=== PATIENT | female | born 1955 | race Caucasian/White ===

== ENCOUNTER 2016-04-01 11:28 | Inpatient (IN) | payer MEDICARE, BC, OTHER ==
--- NOTE | 2016-04-01 12:06 | ED ---
General Adult HPI - General Chief complaint: Dizziness Stated complaint: Dizzy Time Seen by Provider: 04/01/16 11:35 Source: patient, RN notes reviewed, old records reviewed Mode of arrival: EMS Limitations: no limitations - History of Present Illness Initial comments: This is a 60-year-old female here for evaluation. Patient presented today for evaluation of low heart rate, patient is history of overrated at this time is presenting with low heart rate and symptomatic dizziness, weakness, is feelings of passing out. Patient is on dialysis has history of dialysis and was at dialysis today when the symptoms began to show. Denies any chest pain no shortness of breath no abdominal pain. Patient states his symptoms are usually related to the level of her potassium. - Related Data Home Medications Medication Instructions Recorded Confirmed Famotidine [Pepcid] 20 mg PO DAILY 04/29/14 02/27/16 Furosemide [Lasix] 80 mg PO BID 08/04/14 02/27/16 Levothyroxine Sodium [Synthroid] 150 mcg PO [id number] 08/04/14 02/27/16 HYDROcodone/APAP 10-325MG [[place] 1 tab PO Q4H PRN 07/05/15 02/27/16 10-325] Insulin Aspart [NovoLOG] See Protocol SQ AC-TID 07/05/15 02/27/16 Prochlorperazine [Compazine] 5 - 10 mg PO Q8HR PRN 07/05/15 02/27/16 amLODIPine [Norvasc] 10 mg PO HS 07/05/15 02/27/16 clonazePAM [KlonoPIN] 0.5 mg PO BID 07/05/15 02/27/16 Aspirin EC [Ecotrin Low Dose] 81 mg PO DAILY 01/01/16 02/27/16 Escitalopram [Lexapro] 20 mg PO DAILY 01/01/16 02/27/16 Fosrenol 1000mg 1,000 mg PO AC-BID 01/01/16 02/27/16 Insulin Aspart (For Pump) [NovoLOG 0.01 unit SQ-PUMP CONTINUOUS 01/01/16 (For Pump)] Lactulose 10 gm PO DAILY PRN 01/01/16 02/27/16 Levothyroxine Sodium [Synthroid] 300 mcg PO DUBON 01/01/16 02/27/16 Nystatin 1 applic TOPICAL BID PRN 01/01/16 02/27/16 Nystatin [Nystop] 1 applic TOPICAL BID PRN 01/01/16 02/27/16 busPIRone HCL 15 mg PO BID 01/01/16 02/27/16 Calcium Acetate [Phoslo] 1,334 mg PO DIRECTED 02/27/16 02/27/16 Calcium Acetate [Phoslo] 2,001 mg PO TID-W/MEALS 02/27/16 02/27/16 Previous Rx's Medication Instructions Recorded Clopidogrel [Plavix] 75 mg PO DAILY tab 05/10/14 Nitroglycerin Sl Tabs [Nitrostat] 0.4 mg SUBLINGUAL Q5M PRN #0 tab 05/10/14 Atorvastatin [Lipitor] 80 mg PO DAILY #30 tab 01/04/16 Allergies Allergy/AdvReac Type Severity Reaction Status Date / Time adhesive Allergy Rash/Hives Verified 02/27/16 13:32 metformin Allergy SUGAR Verified 02/27/16 13:32 LEVEL INCREASE Penicillins Allergy Rash/Hives Verified 02/27/16 13:32 Review of Systems ROS Statement: Those systems with pertinent positive or pertinent negative responses have been documented in the HPI. ROS Other: All systems not noted in ROS Statement are negative. Past Medical History Past Medical History: Coronary Artery Disease (CAD), Diabetes Mellitus, Dialysis , Hyperlipidemia, Hypertension, Myocardial Infarction (NV), Osteoarthritis (OA) , Thyroid Disorder Additional Past Medical History / Comment(s): pt's stated "pt has had 16 mi's". ischemic cardiomyopathy. NV in 2005 and September 2013, 12/29/15 STRESS WNL, Hepatitis A, ALLERGIC rhinitis,NV,ESRD/DIALYSIS, CARDIO-PULMONARY ARREST , hypertensive nephrosclerosis, Hepatitis A,Vitamin D deficiency Last Myocardial Infarction Date:: 09/2013 History of Any Multi-Drug Resistant Organisms: MRSA Date of last positivie culture/infection: 2011 MDRO Source:: blood Past Surgical History: Adenoidectomy, Appendectomy, Cholecystectomy, Heart Catheterization With Stent, Hysterectomy, Tonsillectomy Additional Past Surgical History / Comment(s): mary cataracts, LAP-BAND 2004, Laparoscopic cholecystectomy, FIBULA FX has metal pins in place,Left shoulder surgery, Hemodialysis Cataract bilateral with IOL, fistula and sx to" reroute it ",gets dialysis fri-fri-fri. has insulin pump Past Anesthesia/Blood Transfusion Reactions: Motion Sickness, Postoperative Nausea & Vomiting (PONV) Date of Last Stent Placement:: 2014 Past Psychological History: Anxiety, Bipolar, Depression Additional Psychological History / Comment(s): pt lives at home with her spouse uses a walker in house and w/c outdoors. Smoking Status: Never smoker Past Alcohol Use History: Rare Past Drug Use History: None Reported - Past Family History Mother Family Medical History: Congestive Heart Failure (CHF), Diabetes Mellitus, Hypertension Father History Unknown: Yes Family Medical History: Diabetes Mellitus Brother(s) Family Medical History: Diabetes Mellitus, Hyperlipidemia Additional Family Medical History / Comment(s): Hypertension chronic kidney disease General Exam Limitations: no limitations General appearance: alert, in no apparent distress Head exam: Present: atraumatic, normocephalic, normal inspection Eye exam: Present: normal appearance, PERRL, EOMI. Absent: scleral icterus, conjunctival injection, periorbital swelling ENT exam: Present: normal exam, mucous membranes moist Neck exam: Present: normal inspection. Absent: tenderness, meningismus, lymphadenopathy Respiratory exam: Present: normal lung sounds bilaterally. Absent: wheezes, rales, rhonchi, stridor Cardiovascular Exam: Present: bradycardia, normal heart sounds. Absent: systolic murmur, diastolic murmur, rubs, gallop, clicks GI/Abdominal exam: Present: soft, normal bowel sounds. Absent: distended, tenderness, guarding, rebound, rigid Extremities exam: Present: normal inspection, full ROM, normal capillary refill. Absent: tenderness, pedal edema, joint swelling, calf tenderness Back exam: Present: normal inspection Neurological exam: Present: alert, oriented X3, CN II-XII intact Psychiatric exam: Present: normal affect, normal mood Skin exam: Present: warm, dry, intact, normal color. Absent: rash Course Vital Signs 04/01/16 11:39 Temperature 98.7 F Pulse Rate 44 L Respiratory 18 Rate Blood Pressure 123/46 O2 Sat by Pulse 98 Oximetry - Reevaluation(s) Reevaluation #1: 04/01/16 12:58 Patient still remains feeling weak, heart rate still in the 40s, maintaining blood pressure but still lightheaded and dizzy EKG Findings - EKG Comments: EKG Findings:: EKG shows sinus bradycardia rate 36, QRS 140, QTC 417 Medical Decision Making - Medical Decision Making 5-year-old female here for evaluation of bradycardia symptomatically bradycardia without syncope. Weakness and fatigue with dizziness, patient has had bradycardia in the past. The potassium, patient is dialysis patient, and from dialysis today, patient will be admitted for cardiopulmonary collapse, monitoring of electrolytes and heart rate. - Lab Data Result diagrams: 04/01/16 12:17 Lab Results 04/01/16 Range/Units 12:17 WBC 8.6 (3.8-10.6) k/uL RBC 3.86 (3.80-5.40) m/uL Hgb 11.3 L (11.4-16.0) gm/dL Hct 37.5 (34.0-46.0) % MCV 97.1 (80.0-100.0) fL MCH 29.4 (25.0-35.0) pg MCHC 30.3 L (31.0-37.0) g/dL RDW 16.0 H (11.5-15.5) % Plt Count 229 (150-450) k/uL Neutrophils % 81 % Lymphocytes % 10 % Monocytes % 6 % Eosinophils % 3 % Basophils % 0 % Neutrophils # 6.9 (1.3-7.7) k/uL Lymphocytes # 0.8 L (1.0-4.8) k/uL Monocytes # 0.5 (0-1.0) k/uL Eosinophils # 0.2 (0-0.7) k/uL Basophils # 0.0 (0-0.2) k/uL Hypochromasia Slight Anisocytosis Slight Macrocytosis Slight Critical Care Time Critical Care Time: Yes Total Critical Care Time: 31 Disposition Clinical Impression: Bradycardia, Sick sinus syndrome, Weakness generalized Disposition: ADMITTED IP TO THIS [facility] Condition: Fair Referrals: Kimberli Gar MD [Primary Care Provider] - 1-2 days
[2016-04-01 12:35] LABS: Anisocytosis Slight; Basophils % (A) 0 %; CH 30.1; CHCM 31.1; Eosinophils # (A) 0.2 k/uL (0-0.7); Eosinophils % (A) 3 %; HCT 37.5 % (34.0-46.0); HDW 2.72; HGB 11.3 gm/dL (11.4-16.0); Hypochromasia Slight; Luc # (Auto) 0.11; Luc % (Auto) 1; Lymphocytes # (A) 0.8 k/uL (1.0-4.8); Lymphocytes % (A) 10 %; MCH 29.4 pg (25.0-35.0); MCHC 30.3 g/dL (31.0-37.0); MCV 97.1 fL (80.0-100.0); Macrocytosis Slight; Monocytes # (A) 0.5 k/uL (0-1.0); Monocytes % (A) 6 %; Neutrophils # (A) 6.9 k/uL (1.3-7.7); Neutrophils % (A) 81 %; RBC 3.86 m/uL (3.80-5.40); WBC 8.6 k/uL (3.8-10.6); WBC (Perox) 9.19
--- NOTE | 2016-04-01 12:42 | XR ---
EXAMINATION TYPE: XR chest 2V DATE OF EXAM: 04/01/2016 12:36 PM COMPARISON: 02/28/2016 INDICATION: Weakness, potassium abnormality TECHNIQUE: Frontal and lateral views of the chest are obtained. FINDINGS: The heart size is normal. The pulmonary vasculature is normal. The lungs are clear. Previous right perihilar infiltrate has resolved IMPRESSION: 1. No acute pulmonary process.
[2016-04-01 13:03] LABS: Creatine Kinase 43 U/L (30-135)
[2016-04-01 13:30] LABS: Creatine Kinase MB 0.6 ng/mL (0.0-2.4); Troponin I <0.012 ng/mL (0.000-0.034)
[2016-04-01 14:08] LABS: Calcium 8.7 mg/dL (8.4-10.2); Magnesium 2.9 mg/dL (1.6-2.3); Phosphorous 4.8 mg/dL (2.5-4.5); Total Bilirubin 0.7 mg/dL (0.2-1.3)
[2016-04-01 14:13] LABS: Potassium 6.5 mmol/L (3.5-5.1)
[2016-04-01] MEDS ORDERED: DEXTROSE 50%-WATER 50 ML SYRINGE IVP STA (14:39)
[2016-04-01] MEDS ORDERED: INSULIN REGULAR 100 UNIT/ML VIAL IV ONE (14:39)
[2016-04-01] MEDS ORDERED: SODIUM POLYSTYRENE SULFONATE 15 GM/60 ML BOTTLE PO STA (14:39)
[2016-04-01] MEDS ORDERED: LACTULOSE 20 GM/30 ML CUP PO PRN (14:49)
[2016-04-01] MEDS ORDERED: NITROGLYCERIN SL TABS 0.4 MG TAB SUBLINGUAL PRN (14:49)
--- NOTE | 2016-04-01 14:49 | P.HPIM ---
History of Present Illness H&P Date: 04/01/16 Chief Complaint: Lightheaded, severe bradycardia heart rate in the 30s The patient is a pleasant 59-year-old female patient who sees Dr. Gar and Dr. JAE Jc as an outpatient with a past medical history significant for coronary artery disease and prior coronary artery stenting with the patient underwent stenting of the proximal left anterior descending artery as well as ramus intermedius in April 2014, diabetes type 2, end stage renal disease on hemodialysis Friday, as well as dyslipidemia She presented to the emergency room secondary to lightheadedness and dizziness. Prior to be she was on her way to her usual dialysis time Friday and was complaining of lightheadedness when standing up did not resolve when she was sitting down. Patient did not pass out patient to complain of any chest pain. Patient denies any palpitations however she was worried about her heart rate being low. In the dialysis unit prior to starting her therapies. Her heart rate was in the 40s they have sent her to the emergency room for further evaluation and treatment. Dialysis was initiated today. She normally runs on the high 50s being followed closely by Dr. JAE Jc no plans for any pacemaker from that time. Potassium use with culprit for her bradycardia. She has some GI losses in the form of diarrhea 2 days prior to admission. Diarrhea resolved coming into the emergency room as of yesterday. Patient did not miss any of her dialysis her last dialysis was Friday, scheduled. In the emergency room potassium was 6.5, sodium 134, creatinine 8.3, hemoglobin 11.3, double basic count 8.6. ekg show Patient will be admitted to selective care, nephrology and cardiology consultations. It is Kayexelate will given today as per ER team, or patient will be dialyzed later today Review of Systems Constitutional: Reports as per HPI, Denies anorexia, Denies chills, Denies chronic headaches, Denies chronic pain, Denies daytime sleepiness, Denies fatigue, Denies fever, Denies lethargy, Denies malaise, Denies night sweats, Denies poor appetite, Denies sweats, Denies weakness, Denies weight gain, Denies weight loss Ears, nose, mouth and throat: Reports as per HPI, Denies ant. neck pain, Denies bleeding gums, Denies dental pain, Denies dysphagia, Denies epistaxis, Denies headache, Denies hoarseness, Denies mouth pain, Denies nasal congestion, Denies nasal discharge, Denies neck fullness/pressure, Denies neck lump, Denies nose pain, Denies odynophagia, Denies post-nasal drip, Denies sinus pain, Denies sinus pressure, Denies swelling in mouth, Denies swelling in throat, Denies sore throat, Denies vertigo, Denies voice changes Cardiovascular: Reports as per HPI, Reports lightheadedness Respiratory: Reports as per HPI, Denies congestion, Denies cough, Denies cough with sputum, Denies dyspnea, Denies excessive sputum, Denies hemoptysis, Denies home oxygen, Denies pain, Denies pain on inspiration, Denies pleurisy, Denies respiratory infections, Denies sleep apnea, Denies snoring, Denies wheezing Gastrointestinal: Reports as per HPI, Denies abdominal pain, Denies belching, Denies bloating, Denies BRBPR, Denies change in bowel habits, Denies coffee ground emesis, Denies constipation, Denies diarrhea, Denies dyspepsia, Denies early satiety, Denies excessive gas, Denies heartburn, Denies hematemesis, Denies hematochezia, Denies indigestion, Denies jaundice, Denies lactose intolerance, Denies loss of appetite, Denies melena, Denies nausea, Denies vomiting Genitourinary: Reports as per HPI, Denies abnormal vaginal bleeding, Denies decreased libido, Denies difficulty conceiving, Denies difficulty voiding, Denies dysmenorrhea, Denies dyspareunia, Denies dysuria, Denies flank pain, Denies genital sores, Denies hematuria, Denies hot flashes, Denies incomplete emptying, Denies kidney stones, Denies menorrhagia, Denies mixed incontinence, Denies nocturia, Denies pelvic pain, Denies post void dribbling, Denies , Denies prolapse symptoms, Denies stress incontinence, Denies urge incontinence , Denies urgency, Denies urinary frequency, Denies vaginal discharge, Denies vaginal dryness, Denies vaginal itching, Denies vaginal odor Menstruation: Reports as per HPI, Reports postmenopausal, Denies amenorrhea, Denies amenorrhea on BC, Denies currently menstrual, Denies cycle < 21 days, Denies cycle > 35 days, Denies cycle variable, Denies menses 1-7 days, Denies menses 8 or > days, Denies menses variable, Denies period heavy, Denies period light, Denies period normal, Denies period spotting, Denies post hysterectomy, Denies premenarcheal Musculoskeletal: Reports as per HPI Integumentary: Reports as per HPI, Denies acne, Denies boils, Denies brittle nails, Denies change in hair/nails, Denies color changes, Denies darkening of skin, Denies depigmentation, Denies dryness, Denies foot/leg ulcers, Denies growths, Denies hirsutism, Denies lesions, Denies onychomycosis, Denies pruritus , Denies rash, Denies sores, Denies striae, Denies unusual bruising, Denies wounds Neurological: Reports as per HPI, Denies aphasia, Denies ataxia, Denies balance difficulties, Denies burning pain, Denies change in mentation, Denies change in smell/taste, Denies change in speech, Denies confusion, Denies convulsions, Denies double vision, Denies gait dysfunction, Denies head injury, Denies headaches, Denies hearing difficulties, Denies lack of coordination, Denies loss of vision, Denies memory loss, Denies migraines, Denies motor disturbance, Denies numbness, Denies paralysis, Denies paresthesias, Denies seizures, Denies sensory deficit, Denies spasticity, Denies syncope, Denies tic, Denies tingling , Denies transient paralysis, Denies tremors, Denies vertigo, Denies weakness, Denies visual changes Psychiatric: Reports as per HPI, Denies anhedonia, Denies anxiety, Denies anxiety attacks, Denies change in appetite, Denies change in libido, Denies change in sleep habits, Denies confusion, Denies depression, Denies difficulty concentrating, Denies disorientation, Denies hallucinations, Denies hopelessness , Denies hypersomnia, Denies insomnia, Denies irritability, Denies memory loss, Denies mood swings, Denies paranoia, Denies sadness/tearfulness, Denies sleep disturbances, Denies suicidal ideation Endocrine: Reports as per HPI, Denies cold intolerance, Denies deepening of the voice, Denies excessive sweating, Denies excessive thirst, Denies fatigue, Denies flushing, Denies heat intolerance, Denies high blood sugars, Denies increase in ring/shoe/hat size, Denies low blood sugars, Denies nocturia, Denies palpitations, Denies polydipsia, Denies polyphagia, Denies polyuria, Denies proptosis, Denies recent glucocorticoid use, Denies thyroid mass, Denies weight change Hematologic/Lymphatic: Reports as per HPI, Denies easy bleeding, Denies easy bruising, Denies lymphadenopathy, Denies lymphedema, Denies thrombophilia Allergic/Immunologic: Reports as per HPI, Denies allergic rhinitis, Denies anaphylaxis, Denies angioedema, Denies gluten intolerance, Denies persistent infections, Denies seasonal allergies, Denies urticaria, Denies wheezing Past Medical History Past Medical History: Coronary Artery Disease (CAD), Diabetes Mellitus, Dialysis , Hyperlipidemia, Hypertension, Myocardial Infarction (TN), Osteoarthritis (OA) , Thyroid Disorder Additional Past Medical History / Comment(s): pt's stated "pt has had 16 mi's". ischemic cardiomyopathy. TN in 2005 and September 2013, 12/29/15 STRESS WNL, Hepatitis A, ALLERGIC rhinitis,TN,ESRD/DIALYSIS, CARDIO-PULMONARY ARREST , hypertensive nephrosclerosis, Hepatitis A,Vitamin D deficiency Last Myocardial Infarction Date:: 09/2013 History of Any Multi-Drug Resistant Organisms: MRSA Date of last positivie culture/infection: 2011 MDRO Source:: blood Past Surgical History: Adenoidectomy, Appendectomy, Cholecystectomy, Heart Catheterization With Stent, Hysterectomy, Tonsillectomy Additional Past Surgical History / Comment(s): mary cataracts, LAP-BAND 2004, Laparoscopic cholecystectomy, FIBULA FX has metal pins in place,Left shoulder surgery, Hemodialysis Cataract bilateral with IOL, fistula and sx to" reroute it ",gets dialysis fri-fri-fri. has insulin pump Past Anesthesia/Blood Transfusion Reactions: Motion Sickness, Postoperative Nausea & Vomiting (PONV) Date of Last Stent Placement:: 2014 Past Psychological History: Anxiety, Bipolar, Depression Additional Psychological History / Comment(s): pt lives at home with her spouse uses a walker in house and w/c outdoors. Smoking Status: Never smoker Past Alcohol Use History: Rare Past Drug Use History: None Reported - Past Family History Mother Family Medical History: Congestive Heart Failure (CHF), Diabetes Mellitus, Hypertension Father History Unknown: Yes Family Medical History: Diabetes Mellitus Brother(s) Family Medical History: Diabetes Mellitus, Hyperlipidemia Additional Family Medical History / Comment(s): Hypertension chronic kidney disease Medications and Allergies Home Medications Medication Instructions Recorded Confirmed Type Famotidine [Pepcid] 20 mg PO DAILY 04/29/14 04/01/16 History Furosemide [Lasix] 80 mg PO BID 08/04/14 04/01/16 History Levothyroxine Sodium [Synthroid] 150 mcg PO MOTUWETHFRSA 08/04/14 04/01/16 History HYDROcodone/APAP 10-325MG [Manor 1 tab PO Q4H PRN 07/05/15 04/01/16 History 10-325] Prochlorperazine [Compazine] 5 - 10 mg PO Q8HR PRN 07/05/15 04/01/16 History amLODIPine [Norvasc] 10 mg PO HS 07/05/15 04/01/16 History clonazePAM [KlonoPIN] 0.5 mg PO BID 07/05/15 04/01/16 History Aspirin EC [Ecotrin Low Dose] 81 mg PO DAILY 01/01/16 04/01/16 History Escitalopram [Lexapro] 20 mg PO DAILY 01/01/16 04/01/16 History Fosrenol 1000mg 1,000 mg PO AC-BID 01/01/16 04/01/16 History Insulin Aspart (For Pump) [NovoLOG 0.01 unit SQ-PUMP CONTINUOUS 01/01/16 History (For Pump)] Lactulose 10 gm PO DAILY PRN 01/01/16 04/01/16 History Levothyroxine Sodium [Synthroid] 300 mcg PO DUBON 01/01/16 04/01/16 History Nystatin 1 applic TOPICAL BID PRN 01/01/16 04/01/16 History Nystatin [Nystop] 1 applic TOPICAL BID PRN 01/01/16 04/01/16 History busPIRone HCL 15 mg PO BID 01/01/16 04/01/16 History Calcium Acetate [Phoslo] 1,334 mg PO DIRECTED 02/27/16 04/01/16 History Calcium Acetate [Phoslo] 2,001 mg PO TID-W/MEALS 02/27/16 04/01/16 History Liquacel 1 dose PO DAILY 04/01/16 04/01/16 History Metoprolol Tartrate [Lopressor] 12.5 mg PO QAM 04/01/16 04/01/16 History Renaplex-D 1 tab PO DAILY 04/01/16 04/01/16 History lamoTRIgine [LaMICtal] 75 mg PO BID 04/01/16 04/01/16 History Allergies Allergy/AdvReac Type Severity Reaction Status Date / Time adhesive Allergy Rash/Hives Verified 02/27/16 13:32 metformin Allergy SUGAR Verified 02/27/16 13:32 LEVEL INCREASE Penicillins Allergy Rash/Hives Verified 02/27/16 13:32 Physical Exam Vitals: Vital Signs Pulse Resp BP Pulse Ox 04/01/16 13:12 45 L 20 119/45 98 - Constitutional General appearance: cooperative, morbidly obese - EENT Eyes: anicteric sclerae, EOMI, PERRLA, dentition normal, normal appearance ENT: no hard of hearing, hearing grossly normal, NA/AT, normal oropharynx, no other, no pharyngeal erythema, no thrush, no tonsillar exudates, no tonsillar swelling - Neck Neck: no lymphadenopathy, normal ROM, no other, no rigidity, no stridor, no thyromegaly - Respiratory Respiratory: bilateral: CTA, negative: dullness, rales, rhonchi, wheezing, prolonged expiration - Cardiovascular Heart rate: 36 Rhythm: regular Heart sounds: normal: S1, S2 Abnormal Heart Sounds: no systolic murmur, no diastolic murmur, no rub, no S3 Gallop, no S4 Gallop, no click, no other leg Peripheral Edema: bilateral: Trace - Gastrointestinal General gastrointestinal: normal bowel sounds, soft - Integumentary Integumentary: normal, normal turgor - Neurologic Neurologic: CNII-XII intact, focal deficits (none) - Musculoskeletal Musculoskeletal: generalized weakness, strength equal bilaterally - Psychiatric Psychiatric: A&O x's 3, appropriate affect, intact judgment & insight Results CBC & Chem 7: 04/01/16 12:17 04/01/16 13:23 Labs: Abnormal Lab Results - Last 24 Hours (Table) 04/01/16 Range/Units 13:23 Sodium 134 L (137-145) mmol/L Potassium 6.5 H* (3.5-5.1) mmol/L BUN 59 H (7-17) mg/dL Creatinine 8.34 H* (0.52-1.04) mg/dL Glucose 157 H (74-99) mg/dL Phosphorus 4.8 H (2.5-4.5) mg/dL Magnesium 2.9 H (1.6-2.3) mg/dL Laboratory Results WBC 8.6 k/uL (3.8-10.6) 04/01/16 12: RBC 3.86 m/uL (3.80-5.40) 04/01/16 12:17 Hgb 11.3 gm/dL (11.4-16.0) L 04/01/16 12: Hct 37.5 % (34.0-46.0) 04/01/16 12: MCV 97.1 fL (80.0-100.0) 04/01/16 12: MCH 29.4 pg (25.0-35.0) 04/01/16 12: MCHC 30.3 g/dL (31.0-37.0) L 04/01/16 12: RDW 16.0 % (11.5-15.5) H 04/01/16 12: Plt Count 229 k/uL (150-450) 04/01/16 12:17 Neutrophils % 81 % 04/01/16 12:17 Lymphocytes % 10 % 04/01/16 12:17 Monocytes % 6 % 04/01/16 12:17 Eosinophils % 3 % 04/01/16 12:17 Basophils % 0 % 04/01/16 12:17 Neutrophils # 6.9 k/uL (1.3-7.7) 04/01/16 12:17 Lymphocytes # 0.8 k/uL (1.0-4.8) L 04/01/16 12: Monocytes # 0.5 k/uL (0-1.0) 04/01/16 12:17 Eosinophils # 0.2 k/uL (0-0.7) 04/01/16 12:17 Basophils # 0.0 k/uL (0-0.2) 04/01/16 12:17 Hypochromasia Slight 04/01/16 12:17 Anisocytosis Slight 04/01/16 12:17 Macrocytosis Slight 04/01/16 12:17 Sodium 134 mmol/L (137-145) L 04/01/16 13:23 Potassium 6.5 mmol/L (3.5-5.1) H* 04/01/16 13:23 Chloride 98 mmol/L (98-107) 04/01/16 13:23 Carbon Dioxide 23 mmol/L (22-30) 04/01/16 13:23 Anion Gap 13 mmol/L 04/01/16 13:23 BUN 59 mg/dL (7-17) H 04/01/16 13:23 Creatinine 8.34 mg/dL (0.52-1.04) H* 04/01/16 13:23 Est GFR (MDRD) Af Amer 6 (>60 ml/min/1.73 sqM) 04/01/16 13:23 Est GFR (MDRD) Non-Af 5 (>60 ml/min/1.73 sqM) 04/01/16 13:23 Glucose 157 mg/dL (74-99) H 04/01/16 13:23 Calcium 8.7 mg/dL (8.4-10.2) 04/01/16 13:23 Phosphorus 4.8 mg/dL (2.5-4.5) H 04/01/16 13:23 Magnesium 2.9 mg/dL (1.6-2.3) H 04/01/16 13:23 Total Bilirubin 0.7 mg/dL (0.2-1.3) 04/01/16 13:23 AST 33 U/L (14-36) 04/01/16 13:23 ALT 25 U/L (9-52) 04/01/16 13:23 Alkaline Phosphatase 80 U/L (38-126) 04/01/16 13:23 Ammonia <9 umol/L (<30) 04/01/16 13:23 Total Creatine Kinase 43 U/L (30-135) 04/01/16 12:17 CK-MB (CK-2) 0.6 ng/mL (0.0-2.4) 04/01/16 12:17 CK-MB (CK-2) Rel Index 1.4 04/01/16 12:17 Troponin I <0.012 ng/mL (0.000-0.034) 04/01/16 12:17 Total Protein 7.0 g/dL (6.3-8.2) 04/01/16 13:23 Albumin 3.9 g/dL (3.5-5.0) 04/01/16 13:23 Thrombosis Risk Factor Assmnt - DVT/VTE Prophylaxis DVT/VTE Prophylaxis: Pharmacologic Prophylaxis ordered - Choose All That Apply Each Factor Represents 1 point: Obesity (BMI >25), Varicose veins Each Risk Factor Represents 2 Points: Age 61-74 years, Patient confined to bed Thrombosis Risk Factor Assessment Total Risk Factor Score: 6 Assessment and Plan Plan: 1. Lightheadedness with bradycardia, sick sinus syndrome, symptomatic. Patient currently requires adjustments of her hyperkalemia, Kayexalate was given emergency room, patient would be seen consultation by cardiology and nephrology for the scheduled dialysis. Patient might need emergent dialysis she would her symptoms persist. Patient will be monitored in the selective care depending on her potassium levels. ICU requires 7.5 or above potassium levels per protocol. Standby for a temporary pacemaker 2. Symptomatic hyperkalemia secondary to end-stage renal disease maintained on hemodialysis. Kayexalate, and dialysis to the remediate the current Abnormality 2. CAD: Post PCI with angioplasty and stent to stent placement or primary this year had been seeing cardiology Dr. DOLLY Jc regular basis . During this hospitalization upon discharge no medication changes were made she is to continue on double antiplatelet agents statins and beta blockers. 3 chronic kidney disease on hemodialysis 3 times a week consult nephrology continue dialysis as outpatient to resume treatment as scheduled tomorrow Friday schedule. 4 type 2 diabetes on insulin pump: Continue insulin via pump continue Accu-Chek with sliding scales coverage as well. 5 hyperlipidemia: Continue Lipitor at 40 mg daily changes were made. 6 asthma/COPD: Continue Pulmicort along with DuoNeb 4 times a day. 7 hypothyroidism: Continue levothyroxine with 50 g daily. 8. Known history off anxiety and depression are stable on Lexapro and BuSpar along with Clonopin no changes were made 9 GERD/GI prophylaxis: Continue Pepcid 20 mg daily 10. Hypertensive cardiac vessel disease on amlodipine 10 mg daily Lasix 80 mg twice a day lisinopril 40 mg at bedtime. 11 Chronic pain syndrome: Resume hydrocodone
[2016-04-01] MEDS ORDERED: Insulin Aspart (For Pump) 100 UNIT/ML VIAL SQ-PUMP SCH (15:00)
[2016-04-01] MEDS ORDERED: CALCIUM ACETATE 667 MG CAP PO PRN (15:00)
[2016-04-01 15:02] LABS: Glucose,Whole Blood 140 mg/dL (75-99)
[2016-04-01] MEDS: FAMOTIDINE 20 MG TAB PO SCH (16:16)
[2016-04-01] MEDS: ESCITALOPRAM 20 MG TAB PO SCH (16:16)
[2016-04-01] MEDS: LEVOTHYROXINE 75 MCG TAB PO SCH (16:16)
[2016-04-01] MEDS: CLOPIDOGREL 75 MG TAB PO SCH (16:16)
[2016-04-01] MEDS: ATORVASTATIN 80 MG TAB PO SCH (16:17)
[2016-04-01] MEDS: HYDROcodone/APAP 10-325MG 1 EACH TAB PO PRN (16:21)
[2016-04-01] MEDS: FUROSEMIDE 80 MG TAB PO SCH (16:22)
[2016-04-01] MEDS: CALCIUM ACETATE 667 MG CAP PO SCH (16:24)
[2016-04-01] MEDS: SEVELAMER 800 MG TAB PO SCH (16:25)
[2016-04-01 17:14] LABS: Glucose,Whole Blood 163 mg/dL (75-99)
[2016-04-01 18:46] LABS: Hemoglobin A1C 6.9 % (4.2-6.1)
[2016-04-01] MEDS: INSULIN PUMP MEAL BOLUS 1 UNIT MISC MISCELLANE SCH (18:47)
[2016-04-01 20:45] LABS: Glucose,Whole Blood 85 mg/dL (75-99)
[2016-04-01] MEDS: ONDANSETRON 4 MG/2 ML VIAL IVP PRN (20:45)
[2016-04-01] MEDS ORDERED: amLODIPine 5 MG TAB PO SCH (21:00)
[2016-04-02] MEDS: clonazePAM 0.5 MG TAB PO SCH ×3 (00:02→19:57)
[2016-04-02] MEDS: busPIRone HCl 5 MG TAB PO SCH ×3 (00:03→19:53)
[2016-04-02] MEDS: lamoTRIgine 25 MG TAB PO SCH ×3 (00:04→19:53)
[2016-04-02] MEDS: INSULIN PUMP MEAL BOLUS 1 UNIT MISC MISCELLANE SCH ×4 (00:13→17:56)
[2016-04-02] MEDS: amLODIPine 10 MG TAB PO SCH ×2 (00:13→19:53)
[2016-04-02 05:55] LABS: Glucose,Whole Blood 152 mg/dL (75-99)
[2016-04-02] MEDS: CALCIUM ACETATE 667 MG CAP PO SCH ×3 (06:24→17:54)
[2016-04-02] MEDS: SEVELAMER 800 MG TAB PO SCH ×2 (06:26→17:54)
[2016-04-02] MEDS: LEVOTHYROXINE 75 MCG TAB PO SCH (06:26)
--- NOTE | 2016-04-02 08:41 | P.CRDCN ---
History of Present Illness Consult date: 04/02/16 Requesting physician: Luiza Estrella Reason for Consult (text): Bradycardia Chief complaint: Dizziness History of present illness: This is a pleasant 60-year-old female with history of end-stage renal disease on hemodialysis, coronary artery disease with multivessel PCI, hypertension, diabetes, obesity, hypothyroidism, she presents to the hospital with symptoms of dizziness and lightheadedness. Patient states that yesterday morning she noted she was quite dizzy and lightheaded even prior to going to dialysis. At the dialysis unit she was extremely dizzy and asked the staff to check her blood pressure and heart rate. Heart rate at that time was noted to be around 40. Patient has had noted bradycardia in the past and it was usually related to hyperkalemia. Her potassium yesterday was 6.5, BUN 59 and creatinine 8.3. CBC, hemoglobin 11.3, WBC 8.6. Magnesium level 2.9. Troponin 0.012. EKG on arrival showed a sinus bradycardia with a right bundle branch block pattern bifascicular block heart rate in 30s this morning patient's is in a sinus bradycardia with a heart rate of 60. Blood pressure 125/50, heart rate 60 this morning. Patient was seen and examined, denies any dizziness this morning. She was taking Lopressor 12-1/2 mg 1 tablet daily at home, this is currently been placed on hold. Past Medical History Past Medical History: Coronary Artery Disease (CAD), Diabetes Mellitus, Dialysis , Hyperlipidemia, Hypertension, Myocardial Infarction (VT), Osteoarthritis (OA) , Thyroid Disorder Additional Past Medical History / Comment(s): pt's stated "pt has had 16 mi's". ischemic cardiomyopathy. VT in 2005 and September 2013, 12/29/15 STRESS WNL, Hepatitis A, ALLERGIC rhinitis,[place],ESRD/DIALYSIS, CARDIO-PULMONARY ARREST , hypertensive nephrosclerosis, Hepatitis A,Vitamin D deficiency Last Myocardial Infarction Date:: 09/2013 History of Any Multi-Drug Resistant Organisms: MRSA Date of last positivie culture/infection: 2011 MDRO Source:: blood Past Surgical History: Adenoidectomy, Appendectomy, Cholecystectomy, Heart Catheterization With Stent, Hysterectomy, Tonsillectomy Additional Past Surgical History / Comment(s): mary cataracts, LAP-BAND 2004, Laparoscopic cholecystectomy, FIBULA FX has metal pins in place,Left shoulder surgery, Hemodialysis Cataract bilateral with IOL, fistula and sx to" reroute it ",gets dialysis mon-fri-fri. has insulin pump Past Anesthesia/Blood Transfusion Reactions: Motion Sickness, Postoperative Nausea & Vomiting (PONV) Date of Last Stent Placement:: 2014 Past Psychological History: Anxiety, Bipolar, Depression Additional Psychological History / Comment(s): pt lives at home with her spouse uses a walker in house and w/c outdoors. Smoking Status: Never smoker Past Alcohol Use History: Rare Past Drug Use History: None Reported - Past Family History Mother Family Medical History: Congestive Heart Failure (CHF), Diabetes Mellitus, Hypertension Father History Unknown: Yes Family Medical History: Diabetes Mellitus Brother(s) Family Medical History: Diabetes Mellitus, Hyperlipidemia Additional Family Medical History / Comment(s): Hypertension chronic kidney disease Medications and Allergies Home Medications Medication Instructions Recorded Confirmed Type Famotidine [Pepcid] 20 mg PO DAILY 04/29/14 04/01/16 History Furosemide [Lasix] 80 mg PO BID 08/04/14 04/01/16 History Levothyroxine Sodium [Synthroid] 150 mcg PO MOTUWETHFRSA 08/04/14 04/01/16 History HYDROcodone/APAP 10-325MG [[place] 1 tab PO Q4H PRN 07/05/15 04/01/16 History 10-325] Prochlorperazine [Compazine] 5 - 10 mg PO Q8HR PRN 07/05/15 04/01/16 History amLODIPine [Norvasc] 10 mg PO HS 07/05/15 04/01/16 History clonazePAM [KlonoPIN] 0.5 mg PO BID 07/05/15 04/01/16 History Aspirin EC [Ecotrin Low Dose] 81 mg PO DAILY 01/01/16 04/01/16 History Escitalopram [Lexapro] 20 mg PO DAILY 01/01/16 04/01/16 History Fosrenol 1000mg 1,000 mg PO AC-BID 01/01/16 04/01/16 History Insulin Aspart (For Pump) [NovoLOG 0.01 unit SQ-PUMP CONTINUOUS 01/01/16 History (For Pump)] Lactulose 10 gm PO DAILY PRN 01/01/16 04/01/16 History Levothyroxine Sodium [Synthroid] 300 mcg PO BRIONES 01/01/16 04/01/16 History Nystatin 1 applic TOPICAL BID PRN 01/01/16 04/01/16 History Nystatin [Nystop] 1 applic TOPICAL BID PRN 01/01/16 04/01/16 History busPIRone HCL 15 mg PO BID 01/01/16 04/01/16 History Calcium Acetate [Phoslo] 1,334 mg PO DIRECTED 02/27/16 04/01/16 History Calcium Acetate [Phoslo] 2,001 mg PO TID-W/MEALS 02/27/16 04/01/16 History Liquacel 1 dose PO DAILY 04/01/16 04/01/16 History Metoprolol Tartrate [Lopressor] 12.5 mg PO QAM 04/01/16 04/01/16 History Renaplex-D 1 tab PO DAILY 04/01/16 04/01/16 History lamoTRIgine [LaMICtal] 75 mg PO BID 04/01/16 04/01/16 History Allergies Allergy/AdvReac Type Severity Reaction Status Date / Time adhesive Allergy Rash/Hives Verified 02/27/16 13:32 metformin Allergy SUGAR Verified 02/27/16 13:32 LEVEL INCREASE Penicillins Allergy Rash/Hives Verified 02/27/16 13:32 Physical Exam Vitals: Vital Signs Temp Pulse Pulse Resp BP BP Pulse Ox 04/02/16 04:00 98.4 F 61 16 125/52 96 04/02/16 00:00 98.0 F 63 16 130/66 96 04/01/16 20:00 98.2 F 57 L 18 160/70 98 04/01/16 16:00 98 F 41 L 18 119/47 97 04/01/16 15:09 46 L 18 99/45 98 04/01/16 13:12 45 L 20 119/45 98 Intake and Output 04/01/16 04/02/16 04/02/16 22:59 06:59 14:59 Intake Total 180 300 Output Total 0 Balance 180 300 Intake: Oral 180 300 Output: Urine 0 Other: # Voids 0 # Bowel Movements 0 Weight 127.6 kg PHYSICAL EXAMINATION: HEENT: Head is atraumatic, normocephalic. Pupils equal, round. Neck is supple. There is no elevated jugular venous pressure. HEART EXAMINATION: Heart S1 and S2 systolic murmur is heard. CHEST EXAMINATION: Lungs are clear to auscultation and precussion. No chest wall tenderness is noted on palpation or with deep breathing. ABDOMEN: Soft, obese, nontender. Bowel sounds are heard. No organomegaly noted. EXTREMITIES: 2+ peripheral pulses with no evidence of peripheral edema and no calf tenderness noted. NEUROLOGIC patient is awake, alert and oriented -3. . Results 04/01/16 12:17 04/02/16 08:07 Cardiac Enzymes 04/01/16 Range/Units 13:23 AST 33 (14-36) U/L Comprehensive Metabolic Panel 04/01/16 Range/Units 13:23 Sodium 134 L (137-145) mmol/L Potassium 6.5 H* (3.5-5.1) mmol/L Chloride 98 (98-107) mmol/L Carbon Dioxide 23 (22-30) mmol/L BUN 59 H (7-17) mg/dL Creatinine 8.34 H* (0.52-1.04) mg/dL Glucose 157 H (74-99) mg/dL Calcium 8.7 (8.4-10.2) mg/dL AST 33 (14-36) U/L ALT 25 (9-52) U/L Alkaline Phosphatase 80 (38-126) U/L Total Protein 7.0 (6.3-8.2) g/dL Albumin 3.9 (3.5-5.0) g/dL Current Medications Generic Name Dose Route Start Last Admin Trade Name Freq PRN Reason Stop Dose Admin Acetaminophen/Hydrocodone Bitart 1 each 04/01/16 14:49 04/01/16 16:21 Zenia 10 PO 1 each Q4H PRN Administration Pain Amlodipine Besylate 10 mg 04/01/16 21:00 04/02/16 00:13 Norvasc PO 10 mg HS CYNTHIA Administration Aspirin 81 mg 04/02/16 09:00 Aspirin PO DAILY CYNTHIA Atorvastatin Calcium 80 mg 04/01/16 15:00 04/01/16 16:17 Lipitor PO Not Given DAILY CYNTHIA Buspirone HCl 15 mg 04/01/16 21:00 04/02/16 00:03 Buspar PO 15 mg BID CYNTHIA Administration Calcium Acetate 1,334 mg 04/01/16 15:00 Phoslo PO QID PRN WITH SNACKS Calcium Acetate 2,001 mg 04/01/16 17:30 04/02/16 06:24 Phoslo PO 2,001 mg TID-W/MEALS CYNTHIA Administration Clonazepam 0.5 mg 04/01/16 21:00 04/02/16 00:02 Klonopin PO 0.5 mg BID CYNTHIA Administration Clopidogrel Bisulfate 75 mg 04/01/16 15:00 04/01/16 16:16 Plavix PO Not Given DAILY [facility] Enoxaparin Sodium 40 mg 04/02/16 09:00 Lovenox SQ DAILY [facility] Escitalopram Oxalate 20 mg 04/01/16 15:00 04/01/16 16:16 Lexapro PO Not Given DAILY [facility] Famotidine 20 mg 04/01/16 15:00 04/01/16 16:16 Pepcid PO Not Given DAILY [facility] Furosemide 80 mg 04/01/16 16:00 04/01/16 16:22 Lasix PO 80 mg BID@0900,1600 [facility] Administration Lactulose 10 gm 04/01/16 14:49 Cephulac PO DAILY PRN Constipation Lamotrigine 75 mg 04/01/16 21:00 04/02/16 00:04 Lamictal PO 75 mg BID [facility] Administration Levothyroxine Sodium 150 mcg 04/01/16 15:00 04/02/16 06:26 Synthroid PO 150 mcg MoTuWeThFrSa@0630 [facility] Administration Levothyroxine Sodium 300 mcg 04/07/16 06:30 Synthroid PO Briones@0630 [facility] Miscellaneous Information 1 each 04/02/16 09:00 Insulin Pump Basal Rates MISCELLANE Q24HR [facility] Protocol Miscellaneous Information 1 unit 04/01/16 17:30 04/02/16 06:27 Insulin Pump Meal Bolus MISCELLANE 1 unit ACHS [facility] Administration Protocol Multivit/Ca Carb/B Cmplx/FA/Prenat 1 each 04/02/16 12:00 Nephrocaps PO 1200 [facility] Nitroglycerin 0.4 mg 04/01/16 14:49 Nitrostat SUBLINGUAL Q5M PRN Chest Pain Ondansetron HCl 4 mg 04/01/16 20:15 04/01/16 20:45 Zofran IVP 4 mg Q8HR PRN Administration Nausea And Vomiting Sevelamer Carbonate 3,200 mg 04/01/16 17:30 04/02/16 06:26 Renvela PO 3,200 mg AC-BID CYNTHIA Administration Intake and Output 04/01/16 04/02/16 04/02/16 22:59 06:59 14:59 Intake Total 180 300 Output Total 0 Balance 180 300 Intake: Oral 180 300 Output: Urine 0 Other: # Voids 0 # Bowel Movements 0 Weight 127.6 kg 04/01/16 13:23 EKG Interpretations (text) EKG shows a sinus bradycardia with A-V dissociation, right bundle branch block pattern. Assessment and Plan Plan: Assessment and plan #1 symptomatic bradycardia, EKG shows trifascicular block. This morning patient is in sinus bradycardia with a first-degree AV block. Potassium 6.5 in the emergency room, Kayexalate was given. Patient was on Lopressor 12-1/2 mg 1 tablet daily at home, this is currently been put on hold. #2 end-stage renal disease on hemodialysis #3 known history of coronary artery disease with multivessel PCI #4 diabetes #5 hypertension #6 hyperlipidemia #7 obesity #8 hypothyroidism #9 asthma, COPD Plan We will check a free T4 and a TSH level. Obtain echocardiogram with Doppler study. Patient does have evidence of trifascicular block and is quite symptomatic. It was explained to her that she may need to undergo implantation of a permanent pacemaker. The risks and the benefits were explained in detail. Further recommendations to follow. DNP note has been reviewed, I agree with a documented findings and plan of care. Patient was seen and examined.
[2016-04-02] MEDS ORDERED: ENOXAPARIN 40 MG/0.4 ML SYRINGE SQ SCH (09:00)
[2016-04-02] MEDS: ONDANSETRON 4 MG/2 ML VIAL IVP PRN ×2 (09:03→19:54)
[2016-04-02 09:08] LABS: Calcium 8.8 mg/dL (8.4-10.2); Magnesium 2.3 mg/dL (1.6-2.3); Potassium 4.7 mmol/L (3.5-5.1)
[2016-04-02] MEDS: FUROSEMIDE 80 MG TAB PO SCH ×2 (09:34→17:54)
[2016-04-02] MEDS: ATORVASTATIN 80 MG TAB PO SCH (09:35)
[2016-04-02] MEDS: FAMOTIDINE 20 MG TAB PO SCH (09:35)
[2016-04-02] MEDS: ASPIRIN 81 MG CHEW PO SCH (09:35)
[2016-04-02] MEDS: CLOPIDOGREL 75 MG TAB PO SCH (09:35)
[2016-04-02] MEDS: ESCITALOPRAM 20 MG TAB PO SCH (09:35)
[2016-04-02] MEDS: INSULIN PUMP BASAL RATES 1 EACH MISC MISCELLANE SCH (09:48)
--- NOTE | 2016-04-02 09:56 | P.NPCON ---
History of Present Illness - Reason for Consult end stage renal disease - History of Present Illness Reason for consultation: End-stage renal disease History of present illness: Patient is a 60-year-old female seen in renal consultation for end- stage renal disease. She is maintained on hemodialysis on a Friday schedule. Patient has history of morbid obesity and coronary artery disease and presented to the hospital with generalized weakness and dizziness that started when she woke up yesterday morning. When she presented for dialysis heart rate was 40 and she was sent to the hospital for further care. Her potassium was found to be 6.5 for which she did undergo hemodialysis last night. Currently she denies any chest pain or shortness of breath. She has not gotten off the bed so is unsure about dizziness at this time. Appetite has been fair. Does feel nauseous but no vomiting or diarrhea. Vital signs are stable. General: The patient appeared well nourished and normally developed. HEENT: Head exam is unremarkable. Neck is without jugular venous distension. LUNGS: Lungs are clear to auscultation and percussion. Breath sounds decreased. HEART: Rate and Rhythm are regular. First and second heart sounds normal. No murmurs, rubs or gallops. ABDOMEN: Abdominal exam reveals normal bowel sounds. Non-tender and non- distended. No evidence of peritonitis. EXTREMITITES: No clubbing, cyanosis, or edema. Past Medical History Past Medical History: Coronary Artery Disease (CAD), Diabetes Mellitus, Dialysis , Hyperlipidemia, Hypertension, Myocardial Infarction (GA), Osteoarthritis (OA) , Thyroid Disorder Additional Past Medical History / Comment(s): pt's stated "pt has had 16 mi's". ischemic cardiomyopathy. GA in 2005 and September 2013, 12/29/15 STRESS WNL, Hepatitis A, ALLERGIC rhinitis,GA,ESRD/DIALYSIS, CARDIO-PULMONARY ARREST , hypertensive nephrosclerosis, Hepatitis A,Vitamin D deficiency Last Myocardial Infarction Date:: 09/2013 History of Any Multi-Drug Resistant Organisms: MRSA Date of last positivie culture/infection: 2011 MDRO Source:: blood Past Surgical History: Adenoidectomy, Appendectomy, Cholecystectomy, Heart Catheterization With Stent, Hysterectomy, Tonsillectomy Additional Past Surgical History / Comment(s): mary cataracts, LAP-BAND 2004, Laparoscopic cholecystectomy, FIBULA FX has metal pins in place,Left shoulder surgery, Hemodialysis Cataract bilateral with IOL, fistula and sx to" reroute it ",gets dialysis mon-fri-fri. has insulin pump Past Anesthesia/Blood Transfusion Reactions: Motion Sickness, Postoperative Nausea & Vomiting (PONV) Date of Last Stent Placement:: 2014 Past Psychological History: Anxiety, Bipolar, Depression Additional Psychological History / Comment(s): pt lives at home with her spouse uses a walker in house and w/c outdoors. Smoking Status: Never smoker Past Alcohol Use History: Rare Past Drug Use History: None Reported - Past Family History Mother Family Medical History: Congestive Heart Failure (CHF), Diabetes Mellitus, Hypertension Father History Unknown: Yes Family Medical History: Diabetes Mellitus Brother(s) Family Medical History: Diabetes Mellitus, Hyperlipidemia Additional Family Medical History / Comment(s): Hypertension chronic kidney disease Medications and Allergies Home Medications Medication Instructions Recorded Confirmed Type Famotidine [Pepcid] 20 mg PO DAILY 04/29/14 04/01/16 History Furosemide [Lasix] 80 mg PO BID 08/04/14 04/01/16 History Levothyroxine Sodium [Synthroid] 150 mcg PO MOTUWETHFRSA 08/04/14 04/01/16 History HYDROcodone/APAP 10-325MG [[place] 1 tab PO Q4H PRN 07/05/15 04/01/16 History 10-325] Prochlorperazine [Compazine] 5 - 10 mg PO Q8HR PRN 07/05/15 04/01/16 History amLODIPine [Norvasc] 10 mg PO HS 07/05/15 04/01/16 History clonazePAM [KlonoPIN] 0.5 mg PO BID 07/05/15 04/01/16 History Aspirin EC [Ecotrin Low Dose] 81 mg PO DAILY 01/01/16 04/01/16 History Escitalopram [Lexapro] 20 mg PO DAILY 01/01/16 04/01/16 History Fosrenol 1000mg 1,000 mg PO AC-BID 01/01/16 04/01/16 History Insulin Aspart (For Pump) [NovoLOG 0.01 unit SQ-PUMP CONTINUOUS 01/01/16 History (For Pump)] Lactulose 10 gm PO DAILY PRN 01/01/16 04/01/16 History Levothyroxine Sodium [Synthroid] 300 mcg PO DUBON 01/01/16 04/01/16 History Nystatin 1 applic TOPICAL BID PRN 01/01/16 04/01/16 History Nystatin [Nystop] 1 applic TOPICAL BID PRN 01/01/16 04/01/16 History busPIRone HCL 15 mg PO BID 01/01/16 04/01/16 History Calcium Acetate [Phoslo] 1,334 mg PO DIRECTED 02/27/16 04/01/16 History Calcium Acetate [Phoslo] 2,001 mg PO TID-W/MEALS 02/27/16 04/01/16 History Liquacel 1 dose PO DAILY 04/01/16 04/01/16 History Metoprolol Tartrate [Lopressor] 12.5 mg PO QAM 04/01/16 04/01/16 History Renaplex-D 1 tab PO DAILY 04/01/16 04/01/16 History lamoTRIgine [LaMICtal] 75 mg PO BID 04/01/16 04/01/16 History Allergies Allergy/AdvReac Type Severity Reaction Status Date / Time adhesive Allergy Rash/Hives Verified 02/27/16 13:32 metformin Allergy SUGAR Verified 02/27/16 13:32 LEVEL INCREASE Penicillins Allergy Rash/Hives Verified 02/27/16 13:32 Physical Exam Vitals: Vital Signs Temp Pulse Pulse Resp BP BP Pulse Ox 04/02/16 09:08 12 04/02/16 08:50 98.5 F 60 12 136/60 95 04/02/16 04:00 98.4 F 61 16 125/52 96 04/02/16 00:00 98.0 F 63 16 130/66 96 04/01/16 20:00 98.2 F 57 L 18 160/70 98 04/01/16 16:00 98 F 41 L 18 119/47 97 04/01/16 15:09 46 L 18 99/45 98 04/01/16 13:12 45 L 20 119/45 98 Intake and Output 04/01/16 04/02/16 04/02/16 22:59 06:59 14:59 Intake Total 180 300 Output Total 0 Balance 180 300 Intake: Oral 180 300 Output: Urine 0 Other: # Voids 0 # Bowel Movements 0 Weight 127.6 kg Results - Lab Results Most recent lab results Calcium 8.8 mg/dL (8.4-10.2) 04/02/16 08:07 Phosphorus 4.8 mg/dL (2.5-4.5) H 04/01/16 13:23 Magnesium 2.3 mg/dL (1.6-2.3) 04/02/16 08:07 04/01/16 12:17 04/02/16 08:07 Assessment and Plan Plan: Assessment: #1. End-stage renal disease maintained on hemodialysis on a Friday schedule. #2. Hyperkalemia secondary to chronic kidney disease. #3. Chronic kidney disease mineral bone disease. #4. History of coronary artery disease status post multiple interventions. #5. Morbid obesity. #6. Hypertension with chronic kidney disease. Controlled. #7. Bradycardia. Possibly related to hyperkalemia as potassium was high yesterday. Cardiology following. Plan: Hemodialysis tomorrow with goal to liters ultrafiltration. Check potassium level today. Follow-up echocardiogram results. Nephrocaps daily. Maintains phosphate binders with meals. She does take Kayexalate at home 1-2 times weekly. Her potassium is monitored very closely as an outpatient and has been running in the normal range. I have advised her to take Kayexalate every Friday as well as either Friday or . She understands. Thank you for the consultation. I will continue to follow the patient with you during her hospital stay.
--- NOTE | 2016-04-02 10:42 | ECHOF ---
Referral Reason:assess lvf MEASUREMENTS -------- HEIGHT: 167.6 cm WEIGHT: 127.5 kg BP: 125/52 RVIDd: 3.9 cm (< 3.3) IVSd: 1.2 cm (0.6 - 1.1) LVIDd: 4.3 cm (3.9 - 5.3) LVPWd: 1.0 cm (0.6 - 1.1) IVSs: 1.8 cm LVIDs: 2.0 cm LVPWs: 1.7 cm Ao Diam: 2.7 cm (2.0 - 3.7) AV Cusp: 1.7 cm (1.5 - 2.6) LA Diam: 3.7 cm (2.7 - 3.8) MV EXCURSION: 14.963 mm (> 18.000) MV EF SLOPE: 101 mm/s (70 - 150) EPSS: 0.5 cm MV E Errol: 0.63 m/s MV DecT: 152 ms MV A Errol: 1.05 m/s MV E/A Ratio: 0.60 RAP: 5.00 mmHg RVSP: 19.39 mmHg FINDINGS -------- Sinus rhythm. This was a technically difficult study with suboptimal views. Morbid Obesity There is mild concentric left ventricular hypertrophy. Overall left ventricular systolic function is normal with, an EF between 55 - 60 %. The right ventricle is mildly enlarged. The left atrium is normal in size. The right atrium is normal in size. Aortic valve is trileaflet and is mildly thickened. The mitral valve leaflets are mildly thickened. Mild mitral annular calcification present. Mild mitral regurgitation is present. Mild tricuspid regurgitation present. The right ventricular systolic pressure, as measured by Doppler, is 19.39mmHg. Pulmonic valve appears structurally normal. The aortic root size is normal. The pericardium is normal. CONCLUSIONS -------- 1. Sinus rhythm. 2. Mild mitral annular calcification present. 3. Mild mitral regurgitation is present. 4. Mild tricuspid regurgitation present. 5. The right ventricular systolic pressure, as measured by Doppler, is 19.39mmHg. 6. Pulmonic valve appears structurally normal. 7. The aortic root size is normal. 8. The pericardium is normal. 9. This was a technically difficult study with suboptimal views. 10. There is mild concentric left ventricular hypertrophy. 11. Overall left ventricular systolic function is normal with, an EF between 55 - 60 %. 12. The right ventricle is mildly enlarged. 13. The left atrium is normal in size. 14. The right atrium is normal in size. 15. Aortic valve is trileaflet and is mildly thickened. 16. The mitral valve leaflets are mildly thickened. APPLICATIONS SUPPORT LEAD: Jess Leavitt RDCS
[2016-04-02 11:55] LABS: Glucose,Whole Blood 151 mg/dL (75-99)
[2016-04-02] MEDS: HYDROcodone/APAP 10-325MG 1 EACH TAB PO PRN ×2 (12:03→23:57)
[2016-04-02] MEDS: FOLIC ACID-VIT B COMPLEX-VIT C 1 CAP PO SCH (13:21)
--- NOTE | 2016-04-02 14:29 | P.PN ---
Subjective The patient is a pleasant 59-year-old female patient who sees Dr. Gar and Dr. JAE Jc as an outpatient with a past medical history significant for coronary artery disease and prior coronary artery stenting with the patient underwent stenting of the proximal left anterior descending artery as well as ramus intermedius in April 2014, diabetes type 2, end stage renal disease on hemodialysis Friday, as well as dyslipidemia She presented to the emergency room secondary to lightheadedness and dizziness. Prior to be she was on her way to her usual dialysis time Friday and was complaining of lightheadedness when standing up did not resolve when she was sitting down. Patient did not pass out patient to complain of any chest pain. Patient denies any palpitations however she was worried about her heart rate being low. In the dialysis unit prior to starting her therapies. Her heart rate was in the 40s they have sent her to the emergency room for further evaluation and treatment. Dialysis was initiated today. She normally runs on the high 50s being followed closely by Dr. JAE Jc no plans for any pacemaker from that time. Potassium use with culprit for her bradycardia. She has some GI losses in the form of diarrhea 2 days prior to admission. Diarrhea resolved coming into the emergency room as of yesterday. Patient did not miss any of her dialysis her last dialysis was Friday, scheduled. In the emergency room potassium was 6.5, sodium 134, creatinine 8.3, hemoglobin 11.3, double basic count 8.6. ekg show Patient will be admitted to selective care, nephrology and cardiology consultations. It is Kayexelate will given today as per ER team, or patient will be dialyzed later today 04/02: Patient is followed by Dr. Souza. She is scheduled for hemodialysis tomorrow. Potassium 3.7. BUN 33 and creatinine 6.22. TSH is 0.861 and free T4 1 0.45. Patient is followed by cardiology. Echocardiogram ordered. Patient may need permanent pacemaker. She denies any chest pain, shortness of breath, palpitations, lightheadedness or dizziness. Objective - Vital Signs Vital signs: Vital Signs Temp 98.7 F 04/01/16 11:39 Pulse 45 L 04/01/16 13:12 Resp 20 04/01/16 13:12 BP 119/45 04/01/16 13:12 Pulse Ox 98 04/01/16 13:12 - Exam General appearance: cooperative, morbidly obese - EENT Eyes: anicteric sclerae, EOMI, PERRLA, dentition normal, normal appearance ENT: no hard of hearing, hearing grossly normal, NA/AT, normal oropharynx, no other, no pharyngeal erythema, no thrush, no tonsillar exudates, no tonsillar swelling - Neck Neck: no lymphadenopathy, normal ROM, no other, no rigidity, no stridor, no thyromegaly - Respiratory Respiratory: bilateral: CTA, negative: dullness, rales, rhonchi, wheezing, prolonged expiration - Cardiovascular Heart rate: 36 Rhythm: regular Heart sounds: normal: S1, S2 Abnormal Heart Sounds: no systolic murmur, no diastolic murmur, no rub, no S3 Gallop, no S4 Gallop, no click, no other leg Peripheral Edema: bilateral: Trace - Gastrointestinal General gastrointestinal: normal bowel sounds, soft - Integumentary Integumentary: normal, normal turgor - Neurologic Neurologic: CNII-XII intact, focal deficits (none) - Musculoskeletal Musculoskeletal: generalized weakness, strength equal bilaterally - Psychiatric Psychiatric: A&O x's 3, appropriate affect, intact judgment & insight - Labs CBC & Chem 7: 04/01/16 12:17 04/02/16 08:07 Labs: Abnormal Lab Results - Last 24 Hours (Table) 04/01/16 Range/Units 13:23 Sodium 134 L (137-145) mmol/L Potassium 6.5 H* (3.5-5.1) mmol/L BUN 59 H (7-17) mg/dL Creatinine 8.34 H* (0.52-1.04) mg/dL Glucose 157 H (74-99) mg/dL Phosphorus 4.8 H (2.5-4.5) mg/dL Magnesium 2.9 H (1.6-2.3) mg/dL Assessment and Plan Plan: 1. Lightheadedness with bradycardia, sick sinus syndrome, symptomatic. Patient currently requires adjustments of her hyperkalemia, Kayexalate was given emergency room, patient would be seen consultation by cardiology and nephrology for the scheduled dialysis. Patient might need emergent dialysis she would her symptoms persist. Patient will be monitored in the selective care depending on her potassium levels. ICU requires 7.5 or above potassium levels per protocol. Standby for a temporary pacemaker 2. Symptomatic hyperkalemia secondary to end-stage renal disease maintained on hemodialysis. Kayexalate, and dialysis to the remediate the current Abnormality 2. CAD: Post PCI with angioplasty and stent to stent placement or primary this year had been seeing cardiology Dr. DOLLY Jc regular basis . During this hospitalization upon discharge no medication changes were made she is to continue on double antiplatelet agents statins and beta blockers. 3 chronic kidney disease on hemodialysis 3 times a week consult nephrology continue dialysis as outpatient to resume treatment as scheduled tomorrow Friday schedule. 4 type 2 diabetes on insulin pump: Continue insulin via pump continue Accu-Chek with sliding scales coverage as well. 5 hyperlipidemia: Continue Lipitor at 40 mg daily changes were made. 6 asthma/COPD: Continue Pulmicort along with DuoNeb 4 times a day. 7 hypothyroidism: Continue levothyroxine with 50 g daily. 8. Known history off anxiety and depression are stable on Lexapro and BuSpar along with Clonopin no changes were made 9 GERD/GI prophylaxis: Continue Pepcid 20 mg daily 10. Hypertensive cardiac vessel disease on amlodipine 10 mg daily Lasix 80 mg twice a day lisinopril 40 mg at bedtime. 11 Chronic pain syndrome: Resume hydrocodone Discharge plan: Most likely return home. Impression and plan of care have been directed as dictated by the signing physician. Emely Contreras nurse practitioner acting as scribe for signing physician. Time with Patient: Greater than 30
--- NOTE | 2016-04-02 14:38 | P.PN ---
Progress Note - Text This is an addendum to the consult dictated earlier today. I spoke with Dr. JAE Jc regarding possible pacemaker implantation, he felt that the patient's bradycardia was secondary to hyperkalemia, as she has also had this in the past. His recommendation was to administer Kayexalate, normalize the potassium , discharge the patient home, and make a follow-up appointment to see him in the office post discharge. Heart rate at present 54. Normal sinus rhythm with first-degree AV block. DNP note has been reviewed, I agree with a documented findings and plan of care. Patient was seen and examined.
[2016-04-02 16:36] LABS: Glucose,Whole Blood 117 mg/dL (75-99)
[2016-04-02 21:14] LABS: Glucose,Whole Blood 187 mg/dL (75-99)
[2016-04-03] MEDS: INSULIN PUMP MEAL BOLUS 1 UNIT MISC MISCELLANE SCH ×5 (00:13→23:30)
[2016-04-03 02:09] LABS: Glucose,Whole Blood 160 mg/dL (75-99)
[2016-04-03 05:52] LABS: Glucose,Whole Blood 158 mg/dL (75-99)
[2016-04-03 07:13] LABS: Calcium 8.6 mg/dL (8.4-10.2); Potassium 4.6 mmol/L (3.5-5.1)
[2016-04-03] MEDS: LEVOTHYROXINE 75 MCG TAB PO SCH (07:13)
[2016-04-03] MEDS: SEVELAMER 800 MG TAB PO SCH ×2 (07:13→17:32)
[2016-04-03] MEDS: CALCIUM ACETATE 667 MG CAP PO SCH ×3 (07:13→17:04)
[2016-04-03] MEDS: lamoTRIgine 25 MG TAB PO SCH ×2 (07:59→20:34)
[2016-04-03] MEDS: ESCITALOPRAM 20 MG TAB PO SCH (07:59)
[2016-04-03] MEDS: CLOPIDOGREL 75 MG TAB PO SCH (07:59)
[2016-04-03] MEDS: clonazePAM 0.5 MG TAB PO SCH ×2 (07:59→20:44)
[2016-04-03] MEDS: ASPIRIN 81 MG CHEW PO SCH (07:59)
[2016-04-03] MEDS: ATORVASTATIN 80 MG TAB PO SCH (08:00)
[2016-04-03] MEDS: busPIRone HCl 5 MG TAB PO SCH ×2 (08:00→20:33)
[2016-04-03] MEDS: ENOXAPARIN 30 MG/0.3 ML SYRINGE SQ SCH (08:00)
[2016-04-03] MEDS: FUROSEMIDE 80 MG TAB PO SCH ×2 (08:00→17:05)
[2016-04-03] MEDS: FAMOTIDINE 20 MG TAB PO SCH (08:00)
[2016-04-03] MEDS: INSULIN PUMP BASAL RATES 1 EACH MISC MISCELLANE SCH (09:10)
[2016-04-03] MEDS: FOLIC ACID-VIT B COMPLEX-VIT C 1 CAP PO SCH (11:45)
[2016-04-03 12:03] LABS: Glucose,Whole Blood 99 mg/dL (75-99)
--- NOTE | 2016-04-03 12:39 | P.PN ---
Subjective Agent is seen in follow-up for end-stage renal disease. She is maintained on hemodialysis on a Friday schedule. Currently undergoing hemodialysis. Denies any dizziness. No chest pain or shortness of breath. Her potassium level was 4.6 this morning. Vital signs are stable. General: The patient appeared well nourished and normally developed. HEENT: Head exam is unremarkable. Neck is without jugular venous distension. LUNGS: Lungs are clear to auscultation and percussion. Breath sounds decreased. HEART: Rate and Rhythm are regular. First and second heart sounds normal. No murmurs, rubs or gallops. ABDOMEN: Abdominal exam reveals normal bowel sounds. Non-tender and non- distended. No evidence of peritonitis. EXTREMITITES: No clubbing, cyanosis, or edema. Objective - Vital Signs Vital signs: Vital Signs Temp 98.2 F 04/03/16 12:00 Pulse 77 04/03/16 12:00 Resp 16 04/03/16 12:00 BP 144/60 04/03/16 12:00 Pulse Ox 97 04/03/16 12:00 Intake & Output 04/02/16 04/03/16 04/03/16 18:59 06:59 18:59 Intake Total 860 420 Balance 860 420 Weight 129.4 kg Intake: Oral 860 420 Other: # Voids 1 1 - Labs CBC & Chem 7: 04/01/16 12:17 04/03/16 06:37 Labs: Abnormal Lab Results - Last 24 Hours (Table) 04/02/16 04/02/16 04/03/16 Range/Units 16:32 20:50 01:49 Sodium (137-145) mmol/L Chloride (98-107) mmol/L BUN (7-17) mg/dL Creatinine (0.52-1.04) mg/dL Glucose (74-99) mg/dL POC Glucose (mg/dL) 117 H 187 H 160 H (75-99) mg/dL 04/03/16 04/03/16 Range/Units 05:51 06:37 Sodium 130 L (137-145) mmol/L Chloride 92 L (98-107) mmol/L BUN 45 H (7-17) mg/dL Creatinine 7.53 H* (0.52-1.04) mg/dL Glucose 142 H (74-99) mg/dL POC Glucose (mg/dL) 158 H (75-99) mg/dL Assessment and Plan Plan: Assessment: #1. End-stage renal disease maintained on hemodialysis on a Friday schedule. #2. Hyperkalemia secondary to chronic kidney disease. Resolved. #3. Chronic kidney disease mineral bone disease. #4. History of coronary artery disease status post multiple interventions. #5. Morbid obesity. #6. Hypertension with chronic kidney disease. Controlled. #7. Bradycardia. Possibly related to hyperkalemia as potassium was high yesterday. Resolved. Cardiology following. Plan: Hemodialysis today. Next treatment will be on Friday. Nephrocaps daily. Maintains phosphate binders with meals. She does take Kayexalate at home 1-2 times weekly. Her potassium is monitored very closely as an outpatient and has been running in the normal range. I have advised her to take Kayexalate every Friday as well as either Friday or . She understands. Stable to be discharged home from nephrology standpoint.
--- NOTE | 2016-04-03 14:31 | P.DS ---
Providers Date of admission: 04/01/16 12:56 Expected date of discharge: 04/03/16 Attending physician: Luiza Estrella Primary care physician: Kimberli Gar [facility] Course: The patient is a pleasant 59-year-old female patient who sees Dr. Gar and Dr. JAE Jc as an outpatient with a past medical history significant for coronary artery disease and prior coronary artery stenting with the patient underwent stenting of the proximal left anterior descending artery as well as ramus intermedius in April 2014, diabetes type 2, end stage renal disease on hemodialysis Friday, as well as dyslipidemia She presented to the emergency room secondary to lightheadedness and dizziness. Prior to be she was on her way to her usual dialysis time Friday and was complaining of lightheadedness when standing up did not resolve when she was sitting down. Patient did not pass out patient to complain of any chest pain. Patient denies any palpitations however she was worried about her heart rate being low. In the dialysis unit prior to starting her therapies. Her heart rate was in the 40s they have sent her to the emergency room for further evaluation and treatment. Dialysis was initiated today. She normally runs on the high 50s being followed closely by Dr. JAE Jc no plans for any pacemaker from that time. Potassium use with culprit for her bradycardia. She has some GI losses in the form of diarrhea 2 days prior to admission. Diarrhea resolved coming into the emergency room as of yesterday. Patient did not miss any of her dialysis her last dialysis was Friday, scheduled. In the emergency room potassium was 6.5, sodium 134, creatinine 8.3, hemoglobin 11.3, double basic count 8.6. ekg show Patient will be admitted to selective care, nephrology and cardiology consultations. It is Kayexelate will given today as per ER team, or patient will be dialyzed later today 04/02: Patient is followed by Dr. Souza. She is scheduled for hemodialysis tomorrow. Potassium 3.7. BUN 33 and creatinine 6.22. TSH is 0.861 and free T4 1 0.45. Patient is followed by cardiology. Echocardiogram ordered. Patient may need permanent pacemaker. She denies any chest pain, shortness of breath, palpitations, lightheadedness or dizziness. 04/03: Rate running in the 60s. She denies any lightheadedness or dizziness. Sodium 130, potassium 4.6, BUN 45 and creatinine 7.53. Blood glucose running between 142 and 187. Cardiology has decided the patient does not need pacemaker. Nephrology has cleared patient for discharge. She is to take Kayexalate one to 2 times per week and she is being monitored closely as an outpatient. Her next hemodialysis treatment is for Friday. She is currently undergoing hemodialysis. Patient will be discharged home today in stable condition. Metoprolol has been discontinued. Discharge diagnoses: 1. Lightheadedness with bradycardia, sick sinus syndrome, symptomatic possibly due to hyperkalemia. 2. Symptomatic hyperkalemia secondary to end-stage renal disease maintained on hemodialysis. 2. CAD: Post PCI with angioplasty and stent to stent placement 3. End-stage renal disease on hemodialysis 3 times a week 4. Diabetes mellitus type 2, insulin requiring on insulin pump 5. Hyperlipidemia 6. COPD: Continue Pulmicort along with DuoNeb 4 times a day. 7. Hypothyroidism: Continue levothyroxine with 50 g daily. 8. Generalized anxiety disorder, recurrent depression 9. GERD 10. Hypertensive cardiac vessel disease 11. Chronic pain syndrome Discharge plan: return home. Impression and plan of care have been directed as dictated by the signing physician. Emely Contreras nurse practitioner acting as scribe for signing physician. Patient Condition at Discharge: Good Plan - Discharge Summary Discharge Medication List Famotidine [Pepcid] 20 mg PO DAILY 04/29/14 [History] Clopidogrel [Plavix] 75 mg PO DAILY tab 05/10/14 [Rx] Nitroglycerin Sl Tabs [Nitrostat] 0.4 mg SUBLINGUAL Q5M PRN #0 tab 05/10/14 [Rx] Furosemide [Lasix] 80 mg PO BID 08/04/14 [History] Levothyroxine Sodium [Synthroid] 150 mcg PO [id number] 08/04/14 [History] HYDROcodone/APAP 10-325MG [Ronda 10-325] 1 tab PO Q4H PRN 07/05/15 [History] Prochlorperazine [Compazine] 5 - 10 mg PO Q8HR PRN 07/05/15 [History] amLODIPine [Norvasc] 10 mg PO HS 07/05/15 [History] clonazePAM [KlonoPIN] 0.5 mg PO BID 07/05/15 [History] Aspirin EC [Ecotrin Low Dose] 81 mg PO DAILY 01/01/16 [History] Escitalopram [Lexapro] 20 mg PO DAILY 01/01/16 [History] Fosrenol 1000mg 1,000 mg PO AC-BID 01/01/16 [History] Insulin Aspart (For Pump) [NovoLOG (For Pump)] 0.01 unit SQ-PUMP CONTINUOUS [History] Lactulose 10 gm PO DAILY PRN 01/01/16 [History] Levothyroxine Sodium [Synthroid] 300 mcg PO DUBON 01/01/16 [History] Nystatin 1 applic TOPICAL BID PRN 01/01/16 [History] Nystatin [Nystop] 1 applic TOPICAL BID PRN 01/01/16 [History] busPIRone HCL 15 mg PO BID 01/01/16 [History] Atorvastatin [Lipitor] 80 mg PO DAILY #30 tab 01/04/16 [Rx] Calcium Acetate [PhosLo] 1,334 mg PO DIRECTED 02/27/16 [History] Calcium Acetate [PhosLo] 2,001 mg PO TID-W/MEALS 02/27/16 [History] Liquacel 1 dose PO DAILY 04/01/16 [History] Renaplex-D 1 tab PO DAILY 04/01/16 [History] lamoTRIgine [LaMICtal] 75 mg PO BID 04/01/16 [History] Follow up Appointment(s)/Referral(s): Carmen Jc MD [STAFF PHYSICIAN] - 1 Week Kimberli Gar MD [Primary Care Provider] - 1 Week Patient Instructions/Handouts: Bradycardia (DC) Activity/Diet/Wound Care/Special Instructions: Visiting Nurses [id number] Discharge Disposition: HOME SELF-CARE
--- NOTE | 2016-04-03 14:55 | P.PN ---
Subjective Principal diagnosis: Bradycardia This is a pleasant 60-year-old female with history of end-stage renal disease on hemodialysis, coronary artery disease with multivessel PCI, hypertension, diabetes, obesity, hypothyroidism, she presents to the hospital with symptoms of dizziness and lightheadedness. Patient states that yesterday morning she noted she was quite dizzy and lightheaded even prior to going to dialysis. At the dialysis unit she was extremely dizzy and asked the staff to check her blood pressure and heart rate. Heart rate at that time was noted to be around 40. Patient has had noted bradycardia in the past and it was usually related to hyperkalemia. Her potassium yesterday was 6.5, BUN 59 and creatinine 8.3. CBC, hemoglobin 11.3, WBC 8.6. Magnesium level 2.9. Troponin 0.012. EKG on arrival showed a sinus bradycardia with a right bundle branch block pattern bifascicular block heart rate in 30s this morning patient's is in a sinus bradycardia with a heart rate of 60. Blood pressure 125/50, heart rate 60 this morning. Patient was seen and examined, denies any dizziness this morning just feeling mildly weak. She was taking Lopressor 12-1/2 mg 1 tablet daily at home, this continues to be on hold. Objective - Vital Signs Vital signs: Vital Signs Temp 98.2 F 04/03/16 12:00 Pulse 77 04/03/16 12:00 Resp 16 04/03/16 12:00 BP 144/60 04/03/16 12:00 Pulse Ox 97 04/03/16 12:00 Intake & Output 04/02/16 04/03/16 04/03/16 18:59 06:59 18:59 Intake Total 860 600 Balance 860 600 Weight 129.4 kg Intake: Oral 860 600 Other: # Voids 1 1 - Exam PHYSICAL EXAMINATION: HEENT: Head is atraumatic, normocephalic. Pupils equal, round. Neck is supple. There is no elevated jugular venous pressure. HEART EXAMINATION: Heart S1 and S2 systolic murmur is heard. CHEST EXAMINATION: Lungs are clear to auscultation and precussion. No chest wall tenderness is noted on palpation or with deep breathing. ABDOMEN: Soft, obese, nontender. Bowel sounds are heard. No organomegaly noted. EXTREMITIES: 2+ peripheral pulses with no evidence of peripheral edema and no calf tenderness noted. NEUROLOGIC patient is awake, alert and oriented -3. - Labs CBC & Chem 7: 04/01/16 12:17 04/03/16 06:37 Labs: Abnormal Lab Results - Last 24 Hours (Table) 04/02/16 04/02/16 04/03/16 Range/Units 16:32 20:50 01:49 Sodium (137-145) mmol/L Chloride (98-107) mmol/L BUN (7-17) mg/dL Creatinine (0.52-1.04) mg/dL Glucose (74-99) mg/dL POC Glucose (mg/dL) 117 H 187 H 160 H (75-99) mg/dL 04/03/16 04/03/16 Range/Units 05:51 06:37 Sodium 130 L (137-145) mmol/L Chloride 92 L (98-107) mmol/L BUN 45 H (7-17) mg/dL Creatinine 7.53 H* (0.52-1.04) mg/dL Glucose 142 H (74-99) mg/dL POC Glucose (mg/dL) 158 H (75-99) mg/dL Assessment and Plan Plan: Assessment and plan #1 symptomatic bradycardia, EKG shows trifascicular block. This morning patient is in sinus bradycardia with a first-degree AV block. Potassium 6.5 in the emergency room, Kayexalate was given. Potassium 4.6 today. #2 end-stage renal disease on hemodialysis #3 known history of coronary artery disease with multivessel PCI #4 diabetes #5 hypertension #6 hyperlipidemia #7 obesity #8 hypothyroidism #9 asthma, COPD Plan We will continue to hold the beta uri, continue to monitor for another 24 hours plan for possible discharge home in the morning if stable. DNP note has been reviewed, I agree with a documented findings and plan of care. Patient was seen and examined.
[2016-04-03 16:47] LABS: Glucose,Whole Blood 99 mg/dL (75-99)
[2016-04-03] MEDS: HYDROcodone/APAP 10-325MG 1 EACH TAB PO PRN ×2 (18:33→20:44)
[2016-04-03] MEDS: amLODIPine 10 MG TAB PO SCH (20:33)
[2016-04-03 20:40] LABS: Glucose,Whole Blood 191 mg/dL (75-99)
[2016-04-04 02:26] LABS: Glucose,Whole Blood 344 mg/dL (75-99)
[2016-04-04] MEDS: LEVOTHYROXINE 75 MCG TAB PO SCH (06:19)
[2016-04-04 07:41] LABS: Glucose,Whole Blood 71 mg/dL (75-99)
[2016-04-04 07:48] VITALS: BP 126/57; PULSE 62; RESP 19; TEMP 97
[2016-04-04] MEDS: HYDROcodone/APAP 10-325MG 1 EACH TAB PO PRN (08:46)
[2016-04-04] MEDS: ENOXAPARIN 30 MG/0.3 ML SYRINGE SQ SCH (08:47)
[2016-04-04] MEDS: lamoTRIgine 25 MG TAB PO SCH (08:47)
[2016-04-04] MEDS: FUROSEMIDE 80 MG TAB PO SCH (08:47)
[2016-04-04] MEDS: busPIRone HCl 5 MG TAB PO SCH (08:48)
[2016-04-04] MEDS: SEVELAMER 800 MG TAB PO SCH (08:48)
[2016-04-04] MEDS: CALCIUM ACETATE 667 MG CAP PO SCH (08:48)
[2016-04-04] MEDS: FAMOTIDINE 20 MG TAB PO SCH (08:49)
[2016-04-04] MEDS: CLOPIDOGREL 75 MG TAB PO SCH (08:49)
[2016-04-04] MEDS: clonazePAM 0.5 MG TAB PO SCH (08:49)
[2016-04-04] MEDS: ATORVASTATIN 80 MG TAB PO SCH (08:49)
[2016-04-04] MEDS: INSULIN PUMP MEAL BOLUS 1 UNIT MISC MISCELLANE SCH (08:50)
[2016-04-04] MEDS: ASPIRIN 81 MG CHEW PO SCH (08:50)
[2016-04-04] MEDS: INSULIN PUMP BASAL RATES 1 EACH MISC MISCELLANE SCH (08:50)
[2016-04-04] MEDS: ESCITALOPRAM 20 MG TAB PO SCH (08:50)
[2016-04-04 13:14] LABS: Glucose,Whole Blood 127 mg/dL (75-99)
[2016-04-07] MEDS ORDERED: LEVOTHYROXINE 100 MCG TAB PO SCH (06:30)
== END 2016-04-04 13:53 | disposition home health service (06) | DRG 308 ==
LOC: EC 11:28 → 6SEL 12:56 → 4MS4W 04-04 00:40
PROVIDERS: ADMIT Family Medicine; ATTEND Family Medicine
PROC: 5A1D60Z (ICD-10-PCS; principal; 2016-04-02)
DX: I49.5 Sick sinus syndrome (principal); N18.6 End stage renal disease; I12.0 Hypertensive chronic kidney disease with stage 5 chronic kidney disease or end stage renal disease; I45.3 Trifascicular block; F33.9 Major depressive disorder, recurrent, unspecified; E11.22 Type 2 diabetes mellitus with diabetic chronic kidney disease; E87.5 Hyperkalemia; E03.9 Hypothyroidism, unspecified; E66.01 Morbid (severe) obesity due to excess calories; E78.5 Hyperlipidemia, unspecified; F41.1 Generalized anxiety disorder; G89.4 Chronic pain syndrome; I25.10 Atherosclerotic heart disease of native coronary artery without angina pectoris; I25.2 Old myocardial infarction; I25.5 Ischemic cardiomyopathy; I44.0 Atrioventricular block, first degree; J44.9 Chronic obstructive pulmonary disease, unspecified; J45.909 Unspecified asthma, uncomplicated; K21.9 Gastro-esophageal reflux disease without esophagitis; M19.90 Unspecified osteoarthritis, unspecified site; E55.9 Vitamin D deficiency, unspecified; Z86.74 Personal history of sudden cardiac arrest; I83.90 Asymptomatic varicose veins of unspecified lower extremity; Z95.5 Presence of coronary angioplasty implant and graft; Z96.41 Presence of insulin pump (external) (internal); Z98.84 Bariatric surgery status; Z99.2 Dependence on renal dialysis; Z79.02 Long term (current) use of antithrombotics/antiplatelets; Z79.82 Long term (current) use of aspirin; Z79.899 Other long term (current) drug therapy; Z88.0 Allergy status to penicillin; Z88.8 Allergy status to other drugs, medicaments and biological substances; Z86.14 Personal history of Methicillin resistant Staphylococcus aureus infection; Z82.49 Family history of ischemic heart disease and other diseases of the circulatory system
CPT/HCPCS: 36415; 71020; 80048; 80053; 82140; 82550; 82553; 83036; 83735; 84100; 84439; 84443; 84484; 85025; 90935; 93005; 93306; 96374; 96375; 99291

== ENCOUNTER 2016-07-14 15:45 | Emergency (ER) | payer MEDICARE, BC ==
[2016-07-14 15:52] VITALS: RESP 18
[2016-07-14] MEDS ORDERED: HYDROcodone/APAP 5-325MG 1 EACH TAB PO STA (16:37)
--- NOTE | 2016-07-14 16:43 | ED ---
Fall HPI - General Chief Complaint: Fall Stated Complaint: Fall Time Seen by Provider: 07/14/16 16:19 Source: patient, EMS, RN notes reviewed Mode of arrival: EMS - History of Present Illness Initial Comments: Patient is 61-year-old female presents to the emergency room for evaluation of fall injury. Patient states on Friday she was getting up from the toilet and fell forward. Patient states after she fell she was curled up in a ball in her bathroom. Patient states she did hit her head. Patient denies loss consciousness. Patient states that she twisted both her ankles and landed on both of her knees. Patient states that she called 911 to help her get up since she was unable to and her was unable to help her. Patient states that she did not want to be brought to the emergency room after EMS helped her up. Patient states today she is having bilateral ankle pain. Both on the lateral portions. Patient states her right ankle causes her more pain than her left. Patient does admit she has had right ankle surgery about 3 years ago and had screws placed. Patient states it hurts to walk. Patient states the pain radiates into her bilateral feet. Patient also states she's having pain in her right lower back that radiates into her hip and down her leg. Patient states she has a history of sciatica and this feels similar to sciatic pain. Patient denies fecal or urinary incontinence. Patient denies saddle anesthesia. Patient states been taking [place] with slight relief of symptoms. Patient states her last dose [place] was 1 PM this afternoon. Patient denies headache, dizziness, neck pain, changes in vision, ear pain, ringing in ears. Patient does state that she is on blood thinners. Patient denies any other injuries during incident. - Related Data Home Medications Medication Instructions Recorded Confirmed Famotidine [Pepcid] 20 mg PO DAILY 04/29/14 07/14/16 Furosemide [Lasix] 80 mg PO BID 08/04/14 07/14/16 Levothyroxine Sodium [Synthroid] 150 mcg PO MOTUWETHFRSA 08/04/14 07/14/16 HYDROcodone/APAP 10-325MG [[place] 1 tab PO Q4-6H PRN 07/05/15 07/14/16 10-325] Prochlorperazine [Compazine] 5 - 10 mg PO Q8HR PRN 07/05/15 07/14/16 amLODIPine [Norvasc] 10 mg PO HS 07/05/15 07/14/16 Aspirin EC [Ecotrin Low Dose] 81 mg PO DAILY 01/01/16 07/14/16 Escitalopram [Lexapro] 20 mg PO DAILY 01/01/16 07/14/16 Fosrenol 1000mg 1,000 mg PO AC-BID 01/01/16 07/14/16 Insulin Aspart (For Pump) [NovoLOG 0.01 unit SQ-PUMP CONTINUOUS 01/01/16 (For Pump)] Lactulose 10 gm PO DAILY PRN 01/01/16 07/14/16 Levothyroxine Sodium [Synthroid] 300 mcg PO DUBON 01/01/16 07/14/16 Nystatin [Nystop] 1 applic TOPICAL BID PRN 01/01/16 07/14/16 busPIRone HCL 15 mg PO BID 01/01/16 07/14/16 Calcium Acetate [PhosLo] 1,334 mg PO DIRECTED 02/27/16 07/14/16 Calcium Acetate [PhosLo] 2,001 mg PO TID-W/MEALS 02/27/16 07/14/16 Liquacel 1 dose PO DAILY 04/01/16 07/14/16 Renaplex-D 1 tab PO DAILY 04/01/16 07/14/16 lamoTRIgine [LaMICtal] 75 mg PO BID 04/01/16 07/14/16 Heparin(Unknown) 1 dose SQ MOWEFR 07/14/16 07/14/16 Iron(Unknown) 1 dose PO DIRECTED 07/14/16 07/14/16 LORazepam [Ativan] 1 mg PO BID 07/14/16 07/14/16 Nystatin 100,000Unit/gm Cream 1 applic TOPICAL BID PRN 07/14/16 07/14/16 [Mycostatin Cream] Sodium Polystyrene Sulfonate 15 gm PO SUTUSA 07/14/16 07/14/16 [Kayexalate] diphenhydrAMINE [Benadryl] 50 mg PO HS PRN 07/14/16 07/14/16 Previous Rx's Medication Instructions Recorded Clopidogrel [Plavix] 75 mg PO DAILY tab 05/10/14 Nitroglycerin Sl Tabs [Nitrostat] 0.4 mg SUBLINGUAL Q5M PRN #0 tab 05/10/14 Atorvastatin [Lipitor] 80 mg PO DAILY #30 tab 01/04/16 Allergies Allergy/AdvReac Type Severity Reaction Status Date / Time adhesive Allergy Rash/Hives Verified 07/14/16 17:21 metformin Allergy SUGAR Verified 07/14/16 17:21 LEVEL INCREASE Penicillins Allergy Rash/Hives Verified 07/14/16 17:21 Review of Systems ROS Statement: Those systems with pertinent positive or pertinent negative responses have been documented in the HPI. ROS Other: All systems not noted in ROS Statement are negative. Past Medical History Past Medical History: Coronary Artery Disease (CAD), Diabetes Mellitus, Dialysis , Hyperlipidemia, Hypertension, Myocardial Infarction (ME), Osteoarthritis (OA) , Thyroid Disorder Additional Past Medical History / Comment(s): pt's stated "pt has had 16 mi's". ischemic cardiomyopathy. ME in 2005 and September 2013, 12/29/15 STRESS WNL, Hepatitis A, ALLERGIC rhinitis,ME,ESRD/DIALYSIS, CARDIO-PULMONARY ARREST , hypertensive nephrosclerosis, Hepatitis A,Vitamin D deficiency Last Myocardial Infarction Date:: 09/2013 History of Any Multi-Drug Resistant Organisms: MRSA Date of last positivie culture/infection: 2011 MDRO Source:: blood Past Surgical History: Adenoidectomy, Appendectomy, Cholecystectomy, Heart Catheterization With Stent, Hysterectomy, Tonsillectomy Additional Past Surgical History / Comment(s): mary cataracts, LAP-BAND 2004, Laparoscopic cholecystectomy, FIBULA FX has metal pins in place,Left shoulder surgery, Hemodialysis Cataract bilateral with IOL, fistula and sx to" reroute it ",gets dialysis fri-fri-fri. has insulin pump Past Anesthesia/Blood Transfusion Reactions: Motion Sickness, Postoperative Nausea & Vomiting (PONV) Date of Last Stent Placement:: 2014 Past Psychological History: Anxiety, Bipolar, Depression Additional Psychological History / Comment(s): pt lives at home with her spouse uses a walker in house and w/c outdoors. Smoking Status: Never smoker Past Alcohol Use History: Rare Past Drug Use History: None Reported - Past Family History Mother Family Medical History: Congestive Heart Failure (CHF), Diabetes Mellitus, Hypertension Father History Unknown: Yes Family Medical History: Diabetes Mellitus Brother(s) Family Medical History: Diabetes Mellitus, Hyperlipidemia Additional Family Medical History / Comment(s): Hypertension chronic kidney disease General Exam - General Exam Comments Initial Comments: Sitting in exam room, no acute distress. Limitations: no limitations General appearance: alert, in no apparent distress Head exam: Present: atraumatic, normocephalic, normal inspection Eye exam: Present: normal appearance ENT exam: Present: normal exam Neck exam: Present: normal inspection Respiratory exam: Present: normal lung sounds bilaterally. Absent: respiratory distress Cardiovascular Exam: Present: regular rate, normal rhythm, normal heart sounds Right Ankle exam: Present: full ROM, tenderness (Tenderness over lateral malleolus, small hardened lump just superior to the lateral malleolus palpated.), swelling Foot/Toe exam: Present: full ROM Neurovascular tendon exam: Present: no vascular compromise. Absent: pulse deficit (2+ dorsal pedal and posterior tibial pulses), abnormal cap refill ( Capillary refill less than 2 seconds) Left Ankle exam: Present: tenderness (Tenderness on palpating over her lateral malleolus and posterior ankle.). Absent: full ROM, swelling Neurovascular tendon exam: Present: no vascular compromise. Absent: pulse deficit (2+ dorsal pedal and posterior to the pulses), abnormal cap refill ( Capillary refill less than 2 seconds) Back exam: Present: normal inspection Neurological exam: Present: alert, oriented X3, CN II-XII intact Expanded Patient oriented to: Present: person, place, time Speech: Present: fluid speech Cranial nerves: EOM's Intact: Normal Sensory exam: Upper Extremity Light Touch: Normal, Lower Extremity Light Touch: Normal Motor strength exam: RUE: 5, LUE: 5, RLE: 5, LLE: 5 Psychiatric exam: Present: normal affect, normal mood Skin exam: Present: warm, dry, intact, normal color. Absent: rash Course Vital Signs 07/14/16 07/14/16 07/14/16 15:48 19:11 20:19 Temperature 97.6 F Pulse Rate 68 65 62 Respiratory 18 18 18 Rate Blood Pressure 154/65 155/67 132/60 O2 Sat by Pulse 98 96 96 Oximetry 07/14/16 20:30 Temperature 97.6 F Pulse Rate 62 Respiratory 18 Rate Blood Pressure 132/60 O2 Sat by Pulse 96 Oximetry Procedures - Orthopedic Splinting/Casting Injury #1 Side: left Lower Extremity Injury Location: lower leg, ankle Lower Extremity Immobilizer: posterior splint (Full leg posterior OCL splint) Medical Decision Making - Medical Decision Making Patient is a 61-year-old female presents to the emergency room for evaluation of fall injury. Patient came in with multiple complaints. Right ankle x-ray: Findings suggest loosening of the patient's transsyndesmotic screws. The more superior screw head projects prominently in the soft tissue may correspond the palpable finding. Sequela of remote injury at the medial malleolus. No acute osseous Normality seen. Left ankle suspicious for nondisplaced posterior malleolus fracture. Recommend radiographs to exclude a proximal left fibular fracture. Left tibia/fibula x-ray: There is a subtle obliquely oriented lucency along the proximal third fibular shaft on the lateral view that could represent projectional artifact. Lumbar spine x-ray: Osteopenia without displaced fracture. Right hip x-ray: Osteopenia without displaced fracture. CT of brain/C-spine: No acute intracranial abnormality seen. No acute fracture or malalignment of the cervical spine. Results discussed with patient. Patient placed in a left short leg OCL splint for posterior malleolar fracture. Patient advised to follow-up with integrated specialist. Patient states she has [place] at home for pain. Advised patient to continue taking as needed. Patient states she understands everything that was discussed with her. Return parameters discussed. Case discussed with Dr. Ryan. - Radiology Data Radiology results: report reviewed, image reviewed Disposition Clinical Impression: Fracture of posterior malleolus of left tibia, Fracture of proximal end of fibula, Fall, Sciatica of right side Disposition: HOME SELF-CARE Condition: Good Instructions: Ankle Fracture (ED), Fall Prevention for Older Adults (ED), Sciatica (ED) Additional Instructions: Rest, elevate and ice on and off for 10-15 minutes for the next 24-48 hours. Do not get splint wet. Do not remove splint until follow-up with integrated specialist. Continue taking at home medications as needed for pain. Please follow-up with integrated specialist in 24-48 hours. If new symptoms develop or symptoms worsen, please return to the ER. Referrals: Kimberli Gar MD [Primary Care Provider] - 1-2 days Britton Brandt MD [STAFF PHYSICIAN] - 1-2 days Time of Disposition: 19:44
--- NOTE | 2016-07-14 17:15 | XR ---
EXAMINATION TYPE: 5 views lumbar spine. 2 views right hip. DATE OF EXAM: 07/14/2016 5:07 PM COMPARISON: NONE HISTORY: 61-year-old female with a with pain and bump on right ankle after fall 2 days ago. FINDINGS: Lumbar spine: An injection port projects over the upper to mid abdomen. 5 lumbar type vertebral bodies. Extensive arterial calcifications are present. No pars interarticularis defect. There is facet arthropathy mid to lower lumbar spine. Vertebral body heights are preserved and alignment is maintained. Mild disc in terspace narrowing at L5-S1. Right hip: Osteopenia without displaced fracture. Extensive arterial calcifications suggest underlying diabetes and/or chronic kidney disease. IMPRESSION: 1. Lumbar spine: Facet arthropathy and mild degenerative disc disease lower lumbar spine. No vertebra l compression collapse or malalignment. 2. Right hip: Osteopenia without displaced fracture.
--- NOTE | 2016-07-14 17:22 | XR ---
EXAMINATION TYPE: 3 views bilateral feet. 3 views bilateral ankles. DATE OF EXAM: 07/14/2016 5:07 PM COMPARISON: NONE HISTORY: 61-year-old female with pain and bump along the right ankle after fall. FINDINGS: Ankles: On the right, there is 2 screw transsyndesmotic fixation. Some prominent periscrew lucency is noted m easuring up to 2.7 mm suggesting loosening. The superior more screw head projects prominently into th e soft tissues and may correspond to the patient's palpable finding. Chronic bony irregularity inferi or aspect of the medial malleolus suggests healed fracture deformity. Posterior and plantar calcaneal spurs. Smooth delineation to the Achilles tendon with mild insertional thickening suggesting inserti onal tendinopathy. No acute fracture or dislocation. On the left, there is osteopenia and suspicion for nondisplaced posterior malleolar fracture. No chris tional acute fracture is seen. Corticated bone fragment below the medial malleolus suggests sequela o f remote injury. Preservation of the distal tibiofibular overlap. Posterior and plantar calcaneal spu rs are noted. Feet: On the right, mild degenerative change at the first MTP joint and type I accessory navicular. Large p lantar calcaneal spur and hammertoes. No acute fracture or dislocation. On the left, there are hammertoe deformities. Vascular calcifications again noted. Plantar and manager agency ior calcaneal spurs. No acute fracture or dislocation. IMPRESSION: 1. Right ankle: Findings suggest loosening of the patient's 2 transsyndesmotic screws. The more super ior screw head projects prominently in the soft tissues and may correspond to the palpable finding. S equela of remote injury at the medial malleolus. No acute osseous abnormality seen. 2. Left ankle: Suspicious for nondisplaced posterior malleolar fracture. Recommend radiographs to exc lude a proximal left fibular fracture. 3. Feet: Plantar calcaneal spurs and hammertoes. Mild insertional Achilles tendinopathy on the right. No acute osseous abnormal body seen.
--- NOTE | 2016-07-14 18:54 | CT ---
EXAMINATION TYPE: CT brain cspine wo con DATE OF EXAM: 07/14/2016 6:29 PM COMPARISON: CT brain 06/28/2014 HISTORY: 61-year-old female with fall 2 days ago. Posterior headache. CT DLP: 1872.90 mGycm Automated exposure control for dose reduction was used. Technique: Examination of the head was done in axial plane without intravenous contrast. Coronal and sagittal reconstructions performed. CT of the cervical spine was obtained in axial plane without intravenous injection of contrast mater ial. Coronal and sagittal reformatted images were obtained from the axial views for evaluation of f ractures, spinal alignment and canal. FINDINGS: Head: There is no evidence of acute intracranial hemorrhage, acute ischemic changes, mass, mass-effect, or extra-axial fluid collection. There is no effacement of cerebral sulci or basal subarachnoid cister ns. There is no hydrocephalus. There is no midline shift. Nicole-white matter distinction is preserv ed. Stable encephalomalacia along the anterior left frontal lobe suggesting prior vascular traumatic insu lt. Paranasal sinuses and mastoid air cells are well pneumatized. Orbits and globes are intact. No calvar ial fracture. Cervical spine: The alignment of the cervical spine is normal on coronal and reformatted images. There is no cranial vertebral abnormality. Fracture of the cervical spine is not seen. Specimen of the spinal canal from C4 to C5 and below is limited due to artifact from the patient's shoulders. Incidentally, foci of air are seen in the region of the bilateral T2-T3 neural foramen. There is asso ciated moderate to severe facet arthropathy here and findings are probably on a degenerative basis. N o additional air seen within the spinal canal. Sagittal and coronal reformatted images confirm above findings. COMBINED IMPRESSION: 1. No acute intracranial abnormality seen. Old area of encephalomalacia anterior left temporal lobe s uggesting sequela of prior traumatic or vascular insult. 2. No acute fracture or malalignment of the cervical spine. Foci of air in the region of the bilatera l T2-T3 neural foramen; this could reflect intravenous air relating to injection or could be degenera tive vacuum especially given the moderate to severe facet arthropathy at this level. Clinical correla tion recommended.
--- NOTE | 2016-07-14 19:35 | XR ---
EXAMINATION TYPE: XR tibia fibula LT DATE OF EXAM: 07/14/2016 7:28 PM COMPARISON: None HISTORY: 61-year-old female with pain. TECHNIQUE: 2 views FINDINGS: Lateral view of the distal leg was included on the ankle exam. The technique is suboptimal. There is subtle obliquely oriented lucency along the proximal third fibular shaft on the lateral view that cou ld represent projectional artifact. Degenerative spurring at the knee. IMPRESSION: Suboptimal technique. Repeat can be performed given the equivocal finding along the proximal third fi bular shaft.
[2016-07-14 20:20] VITALS: BP 132/60; PULSE 62; TEMP 97.6
== END 2016-07-14 20:30 | disposition home or self-care (01) ==
LOC: EC 15:45
DX: S82.391A Other fracture of lower end of right tibia, initial encounter for closed fracture (principal); S82.831A Other fracture of upper and lower end of right fibula, initial encounter for closed fracture; M54.31 Sciatica, right side; M85.851 Other specified disorders of bone density and structure, right thigh; M51.36 Other intervertebral disc degeneration, lumbar region; I25.10 Atherosclerotic heart disease of native coronary artery without angina pectoris; E78.5 Hyperlipidemia, unspecified; I25.2 Old myocardial infarction; E07.9 Disorder of thyroid, unspecified; I12.0 Hypertensive chronic kidney disease with stage 5 chronic kidney disease or end stage renal disease; N18.6 End stage renal disease; E11.22 Type 2 diabetes mellitus with diabetic chronic kidney disease; F41.9 Anxiety disorder, unspecified; F31.9 Bipolar disorder, unspecified; Z95.5 Presence of coronary angioplasty implant and graft; Z99.2 Dependence on renal dialysis; Z79.01 Long term (current) use of anticoagulants; Z79.4 Long term (current) use of insulin; Z79.82 Long term (current) use of aspirin; Z79.899 Other long term (current) drug therapy; Z88.0 Allergy status to penicillin; Z88.8 Allergy status to other drugs, medicaments and biological substances; Z91.048 Other nonmedicinal substance allergy status; W01.0XXA Fall on same level from slipping, tripping and stumbling without subsequent striking against object, initial encounter
CPT/HCPCS: 29515; 70450; 72110; 72125; 73502; 99284

== ENCOUNTER 2016-09-16 13:50 | Observation (INO) | payer BC, MEDICARE, OTHER ==
[2016-09-16] MEDS ORDERED: NITROGLYCERIN OINT 1 INCH/GM PACKET TOPICAL STA (14:24)
[2016-09-16] MEDS ORDERED: ASPIRIN 81 MG CHEW PO STA (14:24)
--- NOTE | 2016-09-16 14:30 | ED ---
General Adult HPI - General Chief complaint: Chest Pain Stated complaint: Chest Pain Time Seen by Provider: 09/16/16 13:55 Source: patient, EMS, RN notes reviewed Mode of arrival: EMS Limitations: no limitations - History of Present Illness Initial comments: This is a 61-year-old female who presents emergency Department complaining of chest pain. Patient states she's been having chest pain since Friday she had 3 episodes on Friday had a couple episodes again on Friday and today while in dialysis started having chest pain that went under her right breast and lasted for quite a while. Patient states the pain remained until the campus supervisor in the emesis gave her nitroglycerin. Patient denies any recent fever chills or cough. Patient denies any palpitations. Patient denies being short of breath or diaphoretic. Patient denies any nausea. Patient states after the nitroglycerin pain is been completely gone. Patient states she normally comes in the enzymes are normal and the second and third set usually elevated. Patient denies any recent injury or trauma. - Related Data Home Medications Medication Instructions Recorded Confirmed Famotidine [Pepcid] 20 mg PO DAILY 04/29/14 09/16/16 Furosemide [Lasix] 80 mg PO BID 08/04/14 09/16/16 Levothyroxine Sodium [Synthroid] 150 mcg PO MOTUWETHFRSA 08/04/14 09/16/16 HYDROcodone/APAP 10-325MG [[place] 1 tab PO Q4-6H PRN 07/05/15 09/16/16 10-325] Prochlorperazine [Compazine] 5 - 10 mg PO Q8HR PRN 07/05/15 09/16/16 amLODIPine [Norvasc] 10 mg PO HS 07/05/15 09/16/16 Aspirin EC [Ecotrin Low Dose] 81 mg PO DAILY 01/01/16 09/16/16 Escitalopram [Lexapro] 20 mg PO DAILY 01/01/16 09/16/16 Fosrenol 1000mg 1,000 mg PO AC-BID 01/01/16 09/16/16 Insulin Aspart (For Pump) [NovoLOG 0.01 unit SQ-PUMP CONTINUOUS 01/01/16 (For Pump)] Lactulose 10 gm PO DAILY PRN 01/01/16 09/16/16 Levothyroxine Sodium [Synthroid] 300 mcg PO DUBON 01/01/16 09/16/16 Nystatin [Nystop] 1 applic TOPICAL BID PRN 01/01/16 09/16/16 busPIRone HCL 15 mg PO BID 01/01/16 09/16/16 Calcium Acetate [PhosLo] 1,334 mg PO DIRECTED 02/27/16 09/16/16 Calcium Acetate [PhosLo] 2,001 mg PO TID-W/MEALS 02/27/16 09/16/16 Liquacel 1 dose PO DAILY 04/01/16 09/16/16 Renaplex-D 1 tab PO DAILY 04/01/16 09/16/16 lamoTRIgine [LaMICtal] 75 mg PO BID 04/01/16 09/16/16 Heparin(Unknown) 1 dose SQ MOWEFR 07/14/16 09/16/16 Iron(Unknown) 1 dose PO DIRECTED 07/14/16 09/16/16 LORazepam [Ativan] 1 mg PO BID 07/14/16 09/16/16 Nystatin 100,000Unit/gm Cream 1 applic TOPICAL BID PRN 07/14/16 09/16/16 [Mycostatin Cream] Sodium Polystyrene Sulfonate 15 gm PO SUTUSA 07/14/16 09/16/16 [Kayexalate] diphenhydrAMINE [Benadryl] 50 mg PO HS PRN 07/14/16 09/16/16 Previous Rx's Medication Instructions Recorded Clopidogrel [Plavix] 75 mg PO DAILY tab 05/10/14 Nitroglycerin Sl Tabs [Nitrostat] 0.4 mg SUBLINGUAL Q5M PRN #0 tab 05/10/14 Atorvastatin [Lipitor] 80 mg PO DAILY #30 tab 01/04/16 Allergies Allergy/AdvReac Type Severity Reaction Status Date / Time adhesive Allergy Rash/Hives Verified 09/16/16 14:34 metformin Allergy SUGAR Verified 09/16/16 14:34 LEVEL INCREASE Penicillins Allergy Rash/Hives Verified 09/16/16 14:34 Review of Systems ROS Statement: Those systems with pertinent positive or pertinent negative responses have been documented in the HPI. ROS Other: All systems not noted in ROS Statement are negative. Past Medical History Past Medical History: Coronary Artery Disease (CAD), Diabetes Mellitus, Dialysis , Hyperlipidemia, Hypertension, Myocardial Infarction ([place]), Osteoarthritis (OA) , Thyroid Disorder Additional Past Medical History / Comment(s): pt's stated "pt has had 16 mi's". ischemic cardiomyopathy. [place] in 2005 and September 2013, 12/29/15 STRESS WNL, Hepatitis A, ALLERGIC rhinitis,[place],ESRD/DIALYSIS, CARDIO-PULMONARY ARREST , hypertensive nephrosclerosis, Hepatitis A,Vitamin D deficiency Last Myocardial Infarction Date:: 09/2013 History of Any Multi-Drug Resistant Organisms: MRSA Date of last positivie culture/infection: 2011 MDRO Source:: blood Past Surgical History: Adenoidectomy, Appendectomy, Cholecystectomy, Heart Catheterization With Stent, Hysterectomy, Tonsillectomy Additional Past Surgical History / Comment(s): mary cataracts, LAP-BAND 2004, Laparoscopic cholecystectomy, FIBULA FX has metal pins in place,Left shoulder surgery, Hemodialysis Cataract bilateral with IOL, fistula and sx to" reroute it ",gets dialysis fri-fri-fri. has insulin pump Past Anesthesia/Blood Transfusion Reactions: Motion Sickness, Postoperative Nausea & Vomiting (PONV) Date of Last Stent Placement:: 2014 Past Psychological History: Anxiety, Bipolar, Depression Smoking Status: Never smoker Past Alcohol Use History: Rare Past Drug Use History: None Reported - Past Family History Mother Family Medical History: Congestive Heart Failure (CHF), Diabetes Mellitus, Hypertension Father History Unknown: Yes Family Medical History: Diabetes Mellitus Brother(s) Family Medical History: Diabetes Mellitus, Hyperlipidemia Additional Family Medical History / Comment(s): Hypertension chronic kidney disease General Exam - General Exam Comments Initial Comments: EKG shows sinus bradycardia at a rate of 50 bpm NV interval is 104 72 QRS is 96 Q-T intervals 460 QTC is 451. Patient's EKG shows no ST segment elevation or depression or T-wave abnormality is noted. Limitations: no limitations Course Vital Signs 09/16/16 09/16/16 13:54 14:40 Temperature 97.1 F L Pulse Rate 72 65 Respiratory 18 18 Rate Blood Pressure 129/60 129/62 O2 Sat by Pulse 95 98 Oximetry Medical Decision Making - Medical Decision Making Chest x-ray shows no acute abnormality. EKG shows normal sinus rhythm at 71 bpm NV interval is 200 QRS is 146 QT intervals 486 QTC is 528. Patient's EKG shows a right bundle branch block. When compared to an old EKG there are no significant changes. - Lab Data Result diagrams: 09/16/16 14:25 09/16/16 14:25 Lab Results 09/16/16 09/16/16 09/16/16 Range/Units 14:25 14:25 14:25 WBC 10.0 (3.8-10.6) k/uL RBC 3.49 L (3.80-5.40) m/uL Hgb 11.2 L (11.4-16.0) gm/dL Hct 33.2 L (34.0-46.0) % MCV 95.1 (80.0-100.0) fL MCH 32.2 (25.0-35.0) pg MCHC 33.9 (31.0-37.0) g/dL RDW 15.0 (11.5-15.5) % Plt Count 302 (150-450) k/uL Neutrophils % 85 % Lymphocytes % 5 % Monocytes % 4 % Eosinophils % 3 % Basophils % 0 % Neutrophils # 8.5 H (1.3-7.7) k/uL Lymphocytes # 0.5 L (1.0-4.8) k/uL Monocytes # 0.4 (0-1.0) k/uL Eosinophils # 0.3 (0-0.7) k/uL Basophils # 0.0 (0-0.2) k/uL PT (9.0-12.0) sec INR (<1.1) APTT (22.0-30.0) sec Sodium 135 L (137-145) mmol/L Potassium 4.3 (3.5-5.1) mmol/L Chloride 94 L (98-107) mmol/L Carbon Dioxide 24 (22-30) mmol/L Anion Gap 17 mmol/L BUN 25 H (7-17) mg/dL Creatinine 4.66 H (0.52-1.04) mg/dL Est GFR (MDRD) Af Amer 12 (>60 ml/min/1.73 sqM) Est GFR (MDRD) Non-Af 10 (>60 ml/min/1.73 sqM) Glucose 202 H (74-99) mg/dL Calcium 8.6 (8.4-10.2) mg/dL Magnesium 2.3 (1.6-2.3) mg/dL Total Bilirubin 0.7 (0.2-1.3) mg/dL AST 25 (14-36) U/L ALT 12 (9-52) U/L Alkaline Phosphatase 111 (38-126) U/L Total Creatine Kinase 46 (30-135) U/L CK-MB (CK-2) 1.0 (0.0-2.4) ng/mL CK-MB (CK-2) Rel Index 2.2 Troponin I 0.017 (0.000-0.034) ng/mL Total Protein 7.2 (6.3-8.2) g/dL Albumin 4.0 (3.5-5.0) g/dL 09/16/16 Range/Units 14:25 WBC (3.8-10.6) k/uL RBC (3.80-5.40) m/uL Hgb (11.4-16.0) gm/dL Hct (34.0-46.0) % MCV (80.0-100.0) fL MCH (25.0-35.0) pg MCHC (31.0-37.0) g/dL RDW (11.5-15.5) % Plt Count (150-450) k/uL Neutrophils % % Lymphocytes % % Monocytes % % Eosinophils % % Basophils % % Neutrophils # (1.3-7.7) k/uL Lymphocytes # (1.0-4.8) k/uL Monocytes # (0-1.0) k/uL Eosinophils # (0-0.7) k/uL Basophils # (0-0.2) k/uL PT 19.5 H (9.0-12.0) sec INR 2.0 (<1.1) APTT 45.8 H (22.0-30.0) sec Sodium (137-145) mmol/L Potassium (3.5-5.1) mmol/L Chloride (98-107) mmol/L Carbon Dioxide (22-30) mmol/L Anion Gap mmol/L BUN (7-17) mg/dL Creatinine (0.52-1.04) mg/dL Est GFR (MDRD) Af Amer (>60 ml/min/1.73 sqM) Est GFR (MDRD) Non-Af (>60 ml/min/1.73 sqM) Glucose (74-99) mg/dL Calcium (8.4-10.2) mg/dL Magnesium (1.6-2.3) mg/dL Total Bilirubin (0.2-1.3) mg/dL AST (14-36) U/L ALT (9-52) U/L Alkaline Phosphatase (38-126) U/L Total Creatine Kinase (30-135) U/L CK-MB (CK-2) (0.0-2.4) ng/mL CK-MB (CK-2) Rel Index Troponin I (0.000-0.034) ng/mL Total Protein (6.3-8.2) g/dL Albumin (3.5-5.0) g/dL Disposition Clinical Impression: Unstable angina Disposition: ADMITTED IP TO THIS HOSP Referrals: Kimberli Gar MD [Primary Care Provider] - 1-2 days Time of Disposition: 15:35
--- NOTE | 2016-09-16 14:54 | XR ---
EXAMINATION TYPE: XR chest 2V DATE OF EXAM: 09/16/2016 COMPARISON: 04/01/2016 HISTORY: 61-year-old female with chest pain TECHNIQUE: AP and lateral views FINDINGS: Rightward patient rotation ultrasound normal cardial mediastinal contours. The heart is borderline en larged. Mild diffuse interstitial prominence relatively similar prior. No consolidation or pleural ef fusion. Suture anchor within the left humeral head. IMPRESSION: Borderline heart size and chronic changes, possible mild pulmonary vascular congestion. No pulmonary edema or infiltrate.
[2016-09-16 14:58] LABS: Basophils % (A) 0 %; CH 31.3; Eosinophils # (A) 0.3 k/uL (0-0.7); Eosinophils % (A) 3 %; HCT 33.2 % (34.0-46.0); HDW 2.75; HGB 11.2 gm/dL (11.4-16.0); Luc # (Auto) 0.24; Luc % (Auto) 2; Lymphocytes # (A) 0.5 k/uL (1.0-4.8); Lymphocytes % (A) 5 %; MCH 32.2 pg (25.0-35.0); MCHC 33.9 g/dL (31.0-37.0); MCV 95.1 fL (80.0-100.0); Mean Platelet Volume 7.5; Monocytes # (A) 0.4 k/uL (0-1.0); Monocytes % (A) 4 %; Neutrophils # (A) 8.5 k/uL (1.3-7.7); Neutrophils % (A) 85 %; RBC 3.49 m/uL (3.80-5.40); WBC (Perox) 9.66
[2016-09-16 15:05] LABS: Calcium 8.6 mg/dL (8.4-10.2); Magnesium 2.3 mg/dL (1.6-2.3); Potassium 4.3 mmol/L (3.5-5.1); Total Bilirubin 0.7 mg/dL (0.2-1.3); Total Protein 7.2 g/dL (6.3-8.2)
[2016-09-16 15:22] LABS: Partial Thromboplastin Time 45.8 sec (22.0-30.0); Prothrombin Time 19.5 sec (9.0-12.0)
[2016-09-16 15:26] LABS: Troponin I 0.017 ng/mL (0.000-0.034)
[2016-09-16] MEDS ORDERED: NITROGLYCERIN SL TABS 0.4 MG TAB SUBLINGUAL PRN ×2 (15:36→18:27)
[2016-09-16 17:15] LABS: Glucose,Whole Blood 159 mg/dL (75-99)
[2016-09-16] MEDS: NITROGLYCERIN OINT 1 INCH/GM PACKET TOPICAL SCH ×2 (17:57→23:10)
[2016-09-16] MEDS ORDERED: NYSTATIN 100,000UNIT/GM CREAM 30 GM TUBE TOPICAL PRN (18:27)
[2016-09-16] MEDS ORDERED: PROCHLORPERAZINE 5 MG TAB PO PRN (18:27)
[2016-09-16] MEDS ORDERED: LACTULOSE 20 GM/30 ML CUP PO PRN (18:27)
[2016-09-16] MEDS ORDERED: NYSTATIN 100,000 UNIT/GM POWD 15 GM TOPICAL PRN (18:27)
[2016-09-16] MEDS ORDERED: IRON PO SCH (18:30)
[2016-09-16] MEDS ORDERED: HEPARIN SQ SCH (18:30)
[2016-09-16] MEDS: HYDROcodone/APAP 10-325MG 1 EACH TAB PO PRN (18:57)
[2016-09-16] MEDS: Insulin Aspart (For Pump) 100 UNIT/ML VIAL SQ-PUMP SCH ×2 (18:57→21:00)
[2016-09-16] MEDS: amLODIPine 10 MG TAB PO SCH (19:58)
[2016-09-16] MEDS: lamoTRIgine 25 MG TAB PO SCH (19:58)
[2016-09-16] MEDS: LORazepam 1 MG TAB PO SCH (19:58)
[2016-09-16] MEDS: busPIRone HCl 5 MG TAB PO SCH (19:59)
[2016-09-16 20:58] LABS: Glucose,Whole Blood 271 mg/dL (75-99)
[2016-09-16] MEDS ORDERED: diphenhydrAMINE 50 MG CAP PO PRN (21:00)
[2016-09-16 21:24] LABS: Troponin I 0.031 ng/mL (0.000-0.034)
[2016-09-17] MEDS: HYDROcodone/APAP 10-325MG 1 EACH TAB PO PRN ×4 (01:41→22:30)
[2016-09-17 03:13] LABS: Cholesterol 106 mg/dL (<200); Creatine Kinase 39 U/L (30-135); HDL Cholesterol 65 mg/dL (40-60); Triglycerides 156 mg/dL (<150)
[2016-09-17 03:26] LABS: Creatine Kinase MB 0.8 ng/mL (0.0-2.4); Troponin I <0.012 ng/mL (0.000-0.034)
[2016-09-17] MEDS: LEVOTHYROXINE 75 MCG TAB PO SCH (05:53)
[2016-09-17] MEDS: NITROGLYCERIN OINT 1 INCH/GM PACKET TOPICAL SCH ×4 (05:53→22:31)
[2016-09-17 06:59] LABS: Glucose,Whole Blood 284 mg/dL (75-99)
--- NOTE | 2016-09-17 08:59 | P.NPCON ---
History of Present Illness - Reason for Consult end stage renal disease - History of Present Illness Reason for consultation: End-stage renal disease History of present illness: Patient is a 61-year-old female seen in renal consultation for end- stage renal disease. She is maintained on hemodialysis on a Friday schedule. Patient presented to the hospital due to chest pain. Patient states chest pain initially started on Friday and she had 3 episodes of sharp pain which radiated to her back as well. She has been nauseous. Denies dyspnea. No vomiting or diarrhea. She had another episode of chest pain yesterday during dialysis which lasted longer than usual and therefore decided to come to the hospital. She has no active chest pain but states she is wearing a nitro patch which helps relieve the pain. She does have history of coronary artery disease with 3 stents placed in the past. No fever or chills. She did get hemodialysis yesterday. Hemodynamically stable. No other complaints at this time. Vital signs are stable. General: The patient appeared well nourished and normally developed. HEENT: Head exam is unremarkable. Neck is without jugular venous distension. LUNGS: Lungs are clear to auscultation and percussion. Breath sounds decreased. HEART: Rate and Rhythm are regular. First and second heart sounds normal. No murmurs, rubs or gallops. ABDOMEN: Abdominal exam reveals normal bowel sounds. Non-tender and non- distended. No evidence of peritonitis. EXTREMITITES: No clubbing, cyanosis, or edema. Past Medical History Past Medical History: Coronary Artery Disease (CAD), Diabetes Mellitus, Dialysis , Hyperlipidemia, Hypertension, Myocardial Infarction ([place]), Osteoarthritis ([place]) , Thyroid Disorder Additional Past Medical History / Comment(s): per past medical charting pt's stated "pt has had 16 mi's". ischemic cardiomyopathy. [place] in 2005 and September 2013, 12/29/15 STRESS WNL, Hepatitis A, ALLERGIC rhinitis,[place],ESRD/DIALYSIS , CARDIO-PULMONARY ARREST 07/05/14 and pt stated she has had short term memory problems since, hypertensive nephrosclerosis, Hepatitis A,Vitamin D deficiency, constipation.dm- uses an insulin pump. Last Myocardial Infarction Date:: 09/2013 History of Any Multi-Drug Resistant Organisms: MRSA Date of last positivie culture/infection: 2011 MDRO Source:: blood Past Surgical History: Adenoidectomy, Appendectomy, Cholecystectomy, Heart Catheterization With Stent, Hysterectomy, Tonsillectomy Additional Past Surgical History / Comment(s): mary cataracts, LAP-BAND 2005, Laparoscopic cholecystectomy, FIBULA FX has metal pins in place,Left shoulder surgery, Hemodialysis Cataract bilateral with IOL, fistula and sx to" reroute it ",gets dialysis mon-wed-fri. has insulin pump. no bp on left Past Anesthesia/Blood Transfusion Reactions: Motion Sickness, Postoperative Nausea & Vomiting (PONV) Date of Last Stent Placement:: 2014 Smoking Status: Never smoker - Past Family History Mother Family Medical History: Congestive Heart Failure (CHF), Diabetes Mellitus, Hypertension Father History Unknown: Yes Family Medical History: Diabetes Mellitus Brother(s) Family Medical History: Diabetes Mellitus, Hyperlipidemia Additional Family Medical History / Comment(s): Hypertension chronic kidney disease Medications and Allergies Home Medications Medication Instructions Recorded Confirmed Type Famotidine [Pepcid] 20 mg PO DAILY 04/29/14 09/16/16 History Furosemide [Lasix] 80 mg PO BID 08/04/14 09/16/16 History Levothyroxine Sodium [Synthroid] 150 mcg PO MOTUWETHFRSA 08/04/14 09/16/16 History HYDROcodone/APAP 10-325MG [[place] 1 tab PO Q4-6H PRN 07/05/15 09/16/16 History 10-325] Prochlorperazine [Compazine] 5 - 10 mg PO Q8HR PRN 07/05/15 09/16/16 History amLODIPine [Norvasc] 10 mg PO HS 07/05/15 09/16/16 History Aspirin EC [Ecotrin Low Dose] 81 mg PO DAILY 01/01/16 09/16/16 History Escitalopram [Lexapro] 20 mg PO DAILY 01/01/16 09/16/16 History Fosrenol 1000mg 1,000 mg PO AC-BID 01/01/16 09/16/16 History Insulin Aspart (For Pump) [NovoLOG 0.01 unit SQ-PUMP CONTINUOUS 01/01/16 History (For Pump)] Lactulose 10 gm PO DAILY PRN 01/01/16 09/16/16 History Levothyroxine Sodium [Synthroid] 300 mcg PO DUBON 01/01/16 09/16/16 History Nystatin [Nystop] 1 applic TOPICAL BID PRN 01/01/16 09/16/16 History busPIRone HCL 15 mg PO BID 01/01/16 09/16/16 History Calcium Acetate [PhosLo] 1,334 mg PO DIRECTED 02/27/16 09/16/16 History Calcium Acetate [PhosLo] 2,001 mg PO TID-W/MEALS 02/27/16 09/16/16 History Liquacel 1 dose PO DAILY 04/01/16 09/16/16 History Renaplex-D 1 tab PO DAILY 04/01/16 09/16/16 History lamoTRIgine [LaMICtal] 75 mg PO BID 04/01/16 09/16/16 History Heparin(Unknown) 1 dose SQ MOWEFR 07/14/16 09/16/16 History Iron(Unknown) 1 dose PO DIRECTED 07/14/16 09/16/16 History LORazepam [Ativan] 1 mg PO BID 07/14/16 09/16/16 History Nystatin 100,000Unit/gm Cream 1 applic TOPICAL BID PRN 07/14/16 09/16/16 History [Mycostatin Cream] Sodium Polystyrene Sulfonate 15 gm PO SUTUSA 07/14/16 09/16/16 History [Kayexalate] diphenhydrAMINE [Benadryl] 50 mg PO HS PRN 07/14/16 09/16/16 History Allergies Allergy/AdvReac Type Severity Reaction Status Date / Time adhesive Allergy Rash/Hives Verified 09/16/16 14:34 metformin Allergy SUGAR Verified 09/16/16 14:34 LEVEL INCREASE Penicillins Allergy Rash/Hives Verified 09/16/16 14:34 Physical Exam Vitals: Vital Signs Temp Pulse Pulse Resp BP BP Pulse Ox 09/17/16 07:57 98.0 F 65 18 129/40 94 L 09/17/16 04:00 16 09/17/16 03:56 97.9 F 64 16 119/51 93 L 09/16/16 23:31 16 09/16/16 23:18 98.2 F 70 16 119/38 94 L 09/16/16 19:52 16 09/16/16 19:40 97.7 F 72 16 137/43 93 L 09/16/16 17:03 97.8 F 68 16 152/49 98 09/16/16 16:55 98 09/16/16 16:24 18 129/62 98 09/16/16 14:40 65 18 129/62 98 09/16/16 13:54 97.1 F L 72 18 129/60 95 Intake and Output 09/16/16 09/17/16 09/17/16 22:59 06:59 14:59 Intake Total 90 250 Balance 90 250 Intake: Oral 90 250 Other: Voiding Method Toilet Toilet # Voids 1 Weight 127.9 kg Results - Lab Results Most recent lab results Calcium 8.6 mg/dL (8.4-10.2) 09/16/16 14:25 Magnesium 2.3 mg/dL (1.6-2.3) 09/16/16 14:25 09/16/16 14:25 09/16/16 14:25 Assessment and Plan Plan: Assessment: #1. End-stage renal disease maintained on hemodialysis on a Friday schedule. #2. Chest pain. Rule out cardiac etiology. #3. History of coronary artery disease status post 3 stents. #4. Chronic kidney disease mineral bone disease. #5. Hypertension with chronic kidney disease. Controlled. #6. Insulin-dependent diabetes mellitus. #7. History of hyperkalemia maintained on Kayexalate. Plan: Hemodialysis tomorrow with goal 2 liters ultrafiltration. Maintain Renvela and PhosLo with meals. Cardiology following. Thank you for the consultation. I will continue to follow patient with you during her hospital stay.
[2016-09-17] MEDS ORDERED: LIQUACEL PO SCH (09:00)
[2016-09-17] MEDS ORDERED: RENAPLEX D PO SCH (09:00)
[2016-09-17] MEDS ORDERED: NON-FORMULARY DRUG (Aspirin Ec 81 MG) PO SCH (09:00)
--- NOTE | 2016-09-17 09:02 | P.CRDCN ---
History of Present Illness Consult date: 09/17/16 History of present illness: This is a 61-year-old female with history of end-stage renal disease on hemodialysis, coronary artery disease with multivessel PCI, hypertension, diabetes, obesity and hypothyroidism has been having recurrent chest pains for the last several days. Each time the pain is different in location and manifestations. Sometimes the pain is in the back. But most of the time it appears to be under the left breast. She claimed sometimes the pain increases on deep breathing. The pains would last up to half an hour. Nitroglycerin seemed to relieve the pain. Since he came here patient has been on Nitropaste. She had one bout of chest pain last night which was mild. Her EKG showed a chronic changes of her right bundle and left axis and sinus rhythm. Her cardiac enzymes are within normal range and indeterminate. She did have nausea with the pain. No radiation of pain to the jaw or the arm. Her chest pains are inconsistent and appear to be atypical. However given her multiple risk factors and previous history underlying ischemic heart disease and progression. cannot be excluded. We'll continue maximal medical therapy at this time. If she has any further episode of chest pain, Patient may need cardiac catheterization. I will also discuss with Dr. JAE Jc who follows the patient regularly. Review of Systems As per the chart Past Medical History Past Medical History: Coronary Artery Disease (CAD), Diabetes Mellitus, Dialysis , Hyperlipidemia, Hypertension, Myocardial Infarction (MD), Osteoarthritis (OA) , Thyroid Disorder Additional Past Medical History / Comment(s): per past medical charting pt's stated "pt has had 16 mi's". ischemic cardiomyopathy. MD in 2005 and September 2013, 12/29/15 STRESS WNL, Hepatitis A, ALLERGIC rhinitis,MD,ESRD/DIALYSIS , CARDIO-PULMONARY ARREST 07/05/14 and pt stated she has had short term memory problems since, hypertensive nephrosclerosis, Hepatitis A,Vitamin D deficiency, constipation.dm- uses an insulin pump. Last Myocardial Infarction Date:: 09/2013 History of Any Multi-Drug Resistant Organisms: MRSA Date of last positivie culture/infection: 2011 MDRO Source:: blood Past Surgical History: Adenoidectomy, Appendectomy, Cholecystectomy, Heart Catheterization With Stent, Hysterectomy, Tonsillectomy Additional Past Surgical History / Comment(s): mary cataracts, LAP-BAND 2005, Laparoscopic cholecystectomy, FIBULA FX has metal pins in place,Left shoulder surgery, Hemodialysis Cataract bilateral with IOL, fistula and sx to" reroute it ",gets dialysis fri-fri-fri. has insulin pump. no bp on left Past Anesthesia/Blood Transfusion Reactions: Motion Sickness, Postoperative Nausea & Vomiting (PONV) Date of Last Stent Placement:: 2014 Smoking Status: Never smoker - Past Family History Mother Family Medical History: Congestive Heart Failure (CHF), Diabetes Mellitus, Hypertension Father History Unknown: Yes Family Medical History: Diabetes Mellitus Brother(s) Family Medical History: Diabetes Mellitus, Hyperlipidemia Additional Family Medical History / Comment(s): Hypertension chronic kidney disease Medications and Allergies Home Medications Medication Instructions Recorded Confirmed Type Famotidine [Pepcid] 20 mg PO DAILY 04/29/14 09/16/16 History Furosemide [Lasix] 80 mg PO BID 08/04/14 09/16/16 History Levothyroxine Sodium [Synthroid] 150 mcg PO MOTUWETHFRSA 08/04/14 09/16/16 History HYDROcodone/APAP 10-325MG [[place] 1 tab PO Q4-6H PRN 07/05/15 09/16/16 History 10-325] Prochlorperazine [Compazine] 5 - 10 mg PO Q8HR PRN 07/05/15 09/16/16 History amLODIPine [Norvasc] 10 mg PO HS 07/05/15 09/16/16 History Aspirin EC [Ecotrin Low Dose] 81 mg PO DAILY 01/01/16 09/16/16 History Escitalopram [Lexapro] 20 mg PO DAILY 01/01/16 09/16/16 History Fosrenol 1000mg 1,000 mg PO AC-BID 01/01/16 09/16/16 History Insulin Aspart (For Pump) [NovoLOG 0.01 unit SQ-PUMP CONTINUOUS 01/01/16 History (For Pump)] Lactulose 10 gm PO DAILY PRN 01/01/16 09/16/16 History Levothyroxine Sodium [Synthroid] 300 mcg PO BRIONES 01/01/16 09/16/16 History Nystatin [Nystop] 1 applic TOPICAL BID PRN 01/01/16 09/16/16 History busPIRone HCL 15 mg PO BID 01/01/16 09/16/16 History Calcium Acetate [PhosLo] 1,334 mg PO DIRECTED 02/27/16 09/16/16 History Calcium Acetate [PhosLo] 2,001 mg PO TID-W/MEALS 02/27/16 09/16/16 History Liquacel 1 dose PO DAILY 04/01/16 09/16/16 History Renaplex-D 1 tab PO DAILY 04/01/16 09/16/16 History lamoTRIgine [LaMICtal] 75 mg PO BID 04/01/16 09/16/16 History Heparin(Unknown) 1 dose SQ MOWEFR 07/14/16 09/16/16 History Iron(Unknown) 1 dose PO DIRECTED 07/14/16 09/16/16 History LORazepam [Ativan] 1 mg PO BID 07/14/16 09/16/16 History Nystatin 100,000Unit/gm Cream 1 applic TOPICAL BID PRN 07/14/16 09/16/16 History [Mycostatin Cream] Sodium Polystyrene Sulfonate 15 gm PO SUTUSA 07/14/16 09/16/16 History [Kayexalate] diphenhydrAMINE [Benadryl] 50 mg PO HS PRN 07/14/16 09/16/16 History Allergies Allergy/AdvReac Type Severity Reaction Status Date / Time adhesive Allergy Rash/Hives Verified 09/16/16 14:34 metformin Allergy SUGAR Verified 09/16/16 14:34 LEVEL INCREASE Penicillins Allergy Rash/Hives Verified 09/16/16 14:34 Physical Exam Vitals: Vital Signs Temp Pulse Pulse Resp BP BP Pulse Ox 09/17/16 07:57 98.0 F 65 18 129/40 94 L 09/17/16 04:00 16 09/17/16 03:56 97.9 F 64 16 119/51 93 L 09/16/16 23:31 16 09/16/16 23:18 98.2 F 70 16 119/38 94 L 09/16/16 19:52 16 09/16/16 19:40 97.7 F 72 16 137/43 93 L 09/16/16 17:03 97.8 F 68 16 152/49 98 09/16/16 16:55 98 09/16/16 16:24 18 129/62 98 09/16/16 14:40 65 18 129/62 98 09/16/16 13:54 97.1 F L 72 18 129/60 95 Intake and Output 09/16/16 09/17/16 09/17/16 22:59 06:59 14:59 Intake Total 90 250 Balance 90 250 Intake: Oral 90 250 Other: Voiding Method Toilet Toilet # Voids 1 Weight 127.9 kg GENERAL EXAM: Patient is alert and oriented and doesn't appear to be in any acute distress. Patient is will be easily based HEENT: Normocephalic. Normal reaction of pupils, equal size, normal range of extraocular motion. No erythema or exudates in the throat. NECK: No masses, no nuchal rigidity. CHEST: No chest wall deformity. LUNGS: Equal air entry with no crackles or wheeze. HEART: S1 and S2 normal with no audible mumurs or gallops. Regular rhythm, femorals equal on both sides.. ABDOMEN: No hepatosplenomegaly, normal bowel sounds, no guarding or rigidity. SKIN: No rashes CENTRAL NERVOUS SYSTEM: No focal deficits. EXTREMITIES: No cyanosis, clubbing or edema. Results 09/16/16 14:25 09/16/16 14:25 Cardiac Enzymes 09/16/16 09/16/16 09/16/16 Range/Units 14:25 14:25 20:38 AST 25 (14-36) U/L CK-MB (CK-2) 1.0 1.0 (0.0-2.4) ng/mL Troponin I 0.017 0.031 (0.000-0.034) ng/mL 09/17/16 Range/Units 02:29 AST (14-36) U/L CK-MB (CK-2) 0.8 (0.0-2.4) ng/mL Troponin I <0.012 (0.000-0.034) ng/mL Coagulation 09/16/16 Range/Units 14:25 PT 19.5 H (9.0-12.0) sec APTT 45.8 H (22.0-30.0) sec Lipids 09/17/16 Range/Units 02:29 Triglycerides 156 H (<150) mg/dL Cholesterol 106 (<200) mg/dL HDL Cholesterol 65 H (40-60) mg/dL CBC 09/16/16 Range/Units 14:25 WBC 10.0 (3.8-10.6) k/uL RBC 3.49 L (3.80-5.40) m/uL Hgb 11.2 L (11.4-16.0) gm/dL Hct 33.2 L (34.0-46.0) % Plt Count 302 (150-450) k/uL Comprehensive Metabolic Panel 09/16/16 Range/Units 14:25 Sodium 135 L (137-145) mmol/L Potassium 4.3 (3.5-5.1) mmol/L Chloride 94 L (98-107) mmol/L Carbon Dioxide 24 (22-30) mmol/L BUN 25 H (7-17) mg/dL Creatinine 4.66 H (0.52-1.04) mg/dL Glucose 202 H (74-99) mg/dL Calcium 8.6 (8.4-10.2) mg/dL AST 25 (14-36) U/L ALT 12 (9-52) U/L Alkaline Phosphatase 111 (38-126) U/L Total Protein 7.2 (6.3-8.2) g/dL Albumin 4.0 (3.5-5.0) g/dL Current Medications Generic Name Dose Route Start Last Admin Trade Name Freq PRN Reason Stop Dose Admin Hydrocodone Bitart/Acetaminophen 1 each 09/16/16 18:27 09/17/16 05:54 [place] 10 PO 1 each Q4HR PRN Administration Moderate Pain Amlodipine Besylate 10 mg 09/16/16 21:00 09/16/16 19:58 Norvasc PO 10 mg HS CYNTHIA Administration Aspirin 325 mg 09/17/16 09:00 Aspirin PO DAILY [facility] Atorvastatin Calcium 80 mg 09/17/16 09:00 Lipitor PO DAILY [facility] Buspirone HCl 15 mg 09/16/16 21:00 09/16/16 19:59 Buspar PO 15 mg BID CYNTHIA Administration Calcium Acetate 2,001 mg 09/17/16 07:30 Phoslo PO TID-W/MEALS [facility] Clopidogrel Bisulfate 75 mg 09/17/16 09:00 Plavix PO DAILY [facility] Diphenhydramine HCl 50 mg 09/16/16 21:00 09/16/16 23:06 Benadryl PO 50 mg HS PRN Administration Insomnia Escitalopram Oxalate 20 mg 09/17/16 09:00 Lexapro PO DAILY [facility] Famotidine 20 mg 07/04/17 09:00 Pepcid PO DAILY [facility] Furosemide 80 mg 09/17/16 09:00 Lasix PO BID@0900,1600 [facility] Insulin Aspart 0.01 unit 09/17/16 07:30 Novolog (For Pump) SQ-PUMP ACHS CYNTHIA Lactulose 10 gm 09/16/16 18:27 Cephulac PO DAILY PRN Constipation Lamotrigine 75 mg 09/16/16 21:00 09/16/16 19:58 Lamictal PO 75 mg BID CYNTHIA Administration Levothyroxine Sodium 150 mcg 09/17/16 06:30 09/17/16 05:53 Synthroid PO 150 mcg MoTuWeThFrSa@0630 CYNTHIA Administration Levothyroxine Sodium 300 mcg 09/22/16 06:30 Synthroid PO Briones@0630 [facility] Lorazepam 1 mg 09/16/16 21:00 09/16/16 19:58 Ativan PO 1 mg BID CYNTHIA Administration Nitroglycerin 1 inch 09/16/16 19:00 09/17/16 05:53 Nitro-Bid Oint TOPICAL 1 inch Q6HR [facility] Administration Nitroglycerin 0.4 mg 09/16/16 15:36 Nitrostat SUBLINGUAL Q5M PRN Chest Pain Nitroglycerin 0.4 mg 09/16/16 18:27 Nitrostat SUBLINGUAL Q5M PRN Chest Pain Nystatin 1 applic 09/16/16 18:27 Mycostatin Powder TOPICAL BID PRN Skin Irritation Prochlorperazine Maleate 10 mg 09/16/16 18:27 Compazine PO Q8HR PRN Nausea Sevelamer Carbonate 3,200 mg 09/17/16 07:30 Renvela PO AC-BID [facility] Sodium Polystyrene Sulfonate 15 gm 09/17/16 09:00 Kayexalate PO SUTUSA [facility] Intake and Output 09/16/16 09/17/16 09/17/16 22:59 06:59 14:59 Intake Total 90 250 Balance 90 250 Intake: Oral 90 250 Other: Voiding Method Toilet Toilet # Voids 1 Weight 127.9 kg 09/16/16 14:25 09/16/16 14:25 EKG Interpretations (text) Sinus rhythm with a right bundle branch and left axis deviation Assessment and Plan Plan: #1. Recurrent chest pains, rule out angina. So far cardiac enzymes are not suggestive of acute MD. EKG did not reveal any acute changes. #2. Known coronary artery disease. #3. Diabetes mellitus. #4. Chronic renal failure on dialysis. #5. Hyperlipidemia. #6. Previous myocardial infarction. Plan: Patient chest pains have some atypical features. But the pains are relieved with nitroglycerin. Enzymes studies are not helpful and indeterminate in nature. EKGs did not reveal any acute changes. However given her multiple risk factors and previous history, cardiac catheterization may be the best way to diagnose and rule out any progression of the disease. I will discuss with Dr. JAE cJ.
[2016-09-17] MEDS: CLOPIDOGREL 75 MG TAB PO SCH (10:40)
[2016-09-17] MEDS: lamoTRIgine 25 MG TAB PO SCH ×2 (10:40→20:20)
[2016-09-17] MEDS: ASPIRIN 325 MG TAB PO SCH (10:40)
[2016-09-17] MEDS: ATORVASTATIN 80 MG TAB PO SCH (10:40)
[2016-09-17] MEDS: SODIUM POLYSTYRENE SULFONATE 15 GM/60 ML BOTTLE PO SCH ×2 (10:40→10:48)
[2016-09-17] MEDS: LORazepam 1 MG TAB PO SCH ×2 (10:40→20:20)
[2016-09-17] MEDS: FUROSEMIDE 80 MG TAB PO SCH ×2 (10:40→16:29)
[2016-09-17] MEDS: busPIRone HCl 5 MG TAB PO SCH ×2 (10:40→20:20)
[2016-09-17] MEDS: ESCITALOPRAM 20 MG TAB PO SCH (10:40)
[2016-09-17] MEDS: SEVELAMER 800 MG TAB PO SCH ×2 (10:41→17:02)
[2016-09-17] MEDS: FAMOTIDINE 20 MG TAB PO SCH (10:41)
[2016-09-17] MEDS: CALCIUM ACETATE 667 MG CAP PO SCH ×4 (10:41→17:02)
[2016-09-17] MEDS: Insulin Aspart (For Pump) 100 UNIT/ML VIAL SQ-PUMP SCH ×4 (10:50→22:32)
--- NOTE | 2016-09-17 11:06 | P.HPIM ---
History of Present Illness H&P Date: 09/17/16 This is a 61-year-old female patient of Dr. Gar and Dr. JAE Jc as an outpatient with a past medical history significant for coronary artery disease and prior coronary artery stenting with the patient underwent stenting of the proximal left anterior descending artery as well as ramus intermedius in April 2014 followed by stenting for in-stent restenosis in a small diagonal branch in December 2015 with known diffuse disease in the LAD beyond the stented segment which was unchanged. History of diabetes type 2, end stage renal disease on hemodialysis Friday, as well as dyslipidemia. Patient states that she had several episodes of chest pain. The first was a stabbing type pain that went from her back to her chest. The second episode she had chest pain under her left breast. The third time she also had chest pain under the left breast and nitroglycerin was taken each time and cleared her pain. Yesterday while at hemodialysis the pain came back and she decided that it was time to come into the hospital for evaluation. Patient complains of feeling "drained." She also states she's had a cough starting today but has had no episodes of coughing or choking with food. She does complain of some generalized abdominal discomfort and tenderness. No diarrhea. She states her stools have been hard and small amount in the last one was yesterday morning. She is on lactulose and knows that this helps with constipation. She came into [facility] emergency center for evaluation. Troponins have been 0.017, 0.031, 0.012. Patient has been placed on the observation unit and seen in consultation by Dr. Souza and hemodialysis will be resumed. Patient is also been seen by Dr. Jackson with plan to discuss case with Dr. JAE Jc with possible plan for heart catheterization. Patient is currently pain- free. Review of Systems All systems: negative Constitutional: Reports fatigue, Reports weakness, Denies chills, Denies fever Eyes: denies blurred vision, denies pain Ears, nose, mouth and throat: Denies headache, Denies sore throat Cardiovascular: Reports chest pain, Denies shortness of breath Respiratory: Reports cough, Denies cough with sputum, Denies dyspnea Gastrointestinal: Reports abdominal pain, Reports constipation, Denies diarrhea , Denies nausea, Denies vomiting Genitourinary: Denies dysuria, Denies hematuria Musculoskeletal: Denies myalgias Integumentary: Denies pruritus, Denies rash Neurological: Denies numbness, Denies weakness Psychiatric: Denies anxiety, Denies depression Endocrine: Denies fatigue, Denies weight change Past Medical History Past Medical History: Coronary Artery Disease (CAD), Diabetes Mellitus, Dialysis , Hyperlipidemia, Hypertension, Myocardial Infarction (NE), Osteoarthritis (OA) , Thyroid Disorder Additional Past Medical History / Comment(s): per past medical charting pt's stated "pt has had 16 mi's". ischemic cardiomyopathy. NE in 2005 and September 2013, 12/29/15 STRESS WNL, Hepatitis A, ALLERGIC rhinitis,NE,ESRD/DIALYSIS , CARDIO-PULMONARY ARREST 07/05/14 and pt stated she has had short term memory problems since, hypertensive nephrosclerosis, Hepatitis A,Vitamin D deficiency, constipation.dm- uses an insulin pump. Last Myocardial Infarction Date:: 09/2013 History of Any Multi-Drug Resistant Organisms: MRSA Date of last positivie culture/infection: 2011 MDRO Source:: blood Past Surgical History: Adenoidectomy, Appendectomy, Cholecystectomy, Heart Catheterization With Stent, Hysterectomy, Tonsillectomy Additional Past Surgical History / Comment(s): mary cataracts, LAP-BAND 2004, Laparoscopic cholecystectomy, FIBULA FX has metal pins in place,Left shoulder surgery, Hemodialysis Cataract bilateral with IOL, fistula and sx to" reroute it ",gets dialysis mon-fri-fri. has insulin pump. no bp on left Past Anesthesia/Blood Transfusion Reactions: Motion Sickness, Postoperative Nausea & Vomiting (PONV) Date of Last Stent Placement:: 2014 Smoking Status: Never smoker - Past Family History Mother Family Medical History: Congestive Heart Failure (CHF), Diabetes Mellitus, Hypertension Father History Unknown: Yes Family Medical History: Diabetes Mellitus Brother(s) Family Medical History: Diabetes Mellitus, Hyperlipidemia Additional Family Medical History / Comment(s): Hypertension chronic kidney disease Medications and Allergies Home Medications Medication Instructions Recorded Confirmed Type Famotidine [Pepcid] 20 mg PO DAILY 04/29/14 09/16/16 History Furosemide [Lasix] 80 mg PO BID 08/04/14 09/16/16 History Levothyroxine Sodium [Synthroid] 150 mcg PO MOTUWETHFRSA 08/04/14 09/16/16 History HYDROcodone/APAP 10-325MG [[place] 1 tab PO Q4-6H PRN 07/05/15 09/16/16 History 10-325] Prochlorperazine [Compazine] 5 - 10 mg PO Q8HR PRN 07/05/15 09/16/16 History amLODIPine [Norvasc] 10 mg PO HS 07/05/15 09/16/16 History Aspirin EC [Ecotrin Low Dose] 81 mg PO DAILY 01/01/16 09/16/16 History Escitalopram [Lexapro] 20 mg PO DAILY 01/01/16 09/16/16 History Fosrenol 1000mg 1,000 mg PO AC-BID 01/01/16 09/16/16 History Insulin Aspart (For Pump) [NovoLOG 0.01 unit SQ-PUMP CONTINUOUS 01/01/16 History (For Pump)] Lactulose 10 gm PO DAILY PRN 01/01/16 09/16/16 History Levothyroxine Sodium [Synthroid] 300 mcg PO DUBON 01/01/16 09/16/16 History Nystatin [Nystop] 1 applic TOPICAL BID PRN 01/01/16 09/16/16 History busPIRone HCL 15 mg PO BID 01/01/16 09/16/16 History Calcium Acetate [PhosLo] 1,334 mg PO DIRECTED 02/27/16 09/16/16 History Calcium Acetate [PhosLo] 2,001 mg PO TID-W/MEALS 02/27/16 09/16/16 History Liquacel 1 dose PO DAILY 04/01/16 09/16/16 History Renaplex-D 1 tab PO DAILY 04/01/16 09/16/16 History lamoTRIgine [LaMICtal] 75 mg PO BID 04/01/16 09/16/16 History Heparin(Unknown) 1 dose SQ MOWEFR 07/14/16 09/16/16 History Iron(Unknown) 1 dose PO DIRECTED 07/14/16 09/16/16 History LORazepam [Ativan] 1 mg PO BID 07/14/16 09/16/16 History Nystatin 100,000Unit/gm Cream 1 applic TOPICAL BID PRN 07/14/16 09/16/16 History [Mycostatin Cream] Sodium Polystyrene Sulfonate 15 gm PO SUTUSA 07/14/16 09/16/16 History [Kayexalate] diphenhydrAMINE [Benadryl] 50 mg PO HS PRN 07/14/16 09/16/16 History Allergies Allergy/AdvReac Type Severity Reaction Status Date / Time adhesive Allergy Rash/Hives Verified 09/16/16 14:34 metformin Allergy SUGAR Verified 09/16/16 14:34 LEVEL INCREASE Penicillins Allergy Rash/Hives Verified 09/16/16 14:34 Physical Exam Vitals: Vital Signs Temp Pulse Pulse Resp BP BP Pulse Ox 09/17/16 07:57 98.0 F 65 18 129/40 94 L 09/17/16 04:00 16 09/17/16 03:56 97.9 F 64 16 119/51 93 L 09/16/16 23:31 16 09/16/16 23:18 98.2 F 70 16 119/38 94 L 09/16/16 19:52 16 09/16/16 19:40 97.7 F 72 16 137/43 93 L 09/16/16 17:03 97.8 F 68 16 152/49 98 09/16/16 16:55 98 09/16/16 16:24 18 129/62 98 09/16/16 14:40 65 18 129/62 98 09/16/16 13:54 97.1 F L 72 18 129/60 95 Intake and Output 09/16/16 09/17/16 09/17/16 22:59 06:59 14:59 Intake Total 90 250 Balance 90 250 Intake: Oral 90 250 Other: Voiding Method Toilet Toilet # Voids 1 Weight 127.9 kg General appearance: cooperative, morbidly obese - EENT Eyes: anicteric sclerae, EOMI, PERRLA, dentition normal, normal appearance ENT: no hard of hearing, hearing grossly normal, NA/AT, normal oropharynx, no other, no pharyngeal erythema, no thrush, no tonsillar exudates, no tonsillar swelling - Neck Neck: no lymphadenopathy, normal ROM, no other, no rigidity, no stridor, no thyromegaly - Respiratory Respiratory: bilateral: CTA, negative: dullness, rales, rhonchi, wheezing, prolonged expiration - Cardiovascular Heart rate: 36 Rhythm: regular Heart sounds: normal: S1, S2 Abnormal Heart Sounds: no systolic murmur, no diastolic murmur, no rub, no S3 Gallop, no S4 Gallop, no click, no other leg Peripheral Edema: bilateral: Trace - Gastrointestinal General gastrointestinal: normal bowel sounds, soft - Integumentary Integumentary: normal, normal turgor - Neurologic Neurologic: CNII-XII intact, focal deficits (none) - Musculoskeletal Musculoskeletal: generalized weakness, strength equal bilaterally - Psychiatric Psychiatric: A&O x's 3, appropriate affect, intact judgment & insight Results CBC & Chem 7: 09/16/16 14:25 09/16/16 14:25 Labs: Abnormal Lab Results - Last 24 Hours (Table) 09/16/16 09/16/16 09/16/16 Range/Units 14:25 14:25 14:25 RBC 3.49 L (3.80-5.40) m/uL Hgb 11.2 L (11.4-16.0) gm/dL Hct 33.2 L (34.0-46.0) % Neutrophils # 8.5 H (1.3-7.7) k/uL Lymphocytes # 0.5 L (1.0-4.8) k/uL PT 19.5 H (9.0-12.0) sec APTT 45.8 H (22.0-30.0) sec Sodium 135 L (137-145) mmol/L Chloride 94 L (98-107) mmol/L BUN 25 H (7-17) mg/dL Creatinine 4.66 H (0.52-1.04) mg/dL Glucose 202 H (74-99) mg/dL POC Glucose (mg/dL) (75-99) mg/dL Total Creatine Kinase (30-135) U/L Triglycerides (<150) mg/dL HDL Cholesterol (40-60) mg/dL 09/16/16 09/16/16 09/16/16 Range/Units 17:14 20:38 20:57 RBC (3.80-5.40) m/uL Hgb (11.4-16.0) gm/dL Hct (34.0-46.0) % Neutrophils # (1.3-7.7) k/uL Lymphocytes # (1.0-4.8) k/uL PT (9.0-12.0) sec APTT (22.0-30.0) sec Sodium (137-145) mmol/L Chloride (98-107) mmol/L BUN (7-17) mg/dL Creatinine (0.52-1.04) mg/dL Glucose (74-99) mg/dL POC Glucose (mg/dL) 159 H 271 H (75-99) mg/dL Total Creatine Kinase 151 H (30-135) U/L Triglycerides (<150) mg/dL HDL Cholesterol (40-60) mg/dL 09/17/16 09/17/16 Range/Units 02:29 06:56 RBC (3.80-5.40) m/uL Hgb (11.4-16.0) gm/dL Hct (34.0-46.0) % Neutrophils # (1.3-7.7) k/uL Lymphocytes # (1.0-4.8) k/uL PT (9.0-12.0) sec APTT (22.0-30.0) sec Sodium (137-145) mmol/L Chloride (98-107) mmol/L BUN (7-17) mg/dL Creatinine (0.52-1.04) mg/dL Glucose (74-99) mg/dL POC Glucose (mg/dL) 284 H (75-99) mg/dL Total Creatine Kinase (30-135) U/L Triglycerides 156 H (<150) mg/dL HDL Cholesterol 65 H (40-60) mg/dL Thrombosis Risk Factor Assmnt - DVT/VTE Prophylaxis DVT/VTE Prophylaxis: Pharmacologic Prophylaxis ordered Assessment and Plan Plan: 1. Chest pain in a patient with history of coronary artery disease. Cardiology has evaluated with plan for possible heart catheterization. Continue aspirin, Lipitor, Plavix. 2. CAD: And follows with cardiology Dr. DOLLY Jc regular basis. Continue as in #1. 3. End-stage renal disease on hemodialysis. The patient has been seen by Dr. Souza with plan for resuming hemodialysis while hospitalized. 4. Type 2 diabetes on insulin pump. Continue insulin pump. 5. Hyperlipidemia. Continue Lipitor. 6. Hypothyroidism. Continue levothyroxine alternating with 150 g and 300 g. 7. Hypertension, hypertensive cardiovascular disease. Continue Norvasc, Lasix 8. Generalized anxiety disorder and recurrent depression. Continue Lexapro and BuSpar. 9. Gastroesophageal reflux disease. Pepcid. 10. COPD. Continue Pulmicort and DuoNeb. 11. Chronic pain syndrome. Continue hydrocodone. 12. Constipation. Lactulose changed to scheduled. Patient is on the observation unit Discharge plan: Return home Impression and plan of care have been directed as dictated by the signing physician. Emely Contreras nurse practitioner acting as scribe for signing physician.
[2016-09-17] MEDS: LACTULOSE 20 GM/30 ML CUP PO SCH (11:24)
[2016-09-17 12:06] LABS: Glucose,Whole Blood 146 mg/dL (75-99)
[2016-09-17 16:59] LABS: Glucose,Whole Blood 80 mg/dL (75-99)
[2016-09-17] MEDS: amLODIPine 10 MG TAB PO SCH (20:20)
[2016-09-17 21:22] LABS: Glucose,Whole Blood 122 mg/dL (75-99)
[2016-09-18] MEDS: LEVOTHYROXINE 75 MCG TAB PO SCH (04:08)
[2016-09-18] MEDS: HYDROcodone/APAP 10-325MG 1 EACH TAB PO PRN ×2 (04:08→10:12)
[2016-09-18] MEDS: NITROGLYCERIN OINT 1 INCH/GM PACKET TOPICAL SCH ×2 (04:17→15:17)
[2016-09-18 06:21] LABS: CHCM 31.6; HCT 30.7 % (34.0-46.0); HDW 2.61; Hypochromasia Slight; MCHC 32.5 g/dL (31.0-37.0); MCV 98.4 fL (80.0-100.0); Mean Platelet Volume 7.4; RBC 3.12 m/uL (3.80-5.40); RDW 14.7 % (11.5-15.5); WBC 9.9 k/uL (3.8-10.6)
[2016-09-18 06:32] LABS: Calcium 8.4 mg/dL (8.4-10.2); Potassium 5.3 mmol/L (3.5-5.1)
[2016-09-18 06:56] LABS: Glucose,Whole Blood 266 mg/dL (75-99)
[2016-09-18 08:09] VITALS: RESP 18; TEMP 98.2
[2016-09-18] MEDS: Insulin Aspart (For Pump) 100 UNIT/ML VIAL SQ-PUMP SCH ×2 (09:47→13:37)
[2016-09-18] MEDS: LACTULOSE 20 GM/30 ML CUP PO SCH (10:31)
[2016-09-18] MEDS: lamoTRIgine 25 MG TAB PO SCH (10:32)
[2016-09-18] MEDS: FAMOTIDINE 20 MG TAB PO SCH (10:33)
[2016-09-18] MEDS: CLOPIDOGREL 75 MG TAB PO SCH (10:33)
[2016-09-18] MEDS: busPIRone HCl 5 MG TAB PO SCH (10:33)
[2016-09-18] MEDS: SEVELAMER 800 MG TAB PO SCH (10:33)
[2016-09-18] MEDS: FUROSEMIDE 80 MG TAB PO SCH (10:33)
[2016-09-18] MEDS: ESCITALOPRAM 20 MG TAB PO SCH (10:33)
[2016-09-18] MEDS: ASPIRIN 325 MG TAB PO SCH (10:33)
[2016-09-18] MEDS: LORazepam 1 MG TAB PO SCH (10:33)
[2016-09-18] MEDS: CALCIUM ACETATE 667 MG CAP PO SCH ×2 (10:34→12:19)
[2016-09-18] MEDS: ATORVASTATIN 80 MG TAB PO SCH (10:34)
--- NOTE | 2016-09-18 10:37 | P.PN ---
Subjective Patient is seen in follow-up for end-stage renal disease. She is maintained on hemodialysis on a Friday schedule. Patient presented to the hospital with chest pain. Patient states yesterday she had one episode of chest pain which resolved spontaneously after a couple of minutes. Her oral intake is good. Hemodynamically she is stable. No other complaints at this time. Vital signs are stable. General: The patient appeared well nourished and normally developed. HEENT: Head exam is unremarkable. Neck is without jugular venous distension. LUNGS: Lungs are clear to auscultation and percussion. Breath sounds decreased. HEART: Rate and Rhythm are regular. First and second heart sounds normal. No murmurs, rubs or gallops. ABDOMEN: Abdominal exam reveals normal bowel sounds. Non-tender and non- distended. No evidence of peritonitis. EXTREMITITES: No clubbing, cyanosis, or edema. Objective - Vital Signs Vital signs: Vital Signs Temp 98.2 F 09/18/16 08:00 Pulse 57 L 09/18/16 08:00 Resp 18 09/18/16 08:00 BP 148/62 09/18/16 08:00 Pulse Ox 95 09/18/16 08:00 Intake & Output 09/17/16 09/18/16 09/18/16 18:59 06:59 18:59 Intake Total 540 200 Balance 540 200 Intake: Oral 540 200 Other: Voiding Method Toilet Toilet Toilet # Voids 1 1 - Labs CBC & Chem 7: 09/18/16 05:54 09/18/16 05:54 Labs: Abnormal Lab Results - Last 24 Hours (Table) 09/17/16 09/17/16 09/18/16 Range/Units 12:05 21:20 05:54 RBC 3.12 L (3.80-5.40) m/uL Hgb 10.0 L (11.4-16.0) gm/dL Hct 30.7 L (34.0-46.0) % Sodium (137-145) mmol/L Potassium (3.5-5.1) mmol/L Chloride (98-107) mmol/L BUN (7-17) mg/dL Creatinine (0.52-1.04) mg/dL Glucose (74-99) mg/dL POC Glucose (mg/dL) 146 H 122 H (75-99) mg/dL 09/18/16 09/18/16 Range/Units 05:54 06:53 RBC (3.80-5.40) m/uL Hgb (11.4-16.0) gm/dL Hct (34.0-46.0) % Sodium 130 L (137-145) mmol/L Potassium 5.3 H (3.5-5.1) mmol/L Chloride 93 L (98-107) mmol/L BUN 50 H (7-17) mg/dL Creatinine 8.43 H* (0.52-1.04) mg/dL Glucose 247 H (74-99) mg/dL POC Glucose (mg/dL) 266 H (75-99) mg/dL Assessment and Plan Plan: Assessment: #1. End-stage renal disease maintained on hemodialysis on a Friday schedule. #2. Chest pain. Rule out cardiac etiology. #3. History of coronary artery disease status post 3 stents. #4. Chronic kidney disease mineral bone disease. #5. Hypertension with chronic kidney disease. Controlled. #6. Insulin-dependent diabetes mellitus. #7. History of hyperkalemia maintained on Kayexalate. Plan: Hemodialysis today with goal 3-4 liters ultrafiltration. Maintain Renvela and PhosLo with meals. Cardiology following - no plans for cardiac catheterization at this time. Stable to be discharged home from nephrology standpoint after dialysis today.
--- NOTE | 2016-09-18 10:42 | ECHOF ---
Referral Reason:Chest pain MEASUREMENTS -------- HEIGHT: 170.2 cm WEIGHT: 131.1 kg BP: 129/62 RVIDd: 3.3 cm (< 3.3) IVSd: 1.5 cm (0.6 - 1.1) LVIDd: 4.2 cm (3.9 - 5.3) LVPWd: 1.4 cm (0.6 - 1.1) IVSs: 1.8 cm LVIDs: 2.9 cm LVPWs: 1.8 cm LA Diam: 4.0 cm (2.7 - 3.8) LAESV Index (A-L): 21.44 ml/m Ao Diam: 3.0 cm (2.0 - 3.7) AV Cusp: 1.7 cm (1.5 - 2.6) MV EXCURSION: 10.412 mm (> 18.000) MV EF SLOPE: 64 mm/s (70 - 150) EPSS: 0.6 cm MV E Errol: 0.87 m/s MV DecT: 204 ms MV A Errol: 0.63 m/s MV E/A Ratio: 1.38 RAP: 5.00 mmHg RVSP: 26.20 mmHg FINDINGS -------- Sinus rhythm. This was a technically adequate study. The left ventricular size is normal. There is moderate concentric left ventricular hypertrophy. Overall left ventricular systolic function is normal with, an EF between 55 - 60 %. The right ventricle is mildly enlarged. The left atrium is mildly dilated. The right atrium is normal in size. Aortic valve is trileaflet and is mildly thickened. Mild mitral annular calcification present. Mild mitral regurgitation is present. Mild tricuspid regurgitation present. Right ventricular systolic pressure is normal at < 35 mmHg. The pulmonic valve was not well visualized. The aortic root size is normal. IVC Not well visulized. The pericardium is normal. CONCLUSIONS -------- 1. Sinus rhythm. 2. Mild mitral annular calcification present. 3. Mild mitral regurgitation is present. 4. Mild tricuspid regurgitation present. 5. Right ventricular systolic pressure is normal at < 35 mmHg. 6. The pulmonic valve was not well visualized. 7. The aortic root size is normal. 8. IVC Not well visulized. 9. The pericardium is normal. 10. This was a technically adequate study. 11. The left ventricular size is normal. 12. There is moderate concentric left ventricular hypertrophy. 13. Overall left ventricular systolic function is normal with, an EF between 55 - 60 %. 14. The right ventricle is mildly enlarged. 15. The left atrium is mildly dilated. 16. The right atrium is normal in size. 17. Aortic valve is trileaflet and is mildly thickened. [employer] COACH: Traci Jean RDCS
[2016-09-18 11:38] VITALS: BP 151/65; PULSE 64
[2016-09-18 12:09] LABS: Glucose,Whole Blood 210 mg/dL (75-99)
--- NOTE | 2016-09-18 15:02 | P.PN ---
Subjective Principal diagnosis: Chest pain This is a 61-year-old female with history of end-stage renal disease on hemodialysis, coronary artery disease with multivessel PCI, hypertension, diabetes, obesity and hypothyroidism has been having recurrent chest pains for the last several days. Each time the pain is different in location and manifestations. Sometimes the pain is in the back. But most of the time it appears to be under the left breast. She claimed sometimes the pain increases on deep breathing. The pains would last up to half an hour. Nitroglycerin seemed to relieve the pain. Since he came here patient has been on Nitropaste. She had one bout of chest pain last night which was mild. Her EKG showed a chronic changes of her right bundle and left axis and sinus rhythm. Her cardiac enzymes are within normal range and indeterminate. She did have nausea with the pain. No radiation of pain to the jaw or the arm. Her chest pains are inconsistent and appear to be atypical. However given her multiple risk factors and previous history underlying ischemic heart disease and progression cannot be excluded. Her case was discussed by Dr. Jackson with Dr. Jovana Jc today and the decision was made to discharge the patient home from cardiology's perspective and make an appointment with Dr. Jovana Jc next week. Creatinine today 8.4, potassium 5.3, patient will have dialysis today Objective - Vital Signs Vital signs: Vital Signs Temp 98.2 F 09/18/16 11:37 Pulse 64 09/18/16 12:00 Resp 18 09/18/16 12:00 BP 151/65 09/18/16 11:37 Pulse Ox 98 09/18/16 11:37 Intake & Output 09/17/16 09/18/16 09/18/16 18:59 06:59 18:59 Intake Total 540 200 420 Balance 540 200 420 Intake: Oral 540 200 420 Other: Voiding Method Toilet Toilet Toilet # Voids 1 1 - Exam PHYSICAL EXAMINATION: HEENT: Head is atraumatic, normocephalic. Pupils equal, round. Neck is supple. There is no elevated jugular venous pressure. HEART EXAMINATION: Heart S1, S2 normal. No murmur or gallop heard. CHEST EXAMINATION: Lungs are clear to auscultation and precussion. No chest wall tenderness is noted on palpation or with deep breathing. ABDOMEN: Soft, nontender. Bowel sounds are heard. No organomegaly noted. EXTREMITIES: 2+ peripheral pulses with no evidence of peripheral edema and no calf tenderness noted. NEUROLOGIC patient is awake, alert and oriented -3. . - Labs CBC & Chem 7: 09/18/16 05:54 09/18/16 05:54 Labs: Abnormal Lab Results - Last 24 Hours (Table) 09/17/16 09/18/16 09/18/16 Range/Units 21:20 05:54 05:54 RBC 3.12 L (3.80-5.40) m/uL Hgb 10.0 L (11.4-16.0) gm/dL Hct 30.7 L (34.0-46.0) % Sodium 130 L (137-145) mmol/L Potassium 5.3 H (3.5-5.1) mmol/L Chloride 93 L (98-107) mmol/L BUN 50 H (7-17) mg/dL Creatinine 8.43 H* (0.52-1.04) mg/dL Glucose 247 H (74-99) mg/dL POC Glucose (mg/dL) 122 H (75-99) mg/dL 09/18/16 09/18/16 Range/Units 06:53 12:05 RBC (3.80-5.40) m/uL Hgb (11.4-16.0) gm/dL Hct (34.0-46.0) % Sodium (137-145) mmol/L Potassium (3.5-5.1) mmol/L Chloride (98-107) mmol/L BUN (7-17) mg/dL Creatinine (0.52-1.04) mg/dL Glucose (74-99) mg/dL POC Glucose (mg/dL) 266 H 210 H (75-99) mg/dL Assessment and Plan (1) Renal failure (ARF), acute on chronic Status: Acute (2) Unstable angina Status: Acute (3) Anasarca Status: Acute (4) CAD (coronary artery disease) Status: Acute (5) DKA (diabetic ketoacidoses) Status: Acute (6) Diabetes Status: Acute (7) HTN (hypertension) Status: Acute (8) Obesity Status: Acute (9) Presence of stent in LAD coronary artery Status: Acute Plan: From cardiology's perspective, the patient's case was discussed by Dr. Jackson with Dr. Jovana Jc in the decision was made to discharge the patient home and have her follow-up with him in the office. DNP note has been reviewed, I agree with a documented findings and plan of care. Patient was seen and examined.
--- NOTE | 2016-09-18 15:16 | P.DS ---
Providers Date of admission: 09/16/16 15:36 Expected date of discharge: 09/18/16 Attending physician: Luiza Estrella Consults: 09/16/16 15:36 Consult Physician Urgent Consulting Provider: [facility] Consult Reason/Comments: Unstable angina Do you want consulting provider notified?: Yes 09/16/16 19:20 Consult Physician Urgent Consulting Provider: Tate Souza Consult Reason/Comments: Hemodialysis patient Do you want consulting provider notified?: Yes, Notify in am Primary care physician: Kimberli Gar [facility] Course: This is a 61-year-old female patient of Dr. Gar and Dr. JAE Jc as an outpatient with a past medical history significant for coronary artery disease and prior coronary artery stenting with the patient underwent stenting of the proximal left anterior descending artery as well as ramus intermedius in April 2014 followed by stenting for in-stent restenosis in a small diagonal branch in December 2015 with known diffuse disease in the LAD beyond the stented segment which was unchanged. History of diabetes type 2, end stage renal disease on hemodialysis Friday, as well as dyslipidemia. Patient states that she had several episodes of chest pain. The first was a stabbing type pain that went from her back to her chest. The second episode she had chest pain under her left breast. The third time she also had chest pain under the left breast and nitroglycerin was taken each time and cleared her pain. Yesterday while at hemodialysis the pain came back and she decided that it was time to come into the hospital for evaluation. Patient complains of feeling "drained." She also states she's had a cough starting today but has had no episodes of coughing or choking with food. She does complain of some generalized abdominal discomfort and tenderness. No diarrhea. She states her stools have been hard and small amount in the last one was yesterday morning. She is on lactulose and knows that this helps with constipation. She came into [facility] emergency center for evaluation. Troponins have been 0.017, 0.031, 0.012. Patient has been placed on the observation unit and seen in consultation by Dr. Souza and hemodialysis will be resumed. Patient is also been seen by Dr. Jackson with plan to discuss case with Dr. JAE Jc with possible plan for heart catheterization. Patient is currently pain- free. 7/5: Cardiology has decided against heart catheterization. Patient is scheduled for hemodialysis today and we will plan for discharge home later today. Discharge diagnoses: 1. Chest pain in a patient with history of coronary artery disease. 2. CAD: And follows with cardiology Dr. JAE Jc regular basis. 3. End-stage renal disease on hemodialysis. 4. Type 2 diabetes on insulin pump. 5. Hyperlipidemia. 6. Hypothyroidism. 7. Hypertension, hypertensive cardiovascular disease. 8. Generalized anxiety disorder and recurrent depression. 9. Gastroesophageal reflux disease. 10. COPD. 11. Chronic pain syndrome. 12. Constipation. Discharge plan: Return home Impression and plan of care have been directed as dictated by the signing physician. Emely Contreras nurse practitioner acting as scribe for signing physician. Patient Condition at Discharge: Good Plan - Discharge Summary New Discharge Prescriptions: Continue Famotidine [Pepcid] 20 mg PO DAILY Clopidogrel [Plavix] 75 mg PO DAILY tab Nitroglycerin Sl Tabs [Nitrostat] 0.4 mg SUBLINGUAL Q5M PRN #0 tab PRN Reason: Chest Pain Furosemide [Lasix] 80 mg PO BID Levothyroxine Sodium [Synthroid] 150 mcg PO MOTUWETHFRSA amLODIPine [Norvasc] 10 mg PO HS HYDROcodone/APAP 10-325MG [[place] 10-325] 1 tab PO Q4-6H PRN PRN Reason: Pain Prochlorperazine [Compazine] 5 - 10 mg PO Q8HR PRN PRN Reason: Nausea busPIRone HCL 15 mg PO BID Lactulose 10 gm PO DAILY PRN PRN Reason: Constipation Insulin Aspart (For Pump) [NovoLOG (For Pump)] 0.01 unit SQ-PUMP CONTINUOUS Nystatin [Nystop] 1 applic TOPICAL BID PRN PRN Reason: Skin Irritation Escitalopram [Lexapro] 20 mg PO DAILY Levothyroxine Sodium [Synthroid] 300 mcg PO DUBON Aspirin EC [Ecotrin Low Dose] 81 mg PO DAILY Fosrenol 1000mg 1,000 mg PO AC-BID Atorvastatin [Lipitor] 80 mg PO DAILY #30 tab Calcium Acetate [PhosLo] 2,001 mg PO TID-W/MEALS Calcium Acetate [PhosLo] 1,334 mg PO DIRECTED Renaplex-D 1 tab PO DAILY lamoTRIgine [LaMICtal] 75 mg PO BID Liquacel 1 dose PO DAILY diphenhydrAMINE [Benadryl] 50 mg PO HS PRN PRN Reason: Insomnia Nystatin 100,000Unit/gm Cream [Mycostatin Cream] 1 applic TOPICAL BID PRN PRN Reason: Skin Irritation LORazepam [Ativan] 1 mg PO BID Sodium Polystyrene Sulfonate [Kayexalate] 15 gm PO SUTUSA Iron(Unknown) 1 dose PO DIRECTED Heparin(Unknown) 1 dose SQ MOWEFR Discharge Medication List Famotidine [Pepcid] 20 mg PO DAILY 04/29/14 [History] Clopidogrel [Plavix] 75 mg PO DAILY tab 05/10/14 [Rx] Nitroglycerin Sl Tabs [Nitrostat] 0.4 mg SUBLINGUAL Q5M PRN #0 tab 05/10/14 [Rx] Furosemide [Lasix] 80 mg PO BID 08/04/14 [History] Levothyroxine Sodium [Synthroid] 150 mcg PO MOTUWETHFRSA 08/04/14 [History] HYDROcodone/APAP 10-325MG [[place] 10-325] 1 tab PO Q4-6H PRN 07/05/15 [History] Prochlorperazine [Compazine] 5 - 10 mg PO Q8HR PRN 07/05/15 [History] amLODIPine [Norvasc] 10 mg PO HS 07/05/15 [History] Aspirin EC [Ecotrin Low Dose] 81 mg PO DAILY 01/01/16 [History] Escitalopram [Lexapro] 20 mg PO DAILY 01/01/16 [History] Fosrenol 1000mg 1,000 mg PO AC-BID 01/01/16 [History] Insulin Aspart (For Pump) [NovoLOG (For Pump)] 0.01 unit SQ-PUMP CONTINUOUS [History] Lactulose 10 gm PO DAILY PRN 01/01/16 [History] Levothyroxine Sodium [Synthroid] 300 mcg PO DUBON 01/01/16 [History] Nystatin [Nystop] 1 applic TOPICAL BID PRN 01/01/16 [History] busPIRone HCL 15 mg PO BID 01/01/16 [History] Atorvastatin [Lipitor] 80 mg PO DAILY #30 tab 01/04/16 [Rx] Calcium Acetate [PhosLo] 1,334 mg PO DIRECTED 02/27/16 [History] Calcium Acetate [PhosLo] 2,001 mg PO TID-W/MEALS 02/27/16 [History] Liquacel 1 dose PO DAILY 04/01/16 [History] Renaplex-D 1 tab PO DAILY 04/01/16 [History] lamoTRIgine [LaMICtal] 75 mg PO BID 04/01/16 [History] Heparin(Unknown) 1 dose SQ MOWEFR 07/14/16 [History] Iron(Unknown) 1 dose PO DIRECTED 07/14/16 [History] LORazepam [Ativan] 1 mg PO BID 07/14/16 [History] Nystatin 100,000Unit/gm Cream [Mycostatin Cream] 1 applic TOPICAL BID PRN [History] Sodium Polystyrene Sulfonate [Kayexalate] 15 gm PO SUTUSA 07/14/16 [History] diphenhydrAMINE [Benadryl] 50 mg PO HS PRN 07/14/16 [History] Follow up Appointment(s)/Referral(s): Carmen Jc MD [STAFF PHYSICIAN] - 1 Week (office will call with appointment.) Kimberli Gar MD [Primary Care Provider] - 1 Week Patient Instructions/Handouts: Chest Pain (DC) Discharge Disposition: HOME SELF-CARE
[2016-09-22] MEDS ORDERED: LEVOTHYROXINE 100 MCG TAB PO SCH (06:30)
== END 2016-09-18 15:30 | disposition home or self-care (01) ==
LOC: EC 13:50 → 3OBS 15:36
PROVIDERS: ADMIT Family Medicine; ATTEND Family Medicine
DX: R07.9 Chest pain, unspecified (principal); I25.10 Atherosclerotic heart disease of native coronary artery without angina pectoris; I12.0 Hypertensive chronic kidney disease with stage 5 chronic kidney disease or end stage renal disease; E11.22 Type 2 diabetes mellitus with diabetic chronic kidney disease; N18.6 End stage renal disease; I13.11 Hypertensive heart and chronic kidney disease without heart failure, with stage 5 chronic kidney disease, or end stage renal disease; E78.5 Hyperlipidemia, unspecified; E66.9 Obesity, unspecified; Z68.41 Body mass index [BMI] 40.0-44.9, adult; E87.5 Hyperkalemia; K21.9 Gastro-esophageal reflux disease without esophagitis; G89.4 Chronic pain syndrome; K59.00 Constipation, unspecified; J44.9 Chronic obstructive pulmonary disease, unspecified; E03.9 Hypothyroidism, unspecified; F31.9 Bipolar disorder, unspecified; F41.1 Generalized anxiety disorder; M19.90 Unspecified osteoarthritis, unspecified site; I25.5 Ischemic cardiomyopathy; J30.9 Allergic rhinitis, unspecified; E55.9 Vitamin D deficiency, unspecified; B15.9 Hepatitis A without hepatic coma; Z86.74 Personal history of sudden cardiac arrest; Z99.2 Dependence on renal dialysis; Z79.899 Other long term (current) drug therapy; Z96.41 Presence of insulin pump (external) (internal); Z79.01 Long term (current) use of anticoagulants; Z79.82 Long term (current) use of aspirin; Z79.4 Long term (current) use of insulin; Z88.8 Allergy status to other drugs, medicaments and biological substances; Z88.0 Allergy status to penicillin; I25.2 Old myocardial infarction; Z91.048 Other nonmedicinal substance allergy status; Z86.14 Personal history of Methicillin resistant Staphylococcus aureus infection; Z95.5 Presence of coronary angioplasty implant and graft; N17.9 Acute kidney failure, unspecified; R60.1 Generalized edema; Z98.84 Bariatric surgery status
CPT/HCPCS: 36415; 93005; 93306; 80061; 80053; 80048; 82550 ×2; 82553 ×2; 83735; 84484 ×2; 85025; 85027; 85610; 85730; 71020; 99285; G0378 ×3; G0257; 90935

== ENCOUNTER 2017-03-21 10:46 | Emergency (ER) | payer MEDICARE, BC ==
[2017-03-21 10:56] VITALS: RESP 18
[2017-03-21] MEDS ORDERED: MORPHINE SULFATE 5 MG/ML SYRINGE IV ONE (11:09)
--- NOTE | 2017-03-21 11:16 | ED ---
Fall HPI - General Chief Complaint: Fall Stated Complaint: Fall Time Seen by Provider: 03/21/17 10:52 Source: patient Mode of arrival: EMS - History of Present Illness Initial Comments: Patient is a 61-year-old female with a history of diabetes, and end-stage renal disease presents with a chief complaint of a fall. The patient states that she was getting out of bed ready for dialysis when she slid down the side of her bed and landed on her butt. Patient denies any trauma to the head or neck. She denies loss of consciousness. Patient states that she is having pain in her lower back and tailbone. Patient states that she landed on carpet and that she was on the ground for about 3 hours. The patient was found by transportation staff as there is a bus that comes to pick her up for dialysis. On initial evaluation, patient was found to be febrile otherwise her vitals are within normal limits. - Related Data Home Medications Medication Instructions Recorded Confirmed Famotidine [Pepcid] 20 mg PO DAILY 04/29/14 03/21/17 Furosemide [Lasix] 80 mg PO BID 08/04/14 03/21/17 Levothyroxine Sodium [Synthroid] 150 mcg PO [id number] 08/04/14 03/21/17 HYDROcodone/APAP 10-325MG [[place] 1 tab PO Q4-6H PRN 07/05/15 03/21/17 10-325] Prochlorperazine [Compazine] 5 - 10 mg PO Q8HR PRN 07/05/15 03/21/17 Aspirin EC [Ecotrin Low Dose] 81 mg PO DAILY 01/01/16 03/21/17 Escitalopram [Lexapro] 20 mg PO DAILY 01/01/16 03/21/17 Fosrenol 1000mg 2,000 mg PO QID 01/01/16 03/21/17 Insulin Aspart (For Pump) [NovoLOG See Protocol SQ-PUMP CONTINUOUS 01/01/1608/01 (For Pump)] Lactulose 10 gm PO DAILY PRN 01/01/16 03/21/17 Levothyroxine Sodium [Synthroid] 300 mcg PO DUBON 01/01/16 03/21/17 busPIRone HCL 15 mg PO BID 01/01/16 03/21/17 Calcium Acetate [PhosLo] 1,334 mg PO DAILY 02/27/16 03/21/17 Calcium Acetate [PhosLo] 2,001 mg PO TID-W/MEALS 02/27/16 03/21/17 lamoTRIgine [LaMICtal] 75 mg PO BID 04/01/16 03/21/17 LORazepam [Ativan] 1 mg PO BID 07/14/16 03/21/17 Nystatin 100,000Unit/gm Cream 1 applic TOPICAL BID PRN 07/14/16 03/21/17 [Mycostatin Cream] Sodium Polystyrene Sulfonate 15 gm PO SUTUSA 07/14/16 03/21/17 [Kayexalate] Atorvastatin [Lipitor] 80 mg PO HS 12/27/16 03/21/17 Folic Acid-Vit B Complex-Vit C 1 mg PO DAILY 12/27/16 03/21/17 [Nephrocaps] Nystatin 100,000 Unit/gm Powd 1 applic TOPICAL BID PRN 12/27/16 03/21/17 [Mycostatin Powder] amLODIPine [Norvasc] 10 mg PO DAILY 12/27/16 03/21/17 Clopidogrel [Plavix] 75 mg PO Q48H 03/21/17 03/21/17 Isosorbide Mononitrate ER [Imdur] 30 mg PO DAILY 03/21/17 03/21/17 Previous Rx's Medication Instructions Recorded Nitroglycerin Sl Tabs [Nitrostat] 0.4 mg SUBLINGUAL Q5M PRN #0 tab 05/10/14 Allergies Allergy/AdvReac Type Severity Reaction Status Date / Time adhesive Allergy Rash/Hives Verified 03/21/17 12:15 Iodinated Contrast- Oral and Allergy KIDNEY Verified 03/21/17 12:15 IV Dye FAILURE metformin Allergy SUGAR Verified 03/21/17 12:15 LEVEL INCREASE Penicillins Allergy Rash/Hives Verified 03/21/17 12:15 Review of Systems ROS Statement: Those systems with pertinent positive or pertinent negative responses have been documented in the HPI. ROS Other: All systems not noted in ROS Statement are negative. Constitutional: Reports: fever Eyes: Denies: vision change ENT: Denies: throat pain Respiratory: Denies: cough, dyspnea Cardiovascular: Denies: chest pain Endocrine: Denies: fatigue Gastrointestinal: Reports: nausea. Denies: abdominal pain, vomiting Genitourinary: Reports: dysuria Musculoskeletal: Reports: back pain Skin: Denies: rash Neurological: Denies: headache Past Medical History Past Medical History: Coronary Artery Disease (CAD), Diabetes Mellitus, Dialysis , Hyperlipidemia, Hypertension, Myocardial Infarction ([place]), Osteoarthritis (OA) , Thyroid Disorder Additional Past Medical History / Comment(s): per past medical charting pt's stated "pt has had 17 mi's". ischemic cardiomyopathy. [place] in 2005 and September 2013, 12/29/15 STRESS WNL, Hepatitis A, ALLERGIC rhinitis,[place],ESRD/DIALYSIS- ON --, CARDIO-PULMONARY ARREST 07/05/14 and pt stated she has had short term memory problems since, hypertensive nephrosclerosis, Hepatitis A,Vitamin D deficiency, constipation.dm- uses an insulin pump.HX OF FALLS-MOST RECENT BEING FRIDAY-"CHIPPED Last Myocardial Infarction Date:: 09/2013 History of Any Multi-Drug Resistant Organisms: MRSA Date of last positivie culture/infection: 2011 MDRO Source:: blood Past Surgical History: Adenoidectomy, Appendectomy, Cholecystectomy, Heart Catheterization With Stent, Hysterectomy, Tonsillectomy Additional Past Surgical History / Comment(s): mary cataracts, LAP-BAND 2004, Laparoscopic cholecystectomy, FIBULA FX has metal pins in place,Left shoulder surgery, Hemodialysis Cataract bilateral with IOL, fistula and sx to" reroute it ",gets dialysis fri-fri-fri. has insulin pump. no bp on left Past Anesthesia/Blood Transfusion Reactions: Motion Sickness, Postoperative Nausea & Vomiting (PONV) Date of Last Stent Placement:: 2014 Past Psychological History: Anxiety, Bipolar, Depression Smoking Status: Never smoker - Past Family History Mother Family Medical History: Congestive Heart Failure (CHF), Diabetes Mellitus, Hypertension Father History Unknown: Yes Family Medical History: Diabetes Mellitus Brother(s) Family Medical History: Diabetes Mellitus, Hyperlipidemia Additional Family Medical History / Comment(s): Hypertension chronic kidney disease General Exam - General Exam Comments Initial Comments: Physical examination is somewhat limited secondary to patient's body habitus and generalized debility Limitations: physical limitation General appearance: alert, in no apparent distress Head exam: Present: atraumatic, normocephalic Eye exam: Present: PERRL ENT exam: Present: normal exam, mucous membranes moist Neck exam: Present: normal inspection. Absent: tenderness Respiratory exam: Present: normal lung sounds bilaterally Cardiovascular Exam: Present: regular rate, normal rhythm GI/Abdominal exam: Present: soft. Absent: distended, tenderness Rectal exam: Present: deferred Extremities exam: Present: pedal edema, other (Patient has a dialysis fistula in the left AC fossa with palpable thrill) Back exam: Present: tenderness, paraspinal tenderness Neurological exam: Present: alert, oriented X3 Psychiatric exam: Present: normal affect, normal mood Skin exam: Present: warm, dry, intact Course Vital Signs 03/21/17 10:48 Temperature 101.7 F H Pulse Rate 77 Respiratory 18 Rate Blood Pressure 147/64 O2 Sat by Pulse 90 L Oximetry Medical Decision Making - Medical Decision Making Patient presents with a chief complaint of fall out of bed. She describes sliding down to the ground. She denies any head or neck trauma. She denies loss of consciousness. Initial evaluation, patient is febrile at 101.7 otherwise patient appears well. We'll send basic labs including a CPK. Patient will have an EKG and go for computed tomography scan of the lumbar spine and pelvis. The dialysis center was contacted. She is going to miss her scheduled appointment however they state that they will be able to get her in today. 1:35 PM Lab evaluation this patient shows end-stage renal disease. Patient has a white count of 10,000. Reexamination, patient is still mildly febrile at 100.6. Her workup here thus far is negative. Patient is likely fighting a viral illness however she appears overall well. Computed tomography scan of the lumbar spine and pelvis do not show any acute fractures. There are degenerative changes, disc space narrowing. I discussed these results with the patient. At this time , she is stable for discharge. She will be discharged to the dialysis facility. I discussed that if the patient has any new or worsening symptoms that she should return to the emergency department. - Lab Data Result diagrams: 03/21/17 11:33 03/21/17 11:33 Lab Results 03/21/17 03/21/17 Range/Units 11:33 11:33 WBC 10.8 H (3.8-10.6) k/uL RBC 3.19 L (3.80-5.40) m/uL Hgb 10.1 L (11.4-16.0) gm/dL Hct 31.9 L (34.0-46.0) % MCV 100.1 H (80.0-100.0) fL MCH 31.7 (25.0-35.0) pg MCHC 31.6 (31.0-37.0) g/dL RDW 13.3 (11.5-15.5) % Plt Count 201 (150-450) k/uL Neutrophils % 90 % Lymphocytes % 4 % Monocytes % 4 % Eosinophils % 1 % Basophils % 0 % Neutrophils # 9.7 H (1.3-7.7) k/uL Lymphocytes # 0.4 L (1.0-4.8) k/uL Monocytes # 0.5 (0-1.0) k/uL Eosinophils # 0.1 (0-0.7) k/uL Basophils # 0.0 (0-0.2) k/uL Sodium 135 L (137-145) mmol/L Potassium 5.9 H (3.5-5.1) mmol/L Chloride 96 L (98-107) mmol/L Carbon Dioxide 22 (22-30) mmol/L Anion Gap 17 mmol/L BUN 42 H (7-17) mg/dL Creatinine 7.29 H* (0.52-1.04) mg/dL Est GFR (MDRD) Af Amer 7 (>60 ml/min/1.73 sqM) Est GFR (MDRD) Non-Af 6 (>60 ml/min/1.73 sqM) Glucose 166 H (74-99) mg/dL Calcium 8.4 (8.4-10.2) mg/dL Creatine Kinase 60 (30-135) U/L Disposition Clinical Impression: Fall, ESRD (end stage renal disease) Disposition: HOME SELF-CARE Condition: Good Instructions: Fall Prevention for Older Adults (ED) Referrals: Kimberli Gar MD [Primary Care Provider] - 1-2 days
[2017-03-21 11:51] LABS: Basophils % (A) 0 %; Eosinophils # (A) 0.1 k/uL (0-0.7); Eosinophils % (A) 1 %; HCT 31.9 % (34.0-46.0); HGB 10.1 gm/dL (11.4-16.0); Lymphocytes # (A) 0.4 k/uL (1.0-4.8); Lymphocytes % (A) 4 %; MCH 31.7 pg (25.0-35.0); MCHC 31.6 g/dL (31.0-37.0); MCV 100.1 fL (80.0-100.0); Mean Platelet Volume 7.8; Monocytes # (A) 0.5 k/uL (0-1.0); Monocytes % (A) 4 %; Neutrophils # (A) 9.7 k/uL (1.3-7.7); Neutrophils % (A) 90 %; Platelet Count 201 k/uL (150-450); RBC 3.19 m/uL (3.80-5.40); RDW 13.3 % (11.5-15.5); WBC 10.8 k/uL (3.8-10.6)
[2017-03-21 12:27] LABS: Calcium 8.4 mg/dL (8.4-10.2)
[2017-03-21 12:28] LABS: Potassium 5.9 mmol/L (3.5-5.1)
--- NOTE | 2017-03-21 12:28 | CT ---
EXAMINATION TYPE: CT lumbar spine wo con DATE OF EXAM: 03/21/2017 COMPARISON: CT lumbar spine December 26, 2016 HISTORY: Pain in low back/pelvic pain CT DLP: 2712.20 mGycm Automated exposure control for dose reduction was used. FINDINGS: There are 5 lumbar-type vertebra redemonstrated. Osseous structures are demineralized. There is no ac belkofski fracture or dislocation present. There is oval sclerotic lesion T12 vertebra favoring enchondroma or other benign etiology. There is severe multilevel anterior spurring in the visualized lower thora cic spine. Evaluation is suboptimal due to patient's large body habitus. No large disc herniation is present. There is mild to moderate disc space narrowing T12-L1 level otherwise vertebral body heights and disc space heights are preserved. Review of axial images shows no large disc herniation. There is mild to moderate facet arthropathy L3 -L4 level bilaterally. There is moderate facet arthropathy with ligamentum flavum hypertrophy as well as disc herniation causing spinal canal stenosis L4-L5 level on axial image 77 redemonstrated. There is mild to moderate facet arthropathy L5-S1 level. There is lap band device redemonstrated epigastric region. There is prominent vascular calcification of smaller arterial vessels in the abdomen redemonstrated. Cholecystectomy clips are again seen. IMPRESSION: OVERALL STABLE FINDINGS, DEMINERALIZATION WITH DEGENERATIVE CHANGE MOST PROMINENT AT L4-L5 LEVEL. NO ACUTE FRACTURE OR DISLOCATION IS SEEN.
--- NOTE | 2017-03-21 12:34 | CT ---
EXAMINATION TYPE: CT pelvis wo con DATE OF EXAM: 03/21/2017 COMPARISON: 12/26/2016 HISTORY: Pain in low back/pelvic pain CT DLP: 970.50 mGycm Automated exposure control for dose reduction was used. FINDINGS: There is generalized osteopenia. Sacroiliac joints appear intact. The proximal femurs are intact. The re is hypertrophic acetabular spur formation. The sacrum and coccyx segments have normal alignment wi thout sign of a fracture. There is vascular calcification. There is hypertrophic acetabular spurring. There appears to be Limited assessment of the lumbar spine artifact sagittal images. Does appear to b e multilevel hypertrophic change and degenerative disc disease. Disc herniation L4-L5 with severe karl nosis and at L5-S1 suspected. Bilateral foraminal encroachment and facet arthropathy. Vascular calcifications noted. IMPRESSION: MULTILEVEL DEGENERATIVE DISC DISEASE WITH DISC BULGING AND SLIGHT ANTEROLISTHESIS L4-L5 WITH SEVERE C ANAL STENOSIS AND POSSIBLE DISC HERNIATION. RECOMMEND FOLLOW-UP MRI.
--- NOTE | 2017-03-21 13:19 | XR ---
EXAMINATION TYPE: XR chest 2V DATE OF EXAM: 03/21/2017 COMPARISON: 12/27/2016 HISTORY: Shortness of breath TECHNIQUE: Frontal and lateral views of the chest are obtained. FINDINGS: Scattered senescent parenchymal changes noted. Hyperinflation compatible with COPD. Perihilar infiltrates right greater than left may reflect developing congestive failure or pneumonia. Correlate clinically and progress studies are recommended. Heart size is stable. Mediastinal structures are stable and grossly unremarkable. No evidence for hilar prominence. Degenerative changes dorsal spine. IMPRESSION: 1. Perihilar infiltrates right greater than left may reflect developing congestive failure or pneumon ia. Correlate clinically and progress studies are recommended.
[2017-03-21] MEDS ORDERED: ACETAMINOPHEN TAB 500 MG TAB PO STA (13:34)
[2017-03-21 13:53] VITALS: BP 138/59; PULSE 75
[2017-03-21 14:38] VITALS: TEMP 99.2
== END 2017-03-21 14:38 | disposition home or self-care (01) ==
LOC: EC 10:46
DX: I12.0 Hypertensive chronic kidney disease with stage 5 chronic kidney disease or end stage renal disease (principal); N18.6 End stage renal disease; I25.10 Atherosclerotic heart disease of native coronary artery without angina pectoris; E11.22 Type 2 diabetes mellitus with diabetic chronic kidney disease; E78.5 Hyperlipidemia, unspecified; Z99.2 Dependence on renal dialysis; E07.9 Disorder of thyroid, unspecified; F41.9 Anxiety disorder, unspecified; F32.9 Major depressive disorder, single episode, unspecified; Z95.5 Presence of coronary angioplasty implant and graft; Z86.14 Personal history of Methicillin resistant Staphylococcus aureus infection; Z79.01 Long term (current) use of anticoagulants; Z79.82 Long term (current) use of aspirin; Z79.4 Long term (current) use of insulin; Z79.899 Other long term (current) drug therapy; Z91.048 Other nonmedicinal substance allergy status; Z91.041 Radiographic dye allergy status; Z88.8 Allergy status to other drugs, medicaments and biological substances; Z88.0 Allergy status to penicillin; W06.XXXA Fall from bed, initial encounter; Y92.003 Bedroom of unspecified non-institutional (private) residence as the place of occurrence of the external cause
CPT/HCPCS: 99284 ×2; 96374 ×2; 36415; 93005; 80048; 82550; 85025; 71046; 72192; 72131; J2274

== ENCOUNTER 2017-07-01 14:59 | Emergency (ER) | payer MEDICARE, BC, OTHER ==
[2017-07-01 15:10] VITALS: RESP 16
[2017-07-01] MEDS ORDERED: HYDROcodone/APAP 5-325MG 1 EACH TAB PO STA (16:16)
--- NOTE | 2017-07-01 16:25 | XR ---
EXAMINATION TYPE: XR Hip LT and AP Pelvis DATE OF EXAM: 07/01/2017 COMPARISON: NONE HISTORY: Pain after a fall TECHNIQUE: A single AP view of the pelvis is obtained. Two views of the left hip are obtained. FINDINGS: There is no acute fracture/dislocation evident in the pelvis. The hip and sacroiliac join ts appear symmetric and unremarkable. The overlying soft tissue appears unremarkable. Two views of left hip show no acute fracture or dislocation. Moderate left and mild right femoral mayur tabular arthropathy demonstrated as joint space narrowing and acetabular roof sclerosis. Marginal ost eophyte projects from the anterior inferior femoral head and from the superior acetabulum on the left . Extensive atherosclerosis is noted. No focal lytic or sclerotic lesion seen in the proximal left fe mur. The overlying soft tissue is unremarkable. IMPRESSION: 1. No acute fracture or dislocation in the pelvis or left hip. 2. Moderate left and mild right femoral acetabular arthropathy.
--- NOTE | 2017-07-01 16:27 | XR ---
Left shoulder HISTORY: Trauma and pain 3 views of the left shoulder Patient shows postoperative change to the left humerus. Bone mineralization, joint spaces and alignme nt are maintained. Exam somewhat limited by technique. IMPRESSION: No acute fracture or dislocation evident, follow-up as indicated
--- NOTE | 2017-07-01 16:29 | XR ---
Lumbar spine HISTORY: Trauma 3 views of the lumbar spine correlated to prior lumbar spine 07/14/2016 There is no significant change. Patient is post lap band. Lumbar vertebral bodies show stable height, alignment, and bone mineralization. Spondylosis again noted. Sclerosis present in the posterior [place] ents of the lower lumbar spine. Disc spaces are stable. IMPRESSION: No acute fracture or subluxation. Low bone mineralization could limit sensitivity, follow -up thousand as indicated.
--- NOTE | 2017-07-01 16:41 | XR ---
Bilateral knees HISTORY: Trauma and pain 3 views of both knees are submitted on a total of 6 images, comparison to left leg 07/14/2016 Bone mineralization is reduced which could limit sensitivity. Marginal spurring is present 3 compartm ents bilaterally. There are dense vascular calcifications present. Alignment is maintained, mild join t space loss in the medial compartments. No evident joint effusion. Soft tissue suspected anteriorly, density measuring 3 mm within the soft tissues the prepatellar region on the right could represent f oreign body. Cortical thickening along the proximal diaphyseal right fibula likely due to remote trau ma Impression: No acute fracture or dislocation. Additional findings above.
--- NOTE | 2017-07-01 16:53 | ED ---
General Adult HPI - General Chief complaint: Fall Stated complaint: Fall Time Seen by Provider: 07/01/17 15:10 Source: patient, EMS, RN notes reviewed, old records reviewed Mode of arrival: EMS Limitations: no limitations - History of Present Illness Initial comments: This is a 62-year-old female to the ER today. Patient does say for evaluation status post fall. Patient mechanical trip and fall pending).. Patient has excessive morbid obesity. Patient complains of pain to left neck neck had, left hip left shoulder and left knee. Patient was unable to get up and walk after fall. Patient denies any other injuries. No loss of conscious, no blood thinners - Related Data Home Medications Medication Instructions Recorded Confirmed Famotidine [Pepcid] 20 mg PO DAILY 04/29/14 07/01/17 Furosemide [Lasix] 80 mg PO BID 08/04/14 07/01/17 Aspirin EC [Ecotrin Low Dose] 81 mg PO DAILY 01/01/16 07/01/17 Escitalopram [Lexapro] 20 mg PO DAILY 01/01/16 07/01/17 Insulin Aspart (For Pump) [NovoLOG See Protocol SQ-PUMP CONTINUOUS 01/01/16 (For Pump)] busPIRone HCL 15 mg PO BID 01/01/16 07/01/17 LORazepam [Ativan] 1 mg PO BID 07/14/16 07/01/17 Atorvastatin [Lipitor] 80 mg PO HS 12/27/16 07/01/17 amLODIPine [Norvasc] 10 mg PO DAILY 12/27/16 07/01/17 Clopidogrel [Plavix] 75 mg PO Q48H 03/21/17 07/01/17 Isosorbide Mononitrate ER [Imdur] 30 mg PO DAILY 03/21/17 07/01/17 lamoTRIgine [LaMICtal] 100 mg PO DAILY 07/01/17 07/01/17 lamoTRIgine [LaMICtal] 150 mg PO HS 07/01/17 07/01/17 Allergies Allergy/AdvReac Type Severity Reaction Status Date / Time adhesive Allergy Rash/Hives Verified 07/01/17 15:35 Iodinated Contrast- Oral and Allergy KIDNEY Verified 07/01/17 15:35 IV Dye FAILURE metformin Allergy SUGAR Verified 07/01/17 15:35 LEVEL INCREASE Penicillins Allergy Rash/Hives Verified 07/01/17 15:35 Review of Systems ROS Statement: Those systems with pertinent positive or pertinent negative responses have been documented in the HPI. ROS Other: All systems not noted in ROS Statement are negative. Past Medical History Past Medical History: Coronary Artery Disease (CAD), Diabetes Mellitus, Dialysis , Hyperlipidemia, Hypertension, Myocardial Infarction ([place]), Osteoarthritis (OA) , Thyroid Disorder Additional Past Medical History / Comment(s): per past medical charting pt's stated "pt has had 17 mi's". ischemic cardiomyopathy. [place] in 2005 and September 2013, 12/29/15 STRESS WNL, Hepatitis A, ALLERGIC rhinitis,[place],ESRD/DIALYSIS- ON --, CARDIO-PULMONARY ARREST 07/05/14 and pt stated she has had short term memory problems since, hypertensive nephrosclerosis, Hepatitis A,Vitamin D deficiency, constipation.dm- uses an insulin pump.HX OF FALLS Last Myocardial Infarction Date:: 09/2013 History of Any Multi-Drug Resistant Organisms: MRSA Date of last positivie culture/infection: 2011 MDRO Source:: blood Past Surgical History: Adenoidectomy, Appendectomy, Cholecystectomy, Heart Catheterization With Stent, Hysterectomy, Tonsillectomy Additional Past Surgical History / Comment(s): mary cataracts, LAP-BAND 2004, Laparoscopic cholecystectomy, FIBULA FX has metal pins in place,Left shoulder surgery, Hemodialysis Cataract bilateral with IOL, fistula and sx to" reroute it ",gets dialysis mon-fri-fri. has insulin pump. no bp on left Past Anesthesia/Blood Transfusion Reactions: Motion Sickness, Postoperative Nausea & Vomiting (PONV) Date of Last Stent Placement:: 2014 Past Psychological History: Anxiety, Bipolar, Depression Smoking Status: Never smoker Past Alcohol Use History: None Reported Past Drug Use History: None Reported - Past Family History Mother Family Medical History: Congestive Heart Failure (CHF), Diabetes Mellitus, Hypertension Father History Unknown: Yes Family Medical History: Diabetes Mellitus Brother(s) Family Medical History: Diabetes Mellitus, Hyperlipidemia Additional Family Medical History / Comment(s): Hypertension chronic kidney disease General Exam Limitations: no limitations General appearance: alert, in no apparent distress, obese Head exam: Present: atraumatic, normocephalic, normal inspection Eye exam: Present: normal appearance, PERRL, EOMI. Absent: scleral icterus, conjunctival injection, periorbital swelling ENT exam: Present: normal exam, mucous membranes moist Neck exam: Present: normal inspection. Absent: tenderness, meningismus, lymphadenopathy Respiratory exam: Present: normal lung sounds bilaterally. Absent: respiratory distress, wheezes, rales, rhonchi, stridor Cardiovascular Exam: Present: regular rate, normal rhythm, normal heart sounds. Absent: systolic murmur, diastolic murmur, rubs, gallop, clicks GI/Abdominal exam: Present: soft, normal bowel sounds. Absent: distended, tenderness, guarding, rebound, rigid Extremities exam: Present: normal inspection, full ROM, normal capillary refill. Absent: tenderness, pedal edema, joint swelling, calf tenderness Back exam: Present: normal inspection Neurological exam: Present: alert, oriented X3, CN II-XII intact Psychiatric exam: Present: normal affect, normal mood Skin exam: Present: warm, dry, intact, normal color. Absent: rash Course Vital Signs 07/01/17 15:04 Temperature 97.7 F Respiratory 16 Rate Blood Pressure 143/66 - Reevaluation(s) Reevaluation #1: 07/01/17 16:52 Patient's pain is adequately controlled Medical Decision Making - Medical Decision Making 62 female status post fall. Patient has multiple contusions of left-sided body , CT brain C-spine and multiple x-rays are negative for traumatic injury - Radiology Data Radiology results: report reviewed (CT brain C-spine, x-ray pelvis left hip, x- ray left shoulder and x-ray left bilateral knees are negative for traumatic injury), image reviewed Disposition Clinical Impression: Fall, Head injury, Contusion of left hip Disposition: HOME SELF-CARE Condition: Good Instructions: Fall Prevention for Older Adults (ED), Contusion in Adults (ED) Is patient prescribed a controlled substance at discharge?: No Referrals: Kimberli Gar MD [Primary Care Provider] - 1-2 days
--- NOTE | 2017-07-01 17:12 | CT ---
EXAMINATION TYPE: CT brain cspine wo con DATE OF EXAM: 07/01/2017 COMPARISON: 12/26/2016 HISTORY: fall today CT DLP: 1763.5 mGycm. Automated Exposure Control for Dose Reduction was Utilized. TECHNIQUE: CT scan of the head and cervical spine are performed without contrast. FINDINGS: Encephalomalacia in the left temporal lobe is identified, unchanged in the prior exam of 1 . No suspicious extra-axial fluid collection is seen. There is no acute intracranial hemorrh age, mass effect, or midline shift identified. The ventricles and sulci are symmetrically prominent compatible with age-related atrophy. Scattered areas of hypoattenuation within the subcortical white matter are likely on the basis of chronic microangiopathy. The globes are intact and the visualized s inuses are clear. Cervical spine is visualized in its entirety from C1 through upper thoracic levels and demonstrates s atisfactory alignment without evidence of acute fracture or dislocation. Prevertebral soft tissue ap pears within normal limits. The C1-C2 articulation is unremarkable. Evaluation for disc herniation is limited on CT. Multilevel mild degenerative disc disease is seen of the cervical spine displayed i s minimal uncovertebral hypertrophy and facet arthropathy. IMPRESSION: 1. No acute fracture or dislocation evident in the cervical spine. 2. No acute intracranial hemorrhage, mass effect, or midline shift is seen.
[2017-07-01 17:29] VITALS: BP 140/65; PULSE 65; TEMP 97.9
== END 2017-07-01 18:00 | disposition home or self-care (01) ==
LOC: EC 14:59
DX: S70.02XA Contusion of left hip, initial encounter (principal); S09.90XA Unspecified injury of head, initial encounter; M25.562 Pain in left knee; M54.2 Cervicalgia; I25.10 Atherosclerotic heart disease of native coronary artery without angina pectoris; E78.5 Hyperlipidemia, unspecified; I25.2 Old myocardial infarction; E07.9 Disorder of thyroid, unspecified; E11.22 Type 2 diabetes mellitus with diabetic chronic kidney disease; I12.0 Hypertensive chronic kidney disease with stage 5 chronic kidney disease or end stage renal disease; N18.6 End stage renal disease; Z99.2 Dependence on renal dialysis; F31.9 Bipolar disorder, unspecified; F41.9 Anxiety disorder, unspecified; Z86.14 Personal history of Methicillin resistant Staphylococcus aureus infection; Z86.19 Personal history of other infectious and parasitic diseases; Z79.4 Long term (current) use of insulin; Z79.82 Long term (current) use of aspirin; Z79.899 Other long term (current) drug therapy; Z79.01 Long term (current) use of anticoagulants; Z88.0 Allergy status to penicillin; Z88.8 Allergy status to other drugs, medicaments and biological substances; Z91.041 Radiographic dye allergy status; Z91.048 Other nonmedicinal substance allergy status; W01.0XXA Fall on same level from slipping, tripping and stumbling without subsequent striking against object, initial encounter; Y92.009 Unspecified place in unspecified non-institutional (private) residence as the place of occurrence of the external cause
CPT/HCPCS: 70450; 72100; 72125; 73502; 99284

== ENCOUNTER 2017-07-23 09:13 | Inpatient (IN) | payer MEDICARE, BC, OTHER ==
[2017-07-23] MEDS ORDERED: SODIUM CHLORIDE 0.9% 1,000 ML IV STA (09:39)
--- NOTE | 2017-07-23 09:50 | ED ---
General Adult HPI - General Chief complaint: Animal Bite Stated complaint: animal bite Time Seen by Provider: 07/23/17 09:21 Source: patient, EMS, RN notes reviewed Mode of arrival: EMS Limitations: no limitations - History of Present Illness Initial comments: Patient 62-year-old female presenting to the emergency room today with a chief complaint of Bite to the right foot. She states that this occurred 5 days ago. She cannot antibiotics the past 3 days. She states it's been increased pain, redness, swelling to the right foot. Difficulty ambulating due to pain. Patient doesn't some streaking coming up for left molina. Patient has been taking ciprofloxacin. Does have penicillin ALLERGY. Patient denies any other complaints or symptoms. Patient denies any recent fever, chills, shortness of breath, chest pain, abdominal pain, nausea or vomiting, numbness or tingling, dysuria or hematuria, constipation or diarrhea, headaches or visual changes, or any other complaints. - Related Data Home Medications Medication Instructions Recorded Confirmed Famotidine [Pepcid] 20 mg PO DAILY 04/29/14 07/23/17 Furosemide [Lasix] 80 mg PO BID 08/04/14 07/23/17 Aspirin EC [Ecotrin Low Dose] 81 mg PO DAILY 01/01/16 07/23/17 Escitalopram [Lexapro] 20 mg PO DAILY 01/01/16 07/23/17 Insulin Aspart (For Pump) [NovoLOG See Protocol SQ-PUMP CONTINUOUS 01/01/1612/02 (For Pump)] busPIRone HCL 15 mg PO BID 01/01/16 07/23/17 LORazepam [Ativan] 1 mg PO BID 07/14/16 07/23/17 Atorvastatin [Lipitor] 80 mg PO HS 12/27/16 07/23/17 amLODIPine [Norvasc] 10 mg PO DAILY 12/27/16 07/23/17 Clopidogrel [Plavix] 75 mg PO Q48H 03/21/17 07/23/17 Isosorbide Mononitrate ER [Imdur] 30 mg PO DAILY 03/21/17 07/23/17 lamoTRIgine [LaMICtal] 100 mg PO DAILY 07/01/17 07/23/17 lamoTRIgine [LaMICtal] 150 mg PO HS 04/17/18 05/09/18 Ciprofloxacin HCl [Cipro] 500 mg PO Q12HR 07/23/17 07/23/17 Allergies Allergy/AdvReac Type Severity Reaction Status Date / Time adhesive Allergy Rash/Hives Verified 07/23/17 09:34 Iodinated Contrast- Oral and Allergy KIDNEY Verified 07/23/17 09:34 IV Dye FAILURE metformin Allergy SUGAR Verified 07/23/17 09:34 LEVEL INCREASE Penicillins Allergy Rash/Hives Verified 07/23/17 09:34 Review of Systems ROS Statement: Those systems with pertinent positive or pertinent negative responses have been documented in the HPI. ROS Other: All systems not noted in ROS Statement are negative. Past Medical History Past Medical History: Coronary Artery Disease (CAD), Diabetes Mellitus, Dialysis , Hyperlipidemia, Hypertension, Myocardial Infarction (LA), Osteoarthritis (OA) , Thyroid Disorder Additional Past Medical History / Comment(s): per past medical charting pt's stated "pt has had 17 mi's". ischemic cardiomyopathy. LA in 2005 and September 2013, 12/29/15 STRESS WNL, Hepatitis A, ALLERGIC rhinitis,LA,ESRD/DIALYSIS- ON , CARDIO-PULMONARY ARREST 07/05/14 and pt stated she has had short term memory problems since, hypertensive nephrosclerosis, Hepatitis A,Vitamin D deficiency, constipation.dm- uses an insulin pump.HX OF FALLS Last Myocardial Infarction Date:: 09/2013 History of Any Multi-Drug Resistant Organisms: MRSA Date of last positivie culture/infection: 2011 MDRO Source:: blood Past Surgical History: Adenoidectomy, Appendectomy, Cholecystectomy, Heart Catheterization With Stent, Hysterectomy, Tonsillectomy Additional Past Surgical History / Comment(s): mary cataracts, LAP-BAND 2004, Laparoscopic cholecystectomy, FIBULA FX has metal pins in place,Left shoulder surgery, Hemodialysis Cataract bilateral with IOL, fistula and sx to" reroute it ",gets dialysis fri-fri-fri. has insulin pump. no bp on left Past Anesthesia/Blood Transfusion Reactions: Motion Sickness, Postoperative Nausea & Vomiting (PONV) Date of Last Stent Placement:: 2014 Past Psychological History: Anxiety, Bipolar, Depression Smoking Status: Never smoker Past Alcohol Use History: None Reported Past Drug Use History: None Reported - Past Family History Mother Family Medical History: Congestive Heart Failure (CHF), Diabetes Mellitus, Hypertension Father History Unknown: Yes Family Medical History: Diabetes Mellitus Brother(s) Family Medical History: Diabetes Mellitus, Hyperlipidemia Additional Family Medical History / Comment(s): Hypertension chronic kidney disease General Exam - General Exam Comments Initial Comments: General: The patient is awake and alert, in no distress, and does not appear acutely ill. Eye: Pupils are equal, round and reactive to light, extra-ocular movements are intact. No nystagmus. There is normal conjunctiva bilaterally. No signs of icterus. Ears, nose, mouth and throat: There are moist mucous membranes and no oral lesions. Neck: The neck is supple, there is no tenderness or JVD. Cardiovascular: There is a regular rate and rhythm. No murmur, rub or gallop is appreciated. Respiratory: Lungs are clear to auscultation, respirations are non-labored, breath sounds are equal. No wheezes, stridor, rales, or rhonchi. Musculoskeletal: Normal ROM, no tenderness. Strength 5/5. Sensation intact. Pulses equal bilaterally 2+. Neurological: A&O x 3. CN II-XII intact, There are no obvious motor or sensory deficits. Coordination appears grossly intact. Speech is normal. Skin: Patient does have moderate swelling to the right foot. 3 small puncture wounds are seen to the top of the right foot. There is redness swelling and erythema with some mild streaking up the left molina. Psychiatric: Cooperative, appropriate mood & affect, normal judgment. Limitations: no limitations Course Vital Signs 07/23/17 07/23/17 09:17 11:40 Temperature 98 F 97.5 F L Pulse Rate 70 62 Respiratory 18 16 Rate Blood Pressure 143/66 145/65 O2 Sat by Pulse 98 98 Oximetry Medical Decision Making - Medical Decision Making Patient's x-ray reviewed negative. Patient does have a infection to the top of the right foot. Patient no elevated white count. Patient has failed outpatient treatment and on Rocephin and Flagyl here in the emergency room. Will have consult to Dr. Chin with infectious disease. Patient be admitted to the hospital. - Lab Data Result diagrams: 07/23/17 10:00 07/23/17 10:00 Lab Results 07/23/17 07/23/17 Range/Units 10:00 10:00 WBC 9.7 (3.8-10.6) k/uL RBC 3.55 L (3.80-5.40) m/uL Hgb 10.3 L (11.4-16.0) gm/dL Hct 33.0 L (34.0-46.0) % MCV 93.1 (80.0-100.0) fL MCH 29.1 (25.0-35.0) pg MCHC 31.3 (31.0-37.0) g/dL RDW 16.5 H (11.5-15.5) % Plt Count 374 (150-450) k/uL Neutrophils % 91 % Lymphocytes % 3 % Monocytes % 5 % Eosinophils % 0 % Basophils % 0 % Neutrophils # 8.8 H (1.3-7.7) k/uL Lymphocytes # 0.2 L (1.0-4.8) k/uL Monocytes # 0.4 (0-1.0) k/uL Eosinophils # 0.0 (0-0.7) k/uL Basophils # 0.0 (0-0.2) k/uL Hypochromasia Slight Anisocytosis Slight Sodium 133 L (137-145) mmol/L Potassium 4.3 (3.5-5.1) mmol/L Chloride 87 L (98-107) mmol/L Carbon Dioxide 23 (22-30) mmol/L Anion Gap 23 mmol/L BUN 47 H (7-17) mg/dL Creatinine 6.47 H* (0.52-1.04) mg/dL Est GFR (CKD-EPI)AfAm 7 (>60 ml/min/1.73 sqM) Est GFR (CKD-EPI)NonAf 6 (>60 ml/min/1.73 sqM) Glucose 432 H (74-99) mg/dL Calcium 7.5 L (8.4-10.2) mg/dL Total Bilirubin 0.8 (0.2-1.3) mg/dL AST 13 L (14-36) U/L ALT 12 (9-52) U/L Alkaline Phosphatase 139 H (38-126) U/L Total Protein 6.8 (6.3-8.2) g/dL Albumin 3.9 (3.5-5.0) g/dL Disposition Clinical Impression: Cat bite, Failure of outpatient treatment Disposition: ADMITTED IP TO THIS HOSP Condition: Stable Instructions: Animal Bite (ED) Is patient prescribed a controlled substance at d/c from ED?: No Referrals: Kimberli Gar MD [Primary Care Provider] - 1-2 days Time of Disposition: 12:03
[2017-07-23] MEDS ORDERED: cefTRIAXone IN SWFI 1,000 MG/10 ML SYRINGE IVP STA (09:54)
[2017-07-23] MEDS ORDERED: HYDROcodone/APAP 5-325MG 1 EACH TAB PO STA (10:01)
[2017-07-23] MEDS ORDERED: metroNIDAZOLE-NS PMX 500 MG in SALINE 1 100ML.BAG IVPB STA (10:05)
[2017-07-23 10:18] LABS: Anisocytosis Slight; Basophils % (A) 0 %; Eosinophils % (A) 0 %; HGB 10.3 gm/dL (11.4-16.0); Hypochromasia Slight; Lymphocytes # (A) 0.2 k/uL (1.0-4.8); Lymphocytes % (A) 3 %; MCH 29.1 pg (25.0-35.0); MCHC 31.3 g/dL (31.0-37.0); MCV 93.1 fL (80.0-100.0); Mean Platelet Volume 7.5; Monocytes # (A) 0.4 k/uL (0-1.0); Monocytes % (A) 5 %; Neutrophils # (A) 8.8 k/uL (1.3-7.7); Neutrophils % (A) 91 %; Platelet Count 374 k/uL (150-450); RBC 3.55 m/uL (3.80-5.40); RDW 16.5 % (11.5-15.5); WBC 9.7 k/uL (3.8-10.6)
[2017-07-23 10:37] LABS: Albumin 3.9 g/dL (3.5-5.0); Calcium 7.5 mg/dL (8.4-10.2); Potassium 4.3 mmol/L (3.5-5.1); Total Bilirubin 0.8 mg/dL (0.2-1.3); Total Protein 6.8 g/dL (6.3-8.2)
--- NOTE | 2017-07-23 11:23 | XR ---
EXAMINATION TYPE: XR foot limited RT DATE OF EXAM: 07/23/2017 CLINICAL HISTORY: Right lower extremity redness and swelling after cat bite. TECHNIQUE: Frontal, lateral, and oblique images of the right foot are obtained. COMPARISON: None FINDINGS: There is diffuse osseous demineralization of the right foot. No focal cortical erosion or p eriosteal reaction is seen. Postsurgical changes of the distal tibia and fibula are present. Lucency through the fifth digit distal interphalangeal joint may relate to postsurgical sequela or prior inju ry as this was not present on the prior of 07/14/2016. Small vessel marked atherosclerosis is noted. S mall Achilles and moderate plantar enthesophytes are noted. There is diffuse soft tissue swelling of the forefoot, midfoot and to a lesser degree of the hindfoot. This is most pronounced dorsally over t he midfoot. No subcutaneous emphysema or radiopaque foreign body. Degenerative changes of the distal interphalangeal joints and first metatarsal phalangeal joint are mild. IMPRESSION: Extensive soft tissue swelling of the midfoot and forefoot most pronounced over the dorsa l midfoot without radiopaque foreign body or subcutaneous emphysema. There is diffuse osteopenia, deg enerative changes, and small vessel atherosclerosis without current radiographic sequela of osteomyel itis.
[2017-07-23] MEDS ORDERED: DIPH,PERTUS(ACELL)TETVAC-LF 0.5 ML VIAL IM ONE (11:54)
[2017-07-23] MEDS ORDERED: ONDANSETRON 4 MG/2 ML VIAL IVP PRN (12:03)
[2017-07-23] MEDS ORDERED: ACETAMINOPHEN TAB 325 MG TAB PO PRN (12:03)
[2017-07-23] MEDS ORDERED: SODIUM CHLORIDE 0.9% 1,000 ML IV ONE (12:03)
[2017-07-23] MEDS ORDERED: NALOXONE 0.4 MG/ML 1 ML VIAL IV PRN (12:03)
[2017-07-23] MEDS ORDERED: Insulin Aspart (For Pump) 100 UNIT/ML VIAL SQ-PUMP SCH (15:30)
[2017-07-23] MEDS: CLOPIDOGREL 75 MG TAB PO SCH (15:53)
[2017-07-23] MEDS ORDERED: INSPUCOR MISCELLANE PRN (15:58)
[2017-07-23] MEDS ORDERED: INSULIN ASPART 100 UNIT/ML 1 ML 10 ML VIAL SQ PRN (15:58)
[2017-07-23] MEDS: MORPHINE SULFATE 4 MG/ML SYRINGE IVP PRN ×2 (16:03→22:49)
--- NOTE | 2017-07-23 19:35 | P.HPIM ---
History of Present Illness H&P Date: 07/23/17 Chief Complaint: Provoked cat bite right foot redness pain swelling The patient is a pleasant 62-year-old female patient who sees Dr. Gar and Dr. JAE Talley as an outpatient with a past medical history significant for coronary artery disease and prior coronary artery stenting with the patient underwent stenting of the proximal left anterior descending artery as well as ramus intermedius in April 2014, diabetes type 2, end stage renal disease on hemodialysis Friday, as well as dyslipidemia She presented to the emergency room secondary Bite that happened 07/17/2017, currently the her domesticated cat was trying to get out of her apartment and went into another hallway and as the patient was trying to leave her home she tried collecting the And rushed into the hallway at the end of it, her chest wall brushed [employer] wheelchair navigation stick propelling the forward to full speed Trapping the cat Into the wall crushing it . the cat Started biting the patient's right foot approximately 8-9 times and was subsequently red inflamed swollen painful. She was started antibiotic when seen in the ER the next day, for which she filled the prescription 4 days prior to admission. The patient was subsequently seen by Dr. Goel in the office 3 days ago for another antibiotic however the antibiotics to expensive for her to get, and when she woke up this morning, the foot was significantly red swollen and very painful blistery, now it has redness involving the dorsum off the right foot metatarsal region, affecting the first toe, and below the ankles both medical lateral. There is no ulcers or open wound, however there are puncture swain noted, between the first and second metatarsal region approximately 3 cm patient was subsequently admitted for cellulitis of the foot with abscess formation, x-rays were done, TD vaccination the ER, and was admitted because of Dr. Chin. Patient was started on Rocephin patient has penicillin ALLERGY Review of Systems Constitutional: Reports as per HPI, Denies anorexia, Denies chills, Denies chronic headaches, Denies chronic pain, Denies daytime sleepiness, Denies fatigue, Denies fever, Denies lethargy, Denies malaise, Denies night sweats, Denies poor appetite, Denies sweats, Denies weakness, Denies weight gain, Denies weight loss Ears, nose, mouth and throat: Reports as per HPI, Denies ant. neck pain, Denies bleeding gums, Denies dental pain, Denies dysphagia, Denies epistaxis, Denies headache, Denies hoarseness, Denies mouth pain, Denies nasal congestion, Denies nasal discharge, Denies neck fullness/pressure, Denies neck lump, Denies nose pain, Denies odynophagia, Denies post-nasal drip, Denies sinus pain, Denies sinus pressure, Denies swelling in mouth, Denies swelling in throat, Denies sore throat, Denies vertigo, Denies voice changes Cardiovascular: Reports as per HPI Respiratory: Reports as per HPI, Denies congestion, Denies cough, Denies cough with sputum, Denies dyspnea, Denies excessive sputum, Denies hemoptysis, Denies home oxygen, Denies pain, Denies pain on inspiration, Denies pleurisy, Denies respiratory infections, Denies sleep apnea, Denies snoring, Denies wheezing Gastrointestinal: Reports as per HPI, Denies abdominal pain, Denies belching, Denies bloating, Denies BRBPR, Denies change in bowel habits, Denies coffee ground emesis, Denies constipation, Denies diarrhea, Denies dyspepsia, Denies early satiety, Denies excessive gas, Denies heartburn, Denies hematemesis, Denies hematochezia, Denies indigestion, Denies jaundice, Denies lactose intolerance, Denies loss of appetite, Denies melena, Denies nausea, Denies vomiting Genitourinary: Reports as per HPI, Denies abnormal vaginal bleeding, Denies decreased libido, Denies difficulty conceiving, Denies difficulty voiding, Denies dysmenorrhea, Denies dyspareunia, Denies dysuria, Denies flank pain, Denies genital sores, Denies hematuria, Denies hot flashes, Denies incomplete emptying, Denies kidney stones, Denies menorrhagia, Denies mixed incontinence, Denies nocturia, Denies pelvic pain, Denies post void dribbling, Denies , Denies prolapse symptoms, Denies stress incontinence, Denies urge incontinence , Denies urgency, Denies urinary frequency, Denies vaginal discharge, Denies vaginal dryness, Denies vaginal itching, Denies vaginal odor Menstruation: Reports as per HPI, Reports postmenopausal, Denies amenorrhea, Denies amenorrhea on BC, Denies currently menstrual, Denies cycle < 21 days, Denies cycle > 35 days, Denies cycle variable, Denies menses 1-7 days, Denies menses 8 or > days, Denies menses variable, Denies period heavy, Denies period light, Denies period normal, Denies period spotting, Denies post hysterectomy, Denies premenarcheal Musculoskeletal: Reports as per HPI Integumentary: Reports as per HPI, Reports color changes, Reports rash, Reports wounds Neurological: Reports as per HPI Psychiatric: Reports as per HPI, Denies anhedonia, Denies anxiety, Denies anxiety attacks, Denies change in appetite, Denies change in libido, Denies change in sleep habits, Denies confusion, Denies depression, Denies difficulty concentrating, Denies disorientation, Denies hallucinations, Denies hopelessness , Denies hypersomnia, Denies insomnia, Denies irritability, Denies memory loss, Denies mood swings, Denies paranoia, Denies sadness/tearfulness, Denies sleep disturbances, Denies suicidal ideation Past Medical History Past Medical History: Coronary Artery Disease (CAD), Diabetes Mellitus, Dialysis , Hyperlipidemia, Hypertension, Myocardial Infarction (NM), Osteoarthritis (OA) , Thyroid Disorder Additional Past Medical History / Comment(s): per past medical charting pt's stated "pt has had 17 mi's". ischemic cardiomyopathy. [place] in 2005 and September 2013, 12/29/15 STRESS WNL, Hepatitis A, ALLERGIC rhinitis,NM,ESRD/DIALYSIS- ON --, CARDIO-PULMONARY ARREST 07/05/14 and pt stated she has had short term memory problems since, hypertensive nephrosclerosis, Hepatitis A,Vitamin D deficiency, constipation.dm- uses an insulin pump.HX OF FALLS Last Myocardial Infarction Date:: 09/2013 History of Any Multi-Drug Resistant Organisms: MRSA Date of last positivie culture/infection: 2011 MDRO Source:: blood Past Surgical History: Adenoidectomy, Appendectomy, Cholecystectomy, Heart Catheterization With Stent, Hysterectomy, Tonsillectomy Additional Past Surgical History / Comment(s): mary cataracts, LAP-BAND 2004, Laparoscopic cholecystectomy, FIBULA FX has metal pins in place,Left shoulder surgery, Hemodialysis Cataract bilateral with IOL, fistula and sx to" reroute it ",gets dialysis mon-wed-fri. has insulin pump. no bp on left Past Anesthesia/Blood Transfusion Reactions: Motion Sickness, Postoperative Nausea & Vomiting (PONV) Date of Last Stent Placement:: 2014 Past Psychological History: Anxiety, Bipolar, Depression Additional Psychological History / Comment(s): [place]-=HAS-uses a walker in house and MPTORIZED w/c outdoors. does'nt drive anymore but has a license.HAS GLUCOMETER AND INSULIN PUMP. Smoking Status: Never smoker Past Alcohol Use History: None Reported Past Drug Use History: None Reported - Past Family History Mother Family Medical History: Congestive Heart Failure (CHF), Diabetes Mellitus, Hypertension Father History Unknown: Yes Family Medical History: Diabetes Mellitus Brother(s) Family Medical History: Diabetes Mellitus, Hyperlipidemia Additional Family Medical History / Comment(s): Hypertension chronic kidney disease Medications and Allergies Home Medications Medication Instructions Recorded Confirmed Type Famotidine [Pepcid] 20 mg PO DAILY 04/29/14 07/23/17 History Furosemide [Lasix] 80 mg PO BID 08/04/14 07/23/17 History Aspirin EC [Ecotrin Low Dose] 81 mg PO DAILY 01/01/16 07/23/17 History Escitalopram [Lexapro] 20 mg PO DAILY 01/01/16 07/23/17 History Insulin Aspart (For Pump) [NovoLOG See Protocol SQ-PUMP CONTINUOUS 01/01/1612/02 History (For Pump)] busPIRone HCL 15 mg PO BID 01/01/16 07/23/17 History LORazepam [Ativan] 1 mg PO BID 07/14/16 07/23/17 History Atorvastatin [Lipitor] 80 mg PO HS 12/27/16 07/23/17 History amLODIPine [Norvasc] 10 mg PO DAILY 12/27/16 07/23/17 History Clopidogrel [Plavix] 75 mg PO Q48H 03/21/17 07/23/17 History Isosorbide Mononitrate ER [Imdur] 30 mg PO DAILY 03/21/17 07/23/17 History lamoTRIgine [LaMICtal] 100 mg PO DAILY 07/01/17 07/23/17 History lamoTRIgine [LaMICtal] 150 mg PO HS 07/01/17 07/23/17 History Ciprofloxacin HCl [Cipro] 500 mg PO Q12HR 07/23/17 07/23/17 History Allergies Allergy/AdvReac Type Severity Reaction Status Date / Time adhesive Allergy Rash/Hives Verified 07/23/17 09:34 Iodinated Contrast- Oral and Allergy KIDNEY Verified 07/23/17 09:34 IV Dye FAILURE metformin Allergy SUGAR Verified 07/23/17 09:34 LEVEL INCREASE Penicillins Allergy Rash/Hives Verified 07/23/17 09:34 Physical Exam Vitals: Vital Signs Temp Pulse Pulse Resp BP BP Pulse Ox 07/23/17 14:19 6 L 07/23/17 13:39 97.8 F 67 6 L 177/80 95 07/23/17 11:40 97.5 F L 62 16 145/65 98 07/23/17 09:17 98 F 70 18 143/66 98 Intake and Output 07/23/17 07/23/17 07/23/17 06:59 14:59 22:59 Other: Weight 113.8 kg - Constitutional General appearance: cooperative, no acute distress, obese - EENT Eyes: anicteric sclerae, EOMI, PERRLA, normal appearance ENT: NA/AT, normal oropharynx - Neck Neck: no lymphadenopathy, normal ROM, no other, no rigidity, no stridor, no thyromegaly - Respiratory Respiratory: bilateral: CTA, negative: diminished, dullness, rales, rhonchi, wheezing, prolonged expiration - Cardiovascular Rhythm: regular Heart sounds: normal: S1, S2 Abnormal Heart Sounds: no systolic murmur, no diastolic murmur, no rub, no S3 Gallop, no S4 Gallop, no click, no other - Gastrointestinal General gastrointestinal: normal bowel sounds, soft - Integumentary Integumentary: cellulitis (Right dorsum flexural surface, involving the entire dorsum of the foot and the first toe base, and below the ankles is fluctuant 3 centimeter between the first and second metatarsal measuring 3 cm), decreased turgor, normal - Neurologic Neurologic: CNII-XII intact - Musculoskeletal Musculoskeletal: gait normal, strength equal bilaterally - Psychiatric Psychiatric: A&O x's 3, appropriate affect, intact judgment & insight Results CBC & Chem 7: 07/23/17 10:00 07/23/17 10:00 Labs: Abnormal Lab Results - Last 24 Hours (Table) 07/23/17 07/23/17 Range/Units 10:00 10:00 RBC 3.55 L (3.80-5.40) m/uL Hgb 10.3 L (11.4-16.0) gm/dL Hct 33.0 L (34.0-46.0) % RDW 16.5 H (11.5-15.5) % Neutrophils # 8.8 H (1.3-7.7) k/uL Lymphocytes # 0.2 L (1.0-4.8) k/uL Sodium 133 L (137-145) mmol/L Chloride 87 L (98-107) mmol/L BUN 47 H (7-17) mg/dL Creatinine 6.47 H* (0.52-1.04) mg/dL Glucose 432 H (74-99) mg/dL Calcium 7.5 L (8.4-10.2) mg/dL AST 13 L (14-36) U/L Alkaline Phosphatase 139 H (38-126) U/L Laboratory Results WBC 9.7 k/uL (3.8-10.6) 07/23/17 10:00 RBC 3.55 m/uL (3.80-5.40) L 07/23/17 10:00 Hgb 10.3 gm/dL (11.4-16.0) L 07/23/17 10:00 Hct 33.0 % (34.0-46.0) L 07/23/17 10:00 MCV 93.1 fL (80.0-100.0) 07/23/17 10:00 MCH 29.1 pg (25.0-35.0) 07/23/17 10:00 MCHC 31.3 g/dL (31.0-37.0) 07/23/17 10:00 RDW 16.5 % (11.5-15.5) H 07/23/17 10:00 Plt Count 374 k/uL (150-450) 07/23/17 10:00 Neutrophils % 91 % 07/23/17 10:00 Lymphocytes % 3 % 07/23/17 10:00 Monocytes % 5 % 07/23/17 10:00 Eosinophils % 0 % 07/23/17 10:00 Basophils % 0 % 07/23/17 10:00 Neutrophils # 8.8 k/uL (1.3-7.7) H 07/23/17 10:00 Lymphocytes # 0.2 k/uL (1.0-4.8) L 07/23/17 10:00 Monocytes # 0.4 k/uL (0-1.0) 07/23/17 10:00 Eosinophils # 0.0 k/uL (0-0.7) 07/23/17 10:00 Basophils # 0.0 k/uL (0-0.2) 07/23/17 10:00 Hypochromasia Slight 07/23/17 10:00 Anisocytosis Slight 07/23/17 10:00 Sodium 133 mmol/L (137-145) L 07/23/17 10:00 Potassium 4.3 mmol/L (3.5-5.1) 07/23/17 10:00 Chloride 87 mmol/L (98-107) L 07/23/17 10:00 Carbon Dioxide 23 mmol/L (22-30) 07/23/17 10:00 Anion Gap 23 mmol/L 07/23/17 10:00 BUN 47 mg/dL (7-17) H 07/23/17 10:00 Creatinine 6.47 mg/dL (0.52-1.04) H* 07/23/17 10:00 Est GFR (CKD-EPI)AfAm 7 (>60 ml/min/1.73 sqM) 07/23/17 10:00 Est GFR (CKD-EPI)NonAf 6 (>60 ml/min/1.73 sqM) 07/23/17 10:00 Glucose 432 mg/dL (74-99) H 07/23/17 10:00 Calcium 7.5 mg/dL (8.4-10.2) L 07/23/17 10:00 Total Bilirubin 0.8 mg/dL (0.2-1.3) 07/23/17 10:00 AST 13 U/L (14-36) L 07/23/17 10:00 ALT 12 U/L (9-52) 07/23/17 10:00 Alkaline Phosphatase 139 U/L (38-126) H 07/23/17 10:00 Total Protein 6.8 g/dL (6.3-8.2) 07/23/17 10:00 Albumin 3.9 g/dL (3.5-5.0) 07/23/17 10:00 Thrombosis Risk Factor Assmnt - DVT/VTE Prophylaxis DVT/VTE Prophylaxis: Pharmacologic Prophylaxis ordered - Choose All That Apply Each Factor Represents 1 point: Obesity (BMI >25), Swollen legs (current) Each Risk Factor Represents 2 Points: Age 61-74 years Thrombosis Risk Factor Assessment Total Risk Factor Score: 4 Thrombosis Risk Factor Assessment Level: Moderate Risk Assessment and Plan Plan: Assessment and Plan Plan: 1. Right foot Cellulitis after an animal bite (cat), domesticated 07/17/2017 with abscess formation second metatarsals, x-rays failed to reveal any osteomyelitis without any foreign body or subcutaneous emphysema, patient currently is on IV Rocephin, consult was made Dr. Chin from ID, and Dr. Dennison for I&D. patient has penicillin ALLERGY. Add metronidazole for an aerobic coverage empirically. Adjustments to treatment based on infectious disease recommendation Monitor for worsening lymphangitis and cellulitis, 2. CAD: Post PCI with angioplasty and stent to stent placement or primary this year had been seeing cardiology Dr. DOLLY Jc regular basis . D she is to continue on double antiplatelet agents statins and beta blockers. 3 end-stage chronic kidney disease on hemodialysis 3 times a week consult nephrology continue dialysis as outpatient to resume treatment as scheduled Friday schedule. 4 type 2 diabetes on insulin pump: Continue insulin via pump continue Accu-Chek with sliding scales coverage as well. 5 hyperlipidemia: Continue Lipitor at 40 mg daily changes were made. 6 asthma/COPD: Continue Pulmicort along with DuoNeb 4 times a day. 7 hypothyroidism: Continue levothyroxine with 50 g daily. 8. Known history off anxiety and depression are stable on Lexapro and BuSpar along with Clonopin no changes were made 9 GERD/GI prophylaxis: Continue Pepcid 20 mg daily 10. Hypertensive cardiac vessel disease on amlodipine 10 mg daily Lasix 80 mg twice a day Imdur 30 mg daily 11 Chronic pain syndrome: Resume hydrocodone DVT prophylaxis Pepcid GI prophylaxis
[2017-07-23] MEDS ORDERED: metroNIDAZOLE-NS PMX 500 MG in SALINE 1 100ML.BAG IVPB SCH (20:00)
[2017-07-23] MEDS: ATORVASTATIN 80 MG TAB PO SCH (20:29)
[2017-07-23] MEDS: busPIRone HCl 5 MG TAB PO SCH (20:29)
[2017-07-23] MEDS: cefTRIAXone IN SWFI 1,000 MG/10 ML SYRINGE IVP SCH ×2 (20:30→20:48)
[2017-07-23] MEDS: HEPARIN SODIUM,PORCINE 5,000 UNIT/ML 1 ML VIAL SQ SCH (20:30)
[2017-07-23] MEDS: FUROSEMIDE 80 MG TAB PO SCH (20:30)
[2017-07-23] MEDS: LORazepam 1 MG TAB PO SCH (20:31)
[2017-07-23] MEDS: lamoTRIgine 100 MG TAB PO SCH (20:31)
--- NOTE | 2017-07-23 21:10 | P.CONS ---
History of Present Illness - Reason for Consult Consult date: 07/23/17 - Chief Complaint Pain right foot - History of Present Illness 62-year-old female who suffers from superobesity, coronary artery disease, diabetes mellitus type 2 on insulin pump and chronic pain syndrome presents to Hospital after an injury to her right foot. The patient relates that she normally uses a power wheelchair. She does have a pet cat. Apparently the cat got out of her apartment and was going down the court or. She attempted to use a wheelchair to the cat off for many able to go down a different [place]. She went to reach for the cat and her breast. The control bar in the wheelchair jumped forward pinning the cat between the wall in the wheelchair. It was able to bite her foot multiple times before she was able to become cognizant enough to back the wheelchair off of the cat. Fortunately the cat was not seriously injured, and the patient relates a cat does have its vaccines. The patient was treated the outpatient setting and with her ALLERGIES are treated with ciprofloxacin and despite that he has had no improvement because it was admitted to hospital antibiotics with Rocephin and metronidazole were begun, she was seen by surgery without the need for surgical debridement at this time. However failing antibiotic therapy and constantly was admitted. The foot is painful swollen red and warm to touch. She believes she's had a low-grade fever but no chills or rigors. Her blood sugars have also been harder to control. Review of Systems 62-year-old woman superobesity is somewhat uncomfortable due to the foot pain. HEENT:Denies headache or acute visual change. Denies sinus or mouth discomforts. Denies neck stiffness or pain. Denies significant oral cavity pain. Denies difficulty on swallowing. Lungs: Denies significant shortness of breath, cough, sputum production, or hemoptysis. Cardiovascular: Denies significant shortness of breath, chest pain, chest wall pain, orthopnea, dyspnea on exertion, syncope Gastrointestinal:Denies nausea, vomiting, diarrhea, constipation, hematemesis, melena, hematochezia. No no significant change of bowel habit noticed. Musculoskeletal: Neurologic power wheelchair, had a fall out of her chair under her knees over a month ago and has continued to have difficulties with ambulation and has what appears to be a fluid collection on her right knee. She has not had medical care for that. Skin: As per the HPI Neuro: Denies headache or visual change. Denies any new onset weakness or difficulty with ambulation. Denies falls or seizures. Psychiatric:Denies anxiety or depression. Endocrine: Chronic fatigue and has debility with weight gain. Past Medical History Past Medical History: Coronary Artery Disease (CAD), Diabetes Mellitus, Dialysis , Hyperlipidemia, Hypertension, Myocardial Infarction (SC), Osteoarthritis (OA) , Thyroid Disorder Additional Past Medical History / Comment(s): per past medical charting pt's stated "pt has had 17 mi's". ischemic cardiomyopathy. SC in 2005 and September 2013, 12/29/15 STRESS WNL, Hepatitis A, ALLERGIC rhinitis,SC,ESRD/DIALYSIS- ON , CARDIO-PULMONARY ARREST 07/05/14 and pt stated she has had short term memory problems since, hypertensive nephrosclerosis, Hepatitis A,Vitamin D deficiency, constipation.dm- uses an insulin pump.HX OF FALLS Last Myocardial Infarction Date:: 09/2013 History of Any Multi-Drug Resistant Organisms: MRSA Year Discovered:: 2011 MDRO Source:: blood Past Surgical History: Adenoidectomy, Appendectomy, Cholecystectomy, Heart Catheterization With Stent, Hysterectomy, Tonsillectomy Additional Past Surgical History / Comment(s): mary cataracts, LAP-BAND 2004, Laparoscopic cholecystectomy, FIBULA FX has metal pins in place,Left shoulder surgery, Hemodialysis Cataract bilateral with IOL, fistula and sx to" reroute it ",gets dialysis mon-fri-fri. has insulin pump. no bp on left Past Anesthesia/Blood Transfusion Reactions: Motion Sickness, Postoperative Nausea & Vomiting (PONV) Date of Last Stent Placement:: 2014 Past Psychological History: Anxiety, Bipolar, Depression Additional Psychological History / Comment(s): PT IS [place]IVING [place]-=HAS-uses a walker in house and MoTORIZED w/c outdoors. does'nt drive anymore but has a license.HAS GLUCOMETER AND INSULIN PUMP. Lifelong nonsmoker. Denies alcohol use no experience. No international travel. Only one pet cat Smoking Status: Never smoker Past Alcohol Use History: None Reported Past Drug Use History: None Reported - Past Family History Mother Family Medical History: Congestive Heart Failure (CHF), Diabetes Mellitus, Hypertension Father History Unknown: Yes Family Medical History: Diabetes Mellitus Brother(s) Family Medical History: Diabetes Mellitus, Hyperlipidemia Additional Family Medical History / Comment(s): Hypertension chronic kidney disease Medications and Allergies Home Medications and Allergies Comment(s): Current Medications Acetaminophen (Tylenol Tab) 650 mg PO Q6HR PRN PRN Reason: Mild Pain or Fever > 100.5 Hydrocodone Bitart/Acetaminophen ([place] 5-325) 1 each PO Q4HR PRN PRN Reason: Moderate Pain Amlodipine Besylate (Norvasc) 10 mg PO DAILY [facility] Aspirin (Aspirin) 81 mg PO DAILY [facility] Atorvastatin Calcium (Lipitor) 80 mg PO HS [facility] Last Admin: 07/23/17 20:29 Dose: 80 mg Buspirone HCl (Buspar) 15 mg PO BID [facility] Last Admin: 07/23/17 20:29 Dose: 15 mg Clopidogrel Bisulfate (Plavix) 75 mg PO Q48H [facility] Last Admin: 07/23/17 15:53 Dose: Not Given Escitalopram Oxalate (Lexapro) 20 mg PO DAILY [facility] Famotidine (Pepcid) 20 mg PO DAILY [facility] Furosemide (Lasix) 80 mg PO BID [facility] Last Admin: 07/23/17 20:30 Dose: 80 mg Heparin Sodium (Porcine) (Heparin) 5,000 unit SQ Q12HR [facility] Last Admin: 07/23/17 20:30 Dose: 5,000 unit Sodium Chloride (Saline 0.9%) 1,000 mls @ 75 mls/hr IV .[id number] STA Stop: 07/23/17 22:58 Last Admin: 07/23/17 10:34 Dose: Not Given Sodium Chloride (Saline 0.9%) 1,000 mls @ 75 mls/hr IV .[id number] ONE Stop: 07/24/17 01:22 Last Admin: 07/23/17 13:47 Dose: 75 mls/hr Ertapenem 1 gm/ Sodium (Chloride) 50 mls @ 100 mls/hr IVPB HS [facility] Insulin Aspart (Novolog) 0 unit SQ DAILY PRN PRN Reason: Insulin Pump Replacement Isosorbide Mononitrate (Imdur) 30 mg PO DAILY [facility] Lamotrigine (Lamictal) 100 mg PO DAILY [facility] Lamotrigine (Lamictal) 150 mg PO HS [facility] Last Admin: 07/23/17 20:31 Dose: 150 mg Lorazepam (Ativan) 1 mg PO BID [facility] Last Admin: 07/23/17 20:31 Dose: 1 mg Miscellaneous Information (Insulin Pump Correction Bolus) 0 unit MISCELLANE ACHS PRN; Protocol PRN Reason: Blood Sugar - High Morphine Sulfate (Morphine Sulfate (Inj)) 7 mg IVP Q6HR PRN PRN Reason: Severe Pain Last Admin: 07/23/17 16:03 Dose: 7 mg Naloxone HCl (Narcan) 0.2 mg IV Q2M PRN PRN Reason: Opioid Reversal Ondansetron HCl (Zofran) 4 mg IVP Q8HR PRN PRN Reason: Nausea And Vomiting Silver Sulfadiazine (Silvadene Cream) 1 applic TOPICAL BID [facility] Home Medications Medication Instructions Recorded Confirmed Type Famotidine [Pepcid] 20 mg PO DAILY 04/29/14 07/23/17 History Furosemide [Lasix] 80 mg PO BID 08/04/14 07/23/17 History Aspirin EC [Ecotrin Low Dose] 81 mg PO DAILY 01/01/16 07/23/17 History Escitalopram [Lexapro] 20 mg PO DAILY 01/01/16 07/23/17 History Insulin Aspart (For Pump) [NovoLOG See Protocol SQ-PUMP CONTINUOUS 01/01/1612/02 History (For Pump)] busPIRone HCL 15 mg PO BID 01/01/16 07/23/17 History LORazepam [Ativan] 1 mg PO BID 07/14/16 07/23/17 History Atorvastatin [Lipitor] 80 mg PO HS 12/27/16 07/23/17 History amLODIPine [Norvasc] 10 mg PO DAILY 12/27/16 07/23/17 History Clopidogrel [Plavix] 75 mg PO Q48H 03/21/17 07/23/17 History Isosorbide Mononitrate ER [Imdur] 30 mg PO DAILY 03/21/17 07/23/17 History lamoTRIgine [LaMICtal] 100 mg PO DAILY 07/01/17 07/23/17 History lamoTRIgine [LaMICtal] 150 mg PO HS 07/01/17 07/23/17 History Ciprofloxacin HCl [Cipro] 500 mg PO Q12HR 07/23/17 07/23/17 History Allergies Allergy/AdvReac Type Severity Reaction Status Date / Time adhesive Allergy Rash/Hives Verified 07/23/17 09:34 Iodinated Contrast- Oral and Allergy KIDNEY Verified 07/23/17 09:34 IV Dye FAILURE metformin Allergy SUGAR Verified 07/23/17 09:34 LEVEL INCREASE Penicillins Allergy Rash/Hives Verified 07/23/17 09:34 Physical Exam Vitals: Vital Signs Temp Pulse Pulse Resp BP BP Pulse Ox 07/23/17 14:19 6 L 07/23/17 13:39 97.8 F 67 6 L 177/80 95 07/23/17 11:40 97.5 F L 62 16 145/65 98 07/23/17 09:17 98 F 70 18 143/66 98 Intake and Output 07/23/17 07/23/17 07/23/17 06:59 14:59 22:59 Other: Weight 113.8 kg 62-year-old woman with superobesity is somewhat uncomfortable HEENT: Anicteric conjunctiva are pink and moist nasal mucosa grossly intact without significant lesions, there is no thrush. Neck: The neck is supple without significant lymphadenopathy or thyromegaly. Lungs: Good bilateral air entry without significant crackles or wheezing. There is no significant bronchial sounds. There is no egophony or dullness. Heart: Regular rate and rhythm with an audible S1-S2, no S3 no S4. There is no significant murmur click or rub, PMI was nondisplaced. Abdomen: Obese Positive bowel sounds soft and nontender without palpable masses or organomegaly. There was no guarding or rebound. Extremities: The upper extremities have excellent pulses they are symmetric, no significant petechiae or telangiectasia. No splinter hemorrhages were noted. The bilateral lower extremities show evidence of the healing ecchymosis of the bilateral knees from her fall about a month ago. Does have evidence of some residual swelling and fluid to the right prepatellar area. He has not very tender to touch it is not warm at that site. The right foot however is very swollen compared to the left. There is the multiple healing bite swain without evidence of michael purulence. There is dense erythema it is quite warm and tender. There is not a significant amount of ascending lymphangitis. And there is no tender lymphadenopathy into the right groin. No other abnormal lymph nodes are noted either. Neuro: Awake alert oriented to person place and time. There are no acute new gross focal sensory motor deficits. Results CBC & Chem 7: 07/23/17 10:00 07/23/17 10:00 Labs: Abnormal Lab Results - Last 24 Hours (Table) 07/23/17 07/23/17 Range/Units 10:00 10:00 RBC 3.55 L (3.80-5.40) m/uL Hgb 10.3 L (11.4-16.0) gm/dL Hct 33.0 L (34.0-46.0) % RDW 16.5 H (11.5-15.5) % Neutrophils # 8.8 H (1.3-7.7) k/uL Lymphocytes # 0.2 L (1.0-4.8) k/uL Sodium 133 L (137-145) mmol/L Chloride 87 L (98-107) mmol/L BUN 47 H (7-17) mg/dL Creatinine 6.47 H* (0.52-1.04) mg/dL Glucose 432 H (74-99) mg/dL Calcium 7.5 L (8.4-10.2) mg/dL AST 13 L (14-36) U/L Alkaline Phosphatase 139 H (38-126) U/L Laboratory Results WBC 9.7 k/uL (3.8-10.6) 07/23/17 10:00 RBC 3.55 m/uL (3.80-5.40) L 07/23/17 10:00 Hgb 10.3 gm/dL (11.4-16.0) L 07/23/17 10:00 Hct 33.0 % (34.0-46.0) L 07/23/17 10:00 MCV 93.1 fL (80.0-100.0) 07/23/17 10:00 MCH 29.1 pg (25.0-35.0) 07/23/17 10:00 MCHC 31.3 g/dL (31.0-37.0) 07/23/17 10:00 RDW 16.5 % (11.5-15.5) H 07/23/17 10:00 Plt Count 374 k/uL (150-450) 07/23/17 10:00 Neutrophils % 91 % 07/23/17 10:00 Lymphocytes % 3 % 07/23/17 10:00 Monocytes % 5 % 07/23/17 10:00 Eosinophils % 0 % 07/23/17 10:00 Basophils % 0 % 07/23/17 10:00 Neutrophils # 8.8 k/uL (1.3-7.7) H 07/23/17 10:00 Lymphocytes # 0.2 k/uL (1.0-4.8) L 07/23/17 10:00 Monocytes # 0.4 k/uL (0-1.0) 07/23/17 10:00 Eosinophils # 0.0 k/uL (0-0.7) 07/23/17 10:00 Basophils # 0.0 k/uL (0-0.2) 07/23/17 10:00 Hypochromasia Slight 07/23/17 10:00 Anisocytosis Slight 07/23/17 10:00 Sodium 133 mmol/L (137-145) L 07/23/17 10:00 Potassium 4.3 mmol/L (3.5-5.1) 07/23/17 10:00 Chloride 87 mmol/L (98-107) L 07/23/17 10:00 Carbon Dioxide 23 mmol/L (22-30) 07/23/17 10:00 Anion Gap 23 mmol/L 07/23/17 10:00 BUN 47 mg/dL (7-17) H 07/23/17 10:00 Creatinine 6.47 mg/dL (0.52-1.04) H* 07/23/17 10:00 Est GFR (CKD-EPI)AfAm 7 (>60 ml/min/1.73 sqM) 07/23/17 10:00 Est GFR (CKD-EPI)NonAf 6 (>60 ml/min/1.73 sqM) 07/23/17 10:00 Glucose 432 mg/dL (74-99) H 07/23/17 10:00 Calcium 7.5 mg/dL (8.4-10.2) L 07/23/17 10:00 Total Bilirubin 0.8 mg/dL (0.2-1.3) 07/23/17 10:00 AST 13 U/L (14-36) L 07/23/17 10:00 ALT 12 U/L (9-52) 07/23/17 10:00 Alkaline Phosphatase 139 U/L (38-126) H 05/09/18 10:00 Total Protein 6.8 g/dL (6.3-8.2) 07/23/17 10:00 Albumin 3.9 g/dL (3.5-5.0) 07/23/17 10:00 Patient has had prior hospitalization prior cultures and does have evidence of MSSA as well as Enterobacter cloacae that is Rocephin non-susceptible Assessment and Plan (1) Cat bite Narrative/Plan: 62-year-old male presents to Hospital several days after cat bite. It is noted the bite was provoked resulting in the significant cellulitis to her right foot from the multiple bites. The and was up-to-date on his vaccines. The patient received her Tdap at admit. She is evidence of the ongoing cellulitis to the foot is very painful. There is no evidence of significant fluctuance and no significant abscess at this time on the foot that can be drained. Patient is feeling antibiotic therapy and with her history of prior pathogens and the history of resistant Enterobacter we'll alter from Rocephin and metronidazole to ertapenem which should give us coverage for the usual pathogens of the Mouth as well as the potential resistant Enterobacter that she is colonized with. Silvadene wrap will be applied. Elevating the foot while she is at rest is important. Controlling her blood sugars will also be helpful in this healing process. Making sure she has adequate protein intake is also helpful. Current Visit: Yes Status: Acute Code(s): W55.01XA - BITTEN BY CAT, INITIAL ENCOUNTER SNOMED Code(s): 391153370 (2) Failure of outpatient treatment Current Visit: Yes Status: Acute Code(s): Z78.9 - OTHER SPECIFIED HEALTH STATUS SNOMED Code(s): 893537795 (3) Poorly controlled type 2 diabetes mellitus Current Visit: Yes Status: Acute Code(s): E11.65 - TYPE 2 DIABETES MELLITUS WITH HYPERGLYCEMIA SNOMED Code(s): 27399063 (4) Obesity Current Visit: No Status: Acute Code(s): E66.9 - OBESITY, UNSPECIFIED SNOMED Code(s): 489497714
[2017-07-23 21:41] LABS: Glucose,Whole Blood 137 mg/dL (75-99)
[2017-07-23] MEDS ORDERED: ERTAPENEM 1 GM in SODIUM CHLORIDE 0.9% 50 ML IVPB SCH (22:00)
[2017-07-24 01:32] LABS: Hemoglobin A1C 7.6 % (4.0-6.0)
[2017-07-24] MEDS: HYDROcodone/APAP 5-325MG 1 EACH TAB PO PRN ×3 (01:50→18:08)
[2017-07-24 02:33] LABS: Glucose,Whole Blood 75 mg/dL (75-99)
[2017-07-24] MEDS: MORPHINE SULFATE 4 MG/ML SYRINGE IVP PRN (06:14)
[2017-07-24 07:16] LABS: Glucose,Whole Blood 119 mg/dL (75-99)
[2017-07-24 08:44] LABS: Anisocytosis Slight; Basophils % (A) 0 %; Eosinophils # (A) 0.2 k/uL (0-0.7); Eosinophils % (A) 2 %; HCT 32.2 % (34.0-46.0); Hypochromasia Moderate; Lymphocytes # (A) 0.5 k/uL (1.0-4.8); Lymphocytes % (A) 6 %; MCH 28.8 pg (25.0-35.0); MCHC 30.9 g/dL (31.0-37.0); MCV 93.1 fL (80.0-100.0); Mean Platelet Volume 7.6; Monocytes # (A) 0.6 k/uL (0-1.0); Monocytes % (A) 7 %; Neutrophils # (A) 7.8 k/uL (1.3-7.7); Neutrophils % (A) 84 %; Platelet Count 361 k/uL (150-450); RBC 3.46 m/uL (3.80-5.40); RDW 16.5 % (11.5-15.5); WBC 9.3 k/uL (3.8-10.6)
[2017-07-24] MEDS: FUROSEMIDE 80 MG TAB PO SCH ×2 (08:54→22:52)
[2017-07-24] MEDS: busPIRone HCl 5 MG TAB PO SCH ×2 (08:54→22:52)
[2017-07-24] MEDS: FAMOTIDINE 20 MG TAB PO SCH (08:54)
[2017-07-24] MEDS: ASPIRIN 81 MG PO SCH (08:54)
[2017-07-24] MEDS: HEPARIN SODIUM,PORCINE 5,000 UNIT/ML 1 ML VIAL SQ SCH ×2 (08:54→22:54)
[2017-07-24] MEDS: ESCITALOPRAM 20 MG TAB PO SCH (08:54)
[2017-07-24] MEDS: ISOSORBIDE MONONITRATE ER 30 MG TAB.ER.24H PO SCH (08:55)
[2017-07-24] MEDS: lamoTRIgine 100 MG TAB PO SCH ×2 (08:55→22:52)
[2017-07-24 09:03] LABS: Albumin 3.8 g/dL (3.5-5.0); Potassium 3.8 mmol/L (3.5-5.1); Total Bilirubin 0.6 mg/dL (0.2-1.3); Total Protein 6.7 g/dL (6.3-8.2)
[2017-07-24] MEDS: amLODIPine 10 MG TAB PO SCH (09:03)
[2017-07-24] MEDS: LORazepam 1 MG TAB PO SCH ×2 (09:09→23:18)
[2017-07-24] MEDS: SILVER sulfADIAZINE Cream 400 GM 1 APPLIC APPLIC TOPICAL SCH ×2 (09:46→22:57)
[2017-07-24] MEDS ORDERED: GELATIN SPONGE,ABSORB (SMALL) 1 EACH SPONGE ONE (10:15)
[2017-07-24] MEDS ORDERED: INSULIN PUMP ACTIVE INSULIN 1 EACH MISC MISCELLANE PRN (10:56)
[2017-07-24] MEDS ORDERED: INSULIN PUMP BASAL RATES 1 EACH MISC MISCELLANE PRN (10:56)
[2017-07-24] MEDS ORDERED: INSULIN PUMP TARGET GLUCOSE 1 EACH MISC MISCELLANE PRN (10:56)
[2017-07-24 12:54] LABS: Glucose,Whole Blood 87 mg/dL (75-99)
[2017-07-24] MEDS: MORPHINE ORAL SOLN 10 MG/5 ML CUP PO PRN ×2 (14:31→23:02)
--- NOTE | 2017-07-24 14:31 | P.PN ---
Subjective Progress Note Date: 07/24/17 The patient is a pleasant 62-year-old female patient who sees Dr. Gar and Dr. JAE Talley as an outpatient with a past medical history significant for coronary artery disease and prior coronary artery stenting with the patient underwent stenting of the proximal left anterior descending artery as well as ramus intermedius in April 2014, diabetes type 2, end stage renal disease on hemodialysis Friday, as well as dyslipidemia She presented to the emergency room secondary Bite that happened 07/17/2017, currently the her domesticated cat was trying to get out of her apartment and went into another hallway and as the patient was trying to leave her home she tried collecting the And rushed into the hallway at the end of it, her chest wall brushed thestartuplywer wheelchair navigation stick propelling the forward to full speed Trapping the cat Into the wall crushing it . the cat Started biting the patient's right foot approximately 8-9 times and was subsequently red inflamed swollen painful. She was started antibiotic when seen in the ER the next day, for which she filled the prescription 4 days prior to admission. The patient was subsequently seen by Dr. Goel in the office 3 days ago for another antibiotic however the antibiotics to expensive for her to get, and when she woke up this morning, the foot was significantly red swollen and very painful blistery, now it has redness involving the dorsum off the right foot metatarsal region, affecting the first toe, and below the ankles both medical lateral. There is no ulcers or open wound, however there are puncture swain noted, between the first and second metatarsal region approximately 3 cm patient was subsequently admitted for cellulitis of the foot with abscess formation, x-rays were done, TD vaccination the ER, and was admitted because of Dr. Chin. Patient was started on Rocephin patient has penicillin ALLERGY 07/24: Patient has been seen by Dr. Chin with recommendations to change antibiotics to ertapenem and Silvadene wrap to the right foot. Patient's white count is normal, she has been afebrile. Dr. Dennison consult changed to [facility]. Edema and redness to the right foot is improved from yesterday. Blood sugars are running 75-119. BUN is 52 and creatinine 7.61. Patient is followed by Dr. Talley for hemodialysis. HD for today as she missed a treatment and then resume usual schedule for tomorrow. Objective - Vital Signs Vital signs: Vital Signs Temp 97.6 F 07/24/17 07:00 Pulse 69 07/24/17 07:00 Resp 18 07/24/17 07:00 BP 117/59 07/24/17 07:00 Pulse Ox 92 L 07/24/17 07:00 Intake & Output 07/23/17 07/24/17 07/24/17 18:59 06:59 18:59 Intake Total 450 Balance 450 Weight 113.8 kg Intake: Oral 450 Other: # Voids 0 - Exam General appearance: cooperative, no acute distress, obese - EENT Eyes: anicteric sclerae, EOMI, PERRLA, normal appearance ENT: NA/AT, normal oropharynx - Neck Neck: no lymphadenopathy, normal ROM, no other, no rigidity, no stridor, no thyromegaly - Respiratory Respiratory: bilateral: CTA, negative: diminished, dullness, rales, rhonchi, wheezing, prolonged expiration - Cardiovascular Rhythm: regular Heart sounds: normal: S1, S2 Abnormal Heart Sounds: no systolic murmur, no diastolic murmur, no rub, no S3 Gallop, no S4 Gallop, no click, no other - Gastrointestinal General gastrointestinal: normal bowel sounds, soft - Integumentary Integumentary: cellulitis (Right dorsum flexural surface, involving the entire dorsum of the foot and the first toe base, and below the ankles is fluctuant 3 centimeter between the first and second metatarsal measuring 3 cm), decreased turgor, normal - Neurologic Neurologic: CNII-XII intact - Musculoskeletal Musculoskeletal: gait normal, strength equal bilaterally - Psychiatric Psychiatric: A&O x's 3, appropriate affect, intact judgment & insight - Labs CBC & Chem 7: 07/24/17 07:44 07/24/17 07:44 Labs: Abnormal Lab Results - Last 24 Hours (Table) 07/23/17 07/23/17 07/23/17 Range/Units 10:00 10:00 21:37 RBC (3.80-5.40) m/uL Hgb (11.4-16.0) gm/dL Hct (34.0-46.0) % MCHC (31.0-37.0) g/dL RDW (11.5-15.5) % Neutrophils # (1.3-7.7) k/uL Lymphocytes # (1.0-4.8) k/uL Sodium 133 L (137-145) mmol/L Chloride 87 L (98-107) mmol/L BUN 47 H (7-17) mg/dL Creatinine 6.47 H* (0.52-1.04) mg/dL Glucose 432 H (74-99) mg/dL POC Glucose (mg/dL) 137 H (75-99) mg/dL Hemoglobin A1c 7.6 H (4.0-6.0) % Calcium 7.5 L (8.4-10.2) mg/dL AST 13 L (14-36) U/L Alkaline Phosphatase 139 H (38-126) U/L 07/24/17 07/24/17 07/24/17 Range/Units 07:11 07:44 07:44 RBC 3.46 L (3.80-5.40) m/uL Hgb 10.0 L (11.4-16.0) gm/dL Hct 32.2 L (34.0-46.0) % MCHC 30.9 L (31.0-37.0) g/dL RDW 16.5 H (11.5-15.5) % Neutrophils # 7.8 H (1.3-7.7) k/uL Lymphocytes # 0.5 L (1.0-4.8) k/uL Sodium 135 L (137-145) mmol/L Chloride 88 L (98-107) mmol/L BUN 52 H (7-17) mg/dL Creatinine 7.61 H* (0.52-1.04) mg/dL Glucose 104 H (74-99) mg/dL POC Glucose (mg/dL) 119 H (75-99) mg/dL Hemoglobin A1c (4.0-6.0) % Calcium 8.0 L (8.4-10.2) mg/dL AST (14-36) U/L Alkaline Phosphatase 129 H (38-126) U/L Assessment and Plan Plan: 1. Right foot Cellulitis after an animal bite (cat), domesticated 07/17/2017 with abscess formation second metatarsals, x-rays failed to reveal any osteomyelitis without any foreign body or subcutaneous emphysema, consult with Dr. Chin appreciated. Antibiotics changed to Ertapenem. Consult with Dr. Dennison for I&D changed to [facility]. 2. CAD: Post PCI with angioplasty and stent to stent placement or primary this year had been seeing cardiology Dr. DOLLY Jc regular basis . D she is to continue on double antiplatelet agents statins and beta blockers. 3 end-stage chronic kidney disease on hemodialysis 3 times a week consult nephrology continue dialysis as outpatient to resume treatment as scheduled Friday schedule. 4 type 2 diabetes on insulin pump: Continue insulin via pump continue Accu-Chek with sliding scales coverage as well. 5 hyperlipidemia: Continue Lipitor at 40 mg daily changes were made. 6 asthma/COPD: Continue Pulmicort along with DuoNeb 4 times a day. 7 hypothyroidism: Continue levothyroxine with 50 g daily. 8. Known history off anxiety and depression are stable on Lexapro and BuSpar along with Clonopin no changes were made 9 GERD/GI prophylaxis: Continue Pepcid 20 mg daily 10. Hypertensive cardiac vessel disease on amlodipine 10 mg daily Lasix 80 mg twice a day Imdur 30 mg daily 11 Chronic pain syndrome: Resume hydrocodone DVT prophylaxis Pepcid GI prophylaxis Discharge plan: Home with [facility] Impression and plan of care have been directed as dictated by the signing physician. Emely Contreras nurse practitioner acting as scribe for signing physician.
[2017-07-24] MEDS: INSULIN PUMP MEAL BOLUS 1 UNIT MISC MISCELLANE SCH ×3 (14:34→23:18)
--- NOTE | 2017-07-24 14:56 | CONS ---
CONSULTATION REASON FOR CONSULTATION: End-stage renal disease. HISTORY OF PRESENT ILLNESS: The patient is a 62-year-old female with end-stage renal disease, on hemodialysis on a Friday, Friday, and Friday schedule. The patient was admitted to the hospital with a history of a cat bite and increase in redness and pain in her right foot. Currently, patient is maintained on antibiotics. She states she is feeling slightly better. She did have fever at home. No nausea, vomiting, abdominal pain or diarrhea. PAST MEDICAL HISTORY: Coronary artery disease, end-stage renal disease, on hemodialysis, CKD mineral bone disorder, anemia of chronic disease, morbid obesity, hypothyroidism, hyperlipidemia, history of cardiac arrest and ischemic cardiomyopathy. History of MRSA infection. PAST SURGICAL HISTORY: Adenoidectomy, appendectomy, cholecystectomy, cardiac catheterization, hysterectomy, tonsillectomy, cataract surgery, laparoscopic cholecystectomy, left shoulder surgery, AV graft. SOCIAL HISTORY: Negative for smoking, drug abuse or alcohol abuse. MEDICATIONS: Medications at home include Pepcid, Lasix, Lexapro, aspirin, Ativan, Lipitor, Norvasc, Plavix, Lamictal, Imdur, Cipro. ALLERGIES: Include metformin, IV dye, penicillin. PHYSICAL EXAMINATION: Patient is comfortable, awake. She is alert and oriented x3. She is not in any distress. Blood pressure is 117/59, heart rate 69 per minute. She is afebrile. Examination of the heart: S1 and S2. Examination of the lungs: Bilateral breath sounds are heard. Abdomen is soft, nontender, obese. Examination of lower extremity shows right foot currently wrapped. No significant edema is noted. There is erythema seen on examination. 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 LABS SHOW: Sodium 135, potassium 3.8, hemoglobin 10.0. ASSESSMENT: 1. End-stage renal disease on hemodialysis on a Friday, Friday, Friday schedule. The patient missed her dialysis on Friday and we will dialyze today and then again in a.m. 2. Right foot cellulitis status post cat bite. Maintained on antibiotics, currently on ertapenem. 3. Hypertension. Continue current medications. 4. CKD mineral bone disorder. 5. Coronary artery disease. 6. History of cardiac arrest previously. 7. Ischemic cardiomyopathy. PLAN: Hemodialysis today as well as in a.m. and continue antibiotics and repeat electrolytes in a.m. Thank you for this consultation. Continue to follow the patient with you during hospitalization. MMMARQUES / ROBELN: [id number] /
[2017-07-24 17:40] LABS: Glucose,Whole Blood 235 mg/dL (75-99)
[2017-07-24 20:44] LABS: Glucose,Whole Blood 231 mg/dL (75-99)
[2017-07-24] MEDS: ATORVASTATIN 80 MG TAB PO SCH (22:52)
[2017-07-24] MEDS: ERTAPENEM 0.5 GM in SODIUM CHLORIDE 0.9% 50 ML IVPB SCH (22:53)
--- NOTE | 2017-07-25 00:51 | P.PN ---
Subjective Progress Note Date: 07/24/17 62-year-old female who suffers from superobesity, coronary artery disease, diabetes mellitus type 2 on insulin pump and chronic pain syndrome presents to Hospital after an injury to her right foot. The patient relates that she normally uses a power wheelchair. She does have a pet cat. Apparently the cat got out of her apartment and was going down the court or. She attempted to use a wheelchair to the cat off for many able to go down a different [place]. She went to reach for the cat and her breast. The control bar in the wheelchair jumped forward pinning the cat between the wall in the wheelchair. It was able to bite her foot multiple times before she was able to become cognizant enough to back the wheelchair off of the cat. Fortunately the cat was not seriously injured, and the patient relates a cat does have its vaccines. The patient was treated the outpatient setting and with her ALLERGIES are treated with ciprofloxacin and despite that he has had no improvement because it was admitted to hospital antibiotics with Rocephin and metronidazole were begun, she was seen by surgery without the need for surgical debridement at this time. However failing antibiotic therapy and constantly was admitted. The foot is painful swollen red and warm to touch. She believes she's had a low-grade fever but no chills or rigors. Her blood sugars have also been harder to control. 07/24/2017 improved today less pain and swelling but still on mS as needed. Objective - Vital Signs Vital signs: Vital Signs Temp 97.8 F 07/24/17 22:52 Pulse 64 07/24/17 22:52 Resp 18 07/24/17 22:52 BP 107/48 07/24/17 22:52 Pulse Ox 90 L 07/24/17 22:52 Intake & Output 07/24/17 07/24/17 07/25/17 06:59 18:59 06:59 Intake Total 450 Balance 450 Intake: Oral 450 Other: # Voids 0 1 - Exam 62-year-old woman with superobesity is somewhat uncomfortable HEENT: Anicteric conjunctiva are pink and moist nasal mucosa grossly intact without significant lesions, there is no thrush. Neck: The neck is supple without significant lymphadenopathy or thyromegaly. Lungs: Good bilateral air entry without significant crackles or wheezing. There is no significant bronchial sounds. There is no egophony or dullness. Heart: Regular rate and rhythm with an audible S1-S2, no S3 no S4. There is no significant murmur click or rub, PMI was nondisplaced. Abdomen: Obese Positive bowel sounds soft and nontender without palpable masses or organomegaly. There was no guarding or rebound. Extremities: The upper extremities have excellent pulses they are symmetric, no significant petechiae or telangiectasia. No splinter hemorrhages were noted. The bilateral lower extremities show evidence of the healing ecchymosis of the bilateral knees from her fall about a month ago. Does have evidence of some residual swelling and fluid to the right prepatellar area. He has not very tender to touch it is not warm at that site. The right foot however is very swollen compared to the left. There is the multiple healing bite swain without evidence of michael purulence. There is dense erythema it is quite warm and tender. There is not a significant amount of ascending lymphangitis. And there is no tender lymphadenopathy into the right groin. No other abnormal lymph nodes are noted either. Neuro: Awake alert oriented to person place and time. There are no acute new gross focal sensory motor deficits. - Labs CBC & Chem 7: 07/24/17 07:44 07/24/17 07:44 Labs: Abnormal Lab Results - Last 24 Hours (Table) 07/23/17 07/24/17 07/24/17 Range/Units 10:00 07:11 07:44 RBC 3.46 L (3.80-5.40) m/uL Hgb 10.0 L (11.4-16.0) gm/dL Hct 32.2 L (34.0-46.0) % MCHC 30.9 L (31.0-37.0) g/dL RDW 16.5 H (11.5-15.5) % Neutrophils # 7.8 H (1.3-7.7) k/uL Lymphocytes # 0.5 L (1.0-4.8) k/uL Sodium (137-145) mmol/L Chloride (98-107) mmol/L BUN (7-17) mg/dL Creatinine (0.52-1.04) mg/dL Glucose (74-99) mg/dL POC Glucose (mg/dL) 119 H (75-99) mg/dL Hemoglobin A1c 7.6 H (4.0-6.0) % Calcium (8.4-10.2) mg/dL Alkaline Phosphatase (38-126) U/L 07/24/17 07/24/17 07/24/17 Range/Units 07:44 17:14 20:42 RBC (3.80-5.40) m/uL Hgb (11.4-16.0) gm/dL Hct (34.0-46.0) % MCHC (31.0-37.0) g/dL RDW (11.5-15.5) % Neutrophils # (1.3-7.7) k/uL Lymphocytes # (1.0-4.8) k/uL Sodium 135 L (137-145) mmol/L Chloride 88 L (98-107) mmol/L BUN 52 H (7-17) mg/dL Creatinine 7.61 H* (0.52-1.04) mg/dL Glucose 104 H (74-99) mg/dL POC Glucose (mg/dL) 235 H 231 H (75-99) mg/dL Hemoglobin A1c (4.0-6.0) % Calcium 8.0 L (8.4-10.2) mg/dL Alkaline Phosphatase 129 H (38-126) U/L Microbiology - Last 24 Hours (Table) 07/23/17 10:00 Blood Culture - Preliminary Blood No Growth after 24 hours Laboratory Results WBC 9.3 k/uL (3.8-10.6) 07/24/17 07:44 RBC 3.46 m/uL (3.80-5.40) L 07/24/17 07:44 Hgb 10.0 gm/dL (11.4-16.0) L 07/24/17 07:44 Hct 32.2 % (34.0-46.0) L 07/24/17 07:44 MCV 93.1 fL (80.0-100.0) 07/24/17 07:44 MCH 28.8 pg (25.0-35.0) 07/24/17 07:44 MCHC 30.9 g/dL (31.0-37.0) L 07/24/17 07:44 RDW 16.5 % (11.5-15.5) H 07/24/17 07:44 Plt Count 361 k/uL (150-450) 07/24/17 07:44 Neutrophils % 84 % 07/24/17 07:44 Lymphocytes % 6 % 07/24/17 07:44 Monocytes % 7 % 07/24/17 07:44 Eosinophils % 2 % 07/24/17 07:44 Basophils % 0 % 07/24/17 07:44 Neutrophils # 7.8 k/uL (1.3-7.7) H 07/24/17 07:44 Lymphocytes # 0.5 k/uL (1.0-4.8) L 07/24/17 07:44 Monocytes # 0.6 k/uL (0-1.0) 07/24/17 07:44 Eosinophils # 0.2 k/uL (0-0.7) 07/24/17 07:44 Basophils # 0.0 k/uL (0-0.2) 07/24/17 07:44 Hypochromasia Moderate 07/24/17 07:44 Anisocytosis Slight 07/24/17 07:44 Sodium 135 mmol/L (137-145) L 07/24/17 07:44 Potassium 3.8 mmol/L (3.5-5.1) 07/24/17 07:44 Chloride 88 mmol/L (98-107) L 07/24/17 07:44 Carbon Dioxide 23 mmol/L (22-30) 07/24/17 07:44 Anion Gap 24 mmol/L 07/24/17 07:44 BUN 52 mg/dL (7-17) H 07/24/17 07:44 Creatinine 7.61 mg/dL (0.52-1.04) H* 07/24/17 07:44 Est GFR (CKD-EPI)AfAm 6 (>60 ml/min/1.73 sqM) 07/24/17 07:44 Est GFR (CKD-EPI)NonAf 5 (>60 ml/min/1.73 sqM) 07/24/17 07:44 Glucose 104 mg/dL (74-99) H 07/24/17 07:44 POC Glucose (mg/dL) 231 mg/dL (75-99) H 07/24/17 20:42 POC Glu Breaker Mechanic ID Gina Aguilar 07/24/17 20:[address] Glu mg/dL 171 07/23/17 10:00 Hemoglobin A1c 7.6 % (4.0-6.0) H 07/23/17 10:00 Calcium 8.0 mg/dL (8.4-10.2) L 07/24/17 07:44 Total Bilirubin 0.6 mg/dL (0.2-1.3) 07/24/17 07:44 AST 14 U/L (14-36) 07/24/17 07:44 ALT 13 U/L (9-52) 07/24/17 07:44 Alkaline Phosphatase 129 U/L (38-126) H 07/24/17 07:44 Total Protein 6.7 g/dL (6.3-8.2) 07/24/17 07:44 Albumin 3.8 g/dL (3.5-5.0) 07/24/17 07:44 Microbiology 07/23/17 10:00 Blood Blood Culture - Preliminary No Growth after 24 hours Assessment and Plan (1) Cat bite Narrative/Plan: 62-year-old male presents to Hospital several days after cat bite. It is noted the bite was provoked resulting in the significant cellulitis to her right foot from the multiple bites. The and was up-to-date on his vaccines. The patient received her Tdap at admit. She is evidence of the ongoing cellulitis to the foot is very painful. There is no evidence of significant fluctuance and no significant abscess at this time on the foot that can be drained. Patient is feeling antibiotic therapy and with her history of prior pathogens and the history of resistant Enterobacter we'll alter from Rocephin and metronidazole to ertapenem which should give us coverage for the usual pathogens of the Mouth as well as the potential resistant Enterobacter that she is colonized with. Silvadene wrap will be applied. Elevating the foot while she is at rest is important. Controlling her blood sugars will also be helpful in this healing process. Making sure she has adequate protein intake is also helpful. 07/24/2017 is improving but not resolved photographer still with current theapy improved erythema, continue invanz for the treatment, has allowed improvement without complications Current Visit: Yes Status: Acute Code(s): W55.01XA - BITTEN BY CAT, INITIAL ENCOUNTER SNOMED Code(s): 900485790 (2) Failure of outpatient treatment Current Visit: Yes Status: Acute Code(s): Z78.9 - OTHER SPECIFIED HEALTH STATUS SNOMED Code(s): 747045398 (3) Poorly controlled type 2 diabetes mellitus Current Visit: Yes Status: Acute Code(s): E11.65 - TYPE 2 DIABETES MELLITUS WITH HYPERGLYCEMIA SNOMED Code(s): 85300494 (4) Obesity Current Visit: No Status: Acute Code(s): E66.9 - OBESITY, UNSPECIFIED SNOMED Code(s): 562047600
[2017-07-25 03:01] LABS: Glucose,Whole Blood 120 mg/dL (75-99)
[2017-07-25] MEDS: HYDROcodone/APAP 5-325MG 1 EACH TAB PO PRN ×2 (03:05→11:17)
[2017-07-25 07:08] LABS: Glucose,Whole Blood 102 mg/dL (75-99)
[2017-07-25] MEDS: amLODIPine 10 MG TAB PO SCH (08:43)
[2017-07-25] MEDS: ISOSORBIDE MONONITRATE ER 30 MG TAB.ER.24H PO SCH (08:44)
[2017-07-25] MEDS: ASPIRIN 81 MG PO SCH (08:45)
[2017-07-25] MEDS: HEPARIN SODIUM,PORCINE 5,000 UNIT/ML 1 ML VIAL SQ SCH ×2 (08:45→21:13)
[2017-07-25] MEDS: lamoTRIgine 100 MG TAB PO SCH ×2 (08:45→21:14)
[2017-07-25] MEDS: FAMOTIDINE 20 MG TAB PO SCH (08:45)
[2017-07-25] MEDS: SILVER sulfADIAZINE Cream 400 GM 1 APPLIC APPLIC TOPICAL SCH ×2 (08:46→21:14)
[2017-07-25] MEDS: busPIRone HCl 5 MG TAB PO SCH ×2 (08:46→21:11)
[2017-07-25] MEDS: FUROSEMIDE 80 MG TAB PO SCH ×2 (08:46→21:12)
[2017-07-25] MEDS: ESCITALOPRAM 20 MG TAB PO SCH (08:46)
[2017-07-25] MEDS: INSULIN PUMP MEAL BOLUS 1 UNIT MISC MISCELLANE SCH ×3 (08:47→18:56)
[2017-07-25] MEDS: LORazepam 1 MG TAB PO SCH ×2 (08:54→21:13)
[2017-07-25] MEDS: MORPHINE ORAL SOLN 10 MG/5 ML CUP PO PRN ×3 (08:54→21:40)
--- NOTE | 2017-07-25 08:59 | P.CNOR ---
History of Present Illness - [facility] Consult date: 07/25/17 Consult reason: other (Cat bite right foot) History of present illness: The patient is a 62-year-old female with a history of morbid obesity, coronary artery disease, diabetes, and chronic kidney disease with dialysis, who presented to the hospital 2 days ago with fever and chills after sustaining a cat bite last week. She states that she pinned her domesticated cat against the wall with her motorized wheelchair on accident and the cat bit her multiple times. She noticed the day after the cat bites she developed increased redness and swelling to the foot. She was started on oral antibiotics on an outpatient basis but the condition continued to worsen. The patient did have a low-grade fever and she states that "she felt punky". She was admitted to the hospital for IV antibiotics and infectious disease consultation. We were consulted for possible surgical intervention. Today, the patient states that she is feeling better. The redness and swelling has improved slightly since admission. She currently has Silvadene cream to the right foot. She is currently on Invanz per Dr. Chin. Review of Systems Constitutional: Reports chills, Reports fever, Reports malaise Cardiovascular: Denies chest pain, Denies shortness of breath Gastrointestinal: Denies diarrhea, Denies nausea, Denies vomiting Musculoskeletal: right: foot pain, foot stiffness, foot swelling Past Medical History Past Medical History: Coronary Artery Disease (CAD), Diabetes Mellitus, Dialysis , Hyperlipidemia, Hypertension, Myocardial Infarction ([place]), Osteoarthritis (OA) , Thyroid Disorder Additional Past Medical History / Comment(s): per past medical charting pt's stated "pt has had 17 mi's". ischemic cardiomyopathy. [place] in 2005 and September 2013, 12/29/15 STRESS WNL, Hepatitis A, ALLERGIC rhinitis,[place],ESRD/DIALYSIS- ON -, CARDIO-PULMONARY ARREST 07/05/14 and pt stated she has had short term memory problems since, hypertensive nephrosclerosis, Hepatitis A,Vitamin D deficiency, constipation.dm- uses an insulin pump.[place]X [place] Last Myocardial Infarction Date:: 09/2013 History of Any Multi-Drug Resistant Organisms: MRSA Year Discovered:: 2011 MDRO Source:: blood Past Surgical History: Adenoidectomy, Appendectomy, Cholecystectomy, Heart Catheterization With Stent, Hysterectomy, Tonsillectomy Additional Past Surgical History / Comment(s): mary cataracts, LAP-BAND 2004, Laparoscopic cholecystectomy, FIBULA FX has metal pins in place,Left shoulder surgery, Hemodialysis Cataract bilateral with IOL, fistula and sx to" reroute it ",gets dialysis fri-fri-fri. has insulin pump. no bp on left Past Anesthesia/Blood Transfusion Reactions: Motion Sickness, Postoperative Nausea & Vomiting (PONV) Date of Last Stent Placement:: 2014 Past Psychological History: Anxiety, Bipolar, Depression Additional Psychological History / Comment(s): [place] IS [place]ING IN [place]-=HAS-uses a walker in house and MoTORIZED w/c outdoors. does'nt drive anymore but has a license.HAS GLUCOMETER AND INSULIN PUMP. Lifelong nonsmoker. Denies alcohol use no experience. No international travel. Only one pet cat Smoking Status: Never smoker Past Alcohol Use History: None Reported Past Drug Use History: None Reported - Past Family History Mother Family Medical History: Congestive Heart Failure (CHF), Diabetes Mellitus, Hypertension Father History Unknown: Yes Family Medical History: Diabetes Mellitus Brother(s) Family Medical History: Diabetes Mellitus, Hyperlipidemia Additional Family Medical History / Comment(s): Hypertension chronic kidney disease Medications and Allergies Home Medications Medication Instructions Recorded Confirmed Type Famotidine [Pepcid] 20 mg PO DAILY 04/29/14 07/23/17 History Furosemide [Lasix] 80 mg PO BID 08/04/14 07/23/17 History Aspirin EC [Ecotrin Low Dose] 81 mg PO DAILY 01/01/16 07/23/17 History Escitalopram [Lexapro] 20 mg PO DAILY 01/01/16 07/23/17 History Insulin Aspart (For Pump) [NovoLOG See Protocol SQ-PUMP CONTINUOUS 01/01/1612/02 History (For Pump)] busPIRone HCL 15 mg PO BID 01/01/16 07/23/17 History LORazepam [Ativan] 1 mg PO BID 07/14/16 07/23/17 History Atorvastatin [Lipitor] 80 mg PO HS 12/27/16 07/23/17 History amLODIPine [Norvasc] 10 mg PO DAILY 12/27/16 07/23/17 History Clopidogrel [Plavix] 75 mg PO Q48H 03/21/17 07/23/17 History Isosorbide Mononitrate ER [Imdur] 30 mg PO DAILY 03/21/17 07/23/17 History lamoTRIgine [LaMICtal] 100 mg PO DAILY 07/01/17 07/23/17 History lamoTRIgine [LaMICtal] 150 mg PO HS 07/01/17 07/23/17 History Ciprofloxacin HCl [Cipro] 500 mg PO Q12HR 07/23/17 07/23/17 History Allergies Allergy/AdvReac Type Severity Reaction Status Date / Time adhesive Allergy Rash/Hives Verified 07/23/17 09:34 Iodinated Contrast- Oral and Allergy KIDNEY Verified 07/23/17 09:34 IV Dye FAILURE metformin Allergy SUGAR Verified 07/23/17 09:34 LEVEL INCREASE Penicillins Allergy Rash/Hives Verified 07/23/17 09:34 Physical Examination The patient is a 62-year-old female who is in no acute distress. She is alert and oriented 3. Exam of the right lower extremity reveals diffuse swelling and erythema to the dorsal foot. The foot was marked by nursing staff on 2017, the redness has receded in comparison to the marked area. There are multiple puncture wounds to the dorsal foot. Minimal purulent drainage from puncture sites. No fluctuance or abscess is seen. She is able to wiggle her toes but range of motion of the foot and ankle are limited due to pain and guarding. Her calf is soft and nontender. Her right knee is nontender to palpation. Neurological and circulatory status is intact. Results - Labs Labs: Abnormal Lab Results - Last 24 Hours (Table) 07/24/17 07/24/17 07/24/17 Range/Units 07:44 17:14 20:42 Sodium 135 L (137-145) mmol/L Chloride 88 L (98-107) mmol/L BUN 52 H (7-17) mg/dL Creatinine 7.61 H* (0.52-1.04) mg/dL Glucose 104 H (74-99) mg/dL POC Glucose (mg/dL) 235 H 231 H (75-99) mg/dL Calcium 8.0 L (8.4-10.2) mg/dL Alkaline Phosphatase 129 H (38-126) U/L 07/25/17 07/25/17 Range/Units 02:58 07:03 Sodium (137-145) mmol/L Chloride (98-107) mmol/L BUN (7-17) mg/dL Creatinine (0.52-1.04) mg/dL Glucose (74-99) mg/dL POC Glucose (mg/dL) 120 H 102 H (75-99) mg/dL Calcium (8.4-10.2) mg/dL Alkaline Phosphatase (38-126) U/L Microbiology - Last 24 Hours (Table) 07/23/17 10:00 Blood Culture - Preliminary Blood No Growth after 24 hours H & H 07/23/17 07/24/17 Range/Units 10:00 07:44 Hgb 10.3 L 10.0 L (11.4-16.0) gm/dL Hct 33.0 L 32.2 L (34.0-46.0) % Result Diagrams: 07/25/17 09:23 07/25/17 09:23 - Diagnostic results Ankle/Foot x-ray: image reviewed (Diffuse soft tissue swelling evident. No fractures or signs of osteomyelitis present.) Assessment and Plan (1) Cellulitis of foot, right Current Visit: Yes Status: Acute Code(s): L03.115 - CELLULITIS OF RIGHT LOWER LIMB SNOMED Code(s): 478367175 (2) Cat bite Current Visit: Yes Status: Acute Code(s): W55.01XA - BITTEN BY CAT, INITIAL ENCOUNTER SNOMED Code(s): 061120065 (3) Failure of outpatient treatment Current Visit: Yes Status: Acute Code(s): Z78.9 - OTHER SPECIFIED HEALTH STATUS SNOMED Code(s): 828126655 (4) Poorly controlled type 2 diabetes mellitus Current Visit: Yes Status: Acute Code(s): E11.65 - TYPE 2 DIABETES MELLITUS WITH HYPERGLYCEMIA SNOMED Code(s): 89115972 Plan: The clinical and x-ray findings were discussed with the patient. The case was discussed with Dr. Mendoza. Continue IV antibiotics per infectious disease. Continue Silvadene cream and dressing changes per infectious disease. No surgical intervention is warranted at this time. The patient continues to improve on IV antibiotics. We'll continue to follow patient closely and make further recommendations as needed.
[2017-07-25 09:42] LABS: Anisocytosis Slight; Basophils % (A) 0 %; Eosinophils # (A) 0.2 k/uL (0-0.7); Eosinophils % (A) 3 %; HCT 29.3 % (34.0-46.0); HGB 9.3 gm/dL (11.4-16.0); Hypochromasia Slight; Lymphocytes # (A) 0.6 k/uL (1.0-4.8); Lymphocytes % (A) 8 %; MCH 28.6 pg (25.0-35.0); MCHC 31.8 g/dL (31.0-37.0); MCV 90.1 fL (80.0-100.0); Monocytes # (A) 0.4 k/uL (0-1.0); Monocytes % (A) 6 %; Neutrophils # (A) 5.7 k/uL (1.3-7.7); Neutrophils % (A) 81 %; Platelet Count 322 k/uL (150-450); RBC 3.25 m/uL (3.80-5.40); RDW 16.4 % (11.5-15.5)
[2017-07-25 09:58] LABS: Albumin 3.3 g/dL (3.5-5.0); Calcium 7.6 mg/dL (8.4-10.2); Potassium 3.6 mmol/L (3.5-5.1); Total Bilirubin 0.5 mg/dL (0.2-1.3); Total Protein 6.1 g/dL (6.3-8.2)
[2017-07-25 12:22] LABS: Glucose,Whole Blood 72 mg/dL (75-99)
[2017-07-25] MEDS ORDERED: DARBEPOETIN ALFA 40 MCG/0.4 ML SYRINGE SQ SCH (13:00)
--- NOTE | 2017-07-25 13:03 | PN ---
PROGRESS NOTE Patient is seen for followup for end-stage renal disease. She was admitted to the hospital with the right foot cellulitis after cat bite. She is maintained on IV antibiotics. Patient had missed her hemodialysis treatment yesterday. She is scheduled for hemodialysis again today. PHYSICAL EXAMINATION: Blood pressure was 142/60, heart rate 66 per minute. Patient is afebrile. Examination of the heart, S1, S2. Examination of the lungs, bilateral breath sounds are heard. Abdomen is soft, nontender. Examination of the lower extremities shows right foot is currently wrapped. No edema is noted. LABS: Show sodium 137, potassium 3.6, hemoglobin 9.3 g/dL. ASSESSMENT: 1. End-stage renal disease, on hemodialysis on a Friday, Friday, Friday schedule. 2. Right foot cellulitis, status post cat bite, maintained on antibiotics. 3. Coronary artery disease. 4. Ischemic cardiomyopathy. 5. History of cardiac arrest. 6. Anemia of chronic disease. 7. Chronic kidney disease mineral bone disorder. 8. Hypertension currently controlled. PLAN: Hemodialysis today. Add Aranesp for anemia. Continue antibiotics. MMODL / IJN: [id number] /
--- NOTE | 2017-07-25 14:27 | P.PN ---
Subjective Progress Note Date: 07/25/17 The patient is a pleasant 62-year-old female patient who sees Dr. Gar and Dr. JAE Talley as an outpatient with a past medical history significant for coronary artery disease and prior coronary artery stenting with the patient underwent stenting of the proximal left anterior descending artery as well as ramus intermedius in April 2014, diabetes type 2, end stage renal disease on hemodialysis Friday, as well as dyslipidemia She presented to the emergency room secondary Bite that happened 07/17/2017, currently the her domesticated cat was trying to get out of her apartment and went into another hallway and as the patient was trying to leave her home she tried collecting the And rushed into the hallway at the end of it, her chest wall brushed the[employer] wheelchair navigation stick propelling the forward to full speed Trapping the cat Into the wall crushing it . the cat Started biting the patient's right foot approximately 8-9 times and was subsequently red inflamed swollen painful. She was started antibiotic when seen in the ER the next day, for which she filled the prescription 4 days prior to admission. The patient was subsequently seen by Dr. Goel in the office 3 days ago for another antibiotic however the antibiotics to expensive for her to get, and when she woke up this morning, the foot was significantly red swollen and very painful blistery, now it has redness involving the dorsum off the right foot metatarsal region, affecting the first toe, and below the ankles both medical lateral. There is no ulcers or open wound, however there are puncture swain noted, between the first and second metatarsal region approximately 3 cm patient was subsequently admitted for cellulitis of the foot with abscess formation, x-rays were done, TD vaccination the ER, and was admitted because of Dr. Chin. Patient was started on Rocephin patient has penicillin ALLERGY 07/24: Patient has been seen by Dr. Chin with recommendations to change antibiotics to ertapenem and Silvadene wrap to the right foot. Patient's white count is normal, she has been afebrile. Dr. Dennison consult changed to [facility]. Edema and redness to the right foot is improved from yesterday. Blood sugars are running 75-119. BUN is 52 and creatinine 7.61. Patient is followed by Dr. Talley for hemodialysis. HD for today as she missed a treatment and then resume usual schedule for tomorrow. 07/25: Patient has been seen by orthopedics with no plan for surgical intervention at this time and continue Silvadene cream and IV antibiotics. Patient is continued on ertapenem per Dr. Chin. Hemodialysis today and patient will resume her normal schedule as an outpatient on Friday. Patient continues to have tenderness although wound area is improved. Anticipate discharge home tomorrow.. Objective - Vital Signs Vital signs: Vital Signs Temp 97.4 F L 07/25/17 06:10 Pulse 66 07/25/17 06:10 Resp 18 07/25/17 06:10 BP 142/60 07/25/17 06:10 Pulse Ox 91 L 07/25/17 06:10 Intake & Output 07/24/17 07/25/17 07/25/17 18:59 06:59 18:59 Other: # Voids 1 0 # Bowel Movements 0 - Exam General appearance: cooperative, no acute distress, obese - EENT Eyes: anicteric sclerae, EOMI, PERRLA, normal appearance ENT: NA/AT, normal oropharynx - Neck Neck: no lymphadenopathy, normal ROM, no other, no rigidity, no stridor, no thyromegaly - Respiratory Respiratory: bilateral: CTA, negative: diminished, dullness, rales, rhonchi, wheezing, prolonged expiration - Cardiovascular Rhythm: regular Heart sounds: normal: S1, S2 Abnormal Heart Sounds: no systolic murmur, no diastolic murmur, no rub, no S3 Gallop, no S4 Gallop, no click, no other - Gastrointestinal General gastrointestinal: normal bowel sounds, soft - Integumentary Integumentary: cellulitis (Right dorsum flexural surface, involving the entire dorsum of the foot and the first toe base, and below the ankles is fluctuant 3 centimeter between the first and second metatarsal measuring 3 cm), decreased turgor, normal - Neurologic Neurologic: CNII-XII intact - Musculoskeletal Musculoskeletal: gait normal, strength equal bilaterally - Psychiatric Psychiatric: A&O x's 3, appropriate affect, intact judgment & insight - Labs CBC & Chem 7: 07/25/17 09:23 07/25/17 09:23 Labs: Abnormal Lab Results - Last 24 Hours (Table) 07/24/17 07/24/17 07/25/17 Range/Units 17:14 20:42 02:58 RBC (3.80-5.40) m/uL Hgb (11.4-16.0) gm/dL Hct (34.0-46.0) % RDW (11.5-15.5) % Lymphocytes # (1.0-4.8) k/uL Chloride (98-107) mmol/L BUN (7-17) mg/dL Creatinine (0.52-1.04) mg/dL Glucose (74-99) mg/dL POC Glucose (mg/dL) 235 H 231 H 120 H (75-99) mg/dL Calcium (8.4-10.2) mg/dL AST (14-36) U/L Total Protein (6.3-8.2) g/dL Albumin (3.5-5.0) g/dL 07/25/17 07/25/17 07/25/17 Range/Units 07:03 09:23 09:23 RBC 3.25 L (3.80-5.40) m/uL Hgb 9.3 L (11.4-16.0) gm/dL Hct 29.3 L (34.0-46.0) % RDW 16.4 H (11.5-15.5) % Lymphocytes # 0.6 L (1.0-4.8) k/uL Chloride 94 L (98-107) mmol/L BUN 27 H (7-17) mg/dL Creatinine 4.50 H (0.52-1.04) mg/dL Glucose 104 H (74-99) mg/dL POC Glucose (mg/dL) 102 H (75-99) mg/dL Calcium 7.6 L (8.4-10.2) mg/dL AST 13 L (14-36) U/L Total Protein 6.1 L (6.3-8.2) g/dL Albumin 3.3 L (3.5-5.0) g/dL Microbiology - Last 24 Hours (Table) 07/23/17 10:00 Blood Culture - Preliminary Blood No Growth after 24 hours Assessment and Plan Plan: 1. Right foot Cellulitis after an animal bite (cat), domesticated 07/17/2017 with abscess formation second metatarsals, x-rays failed to reveal any osteomyelitis without any foreign body or subcutaneous emphysema, consult with Dr. Chin appreciated. Antibiotics changed to Ertapenem. Consult with Dr. Dennison for I&D changed to [facility]. No surgical intervention planned. Dr. Chin will address home antibiotics. 2. CAD: Post PCI with angioplasty and stent to stent placement or primary this year had been seeing cardiology Dr. DOLLY Jc regular basis . D she is to continue on double antiplatelet agents statins and beta blockers. 3 end-stage chronic kidney disease on hemodialysis 3 times a week consult nephrology continue dialysis as outpatient to resume treatment as scheduled Friday schedule. 4 type 2 diabetes on insulin pump: Continue insulin via pump continue Accu-Chek with sliding scales coverage as well. 5 hyperlipidemia: Continue Lipitor at 40 mg daily changes were made. 6 asthma/COPD: Continue Pulmicort along with DuoNeb 4 times a day. 7 hypothyroidism: Continue levothyroxine with 50 g daily. 8. Known history off anxiety and depression are stable on Lexapro and BuSpar along with Clonopin no changes were made 9 GERD/GI prophylaxis: Continue Pepcid 20 mg daily 10. Hypertensive cardiac vessel disease on amlodipine 10 mg daily Lasix 80 mg twice a day Imdur 30 mg daily 11 Chronic pain syndrome: Resume hydrocodone DVT prophylaxis Pepcid GI prophylaxis Discharge plan: Home with [facility] on Friday Impression and plan of care have been directed as dictated by the signing physician. Emely Contreras nurse practitioner acting as scribe for signing physician.
[2017-07-25] MEDS: CLOPIDOGREL 75 MG TAB PO SCH (15:22)
--- NOTE | 2017-07-25 15:45 | P.PN ---
Subjective Progress Note Date: 07/25/17 62-year-old female who suffers from superobesity, coronary artery disease, diabetes mellitus type 2 on insulin pump and chronic pain syndrome presents to Hospital after an injury to her right foot. The patient relates that she normally uses a power wheelchair. She does have a pet cat. Apparently the cat got out of her apartment and was going down the court or. She attempted to use a wheelchair to the cat off for many able to go down a different [place]. She went to reach for the cat and her breast. The control bar in the wheelchair jumped forward pinning the cat between the wall in the wheelchair. It was able to bite her foot multiple times before she was able to become cognizant enough to back the wheelchair off of the cat. Fortunately the cat was not seriously injured, and the patient relates a cat does have its vaccines. The patient was treated the outpatient setting and with her ALLERGIES are treated with ciprofloxacin and despite that he has had no improvement because it was admitted to hospital antibiotics with Rocephin and metronidazole were begun, she was seen by surgery without the need for surgical debridement at this time. However failing antibiotic therapy and constantly was admitted. The foot is painful swollen red and warm to touch. She believes she's had a low-grade fever but no chills or rigors. Her blood sugars have also been harder to control. 07/24/2017 improved today less pain and swelling but still on mS as needed. 07/25/2017 patient is improved today. The foot has shown improved swelling is improved having no difficulty with antibiotic therapy for the cat bite to the right foot. Objective - Vital Signs Vital signs: Vital Signs Temp 98.7 F 07/25/17 13:52 Pulse 72 07/25/17 13:52 Resp 16 07/25/17 13:52 BP 128/61 07/25/17 13:52 Pulse Ox 90 L 07/25/17 13:52 Intake & Output 07/24/17 07/25/17 07/25/17 18:59 06:59 18:59 Other: # Voids 1 0 0 # Bowel Movements 0 - Exam 62-year-old woman with superobesity is somewhat uncomfortable HEENT: Anicteric conjunctiva are pink and moist nasal mucosa grossly intact without significant lesions, there is no thrush. Neck: The neck is supple without significant lymphadenopathy or thyromegaly. Lungs: Good bilateral air entry without significant crackles or wheezing. There is no significant bronchial sounds. There is no egophony or dullness. Heart: Regular rate and rhythm with an audible S1-S2, no S3 no S4. There is no significant murmur click or rub, PMI was nondisplaced. Abdomen: Obese Positive bowel sounds soft and nontender without palpable masses or organomegaly. There was no guarding or rebound. Extremities: The upper extremities have excellent pulses they are symmetric, no significant petechiae or telangiectasia. No splinter hemorrhages were noted. The bilateral lower extremities show evidence of the healing ecchymosis of the bilateral knees from her fall about a month ago. Does have evidence of some residual swelling and fluid to the right prepatellar area. He has not very tender to touch it is not warm at that site. The right foot however is very swollen compared to the left. There is the multiple healing bite swain without evidence of drainage, the dense erythema has has markedly improved. The swelling is also markedly improved. There is no evidence of abscess. There is not a significant amount of ascending lymphangitis. And there is no tender lymphadenopathy into the right groin. No other abnormal lymph nodes are noted either. Neuro: Awake alert oriented to person place and time. There are no acute new gross focal sensory motor deficits. - Labs CBC & Chem 7: 07/25/17 09:23 07/25/17 09:23 Labs: Abnormal Lab Results - Last 24 Hours (Table) 07/24/17 07/24/17 07/25/17 Range/Units 17:14 20:42 02:58 RBC (3.80-5.40) m/uL Hgb (11.4-16.0) gm/dL Hct (34.0-46.0) % RDW (11.5-15.5) % Lymphocytes # (1.0-4.8) k/uL Chloride (98-107) mmol/L BUN (7-17) mg/dL Creatinine (0.52-1.04) mg/dL Glucose (74-99) mg/dL POC Glucose (mg/dL) 235 H 231 H 120 H (75-99) mg/dL Calcium (8.4-10.2) mg/dL AST (14-36) U/L Total Protein (6.3-8.2) g/dL Albumin (3.5-5.0) g/dL 07/25/17 07/25/17 07/25/17 Range/Units 07:03 09:23 09:23 RBC 3.25 L (3.80-5.40) m/uL Hgb 9.3 L (11.4-16.0) gm/dL Hct 29.3 L (34.0-46.0) % RDW 16.4 H (11.5-15.5) % Lymphocytes # 0.6 L (1.0-4.8) k/uL Chloride 94 L (98-107) mmol/L BUN 27 H (7-17) mg/dL Creatinine 4.50 H (0.52-1.04) mg/dL Glucose 104 H (74-99) mg/dL POC Glucose (mg/dL) 102 H (75-99) mg/dL Calcium 7.6 L (8.4-10.2) mg/dL AST 13 L (14-36) U/L Total Protein 6.1 L (6.3-8.2) g/dL Albumin 3.3 L (3.5-5.0) g/dL 07/25/17 Range/Units 12:16 RBC (3.80-5.40) m/uL Hgb (11.4-16.0) gm/dL Hct (34.0-46.0) % RDW (11.5-15.5) % Lymphocytes # (1.0-4.8) k/uL Chloride (98-107) mmol/L BUN (7-17) mg/dL Creatinine (0.52-1.04) mg/dL Glucose (74-99) mg/dL POC Glucose (mg/dL) 72 L (75-99) mg/dL Calcium (8.4-10.2) mg/dL AST (14-36) U/L Total Protein (6.3-8.2) g/dL Albumin (3.5-5.0) g/dL Microbiology - Last 24 Hours (Table) 07/23/17 10:00 Blood Culture - Preliminary Blood No Growth after 48 hours Laboratory Results WBC 7.0 k/uL (3.8-10.6) 07/25/17 09:23 RBC 3.25 m/uL (3.80-5.40) L 07/25/17 09: Hgb 9.3 gm/dL (11.4-16.0) L 07/25/17: Hct 29.3 % (34.0-46.0) L 07/25/17: MCV 90.1 fL (80.0-100.0) 07/25/17: MCH 28.6 pg (25.0-35.0) 07/25/17: MCHC 31.8 g/dL (31.0-37.0) 07/25/17: RDW 16.4 % (11.5-15.5) H 07/25/17: Plt Count 322 k/uL (150-450) 07/25/17 09: Neutrophils % 81 % 07/25/17: Lymphocytes % 8 % 07/25/17 09: Monocytes % 6 % 07/25/17 09: Eosinophils % 3 % 07/25/17: Basophils % 0 % 07/25/17: Neutrophils # 5.7 k/uL (1.3-7.7) 07/25/17 09: Lymphocytes # 0.6 k/uL (1.0-4.8) L 07/25/17: Monocytes # 0.4 k/uL (0-1.0) 07/25/17: Eosinophils # 0.2 k/uL (0-0.7) 07/25/17: Basophils # 0.0 k/uL (0-0.2) 07/25/17: Hypochromasia Slight 07/25/17 09: Anisocytosis Slight 07/25/17 09: Sodium 137 mmol/L (137-145) 07/25/17 09: Potassium 3.6 mmol/L (3.5-5.1) 07/25/17: Chloride 94 mmol/L (98-107) L 07/25/17: Carbon Dioxide 28 mmol/L (22-30) 07/25/17 09: Anion Gap 15 mmol/L 07/25/17 09: BUN 27 mg/dL (7-17) H 07/25/17 09:23 Creatinine 4.50 mg/dL (0.52-1.04) H 07/25/17 09:23 Est GFR (CKD-EPI)AfAm 11 (>60 ml/min/1.73 sqM) 07/25/17 09:23 Est GFR (CKD-EPI)NonAf 10 (>60 ml/min/1.73 sqM) 07/25/17 09:23 Glucose 104 mg/dL (74-99) H 07/25/17 09:23 POC Glucose (mg/dL) 72 mg/dL (75-99) L 07/25/17 12:16 POC Glu Credit Risk Review Officer ID Deb Rush 07/25/17 12:[address] Glu mg/dL 171 07/23/17 10:00 Hemoglobin A1c 7.6 % (4.0-6.0) H 07/23/17 10:00 Calcium 7.6 mg/dL (8.4-10.2) L 07/25/17 09:23 Total Bilirubin 0.5 mg/dL (0.2-1.3) 07/25/17 09:23 AST 13 U/L (14-36) L 07/25/17 09:23 ALT 11 U/L (9-52) 07/25/17 09:23 Alkaline Phosphatase 111 U/L (38-126) 07/25/17 09:23 Total Protein 6.1 g/dL (6.3-8.2) L 07/25/17 09:23 Albumin 3.3 g/dL (3.5-5.0) L 07/25/17 09:23 Microbiology 07/23/17 10:00 Blood Blood Culture - Preliminary No Growth after 48 hours Assessment and Plan (1) Cat bite Narrative/Plan: 62-year-old male presents to Hospital several days after cat bite. It is noted the bite was provoked resulting in the significant cellulitis to her right foot from the multiple bites. The and was up-to-date on his vaccines. The patient received her Tdap at admit. She is evidence of the ongoing cellulitis to the foot is very painful. There is no evidence of significant fluctuance and no significant abscess at this time on the foot that can be drained. Patient is feeling antibiotic therapy and with her history of prior pathogens and the history of resistant Enterobacter we'll alter from [place] and metronidazole to ertapenem which should give us coverage for the usual pathogens of the Mouth as well as the potential resistant Enterobacter that she is colonized with. Silvadene wrap will be applied. Elevating the foot while she is at rest is important. Controlling her blood sugars will also be helpful in this healing process. Making sure she has adequate protein intake is also helpful. 07/24/2017 is improving but not resolved diver tender with current theapy improved erythema, continue invanz for the treatment, has allowed improvement without complications 07/25/2017 the patient is now had further significant improvement of the swelling and erythema to the foot. is ready for discharge to home on oral antibiotics with cefuroxime. Current Visit: Yes Status: Acute Code(s): W55.01XA - BITTEN BY CAT, INITIAL ENCOUNTER SNOMED Code(s): 377296760 (2) Failure of outpatient treatment Current Visit: Yes Status: Acute Code(s): Z78.9 - OTHER SPECIFIED HEALTH STATUS SNOMED Code(s): 198974032 (3) Poorly controlled type 2 diabetes mellitus Current Visit: Yes Status: Acute Code(s): E11.65 - TYPE 2 DIABETES MELLITUS WITH HYPERGLYCEMIA SNOMED Code(s): 36081528 (4) Obesity Current Visit: No Status: Acute Code(s): E66.9 - OBESITY, UNSPECIFIED SNOMED Code(s): 677591967
[2017-07-25 17:26] LABS: Glucose,Whole Blood 189 mg/dL (75-99)
[2017-07-25 20:31] LABS: Glucose,Whole Blood 107 mg/dL (75-99)
[2017-07-25] MEDS: ATORVASTATIN 80 MG TAB PO SCH (21:11)
[2017-07-25] MEDS: ERTAPENEM 0.5 GM in SODIUM CHLORIDE 0.9% 50 ML IVPB SCH (21:12)
[2017-07-26 02:20] LABS: Glucose,Whole Blood 89 mg/dL (75-99)
[2017-07-26] MEDS: INSULIN PUMP MEAL BOLUS 1 UNIT MISC MISCELLANE SCH ×4 (04:42→18:00)
[2017-07-26 07:14] LABS: Glucose,Whole Blood 129 mg/dL (75-99)
[2017-07-26] MEDS: ASPIRIN 81 MG PO SCH (08:54)
[2017-07-26] MEDS: amLODIPine 10 MG TAB PO SCH (08:54)
[2017-07-26] MEDS: ISOSORBIDE MONONITRATE ER 30 MG TAB.ER.24H PO SCH (08:55)
[2017-07-26] MEDS: busPIRone HCl 5 MG TAB PO SCH ×2 (08:55→21:53)
[2017-07-26] MEDS: FAMOTIDINE 20 MG TAB PO SCH (08:55)
[2017-07-26] MEDS: FUROSEMIDE 80 MG TAB PO SCH ×2 (08:55→21:53)
[2017-07-26] MEDS: HEPARIN SODIUM,PORCINE 5,000 UNIT/ML 1 ML VIAL SQ SCH ×2 (08:55→22:00)
[2017-07-26] MEDS: ESCITALOPRAM 20 MG TAB PO SCH (08:55)
[2017-07-26] MEDS: SILVER sulfADIAZINE Cream 400 GM 1 APPLIC APPLIC TOPICAL SCH ×2 (08:56→22:39)
[2017-07-26] MEDS: lamoTRIgine 100 MG TAB PO SCH ×2 (08:56→21:54)
[2017-07-26] MEDS: LORazepam 1 MG TAB PO SCH ×2 (08:56→22:00)
[2017-07-26] MEDS: HYDROcodone/APAP 5-325MG 1 EACH TAB PO PRN ×2 (08:56→17:46)
[2017-07-26 12:16] LABS: Glucose,Whole Blood 157 mg/dL (75-99)
--- NOTE | 2017-07-26 12:32 | P.PN ---
Subjective Patient is seen in follow-up for incisional disease. She is maintained on hemodialysis on a Friday schedule. Patient's currently being treated with IV antibiotics for a cat bite. Currently resting in bed. Hemodynamically stable. No edema. Denies chest pain or shortness of breath. Vital signs are stable. General: The patient appeared well nourished and normally developed. HEENT: Head exam is unremarkable. Neck is without jugular venous distension. LUNGS: Lungs are clear to auscultation and percussion. Breath sounds decreased. HEART: Rate and Rhythm are regular. First and second heart sounds normal. No murmurs, rubs or gallops. ABDOMEN: Abdominal exam reveals normal bowel sounds. Non-tender and non- distended. No evidence of peritonitis. EXTREMITITES: No clubbing, cyanosis, or edema. Right foot wrapped. No obvious drainage. Objective - Vital Signs Vital signs: Vital Signs Temp 98.7 F 07/26/17 05:28 Pulse 71 07/26/17 05:28 Resp 17 07/26/17 05:28 BP 126/59 07/26/17 05:28 Pulse Ox 96 07/26/17 05:28 Intake & Output 07/25/17 07/26/17 07/26/17 18:59 06:59 18:59 Other: # Voids 0 0 - Labs CBC & Chem 7: 07/25/17 09:23 07/25/17 09:23 Labs: Abnormal Lab Results - Last 24 Hours (Table) 07/25/17 07/25/17 07/26/17 Range/Units 17:16 20:29 06:56 POC Glucose (mg/dL) 189 H 107 H 129 H (75-99) mg/dL 07/26/17 Range/Units 12:11 POC Glucose (mg/dL) 157 H (75-99) mg/dL Microbiology - Last 24 Hours (Table) 07/23/17 10:00 Blood Culture - Preliminary Blood No Growth after 72 hours Assessment and Plan Plan: Assessment: 1. End-stage renal disease maintained on hemodialysis Friday schedule. 2. Right foot cellulitis secondary to cat bite maintained on antibiotics per infectious disease recommendations. 3. Anemia of chronic kidney disease maintained on Aranesp. 4. Morbid obesity. 5. Hypertension with chronic kidney disease. Controlled. 6. Chronic kidney disease mineral bone disease. Plan: Hemodialysis on Friday. Check phosphorus level. Check iron studies. Stable to be discharged home from nephrology standpoint.
--- NOTE | 2017-07-26 12:50 | P.PN ---
Subjective Progress Note Date: 07/26/17 Principal diagnosis: Cellulitis right lower extremity. Status post Right right foot/ankle. The patient is a 62-year-old female with a history of morbid obesity, coronary artery disease, diabetes, and chronic kidney disease with dialysis, who presented to the hospital 3 days ago with fever and chills after sustaining a cat bite last week. She states that she pinned her domesticated cat against the wall with her motorized wheelchair on accident and the cat bit her multiple times. She noticed the day after the cat bites she developed increased redness and swelling to the foot. She was started on oral antibiotics on an outpatient basis but the condition continued to worsen. The patient did have a low-grade fever and she states that "she felt punky". She was admitted to the hospital for IV antibiotics and infectious disease consultation. We were consulted for possible surgical intervention. The patient states that she is feeling better today. She feels that the redness is improving. She does continue to have some pain about the bite swain. Objective - Vital Signs Vital signs: Vital Signs Temp 98.7 F 07/26/17 05:28 Pulse 71 07/26/17 05:28 Resp 17 07/26/17 05:28 BP 126/59 07/26/17 05:28 Pulse Ox 96 07/26/17 05:28 Intake & Output 07/25/17 07/26/17 07/26/17 18:59 06:59 18:59 Other: # Voids 0 0 - Exam This is a pleasant 62-year-old female in no acute distress. She is alert and oriented 3. Exam of the right lower extremity reveals that her erythema is improved. Swelling is improved. She has full foot and ankle motion without difficulty. The bite swain have no drainage. Neurovascular status to the lower extremities intact. - Labs CBC & Chem 7: 07/25/17 09:23 07/25/17 09:23 Labs: Abnormal Lab Results - Last 24 Hours (Table) 07/25/17 07/25/17 07/26/17 Range/Units 17:16 20:29 06:56 POC Glucose (mg/dL) 189 H 107 H 129 H (75-99) mg/dL 07/26/17 Range/Units 12:11 POC Glucose (mg/dL) 157 H (75-99) mg/dL Microbiology - Last 24 Hours (Table) 07/23/17 10:00 Blood Culture - Preliminary Blood No Growth after 72 hours Assessment and Plan (1) Cat bite Current Visit: Yes Status: Acute Code(s): W55.01XA - BITTEN BY CAT, INITIAL ENCOUNTER SNOMED Code(s): 194678912 (2) Cellulitis of foot, right Current Visit: Yes Status: Acute Code(s): L03.115 - CELLULITIS OF RIGHT LOWER LIMB SNOMED Code(s): 057107853 (3) Poorly controlled type 2 diabetes mellitus Current Visit: Yes Status: Acute Code(s): E11.65 - TYPE 2 DIABETES MELLITUS WITH HYPERGLYCEMIA SNOMED Code(s): 45352987 Plan: The clinical findings are discussed the patient. She is to continue the current antibiotic regime. Daily dressing changes with Silvadene. We'll continue to follow orthopedically.
--- NOTE | 2017-07-26 17:16 | P.PN ---
Subjective Progress Note Date: 07/26/17 The patient is a pleasant 62-year-old female patient who sees Dr. Gar and Dr. JAE Talley as an outpatient with a past medical history significant for coronary artery disease and prior coronary artery stenting with the patient underwent stenting of the proximal left anterior descending artery as well as ramus intermedius in April 2014, diabetes type 2, end stage renal disease on hemodialysis Friday, as well as dyslipidemia She presented to the emergency room secondary Bite that happened 07/17/2017, currently the her domesticated cat was trying to get out of her apartment and went into another hallway and as the patient was trying to leave her home she tried collecting the And rushed into the hallway at the end of it, her chest wall brushed theClearFitwer wheelchair navigation stick propelling the forward to full speed Trapping the cat Into the wall crushing it . the cat Started biting the patient's right foot approximately 8-9 times and was subsequently red inflamed swollen painful. She was started antibiotic when seen in the ER the next day, for which she filled the prescription 4 days prior to admission. The patient was subsequently seen by Dr. Goel in the office 3 days ago for another antibiotic however the antibiotics to expensive for her to get, and when she woke up this morning, the foot was significantly red swollen and very painful blistery, now it has redness involving the dorsum off the right foot metatarsal region, affecting the first toe, and below the ankles both medical lateral. There is no ulcers or open wound, however there are puncture swain noted, between the first and second metatarsal region approximately 3 cm patient was subsequently admitted for cellulitis of the foot with abscess formation, x-rays were done, TD vaccination the ER, and was admitted because of Dr. Chin. Patient was started on Rocephin patient has penicillin ALLERGY 07/24: Patient has been seen by Dr. Chin with recommendations to change antibiotics to ertapenem and Silvadene wrap to the right foot. Patient's white count is normal, she has been afebrile. Dr. Dennison consult changed to [facility]. Edema and redness to the right foot is improved from yesterday. Blood sugars are running 75-119. BUN is 52 and creatinine 7.61. Patient is followed by Dr. Talley for hemodialysis. HD for today as she missed a treatment and then resume usual schedule for tomorrow. 07/25: Patient has been seen by orthopedics with no plan for surgical intervention at this time and continue Silvadene cream and IV antibiotics. Patient is continued on ertapenem per Dr. Chin. Hemodialysis today and patient will resume her normal schedule as an outpatient on Friday. Patient continues to have tenderness although wound area is improved. Anticipate discharge home tomorrow.. 07/26. Patient examined bedside. Continues to have significant lower extremity pain along with swelling. Patient was seen by me in the clinic, the swelling appears to be worse as compared to last examination. Continue on ertapenem per Dr. Chin. We'll hold patient's discharge till Friday. Patient denies any abdominal pain, nausea, vomiting, chest pain or breathing difficulty Objective - Vital Signs Vital signs: Vital Signs Temp 97.2 F L 07/26/17 14:37 Pulse 70 07/26/17 14:37 Resp 16 07/26/17 14:37 BP 132/68 07/26/17 14:37 Pulse Ox 96 07/26/17 14:37 Intake & Output 07/25/17 07/26/17 07/26/17 18:59 06:59 18:59 Other: # Voids 0 0 0 # Bowel Movements 0 - Exam - Exam General appearance: cooperative, no acute distress, obese - EENT Eyes: anicteric sclerae, EOMI, PERRLA, normal appearance ENT: NA/AT, normal oropharynx - Neck Neck: no lymphadenopathy, normal ROM, no other, no rigidity, no stridor, no thyromegaly - Respiratory Respiratory: bilateral: CTA, negative: diminished, dullness, rales, rhonchi, wheezing, prolonged expiration - Cardiovascular Rhythm: regular Heart sounds: normal: S1, S2 Abnormal Heart Sounds: no systolic murmur, no diastolic murmur, no rub, no S3 Gallop, no S4 Gallop, no click, no other - Gastrointestinal General gastrointestinal: normal bowel sounds, soft - Integumentary Integumentary: cellulitis (Right dorsum flexural surface, involving the entire dorsum of the foot and the first toe base, and below the ankles is fluctuant 3 centimeter between the first and second metatarsal measuring 3 cm), decreased turgor, normal pulses - Neurologic Neurologic: CNII-XII intact - Musculoskeletal Musculoskeletal: gait normal, strength equal bilaterally - Psychiatric Psychiatric: A&O x's 3, appropriate affect, intact judgment & insight - Labs CBC & Chem 7: 07/25/17 09:23 07/25/17 09:23 Labs: Abnormal Lab Results - Last 24 Hours (Table) 07/25/17 07/25/17 07/26/17 Range/Units 17:16 20:29 06:56 POC Glucose (mg/dL) 189 H 107 H 129 H (75-99) mg/dL Phosphorus (2.5-4.5) mg/dL 07/26/17 07/26/17 Range/Units 12:11 12:46 POC Glucose (mg/dL) 157 H (75-99) mg/dL Phosphorus 6.2 H (2.5-4.5) mg/dL Microbiology - Last 24 Hours (Table) 07/23/17 10:00 Blood Culture - Preliminary Blood No Growth after 72 hours Assessment and Plan Plan: 1. Right foot Cellulitis after an animal bite (cat), domesticated 07/17/2017 with abscess formation second metatarsals, x-rays failed to reveal any osteomyelitis without any foreign body or subcutaneous emphysema, consult with Dr. Chin appreciated. Antibiotics changed to Ertapenem. Consult with Dr. Dennison for I&D changed to [facility]. No surgical intervention planned. Dr. Chin will address home antibiotics. 2. CAD: Post PCI with angioplasty and stent to stent placement or primary this year had been seeing cardiology Dr. DOLLY Jc regular basis . D she is to continue on double antiplatelet agents statins and beta blockers. 3 end-stage chronic kidney disease on hemodialysis 3 times a week consult nephrology continue dialysis as outpatient to resume treatment as scheduled Friday schedule. 4 type 2 diabetes on insulin pump: Continue insulin via pump continue Accu-Chek with sliding scales coverage as well. 5 hyperlipidemia: Continue Lipitor at 40 mg daily changes were made. 6 asthma/COPD: Continue Pulmicort along with DuoNeb 4 times a day. 7 hypothyroidism: Continue levothyroxine with 50 g daily. 8. Known history off anxiety and depression are stable on Lexapro and BuSpar along with Clonopin no changes were made 9 GERD/GI prophylaxis: Continue Pepcid 20 mg daily 10. Hypertensive cardiac vessel disease on amlodipine 10 mg daily Lasix 80 mg twice a day Imdur 30 mg daily 11 Chronic pain syndrome: Resume hydrocodone DVT prophylaxis Pepcid GI prophylaxis Discharge plan: Home with [facility] on Friday
[2017-07-26 17:28] LABS: Glucose,Whole Blood 170 mg/dL (75-99)
[2017-07-26 20:39] LABS: Glucose,Whole Blood 101 mg/dL (75-99)
[2017-07-26] MEDS: ATORVASTATIN 80 MG TAB PO SCH (21:53)
[2017-07-26] MEDS: ERTAPENEM 0.5 GM in SODIUM CHLORIDE 0.9% 50 ML IVPB SCH (21:56)
[2017-07-26 23:24] LABS: Iron Saturation 22.34 (12.00-45.00)
[2017-07-27] MEDS: INSULIN PUMP MEAL BOLUS 1 UNIT MISC MISCELLANE SCH ×4 (00:22→13:34)
[2017-07-27 02:34] LABS: Glucose,Whole Blood 68 mg/dL (75-99)
[2017-07-27 02:45] LABS: Glucose,Whole Blood 72 mg/dL (75-99)
[2017-07-27 03:02] LABS: Glucose,Whole Blood 70 mg/dL (75-99)
[2017-07-27 03:19] LABS: Glucose,Whole Blood 101 mg/dL (75-99)
[2017-07-27 07:06] LABS: Glucose,Whole Blood 226 mg/dL (75-99)
[2017-07-27] MEDS: busPIRone HCl 5 MG TAB PO SCH ×2 (07:59→22:06)
[2017-07-27] MEDS: ASPIRIN 81 MG PO SCH (07:59)
[2017-07-27] MEDS: ISOSORBIDE MONONITRATE ER 30 MG TAB.ER.24H PO SCH (07:59)
[2017-07-27] MEDS: amLODIPine 10 MG TAB PO SCH (07:59)
[2017-07-27] MEDS: LORazepam 1 MG TAB PO SCH ×2 (08:00→21:40)
[2017-07-27] MEDS: HEPARIN SODIUM,PORCINE 5,000 UNIT/ML 1 ML VIAL SQ SCH ×2 (08:00→22:08)
[2017-07-27] MEDS: ESCITALOPRAM 20 MG TAB PO SCH (08:00)
[2017-07-27] MEDS: FUROSEMIDE 80 MG TAB PO SCH (08:00)
[2017-07-27] MEDS: FAMOTIDINE 20 MG TAB PO SCH (08:00)
[2017-07-27] MEDS: SILVER sulfADIAZINE Cream 400 GM 1 APPLIC APPLIC TOPICAL SCH ×2 (08:00→22:10)
[2017-07-27] MEDS: lamoTRIgine 100 MG TAB PO SCH ×2 (08:00→22:10)
--- NOTE | 2017-07-27 09:56 | P.PN ---
Subjective Progress Note Date: 07/27/17 Principal diagnosis: Cellulitis right lower extremity. Status post Right right foot/ankle. The patient is a 62-year-old female with a history of morbid obesity, coronary artery disease, diabetes, and chronic kidney disease with dialysis, who presented to the hospital 3 days ago with fever and chills after sustaining a cat bite last week. She states that she pinned her domesticated cat against the wall with her motorized wheelchair on accident and the cat bit her multiple times. She noticed the day after the cat bites she developed increased redness and swelling to the foot. She was started on oral antibiotics on an outpatient basis but the condition continued to worsen. The patient did have a low-grade fever and she states that "she felt punky". She was admitted to the hospital for IV antibiotics and infectious disease consultation. We were consulted for possible surgical intervention. The patient states that she is feeling better today. She feels that the redness is improving. She does continue to have some pain about the bite swain. Objective - Vital Signs Vital signs: Vital Signs Temp 98.6 F 07/27/17 07:00 Pulse 74 07/27/17 07:00 Resp 16 07/27/17 07:00 BP 131/61 07/27/17 07:00 Pulse Ox 97 07/27/17 07:00 Intake & Output 07/26/17 07/27/17 07/27/17 18:59 06:59 18:59 Other: # Voids 0 0 # Bowel Movements 0 - Exam This is a pleasant 62-year-old female in no acute distress. She is alert and oriented 3. Exam of the right lower extremity reveals that her erythema is improved. Swelling is improved. She has full foot and ankle motion without difficulty. The bite swain have no drainage. Neurovascular status to the lower extremities intact. - Labs CBC & Chem 7: 07/25/17 09:23 07/25/17 09:23 Labs: Abnormal Lab Results - Last 24 Hours (Table) 07/26/17 07/26/17 07/26/17 Range/Units 12:11 12:46 12:46 POC Glucose (mg/dL) 157 H (75-99) mg/dL Phosphorus 6.2 H (2.5-4.5) mg/dL Iron 42 L (50-170) ug/dL TIBC 188 L (228-460) ug/dL Ferritin 2119.2 H (10.0-291.0) ng/mL 07/26/17 07/26/17 07/27/17 Range/Units 17:23 20:36 02:30 POC Glucose (mg/dL) 170 H 101 H 68 L (75-99) mg/dL Phosphorus (2.5-4.5) mg/dL Iron (50-170) ug/dL TIBC (228-460) ug/dL Ferritin (10.0-291.0) ng/mL 07/27/17 07/27/17 07/27/17 Range/Units 02:43 03:01 03:17 POC Glucose (mg/dL) 72 L 70 L 101 H (75-99) mg/dL Phosphorus (2.5-4.5) mg/dL Iron (50-170) ug/dL TIBC (228-460) ug/dL Ferritin (10.0-291.0) ng/mL 07/27/17 Range/Units 06:43 POC Glucose (mg/dL) 226 H (75-99) mg/dL Phosphorus (2.5-4.5) mg/dL Iron (50-170) ug/dL TIBC (228-460) ug/dL Ferritin (10.0-291.0) ng/mL Microbiology - Last 24 Hours (Table) 07/23/17 10:00 Blood Culture - Preliminary Blood No Growth after 72 hours Assessment and Plan (1) Cat bite Current Visit: Yes Status: Acute Code(s): W55.01XA - BITTEN BY CAT, INITIAL ENCOUNTER SNOMED Code(s): 569193433 (2) Cellulitis of foot, right Current Visit: Yes Status: Acute Code(s): L03.115 - CELLULITIS OF RIGHT LOWER LIMB SNOMED Code(s): 983585962 (3) Poorly controlled type 2 diabetes mellitus Current Visit: Yes Status: Acute Code(s): E11.65 - TYPE 2 DIABETES MELLITUS WITH HYPERGLYCEMIA SNOMED Code(s): 53902929 Plan: The clinical findings are discussed the patient. She is to continue the current antibiotic regime. Daily dressing changes with Silvadene. We'll continue to follow orthopedically.
--- NOTE | 2017-07-27 11:33 | P.PN ---
Subjective Patient is seen in follow-up for incisional disease. She is maintained on hemodialysis on a Friday schedule. Patient's currently being treated with IV antibiotics for a cat bite. Currently resting in bed. Hemodynamically stable. No edema. Denies chest pain or shortness of breath. Not feeling as good today. Feels tired. Vital signs are stable. General: The patient appeared well nourished and normally developed. HEENT: Head exam is unremarkable. Neck is without jugular venous distension. LUNGS: Lungs are clear to auscultation and percussion. Breath sounds decreased. HEART: Rate and Rhythm are regular. First and second heart sounds normal. No murmurs, rubs or gallops. ABDOMEN: Abdominal exam reveals normal bowel sounds. Non-tender and non- distended. No evidence of peritonitis. EXTREMITITES: No clubbing, cyanosis, or edema. Right foot wrapped. No obvious drainage. Objective - Vital Signs Vital signs: Vital Signs Temp 98.6 F 07/27/17 07:00 Pulse 74 07/27/17 07:00 Resp 16 07/27/17 07:00 BP 131/61 07/27/17 07:00 Pulse Ox 97 07/27/17 07:00 Intake & Output 07/26/17 07/27/17 07/27/17 18:59 06:59 18:59 Other: # Voids 0 0 # Bowel Movements 0 - Labs CBC & Chem 7: 07/25/17 09:23 07/25/17 09:23 Labs: Abnormal Lab Results - Last 24 Hours (Table) 07/26/17 07/26/17 07/26/17 Range/Units 12:11 12:46 12:46 POC Glucose (mg/dL) 157 H (75-99) mg/dL Phosphorus 6.2 H (2.5-4.5) mg/dL Iron 42 L (50-170) ug/dL TIBC 188 L (228-460) ug/dL Ferritin 2119.2 H (10.0-291.0) ng/mL 07/26/17 07/26/17 07/27/17 Range/Units 17:23 20:36 02:30 POC Glucose (mg/dL) 170 H 101 H 68 L (75-99) mg/dL Phosphorus (2.5-4.5) mg/dL Iron (50-170) ug/dL TIBC (228-460) ug/dL Ferritin (10.0-291.0) ng/mL 07/27/17 07/27/17 07/27/17 Range/Units 02:43 03:01 03:17 POC Glucose (mg/dL) 72 L 70 L 101 H (75-99) mg/dL Phosphorus (2.5-4.5) mg/dL Iron (50-170) ug/dL TIBC (228-460) ug/dL Ferritin (10.0-291.0) ng/mL 07/27/17 Range/Units 06:43 POC Glucose (mg/dL) 226 H (75-99) mg/dL Phosphorus (2.5-4.5) mg/dL Iron (50-170) ug/dL TIBC (228-460) ug/dL Ferritin (10.0-291.0) ng/mL Microbiology - Last 24 Hours (Table) 07/23/17 10:00 Blood Culture - Preliminary Blood No Growth after 72 hours Assessment and Plan Plan: Assessment: 1. End-stage renal disease maintained on hemodialysis Friday schedule. 2. Right foot cellulitis secondary to cat bite maintained on antibiotics per infectious disease recommendations. 3. Anemia of chronic kidney disease maintained on Aranesp. Iron replete. 4. Morbid obesity. 5. Hypertension with chronic kidney disease. Controlled. 6. Chronic kidney disease mineral bone disease. Plan: Hemodialysis on Friday. Add PhosLo with meals. Patient takes Fosrenol as an outpatient which is not available in the hospital.
[2017-07-27 12:24] LABS: Glucose,Whole Blood 157 mg/dL (75-99)
[2017-07-27] MEDS ORDERED: Acetaminophen-Codeine 300-30mg TAB PO PRN (13:21)
[2017-07-27] MEDS: INSULIN DETEMIR 100 UNIT/ML 10 ML VIAL SQ SCH ×2 (14:01→22:08)
[2017-07-27] MEDS: CALCIUM ACETATE 667 MG CAP PO SCH ×2 (14:02→17:11)
[2017-07-27] MEDS: FUROSEMIDE 10 MG/ML 10 ML VIAL IV SCH ×2 (14:02→22:07)
[2017-07-27] MEDS: CLOPIDOGREL 75 MG TAB PO SCH (15:14)
--- NOTE | 2017-07-27 16:15 | P.PN ---
Subjective Progress Note Date: 07/27/17 The patient is a pleasant 62-year-old female patient who sees Dr. Gar and Dr. JAE Talley as an outpatient with a past medical history significant for coronary artery disease and prior coronary artery stenting with the patient underwent stenting of the proximal left anterior descending artery as well as ramus intermedius in April 2014, diabetes type 2, end stage renal disease on hemodialysis Friday, as well as dyslipidemia She presented to the emergency room secondary Bite that happened 07/17/2017, currently the her domesticated cat was trying to get out of her apartment and went into another hallway and as the patient was trying to leave her home she tried collecting the And rushed into the hallway at the end of it, her chest wall brushed theHandswer wheelchair navigation stick propelling the forward to full speed Trapping the cat Into the wall crushing it . the cat Started biting the patient's right foot approximately 8-9 times and was subsequently red inflamed swollen painful. She was started antibiotic when seen in the ER the next day, for which she filled the prescription 4 days prior to admission. The patient was subsequently seen by Dr. Goel in the office 3 days ago for another antibiotic however the antibiotics to expensive for her to get, and when she woke up this morning, the foot was significantly red swollen and very painful blistery, now it has redness involving the dorsum off the right foot metatarsal region, affecting the first toe, and below the ankles both medical lateral. There is no ulcers or open wound, however there are puncture swain noted, between the first and second metatarsal region approximately 3 cm patient was subsequently admitted for cellulitis of the foot with abscess formation, x-rays were done, TD vaccination the ER, and was admitted because of Dr. Chin. Patient was started on Rocephin patient has penicillin ALLERGY 07/24: Patient has been seen by Dr. Chin with recommendations to change antibiotics to ertapenem and Silvadene wrap to the right foot. Patient's white count is normal, she has been afebrile. Dr. Dennison consult changed to [facility]. Edema and redness to the right foot is improved from yesterday. Blood sugars are running 75-119. BUN is 52 and creatinine 7.61. Patient is followed by Dr. Talley for hemodialysis. HD for today as she missed a treatment and then resume usual schedule for tomorrow. 07/25: Patient has been seen by orthopedics with no plan for surgical intervention at this time and continue Silvadene cream and IV antibiotics. Patient is continued on ertapenem per Dr. Chin. Hemodialysis today and patient will resume her normal schedule as an outpatient on Friday. Patient continues to have tenderness although wound area is improved. Anticipate discharge home tomorrow.. 07/26. Patient examined bedside. Continues to have significant lower extremity pain along with swelling. Patient was seen by me in the clinic, the swelling appears to be worse as compared to last examination. Continue on ertapenem per Dr. Chin. We'll hold patient's discharge till Friday. Patient denies any abdominal pain, nausea, vomiting, chest pain or breathing difficulty 07/27 Patient appears very drowsyon exam, hasnot got morphine for the past 2 days. Glucose this morning 70 and there is a possibility that patient bolused her twice as patient is confused. COnfusion could be secondary to hypoglycemia. Insulin drip stopped and switched to levemir 10 units BID and 5 untis with meals. Objective - Vital Signs Vital signs: Vital Signs Temp 98.6 F 07/27/17 07:00 Pulse 74 07/27/17 07:00 Resp 16 07/27/17 07:00 BP 131/61 07/27/17 07:00 Pulse Ox 97 07/27/17 07:00 Intake & Output 07/26/17 07/27/17 07/27/17 18:59 06:59 18:59 Other: # Voids 0 0 # Bowel Movements 0 - Exam - Exam General appearance: cooperative, no acute distress, obese, drowsy - EENT Eyes: anicteric sclerae, EOMI, PERRLA, normal appearance ENT: NA/AT, normal oropharynx - Neck Neck: no lymphadenopathy, normal ROM, no other, no rigidity, no stridor, no thyromegaly - Respiratory Respiratory: bilateral: CTA, negative: diminished, dullness, rales, rhonchi, wheezing, prolonged expiration - Cardiovascular Rhythm: regular Heart sounds: normal: S1, S2 Abnormal Heart Sounds: no systolic murmur, no diastolic murmur, no rub, no S3 Gallop, no S4 Gallop, no click, no other - Gastrointestinal General gastrointestinal: normal bowel sounds, soft - Integumentary Integumentary: cellulitis (Right dorsum flexural surface, involving the entire dorsum of the foot and the first toe base, and below the ankles is fluctuant 3 centimeter between the first and second metatarsal measuring 3 cm), decreased turgor, normal pulses - Neurologic Neurologic: CNII-XII intact - Musculoskeletal Musculoskeletal: gait normal, strength equal bilaterally - Psychiatric Psychiatric: A&O x's 3, drowsy, intact judgment & insight - Labs CBC & Chem 7: 07/25/17 09:23 07/25/17 09:23 Labs: Abnormal Lab Results - Last 24 Hours (Table) 07/26/17 07/26/17 07/26/17 Range/Units 12:46 17:23 20:36 POC Glucose (mg/dL) 170 H 101 H (75-99) mg/dL Iron 42 L (50-170) ug/dL TIBC 188 L (228-460) ug/dL Ferritin 2119.2 H (10.0-291.0) ng/mL 07/27/17 07/27/17 07/27/17 Range/Units 02:30 02:43 03:01 POC Glucose (mg/dL) 68 L 72 L 70 L (75-99) mg/dL Iron (50-170) ug/dL TIBC (228-460) ug/dL Ferritin (10.0-291.0) ng/mL 07/27/17 07/27/17 07/27/17 Range/Units 03:17 06:43 12:20 POC Glucose (mg/dL) 101 H 226 H 157 H (75-99) mg/dL Iron (50-170) ug/dL TIBC (228-460) ug/dL Ferritin (10.0-291.0) ng/mL Microbiology - Last 24 Hours (Table) 07/23/17 10:00 Blood Culture - Preliminary Blood No Growth after 96 hours Assessment and Plan Plan: 1. Right foot Cellulitis after an animal bite (cat), domesticated 07/17/2017 with abscess formation second metatarsals, x-rays failed to reveal any osteomyelitis without any foreign body or subcutaneous emphysema, consult with Dr. Chin appreciated. Antibiotics changed to Ertapenem. Consult with Dr. Dennison for I&D changed to [facility]. No surgical intervention planned. Dr. Chin will address home antibiotics. 2. CAD: Post PCI with angioplasty and stent to stent placement or primary this year had been seeing cardiology Dr. DOLLY Jc regular basis . D she is to continue on double antiplatelet agents statins and beta blockers. 3 end-stage chronic kidney disease on hemodialysis 3 times a week consult nephrology continue dialysis as outpatient to resume treatment as scheduled Friday schedule. 4 type 2 diabetes on insulin pump: Continue insulin via pump continue Accu-Chek with sliding scales coverage as well. 5 hyperlipidemia: Continue Lipitor at 40 mg daily changes were made. 6 asthma/COPD: Continue Pulmicort along with DuoNeb 4 times a day. 7 hypothyroidism: Continue levothyroxine with 50 g daily. 8. Known history off anxiety and depression are stable on Lexapro and BuSpar along with Clonopin no changes were made 9 GERD/GI prophylaxis: Continue Pepcid 20 mg daily 10. Hypertensive cardiac vessel disease on amlodipine 10 mg daily Lasix 80 mg twice a day Imdur 30 mg daily 11 Chronic pain syndrome: Resume hydrocodone 12 Acute metabolic encephalopathy likley secondary to hypoglycemia and decreased clearance of opiods due to ESRD. hold any opiote. If needed tylenol 3 as needed for pain DVT prophylaxis Pepcid GI prophylaxis Discharge plan: Home with [facility] on Friday
[2017-07-27 17:07] LABS: Glucose,Whole Blood 139 mg/dL (75-99)
[2017-07-27] MEDS: INSULIN ASPART 100 UNIT/ML 1 ML 10 ML VIAL SQ SCH ×3 (17:11→22:08)
[2017-07-27] MEDS ORDERED: INSULIN ASPART 100 UNIT/ML 1 ML 10 ML VIAL SQ SCH (17:30)
[2017-07-27 20:47] LABS: Glucose,Whole Blood 250 mg/dL (75-99)
[2017-07-27] MEDS: ATORVASTATIN 80 MG TAB PO SCH (22:06)
[2017-07-27] MEDS: ERTAPENEM 0.5 GM in SODIUM CHLORIDE 0.9% 50 ML IVPB SCH (22:07)
[2017-07-28 01:50] LABS: Glucose,Whole Blood 249 mg/dL (75-99)
[2017-07-28 07:13] LABS: Glucose,Whole Blood 276 mg/dL (75-99)
[2017-07-28] MEDS: LORazepam 1 MG TAB PO SCH ×2 (07:31→19:22)
--- NOTE | 2017-07-28 08:24 | P.PN ---
Progress Note - Text Progress Note Date: 07/28/17 Patient is a pleasant 62-year-old female with a known history of morbid obesity , coronary artery disease, poorly controlled type 2 diabetes mellitus, and chronic kidney disease with dialysis who was admitted to the hospital on 2017 for further treatment and evaluation for right foot cellulitis after receiving multiple cat bites to the right foot in which she had been failing outpatient treatment. She's currently on IV antibiotics prescribed by Dr. Chin in infectious disease. Her dressing of the right foot has been changes morning. Her cellulitis has had some improvement since her initial presentation. She is extremely lethargic this morning. She is arousable and will answer some questions but falls asleep quickly. Patient states she has felt this was all the time over the past couple days but is unsure why. Nursing states she had this patient on and Friday and at that time patient was awake, alert, and oriented and was able to get out of bed. She states this morning patient is been basically on bedrest. Medicine is aware of the patient's lethargic state. Patient is scheduled to undergo dialysis this morning. She regularly undergoes dialysis on Friday, Friday, and Friday. Physical Exam: Patient is extremely lethargic; patient is arousable and able to answer a few questions but falls asleep Vital signs stable Good chest excursion with deep inspiration and expiration Evidence of a newly applied dressing over the right foot; dressing is clean, dry , and intact Dressing is not removed during physical examination Evidence of purple lines written on the right foot to indicate level of cellulitis Cellulitis has improved as compared to previous foot markings No signs or symptoms of DVT; no calf pain Extensor hallucis longus, plantarflexion, and dorsiflexion positive sustained bilateral lower extremities Assessment: Status post multiple cat bites to the right foot Cellulitis right foot Poorly controlled type 2 diabetes mellitus Chronic kidney disease requiring dialysis Plan: 1. At this time, we will continue conservative treatment regards to her cellulitis of the right foot from an orthopedic standpoint. Patient continues to be on IV antibiotics as prescribed by Dr. Chin in infectious disease. She has had some improvement in the cellulitis in her right foot. She has also been receiving daily dressing changes with Silvadene and her dressing has been changed morning. At this time, we will continue to follow the recommendations per infectious disease in regards to her cellulitis of the right foot. We are not currently planning for surgical intervention. 2. Dr. Chin in infectious disease will continue following the patient 3. Medicine will continue to follow patient for her other significant medical diagnoses as well as significant lethargic state 4. Patient scheduled to undergo dialysis treatment today for chronic kidney disease 5. Following discharge, patient may follow-up with Jonnie Burden PA-C or Dr. Connor Mendoza at [facility] in approximately 1 week for further evaluation 6. Patient has been discussed in detail with Dr. Connor Davis and he agrees with this plan
[2017-07-28 08:34] LABS: Anisocytosis Slight; Basophils % (A) 0 %; Eosinophils # (A) 0.2 k/uL (0-0.7); Eosinophils % (A) 1 %; HCT 31.5 % (34.0-46.0); HGB 9.8 gm/dL (11.4-16.0); Hypochromasia Marked; Lymphocytes # (A) 0.6 k/uL (1.0-4.8); Lymphocytes % (A) 3 %; MCH 29.3 pg (25.0-35.0); MCHC 31.1 g/dL (31.0-37.0); Mean Platelet Volume 8.6; Monocytes # (A) 1.1 k/uL (0-1.0); Monocytes % (A) 6 %; Neutrophils # (A) 15.8 k/uL (1.3-7.7); Neutrophils % (A) 88 %; Platelet Count 363 k/uL (150-450); RBC 3.35 m/uL (3.80-5.40); RDW 16.5 % (11.5-15.5); WBC 17.9 k/uL (3.8-10.6)
[2017-07-28] MEDS: INSULIN ASPART 100 UNIT/ML 1 ML 10 ML VIAL SQ SCH ×7 (09:01→21:22)
[2017-07-28] MEDS: busPIRone HCl 5 MG TAB PO SCH ×2 (09:01→19:17)
[2017-07-28] MEDS: CALCIUM ACETATE 667 MG CAP PO SCH ×3 (09:02→15:49)
[2017-07-28] MEDS: SILVER sulfADIAZINE Cream 400 GM 1 APPLIC APPLIC TOPICAL SCH ×2 (09:02→20:11)
[2017-07-28] MEDS: lamoTRIgine 100 MG TAB PO SCH ×2 (09:02→19:17)
[2017-07-28] MEDS: FUROSEMIDE 10 MG/ML 10 ML VIAL IV SCH ×2 (09:03→20:10)
[2017-07-28] MEDS: HEPARIN SODIUM,PORCINE 5,000 UNIT/ML 1 ML VIAL SQ SCH ×2 (09:03→20:10)
[2017-07-28] MEDS: ESCITALOPRAM 20 MG TAB PO SCH (09:03)
[2017-07-28] MEDS: FAMOTIDINE 20 MG TAB PO SCH (09:03)
[2017-07-28] MEDS: ASPIRIN 81 MG PO SCH (09:04)
[2017-07-28] MEDS: amLODIPine 10 MG TAB PO SCH (09:35)
[2017-07-28] MEDS: INSULIN DETEMIR 100 UNIT/ML 10 ML VIAL SQ SCH ×2 (09:35→21:22)
[2017-07-28] MEDS: ISOSORBIDE MONONITRATE ER 30 MG TAB.ER.24H PO SCH (09:36)
[2017-07-28 09:38] LABS: Albumin 3.6 g/dL (3.5-5.0); Calcium 8.1 mg/dL (8.4-10.2); Total Bilirubin 0.7 mg/dL (0.2-1.3); Total Protein 6.4 g/dL (6.3-8.2)
[2017-07-28 09:40] LABS: Potassium 6.4 mmol/L (3.5-5.1)
[2017-07-28 11:36] LABS: Glucose,Whole Blood 204 mg/dL (75-99)
--- NOTE | 2017-07-28 15:06 | P.PN ---
Subjective Progress Note Date: 07/28/17 The patient is a pleasant 62-year-old female patient who sees Dr. Gar and Dr. JAE Talley as an outpatient with a past medical history significant for coronary artery disease and prior coronary artery stenting with the patient underwent stenting of the proximal left anterior descending artery as well as ramus intermedius in April 2014, diabetes type 2, end stage renal disease on hemodialysis Friday, as well as dyslipidemia She presented to the emergency room secondary Bite that happened 07/17/2017, currently the her domesticated cat was trying to get out of her apartment and went into another hallway and as the patient was trying to leave her home she tried collecting the And rushed into the hallway at the end of it, her chest wall brushed theTrendslidewer wheelchair navigation stick propelling the forward to full speed Trapping the cat Into the wall crushing it . the cat Started biting the patient's right foot approximately 8-9 times and was subsequently red inflamed swollen painful. She was started antibiotic when seen in the ER the next day, for which she filled the prescription 4 days prior to admission. The patient was subsequently seen by Dr. Goel in the office 3 days ago for another antibiotic however the antibiotics to expensive for her to get, and when she woke up this morning, the foot was significantly red swollen and very painful blistery, now it has redness involving the dorsum off the right foot metatarsal region, affecting the first toe, and below the ankles both medical lateral. There is no ulcers or open wound, however there are puncture swain noted, between the first and second metatarsal region approximately 3 cm patient was subsequently admitted for cellulitis of the foot with abscess formation, x-rays were done, TD vaccination the ER, and was admitted because of Dr. Chin. Patient was started on Rocephin patient has penicillin ALLERGY 07/24: Patient has been seen by Dr. Chin with recommendations to change antibiotics to ertapenem and Silvadene wrap to the right foot. Patient's white count is normal, she has been afebrile. Dr. Dennison consult changed to [facility]. Edema and redness to the right foot is improved from yesterday. Blood sugars are running 75-119. BUN is 52 and creatinine 7.61. Patient is followed by Dr. Talley for hemodialysis. HD for today as she missed a treatment and then resume usual schedule for tomorrow. 07/25: Patient has been seen by orthopedics with no plan for surgical intervention at this time and continue Silvadene cream and IV antibiotics. Patient is continued on ertapenem per Dr. Chin. Hemodialysis today and patient will resume her normal schedule as an outpatient on Friday. Patient continues to have tenderness although wound area is improved. Anticipate discharge home tomorrow.. 07/26. Patient examined bedside. Continues to have significant lower extremity pain along with swelling. Patient was seen by me in the clinic, the swelling appears to be worse as compared to last examination. Continue on ertapenem per Dr. Chin. We'll hold patient's discharge till Friday. Patient denies any abdominal pain, nausea, vomiting, chest pain or breathing difficulty 07/27 Patient appears very drowsyon exam, hasnot got morphine for the past 2 days. Glucose this morning 70 and there is a possibility that patient bolused her twice as patient is confused. COnfusion could be secondary to hypoglycemia. Insulin drip stopped and switched to levemir 10 units BID and 5 untis with meals. 07/28: Patient remains lethargic but improving and she is receiving hemodialysis. Patient does answer questions. She complains of feeling tired. Vital signs have been stable. White count jumped up to 17.9. Lactic acid came back at 0.9. Blood culture was obtained. She has been afebrile. Repeat labs also show potassium 6.4, BUN 15 creatinine 7.98. Objective - Vital Signs Vital signs: Vital Signs Temp 97.0 F L 07/28/17 06:30 Pulse 68 07/28/17 09:00 Resp 16 07/28/17 06:30 BP 125/60 07/28/17 09:00 Pulse Ox 93 L 07/28/17 09:00 Intake & Output 07/27/17 07/28/17 07/28/17 18:59 06:59 18:59 Other: # Voids 1 0 - Exam General appearance: cooperative, no acute distress, obese, drowsy - EENT Eyes: anicteric sclerae, EOMI, PERRLA, normal appearance ENT: NA/AT, normal oropharynx - Neck Neck: no lymphadenopathy, normal ROM, no other, no rigidity, no stridor, no thyromegaly - Respiratory Respiratory: bilateral: CTA, negative: diminished, dullness, rales, rhonchi, wheezing, prolonged expiration - Cardiovascular Rhythm: regular Heart sounds: normal: S1, S2 Abnormal Heart Sounds: no systolic murmur, no diastolic murmur, no rub, no S3 Gallop, no S4 Gallop, no click, no other - Gastrointestinal General gastrointestinal: normal bowel sounds, soft - Integumentary Integumentary: cellulitis (Right dorsum flexural surface, involving the entire dorsum of the foot and the first toe base, and below the ankles is fluctuant 3 centimeter between the first and second metatarsal measuring 3 cm), decreased turgor, normal pulses - Neurologic Neurologic: CNII-XII intact - Musculoskeletal Musculoskeletal: gait normal, strength equal bilaterally - Psychiatric Psychiatric: A&O x's 3, drowsy, intact judgment & insight - Labs CBC & Chem 7: 07/28/17 07:18 07/28/17 08:24 Labs: Abnormal Lab Results - Last 24 Hours (Table) 07/25/17 07/27/17 07/27/17 Range/Units 09:23 12:20 17:01 WBC (3.8-10.6) k/uL RBC (3.80-5.40) m/uL Hgb (11.4-16.0) gm/dL Hct (34.0-46.0) % RDW (11.5-15.5) % Neutrophils # (1.3-7.7) k/uL Lymphocytes # (1.0-4.8) k/uL Monocytes # (0-1.0) k/uL Sodium (137-145) mmol/L Potassium (3.5-5.1) mmol/L Chloride (98-107) mmol/L Carbon Dioxide (22-30) mmol/L BUN (7-17) mg/dL Creatinine (0.52-1.04) mg/dL Glucose (74-99) mg/dL POC Glucose (mg/dL) 157 H 139 H (75-99) mg/dL Calcium (8.4-10.2) mg/dL AST (14-36) U/L Hep Bs Antibody Equivocal H (Non-Reactive) 07/27/17 07/28/17 07/28/17 Range/Units 20:44 01:48 07:09 WBC (3.8-10.6) k/uL RBC (3.80-5.40) m/uL Hgb (11.4-16.0) gm/dL Hct (34.0-46.0) % RDW (11.5-15.5) % Neutrophils # (1.3-7.7) k/uL Lymphocytes # (1.0-4.8) k/uL Monocytes # (0-1.0) k/uL Sodium (137-145) mmol/L Potassium (3.5-5.1) mmol/L Chloride (98-107) mmol/L Carbon Dioxide (22-30) mmol/L BUN (7-17) mg/dL Creatinine (0.52-1.04) mg/dL Glucose (74-99) mg/dL POC Glucose (mg/dL) 250 H 249 H 276 H (75-99) mg/dL Calcium (8.4-10.2) mg/dL AST (14-36) U/L Hep Bs Antibody (Non-Reactive) 18 07/28/17 Range/Units 07:18 08:24 WBC 17.9 H (3.8-10.6) k/uL RBC 3.35 L (3.80-5.40) m/uL Hgb 9.8 L (11.4-16.0) gm/dL Hct 31.5 L (34.0-46.0) % RDW 16.5 H (11.5-15.5) % Neutrophils # 15.8 H (1.3-7.7) k/uL Lymphocytes # 0.6 L (1.0-4.8) k/uL Monocytes # 1.1 H (0-1.0) k/uL Sodium 134 L (137-145) mmol/L Potassium 6.4 H* (3.5-5.1) mmol/L Chloride 93 L (98-107) mmol/L Carbon Dioxide 18 L (22-30) mmol/L BUN 50 H (7-17) mg/dL Creatinine 7.98 H* (0.52-1.04) mg/dL Glucose 299 H (74-99) mg/dL POC Glucose (mg/dL) (75-99) mg/dL Calcium 8.1 L (8.4-10.2) mg/dL AST 44 H (14-36) U/L Hep Bs Antibody (Non-Reactive) Microbiology - Last 24 Hours (Table) 07/23/17 10:00 Blood Culture - Preliminary Blood No Growth after 96 hours Assessment and Plan Plan: 1. Right foot Cellulitis after an animal bite (cat), domesticated 07/17/2017 with abscess formation second metatarsals, x-rays failed to reveal any osteomyelitis without any foreign body or subcutaneous emphysema, consult with Dr. Chin appreciated. Antibiotics changed to Ertapenem. Consult with Dr. Dennison for I&D changed to [facility]. No surgical intervention planned. Dr. Chin will address home antibiotics. 2. CAD: Post PCI with angioplasty and stent to stent placement or primary this year had been seeing cardiology Dr. DOLLY Jc regular basis . D she is to continue on double antiplatelet agents statins and beta blockers. 3 end-stage chronic kidney disease on hemodialysis 3 times a week consult nephrology continue dialysis as outpatient to resume treatment as scheduled Friday schedule. 4 type 2 diabetes on insulin pump: Continue insulin via pump continue Accu-Chek with sliding scales coverage as well. 5 hyperlipidemia: Continue Lipitor at 40 mg daily changes were made. 6 asthma/COPD: Continue Pulmicort along with DuoNeb 4 times a day. 7 hypothyroidism: Continue levothyroxine with 50 g daily. 8. Known history off anxiety and depression are stable on Lexapro and BuSpar along with Clonopin no changes were made 9 GERD/GI prophylaxis: Continue Pepcid 20 mg daily 10. Hypertensive cardiac vessel disease on amlodipine 10 mg daily Lasix 80 mg twice a day Imdur 30 mg daily 11 Chronic pain syndrome: Resume hydrocodone 12 Acute metabolic encephalopathy likley secondary to hypoglycemia and decreased clearance of opiods due to ESRD. hold any opiote. If needed tylenol 3 as needed for pain DVT prophylaxis Pepcid GI prophylaxis Discharge plan: Home with [facility] Impression and plan of care have been directed as dictated by the signing physician. Emely Contreras nurse practitioner acting as scribe for signing physician.
[2017-07-28 16:55] LABS: Glucose,Whole Blood 106 mg/dL (75-99)
--- NOTE | 2017-07-28 18:04 | P.PN ---
Subjective Progress Note Date: 07/28/17 62-year-old female who suffers from superobesity, coronary artery disease, diabetes mellitus type 2 on insulin pump and chronic pain syndrome presents to Hospital after an injury to her right foot. The patient relates that she normally uses a power wheelchair. She does have a pet cat. Apparently the cat got out of her apartment and was going down the court or. She attempted to use a wheelchair to the cat off for many able to go down a different [place]. She went to reach for the cat and her breast. The control bar in the wheelchair jumped forward pinning the cat between the wall in the wheelchair. It was able to bite her foot multiple times before she was able to become cognizant enough to back the wheelchair off of the cat. Fortunately the cat was not seriously injured, and the patient relates a cat does have its vaccines. The patient was treated the outpatient setting and with her ALLERGIES are treated with ciprofloxacin and despite that he has had no improvement because it was admitted to hospital antibiotics with Rocephin and metronidazole were begun, she was seen by surgery without the need for surgical debridement at this time. However failing antibiotic therapy and constantly was admitted. The foot is painful swollen red and warm to touch. She believes she's had a low-grade fever but no chills or rigors. Her blood sugars have also been harder to control. 07/24/2017 improved today less pain and swelling but still on mS as needed. 07/25/2017 patient is improved today. The foot has shown improved swelling is improved having no difficulty with antibiotic therapy for the cat bite to the right foot. 07/28/2017 patient is evidence of some improvements to her right foot but has had some alteration of her mental status. She's more encephalopathic. She'll return is arousable and does indicate with the observer rapidly falls back to sleep. She has been evaluated by nephrology and after hemodialysis to be rapid improvement of her neurological status. Possibly metabolic in nature. Objective - Vital Signs Vital signs: Vital Signs Temp 97.7 F 07/28/17 15:00 Pulse 74 07/28/17 15:00 Resp 16 07/28/17 15:00 BP 125/60 07/28/17 15:00 Pulse Ox 93 L 07/28/17 15:00 Intake & Output 07/27/17 07/28/17 07/28/17 18:59 06:59 18:59 Other: # Voids 1 0 0 - Exam 62-year-old woman with superobesity is somewhat uncomfortable HEENT: Anicteric conjunctiva are pink and moist nasal mucosa grossly intact without significant lesions, there is no thrush. Neck: The neck is supple without significant lymphadenopathy or thyromegaly. Lungs: Good bilateral air entry without significant crackles or wheezing. There is no significant bronchial sounds. There is no egophony or dullness. Heart: Regular rate and rhythm with an audible S1-S2, no S3 no S4. There is no significant murmur click or rub, PMI was nondisplaced. Abdomen: Obese Positive bowel sounds soft and nontender without palpable masses or organomegaly. There was no guarding or rebound. Extremities: The upper extremities have excellent pulses they are symmetric, no significant petechiae or telangiectasia. No splinter hemorrhages were noted. The bilateral lower extremities show evidence of the healing ecchymosis of the bilateral knees from her fall about a month ago. Does have evidence of some residual swelling and fluid to the right prepatellar area. He has not very tender to touch it is not warm at that site. The right foot however is very swollen compared to the left. There is the multiple healing bite swain without evidence of drainage, the dense erythema has has markedly improved. The swelling is also markedly improved. There is one small area of fluctuance on the dorsum of the foot, the area is cleansed with saline and then 18-gauge needle was utilized to aspirate purulence which is sent to laboratory for culture. There is not a significant amount of ascending lymphangitis. And there is no tender lymphadenopathy into the right groin. No other abnormal lymph nodes are noted either. Neuro: Arousable and is able to communicate with the observer but briefly. - Labs CBC & Chem 7: 07/28/17 07:18 07/28/17 08:24 Labs: Abnormal Lab Results - Last 24 Hours (Table) 07/25/17 07/27/17 07/28/17 Range/Units 09:23 20:44 01:48 WBC (3.8-10.6) k/uL RBC (3.80-5.40) m/uL Hgb (11.4-16.0) gm/dL Hct (34.0-46.0) % RDW (11.5-15.5) % Neutrophils # (1.3-7.7) k/uL Lymphocytes # (1.0-4.8) k/uL Monocytes # (0-1.0) k/uL Sodium (137-145) mmol/L Potassium (3.5-5.1) mmol/L Chloride (98-107) mmol/L Carbon Dioxide (22-30) mmol/L BUN (7-17) mg/dL Creatinine (0.52-1.04) mg/dL Glucose (74-99) mg/dL POC Glucose (mg/dL) 250 H 249 H (75-99) mg/dL Calcium (8.4-10.2) mg/dL AST (14-36) U/L Hep Bs Antibody Equivocal H (Non-Reactive) 07/28/17 07/28/17 07/28/17 Range/Units 07:09 07:18 08:24 WBC 17.9 H (3.8-10.6) k/uL RBC 3.35 L (3.80-5.40) m/uL Hgb 9.8 L (11.4-16.0) gm/dL Hct 31.5 L (34.0-46.0) % RDW 16.5 H (11.5-15.5) % Neutrophils # 15.8 H (1.3-7.7) k/uL Lymphocytes # 0.6 L (1.0-4.8) k/uL Monocytes # 1.1 H (0-1.0) k/uL Sodium 134 L (137-145) mmol/L Potassium 6.4 H* (3.5-5.1) mmol/L Chloride 93 L (98-107) mmol/L Carbon Dioxide 18 L (22-30) mmol/L BUN 50 H (7-17) mg/dL Creatinine 7.98 H* (0.52-1.04) mg/dL Glucose 299 H (74-99) mg/dL POC Glucose (mg/dL) 276 H (75-99) mg/dL Calcium 8.1 L (8.4-10.2) mg/dL AST 44 H (14-36) U/L Hep Bs Antibody (Non-Reactive) 07/28/17 07/28/17 Range/Units 11:35 16:53 WBC (3.8-10.6) k/uL RBC (3.80-5.40) m/uL Hgb (11.4-16.0) gm/dL Hct (34.0-46.0) % RDW (11.5-15.5) % Neutrophils # (1.3-7.7) k/uL Lymphocytes # (1.0-4.8) k/uL Monocytes # (0-1.0) k/uL Sodium (137-145) mmol/L Potassium (3.5-5.1) mmol/L Chloride (98-107) mmol/L Carbon Dioxide (22-30) mmol/L BUN (7-17) mg/dL Creatinine (0.52-1.04) mg/dL Glucose (74-99) mg/dL POC Glucose (mg/dL) 204 H 106 H (75-99) mg/dL Calcium (8.4-10.2) mg/dL AST (14-36) U/L Hep Bs Antibody (Non-Reactive) Microbiology - Last 24 Hours (Table) 07/23/17 10:00 Blood Culture - Preliminary Blood No Growth after 120 hours Laboratory Results WBC 17.9 k/uL (3.8-10.6) H 07/28/17 07:18 RBC 3.35 m/uL (3.80-5.40) L 07/28/17 07:18 Hgb 9.8 gm/dL (11.4-16.0) L 07/28/17 07:18 Hct 31.5 % (34.0-46.0) L 07/28/17 07:18 MCV 94.0 fL (80.0-100.0) 07/28/17 07:18 MCH 29.3 pg (25.0-35.0) 07/28/17 07:18 MCHC 31.1 g/dL (31.0-37.0) 07/28/17 07:18 RDW 16.5 % (11.5-15.5) H 07/28/17 07:18 Plt Count 363 k/uL (150-450) 07/28/17 07:18 Neutrophils % 88 % 07/28/17 07:18 Lymphocytes % 3 % 07/28/17 07:18 Monocytes % 6 % 07/28/17 07:18 Eosinophils % 1 % 07/28/17 07:18 Basophils % 0 % 07/28/17 07:18 Neutrophils # 15.8 k/uL (1.3-7.7) H 07/28/17 07:18 Lymphocytes # 0.6 k/uL (1.0-4.8) L 07/28/17 07:18 Monocytes # 1.1 k/uL (0-1.0) H 07/28/17 07:18 Eosinophils # 0.2 k/uL (0-0.7) 07/28/17 07:18 Basophils # 0.0 k/uL (0-0.2) 07/28/17 07:18 Hypochromasia Marked 07/28/17 07:18 Anisocytosis Slight 07/28/17 07:18 Sodium 134 mmol/L (137-145) L 07/28/17 08:24 Potassium 6.4 mmol/L (3.5-5.1) H* 07/28/17 08:24 Chloride 93 mmol/L (98-107) L 07/28/17 08:24 Carbon Dioxide 18 mmol/L (22-30) L 07/28/17 08:24 Anion Gap 23 mmol/L 07/28/17 08:24 BUN 50 mg/dL (7-17) H 07/28/17 08:24 Creatinine 7.98 mg/dL (0.52-1.04) H* 07/28/17 08:24 Est GFR (CKD-EPI)AfAm 6 (>60 ml/min/1.73 sqM) 07/28/17 08:24 Est GFR (CKD-EPI)NonAf 5 (>60 ml/min/1.73 sqM) 07/28/17 08:24 Glucose 299 mg/dL (74-99) H 07/28/17 08:24 POC Glucose (mg/dL) 106 mg/dL (75-99) H 07/28/17 16:53 POC Glu Labor Utilization Superintendent ID 07/28/17 16:[address] Glu mg/dL 171 07/23/17 10:00 Hemoglobin A1c 7.6 % (4.0-6.0) H 07/23/17 10:00 Plasma Lactic Acid Dougie 0.9 mmol/L (0.7-2.0) 07/28/17 10:26 Calcium 8.1 mg/dL (8.4-10.2) L 07/28/17 08:24 Phosphorus 6.2 mg/dL (2.5-4.5) H 07/26/17 12:46 Iron 42 ug/dL (50-170) L 07/26/17 12:46 TIBC 188 ug/dL (228-460) L 07/26/17 12:46 Iron Saturation 22.34 (12.00-45.00) 07/26/17 12:46 Ferritin 2119.2 ng/mL (10.0-291.0) H 07/26/17 12:46 Total Bilirubin 0.7 mg/dL (0.2-1.3) 07/28/17 08:24 AST 44 U/L (14-36) H 07/28/17 08:24 ALT 24 U/L (9-52) 07/28/17 08:24 Alkaline Phosphatase 122 U/L (38-126) 07/28/17 08:24 Ammonia <9 umol/L (<30) 07/28/17 14:16 Total Protein 6.4 g/dL (6.3-8.2) 07/28/17 08:24 Albumin 3.6 g/dL (3.5-5.0) 07/28/17 08:24 Hep Bs Antigen Non-Reactive (Non-Reactive) 07/25/17 09:23 Hep Bs Antibody Equivocal (Non-Reactive) H 07/25/17 09:23 Hep Bs Antibody, Quant 10.0 mIU/mL 07/25/17 09:23 Microbiology 07/23/17 10:00 Blood Blood Culture - Preliminary No Growth after 120 hours Assessment and Plan (1) Cat bite Narrative/Plan: 62-year-old male presents to Hospital several days after cat bite. It is noted the bite was provoked resulting in the significant cellulitis to her right foot from the multiple bites. The and was up-to-date on his vaccines. The patient received her Tdap at admit. She is evidence of the ongoing cellulitis to the foot is very painful. There is no evidence of significant fluctuance and no significant abscess at this time on the foot that can be drained. Patient is feeling antibiotic therapy and with her history of prior pathogens and the history of resistant Enterobacter we'll alter from Rocephin and metronidazole to ertapenem which should give us coverage for the usual pathogens of the Mouth as well as the potential resistant Enterobacter that she is colonized with. Silvadene wrap will be applied. Elevating the foot while she is at rest is important. Controlling her blood sugars will also be helpful in this healing process. Making sure she has adequate protein intake is also helpful. 07/24/2017 is improving but not resolved carding utility tender with current theapy improved erythema, continue invanz for the treatment, has allowed improvement without complications 07/25/2017 the patient is now had further significant improvement of the swelling and erythema to the foot. is ready for discharge to home on oral antibiotics with cefuroxime. 07/28/2017 the patient has had improvement to the right foot. The extensive swelling erythema and ascending erythema have resolved there is one small area of fluctuance which is aspirated material was sent to laboratory for culture. The patient's mental status has waxed and waned and appears to be having metabolic encephalopathy. With dialysis it is expected she will have some further improvement of her mentation. Local wound care with Silvadene is applied to the foot and elevated. Current Visit: Yes Status: Acute Code(s): W55.01XA - BITTEN BY CAT, INITIAL ENCOUNTER SNOMED Code(s): 242015985 (2) Failure of outpatient treatment Current Visit: Yes Status: Acute Code(s): Z78.9 - OTHER SPECIFIED HEALTH STATUS SNOMED Code(s): 939106371 (3) Poorly controlled type 2 diabetes mellitus Current Visit: Yes Status: Acute Code(s): E11.65 - TYPE 2 DIABETES MELLITUS WITH HYPERGLYCEMIA SNOMED Code(s): 74597343 (4) Obesity Current Visit: No Status: Acute Code(s): E66.9 - OBESITY, UNSPECIFIED SNOMED Code(s): 578568236
[2017-07-28] MEDS: ATORVASTATIN 80 MG TAB PO SCH (20:10)
[2017-07-28] MEDS: ERTAPENEM 0.5 GM in SODIUM CHLORIDE 0.9% 50 ML IVPB SCH (20:10)
[2017-07-28 21:21] LABS: Glucose,Whole Blood 99 mg/dL (75-99)
--- NOTE | 2017-07-28 21:39 | PN ---
PROGRESS NOTE Patient was seen on dialysis this morning. She has been sleepy and lethargic but arousable. All her pain medications are currently on hold. Patient is also maintained on Lexapro and Lamictal. She has not received any Ativan. On examination, blood pressure this morning was 125/60, heart rate 68 per minute. She is afebrile. EXAMINATION OF THE HEART: S1, S2. EXAMINATION OF LUNGS: Bilateral breath sounds are heard. ABDOMEN: Soft, morbidly obese. Examination of lower extremities shows right foot currently wrapped. Forefoot is wrapped. Chronic skin changes are noted. No significant edema is seen. Labs reveal potassium of 6.4 this morning. Glucose was 299. ASSESSMENT: 1. End-stage renal disease, on hemodialysis on a Friday, Friday, Friday schedule. Currently seen on dialysis, tolerating treatment well. 2. Severe hyperkalemia also associated with hyperglycemia and end-stage renal disease. Expect improvement with dialysis today. 3. Encephalopathy, most likely related to medications. Pain medications and Ativan are currently on hold. We may also need to hold the Lamictal and BuSpar in a.m. There may be some improvement post dialysis. 4. Anemia of chronic disease, maintained on Aranesp. 5. Right foot cellulitis and ulcer, maintained ertapenem. MMODL / IJN: [id number] /
[2017-07-29 02:45] LABS: Glucose,Whole Blood 186 mg/dL (75-99)
[2017-07-29 06:53] LABS: Glucose,Whole Blood 229 mg/dL (75-99)
[2017-07-29 08:52] LABS: Anisocytosis Slight; Basophils % (A) 0 %; Eosinophils # (A) 0.3 k/uL (0-0.7); Eosinophils % (A) 2 %; HCT 31.3 % (34.0-46.0); HGB 9.6 gm/dL (11.4-16.0); Hypochromasia Marked; Lymphocytes # (A) 0.6 k/uL (1.0-4.8); Lymphocytes % (A) 6 %; MCH 29.4 pg (25.0-35.0); MCHC 30.7 g/dL (31.0-37.0); MCV 95.6 fL (80.0-100.0); Macrocytosis Slight; Mean Platelet Volume 7.4; Monocytes # (A) 0.7 k/uL (0-1.0); Monocytes % (A) 6 %; Neutrophils # (A) 9.3 k/uL (1.3-7.7); Neutrophils % (A) 84 %; Platelet Count 339 k/uL (150-450); RBC 3.27 m/uL (3.80-5.40); RDW 17.3 % (11.5-15.5); WBC 11.1 k/uL (3.8-10.6)
[2017-07-29] MEDS: INSULIN ASPART 100 UNIT/ML 1 ML 10 ML VIAL SQ SCH ×7 (09:00→21:09)
[2017-07-29] MEDS: LORazepam 1 MG TAB PO SCH ×2 (09:06→20:09)
[2017-07-29 09:09] LABS: Albumin 3.3 g/dL (3.5-5.0); Calcium 8.1 mg/dL (8.4-10.2); Total Bilirubin 0.6 mg/dL (0.2-1.3)
[2017-07-29] MEDS: busPIRone HCl 5 MG TAB PO SCH ×2 (09:11→20:09)
[2017-07-29] MEDS: lamoTRIgine 100 MG TAB PO SCH ×2 (09:11→20:09)
[2017-07-29] MEDS: CALCIUM ACETATE 667 MG CAP PO SCH ×3 (09:12→16:23)
[2017-07-29] MEDS: amLODIPine 10 MG TAB PO SCH (09:21)
[2017-07-29] MEDS: ASPIRIN 81 MG PO SCH (09:21)
[2017-07-29] MEDS: FAMOTIDINE 20 MG TAB PO SCH (09:22)
[2017-07-29] MEDS: ISOSORBIDE MONONITRATE ER 30 MG TAB.ER.24H PO SCH (09:22)
[2017-07-29] MEDS: FUROSEMIDE 10 MG/ML 10 ML VIAL IV SCH (09:22)
[2017-07-29] MEDS: ESCITALOPRAM 20 MG TAB PO SCH (09:22)
[2017-07-29] MEDS: INSULIN DETEMIR 100 UNIT/ML 10 ML VIAL SQ SCH ×2 (09:28→21:09)
[2017-07-29] MEDS: HEPARIN SODIUM,PORCINE 5,000 UNIT/ML 1 ML VIAL SQ SCH ×2 (09:28→20:11)
[2017-07-29 12:02] LABS: Glucose,Whole Blood 225 mg/dL (75-99)
--- NOTE | 2017-07-29 12:51 | XR ---
EXAMINATION TYPE: XR chest 1V portable DATE OF EXAM: 07/29/2017 COMPARISON: Prior chest x-ray 04/20/2017 HISTORY: Hypoxemia TECHNIQUE: Single frontal view of the chest is obtained. FINDINGS: Patient is rotated. Lung volumes are low. Heart is enlarged. Bilateral airspace disease is present, central vascularity appears prominently. No evident pneumothorax or pleural effusion. IMPRESSION: Correlate for congestive heart failure. Pneumonia not excluded. Follow-up recommended.
--- NOTE | 2017-07-29 13:08 | CT ---
EXAMINATION TYPE: CT brain wo con DATE OF EXAM: 07/29/2017 COMPARISON: Prior CT brain 07/01/2017 HISTORY: Mental status changes. CT DLP: 900.4 mGycm Automated exposure control for dose reduction was used. Helical acquisition through the brain. FINDINGS: Low attenuation, encephalomalacia involving the left anterior temporal lobe is again noted. Cortical atrophy is seen. Periventricular white matter shows patchy low attenuation as on previous exam. Isabelle rium is intact. No evident hemorrhage. Paranasal sinuses and mastoid air cells as visualized are norm al. Inflammatory change noted in the sphenoid sinus. There are cerebral vascular calcifications. IMPRESSION: ESSENTIALLY STABLE FINDINGS. EVIDENCE OF CHRONIC SMALL VESSEL ISCHEMIA. NO ACUTE ABNORMALITIES EVIDEN T.
--- NOTE | 2017-07-29 14:35 | P.PN ---
Subjective Progress Note Date: 07/29/17 The patient is a pleasant 62-year-old female patient who sees Dr. Gar and Dr. JAE Talley as an outpatient with a past medical history significant for coronary artery disease and prior coronary artery stenting with the patient underwent stenting of the proximal left anterior descending artery as well as ramus intermedius in April 2014, diabetes type 2, end stage renal disease on hemodialysis Friday, as well as dyslipidemia She presented to the emergency room secondary Bite that happened 07/17/2017, currently the her domesticated cat was trying to get out of her apartment and went into another hallway and as the patient was trying to leave her home she tried collecting the And rushed into the hallway at the end of it, her chest wall brushed theNakedwer wheelchair navigation stick propelling the forward to full speed Trapping the cat Into the wall crushing it . the cat Started biting the patient's right foot approximately 8-9 times and was subsequently red inflamed swollen painful. She was started antibiotic when seen in the ER the next day, for which she filled the prescription 4 days prior to admission. The patient was subsequently seen by Dr. Goel in the office 3 days ago for another antibiotic however the antibiotics to expensive for her to get, and when she woke up this morning, the foot was significantly red swollen and very painful blistery, now it has redness involving the dorsum off the right foot metatarsal region, affecting the first toe, and below the ankles both medical lateral. There is no ulcers or open wound, however there are puncture swain noted, between the first and second metatarsal region approximately 3 cm patient was subsequently admitted for cellulitis of the foot with abscess formation, x-rays were done, TD vaccination the ER, and was admitted because of Dr. Chin. Patient was started on Rocephin patient has penicillin ALLERGY 07/24: Patient has been seen by Dr. Chin with recommendations to change antibiotics to ertapenem and Silvadene wrap to the right foot. Patient's white count is normal, she has been afebrile. Dr. Dennison consult changed to [facility]. Edema and redness to the right foot is improved from yesterday. Blood sugars are running 75-119. BUN is 52 and creatinine 7.61. Patient is followed by Dr. Talley for hemodialysis. HD for today as she missed a treatment and then resume usual schedule for tomorrow. 07/25: Patient has been seen by orthopedics with no plan for surgical intervention at this time and continue Silvadene cream and IV antibiotics. Patient is continued on ertapenem per Dr. Chin. Hemodialysis today and patient will resume her normal schedule as an outpatient on Friday. Patient continues to have tenderness although wound area is improved. Anticipate discharge home tomorrow.. 07/26. Patient examined bedside. Continues to have significant lower extremity pain along with swelling. Patient was seen by me in the clinic, the swelling appears to be worse as compared to last examination. Continue on ertapenem per Dr. Chin. We'll hold patient's discharge till Friday. Patient denies any abdominal pain, nausea, vomiting, chest pain or breathing difficulty 07/27 Patient appears very drowsyon exam, hasnot got morphine for the past 2 days. Glucose this morning 70 and there is a possibility that patient bolused her twice as patient is confused. COnfusion could be secondary to hypoglycemia. Insulin drip stopped and switched to levemir 10 units BID and 5 untis with meals. 07/28: Patient remains lethargic but improving and she is receiving hemodialysis. Patient does answer questions. She complains of feeling tired. Vital signs have been stable. White count jumped up to 17.9. Lactic acid came back at 0.9. Blood culture was obtained. She has been afebrile. Repeat labs also show potassium 6.4, BUN 15 creatinine 7.98. 07/29: Patient continues to be quite lethargic. She is able to open her eyes to verbal stimuli and answers simple questions. She doses off quickly. Temperature max is been 100.6 and patient received Tylenol. She did have a soft bowel movement this morning. No diarrhea was noted. Patient was unable take her morning medications this patient therapy consult added. We are adding in consult with neurology, CAT scan of the brain, chest x-ray, blood culture. Dr. Chin been updated and he has added and cefuroxime IV piggyback and discontinued ertapenem. Objective - Vital Signs Vital signs: Vital Signs Temp 100.1 F H 07/29/17 08:32 Pulse 74 07/29/17 06:15 Resp 20 07/29/17 06:15 BP 127/60 07/29/17 06:15 Pulse Ox 98 07/29/17 06:15 Intake & Output 07/28/17 07/29/17 07/29/17 18:59 06:59 18:59 Intake Total 325 Output Total 1 Balance 324 Weight 113.8 kg Intake: Oral 325 Output: Stool 1 Other: # Voids 0 0 # Bowel Movements 1 - Exam General appearance: cooperative, no acute distress, obese, drowsy - EENT Eyes: anicteric sclerae, EOMI, PERRLA, normal appearance ENT: NA/AT, normal oropharynx - Neck Neck: no lymphadenopathy, normal ROM, no other, no rigidity, no stridor, no thyromegaly - Respiratory Respiratory: bilateral: CTA, negative: diminished, dullness, rales, rhonchi, wheezing, prolonged expiration - Cardiovascular Rhythm: regular Heart sounds: normal: S1, S2 Abnormal Heart Sounds: no systolic murmur, no diastolic murmur, no rub, no S3 Gallop, no S4 Gallop, no click, no other - Gastrointestinal General gastrointestinal: normal bowel sounds, soft - Integumentary Integumentary: cellulitis (Right dorsum flexural surface, involving the entire dorsum of the foot and the first toe base, and below the ankles is fluctuant 3 centimeter between the first and second metatarsal measuring 3 cm), decreased turgor, normal pulses - Neurologic Neurologic: CNII-XII intact - Musculoskeletal Musculoskeletal: gait normal, strength equal bilaterally - Psychiatric Psychiatric: O x's 3, drowsy - Labs CBC & Chem 7: 07/29/17 08:04 07/29/17 08:04 Labs: Abnormal Lab Results - Last 24 Hours (Table) 07/28/17 07/29/17 07/29/17 Range/Units 16:53 02:41 06:51 WBC (3.8-10.6) k/uL RBC (3.80-5.40) m/uL Hgb (11.4-16.0) gm/dL Hct (34.0-46.0) % MCHC (31.0-37.0) g/dL RDW (11.5-15.5) % Neutrophils # (1.3-7.7) k/uL Lymphocytes # (1.0-4.8) k/uL Chloride (98-107) mmol/L BUN (7-17) mg/dL Creatinine (0.52-1.04) mg/dL Glucose (74-99) mg/dL POC Glucose (mg/dL) 106 H 186 H 229 H (75-99) mg/dL Calcium (8.4-10.2) mg/dL AST (14-36) U/L Total Protein (6.3-8.2) g/dL Albumin (3.5-5.0) g/dL 07/29/17 07/29/17 07/29/17 Range/Units 08:04 08:04 11:59 WBC 11.1 H (3.8-10.6) k/uL RBC 3.27 L (3.80-5.40) m/uL Hgb 9.6 L (11.4-16.0) gm/dL Hct 31.3 L (34.0-46.0) % MCHC 30.7 L (31.0-37.0) g/dL RDW 17.3 H (11.5-15.5) % Neutrophils # 9.3 H (1.3-7.7) k/uL Lymphocytes # 0.6 L (1.0-4.8) k/uL Chloride 96 L (98-107) mmol/L BUN 33 H (7-17) mg/dL Creatinine 5.64 H* (0.52-1.04) mg/dL Glucose 238 H (74-99) mg/dL POC Glucose (mg/dL) 225 H (75-99) mg/dL Calcium 8.1 L (8.4-10.2) mg/dL AST 41 H (14-36) U/L Total Protein 6.0 L (6.3-8.2) g/dL Albumin 3.3 L (3.5-5.0) g/dL Microbiology - Last 24 Hours (Table) 07/23/17 10:00 Blood Culture - Final Blood No Growth after 144 hours 07/28/17 14:34 Gram Stain - Preliminary Foot - Right Wound Culture - Preliminary 07/28/17 14:34 Anaerobic Culture - Preliminary Foot - Right Assessment and Plan Plan: 1. Right foot Cellulitis after an animal bite (cat), domesticated 07/17/2017 with abscess formation second metatarsals, x-rays failed to reveal any osteomyelitis without any foreign body or subcutaneous emphysema, consult with Dr. Chin appreciated. Antibiotics changed to Ertapenem. Consult with Dr. Dennison for I&D changed to [facility]. No surgical intervention planned. Dr. Chin will address home antibiotics. 2. CAD: Post PCI with angioplasty and stent to stent placement or primary this year had been seeing cardiology Dr. DOLLY Jc regular basis . D she is to continue on double antiplatelet agents statins and beta blockers. 3 end-stage chronic kidney disease on hemodialysis 3 times a week consult nephrology continue dialysis as outpatient to resume treatment as scheduled Friday schedule. 4 type 2 diabetes on insulin pump: Continue insulin via pump continue Accu-Chek with sliding scales coverage as well. 5 hyperlipidemia: Continue Lipitor at 40 mg daily changes were made. 6 asthma/COPD: Continue Pulmicort along with DuoNeb 4 times a day. 7 hypothyroidism: Continue levothyroxine with 50 g daily. 8. Known history off anxiety and depression are stable on Lexapro and BuSpar along with Clonopin no changes were made 9 GERD/GI prophylaxis: Continue Pepcid 20 mg daily 10. Hypertensive cardiac vessel disease on amlodipine 10 mg daily Lasix 80 mg twice a day Imdur 30 mg daily 11 Chronic pain syndrome: Resume hydrocodone 12 Acute metabolic encephalopathy likley secondary to hypoglycemia and decreased clearance of opiods due to ESRD. hold any opiote. If needed tylenol 3 as needed for pain. Consult admitted for neurology. CAT scan of the brain, blood culture added. Dr. Chin has changed antibiotics from ertapenem to IV piggyback cefuroxime. DVT prophylaxis Pepcid GI prophylaxis Discharge plan: Home with [facility]. Patient may require subacute rehab. We'll plan to add an PT and OT tomorrow the patient's mentation is improved. Impression and plan of care have been directed as dictated by the signing physician. Emely Contreras nurse practitioner acting as scribe for signing physician.
[2017-07-29] MEDS: SILVER sulfADIAZINE Cream 400 GM 1 APPLIC APPLIC TOPICAL SCH ×2 (16:16→20:12)
[2017-07-29] MEDS: CEFUROXIME 1,500 MG in SODIUM CHLORIDE 0.9% 50 ML IVPB SCH (16:21)
[2017-07-29] MEDS: CLOPIDOGREL 75 MG TAB PO SCH (16:21)
[2017-07-29 16:29] LABS: Amorphous Sediment,Urine Rare /hpf; Appearance,Urine Cloudy (Clear); Bacteria,Urine Occasional /hpf; Bilirubin,Urine Negative (Negative); Blood,Urine Trace (Negative); Color,Urine Light Red; Glucose,Urine (UA) Negative (Negative); Ketones,Urine Trace (Negative); Leukocyte Esterase,Urine Large (Negative); Nitrite,Urine Negative (Negative); Protein,Urine 1+ (Negative); Specific Gravity,Urine 1.017 (1.001-1.035); Squamous Epithelial Cell,Urine <1 /hpf (0-4); Urobilinogen,Urine <2.0 mg/dL (<2.0); WBC,Urine 6 /hpf (0-5)
--- NOTE | 2017-07-29 16:40 | PN ---
PROGRESS NOTE The patient is seen for followup for end-stage renal disease. She remains quite lethargic and sleepy, but is arousable easily. The patient was dialyzed yesterday. She has not received any pain medication and her other medications including the Lexapro and the BuSpar has been held today as well. On examination today, blood pressure was 127/60, heart rate 74 per minute. Patient has a temp of 100.6 degrees Fahrenheit. Examination of the heart S1, S2. Examination of the lungs bilateral breath sounds are heard. Abdomen is soft, morbidly obese. Examination of the lower extremity shows the right foot to be currently wrapped. LABS: Show sodium 141, potassium 5.0, hemoglobin 9.6 g/dL. ASSESSMENT: 1. End-stage renal disease on hemodialysis. Patient will be scheduled for hemodialysis in a.m. 2. Altered mentation, possibly related to underlying infection and medications. Her pain medications and psych medications are on hold. We will dialyze her again tomorrow. 3. Right foot cellulitis followed by a cat bite, maintained on cefuroxime and being followed by ID. 4. Anemia of chronic disease, currently on Aranesp. 5. Low-grade fever, most likely related to underlying foot cellulitis. PLAN: Hemodialysis in a.m. Continue antibiotics. Continue to hold off on Lexapro, BuSpar, Lamictal and Ativan. MMODL / IJN: [id number] /
[2017-07-29 17:04] LABS: Glucose,Whole Blood 203 mg/dL (75-99)
[2017-07-29] MEDS: ATORVASTATIN 80 MG TAB PO SCH (20:09)
[2017-07-29 20:50] LABS: Glucose,Whole Blood 145 mg/dL (75-99)
--- NOTE | 2017-07-29 22:30 | P.PN ---
Subjective Progress Note Date: 07/29/17 62-year-old female who suffers from superobesity, coronary artery disease, diabetes mellitus type 2 on insulin pump and chronic pain syndrome presents to Hospital after an injury to her right foot. The patient relates that she normally uses a power wheelchair. She does have a pet cat. Apparently the cat got out of her apartment and was going down the court or. She attempted to use a wheelchair to the cat off for many able to go down a different [place]. She went to reach for the cat and her breast. The control bar in the wheelchair jumped forward pinning the cat between the wall in the wheelchair. It was able to bite her foot multiple times before she was able to become cognizant enough to back the wheelchair off of the cat. Fortunately the cat was not seriously injured, and the patient relates a cat does have its vaccines. The patient was treated the outpatient setting and with her ALLERGIES are treated with ciprofloxacin and despite that he has had no improvement because it was admitted to hospital antibiotics with Rocephin and metronidazole were begun, she was seen by surgery without the need for surgical debridement at this time. However failing antibiotic therapy and constantly was admitted. The foot is painful swollen red and warm to touch. She believes she's had a low-grade fever but no chills or rigors. Her blood sugars have also been harder to control. 07/24/2017 improved today less pain and swelling but still on mS as needed. 07/25/2017 patient is improved today. The foot has shown improved swelling is improved having no difficulty with antibiotic therapy for the cat bite to the right foot. 07/28/2017 patient is evidence of some improvements to her right foot but has had some alteration of her mental status. She's more encephalopathic. She'll return is arousable and does indicate with the observer rapidly falls back to sleep. She has been evaluated by nephrology and after hemodialysis to be rapid improvement of her neurological status. Possibly metabolic in nature. 07/29/2017 patient's mental status remains poor. Further workup has been initiated. With the poor mental status was concern that ertapenem could be causing some difficulties and is constant and has been transitioned to cefuroxime to complete the treatment of the infection from the cat bite to the right foot. Objective - Vital Signs Vital signs: Vital Signs Temp 97.9 F 07/29/17 15:00 Pulse 73 07/29/17 15:00 Resp 16 07/29/17 15:00 BP 135/62 07/29/17 15:00 Pulse Ox 91 L 07/29/17 15:00 Intake & Output 07/29/17 07/29/17 07/30/17 06:59 18:59 06:59 Intake Total 325 Output Total 1 100 Balance 324 -100 Weight 113.8 kg 113.8 kg Intake: Oral 325 Output: Urine 100 Stool 1 Other: # Voids 0 1 # Bowel Movements 1 2 - Exam 62-year-old woman with superobesity is somewhat uncomfortable HEENT: Anicteric conjunctiva are pink and moist nasal mucosa grossly intact without significant lesions, there is no thrush. Neck: The neck is supple without significant lymphadenopathy or thyromegaly. Lungs: Good bilateral air entry without significant crackles or wheezing. There is no significant bronchial sounds. There is no egophony or dullness. Heart: Regular rate and rhythm with an audible S1-S2, no S3 no S4. There is no significant murmur click or rub, PMI was nondisplaced. Abdomen: Obese Positive bowel sounds soft and nontender without palpable masses or organomegaly. There was no guarding or rebound. Extremities: The upper extremities have excellent pulses they are symmetric, no significant petechiae or telangiectasia. No splinter hemorrhages were noted. The bilateral lower extremities show evidence of the healing ecchymosis of the bilateral knees from her fall about a month ago. Does have evidence of some residual swelling and fluid to the right prepatellar area. He has not very tender to touch it is not warm at that site. The right foot however is very swollen compared to the left. There is the multiple healing bite swain without evidence of drainage, the dense erythema has has markedly improved. The swelling is also markedly improved. The area of fluctuance that was drained yesterday has not recurred. Not very tender. There is not a significant amount of ascending lymphangitis. And there is no tender lymphadenopathy into the right groin. No other abnormal lymph nodes are noted either. Neuro: Arousable poorly communicating today. - Labs CBC & Chem 7: 07/29/17 08:04 07/29/17 08:04 Labs: Abnormal Lab Results - Last 24 Hours (Table) 05/07/29/17 07/29/17 Range/Units 02:41 06:51 08:04 WBC 11.1 H (3.8-10.6) k/uL RBC 3.27 L (3.80-5.40) m/uL Hgb 9.6 L (11.4-16.0) gm/dL Hct 31.3 L (34.0-46.0) % MCHC 30.7 L (31.0-37.0) g/dL RDW 17.3 H (11.5-15.5) % Neutrophils # 9.3 H (1.3-7.7) k/uL Lymphocytes # 0.6 L (1.0-4.8) k/uL Chloride (98-107) mmol/L BUN (7-17) mg/dL Creatinine (0.52-1.04) mg/dL Glucose (74-99) mg/dL POC Glucose (mg/dL) 186 H 229 H (75-99) mg/dL Calcium (8.4-10.2) mg/dL AST (14-36) U/L Total Protein (6.3-8.2) g/dL Albumin (3.5-5.0) g/dL Urine Appearance (Clear) Urine Protein (Negative) Urine Ketones (Negative) Urine Blood (Negative) Ur Leukocyte Esterase (Negative) Urine WBC (0-5) /hpf Amorphous Sediment (None) /hpf Urine Bacteria (None) /hpf 07/29/17 07/29/17 07/29/17 Range/Units 08:04 11:59 16:00 WBC (3.8-10.6) k/uL RBC (3.80-5.40) m/uL Hgb (11.4-16.0) gm/dL Hct (34.0-46.0) % MCHC (31.0-37.0) g/dL RDW (11.5-15.5) % Neutrophils # (1.3-7.7) k/uL Lymphocytes # (1.0-4.8) k/uL Chloride 96 L (98-107) mmol/L BUN 33 H (7-17) mg/dL Creatinine 5.64 H* (0.52-1.04) mg/dL Glucose 238 H (74-99) mg/dL POC Glucose (mg/dL) 225 H (75-99) mg/dL Calcium 8.1 L (8.4-10.2) mg/dL AST 41 H (14-36) U/L Total Protein 6.0 L (6.3-8.2) g/dL Albumin 3.3 L (3.5-5.0) g/dL Urine Appearance Cloudy H (Clear) Urine Protein 1+ H (Negative) Urine Ketones Trace H (Negative) Urine Blood Trace H (Negative) Ur Leukocyte Esterase Large H (Negative) Urine WBC 6 H (0-5) /hpf Amorphous Sediment Rare H (None) /hpf Urine Bacteria Occasional H (None) /hpf 07/29/17 07/29/17 Range/Units 16:56 20:45 WBC (3.8-10.6) k/uL RBC (3.80-5.40) m/uL Hgb (11.4-16.0) gm/dL Hct (34.0-46.0) % MCHC (31.0-37.0) g/dL RDW (11.5-15.5) % Neutrophils # (1.3-7.7) k/uL Lymphocytes # (1.0-4.8) k/uL Chloride (98-107) mmol/L BUN (7-17) mg/dL Creatinine (0.52-1.04) mg/dL Glucose (74-99) mg/dL POC Glucose (mg/dL) 203 H 145 H (75-99) mg/dL Calcium (8.4-10.2) mg/dL AST (14-36) U/L Total Protein (6.3-8.2) g/dL Albumin (3.5-5.0) g/dL Urine Appearance (Clear) Urine Protein (Negative) Urine Ketones (Negative) Urine Blood (Negative) Ur Leukocyte Esterase (Negative) Urine WBC (0-5) /hpf Amorphous Sediment (None) /hpf Urine Bacteria (None) /hpf Microbiology - Last 24 Hours (Table) 07/28/17 14:16 Blood Culture - Preliminary Blood No Growth after 24 hours 07/23/17 10:00 Blood Culture - Final Blood No Growth after 144 hours 07/28/17 14:34 Gram Stain - Preliminary Foot - Right Wound Culture - Preliminary 07/28/17 14:34 Anaerobic Culture - Preliminary Foot - Right Laboratory Results WBC 11.1 k/uL (3.8-10.6) H 07/29/17 08:04 RBC 3.27 m/uL (3.80-5.40) L 07/29/17 08:04 Hgb 9.6 gm/dL (11.4-16.0) L 07/29/17 08:04 Hct 31.3 % (34.0-46.0) L 07/29/17 08:04 MCV 95.6 fL (80.0-100.0) 07/29/17 08:04 MCH 29.4 pg (25.0-35.0) 07/29/17 08:04 MCHC 30.7 g/dL (31.0-37.0) L 07/29/17 08:04 RDW 17.3 % (11.5-15.5) H 07/29/17 08:04 Plt Count 339 k/uL (150-450) 07/29/17 08:04 Neutrophils % 84 % 07/29/17 08:04 Lymphocytes % 6 % 07/29/17 08:04 Monocytes % 6 % 07/29/17 08:04 Eosinophils % 2 % 07/29/17 08:04 Basophils % 0 % 07/29/17 08:04 Neutrophils # 9.3 k/uL (1.3-7.7) H 07/29/17 08:04 Lymphocytes # 0.6 k/uL (1.0-4.8) L 07/29/17 08:04 Monocytes # 0.7 k/uL (0-1.0) 07/29/17 08:04 Eosinophils # 0.3 k/uL (0-0.7) 07/29/17 08:04 Basophils # 0.0 k/uL (0-0.2) 07/29/17 08:04 Hypochromasia Marked 07/29/17 08:04 Anisocytosis Slight 07/29/17 08:04 Macrocytosis Slight 07/29/17 08:04 Sodium 141 mmol/L (137-145) 07/29/17 08:04 Potassium 5.0 mmol/L (3.5-5.1) 07/29/17 08:04 Chloride 96 mmol/L (98-107) L 07/29/17 08:04 Carbon Dioxide 22 mmol/L (22-30) 07/29/17 08:04 Anion Gap 23 mmol/L 07/29/17 08:04 BUN 33 mg/dL (7-17) H 07/29/17 08:04 Creatinine 5.64 mg/dL (0.52-1.04) H* 07/29/17 08:04 Est GFR (CKD-EPI)AfAm 9 (>60 ml/min/1.73 sqM) 07/29/17 08:04 Est GFR (CKD-EPI)NonAf 7 (>60 ml/min/1.73 sqM) 07/29/17 08:04 Glucose 238 mg/dL (74-99) H 07/29/17 08:04 POC Glucose (mg/dL) 145 mg/dL (75-99) H 07/29/17 20:45 POC Glu [employer] Developer ID Angela Arreguin 07/29/17 20:[address] Glu mg/dL 171 07/23/17 10:00 Hemoglobin A1c 7.6 % (4.0-6.0) H 07/23/17 10:00 Plasma Lactic Acid Dougie 0.9 mmol/L (0.7-2.0) 07/28/17 10:26 Calcium 8.1 mg/dL (8.4-10.2) L 07/29/17 08:04 Phosphorus 6.2 mg/dL (2.5-4.5) H 07/26/17 12:46 Iron 42 ug/dL (50-170) L 07/26/17 12:46 TIBC 188 ug/dL (228-460) L 07/26/17 12:46 Iron Saturation 22.34 (12.00-45.00) 07/26/17 12:46 Ferritin 2119.2 ng/mL (10.0-291.0) H 07/26/17 12:46 Total Bilirubin 0.6 mg/dL (0.2-1.3) 07/29/17 08:04 AST 41 U/L (14-36) H 07/29/17 08:04 ALT 27 U/L (9-52) 07/29/17 08:04 Alkaline Phosphatase 112 U/L (38-126) 07/29/17 08:04 Ammonia <9 umol/L (<30) 07/28/17 14:16 Total Protein 6.0 g/dL (6.3-8.2) L 07/29/17 08:04 Albumin 3.3 g/dL (3.5-5.0) L 07/29/17 08:04 Urine Color Light Red 07/29/17 16:00 Urine Appearance Cloudy (Clear) H 07/29/17 16:00 Urine pH 5.0 (5.0-8.0) 07/29/17 16:00 Ur Specific Perrin 1.017 (1.001-1.035) 07/29/17 16:00 Urine Protein 1+ (Negative) H 07/29/17 16:00 Urine Glucose (UA) Negative (Negative) 07/29/17 16:00 Urine Ketones Trace (Negative) H 07/29/17 16:00 Urine Blood Trace (Negative) H 07/29/17 16:00 Urine Nitrite Negative (Negative) 07/29/17 16:00 Urine Bilirubin Negative (Negative) 07/29/17 16:00 Urine Urobilinogen <2.0 mg/dL (<2.0) 07/29/17 16:00 Ur Leukocyte Esterase Large (Negative) H 07/29/17 16:00 Urine WBC 6 /hpf (0-5) H 07/29/17 16:00 Ur Squamous Epith Cells <1 /hpf (0-4) 07/29/17 16:00 Amorphous Sediment Rare /hpf (None) H 07/29/17 16:00 Urine Bacteria Occasional /hpf (None) H 07/29/17 16:00 Hep Bs Antigen Non-Reactive (Non-Reactive) 07/25/17 09:23 Hep Bs Antibody Equivocal (Non-Reactive) H 07/25/17 09:23 Hep Bs Antibody, Quant 10.0 mIU/mL 07/25/17 09:23 Microbiology 07/28/17 14:16 Blood Blood Culture - Preliminary No Growth after 24 hours 07/23/17 10:00 Blood Blood Culture - Final No Growth after 144 hours 07/28/17 14:34 Foot - Right Gram Stain - Preliminary 07/28/17 14:34 Foot - Right Wound Culture - Preliminary 07/28/17 14:34 Foot - Right Anaerobic Culture - Preliminary Assessment and Plan (1) Cat bite Narrative/Plan: 62-year-old male presents to Hospital several days after cat bite. It is noted the bite was provoked resulting in the significant cellulitis to her right foot from the multiple bites. The and was up-to-date on his vaccines. The patient received her Tdap at admit. She is evidence of the ongoing cellulitis to the foot is very painful. There is no evidence of significant fluctuance and no significant abscess at this time on the foot that can be drained. Patient is feeling antibiotic therapy and with her history of prior pathogens and the history of resistant Enterobacter we'll alter from Rocephin and metronidazole to ertapenem which should give us coverage for the usual pathogens of the Mouth as well as the potential resistant Enterobacter that she is colonized with. Silvadene wrap will be applied. Elevating the foot while she is at rest is important. Controlling her blood sugars will also be helpful in this healing process. Making sure she has adequate protein intake is also helpful. 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 is ready for discharge to home on oral antibiotics with cefuroxime. 07/28/2017 the patient has had improvement to the right foot. The extensive swelling erythema and ascending erythema have resolved there is one small area of fluctuance which is aspirated material was sent to laboratory for culture. The patient's mental status has waxed and waned and appears to be having metabolic encephalopathy. With dialysis it is expected she will have some further improvement of her mentation. Local wound care with Silvadene is applied to the foot and elevated. 07/29/2017 patient is a history of poor mentation. The foot did have some aspiration performed and some premature was withdrawn. Cultures negative so far and has been on extensive antibiotic therapy up till now. There is concern that she is having metabolic encephalopathy that the antibiotic Invanz IV worsening. Discussed David transition to intravenous cefuroxime on a daily basis and will ensure that given postdialysis on those dialysis days. She will be monitored for improvement of her mental status and is being followed by multiple consultants. She did have a leukocytosis and is now markedly improved in the last day, the aspiration of the foot culture is in process and will further direct antibiotic therapy as needed. Current Visit: Yes Status: Acute Code(s): W55.01XA - BITTEN BY CAT, INITIAL ENCOUNTER SNOMED Code(s): 093119963 (2) Failure of outpatient treatment Current Visit: Yes Status: Acute Code(s): Z78.9 - OTHER SPECIFIED HEALTH STATUS SNOMED Code(s): 766688640 (3) Poorly controlled type 2 diabetes mellitus Current Visit: Yes Status: Acute Code(s): E11.65 - TYPE 2 DIABETES MELLITUS WITH HYPERGLYCEMIA SNOMED Code(s): 71709429 (4) Obesity Current Visit: No Status: Acute Code(s): E66.9 - OBESITY, UNSPECIFIED SNOMED Code(s): 951697336
[2017-07-30 01:46] LABS: Glucose,Whole Blood 142 mg/dL (75-99)
[2017-07-30 07:35] LABS: Glucose,Whole Blood 215 mg/dL (75-99)
[2017-07-30] MEDS: ASPIRIN 81 MG PO SCH (08:03)
[2017-07-30] MEDS: FAMOTIDINE 20 MG TAB PO SCH (08:03)
[2017-07-30] MEDS: CALCIUM ACETATE 667 MG CAP PO SCH ×3 (08:03→17:23)
[2017-07-30] MEDS: INSULIN ASPART 100 UNIT/ML 1 ML 10 ML VIAL SQ SCH ×6 (08:03→21:18)
[2017-07-30] MEDS: amLODIPine 10 MG TAB PO SCH (08:03)
[2017-07-30] MEDS: busPIRone HCl 5 MG TAB PO SCH ×2 (08:03→21:19)
[2017-07-30] MEDS: LORazepam 1 MG TAB PO SCH ×2 (08:04→21:20)
[2017-07-30] MEDS: lamoTRIgine 100 MG TAB PO SCH ×2 (08:04→21:20)
[2017-07-30] MEDS: ISOSORBIDE MONONITRATE ER 30 MG TAB.ER.24H PO SCH (08:04)
[2017-07-30] MEDS: HEPARIN SODIUM,PORCINE 5,000 UNIT/ML 1 ML VIAL SQ SCH ×2 (08:05→21:28)
[2017-07-30] MEDS: ESCITALOPRAM 20 MG TAB PO SCH (08:06)
[2017-07-30] MEDS: INSULIN DETEMIR 100 UNIT/ML 10 ML VIAL SQ SCH ×2 (08:06→21:28)
[2017-07-30] MEDS: SILVER sulfADIAZINE Cream 400 GM 1 APPLIC APPLIC TOPICAL SCH ×2 (08:06→21:28)
--- NOTE | 2017-07-30 08:56 | EEG ---
ELECTROENCEPHALOGRAM REPORT DATE OF SERVICE: 07/29/2017. REASON FOR TESTING: Altered mental status. DESCRIPTION OF THE PROCEDURE: This EEG was performed using a 21 channel digital electroencephalograph, following international 10-20 system. DESCRIPTION OF THE RECORDING: From the beginning of the tracing, and with patient's eyes closed, the background rhythm was mostly consisting of 7 Hz theta frequency in the posterior occipital leads. No obvious asymmetry is seen. Frequent muscle and movement artifacts are seen. Photic stimulation was performed with no driving response seen. No pathological waves were elicited. Hyperventilation was not performed. The patient does reach stage II of sleep during the tracing and occasional sleep spindles are seen. No epileptiform discharges were seen. Her EKG lead showed a regular rate and rhythm. INTERPRETATION: This asleep and awake EEG is abnormal due to presence of generalized slowing of the background rhythm, mostly in the theta range. This is consistent with mild encephalopathy. No epileptiform discharges were seen. The absence of epileptiform discharges does not rule out the diagnosis of epilepsy, therefore clinical correlation is recommended. MMMARQUES / IJN: [id number] /
--- NOTE | 2017-07-30 11:41 | P.PN ---
Subjective Patient is seen in follow-up for end-stage renal disease. She is maintained on hemodialysis on a Friday schedule. Patient's currently being treated with IV antibiotics for a cat bite. Currently resting in bed. Hemodynamically stable. No edema. Denies chest pain or shortness of breath. She is still quite lethargic. She falls asleep while talking. Vital signs are stable. General: The patient appeared well nourished and normally developed. HEENT: Head exam is unremarkable. Neck is without jugular venous distension. LUNGS: Lungs are clear to auscultation and percussion. Breath sounds decreased. HEART: Rate and Rhythm are regular. First and second heart sounds normal. No murmurs, rubs or gallops. ABDOMEN: Abdominal exam reveals normal bowel sounds. Non-tender and non- distended. No evidence of peritonitis. EXTREMITITES: No clubbing, cyanosis, or edema. Right foot wrapped. No obvious drainage. Objective - Vital Signs Vital signs: Vital Signs Temp 98.7 F 07/30/17 06:40 Pulse 91 07/30/17 06:40 Resp 20 07/30/17 06:40 BP 143/63 07/30/17 06:40 Pulse Ox 94 L 07/30/17 06:40 Intake & Output 07/29/17 07/30/17 07/30/17 18:59 06:59 18:59 Intake Total 150 Output Total 100 1 Balance -100 149 Weight 113.8 kg Intake: Oral 150 Output: Urine 100 Stool 1 Other: # Voids 1 0 0 # Bowel Movements 2 - Labs CBC & Chem 7: 07/29/17 08:04 07/29/17 08:04 Labs: Abnormal Lab Results - Last 24 Hours (Table) 07/29/17 07/29/17 07/29/17 Range/Units 11:59 16:00 16:56 POC Glucose (mg/dL) 225 H 203 H (75-99) mg/dL Urine Appearance Cloudy H (Clear) Urine Protein 1+ H (Negative) Urine Ketones Trace H (Negative) Urine Blood Trace H (Negative) Ur Leukocyte Esterase Large H (Negative) Urine WBC 6 H (0-5) /hpf Amorphous Sediment Rare H (None) /hpf Urine Bacteria Occasional H (None) /hpf 07/29/17 07/30/17 07/30/17 Range/Units 20:45 01:43 07:29 POC Glucose (mg/dL) 145 H 142 H 215 H (75-99) mg/dL Urine Appearance (Clear) Urine Protein (Negative) Urine Ketones (Negative) Urine Blood (Negative) Ur Leukocyte Esterase (Negative) Urine WBC (0-5) /hpf Amorphous Sediment (None) /hpf Urine Bacteria (None) /hpf Microbiology - Last 24 Hours (Table) 07/29/17 16:00 Urine Culture - Preliminary Urine,Catheterized 07/28/17 14:16 Blood Culture - Preliminary Blood No Growth after 24 hours 07/23/17 10:00 Blood Culture - Final Blood No Growth after 144 hours 07/28/17 14:34 Gram Stain - Preliminary Foot - Right Wound Culture - Preliminary Assessment and Plan Plan: Assessment: 1. End-stage renal disease maintained on hemodialysis Friday schedule. 2. Right foot cellulitis secondary to cat bite maintained on antibiotics per infectious disease recommendations. 3. Anemia of chronic kidney disease maintained on Aranesp. Iron replete. 4. Morbid obesity. 5. Hypertension with chronic kidney disease. Controlled. 6. Chronic kidney disease mineral bone disease. 7. Encephalopathy possibly related to medications particularly ativan, SSRIs. Plan: Hemodialysis today. Maintian PhosLo with meals. Patient takes Fosrenol as an outpatient which is not available in the hospital. Monitor mentation, may improve postdialysis. Brain CT revealed no acute abnormalities. EEG revealed mild encephalopathy.
[2017-07-30 11:57] LABS: Glucose,Whole Blood 177 mg/dL (75-99)
[2017-07-30 15:22] VITALS: BMI 40.4
[2017-07-30 17:41] LABS: Glucose,Whole Blood 113 mg/dL (75-99)
[2017-07-30 20:51] LABS: Glucose,Whole Blood 131 mg/dL (75-99)
[2017-07-30] MEDS: ATORVASTATIN 80 MG TAB PO SCH (21:24)
[2017-07-30] MEDS: CEFUROXIME 1,500 MG in SODIUM CHLORIDE 0.9% 50 ML IVPB SCH (21:25)
--- NOTE | 2017-07-30 21:42 | P.PN ---
Subjective Progress Note Date: 07/30/17 62-year-old female who suffers from superobesity, coronary artery disease, diabetes mellitus type 2 on insulin pump and chronic pain syndrome presents to Hospital after an injury to her right foot. The patient relates that she normally uses a power wheelchair. She does have a pet cat. Apparently the cat got out of her apartment and was going down the court or. She attempted to use a wheelchair to the cat off for many able to go down a different [place]. She went to reach for the cat and her breast. The control bar in the wheelchair jumped forward pinning the cat between the wall in the wheelchair. It was able to bite her foot multiple times before she was able to become cognizant enough to back the wheelchair off of the cat. Fortunately the cat was not seriously injured, and the patient relates a cat does have its vaccines. The patient was treated the outpatient setting and with her ALLERGIES are treated with ciprofloxacin and despite that he has had no improvement because it was admitted to hospital antibiotics with Rocephin and metronidazole were begun, she was seen by surgery without the need for surgical debridement at this time. However failing antibiotic therapy and constantly was admitted. The foot is painful swollen red and warm to touch. She believes she's had a low-grade fever but no chills or rigors. Her blood sugars have also been harder to control. 07/24/2017 improved today less pain and swelling but still on mS as needed. 07/25/2017 patient is improved today. The foot has shown improved swelling is improved having no difficulty with antibiotic therapy for the cat bite to the right foot. 07/28/2017 patient is evidence of some improvements to her right foot but has had some alteration of her mental status. She's more encephalopathic. She'll return is arousable and does indicate with the observer rapidly falls back to sleep. She has been evaluated by nephrology and after hemodialysis to be rapid improvement of her neurological status. Possibly metabolic in nature. 07/29/2017 patient's mental status remains poor. Further workup has been initiated. With the poor mental status was concern that ertapenem could be causing some difficulties and is constant and has been transitioned to cefuroxime to complete the treatment of the infection from the cat bite to the right foot. 07/30/2017 patient's mental status is still poor however when highly stimulated she is able to answer questions. She does relate that she has some chronic back pain is still bothering her. She tolerated her hemodialysis well today. Objective - Vital Signs Vital signs: Vital Signs Temp 98.5 F 07/30/17 15:00 Pulse 67 07/30/17 15:00 Resp 16 07/30/17 15:00 BP 143/66 07/30/17 15:00 Pulse Ox 95 07/30/17 15:00 Intake & Output 07/30/17 07/30/17 07/31/17 06:59 18:59 06:59 Intake Total 150 Output Total 1 Balance 149 Weight 113.8 kg 113.8 kg Intake: Oral 150 Output: Stool 1 Other: # Voids 0 0 - Exam 62-year-old woman with superobesity is somewhat uncomfortable HEENT: Anicteric conjunctiva are pink and moist nasal mucosa grossly intact without significant lesions, there is no thrush. Neck: The neck is supple without significant lymphadenopathy or thyromegaly. Lungs: Good bilateral air entry without significant crackles or wheezing. There is no significant bronchial sounds. There is no egophony or dullness. Heart: Regular rate and rhythm with an audible S1-S2, no S3 no S4. There is no significant murmur click or rub, PMI was nondisplaced. Abdomen: Obese Positive bowel sounds soft and nontender without palpable masses or organomegaly. There was no guarding or rebound. Extremities: The upper extremities have excellent pulses they are symmetric, no significant petechiae or telangiectasia. No splinter hemorrhages were noted. The bilateral lower extremities show evidence of the healing ecchymosis of the bilateral knees from her fall about a month ago. Does have evidence of some residual swelling and fluid to the right prepatellar area. He has not very tender to touch it is not warm at that site. The right foot however is very swollen compared to the left. There is the multiple healing bite swain without evidence of drainage, the dense erythema has has markedly improved. The swelling is also markedly improved. The area of fluctuance that was drained yesterday has not recurred. Not very tender. There is not a significant amount of ascending lymphangitis. And there is no tender lymphadenopathy into the right groin. No other abnormal lymph nodes are noted either. Neuro: Arousable poorly communicating today. - Labs CBC & Chem 7: 07/29/17 08:04 07/29/17 08:04 Labs: Abnormal Lab Results - Last 24 Hours (Table) 07/30/17 07/30/17 07/30/17 Range/Units 01:43 07:29 11:55 POC Glucose (mg/dL) 142 H 215 H 177 H (75-99) mg/dL 07/30/17 07/30/17 Range/Units 17:39 20:49 POC Glucose (mg/dL) 113 H 131 H (75-99) mg/dL Microbiology - Last 24 Hours (Table) 07/28/17 14:16 Blood Culture - Preliminary Blood No Growth after 48 hours 07/28/17 14:34 Gram Stain - Final Foot - Right Wound Culture - Final 07/29/17 13:36 Blood Culture - Preliminary Blood No Growth after 24 hours 07/28/17 14:34 Anaerobic Culture - Preliminary Foot - Right 07/29/17 16:00 Urine Culture - Preliminary Urine,Catheterized Laboratory Results WBC 11.1 k/uL (3.8-10.6) H 07/29/17 08:04 RBC 3.27 m/uL (3.80-5.40) L 07/29/17 08:04 Hgb 9.6 gm/dL (11.4-16.0) L 07/29/17 08:04 Hct 31.3 % (34.0-46.0) L 07/29/17 08:04 MCV 95.6 fL (80.0-100.0) 07/29/17 08:04 MCH 29.4 pg (25.0-35.0) 07/29/17 08:04 MCHC 30.7 g/dL (31.0-37.0) L 07/29/17 08:04 RDW 17.3 % (11.5-15.5) H 07/29/17 08:04 Plt Count 339 k/uL (150-450) 07/29/17 08:04 Neutrophils % 84 % 07/29/17 08:04 Lymphocytes % 6 % 07/29/17 08:04 Monocytes % 6 % 07/29/17 08:04 Eosinophils % 2 % 07/29/17 08:04 Basophils % 0 % 07/29/17 08:04 Neutrophils # 9.3 k/uL (1.3-7.7) H 07/29/17 08:04 Lymphocytes # 0.6 k/uL (1.0-4.8) L 07/29/17 08:04 Monocytes # 0.7 k/uL (0-1.0) 07/29/17 08:04 Eosinophils # 0.3 k/uL (0-0.7) 07/29/17 08:04 Basophils # 0.0 k/uL (0-0.2) 07/29/17 08:04 Hypochromasia Marked 07/29/17 08:04 Anisocytosis Slight 07/29/17 08:04 Macrocytosis Slight 07/29/17 08:04 Sodium 141 mmol/L (137-145) 07/29/17 08:04 Potassium 5.0 mmol/L (3.5-5.1) 07/29/17 08:04 Chloride 96 mmol/L (98-107) L 07/29/17 08:04 Carbon Dioxide 22 mmol/L (22-30) 07/29/17 08:04 Anion Gap 23 mmol/L 07/29/17 08:04 BUN 33 mg/dL (7-17) H 07/29/17 08:04 Creatinine 5.64 mg/dL (0.52-1.04) H* 07/29/17 08:04 Est GFR (CKD-EPI)AfAm 9 (>60 ml/min/1.73 sqM) 07/29/17 08:04 Est GFR (CKD-EPI)NonAf 7 (>60 ml/min/1.73 sqM) 07/29/17 08:04 Glucose 238 mg/dL (74-99) H 07/29/17 08:04 POC Glucose (mg/dL) 131 mg/dL (75-99) H 07/30/17 20:49 POC Glu [employer] ID Madina Bennett 07/30/17 20:[address] Glu mg/dL 171 07/23/17 10:00 Hemoglobin A1c 7.6 % (4.0-6.0) H 07/23/17 10:00 Plasma Lactic Acid Dougie 0.9 mmol/L (0.7-2.0) 07/28/17 10:26 Calcium 8.1 mg/dL (8.4-10.2) L 07/29/17 08:04 Phosphorus 6.2 mg/dL (2.5-4.5) H 07/26/17 12:46 Iron 42 ug/dL (50-170) L 07/26/17 12:46 TIBC 188 ug/dL (228-460) L 07/26/17 12:46 Iron Saturation 22.34 (12.00-45.00) 07/26/17 12:46 Ferritin 2119.2 ng/mL (10.0-291.0) H 07/26/17 12:46 Total Bilirubin 0.6 mg/dL (0.2-1.3) 07/29/17 08:04 AST 41 U/L (14-36) H 07/29/17 08:04 ALT 27 U/L (9-52) 07/29/17 08:04 Alkaline Phosphatase 112 U/L (38-126) 07/29/17 08:04 Ammonia <9 umol/L (<30) 07/28/17 14:16 Total Protein 6.0 g/dL (6.3-8.2) L 07/29/17 08:04 Albumin 3.3 g/dL (3.5-5.0) L 07/29/17 08:04 Urine Color Light Red 07/29/17 16:00 Urine Appearance Cloudy (Clear) H 07/29/17 16:00 Urine pH 5.0 (5.0-8.0) 07/29/17 16:00 Ur Specific [place] 1.017 (1.001-1.035) 07/29/17 16:00 Urine Protein 1+ (Negative) H 07/29/17 16:00 Urine Glucose (UA) Negative (Negative) 07/29/17 16:00 Urine Ketones Trace (Negative) H 07/29/17 16:00 Urine Blood Trace (Negative) H 07/29/17 16:00 Urine Nitrite Negative (Negative) 07/29/17 16:00 Urine Bilirubin Negative (Negative) 07/29/17 16:00 Urine Urobilinogen <2.0 mg/dL (<2.0) 07/29/17 16:00 Ur Leukocyte Esterase Large (Negative) H 07/29/17 16:00 Urine WBC 6 /hpf (0-5) H 07/29/17 16:00 Ur Squamous Epith Cells <1 /hpf (0-4) 07/29/17 16:00 Amorphous Sediment Rare /hpf (None) H 07/29/17 16:00 Urine Bacteria Occasional /hpf (None) H 07/29/17 16:00 Hep Bs Antigen Non-Reactive (Non-Reactive) 07/25/17 09:23 Hep Bs Antibody Equivocal (Non-Reactive) H 07/25/17 09:23 Hep Bs Antibody, Quant 10.0 mIU/mL 07/25/17 09:23 Microbiology 07/28/17 14:16 Blood Blood Culture - Preliminary No Growth after 48 hours 07/28/17 14:34 Foot - Right Gram Stain - Final 07/28/17 14:34 Foot - Right Wound Culture - Final 07/29/17 13:36 Blood Blood Culture - Preliminary No Growth after 24 hours 07/28/17 14:34 Foot - Right Anaerobic Culture - Preliminary 07/29/17 16:00 Urine,Catheterized Urine Culture - Preliminary 07/23/17 10:00 Blood Blood Culture - Final No Growth after 144 hours Assessment and Plan (1) Cat bite Narrative/Plan: 62-year-old male presents to Hospital several days after cat bite. It is noted the bite was provoked resulting in the significant cellulitis to her right foot from the multiple bites. The and was up-to-date on his vaccines. The patient received her Tdap at admit. She is evidence of the ongoing cellulitis to the foot is very painful. There is no evidence of significant fluctuance and no significant abscess at this time on the foot that can be drained. Patient is feeling antibiotic therapy and with her history of prior pathogens and the history of resistant Enterobacter we'll alter from Rocephin and metronidazole to ertapenem which should give us coverage for the usual pathogens of the Mouth as well as the potential resistant Enterobacter that she is colonized with. Silvadene wrap will be applied. Elevating the foot while she is at rest is important. Controlling her blood sugars will also be helpful in this healing process. Making sure she has adequate protein intake is also helpful. 07/24/2017 is improving but not resolved strapping machine tender with current theapy improved erythema, continue invanz for the treatment, has allowed improvement without complications 07/25/2017 the patient is now had further significant improvement of the swelling and erythema to the foot. is ready for discharge to home on oral antibiotics with cefuroxime. 07/28/2017 the patient has had improvement to the right foot. The extensive swelling erythema and ascending erythema have resolved there is one small area of fluctuance which is aspirated material was sent to laboratory for culture. The patient's mental status has waxed and waned and appears to be having metabolic encephalopathy. With dialysis it is expected she will have some further improvement of her mentation. Local wound care with Silvadene is applied to the foot and elevated. 07/29/2017 patient is a history of poor mentation. The foot did have some aspiration performed and some premature was withdrawn. Cultures negative so far and has been on extensive antibiotic therapy up till now. There is concern that she is having metabolic encephalopathy that the antibiotic Invanz IV worsening. transition to intravenous cefuroxime on a daily basis and will ensure that given postdialysis on those dialysis days. She will be monitored for improvement of her mental status and is being followed by multiple consultants. She did have a leukocytosis and is now markedly improved in the last day, the aspiration of the foot culture is in process and will further direct antibiotic therapy as needed. 07/30/2017 patient's mental status is slightly improved today with significant amount of stimulation. Dialysis was without difficulties. He has noted a foot exam reveals the significant improvement that continues daily. The swelling erythema I resolved. The fluctuant area is resolved status post aspiration. The culture is negative. We'll continue antibiotics with cefuroxime and monitor. When improve will be transitioned to oral antibiotic therapy to continue another 7 days of treatment. We'll expect over the next 24-48 hrs. if the Invanz was the factor responsible for metabolic encephalopathy that this should start to clear especially after dialysis today. Current Visit: Yes Status: Acute Code(s): W55.01XA - BITTEN BY CAT, INITIAL ENCOUNTER SNOMED Code(s): 319240494 (2) Failure of outpatient treatment Current Visit: Yes Status: Acute Code(s): Z78.9 - OTHER SPECIFIED HEALTH STATUS SNOMED Code(s): 036116288 (3) Poorly controlled type 2 diabetes mellitus Current Visit: Yes Status: Acute Code(s): E11.65 - TYPE 2 DIABETES MELLITUS WITH HYPERGLYCEMIA SNOMED Code(s): 37106463 (4) Obesity Current Visit: No Status: Acute Code(s): E66.9 - OBESITY, UNSPECIFIED SNOMED Code(s): 300506787
[2017-07-31 01:57] LABS: Glucose,Whole Blood 195 mg/dL (75-99)
[2017-07-31 07:46] LABS: Glucose,Whole Blood 220 mg/dL (75-99)
[2017-07-31] MEDS: INSULIN ASPART 100 UNIT/ML 1 ML 10 ML VIAL SQ SCH ×4 (08:01→21:46)
[2017-07-31] MEDS: CALCIUM ACETATE 667 MG CAP PO SCH ×3 (08:02→17:36)
[2017-07-31] MEDS: ESCITALOPRAM 20 MG TAB PO SCH (08:02)
[2017-07-31] MEDS: amLODIPine 10 MG TAB PO SCH (08:02)
[2017-07-31] MEDS: busPIRone HCl 5 MG TAB PO SCH ×3 (08:02→22:06)
[2017-07-31] MEDS: ASPIRIN 81 MG PO SCH (08:02)
[2017-07-31] MEDS: FAMOTIDINE 20 MG TAB PO SCH (08:03)
[2017-07-31] MEDS: lamoTRIgine 100 MG TAB PO SCH ×3 (08:03→22:06)
[2017-07-31] MEDS: INSULIN DETEMIR 100 UNIT/ML 10 ML VIAL SQ SCH ×2 (08:03→21:54)
[2017-07-31] MEDS: ISOSORBIDE MONONITRATE ER 30 MG TAB.ER.24H PO SCH (08:03)
[2017-07-31] MEDS: HEPARIN SODIUM,PORCINE 5,000 UNIT/ML 1 ML VIAL SQ SCH ×2 (08:03→21:55)
[2017-07-31] MEDS: LORazepam 1 MG TAB PO SCH ×2 (08:04→22:06)
[2017-07-31] MEDS: SILVER sulfADIAZINE Cream 400 GM 1 APPLIC APPLIC TOPICAL SCH ×2 (08:04→21:55)
[2017-07-31] MEDS ORDERED: INSULIN DETEMIR 100 UNIT/ML 10 ML VIAL SQ STA (09:16)
--- NOTE | 2017-07-31 10:27 | CONS ---
CONSULTATION DATE OF CONSULTATION: 07/30/2017 CHIEF COMPLAINT: Encephalopathy. HISTORY OF PRESENT ILLNESS: Mrs. Marrufo is a 62-year-old female who is being evaluated today on 07/30/2017 by the neurology service per the request of Dr. Estrella for encephalopathy. The patient was brought into [facility] Emergency Room with complaints of right leg swelling and redness. The patient had an incident at home where her cat bit her in the right foot on 07/17/2017. She was tried on oral antibiotics but the symptoms progressively got worse. She was started on IV antibiotics and admitted for further management. Dr. Chin is following the patient. The patient also has history of end- stage renal disease and is on hemodialysis. During this admission, the patient was given morphine for her pain and she has been drowsy since then. Analgesics have been held at this time. A neurology consultation was obtained due to this drowsiness. An EEG was done yesterday and I did review the study which did show evidence of mild encephalopathy. A CT scan of the brain was done, which showed small-vessel ischemic changes. Her CBC today showed mild leukocytosis at 11.1 and anemia with a hemoglobin of 9.6 and hematocrit of 31%. Her comprehensive metabolic profile showed elevated BUN and creatinine at 33 and 5.64 respectively. Her glucose was elevated at 238 and her calcium was low at 8.1. At the time of my evaluation, the patient is lying in her bed and getting hemodialysis. She is drowsy. She is arousable, but drifts right back to sleep. PAST MEDICAL HISTORY: End-stage renal disease, coronary artery disease, dialysis, dyslipidemia, diabetes, hypertension, history of myocardial infarction, osteoarthritis, hypothyroidism, ischemic cardiomyopathy, history of MRSA, bipolar disorder, depression, anxiety disorder, history of adenoidectomy, appendectomy, cholecystectomy, hysterectomy, coronary artery stent placement, tonsillectomy, cataract surgery, fistula placement, insulin pump placement. SOCIAL HISTORY: There is no history of any tobacco, alcohol or drug use. FAMILY HISTORY: Positive for heart disease, diabetes, hypertension, and dyslipidemia. HOME MEDICATIONS: Reviewed in the chart. ALLERGIES: ADHESIVE TAPE, METFORMIN, PENICILLIN, ORAL and IV DYE. REVIEW OF SYSTEMS: Unable to obtain due to patient's altered mental status and drowsiness. PHYSICAL EXAM: Vital signs show a temperature of 98.7, pulse 91, respiration 20, blood pressure 143/63, pulse ox at 94% on 3 L nasal cannula. GENERAL APPEARANCE: The patient is an obese female, who appears to be drowsy. HEENT: Normocephalic, atraumatic, no obvious facial asymmetry is seen. NECK: Supple with no masses felt. CARDIOVASCULAR: Regular rate and rhythm. ABDOMEN: Nontender, nondistended. Extremities showed edema. Her right foot is bandaged. NEUROLOGICAL EXAM: The patient is quite drowsy. She is slightly arousable with verbal stimuli and is more arousable with painful stimuli. She is oriented to person. She follows simple commands. She does move her extremities, but appears to have generalized weakness, lower extremities more than upper extremities. Sensory exam was difficult to perform due to her drowsy state. No obvious facial asymmetry is seen. No tremors or seizure-like activity is noticed. IMPRESSION: 1. Altered mental status. 2. Multifactorial encephalopathy. 3. Cellulitis. 4. Renal failure. 5. Medication adverse effect. RECOMMENDATION: The patient continues to appear encephalopathic and this is likely multifactorial. She likely has toxic encephalopathy given the morphine use, infectious encephalopathy given recurrent infection, and metabolic encephalopathy with her renal failure. Dr. Chin is following the patient and she continues to be on antibiotics. I recommend discontinuing all analgesics, which have been held at this point. The patient is currently undergoing hemodialysis and I expect her mental status to improve. Her CT scan of the brain showed no intracranial abnormalities except for small vessel ischemic changes. Continue neuro checks. I will continue to follow with you. Further recommendations to follow. Thank you for allowing me to participate in the care of your patient. If you have any questions, please feel free to contact me. MMTODDL / IJN: [id number] /
[2017-07-31 11:54] LABS: Glucose,Whole Blood 215 mg/dL (75-99)
--- NOTE | 2017-07-31 12:12 | P.PN ---
Subjective Patient is seen in follow-up for end-stage renal disease. She is maintained on hemodialysis on a Friday schedule. Patient's currently being treated with IV antibiotics for a cat bite. Currently resting in bed. Hemodynamically stable. No edema. Denies chest pain or shortness of breath. She is still confused. Vital signs are stable. General: The patient appeared well nourished and normally developed. HEENT: Head exam is unremarkable. Neck is without jugular venous distension. LUNGS: Lungs are clear to auscultation and percussion. Breath sounds decreased. HEART: Rate and Rhythm are regular. First and second heart sounds normal. No murmurs, rubs or gallops. ABDOMEN: Abdominal exam reveals normal bowel sounds. Non-tender and non- distended. No evidence of peritonitis. EXTREMITITES: No clubbing, cyanosis, or edema. Right foot wrapped. No obvious drainage. Objective - Vital Signs Vital signs: Vital Signs Temp 99.3 F 07/31/17 05:30 Pulse 73 07/31/17 05:30 Resp 16 07/31/17 05:30 BP 130/58 07/31/17 05:30 Pulse Ox 94 L 07/31/17 05:30 Intake & Output 07/30/17 07/31/17 07/31/17 18:59 06:59 18:59 Intake Total 50 Output Total 1 Balance 49 Weight 113.8 kg Intake: Oral 50 Output: Stool 1 Other: # Voids 0 0 # Bowel Movements 1 - Labs CBC & Chem 7: 07/29/17 08:04 07/29/17 08:04 Labs: Abnormal Lab Results - Last 24 Hours (Table) 07/30/17 07/30/17 07/31/17 Range/Units 17:39 20:49 01:52 POC Glucose (mg/dL) 113 H 131 H 195 H (75-99) mg/dL 07/31/17 07/31/17 Range/Units 06:56 11:49 POC Glucose (mg/dL) 220 H 215 H (75-99) mg/dL Microbiology - Last 24 Hours (Table) 07/29/17 16:00 Urine Culture - Final Urine,Catheterized 07/28/17 14:16 Blood Culture - Preliminary Blood No Growth after 48 hours 07/28/17 14:34 Gram Stain - Final Foot - Right Wound Culture - Final 07/29/17 13:36 Blood Culture - Preliminary Blood No Growth after 24 hours 07/28/17 14:34 Anaerobic Culture - Preliminary Foot - Right Assessment and Plan Plan: Assessment: 1. End-stage renal disease maintained on hemodialysis Friday schedule. 2. Right foot cellulitis secondary to cat bite maintained on antibiotics per infectious disease recommendations. 3. Anemia of chronic kidney disease maintained on Aranesp. Iron replete. 4. Morbid obesity. 5. Hypertension with chronic kidney disease. Controlled. 6. Chronic kidney disease mineral bone disease. 7. Encephalopathy possibly related to medications particularly ativan, SSRIs, codeine. Plan: Hemodialysis tomorrow. Maintian PhosLo with meals. Patient takes Fosrenol as an outpatient which is not available in the hospital. D/c codeine, may use plain tylenol. Brain CT revealed no acute abnormalities. EEG revealed mild encephalopathy.
--- NOTE | 2017-07-31 12:34 | P.PN ---
Subjective Progress Note Date: 07/30/17 The patient is a pleasant 62-year-old female patient who sees Dr. Gar and Dr. JAE Talley as an outpatient with a past medical history significant for coronary artery disease and prior coronary artery stenting with the patient underwent stenting of the proximal left anterior descending artery as well as ramus intermedius in April 2014, diabetes type 2, end stage renal disease on hemodialysis Friday, as well as dyslipidemia She presented to the emergency room secondary Bite that happened 07/17/2017, currently the her domesticated cat was trying to get out of her apartment and went into another hallway and as the patient was trying to leave her home she tried collecting the And rushed into the hallway at the end of it, her chest wall brushed the[employer] wheelchair navigation stick propelling the forward to full speed Trapping the cat Into the wall crushing it . the cat Started biting the patient's right foot approximately 8-9 times and was subsequently red inflamed swollen painful. She was started antibiotic when seen in the ER the next day, for which she filled the prescription 4 days prior to admission. The patient was subsequently seen by Dr. Goel in the office 3 days ago for another antibiotic however the antibiotics to expensive for her to get, and when she woke up this morning, the foot was significantly red swollen and very painful blistery, now it has redness involving the dorsum off the right foot metatarsal region, affecting the first toe, and below the ankles both medical lateral. There is no ulcers or open wound, however there are puncture swain noted, between the first and second metatarsal region approximately 3 cm patient was subsequently admitted for cellulitis of the foot with abscess formation, x-rays were done, TD vaccination the ER, and was admitted because of Dr. Chin. Patient was started on Rocephin patient has penicillin ALLERGY 07/24: Patient has been seen by Dr. Chin with recommendations to change antibiotics to ertapenem and Silvadene wrap to the right foot. Patient's white count is normal, she has been afebrile. Dr. Dennison consult changed to [facility]. Edema and redness to the right foot is improved from yesterday. Blood sugars are running 75-119. BUN is 52 and creatinine 7.61. Patient is followed by Dr. Talley for hemodialysis. HD for today as she missed a treatment and then resume usual schedule for tomorrow. 07/25: Patient has been seen by orthopedics with no plan for surgical intervention at this time and continue Silvadene cream and IV antibiotics. Patient is continued on ertapenem per Dr. Chin. Hemodialysis today and patient will resume her normal schedule as an outpatient on Friday. Patient continues to have tenderness although wound area is improved. Anticipate discharge home tomorrow.. 07/26. Patient examined bedside. Continues to have significant lower extremity pain along with swelling. Patient was seen by me in the clinic, the swelling appears to be worse as compared to last examination. Continue on ertapenem per Dr. Chin. We'll hold patient's discharge till Friday. Patient denies any abdominal pain, nausea, vomiting, chest pain or breathing difficulty 07/27 Patient appears very drowsyon exam, hasnot got morphine for the past 2 days. Glucose this morning 70 and there is a possibility that patient bolused her twice as patient is confused. COnfusion could be secondary to hypoglycemia. Insulin drip stopped and switched to levemir 10 units BID and 5 untis with meals. 07/28: Patient remains lethargic but improving and she is receiving hemodialysis. Patient does answer questions. She complains of feeling tired. Vital signs have been stable. White count jumped up to 17.9. Lactic acid came back at 0.9. Blood culture was obtained. She has been afebrile. Repeat labs also show potassium 6.4, BUN 15 creatinine 7.98. 07/29: Patient continues to be quite lethargic. She is able to open her eyes to verbal stimuli and answers simple questions. She doses off quickly. Temperature max is been 100.6 and patient received Tylenol. She did have a soft bowel movement this morning. No diarrhea was noted. Patient was unable take her morning medications this patient therapy consult added. We are adding in consult with neurology, CAT scan of the brain, chest x-ray, blood culture. Dr. Chin been updated and he has added and cefuroxime IV piggyback and discontinued ertapenem. 07/30: Patient remains very drowsy. She is able to state where she has an date but then falls directly back to sleep. Neurology consult and psychiatric consult have been added. EEG is showing generalized slowing of the background mostly in the theta range consistent with mild encephalopathy. No epileptiform discharges were seen. CT of the brain showed stable findings of chronic small vessel ischemia with no acute abnormalities. Chest x-ray showed correlate for heart failure. Pneumonia not excluded. Patient only ate a couple bites of food today and insulin has been held. Patient is scheduled for hemodialysis today and hopefully mental status will improve. PT was only able to get the patient knew the side of the bed. Patient unable to participate. Case management and social work case manager looking at [facility] for subacute rehab. Objective - Vital Signs Vital signs: Vital Signs Temp 98.7 F 07/30/17 06:40 Pulse 91 07/30/17 06:40 Resp 20 07/30/17 06:40 BP 143/63 07/30/17 06:40 Pulse Ox 94 L 07/30/17 06:40 Intake & Output 07/29/17 07/30/17 07/30/17 18:59 06:59 18:59 Intake Total 150 Output Total 100 1 Balance -100 149 Weight 113.8 kg Intake: Oral 150 Output: Urine 100 Stool 1 Other: # Voids 1 0 0 # Bowel Movements 2 - Exam General appearance: cooperative, no acute distress, obese, drowsy - EENT Eyes: anicteric sclerae, EOMI, PERRLA, normal appearance ENT: NA/AT, normal oropharynx - Neck Neck: no lymphadenopathy, normal ROM, no other, no rigidity, no stridor, no thyromegaly - Respiratory Respiratory: bilateral: CTA, negative: diminished, dullness, rales, rhonchi, wheezing, prolonged expiration - Cardiovascular Rhythm: regular Heart sounds: normal: S1, S2 Abnormal Heart Sounds: no systolic murmur, no diastolic murmur, no rub, no S3 Gallop, no S4 Gallop, no click, no other - Gastrointestinal General gastrointestinal: normal bowel sounds, soft - Integumentary Integumentary: cellulitis (Right dorsum flexural surface, involving the entire dorsum of the foot and the first toe base, and below the ankles is fluctuant 3 centimeter between the first and second metatarsal measuring 3 cm), decreased turgor, normal pulses - Neurologic Neurologic: CNII-XII intact - Musculoskeletal Musculoskeletal: gait normal, strength equal bilaterally - Psychiatric Psychiatric: O x's 3, drowsy - Labs CBC & Chem 7: 07/29/17 08:04 07/29/17 08:04 Labs: Abnormal Lab Results - Last 24 Hours (Table) 07/29/17 07/29/17 07/29/17 Range/Units 16:00 16:56 20:45 POC Glucose (mg/dL) 203 H 145 H (75-99) mg/dL Urine Appearance Cloudy H (Clear) Urine Protein 1+ H (Negative) Urine Ketones Trace H (Negative) Urine Blood Trace H (Negative) Ur Leukocyte Esterase Large H (Negative) Urine WBC 6 H (0-5) /hpf Amorphous Sediment Rare H (None) /hpf Urine Bacteria Occasional H (None) /hpf 07/30/17 07/30/17 07/30/17 Range/Units 01:43 07:29 11:55 POC Glucose (mg/dL) 142 H 215 H 177 H (75-99) mg/dL Urine Appearance (Clear) Urine Protein (Negative) Urine Ketones (Negative) Urine Blood (Negative) Ur Leukocyte Esterase (Negative) Urine WBC (0-5) /hpf Amorphous Sediment (None) /hpf Urine Bacteria (None) /hpf Microbiology - Last 24 Hours (Table) 07/29/17 16:00 Urine Culture - Preliminary Urine,Catheterized 07/28/17 14:16 Blood Culture - Preliminary Blood No Growth after 24 hours 07/23/17 10:00 Blood Culture - Final Blood No Growth after 144 hours 07/28/17 14:34 Gram Stain - Preliminary Foot - Right Wound Culture - Preliminary Assessment and Plan Plan: 1. Right foot Cellulitis after an animal bite (cat), domesticated 07/17/2017 with abscess formation second metatarsals, x-rays failed to reveal any osteomyelitis without any foreign body or subcutaneous emphysema, consult with Dr. Chin appreciated. Antibiotics changed to Ertapenem. Consult with Dr. Dennison for I&D changed to [facility]. No surgical intervention planned. Dr. Chin will address home antibiotics. 2. CAD: Post PCI with angioplasty and stent to stent placement or primary this year had been seeing cardiology Dr. DOLLY Jc regular basis . D she is to continue on double antiplatelet agents statins and beta blockers. 3 end-stage chronic kidney disease on hemodialysis 3 times a week consult nephrology continue dialysis as outpatient to resume treatment as scheduled Friday schedule. 4 type 2 diabetes on insulin pump: Continue insulin via pump continue Accu-Chek with sliding scales coverage as well. 5 hyperlipidemia: Continue Lipitor at 40 mg daily changes were made. 6 asthma/COPD: Continue Pulmicort along with DuoNeb 4 times a day. 7 hypothyroidism: Continue levothyroxine with 50 g daily. 8. Known history off anxiety and depression are stable on Lexapro and BuSpar along with Clonopin no changes were made 9 GERD/GI prophylaxis: Continue Pepcid 20 mg daily 10. Hypertensive cardiac vessel disease on amlodipine 10 mg daily Lasix 80 mg twice a day Imdur 30 mg daily 11 Chronic pain syndrome: Resume hydrocodone 12 Acute metabolic encephalopathy likley secondary to hypoglycemia and decreased clearance of opiods and ertapenem due to ESRD. hold any opioid. If needed tylenol 3 as needed for pain. Consult for neurology and psychiatry. Dr. Chin has changed antibiotics from ertapenem to IV piggyback cefuroxime. DVT prophylaxis Pepcid GI prophylaxis Discharge plan: [facility]. Impression and plan of care have been directed as dictated by the signing physician. Emely Contreras nurse practitioner acting as scribe for signing physician.
--- NOTE | 2017-07-31 12:41 | P.PN ---
Subjective Progress Note Date: 07/31/17 The patient is a pleasant 62-year-old female patient who sees Dr. Gar and Dr. JAE Talley as an outpatient with a past medical history significant for coronary artery disease and prior coronary artery stenting with the patient underwent stenting of the proximal left anterior descending artery as well as ramus intermedius in April 2014, diabetes type 2, end stage renal disease on hemodialysis Friday, as well as dyslipidemia She presented to the emergency room secondary Bite that happened 07/17/2017, currently the her domesticated cat was trying to get out of her apartment and went into another hallway and as the patient was trying to leave her home she tried collecting the And rushed into the hallway at the end of it, her chest wall brushed the[employer] wheelchair navigation stick propelling the forward to full speed Trapping the cat Into the wall crushing it . the cat Started biting the patient's right foot approximately 8-9 times and was subsequently red inflamed swollen painful. She was started antibiotic when seen in the ER the next day, for which she filled the prescription 4 days prior to admission. The patient was subsequently seen by Dr. Goel in the office 3 days ago for another antibiotic however the antibiotics to expensive for her to get, and when she woke up this morning, the foot was significantly red swollen and very painful blistery, now it has redness involving the dorsum off the right foot metatarsal region, affecting the first toe, and below the ankles both medical lateral. There is no ulcers or open wound, however there are puncture swain noted, between the first and second metatarsal region approximately 3 cm patient was subsequently admitted for cellulitis of the foot with abscess formation, x-rays were done, TD vaccination the ER, and was admitted because of Dr. Chin. Patient was started on Rocephin patient has penicillin ALLERGY 07/24: Patient has been seen by Dr. Chin with recommendations to change antibiotics to ertapenem and Silvadene wrap to the right foot. Patient's white count is normal, she has been afebrile. Dr. Dennison consult changed to [facility]. Edema and redness to the right foot is improved from yesterday. Blood sugars are running 75-119. BUN is 52 and creatinine 7.61. Patient is followed by Dr. Talley for hemodialysis. HD for today as she missed a treatment and then resume usual schedule for tomorrow. 07/25: Patient has been seen by orthopedics with no plan for surgical intervention at this time and continue Silvadene cream and IV antibiotics. Patient is continued on ertapenem per Dr. Chin. Hemodialysis today and patient will resume her normal schedule as an outpatient on Friday. Patient continues to have tenderness although wound area is improved. Anticipate discharge home tomorrow.. 07/26. Patient examined bedside. Continues to have significant lower extremity pain along with swelling. Patient was seen by me in the clinic, the swelling appears to be worse as compared to last examination. Continue on ertapenem per Dr. Chin. We'll hold patient's discharge till Friday. Patient denies any abdominal pain, nausea, vomiting, chest pain or breathing difficulty 07/27 Patient appears very drowsyon exam, hasnot got morphine for the past 2 days. Glucose this morning 70 and there is a possibility that patient bolused her twice as patient is confused. COnfusion could be secondary to hypoglycemia. Insulin drip stopped and switched to levemir 10 units BID and 5 untis with meals. 07/28: Patient remains lethargic but improving and she is receiving hemodialysis. Patient does answer questions. She complains of feeling tired. Vital signs have been stable. White count jumped up to 17.9. Lactic acid came back at 0.9. Blood culture was obtained. She has been afebrile. Repeat labs also show potassium 6.4, BUN 15 creatinine 7.98. 07/29: Patient continues to be quite lethargic. She is able to open her eyes to verbal stimuli and answers simple questions. She doses off quickly. Temperature max is been 100.6 and patient received Tylenol. She did have a soft bowel movement this morning. No diarrhea was noted. Patient was unable take her morning medications this patient therapy consult added. We are adding in consult with neurology, CAT scan of the brain, chest x-ray, blood culture. Dr. Chin been updated and he has added and cefuroxime IV piggyback and discontinued ertapenem. 07/30: Patient remains very drowsy. She is able to state where she has an date but then falls directly back to sleep. Neurology consult and psychiatric consult have been added. EEG is showing generalized slowing of the background mostly in the theta range consistent with mild encephalopathy. No epileptiform discharges were seen. CT of the brain showed stable findings of chronic small vessel ischemia with no acute abnormalities. Chest x-ray showed correlate for heart failure. Pneumonia not excluded. Patient only ate a couple bites of food today and insulin has been held. Patient is scheduled for hemodialysis today and hopefully mental status will improve. PT was only able to get the patient knew the side of the bed. Patient unable to participate. Case management and vp digital marketing social media and crm looking at [facility] for subacute rehab. 07/31: Patient's mental status is back to baseline. She states she is feeling exhausted. At sugars are increasing and patient is back on diet for which she can be resumed back on Levemir and Humalog. Patient may be able to be restarted on insulin pump for tomorrow. Anticipate discharge to [facility] tomorrow. Objective - Vital Signs Vital signs: Vital Signs Temp 99.3 F 07/31/17 05:30 Pulse 73 07/31/17 05:30 Resp 16 07/31/17 05:30 BP 130/58 07/31/17 05:30 Pulse Ox 94 L 07/31/17 05:30 Intake & Output 07/30/17 07/31/17 07/31/17 18:59 06:59 18:59 Intake Total 50 Output Total 1 Balance 49 Weight 113.8 kg Intake: Oral 50 Output: Stool 1 Other: # Voids 0 0 # Bowel Movements 1 - Exam General appearance: cooperative, no acute distress, obese, drowsy - EENT Eyes: anicteric sclerae, EOMI, PERRLA, normal appearance ENT: NA/AT, normal oropharynx - Neck Neck: no lymphadenopathy, normal ROM, no other, no rigidity, no stridor, no thyromegaly - Respiratory Respiratory: bilateral: CTA, negative: diminished, dullness, rales, rhonchi, wheezing, prolonged expiration - Cardiovascular Rhythm: regular Heart sounds: normal: S1, S2 Abnormal Heart Sounds: no systolic murmur, no diastolic murmur, no rub, no S3 Gallop, no S4 Gallop, no click, no other - Gastrointestinal General gastrointestinal: normal bowel sounds, soft - Integumentary Integumentary: cellulitis (Right dorsum flexural surface, involving the entire dorsum of the foot and the first toe base, and below the ankles is fluctuant 3 centimeter between the first and second metatarsal measuring 3 cm), decreased turgor, normal pulses - Neurologic Neurologic: CNII-XII intact - Musculoskeletal Musculoskeletal: gait normal, strength equal bilaterally - Psychiatric Psychiatric: Alert and O x's 3, drowsy - Labs CBC & Chem 7: 07/29/17 08:04 07/29/17 08:04 Labs: Abnormal Lab Results - Last 24 Hours (Table) 07/30/17 07/30/17 07/30/17 Range/Units 11:55 17:39 20:49 POC Glucose (mg/dL) 177 H 113 H 131 H (75-99) mg/dL 07/31/17 07/31/17 Range/Units 01:52 06:56 POC Glucose (mg/dL) 195 H 220 H (75-99) mg/dL Microbiology - Last 24 Hours (Table) 07/29/17 16:00 Urine Culture - Final Urine,Catheterized 07/28/17 14:16 Blood Culture - Preliminary Blood No Growth after 48 hours 07/28/17 14:34 Gram Stain - Final Foot - Right Wound Culture - Final 07/29/17 13:36 Blood Culture - Preliminary Blood No Growth after 24 hours 07/28/17 14:34 Anaerobic Culture - Preliminary Foot - Right Assessment and Plan Plan: 1. Right foot Cellulitis after an animal bite (cat), domesticated 07/17/2017 with abscess formation second metatarsals, x-rays failed to reveal any osteomyelitis without any foreign body or subcutaneous emphysema, consult with Dr. Chin appreciated. Antibiotics changed to Ertapenem and subsequently to cefuroxime. Consult with Dr. Dennison for I&D changed to [facility]. No surgical intervention planned. Dr. Chin will address home antibiotics. 2. CAD: Post PCI with angioplasty and stent to stent placement or primary this year had been seeing cardiology Dr. DOLLY Jc regular basis . D she is to continue on double antiplatelet agents statins and beta blockers. 3 end-stage chronic kidney disease on hemodialysis 3 times a week consult nephrology continue dialysis as outpatient to resume treatment as scheduled Friday schedule. 4 type 2 diabetes on insulin pump: Continue insulin via pump continue Accu-Chek with sliding scales coverage as well. 5 hyperlipidemia: Continue Lipitor at 40 mg daily changes were made. 6 asthma/COPD: Continue Pulmicort along with DuoNeb 4 times a day. 7 hypothyroidism: Continue levothyroxine with 50 g daily. 8. Known history off anxiety and depression are stable on Lexapro and BuSpar along with Clonopin no changes were made 9 GERD/GI prophylaxis: Continue Pepcid 20 mg daily 10. Hypertensive cardiac vessel disease on amlodipine 10 mg daily Lasix 80 mg twice a day Imdur 30 mg daily 11 Chronic pain syndrome: Resume hydrocodone 12 Acute metabolic encephalopathy likley secondary to hypoglycemia and decreased clearance of opiods and ertapenem due to ESRD. hold any opioid. If needed tylenol 3 as needed for pain. Consult for neurology and psychiatry. Dr. Chin has changed antibiotics from ertapenem to IV piggyback cefuroxime. DVT prophylaxis Pepcid GI prophylaxis Discharge plan: [facility]. Impression and plan of care have been directed as dictated by the signing physician. Emely Contreras nurse practitioner acting as scribe for signing physician.
--- NOTE | 2017-07-31 13:13 | P.CN ---
Psychiatric Consult - . Consult date: 07/31/17 Consult:: 07/31/17 13:01 Identification: Patient is a 62-year-old female who presented to the emergency room with cellulitis after her cat bit her on the leg. Reason for Consult: Psychosis History of Present Illness: Patient's chart was reviewed, patient was seen and interviewed in her room no family members were present. Patient was a poor historian, she initially told me that she had a mixed drink last night and is in some people's house. She states that she was brought here by Kd and can't tell me why. She states that she was at a bank appraiser yesterday and then responded to a patient in the room who was talking to staff. Patient did agree that she had bipolar disorder and does see a psychiatrist and a counselor but she was unaware of what medication she was taking. Per the record the patient is on BuSpar 15 mg twice a day, Lamictal 100 in the morning one or 50 at bedtime, Lexapro 20 mg daily and Ativan 1 mg twice a day. She stated that her takes care of her medication. Patient was unable to tell me why she was in the hospital but did agree with me that she was in a hospital. When I told her that she had, because of the cat bite she was able to state that her cat did bite her and that she went to see the doctors in outpatient but her leg was getting worse. She agreed that her thinking was a little confused, that she is having difficulty with her memory and if I stopped talking for too long she drifted off to sleep. Patient was easily aroused however but was unable to give a history. She was unable to give me a history of her symptoms of bipolar disorder, but did know that she was seeing a psychiatrist in taking medications. Past Psychiatric History: Patient stated that she does have admissions in the past but is unaware of how many or where. She states that she is being treated for bipolar disorder Past Medical/Surgical History: Patient has a history of end-stage renal disease and is currently on hemodialysis, coronary artery disease status post stent placement, hyperlipidemia, diabetes, hypertension, hypothyroidism she is status post myocardial infarction, status post appendectomy, cholecystectomy, SUKHDEV/BSO Family History: Unable to obtain Social History: Patient stated she was been for 35 years and has no children, she then started to talk about the fact that her is getting ready to divorce her. Patient was unable to give me any further information regarding her prior work history Substance Use History: Unable to obtain Mental status: Appearance/Attitude: Patient is obese, lying in a hospital bed, she was easily aroused but would drift back to sleep if I stopped talking Behavior: Patient did not display any psychomotor agitation or retardation Speech/Language: Patient's speech was of normal volume and rhythm and she was coherent but not relevant Thought Process: Patient's responses at times were not relevant to the question Thought Content: Patient denied auditory hallucinations, stated that she was not seeing things and she stated that she was at a people's house, she thought she had had a mixed drink last night she stated that her was getting ready to divorce her Suicidal/Homicidal Ideation: Patient denied suicidal or homicidal ideation this time Sensorium/Cognition: Patient sensorium was clouded, she was oriented to her name but not to location, situation, date Mood/Affect: Patient's mood was pleasant and her affect was appropriate to her mood Insight/Judgment: Patient's insight and judgment are impaired at this time Assessment: Per the record the patient does have a history and per the patient of being treated for a bipolar disorder and being followed by an outpatient psychiatrist as well as a therapist. It is unclear if the patient has been hospitalized in the past and how many times and when her last hospitalization was. Patient presents with a clouded sensorium, she is oriented only to person , her responses at times not relevant to the question. Patient is not agitated and her medications have been held due to her increased lethargy the last several days. Patient has been receiving dialysis and was dialyzed yesterday. Patient was hospitalized for worsening cellulitis secondary to a cat bite. Per staff the patient has been cooperating with them, her cellulitis is improving and her antibiotics were recently changed. Patient is not currently psychotic, there is no evidence of a manic process or a depressive process at this time. Patient is presenting with symptoms of a delirium, multifactorial due to her multiple medical problems. Diagnosis: Delirium, multifactorial Plan: Patient has a history of bipolar disorder, she is currently not psychotic but is delirious. Patient's current psychotropic medication is being held due to her lethargy, patient's BuSpar, Lamictal, Lexapro and be restarted once the patient's delirium has cleared. Patient was also taking Ativan 1 mg twice a day and the patient has not been receiving any Ativan since July 26. She is been off of it for 5 days and see no reason to restart this as this will only add to her confusion. As the patient is not agitated I would not recommend beginning any antipsychotic medication but as her medical condition is stabilized her delirium should improve. Once the patient's delirium has resolved her BuSpar, Lexapro and Lamictal can be restarted. Patient does not require admission to an inpatient psychiatric unit and I will sign off the case if there are any further questions or concerns please don't hesitate to contact me. 07/31/17 13:11
--- NOTE | 2017-07-31 16:20 | P.PN ---
Subjective Progress Note Date: 07/31/17 Patient is an 62-year-old female who is being followed by the neurology service for encephalopathy. Patient came to [facility] after being bitten on the right foot by her On 07/17/2017. Patient had been on oral antibiotics without improvement. Patient is being followed by infectious disease. Patient does have history of end-stage renal disease on hemodialysis. Patient had been given morphine for pain which made her drowsy. Analgesics were held and neurology was consult. EEG was done which showed evidence of mild encephalopathy. A CT of the brain was done which showed small vessel ischemic changes. Mentation has been appropriate since analgesics have been held. At the time of my evaluation, patient's resting comfortably in bed and appears to be in no acute distress. Objective - Vital Signs Vital signs: Vital Signs Temp 98.8 F 07/31/17 14:49 Pulse 69 07/31/17 14:49 Resp 14 07/31/17 14:49 BP 130/59 07/31/17 14:49 Pulse Ox 91 L 07/31/17 14:49 Intake & Output 07/30/17 07/31/17 07/31/17 18:59 06:59 18:59 Intake Total 50 Output Total 1 Balance 49 Weight 113.8 kg Intake: Oral 50 Output: Stool 1 Other: # Voids 0 0 1 # Bowel Movements 1 1 - Exam PHYSICAL EXAM: GENERAL APPEARANCE: Patient is a well-developed, female who appears to be in no acute distress. HEENT: Normocephalic, atraumatic, no facial asymmetry is seen. Neck is supple with no masses felt. CARDIOVASCULAR: Regular rate and rhythm. ABDOMEN: Nontender, nondistended. EXTREMITIES: Show no edema or clubbing. NEUROLOGICAL EXAM: Patient is awake, alert, and oriented 3. Speech and language are normal. Strength is 5/5 in bilateral upper extremities and 4/5 in bilateral lower extremities. Sensory exam is normal to light touch in all 4 extremities. No facial asymmetry is seen on cranial nerve testing. No tremors or seizure-like activity noted. - Labs CBC & Chem 7: 07/29/17 08:04 07/29/17 08:04 Labs: Abnormal Lab Results - Last 24 Hours (Table) 07/30/17 07/30/17 07/31/17 Range/Units 17:39 20:49 01:52 POC Glucose (mg/dL) 113 H 131 H 195 H (75-99) mg/dL 07/31/17 07/31/17 Range/Units 06:56 11:49 POC Glucose (mg/dL) 220 H 215 H (75-99) mg/dL Microbiology - Last 24 Hours (Table) 07/29/17 13:36 Blood Culture - Preliminary Blood No Growth after 48 hours 07/29/17 16:00 Urine Culture - Final Urine,Catheterized 07/28/17 14:16 Blood Culture - Preliminary Blood No Growth after 48 hours 07/28/17 14:34 Gram Stain - Final Foot - Right Wound Culture - Final 07/28/17 14:34 Anaerobic Culture - Preliminary Foot - Right Assessment and Plan Plan: Impression: 1. Altered mental status 2. Multifactorial encephalopathy 3. Cellulitis 4. Renal failure 5. Medication adverse effect Recommendation: The patient's mentation has significantly improved. She is awake alert and conversant. As you recall, EEG did show mild encephalopathy. Most likely she has toxic encephalopathy from the morphine in infectious encephalopathy given her infection. Her chronic renal failure may be contributing to metabolic encephalopathy as well. Dr. Chin is following the patient regarding her antibiotics. Again, CT of the brain did not show any intracranial abnormalities except for small vessel ischemic changes. Patient is on aspirin 81 mg by mouth daily. Continue neurological checks. No further neurological workup is needed at this time. I will continue to follow with you on an as-needed basis. Feel free to call with any questions or concerns. I performed an examination of the patient and discussed the management with the ELECTRICAL POWER ENGINEER. I have reviewed the ELECTRICAL POWER ENGINEER notes and agree with the findings and plan of care.
[2017-07-31 17:31] LABS: Glucose,Whole Blood 176 mg/dL (75-99)
[2017-07-31] MEDS: CLOPIDOGREL 75 MG TAB PO SCH (17:36)
[2017-07-31 21:53] LABS: Glucose,Whole Blood 205 mg/dL (75-99)
[2017-07-31] MEDS: ATORVASTATIN 80 MG TAB PO SCH (21:55)
[2017-07-31] MEDS: CEFUROXIME 1,500 MG in SODIUM CHLORIDE 0.9% 50 ML IVPB SCH (21:59)
[2017-08-01 01:32] VITALS: PULSE 65; RESP 18
[2017-08-01 07:23] LABS: Glucose,Whole Blood 159 mg/dL (75-99)
[2017-08-01 07:24] VITALS: BP 148/55; TEMP 99.1
[2017-08-01] MEDS: busPIRone HCl 5 MG TAB PO SCH (07:55)
[2017-08-01] MEDS: lamoTRIgine 100 MG TAB PO SCH (07:55)
[2017-08-01] MEDS: LORazepam 1 MG TAB PO SCH (07:56)
[2017-08-01] MEDS: INSULIN ASPART 100 UNIT/ML 1 ML 10 ML VIAL SQ SCH ×2 (08:01→11:34)
[2017-08-01] MEDS: CALCIUM ACETATE 667 MG CAP PO SCH (08:01)
[2017-08-01] MEDS: FAMOTIDINE 20 MG TAB PO SCH (08:02)
[2017-08-01] MEDS: INSULIN DETEMIR 100 UNIT/ML 10 ML VIAL SQ SCH (08:02)
[2017-08-01] MEDS: HEPARIN SODIUM,PORCINE 5,000 UNIT/ML 1 ML VIAL SQ SCH (08:02)
[2017-08-01] MEDS: SILVER sulfADIAZINE Cream 400 GM 1 APPLIC APPLIC TOPICAL SCH (08:02)
[2017-08-01] MEDS: amLODIPine 10 MG TAB PO SCH (08:02)
[2017-08-01] MEDS: ISOSORBIDE MONONITRATE ER 30 MG TAB.ER.24H PO SCH (08:02)
[2017-08-01] MEDS: ASPIRIN 81 MG PO SCH (08:02)
[2017-08-01] MEDS: ESCITALOPRAM 20 MG TAB PO SCH (08:02)
[2017-08-01 11:35] LABS: Glucose,Whole Blood 97 mg/dL (75-99)
--- NOTE | 2017-08-01 13:33 | P.PN ---
Subjective Patient is seen in follow-up for end-stage renal disease. She is maintained on hemodialysis on a Friday schedule. Currently seen while undergoing hemodialysis. Patient's currently being treated with IV antibiotics for a cat bite. Hemodynamically stable. No edema. Denies chest pain or shortness of breath. She is still confused. Vital signs are stable. General: The patient appeared well nourished and normally developed. HEENT: Head exam is unremarkable. Neck is without jugular venous distension. LUNGS: Lungs are clear to auscultation and percussion. Breath sounds decreased. HEART: Rate and Rhythm are regular. First and second heart sounds normal. No murmurs, rubs or gallops. ABDOMEN: Abdominal exam reveals normal bowel sounds. Non-tender and non- distended. No evidence of peritonitis. EXTREMITITES: No clubbing, cyanosis, or edema. Right foot wrapped. No obvious drainage. Objective - Vital Signs Vital signs: Vital Signs Temp 99.1 F 08/01/17 07:00 Pulse 65 08/01/17 07:00 Resp 18 08/01/17 07:00 BP 148/55 08/01/17 07:00 Pulse Ox 95 08/01/17 07:00 Intake & Output 07/31/17 08/01/17 08/01/17 18:59 06:59 18:59 Intake Total 500 Balance 500 Intake: Oral 500 Other: Voiding Method Incontinent Incontinent # Voids 1 0 # Bowel Movements 1 1 - Labs CBC & Chem 7: 07/29/17 08:04 07/29/17 08:04 Labs: Abnormal Lab Results - Last 24 Hours (Table) 07/31/17 07/31/17 08/01/17 Range/Units 17:16 21:44 07:10 POC Glucose (mg/dL) 176 H 205 H 159 H (75-99) mg/dL Microbiology - Last 24 Hours (Table) 07/28/17 14:16 Blood Culture - Preliminary Blood No Growth after 72 hours 07/29/17 13:36 Blood Culture - Preliminary Blood No Growth after 48 hours Assessment and Plan Plan: Assessment: 1. End-stage renal disease maintained on hemodialysis Friday schedule. 2. Right foot cellulitis secondary to cat bite maintained on antibiotics per infectious disease recommendations. 3. Anemia of chronic kidney disease maintained on Aranesp. Iron replete. 4. Morbid obesity. 5. Hypertension with chronic kidney disease. Controlled. 6. Chronic kidney disease mineral bone disease. 7. Encephalopathy possibly related to medications particularly ativan, SSRIs, codeine. She has been evaluated by psychiatry as well as neurology. Plan: Currently undergoing hemodialysis. Next treatment on Friday. Maintian PhosLo with meals. Patient takes Fosrenol as an outpatient which is not available in the hospital. D/c'ed codeine, may use plain tylenol. Brain CT revealed no acute abnormalities. EEG revealed mild encephalopathy.
--- NOTE | 2017-08-01 13:47 | P.DS ---
Providers Date of admission: 07/23/17 11:55 Expected date of discharge: 08/01/17 Attending physician: Luiza Estrella Consults: 07/23/17 11:54 Consult Physician Stat Consulting Provider: Josué Chin Consult Reason/Comments: Cat Bite, infected right foot, failed outpatient treatment Do you want consulting provider notified?: Yes 07/23/17 12:03 Consult Physician Stat Consulting Provider: Cherie Talley Consult Reason/Comments: Dialysis Do you want consulting provider notified?: Yes 07/24/17 14:17 Consult Physician Routine Consulting Provider: Kevan Bryson Consult Reason/Comments: cat bite right foot Do you want consulting provider notified?: Yes 07/30/17 13:04 Consult Physician Routine Consulting Provider: Di Glover Consult Reason/Comments: psychosis Do you want consulting provider notified?: Yes 07/30/17 13:08 Consult Physician Routine Consulting Provider: Jenny Pillai Consult Reason/Comments: encephalopathy Do you want consulting provider notified?: Yes Primary care physician: Kimberli Gar [facility] Course: The patient is a pleasant 62-year-old female patient who sees Dr. Gar and Dr. JAE Talley as an outpatient with a past medical history significant for coronary artery disease and prior coronary artery stenting with the patient underwent stenting of the proximal left anterior descending artery as well as ramus intermedius in April 2014, diabetes type 2, end stage renal disease on hemodialysis Friday, as well as dyslipidemia She presented to the emergency room secondary Bite that happened 07/17/2017, currently the her domesticated cat was trying to get out of her apartment and went into another hallway and as the patient was trying to leave her home she tried collecting the And rushed into the hallway at the end of it, her chest wall brushed the[employer] wheelchair navigation stick propelling the forward to full speed Trapping the cat Into the wall crushing it . the cat Started biting the patient's right foot approximately 8-9 times and was subsequently red inflamed swollen painful. She was started antibiotic when seen in the ER the next day, for which she filled the prescription 4 days prior to admission. The patient was subsequently seen by Dr. Goel in the office 3 days ago for another antibiotic however the antibiotics to expensive for her to get, and when she woke up this morning, the foot was significantly red swollen and very painful blistery, now it has redness involving the dorsum off the right foot metatarsal region, affecting the first toe, and below the ankles both medical lateral. There is no ulcers or open wound, however there are puncture swain noted, between the first and second metatarsal region approximately 3 cm patient was subsequently admitted for cellulitis of the foot with abscess formation, x-rays were done, TD vaccination the ER, and was admitted because of Dr. Chin. Patient was started on Rocephin patient has penicillin ALLERGY 07/24: Patient has been seen by Dr. Chin with recommendations to change antibiotics to ertapenem and Silvadene wrap to the right foot. Patient's white count is normal, she has been afebrile. Dr. Dennison consult changed to [facility]. Edema and redness to the right foot is improved from yesterday. Blood sugars are running 75-119. BUN is 52 and creatinine 7.61. Patient is followed by Dr. Talley for hemodialysis. HD for today as she missed a treatment and then resume usual schedule for tomorrow. 07/25: Patient has been seen by orthopedics with no plan for surgical intervention at this time and continue Silvadene cream and IV antibiotics. Patient is continued on ertapenem per Dr. Chin. Hemodialysis today and patient will resume her normal schedule as an outpatient on Friday. Patient continues to have tenderness although wound area is improved. Anticipate discharge home tomorrow.. 07/26. Patient examined bedside. Continues to have significant lower extremity pain along with swelling. Patient was seen by me in the clinic, the swelling appears to be worse as compared to last examination. Continue on ertapenem per Dr. Chin. We'll hold patient's discharge till Friday. Patient denies any abdominal pain, nausea, vomiting, chest pain or breathing difficulty 07/27 Patient appears very drowsyon exam, hasnot got morphine for the past 2 days. Glucose this morning 70 and there is a possibility that patient bolused her twice as patient is confused. COnfusion could be secondary to hypoglycemia. Insulin drip stopped and switched to levemir 10 units BID and 5 untis with meals. 07/28: Patient remains lethargic but improving and she is receiving hemodialysis. Patient does answer questions. She complains of feeling tired. Vital signs have been stable. White count jumped up to 17.9. Lactic acid came back at 0.9. Blood culture was obtained. She has been afebrile. Repeat labs also show potassium 6.4, BUN 15 creatinine 7.98. 07/29: Patient continues to be quite lethargic. She is able to open her eyes to verbal stimuli and answers simple questions. She doses off quickly. Temperature max is been 100.6 and patient received Tylenol. She did have a soft bowel movement this morning. No diarrhea was noted. Patient was unable take her morning medications this patient therapy consult added. We are adding in consult with neurology, CAT scan of the brain, chest x-ray, blood culture. Dr. Chin been updated and he has added and cefuroxime IV piggyback and discontinued ertapenem. 07/30: Patient remains very drowsy. She is able to state where she has an date but then falls directly back to sleep. Neurology consult and psychiatric consult have been added. EEG is showing generalized slowing of the background mostly in the theta range consistent with mild encephalopathy. No epileptiform discharges were seen. CT of the brain showed stable findings of chronic small vessel ischemia with no acute abnormalities. Chest x-ray showed correlate for heart failure. Pneumonia not excluded. Patient only ate a couple bites of food today and insulin has been held. Patient is scheduled for hemodialysis today and hopefully mental status will improve. PT was only able to get the patient knew the side of the bed. Patient unable to participate. Case management and social worker psychiatric looking at [facility] for subacute rehab. 07/31: Patient's mental status is back to baseline. She states she is feeling exhausted. At sugars are increasing and patient is back on diet for which she can be resumed back on Levemir and Humalog. Patient may be able to be restarted on insulin pump for tomorrow. Anticipate discharge to [facility] tomorrow. 08/01: Patient remains with improved mentation and better baseline. She is receiving hemodialysis at this time. Plan is for discharge to [facility] for rehab. We'll plan to continue her on Levemir and NovoLog and she can be transitioned to insulin pump at the retirement. Drug and he has recommended continuing PhosLo with meals. Patient has been seen by psychiatry and we will not resume Ativan. Patient will be placed back on her anti-depressive medications. Patient will be discharged to [facility] today in stable condition. Discharge diagnoses: 1. Right foot Cellulitis after an animal bite (cat), domesticated 07/17/2017 with abscess formation second metatarsals, x-rays failed to reveal any osteomyelitis without any foreign body or subcutaneous emphysema, consult with Dr. Chin appreciated. Antibiotics changed to Ertapenem and subsequently to cefuroxime. Consult with Dr. Dennison for I&D changed to [facility]. No surgical intervention planned. Dr. Chin will address home antibiotics. 2. CAD: Post PCI with angioplasty and stent to stent placement or primary this year had been seeing cardiology Dr. JAE Jc 3 end-stage chronic kidney disease on hemodialysis 4 type 2 diabetes on insulin pump 5 hyperlipidemia 6 asthma/COPD 7 hypothyroidism 8. Anxiety disorder and recurrent depression. 9 GERD/GI prophylaxis: Continue Pepcid 20 mg daily 10. Hypertensive cardiac vessel disease on amlodipine 10 mg daily Lasix 80 mg twice a day Imdur 30 mg daily 11 Chronic pain syndrome: Resume hydrocodone 12 Acute metabolic encephalopathy likley secondary to hypoglycemia and decreased clearance of opiods and ertapenem due to ESRD. hold any opioid. If needed tylenol 3 as needed for pain. Consult for neurology and psychiatry. Dr. Chin has changed antibiotics from ertapenem to IV piggyback cefuroxime. DVT prophylaxis Pepcid GI prophylaxis Discharge plan: [facility]. Impression and plan of care have been directed as dictated by the signing physician. Emely Contreras nurse practitioner acting as scribe for signing physician. Patient Condition at Discharge: Good Plan - Discharge Summary Discharge Rx Participant: Yes New Discharge Prescriptions: New Calcium Acetate [PhosLo] 667 mg PO TID-W/MEALS cap Darbepoetin Collin [Aranesp] 40 mcg SQ Q7D syringe Insulin Aspart [NovoLOG (formulary)] 0 unit SQ ACHS vial Insulin Detemir [Levemir] 20 unit SQ BID syr SILVER sulfADIAZINE Cream [Silvadene 1% Cream] 1 applic TOPICAL BID applic Cefuroxime Axetil [Cefuroxime] 500 mg PO DAILY #6 tab Continue Famotidine [Pepcid] 20 mg PO DAILY busPIRone HCL 15 mg PO BID Escitalopram [Lexapro] 20 mg PO DAILY Aspirin EC [Ecotrin Low Dose] 81 mg PO DAILY amLODIPine [Norvasc] 10 mg PO DAILY Atorvastatin [Lipitor] 80 mg PO HS Isosorbide Mononitrate ER [Imdur] 30 mg PO DAILY Clopidogrel [Plavix] 75 mg PO Q48H lamoTRIgine [LaMICtal] 100 mg PO DAILY lamoTRIgine [LaMICtal] 150 mg PO HS Changed Furosemide [Lasix] 40 mg PO BID #0 Discontinued Insulin Aspart (For Pump) [NovoLOG (For Pump)] See Protocol SQ-PUMP CONTINUOUS LORazepam [Ativan] 1 mg PO BID Ciprofloxacin HCl [Cipro] 500 mg PO Q12HR Discharge Medication List Famotidine [Pepcid] 20 mg PO DAILY 04/29/14 [History] Aspirin EC [Ecotrin Low Dose] 81 mg PO DAILY 01/01/16 [History] Escitalopram [Lexapro] 20 mg PO DAILY 01/01/16 [History] busPIRone HCL 15 mg PO BID 01/01/16 [History] Atorvastatin [Lipitor] 80 mg PO HS 12/27/16 [History] amLODIPine [Norvasc] 10 mg PO DAILY 12/27/16 [History] Clopidogrel [Plavix] 75 mg PO Q48H 03/21/17 [History] Isosorbide Mononitrate ER [Imdur] 30 mg PO DAILY 03/21/17 [History] lamoTRIgine [LaMICtal] 100 mg PO DAILY 07/01/17 [History] lamoTRIgine [LaMICtal] 150 mg PO HS 07/01/17 [History] Calcium Acetate [PhosLo] 667 mg PO TID-W/MEALS cap 08/01/17 [Rx] Cefuroxime Axetil [Cefuroxime] 500 mg PO DAILY #6 tab 08/01/17 [Rx] Darbepoetin Collin [Aranesp] 40 mcg SQ Q7D syringe 08/01/17 [Rx] Furosemide [Lasix] 40 mg PO BID #0 08/01/17 [Rx] Insulin Aspart [NovoLOG (formulary)] 0 unit SQ ACHS vial 08/01/17 [Rx] Insulin Detemir [Levemir] 20 unit SQ BID syr 08/01/17 [Rx] SILVER sulfADIAZINE Cream [Silvadene 1% Cream] 1 applic TOPICAL BID applic [Rx] Follow up Appointment(s)/Referral(s): Kimberli Gar MD [Primary Care Provider] - 1 Week (at [facility]) Jonnie Burden PAC [PHYSICIAN DIRECTOR OF PRODUCT MARKETING] - 1 Week (Patient may follow-up with Jonnie Burden PA-C or Dr. Connor Mendoza at [facility] in 1 week following discharge. ) [facility] Visiting Nurse, [NON-STAFF] - 1 Week Patient Instructions/Handouts: Animal Bite (DC), Type 2 Diabetes in Adults (DC) Activity/Diet/Wound Care/Special Instructions: Cardiac, diabetic diet. Activity as tolerated. Fall precautions. Continue hemodialysis on Mon, Wed, Fri. Discharge Disposition: TRANSFER TO SNF/ECF
== END 2017-08-01 16:52 | DRG 602 ==
LOC: EC 09:13 → 4MS4W 11:55
PROVIDERS: ADMIT Family Medicine; ATTEND Family Medicine
PROC: 5A1D70Z Performance of Urinary Filtration, Intermittent, Less than 6 Hours Per Day (ICD-10-PCS; principal; 2017-07-25)
DX: L03.115 Cellulitis of right lower limb (principal); N18.6 End stage renal disease; G92 Toxic encephalopathy; F33.9 Major depressive disorder, recurrent, unspecified; I12.0 Hypertensive chronic kidney disease with stage 5 chronic kidney disease or end stage renal disease; Z68.41 Body mass index [BMI] 40.0-44.9, adult; D63.1 Anemia in chronic kidney disease; E03.9 Hypothyroidism, unspecified; T42.4X5A Adverse effect of benzodiazepines, initial encounter; T40.2X5A Adverse effect of other opioids, initial encounter; E11.22 Type 2 diabetes mellitus with diabetic chronic kidney disease; E11.649 Type 2 diabetes mellitus with hypoglycemia without coma; E11.65 Type 2 diabetes mellitus with hyperglycemia; E07.9 Disorder of thyroid, unspecified; E66.01 Morbid (severe) obesity due to excess calories; E78.5 Hyperlipidemia, unspecified; E87.5 Hyperkalemia; F41.9 Anxiety disorder, unspecified; G89.4 Chronic pain syndrome; I25.10 Atherosclerotic heart disease of native coronary artery without angina pectoris; I25.2 Old myocardial infarction; I25.5 Ischemic cardiomyopathy; J44.9 Chronic obstructive pulmonary disease, unspecified; E55.9 Vitamin D deficiency, unspecified; M19.90 Unspecified osteoarthritis, unspecified site; M54.9 Dorsalgia, unspecified; Z79.4 Long term (current) use of insulin; Z79.899 Other long term (current) drug therapy; Z79.02 Long term (current) use of antithrombotics/antiplatelets; Z79.82 Long term (current) use of aspirin; Z91.041 Radiographic dye allergy status; Z88.0 Allergy status to penicillin; Z88.8 Allergy status to other drugs, medicaments and biological substances; Z91.048 Other nonmedicinal substance allergy status; Z86.74 Personal history of sudden cardiac arrest; Z99.2 Dependence on renal dialysis; Z98.84 Bariatric surgery status; Z96.41 Presence of insulin pump (external) (internal); Z95.5 Presence of coronary angioplasty implant and graft; Z90.710 Acquired absence of both cervix and uterus; Z86.14 Personal history of Methicillin resistant Staphylococcus aureus infection; Z91.81 History of falling; Z90.49 Acquired absence of other specified parts of digestive tract; Z98.42 Cataract extraction status, left eye; Z98.41 Cataract extraction status, right eye; Z96.1 Presence of intraocular lens; Z82.49 Family history of ischemic heart disease and other diseases of the circulatory system; Z83.3 Family history of diabetes mellitus; Z84.1 Family history of disorders of kidney and ureter; Z84.89 Family history of other specified conditions; W55.01XA Bitten by cat, initial encounter
CPT/HCPCS: 36415; 70450; 71045; 80053; 81001; 82140; 82728; 83036; 83540; 83550; 83605; 84100; 85025; 86706; 87040; 87070; 87075; 87086; 87205; 87340; 90715; 90935; 95819; 96365; 96375; 99284

== ENCOUNTER 2017-09-22 11:34 | Inpatient (IN) | payer MEDICARE, BC, OTHER ==
[2017-09-22] MEDS ORDERED: MORPHINE SULFATE 2 MG/ML SYRINGE IVP STA (11:43)
[2017-09-22] MEDS ORDERED: ONDANSETRON 4 MG/2 ML VIAL IVP STA (11:43)
[2017-09-22] MEDS ORDERED: NITROGLYCERIN OINT 1 INCH/GM PACKET TOPICAL STA (11:43)
--- NOTE | 2017-09-22 12:25 | ED ---
Chest Pain HPI - General Chief Complaint: Chest Pain Stated Complaint: chest pain Time Seen by Provider: 09/22/17 11:36 Source: patient, EMS Mode of arrival: EMS - History of Present Illness Initial Comments: [age] years old female with a history of for several heart attacks per patient had a chest pain off-and-on for last 2 days she was not able to do her scheduled dialysis noticed some changes on EKG with a white complex EKG EKG was sent to Dr. Wilson with an old EKG and I am grateful that he call back within a minute. She denies any headaches no neck stiffness have a chest pain off-and- on for 2-3 days and some shortness of breath no abdominal pain no frequency urgency dysuria - Related Data Home Medications Medication Instructions Recorded Confirmed Famotidine [Pepcid] 20 mg PO DAILY 04/29/14 09/22/17 Aspirin EC [Ecotrin Low Dose] 81 mg PO DAILY 01/01/16 09/22/17 Escitalopram [Lexapro] 20 mg PO DAILY 01/01/16 09/22/17 busPIRone HCL 15 mg PO BID 01/01/16 09/22/17 Atorvastatin [Lipitor] 80 mg PO HS 12/27/16 09/22/17 amLODIPine [Norvasc] 10 mg PO DAILY 12/27/16 09/22/17 Clopidogrel [Plavix] 75 mg PO Q48H 03/21/17 09/22/17 Isosorbide Mononitrate ER [Imdur] 30 mg PO DAILY 03/21/17 09/22/17 lamoTRIgine [LaMICtal] 100 mg PO DAILY 07/01/17 09/22/17 lamoTRIgine [LaMICtal] 150 mg PO HS 07/01/17 09/22/17 Insulin Aspart (For Pump) [NovoLOG 0.01 unit SQ-PUMP CONTINUOUS 09/22/17 (For Pump)] Levothyroxine Sodium [Synthroid] 25 mcg PO DAILY 09/22/17 09/22/17 Levothyroxine Sodium [Synthroid] 200 mcg PO DAILY 09/22/17 09/22/17 Previous Rx's Medication Instructions Recorded Calcium Acetate [PhosLo] 667 mg PO TID-W/MEALS cap 08/01/17 Furosemide [Lasix] 40 mg PO BID #0 08/01/17 Allergies Allergy/AdvReac Type Severity Reaction Status Date / Time adhesive Allergy Rash/Hives Verified 09/22/17 12:49 Iodinated Contrast- Oral and Allergy KIDNEY Verified 09/22/17 12:49 IV Dye FAILURE metformin Allergy SUGAR Verified 09/22/17 12:49 LEVEL INCREASE Penicillins Allergy Rash/Hives Verified 09/22/17 12:49 Review of Systems ROS Statement: Those systems with pertinent positive or pertinent negative responses have been documented in the HPI. ROS Other: All systems not noted in ROS Statement are negative. Past Medical History Past Medical History: Coronary Artery Disease (CAD), Diabetes Mellitus, Dialysis , Hyperlipidemia, Hypertension, Myocardial Infarction ([place]), Osteoarthritis (OA) , Thyroid Disorder Additional Past Medical History / Comment(s): per past medical charting pt's stated "pt has had 17 mi's". ischemic cardiomyopathy. [place] in 2005 and September 2013, 12/29/15 STRESS WNL, Hepatitis A, ALLERGIC rhinitis,[place],ESRD/DIALYSIS- ON --, CARDIO-PULMONARY ARREST 07/05/14 and pt stated she has had short term memory problems since, hypertensive nephrosclerosis, Hepatitis A,Vitamin D deficiency, constipation.dm- uses an insulin pump.[place] Last Myocardial Infarction Date:: 09/2013 History of Any Multi-Drug Resistant Organisms: MRSA Date of last positivie culture/infection: 2011 MDRO Source:: blood Past Surgical History: Adenoidectomy, Appendectomy, Cholecystectomy, Heart Catheterization With Stent, Hysterectomy, Tonsillectomy Additional Past Surgical History / Comment(s): mary cataracts, LAP-BAND 2004, Laparoscopic cholecystectomy, FIBULA FX has metal pins in place,Left shoulder surgery, Hemodialysis Cataract bilateral with IOL, fistula and sx to" reroute it ",gets dialysis fri-fri-fri. has insulin pump. no bp on left Past Anesthesia/Blood Transfusion Reactions: Motion Sickness, Postoperative Nausea & Vomiting (PONV) Date of Last Stent Placement:: 2014 Past Psychological History: Anxiety, Bipolar, Depression Smoking Status: Never smoker Past Alcohol Use History: None Reported Past Drug Use History: None Reported - Past Family History Mother Family Medical History: Congestive Heart Failure (CHF), Diabetes Mellitus, Hypertension Father History Unknown: Yes Family Medical History: Diabetes Mellitus Brother(s) Family Medical History: Diabetes Mellitus, Hyperlipidemia Additional Family Medical History / Comment(s): Hypertension chronic kidney disease General Exam - General Exam Comments Initial Comments: General: The patient is awake , she looks pale and tired GCS is 15 Skin: Skin is warm and dry and no rashes or lesions are noted. Eye: Pupils are equal, round and reactive to light, extra-ocular movements are intact; there is normal conjunctiva bilaterally. Ears, nose, mouth and throat: There are moist mucous membranes and no oral lesions. Neck: The neck is supple, there is no tenderness or JVD. Cardiovascular: There is a regular rate and rhythm. No murmur, rub or gallop is appreciated. Respiratory: To auscultation bilateral, no wheezing no rhonchi no distress respiratory germain noticed Gastrointestinal: Soft, non-distended, non-tender abdomen without masses or organomegaly noted. There is no rebound or guarding present. Bowel sounds are unremarkable. Back: There is no tenderness to palpation in the midline. There is no obvious deformity. Musculoskeletal: Normal ROM, no tenderness, There is no pedal edema. There is no calf tenderness or swelling. No cords were appreciated. Neurological: CN II-XII intact, Cranial nerves III through XII are intact. There are no obvious motor or sensory deficits. Coordination appears grossly intact. Speech is normal. Psychiatric: Cooperative, appropriate mood & affect, normal judgment. Course Vital Signs 09/22/17 09/22/17 09/22/17 11:54 12:19 13:26 Temperature 98.9 F Pulse Rate 58 L 58 L 47 L Respiratory 18 18 18 Rate Blood Pressure 169/71 164/63 155/58 O2 Sat by Pulse 100 99 100 Oximetry 09/22/17 09/22/17 09/22/17 15:07 15:18 15:35 Temperature Pulse Rate 68 57 L 62 Respiratory Rate Blood Pressure 159/65 O2 Sat by Pulse Oximetry 09/22/17 16:07 Temperature Pulse Rate 72 Respiratory Rate Blood Pressure O2 Sat by Pulse Oximetry EKG is a white complex QRS I compared that with the old EKG noticed left axis deviation and noticed short term IA noticed some tall T waves as well and that bundle-branch block no clear ST elevation noticed. EKG was sent to Dr. Wilson shortly after EKG was Critical Care Time Total Critical Care Time: 60 Critical Care Time: Upon arrival patient may had a chest pain she hasn't had her service for the last few days noticed potassium is 7.8 to try to treat the thalassemia dextrose IV followed by insulin 10 units IV and Kayexalate membranes stabilizing calcium chloride IV was done and then R liters second ampule was repeated albuterol neb was giving stroke spoke with the Dr. Cleveland about the EKG EKG has a white complex because of the hyperkalemia second EKG was repeated that look better but potassium is still high 7.1 THIS regimen is being repeated in the meantime her d -dimer was quite high VQ scan showed no probability but term I paged Dr. Talley see if we could dialyze her today he had he be admitted to Dr. Carmona's service Dr. Talley be consulted staff be consulted trying to get the dialysis done today. Second EKG the QRS complex is not as bad as for CT EKG ventricular rate is 82 IA interval, QRS duration is 162 QT/QTc is 5/588. Noticed some right bundle branch block and left anterior fascicular block no definitive ST segment elevation noticed Disposition Clinical Impression: Chest pain, Renal failure, Hyperkalemia, Elevated d-dimer Disposition: ADMITTED IP TO THIS HOSP Condition: Good Referrals: Kimberli Gar MD [Primary Care Provider] - 1-2 days
[2017-09-22 12:41] LABS: Anisocytosis Slight; Basophils % (A) 0 %; Eosinophils # (A) 0.1 k/uL (0-0.7); Eosinophils % (A) 1 %; HCT 27.5 % (34.0-46.0); HGB 8.6 gm/dL (11.4-16.0); Hypochromasia Slight; Lymphocytes # (A) 0.5 k/uL (1.0-4.8); Lymphocytes % (A) 4 %; MCHC 31.3 g/dL (31.0-37.0); MCV 92.5 fL (80.0-100.0); Mean Platelet Volume 7.1; Monocytes # (A) 0.4 k/uL (0-1.0); Monocytes % (A) 4 %; Neutrophils # (A) 11.1 k/uL (1.3-7.7); Neutrophils % (A) 90 %; Platelet Count 458 k/uL (150-450); RBC 2.97 m/uL (3.80-5.40); RDW 18.7 % (11.5-15.5); WBC 12.4 k/uL (3.8-10.6)
[2017-09-22 12:42] LABS: Albumin 3.7 g/dL (3.5-5.0); Calcium 7.8 mg/dL (8.4-10.2); Total Bilirubin 0.6 mg/dL (0.2-1.3); Total Protein 6.5 g/dL (6.3-8.2)
[2017-09-22 12:49] LABS: INR 1.1 (<1.2); Prothrombin Time 10.9 sec (9.0-12.0)
--- NOTE | 2017-09-22 12:49 | XR ---
EXAMINATION TYPE: XR chest 2V DATE OF EXAM: 09/22/2017 COMPARISON: Chest x-ray 07/29/2017 HISTORY: Chest pain TECHNIQUE: Frontal and lateral views of the chest are obtained. FINDINGS: There is improved aeration in the lungs. No evident pneumothorax or pleural effusion. Hear t remains enlarged. Central vascularity is prominent. There are overlying cardiac leads. Interstitium mildly increased. IMPRESSION: There is improvement in aeration. Correlate for volume overload, pulmonary venous hypert ension and early interstitial edema.
[2017-09-22 12:57] LABS: D-Dimer 3.69 mg/L FEU (<0.60)
[2017-09-22 12:59] LABS: Potassium 7.8 mmol/L (3.5-5.1)
[2017-09-22 13:01] LABS: Creatine Kinase 39 U/L (30-135)
[2017-09-22] MEDS ORDERED: INSULIN REGULAR 100 UNIT/ML VIAL IV ONE ×2 (13:03→16:30)
[2017-09-22] MEDS ORDERED: CALCIUM CHLORIDE 100 MG/ML 10 ML SYRINGE IVP STA ×2 (13:03→16:31)
[2017-09-22] MEDS ORDERED: DEXTROSE 50%-WATER 50 ML SYRINGE IVP STA ×2 (13:03→16:30)
[2017-09-22] MEDS ORDERED: SODIUM POLYSTYRENE SULFONATE 15 GM/60 ML BOTTLE PO STA (13:04)
[2017-09-22] MEDS ORDERED: ALBUTEROL NEBULIZED 2.5 MG/3 ML INHALATION STA (13:04)
[2017-09-22 13:13] LABS: Creatine Kinase MB 0.8 ng/mL (0.0-2.4); Troponin I <0.012 ng/mL (0.000-0.034)
[2017-09-22] MEDS ORDERED: ALBUTEROL NEB (CONC) 2.5 MG/0.5 ML INHALATION STA ×2 (13:53→16:31)
--- NOTE | 2017-09-22 15:06 | NM ---
EXAMINATION TYPE: NM pul vent and perfuse DATE OF EXAM: 09/22/2017 COMPARISON: Chest radiograph of the same date HISTORY: Elevated d-dimer and shortness of breath. TECHNIQUE: Utilizing inhalation of 35.4 mCi Tc 99m DTPA aerosol and intravenous injection of 5.47 mC i of Tc 99m MAA, ventilation and perfusion images are acquired post injection in multiple projections . FINDINGS: No focal perfusion defects are seen. Injection site within the right breast obscures the right latera l perfusion images and cardiomegaly obscures the left anterior oblique perfusion images. There is seda tral radiotracer clumping on ventilation images, limiting evaluation with multifocal ventilation defe cts throughout without corresponding perfusion defects. This represents reversed mismatch defects of lung disease. IMPRESSION: Low probability for pulmonary embolus. Central radiotracer clumping and multifocal ventilation defect s without perfusion defects suggesting underlying respiratory etiology such as COPD, bronchitis or in terstitial pulmonary edema.
[2017-09-22 16:12] LABS: VBG PH 7.41 (7.31-7.41)
--- NOTE | 2017-09-22 16:17 | P.CRDCN ---
History of Present Illness Consult date: 09/22/17 Requesting physician: Delmi Goel Consult reason: chest pain Chief complaint: Chest pain History of present illness: This is a 62-year-old female who follows with Dr. Jovana Jc in the office, she has a known history of end-stage renal disease on hemodialysis, coronary artery disease with multivessel PCI, hypertension, diabetes, obesity, hypothyroidism. As directed to come to the emergency room today from her dialysis treatment. She states she was having some mild chest discomfort but main reason she was directed to come here was because she looked generally not well to the staff there. According to the patient, she missed her dialysis on Friday, she states that she's been having off-and-on chest discomfort. Patient has noticed by the dialysis staff to look unwell, she also was noted to have some abnormality in her EKG rhythm and for this reason was directed to come to the emergency room. Her EKG on arrival here showed what appears to be a junctional rhythm with a right bundle branch block pattern and nonspecific ST-T wave changes. Her heart rate in the 30s. Chest x-ray showed improvement in aeration, correlation for volume overload, pulmonary venous hypertension and early interstitial edema. Her blood pressure on arrival here 155/58, 100% on 2 L of oxygen. White blood cell count 12.4, hemoglobin 8.6, platelet count 458. D-dimer 3.6, sodium 133, potassium 7.8, BUN 70, creatinine 9.6, blood glucose 248. Magnesium 3.0, AST 61, ALT 54, alk phos 134. Troponin 0.012. Patient did undergo a lung perfusion scan which showed low probability for pulmonary embolus. Patient was lying flat at the time of my examination, denying any chest pain at present, mild shortness of breath. Past Medical History Past Medical History: Coronary Artery Disease (CAD), Diabetes Mellitus, Dialysis , Hyperlipidemia, Hypertension, Myocardial Infarction ([place]), Osteoarthritis (OA) , Thyroid Disorder Additional Past Medical History / Comment(s): per past medical charting pt's stated "pt has had 17 mi's". ischemic cardiomyopathy. [place] in 2005 and September 2013, 12/29/15 STRESS WNL, Hepatitis A, ALLERGIC rhinitis,[place],ESRD/DIALYSIS- ON --, CARDIO-PULMONARY ARREST 07/05/14 and pt stated she has had short term memory problems since, hypertensive nephrosclerosis, Hepatitis A,Vitamin D deficiency, constipation.dm- uses an insulin pump.HX OF [place]ALL[place] Last Myocardial Infarction Date:: 09/2013 History of Any Multi-Drug Resistant Organisms: MRSA Date of last positivie culture/infection: 2011 MDRO Source:: blood Past Surgical History: Adenoidectomy, Appendectomy, Cholecystectomy, Heart Catheterization With Stent, Hysterectomy, Tonsillectomy Additional Past Surgical History / Comment(s): mary cataracts, LAP-BAND 2004, Laparoscopic cholecystectomy, FIBULA FX has metal pins in place,Left shoulder surgery, Hemodialysis Cataract bilateral with IOL, fistula and sx to" reroute it ",gets dialysis fri-fri-fri. has insulin pump. no bp on left Past Anesthesia/Blood Transfusion Reactions: Motion Sickness, Postoperative Nausea & Vomiting (PONV) Date of Last Stent Placement:: 2014 Past Psychological History: Anxiety, Bipolar, Depression Smoking Status: Never smoker Past Alcohol Use History: None Reported Past Drug Use History: None Reported - Past Family History Mother Family Medical History: Congestive Heart Failure (CHF), Diabetes Mellitus, Hypertension Father History Unknown: Yes Family Medical History: Diabetes Mellitus Brother(s) Family Medical History: Diabetes Mellitus, Hyperlipidemia Additional Family Medical History / Comment(s): Hypertension chronic kidney disease Medications and Allergies Home Medications Medication Instructions Recorded Confirmed Type Famotidine [Pepcid] 20 mg PO DAILY 04/29/14 09/22/17 History Aspirin EC [Ecotrin Low Dose] 81 mg PO DAILY 01/01/16 09/22/17 History Escitalopram [Lexapro] 20 mg PO DAILY 01/01/16 09/22/17 History busPIRone HCL 15 mg PO BID 01/01/16 09/22/17 History Atorvastatin [Lipitor] 80 mg PO HS 12/27/16 09/22/17 History amLODIPine [Norvasc] 10 mg PO DAILY 12/27/16 09/22/17 History Clopidogrel [Plavix] 75 mg PO Q48H 03/21/17 09/22/17 History Isosorbide Mononitrate ER [Imdur] 30 mg PO DAILY 03/21/17 09/22/17 History lamoTRIgine [LaMICtal] 100 mg PO DAILY 07/01/17 09/22/17 History lamoTRIgine [LaMICtal] 150 mg PO HS 07/01/17 09/22/17 History Calcium Acetate [PhosLo] 667 mg PO TID-W/MEALS cap 08/01/17 09/22/17 Rx Furosemide [Lasix] 40 mg PO BID #0 08/01/17 09/22/17 Rx Insulin Aspart (For Pump) [NovoLOG 0.01 unit SQ-PUMP CONTINUOUS 09/22/17 History (For Pump)] Levothyroxine Sodium [Synthroid] 25 mcg PO DAILY 09/22/17 09/22/17 History Levothyroxine Sodium [Synthroid] 200 mcg PO DAILY 09/22/17 09/22/17 History Allergies Allergy/AdvReac Type Severity Reaction Status Date / Time adhesive Allergy Rash/Hives Verified 09/22/17 12:49 Iodinated Contrast- Oral and Allergy KIDNEY Verified 09/22/17 12:49 IV Dye FAILURE metformin Allergy SUGAR Verified 09/22/17 12:49 LEVEL INCREASE Penicillins Allergy Rash/Hives Verified 09/22/17 12:49 Physical Exam Vitals: Vital Signs Temp Pulse Resp BP Pulse Ox 09/22/17 15:35 62 09/22/17 15:18 57 L 09/22/17 15:07 68 159/65 09/22/17 13:26 47 L 18 155/58 100 09/22/17 12:19 58 L 18 164/63 99 09/22/17 11:54 98.9 F 58 L 18 169/71 100 Intake and Output 09/22/17 09/22/17 09/22/17 06:59 14:59 22:59 Other: Weight 117.48 kg PHYSICAL EXAMINATION: GENERAL: 62-year-old female in no acute distress at the time of my examination HEENT: Head is atraumatic, normocephalic. Pupils equal, round. Sclera anicteric. Conjunctiva are clear. Mucous membranes of the mouth are moist. Neck is supple. There is elevated jugular venous pressure. No carotid bruit is heard. HEART EXAMINATION: Heart S1, S2 normal. No murmur or gallop heard. CHEST EXAMINATION: Lungs are clear to auscultation and precussion. No chest wall tenderness is noted on palpation or with deep breathing. ABDOMEN: Soft, nontender. Bowel sounds are heard. No organomegaly noted. EXTREMITIES: 2+ peripheral pulses with evidence of peripheral edema and no calf tenderness noted. NEUROLOGIC patient is awake, alert and oriented OX3. . Results 09/22/17 12:10 09/22/17 12:10 Cardiac Enzymes 09/22/17 09/22/17 Range/Units 12:10 12:10 AST 61 H (14-36) U/L CK-MB (CK-2) 0.8 (0.0-2.4) ng/mL Troponin I <0.012 (0.000-0.034) ng/mL Coagulation 09/22/17 Range/Units 12:10 PT 10.9 (9.0-12.0) sec APTT 28.0 (22.0-30.0) sec CBC 09/22/17 Range/Units 12:10 WBC 12.4 H (3.8-10.6) k/uL RBC 2.97 L (3.80-5.40) m/uL Hgb 8.6 L (11.4-16.0) gm/dL Hct 27.5 L (34.0-46.0) % Plt Count 458 H (150-450) k/uL Comprehensive Metabolic Panel 09/22/17 Range/Units 12:10 Sodium 133 L (137-145) mmol/L Potassium 7.8 H* (3.5-5.1) mmol/L Chloride 91 L (98-107) mmol/L Carbon Dioxide 20 L (22-30) mmol/L BUN 70 H (7-17) mg/dL Creatinine 9.68 H* (0.52-1.04) mg/dL Glucose 248 H (74-99) mg/dL Calcium 7.8 L (8.4-10.2) mg/dL AST 61 H (14-36) U/L ALT 54 H (9-52) U/L Alkaline Phosphatase 134 H (38-126) U/L Total Protein 6.5 (6.3-8.2) g/dL Albumin 3.7 (3.5-5.0) g/dL Current Medications Generic Name Dose Route Start Last Admin Trade Name Freq PRN Reason Stop Dose Admin Amlodipine Besylate 10 mg 09/23/17 09:00 Norvasc PO DAILY [facility] Atorvastatin Calcium 80 mg 09/22/17 21:00 Lipitor PO HS [facility] Calcium Acetate 667 mg 09/22/17 17:30 Phoslo PO TID-W/MEALS [facility] Clopidogrel Bisulfate 75 mg 09/22/17 15:30 Plavix PO Q48H [facility] Escitalopram Oxalate 20 mg 09/23/17 09:00 Lexapro PO DAILY [facility] Famotidine 20 mg 09/23/17 09:00 Pepcid PO DAILY [facility] Furosemide 40 mg 09/22/17 21:00 Lasix PO BID [facility] Insulin Aspart 0 unit 09/22/17 17:30 Novolog SQ ACHS [facility] Protocol Isosorbide Mononitrate 30 mg 09/23/17 09:00 Imdur PO DAILY [facility] Lamotrigine 100 mg 09/23/17 09:00 Lamictal PO DAILY [facility] Levothyroxine Sodium 25 mcg 09/23/17 09:00 Synthroid PO DAILY [facility] Non-Formulary Medication 81 mg 09/23/17 09:00 Aspirin Ec PO DAILY [facility] Non-Formulary Medication 15 mg 09/22/17 21:00 Buspirone Hcl [Buspirone Hcl] PO BID [facility] Non-Formulary Medication 150 mg 09/22/17 21:00 Lamotrigine [Lamictal] PO HS [facility] Non-Formulary Medication 200 mcg 09/23/17 09:00 Levothyroxine Sodium [Synthroid] PO DAILY [facility] Intake and Output 09/22/17 09/22/17 09/22/17 06:59 14:59 22:59 Other: Weight 117.48 kg Patient Weight 09/23/17 06:59 Weight 117.48 kg 09/22/17 12:10 09/22/17 12:10 EKG Interpretations (text) EKG shows a junctional rhythm with right bundle branch block pattern and nonspecific ST-T wave changes Assessment and Plan Plan: Assessment and plan #1 chest pain with some mild associated nausea and general malaise, initial troponin 0.012. EKG shows a junctional rhythm with right bundle branch block pattern and nonspecific ST-T wave changes #2 end-stage renal disease on hemodialysis #3 known history of coronary artery disease with prior PCI as, most recent intervention was done in December 2015 at which time patient underwent angioplasty and stenting of the LAD #4 hypertension #5 hyperlipidemia #6 diabetes #7 morbid obesity #8 chronic anemia #9 hyperkalemia, potassium 7.8 on arrival #10 diastolic congestive heart failure acute on chronic Plan Patient has been given Kayexalate in the emergency room, we will obtain an echocardiogram with Doppler study. Recent echo was performed in January of last year which revealed a normal ejection fraction. EKG changes and bradycardia likely secondary to hyperkalemia. Patient will be given Kayexalate to reduce potassium level. She will also undergo hemodialysis. We will obtain 2 subsequent troponins as well as a BNP level. Further recommendations to follow. DNP note has been reviewed, I agree with a documented findings and plan of care. Patient was seen and examined.
[2017-09-22] MEDS ORDERED: MORPHINE SULFATE 2 MG/ML SYRINGE IV PRN (16:56)
[2017-09-22] MEDS ORDERED: NALOXONE 0.4 MG/ML 1 ML VIAL IV PRN (16:56)
[2017-09-22] MEDS ORDERED: ONDANSETRON 4 MG/2 ML VIAL IVP PRN (16:56)
[2017-09-22] MEDS ORDERED: CALCIUM CHLORIDE 100 MG/ML 10 ML SYRINGE IVP ONE (18:11)
[2017-09-22] MEDS ORDERED: CALCIUM CHLORIDE 1,000 MG in SODIUM CHLORIDE 0.9% 100 ML IVPB STA (18:14)
--- NOTE | 2017-09-22 19:04 | ECHOF ---
Referral Reason:chest pain MEASUREMENTS -------- HEIGHT: 167.6 cm WEIGHT: 117.5 kg BP: 159/65 IVSd: 1.1 cm (0.6 - 1.1) LVIDd: 4.7 cm (3.9 - 5.3) LVPWd: 1.1 cm (0.6 - 1.1) IVSs: 1.4 cm LVIDs: 2.5 cm LVPWs: 1.6 cm RVIDd: 2.8 cm (< 3.3) LAESV Index (A-L): 28.07 ml/m Ao Diam: 2.7 cm (2.0 - 3.7) LA Diam: 4.0 cm (2.7 - 3.8) AV Cusp: 1.4 cm (1.5 - 2.6) MV E Errol: 1.50 m/s MV DecT: 148 ms MV A Errol: 0.53 m/s MV E/A Ratio: 2.85 AV maxP.60 mmHg AV meanP.39 mmHg RAP: 5.00 mmHg RVSP: 57.68 mmHg FINDINGS -------- Sinus rhythm. This was a technically difficult study with suboptimal views. The left ventricular size is normal. There is borderline concentric left ventricular hypertrophy. Overall left ventricular systolic function is normal with, an EF between 55 - 60 %. The RV was not well visualized. LA is midly dilated 29-33ml/m2. RA appears enlarged. 3ml of Lumason was utilized for enhancement of images. There is mild aortic valve sclerosis. There is no evidence of aortic regurgitation. There is no e vidence of aortic stenosis. AOV is possible Bicuspid. Mild mitral annular calcification present. There is trace to mild mitral regurgitation. Mild tricuspid regurgitation present. There is mild to moderate pulmonary hypertension. The right ventricular systolic pressure, as measured by Doppler, is 57.68mmHg. The pulmonic valve was not well visualized. The aortic root size is normal. Normal inferior vena cava with normal inspiratory collapse consistent with estimated right atrial pre ssure of 5 mmHg. There is no pericardial effusion. CONCLUSIONS -------- 1. Sinus rhythm. 2. This was a technically difficult study with suboptimal views. 3. The left ventricular size is normal. 4. There is borderline concentric left ventricular hypertrophy. 5. Overall left ventricular systolic function is normal with, an EF between 55 - 60 %. 6. The RV was not well visualized. 7. LA is midly dilated 29-33ml/m2. 8. RA appears enlarged. 9. 3ml of Lumason was utilized for enhancement of images. 10. There is mild aortic valve sclerosis. 11. AOV is possible Bicuspid. 12. Mild mitral annular calcification present. 13. There is trace to mild mitral regurgitation. 14. Mild tricuspid regurgitation present. 15. There is mild to moderate pulmonary hypertension. 16. The right ventricular systolic pressure, as measured by Doppler, is 57.68mmHg. 17. The pulmonic valve was not well visualized. 18. The aortic root size is normal. 19. There is no pericardial effusion. DIRECTOR OF CORPORATE RESPONSIBILITY: Sean Casiano RDCS
[2017-09-22] MEDS ORDERED: LIDOCAINE 1% INJ 10MG/ML (20 ML MDV) ONE (19:30)
[2017-09-22] MEDS: INSULIN ASPART 100 UNIT/ML 1 ML 10 ML VIAL SQ SCH ×2 (21:25→22:17)
[2017-09-22] MEDS: CALCIUM ACETATE 667 MG CAP PO SCH (21:25)
[2017-09-22 22:12] LABS: Glucose,Whole Blood 174 mg/dL (75-99)
[2017-09-22] MEDS: busPIRone HCl 5 MG TAB PO SCH (22:17)
[2017-09-22] MEDS: FUROSEMIDE 40 MG TAB PO SCH (22:18)
[2017-09-22] MEDS: lamoTRIgine 100 MG TAB PO SCH (22:18)
[2017-09-22] MEDS: lamoTRIgine 25 MG TAB PO SCH (22:18)
[2017-09-22] MEDS: ATORVASTATIN 80 MG TAB PO SCH (22:18)
[2017-09-23 04:57] LABS: Glucose,Whole Blood 242 mg/dL (75-99)
[2017-09-23] MEDS: LEVOTHYROXINE 100 MCG TAB PO SCH (05:36)
[2017-09-23] MEDS: LEVOTHYROXINE 25 MCG TAB PO SCH (05:36)
[2017-09-23 06:03] VITALS: RESP 18
[2017-09-23] MEDS: INSULIN ASPART 100 UNIT/ML 1 ML 10 ML VIAL SQ SCH ×2 (07:07→12:22)
[2017-09-23] MEDS: CALCIUM ACETATE 667 MG CAP PO SCH ×3 (07:07→17:14)
[2017-09-23 07:22] LABS: Anisocytosis Slight; Basophils % (A) 0 %; Eosinophils # (A) 0.2 k/uL (0-0.7); Eosinophils % (A) 2 %; HCT 26.5 % (34.0-46.0); Hypochromasia Marked; Lymphocytes # (A) 0.5 k/uL (1.0-4.8); Lymphocytes % (A) 6 %; MCH 29.1 pg (25.0-35.0); MCHC 30.3 g/dL (31.0-37.0); Macrocytosis Slight; Mean Platelet Volume 6.8; Monocytes # (A) 0.4 k/uL (0-1.0); Monocytes % (A) 5 %; Neutrophils # (A) 7.9 k/uL (1.3-7.7); Neutrophils % (A) 86 %; Platelet Count 377 k/uL (150-450); RBC 2.76 m/uL (3.80-5.40); RDW 19.3 % (11.5-15.5); WBC 9.2 k/uL (3.8-10.6)
[2017-09-23 07:38] LABS: Albumin 3.4 g/dL (3.5-5.0); Calcium 7.7 mg/dL (8.4-10.2); Potassium 5.3 mmol/L (3.5-5.1); Total Bilirubin 0.6 mg/dL (0.2-1.3)
[2017-09-23] MEDS: busPIRone HCl 5 MG TAB PO SCH ×2 (08:59→20:40)
[2017-09-23] MEDS: ISOSORBIDE MONONITRATE ER 30 MG TAB.ER.24H PO SCH (08:59)
[2017-09-23] MEDS: FAMOTIDINE 20 MG TAB PO SCH (08:59)
[2017-09-23] MEDS: ESCITALOPRAM 20 MG TAB PO SCH (08:59)
[2017-09-23] MEDS: FUROSEMIDE 40 MG TAB PO SCH ×2 (08:59→20:40)
[2017-09-23] MEDS: ASPIRIN 81 MG PO SCH (08:59)
[2017-09-23] MEDS: lamoTRIgine 100 MG TAB PO SCH ×2 (09:00→20:41)
[2017-09-23] MEDS: amLODIPine 10 MG TAB PO SCH (09:00)
[2017-09-23] MEDS ORDERED: CLOPIDOGREL 75 MG TAB PO SCH (09:00)
[2017-09-23 10:52] VITALS: BMI 39.7
--- NOTE | 2017-09-23 11:36 | P.PN ---
Subjective Progress Note Date: 09/23/17 This is a 62-year-old female who follows with Dr. Jovana Jc in the office, she has a known history of end-stage renal disease on hemodialysis, coronary artery disease with multivessel PCI, hypertension, diabetes, obesity, hypothyroidism. As directed to come to the emergency room today from her dialysis treatment. She states she was having some mild chest discomfort but main reason she was directed to come here was because she looked generally not well to the staff there. According to the patient, she missed her dialysis on Friday, she states that she's been having off-and-on chest discomfort. Patient has noticed by the dialysis staff to look unwell, she also was noted to have some abnormality in her EKG rhythm and for this reason was directed to come to the emergency room. Her EKG on arrival here showed what appears to be a junctional rhythm with a right bundle branch block pattern and nonspecific ST-T wave changes. Her heart rate in the 30s. Chest x-ray showed improvement in aeration, correlation for volume overload, pulmonary venous hypertension and early interstitial edema. Her blood pressure on arrival here 155/58, 100% on 2 L of oxygen. White blood cell count 12.4, hemoglobin 8.6, platelet count 458. D-dimer 3.6, sodium 133, potassium 7.8, BUN 70, creatinine 9.6, blood glucose 248. Magnesium 3.0, AST 61, ALT 54, alk phos 134. Troponin 0.012. Patient did undergo a lung perfusion scan which showed low probability for pulmonary embolus. Patient was lying flat at the time of my examination, denying any chest pain at present, mild shortness of breath. 09/23/2017 Patient seen and examined this morning, still feeling sluggish, but better than yesterday. Denies any chest discomfort. Currently undergoing dialysis at the time of my examination. White blood cell count 9.2, hemoglobin 8.0, platelet count 377. Sodium 136, potassium 5.3, BUN 40 and creatinine 6.5. Blood pressure 122/50 with a heart rate in the 70s. Objective - Vital Signs Vital signs: Vital Signs Temp 98.2 F 09/23/17 08:00 Pulse 73 09/23/17 08:00 Resp 18 09/23/17 08:00 BP 122/56 09/23/17 08:00 Pulse Ox 92 L 09/23/17 08:00 Intake & Output 09/22/17 09/23/17 09/23/17 18:59 06:59 18:59 Intake Total 180 Balance 180 Weight 117.48 kg 111.7 kg 111.7 kg Intake: Oral 180 Other: Voiding Method Toilet Toilet # Voids 0 - Exam PHYSICAL EXAMINATION: GENERAL: 62-year-old female in no acute distress at the time of my examination HEENT: Head is atraumatic, normocephalic. Pupils equal, round. Sclera anicteric. Conjunctiva are clear. Mucous membranes of the mouth are moist. Neck is supple. There is elevated jugular venous pressure. No carotid bruit is heard. HEART EXAMINATION: Heart S1, S2 normal. No murmur or gallop heard. CHEST EXAMINATION: Lungs are clear to auscultation and precussion. No chest wall tenderness is noted on palpation or with deep breathing. ABDOMEN: Soft, nontender. Bowel sounds are heard. No organomegaly noted. EXTREMITIES: 2+ peripheral pulses with evidence of peripheral edema and no calf tenderness noted. NEUROLOGIC patient is awake, alert and oriented OX3. . - Labs CBC & Chem 7: 09/23/17 06:49 09/23/17 06:49 Labs: Abnormal Lab Results - Last 24 Hours (Table) 09/22/17 09/22/17 09/22/17 Range/Units 12:10 12:10 12:10 WBC 12.4 H (3.8-10.6) k/uL RBC 2.97 L (3.80-5.40) m/uL Hgb 8.6 L (11.4-16.0) gm/dL Hct 27.5 L (34.0-46.0) % MCHC (31.0-37.0) g/dL RDW 18.7 H (11.5-15.5) % Plt Count 458 H (150-450) k/uL Neutrophils # 11.1 H (1.3-7.7) k/uL Lymphocytes # 0.5 L (1.0-4.8) k/uL D-Dimer 3.69 H (<0.60) mg/L FEU VBG pCO2 (37-51) mmHg VBG HCO3 (24-28) mmol/L Sodium 133 L (137-145) mmol/L Potassium 7.8 H* (3.5-5.1) mmol/L Chloride 91 L (98-107) mmol/L Carbon Dioxide 20 L (22-30) mmol/L BUN 70 H (7-17) mg/dL Creatinine 9.68 H* (0.52-1.04) mg/dL Glucose 248 H (74-99) mg/dL POC Glucose (mg/dL) (75-99) mg/dL Calcium 7.8 L (8.4-10.2) mg/dL Magnesium 3.0 H (1.6-2.3) mg/dL AST 61 H (14-36) U/L ALT 54 H (9-52) U/L Alkaline Phosphatase 134 H (38-126) U/L Total Protein (6.3-8.2) g/dL Albumin (3.5-5.0) g/dL 09/22/17 09/22/17 09/22/17 Range/Units 15:43 15:43 22:09 WBC (3.8-10.6) k/uL RBC (3.80-5.40) m/uL Hgb (11.4-16.0) gm/dL Hct (34.0-46.0) % MCHC (31.0-37.0) g/dL RDW (11.5-15.5) % Plt Count (150-450) k/uL Neutrophils # (1.3-7.7) k/uL Lymphocytes # (1.0-4.8) k/uL D-Dimer (<0.60) mg/L FEU VBG pCO2 35 L (37-51) mmHg VBG HCO3 22 L (24-28) mmol/L Sodium (137-145) mmol/L Potassium 7.2 H* (3.5-5.1) mmol/L Chloride (98-107) mmol/L Carbon Dioxide (22-30) mmol/L BUN (7-17) mg/dL Creatinine (0.52-1.04) mg/dL Glucose (74-99) mg/dL POC Glucose (mg/dL) 174 H (75-99) mg/dL Calcium (8.4-10.2) mg/dL Magnesium (1.6-2.3) mg/dL AST (14-36) U/L ALT (9-52) U/L Alkaline Phosphatase (38-126) U/L Total Protein (6.3-8.2) g/dL Albumin (3.5-5.0) g/dL 09/23/17 09/23/17 09/23/17 Range/Units 04:55 06:49 06:49 WBC (3.8-10.6) k/uL RBC 2.76 L (3.80-5.40) m/uL Hgb 8.0 L (11.4-16.0) gm/dL Hct 26.5 L (34.0-46.0) % MCHC 30.3 L (31.0-37.0) g/dL RDW 19.3 H (11.5-15.5) % Plt Count (150-450) k/uL Neutrophils # 7.9 H (1.3-7.7) k/uL Lymphocytes # 0.5 L (1.0-4.8) k/uL D-Dimer (<0.60) mg/L FEU VBG pCO2 (37-51) mmHg VBG HCO3 (24-28) mmol/L Sodium 136 L (137-145) mmol/L Potassium 5.3 H (3.5-5.1) mmol/L Chloride 91 L (98-107) mmol/L Carbon Dioxide (22-30) mmol/L BUN 40 H (7-17) mg/dL Creatinine 6.50 H* (0.52-1.04) mg/dL Glucose 324 H (74-99) mg/dL POC Glucose (mg/dL) 242 H (75-99) mg/dL Calcium 7.7 L (8.4-10.2) mg/dL Magnesium (1.6-2.3) mg/dL AST 50 H (14-36) U/L ALT 54 H (9-52) U/L Alkaline Phosphatase (38-126) U/L Total Protein 6.0 L (6.3-8.2) g/dL Albumin 3.4 L (3.5-5.0) g/dL Assessment and Plan Plan: Assessment and plan #1 chest pain with some mild associated nausea and general malaise, initial troponin 0.012. EKG shows a junctional rhythm with right bundle branch block pattern and nonspecific ST-T wave changes #2 end-stage renal disease on hemodialysis #3 known history of coronary artery disease with prior PCI as, most recent intervention was done in December 2015 at which time patient underwent angioplasty and stenting of the LAD #4 hypertension #5 hyperlipidemia #6 diabetes #7 morbid obesity #8 chronic anemia #9 hyperkalemia, potassium 7.8 on arrival #10 diastolic congestive heart failure acute on chronic Plan Echocardiogram with Doppler study was performed which revealed a normal left ventricular systolic function. Potassium level improved today. Heart rate is in the 60s, we will repeat an EKG this morning. Cardiology's perspective, patient is undergoing dialysis today and again will receive one more dialysis tomorrow and it is anticipated that following that she will be discharged home. We will make her a follow-up appointment in the office post discharge DNP note has been reviewed, I agree with a documented findings and plan of care. Patient was seen and examined.
[2017-09-23] MEDS ORDERED: LORazepam 1 MG TAB PO PRN (11:55)
[2017-09-23 11:59] LABS: Glucose,Whole Blood 269 mg/dL (75-99)
[2017-09-23] MEDS ORDERED: LORazepam 0.5 MG TAB PO PRN (12:08)
--- NOTE | 2017-09-23 12:46 | CONS ---
CONSULTATION REASON FOR CONSULT: End-stage renal disease. HISTORY OF PRESENT ILLNESS: The patient is a 62-year-old female with end-stage renal disease, on hemodialysis on a Friday, Friday, Friday schedule. Patient missed her treatment on Friday. She could not get in on Friday for a makeup treatment. She got progressively weak and short of breath and had chest pain and was sent to the hospital. Her potassium was noted to be 7.8 mEq/L. The patient was in fluid overload. She was dialyzed last night and is scheduled for hemodialysis again today. The patient states she is feeling better. She denied any fevers or chills. No nausea, vomiting or diarrhea. The patient states she felt weak and therefore did not go for dialysis on Friday. PAST MEDICAL HISTORY: End-stage renal disease, CKD mineral bone disorder, coronary artery disease, cardiomyopathy, hyperlipidemia, osteoarthritis, history of cardiopulmonary arrest, ischemic cardiomyopathy, nutrition vitamin D deficiency; also significant for bipolar disorder, depression, anxiety. PAST SURGICAL HISTORY: Adenoidectomy, appendectomy, cholecystectomy, cardiac catheterization, coronary stent placement, hysterectomy, tonsillectomy, cataract surgery, lap band procedure, shoulder surgery, multiple catheter placements for dialysis and removal of the AV fistula. SOCIAL HISTORY: Negative for smoking, drug abuse or alcohol abuse. MEDICATIONS: Medications at home included Pepcid, Ecotrin, Lipitor, Norvasc, Plavix, Lexapro, BuSpar, Imdur, Lamictal, PhosLo, Lasix, Synthroid. ALLERGIES: Allergies include IV DYE, METFORMIN, PENICILLIN. REVIEW OF SYSTEMS: As per HPI, other systems negative. PHYSICAL EXAMINATION: On examination, patient is comfortable, awake, alert, oriented x3. She is not in any acute distress. Blood pressure is 122/56, heart rate 73 per minute. Patient is afebrile. EXAMINATION OF THE HEART: S1 and S2. EXAMINATION OF THE LUNGS: Bilateral breath sounds are heard. Abdomen is soft, nontender. Examination of lower extremities shows no evidence of edema. M[employer] exam is grossly intact. LABS: Labs show sodium 136, potassium 5.3, chloride 91, BUN 40, serum creatinine 6.5. ASSESSMENT: 1. End-stage renal disease, on hemodialysis on a Friday, Friday, Friday schedule. The patient was dialyzed yesterday. She will be dialyzed again today and tomorrow, which will be her regular treatment today. 2. Noncompliance with dialysis. 3. Hyperkalemia secondary to noncompliance with dialysis, currently improved post treatment yesterday. The patient will be dialyzed again today. 4. Anemia of chronic disease. Hemoglobin is low as the patient has not received her erythrocyte stimulating agent. We will maintain her on Aranesp. 5. Fluid overload. Expect continued improvement with continued dialysis. PLAN: Repeat dialysis today as well as in a.m. Maintain patient on Aranesp. Continue with her phosphate binders. Possible discharge tomorrow after dialysis. Thank you for this consultation. Will continue to follow the patient with you during her hospitalization. MMODL / IJN: [id number] /
[2017-09-23] MEDS ORDERED: DARBEPOETIN ALFA 40 MCG/0.4 ML SYRINGE SQ SCH (13:00)
[2017-09-23] MEDS ORDERED: INSULIN PUMP BASAL RATES 1 EACH MISC MISCELLANE PRN (14:11)
[2017-09-23] MEDS ORDERED: INSPUCOR MISCELLANE PRN (14:11)
[2017-09-23] MEDS ORDERED: INSULIN PUMP ACTIVE INSULIN 1 EACH MISC MISCELLANE PRN (14:11)
[2017-09-23] MEDS ORDERED: INSULIN PUMP TARGET GLUCOSE 1 EACH MISC MISCELLANE PRN (14:11)
[2017-09-23] MEDS ORDERED: INSULIN ASPART 100 UNIT/ML 1 ML 10 ML VIAL SQ PRN (14:11)
--- NOTE | 2017-09-23 14:55 | P.HPIM ---
History of Present Illness H&P Date: 09/23/17 The patient is a pleasant 62-year-old female patient who sees Dr. Gar and Dr. JAE Talley as an outpatient with a past medical history significant for coronary artery disease and prior coronary artery stenting with the patient underwent stenting of the proximal left anterior descending artery as well as ramus intermedius in April 2014, diabetes type 2 on insulin pump, end stage renal disease on hemodialysis Friday, as well as dyslipidemia was last admitted in July for cat bite and associated cellulitis. Patient was found to be confused during that admission and was sent to [facility] for rehab. Patient comes in with generalized weakness associated with on and off chest pain for the past 2 days. According to patient she missed her last dialysis session since she was not feeling well and came to the ER. On evaluation of EKG patient was found to be in junctional rhythm with right bundle branch block and was specific ST-T wave changes. Patient labs are significant for a potassium of 7.8, BUN 70 creatinine 9.6 glucose of 248, AST 61, ALT 54 alk phos of 134 hemoglobin 8.6 WBC 12.4 platelet count 04/20/1958, troponin 0.0126. Chest x-ray O was ordered which suggested early interstitial edema. VQ scan was performed which was low probability of PE. Echocardiogram was ordered for Rita EF of 55-60%, [id number] pulmonary hypertension, bicuspid aortic valve. Patient underwent emergent dialysis for hyperkalemia calcium chloride 2 , dextrose and insulin. Patient is also undergoing treatment for right lower extremity wound ulcer from of fall that happened 3 weeks ago. She has a significant growth in the right lower extremity which measures around 10 cm in size with surrounding inflammation. Cardiology, nephrology and infectious disease will be following the patient Review of Systems Constitutional: Denies chills, Denies fever, endorses lethargy, endorses malaise, Denies poor appetite, endorses weakness, Denies weight loss Eyes: denies decreased vision, denies diplopia, denies discharge, denies pain Ears: deny: decreased hearing Ears, nose, mouth and throat: Denies dental pain, Denies headache, Denies nasal discharge, Denies nose pain Cardiovascular: Endorses on and off chest pain, endorses decreased exercise tolerance, endorses edema, Denies high blood pressure, Denies irregular heart beat, Denies palpitations, Denies paroxysmal nocturnal dyspnea, Denies rapid heart beat, Denies shortness of breath Respiratory: Denies congestion, Denies cough, Denies cough with sputum, Denies dyspnea, Denies home oxygen, Denies wheezing Gastrointestinal: Denies abdominal pain, Denies change in bowel habits, Denies coffee ground emesis, Denies early satiety, Denies excessive gas, Denies heartburn, Denies hematemesis, Denies hematochezia, Denies loss of appetite, Denies nausea, Denies vomiting Genitourinary: Denies dysuria, Denies flank pain, Denies kidney stones, Denies menorrhagia, Denies urgency, Denies urinary frequency Musculoskeletal: Endorses endorses gait dysfunction, Denies limitation of motion , Denies morning stiffness, Denies muscle cramps Integumentary: Endorses endorses rash, Denies wounds, Denies brittle nails, Denies change in hair/nails, Denies darkening of skin Neurological: Denies balance difficulties, Denies change in speech, Denies double vision, Denies gait dysfunction, Denies loss of vision, Denies motor disturbance, Denies numbness, Denies paralysis, Denies paresthesias, Denies seizures Psychiatric: Denies anxiety, Denies depression Endocrine: Denies excessive sweating, Denies excessive thirst, endorses high blood sugars, Denies palpitations Hematologic/Lymphatic: Denies easy bruising, Denies lymphadenopathy Past Medical History Past Medical History: Coronary Artery Disease (CAD), Diabetes Mellitus, Dialysis , Hyperlipidemia, Hypertension, Myocardial Infarction (IN), Osteoarthritis (OA) , Thyroid Disorder Additional Past Medical History / Comment(s): per past medical charting pt's stated "pt has had 17 mi's". ischemic cardiomyopathy. IN in 2005 and September 2013, 12/29/15 STRESS WNL, Hepatitis A, ALLERGIC rhinitis,IN,ESRD/DIALYSIS- ON , CARDIO-PULMONARY ARREST 07/05/14 and pt stated she has had short term memory problems since, hypertensive nephrosclerosis, Hepatitis A,Vitamin D deficiency, constipation.dm- uses an insulin pump.HX OF FALLS, hx of a cat bit Last Myocardial Infarction Date:: 09/2013 History of Any Multi-Drug Resistant Organisms: MRSA Date of last positivie culture/infection: 2012 MDRO Source:: blood Past Surgical History: Adenoidectomy, Appendectomy, Cholecystectomy, Heart Catheterization With Stent, Hysterectomy, Tonsillectomy Additional Past Surgical History / Comment(s): mary cataracts, LAP-BAND 2004, Laparoscopic cholecystectomy, FIBULA FX has metal pins in place,Left shoulder surgery, Hemodialysis Cataract bilateral with IOL, fistula and sx to" reroute it ",gets dialysis fri-fri-fri. has insulin pump. no bp on left Past Anesthesia/Blood Transfusion Reactions: Motion Sickness, Postoperative Nausea & Vomiting (PONV) Additional Past Anesthesia/Blood Transfusion Reaction / Comment(s): blood transfusion-pt stated they gave her medication for a reaction but does'nt rememebr what the reaction was Date of Last Stent Placement:: 2014 Smoking Status: Never smoker - Past Family History Mother Family Medical History: Congestive Heart Failure (CHF), Diabetes Mellitus, Hypertension Father History Unknown: Yes Family Medical History: Diabetes Mellitus Brother(s) Family Medical History: Diabetes Mellitus, Hyperlipidemia Additional Family Medical History / Comment(s): Hypertension chronic kidney disease Medications and Allergies Home Medications Medication Instructions Recorded Confirmed Type Famotidine [Pepcid] 20 mg PO DAILY 04/29/14 09/22/17 History Aspirin EC [Ecotrin Low Dose] 81 mg PO DAILY 01/01/16 09/22/17 History Escitalopram [Lexapro] 20 mg PO DAILY 01/01/16 09/22/17 History busPIRone HCL 15 mg PO BID 01/01/16 09/22/17 History Atorvastatin [Lipitor] 80 mg PO HS 12/27/16 09/22/17 History amLODIPine [Norvasc] 10 mg PO DAILY 12/27/16 09/22/17 History Clopidogrel [Plavix] 75 mg PO Q48H 03/21/17 09/22/17 History Isosorbide Mononitrate ER [Imdur] 30 mg PO DAILY 03/21/17 09/22/17 History lamoTRIgine [LaMICtal] 100 mg PO DAILY 07/01/17 09/22/17 History lamoTRIgine [LaMICtal] 150 mg PO HS 07/01/17 09/22/17 History Calcium Acetate [PhosLo] 667 mg PO TID-W/MEALS cap 08/01/17 09/22/17 Rx Furosemide [Lasix] 40 mg PO BID #0 08/01/17 09/22/17 Rx Insulin Aspart (For Pump) [NovoLOG 0.01 unit SQ-PUMP CONTINUOUS 09/22/17 History (For Pump)] Levothyroxine Sodium [Synthroid] 25 mcg PO DAILY 09/22/17 09/22/17 History Levothyroxine Sodium [Synthroid] 200 mcg PO DAILY 09/22/17 09/22/17 History Collagenase [Santyl] 1 applic TOPICAL DAILY 09/23/17 09/23/17 History Folic Acid-Vit B Complex-Vit C 1 cap PO DAILY 09/23/17 09/23/17 History [Nephrocaps] HYDROcodone/APAP 10-325MG [[place] 1 tab PO Q6H PRN 09/23/17 09/23/17 History 10-325] LORazepam [Ativan] 1 tab PO BID 09/23/17 09/23/17 History Allergies Allergy/AdvReac Type Severity Reaction Status Date / Time adhesive Allergy Rash/Hives Verified 09/22/17 20:23 Iodinated Contrast- Oral and Allergy KIDNEY Verified 09/22/17 20:23 IV Dye FAILURE metformin Allergy SUGAR Verified 09/22/17 20:23 LEVEL INCREASE Penicillins Allergy Rash/Hives Verified 09/22/17 20:23 Physical Exam Vitals: Vital Signs Temp Pulse Pulse Resp BP BP Pulse Ox 09/23/17 12:20 98.1 F 68 18 111/40 93 L 09/23/17 08:00 98.2 F 73 18 122/56 92 L 09/23/17 04:00 97.4 F L 71 18 119/57 92 L 09/23/17 00:00 97.9 F 77 16 114/47 91 L 09/22/17 20:00 97.5 F L 70 17 114/41 92 L 09/22/17 18:59 97.8 F 76 18 140/63 96 09/22/17 18:49 87 09/22/17 18:25 64 09/22/17 18:11 64 09/22/17 17:44 67 18 143/69 99 09/22/17 16:59 62 118/51 99 09/22/17 16:07 72 09/22/17 15:35 62 09/22/17 15:18 57 L 09/22/17 15:07 68 159/65 Intake and Output 09/22/17 09/23/17 09/23/17 22:59 06:59 14:59 Intake Total 180 Output Total 0 Balance 180 Intake: Oral 180 Output: Urine 0 Other: Voiding Method Toilet Toilet Toilet # Voids 0 0 # Bowel Movements 0 Weight 111.7 kg 111.7 kg - Constitutional General appearance: cooperative, no acute distress, obese - EENT Eyes: anicteric sclerae, PERRLA, normal appearance ENT: hearing grossly normal - Neck Neck: no lymphadenopathy, normal ROM, no other, no rigidity, no stridor, no thyromegaly - Respiratory Respiratory: bilateral: Crackles with decreased air entry bilaterally - Cardiovascular Rhythm: regular Heart sounds: normal: S1, S2 Abnormal Heart Sounds: 2/5 systolic murmur, no diastolic murmur, no rub, no S3 Gallop, no S4 Gallop, no click, no other - Gastrointestinal General gastrointestinal: normal bowel sounds, soft, nontender - Integumentary Integumentary: Ulcerated 10 cm wound on the right lower extremity molina with surrounding redness. No significant drainage from the wound but the base of the wound covered with granulation tissue - Neurologic Neurologic: CNII-XII intact - Musculoskeletal Musculoskeletal: Decreased strength bilaterally - Psychiatric Psychiatric: A&O x's 3, appropriate affect Results CBC & Chem 7: 09/23/17 06:49 09/23/17 06:49 Labs: Abnormal Lab Results - Last 24 Hours (Table) 09/22/17 09/22/17 09/22/17 Range/Units 15:43 15:43 22:09 RBC (3.80-5.40) m/uL Hgb (11.4-16.0) gm/dL Hct (34.0-46.0) % MCHC (31.0-37.0) g/dL RDW (11.5-15.5) % Neutrophils # (1.3-7.7) k/uL Lymphocytes # (1.0-4.8) k/uL VBG pCO2 35 L (37-51) mmHg VBG HCO3 22 L (24-28) mmol/L Sodium (137-145) mmol/L Potassium 7.2 H* (3.5-5.1) mmol/L Chloride (98-107) mmol/L BUN (7-17) mg/dL Creatinine (0.52-1.04) mg/dL Glucose (74-99) mg/dL POC Glucose (mg/dL) 174 H (75-99) mg/dL Calcium (8.4-10.2) mg/dL AST (14-36) U/L ALT (9-52) U/L Troponin I (0.000-0.034) ng/mL Total Protein (6.3-8.2) g/dL Albumin (3.5-5.0) g/dL 09/23/17 09/23/17 09/23/17 Range/Units 04:55 06:49 06:49 RBC 2.76 L (3.80-5.40) m/uL Hgb 8.0 L (11.4-16.0) gm/dL Hct 26.5 L (34.0-46.0) % MCHC 30.3 L (31.0-37.0) g/dL RDW 19.3 H (11.5-15.5) % Neutrophils # 7.9 H (1.3-7.7) k/uL Lymphocytes # 0.5 L (1.0-4.8) k/uL VBG pCO2 (37-51) mmHg VBG HCO3 (24-28) mmol/L Sodium 136 L (137-145) mmol/L Potassium 5.3 H (3.5-5.1) mmol/L Chloride 91 L (98-107) mmol/L BUN 40 H (7-17) mg/dL Creatinine 6.50 H* (0.52-1.04) mg/dL Glucose 324 H (74-99) mg/dL POC Glucose (mg/dL) 242 H (75-99) mg/dL Calcium 7.7 L (8.4-10.2) mg/dL AST 50 H (14-36) U/L ALT 54 H (9-52) U/L Troponin I (0.000-0.034) ng/mL Total Protein 6.0 L (6.3-8.2) g/dL Albumin 3.4 L (3.5-5.0) g/dL 09/23/17 09/23/17 Range/Units 11:40 12:10 RBC (3.80-5.40) m/uL Hgb (11.4-16.0) gm/dL Hct (34.0-46.0) % MCHC (31.0-37.0) g/dL RDW (11.5-15.5) % Neutrophils # (1.3-7.7) k/uL Lymphocytes # (1.0-4.8) k/uL VBG pCO2 (37-51) mmHg VBG HCO3 (24-28) mmol/L Sodium (137-145) mmol/L Potassium (3.5-5.1) mmol/L Chloride (98-107) mmol/L BUN (7-17) mg/dL Creatinine (0.52-1.04) mg/dL Glucose (74-99) mg/dL POC Glucose (mg/dL) 269 H (75-99) mg/dL Calcium (8.4-10.2) mg/dL AST (14-36) U/L ALT (9-52) U/L Troponin I 0.062 H* (0.000-0.034) ng/mL Total Protein (6.3-8.2) g/dL Albumin (3.5-5.0) g/dL Thrombosis Risk Factor Assmnt - DVT/VTE Prophylaxis DVT/VTE Prophylaxis: Mechanical Prophylaxis ordered - Choose All That Apply Any of the Below Risk Factors Present?: Yes Each Factor Represents 1 point: Obesity (BMI >25) Other Risk Factors: Yes Each Risk Factor Represents 2 Points: Age 61-74 years Other congenital or acquired thrombophilia - If yes, enter type in comment: No Thrombosis Risk Factor Assessment Total Risk Factor Score: 3 Thrombosis Risk Factor Assessment Level: Moderate Risk Assessment and Plan Plan: 1. Hyperkalemia secondary to end-stage renal disease. 2 doses of Kayexalate, 2 doses of calcium chloride, insulin and dextrose given with with improvement of potassium. Dialysis performed yesterday and today. Nephrology following patient 2. Chest pain with history of CAD: Post PCI with angioplasty and stent to stent placement or primary this year had been seeing cardiology Dr. DOLLY Jc regular basis . she is to continue on double antiplatelet agents statins and beta blockers. Troponins 3. EKG in with nonspecific ST or T-wave changes. Cardiology not planning to do any intervention in this visit. Echocardiogram 3 end-stage chronic kidney disease on hemodialysis 3 times a week consult nephrology continue dialysis as outpatient to resume treatment as scheduled Friday schedule. 4 type 2 diabetes on insulin pump: Continue insulin via pump continue Accu-Chek with sliding scales coverage as well. 5 hyperlipidemia: Continue Lipitor at 40 mg daily changes were made. 6 asthma/COPD: Continue Pulmicort along with DuoNeb 4 times a day. 7 hypothyroidism: Continue levothyroxine with 50 g daily. 8. Known history off anxiety and depression are stable on Lexapro and BuSpar along with Ativan. Ativan reduced to 0.5 mg at bedtime from 1 mg twice a day. Patient is taking high amount of Ativan which is causing her to fall frequently. 9. Right lower extremity ulcerated wounds secondary to trauma from a fall with signs of poor healing. Wound care. Infectious disease consulted. Patient might need to prednisone during this visit, vascular surgery consulted 10 GERD/GI prophylaxis: Continue Pepcid 20 mg daily 11. Hypertensive cardiac vessel disease on amlodipine 10 mg daily Lasix 80 mg twice a day Imdur 30 mg daily 12 Chronic pain syndrome: Resume hydrocodone DVT prophylaxis heaprin q12 Admission date 1-2 inpatient nights to be stabilized Discharge plan: [facility].
[2017-09-23 17:10] LABS: Glucose,Whole Blood 105 mg/dL (75-99)
[2017-09-23] MEDS: COLLAGENASE 250 UNIT/GM OINTMENT 30 GM TUBE TOPICAL SCH (17:16)
[2017-09-23] MEDS: INSULIN PUMP MEAL BOLUS 1 UNIT MISC MISCELLANE SCH ×2 (17:59→22:02)
[2017-09-23] MEDS: HYDROcodone/APAP 10-325MG 1 EACH TAB PO PRN (20:39)
[2017-09-23] MEDS: ATORVASTATIN 80 MG TAB PO SCH (20:40)
[2017-09-23] MEDS: lamoTRIgine 25 MG TAB PO SCH (20:41)
[2017-09-23 21:01] LABS: Glucose,Whole Blood 54 mg/dL (75-99)
[2017-09-23 21:03] LABS: Hemoglobin A1C 6.3 % (4.0-6.0)
[2017-09-23 21:55] LABS: Glucose,Whole Blood 82 mg/dL (75-99)
[2017-09-24 01:17] LABS: Glucose,Whole Blood 151 mg/dL (75-99)
[2017-09-24] MEDS: LEVOTHYROXINE 25 MCG TAB PO SCH (06:10)
[2017-09-24] MEDS: LEVOTHYROXINE 100 MCG TAB PO SCH (06:10)
[2017-09-24 06:13] LABS: Glucose,Whole Blood 216 mg/dL (75-99)
[2017-09-24 06:50] LABS: Anisocytosis Slight; Basophils % (A) 0 %; Eosinophils # (A) 0.3 k/uL (0-0.7); Eosinophils % (A) 4 %; HCT 28.3 % (34.0-46.0); HGB 8.3 gm/dL (11.4-16.0); Hypochromasia Marked; Lymphocytes # (A) 0.8 k/uL (1.0-4.8); Lymphocytes % (A) 10 %; MCH 28.7 pg (25.0-35.0); MCHC 29.5 g/dL (31.0-37.0); MCV 97.4 fL (80.0-100.0); Macrocytosis Slight; Mean Platelet Volume 6.9; Monocytes # (A) 0.4 k/uL (0-1.0); Monocytes % (A) 5 %; Neutrophils # (A) 6.2 k/uL (1.3-7.7); Neutrophils % (A) 78 %; Platelet Count 406 k/uL (150-450); RDW 19.1 % (11.5-15.5)
[2017-09-24] MEDS ORDERED: LIDOCAINE 1% (PF) 10MG/ML VIAL SQ ONE (07:00)
[2017-09-24] MEDS: CALCIUM ACETATE 667 MG CAP PO SCH ×3 (07:05→17:38)
[2017-09-24] MEDS: INSULIN PUMP MEAL BOLUS 1 UNIT MISC MISCELLANE SCH ×3 (07:05→17:39)
[2017-09-24 07:36] LABS: Albumin 3.3 g/dL (3.5-5.0); Potassium 4.3 mmol/L (3.5-5.1); Total Bilirubin 0.5 mg/dL (0.2-1.3); Total Protein 6.2 g/dL (6.3-8.2)
[2017-09-24] MEDS ORDERED: LIDOCAINE 1% INJ 10MG/ML (20 ML MDV) SQ ONE (07:45)
[2017-09-24 08:13] VITALS: PULSE 66; TEMP 97
--- NOTE | 2017-09-24 08:41 | CONS ---
CONSULTATION This is a 62-year-old female known to us from the office. Patient has history of chronic renal failure. Patient on dialysis through the left upper arm AV fistula graft. The patient has not followed up in my office for some time. The patient has been admitted with history of hyperkalemia, history of chest pain, history of end-stage renal failure, history of type 2 diabetes. The patient had has history of injury to the right lower extremity with large open wound on the medial lateral aspect of the right lower leg. There is a some granulation tissue noted on the lower extremity and also there is a eschar on the part of the wound which needs debridement. PHYSICAL EXAMINATION: On examination, patient was seen in her room. Her vital signs were stable. NECK: Supple. Trachea central. CHEST: Clear to auscultation. The patient has a left upper arm brachial fistula which is patent. Femorals are 1+. The patient has a large wound on the medial lateral aspect of her lower leg with large drainage and eschar which needs debridement. We will arrange. MMODL / IJN: [id number] /
--- NOTE | 2017-09-24 08:53 | P.PN ---
Subjective Progress Note Date: 09/24/17 Principal diagnosis: Coronary artery disease This is a 62-year-old female who follows with Dr. Jovana Jc in the office, she has a known history of end-stage renal disease on hemodialysis, coronary artery disease with multivessel PCI, hypertension, diabetes, obesity, hypothyroidism. The patient was admitted directly to the hospital from the dialysis center because she was having mild chest discomfort. In the ER the EKG showed sinus rhythm with wide complex QRS concerning for hyperkalemia. The potassium was 7.8. The patient underwent dialysis after that and the potassium came back to normal. Before she presented to the hospital she missed dialysis on Friday because she was not feeling well. On follow-up with her today, she denies having any chest pain or chest discomfort, denies having any difficulty breathing, feeling of heart racing or fluttering, dizziness or lightheadedness. She does have right lower extremities wound and she has been followed at the wound center. She is on maximize medical treatment consistent of dual antiplatelet therapy along with statin. She is not on beta uri because she is slightly bradycardic with a resting heart rate in the 60s. Objective - Vital Signs Vital signs: Vital Signs Temp 97.0 F L 09/24/17 08:00 Pulse 66 09/24/17 08:00 Resp 18 09/24/17 08:00 BP 127/49 09/24/17 08:00 Pulse Ox 96 09/24/17 08:00 Intake & Output 09/23/17 09/24/17 09/24/17 18:59 06:59 18:59 Intake Total 180 240 Output Total 0 Balance 180 240 Weight 111.7 kg 114.5 kg Intake: Oral 180 240 Output: Urine 0 Other: Voiding Method Toilet Toilet # Voids 0 # Bowel Movements 0 - Constitutional General appearance: Present: no acute distress - Respiratory Respiratory: bilateral: CTA - Cardiovascular Rhythm: regular Heart sounds: normal: S1, S2 - Labs CBC & Chem 7: 09/24/17 06:02 09/24/17 06:02 Labs: Abnormal Lab Results - Last 24 Hours (Table) 09/23/17 09/23/17 09/23/17 Range/Units 06:49 11:40 12:10 RBC (3.80-5.40) m/uL Hgb (11.4-16.0) gm/dL Hct (34.0-46.0) % MCHC (31.0-37.0) g/dL RDW (11.5-15.5) % Lymphocytes # (1.0-4.8) k/uL Sodium (137-145) mmol/L BUN (7-17) mg/dL Creatinine (0.52-1.04) mg/dL Glucose (74-99) mg/dL POC Glucose (mg/dL) 269 H (75-99) mg/dL Hemoglobin A1c 6.3 H (4.0-6.0) % Calcium (8.4-10.2) mg/dL AST (14-36) U/L ALT (9-52) U/L Troponin I 0.062 H* (0.000-0.034) ng/mL Total Protein (6.3-8.2) g/dL Albumin (3.5-5.0) g/dL 09/23/17 09/23/17 09/23/17 Range/Units 17:00 17:45 20:54 RBC (3.80-5.40) m/uL Hgb (11.4-16.0) gm/dL Hct (34.0-46.0) % MCHC (31.0-37.0) g/dL RDW (11.5-15.5) % Lymphocytes # (1.0-4.8) k/uL Sodium (137-145) mmol/L BUN (7-17) mg/dL Creatinine (0.52-1.04) mg/dL Glucose (74-99) mg/dL POC Glucose (mg/dL) 105 H 54 L (75-99) mg/dL Hemoglobin A1c (4.0-6.0) % Calcium (8.4-10.2) mg/dL AST (14-36) U/L ALT (9-52) U/L Troponin I 0.077 H* (0.000-0.034) ng/mL Total Protein (6.3-8.2) g/dL Albumin (3.5-5.0) g/dL 09/23/17 09/24/17 09/24/17 Range/Units 23:55 00:14 06:02 RBC 2.90 L (3.80-5.40) m/uL Hgb 8.3 L (11.4-16.0) gm/dL Hct 28.3 L (34.0-46.0) % MCHC 29.5 L (31.0-37.0) g/dL RDW 19.1 H (11.5-15.5) % Lymphocytes # 0.8 L (1.0-4.8) k/uL Sodium (137-145) mmol/L BUN (7-17) mg/dL Creatinine (0.52-1.04) mg/dL Glucose (74-99) mg/dL POC Glucose (mg/dL) 151 H (75-99) mg/dL Hemoglobin A1c (4.0-6.0) % Calcium (8.4-10.2) mg/dL AST (14-36) U/L ALT (9-52) U/L Troponin I 0.081 H* (0.000-0.034) ng/mL Total Protein (6.3-8.2) g/dL Albumin (3.5-5.0) g/dL 09/24/17 09/24/17 Range/Units 06:02 06:11 RBC (3.80-5.40) m/uL Hgb (11.4-16.0) gm/dL Hct (34.0-46.0) % MCHC (31.0-37.0) g/dL RDW (11.5-15.5) % Lymphocytes # (1.0-4.8) k/uL Sodium 136 L (137-145) mmol/L BUN 26 H (7-17) mg/dL Creatinine 5.07 H* (0.52-1.04) mg/dL Glucose 189 H (74-99) mg/dL POC Glucose (mg/dL) 216 H (75-99) mg/dL Hemoglobin A1c (4.0-6.0) % Calcium 8.0 L (8.4-10.2) mg/dL AST 41 H (14-36) U/L ALT 55 H (9-52) U/L Troponin I (0.000-0.034) ng/mL Total Protein 6.2 L (6.3-8.2) g/dL Albumin 3.3 L (3.5-5.0) g/dL Assessment and Plan Assessment: Assessment #1 hyperkalemia. The patient missed dialysis on Friday #2 end-stage renal disease on hemodialysis #3 coronary artery disease #4 hypertension #5 dyslipidemia Plan #1 continue the current medical regimen. The patient is on maximize medical treatment for coronary artery disease #2 from the cardiovascular standpoint of view, no need for any further cardiac workup.
[2017-09-24 09:55] LABS: Glucose,Whole Blood 38 mg/dL (75-99)
--- NOTE | 2017-09-24 10:02 | PCN ---
PROCEDURE NOTE PREOPERATIVE DIAGNOSIS: Chronic wound right lower extremity, measurement is 8 x 8 cm x 1 cm depth. PROCEDURE: Debridement of the wound down to subcutaneous tissue. This patient has a history of fall about 4 weeks ago and she developed large wound on the right lower extremity with necrotic skin and some granulation tissue noted on the part of the wound. There is some drainage noted and mild redness noted. Right foot was prepped and draped in the usual sterile manner and 1% lidocaine plain was infiltrated. Using a sharp knife, we excised the necrotic skin down to subcutaneous tissue. All the necrotic skin was removed by the sharp knife and then we used a curette and some old clot was removed. The wound was irrigated with saline. No active bleeding was noted. PLAN: We will use Santyl cream on daily basis and patient will follow up with me next week in the office. Then we will make arrangement to follow in the wound clinic at [facility] because patient has dialysis Friday, Friday, and Friday and we have adjusted the timing and the date. Patient tolerated the procedure well. MARCELLA / ROBELN: [id number] /
[2017-09-24] MEDS: FUROSEMIDE 40 MG TAB PO SCH (10:04)
[2017-09-24] MEDS: amLODIPine 10 MG TAB PO SCH (10:04)
[2017-09-24] MEDS: ISOSORBIDE MONONITRATE ER 30 MG TAB.ER.24H PO SCH (10:04)
[2017-09-24] MEDS: lamoTRIgine 100 MG TAB PO SCH (10:04)
[2017-09-24] MEDS: HYDROcodone/APAP 10-325MG 1 EACH TAB PO PRN ×2 (10:05→16:06)
[2017-09-24] MEDS: ASPIRIN 81 MG PO SCH (10:05)
[2017-09-24] MEDS: busPIRone HCl 5 MG TAB PO SCH (10:05)
[2017-09-24] MEDS: ESCITALOPRAM 20 MG TAB PO SCH (10:07)
[2017-09-24] MEDS: FAMOTIDINE 20 MG TAB PO SCH (10:08)
[2017-09-24 11:07] LABS: Glucose,Whole Blood 85 mg/dL (75-99)
[2017-09-24 12:06] LABS: Glucose,Whole Blood 99 mg/dL (75-99)
[2017-09-24] MEDS: COLLAGENASE 250 UNIT/GM OINTMENT 30 GM TUBE TOPICAL SCH (12:10)
--- NOTE | 2017-09-24 12:26 | XR ---
EXAMINATION TYPE: XR wrist complete RT DATE OF EXAM: 09/24/2017 COMPARISON: None HISTORY: 62 year-old female right wrist pain and swelling, evaluate for fracture TECHNIQUE: 4 views FINDINGS: There is widening of the scapholunate interval at 3 mm. Slight negative ulnar variance. Radioscaphoid joint space is maintained. Dorsal soft tissue swelling. No acute fracture, subluxation, or dislocati on seen. IMPRESSION: Scapholunate interval widening suggesting age indeterminate scapholunate ligament tear. Clinically c orrelate for wrist instability and timeframe for onset of symptoms. Soft tissue swelling. No other ac wilfredo osseous abnormality seen.
[2017-09-24 13:06] VITALS: BP 136/54
--- NOTE | 2017-09-24 14:10 | P.DS ---
Providers Date of admission: 09/22/17 16:56 Expected date of discharge: 09/24/17 Attending physician: Delmi Goel MD Consults: 09/22/17 16:56 Consult Physician Stat Consulting Provider: Rom Cleveland Consult Reason/Comments: Chest pain Do you want consulting provider notified?: Yes Consult Physician Stat Consulting Provider: Cherie Talley Consult Reason/Comments: Renal failure, on dialysis, hypercalcemia, pulmonary edema Do you want consulting provider notified?: Yes 09/23/17 12:22 Consult Physician Routine Consulting Provider: Josué Chin Consult Reason/Comments: wound, abx Do you want consulting provider notified?: Yes Consult Physician Routine Consulting Provider: German Dupree Consult Reason/Comments: wound debridement Do you want consulting provider notified?: Yes Primary care physician: Kimberli Gar [facility] Course: The patient is a pleasant 62-year-old female patient who sees Dr. Gar and Dr. JAE Talley as an outpatient with a past medical history significant for coronary artery disease and prior coronary artery stenting with the patient underwent stenting of the proximal left anterior descending artery as well as ramus intermedius in April 2014, diabetes type 2 on insulin pump, end stage renal disease on hemodialysis Friday, as well as dyslipidemia was last admitted in July for cat bite and associated cellulitis. Patient was found to be confused during that admission and was sent to [facility] for rehab. Patient comes in with generalized weakness associated with on and off chest pain for the past 2 days. According to patient she missed her last dialysis session since she was not feeling well and came to the ER. On evaluation of EKG patient was found to be in junctional rhythm with right bundle branch block and was specific ST-T wave changes. Patient labs are significant for a potassium of 7.8, BUN 70 creatinine 9.6 glucose of 248, AST 61, ALT 54 alk phos of 134 hemoglobin 8.6 WBC 12.4 platelet count 04/20/1958, troponin 0.0126. Chest x-ray O was ordered which suggested early interstitial edema. VQ scan was performed which was low probability of PE. Echocardiogram was ordered for Rita EF of 55-60%, [id number] pulmonary hypertension, bicuspid aortic valve. Patient underwent emergent dialysis for hyperkalemia calcium chloride 2 , dextrose and insulin. Patient is also undergoing treatment for right lower extremity wound ulcer from of fall that happened 3 weeks ago. She has a significant growth in the right lower extremity which measures around 10 cm in size with surrounding inflammation. Cardiology, nephrology and infectious disease will be following the patient 09/24: Patient underwent debridement of the right leg wound with Dr. Dupree and local wound care as a form of Santyl to be changed daily. Plan is for patient to follow-up in the wound healing center with Dr. Dupree. Wound looks very clean at this time and consult with Dr. Chin will be canceled. Patient did have a drop in her blood sugar of 38 and she is managing her own insulin pump. She does have plan for follow-up with endocrinology as an outpatient. Right wrist x-ray shows an indeterminate scapholunate ligament tear. Soft tissue swelling. No acute osseous abnormality. Scars case with orthopedics and they have recommended a thumb spica brace which will be obtained at [facility]. Patient will then follow-up with Dr. Lima in 10 days. Patient is scheduled for her usual hemodialysis today and will be transferred back to [facility] in stable condition. Discharge diagnoses: 1. Hyperkalemia secondary to end-stage renal disease 2. Chest pain with history of CAD: Post PCI with angioplasty and stent to stent placement or primary this year had been seeing cardiology Dr. DOLLY Jc 3. End-stage kidney disease on hemodialysis 3 times a week 4. Type 2 diabetes on insulin pump, uncontrolled with episodes of hypoglycemia and hyperglycemia. Hemoglobin A1c is 6.3 5. Hyperlipidemia 6. COPD 7. Hypothyroidism 8. Generalized anxiety disorder and recurrent depression 9. Right lower extremity ulcerated wounds secondary to trauma from a fall with signs of poor healing. 10. GERD 11. Hypertensive cardiovascular disease 12. Chronic pain syndrome Discharge plan: Return to [facility] under the care of Dr. Gar. Impression and plan of care have been directed as dictated by the signing physician. Emely Contreras nurse practitioner acting as scribe for signing physician. Patient Condition at Discharge: Good Plan - Discharge Summary Discharge Rx Participant: No New Discharge Prescriptions: New LORazepam [Ativan] 0.5 mg PO HS PRN #3 tab PRN Reason: Anxiety Continue Famotidine [Pepcid] 20 mg PO DAILY busPIRone HCL 15 mg PO BID Escitalopram [Lexapro] 20 mg PO DAILY Aspirin EC [Ecotrin Low Dose] 81 mg PO DAILY amLODIPine [Norvasc] 10 mg PO DAILY Atorvastatin [Lipitor] 80 mg PO HS Isosorbide Mononitrate ER [Imdur] 30 mg PO DAILY Clopidogrel [Plavix] 75 mg PO Q48H lamoTRIgine [LaMICtal] 100 mg PO DAILY lamoTRIgine [LaMICtal] 150 mg PO HS Calcium Acetate [PhosLo] 667 mg PO TID-W/MEALS cap Furosemide [Lasix] 40 mg PO BID #0 Levothyroxine Sodium [Synthroid] 200 mcg PO DAILY Levothyroxine Sodium [Synthroid] 25 mcg PO DAILY Insulin Aspart (For Pump) [NovoLOG (For Pump)] 0.01 unit SQ-PUMP CONTINUOUS Folic Acid-Vit B Complex-Vit C [Nephrocaps] 1 cap PO DAILY Collagenase [Santyl] 1 applic TOPICAL DAILY HYDROcodone/APAP 10-325MG [Luzerne 10-325] 1 tab PO Q6H PRN #18 tab PRN Reason: Pain Discontinued LORazepam [Ativan] 1 tab PO BID Discharge Medication List Famotidine [Pepcid] 20 mg PO DAILY 04/29/14 [History] Aspirin EC [Ecotrin Low Dose] 81 mg PO DAILY 01/01/16 [History] Escitalopram [Lexapro] 20 mg PO DAILY 01/01/16 [History] busPIRone HCL 15 mg PO BID 01/01/16 [History] Atorvastatin [Lipitor] 80 mg PO HS 12/27/16 [History] amLODIPine [Norvasc] 10 mg PO DAILY 12/27/16 [History] Clopidogrel [Plavix] 75 mg PO Q48H 03/21/17 [History] Isosorbide Mononitrate ER [Imdur] 30 mg PO DAILY 03/21/17 [History] lamoTRIgine [LaMICtal] 100 mg PO DAILY 07/01/17 [History] lamoTRIgine [LaMICtal] 150 mg PO HS 07/01/17 [History] Calcium Acetate [PhosLo] 667 mg PO TID-W/MEALS cap 08/01/17 [Rx] Furosemide [Lasix] 40 mg PO BID #0 08/01/17 [Rx] Insulin Aspart (For Pump) [NovoLOG (For Pump)] 0.01 unit SQ-PUMP CONTINUOUS 12/02 [History] Levothyroxine Sodium [Synthroid] 25 mcg PO DAILY 09/22/17 [History] Levothyroxine Sodium [Synthroid] 200 mcg PO DAILY 09/22/17 [History] Collagenase [Santyl] 1 applic TOPICAL DAILY 09/23/17 [History] Folic Acid-Vit B Complex-Vit C [Nephrocaps] 1 cap PO DAILY 09/23/17 [History] HYDROcodone/APAP 10-325MG [Luzerne 10-325] 1 tab PO Q6H PRN #18 tab 09/24/17 [Rx] LORazepam [Ativan] 0.5 mg PO HS PRN #3 tab 09/24/17 [Rx] Follow up Appointment(s)/Referral(s): Kimberli Gar MD [Primary Care Provider] - 10/02/17 2:00 pm () Activity/Diet/Wound Care/Special Instructions: Thumb spica brace for the right hand. Avelina
--- NOTE | 2017-09-24 14:14 | PN ---
PROGRESS NOTE Patient is seen for followup for end-stage renal disease. She was admitted to the hospital after having missed dialysis. She was severely hyperkalemic and fluid overloaded. Patient has had 2 treatments of dialysis. She is scheduled for hemodialysis again today, which is her usual day. PHYSICAL EXAMINATION: Blood pressure is 136/54, heart rate 66 per minute. She is afebrile. Examination of the heart, S1, S2. Examination of the lungs, bilateral breath sounds are heard. Abdomen is soft, morbidly obese. Examination of the lower extremities shows no significant edema. Patient has a wound on her right lower extremity which is currently dressed. LABS: Show sodium 136, potassium 4.3, BUN 26, serum creatinine 5.07, hemoglobin 8.3 g/dL. ASSESSMENT: 1. End-stage renal disease, on hemodialysis on a Friday, Friday, Friday schedule. Patient will be dialyzed today. 2. Complaints of dizziness on standing. We will check orthostatic blood pressures and we may need to use midodrine as outpatient on dialysis. 3. CKD mineral bone disorder, maintained on PhosLo. 4. Anemia of chronic disease, currently on Aranesp. 5. Hypertension. Blood pressure is not elevated. Patient is on Norvasc. We will check orthostatics and adjust Norvasc if needed. 6. Severe hyperkalemia on initial admission, currently improved. 7. Fluid overload, now improved. PLAN: Hemodialysis today. Check orthostatic blood pressures. Patient can be discharged from nephrology standpoint after hemodialysis today. MMODL / IJN: [id number] /
[2017-09-24 16:38] LABS: Glucose,Whole Blood 179 mg/dL (75-99)
[2017-09-24] MEDS ORDERED: GELATIN SPONGE,ABSORB (SMALL) 1 EACH SPONGE ONE (17:30)
--- NOTE | 2017-09-24 18:58 | XR ---
EXAMINATION TYPE: XR chest 1V DATE OF EXAM: 09/24/2017 COMPARISON: 09/22/2017 HISTORY: Heart failure. Short of breath TECHNIQUE: Single frontal view of the chest is obtained. FINDINGS: There is no heart failure nor confluent pneumonic infiltrate. There are chest leads. Costo phrenic angles are clear. IMPRESSION: No active cardiopulmonary disease. There is clearing of the mild pulmonary congestion co mpared to old exam.
[2017-09-25] MEDS ORDERED: HYDROcodone/APAP 10-325MG 1 EACH TAB ONE (02:38)
== END 2017-09-24 20:22 | DRG 622 ==
LOC: EC 11:34 → 6SEL 16:56
PROVIDERS: ADMIT Internal Medicine; ATTEND Internal Medicine
PROC: 5A1D70Z Performance of Urinary Filtration, Intermittent, Less than 6 Hours Per Day (ICD-10-PCS; 2017-09-23)
PROC: 0JBN0ZZ Excision of Right Lower Leg Subcutaneous Tissue and Fascia, Open Approach (ICD-10-PCS; principal; 2017-09-24)
DX: E87.5 Hyperkalemia (principal); N18.6 End stage renal disease; I50.33 Acute on chronic diastolic (congestive) heart failure; F33.9 Major depressive disorder, recurrent, unspecified; Z68.41 Body mass index [BMI] 40.0-44.9, adult; I13.2 Hypertensive heart and chronic kidney disease with heart failure and with stage 5 chronic kidney disease, or end stage renal disease; I25.10 Atherosclerotic heart disease of native coronary artery without angina pectoris; E11.22 Type 2 diabetes mellitus with diabetic chronic kidney disease; I45.10 Unspecified right bundle-branch block; D63.1 Anemia in chronic kidney disease; E83.89 Other disorders of mineral metabolism; E03.9 Hypothyroidism, unspecified; J44.9 Chronic obstructive pulmonary disease, unspecified; E66.01 Morbid (severe) obesity due to excess calories; E78.5 Hyperlipidemia, unspecified; E83.52 Hypercalcemia; I25.5 Ischemic cardiomyopathy; K21.9 Gastro-esophageal reflux disease without esophagitis; F41.1 Generalized anxiety disorder; G89.4 Chronic pain syndrome; R77.8 Other specified abnormalities of plasma proteins; S81.801A Unspecified open wound, right lower leg, initial encounter; I44.4 Left anterior fascicular block; R79.1 Abnormal coagulation profile; Z96.41 Presence of insulin pump (external) (internal); Z99.2 Dependence on renal dialysis; Z95.5 Presence of coronary angioplasty implant and graft; I25.2 Old myocardial infarction; Z86.74 Personal history of sudden cardiac arrest; Z98.84 Bariatric surgery status; Z91.81 History of falling; Z91.15 Patient's noncompliance with renal dialysis; Z79.4 Long term (current) use of insulin; Z82.49 Family history of ischemic heart disease and other diseases of the circulatory system; Z83.3 Family history of diabetes mellitus; Z90.710 Acquired absence of both cervix and uterus; Z90.49 Acquired absence of other specified parts of digestive tract; Z84.1 Family history of disorders of kidney and ureter
CPT/HCPCS: 36415; 71045; 71046; 78582; 80053; 82550; 82553; 82803; 83036; 83735; 83880; 84132; 84484; 85025; 85379; 85610; 85730; 90935; 93005; 93306; 94644; 94645; 96374; 96375; 96376; 99291

== ENCOUNTER 2017-10-13 09:26 | Inpatient (IN) | payer MEDICARE, BC, OTHER ==
[2017-10-13] MEDS ORDERED: VANCOMYCIN IV PER PHARMACY 1 EACH MISC MISCELLANE PRN ×2 (09:34→14:41)
[2017-10-13 10:12] LABS: INR 1.1 (<1.2); Partial Thromboplastin Time 27.1 sec (22.0-30.0); Prothrombin Time 10.3 sec (9.0-12.0)
[2017-10-13 10:14] LABS: Anisocytosis Slight; Basophils % (A) 0 %; Eosinophils # (A) 0.4 k/uL (0-0.7); Eosinophils % (A) 5 %; HGB 8.7 gm/dL (11.4-16.0); Hypochromasia Marked; Lymphocytes # (A) 0.6 k/uL (1.0-4.8); Lymphocytes % (A) 7 %; MCH 28.3 pg (25.0-35.0); Mean Platelet Volume 7.4; Monocytes # (A) 0.4 k/uL (0-1.0); Monocytes % (A) 5 %; Neutrophils # (A) 6.6 k/uL (1.3-7.7); Neutrophils % (A) 81 %; Platelet Count 330 k/uL (150-450); RBC 3.06 m/uL (3.80-5.40); RDW 18.4 % (11.5-15.5); WBC 8.2 k/uL (3.8-10.6)
[2017-10-13 10:15] LABS: Albumin 3.4 g/dL (3.5-5.0); Calcium 7.6 mg/dL (8.4-10.2); MCV 91.5 fL (80.0-100.0); Magnesium 2.7 mg/dL (1.6-2.3); Potassium 4.5 mmol/L (3.5-5.1); Total Bilirubin 0.4 mg/dL (0.2-1.3); Total Protein 6.3 g/dL (6.3-8.2)
--- NOTE | 2017-10-13 10:16 | ED ---
General Adult HPI - General Chief complaint: Chest Pain Stated complaint: Chest Pain Time Seen by Provider: 10/13/17 09:30 Source: patient, EMS, RN notes reviewed, old records reviewed Mode of arrival: EMS Limitations: no limitations - History of Present Illness Initial comments: 62-year-old female presenting for evaluation of left-sided chest pain. Patient' s pain began approximately one hour prior to arrival. She has no history of CAD status post stenting. She's had multiple heart attacks according to the patient in the past. She is currently on aspirin and Plavix. Patient is currently on hemodialysis, last treatment was Friday. She denies any significant dyspnea. Denies lower extremity swelling. Patient is currently being treated for wound on her right breast and right lower extremity. Patient's pain is resolved at the time my evaluation. She had complained of severe left-sided chest pain. She was given nitroglycerin and aspirin prior to arrival. She has no complaints at the time my evaluation. No nausea vomiting. No dyspnea, no chest pain, no abdominal pain. - Related Data Home Medications Medication Instructions Recorded Confirmed Famotidine [Pepcid] 20 mg PO DAILY@0800 04/29/14 10/13/17 Aspirin EC [Ecotrin Low Dose] 81 mg PO DAILY@1700 01/01/16 10/13/17 Escitalopram [Lexapro] 20 mg PO DAILY@0800 01/01/16 10/13/17 busPIRone HCL 15 mg PO BID@0800,2100 01/01/16 10/13/17 Atorvastatin [Lipitor] 80 mg PO HS@2100 12/27/16 10/13/17 amLODIPine [Norvasc] 10 mg PO DAILY@0900 12/27/16 10/13/17 Clopidogrel [Plavix] 75 mg PO Q48H 03/21/17 10/13/17 Isosorbide Mononitrate ER [Imdur] 30 mg PO DAILY@0800 03/21/17 10/13/17 lamoTRIgine [LaMICtal] 100 mg PO DAILY@0800 07/01/17 10/13/17 lamoTRIgine [LaMICtal] 150 mg PO HS@2100 07/01/17 10/13/17 Insulin Aspart (For Pump) [NovoLOG 0.01 unit SQ-PUMP CONTINUOUS 09/22/17 (For Pump)] Levothyroxine Sodium [Synthroid] 25 mcg PO DAILY@0600 09/22/17 10/13/17 Levothyroxine Sodium [Synthroid] 200 mcg PO DAILY@0600 09/22/17 10/13/17 Collagenase [Santyl] 1 applic TOPICAL DAILY 09/23/17 10/13/17 Folic Acid-Vit B Complex-Vit C 1 cap PO DAILY@1700 09/23/17 10/13/17 [Nephrocaps] Bisacodyl [Dulcolax] 10 mg RECTAL DAILY@0600 PRN 10/13/17 10/13/17 Furosemide [Lasix] 80 mg PO BID@0600,1400 10/13/17 10/13/17 LORazepam [Ativan] 0.5 mg PO BID@0800,2100 10/13/17 10/13/17 Ondansetron HCl [Zofran] 4 mg PO Q8H PRN 10/13/17 10/13/17 Previous Rx's Medication Instructions Recorded Calcium Acetate [PhosLo] 667 mg PO TID-W/MEALS cap 08/01/17 HYDROcodone/APAP 10-325MG [[place] 1 tab PO Q6H PRN #18 tab 09/24/17 10-325] Allergies Allergy/AdvReac Type Severity Reaction Status Date / Time adhesive Allergy Rash/Hives Verified 10/13/17 09:35 Iodinated Contrast- Oral and Allergy KIDNEY Verified 10/13/17 09:35 IV Dye FAILURE metformin Allergy SUGAR Verified 10/13/17 09:35 LEVEL INCREASE Penicillins Allergy Rash/Hives Verified 10/13/17 09:35 Review of Systems ROS Statement: Those systems with pertinent positive or pertinent negative responses have been documented in the HPI. ROS Other: All systems not noted in ROS Statement are negative. Past Medical History Past Medical History: Coronary Artery Disease (CAD), Diabetes Mellitus, Dialysis , Hyperlipidemia, Hypertension, Myocardial Infarction (SC), Osteoarthritis (OA) , Thyroid Disorder Additional Past Medical History / Comment(s): per past medical charting pt's stated "pt has had 17 mi's". ischemic cardiomyopathy. SC in 2005 and September 2013, 12/29/15 STRESS WNL, Hepatitis A, ALLERGIC rhinitis,SC,ESRD/DIALYSIS- ON --, CARDIO-PULMONARY ARREST 07/05/14 and pt stated she has had short term memory problems since, hypertensive nephrosclerosis, Hepatitis A,Vitamin D deficiency, constipation.dm- uses an insulin pump.HX OF FALLS, hx of a cat bit Last Myocardial Infarction Date:: 09/2013 History of Any Multi-Drug Resistant Organisms: MRSA Date of last positivie culture/infection: 09/27/17 MDRO Source:: BREAST Past Surgical History: Adenoidectomy, Appendectomy, Cholecystectomy, Heart Catheterization With Stent, Hysterectomy, Tonsillectomy Additional Past Surgical History / Comment(s): mary cataracts, LAP-BAND 2004, Laparoscopic cholecystectomy, FIBULA FX has metal pins in place,Left shoulder surgery, Hemodialysis Cataract bilateral with IOL, fistula and sx to" reroute it ",gets dialysis fri-fri-fri. has insulin pump. no bp on left Past Anesthesia/Blood Transfusion Reactions: Motion Sickness, Postoperative Nausea & Vomiting (PONV) Additional Past Anesthesia/Blood Transfusion Reaction / Comment(s): blood transfusion-pt stated they gave her medication for a reaction but does'nt rememebr what the reaction was Date of Last Stent Placement:: 2014 Past Psychological History: Anxiety, Bipolar, Depression Smoking Status: Never smoker Past Alcohol Use History: None Reported Past Drug Use History: None Reported - Past Family History Mother Family Medical History: Congestive Heart Failure (CHF), Diabetes Mellitus, Hypertension Father History Unknown: Yes Family Medical History: Diabetes Mellitus Brother(s) Family Medical History: Diabetes Mellitus, Hyperlipidemia Additional Family Medical History / Comment(s): Hypertension chronic kidney disease General Exam Limitations: no limitations General appearance: alert, in no apparent distress Head exam: Present: atraumatic, normocephalic Eye exam: Present: normal appearance, PERRL Neck exam: Present: normal inspection. Absent: tenderness, meningismus Respiratory exam: Present: normal lung sounds bilaterally, chest wall tenderness. Absent: respiratory distress, wheezes Cardiovascular Exam: Present: regular rate, normal rhythm GI/Abdominal exam: Present: soft. Absent: distended, tenderness, guarding Extremities exam: Present: full ROM, normal capillary refill. Absent: pedal edema Neurological exam: Present: alert, oriented X3, CN II-XII intact. Absent: motor sensory deficit Psychiatric exam: Present: normal affect, normal mood Skin exam: Present: warm, dry. Absent: cyanosis, diaphoretic Course Vital Signs 10/13/17 10/13/17 10/13/17 09:27 10:52 11:00 Temperature 97.7 F Pulse Rate 68 63 61 Respiratory 16 16 16 Rate Blood Pressure 134/60 137/60 142/67 O2 Sat by Pulse 94 L 100 100 Oximetry 10/13/17 10/13/17 12:00 13:06 Temperature Pulse Rate 54 L 70 Respiratory 18 16 Rate Blood Pressure 127/62 157/67 O2 Sat by Pulse 100 100 Oximetry EKG Findings - EKG Comments: EKG Findings:: EKG: Sinus rhythm with first-degree AV block, right bundle branch block, left anterior fascicular block rate of 67, SD interval 214, QRS duration 152, QTC 479, there is ST segment depression in the precordial leads, this appears unchanged from previous EKG. No ST segment elevation. Medical Decision Making - Medical Decision Making 62-year-old female presenting with an episode of chest pain. Patient is on hemodialysis. She has history of CAD status post stenting. EKG appears stable by comparison to previous EKG. Chest x-rays obtained, there is pulmonary edema secondary to fluid overload. Normal white blood cell count, hemoglobin is 8.7 which is stable from previous of 8.3. There is significant elevation in BNP at 27,000, this is likely related to fluid overload in need for hemodialysis. Troponin is elevated 0.091, this is elevated chronically in this patient, will be trended given she is on hemodialysis. Patient remains chest pain-free while in the emergency department. She will be admitted for serial cardiac enzymes, telemetry, cardiology and nephrology consultation. - Lab Data Result diagrams: 10/13/17 09:45 10/13/17 09:45 Lab Results 10/13/17 10/13/17 10/13/17 Range/Units 09:45 09:45 09:45 WBC 8.2 (3.8-10.6) k/uL RBC 3.06 L (3.80-5.40) m/uL Hgb 8.7 L (11.4-16.0) gm/dL Hct 28.0 L (34.0-46.0) % MCV 91.5 D (80.0-100.0) fL MCH 28.3 (25.0-35.0) pg MCHC 31.0 (31.0-37.0) g/dL RDW 18.4 H (11.5-15.5) % Plt Count 330 (150-450) k/uL Neutrophils % 81 % Lymphocytes % 7 % Monocytes % 5 % Eosinophils % 5 % Basophils % 0 % Neutrophils # 6.6 (1.3-7.7) k/uL Lymphocytes # 0.6 L (1.0-4.8) k/uL Monocytes # 0.4 (0-1.0) k/uL Eosinophils # 0.4 (0-0.7) k/uL Basophils # 0.0 (0-0.2) k/uL Hypochromasia Marked Anisocytosis Slight PT (9.0-12.0) sec INR (<1.2) APTT (22.0-30.0) sec Sodium 133 L (137-145) mmol/L Potassium 4.5 (3.5-5.1) mmol/L Chloride 95 L (98-107) mmol/L Carbon Dioxide 23 (22-30) mmol/L Anion Gap 15 mmol/L BUN 39 H (7-17) mg/dL Creatinine 6.61 H* (0.52-1.04) mg/dL Est GFR (CKD-EPI)AfAm 7 (>60 ml/min/1.73 sqM) Est GFR (CKD-EPI)NonAf 6 (>60 ml/min/1.73 sqM) Glucose 143 H (74-99) mg/dL POC Glucose (mg/dL) (75-99) mg/dL POC Glu Chairman ID Calcium 7.6 L (8.4-10.2) mg/dL Magnesium 2.7 H (1.6-2.3) mg/dL Total Bilirubin 0.4 (0.2-1.3) mg/dL AST 24 (14-36) U/L ALT 23 (9-52) U/L Alkaline Phosphatase 117 (38-126) U/L Total Creatine Kinase 33 (30-135) U/L CK-MB (CK-2) 0.7 (0.0-2.4) ng/mL CK-MB (CK-2) Rel Index 2.1 Troponin I 0.091 H* (0.000-0.034) ng/mL NT-Pro-B Natriuret Pep pg/mL Total Protein 6.3 (6.3-8.2) g/dL Albumin 3.4 L (3.5-5.0) g/dL 10/13/17 10/13/17 10/13/17 Range/Units 09:45 09:45 12:58 WBC (3.8-10.6) k/uL RBC (3.80-5.40) m/uL Hgb (11.4-16.0) gm/dL Hct (34.0-46.0) % MCV (80.0-100.0) fL MCH (25.0-35.0) pg MCHC (31.0-37.0) g/dL RDW (11.5-15.5) % Plt Count (150-450) k/uL Neutrophils % % Lymphocytes % % Monocytes % % Eosinophils % % Basophils % % Neutrophils # (1.3-7.7) k/uL Lymphocytes # (1.0-4.8) k/uL Monocytes # (0-1.0) k/uL Eosinophils # (0-0.7) k/uL Basophils # (0-0.2) k/uL Hypochromasia Anisocytosis PT 10.3 (9.0-12.0) sec INR 1.1 (<1.2) APTT 27.1 (22.0-30.0) sec Sodium (137-145) mmol/L Potassium (3.5-5.1) mmol/L Chloride (98-107) mmol/L Carbon Dioxide (22-30) mmol/L Anion Gap mmol/L BUN (7-17) mg/dL Creatinine (0.52-1.04) mg/dL Est GFR (CKD-EPI)AfAm (>60 ml/min/1.73 sqM) Est GFR (CKD-EPI)NonAf (>60 ml/min/1.73 sqM) Glucose (74-99) mg/dL POC Glucose (mg/dL) 45 L (75-99) mg/dL POC Glu Chairman ID Margaret Manley Calcium (8.4-10.2) mg/dL Magnesium (1.6-2.3) mg/dL Total Bilirubin (0.2-1.3) mg/dL AST (14-36) U/L ALT (9-52) U/L Alkaline Phosphatase (38-126) U/L Total Creatine Kinase (30-135) U/L CK-MB (CK-2) (0.0-2.4) ng/mL CK-MB (CK-2) Rel Index Troponin I (0.000-0.034) ng/mL NT-Pro-B Natriuret Pep 05480 pg/mL Total Protein (6.3-8.2) g/dL Albumin (3.5-5.0) g/dL Disposition Clinical Impression: Renal failure, Chest pain, Elevated troponin Disposition: ADMITTED IP TO THIS HOSP Condition: Stable Is patient prescribed a controlled substance at d/c from ED?: No Referrals: Kimberli Gar MD [Primary Care Provider] - 1-2 days Decision to Admit Reason: Admit from EC Decision Date: 10/13/17 Decision Time: 12:05
--- NOTE | 2017-10-13 10:23 | XR ---
EXAMINATION TYPE: XR chest 2V DATE OF EXAM: 10/13/2017 COMPARISON: Chest x-ray September 24, 2017 HISTORY: Dull chest pain for one hour. TECHNIQUE: Frontal and lateral views of the chest are obtained. FINDINGS: There is stable mild cardiomegaly with small to tiny right-sided pleural effusion seen bes t on lateral view and associated left basilar atelectasis and/or infiltrate. Mild central vascular c ongestion is felt present. Left lung is clear. Metallic anchor left humeral head level is redemonstra jay. IMPRESSION: Cardiomegaly with suspected new mild central vascular congestion and new small to tiny r ight pleural effusion with associated right basilar atelectasis and/or infiltrate.
[2017-10-13 11:04] LABS: Creatine Kinase MB 0.7 ng/mL (0.0-2.4)
[2017-10-13 11:27] LABS: Troponin I 0.091 ng/mL (0.000-0.034)
[2017-10-13 13:24] LABS: Glucose,Whole Blood 45 mg/dL (75-99)
[2017-10-13] MEDS ORDERED: NALOXONE 0.4 MG/ML 1 ML VIAL IV PRN (13:47)
[2017-10-13] MEDS ORDERED: ACETAMINOPHEN TAB 325 MG TAB PO PRN (13:47)
[2017-10-13 13:55] LABS: Glucose,Whole Blood 65 mg/dL (75-99)
[2017-10-13] MEDS ORDERED: Insulin Aspart (For Pump) 100 UNIT/ML VIAL SQ-PUMP SCH (14:15)
[2017-10-13] MEDS ORDERED: VANCOMYCIN 1,750 MG in SODIUM CHLORIDE 0.9% 500 ML IVPB STA (14:39)
--- NOTE | 2017-10-13 14:47 | P.HPIM ---
History of Present Illness H&P Date: 10/13/17 Chief Complaint: Chest Pain The patient is a pleasant 62-year-old female patient of Dr. Gar and Dr. JAE Talley as an outpatient with a past medical history significant for coronary artery disease and prior coronary artery stenting with the patient underwent stenting of the proximal left anterior descending artery as well as ramus intermedius in April 2014, diabetes type 2 on insulin pump, end stage renal disease on hemodialysis Friday, as well as dyslipidemia was currently transiently residing subacute rehab at [facility]. Patient comes to the emergency room on and off chest pain a few hours persistent , located left sternal region, also accompanied by pain with deep inspiration, costochondritis, pain persisted till ER evaluation, chronically on Imdur, nitroglycerin did not help symptoms, he was subsequently evaluated in the emergency room. She has chronically elevated troponin, since 04/20/2017. When seen in the ER troponin was 0.91 creatinine 6.6, double basic count 8.2, hemoglobin 8.7 Patient denies any cough no fever no chills, patient denies any calf swelling or pain in the legs, he does have right leg wound, for the past 5 weeks, when the patient fell down on the dentist office, also has wound on the right breast that looks more like gangrene of his lesion that started off as a bruise, and followed there by local wound care physician. Patient completed antibiotics, leg wound is worse than what it is, with foul-smelling odor, and local cellulitic reaction. Patient denies any fever, she does have collagenase treatment topically placed to these areas, history of MRSA in the past within 1 year. History of cat Bite injury 07/23/2017. Immunizations Td is up-to-date. Patient is admitted for unstable angina, and right leg wound ulcerations right breast wound ulcerations with cellulitis. Dr. Chin on consult, Dr. Urias consult from general surgery patient might need debridement on the right breast wounds, cardiology is on consult for chest pain Last admission was in 09/22/2017 for weakness and chest pain found to be junctional rhythm, requiring emergent dialysis for hyperkalemia hemoglobin 8.6 WBC 12.4 platelet VQ scan was performed which was low probability of PE. Echocardiogram was ordered for EF of 55-60%, [id number] pulmonary hypertension, bicuspid aortic valve. Her last A1c was 6.3 09/23/2017 Review of Systems Constitutional: Reports as per HPI, Reports chills, Denies anorexia, Denies chronic headaches, Denies chronic pain, Denies daytime sleepiness, Denies fatigue, Denies fever, Denies lethargy, Denies malaise, Denies night sweats, Denies poor appetite, Denies sweats, Denies weakness, Denies weight gain, Denies weight loss Ears, nose, mouth and throat: Reports as per HPI Cardiovascular: Reports as per HPI, Reports chest pain, Reports decreased exercise tolerance, Denies claudication, Denies dyspnea on exertion, Denies edema, Denies high blood pressure, Denies irregular heart beat, Denies leg edema , Denies lightheadedness, Denies orthopnea, Denies palpitations, Denies paroxysmal nocturnal dyspnea, Denies phlebitis, Denies rapid heart beat, Denies shortness of breath, Denies syncope Respiratory: Reports as per HPI, Reports pain, Denies congestion, Denies cough, Denies cough with sputum, Denies dyspnea, Denies excessive sputum, Denies hemoptysis, Denies home oxygen, Denies pain on inspiration, Denies pleurisy, Denies respiratory infections, Denies sleep apnea, Denies snoring, Denies wheezing Gastrointestinal: Reports as per HPI, Denies abdominal pain, Denies belching, Denies bloating, Denies BRBPR, Denies change in bowel habits, Denies coffee ground emesis, Denies constipation, Denies diarrhea, Denies dyspepsia, Denies early satiety, Denies excessive gas, Denies heartburn, Denies hematemesis, Denies hematochezia, Denies indigestion, Denies jaundice, Denies lactose intolerance, Denies loss of appetite, Denies melena, Denies nausea, Denies vomiting Genitourinary: Reports as per HPI, Denies abnormal vaginal bleeding, Denies decreased libido, Denies difficulty conceiving, Denies difficulty voiding, Denies dysmenorrhea, Denies dyspareunia, Denies dysuria, Denies flank pain, Denies genital sores, Denies hematuria, Denies hot flashes, Denies incomplete emptying, Denies kidney stones, Denies menorrhagia, Denies mixed incontinence, Denies nocturia, Denies pelvic pain, Denies post void dribbling, Denies , Denies prolapse symptoms, Denies stress incontinence, Denies urge incontinence , Denies urgency, Denies urinary frequency, Denies vaginal discharge, Denies vaginal dryness, Denies vaginal itching, Denies vaginal odor Menstruation: Reports as per HPI, Denies amenorrhea, Denies amenorrhea on BC, Denies currently menstrual, Denies cycle < 21 days, Denies cycle > 35 days, Denies cycle variable, Denies menses 1-7 days, Denies menses 8 or > days, Denies menses variable, Denies period heavy, Denies period light, Denies period normal, Denies period spotting, Denies post hysterectomy, Denies postmenopausal , Denies premenarcheal Musculoskeletal: Reports as per HPI, Denies arm numbness/tingling, Denies atrophy, Denies fractures, Denies frequent falls, Denies gait dysfunction, Denies hot joints, Denies leg numbness/tingling, Denies limitation of motion, Denies loss of height, Denies low back pain, Denies morning stiffness, Denies muscle cramps, Denies muscle weakness, Denies myalgias, Denies neck pain, Denies neck stiffness, Denies prior amputations, Denies redness of joints, Denies shooting arm pain, Denies shooting leg pain Integumentary: Reports as per HPI, Reports sores, Reports wounds, Denies acne, Denies boils, Denies brittle nails, Denies change in hair/nails, Denies color changes, Denies darkening of skin, Denies depigmentation, Denies dryness, Denies foot/leg ulcers, Denies growths, Denies hirsutism, Denies lesions, Denies onychomycosis, Denies pruritus, Denies rash, Denies striae, Denies unusual bruising Neurological: Reports as per HPI, Reports gait dysfunction, Denies aphasia, Denies ataxia, Denies balance difficulties, Denies burning pain, Denies change in mentation, Denies change in smell/taste, Denies change in speech, Denies confusion, Denies convulsions, Denies double vision, Denies head injury, Denies headaches, Denies hearing difficulties, Denies lack of coordination, Denies loss of vision, Denies memory loss, Denies migraines, Denies motor disturbance, Denies numbness, Denies paralysis, Denies paresthesias, Denies seizures, Denies sensory deficit, Denies spasticity, Denies syncope, Denies tic, Denies tingling , Denies transient paralysis, Denies tremors, Denies vertigo, Denies weakness, Denies visual changes Psychiatric: Reports as per HPI, Denies anhedonia, Denies anxiety, Denies anxiety attacks, Denies change in appetite, Denies change in libido, Denies change in sleep habits, Denies confusion, Denies depression, Denies difficulty concentrating, Denies disorientation, Denies hallucinations, Denies hopelessness , Denies hypersomnia, Denies insomnia, Denies irritability, Denies memory loss, Denies mood swings, Denies paranoia, Denies sadness/tearfulness, Denies sleep disturbances, Denies suicidal ideation Endocrine: Reports as per HPI, Reports high blood sugars Hematologic/Lymphatic: Reports as per HPI, Denies easy bleeding, Denies easy bruising, Denies lymphadenopathy, Denies lymphedema, Denies thrombophilia Allergic/Immunologic: Reports as per HPI, Denies allergic rhinitis, Denies anaphylaxis, Denies angioedema, Denies gluten intolerance, Denies persistent infections, Denies seasonal allergies, Denies urticaria, Denies wheezing Past Medical History Past Medical History: Coronary Artery Disease (CAD), Diabetes Mellitus, Dialysis , Hyperlipidemia, Hypertension, Myocardial Infarction (VA), Osteoarthritis (OA) , Thyroid Disorder Additional Past Medical History / Comment(s): per past medical charting pt's stated "pt has had 17 mi's". ischemic cardiomyopathy. VA in 2005 and September 2013, 12/29/15 STRESS WNL, Hepatitis A, ALLERGIC rhinitis,VA,ESRD/DIALYSIS- ON , CARDIO-PULMONARY ARREST 07/05/14 and pt stated she has had short term memory problems since, hypertensive nephrosclerosis, Hepatitis A,Vitamin D deficiency, constipation.dm- uses an insulin pump.HX OF FALLS, hx of a cat bit Last Myocardial Infarction Date:: 09/2013 History of Any Multi-Drug Resistant Organisms: MRSA Date of last positivie culture/infection: 09/27/17 MDRO Source:: BREAST Past Surgical History: Adenoidectomy, Appendectomy, Cholecystectomy, Heart Catheterization With Stent, Hysterectomy, Tonsillectomy Additional Past Surgical History / Comment(s): mary cataracts, LAP-BAND 2004, Laparoscopic cholecystectomy, FIBULA FX has metal pins in place,Left shoulder surgery, Hemodialysis Cataract bilateral with IOL, fistula and sx to" reroute it ",gets dialysis fri-fri-fri. has insulin pump. no bp on left Past Anesthesia/Blood Transfusion Reactions: Motion Sickness, Postoperative Nausea & Vomiting (PONV) Additional Past Anesthesia/Blood Transfusion Reaction / Comment(s): blood transfusion-pt stated they gave her medication for a reaction but does'nt rememebr what the reaction was Date of Last Stent Placement:: 2014 Past Psychological History: Anxiety, Bipolar, Depression Smoking Status: Never smoker Past Alcohol Use History: None Reported Past Drug Use History: None Reported - Past Family History Mother Family Medical History: Congestive Heart Failure (CHF), Diabetes Mellitus, Hypertension Father History Unknown: Yes Family Medical History: Diabetes Mellitus Brother(s) Family Medical History: Diabetes Mellitus, Hyperlipidemia Additional Family Medical History / Comment(s): Hypertension chronic kidney disease Medications and Allergies Home Medications Medication Instructions Recorded Confirmed Type Famotidine [Pepcid] 20 mg PO DAILY@0800 04/29/14 10/13/17 History Aspirin EC [Ecotrin Low Dose] 81 mg PO DAILY@1700 01/01/16 10/13/17 History Escitalopram [Lexapro] 20 mg PO DAILY@0800 01/01/16 10/13/17 History busPIRone HCL 15 mg PO BID@0800,2100 01/01/16 10/13/17 History Atorvastatin [Lipitor] 80 mg PO HS@2100 12/27/16 10/13/17 History amLODIPine [Norvasc] 10 mg PO DAILY@0900 12/27/16 10/13/17 History Clopidogrel [Plavix] 75 mg PO Q48H 03/21/17 10/13/17 History Isosorbide Mononitrate ER [Imdur] 30 mg PO DAILY@0800 03/21/17 10/13/17 History lamoTRIgine [LaMICtal] 100 mg PO DAILY@0800 07/01/17 10/13/17 History lamoTRIgine [LaMICtal] 150 mg PO HS@2100 07/01/17 10/13/17 History Calcium Acetate [PhosLo] 667 mg PO TID-W/MEALS cap 05/18/18 07/30/18 Rx Insulin Aspart (For Pump) [NovoLOG 0.01 unit SQ-PUMP CONTINUOUS 09/22/17 History (For Pump)] Levothyroxine Sodium [Synthroid] 25 mcg PO DAILY@0600 09/22/17 10/13/17 History Levothyroxine Sodium [Synthroid] 200 mcg PO DAILY@0600 09/22/17 10/13/17 History Collagenase [Santyl] 1 applic TOPICAL DAILY 09/23/17 10/13/17 History Folic Acid-Vit B Complex-Vit C 1 cap PO DAILY@1700 09/23/17 10/13/17 History [Nephrocaps] HYDROcodone/APAP 10-325MG [Norman 1 tab PO Q6H PRN #18 tab 09/24/17 10/13/17 Rx 10-325] Bisacodyl [Dulcolax] 10 mg RECTAL DAILY@0600 PRN 10/13/17 10/13/17 History Furosemide [Lasix] 80 mg PO BID@0600,1400 10/13/17 10/13/17 History LORazepam [Ativan] 0.5 mg PO BID@0800,2100 10/13/17 10/13/17 History Ondansetron HCl [Zofran] 4 mg PO Q8H PRN 10/13/17 10/13/17 History Allergies Allergy/AdvReac Type Severity Reaction Status Date / Time adhesive Allergy Rash/Hives Verified 10/13/17 09:35 Iodinated Contrast- Oral and Allergy KIDNEY Verified 10/13/17 09:35 IV Dye FAILURE metformin Allergy SUGAR Verified 10/13/17 09:35 LEVEL INCREASE Penicillins Allergy Rash/Hives Verified 10/13/17 09:35 Physical Exam Vitals: Vital Signs Temp Pulse Resp BP Pulse Ox 10/13/17 13:52 66 18 160/69 99 10/13/17 13:06 70 16 157/67 100 10/13/17 12:00 54 L 18 127/62 100 10/13/17 11:00 61 16 142/67 100 10/13/17 10:52 63 16 137/60 100 10/13/17 09:27 97.7 F 68 16 134/60 94 L Intake and Output 10/12/17 10/13/17 10/13/17 22:59 06:59 14:59 Other: Weight 108 kg - Constitutional General appearance: cooperative, no acute distress - EENT Eyes: anicteric sclerae, EOMI, PERRLA, dentition normal, normal appearance ENT: no hard of hearing, no hearing grossly normal, NA/AT, normal oropharynx, no other, no pharyngeal erythema, no thrush, no tonsillar exudates, no tonsillar swelling - Neck Neck: no lymphadenopathy, normal ROM, no other, no rigidity, no stridor, no thyromegaly - Respiratory Respiratory: bilateral: CTA, negative: diminished, dullness, rales, rhonchi, wheezing, prolonged expiration - Cardiovascular Rhythm: regular Heart sounds: normal: S1, S2 Abnormal Heart Sounds: no systolic murmur, no diastolic murmur, no rub, no S3 Gallop, no S4 Gallop, no click, no other - Gastrointestinal General gastrointestinal: organomegaly, soft - Integumentary Integumentary: decreased turgor, normal, ulcer (Right lower fibula region leg 10 cm x 4 cm x 1 cm deep right breast 3 cm x 4.5 cm right upper quadrant cm approximately ) - Neurologic Neurologic: CNII-XII intact - Musculoskeletal Musculoskeletal: gait normal, strength equal bilaterally - Psychiatric Psychiatric: A&O x's 3, appropriate affect, intact judgment & insight Results CBC & Chem 7: 10/13/17 09:45 10/13/17 09:45 Labs: Abnormal Lab Results - Last 24 Hours (Table) 10/13/17 10/13/17 10/13/17 Range/Units 09:45 09:45 09:45 RBC 3.06 L (3.80-5.40) m/uL Hgb 8.7 L (11.4-16.0) gm/dL Hct 28.0 L (34.0-46.0) % RDW 18.4 H (11.5-15.5) % Lymphocytes # 0.6 L (1.0-4.8) k/uL Sodium 133 L (137-145) mmol/L Chloride 95 L (98-107) mmol/L BUN 39 H (7-17) mg/dL Creatinine 6.61 H* (0.52-1.04) mg/dL Glucose 143 H (74-99) mg/dL POC Glucose (mg/dL) (75-99) mg/dL Calcium 7.6 L (8.4-10.2) mg/dL Magnesium 2.7 H (1.6-2.3) mg/dL Troponin I 0.091 H* (0.000-0.034) ng/mL Albumin 3.4 L (3.5-5.0) g/dL 10/13/17 10/13/17 Range/Units 12:58 13:50 RBC (3.80-5.40) m/uL Hgb (11.4-16.0) gm/dL Hct (34.0-46.0) % RDW (11.5-15.5) % Lymphocytes # (1.0-4.8) k/uL Sodium (137-145) mmol/L Chloride (98-107) mmol/L BUN (7-17) mg/dL Creatinine (0.52-1.04) mg/dL Glucose (74-99) mg/dL POC Glucose (mg/dL) 45 L 65 L (75-99) mg/dL Calcium (8.4-10.2) mg/dL Magnesium (1.6-2.3) mg/dL Troponin I (0.000-0.034) ng/mL Albumin (3.5-5.0) g/dL Laboratory Results WBC 8.2 k/uL (3.8-10.6) 10/13/17 09:45 RBC 3.06 m/uL (3.80-5.40) L 10/13/17 09:45 Hgb 8.7 gm/dL (11.4-16.0) L 10/13/17 09:45 Hct 28.0 % (34.0-46.0) L 10/13/17 09:45 MCV 91.5 fL (80.0-100.0) D 10/13/17 09:45 MCH 28.3 pg (25.0-35.0) 10/13/17 09:45 MCHC 31.0 g/dL (31.0-37.0) 10/13/17 09:45 RDW 18.4 % (11.5-15.5) H 10/13/17 09:45 Plt Count 330 k/uL (150-450) 10/13/17 09:45 Neutrophils % 81 % 10/13/17 09:45 Lymphocytes % 7 % 10/13/17 09:45 Monocytes % 5 % 10/13/17 09:45 Eosinophils % 5 % 10/13/17 09:45 Basophils % 0 % 10/13/17 09:45 Neutrophils # 6.6 k/uL (1.3-7.7) 10/13/17 09:45 Lymphocytes # 0.6 k/uL (1.0-4.8) L 10/13/17 09:45 Monocytes # 0.4 k/uL (0-1.0) 10/13/17 09:45 Eosinophils # 0.4 k/uL (0-0.7) 10/13/17 09:45 Basophils # 0.0 k/uL (0-0.2) 10/13/17 09:45 Hypochromasia Marked 10/13/17 09:45 Anisocytosis Slight 10/13/17 09:45 PT 10.3 sec (9.0-12.0) 10/13/17 09:45 INR 1.1 (<1.2) 10/13/17 09:45 APTT 27.1 sec (22.0-30.0) 10/13/17 09:45 Sodium 133 mmol/L (137-145) L 10/13/17 09:45 Potassium 4.5 mmol/L (3.5-5.1) 10/13/17 09:45 Chloride 95 mmol/L (98-107) L 10/13/17 09:45 Carbon Dioxide 23 mmol/L (22-30) 10/13/17 09:45 Anion Gap 15 mmol/L 10/13/17 09:45 BUN 39 mg/dL (7-17) H 10/13/17 09:45 Creatinine 6.61 mg/dL (0.52-1.04) H* 10/13/17 09:45 Est GFR (CKD-EPI)AfAm 7 (>60 ml/min/1.73 sqM) 10/13/17 09:45 Est GFR (CKD-EPI)NonAf 6 (>60 ml/min/1.73 sqM) 10/13/17 09:45 Glucose 143 mg/dL (74-99) H 10/13/17 09:45 POC Glucose (mg/dL) 65 mg/dL (75-99) L 10/13/17 13:50 POC Glu Assistant [employer] Michela Mart 10/13/17 13:50 Calcium 7.6 mg/dL (8.4-10.2) L 10/13/17 09:45 Magnesium 2.7 mg/dL (1.6-2.3) H 10/13/17 09:45 Total Bilirubin 0.4 mg/dL (0.2-1.3) 10/13/17 09:45 AST 24 U/L (14-36) 10/13/17 09:45 ALT 23 U/L (9-52) 10/13/17 09:45 Alkaline Phosphatase 117 U/L (38-126) 10/13/17 09:45 Total Creatine Kinase 33 U/L (30-135) 10/13/17 09:45 CK-MB (CK-2) 0.7 ng/mL (0.0-2.4) 10/13/17 09:45 CK-MB (CK-2) Rel Index 2.1 10/13/17 09:45 Troponin I 0.091 ng/mL (0.000-0.034) H* 10/13/17 09:45 NT-Pro-B Natriuret Pep 66176 pg/mL 10/13/17 09:45 Total Protein 6.3 g/dL (6.3-8.2) 10/13/17 09:45 Albumin 3.4 g/dL (3.5-5.0) L 10/13/17 09:45 Thrombosis Risk Factor Assmnt - DVT/VTE Prophylaxis DVT/VTE Prophylaxis: Pharmacologic Prophylaxis ordered, Contraindicated - See note - Choose All That Apply Each Risk Factor Represents 2 Points: Age 61-74 years Each Risk Factor Represents 3 Points: History of DVT/PE Thrombosis Risk Factor Assessment Total Risk Factor Score: 5 Thrombosis Risk Factor Assessment Level: High Risk Assessment and Plan Plan: 1. Unstable angina Chest pain with history of CAD,symptomatic costochondritis chronically elevated troponins: Post PCI with angioplasty and stent placement or primary this year had been seeing cardiology Dr. DOLLY Jc regular basis . she is to continue on double antiplatelet agents statins and beta blockers. Serial cardiac biomarkers Troponins 3. EKG in with nonspecific ST or T-wave changes. Patient will be placed on Nitropaste, hold off Imdur, continue Abner inhibitors, Lovenox subcu patient is chronically elevated troponins . Echocardiogram performed last 09/22/2017 shows EF 50-55%, LAD mild dilatation , borderline concentric LVH, aortic valve possible bicuspid, mild mitral calcification, mild tricuspid regurgitation, mild to moderate pulmonary hypertension, right ventricular systolic pressure 57, no pericardial effusion 2. Right leg deep ulcer from previous trauma, 5 weeks old, right breast ulcer with suspicion of superficial eschar formation, collagenase to be continued, consult Dr. Chin, his history of MRSA with going to initiate vancomycin with pharmacy to dose, additional antibiotic to come from Dr. Chin. Cultures to be done, consult Dr. Urias for possible debridement right breast 3 end-stage chronic kidney disease, renal bone disease b on hemodialysis 3 times a week consult nephrology continue dialysis as outpatient to resume treatment as scheduled Friday schedule. Continue renal replacement therapy 4 type 2 diabetes on insulin pump: Continue insulin via pump continue Accu-Chek with sliding scales coverage as well. Last A1c 6.3 09/23/2017 5 hyperlipidemia: Continue Lipitor at 40 mg daily no changes were made. 6 asthma/COPD: Continue Pulmicort along with DuoNeb 4 times a day when necessary no changes. 7 hypothyroidism: Continue levothyroxine with 50 g daily. No changes 8. Known history off anxiety and depression are stable on Lexapro and BuSpar along with Ativan. Last admission Ativan reduced to 0.5 mg at bedtime from 1 mg twice a day. Patient is taking high amount of Ativan which is causing her to fall frequently. 9. Right lower extremity ulcerated wounds secondary to trauma from a fall with signs of poor healing. Wound care. Infectious disease consulted. Patient might need to prednisone during this visit, vascular surgery consulted 10 GERD/GI prophylaxis: Continue Pepcid 20 mg daily 11. Hypertensive cardiovascular disease on amlodipine 10 mg daily Lasix 80 mg twice a day Imdur 30 mg daily 12 Chronic pain syndrome: Resume hydrocodone 13 Anemia of chronic disease. Monitor CBC, iron studies, patient might need erythropoetin stimulating agents DVT prophylaxis heparinsq Admission date 1-2 inpatient nights to be stabilized Discharge plan:
[2017-10-13] MEDS: CLOPIDOGREL 75 MG TAB PO SCH (15:52)
--- NOTE | 2017-10-13 16:13 | ECHOF ---
Referral Reason:chest pain, elevated troponin MEASUREMENTS -------- HEIGHT: 167.6 cm WEIGHT: 108.0 kg BP: RVIDd: 4.1 cm (< 3.3) IVSd: 1.4 cm (0.6 - 1.1) LVIDd: 3.9 cm (3.9 - 5.3) LVPWd: 1.4 cm (0.6 - 1.1) IVSs: 2.0 cm LVIDs: 2.7 cm LVPWs: 1.6 cm LAESV Index (A-L): 32.70 ml/m Ao Diam: 2.6 cm (2.0 - 3.7) AV Cusp: 1.3 cm (1.5 - 2.6) LA Diam: 3.9 cm (2.7 - 3.8) EPSS: 1.2 cm MV E Errol: 1.38 m/s MV DecT: 288 ms MV A Errol: 0.43 m/s MV E/A Ratio: 3.19 AV maxP.26 mmHg AV meanP.79 mmHg RAP: 5.00 mmHg RVSP: 40.03 mmHg MV EF SLOPE: 75.75 mm/s (70 - 150) MV EXCURSION: 1.82 cm (> 18.000) FINDINGS -------- Sinus rhythm. This was a technically difficult study with suboptimal views. The left ventricular size is normal. There is moderate concentric left ventricular hypertrophy. O verall left ventricular systolic function is normal with, an EF between 55 - 60 %. The right ventricle is moderately enlarged. LA is midly dilated 29-33ml/m2. The right atrium is normal in size. XX ml of Lumason was utilized for enhancement of images. Aortic valve is trileaflet and is mildly thickened. There is mild aortic valve sclerosis. Peak/me an gradient across the Aortic Valve is 14.26mmHg / 7.79mmHg. The mitral valve leaflets are mildly thickened. Mild mitral regurgitation is present. Mild tricuspid regurgitation present. There is mild pulmonary hypertension. The right ventricular systolic pressure, as measured by Doppler, is 40.03mmHg. Pulmonic valve appears structurally normal. The aortic root size is normal. The pericardium is normal. CONCLUSIONS -------- 1. Sinus rhythm. 2. This was a technically difficult study with suboptimal views. 3. The left ventricular size is normal. 4. There is moderate concentric left ventricular hypertrophy. 5. Overall left ventricular systolic function is normal with, an EF between 55 - 60 %. 6. The right ventricle is moderately enlarged. 7. LA is midly dilated 29-33ml/m2. 8. The right atrium is normal in size. 9. XX ml of Lumason was utilized for enhancement of images. 10. Aortic valve is trileaflet and is mildly thickened. 11. There is mild aortic valve sclerosis. 12. Peak/mean gradient across the Aortic Valve is 14.26mmHg / 7.79mmHg. 13. The mitral valve leaflets are mildly thickened. 14. Mild mitral regurgitation is present. 15. Mild tricuspid regurgitation present. 16. There is mild pulmonary hypertension. 17. The right ventricular systolic pressure, as measured by Doppler, is 40.03mmHg. 18. Pulmonic valve appears structurally normal. 19. The aortic root size is normal. 20. The pericardium is normal. SEMICONDUCTOR PROCESSOR: Jess Leavitt RDCS
[2017-10-13 16:16] LABS: Glucose,Whole Blood 109 mg/dL (75-99)
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
[2017-10-13 16:41] LABS: Creatine Kinase MB 0.8 ng/mL (0.0-2.4)
[2017-10-13 16:42] LABS: Troponin I 0.092 ng/mL (0.000-0.034)
[2017-10-13 20:41] LABS: Glucose,Whole Blood 210 mg/dL (75-99)
[2017-10-13] MEDS: CALCIUM ACETATE 667 MG CAP PO SCH (21:19)
[2017-10-13] MEDS: FOLIC ACID-VIT B COMPLEX-VIT C 1 CAP PO SCH (21:20)
[2017-10-13] MEDS: ASPIRIN 81 MG PO SCH (21:20)
[2017-10-13] MEDS: ATORVASTATIN 80 MG TAB PO SCH (21:22)
[2017-10-13] MEDS: HYDROcodone/APAP 10-325MG 1 EACH TAB PO PRN (21:23)
[2017-10-13] MEDS: LORazepam 0.5 MG TAB PO SCH (21:23)
[2017-10-13] MEDS: busPIRone HCl 10 MG TAB PO SCH (21:26)
[2017-10-13] MEDS: lamoTRIgine 100 MG TAB PO SCH (21:27)
[2017-10-13 23:08] LABS: Creatine Kinase MB 0.7 ng/mL (0.0-2.4)
[2017-10-13 23:12] LABS: Troponin I 0.075 ng/mL (0.000-0.034)
[2017-10-13] MEDS: MORPHINE SULFATE 4 MG/ML SYRINGE IV PRN (23:47)
[2017-10-14 05:36] LABS: Glucose,Whole Blood 54 mg/dL (75-99)
[2017-10-14 05:58] LABS: Glucose,Whole Blood 56 mg/dL (75-99)
[2017-10-14] MEDS ORDERED: LEVOTHYROXINE 112 MCG TAB PO SCH (06:00)
[2017-10-14] MEDS ORDERED: LEVOTHYROXINE 25 MCG TAB PO SCH (06:00)
[2017-10-14] MEDS ORDERED: BISACODYL 10 MG SUPP RECTAL PRN (06:00)
[2017-10-14 06:27] LABS: Glucose,Whole Blood 90 mg/dL (75-99)
[2017-10-14] MEDS: LEVOTHYROXINE 100 MCG TAB PO SCH (06:29)
[2017-10-14] MEDS: LEVOTHYROXINE 25 MCG TAB PO SCH (06:29)
[2017-10-14 06:45] LABS: Anisocytosis Slight; HCT 28.7 % (34.0-46.0); HGB 8.6 gm/dL (11.4-16.0); Hypochromasia Marked; MCH 27.5 pg (25.0-35.0); MCHC 29.8 g/dL (31.0-37.0); MCV 92.3 fL (80.0-100.0); Mean Platelet Volume 6.9; Platelet Count 298 k/uL (150-450); RBC 3.11 m/uL (3.80-5.40); RDW 18.2 % (11.5-15.5); WBC 11.1 k/uL (3.8-10.6)
[2017-10-14] MEDS: FUROSEMIDE 80 MG TAB PO SCH ×2 (06:45→19:55)
[2017-10-14] MEDS: MORPHINE SULFATE 4 MG/ML SYRINGE IV PRN ×2 (06:46→23:54)
[2017-10-14] MEDS: CALCIUM ACETATE 667 MG CAP PO SCH ×3 (06:48→19:47)
[2017-10-14 06:57] LABS: Calcium 7.3 mg/dL (8.4-10.2); Potassium 4.3 mmol/L (3.5-5.1)
[2017-10-14] MEDS: lamoTRIgine 100 MG TAB PO SCH ×2 (08:25→19:54)
[2017-10-14] MEDS: LORazepam 0.5 MG TAB PO SCH ×2 (08:25→22:41)
[2017-10-14] MEDS: FAMOTIDINE 20 MG TAB PO SCH (08:25)
[2017-10-14] MEDS: cefTRIAXone IN SWFI 2,000 MG/20 ML SYRINGE IVP SCH (08:26)
[2017-10-14] MEDS: busPIRone HCl 10 MG TAB PO SCH ×2 (08:26→19:53)
[2017-10-14] MEDS: ESCITALOPRAM 20 MG TAB PO SCH (08:27)
[2017-10-14] MEDS ORDERED: VANCOMYCIN 1,750 MG in SODIUM CHLORIDE 0.9% 500 ML IVPB ONE (10:00)
--- NOTE | 2017-10-14 10:25 | P.NPCON ---
History of Present Illness - Reason for Consult end stage renal disease - History of Present Illness Reason for consultation: End-stage renal disease History of present illness: Patient is a 62-year-old female seen in consultation for end-stage renal disease. She is maintained on hemodialysis on a Friday schedule via left upper extremity AV fistula. Patient did not get hemodialysis yesterday as she had developed chest pain and came to the hospital. Patient states she developed sudden left sided chest pain which started yesterday. Patient denies any sharp pain and states it feels more like pressure. She also has pain in her left shoulder. She denies any night sweats. No vomiting or diarrhea. Patient sustained a fall about 6 weeks ago and follows supportive care for right lower extremity infection. She also complains of a black lesion on her right breast. Patient has been evaluated by surgery and is scheduled to go for wound debridement in the right lower extremity today. Vital signs are stable. General: The patient appeared well nourished and normally developed. Left breast has a black eschar with no obvious drainage. HEENT: Head exam is unremarkable. Neck is without jugular venous distension. LUNGS: Lungs are clear to auscultation and percussion. Breath sounds decreased. HEART: Rate and Rhythm are regular. First and second heart sounds normal. No murmurs, rubs or gallops. ABDOMEN: Abdominal exam reveals normal bowel sounds. Non-tender and non- distended. No evidence of peritonitis. EXTREMITITES: No clubbing, cyanosis, or edema. Right lower extremity wrapped. No obvious drainage. Past Medical History Past Medical History: Coronary Artery Disease (CAD), Diabetes Mellitus, Dialysis , Hyperlipidemia, Hypertension, Myocardial Infarction ([place]), Osteoarthritis (OA) , Thyroid Disorder Additional Past Medical History / Comment(s): per past medical charting pt's stated "pt has had 17 mi's". ischemic cardiomyopathy. [place] in 2005 and September 2013, 12/29/15 STRESS WNL, Hepatitis A, ALLERGIC rhinitis,[place],ESRD/DIALYSIS- ON , CARDIO-PULMONARY ARREST 07/05/14 and pt stated she has had short term memory problems since, hypertensive nephrosclerosis, Hepatitis A,Vitamin D deficiency, constipation.dm- uses an insulin pump.HX OF FALLS, hx of a cat bit Last Myocardial Infarction Date:: 09/2013 History of Any Multi-Drug Resistant Organisms: MRSA Date of last positivie culture/infection: 09/27/17 MDRO Source:: BREAST Past Surgical History: Adenoidectomy, Appendectomy, Cholecystectomy, Heart Catheterization With Stent, Hysterectomy, Tonsillectomy Additional Past Surgical History / Comment(s): mary cataracts, LAP-BAND 2004, Laparoscopic cholecystectomy, FIBULA FX has metal pins in place,Left shoulder surgery, Hemodialysis Cataract bilateral with IOL, fistula and sx to" reroute it ",gets dialysis fri-fri-fri. has insulin pump. no bp on left Past Anesthesia/Blood Transfusion Reactions: Motion Sickness, Postoperative Nausea & Vomiting (PONV) Additional Past Anesthesia/Blood Transfusion Reaction / Comment(s): blood transfusion-pt stated they gave her medication for a reaction but does'nt rememebr what the reaction was Date of Last Stent Placement:: 2014 Smoking Status: Never smoker - Past Family History Mother Family Medical History: Congestive Heart Failure (CHF), Diabetes Mellitus, Hypertension Father History Unknown: Yes Family Medical History: Diabetes Mellitus Brother(s) Family Medical History: Diabetes Mellitus, Hyperlipidemia Additional Family Medical History / Comment(s): Hypertension chronic kidney disease Medications and Allergies Home Medications Medication Instructions Recorded Confirmed Type Famotidine [Pepcid] 20 mg PO DAILY@0800 04/29/14 10/13/17 History Aspirin EC [Ecotrin Low Dose] 81 mg PO DAILY@1700 01/01/16 10/13/17 History Escitalopram [Lexapro] 20 mg PO DAILY@0800 01/01/16 10/13/17 History busPIRone HCL 15 mg PO BID@0800,2100 01/01/16 10/13/17 History Atorvastatin [Lipitor] 80 mg PO HS@209912/27/16 10/13/17 History amLODIPine [Norvasc] 10 mg PO DAILY@0900 12/27/16 10/13/17 History Clopidogrel [Plavix] 75 mg PO Q48H 03/21/17 10/13/17 History Isosorbide Mononitrate ER [Imdur] 30 mg PO DAILY@0800 03/21/17 10/13/17 History lamoTRIgine [LaMICtal] 100 mg PO DAILY@0800 07/01/17 10/13/17 History lamoTRIgine [LaMICtal] 150 mg PO HS@2100 07/01/17 10/13/17 History Calcium Acetate [PhosLo] 667 mg PO TID-W/MEALS cap 08/01/17 10/13/17 Rx Insulin Aspart (For Pump) [NovoLOG 0.01 unit SQ-PUMP CONTINUOUS 09/22/17 History (For Pump)] Levothyroxine Sodium [Synthroid] 25 mcg PO DAILY@0600 09/22/17 10/13/17 History Levothyroxine Sodium [Synthroid] 200 mcg PO DAILY@0600 09/22/17 10/13/17 History Collagenase [Santyl] 1 applic TOPICAL DAILY 09/23/17 10/13/17 History Folic Acid-Vit B Complex-Vit C 1 cap PO DAILY@1700 09/23/17 10/13/17 History [Nephrocaps] HYDROcodone/APAP 10-325MG [[place] 1 tab PO Q6H PRN #18 tab 09/24/17 10/13/17 Rx 10-325] Bisacodyl [Dulcolax] 10 mg RECTAL DAILY@0600 PRN 10/13/17 10/13/17 History Furosemide [Lasix] 80 mg PO BID@0600,1400 10/13/17 10/13/17 History LORazepam [Ativan] 0.5 mg PO BID@0800,2100 10/13/17 10/13/17 History Ondansetron HCl [Zofran] 4 mg PO Q8H PRN 10/13/17 10/13/17 History Allergies Allergy/AdvReac Type Severity Reaction Status Date / Time adhesive Allergy Rash/Hives Verified 10/13/17 09:35 Iodinated Contrast- Oral and Allergy KIDNEY Verified 10/13/17 09:35 IV Dye FAILURE metformin Allergy SUGAR Verified 10/13/17 09:35 LEVEL INCREASE Penicillins Allergy Rash/Hives Verified 10/13/17 09:35 Physical Exam Vitals: Vital Signs Temp Pulse Pulse Resp BP BP Pulse Ox 10/14/17 08:34 98.2 F 71 16 118/54 94 L 10/14/17 04:00 97.5 F L 69 18 118/50 95 10/14/17 00:00 98.8 F 69 18 127/52 93 L 10/13/17 21:41 98.5 F 71 18 138/60 96 10/13/17 20:00 98.5 F 71 18 138/60 96 10/13/17 18:44 97.8 F 10/13/17 18:20 76 18 126/58 96 10/13/17 15:53 62 18 140/63 97 10/13/17 13:52 66 18 160/69 99 10/13/17 13:06 70 16 157/67 100 10/13/17 12:00 54 L 18 127/62 100 10/13/17 11:00 61 16 142/67 100 10/13/17 10:52 63 16 137/60 100 Intake and Output 10/13/17 10/14/17 10/14/17 22:59 06:59 14:59 Intake Total 100 Balance 100 Intake: Oral 100 Other: Voiding Method Diaper # Voids 0 Weight 110 kg Results - Lab Results Most recent lab results Calcium 7.3 mg/dL (8.4-10.2) L 10/14/17 06:25 Magnesium 2.7 mg/dL (1.6-2.3) H 10/13/17 09:45 10/14/17 06:25 10/14/17 06:25 Assessment and Plan Plan: Assessment: 1. End-stage renal disease maintained on hemodialysis on a Friday schedule. Left upper extremity AV fistula. She was currently seen while undergoing hemodialysis. 2. Left-sided chest pain. Rule out acute coronary syndrome. Cardiology following. 3. Right lower extremity wound scheduled for wound a bright mood today. 4. Right breast black eschar. No obvious drainage. The lesion is not painful so doubt calciphylaxis. Patient's PTH, calcium and phosphorus have been well- controlled. Patient had also sustained another fall and had developed a hematoma on her breast. Case discussed with surgery. 5. History of coronary artery disease. 6. Diabetes mellitus. 7. Chronic kidney disease mineral bone disease. 8. Hypertension with chronic kidney disease. 9. Hyponatremia secondary to chronic kidney disease. Expect improvement postdialysis. 10. Metabolic acidosis secondary to chronic kidney disease. Expect improvement postdialysis. 11. Anemia of chronic kidney disease. Rule out iron deficiency. Plan: Currently seen while undergoing hemodialysis. Next treatment tomorrow. Maintain antibiotics. Infectious disease following. Monitor vancomycin levels. Target level of 15. Check iron studies. Add Aranesp. Check phosphorus level. Thank you for the consultation. I will continue to follow the patient with you during her hospital stay.
--- NOTE | 2017-10-14 10:25 | P.CRDCN ---
History of Present Illness Consult date: 10/14/17 Requesting physician: Luiza Estrella Consult reason: chest pain Chief complaint: Chest pain History of present illness: This is a 62-year-old female who follows with Dr. Jovana Jc in the office. She has known history of end-stage renal disease on hemodialysis, coronary artery disease and multivessel PCI, hypertension, diabetes, hypothyroidism, obesity, patient was admitted to the hospital because of symptoms of chest discomfort. She's describes the discomfort as a pressure sensation in her chest, pain does worsen with deep breathing, and she states she is unable to take a complete deep breath. She also has been more short of breath than usual. Patient did have a fall recently for which she has been getting wound care at the [facility], it appears that she has a significant hematoma in her right calf area with infection. Patient also has a significant area of hematoma and infection noted in the right breast area both of which appear to be from her recent fall. Chest x-ray on admission showed cardiomegaly with suspected new mild central vascular congestion and a new small right pleural effusion. EKG shows a normal sinus rhythm with first- degree AV block, right bundle branch block pattern and left anterior fascicular block, ST-T wave changes noted in the anterior lateral leads similar to prior EKGs. Echocardiogram with Doppler study was performed which revealed an ejection fraction of 55-60%. Consultation was made with the surgeons because of the patient's wounds on her right leg and breast area, the plan is for them to proceed with surgical debridement today and a possible wound VAC. Blood pressure 118/50 with a heart rate in the 60s to 70s, 94% on room air. White blood cell count 8.2 and admission, 11.1 this morning, hemoglobin 8.6, platelet count 298. Sodium 131, potassium 4.3, BUN 50, creatinine 7.7. Blood sugar on arrival to 10, 90 this morning. Magnesium 2.7. BNP level 27,000. Troponin 0.09, 0.09, 0.07. Upon review of patient's multiple prior admissions to the hospital, she is always noted to have troponin abnormality within this range. At the time of my examination this morning, patient states she feels it's hard to take a deep breath, he feels mildly short of breath, intermittently gets chest discomfort she states at times it lasts hours in duration. Feeling weak and tired. Past Medical History Past Medical History: Coronary Artery Disease (CAD), Diabetes Mellitus, Dialysis , Hyperlipidemia, Hypertension, Myocardial Infarction (PA), Osteoarthritis (OA) , Thyroid Disorder Additional Past Medical History / Comment(s): per past medical charting pt's stated "pt has had 17 mi's". ischemic cardiomyopathy. PA in 2005 and September 2013, 12/29/15 STRESS WNL, Hepatitis A, ALLERGIC rhinitis,PA,ESRD/DIALYSIS- ON --, CARDIO-PULMONARY ARREST 07/05/14 and pt stated she has had short term memory problems since, hypertensive nephrosclerosis, Hepatitis A,Vitamin D deficiency, constipation.dm- uses an insulin pump.HX OF FALLS, hx of a cat bit Last Myocardial Infarction Date:: 09/2013 History of Any Multi-Drug Resistant Organisms: MRSA Date of last positivie culture/infection: 09/27/17 MDRO Source:: BREAST Past Surgical History: Adenoidectomy, Appendectomy, Cholecystectomy, Heart Catheterization With Stent, Hysterectomy, Tonsillectomy Additional Past Surgical History / Comment(s): mary cataracts, LAP-BAND 2004, Laparoscopic cholecystectomy, FIBULA FX has metal pins in place,Left shoulder surgery, Hemodialysis Cataract bilateral with IOL, fistula and sx to" reroute it ",gets dialysis fri-fri-fri. has insulin pump. no bp on left Past Anesthesia/Blood Transfusion Reactions: Motion Sickness, Postoperative Nausea & Vomiting (PONV) Additional Past Anesthesia/Blood Transfusion Reaction / Comment(s): blood transfusion-pt stated they gave her medication for a reaction but does'nt rememebr what the reaction was Date of Last Stent Placement:: 2014 Smoking Status: Never smoker - Past Family History Mother Family Medical History: Congestive Heart Failure (CHF), Diabetes Mellitus, Hypertension Father History Unknown: Yes Family Medical History: Diabetes Mellitus Brother(s) Family Medical History: Diabetes Mellitus, Hyperlipidemia Additional Family Medical History / Comment(s): Hypertension chronic kidney disease Medications and Allergies Home Medications Medication Instructions Recorded Confirmed Type Famotidine [Pepcid] 20 mg PO DAILY@0800 04/29/14 10/13/17 History Aspirin EC [Ecotrin Low Dose] 81 mg PO DAILY@1700 01/01/16 10/13/17 History Escitalopram [Lexapro] 20 mg PO DAILY@0800 01/01/16 10/13/17 History busPIRone HCL 15 mg PO BID@0800,2100 01/01/16 10/13/17 History Atorvastatin [Lipitor] 80 mg PO HS@2100 12/27/16 10/13/17 History amLODIPine [Norvasc] 10 mg PO DAILY@0900 12/27/16 10/13/17 History Clopidogrel [Plavix] 75 mg PO Q48H 03/21/17 10/13/17 History Isosorbide Mononitrate ER [Imdur] 30 mg PO DAILY@0800 03/21/17 10/13/17 History lamoTRIgine [LaMICtal] 100 mg PO DAILY@0800 07/01/17 10/13/17 History lamoTRIgine [LaMICtal] 150 mg PO HS@209907/01/17 10/13/17 History Calcium Acetate [PhosLo] 667 mg PO TID-W/MEALS cap 08/01/17 10/13/17 Rx Insulin Aspart (For Pump) [NovoLOG 0.01 unit SQ-PUMP CONTINUOUS 09/22/17 History (For Pump)] Levothyroxine Sodium [Synthroid] 25 mcg PO DAILY@0600 09/22/17 10/13/17 History Levothyroxine Sodium [Synthroid] 200 mcg PO DAILY@0600 09/22/17 10/13/17 History Collagenase [Santyl] 1 applic TOPICAL DAILY 09/23/17 10/13/17 History Folic Acid-Vit B Complex-Vit C 1 cap PO DAILY@1700 09/23/17 10/13/17 History [Nephrocaps] HYDROcodone/APAP 10-325MG [[place] 1 tab PO Q6H PRN #18 tab 09/24/17 10/13/17 Rx 10-325] Bisacodyl [Dulcolax] 10 mg RECTAL DAILY@0600 PRN 10/13/17 10/13/17 History Furosemide [Lasix] 80 mg PO BID@0600,1400 10/13/17 10/13/17 History LORazepam [Ativan] 0.5 mg PO BID@0800,2100 10/13/17 10/13/17 History Ondansetron HCl [Zofran] 4 mg PO Q8H PRN 10/13/17 10/13/17 History Allergies Allergy/AdvReac Type Severity Reaction Status Date / Time adhesive Allergy Rash/Hives Verified 10/13/17 09:35 Iodinated Contrast- Oral and Allergy KIDNEY Verified 10/13/17 09:35 IV Dye FAILURE metformin Allergy SUGAR Verified 10/13/17 09:35 LEVEL INCREASE Penicillins Allergy Rash/Hives Verified 10/13/17 09:35 Physical Exam Vitals: Vital Signs Temp Pulse Pulse Resp BP BP Pulse Ox 10/14/17 08:34 98.2 F 71 16 118/54 94 L 10/14/17 04:00 97.5 F L 69 18 118/50 95 10/14/17 00:00 98.8 F 69 18 127/52 93 L 10/13/17 21:41 98.5 F 71 18 138/60 96 10/13/17 20:00 98.5 F 71 18 138/60 96 10/13/17 18:44 97.8 F 10/13/17 18:20 76 18 126/58 96 10/13/17 15:53 62 18 140/63 97 10/13/17 13:52 66 18 160/69 99 10/13/17 13:06 70 16 157/67 100 10/13/17 12:00 54 L 18 127/62 100 10/13/17 11:00 61 16 142/67 100 10/13/17 10:52 63 16 137/60 100 Intake and Output 10/13/17 10/14/17 10/14/17 22:59 06:59 14:59 Intake Total 100 Balance 100 Intake: Oral 100 Other: Voiding Method Diaper # Voids 0 Weight 110 kg PHYSICAL EXAMINATION: GENERAL: 62-year-old female in no acute distress at the time of my examination HEENT: Head is atraumatic, normocephalic. Pupils equal, round. Sclera anicteric. Conjunctiva are clear. Mucous membranes of the mouth are moist. Neck is supple. There is no elevated jugular venous pressure. No carotid bruit is heard. HEART EXAMINATION: Heart S1 and S2 systolic murmur is heard. CHEST EXAMINATION: Lungs are clear anteriorly with mild diminished air entry to the bases. ABDOMEN: Soft, obese, nontender. Bowel sounds are heard. No organomegaly noted. EXTREMITIES:[ 1+ peripheral pulses with no evidence of peripheral edema there is a dressing in place to the right outer calf area with a significant hematoma and evidence of necrosis. NEUROLOGIC patient is awake, alert and oriented X3. . Results 10/14/17 06:25 10/14/17 06:25 Cardiac Enzymes 10/13/17 10/13/17 10/13/17 Range/Units 09:45 09:45 15:47 AST 24 (14-36) U/L CK-MB (CK-2) 0.7 0.8 (0.0-2.4) ng/mL Troponin I 0.091 H* 0.092 H* (0.000-0.034) ng/mL 10/13/17 Range/Units 21:58 AST (14-36) U/L CK-MB (CK-2) 0.7 (0.0-2.4) ng/mL Troponin I 0.075 H* (0.000-0.034) ng/mL Coagulation 10/13/17 Range/Units 09:45 PT 10.3 (9.0-12.0) sec APTT 27.1 (22.0-30.0) sec CBC 10/13/17 10/14/17 Range/Units 09:45 06:25 WBC 8.2 11.1 H (3.8-10.6) k/uL RBC 3.06 L 3.11 L (3.80-5.40) m/uL Hgb 8.7 L 8.6 L (11.4-16.0) gm/dL Hct 28.0 L 28.7 L (34.0-46.0) % Plt Count 330 298 (150-450) k/uL Comprehensive Metabolic Panel 10/13/17 10/14/17 Range/Units 09:45 06:25 Sodium 133 L 131 L (137-145) mmol/L Potassium 4.5 4.3 (3.5-5.1) mmol/L Chloride 95 L 96 L (98-107) mmol/L Carbon Dioxide 23 21 L (22-30) mmol/L BUN 39 H 50 H (7-17) mg/dL Creatinine 6.61 H* 7.70 H* (0.52-1.04) mg/dL Glucose 143 H 84 (74-99) mg/dL Calcium 7.6 L 7.3 L (8.4-10.2) mg/dL AST 24 (14-36) U/L ALT 23 (9-52) U/L Alkaline Phosphatase 117 (38-126) U/L Total Protein 6.3 (6.3-8.2) g/dL Albumin 3.4 L (3.5-5.0) g/dL Current Medications Generic Name Dose Route Start Last Admin Trade Name Freq PRN Reason Stop Dose Admin Acetaminophen 650 mg 10/13/17 13:47 Tylenol Tab PO Q6HR PRN Mild Pain or Fever > 100.5 Hydrocodone Bitart/Acetaminophen 1 each 10/13/17 14:11 10/13/17 21:23 [place] 10 PO 1 each Q6H PRN Administration Moderate Pain Amlodipine Besylate 10 mg 10/14/17 09:00 Norvasc PO DAILY@0900 [facility] Aspirin 81 mg 10/13/17 17:00 10/13/17 21:20 Aspirin PO Not Given DAILY@1700 [facility] Atorvastatin Calcium 80 mg 10/13/17 21:00 10/13/17 21:22 Lipitor PO 80 mg HS@2100 [facility] Administration Bisacodyl 10 mg 10/14/17 06:00 Dulcolax RECTAL DAILY@0600 PRN Constipation Buspirone HCl 15 mg 10/13/17 21:00 10/14/17 08:26 Buspar PO 15 mg BID@0800,2100 [facility] Administration Calcium Acetate 667 mg 10/13/17 17:30 10/14/17 06:48 Phoslo PO Not Given TID-W/MEALS [facility] Ceftriaxone Sodium 2,000 mg 10/14/17 09:00 10/14/17 08:26 Rocephin IVP 2,000 mg Q24HR [facility] Administration Clopidogrel Bisulfate 75 mg 10/13/17 15:00 10/13/17 15:52 Plavix PO Not Given Q48H [facility] Collagenase 1 applic 10/13/17 14:15 Santyl TOPICAL DAILY [facility] Escitalopram Oxalate 20 mg 10/14/17 08:00 10/14/17 08:27 Lexapro PO 20 mg DAILY@0800 [facility] Administration Famotidine 20 mg 10/14/17 08:00 10/14/17 08:25 Pepcid PO 20 mg DAILY@0800 [facility] Administration Furosemide 80 mg 10/14/17 06:00 10/14/17 06:45 Lasix PO 80 mg BID@0600,1400 [facility] Administration Vancomycin HCl 1,750 mg/ 500 mls @ 166.667 mls/hr 10/14/17 10:00 Sodium Chloride IVPB 10/14/17 12:59 ONCE ONE Insulin Aspart 0.01 unit 10/13/17 14:15 10/13/17 15:27 Novolog (For Pump) SQ-PUMP Not Given CONTINUOUS [facility] Lamotrigine 100 mg 10/14/17 08:00 10/14/17 08:25 Lamictal PO 100 mg DAILY@0800 [facility] Administration Lamotrigine 150 mg 10/13/17 21:00 10/13/17 21:27 Lamictal PO 150 mg HS@2100 [facility] Administration Levothyroxine Sodium 200 mcg 10/14/17 06:30 10/14/17 06:29 Synthroid PO 200 mcg DAILY@0630 [facility] Administration Levothyroxine Sodium 25 mcg 10/14/17 06:30 10/14/17 06:29 Synthroid PO 25 mcg DAILY@0630 [facility] Administration Lorazepam 0.5 mg 10/13/17 21:00 10/14/17 08:25 Ativan PO 0.5 mg BID@0800,2100 [facility] Administration Miscellaneous Information 1 each 10/13/17 14:41 Pharmacy To Dose Iv Vancomycin MISCELLANE DIRECTED PRN Per Protocol Morphine Sulfate 4 mg 10/13/17 13:47 10/14/17 06:46 Morphine Sulfate (Inj) IV 4 mg Q4HR PRN Administration Severe Pain Multivit/Ca Carb/B Cmplx/FA/Prenat 1 each 10/13/17 17:00 10/13/17 21:20 Nephrocaps PO Not Given DAILY@1700 [facility] Naloxone HCl 0.2 mg 10/13/17 13:47 Narcan IV Q2M PRN Opioid Reversal Intake and Output 10/13/17 10/14/17 10/14/17 22:59 06:59 14:59 Intake Total 100 Balance 100 Intake: Oral 100 Other: Voiding Method Diaper # Voids 0 Weight 110 kg 10/14/17 06:25 10/14/17 06:25 EKG Interpretations (text) EKG shows sinus bradycardia with first-degree AV block, right bundle branch block and a left anterior fascicular block, nonspecific ST-T wave changes similar to prior EKGs. Assessment and Plan Plan: Assessment and plan #1 chest pain with atypical features for acute coronary syndrome. Pleuritic in nature. Troponins 0.09, 0.09, 0.07. EKG shows a sinus bradycardia with first- degree AV block, right bundle branch block pattern, and left anterior fascicular block with nonspecific ST-T wave changes similar to prior EKGs. Echo performed this admission revealed a normal left ventricular systolic function #2 end-stage renal disease on hemodialysis #3 known history of coronary artery disease with prior multivessel PCI, most recent one was done in December 2015 which time patient underwent LAD stent #4 hypertension #5 diabetes #6 hyperlipidemia #7 morbid obesity #8 chronic anemia #9 right leg and right breast wound Plan From cardiology's perspective we'll continue with current medications. Patient may proceed with debridement and possible wound VAC placement today. We will continue to follow. DNP note has been reviewed, I agree with a documented findings and plan of care. Patient was seen and examined. (
[2017-10-14] MEDS ORDERED: INSULIN ASPART 100 UNIT/ML 1 ML 10 ML VIAL SQ PRN (10:59)
[2017-10-14] MEDS ORDERED: INSPUCOR MISCELLANE PRN (10:59)
[2017-10-14] MEDS ORDERED: INSULIN PUMP ACTIVE INSULIN 1 EACH MISC MISCELLANE PRN (10:59)
[2017-10-14] MEDS ORDERED: INSULIN PUMP TARGET GLUCOSE 1 EACH MISC MISCELLANE PRN (10:59)
[2017-10-14] MEDS ORDERED: INSULIN PUMP BASAL RATES 1 EACH MISC MISCELLANE PRN (10:59)
[2017-10-14] MEDS ORDERED: DARBEPOETIN ALFA 40 MCG/0.4 ML SYRINGE SQ SCH (11:00)
[2017-10-14 11:32] LABS: Glucose,Whole Blood 79 mg/dL (75-99)
[2017-10-14] MEDS: INSULIN PUMP MEAL BOLUS 1 UNIT MISC MISCELLANE SCH ×3 (12:04→22:43)
--- NOTE | 2017-10-14 14:34 | P.CONS ---
History of Present Illness - Reason for Consult Consult date: 10/14/17 Right lower leg wound, right breast wound, history MRSA - History of Present Illness This is a 62-year-old female suffers from super morbid obesity, coronary artery disease, diabetes mellitus type 2 on insulin pump, chronic pain syndrome. She is well-known to ID service as she has been seen in the past for wounds most recently in July for a cat bite. Patient has history of a fall injuring her right knee several months ago which has been nonhealing. She has been seen at [facility] by Dr. Mooney. She was recently hospitalized and underwent debridement with Dr. Dupree with improvement of the wound. She was not discharged on antibiotics at that time but did start Bactrim on September 24 at [facility]. Patient also gives history of a fall about 3 weeks ago from her wheelchair hitting her right breast on the arm causing a hematoma that she states has grown in size. Patient denies having any fever or chills. She does complain of chest pain in the mid chest area which is why she came into the hospital. She apparently had it for about one hour but she states she has had this on and off for quite some time. She took nitroglycerin and aspirin apparently this was relieved. She has echocardiogram with EF of 55-60%. She has been seen by cardiology with plan to continue current medications. Patient is undergoing hemodialysis this morning she. She is normally scheduled Friday and Friday and patient is followed by Dr. Souza. Dr. Urias is following the patient and is planning for debridement of the right knee wound and a debridement of the right breast wound at a later time. Patient has presented afebrile, white count is 8.2, hemoglobin 8.6, sodium 133, troponins been 0.091, 0.092 and 0.075. BUN 39 creatinine 6.61. Albumin 3.4 magnesium 2.7. Right breast culture and right knee culture had been obtained and are in progress and showing gram-negative bacilli. Patient had a right breast culture done on September 27 is positive for MRSA and Klebsiella pneumoniae. Antibiotics are been altered to Rocephin and vancomycin.. Review of Systems All systems: negative Constitutional: Reports fatigue, Reports poor appetite, Denies chills, Denies fever Eyes: denies blurred vision, denies pain Ears, nose, mouth and throat: Denies dental pain, Denies headache, Denies mouth pain, Denies sore throat, Denies vertigo Cardiovascular: Reports chest pain, Reports decreased exercise tolerance, Reports dyspnea on exertion, Reports edema, Reports leg edema, Reports lightheadedness, Reports shortness of breath, Denies syncope Respiratory: Reports dyspnea, Denies cough, Denies cough with sputum, Denies excessive sputum, Denies hemoptysis, Denies home oxygen, Denies wheezing Gastrointestinal: Denies abdominal pain, Denies diarrhea, Denies nausea, Denies vomiting Genitourinary: Denies dysuria, Denies hematuria Musculoskeletal: Denies myalgias Integumentary: Reports wounds, Denies pruritus, Denies rash Neurological: Denies numbness, Denies weakness Psychiatric: Denies anxiety, Denies depression Endocrine: Denies fatigue, Denies weight change Past Medical History Past Medical History: Coronary Artery Disease (CAD), Diabetes Mellitus, Dialysis , Hyperlipidemia, Hypertension, Myocardial Infarction (AR), Osteoarthritis (OA) , Thyroid Disorder Additional Past Medical History / Comment(s): per past medical charting pt's stated "pt has had 17 mi's". ischemic cardiomyopathy. AR in 2005 and September 2013, 12/29/15 STRESS WNL, Hepatitis A, ALLERGIC rhinitis,AR,ESRD/DIALYSIS- ON , CARDIO-PULMONARY ARREST 07/05/14 and pt stated she has had short term memory problems since, hypertensive nephrosclerosis, Hepatitis A,Vitamin D deficiency, constipation.dm- uses an insulin pump.HX OF FALLS, hx of a cat bit Last Myocardial Infarction Date:: 09/2013 History of Any Multi-Drug Resistant Organisms: MRSA Year Discovered:: 09/27/17 MDRO Source:: BREAST Past Surgical History: Adenoidectomy, Appendectomy, Cholecystectomy, Heart Catheterization With Stent, Hysterectomy, Tonsillectomy Additional Past Surgical History / Comment(s): mary cataracts, LAP-BAND 2004, Laparoscopic cholecystectomy, FIBULA FX has metal pins in place,Left shoulder surgery, Hemodialysis Cataract bilateral with IOL, fistula and sx to" reroute it ",gets dialysis mon-wed-fri. has insulin pump. no bp on left Past Anesthesia/Blood Transfusion Reactions: Motion Sickness, Postoperative Nausea & Vomiting (PONV) Additional Past Anesthesia/Blood Transfusion Reaction / Comm: blood transfusion- pt stated they gave her medication for a reaction but does'nt rememebr what the reaction was Date of Last Stent Placement:: 2014 Smoking Status: Never smoker Additional Past Alcohol Use History / Comment(s): Patient is from her and living in an apartment. She has a walker in the home and motorized wheelchair. She does not drive. She has a glucometer and insulin pump. She is a lifelong nonsmoker. She denies any alcohol use. No service. No international travel. She has a pet cat. - Past Family History Mother Family Medical History: Congestive Heart Failure (CHF), Diabetes Mellitus, Hypertension Father History Unknown: Yes Family Medical History: Diabetes Mellitus Brother(s) Family Medical History: Diabetes Mellitus, Hyperlipidemia Additional Family Medical History / Comment(s): Hypertension chronic kidney disease Medications and Allergies Home Medications Medication Instructions Recorded Confirmed Type Famotidine [Pepcid] 20 mg PO DAILY@0800 04/29/14 10/13/17 History Aspirin EC [Ecotrin Low Dose] 81 mg PO DAILY@1700 01/01/16 10/13/17 History Escitalopram [Lexapro] 20 mg PO DAILY@0800 01/01/16 10/13/17 History busPIRone HCL 15 mg PO BID@0800,2100 01/01/16 10/13/17 History Atorvastatin [Lipitor] 80 mg PO HS@2100 12/27/16 10/13/17 History amLODIPine [Norvasc] 10 mg PO DAILY@0900 12/27/16 10/13/17 History Clopidogrel [Plavix] 75 mg PO Q48H 03/21/17 10/13/17 History Isosorbide Mononitrate ER [Imdur] 30 mg PO DAILY@0800 03/21/17 10/13/17 History lamoTRIgine [LaMICtal] 100 mg PO DAILY@0800 07/01/17 10/13/17 History lamoTRIgine [LaMICtal] 150 mg PO HS@2100 07/01/17 10/13/17 History Calcium Acetate [PhosLo] 667 mg PO TID-W/MEALS cap 08/01/17 10/13/17 Rx Insulin Aspart (For Pump) [NovoLOG 0.01 unit SQ-PUMP CONTINUOUS 09/22/17 History (For Pump)] Levothyroxine Sodium [Synthroid] 25 mcg PO DAILY@0600 09/22/17 10/13/17 History Levothyroxine Sodium [Synthroid] 200 mcg PO DAILY@0600 09/22/17 10/13/17 History Collagenase [Santyl] 1 applic TOPICAL DAILY 09/23/17 10/13/17 History Folic Acid-Vit B Complex-Vit C 1 cap PO DAILY@1700 09/23/17 10/13/17 History [Nephrocaps] HYDROcodone/APAP 10-325MG [Carefree 1 tab PO Q6H PRN #18 tab 09/24/17 10/13/17 Rx 10-325] Bisacodyl [Dulcolax] 10 mg RECTAL DAILY@0600 PRN 10/13/17 10/13/17 History Furosemide [Lasix] 80 mg PO BID@0600,1400 10/13/17 10/13/17 History LORazepam [Ativan] 0.5 mg PO BID@0800,2100 10/13/17 10/13/17 History Ondansetron HCl [Zofran] 4 mg PO Q8H PRN 10/13/17 10/13/17 History Allergies Allergy/AdvReac Type Severity Reaction Status Date / Time adhesive Allergy Rash/Hives Verified 10/13/17 09:35 Iodinated Contrast- Oral and Allergy KIDNEY Verified 10/13/17 09:35 IV Dye FAILURE metformin Allergy SUGAR Verified 10/13/17 09:35 LEVEL INCREASE Penicillins Allergy Rash/Hives Verified 10/13/17 09:35 Physical Exam Vitals: Vital Signs Temp Pulse Pulse Resp BP BP Pulse Ox 10/14/17 08:34 98.2 F 71 16 118/54 94 L 10/14/17 04:00 97.5 F L 69 18 118/50 95 10/14/17 00:00 98.8 F 69 18 127/52 93 L 10/13/17 21:41 98.5 F 71 18 138/60 96 10/13/17 20:00 98.5 F 71 18 138/60 96 10/13/17 18:44 97.8 F 10/13/17 18:20 76 18 126/58 96 10/13/17 15:53 62 18 140/63 97 10/13/17 13:52 66 18 160/69 99 10/13/17 13:06 70 16 157/67 100 10/13/17 12:00 54 L 18 127/62 100 10/13/17 11:00 61 16 142/67 100 10/13/17 10:52 63 16 137/60 100 Intake and Output 10/13/17 10/14/17 10/14/17 22:59 06:59 14:59 Intake Total 100 Balance 100 Intake: Oral 100 Other: Voiding Method Diaper # Voids 0 Weight 110 kg Gen: This is a morbidly obese 62-year-old female. She is sitting up in bed and appears to be comfortable and in no acute distress. Patient is able to speak in full sentences. HEENT: Head is atraumatic, normocephalic. Pupils equal, round. Sclerae is anicteric. Conjunctiva slightly pale. Mucous membranes of the mouth are moist. NECK: Supple. No JVD. No lymphadenopathy. No thyromegaly. LUNGS: Clear to auscultation. No wheezes or rhonchi. No intercostal retractions. HEART: Regular rate and rhythm. No murmur. Breast: Patient has a wound to the right lateral breast area with black tissue. There is some drainage at the site. ABDOMEN: Morbidly obese Soft. Bowel sounds are present. No masses. No tenderness. EXTREMITIES: Wound assessment deferred to Dr. Chin. NEUROLOGICAL: Patient is awake, alert and oriented x3. Cranial nerves 2 through 12 are grossly intact. Results Results: Laboratory Results WBC 11.1 k/uL (3.8-10.6) H 10/14/17 06:25 RBC 3.11 m/uL (3.80-5.40) L 10/14/17 06:25 Hgb 8.6 gm/dL (11.4-16.0) L 10/14/17 06:25 Hct 28.7 % (34.0-46.0) L 10/14/17 06:25 MCV 92.3 fL (80.0-100.0) 10/14/17 06:25 MCH 27.5 pg (25.0-35.0) 10/14/17 06:25 MCHC 29.8 g/dL (31.0-37.0) L 10/14/17 06:25 RDW 18.2 % (11.5-15.5) H 10/14/17 06:25 Plt Count 298 k/uL (150-450) 10/14/17 06:25 Neutrophils % 81 % 10/13/17 09:45 Lymphocytes % 7 % 10/13/17 09:45 Monocytes % 5 % 10/13/17 09:45 Eosinophils % 5 % 10/13/17 09:45 Basophils % 0 % 10/13/17 09:45 Neutrophils # 6.6 k/uL (1.3-7.7) 10/13/17 09:45 Lymphocytes # 0.6 k/uL (1.0-4.8) L 10/13/17 09:45 Monocytes # 0.4 k/uL (0-1.0) 10/13/17 09:45 Eosinophils # 0.4 k/uL (0-0.7) 10/13/17 09:45 Basophils # 0.0 k/uL (0-0.2) 10/13/17 09:45 Hypochromasia Marked 10/14/17 06:25 Anisocytosis Slight 10/14/17 06:25 PT 10.3 sec (9.0-12.0) 10/13/17 09:45 INR 1.1 (<1.2) 10/13/17 09:45 APTT 27.1 sec (22.0-30.0) 10/13/17 09:45 Sodium 131 mmol/L (137-145) L 10/14/17 06:25 Potassium 4.3 mmol/L (3.5-5.1) 10/14/17 06:25 Chloride 96 mmol/L (98-107) L 10/14/17 06:25 Carbon Dioxide 21 mmol/L (22-30) L 10/14/17 06:25 Anion Gap 14 mmol/L 10/14/17 06:25 BUN 50 mg/dL (7-17) H 10/14/17 06:25 Creatinine 7.70 mg/dL (0.52-1.04) H* 10/14/17 06:25 Est GFR (CKD-EPI)AfAm 6 (>60 ml/min/1.73 sqM) 10/14/17 06:25 Est GFR (CKD-EPI)NonAf 5 (>60 ml/min/1.73 sqM) 10/14/17 06:25 Glucose 84 mg/dL (74-99) 10/14/17 06:25 POC Glucose (mg/dL) 79 mg/dL (75-99) 10/14/17 11:31 POC Glu Formal Service Waiter Mariia Nuñez 10/14/17 11:31 Calcium 7.3 mg/dL (8.4-10.2) L 10/14/17 06:25 Phosphorus 5.0 mg/dL (2.5-4.5) H 10/14/17 06:25 Magnesium 2.7 mg/dL (1.6-2.3) H 10/13/17 09:45 Total Bilirubin 0.4 mg/dL (0.2-1.3) 10/13/17 09:45 AST 24 U/L (14-36) 10/13/17 09:45 ALT 23 U/L (9-52) 10/13/17 09:45 Alkaline Phosphatase 117 U/L (38-126) 10/13/17 09:45 Total Creatine Kinase 32 U/L (30-135) 10/13/17 21:58 CK-MB (CK-2) 0.7 ng/mL (0.0-2.4) 10/13/17 21:58 CK-MB (CK-2) Rel Index 2.2 10/13/17 21:58 Troponin I 0.075 ng/mL (0.000-0.034) H* 10/13/17 21:58 NT-Pro-B Natriuret Pep 45222 pg/mL 10/13/17 09:45 Total Protein 6.3 g/dL (6.3-8.2) 10/13/17 09:45 Albumin 3.4 g/dL (3.5-5.0) L 10/13/17 09:45 CBC & Chem 7: 10/14/17 06:25 10/14/17 06:25 Labs: Abnormal Lab Results - Last 24 Hours (Table) 10/13/17 10/13/17 10/13/17 Range/Units 09:45 09:45 09:45 WBC (3.8-10.6) k/uL RBC 3.06 L (3.80-5.40) m/uL Hgb 8.7 L (11.4-16.0) gm/dL Hct 28.0 L (34.0-46.0) % MCHC (31.0-37.0) g/dL RDW 18.4 H (11.5-15.5) % Lymphocytes # 0.6 L (1.0-4.8) k/uL Sodium 133 L (137-145) mmol/L Chloride 95 L (98-107) mmol/L Carbon Dioxide (22-30) mmol/L BUN 39 H (7-17) mg/dL Creatinine 6.61 H* (0.52-1.04) mg/dL Glucose 143 H (74-99) mg/dL POC Glucose (mg/dL) (75-99) mg/dL Calcium 7.6 L (8.4-10.2) mg/dL Magnesium 2.7 H (1.6-2.3) mg/dL Troponin I 0.091 H* (0.000-0.034) ng/mL Albumin 3.4 L (3.5-5.0) g/dL 10/13/17 10/13/17 10/13/17 Range/Units 12:58 13:50 15:26 WBC (3.8-10.6) k/uL RBC (3.80-5.40) m/uL Hgb (11.4-16.0) gm/dL Hct (34.0-46.0) % MCHC (31.0-37.0) g/dL RDW (11.5-15.5) % Lymphocytes # (1.0-4.8) k/uL Sodium (137-145) mmol/L Chloride (98-107) mmol/L Carbon Dioxide (22-30) mmol/L BUN (7-17) mg/dL Creatinine (0.52-1.04) mg/dL Glucose (74-99) mg/dL POC Glucose (mg/dL) 45 L 65 L 109 H (75-99) mg/dL Calcium (8.4-10.2) mg/dL Magnesium (1.6-2.3) mg/dL Troponin I (0.000-0.034) ng/mL Albumin (3.5-5.0) g/dL 10/13/17 10/13/17 10/13/17 Range/Units 15:47 20:40 21:58 WBC (3.8-10.6) k/uL RBC (3.80-5.40) m/uL Hgb (11.4-16.0) gm/dL Hct (34.0-46.0) % MCHC (31.0-37.0) g/dL RDW (11.5-15.5) % Lymphocytes # (1.0-4.8) k/uL Sodium (137-145) mmol/L Chloride (98-107) mmol/L Carbon Dioxide (22-30) mmol/L BUN (7-17) mg/dL Creatinine (0.52-1.04) mg/dL Glucose (74-99) mg/dL POC Glucose (mg/dL) 210 H (75-99) mg/dL Calcium (8.4-10.2) mg/dL Magnesium (1.6-2.3) mg/dL Troponin I 0.092 H* 0.075 H* (0.000-0.034) ng/mL Albumin (3.5-5.0) g/dL 10/14/17 10/14/17 10/14/17 Range/Units 05:35 05:57 06:25 WBC (3.8-10.6) k/uL RBC (3.80-5.40) m/uL Hgb (11.4-16.0) gm/dL Hct (34.0-46.0) % MCHC (31.0-37.0) g/dL RDW (11.5-15.5) % Lymphocytes # (1.0-4.8) k/uL Sodium 131 L (137-145) mmol/L Chloride 96 L (98-107) mmol/L Carbon Dioxide 21 L (22-30) mmol/L BUN 50 H (7-17) mg/dL Creatinine 7.70 H* (0.52-1.04) mg/dL Glucose (74-99) mg/dL POC Glucose (mg/dL) 54 L 56 L (75-99) mg/dL Calcium 7.3 L (8.4-10.2) mg/dL Magnesium (1.6-2.3) mg/dL Troponin I (0.000-0.034) ng/mL Albumin (3.5-5.0) g/dL 10/14/17 Range/Units 06:25 WBC 11.1 H (3.8-10.6) k/uL RBC 3.11 L (3.80-5.40) m/uL Hgb 8.6 L (11.4-16.0) gm/dL Hct 28.7 L (34.0-46.0) % MCHC 29.8 L (31.0-37.0) g/dL RDW 18.2 H (11.5-15.5) % Lymphocytes # (1.0-4.8) k/uL Sodium (137-145) mmol/L Chloride (98-107) mmol/L Carbon Dioxide (22-30) mmol/L BUN (7-17) mg/dL Creatinine (0.52-1.04) mg/dL Glucose (74-99) mg/dL POC Glucose (mg/dL) (75-99) mg/dL Calcium (8.4-10.2) mg/dL Magnesium (1.6-2.3) mg/dL Troponin I (0.000-0.034) ng/mL Albumin (3.5-5.0) g/dL Microbiology - Last 24 Hours (Table) 10/13/17 14:15 Gram Stain - Preliminary Breast - Right Wound Culture - Preliminary 10/13/17 14:15 Gram Stain - Preliminary Leg - Right Wound Culture - Preliminary Assessment and Plan Plan: This is a 62-year-old female patient presented to hospital with chest pain and seen by cardiology. She also presented with nonhealing wound to the right knee and also a wound to the right breast. She is scheduled for debridement of the right knee this evening with Dr. Urias. Antibiotics have been altered to Rocephin and vancomycin based on previous culture of the right breast which was positive for Klebsiella and MRSA. Continue supportive care. Further recommendations as patient progresses. The above dictated assessment and findings were discussed with Dr. Chin. The impression and plan of care have been directed as dictated. Emely Contreras nurse practitioner acting as scribe for Dr. Chin.
--- NOTE | 2017-10-14 14:41 | P.PN ---
Subjective Progress Note Date: 10/14/17 The patient is a pleasant 62-year-old female patient of Dr. Gar and Dr. JAE Talley as an outpatient with a past medical history significant for coronary artery disease and prior coronary artery stenting with the patient underwent stenting of the proximal left anterior descending artery as well as ramus intermedius in April 2014, diabetes type 2 on insulin pump, end stage renal disease on hemodialysis Friday, as well as dyslipidemia was currently transiently residing subacute rehab at [facility]. Patient comes to the emergency room on and off chest pain a few hours persistent , located left sternal region, also accompanied by pain with deep inspiration, costochondritis, pain persisted till ER evaluation, chronically on Imdur, nitroglycerin did not help symptoms, he was subsequently evaluated in the emergency room. She has chronically elevated troponin, since 04/20/2017. When seen in the ER troponin was 0.91 creatinine 6.6, double basic count 8.2, hemoglobin 8.7 Patient denies any cough no fever no chills, patient denies any calf swelling or pain in the legs, he does have right leg wound, for the past 5 weeks, when the patient fell down on the dentist office, also has wound on the right breast that looks more like gangrene of his lesion that started off as a bruise, and followed there by local wound care physician. Patient completed antibiotics, leg wound is worse than what it is, with foul-smelling odor, and local cellulitic reaction. Patient denies any fever, she does have collagenase treatment topically placed to these areas, history of MRSA in the past within 1 year. History of cat Bite injury 07/23/2017. Immunizations Td is up-to-date. Patient is admitted for unstable angina, and right leg wound ulcerations right breast wound ulcerations with cellulitis. Dr. Chin on consult, Dr. Urias consult from general surgery patient might need debridement on the right breast wounds, cardiology is on consult for chest pain Last admission was in 09/22/2017 for weakness and chest pain found to be junctional rhythm, requiring emergent dialysis for hyperkalemia hemoglobin 8.6 WBC 12.4 platelet VQ scan was performed which was low probability of PE. Echocardiogram was ordered for EF of 55-60%, [id number] pulmonary hypertension, bicuspid aortic valve. Her last A1c was 6.3 09/23/201710/13: Has been seen by Dr. Chin with recommendations for antibiotics in form of Rocephin and vancomycin the son previous wound culture of the right breast done at [facility] which was positive for Klebsiella and MRSA. Patient's been seen by Dr. Urias with plan for surgical debridement of the right knee. No plan for debridement of the right breast at this point. Patient is been seen by cardiology with recommendations to continue current medication and no other workup identified this time. Patient is undergoing hemodialysis this morning and is followed by Dr. Souza. She did have a low blood sugar this morning in the 50s and she is managing her own insulin pump. Pre-lunch was 79. She has been afebrile. Echocardiogram reveals EF of 55-60%, moderate concentric left ventricular hypertrophy, LV mildly dilated at 29-33, mild aortic valve sclerosis , mild mitral regurgitation, mild tricuspid regurgitation, mild pulmonary hypertension. Objective - Vital Signs Vital signs: Vital Signs Temp 98.2 F 10/14/17 08:34 Pulse 71 10/14/17 08:34 Resp 18 10/14/17 08:34 BP 118/54 10/14/17 08:34 Pulse Ox 94 L 10/14/17 08:34 Intake & Output 10/13/17 10/14/17 10/14/17 18:59 06:59 18:59 Intake Total 100 Balance 100 Weight 108 kg 110 kg Intake: Oral 100 Other: Voiding Method Diaper # Voids 0 - Exam General appearance: cooperative, no acute distress - EENT Eyes: anicteric sclerae, EOMI, PERRLA, dentition normal, normal appearance ENT: no hard of hearing, no hearing grossly normal, NA/AT, normal oropharynx, no other, no pharyngeal erythema, no thrush, no tonsillar exudates, no tonsillar swelling - Neck Neck: no lymphadenopathy, normal ROM, no other, no rigidity, no stridor, no thyromegaly - Respiratory Respiratory: bilateral: CTA, negative: diminished, dullness, rales, rhonchi, wheezing, prolonged expiration - Cardiovascular Rhythm: regular Heart sounds: normal: S1, S2 Abnormal Heart Sounds: no systolic murmur, no diastolic murmur, no rub, no S3 Gallop, no S4 Gallop, no click, no other - Gastrointestinal General gastrointestinal: organomegaly, soft - Integumentary Integumentary: decreased turgor, normal, ulcer (Right lower fibula region leg 10 cm x 4 cm x 1 cm deep right breast 3 cm x 4.5 cm right upper quadrant cm approximately ) - Neurologic Neurologic: CNII-XII intact - Musculoskeletal Musculoskeletal: gait normal, strength equal bilaterally - Psychiatric Psychiatric: A&O x's 3, appropriate affect, intact judgment & insight - Labs CBC & Chem 7: 10/14/17 06:25 10/14/17 06:25 Labs: Abnormal Lab Results - Last 24 Hours (Table) 10/13/17 10/13/17 10/13/17 Range/Units 09:45 12:58 13:50 WBC (3.8-10.6) k/uL RBC (3.80-5.40) m/uL Hgb (11.4-16.0) gm/dL Hct (34.0-46.0) % MCHC (31.0-37.0) g/dL RDW (11.5-15.5) % Sodium (137-145) mmol/L Chloride (98-107) mmol/L Carbon Dioxide (22-30) mmol/L BUN (7-17) mg/dL Creatinine (0.52-1.04) mg/dL POC Glucose (mg/dL) 45 L 65 L (75-99) mg/dL Calcium (8.4-10.2) mg/dL Phosphorus (2.5-4.5) mg/dL Troponin I 0.091 H* (0.000-0.034) ng/mL 10/13/17 10/13/17 10/13/17 Range/Units 15:26 15:47 20:40 WBC (3.8-10.6) k/uL RBC (3.80-5.40) m/uL Hgb (11.4-16.0) gm/dL Hct (34.0-46.0) % MCHC (31.0-37.0) g/dL RDW (11.5-15.5) % Sodium (137-145) mmol/L Chloride (98-107) mmol/L Carbon Dioxide (22-30) mmol/L BUN (7-17) mg/dL Creatinine (0.52-1.04) mg/dL POC Glucose (mg/dL) 109 H 210 H (75-99) mg/dL Calcium (8.4-10.2) mg/dL Phosphorus (2.5-4.5) mg/dL Troponin I 0.092 H* (0.000-0.034) ng/mL 10/13/17 10/14/17 10/14/17 Range/Units 21:58 05:35 05:57 WBC (3.8-10.6) k/uL RBC (3.80-5.40) m/uL Hgb (11.4-16.0) gm/dL Hct (34.0-46.0) % MCHC (31.0-37.0) g/dL RDW (11.5-15.5) % Sodium (137-145) mmol/L Chloride (98-107) mmol/L Carbon Dioxide (22-30) mmol/L BUN (7-17) mg/dL Creatinine (0.52-1.04) mg/dL POC Glucose (mg/dL) 54 L 56 L (75-99) mg/dL Calcium (8.4-10.2) mg/dL Phosphorus (2.5-4.5) mg/dL Troponin I 0.075 H* (0.000-0.034) ng/mL 10/14/17 10/14/17 10/14/17 Range/Units 06:25 06:25 06:25 WBC 11.1 H (3.8-10.6) k/uL RBC 3.11 L (3.80-5.40) m/uL Hgb 8.6 L (11.4-16.0) gm/dL Hct 28.7 L (34.0-46.0) % MCHC 29.8 L (31.0-37.0) g/dL RDW 18.2 H (11.5-15.5) % Sodium 131 L (137-145) mmol/L Chloride 96 L (98-107) mmol/L Carbon Dioxide 21 L (22-30) mmol/L BUN 50 H (7-17) mg/dL Creatinine 7.70 H* (0.52-1.04) mg/dL POC Glucose (mg/dL) (75-99) mg/dL Calcium 7.3 L (8.4-10.2) mg/dL Phosphorus 5.0 H (2.5-4.5) mg/dL Troponin I (0.000-0.034) ng/mL Microbiology - Last 24 Hours (Table) 10/13/17 14:15 Gram Stain - Preliminary Breast - Right Wound Culture - Preliminary 10/13/17 14:15 Gram Stain - Preliminary Leg - Right Wound Culture - Preliminary Assessment and Plan Plan: 1. Unstable angina Chest pain with history of CAD,symptomatic costochondritis chronically elevated troponins: Post PCI with angioplasty and stent placement or primary this year had been seeing cardiology Dr. DOLLY Jc regular basis. she is to continue on double antiplatelet agents statins and beta blockers. Serial cardiac biomarkers Troponins 3. EKG in with nonspecific ST or T-wave changes. Patient will be placed on Nitropaste, hold off Imdur, continue Abner inhibitors , Lovenox subcu patient is chronically elevated troponins . 2. Right leg deep ulcer from previous trauma, 5 weeks old, right breast ulcer with suspicion of superficial eschar formation, collagenase to be continued, consult Dr. Chin, history of MRSA with going to initiate vancomycin with pharmacy to dose, additional antibiotic to come from Dr. Chin. Cultures to be done, consult Dr. Urias for possible debridement right breast later today. Rocephin has been added. 3 end-stage chronic kidney disease, renal bone disease b on hemodialysis 3 times a week consult nephrology continue dialysis as outpatient to resume treatment as scheduled Friday schedule. Continue renal replacement therapy 4 type 2 diabetes on insulin pump: Continue insulin via pump continue Accu-Chek with sliding scales coverage as well. Last A1c 6.3 09/23/2017 5 hyperlipidemia: Continue Lipitor at 40 mg daily no changes were made. 6 COPD: Continue Pulmicort along with DuoNeb 4 times a day when necessary no changes. 7 hypothyroidism: Continue levothyroxine with 50 g daily. No changes 8. Generalized anxiety disorder and recurrent depression are stable on Lexapro and BuSpar along with Ativan. Last admission Ativan reduced to 0.5 mg at bedtime from 1 mg twice a day. Patient is taking high amount of Ativan which is causing her to fall frequently. 9. Right breast wound, hematoma secondary to a fall, nonhealing. Culture positive for Klebsiella and MRSA. Antibiotics of vancomycin and Rocephin. 10 GERD/GI prophylaxis: Continue Pepcid 20 mg daily 11. Hypertensive cardiovascular disease on amlodipine 10 mg daily Lasix 80 mg twice a day Imdur 30 mg daily 12 Chronic pain syndrome: Resume hydrocodone 13 Anemia of chronic disease. Monitor CBC, iron studies, patient might need erythropoetin stimulating agents DVT prophylaxis heparinsq Discharge plan: [facility]. Impression and plan of care have been directed as dictated by the signing physician. Emely Contreras nurse practitioner acting as scribe for signing physician.
[2017-10-14 15:35] LABS: Hemoglobin A1C 6.5 % (4.0-6.0)
[2017-10-14 16:26] LABS: Glucose,Whole Blood 264 mg/dL (75-99)
[2017-10-14 16:44] LABS: Iron Saturation 14.77 (12.00-45.00)
[2017-10-14] MEDS ORDERED: LACTATED RINGERS 1,000 ML IV ONE (16:56)
[2017-10-14] MEDS ORDERED: ONDANSETRON 4 MG/2 ML VIAL IVP ONE (16:56)
[2017-10-14] MEDS ORDERED: MIDAZOLAM 2 MG/2 ML VIAL ONE (17:06)
[2017-10-14] MEDS ORDERED: PROPOFOL 10 MG/ML 20 ML VIAL IV ONE (17:06)
[2017-10-14] MEDS ORDERED: LIDOCAINE 1% INJ 10MG/ML (20 ML MDV) ONE (17:06)
[2017-10-14] MEDS ORDERED: fentaNYL (PF) 50 MCG/ML 2 ML AMP ONE (17:06)
--- NOTE | 2017-10-14 17:52 | P.OP ---
Date of Procedure: 10/14/17 Preoperative Diagnosis: Traumatic open wound right lower extremity with infection Postoperative Diagnosis: Same Procedure(s) Performed: Excisional debridement subcutaneous tissue right lower extremity with placement of wound VAC Anesthesia: HILDA Surgeon: Unique Urias Estimated Blood Loss (ml): 25 Pathology: none sent Condition: stable Disposition: PACU Indications for Procedure: The patient had had a traumatic wound of the right lower extremity that had been followed up as outpatient. And she presented to the hospital the wound was noted to be infected with significant amount of necrotic fatty tissue Description of Procedure: The placement is taken the operative suite where she is prepped and draped in the usual sterile manner under a LMA anesthetic. The dimensions of the skin loss were 7 x 8 cm. The inferior two thirds had a fairly good granulation tissue at the surface. There was one area that had some necrotic fat which was sharply debrided with a curet. This left a defect 3.5 x 1 cm wide by 1 cm deep. Superiorly there was undermining in several areas. This was debrided back to healthy tissue with curettes. The wound which was superiorly and medial undermine 5 cm superiorly. The superior wound which was more lateral undermined 6 cm. The posterior edge of the wound laterally undermined 4 cm. There was another area posterior laterally which was curetted back to healthy tissue. The wound was then irrigated. The areas which were undermined were then packed with white foam. A larger piece of white foam was then allowed to cover the entire area of skin loss. It was covered with the appropriate area dressings and applied to the wound VAC. There was no significant air leak noted. She did have a area of skin necrosis on her breast which was covered with optifoam gentle silver. She tolerated the procedure without difficulty and was taken recovery room in satisfactory condition. According to or personnel, WERE correct.
[2017-10-14] MEDS ORDERED: traMADol 50 MG TAB PO PRN ×2 (17:53)
[2017-10-14] MEDS: COLLAGENASE 250 UNIT/GM OINTMENT 30 GM TUBE TOPICAL SCH ×2 (18:10→18:11)
[2017-10-14 19:18] LABS: Glucose,Whole Blood 374 mg/dL (75-99)
[2017-10-14] MEDS: amLODIPine 10 MG TAB PO SCH (19:45)
[2017-10-14] MEDS: FOLIC ACID-VIT B COMPLEX-VIT C 1 CAP PO SCH (19:52)
[2017-10-14] MEDS: ATORVASTATIN 80 MG TAB PO SCH (19:53)
[2017-10-14] MEDS: ASPIRIN 81 MG PO SCH (19:55)
[2017-10-14] MEDS: HYDROcodone/APAP 10-325MG 1 EACH TAB PO PRN (19:55)
[2017-10-14 21:29] VITALS: RESP 18
[2017-10-14 22:39] LABS: Glucose,Whole Blood 245 mg/dL (75-99)
[2017-10-14 22:52] LABS: Glucose,Whole Blood 304 mg/dL (75-99)
--- NOTE | 2017-10-14 22:54 | P.CON ---
Consult Note - . Consult date: 10/14/17 Assessment/Plan:: This is a 62-year-old female suffers from super morbid obesity, coronary artery disease, diabetes mellitus type 2 on insulin pump, chronic pain syndrome. She is well-known to ID service as she has been seen in the past for wounds most recently in July for a cat bite. Patient has history of a fall injuring her right knee several months ago which has been nonhealing. She has been seen at [facility] by Dr. Mooney. She was recently hospitalized and underwent debridement with Dr. Dupree with improvement of the wound. She was not discharged on antibiotics at that time but did start Bactrim on September 24 at [facility]. Patient also gives history of a fall about 3 weeks ago from her wheelchair hitting her right breast on the arm causing a hematoma that she states has grown in size. Patient denies having any fever or chills. She does complain of chest pain in the mid chest area which is why she came into the hospital. She apparently had it for about one hour but she states she has had this on and off for quite some time. She took nitroglycerin and aspirin apparently this was relieved. She has echocardiogram with EF of 55-60%. She has been seen by cardiology with plan to continue current medications. Patient is undergoing hemodialysis this morning she. She is normally scheduled Friday and Friday and patient is followed by Dr. Souza. Dr. Urias is following the patient and is planning for debridement of the right knee wound and a debridement of the right breast wound at a later time. Patient has presented afebrile, white count is 8.2, hemoglobin 8.6, sodium 133, troponins been 0.091, 0.092 and 0.075. BUN 39 creatinine 6.61. Albumin 3.4 magnesium 2.7. Right breast culture and right knee culture had been obtained and are in progress and showing gram-negative bacilli. Patient had a right breast culture done on September 27 is positive for MRSA and Klebsiella pneumoniae. Antibiotics are been altered to Rocephin and vancomycin. Please see the consult note is dictated by nurse practitioner Mrs. Emely Contreras. The patient is evaluated with the nurse in the room. There is evidence of the extensive ulceration to the right knee please see nursing photography as far as this ulceration that has evidence of underlying fat layer tissue exposed necrotic material we will the operating room after her dialysis is completed for the debridement of the site. As far as the eschar on her breast is monitored by the surgeon and likely will have debridement in the future if possible. The patient will be treated with antibiotic therapy with vancomycin and Rocephin for the recent isolated MRSA as well as Klebsiella from the wounds. Blood cultures are pending. We'll follow postoperatively. This type of wound often will have a negative pressure therapy system utilized in counseling after discharge to be followed in the wound healing Center for ongoing care. The patient was having some shortness of breath this is now markedly improved after her hemodialysis of today and removal of several liters of fluid, she will receive dialysis as an inpatient for now to improve her overall status. Once final cultures are available will help determine the course of antibiotic therapy discharge. I agree with evaluation, assessment and plan as dictated by nurse practitioner Mrs. Emely Contreras.
[2017-10-15 03:00] LABS: Glucose,Whole Blood 106 mg/dL (75-99)
[2017-10-15 06:18] LABS: Glucose,Whole Blood 142 mg/dL (75-99)
[2017-10-15] MEDS: LEVOTHYROXINE 25 MCG TAB PO SCH (06:22)
[2017-10-15] MEDS: LEVOTHYROXINE 100 MCG TAB PO SCH (06:22)
[2017-10-15] MEDS: FUROSEMIDE 80 MG TAB PO SCH ×2 (06:22→17:10)
[2017-10-15] MEDS: HYDROcodone/APAP 10-325MG 1 EACH TAB PO PRN ×2 (06:23→20:29)
[2017-10-15 06:47] LABS: Anisocytosis Slight; HCT 25.7 % (34.0-46.0); HGB 7.7 gm/dL (11.4-16.0); Hypochromasia Marked; MCH 27.4 pg (25.0-35.0); MCHC 30.1 g/dL (31.0-37.0); Mean Platelet Volume 6.9; Platelet Count 276 k/uL (150-450); RBC 2.82 m/uL (3.80-5.40); RDW 18.2 % (11.5-15.5)
[2017-10-15] MEDS: CALCIUM ACETATE 667 MG CAP PO SCH ×3 (07:00→17:10)
[2017-10-15 07:04] LABS: Calcium 7.2 mg/dL (8.4-10.2); Potassium 4.3 mmol/L (3.5-5.1)
[2017-10-15] MEDS: cefTRIAXone IN SWFI 2,000 MG/20 ML SYRINGE IVP SCH (08:35)
[2017-10-15] MEDS: lamoTRIgine 100 MG TAB PO SCH ×2 (08:36→22:16)
[2017-10-15] MEDS: busPIRone HCl 10 MG TAB PO SCH ×2 (08:36→22:16)
[2017-10-15] MEDS: amLODIPine 10 MG TAB PO SCH ×2 (08:36→08:47)
[2017-10-15] MEDS: LORazepam 0.5 MG TAB PO SCH ×2 (08:36→22:22)
[2017-10-15] MEDS: ESCITALOPRAM 20 MG TAB PO SCH (08:36)
[2017-10-15] MEDS: FAMOTIDINE 20 MG TAB PO SCH (08:37)
[2017-10-15] MEDS: COLLAGENASE 250 UNIT/GM OINTMENT 30 GM TUBE TOPICAL SCH (08:47)
[2017-10-15] MEDS: INSULIN PUMP MEAL BOLUS 1 UNIT MISC MISCELLANE SCH ×2 (08:47→12:50)
[2017-10-15 11:37] LABS: Glucose,Whole Blood 143 mg/dL (75-99)
--- NOTE | 2017-10-15 11:51 | P.PN ---
Subjective Patient is seen in follow-up for end-stage renal disease. She is maintained on hemodialysis on a Friday schedule. Patient underwent right lower extremity wound due to bright yesterday and has a wound VAC in place. Denies chest pain. Does admit to dyspnea without oxygen. No vomiting or diarrhea. Vital signs are stable. General: The patient appeared well nourished and normally developed. HEENT: Head exam is unremarkable. Neck is without jugular venous distension. LUNGS: Lungs are clear to auscultation and percussion. Breath sounds decreased. HEART: Rate and Rhythm are regular. First and second heart sounds normal. No murmurs, rubs or gallops. ABDOMEN: Abdominal exam reveals normal bowel sounds. Non-tender and non- distended. No evidence of peritonitis. EXTREMITITES: No clubbing, cyanosis, or edema. Surgical wound noted. No obvious drainage. Wound VAC in place. Objective - Vital Signs Vital signs: Vital Signs Temp 97.8 F 10/15/17 08:00 Pulse 65 10/15/17 08:00 Resp 18 10/15/17 08:00 BP 93/45 10/15/17 08:00 Pulse Ox 94 L 10/15/17 08:00 Intake & Output 10/14/17 10/15/17 10/15/17 18:59 06:59 18:59 Intake Total 100 500 120 Output Total 10 Balance 90 500 120 Weight 113.5 kg Intake: IV 100 Intake, IV Titration 500 Amount Vancomycin 1,750 mg In 500 Sodium Chloride 0.9% 500 ml @ 166.667 mls/hr IVPB ONCE ONE Rx#:[id number] Oral 120 Output: Estimated Blood Loss 10 Other: Voiding Method Diaper Diaper # Voids 0 - Labs CBC & Chem 7: 10/15/17 05:58 10/15/17 05:58 Labs: Abnormal Lab Results - Last 24 Hours (Table) 10/13/17 10/14/17 10/14/17 Range/Units 19:45 06:25 16:18 RBC (3.80-5.40) m/uL Hgb (11.4-16.0) gm/dL Hct (34.0-46.0) % MCHC (31.0-37.0) g/dL RDW (11.5-15.5) % Sodium (137-145) mmol/L Chloride (98-107) mmol/L BUN (7-17) mg/dL Creatinine (0.52-1.04) mg/dL Glucose (74-99) mg/dL POC Glucose (mg/dL) 264 H (75-99) mg/dL Hemoglobin A1c 6.5 H (4.0-6.0) % Calcium (8.4-10.2) mg/dL Iron 22 L (50-170) ug/dL TIBC 149 L (228-460) ug/dL Ferritin 1425.7 H (10.0-291.0) ng/mL 10/14/17 10/14/17 10/14/17 Range/Units 18:58 20:45 22:37 RBC (3.80-5.40) m/uL Hgb (11.4-16.0) gm/dL Hct (34.0-46.0) % MCHC (31.0-37.0) g/dL RDW (11.5-15.5) % Sodium (137-145) mmol/L Chloride (98-107) mmol/L BUN (7-17) mg/dL Creatinine (0.52-1.04) mg/dL Glucose (74-99) mg/dL POC Glucose (mg/dL) 374 H 304 H 245 H (75-99) mg/dL Hemoglobin A1c (4.0-6.0) % Calcium (8.4-10.2) mg/dL Iron (50-170) ug/dL TIBC (228-460) ug/dL Ferritin (10.0-291.0) ng/mL 10/15/17 10/15/17 10/15/17 Range/Units 02:56 05:58 05:58 RBC 2.82 L (3.80-5.40) m/uL Hgb 7.7 L (11.4-16.0) gm/dL Hct 25.7 L (34.0-46.0) % MCHC 30.1 L (31.0-37.0) g/dL RDW 18.2 H (11.5-15.5) % Sodium 134 L (137-145) mmol/L Chloride 94 L (98-107) mmol/L BUN 32 H (7-17) mg/dL Creatinine 4.77 H (0.52-1.04) mg/dL Glucose 126 H (74-99) mg/dL POC Glucose (mg/dL) 106 H (75-99) mg/dL Hemoglobin A1c (4.0-6.0) % Calcium 7.2 L (8.4-10.2) mg/dL Iron (50-170) ug/dL TIBC (228-460) ug/dL Ferritin (10.0-291.0) ng/mL 10/15/17 10/15/17 Range/Units 06:16 11:17 RBC (3.80-5.40) m/uL Hgb (11.4-16.0) gm/dL Hct (34.0-46.0) % MCHC (31.0-37.0) g/dL RDW (11.5-15.5) % Sodium (137-145) mmol/L Chloride (98-107) mmol/L BUN (7-17) mg/dL Creatinine (0.52-1.04) mg/dL Glucose (74-99) mg/dL POC Glucose (mg/dL) 142 H 143 H (75-99) mg/dL Hemoglobin A1c (4.0-6.0) % Calcium (8.4-10.2) mg/dL Iron (50-170) ug/dL TIBC (228-460) ug/dL Ferritin (10.0-291.0) ng/mL Microbiology - Last 24 Hours (Table) 10/13/17 14:15 Gram Stain - Preliminary Breast - Right Wound Culture - Preliminary Pseudomonas aeruginosa Presumptive Staph aureus 10/13/17 14:15 Gram Stain - Preliminary Leg - Right Wound Culture - Preliminary Gram Neg Bacilli Assessment and Plan Plan: Assessment: 1. End-stage renal disease maintained on hemodialysis on a Friday schedule via left upper extremity AV fistula. 2. Left-sided chest pain. Rule out acute coronary syndrome. Cardiology following. 3. Right lower extremity wound status post debridement on October [address] Wound culture positive for gram-negative bacilli. 4. Right breast black eschar. No obvious drainage. The lesion is not painful so doubt calciphylaxis. Patient's PTH, calcium and phosphorus have been well- controlled. Patient had also sustained another fall and had developed a hematoma on her breast. Case discussed with surgery. Wound culture positive for Pseudomonas and staph aureus. 5. History of coronary artery disease. 6. Diabetes mellitus. 7. Chronic kidney disease mineral bone disease. 8. Hypertension with chronic kidney disease. 9. Hyponatremia secondary to chronic kidney disease. Improved postdialysis. 10. Metabolic acidosis secondary to chronic kidney disease. Improved postdialysis. 11. Anemia of chronic kidney disease. Iron saturation is low. Ferritin is high. Maintained on Aranesp. Plan: Hemodialysis today. Antibiotics per infectious disease recommendations. Hold Norvasc for systolic blood pressure less than 120.
[2017-10-15] MEDS: HYDROmorphone 1 MG/ML 1 ML SYRINGE IVP PRN (12:29)
[2017-10-15 12:44] LABS: Glucose,Whole Blood 113 mg/dL (75-99)
--- NOTE | 2017-10-15 14:17 | P.PN ---
Subjective Progress Note Date: 10/15/17 The patient is a pleasant 62-year-old female patient of Dr. Gar and Dr. JAE Talley as an outpatient with a past medical history significant for coronary artery disease and prior coronary artery stenting with the patient underwent stenting of the proximal left anterior descending artery as well as ramus intermedius in April 2014, diabetes type 2 on insulin pump, end stage renal disease on hemodialysis Friday, as well as dyslipidemia was currently transiently residing subacute rehab at [facility]. Patient comes to the emergency room on and off chest pain a few hours persistent , located left sternal region, also accompanied by pain with deep inspiration, costochondritis, pain persisted till ER evaluation, chronically on Imdur, nitroglycerin did not help symptoms, he was subsequently evaluated in the emergency room. She has chronically elevated troponin, since 04/20/2017. When seen in the ER troponin was 0.91 creatinine 6.6, double basic count 8.2, hemoglobin 8.7 Patient denies any cough no fever no chills, patient denies any calf swelling or pain in the legs, he does have right leg wound, for the past 5 weeks, when the patient fell down on the dentist office, also has wound on the right breast that looks more like gangrene of his lesion that started off as a bruise, and followed there by local wound care physician. Patient completed antibiotics, leg wound is worse than what it is, with foul-smelling odor, and local cellulitic reaction. Patient denies any fever, she does have collagenase treatment topically placed to these areas, history of MRSA in the past within 1 year. History of cat Bite injury 07/23/2017. Immunizations Td is up-to-date. Patient is admitted for unstable angina, and right leg wound ulcerations right breast wound ulcerations with cellulitis. Dr. Chin on consult, Dr. Urias consult from general surgery patient might need debridement on the right breast wounds, cardiology is on consult for chest pain Last admission was in 09/22/2017 for weakness and chest pain found to be junctional rhythm, requiring emergent dialysis for hyperkalemia hemoglobin 8.6 WBC 12.4 platelet VQ scan was performed which was low probability of PE. Echocardiogram was ordered for EF of 55-60%, [id number] pulmonary hypertension, bicuspid aortic valve. Her last A1c was 6.3 09/23/201710/13: Has been seen by Dr. Chin with recommendations for antibiotics in form of Rocephin and vancomycin the son previous wound culture of the right breast done at [facility] which was positive for Klebsiella and MRSA. Patient's been seen by Dr. Urias with plan for surgical debridement of the right knee. No plan for debridement of the right breast at this point. Patient is been seen by cardiology with recommendations to continue current medication and no other workup identified this time. Patient is undergoing hemodialysis this morning and is followed by Dr. Souza. She did have a low blood sugar this morning in the 50s and she is managing her own insulin pump. Pre-lunch was 79. She has been afebrile. Echocardiogram reveals EF of 55-60%, moderate concentric left ventricular hypertrophy, LV mildly dilated at 29-33, mild aortic valve sclerosis , mild mitral regurgitation, mild tricuspid regurgitation, mild pulmonary hypertension. 10/15: The access which was obtained apparently when the patient went OR. She had excisional debridement of subcutaneous tissue right lower extremity with placement of a wound VAC with Dr. Urias last evening. Dr. Chin is recommending follow-up in the wound healing Center. Wound cultures from right breast is positive versus pseudomonas and presumptive staph aureus. Wound culture from the right leg is Klebsiella and group D enterococcus. Antibiotics have been clarified with Dr. Chin for Cipro and Bactrim SS and plan for follow -up in the [facility]. Patient has been afebrile. White count is 8.0 , hemoglobin 7.7. BUN 32 and creatinine 4.77. Sodium is 134. Blood sugars of been running between 106 and 304. The pressures of been on the lower side since surgery. Norvasc was held last evening. Patient is planning to return home with homecare and wants to make in meeting in her home tomorrow morning. A wound VAC, home oxygen as she dropped to 84% and hospital bed have been ordered. We will plan to monitor overnight and discharged early in the morning. Objective - Vital Signs Vital signs: Vital Signs Temp 97.6 F 10/15/17 03:00 Pulse 66 10/15/17 03:00 Resp 18 10/15/17 04:00 BP 109/47 10/15/17 03:00 Pulse Ox 99 10/15/17 03:00 Intake & Output 10/14/17 10/15/17 10/15/17 18:59 06:59 18:59 Intake Total 100 500 Output Total 10 Balance 90 500 Weight 113.5 kg Intake: IV 100 Intake, IV Titration 500 Amount Vancomycin 1,750 mg In 500 Sodium Chloride 0.9% 500 ml @ 166.667 mls/hr IVPB ONCE ONE Rx#:[id number] Output: Estimated Blood Loss 10 Other: Voiding Method Diaper Diaper # Voids 0 - Exam General appearance: cooperative, no acute distress - EENT Eyes: anicteric sclerae, EOMI, PERRLA, dentition normal, normal appearance ENT: no hard of hearing, no hearing grossly normal, NA/AT, normal oropharynx, no other, no pharyngeal erythema, no thrush, no tonsillar exudates, no tonsillar swelling - Neck Neck: no lymphadenopathy, normal ROM, no other, no rigidity, no stridor, no thyromegaly - Respiratory Respiratory: bilateral: CTA, negative: diminished, dullness, rales, rhonchi, wheezing, prolonged expiration - Cardiovascular Rhythm: regular Heart sounds: normal: S1, S2 Abnormal Heart Sounds: no systolic murmur, no diastolic murmur, no rub, no S3 Gallop, no S4 Gallop, no click, no other - Gastrointestinal General gastrointestinal: organomegaly, soft - Integumentary Integumentary: decreased turgor, normal, ulcer (Right lower fibula region leg 10 cm x 4 cm x 1 cm deep right breast 3 cm x 4.5 cm right upper quadrant cm approximately ) - Neurologic Neurologic: CNII-XII intact - Musculoskeletal Musculoskeletal: gait normal, strength equal bilaterally - Psychiatric Psychiatric: A&O x's 3, appropriate affect, intact judgment & insight - Labs CBC & Chem 7: 10/15/17 05:58 10/15/17 05:58 Labs: Abnormal Lab Results - Last 24 Hours (Table) 10/13/17 10/14/17 10/14/17 Range/Units 19:45 06:25 06:25 RBC (3.80-5.40) m/uL Hgb (11.4-16.0) gm/dL Hct (34.0-46.0) % MCHC (31.0-37.0) g/dL RDW (11.5-15.5) % Sodium (137-145) mmol/L Chloride (98-107) mmol/L BUN (7-17) mg/dL Creatinine (0.52-1.04) mg/dL Glucose (74-99) mg/dL POC Glucose (mg/dL) (75-99) mg/dL Hemoglobin A1c 6.5 H (4.0-6.0) % Calcium (8.4-10.2) mg/dL Phosphorus 5.0 H (2.5-4.5) mg/dL Iron 22 L (50-170) ug/dL TIBC 149 L (228-460) ug/dL Ferritin 1425.7 H (10.0-291.0) ng/mL 10/14/17 10/14/17 10/14/17 Range/Units 16:18 18:58 20:45 RBC (3.80-5.40) m/uL Hgb (11.4-16.0) gm/dL Hct (34.0-46.0) % MCHC (31.0-37.0) g/dL RDW (11.5-15.5) % Sodium (137-145) mmol/L Chloride (98-107) mmol/L BUN (7-17) mg/dL Creatinine (0.52-1.04) mg/dL Glucose (74-99) mg/dL POC Glucose (mg/dL) 264 H 374 H 304 H (75-99) mg/dL Hemoglobin A1c (4.0-6.0) % Calcium (8.4-10.2) mg/dL Phosphorus (2.5-4.5) mg/dL Iron (50-170) ug/dL TIBC (228-460) ug/dL Ferritin (10.0-291.0) ng/mL 10/14/17 10/15/17 10/15/17 Range/Units 22:37 02:56 05:58 RBC (3.80-5.40) m/uL Hgb (11.4-16.0) gm/dL Hct (34.0-46.0) % MCHC (31.0-37.0) g/dL RDW (11.5-15.5) % Sodium 134 L (137-145) mmol/L Chloride 94 L (98-107) mmol/L BUN 32 H (7-17) mg/dL Creatinine 4.77 H (0.52-1.04) mg/dL Glucose 126 H (74-99) mg/dL POC Glucose (mg/dL) 245 H 106 H (75-99) mg/dL Hemoglobin A1c (4.0-6.0) % Calcium 7.2 L (8.4-10.2) mg/dL Phosphorus (2.5-4.5) mg/dL Iron (50-170) ug/dL TIBC (228-460) ug/dL Ferritin (10.0-291.0) ng/mL 10/15/17 10/15/17 Range/Units 05:58 06:16 RBC 2.82 L (3.80-5.40) m/uL Hgb 7.7 L (11.4-16.0) gm/dL Hct 25.7 L (34.0-46.0) % MCHC 30.1 L (31.0-37.0) g/dL RDW 18.2 H (11.5-15.5) % Sodium (137-145) mmol/L Chloride (98-107) mmol/L BUN (7-17) mg/dL Creatinine (0.52-1.04) mg/dL Glucose (74-99) mg/dL POC Glucose (mg/dL) 142 H (75-99) mg/dL Hemoglobin A1c (4.0-6.0) % Calcium (8.4-10.2) mg/dL Phosphorus (2.5-4.5) mg/dL Iron (50-170) ug/dL TIBC (228-460) ug/dL Ferritin (10.0-291.0) ng/mL Microbiology - Last 24 Hours (Table) 10/13/17 14:15 Gram Stain - Preliminary Leg - Right Wound Culture - Preliminary Gram Neg Bacilli 10/13/17 14:15 Gram Stain - Preliminary Breast - Right Wound Culture - Preliminary Gram Neg Bacilli Assessment and Plan Plan: 1. Unstable angina Chest pain with history of CAD,symptomatic costochondritis chronically elevated troponins: Post PCI with angioplasty and stent placement or primary this year had been seeing cardiology Dr. DOLLY Jc regular basis. she is to continue on double antiplatelet agents statins and beta blockers. Serial cardiac biomarkers Troponins 3. EKG in with nonspecific ST or T-wave changes. Patient will be placed on Nitropaste, hold off Imdur, continue Abner inhibitors , Lovenox subcu patient is chronically elevated troponins . 2. Right leg deep ulcer from previous trauma, 5 weeks old, right breast ulcer with suspicion of superficial eschar formation, collagenase to be continued, consult Dr. Chin, history of MRSA with going to initiate vancomycin with pharmacy to dose, additional antibiotic to come from Dr. Chin. Cultures to be done, consult Dr. Urias for possible debridement right breast later today. Rocephin has been added. Wound VAC to be arranged at home. 3 end-stage chronic kidney disease, renal bone disease b on hemodialysis 3 times a week consult nephrology continue dialysis as outpatient to resume treatment as scheduled Friday schedule. Continue renal replacement therapy 4 type 2 diabetes on insulin pump: Continue insulin via pump continue Accu-Chek with sliding scales coverage as well. Last A1c 6.3 09/23/2017 5 hyperlipidemia: Continue Lipitor at 40 mg daily no changes were made. 6 COPD: Continue Pulmicort along with DuoNeb 4 times a day when necessary no changes. 7. Hypothyroidism: Continue levothyroxine with 50 g daily. No changes 8. Generalized anxiety disorder and recurrent depression are stable on Lexapro and BuSpar along with Ativan. Last admission Ativan reduced to 0.5 mg at bedtime from 1 mg twice a day. Patient is taking high amount of Ativan which is causing her to fall frequently. 9. Right breast wound, hematoma secondary to a fall, nonhealing. Culture positive for Klebsiella and MRSA. Antibiotics of vancomycin and Rocephin. 10 GERD/GI prophylaxis: Continue Pepcid 20 mg daily 11. Hypertensive cardiovascular disease on amlodipine 10 mg daily Lasix 80 mg twice a day Imdur 30 mg daily 12. Chronic pain syndrome: Resume hydrocodone 13. Anemia of chronic disease. Monitor CBC, iron studies, patient might need erythropoetin stimulating agents 14. Chronic diastolic heart failure with EF of 55%. Hospital bed ordered. Continue oral Lasix 15. Chronic hypoxic respiratory failure with a pulse ox of 84% at rest. 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 DVT prophylaxis heparinsq Discharge plan: Home with [facility] on 10/16. Impression and plan of care have been directed as dictated by the signing physician. Emely Contreras nurse practitioner acting as scribe for signing physician.
--- NOTE | 2017-10-15 14:55 | P.PN ---
Subjective Progress Note Date: 10/15/17 This is a 62-year-old female who follows with Dr. Jovana Jc in the office. She has known history of end-stage renal disease on hemodialysis, coronary artery disease and multivessel PCI, hypertension, diabetes, hypothyroidism, obesity, patient was admitted to the hospital because of symptoms of chest discomfort. She's describes the discomfort as a pressure sensation in her chest, pain does worsen with deep breathing, and she states she is unable to take a complete deep breath. She also has been more short of breath than usual. Patient did have a fall recently for which she has been getting wound care at the [facility], it appears that she has a significant hematoma in her right calf area with infection. Patient also has a significant area of hematoma and infection noted in the right breast area both of which appear to be from her recent fall. Chest x-ray on admission showed cardiomegaly with suspected new mild central vascular congestion and a new small right pleural effusion. EKG shows a normal sinus rhythm with first- degree AV block, right bundle branch block pattern and left anterior fascicular block, ST-T wave changes noted in the anterior lateral leads similar to prior EKGs. Echocardiogram with Doppler study was performed which revealed an ejection fraction of 55-60%. Consultation was made with the surgeons because of the patient's wounds on her right leg and breast area, the plan is for them to proceed with surgical debridement today and a possible wound VAC. Blood pressure 118/50 with a heart rate in the 60s to 70s, 94% on room air. White blood cell count 8.2 and admission, 11.1 this morning, hemoglobin 8.6, platelet count 298. Sodium 131, potassium 4.3, BUN 50, creatinine 7.7. Blood sugar on arrival to 10, 90 this morning. Magnesium 2.7. BNP level 27,000. Troponin 0.09, 0.09, 0.07. Upon review of patient's multiple prior admissions to the hospital, she is always noted to have troponin abnormality within this range. At the time of my examination this morning, patient states she feels it's hard to take a deep breath, he feels mildly short of breath, intermittently gets chest discomfort she states at times it lasts hours in duration. Feeling weak and tired. 10/15/2017 Patient was seen and examined this morning, she did undergo debridement with the wound VAC placement, still complaining intermittently of chest pains. Pain only occurs when she takes a very deep breath, hemodynamically she's been stable. At pressure 110/40 with a heart rate in the 60s, 100% on 2 L of oxygen. Hematoma globin 7.7 today, sodium 134, potassium 4.3, BUN 32, creatinine 4.7. Objective - Vital Signs Vital signs: Vital Signs Temp 98 F 10/15/17 11:54 Pulse 60 10/15/17 12:00 Resp 18 10/15/17 12:00 BP 111/43 10/15/17 11:54 Pulse Ox 100 10/15/17 11:54 Intake & Output 10/14/17 10/15/17 10/15/17 18:59 06:59 18:59 Intake Total 100 500 120 Output Total 10 Balance 90 500 120 Weight 113.5 kg Intake: IV 100 Intake, IV Titration 500 Amount Vancomycin 1,750 mg In 500 Sodium Chloride 0.9% 500 ml @ 166.667 mls/hr IVPB ONCE ONE Rx#:[id number] Oral 120 Output: Estimated Blood Loss 10 Other: Voiding Method Diaper Diaper # Voids 0 - Exam PHYSICAL EXAMINATION: GENERAL: 62-year-old female in no acute distress at the time of my examination HEENT: Head is atraumatic, normocephalic. Pupils equal, round. Sclera anicteric. Conjunctiva are clear. Mucous membranes of the mouth are moist. Neck is supple. There is no elevated jugular venous pressure. No carotid bruit is heard. HEART EXAMINATION: Heart S1 and S2 systolic murmur is heard. CHEST EXAMINATION: Lungs are clear anteriorly with mild diminished air entry to the bases. ABDOMEN: Soft, obese, nontender. Bowel sounds are heard. No organomegaly noted. EXTREMITIES:[ 1+ peripheral pulses with no evidence of peripheral edema there is a dressing in place to the right outer calf area with a significant hematoma and evidence of necrosis. NEUROLOGIC patient is awake, alert and oriented X3. - Labs CBC & Chem 7: 10/15/17 05:58 10/15/17 05:58 Labs: Abnormal Lab Results - Last 24 Hours (Table) 10/13/17 10/14/17 10/14/17 Range/Units 19:45 06:25 16:18 RBC (3.80-5.40) m/uL Hgb (11.4-16.0) gm/dL Hct (34.0-46.0) % MCHC (31.0-37.0) g/dL RDW (11.5-15.5) % Sodium (137-145) mmol/L Chloride (98-107) mmol/L BUN (7-17) mg/dL Creatinine (0.52-1.04) mg/dL Glucose (74-99) mg/dL POC Glucose (mg/dL) 264 H (75-99) mg/dL Hemoglobin A1c 6.5 H (4.0-6.0) % Calcium (8.4-10.2) mg/dL Iron 22 L (50-170) ug/dL TIBC 149 L (228-460) ug/dL Ferritin 1425.7 H (10.0-291.0) ng/mL 10/14/17 10/14/17 10/14/17 Range/Units 18:58 20:45 22:37 RBC (3.80-5.40) m/uL Hgb (11.4-16.0) gm/dL Hct (34.0-46.0) % MCHC (31.0-37.0) g/dL RDW (11.5-15.5) % Sodium (137-145) mmol/L Chloride (98-107) mmol/L BUN (7-17) mg/dL Creatinine (0.52-1.04) mg/dL Glucose (74-99) mg/dL POC Glucose (mg/dL) 374 H 304 H 245 H (75-99) mg/dL Hemoglobin A1c (4.0-6.0) % Calcium (8.4-10.2) mg/dL Iron (50-170) ug/dL TIBC (228-460) ug/dL Ferritin (10.0-291.0) ng/mL 10/15/17 10/15/17 10/15/17 Range/Units 02:56 05:58 05:58 RBC 2.82 L (3.80-5.40) m/uL Hgb 7.7 L (11.4-16.0) gm/dL Hct 25.7 L (34.0-46.0) % MCHC 30.1 L (31.0-37.0) g/dL RDW 18.2 H (11.5-15.5) % Sodium 134 L (137-145) mmol/L Chloride 94 L (98-107) mmol/L BUN 32 H (7-17) mg/dL Creatinine 4.77 H (0.52-1.04) mg/dL Glucose 126 H (74-99) mg/dL POC Glucose (mg/dL) 106 H (75-99) mg/dL Hemoglobin A1c (4.0-6.0) % Calcium 7.2 L (8.4-10.2) mg/dL Iron (50-170) ug/dL TIBC (228-460) ug/dL Ferritin (10.0-291.0) ng/mL 10/15/17 10/15/17 10/15/17 Range/Units 06:16 11:17 12:40 RBC (3.80-5.40) m/uL Hgb (11.4-16.0) gm/dL Hct (34.0-46.0) % MCHC (31.0-37.0) g/dL RDW (11.5-15.5) % Sodium (137-145) mmol/L Chloride (98-107) mmol/L BUN (7-17) mg/dL Creatinine (0.52-1.04) mg/dL Glucose (74-99) mg/dL POC Glucose (mg/dL) 142 H 143 H 113 H (75-99) mg/dL Hemoglobin A1c (4.0-6.0) % Calcium (8.4-10.2) mg/dL Iron (50-170) ug/dL TIBC (228-460) ug/dL Ferritin (10.0-291.0) ng/mL Microbiology - Last 24 Hours (Table) 10/13/17 14:15 Gram Stain - Preliminary Leg - Right Wound Culture - Preliminary Klebsiella pneumoniae Group D Enterococcus 10/13/17 14:15 Gram Stain - Preliminary Breast - Right Wound Culture - Preliminary Pseudomonas aeruginosa Presumptive Staph aureus Assessment and Plan Plan: Assessment and plan #1 chest pain with atypical features for acute coronary syndrome. Pleuritic in nature. Troponins 0.09, 0.09, 0.07. EKG shows a sinus bradycardia with first- degree AV block, right bundle branch block pattern, and left anterior fascicular block with nonspecific ST-T wave changes similar to prior EKGs. Echo performed this admission revealed a normal left ventricular systolic function #2 end-stage renal disease on hemodialysis #3 known history of coronary artery disease with prior multivessel PCI, most recent one was done in December 2015 which time patient underwent LAD stent #4 hypertension #5 diabetes #6 hyperlipidemia #7 morbid obesity #8 chronic anemia #9 right leg and right breast wound, status post debridement of the right leg wound with wound VAC placement. Plan From cardiology's perspective we'll continue with current medications. DNP note has been reviewed, I agree with a documented findings and plan of care. Patient was seen and examined. (
[2017-10-15] MEDS: FOLIC ACID-VIT B COMPLEX-VIT C 1 CAP PO SCH (17:10)
[2017-10-15] MEDS: CLOPIDOGREL 75 MG TAB PO SCH (17:10)
[2017-10-15] MEDS: ASPIRIN 81 MG PO SCH (17:10)
[2017-10-15 17:33] LABS: Glucose,Whole Blood 70 mg/dL (75-99)
--- NOTE | 2017-10-15 19:20 | NM ---
EXAMINATION TYPE: NM pul vent and perfuse DATE OF EXAM: 10/15/2017 COMPARISON: Chest radiographs 10/13/2017 HISTORY: Hypoxia, dyspnea, pain and cough and wheezing TECHNIQUE: Utilizing inhalation of 62.5 mCi Tc 99m DTPA aerosol and intravenous injection of 5.2 mCi of Tc 99m MAA, ventilation and perfusion images are acquired post injection in multiple projections. FINDINGS: Mild heterogeneity of the perfusion and ventilation radiopharmaceutical activity throughout the lungs. No evidence of mismatched V/Q defects. IMPRESSION: Low probability for the diagnosis of pulmonary embolism.
[2017-10-15 19:46] LABS: Glucose,Whole Blood 60 mg/dL (75-99)
[2017-10-15 20:29] LABS: Glucose,Whole Blood 92 mg/dL (75-99)
[2017-10-15] MEDS: ATORVASTATIN 80 MG TAB PO SCH (22:16)
[2017-10-16 05:39] LABS: Glucose,Whole Blood 148 mg/dL (75-99)
[2017-10-16 06:52] VITALS: PULSE 72; TEMP 97.3
[2017-10-16] MEDS: FUROSEMIDE 80 MG TAB PO SCH (06:59)
[2017-10-16] MEDS: LEVOTHYROXINE 100 MCG TAB PO SCH (06:59)
[2017-10-16] MEDS: LEVOTHYROXINE 25 MCG TAB PO SCH (07:00)
[2017-10-16] MEDS: CALCIUM ACETATE 667 MG CAP PO SCH (07:00)
[2017-10-16] MEDS: INSULIN PUMP MEAL BOLUS 1 UNIT MISC MISCELLANE SCH ×3 (07:37→07:42)
[2017-10-16] MEDS: busPIRone HCl 10 MG TAB PO SCH (07:38)
[2017-10-16] MEDS: ESCITALOPRAM 20 MG TAB PO SCH (07:38)
[2017-10-16] MEDS: LORazepam 0.5 MG TAB PO SCH (07:39)
[2017-10-16] MEDS: FAMOTIDINE 20 MG TAB PO SCH (07:39)
[2017-10-16] MEDS: cefTRIAXone IN SWFI 2,000 MG/20 ML SYRINGE IVP SCH (07:40)
[2017-10-16] MEDS: lamoTRIgine 100 MG TAB PO SCH (07:40)
[2017-10-16] MEDS: COLLAGENASE 250 UNIT/GM OINTMENT 30 GM TUBE TOPICAL SCH (07:42)
[2017-10-16] MEDS: HYDROmorphone 1 MG/ML 1 ML SYRINGE IVP PRN (07:43)
[2017-10-16] MEDS: amLODIPine 10 MG TAB PO SCH (07:49)
--- NOTE | 2017-10-16 08:30 | P.PN ---
Subjective Patient is seen in follow-up for end-stage renal disease. She is maintained on hemodialysis on a Friday schedule. Patient underwent right lower extremity wound debridement on 10/14/17 and has a wound VAC in place. Denies chest pain. Does admit to dyspnea without oxygen. No vomiting or diarrhea. Vital signs are stable. General: The patient appeared well nourished and normally developed. HEENT: Head exam is unremarkable. Neck is without jugular venous distension. LUNGS: Lungs are clear to auscultation and percussion. Breath sounds decreased. HEART: Rate and Rhythm are regular. First and second heart sounds normal. No murmurs, rubs or gallops. ABDOMEN: Abdominal exam reveals normal bowel sounds. Non-tender and non- distended. No evidence of peritonitis. EXTREMITITES: No clubbing, cyanosis, or edema. Surgical wound noted. No obvious drainage. Wound VAC in place. Objective - Vital Signs Vital signs: Vital Signs Temp 97.3 F L 10/16/17 04:00 Pulse 72 10/16/17 04:00 Resp 18 10/16/17 04:00 BP 134/63 10/16/17 04:00 Pulse Ox 100 10/16/17 04:00 Intake & Output 10/15/17 10/16/17 10/16/17 18:59 06:59 18:59 Intake Total 342 Output Total 0 0 Balance 342 0 Weight 111.7 kg Intake: Oral 342 Output: Urine 0 0 Other: Voiding Method Diaper # Voids 0 - Labs CBC & Chem 7: 10/15/17 05:58 10/15/17 05:58 Labs: Abnormal Lab Results - Last 24 Hours (Table) 10/15/17 10/15/17 10/15/17 Range/Units 11:17 12:40 17:13 POC Glucose (mg/dL) 143 H 113 H 70 L (75-99) mg/dL 10/15/17 10/16/17 Range/Units 19:33 05:36 POC Glucose (mg/dL) 60 L 148 H (75-99) mg/dL Microbiology - Last 24 Hours (Table) 10/13/17 14:15 Gram Stain - Preliminary Leg - Right Wound Culture - Preliminary Klebsiella pneumoniae Group D Enterococcus 10/13/17 14:15 Gram Stain - Preliminary Breast - Right Wound Culture - Preliminary Pseudomonas aeruginosa Presumptive Staph aureus Assessment and Plan Plan: Assessment: 1. End-stage renal disease maintained on hemodialysis on a Friday schedule via left upper extremity AV fistula. 2. Left-sided chest pain. Cardiology following. No interventions planned at this time. 3. Right lower extremity wound status post debridement on October [address] Wound culture positive for Klebsiella pneumoniae and group D enterococcus. 4. Right breast black eschar. No obvious drainage. The lesion is not painful so doubt calciphylaxis. Patient's PTH, calcium and phosphorus have been well- controlled. Patient had also sustained another fall and had developed a hematoma on her breast. Case discussed with surgery. Wound culture positive for Pseudomonas and staph aureus. 5. History of coronary artery disease. 6. Diabetes mellitus. 7. Chronic kidney disease mineral bone disease. 8. Hypertension with chronic kidney disease. 9. Hyponatremia secondary to chronic kidney disease. Improved postdialysis. 10. Metabolic acidosis secondary to chronic kidney disease. Improved postdialysis. 11. Anemia of chronic kidney disease. Iron saturation is low. Ferritin is high. Maintained on Aranesp. Plan: Hemodialysis tomorrow. Antibiotics per infectious disease recommendations. Hold Norvasc for systolic blood pressure less than 120. Low probability of PE noted on VQ scan. She will be going home with home oxygen.
[2017-10-16] MEDS: HYDROcodone/APAP 10-325MG 1 EACH TAB PO PRN (09:53)
[2017-10-16 11:41] VITALS: BP 145/68
--- NOTE | 2017-10-16 12:30 | P.PN ---
Subjective Progress Note Date: 10/16/17 This is a 62-year-old female who follows with Dr. Jovana Jc in the office. She has known history of end-stage renal disease on hemodialysis, coronary artery disease and multivessel PCI, hypertension, diabetes, hypothyroidism, obesity, patient was admitted to the hospital because of symptoms of chest discomfort. She's describes the discomfort as a pressure sensation in her chest, pain does worsen with deep breathing, and she states she is unable to take a complete deep breath. She also has been more short of breath than usual. Patient did have a fall recently for which she has been getting wound care at the [facility], it appears that she has a significant hematoma in her right calf area with infection. Patient also has a significant area of hematoma and infection noted in the right breast area both of which appear to be from her recent fall. Chest x-ray on admission showed cardiomegaly with suspected new mild central vascular congestion and a new small right pleural effusion. EKG shows a normal sinus rhythm with first- degree AV block, right bundle branch block pattern and left anterior fascicular block, ST-T wave changes noted in the anterior lateral leads similar to prior EKGs. Echocardiogram with Doppler study was performed which revealed an ejection fraction of 55-60%. Consultation was made with the surgeons because of the patient's wounds on her right leg and breast area, the plan is for them to proceed with surgical debridement today and a possible wound VAC. Blood pressure 118/50 with a heart rate in the 60s to 70s, 94% on room air. White blood cell count 8.2 and admission, 11.1 this morning, hemoglobin 8.6, platelet count 298. Sodium 131, potassium 4.3, BUN 50, creatinine 7.7. Blood sugar on arrival to 10, 90 this morning. Magnesium 2.7. BNP level 27,000. Troponin 0.09, 0.09, 0.07. Upon review of patient's multiple prior admissions to the hospital, she is always noted to have troponin abnormality within this range. At the time of my examination this morning, patient states she feels it's hard to take a deep breath, he feels mildly short of breath, intermittently gets chest discomfort she states at times it lasts hours in duration. Feeling weak and tired. 10/15/2017 Patient was seen and examined this morning, she did undergo debridement with the wound VAC placement, still complaining intermittently of chest pains. Pain only occurs when she takes a very deep breath, hemodynamically she's been stable. At pressure 110/40 with a heart rate in the 60s, 100% on 2 L of oxygen. Hemaglobin 7.7 today, sodium 134, potassium 4.3, BUN 32, creatinine 4.7. 10/16/2017 Patient seen and examined this morning, feeling significantly better overall. Anticipating discharge home today. Hemodynamically stable. Objective - Vital Signs Vital signs: Vital Signs Temp 97.3 F L 10/16/17 04:00 Pulse 72 10/16/17 04:00 Resp 18 10/16/17 04:00 BP 145/68 10/16/17 08:00 Pulse Ox 100 10/16/17 04:00 Intake & Output 10/15/17 10/16/17 10/16/17 18:59 06:59 18:59 Intake Total 342 240 Output Total 0 0 Balance 342 0 240 Weight 111.7 kg Intake: Oral 342 240 Output: Urine 0 0 Other: Voiding Method Diaper # Voids 0 - Exam PHYSICAL EXAMINATION: GENERAL: 62-year-old female in no acute distress at the time of my examination HEENT: Head is atraumatic, normocephalic. Pupils equal, round. Sclera anicteric. Conjunctiva are clear. Mucous membranes of the mouth are moist. Neck is supple. There is no elevated jugular venous pressure. No carotid bruit is heard. HEART EXAMINATION: Heart S1 and S2 systolic murmur is heard. CHEST EXAMINATION: Lungs are clear anteriorly with mild diminished air entry to the bases. ABDOMEN: Soft, obese, nontender. Bowel sounds are heard. No organomegaly noted. EXTREMITIES:[ 1+ peripheral pulses with no evidence of peripheral edema there is a dressing in place to the right outer calf area with a significant hematoma and evidence of necrosis. NEUROLOGIC patient is awake, alert and oriented X3. - Labs CBC & Chem 7: 10/15/17 05:58 10/15/17 05:58 Labs: Abnormal Lab Results - Last 24 Hours (Table) 10/15/17 10/15/17 10/15/17 Range/Units 12:40 17:13 19:33 POC Glucose (mg/dL) 113 H 70 L 60 L (75-99) mg/dL 10/16/17 Range/Units 05:36 POC Glucose (mg/dL) 148 H (75-99) mg/dL Microbiology - Last 24 Hours (Table) 10/13/17 14:15 Gram Stain - Final Breast - Right Wound Culture - Final Pseudomonas aeruginosa Staphylococcus aureus 10/13/17 14:15 Gram Stain - Preliminary Leg - Right Wound Culture - Preliminary Klebsiella pneumoniae Group D Enterococcus Assessment and Plan Plan: Assessment and plan #1 chest pain with atypical features for acute coronary syndrome. Pleuritic in nature. Troponins 0.09, 0.09, 0.07. EKG shows a sinus bradycardia with first- degree AV block, right bundle branch block pattern, and left anterior fascicular block with nonspecific ST-T wave changes similar to prior EKGs. Echo performed this admission revealed a normal left ventricular systolic function #2 end-stage renal disease on hemodialysis #3 known history of coronary artery disease with prior multivessel PCI, most recent one was done in December 2015 which time patient underwent LAD stent #4 hypertension #5 diabetes #6 hyperlipidemia #7 morbid obesity #8 chronic anemia #9 right leg and right breast wound, status post debridement of the right leg wound with wound VAC placement. Plan From cardiology's perspective we'll continue with current medications. She may be able to be discharged home from our standpoint to follow-up with Dr. Jovana Jc in the office post discharge. DNP note has been reviewed, I agree with a documented findings and plan of care. Patient was seen and examined. (
--- NOTE | 2017-10-16 13:55 | P.DS ---
Providers Date of admission: 10/13/17 13:47 Expected date of discharge: 10/16/17 Attending physician: Luiza Estrella Consults: 10/13/17 13:48 Consult Physician Routine Consulting Provider: Can Frye Consult Reason/Comments: CP, trop elevation Do you want consulting provider notified?: Yes Consult Physician Routine Consulting Provider: Cherie Talley Consult Reason/Comments: End-stage renal disease Do you want consulting provider notified?: Yes 10/13/17 14:06 Consult Physician Routine Consulting Provider: Josué Chin Consult Reason/Comments: leg right lower, right breast ulcer with hx mrsa Do you want consulting provider notified?: Already Contacted 10/13/17 14:41 Consult Physician Routine Consulting Provider: Unique Urias Consult Reason/Comments: right breast wound, right leg wound Do you want consulting provider notified?: Yes Primary care physician: Kimberli Gar [facility] Course: The patient is a pleasant 62-year-old female patient of Dr. Gar and Dr. JAE Talley as an outpatient with a past medical history significant for coronary artery disease and prior coronary artery stenting with the patient underwent stenting of the proximal left anterior descending artery as well as ramus intermedius in April 2014, diabetes type 2 on insulin pump, end stage renal disease on hemodialysis Friday, as well as dyslipidemia was currently transiently residing subacute rehab at [facility]. Patient comes to the emergency room on and off chest pain a few hours persistent , located left sternal region, also accompanied by pain with deep inspiration, costochondritis, pain persisted till ER evaluation, chronically on Imdur, nitroglycerin did not help symptoms, he was subsequently evaluated in the emergency room. She has chronically elevated troponin, since 04/20/2017. When seen in the ER troponin was 0.91 creatinine 6.6, double basic count 8.2, hemoglobin 8.7 Patient denies any cough no fever no chills, patient denies any calf swelling or pain in the legs, he does have right leg wound, for the past 5 weeks, when the patient fell down on the dentist office, also has wound on the right breast that looks more like gangrene of his lesion that started off as a bruise, and followed there by local wound care physician. Patient completed antibiotics, leg wound is worse than what it is, with foul-smelling odor, and local cellulitic reaction. Patient denies any fever, she does have collagenase treatment topically placed to these areas, history of MRSA in the past within 1 year. History of cat Bite injury 07/23/2017. Immunizations Td is up-to-date. Patient is admitted for unstable angina, and right leg wound ulcerations right breast wound ulcerations with cellulitis. Dr. Chin on consult, Dr. Urias consult from general surgery patient might need debridement on the right breast wounds, cardiology is on consult for chest pain Last admission was in 09/22/2017 for weakness and chest pain found to be junctional rhythm, requiring emergent dialysis for hyperkalemia hemoglobin 8.6 WBC 12.4 platelet VQ scan was performed which was low probability of PE. Echocardiogram was ordered for EF of 55-60%, [id number] pulmonary hypertension, bicuspid aortic valve. Her last A1c was 6.3 09/23/201710/13: Has been seen by Dr. Chin with recommendations for antibiotics in form of Rocephin and vancomycin the son previous wound culture of the right breast done at [facility] which was positive for Klebsiella and MRSA. Patient's been seen by Dr. Urias with plan for surgical debridement of the right knee. No plan for debridement of the right breast at this point. Patient is been seen by cardiology with recommendations to continue current medication and no other workup identified this time. Patient is undergoing hemodialysis this morning and is followed by Dr. Souza. She did have a low blood sugar this morning in the 50s and she is managing her own insulin pump. Pre-lunch was 79. She has been afebrile. Echocardiogram reveals EF of 55-60%, moderate concentric left ventricular hypertrophy, LV mildly dilated at 29-33, mild aortic valve sclerosis , mild mitral regurgitation, mild tricuspid regurgitation, mild pulmonary hypertension. 10/15: The access which was obtained apparently when the patient went OR. She had excisional debridement of subcutaneous tissue right lower extremity with placement of a wound VAC with Dr. Urias last evening. Dr. Chin is recommending follow-up in the wound healing Center. Wound cultures from right breast is positive versus pseudomonas and presumptive staph aureus. Wound culture from the right leg is Klebsiella and group D enterococcus. Antibiotics have been clarified with Dr. Chin for Cipro and Bactrim SS and plan for follow -up in the [facility]. Patient has been afebrile. White count is 8.0 , hemoglobin 7.7. BUN 32 and creatinine 4.77. Sodium is 134. Blood sugars of been running between 106 and 304. The pressures of been on the lower side since surgery. Norvasc was held last evening. Patient is planning to return home with homecare and wants to make in meeting in her home tomorrow morning. A wound VAC, home oxygen as she dropped to 84% and hospital bed have been ordered. We will plan to monitor overnight and discharged early in the morning. 10/16: She is planning to go home at 11:00 today. Wound VAC has been delivered and arrangements will be made for hospital bed to be delivered at home. Oxygen has been taking care of as well. Patient will be discharged home today in stable condition. Discharge Diagnoses: 1. Unstable angina Chest pain with history of CAD,symptomatic costochondritis with chronically elevated troponins 2. Right leg deep ulcer from previous trauma and right breast ulcer 3. End-stage kidney disease, renal bone disease 4. Diabetes mellitus type 2 on insulin pump 5. Hyperlipidemia 6. COPD 7. Hypothyroidism 8. Generalized anxiety disorder and recurrent depression 9. Right breast wound, hematoma secondary to a fall, nonhealing. 10. GERD 11. Hypertensive cardiovascular disease 12. Chronic pain syndrome 13. Anemia of chronic disease. 14. Chronic diastolic heart failure with EF of 55%. 15. Chronic hypoxic respiratory failure with a pulse ox of 84% at rest. personal fitness manager to set up for home oxygen. Discharge plan: Home with [facility] Impression and plan of care have been directed as dictated by the signing physician. Emely Contreras nurse practitioner acting as scribe for signing physician. Patient Condition at Discharge: Good Plan - Discharge Summary Discharge Rx Participant: No New Discharge Prescriptions: New Ciprofloxacin HCl [Cipro] 250 mg PO DAILY #21 tablet Sulfamethoxazole/Trimethoprim [Bactrim SS 400-80 mg] 1 each PO DAILY #21 tablet Continue Famotidine [Pepcid] 20 mg PO DAILY@0800 busPIRone HCL 15 mg PO BID@0800,2100 Escitalopram [Lexapro] 20 mg PO DAILY@0800 Aspirin EC [Ecotrin Low Dose] 81 mg PO DAILY@1700 amLODIPine [Norvasc] 10 mg PO DAILY@0900 Atorvastatin [Lipitor] 80 mg PO HS@2100 Isosorbide Mononitrate ER [Imdur] 30 mg PO DAILY@0800 Clopidogrel [Plavix] 75 mg PO Q48H lamoTRIgine [LaMICtal] 100 mg PO DAILY@0800 lamoTRIgine [LaMICtal] 150 mg PO HS@2100 Calcium Acetate [PhosLo] 667 mg PO TID-W/MEALS cap Levothyroxine Sodium [Synthroid] 200 mcg PO DAILY@0600 Levothyroxine Sodium [Synthroid] 25 mcg PO DAILY@0600 Insulin Aspart (For Pump) [NovoLOG (For Pump)] 0.01 unit SQ-PUMP CONTINUOUS Folic Acid-Vit B Complex-Vit C [Nephrocaps] 1 cap PO DAILY@1700 Collagenase [Santyl] 1 applic TOPICAL DAILY Ondansetron HCl [Zofran] 4 mg PO Q8H PRN PRN Reason: upset stomach Bisacodyl [Dulcolax] 10 mg RECTAL DAILY@0600 PRN PRN Reason: Constipation Furosemide [Lasix] 80 mg PO BID@0600,1400 LORazepam [Ativan] 0.5 mg PO BID@0800,2100 HYDROcodone/APAP 10-325MG [[place] 10-325] 1 tab PO Q6H PRN #12 tab PRN Reason: Pain Discharge Medication List Famotidine [Pepcid] 20 mg PO DAILY@0800 04/29/14 [History] Aspirin EC [Ecotrin Low Dose] 81 mg PO DAILY@1700 01/01/16 [History] Escitalopram [Lexapro] 20 mg PO DAILY@0800 01/01/16 [History] busPIRone HCL 15 mg PO BID@0800,2100 01/01/16 [History] Atorvastatin [Lipitor] 80 mg PO HS@209912/27/16 [History] amLODIPine [Norvasc] 10 mg PO DAILY@0900 12/27/16 [History] Clopidogrel [Plavix] 75 mg PO Q48H 03/21/17 [History] Isosorbide Mononitrate ER [Imdur] 30 mg PO DAILY@0800 03/21/17 [History] lamoTRIgine [LaMICtal] 100 mg PO DAILY@0800 07/01/17 [History] lamoTRIgine [LaMICtal] 150 mg PO HS@209907/01/17 [History] Calcium Acetate [PhosLo] 667 mg PO TID-W/MEALS cap 08/01/17 [Rx] Insulin Aspart (For Pump) [NovoLOG (For Pump)] 0.01 unit SQ-PUMP CONTINUOUS 12/02 [History] Levothyroxine Sodium [Synthroid] 25 mcg PO DAILY@0600 09/22/17 [History] Levothyroxine Sodium [Synthroid] 200 mcg PO DAILY@0600 09/22/17 [History] Collagenase [Santyl] 1 applic TOPICAL DAILY 09/23/17 [History] Folic Acid-Vit B Complex-Vit C [Nephrocaps] 1 cap PO DAILY@1700 09/23/17 [ History] Bisacodyl [Dulcolax] 10 mg RECTAL DAILY@0600 PRN 10/13/17 [History] Furosemide [Lasix] 80 mg PO BID@0600,1400 10/13/17 [History] LORazepam [Ativan] 0.5 mg PO BID@0800,2100 10/13/17 [History] Ondansetron HCl [Zofran] 4 mg PO Q8H PRN 10/13/17 [History] Ciprofloxacin HCl [Cipro] 250 mg PO DAILY #21 tablet 10/15/17 [Rx] HYDROcodone/APAP 10-325MG [Fieldon 10-325] 1 tab PO Q6H PRN #12 tab 10/15/17 [Rx] Sulfamethoxazole/Trimethoprim [Bactrim SS 400-80 mg] 1 each PO DAILY #21 tablet 10/15/17 [Rx] Follow up Appointment(s)/Referral(s): Cherie Talley MD [STAFF PHYSICIAN] - 1 Week (as scheduled for HD) Carmen Jc MD [STAFF PHYSICIAN] - 3 Weeks (Spoke to information receptionist. Office will call with appointment time) Unique Urias DO [Doctor of Osteopathic Medicine] - 10/23/17 12:30 pm () Kimberli Gar MD [Primary Care Provider] - 10/23/17 11:30 am ( with Yana.) Josué Chin MD [STAFF PHYSICIAN] - 1 Week (at [facility]. [phone] -spoke to information receptionist. office will call with appointment time) [facility] Visiting Nurse, [NON-STAFF] - (Unable to get through. Please call to schedule appointment) Patient Instructions/Handouts: Negative Pressure Wound Therapy (DC) Activity/Diet/Wound Care/Special Instructions: Wound Vac - homecare to set up -continuous at 125 medium -[place] white Discharge Disposition: HOME WITH HOME HEALTH SERVICES
[2017-10-17] MEDS ORDERED: VANCOMYCIN 1,750 MG in SODIUM CHLORIDE 0.9% 500 ML IVPB ONE (06:00)
== END 2017-10-16 11:40 | disposition home health service (06) | DRG 570 ==
LOC: EC 09:26 → 6SEL 13:47
PROVIDERS: ADMIT Family Medicine; ATTEND Family Medicine
PROC: 5A1D70Z Performance of Urinary Filtration, Intermittent, Less than 6 Hours Per Day (ICD-10-PCS; 2017-10-14)
PROC: 0JBN0ZZ Excision of Right Lower Leg Subcutaneous Tissue and Fascia, Open Approach (ICD-10-PCS; principal; 2017-10-14 15:05)
DX: L97.812 Non-pressure chronic ulcer of other part of right lower leg with fat layer exposed (principal); N18.6 End stage renal disease; I25.110 Atherosclerotic heart disease of native coronary artery with unstable angina pectoris; I96 Gangrene, not elsewhere classified; E11.52 Type 2 diabetes mellitus with diabetic peripheral angiopathy with gangrene; E87.1 Hypo-osmolality and hyponatremia; E87.2 Acidosis; F33.9 Major depressive disorder, recurrent, unspecified; I13.2 Hypertensive heart and chronic kidney disease with heart failure and with stage 5 chronic kidney disease, or end stage renal disease; I45.2 Bifascicular block; I50.32 Chronic diastolic (congestive) heart failure; J96.11 Chronic respiratory failure with hypoxia; L03.115 Cellulitis of right lower limb; E11.22 Type 2 diabetes mellitus with diabetic chronic kidney disease; E66.01 Morbid (severe) obesity due to excess calories; I08.3 Combined rheumatic disorders of mitral, aortic and tricuspid valves; I27.20 Pulmonary hypertension, unspecified; L98.491 Non-pressure chronic ulcer of skin of other sites limited to breakdown of skin; B96.1 Klebsiella pneumoniae [K. pneumoniae] as the cause of diseases classified elsewhere; D63.1 Anemia in chronic kidney disease; E03.9 Hypothyroidism, unspecified; E78.5 Hyperlipidemia, unspecified; F41.1 Generalized anxiety disorder; G89.4 Chronic pain syndrome; I25.2 Old myocardial infarction; I25.5 Ischemic cardiomyopathy; I44.30 Unspecified atrioventricular block; J44.9 Chronic obstructive pulmonary disease, unspecified; B95.2 Enterococcus as the cause of diseases classified elsewhere; B96.5 Pseudomonas (aeruginosa) (mallei) (pseudomallei) as the cause of diseases classified elsewhere; B95.61 Methicillin susceptible Staphylococcus aureus infection as the cause of diseases classified elsewhere; K21.9 Gastro-esophageal reflux disease without esophagitis; E55.9 Vitamin D deficiency, unspecified; M19.90 Unspecified osteoarthritis, unspecified site; M25.512 Pain in left shoulder; R77.9 Abnormality of plasma protein, unspecified; E83.89 Other disorders of mineral metabolism; Z79.899 Other long term (current) drug therapy; Z79.02 Long term (current) use of antithrombotics/antiplatelets; Z79.4 Long term (current) use of insulin; Z79.82 Long term (current) use of aspirin; Z79.890 Hormone replacement therapy; Z86.14 Personal history of Methicillin resistant Staphylococcus aureus infection; Z91.81 History of falling; Z95.5 Presence of coronary angioplasty implant and graft; Z96.41 Presence of insulin pump (external) (internal); Z98.84 Bariatric surgery status; Z99.2 Dependence on renal dialysis; Z90.710 Acquired absence of both cervix and uterus; Z90.49 Acquired absence of other specified parts of digestive tract; Z98.42 Cataract extraction status, left eye; Z98.41 Cataract extraction status, right eye; Z96.1 Presence of intraocular lens; Z68.39 Body mass index [BMI] 39.0-39.9, adult; Z88.0 Allergy status to penicillin; Z91.041 Radiographic dye allergy status; Z88.8 Allergy status to other drugs, medicaments and biological substances; Z91.048 Other nonmedicinal substance allergy status; Z86.74 Personal history of sudden cardiac arrest; Z82.49 Family history of ischemic heart disease and other diseases of the circulatory system; Z83.3 Family history of diabetes mellitus; Z84.1 Family history of disorders of kidney and ureter
CPT/HCPCS: 36415; 71046; 78582; 80048; 80053; 80202; 82550; 82553; 82728; 83036; 83540; 83550; 83735; 83880; 84100; 84484; 85025; 85027; 85610; 85730; 87070; 87077; 87186; 87205; 90935; 93005; 93306; 96365; 96366; 99285

== ENCOUNTER 2018-02-01 10:22 | Emergency (ER) | payer MEDICARE, BC ==
[2018-02-01] MEDS ORDERED: HYDROmorphone 1 MG/ML 1 ML SYRINGE IM STA (10:46)
--- NOTE | 2018-02-01 11:03 | ED ---
General Adult HPI - General Chief complaint: Extremity Injury, Lower Stated complaint: Fall Time Seen by Provider: 02/01/18 10:26 Source: patient, EMS, RN notes reviewed Mode of arrival: EMS Limitations: no limitations - History of Present Illness Initial comments: 61-year-old female presents emergency Department chief complaint trip and fall. Patient states that she was walking out towards her living room kitchen area and states that her left leg Gave out states that she fell over onto the armrest of the chair, her walker. Patient complains of left sided rib pain, left hip pain and left lower leg pain. She denies any head injury no loss conscious. Patient states it hurts when she takes deep breath which cause her to feel short of breath she denies any nausea vomiting diarrhea constipation. Denies any back pain. Patient states he has an abrasion to her right elbow and is up-to-date on her tetanus. She has full range of motion right elbow with no pain. - Related Data Home Medications Medication Instructions Recorded Confirmed Famotidine [Pepcid] 20 mg PO DAILY@0800 04/29/14 01/20/18 Aspirin EC [Ecotrin Low Dose] 81 mg PO QAM 01/01/16 01/20/18 Escitalopram [Lexapro] 20 mg PO DAILY@0800 01/01/16 01/20/18 busPIRone HCL 15 mg PO BID@0800,2100 01/01/16 01/20/18 Atorvastatin [Lipitor] 80 mg PO HS@2100 12/27/16 01/20/18 amLODIPine [Norvasc] 10 mg PO DAILY@0900 12/27/16 01/20/18 Clopidogrel [Plavix] 75 mg PO Q48H 03/21/17 01/20/18 Isosorbide Mononitrate ER [Imdur] 30 mg PO DAILY@0800 03/21/17 01/20/18 lamoTRIgine [LaMICtal] 100 mg PO DAILY@0800 07/01/17 01/20/18 lamoTRIgine [LaMICtal] 150 mg PO HS@2100 07/01/17 01/20/18 Insulin Aspart (For Pump) [NovoLOG 0.01 unit SQ-PUMP CONTINUOUS 09/22/17 (For Pump)] Levothyroxine Sodium [Synthroid] 25 mcg PO DAILY@0600 09/22/17 01/20/18 Levothyroxine Sodium [Synthroid] 200 mcg PO DAILY@0600 09/22/17 01/20/18 Folic Acid-Vit B Complex-Vit C 1 cap PO AC-TID 09/23/17 01/20/18 [Nephrocaps] Bisacodyl [Dulcolax] 10 mg RECTAL DAILY@0600 PRN 10/13/17 01/20/18 Furosemide [Lasix] 80 mg PO BID@0600,1400 10/13/17 01/20/18 LORazepam [Ativan] 0.5 mg PO BID@0800,2100 10/13/17 01/20/18 Ondansetron HCl [Zofran] 4 mg PO Q8H PRN 10/13/17 01/20/18 HYDROcodone/APAP 10-325MG [[place] 1 tab PO Q4-6H PRN 11/26/17 01/20/18 10-325] Ibuprofen [Motrin] 800 mg PO Q4-6H PRN 11/26/17 01/20/18 Previous Rx's Medication Instructions Recorded Calcium Acetate [PhosLo] 667 mg PO TID-W/MEALS cap 08/01/17 Ibuprofen [Motrin] 600 mg PO Q6HR PRN #20 day 11/24/17 Allergies Allergy/AdvReac Type Severity Reaction Status Date / Time adhesive Allergy Rash/Hives Verified 01/20/18 16:09 Iodinated Contrast- Oral and Allergy KIDNEY Verified 01/20/18 16:09 IV Dye FAILURE metformin Allergy SUGAR Verified 01/20/18 16:09 LEVEL INCREASE Penicillins Allergy Rash/Hives Verified 01/20/18 16:09 Review of Systems ROS Statement: Those systems with pertinent positive or pertinent negative responses have been documented in the HPI. ROS Other: All systems not noted in ROS Statement are negative. Past Medical History Past Medical History: Coronary Artery Disease (CAD), Diabetes Mellitus, Dialysis , Hyperlipidemia, Hypertension, Myocardial Infarction (DC), Osteoarthritis (OA) , Thyroid Disorder Additional Past Medical History / Comment(s): per past medical charting pt's stated "pt has had 17 mi's". ischemic cardiomyopathy. DC in 2005 and September 2013, 12/29/15 STRESS WNL, Hepatitis A, ALLERGIC rhinitis,DC,ESRD/DIALYSIS- ON -W-F, CARDIO-PULMONARY ARREST 07/05/14 and pt stated she has had short term memory problems since, hypertensive nephrosclerosis, Hepatitis A,Vitamin D deficiency, constipation.dm- uses an insulin pump.HX OF FALLS, hx of a cat bit Last Myocardial Infarction Date:: 09/2013 History of Any Multi-Drug Resistant Organisms: MRSA Date of last positivie culture/infection: 09/27/17 MDRO Source:: BREAST Past Surgical History: Adenoidectomy, Appendectomy, Cholecystectomy, Heart Catheterization With Stent, Hysterectomy, Tonsillectomy Additional Past Surgical History / Comment(s): mary cataracts, LAP-BAND 2004, Laparoscopic cholecystectomy, FIBULA FX has metal pins in place,Left shoulder surgery, Hemodialysis Cataract bilateral with IOL, fistula and sx to" reroute it ",gets dialysis fri-fri-fri. has insulin pump. no bp on left Past Anesthesia/Blood Transfusion Reactions: Motion Sickness, Postoperative Nausea & Vomiting (PONV) Additional Past Anesthesia/Blood Transfusion Reaction / Comment(s): blood transfusion-pt stated they gave her medication for a reaction but does'nt rememebr what the reaction was Date of Last Stent Placement:: 2014 Past Psychological History: Anxiety, Bipolar, Depression Smoking Status: Never smoker Past Alcohol Use History: None Reported Past Drug Use History: None Reported - Past Family History Mother Family Medical History: Congestive Heart Failure (CHF), Diabetes Mellitus, Hypertension Father History Unknown: Yes Family Medical History: Diabetes Mellitus Brother(s) Family Medical History: Diabetes Mellitus, Hyperlipidemia Additional Family Medical History / Comment(s): Hypertension chronic kidney disease General Exam Limitations: no limitations General appearance: alert, in no apparent distress Head exam: Present: atraumatic, normocephalic, normal inspection Eye exam: Present: normal appearance, PERRL, EOMI. Absent: scleral icterus, conjunctival injection, periorbital swelling Neck exam: Present: normal inspection, full ROM. Absent: tenderness, meningismus, lymphadenopathy Respiratory exam: Present: normal lung sounds bilaterally, chest wall tenderness (Left lower lateral posterior rib). Absent: respiratory distress, wheezes, rales, rhonchi, stridor Cardiovascular Exam: Present: regular rate, normal rhythm, normal heart sounds. Absent: systolic murmur, diastolic murmur, rubs, gallop, clicks GI/Abdominal exam: Present: soft, normal bowel sounds. Absent: distended, tenderness, guarding, rebound, rigid Extremities exam: Present: other (Tenderness to the left lower leg, mild swelling neurovascular intact, tenderness to left hip pain with range of motion. , Abrasion noted to the right elbow with full range of motion and nontender) Back exam: Present: full ROM. Absent: tenderness Neurological exam: Present: alert, oriented X3, CN II-XII intact, reflexes normal. Absent: motor sensory deficit Skin exam: Present: warm, dry, intact, normal color. Absent: rash Course Vital Signs 02/01/18 10:31 Temperature 97.6 F Pulse Rate 56 L Respiratory 20 Rate Blood Pressure 119/45 O2 Sat by Pulse 100 Oximetry Medical Decision Making - Medical Decision Making 62-year-old female presents emergency Department chief complaint of trip and fall. Patient x-rays of her ribs, left hip and left lower leg with no acute fracture as read by radiologist. Patient's vitals are stable. Patient's pain is improved states is still mild. She does admit that she has chronic pain and takes [place] for. Patient will continue this for discuss close follow-up and return parameters. Disposition Clinical Impression: Contusion of rib on left side, Fall, Left leg pain, Abrasion of arm, right Disposition: HOME SELF-CARE Condition: Stable Instructions: Rib Contusion (ED) Additional Instructions: Please return to the Emergency Department if symptoms worsen or any other concerns. You did receive Percocet in the emergency department. Continue pain medications as directed. Is patient prescribed a controlled substance at d/c from ED?: No Referrals: Kimberli Gar MD [Primary Care Provider] - 1-2 days
--- NOTE | 2018-02-01 11:29 | XR ---
EXAMINATION TYPE: XR Hip LT and AP Pelvis , 3 VIEWS DATE OF EXAM ORDERED: 02/01/2018 HISTORY: Pain. COMPARISON: Previous study dated 07/01/2017. FINDINGS: No acute fracture or dislocation is seen. There is mild degenerative change within the hip joints. IMPRESSION: NO ACUTE OSSEOUS LESION.
--- NOTE | 2018-02-01 12:00 | XR ---
EXAMINATION TYPE: XR ribs LT w pa chest xray , 5 VIEWS DATE OF EXAM ORDERED: 02/01/2018 HISTORY: Pain. COMPARISON: Previous study dated 10/13/2017. FINDINGS: The heart is enlarged. There is vascular congestion and mild interstitial change. There is chronic, appearing elevation of the right hemidiaphragm. Pleural spaces are clear. There is no pneum othorax. There is a lap band in place. No displaced rib fracture is identified. IMPRESSION: 1. MILD CHANGES OF CONGESTIVE HEART FAILURE. 2. NO DISPLACED RIB FRACTURE IDENTIFIED. 3. STATUS POST LAP BAND.
--- NOTE | 2018-02-01 12:01 | XR ---
EXAMINATION TYPE: XR tibia fibula LT , 3 VIEWS DATE OF EXAM ORDERED: 02/01/2018 HISTORY: Pain. COMPARISON: None. FINDINGS: No fracture, dislocation or other acute osseous lesion is seen. There are mild degenerativ e changes within the knee. IMPRESSION: NO ACUTE OSSEOUS LESION.
[2018-02-01] MEDS ORDERED: oxyCODONE-APAP 7.5-325MG 1 EACH TAB PO STA (12:14)
[2018-02-01 12:19] VITALS: RESP 18
[2018-02-01 12:38] VITALS: BP 131/50; PULSE 63; TEMP 98.4
== END 2018-02-01 12:38 | disposition home or self-care (01) ==
LOC: EC 10:22
DX: S20.212A Contusion of left front wall of thorax, initial encounter (principal); S50.311A Abrasion of right elbow, initial encounter; M79.605 Pain in left leg; F41.9 Anxiety disorder, unspecified; F31.9 Bipolar disorder, unspecified; I25.10 Atherosclerotic heart disease of native coronary artery without angina pectoris; I13.2 Hypertensive heart and chronic kidney disease with heart failure and with stage 5 chronic kidney disease, or end stage renal disease; E11.22 Type 2 diabetes mellitus with diabetic chronic kidney disease; N18.6 End stage renal disease; I50.9 Heart failure, unspecified; I25.2 Old myocardial infarction; I25.5 Ischemic cardiomyopathy; E78.5 Hyperlipidemia, unspecified; Z79.82 Long term (current) use of aspirin; Z79.02 Long term (current) use of antithrombotics/antiplatelets; Z79.4 Long term (current) use of insulin; Z79.899 Other long term (current) drug therapy; Z88.0 Allergy status to penicillin; Z88.5 Allergy status to narcotic agent; Z91.048 Other nonmedicinal substance allergy status; Z91.041 Radiographic dye allergy status; Z95.5 Presence of coronary angioplasty implant and graft; Z98.84 Bariatric surgery status; Z99.2 Dependence on renal dialysis; W01.0XXA Fall on same level from slipping, tripping and stumbling without subsequent striking against object, initial encounter; Y93.01 Activity, walking, marching and hiking; Y92.000 Kitchen of unspecified non-institutional (private) residence as the place of occurrence of the external cause
CPT/HCPCS: 71101; 73502; 73590; 99283; 96372; J1170

== ENCOUNTER 2018-03-30 10:01 | Emergency (ER) | payer MEDICARE, BC, OTHER ==
--- NOTE | 2018-03-30 10:45 | ED ---
Fall HPI - General Chief Complaint: Fall Stated Complaint: Fall Time Seen by Provider: 03/30/18 10:33 Source: patient, EMS Mode of arrival: EMS - History of Present Illness Initial Comments: 62-year-old female past medical history of type 2 diabetes, hypertension, thyroid disorder, kidney failure on dialysis (last visit Friday, has appointment today) presenting today for chief complaint of fall. Patient states just prior to arrival she was attempting to get her coat out of her electric wheelchair, when her right foot hit the wheel of the wheelchair causing her to fall forward onto her knees. She states she then fell back onto her back. Pt think she may have hit her head and is on anticoagulants. Patient denies loss of consciousness. Patient states she immediately noticed bilateral knee pain, pain along the entire length of her spine and neck, as well as right heel pain. Patient is able to fully range at the upper extremities, but states she is sore all over. Patient denies headache, visual changes, nausea, vomiting , abdominal pain or abdominal injury. Patient states she does have some rug burn on her left forearm. Patient states that her tetanus vaccination is up-to- date. Remainder of ROS was negative. Patient denies any chest pain, dizziness , shortness of breath, dyspnea on exertion prior to falling. pt states the fall was due to trip. Upon arrival, pt VS within acceptable limits, elevated BP noted. Pt has known hypertension. - Related Data Home Medications Medication Instructions Recorded Confirmed RX: Famotidine [Pepcid] 20 mg PO DAILY@0800 04/29/14 03/30/18 RX: Aspirin EC [Ecotrin Low Dose] 81 mg PO QAM 01/01/16 03/30/18 RX: Escitalopram [Lexapro] 20 mg PO DAILY@0800 01/01/16 03/30/18 RX: busPIRone HCL 15 mg PO BID@0800,2100 01/01/16 03/30/18 RX: Atorvastatin [Lipitor] 80 mg PO HS@209912/27/16 03/30/18 RX: amLODIPine [Norvasc] 10 mg PO DAILY@0900 12/27/16 03/30/18 RX: Clopidogrel [Plavix] 75 mg PO DAILY 03/21/17 03/30/18 RX: Isosorbide Mononitrate ER 30 mg PO DAILY@0800 03/21/17 03/30/18 [Imdur] RX: lamoTRIgine [LaMICtal] 100 mg PO DAILY@0800 07/01/17 03/30/18 RX: lamoTRIgine [LaMICtal] 150 mg PO HS@2100 07/01/17 03/30/18 RX: Insulin Aspart (For Pump) 0.01 unit SQ-PUMP CONTINUOUS 09/22/17 03/30/18 [NovoLOG (For Pump)] RX: Levothyroxine Sodium 200 mcg PO DAILY@0600 09/22/17 03/30/18 [Synthroid] RX: Furosemide [Lasix] 80 mg PO BID@0600,1400 10/13/17 03/30/18 RX: LORazepam [Ativan] 0.5 mg PO BID@0800,2100 10/13/17 03/30/18 Previous Rx's Medication Instructions Recorded Orphenadrine [Norflex] 100 mg PO Q12H 3 Days #6 tablet.er 03/30/18 Allergies Allergy/AdvReac Type Severity Reaction Status Date / Time adhesive Allergy Rash/Hives Verified 03/30/18 10:25 Iodinated Contrast- Oral and Allergy KIDNEY Verified 03/30/18 10:25 IV Dye FAILURE metformin Allergy SUGAR Verified 03/30/18 10:25 LEVEL INCREASE Penicillins Allergy Rash/Hives Verified 03/30/18 10:25 Review of Systems ROS Statement: Those systems with pertinent positive or pertinent negative responses have been documented in the HPI. ROS Other: All systems not noted in ROS Statement are negative. Past Medical History Past Medical History: Coronary Artery Disease (CAD), Diabetes Mellitus, Dialysis , Hyperlipidemia, Hypertension, Myocardial Infarction ([place]), Osteoarthritis (OA) , Thyroid Disorder Additional Past Medical History / Comment(s): per past medical charting pt's stated "pt has had 17 mi's". ischemic cardiomyopathy. [place] in 2005 and September 2013, 12/29/15 STRESS WNL, Hepatitis A, ALLERGIC rhinitis,[place],ESRD/DIALYSIS- ON , CARDIO-PULMONARY ARREST 07/05/14 and pt stated she has had short term memory problems since, hypertensive nephrosclerosis, Hepatitis A,Vitamin D deficiency, constipation.dm- uses an insulin pump.HX OF FALLS, hx of a cat bit Last Myocardial Infarction Date:: 09/2013 History of Any Multi-Drug Resistant Organisms: MRSA Date of last positivie culture/infection: 09/27/17 MDRO Source:: BREAST Past Surgical History: Adenoidectomy, Appendectomy, Cholecystectomy, Heart Catheterization With Stent, Hysterectomy, Tonsillectomy Additional Past Surgical History / Comment(s): mary cataracts, LAP-BAND 2004, Laparoscopic cholecystectomy, FIBULA FX has metal pins in place,Left shoulder surgery, Hemodialysis Cataract bilateral with IOL, fistula and sx to" reroute it ",gets dialysis fri-fri-fri. has insulin pump. no bp on left Past Anesthesia/Blood Transfusion Reactions: Motion Sickness, Postoperative Nausea & Vomiting (PONV) Additional Past Anesthesia/Blood Transfusion Reaction / Comment(s): blood transfusion-pt stated they gave her medication for a reaction but does'nt rememebr what the reaction was Date of Last Stent Placement:: 2014 Past Psychological History: Anxiety, Bipolar, Depression Smoking Status: Never smoker Past Alcohol Use History: None Reported Past Drug Use History: None Reported - Past Family History Mother Family Medical History: Congestive Heart Failure (CHF), Diabetes Mellitus, Hypertension Father History Unknown: Yes Family Medical History: Diabetes Mellitus Brother(s) Family Medical History: Diabetes Mellitus, Hyperlipidemia Additional Family Medical History / Comment(s): Hypertension chronic kidney disease General Exam - General Exam Comments Initial Comments: General: The patient is awake and alert, in no distress, and does not appear acutely ill. Eye: +3 mm pupils are equal, round and reactive to light, extra-ocular movements are intact. No nystagmus. There is normal conjunctiva bilaterally. No signs of icterus. Ears, nose, mouth and throat: There are moist mucous membranes and no oral lesions. Neck: The neck is supple, there is no tenderness or JVD. Paravertebral tenderness of the c-spine. No midline tenderness to palpation. Palpable muscle tension of the neck and paravertebral muscles of the spine. Cardiovascular: There is a regular rate and rhythm. No murmur, rub or gallop is appreciated. Respiratory: Lungs are clear to auscultation, respirations are non-labored, breath sounds are equal. No wheezes, stridor, rales, or rhonchi. Gastrointestinal: Soft, non-distended, non-tender abdomen without masses or organomegaly noted. There is no rebound or guarding present. Bowel sounds are unremarkable. Musculoskeletal: Paravertebral tenderness paravertebral midline the entire length of spine. Pt able to range at the UE and LE Strength 5/5. Sensation intact of the UE and LE equally in comparison b/l. No saddle paresthesias or numbness. DP and radial pulses equal bilaterally 2+. Coolness or pallor to extremity. No noted soft tissue swelling of the knees b/l. Neurological: A&O x 3. CN II-XII intact, There are no obvious motor or sensory deficits. Coordination appears grossly intact. Speech is normal. Skin: Skin is warm and dry and no rashes. Small superficial abrasion to the left forearm. Psychiatric: Cooperative, appropriate mood & affect, normal judgment. Limitations: no limitations Course Vital Signs 03/30/18 03/30/18 10:22 15:43 Temperature 98 F 96.8 F L Pulse Rate 68 82 Respiratory 18 19 Rate Blood Pressure 146/62 139/81 O2 Sat by Pulse 96 98 Oximetry - Reevaluation(s) Reevaluation #1: Glucose 55, given pudding/juice. Pt will discontinue pump until increase in blood glucose 03/30/18 14:44 Medical Decision Making - Medical Decision Making Imaging studies negative for acute process. Including CAT scan of the brain without contrast. I did discuss all incidental findings with patient including lung nodule. Patient is neurovascularly intact. Patient is overall appearing well. Patient was given pain medication the ER as well as a muscle relaxant upon discharge for muscle tension. Pt states she will make up dialysis tmrw. Pt discharged with primary care f/u in the next 1-2 days. Her parameters were discussed at length the patient who verbalizes understanding. Case discussed with Dr. Altamirano prior to discharge who agreed with impression and plan. Pt was evaluated face to face by Dr. Altamirano - Lab Data Lab Results 03/30/18 Range/Units 14:29 POC Glucose (mg/dL) 56 L (75-99) mg/dL POC Glu [employer] Judy Arguelles Disposition Clinical Impression: Fall, Lung nodule < 6cm on CT, Back strain, Neck strain Disposition: HOME SELF-CARE Condition: Good Instructions: Fall Prevention for Older Adults (ED), Low Back Strain (ED), Pulmonary Nodules (ED) Additional Instructions: Please use medication as discussed. Please follow-up with family doctor in the next 2 days. Please have repeat chest CT in next 3-6months. Please return to emergency room if the symptoms increase or worsen or for any other concerns, as discussed. Please make up dialysis tomorrow Prescriptions: Orphenadrine [Norflex] 100 mg PO Q12H 3 Days #6 tablet.er Is patient prescribed a controlled substance at d/c from ED?: No Referrals: Kimberli Gar MD [Primary Care Provider] - 1-2 days Time of Disposition: 14:28
[2018-03-30] MEDS ORDERED: MORPHINE SULFATE 4 MG/ML SYRINGE IM STA (10:49)
--- NOTE | 2018-03-30 12:32 | CT ---
EXAMINATION TYPE: CT thor lumbar spine wo con DATE OF EXAM: 03/30/2018 COMPARISON: Lumbar spine 12/26/2016 HISTORY: 62-year-old female back pain post fall TECHNIQUE: Contiguous axial scanning of the thoracic and lumbar spine without IV contrast. Coronal an d sagittal reconstructions performed. CT DLP: 1891.7 mGycm Automated exposure control for dose reduction was used. FINDINGS: The heart is borderline enlarged. Extensive coronary vessel calcifications are present. 4 mm subpleural right middle lobe pulmonary nodule, axial image 51. Small hiatal hernia with a lap ba nd in place. Spleen upper limits of normal in size at 13.5 cm. Thoracic spine: Accentuated lower thoracic kyphosis. Overall alignment is maintained and vertebral body heights are p reserved. Bridging anterior endplate spondylosis lower thoracic spine compatible with DISH. Scattered facet arthropathy with variable mild neuroforaminal narrowing, moderate on both sides at T8-T9 No prevertebral or paravertebral soft tissue abnormality seen. No acute fracture of the thoracic spine mixed sclerotic and lucent lesion measuring 1.6 cm in the T12 vertebral body remains unchanged from 12/26/2016 suggesting a benign etiology. Lumbar spine: Vertebral body heights are preserved. Grade 1 anterolisthesis at L4-L5 redemonstrated secondary to hypertrophic facet arthropathy. Degenera tive thinning of the interspinous ligaments. No acute fracture of the lumbar spine is seen. Changes result in moderate left neuroforaminal stenosis at L5-S1 and mild at additional levels. Combination of anterolisthesis with diffuse disc bulge and hypertrophic facet arthropathy may contrib wilfredo to severe spinal canal stenosis at L4-L5. IMPRESSION: 1. THORACIC SPINE: NO VERTEBRAL COMPRESSION COLLAPSE OR MALALIGNMENT. ACCENTUATED LOWER THORACIC KYPH OSIS WITH DISH IN THE LOWER THORACIC SPINE. SCATTERED FACET ARTHROPATHY CAUSING MODERATE BILATERAL NE UROFORAMINAL STENOSES AT T8-T9. 2. LUMBAR SPINE: NO VERTEBRAL COMPRESSION COLLAPSE. STABLE DEGENERATIVE GRADE 1 ANTEROLISTHESIS AT L4 -L5. ALONG WITH DIFFUSE DISC BULGE AND HYPERTROPHIC FACET ARTHROPATHY, THERE MAY BE A SEVERE SPINAL C ANAL STENOSIS HERE. BAASTRUP'S DISEASE. 3. 4 MM SUBPLEURAL RIGHT MIDDLE LOBE PULMONARY NODULE IS NONSPECIFIC. 6 MONTH FOLLOW-UP CONTRAST ENHA NCED CT CHEST CAN REASSESS.
--- NOTE | 2018-03-30 12:38 | CT ---
EXAMINATION TYPE: CT brain cspine wo con DATE OF EXAM: 03/30/2018 COMPARISON: 07/29/2017, 07/01/2017 HISTORY: Fall today. Patient takes blood thinners. CT DLP: 1432.7 mGycm Automated exposure control for dose reduction was used. TECHNIQUE: CT scan of the head and cervical spine are performed without contrast. FINDINGS: Encephalomalacia in the left temporal lobe is identified, unchanged in the prior exam of 12/26/2016. No suspicious extra-axial fluid collection is seen. There is no acute intracranial hemorr michelle, mass effect, or midline shift identified. The ventricles and sulci are symmetrically prominent compatible with age-related atrophy. Scattered areas of hypoattenuation within the subcortical white matter are likely on the basis of chronic microangiopathy. The globes are intact and the visualized s inuses are clear. Cervical spine is visualized in its entirety from C1 through upper thoracic levels and demonstrates s atisfactory alignment without evidence of acute fracture or dislocation. Prevertebral soft tissue ap pears within normal limits. The C1-C2 articulation is unremarkable. Evaluation for disc herniation is limited on CT. Multilevel mild degenerative disc disease is seen of the cervical spine displayed i s minimal uncovertebral hypertrophy and multilevel facet arthropathy. Apical pleural thickening and s ubpleural nodularity noted. Extensive atherosclerotic plaque of the carotid arteries. IMPRESSION: 1. There is no acute fracture or dislocation evident in the cervical spine. Multilevel degenerative d isc disease and facet arthropathy. Recommend follow-up MRI. 2. No acute intracranial hemorrhage, mass effect, or midline shift is seen. There is a degenerative a nd nonspecific white matter changes most typical remote ischemia. 3. Apical pleural thickening and subpleural nodularity. 4. Extensive atherosclerotic plaque carotid arteries.
[2018-03-30] MEDS ORDERED: CYCLOBENZAPRINE 5 MG TAB PO STA (13:06)
[2018-03-30] MEDS ORDERED: MORPHINE SULFATE 2 MG/ML SYRINGE IVP STA (14:01)
--- NOTE | 2018-03-30 14:06 | XR ---
EXAMINATION TYPE: XR ankle complete bilateral DATE OF EXAM: 03/30/2018 Comparison: 07/14/2016 Clinical History: 62-year-old female Pain Findings: Right: Prior transsyndesmotic screw fixation right ankle. There is prominent periscrew lucency measuring up to 1.8 mm, unchanged from 07/14/2016. Diffuse osteopenia. Ankle mortise remains congruent. No acute fr acture, subluxation, or dislocation seen. Subtalar joint is aligned. Vascular calcifications suggest underlying diabetes and chronic kidney disease. Left: Ankle mortise is congruent with preservation of the distal tibiofibular overlap. Talar dome is intact . No acute fracture, subluxation, or dislocation seen. Vascular calcifications suggest underlying tanya betes and chronic kidney disease. Impression: 1. Right ankle: Prior transsyndesmotic screw fixation with stable appearance from 07/14/2016. Diffuse osteopenia. No acute osseous abnormality seen. 2. Left ankle: Diffuse osteopenia. No acute osseous abnormality seen.
--- NOTE | 2018-03-30 14:08 | XR ---
EXAMINATION TYPE: XR foot complete bilateral, 3 views each side DATE OF EXAM: 03/30/2018 COMPARISON: NONE HISTORY: 62-year-old female with pain after fall FINDINGS: Left: Diffuse osteopenia. Incidental bipartite tibial sesamoid. Small posterior and plantar calcaneal spurs . No acute fracture, subluxation, or dislocation. Right: Diffuse osteopenia. Small posterior and plantar calcaneal spurs. Bipartite tibial sesamoid. Small typ e I accessory navicular. No acute fracture, subluxation, dislocation seen. IMPRESSION: Bilateral feet with marked osteopenia limiting assessment. No acute osseous abnormality identified.
--- NOTE | 2018-03-30 14:09 | XR ---
EXAMINATION TYPE: XR Hip Bilateral and AP pelvis DATE OF EXAM: 03/30/2018 COMPARISON: 02/01/2018 HISTORY: Pelvic pain after fall TECHNIQUE: A single AP view of the pelvis is obtained. Two views of the bilateral hips were obtained. FINDINGS: There is no acute fracture/dislocation evident in the pelvis. The hip and sacroiliac join ts demonstrate mild degenerative change. The overlying soft tissue appears unremarkable. Two views of the bilateral hips show no fracture or dislocation. No focal lytic or sclerotic lesion seen in either proximal femur. The overlying soft tissue is unremarkable. Atherosclerosis is seen o f the common iliac arteries and their branches. IMPRESSION: There is no acute fracture or dislocation in the pelvis or either hip.
--- NOTE | 2018-03-30 14:10 | XR ---
EXAMINATION TYPE: XR knee complete bilateral DATE OF EXAM: 03/30/2018 COMPARISON: NONE HISTORY: Pain TECHNIQUE: 3 views are submitted of each knee. FINDINGS: Diffuse osteopenia with narrowing of the medial compartment of the knee joint and patellofemoral join t bilaterally. Extensive vascular calcification seen. No erosive changes. Hypertrophic change of the patella noted. Chronic appearing deformity of the proximal fibula on the right suggestive of previous fracture.. Osseous structures are intact. No acute fracture seen. IMPRESSION: 1. No acute fracture or dislocation. 2. Diffuse osteopenia and osteoarthritis. 3. Remote fracture proximal right fibula
[2018-03-30] MEDS ORDERED: MORPHINE SULFATE 2 MG/ML SYRINGE IM STA (14:11)
[2018-03-30 14:31] LABS: Glucose,Whole Blood 56 mg/dL (75-99)
[2018-03-30 15:44] VITALS: BP 139/81; PULSE 82; RESP 19; TEMP 96.8
== END 2018-03-30 15:44 | disposition home or self-care (01) ==
LOC: EC 10:01
DX: S16.1XXA Strain of muscle, fascia and tendon at neck level, initial encounter (principal); S50.812A Abrasion of left forearm, initial encounter; R91.1 Solitary pulmonary nodule; M79.671 Pain in right foot; M25.562 Pain in left knee; M25.561 Pain in right knee; E07.9 Disorder of thyroid, unspecified; E78.5 Hyperlipidemia, unspecified; F31.9 Bipolar disorder, unspecified; F41.9 Anxiety disorder, unspecified; I13.11 Hypertensive heart and chronic kidney disease without heart failure, with stage 5 chronic kidney disease, or end stage renal disease; E11.22 Type 2 diabetes mellitus with diabetic chronic kidney disease; N18.6 End stage renal disease; I25.10 Atherosclerotic heart disease of native coronary artery without angina pectoris; I25.2 Old myocardial infarction; M19.90 Unspecified osteoarthritis, unspecified site; Z79.02 Long term (current) use of antithrombotics/antiplatelets; Z79.4 Long term (current) use of insulin; Z79.82 Long term (current) use of aspirin; Z88.0 Allergy status to penicillin; Z91.041 Radiographic dye allergy status; Z91.048 Other nonmedicinal substance allergy status; Z88.8 Allergy status to other drugs, medicaments and biological substances; Z99.2 Dependence on renal dialysis; Z95.5 Presence of coronary angioplasty implant and graft; V00.811A Fall from moving wheelchair (powered), initial encounter; Y93.89 Activity, other specified
CPT/HCPCS: 36415; 73562; 73610; 73630; 73521; 72128; 72125; 72131; 70450; 99284; 96372 ×2; J2270 ×2

== ENCOUNTER 2018-04-15 15:12 | Inpatient (IN) | payer MEDICARE, BC, OTHER ==
--- NOTE | 2018-04-15 15:25 | ED ---
General Adult HPI - General Chief complaint: Recheck/Abnormal Lab/Rx Stated complaint: Low heart rate Time Seen by Provider: 04/15/18 15:24 Source: EMS Mode of arrival: EMS Limitations: no limitations - History of Present Illness Initial comments: This is a 62-year-old female with a history of multiple medical problems including CAD, CHF, end-stage renal disease on dialysis who presents emergency department for dizziness. The patient states that she woke up this morning feeling very dizzy. She states that she believes that when she went to sleep the night prior she felt at her baseline. She has a difficult time describing the dizziness however states that it is constant. She states that it does seem to be made worse when she is moving her head or standing up. She describes it as a lightheaded sensation however also feels like it could be vertiginous in nature. She does admit to some increased lower extremity edema which she states is been going on for the last 3 weeks. She denies any chest pain or trouble breathing. No abdominal pain. No nausea, vomiting, or diarrhea. No dark or bloody stools. She denies any focal weakness in her arms or legs however feels generally fatigued. She was unable to stand up out of her wheelchair at home. The patient was recently admitted to the hospital for hyperkalemia. She states that there were no medication changes during that admission. She has had episodes of bradycardia in the past requiring admission. She states that her heart rate does tend to run low however does not tend to run in the 40s which is currently. EMS did check her sugar on scene and it was 180. She does have a history of hypoglycemia in the past as well. She did go to dialysis yesterday and today. She states that she became [place] dizzy after dialysis so she decided come emergency department. Denies any other acute complaints. - Related Data Home Medications Medication Instructions Recorded Confirmed Famotidine [Pepcid] 20 mg PO DAILY@0800 04/29/14 04/15/18 Aspirin EC [Ecotrin Low Dose] 81 mg PO QAM 01/01/16 04/15/18 Escitalopram [Lexapro] 20 mg PO DAILY@0800 01/01/16 04/15/18 busPIRone HCL 15 mg PO BID@0800,2100 01/01/16 04/15/18 Atorvastatin [Lipitor] 80 mg PO HS@2100 12/27/16 04/15/18 amLODIPine [Norvasc] 10 mg PO DAILY@0900 12/27/16 04/15/18 Clopidogrel [Plavix] 75 mg PO DAILY 03/21/17 04/15/18 Isosorbide Mononitrate ER [Imdur] 30 mg PO DAILY@0800 03/21/17 04/15/18 lamoTRIgine [LaMICtal] 100 mg PO DAILY@0800 07/01/17 04/15/18 lamoTRIgine [LaMICtal] 150 mg PO HS@2100 07/01/17 04/15/18 Insulin Aspart (For Pump) [NovoLOG 0.01 unit SQ-PUMP CONTINUOUS 09/22/17 (For Pump)] Levothyroxine Sodium [Synthroid] 200 mcg PO DAILY@0600 09/22/17 04/15/18 Furosemide [Lasix] 80 mg PO BID@0600,1400 10/13/17 04/15/18 LORazepam [Ativan] 0.5 mg PO BID@0800,2100 10/13/17 04/15/18 Orphenadrine [Norflex] 100 mg PO Q12H PRN 04/15/18 04/15/18 Allergies Allergy/AdvReac Type Severity Reaction Status Date / Time adhesive Allergy Rash/Hives Verified 04/15/18 16:44 Iodinated Contrast- Oral and Allergy KIDNEY Verified 04/15/18 16:44 IV Dye FAILURE metformin Allergy SUGAR Verified 04/15/18 16:44 LEVEL INCREASE Penicillins Allergy Rash/Hives Verified 04/15/18 16:44 Review of Systems ROS Statement: Those systems with pertinent positive or pertinent negative responses have been documented in the HPI. ROS Other: All systems not noted in ROS Statement are negative. Past Medical History Past Medical History: Coronary Artery Disease (CAD), Diabetes Mellitus, Dialysis , Hyperlipidemia, Hypertension, Myocardial Infarction (NE), Osteoarthritis (OA) , Thyroid Disorder Additional Past Medical History / Comment(s): per past medical charting pt's stated "pt has had 17 mi's". ischemic cardiomyopathy. NE in 2005 and September 2013, 12/29/15 STRESS WNL, Hepatitis A, ALLERGIC rhinitis,NE,ESRD/DIALYSIS- ON --, CARDIO-PULMONARY ARREST 07/05/14 and pt stated she has had short term memory problems since, hypertensive nephrosclerosis, Hepatitis A,Vitamin D deficiency, constipation.dm- uses an insulin pump.HX OF FALLS, hx of a cat bit Last Myocardial Infarction Date:: 09/2013 History of Any Multi-Drug Resistant Organisms: MRSA Date of last positivie culture/infection: 09/27/17 MDRO Source:: BREAST Past Surgical History: Adenoidectomy, Appendectomy, Cholecystectomy, Heart Catheterization With Stent, Hysterectomy, Tonsillectomy Additional Past Surgical History / Comment(s): mary cataracts, LAP-BAND 2004, Laparoscopic cholecystectomy, FIBULA FX has metal pins in place,Left shoulder surgery, Hemodialysis Cataract bilateral with IOL, fistula and sx to" reroute it ",gets dialysis fri-fri-fri. has insulin pump. no bp on left Past Anesthesia/Blood Transfusion Reactions: Motion Sickness, Postoperative Nausea & Vomiting (PONV) Additional Past Anesthesia/Blood Transfusion Reaction / Comment(s): blood transfusion-pt stated they gave her medication for a reaction but does'nt rememebr what the reaction was Date of Last Stent Placement:: 2014 Past Psychological History: Anxiety, Bipolar, Depression Smoking Status: Never smoker Past Alcohol Use History: None Reported Past Drug Use History: None Reported - Past Family History Mother Family Medical History: Congestive Heart Failure (CHF), Diabetes Mellitus, Hypertension Father History Unknown: Yes Family Medical History: Diabetes Mellitus Brother(s) Family Medical History: Diabetes Mellitus, Hyperlipidemia Additional Family Medical History / Comment(s): Hypertension chronic kidney disease General Exam - General Exam Comments Initial Comments: Constitutional: Awake alert Appears comfortable Head: Normocephalic atraumatic Eyes: no conjunctival injection No scleral icterus EOMI, no nystagmus no conjunctival pallor Neck: No JVD Supple Heart: Bradycardia with regular rhythm normal S1-S2 no murmurs Lungs: Clear to auscultation bilaterally No wheezing No rales Abdomen: Soft nondistended nontender Extremities: Lower extremity edema DP pulses intact Radial pulses intact Neuro: A&Ox3, cranial nerves II through XII are grossly intact, 5 out of 5 strength in upper and lower extremities bilaterally, no ataxia with finger to nose and heel to molina testing No focal neurologic deficits Psych: Appropriate mood and affect Limitations: no limitations Course Vital Signs 04/15/18 04/15/18 04/15/18 15:16 15:30 16:00 Temperature 98.1 F Pulse Rate 47 L 48 L 46 L Respiratory 18 18 14 Rate Blood Pressure 147/57 147/57 143/56 O2 Sat by Pulse 100 100 99 Oximetry 04/15/18 16:30 Temperature Pulse Rate 48 L Respiratory 16 Rate Blood Pressure 128/42 O2 Sat by Pulse 99 Oximetry - Reevaluation(s) Reevaluation #1: 04/15/18 17:[address] Smith regarding the EKG and the patient's symptoms and he agreed with admission to [facility] for monitoring. He recommended checking a TSH EKG Findings - EKG Comments: EKG Findings:: EKG is showing what appears to be a junctional rhythm with a rate of 50. There is a bifascicular block that is unchanged from previous. There is no abnormal ST segment changes or T-wave inversions. QTC is 537. There is one PVC present. Medical Decision Making - Medical Decision Making Is a 62-year-old female who presents emergency department for dizziness and lightheadedness. She is found to be bradycardic in the 40s with a junctional rhythm which is abnormal for her. She does have a mild elevated troponin however she did not have any chest pain or shortness of breath. Lites her lites were unremarkable. I spoke with Dr. Biswas who recommended admission for monitoring. He will evaluate her in the morning. Dr. Akers accepted the admission and requested that nephrology be placed on consult. The patient was updated and agrees. - Lab Data Result diagrams: 04/15/18 15:47 04/15/18 15:47 Lab Results 04/15/18 04/15/18 04/15/18 Range/Units 15:47 15:47 15:47 WBC 5.9 (3.8-10.6) k/uL RBC 4.30 (3.80-5.40) m/uL Hgb 12.2 (11.4-16.0) gm/dL Hct 38.6 (34.0-46.0) % MCV 89.8 (80.0-100.0) fL MCH 28.4 (25.0-35.0) pg MCHC 31.6 (31.0-37.0) g/dL RDW 18.2 H (11.5-15.5) % Plt Count 256 (150-450) k/uL Neutrophils % 72 % Lymphocytes % 18 % Monocytes % 6 % Eosinophils % 3 % Basophils % 0 % Neutrophils # 4.2 (1.3-7.7) k/uL Lymphocytes # 1.1 (1.0-4.8) k/uL Monocytes # 0.4 (0-1.0) k/uL Eosinophils # 0.2 (0-0.7) k/uL Basophils # 0.0 (0-0.2) k/uL Manual Slide Review Performed Hypochromasia Slight Poikilocytosis (manual Present Anisocytosis Slight PT (9.0-12.0) sec INR (<1.2) APTT (22.0-30.0) sec Sodium 135 L (137-145) mmol/L Potassium 3.8 (3.5-5.1) mmol/L Chloride 95 L (98-107) mmol/L Carbon Dioxide 29 (22-30) mmol/L Anion Gap 11 mmol/L BUN 8 (7-17) mg/dL Creatinine 2.25 H (0.52-1.04) mg/dL Est GFR (CKD-EPI)AfAm 26 (>60 ml/min/1.73 sqM) Est GFR (CKD-EPI)NonAf 23 (>60 ml/min/1.73 sqM) Glucose 149 H (74-99) mg/dL Calcium 8.5 (8.4-10.2) mg/dL Magnesium 2.0 (1.6-2.3) mg/dL Total Bilirubin 1.0 (0.2-1.3) mg/dL AST 33 (14-36) U/L ALT 22 (9-52) U/L Alkaline Phosphatase 94 (38-126) U/L CK-MB (CK-2) (0.0-2.4) ng/mL Troponin I (0.000-0.034) ng/mL Total Protein 7.7 (6.3-8.2) g/dL Albumin 4.2 (3.5-5.0) g/dL Blood Type A Positive Blood Type Recheck No Antibody Screen NEGATIVE Spec Expiration Date 04/18/2018 - 234604/15/18 04/15/18 Range/Units 15:47 15:47 WBC (3.8-10.6) k/uL RBC (3.80-5.40) m/uL Hgb (11.4-16.0) gm/dL Hct (34.0-46.0) % MCV (80.0-100.0) fL MCH (25.0-35.0) pg MCHC (31.0-37.0) g/dL RDW (11.5-15.5) % Plt Count (150-450) k/uL Neutrophils % % Lymphocytes % % Monocytes % % Eosinophils % % Basophils % % Neutrophils # (1.3-7.7) k/uL Lymphocytes # (1.0-4.8) k/uL Monocytes # (0-1.0) k/uL Eosinophils # (0-0.7) k/uL Basophils # (0-0.2) k/uL Manual Slide Review Hypochromasia Poikilocytosis (manual Anisocytosis PT 10.2 (9.0-12.0) sec INR 0.9 (<1.2) APTT 28.8 (22.0-30.0) sec Sodium (137-145) mmol/L Potassium (3.5-5.1) mmol/L Chloride (98-107) mmol/L Carbon Dioxide (22-30) mmol/L Anion Gap mmol/L BUN (7-17) mg/dL Creatinine (0.52-1.04) mg/dL Est GFR (CKD-EPI)AfAm (>60 ml/min/1.73 sqM) Est GFR (CKD-EPI)NonAf (>60 ml/min/1.73 sqM) Glucose (74-99) mg/dL Calcium (8.4-10.2) mg/dL Magnesium (1.6-2.3) mg/dL Total Bilirubin (0.2-1.3) mg/dL AST (14-36) U/L ALT (9-52) U/L Alkaline Phosphatase (38-126) U/L CK-MB (CK-2) 1.4 (0.0-2.4) ng/mL Troponin I 0.059 H* (0.000-0.034) ng/mL Total Protein (6.3-8.2) g/dL Albumin (3.5-5.0) g/dL Blood Type Blood Type Recheck Antibody Screen Spec Expiration Date Disposition Clinical Impression: Symptomatic bradycardia, ESRD (end stage renal disease), Elevated troponin Disposition: ADMITTED IP TO THIS HOSP Condition: Stable Referrals: Kimberli Gar MD [Primary Care Provider] - 1-2 days Decision to Admit Reason: Admit from EC
[2018-04-15 16:18] LABS: Albumin 4.2 g/dL (3.5-5.0); Calcium 8.5 mg/dL (8.4-10.2); Potassium 3.8 mmol/L (3.5-5.1); Total Protein 7.7 g/dL (6.3-8.2)
[2018-04-15 16:23] LABS: Anisocytosis Slight; Basophils % (A) 0 %; Eosinophils # (A) 0.2 k/uL (0-0.7); Eosinophils % (A) 3 %; HCT 38.6 % (34.0-46.0); HGB 12.2 gm/dL (11.4-16.0); Hypochromasia Slight; Lymphocytes # (A) 1.1 k/uL (1.0-4.8); Lymphocytes % (A) 18 %; MCH 28.4 pg (25.0-35.0); MCHC 31.6 g/dL (31.0-37.0); MCV 89.8 fL (80.0-100.0); Mean Platelet Volume 7.2; Monocytes # (A) 0.4 k/uL (0-1.0); Monocytes % (A) 6 %; Neutrophils # (A) 4.2 k/uL (1.3-7.7); Neutrophils % (A) 72 %; Platelet Count 256 k/uL (150-450); RDW 18.2 % (11.5-15.5); WBC 5.9 k/uL (3.8-10.6)
[2018-04-15 16:25] LABS: INR 0.9 (<1.2); Partial Thromboplastin Time 28.8 sec (22.0-30.0); Prothrombin Time 10.2 sec (9.0-12.0)
[2018-04-15 16:34] LABS: Creatine Kinase MB 1.4 ng/mL (0.0-2.4)
--- NOTE | 2018-04-15 16:51 | XR ---
EXAMINATION TYPE: XR chest 2V DATE OF EXAM: 04/15/2018 COMPARISON: 09/22/2017 HISTORY: Syncope TECHNIQUE: Frontal and lateral views of the chest are obtained. FINDINGS: There is no heart failure. There is coarsening of interstitial markings. Heart is borderli ne enlarged. There is no pleural effusion. Bony thorax is intact. IMPRESSION: Coarse pulmonary interstitial density. No change compared to old exam. This could relate to pulmonary fibrosis. No gross heart failure.
[2018-04-15 16:56] LABS: Troponin I 0.059 ng/mL (0.000-0.034)
--- NOTE | 2018-04-15 16:58 | CT ---
EXAMINATION TYPE: CT brain wo con DATE OF EXAM: 04/15/2018 COMPARISON: 03/30/2018 HISTORY: Dizziness. CT DLP: 1050.4 mGycm Automated exposure control for dose reduction was used. FINDINGS: There is hypodensity in the anterior left temporal lobe consistent with old infarct and encephalomala nydia. There is no mass effect nor midline shift. There is no sign of intracranial hemorrhage. The calv arium is intact. There is mild cerebral atrophy. 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 NO ACUTE INTRACRANIAL ABNORMALITY. NO CHANGE.
[2018-04-15 17:07] LABS: Poikilocytosis (M) Present
[2018-04-15] MEDS ORDERED: NALOXONE 0.4 MG/ML 1 ML VIAL IV PRN (17:49)
[2018-04-15] MEDS ORDERED: CYCLOBENZAPRINE 10 MG TAB PO PRN (20:42)
[2018-04-15] MEDS ORDERED: Insulin Aspart (For Pump) 100 UNIT/ML VIAL SQ-PUMP SCH (20:45)
[2018-04-15 20:50] VITALS: BMI 35.6
[2018-04-15 23:42] LABS: T4, Free (Free Thyroxine) 2.73 ng/dL (0.78-2.19)
[2018-04-16] MEDS ORDERED: HYDROcodone/APAP 10-325MG 1 EACH TAB PO ONE (01:18)
[2018-04-16] MEDS: busPIRone HCl 5 MG TAB PO SCH ×3 (01:28→21:29)
[2018-04-16] MEDS: ATORVASTATIN 80 MG TAB PO SCH ×2 (01:28→21:29)
[2018-04-16] MEDS: lamoTRIgine 100 MG TAB PO SCH ×3 (01:29→21:28)
[2018-04-16] MEDS: SODIUM CHLORIDE 0.9% 1,000 ML IV SCH ×2 (04:50→14:49)
[2018-04-16] MEDS: FUROSEMIDE 80 MG TAB PO SCH ×2 (07:58→16:39)
[2018-04-16] MEDS: ASPIRIN 81 MG PO SCH (08:58)
[2018-04-16] MEDS: LEVOTHYROXINE 100 MCG TAB PO SCH (08:58)
[2018-04-16] MEDS: ISOSORBIDE MONONITRATE ER 30 MG TAB.ER.24H PO SCH (08:58)
[2018-04-16] MEDS: amLODIPine 10 MG TAB PO SCH (08:58)
[2018-04-16] MEDS: CLOPIDOGREL 75 MG TAB PO SCH (08:58)
[2018-04-16] MEDS: ESCITALOPRAM 20 MG TAB PO SCH (08:59)
[2018-04-16] MEDS: FAMOTIDINE 20 MG TAB PO SCH (08:59)
[2018-04-16] MEDS ORDERED: LORazepam 1 MG TAB PO STA (09:03)
[2018-04-16] MEDS: LORazepam 0.5 MG TAB PO SCH ×3 (09:08→21:30)
--- NOTE | 2018-04-16 10:03 | P.CRDCN ---
History of Present Illness Consult date: 04/16/18 Chief complaint: Dizziness and lightheadedness History of present illness: This is a pleasant 62-year-old female patient who follows with Dr. JAE Jc in the office as an outpatient with a past medical history significant for coronary artery disease and status post multiple vessel angioplasty, end stage renal disease on hemodialysis, diabetes, hypertension, and dyslipidemia, was brought from the dialysis center to the emergency room because of bradycardia. For the last 24-48 hours, she has been feeling very dizzy. She is unable to get out of the bed because of the dizziness. As a matter of fact few days ago she did have an episode of syncope. The patient does not recall the details because she lives alone. But because of the dizziness and lightheadedness she is unable to ambulate and using her walker and she has been in bed all the time. She denies having any symptoms of chest pain or chest discomfort and no shortness of breath. When the patient was having dialysis yesterday it was noticed by the end of dialysis that her heart rate has been in the 40s and because of that the patient was transferred to the emergency room. In the ER and during her stay, she has been in the 40s as well. The EKG to me showed what it seems to be junctional rhythm with heart rate in the 40s and bifascicular block with RBBB and left anterior fascicular block. The TSH was checked and came in to be low but the free T4 came in to be within normal limits. The computed tomography scan of the brain was performed and it showed old infarct but there is no acute abnormalities. The cardiac enzymes were checked and came in to be slightly abnormal but this is likely representing care renal dysfunction. Please note that the patient was not receiving any AV anibal uri agents at home. She is not on any beta uri, amiodarone, or digoxin. I diagnosed the patient with severe symptomatic bradycardia. The patient does need to have a permanent pacemaker implantation. I will obtain an echocardiogram to assess her LV function before that. Past Medical History Past Medical History: Coronary Artery Disease (CAD), Diabetes Mellitus, Dialysis , Hyperlipidemia, Hypertension, Myocardial Infarction (VT), Osteoarthritis (OA) , Thyroid Disorder Additional Past Medical History / Comment(s): per past medical charting pt's stated "pt has had 17 mi's". ischemic cardiomyopathy. [place] in 2005 and September 2013, 12/29/15 STRESS WNL, Hepatitis A, ALLERGIC rhinitis,[place],ESRD/DIALYSIS- ON M-W-F, CARDIO-PULMONARY ARREST 07/05/14 and pt stated she has had short term memory problems since, vertigohypertensive nephrosclerosis, Hepatitis A,Vitamin D deficiency, constipation.dm- uses an insulin pump.HX OF FALL[place], hx of a cat bit Last Myocardial Infarction Date:: 09/2013 History of Any Multi-Drug Resistant Organisms: MRSA Date of last positivie culture/infection: 09/27/17 MDRO Source:: rt breast Past Surgical History: Adenoidectomy, Appendectomy, Cholecystectomy, Heart Catheterization With Stent, Hysterectomy, Tonsillectomy Additional Past Surgical History / Comment(s): mary cataracts, LAP-BAND 2004, Laparoscopic cholecystectomy, FIBULA FX has metal pins in place,Left shoulder surgery, Hemodialysis Cataract bilateral with IOL, fistula and sx to" reroute it ",gets dialysis fri-fri-fri. has insulin pump. no bp on left, excisional debreidment rt lower ext. Past Anesthesia/Blood Transfusion Reactions: Motion Sickness, Postoperative Nausea & Vomiting (PONV) Additional Past Anesthesia/Blood Transfusion Reaction / Comment(s): blood transfusion-pt stated they gave her medication for a reaction but does'nt rememebr what the reaction was Date of Last Stent Placement:: 2014 Smoking Status: Never smoker - Past Family History Mother Family Medical History: Congestive Heart Failure (CHF), Diabetes Mellitus, Hypertension Father History Unknown: Yes Family Medical History: Diabetes Mellitus Brother(s) Family Medical History: Diabetes Mellitus, Hyperlipidemia Additional Family Medical History / Comment(s): Hypertension chronic kidney disease Medications and Allergies Home Medications Medication Instructions Recorded Confirmed Type Famotidine [Pepcid] 20 mg PO DAILY@0800 04/29/14 04/15/18 History Aspirin EC [Ecotrin Low Dose] 81 mg PO QAM 01/01/16 04/15/18 History Escitalopram [Lexapro] 20 mg PO DAILY@0800 01/01/16 04/15/18 History busPIRone HCL 15 mg PO BID@0800,2100 01/01/16 04/15/18 History Atorvastatin [Lipitor] 80 mg PO HS@2100 12/27/16 04/15/18 History amLODIPine [Norvasc] 10 mg PO DAILY@0900 12/27/16 04/15/18 History Clopidogrel [Plavix] 75 mg PO DAILY 03/21/17 04/15/18 History Isosorbide Mononitrate ER [Imdur] 30 mg PO DAILY@0800 03/21/17 04/15/18 History lamoTRIgine [LaMICtal] 100 mg PO DAILY@0800 07/01/17 04/15/18 History lamoTRIgine [LaMICtal] 150 mg PO HS@2100 07/01/17 04/15/18 History Insulin Aspart (For Pump) [NovoLOG 0.01 unit SQ-PUMP CONTINUOUS 09/22/17 History (For Pump)] Levothyroxine Sodium [Synthroid] 200 mcg PO DAILY@0600 09/22/17 04/15/18 History Furosemide [Lasix] 80 mg PO BID@0600,1400 10/13/17 04/15/18 History LORazepam [Ativan] 0.5 mg PO BID@0800,2100 10/13/17 04/15/18 History Orphenadrine [Norflex] 100 mg PO Q12H PRN 04/15/18 04/15/18 History Allergies Allergy/AdvReac Type Severity Reaction Status Date / Time adhesive Allergy Rash/Hives Verified 04/15/18 16:44 Iodinated Contrast- Oral and Allergy KIDNEY Verified 04/15/18 16:44 IV Dye FAILURE metformin Allergy SUGAR Verified 04/15/18 16:44 LEVEL INCREASE Penicillins Allergy Rash/Hives Verified 04/15/18 16:44 Physical Exam Vitals: Vital Signs Temp Pulse Resp BP Pulse Ox 04/16/18 09:00 48 L 18 143/53 98 04/16/18 08:00 51 L 17 136/54 99 04/16/18 07:00 49 L 18 152/61 95 04/16/18 05:00 51 L 13 135/50 95 04/16/18 04:00 49 L 12 127/44 96 04/16/18 03:00 49 L 13 135/49 04/16/18 02:00 51 L 14 149/48 97 04/16/18 00:45 47 L 14 99 04/15/18 23:00 53 L 15 134/57 98 04/15/18 22:00 56 L 16 157/110 100 04/15/18 21:00 49 L 16 138/58 97 04/15/18 20:00 53 L 12 107/28 78 L 04/15/18 19:00 51 L 18 130/51 97 04/15/18 18:00 44 L 18 134/46 97 04/15/18 17:00 46 L 22 128/42 100 04/15/18 16:30 48 L 16 128/42 99 04/15/18 16:00 46 L 14 143/56 99 04/15/18 15:30 48 L 18 147/57 100 04/15/18 15:16 98.1 F 47 L 18 147/57 100 Intake and Output 04/15/18 04/16/18 04/16/18 22:59 06:59 14:59 Other: Weight 100.244 kg - Constitutional General appearance: no acute distress - Respiratory Respiratory: bilateral: CTA - Cardiovascular Rhythm: regular Heart sounds: normal: S1, S2 Abnormal Heart Sounds: systolic murmur Results 04/15/18 15:47 04/15/18 15:47 Cardiac Enzymes 04/15/18 04/15/18 Range/Units 15:47 15:47 AST 33 (14-36) U/L CK-MB (CK-2) 1.4 (0.0-2.4) ng/mL Troponin I 0.059 H* (0.000-0.034) ng/mL Coagulation 04/15/18 Range/Units 15:47 PT 10.2 (9.0-12.0) sec APTT 28.8 (22.0-30.0) sec CBC 04/15/18 Range/Units 15:47 WBC 5.9 (3.8-10.6) k/uL RBC 4.30 (3.80-5.40) m/uL Hgb 12.2 (11.4-16.0) gm/dL Hct 38.6 (34.0-46.0) % Plt Count 256 (150-450) k/uL Comprehensive Metabolic Panel 04/15/18 Range/Units 15:47 Sodium 135 L (137-145) mmol/L Potassium 3.8 (3.5-5.1) mmol/L Chloride 95 L (98-107) mmol/L Carbon Dioxide 29 (22-30) mmol/L BUN 8 (7-17) mg/dL Creatinine 2.25 H (0.52-1.04) mg/dL Glucose 149 H (74-99) mg/dL Calcium 8.5 (8.4-10.2) mg/dL AST 33 (14-36) U/L ALT 22 (9-52) U/L Alkaline Phosphatase 94 (38-126) U/L Total Protein 7.7 (6.3-8.2) g/dL Albumin 4.2 (3.5-5.0) g/dL Current Medications Generic Name Dose Route Start Last Admin Trade Name Freq PRN Reason Stop Dose Admin Amlodipine Besylate 10 mg 04/16/18 09:00 04/16/18 08:58 Norvasc PO 10 mg DAILY@0900 CYNTHIA Administration Aspirin 81 mg 04/16/18 09:00 04/16/18 08:58 Aspirin PO 81 mg QAM CYNTHIA Administration Atorvastatin Calcium 80 mg 04/15/18 21:00 04/16/18 01:28 Lipitor PO 80 mg HS@2100 CYNTHIA Administration Buspirone HCl 15 mg 04/15/18 21:00 04/16/18 08:58 Buspar PO 15 mg BID@0800,2100 CYNTHIA Administration Clopidogrel Bisulfate 75 mg 04/16/18 09:00 04/16/18 08:58 Plavix PO 75 mg DAILY CYNTHIA Administration Cyclobenzaprine HCl 10 mg 04/15/18 20:42 Flexeril PO Q12H PRN Muscle Spasm Escitalopram Oxalate 20 mg 04/16/18 08:00 04/16/18 08:59 Lexapro PO 20 mg DAILY@0800 CYNTHIA Administration Famotidine 20 mg 04/16/18 08:00 04/16/18 08:59 Pepcid PO 20 mg DAILY@0800 CYNTHIA Administration Furosemide 80 mg 04/16/18 06:00 04/16/18 07:58 Lasix PO 80 mg BID@0600,1400 CYNTHIA Administration Sodium Chloride 1,000 mls @ 50 mls/hr 04/15/18 16:00 04/16/18 04:50 Saline 0.9% IV 50 mls/hr .Q20H CYNTHIA Administration Insulin Aspart 0.01 unit 04/15/18 20:45 Novolog (For Pump) SQ-PUMP CONTINUOUS CYNTHIA Isosorbide Mononitrate 30 mg 04/16/18 08:00 04/16/18 08:58 Imdur PO 30 mg DAILY@0800 CYNTHIA Administration Lamotrigine 100 mg 04/16/18 08:00 04/16/18 08:59 Lamictal PO 100 mg DAILY@0800 CYNTHIA Administration Lamotrigine 150 mg 04/15/18 21:00 04/16/18 01:29 Lamictal PO 150 mg HS@2100 CYNTHIA Administration Levothyroxine Sodium 200 mcg 04/16/18 06:30 04/16/18 08:58 Synthroid PO 200 mcg DAILY@0630 CYNTHIA Administration Lorazepam 0.5 mg 04/15/18 21:00 04/16/18 09:08 Ativan PO Not Given BID@0800,2100 [facility] Naloxone HCl 0.2 mg 04/15/18 17:49 Narcan IV Q2M PRN Opioid Reversal Intake and Output 04/15/18 04/16/18 04/16/18 22:59 06:59 14:59 Other: Weight 100.244 kg 04/15/18 15:47 04/15/18 15:47 Assessment and Plan Assessment: Assessment #1 symptomatic bradycardia #2 CAD and prior multivessel angioplasty and stenting #3 end stage renal disease on hemodialysis #4 hypertension #5 diabetes #6 dyslipidemia Plan #1 the patient need to have a permanent pacemaker implantation #2 avoid any AV anibal uri agents at this point #3 the TSH was checked and also free T4. #4 obtain an echocardiogram was Doppler #5 follow-up with the patient Thank you for allowing us participate in her care
--- NOTE | 2018-04-16 11:02 | P.NPCON ---
History of Present Illness - Reason for Consult end stage renal disease - History of Present Illness Reason for consultation: End-stage renal disease History of present illness: Patient is a 62-year-old female seen in renal consultation for end-stage renal disease. She is maintained on hemodialysis on a Friday schedule for a left upper extremity AV fistula. Last hemodialysis was on Friday. Patient states last couple of weeks she's been feeling quite weak. Friday morning before dialysis she was so weak that she couldn't even get up and had to call a family member to help her get to the dialysis unit. She was advised to go to the hospital after dialysis due to weakness. Patient states her heart rate has been quite low in the 30s to 40s. She is not on beta blockers. Denies fever or chills. No cough. No vomiting or diarrhea. Denies chest pain or shortness of breath. No syncopal episodes. Blood pressures stable. Heart rate has been 40s to 50s while in the ER. Patient was seen in the emergency department. Vital signs are stable. General: The patient appeared well nourished and normally developed. HEENT: Head exam is unremarkable. Neck is without jugular venous distension. LUNGS: Lungs are clear to auscultation and percussion. Breath sounds decreased. HEART: Rate and Rhythm are regular. First and second heart sounds normal. No murmurs, rubs or gallops. ABDOMEN: Abdominal exam reveals normal bowel sounds. Non-tender and non- distended. No evidence of peritonitis. EXTREMITITES: No clubbing, cyanosis, or edema. Past Medical History Past Medical History: Coronary Artery Disease (CAD), Diabetes Mellitus, Dialysis , Hyperlipidemia, Hypertension, Myocardial Infarction (CT), Osteoarthritis (OA) , Thyroid Disorder Additional Past Medical History / Comment(s): per past medical charting pt's stated "pt has had 17 mi's". [address] CT in 2005 and September 2013, 12/29/15 STRESS WNL, Hepatitis A, ALLERGIC rhinitis,CT,ESRD/DIALYSIS- ON --, CARDIO-PULMONARY ARREST 07/05/14 and pt stated she has had short term memory problems since, vertigohypertensive nephrosclerosis, Hepatitis A,Vitamin D deficiency, constipation.dm- uses an insulin pump.HX OF FALLS, hx of a cat bit Last Myocardial Infarction Date:: 09/2013 History of Any Multi-Drug Resistant Organisms: MRSA Date of last positivie culture/infection: 09/27/17 MDRO Source:: rt breast Past Surgical History: Adenoidectomy, Appendectomy, Cholecystectomy, Heart Catheterization With Stent, Hysterectomy, Tonsillectomy Additional Past Surgical History / Comment(s): mary cataracts, LAP-BAND 2004, Laparoscopic cholecystectomy, FIBULA FX has metal pins in place,Left shoulder surgery, Hemodialysis Cataract bilateral with IOL, fistula and sx to" reroute it ",gets dialysis fri-fri-fri. has insulin pump. no bp on left, excisional debreidment rt lower ext. Past Anesthesia/Blood Transfusion Reactions: Motion Sickness, Postoperative Nausea & Vomiting (PONV) Additional Past Anesthesia/Blood Transfusion Reaction / Comment(s): blood transfusion-pt stated they gave her medication for a reaction but does'nt rememebr what the reaction was Date of Last Stent Placement:: 2014 Smoking Status: Never smoker - Past Family History Mother Family Medical History: Congestive Heart Failure (CHF), Diabetes Mellitus, Hypertension Father History Unknown: Yes Family Medical History: Diabetes Mellitus Brother(s) Family Medical History: Diabetes Mellitus, Hyperlipidemia Additional Family Medical History / Comment(s): Hypertension chronic kidney disease Medications and Allergies Home Medications Medication Instructions Recorded Confirmed Type Famotidine [Pepcid] 20 mg PO DAILY@0800 04/29/14 04/15/18 History Aspirin EC [Ecotrin Low Dose] 81 mg PO QAM 01/01/16 04/15/18 History Escitalopram [Lexapro] 20 mg PO DAILY@0800 01/01/16 04/15/18 History busPIRone HCL 15 mg PO BID@0800,2100 01/01/16 04/15/18 History Atorvastatin [Lipitor] 80 mg PO HS@2100 12/27/16 04/15/18 History amLODIPine [Norvasc] 10 mg PO DAILY@0900 12/27/16 04/15/18 History Clopidogrel [Plavix] 75 mg PO DAILY 03/21/17 04/15/18 History Isosorbide Mononitrate ER [Imdur] 30 mg PO DAILY@0800 03/21/17 04/15/18 History lamoTRIgine [LaMICtal] 100 mg PO DAILY@0800 07/01/17 04/15/18 History lamoTRIgine [LaMICtal] 150 mg PO HS@2100 07/01/17 04/15/18 History Insulin Aspart (For Pump) [NovoLOG 0.01 unit SQ-PUMP CONTINUOUS 09/22/17 History (For Pump)] Levothyroxine Sodium [Synthroid] 200 mcg PO DAILY@0600 09/22/17 04/15/18 History Furosemide [Lasix] 80 mg PO BID@0600,1400 10/13/17 04/15/18 History LORazepam [Ativan] 0.5 mg PO BID@0800,2100 10/13/17 04/15/18 History Orphenadrine [Norflex] 100 mg PO Q12H PRN 04/15/18 04/15/18 History Allergies Allergy/AdvReac Type Severity Reaction Status Date / Time adhesive Allergy Rash/Hives Verified 04/15/18 16:44 Iodinated Contrast- Oral and Allergy KIDNEY Verified 04/15/18 16:44 IV Dye FAILURE metformin Allergy SUGAR Verified 04/15/18 16:44 LEVEL INCREASE Penicillins Allergy Rash/Hives Verified 04/15/18 16:44 Physical Exam Vitals: Vital Signs Temp Pulse Resp BP Pulse Ox 04/16/18 10:00 49 L 16 145/59 96 04/16/18 09:00 48 L 18 143/53 98 04/16/18 08:00 51 L 17 136/54 99 04/16/18 07:00 49 L 18 152/61 95 04/16/18 05:00 51 L 13 135/50 95 04/16/18 04:00 49 L 12 127/44 96 04/16/18 03:00 49 L 13 135/49 04/16/18 02:00 51 L 14 149/48 97 04/16/18 00:45 47 L 14 99 04/15/18 23:00 53 L 15 134/57 98 04/15/18 22:00 56 L 16 157/110 100 04/15/18 21:00 49 L 16 138/58 97 04/15/18 20:00 53 L 12 107/28 78 L 04/15/18 19:00 51 L 18 130/51 97 04/15/18 18:00 44 L 18 134/46 97 04/15/18 17:00 46 L 22 128/42 100 04/15/18 16:30 48 L 16 128/42 99 04/15/18 16:00 46 L 14 143/56 99 04/15/18 15:30 48 L 18 147/57 100 04/15/18 15:16 98.1 F 47 L 18 147/57 100 Intake and Output 04/15/18 04/16/18 04/16/18 22:59 06:59 14:59 Other: Weight 100.244 kg Results - Lab Results Most recent lab results Calcium 8.5 mg/dL (8.4-10.2) 04/15/18 15:47 Magnesium 2.0 mg/dL (1.6-2.3) 04/15/18 15:47 04/15/18 15:47 04/15/18 15:47 Assessment and Plan Plan: Assessment: 1. End-stage renal disease maintained on hemodialysis on a Friday schedule for a left upper extremity AV fistula. 2. Dizziness secondary to bradycardia. Cardiology following. Potential pacemaker this admission. 3. Hypertension with chronic kidney disease. Controlled. 4. Chronic kidney disease mineral bone disease. 5. History of diastolic CHF. 6. History of coronary disease status post angioplasty and stenting in the past. Plan: Hemodialysis tomorrow. Check phosphorus level. Follow-up echocardiogram. Thank you for the consultation. I will continue to follow the patient with you during her hospital stay.
--- NOTE | 2018-04-16 11:21 | P.HPIM ---
History of Present Illness H&P Date: 04/15/18 Chief Complaint: Bradycardia and Presyncope, ESRD, CAD, DM 62-year-old female one of Dr. Gar's patient with past medical history of CAD/CHF,end-stage renal disease on hemodialysis 3 times a week, history of type 2 diabetes on insulin pump, history of morbid obesity post lap band, also multiple admission for chest pain, angina and non-ST NV who presented to the emergency department at [facility] complaining that she went to sleep last night with normal status to work up this morning feeling severely dizzy lightheaded and had presyncope-like symptoms. Patient become much worse with lightheadedness and dizziness after her hemodialysis ended up coming to demurs department surprisingly found to have severe bradycardia with pulse rate running in the 30s and 40s only with significant drop in blood pressure. Cardiology were contacted and decided to admit patient to the hospital to watch her on seed buyer repeat her thyroid testing make sure her electrolytes and sodium along with magnesium are normal and revisit the idea whether doing a pacemaker is feasible. Review of Systems CONSTITUTIONAL: obese in no acute respiratory distress. EYES: No icterus sclerae, no conjunctivitis. EARS, NOSE, MOUTH, THROAT, and FACE: No sore throat, lymphadenopathy, carotid bruits or deformity. RESPIRATORY: mild shortness of breath co. CARDIOVASCULAR: recurrent chest pain, an and significant shortness GASTROINTESTINAL: abdominal pain with nausea no vomiting GENITOURINARY: Negative for Hematuria or UTI, no kidney stones. INTEGUMENT/BREAST: Negative for any muscular injury with mild osteoarthritis.. HEMATOLOGIC/LYMPHATIC: Negative for bleed or purpura. MUSCULOSKELTAL: Negative for Myalgia or arthralgia. NEURLOGICAL: presyncope, dizziness, worsening headacn... BEHAVIORAL/PSYCH: Negative. ENDOCRINE: Negative. Past Medical History Past Medical History: Coronary Artery Disease (CAD), Diabetes Mellitus, Dialysis , Hyperlipidemia, Hypertension, Myocardial Infarction (NV), Osteoarthritis (OA) , Thyroid Disorder Additional Past Medical History / Comment(s): per past medical charting pt's stated "pt has had 17 mi's". ischemic cardiomyopathy. NV in 2005 and September 2013, 12/29/15 STRESS WNL, Hepatitis A, ALLERGIC rhinitis,NV,ESRD/DIALYSIS- ON -, CARDIO-PULMONARY ARREST 07/05/14 and pt stated she has had short term memory problems since, vertigohypertensive nephrosclerosis, Hepatitis A,Vitamin D deficiency, constipation.dm- uses an insulin pump.HX OF FALLS, hx of a cat bit Last Myocardial Infarction Date:: 09/2013 History of Any Multi-Drug Resistant Organisms: MRSA Date of last positivie culture/infection: 09/27/17 MDRO Source:: rt breast Past Surgical History: Adenoidectomy, Appendectomy, Cholecystectomy, Heart Catheterization With Stent, Hysterectomy, Tonsillectomy Additional Past Surgical History / Comment(s): mary cataracts, LAP-BAND 2004, Laparoscopic cholecystectomy, FIBULA FX has metal pins in place,Left shoulder surgery, Hemodialysis Cataract bilateral with IOL, fistula and sx to" reroute it ",gets dialysis fri-fri-fri. has insulin pump. no bp on left, excisional debreidment rt lower ext. Past Anesthesia/Blood Transfusion Reactions: Motion Sickness, Postoperative Nausea & Vomiting (PONV) Additional Past Anesthesia/Blood Transfusion Reaction / Comment(s): blood transfusion-pt stated they gave her medication for a reaction but does'nt rememebr what the reaction was Date of Last Stent Placement:: 2014 Smoking Status: Never smoker - Past Family History Mother Family Medical History: Congestive Heart Failure (CHF), Diabetes Mellitus, Hypertension Father History Unknown: Yes Family Medical History: Diabetes Mellitus Brother(s) Family Medical History: Diabetes Mellitus, Hyperlipidemia Additional Family Medical History / Comment(s): Hypertension chronic kidney disease Medications and Allergies Home Medications Medication Instructions Recorded Confirmed Type Famotidine [Pepcid] 20 mg PO DAILY@0800 04/29/14 04/15/18 History Aspirin EC [Ecotrin Low Dose] 81 mg PO QAM 01/01/16 04/15/18 History Escitalopram [Lexapro] 20 mg PO DAILY@0800 01/01/16 04/15/18 History busPIRone HCL 15 mg PO BID@0800,2100 01/01/16 04/15/18 History Atorvastatin [Lipitor] 80 mg PO HS@2100 12/27/16 04/15/18 History amLODIPine [Norvasc] 10 mg PO DAILY@0900 12/27/16 04/15/18 History Clopidogrel [Plavix] 75 mg PO DAILY 03/21/17 04/15/18 History Isosorbide Mononitrate ER [Imdur] 30 mg PO DAILY@0800 03/21/17 04/15/18 History lamoTRIgine [LaMICtal] 100 mg PO DAILY@0800 07/01/17 04/15/18 History lamoTRIgine [LaMICtal] 150 mg PO HS@2100 07/01/17 04/15/18 History Insulin Aspart (For Pump) [NovoLOG 0.01 unit SQ-PUMP CONTINUOUS 09/22/17 History (For Pump)] Levothyroxine Sodium [Synthroid] 200 mcg PO DAILY@0600 09/22/17 04/15/18 History Furosemide [Lasix] 80 mg PO BID@0600,1400 10/13/17 04/15/18 History LORazepam [Ativan] 0.5 mg PO BID@0800,2100 10/13/17 04/15/18 History Orphenadrine [Norflex] 100 mg PO Q12H PRN 04/15/18 04/15/18 History Allergies Allergy/AdvReac Type Severity Reaction Status Date / Time adhesive Allergy Rash/Hives Verified 04/15/18 16:44 Iodinated Contrast- Oral and Allergy KIDNEY Verified 04/15/18 16:44 IV Dye FAILURE metformin Allergy SUGAR Verified 04/15/18 16:44 LEVEL INCREASE Penicillins Allergy Rash/Hives Verified 04/15/18 16:44 Physical Exam Vitals: Vital Signs Temp Pulse Resp BP Pulse Ox 04/15/18 20:00 53 L 12 107/28 78 L 04/15/18 19:00 51 L 18 130/51 97 04/15/18 18:00 44 L 18 134/46 97 04/15/18 17:00 46 L 22 128/42 100 04/15/18 16:30 48 L 16 128/42 99 04/15/18 16:00 46 L 14 143/56 99 04/15/18 15:30 48 L 18 147/57 100 04/15/18 15:16 98.1 F 47 L 18 147/57 100 Intake and Output 04/15/18 04/15/18 04/15/18 06:59 14:59 22:59 Other: Weight 100.244 kg General Appearance: Alert, cooperative, no distress, appears mildly obese. Neck HEENT: Supple, no lymphadenopathy, no thyroid enlargement, no carotid bruits. Lungs: decrease breath sound bilaterally with fine rhonchi's Chest Wall: normal expansion with deep inspiration slight discomfo and tenderness at the costocho in the left side, no deformity was found on exam, Heart: irregular rhythm and rate S1 with ejection systolic murmu Back: Symmetric, no curvature, ROM normal, no CVA tenderness. Abdomen: Soft, non-tender, bowel sounds active all four quadrants, no masses, no organomegaly. Extremities: Extremities normal, atraumatic, no cyanosis or edema.multiple arthritis sign in the knees hips and the large joint. Pulses: 2+ and symmetric. Skin: Skin color, texture, tugor normal, no rashes or lesions. Neurologic: Alert oriented x3 cranial nerves II through XII intact, positive for weakness especially in the lower extrece and gait. Results CBC & Chem 7: 04/15/18 15:47 04/15/18 15:47 Labs: Abnormal Lab Results - Last 24 Hours (Table) 04/15/18 04/15/18 04/15/18 Range/Units 15:47 15:47 15:47 RDW 18.2 H (11.5-15.5) % Sodium 135 L (137-145) mmol/L Chloride 95 L (98-107) mmol/L Creatinine 2.25 H (0.52-1.04) mg/dL Glucose 149 H (74-99) mg/dL Troponin I 0.059 H* (0.000-0.034) ng/mL TSH (0.465-4.680) mIU/L 04/15/18 Range/Units 15:47 RDW (11.5-15.5) % Sodium (137-145) mmol/L Chloride (98-107) mmol/L Creatinine (0.52-1.04) mg/dL Glucose (74-99) mg/dL Troponin I (0.000-0.034) ng/mL TSH 0.307 L (0.465-4.680) mIU/L Assessment and Plan Plan: 1 Severe dizziness and presyncope: Most likely secondary to severe arrhythmia and bradycardia, patient was admitted will be seen cardiology continue seed buyer whether will require pacemaker or not is to be decided. 2 Mildly elevated troponin: With recurrent presentation with patient every time she is in the hospital, this is could be a troponin leak, patient is not history of CAD with multiple angioplasty in the past repeat troponin in the morning, will make sure cardiac testing are up-to-date. 3 History of CAD: Post NV with multiple intervention in the past still seeing cardiology regular basis has been on medical management. 4 Type 2 diabetes: On insulin pump continue patient's management continue to check Accu-Chek with sliding scales coverage. 5 End-stage renal disease: Hemodialysis 3 times a week consult nephrology. 6 Severe cardiomyopathy, mostly ischemic has been on medical management so far further intervention is not required at this point. 7 Hypertension: On amlodipine 10 mg a day, furosemide 80 mg twice a day. 8 Hyperlipidemia: Remain on atorvastatin 80 mg daily continue medication. 9 Hypothyroidism: Continue patient on Synthroid 200 g daily. 10 Bipolar disorders: Has been on Lamictal total of 250 mg a day along with BuSpar 15 mg twice a day. 11 GI prophylaxis: Patient be on Pepcid 20 mg daily. 12 DVT prophylaxis: Early mobilization be done and patient might benefit from heparin 5000 units twice a day. CODE STATUS: Full code. Admit patient to inpatient status for more than 2 nights.
--- NOTE | 2018-04-16 11:26 | P.PN ---
Subjective Progress Note Date: 04/16/18 Principal diagnosis: Severe bradycardia, presyncope, end-stage renal disease, CAD, diabetes, hyperlipidemia, hypertension and hypothyroidism 62-year-old female one of Dr. Gar's patient with past medical history of CAD/CHF,end-stage renal disease on hemodialysis 3 times a week, history of type 2 diabetes on insulin pump, history of morbid obesity post lap band, also multiple admission for chest pain, angina and non-ST NV who presented to the emergency department at [facility] complaining that she went to sleep last night with normal status to work up this morning feeling severely dizzy lightheaded and had presyncope-like symptoms. Patient become much worse with lightheadedness and dizziness after her hemodialysis ended up coming to [facility] department surprisingly found to have severe bradycardia with pulse rate running in the 30s and 40s only with significant drop in blood pressure. Cardiology were contacted and decided to admit patient to the hospital to watch her on supervisor cigarette making department repeat her thyroid testing make sure her electrolytes and sodium along with magnesium are normal and revisit the idea whether doing a pacemaker is feasible. 04/16 The patient is feeling slightly bit better still on supervisor cigarette making department her thyroid testing came back negative, patient seen cardiology and discuss results in detail patient will need to have a permanent pacemaker to correct her severe bradycardia and to secure that she is again have any further presyncope or severe dizziness episode like she had. The morbidity and mortality of pacemaker was discussed in detail with the patient and she is agreeable to go through with something will be left up to cardiology from here on. Objective - Vital Signs Vital signs: Vital Signs Temp 98.1 F 04/15/18 15:16 Pulse 49 L 04/16/18 10:00 Resp 16 04/16/18 10:00 BP 145/59 04/16/18 10:00 Pulse Ox 96 04/16/18 10:00 Intake & Output 04/15/18 04/16/18 04/16/18 18:59 06:59 18:59 Weight 100.244 kg - Exam Review of systems: CONSTITUTIONAL: obese in no acute respiratory distress. EYES: No icterus sclerae, no conjunctivitis. EARS, NOSE, MOUTH, THROAT, and FACE: No sore throat, lymphadenopathy, carotid bruits or deformity. RESPIRATORY: mild shortness of breath co. CARDIOVASCULAR: recurrent chest pain, an and significant shortness GASTROINTESTINAL: abdominal pain with nausea no vomiting GENITOURINARY: Negative for Hematuria or UTI, no kidney stones. INTEGUMENT/BREAST: Negative for any muscular injury with mild osteoarthritis.. HEMATOLOGIC/LYMPHATIC: Negative for bleed or purpura. MUSCULOSKELTAL: Negative for Myalgia or arthralgia. NEURLOGICAL: presyncope, dizziness, worsening headacn... BEHAVIORAL/PSYCH: Negative. ENDOCRINE: Negative Physical examination: General Appearance: Alert, cooperative, no distress, appears mildly obese. Neck HEENT: Supple, no lymphadenopathy, no thyroid enlargement, no carotid bruits. Lungs: decrease breath sound bilaterally with fine rhonchi's Chest Wall: normal expansion with deep inspiration slight discomfo and tenderness at the costocho in the left side, no deformity was found on exam, Heart: irregular rhythm and rate S1 with ejection systolic murmu Back: Symmetric, no curvature, ROM normal, no CVA tenderness. Abdomen: Soft, non-tender, bowel sounds active all four quadrants, no masses, no organomegaly. Extremities: Extremities normal, atraumatic, no cyanosis or edema.multiple arthritis sign in the knees hips and the large joint. Pulses: 2+ and symmetric. Skin: Skin color, texture, tugor normal, no rashes or lesions. Neurologic: Alert oriented x3 cranial nerves II through XII intact, positive for weakness especially in the lower extrece and gait. - Labs CBC & Chem 7: 04/15/18 15:47 04/15/18 15:47 Labs: Abnormal Lab Results - Last 24 Hours (Table) 04/15/18 04/15/18 04/15/18 Range/Units 15:47 15:47 15:47 RDW 18.2 H (11.5-15.5) % Sodium 135 L (137-145) mmol/L Chloride 95 L (98-107) mmol/L Creatinine 2.25 H (0.52-1.04) mg/dL Glucose 149 H (74-99) mg/dL Troponin I 0.059 H* (0.000-0.034) ng/mL TSH (0.465-4.680) mIU/L Free T4 (0.78-2.19) ng/dL 04/15/18 Range/Units 15:47 RDW (11.5-15.5) % Sodium (137-145) mmol/L Chloride (98-107) mmol/L Creatinine (0.52-1.04) mg/dL Glucose (74-99) mg/dL Troponin I (0.000-0.034) ng/mL TSH 0.307 L (0.465-4.680) mIU/L Free T4 2.73 H (0.78-2.19) ng/dL Assessment and Plan Plan: 1 Severe bradycardia: Patient still bradycardic on supervisor cigarette making department, is seen cardiology and discuss the possibility of going for permanent pacemaker. 2 Mildly elevated troponin: With recurrent presentation with patient every time she is in the hospital, this is could be a troponin leak, patient is not history of CAD with multiple angioplasty in the past repeat troponin in the morning, will make sure cardiac testing are up-to-date. 3 History of CAD: Post NV with multiple intervention in the past still seeing cardiology regular basis has been on medical management. 4 Type 2 diabetes: On insulin pump continue patient's management continue to check Accu-Chek with sliding scales coverage. 5 End-stage renal disease: Hemodialysis 3 times a week consult nephrology. 6 Severe cardiomyopathy, mostly ischemic has been on medical management so far further intervention is not required at this point. 7 Hypertension: On amlodipine 10 mg a day, furosemide 80 mg twice a day. 8 Hyperlipidemia: Remain on atorvastatin 80 mg daily continue medication. 9 Hypothyroidism: Continue patient on Synthroid 200 g daily. 10 Bipolar disorders: Has been on Lamictal total of 250 mg a day along with BuSpar 15 mg twice a day. Discussion: Long discussion with patient about the comorbidity and mortality of pacemaker; she is agreeable to it cardiology or seen patient and also discussed with Dr. Smith the timeframe and whether this is possible for today or tomorrow.
[2018-04-16 11:58] LABS: Glucose,Whole Blood 119 mg/dL (75-99)
[2018-04-16] MEDS ORDERED: INSULIN PUMP TARGET GLUCOSE 1 EACH MISC MISCELLANE PRN (12:40)
[2018-04-16] MEDS ORDERED: INSULIN PUMP ACTIVE INSULIN 1 EACH MISC MISCELLANE PRN (12:40)
[2018-04-16] MEDS ORDERED: INSULIN ASPART 100 UNIT/ML 1 ML 10 ML VIAL SQ PRN (12:40)
[2018-04-16] MEDS ORDERED: INSPUCOR MISCELLANE PRN (12:40)
[2018-04-16] MEDS ORDERED: INSULIN PUMP BASAL RATES 1 EACH MISC MISCELLANE PRN (12:40)
[2018-04-16 17:29] LABS: Glucose,Whole Blood 155 mg/dL (75-99)
[2018-04-16] MEDS: INSULIN PUMP MEAL BOLUS 1 UNIT MISC MISCELLANE SCH ×2 (18:30→21:32)
[2018-04-16 20:53] LABS: Hemoglobin A1C 6.7 % (4.0-6.0)
[2018-04-16 20:59] LABS: Glucose,Whole Blood 135 mg/dL (75-99)
[2018-04-17 06:01] LABS: Glucose,Whole Blood 197 mg/dL (75-99)
[2018-04-17] MEDS: FUROSEMIDE 80 MG TAB PO SCH ×2 (06:24→17:46)
[2018-04-17] MEDS: LEVOTHYROXINE 100 MCG TAB PO SCH (06:24)
[2018-04-17] MEDS: INSULIN PUMP MEAL BOLUS 1 UNIT MISC MISCELLANE SCH ×4 (06:24→20:49)
[2018-04-17 07:35] LABS: Calcium 7.3 mg/dL (8.4-10.2); Phosphorus 5.1 mg/dL (2.5-4.5); Potassium 3.7 mmol/L (3.5-5.1)
[2018-04-17] MEDS: LORazepam 0.5 MG TAB PO SCH ×2 (08:25→20:40)
[2018-04-17] MEDS: busPIRone HCl 5 MG TAB PO SCH ×2 (08:25→20:50)
[2018-04-17] MEDS: ESCITALOPRAM 20 MG TAB PO SCH (08:25)
[2018-04-17] MEDS: ISOSORBIDE MONONITRATE ER 30 MG TAB.ER.24H PO SCH (08:25)
[2018-04-17] MEDS: FAMOTIDINE 20 MG TAB PO SCH (08:25)
[2018-04-17] MEDS: CLOPIDOGREL 75 MG TAB PO SCH (08:26)
[2018-04-17] MEDS: lamoTRIgine 100 MG TAB PO SCH ×2 (08:26→20:36)
[2018-04-17] MEDS: amLODIPine 10 MG TAB PO SCH (08:26)
[2018-04-17] MEDS: ASPIRIN 81 MG PO SCH (08:26)
[2018-04-17] MEDS: SODIUM CHLORIDE 0.9% 1,000 ML IV SCH (08:34)
--- NOTE | 2018-04-17 08:44 | P.PN ---
Subjective Progress Note Date: 04/17/18 Principal diagnosis: Symptomatic sinus bradycardia This is a pleasant 62-year-old female patient who follows with Dr. JAE Jc in the office as an outpatient with a past medical history significant for coronary artery disease and status post multiple vessel angioplasty, end stage renal disease on hemodialysis, diabetes, hypertension, and dyslipidemia, was brought from the dialysis center to the emergency room because of bradycardia. For the last 24-48 hours, she has been feeling very dizzy. She is unable to get out of the bed because of the dizziness. As a matter of fact few days ago she did have an episode of syncope. The patient does not recall the details because she lives alone. But because of the dizziness and lightheadedness she is unable to ambulate and using her walker and she has been in bed all the time. She denies having any symptoms of chest pain or chest discomfort and no shortness of breath. When the patient was having dialysis yesterday it was noticed by the end of dialysis that her heart rate has been in the 40s and because of that the patient was transferred to the emergency room. In the ER and during her stay, she has been in the 40s as well. The EKG to me showed what it seems to be junctional rhythm with heart rate in the 40s and bifascicular block with RBBB and left anterior fascicular block. The TSH was checked and came in to be low but the free T4 came in to be within normal limits. The computed tomography scan of the brain was performed and it showed old infarct but there is no acute abnormalities. The cardiac enzymes were checked and came in to be slightly abnormal but this is likely representing care renal dysfunction. Please note that the patient was not receiving any AV anibal uri agents at home. She is not on any beta uri, amiodarone, or digoxin. On follow-up with the patient today, for a first obtuse thousand and 19, the patient is feeling slightly better. She continues to be bradycardic with heart rate in the 50s. She continues to be not on any AV anibal uri agents. An echocardiogram was performed and will follow-up with that. I discussed her case yesterday with Dr. JAE Jc who is in agreement that the patient does need to have a permanent pacemaker implantation and the plan is to have it done on Friday by him. Objective - Vital Signs Vital signs: Vital Signs Temp 98.1 F 04/16/18 20:00 Pulse 52 L 04/17/18 04:00 Resp 18 04/17/18 04:00 BP 152/54 04/17/18 04:00 Pulse Ox 99 04/17/18 04:00 Intake & Output 04/16/18 04/17/18 04/17/18 18:59 06:59 18:59 Intake Total 840 10 Output Total 0 Balance 840 10 Weight 100.2 kg Intake: IV 20 10 Invasive Line 1 20 10 Oral 820 Output: Urine 0 Other: Voiding Method Toilet Toilet - Constitutional General appearance: Present: no acute distress - Respiratory Respiratory: bilateral: diminished - Cardiovascular Rhythm: regular Heart sounds: normal: S1, S2 - Labs CBC & Chem 7: 04/15/18 15:47 04/17/18 07:03 Labs: Abnormal Lab Results - Last 24 Hours (Table) 04/15/18 04/16/18 04/16/18 Range/Units 15:47 11:38 16:39 Sodium (137-145) mmol/L BUN (7-17) mg/dL Creatinine (0.52-1.04) mg/dL Glucose (74-99) mg/dL POC Glucose (mg/dL) 119 H 155 H (75-99) mg/dL Hemoglobin A1c 6.7 H (4.0-6.0) % Calcium (8.4-10.2) mg/dL Phosphorus (2.5-4.5) mg/dL 04/16/18 04/17/18 04/17/18 Range/Units 20:49 05:59 07:03 Sodium 135 L (137-145) mmol/L BUN 38 H (7-17) mg/dL Creatinine 5.74 H (0.52-1.04) mg/dL Glucose 205 H (74-99) mg/dL POC Glucose (mg/dL) 135 H 197 H (75-99) mg/dL Hemoglobin A1c (4.0-6.0) % Calcium 7.3 L (8.4-10.2) mg/dL Phosphorus 5.1 H (2.5-4.5) mg/dL Assessment and Plan Assessment: Assessment #1 symptomatic bradycardia #2 CAD and prior multivessel angioplasty and stenting #3 end stage renal disease on hemodialysis #4 hypertension #5 diabetes #6 dyslipidemia Plan #1 the patient need to have a permanent pacemaker implantation. She is going to have to pacemaker at this coming Friday #2 avoid any AV anibal uri agents at this point #3 the TSH was checked and also free T4. #4 follow-up on the echo cardiac #5 follow-up with the patient Thank you for allowing us participate in her care
--- NOTE | 2018-04-17 09:21 | P.PN ---
Subjective Patient is seen in follow-up for end-stage renal disease. She is maintained on hemodialysis on a Friday schedule. Patient presented with dizziness and was noted to be bradycardic. Heart rate is stable in the 50s. Denies chest pain or shortness of breath. She is awaiting pacemaker placement. Scheduled for dialysis today. Vital signs are stable. General: The patient appeared well nourished and normally developed. HEENT: Head exam is unremarkable. Neck is without jugular venous distension. LUNGS: Lungs are clear to auscultation and percussion. Breath sounds decreased. HEART: Rate and Rhythm are regular. First and second heart sounds normal. No murmurs, rubs or gallops. ABDOMEN: Abdominal exam reveals normal bowel sounds. Non-tender and non- distended. No evidence of peritonitis. EXTREMITITES: No clubbing, cyanosis, or edema. Objective - Vital Signs Vital signs: Vital Signs Temp 98.1 F 04/16/18 20:00 Pulse 52 L 04/17/18 04:00 Resp 18 04/17/18 04:00 BP 152/54 04/17/18 04:00 Pulse Ox 99 04/17/18 04:00 Intake & Output 04/16/18 04/17/18 04/17/18 18:59 06:59 18:59 Intake Total 840 10 Output Total 0 Balance 840 10 Weight 100.2 kg Intake: IV 20 10 Invasive Line 1 20 10 Oral 820 Output: Urine 0 Other: Voiding Method Toilet Toilet - Labs CBC & Chem 7: 04/15/18 15:47 04/17/18 07:03 Labs: Abnormal Lab Results - Last 24 Hours (Table) 04/15/18 04/16/18 04/16/18 Range/Units 15:47 11:38 16:39 Sodium (137-145) mmol/L BUN (7-17) mg/dL Creatinine (0.52-1.04) mg/dL Glucose (74-99) mg/dL POC Glucose (mg/dL) 119 H 155 H (75-99) mg/dL Hemoglobin A1c 6.7 H (4.0-6.0) % Calcium (8.4-10.2) mg/dL Phosphorus (2.5-4.5) mg/dL 04/16/18 04/17/18 04/17/18 Range/Units 20:49 05:59 07:03 Sodium 135 L (137-145) mmol/L BUN 38 H (7-17) mg/dL Creatinine 5.74 H (0.52-1.04) mg/dL Glucose 205 H (74-99) mg/dL POC Glucose (mg/dL) 135 H 197 H (75-99) mg/dL Hemoglobin A1c (4.0-6.0) % Calcium 7.3 L (8.4-10.2) mg/dL Phosphorus 5.1 H (2.5-4.5) mg/dL Assessment and Plan Plan: Assessment: 1. End-stage renal disease maintained on hemodialysis on a Friday schedule for a left upper extremity AV fistula. 2. Dizziness secondary to bradycardia. Cardiology following. Potential pacemaker on Friday. 3. Hypertension with chronic kidney disease. Controlled. 4. Chronic kidney disease mineral bone disease. 5. History of diastolic CHF. 6. History of coronary disease status post angioplasty and stenting in the past. Plan: Hemodialysis today. Add PhosLo with meals.
[2018-04-17] MEDS ORDERED: CLINDAMYCIN 900 MG in DEXTROSE 5% IN WATER 50 ML IVPB ONE ×2 (10:27)
[2018-04-17] MEDS ORDERED: SODIUM CHLORIDE 0.9% 1,000 ML IV SCH ×2 (10:30)
[2018-04-17 11:38] LABS: Glucose,Whole Blood 178 mg/dL (75-99)
[2018-04-17] MEDS: CALCIUM ACETATE 667 MG CAP PO SCH ×2 (11:43→17:46)
--- NOTE | 2018-04-17 13:30 | P.PN ---
Subjective Progress Note Date: 04/17/18 62-year-old female one of Dr. Gar's patient with past medical history of CAD/CHF,end-stage renal disease on hemodialysis 3 times a week, history of type 2 diabetes on insulin pump, history of morbid obesity post lap band, also multiple admission for chest pain, angina and non-ST AR who presented to the emergency department at [facility] complaining that she went to sleep last night with normal status to work up this morning feeling severely dizzy lightheaded and had presyncope-like symptoms. Patient become much worse with lightheadedness and dizziness after her hemodialysis ended up coming to demurs department surprisingly found to have severe bradycardia with pulse rate running in the 30s and 40s only with significant drop in blood pressure. Cardiology were contacted and decided to admit patient to the hospital to watch her on cellophane bag machine operator repeat her thyroid testing make sure her electrolytes and sodium along with magnesium are normal and revisit the idea whether doing a pacemaker is feasible. 04/16 The patient is feeling slightly bit better still on cellophane bag machine operator her thyroid testing came back negative, patient seen cardiology and discuss results in detail patient will need to have a permanent pacemaker to correct her severe bradycardia and to secure that she is again have any further presyncope or severe dizziness episode like she had. The morbidity and mortality of pacemaker was discussed in detail with the patient and she is agreeable to go through with something will be left up to cardiology from here on. 04/17: Patient's heart rate remains in the 50s. Plan is for permanent pacemaker placement on Friday by Dr. JAE Jc. Patient is scheduled for hemodialysis today. BUN 38 and creatinine 5.74. She has been afebrile, blood pressure 157/61 , pulse ox 90% on room air. CBG is running 135 - 197. Patient is on her insulin pump. Patient denies chest pain or shortness of breath. Review of systems: CONSTITUTIONAL: obese in no acute respiratory distress. Denies fever or chills. EYES: No icterus sclerae, no conjunctivitis. EARS, NOSE, MOUTH, THROAT, and FACE: No sore throat, lymphadenopathy, carotid bruits or deformity. RESPIRATORY: mild shortness of breath co. CARDIOVASCULAR: recurrent chest pain, an and significant shortness GASTROINTESTINAL: abdominal pain with nausea no vomiting GENITOURINARY: Negative for Hematuria or UTI, no kidney stones. INTEGUMENT/BREAST: Negative for any muscular injury with mild osteoarthritis. HEMATOLOGIC/LYMPHATIC: Negative for bleed or purpura. MUSCULOSKELTAL: Negative for Myalgia or arthralgia. NEURLOGICAL: presyncope, dizziness, worsening headache. BEHAVIORAL/PSYCH: Negative. ENDOCRINE: Negative Objective - Vital Signs Vital signs: Vital Signs Temp 98.1 F 04/17/18 12:07 Pulse 50 L 04/17/18 12:07 Resp 18 04/17/18 12:07 BP 147/61 04/17/18 12:07 Pulse Ox 98 04/17/18 12:07 Intake & Output 04/16/18 04/17/18 04/17/18 18:59 06:59 18:59 Intake Total 840 10 600 Output Total 0 Balance 840 10 600 Weight 100.2 kg Intake: IV 20 10 Invasive Line 1 20 10 Intake, IV Titration 600 Amount Sodium Chloride 0.9% 1, 600 000 ml @ 50 mls/hr IV . Q20H [facility] Rx#:[id number] Oral 820 Output: Urine 0 Other: Voiding Method Toilet Toilet Toilet - Exam Physical examination: General Appearance: Alert, cooperative, no distress, obese. Neck HEENT: Supple, no lymphadenopathy, no thyroid enlargement, no carotid bruits. Lungs: decrease breath sound bilaterally with fine rhonchi's Chest Wall: normal expansion with deep inspiration slight discomfo and tenderness at the costocho in the left side, no deformity was found on exam, Heart: irregular rhythm and rate S1 with ejection systolic murmu Back: Symmetric, no curvature, ROM normal, no CVA tenderness. Abdomen: Soft, non-tender, bowel sounds active all four quadrants, no masses, no organomegaly. Extremities: Extremities normal, atraumatic, no cyanosis or edema.multiple arthritis sign in the knees hips and the large joint. Pulses: 2+ and symmetric. Skin: Skin color, texture, tugor normal, no rashes or lesions. Neurologic: Alert oriented x3 cranial nerves II through XII intact, positive for weakness especially in the lower extremities. - Labs CBC & Chem 7: 04/15/18 15:47 04/17/18 07:03 Labs: Abnormal Lab Results - Last 24 Hours (Table) 04/15/18 04/16/18 04/16/18 Range/Units 15:47 16:39 20:49 Sodium (137-145) mmol/L BUN (7-17) mg/dL Creatinine (0.52-1.04) mg/dL Glucose (74-99) mg/dL POC Glucose (mg/dL) 155 H 135 H (75-99) mg/dL Hemoglobin A1c 6.7 H (4.0-6.0) % Calcium (8.4-10.2) mg/dL Phosphorus (2.5-4.5) mg/dL 04/17/18 04/17/18 04/17/18 Range/Units 05:59 07:03 11:35 Sodium 135 L (137-145) mmol/L BUN 38 H (7-17) mg/dL Creatinine 5.74 H (0.52-1.04) mg/dL Glucose 205 H (74-99) mg/dL POC Glucose (mg/dL) 197 H 178 H (75-99) mg/dL Hemoglobin A1c (4.0-6.0) % Calcium 7.3 L (8.4-10.2) mg/dL Phosphorus 5.1 H (2.5-4.5) mg/dL Assessment and Plan Plan: 1 Severe symptomaticbradycardia. Plan is for permanent pacemaker implantation on Friday with Dr. JAE Jc. Cardiology consult appreciated. Continue cellophane bag machine operator on selective care. 2 Mildly elevated troponin, acute coronary syndrome ruled out. Cardiology consult appreciated. 3 History of CAD: Post AR with multiple intervention in the past still seeing cardiology regular basis has been on medical management. 4 Type 2 diabetes: On insulin pump continue patient's management continue to check Accu-Chek with sliding scales coverage. 5 End-stage renal disease: Hemodialysis 3 times a week. Nephrology consult appreciated. 6 Severe cardiomyopathy, mostly ischemic has been on medical management so far further intervention is not required at this point. 7 Hypertension: On amlodipine 10 mg a day, furosemide 80 mg twice a day. 8 Hyperlipidemia: Remain on atorvastatin 80 mg daily continue medication. 9 Hypothyroidism: Continue patient on Synthroid 200 g daily. 10 Bipolar disorder: Has been on Lamictal total of 250 mg a day along with BuSpar 15 mg twice a day. Discharge plan: Home with [facility]NA Impression and plan of care have been directed as dictated by the signing physician. Emely Contreras nurse practitioner acting as scribe for signing physician.
[2018-04-17 16:17] LABS: Glucose,Whole Blood 114 mg/dL (75-99)
[2018-04-17] MEDS: ATORVASTATIN 80 MG TAB PO SCH (20:35)
[2018-04-17 21:07] LABS: Glucose,Whole Blood 211 mg/dL (75-99)
[2018-04-18] MEDS: SODIUM CHLORIDE 0.9% 1,000 ML IV SCH (01:47)
[2018-04-18] MEDS: CALCIUM ACETATE 667 MG CAP PO SCH ×3 (06:24→16:49)
[2018-04-18] MEDS: LEVOTHYROXINE 100 MCG TAB PO SCH (06:24)
[2018-04-18] MEDS: FUROSEMIDE 80 MG TAB PO SCH ×2 (06:24→14:54)
[2018-04-18 06:42] LABS: Glucose,Whole Blood 310 mg/dL (75-99)
[2018-04-18] MEDS: INSULIN PUMP MEAL BOLUS 1 UNIT MISC MISCELLANE SCH ×4 (06:42→21:07)
[2018-04-18 08:32] LABS: Calcium 7.9 mg/dL (8.4-10.2); Potassium 4.1 mmol/L (3.5-5.1)
[2018-04-18] MEDS: LORazepam 0.5 MG TAB PO SCH ×2 (09:02→20:26)
[2018-04-18] MEDS: ASPIRIN 81 MG PO SCH (09:02)
[2018-04-18] MEDS: ESCITALOPRAM 20 MG TAB PO SCH (09:03)
[2018-04-18] MEDS: CLOPIDOGREL 75 MG TAB PO SCH (09:03)
[2018-04-18] MEDS: busPIRone HCl 5 MG TAB PO SCH ×2 (09:03→20:25)
[2018-04-18] MEDS: ISOSORBIDE MONONITRATE ER 30 MG TAB.ER.24H PO SCH (09:03)
[2018-04-18] MEDS: amLODIPine 10 MG TAB PO SCH (09:03)
[2018-04-18] MEDS: FAMOTIDINE 20 MG TAB PO SCH (09:03)
[2018-04-18] MEDS: lamoTRIgine 100 MG TAB PO SCH ×2 (09:03→20:26)
--- NOTE | 2018-04-18 11:11 | P.PN ---
Subjective 62-year-old female one of Dr. Gar's patient with past medical history of CAD/CHF,end-stage renal disease on hemodialysis 3 times a week, history of type 2 diabetes on insulin pump, history of morbid obesity post lap band, also multiple admission for chest pain, angina and non-ST [place] who presented to the emergency department at [facility] complaining that she went to sleep last night with normal status to work up this morning feeling severely dizzy lightheaded and had presyncope-like symptoms. Patient become much worse with lightheadedness and dizziness after her hemodialysis ended up coming to demurs department surprisingly found to have severe bradycardia with pulse rate running in the 30s and 40s only with significant drop in blood pressure. Cardiology were contacted and decided to admit patient to the hospital to watch her on salvage winder repeat her thyroid testing make sure her electrolytes and sodium along with magnesium are normal and revisit the idea whether doing a pacemaker is feasible. 04/16 The patient is feeling slightly bit better still on salvage winder her thyroid testing came back negative, patient seen cardiology and discuss results in detail patient will need to have a permanent pacemaker to correct her severe bradycardia and to secure that she is again have any further presyncope or severe dizziness episode like she had. The morbidity and mortality of pacemaker was discussed in detail with the patient and she is agreeable to go through with something will be left up to cardiology from here on. 04/17: Patient's heart rate remains in the 50s. Plan is for permanent pacemaker placement on Friday by Dr. JAE Jc. Patient is scheduled for hemodialysis today. BUN 38 and creatinine 5.74. She has been afebrile, blood pressure 157/61 , pulse ox 90% on room air. CBG is running 135 - 197. Patient is on her insulin pump. Patient denies chest pain or shortness of breath. 2/2: Patient resting in bed comfortably, denies any chest pain, dizziness, shortness breath, nausea or vomiting. Her heart rate is running in the 50s, blood pressure 140 /54, pulse ox 97% on room air. Plans is for permanent pacemaker placement for Friday, patient received dialysis yesterday. Objective - Vital Signs Vital signs: Vital Signs Temp 98.2 F 04/18/18 09:06 Pulse 52 L 04/18/18 09:06 Resp 18 04/18/18 09:06 BP 140/54 02/02/19 09:06 Pulse Ox 97 04/18/18 09:06 Intake & Output 04/17/18 04/18/18 04/18/18 18:59 06:59 18:59 Intake Total 600 120 Output Total 800 Balance -200 120 Intake: Intake, IV Titration 600 Amount Sodium Chloride 0.9% 1, 600 000 ml @ 50 mls/hr IV . Q20H [facility] Rx#:[id number] Oral 120 Output: Urine 800 Other: Voiding Method Toilet Toilet Toilet # Voids 1 - Constitutional General appearance: Present: cooperative, no acute distress - EENT Eyes: Present: EOMI, PERRLA ENT: Present: hearing grossly normal - Neck Neck: Present: normal ROM. Absent: lymphadenopathy, stridor, thyromegaly Thyroid: bilateral: normal size, negative: enlarged, nodule - Respiratory Respiratory: bilateral: CTA, negative: diminished, dullness, rales, rhonchi, wheezing - Cardiovascular Details: bradycardia heart rate of 52 Rhythm: irregularly irregular Heart sounds: normal: S1, S2 - Gastrointestinal General gastrointestinal: Present: normal bowel sounds, soft. Absent: distended , hepatomegaly, organomegaly, splenomegaly, tenderness - Neurologic Neurologic: Present: CNII-XII intact. Absent: focal deficits - Musculoskeletal Musculoskeletal: Present: generalized weakness, strength equal bilaterally. Absent: right sided weakness, left sided weakness - Psychiatric Psychiatric: Present: A&O x's 3, appropriate affect - Labs CBC & Chem 7: 04/15/18 15:47 04/18/18 07:35 Labs: Abnormal Lab Results - Last 24 Hours (Table) 04/17/18 04/17/18 04/17/18 Range/Units 11:35 16:15 21:05 Sodium (137-145) mmol/L Chloride (98-107) mmol/L BUN (7-17) mg/dL Creatinine (0.52-1.04) mg/dL Glucose (74-99) mg/dL POC Glucose (mg/dL) 178 H 114 H 211 H (75-99) mg/dL Calcium (8.4-10.2) mg/dL 04/18/18 04/18/18 Range/Units 06:40 07:35 Sodium 132 L (137-145) mmol/L Chloride 96 L (98-107) mmol/L BUN 27 H (7-17) mg/dL Creatinine 4.21 H (0.52-1.04) mg/dL Glucose 288 H (74-99) mg/dL POC Glucose (mg/dL) 310 H (75-99) mg/dL Calcium 7.9 L (8.4-10.2) mg/dL Assessment and Plan Plan: 1 Severe symptomaticbradycardia. Plan is for permanent pacemaker implantation on Friday with Dr. JAE Jc. Cardiology consult appreciated. Continue salvage winder on selective care, heart rate remains in the 50's. 2 Mildly elevated troponin, acute coronary syndrome ruled out. Cardiology consult appreciated. 3 History of CAD: Post [place] with multiple intervention in the past still seeing cardiology regular basis has been on medical management. 4 Type 2 diabetes: On insulin pump continue patient's management continue to check Accu-Chek with sliding scales coverage. 5 End-stage renal disease: Hemodialysis 3 times a week. Nephrology consult appreciated. Dialysis completed on Friday 6 Severe cardiomyopathy, mostly ischemic has been on medical management so far further intervention is not required at this point. 7 Hypertension: On amlodipine 10 mg a day, furosemide 80 mg twice a day. 8 Hyperlipidemia: Remain on atorvastatin 80 mg daily continue medication. 9 Hypothyroidism: Continue patient on Synthroid 200 g daily. 10 Bipolar disorder: Has been on Lamictal total of 250 mg a day along with BuSpar 15 mg twice a day. Discharge plan: Home with [facility]NA The above impression and plan of care have been discussed and directed by signing physician. Yana Vargas nurse practitioner acting as scribe for signing physician.
[2018-04-18 12:12] LABS: Glucose,Whole Blood 139 mg/dL (75-99)
--- NOTE | 2018-04-18 12:29 | P.PN ---
Subjective Progress Note Date: 04/18/18 Seen and examined for the follow-up of ESRD. Admitted with bradycardia and pacemaker on Friday. Objective - Vital Signs Vital signs: Vital Signs Temp 98.1 F 04/18/18 11:45 Pulse 55 L 04/18/18 11:45 Resp 18 04/18/18 11:45 BP 173/62 04/18/18 11:45 Pulse Ox 97 04/18/18 11:45 Intake & Output 04/17/18 04/18/18 04/18/18 18:59 06:59 18:59 Intake Total 600 120 Output Total 800 Balance -200 120 Intake: Intake, IV Titration 600 Amount Sodium Chloride 0.9% 1, 600 000 ml @ 50 mls/hr IV . Q20H [facility] Rx#:[id number] Oral 120 Output: Urine 800 Other: Voiding Method Toilet Toilet Toilet # Voids 1 - Exam No acute distress S1-S2 heard Lungs clear No edema, left upper lobe aVF - Labs CBC & Chem 7: 04/15/18 15:47 04/18/18 07:35 Labs: Abnormal Lab Results - Last 24 Hours (Table) 04/17/18 04/17/18 04/18/18 Range/Units 16:15 21:05 06:40 Sodium (137-145) mmol/L Chloride (98-107) mmol/L BUN (7-17) mg/dL Creatinine (0.52-1.04) mg/dL Glucose (74-99) mg/dL POC Glucose (mg/dL) 114 H 211 H 310 H (75-99) mg/dL Calcium (8.4-10.2) mg/dL 04/18/18 04/18/18 Range/Units 07:35 12:03 Sodium 132 L (137-145) mmol/L Chloride 96 L (98-107) mmol/L BUN 27 H (7-17) mg/dL Creatinine 4.21 H (0.52-1.04) mg/dL Glucose 288 H (74-99) mg/dL POC Glucose (mg/dL) 139 H (75-99) mg/dL Calcium 7.9 L (8.4-10.2) mg/dL Assessment and Plan Assessment: #1 dizziness secondary to bradycardia 2 ESRD MWF #3 hypertension with ESRD #4 metabolic bone disease with ESRD #5 diastolic CHF with CAD #6 anemia with ESRD Plan: #1 plan hemodialysis Friday #2 appreciate cardiology input awaiting pacemaker on Friday.
--- NOTE | 2018-04-18 14:59 | P.PN ---
Subjective Progress Note Date: 04/18/18 This is a pleasant 62-year-old female who follows with Dr. Jovana Jc in the office. She presented to the hospital following a syncopal episode. She also was found to be bradycardic. After [facility] did discuss the patient with Dr. Jovana Jc who plans on doing a pacemaker on Friday. She was seen and examined today, feels well, denies any dizziness or lightheadedness. Heart rate in the 70s to 80s today. Objective - Vital Signs Vital signs: Vital Signs Temp 98.1 F 04/18/18 11:45 Pulse 55 L 04/18/18 11:45 Resp 18 04/18/18 11:45 BP 173/62 04/18/18 11:45 Pulse Ox 97 04/18/18 11:45 Intake & Output 04/17/18 04/18/18 04/18/18 18:59 06:59 18:59 Intake Total 600 120 Output Total 800 Balance -200 120 Intake: Intake, IV Titration 600 Amount Sodium Chloride 0.9% 1, 600 000 ml @ 50 mls/hr IV . Q20H [facility] Rx#:[id number] Oral 120 Output: Urine 800 Other: Voiding Method Toilet Toilet Toilet # Voids 1 - Exam General Appearance: Alert, cooperative, no distress, obese. Neck HEENT: Supple, no lymphadenopathy, no thyroid enlargement, no carotid bruits. Lungs: decrease breath sound bilaterally with fine rhonchi's Chest Wall: normal expansion with deep inspiration slight discomfo and tenderness at the costocho in the left side, no deformity was found on exam, Heart: irregular rhythm and rate S1 with ejection systolic murmu Back: Symmetric, no curvature, ROM normal, no CVA tenderness. Abdomen: Soft, non-tender, bowel sounds active all four quadrants, no masses, no organomegaly. Extremities: Extremities normal, atraumatic, no cyanosis or edema.multiple arthritis sign in the knees hips and the large joint. Pulses: 2+ and symmetric. Skin: Skin color, texture, tugor normal, no rashes or lesions. Neurologic: Alert oriented x3 cranial nerves II through XII intact, positive for weakness especially in the lower extremities. - Labs CBC & Chem 7: 04/15/18 15:47 04/18/18 07:35 Labs: Abnormal Lab Results - Last 24 Hours (Table) 04/17/18 04/17/18 04/18/18 Range/Units 16:15 21:05 06:40 Sodium (137-145) mmol/L Chloride (98-107) mmol/L BUN (7-17) mg/dL Creatinine (0.52-1.04) mg/dL Glucose (74-99) mg/dL POC Glucose (mg/dL) 114 H 211 H 310 H (75-99) mg/dL Calcium (8.4-10.2) mg/dL 04/18/18 04/18/18 Range/Units 07:35 12:03 Sodium 132 L (137-145) mmol/L Chloride 96 L (98-107) mmol/L BUN 27 H (7-17) mg/dL Creatinine 4.21 H (0.52-1.04) mg/dL Glucose 288 H (74-99) mg/dL POC Glucose (mg/dL) 139 H (75-99) mg/dL Calcium 7.9 L (8.4-10.2) mg/dL Assessment and Plan Plan: Assessment and plan #1 Severe symptomaticbradycardia. Plan is for permanent pacemaker implantation on Friday with Dr. JAE Jc. #2 Mildly elevated troponin, acute coronary syndrome ruled out. #3 History of CAD: Post [place] with multiple intervention #4 Type 2 diabetes: #5 End-stage renal disease: Hemodialysis 3 times a week. #6 Severe cardiomyopathy, ischemic #7 Hypertension: #8 Hyperlipidemia: #9 Hypothyroidism: #10 Bipolar disorder: Plan We'll continue with current medications. Implantation of a permanent pacemaker on Friday. DNP note has been reviewed, I agree with a documented findings and plan of care. Patient was seen and examined.
[2018-04-18 17:21] LABS: Glucose,Whole Blood 188 mg/dL (75-99)
[2018-04-18] MEDS: ATORVASTATIN 80 MG TAB PO SCH (20:26)
[2018-04-18 20:30] LABS: Glucose,Whole Blood 228 mg/dL (75-99)
[2018-04-19] MEDS: SODIUM CHLORIDE 0.9% 1,000 ML IV SCH ×2 (01:45→20:58)
[2018-04-19 05:41] LABS: Glucose,Whole Blood 138 mg/dL (75-99)
[2018-04-19] MEDS: INSULIN PUMP MEAL BOLUS 1 UNIT MISC MISCELLANE SCH ×4 (05:46→23:34)
[2018-04-19] MEDS: CALCIUM ACETATE 667 MG CAP PO SCH ×3 (06:21→17:19)
[2018-04-19] MEDS: FUROSEMIDE 80 MG TAB PO SCH ×2 (06:21→15:31)
[2018-04-19] MEDS: LEVOTHYROXINE 100 MCG TAB PO SCH (06:22)
[2018-04-19 07:31] LABS: Potassium 4.9 mmol/L (3.5-5.1)
[2018-04-19] MEDS: amLODIPine 10 MG TAB PO SCH (08:35)
[2018-04-19] MEDS: busPIRone HCl 5 MG TAB PO SCH ×2 (08:35→20:02)
[2018-04-19] MEDS: ESCITALOPRAM 20 MG TAB PO SCH (08:35)
[2018-04-19] MEDS: ASPIRIN 81 MG PO SCH (08:36)
[2018-04-19] MEDS: LORazepam 0.5 MG TAB PO SCH ×2 (08:36→20:02)
[2018-04-19] MEDS: ISOSORBIDE MONONITRATE ER 30 MG TAB.ER.24H PO SCH (08:36)
[2018-04-19] MEDS: FAMOTIDINE 20 MG TAB PO SCH (08:36)
[2018-04-19] MEDS: CLOPIDOGREL 75 MG TAB PO SCH (08:36)
[2018-04-19] MEDS: lamoTRIgine 100 MG TAB PO SCH ×2 (08:37→20:02)
[2018-04-19] MEDS: SENNOSIDES 8.6 MG TAB PO SCH (09:00)
[2018-04-19] MEDS: HYDROcodone/APAP 7.5-325MG 1 EACH TAB PO SCH ×2 (09:00→20:02)
--- NOTE | 2018-04-19 10:40 | P.PN ---
Subjective 62-year-old female one of Dr. Gar's patient with past medical history of CAD/CHF,end-stage renal disease on hemodialysis 3 times a week, history of type 2 diabetes on insulin pump, history of morbid obesity post lap band, also multiple admission for chest pain, angina and non-ST LA who presented to the emergency department at [facility] complaining that she went to sleep last night with normal status to work up this morning feeling severely dizzy lightheaded and had presyncope-like symptoms. Patient become much worse with lightheadedness and dizziness after her hemodialysis ended up coming to demurs department surprisingly found to have severe bradycardia with pulse rate running in the 30s and 40s only with significant drop in blood pressure. Cardiology were contacted and decided to admit patient to the hospital to watch her on monitoring and evaluation advisor repeat her thyroid testing make sure her electrolytes and sodium along with magnesium are normal and revisit the idea whether doing a pacemaker is feasible. 04/16 The patient is feeling slightly bit better still on monitoring and evaluation advisor her thyroid testing came back negative, patient seen cardiology and discuss results in detail patient will need to have a permanent pacemaker to correct her severe bradycardia and to secure that she is again have any further presyncope or severe dizziness episode like she had. The morbidity and mortality of pacemaker was discussed in detail with the patient and she is agreeable to go through with something will be left up to cardiology from here on. 04/17: Patient's heart rate remains in the 50s. Plan is for permanent pacemaker placement on Friday by Dr. JAE Jc. Patient is scheduled for hemodialysis today. BUN 38 and creatinine 5.74. She has been afebrile, blood pressure 157/61 , pulse ox 90% on room air. CBG is running 135 - 197. Patient is on her insulin pump. Patient denies chest pain or shortness of breath. 22: Patient resting in bed comfortably, denies any chest pain, dizziness, shortness breath, nausea or vomiting. Her heart rate is running in the 50s, blood pressure 140 /54, pulse ox 97% on room air. Plans is for permanent pacemaker placement for Friday, patient received dialysis yesterday. 04/19: Patient evaluated, resting in the bed comfortably. Plans for permanent pacemaker on Friday. She denies any shortness of breath, chest pain, nausea, vomiting, dizziness or syncope. Vital signs are stable, heart rate remains in the 50's. Hemodialysis planned for Friday as well. Objective - Vital Signs Vital signs: Vital Signs Temp 98 F 04/19/18 03:05 Pulse 52 L 04/19/18 03:05 Resp 18 04/19/18 03:05 BP 147/62 04/19/18 03:05 Pulse Ox 98 04/19/18 03:05 Intake & Output 04/18/18 04/19/18 04/19/18 18:59 06:59 18:59 Weight 99.8 kg Other: Voiding Method Toilet Toilet # Voids 1 - Exam - Constitutional General appearance: Present: cooperative, no acute distress - EENT Eyes: Present: EOMI, PERRLA ENT: Present: hearing grossly normal - Neck Neck: Present: normal ROM. Absent: lymphadenopathy, stridor, thyromegaly Thyroid: bilateral: normal size, negative: enlarged, nodule - Respiratory Respiratory: bilateral: CTA, negative: diminished, dullness, rales, rhonchi, wheezing - Cardiovascular Details: bradycardia heart rate of 51 Rhythm: irregularly irregular Heart sounds: normal: S1, S2 - Gastrointestinal General gastrointestinal: Present: normal bowel sounds, soft. Absent: distended , hepatomegaly, organomegaly, splenomegaly, tenderness - Neurologic Neurologic: Present: CNII-XII intact. Absent: focal deficits - Musculoskeletal Musculoskeletal: Present: generalized weakness, strength equal bilaterally. Absent: right sided weakness, left sided weakness - Psychiatric Psychiatric: Present: A&O x's 3, appropriate affect - Labs CBC & Chem 7: 04/15/18 15:47 04/19/18 06:35 Labs: Abnormal Lab Results - Last 24 Hours (Table) 04/18/18 04/18/18 04/18/18 Range/Units 07:35 12:03 16:29 Sodium 132 L (137-145) mmol/L Chloride 96 L (98-107) mmol/L BUN 27 H (7-17) mg/dL Creatinine 4.21 H (0.52-1.04) mg/dL Glucose 288 H (74-99) mg/dL POC Glucose (mg/dL) 139 H 188 H (75-99) mg/dL Calcium 7.9 L (8.4-10.2) mg/dL 04/18/18 04/19/18 04/19/18 Range/Units 20:18 05:40 06:35 Sodium 133 L (137-145) mmol/L Chloride 96 L (98-107) mmol/L BUN 41 H (7-17) mg/dL Creatinine 6.15 H (0.52-1.04) mg/dL Glucose 167 H (74-99) mg/dL POC Glucose (mg/dL) 228 H 138 H (75-99) mg/dL Calcium 8.0 L (8.4-10.2) mg/dL Assessment and Plan Plan: 1 Severe symptomatic bradycardia. Plan is for permanent pacemaker implantation on Friday with Dr. JAE Jc. Cardiology consult appreciated. Continue monitoring and evaluation advisor on selective care, heart rate remains in the 50's. 2 Mildly elevated troponin, acute coronary syndrome ruled out. Cardiology consult appreciated. 3 History of CAD: Post LA with multiple intervention in the past still seeing cardiology regular basis has been on medical management. 4 Type 2 diabetes: On insulin pump continue patient's management continue to check Accu-Chek with sliding scales coverage. 5 End-stage renal disease: Hemodialysis 3 times a week. Nephrology consult appreciated. Last dialysis completed on Friday, next hemodialysis scheduled for Friday 6 Severe cardiomyopathy, mostly ischemic has been on medical management so far further intervention is not required at this point. 7 Hypertension: On amlodipine 10 mg a day, furosemide 80 mg twice a day. 8 Hyperlipidemia: Remain on atorvastatin 80 mg daily continue medication. 9 Hypothyroidism: Continue patient on Synthroid 200 g daily. 10 Bipolar disorder: Has been on Lamictal total of 250 mg a day along with BuSpar 15 mg twice a day. Discharge plan: Home with [facility]NA The above impression and plan of care have been discussed and directed by signing physician. Yana Vargas nurse practitioner acting as scribe for signing physician.
--- NOTE | 2018-04-19 11:31 | P.PN ---
Subjective Progress Note Date: 04/19/18 Seen and examined for the follow-up of ESRD. Admitted with bradycardia and pacemaker on Friday. Objective - Vital Signs Vital signs: Vital Signs Temp 98.0 F 04/19/18 08:00 Pulse 50 L 04/19/18 08:00 Resp 18 04/19/18 08:00 BP 148/54 04/19/18 08:00 Pulse Ox 94 L 04/19/18 08:00 Intake & Output 04/18/18 04/19/18 04/19/18 18:59 06:59 18:59 Weight 99.8 kg Other: Voiding Method Toilet Toilet Toilet # Voids 1 - Exam No acute distress S1-S2 heard Lungs clear No edema, left upper arm aVF - Labs CBC & Chem 7: 04/15/18 15:47 04/19/18 06:35 Labs: Abnormal Lab Results - Last 24 Hours (Table) 04/18/18 04/18/18 04/18/18 Range/Units 12:03 16:29 20:18 Sodium (137-145) mmol/L Chloride (98-107) mmol/L BUN (7-17) mg/dL Creatinine (0.52-1.04) mg/dL Glucose (74-99) mg/dL POC Glucose (mg/dL) 139 H 188 H 228 H (75-99) mg/dL Calcium (8.4-10.2) mg/dL 04/19/18 04/19/18 Range/Units 05:40 06:35 Sodium 133 L (137-145) mmol/L Chloride 96 L (98-107) mmol/L BUN 41 H (7-17) mg/dL Creatinine 6.15 H (0.52-1.04) mg/dL Glucose 167 H (74-99) mg/dL POC Glucose (mg/dL) 138 H (75-99) mg/dL Calcium 8.0 L (8.4-10.2) mg/dL Assessment and Plan Assessment: #1 dizziness secondary to bradycardia 2 ESRD MWF #3 hypertension with ESRD #4 metabolic bone disease with ESRD #5 diastolic CHF with CAD #6 anemia with ESRD Plan: #1 plan hemodialysis Friday #2 appreciate cardiology input awaiting pacemaker on Friday.
[2018-04-19 12:41] LABS: Glucose,Whole Blood 191 mg/dL (75-99)
--- NOTE | 2018-04-19 12:59 | PN ---
PROGRESS NOTE This is a 62-year-old lady with type 1 diabetes who has an insulin pump and also has end-stage renal disease on hemodialysis. She has CAD and underwent multiple PCI with the last stent in 2015. She also has underlying sick sinus syndrome and we have diligently held beta blockers for her. She also has symptomatic bradycardia whenever she is hyperkalemic. However, she has had an episode of near syncope and she had she had a couple of episodes of near syncope and 1 actual syncope that occurred with a heart rate in the mid to low 40s with a underlying junctional rhythm. This occurred in the setting when her thyroid functions were normal, she was not hyperkalemic and she was not on beta blockers. In view of her symptomatic bradycardia with ischemic junctional rhythm, I am recommending a dual-chamber pacemaker. I talked to the patient at length,the rationale, risks, benefits, and options. She had a hemodialysis shunt from the left side. I will perform the pacemaker from the right side and this will be a dual-chamber pacemaker. I explained to the patient the rationale, risks, benefits, options including the risk of infection, bleeding, damage to the artery, vein, the lungs as well as the cardiac perforation. She understands all details and wishes to proceed with the procedure which is scheduled for tomorrow. Hopefully we will have the dialysis done prior to the procedure. If not, it will be done soon after. Vital signs are stable. S1-S2 heard normally. Short systolic murmur is audible. Lungs are clear. Abdomen and lower exam is unchanged. Plan is to proceed with permanent dual-chamber pacemaker tomorrow. The patient understands all details and wishes to proceed. MMODL / IJN: [id number] /
--- NOTE | 2018-04-19 13:26 | P.PN ---
Subjective Progress Note Date: 04/19/18 Principal diagnosis: symptomatic bradycardia This is a pleasant 62-year-old female who follows with Dr. JAE Jc in the office. Presented to the hospital following a syncopal episode. She was found to be bradycardic. After evaluation and discussion with the patient and Dr. Jc, patient is planned for pacemaker insertion tomorrow. On examination today, patient is resting currently in bed. Vital signs remained stable at this time. She's had no further complaints of dizziness, lightheadedness, syncope or near syncope but has not been out of bed much. Objective - Vital Signs Vital signs: Vital Signs Temp 98.2 F 04/19/18 12:00 Pulse 51 L 04/19/18 12:00 Resp 18 04/19/18 12:00 BP 153/54 04/19/18 12:00 Pulse Ox 95 04/19/18 12:00 Intake & Output 04/18/18 04/19/18 04/19/18 18:59 06:59 18:59 Intake Total 150 Balance 150 Weight 99.8 kg Intake: Intake, IV Titration 150 Amount Sodium Chloride 0.9% 1, 150 000 ml @ 50 mls/hr IV . Q20H [facility] Rx#:[id number] Other: Voiding Method Toilet Toilet Toilet # Voids 1 - Exam PHYSICAL EXAMINATION: HEENT: Head is atraumatic, normocephalic. Pupils equal, round. Neck is supple. There is no elevated jugular venous pressure. HEART EXAMINATION: Heart sounds regular, S1 and S2 with a systolic murmur. CHEST EXAMINATION: Lungs are clear to auscultation and precussion. No chest wall tenderness is noted on palpation or with deep breathing. ABDOMEN: Soft, nontender. Bowel sounds are heard. No organomegaly noted. EXTREMITIES: 2+ peripheral pulses with no evidence of peripheral edema and no calf tenderness noted. Left upper arm AV fistula noted. NEUROLOGIC patient is awake, alert and oriented x3. . - Labs CBC & Chem 7: 04/15/18 15:47 04/19/18 06:35 Labs: Abnormal Lab Results - Last 24 Hours (Table) 04/18/18 04/18/18 04/19/18 Range/Units 16:29 20:18 05:40 Sodium (137-145) mmol/L Chloride (98-107) mmol/L BUN (7-17) mg/dL Creatinine (0.52-1.04) mg/dL Glucose (74-99) mg/dL POC Glucose (mg/dL) 188 H 228 H 138 H (75-99) mg/dL Calcium (8.4-10.2) mg/dL 04/19/18 04/19/18 Range/Units 06:35 12:23 Sodium 133 L (137-145) mmol/L Chloride 96 L (98-107) mmol/L BUN 41 H (7-17) mg/dL Creatinine 6.15 H (0.52-1.04) mg/dL Glucose 167 H (74-99) mg/dL POC Glucose (mg/dL) 191 H (75-99) mg/dL Calcium 8.0 L (8.4-10.2) mg/dL Assessment and Plan Assessment: #1 severe symptomatic bradycardia #2 mildly elevated troponin, not consistent with acute coronary syndrome #3 history of CAD, post-[place] with multiple interventions in the past #4 type 2 diabetes #5 end-stage renal disease on hemodialysis #6 hypertension #7 hyperlipidemia #8 hypothyroidism Plan: From cardiology perspective, medications are reviewed and will continue the same at this time. Plan for implantation of permanent pacemaker tomorrow with Dr. JAE Jc. Further recommendations to follow. [employer] note has been reviewed, I agree with a documented findings and plan of care. Patient was seen and examined.
[2018-04-19 17:02] LABS: Glucose,Whole Blood 120 mg/dL (75-99)
[2018-04-19] MEDS: ATORVASTATIN 80 MG TAB PO SCH (20:02)
[2018-04-20] MEDS: LEVOTHYROXINE 100 MCG TAB PO SCH (04:57)
[2018-04-20] MEDS: LORazepam 0.5 MG TAB PO SCH ×2 (04:58→19:58)
[2018-04-20] MEDS: busPIRone HCl 5 MG TAB PO SCH ×2 (04:58→19:58)
[2018-04-20] MEDS: HYDROcodone/APAP 7.5-325MG 1 EACH TAB PO SCH ×2 (04:58→19:58)
[2018-04-20] MEDS: lamoTRIgine 100 MG TAB PO SCH ×2 (04:58→19:58)
[2018-04-20] MEDS: FAMOTIDINE 20 MG TAB PO SCH (04:58)
[2018-04-20] MEDS: ISOSORBIDE MONONITRATE ER 30 MG TAB.ER.24H PO SCH (04:59)
[2018-04-20] MEDS: SENNOSIDES 8.6 MG TAB PO SCH (04:59)
[2018-04-20] MEDS: ESCITALOPRAM 20 MG TAB PO SCH (04:59)
[2018-04-20] MEDS: amLODIPine 10 MG TAB PO SCH (04:59)
[2018-04-20] MEDS: INSULIN PUMP MEAL BOLUS 1 UNIT MISC MISCELLANE SCH ×4 (05:02→20:09)
[2018-04-20] MEDS: FUROSEMIDE 80 MG TAB PO SCH ×2 (05:02→16:57)
[2018-04-20 05:03] LABS: Glucose,Whole Blood 47 mg/dL (75-99)
[2018-04-20] MEDS: CALCIUM ACETATE 667 MG CAP PO SCH ×3 (05:12→16:57)
[2018-04-20 05:43] LABS: Glucose,Whole Blood 77 mg/dL (75-99)
[2018-04-20 06:15] LABS: Glucose,Whole Blood 92 mg/dL (75-99)
[2018-04-20] MEDS ORDERED: diphenhydrAMINE 25 MG CAP PO STA ×2 (06:20→06:21)
[2018-04-20] MEDS ORDERED: CLINDAMYCIN 600 MG in SODIUM CHLORIDE 0.9% IRRIGATIO 250 ML IRRIGATION ONE (07:00)
[2018-04-20] MEDS ORDERED: CLINDAMYCIN 900 MG in DEXTROSE 5% IN WATER 50 ML IVPB ONE ×2 (07:00)
[2018-04-20 07:12] LABS: Calcium 7.9 mg/dL (8.4-10.2); Potassium 5.2 mmol/L (3.5-5.1)
[2018-04-20] MEDS ORDERED: methylPREDNISolone SOD SUCCI 125 MG/2 ML VIAL IV STA (09:30)
[2018-04-20] MEDS ORDERED: IOPAMIDOL-370 50ML BTL INJ ONE (10:30)
[2018-04-20] MEDS ORDERED: MIDAZOLAM 2 MG/2 ML VIAL IV ONE (10:38)
[2018-04-20] MEDS ORDERED: LIDOCAINE 1% INJ 10MG/ML (20 ML MDV) SQ ONE (10:38)
[2018-04-20] MEDS ORDERED: SODIUM CHLORIDE 0.9% 500 ML 500 ML IV ONE (10:39)
[2018-04-20] MEDS: HYDROmorphone 2 MG/ML 1 ML SYRINGE IV ONE ×3 (10:41→13:09)
[2018-04-20 13:35] LABS: Glucose,Whole Blood 117 mg/dL (75-99)
--- NOTE | 2018-04-20 13:38 | P.PN ---
Subjective Progress Note Date: 04/20/18 62-year-old female one of Dr. Gar's patient with past medical history of CAD/CHF,end-stage renal disease on hemodialysis 3 times a week, history of type 2 diabetes on insulin pump, history of morbid obesity post lap band, also multiple admission for chest pain, angina and non-ST [place] who presented to the emergency department at [facility] complaining that she went to sleep last night with normal status to work up this morning feeling severely dizzy lightheaded and had presyncope-like symptoms. Patient become much worse with lightheadedness and dizziness after her hemodialysis ended up coming to demurs department surprisingly found to have severe bradycardia with pulse rate running in the 30s and 40s only with significant drop in blood pressure. Cardiology were contacted and decided to admit patient to the hospital to watch her on engine monitor repeat her thyroid testing make sure her electrolytes and sodium along with magnesium are normal and revisit the idea whether doing a pacemaker is feasible. 04/16 The patient is feeling slightly bit better still on engine monitor her thyroid testing came back negative, patient seen cardiology and discuss results in detail patient will need to have a permanent pacemaker to correct her severe bradycardia and to secure that she is again have any further presyncope or severe dizziness episode like she had. The morbidity and mortality of pacemaker was discussed in detail with the patient and she is agreeable to go through with something will be left up to cardiology from here on. 04/17: Patient's heart rate remains in the 50s. Plan is for permanent pacemaker placement on Friday by Dr. JAE Jc. Patient is scheduled for hemodialysis today. BUN 38 and creatinine 5.74. She has been afebrile, blood pressure 157/61 , pulse ox 90% on room air. CBG is running 135 - 197. Patient is on her insulin pump. Patient denies chest pain or shortness of breath. 22: Patient resting in bed comfortably, denies any chest pain, dizziness, shortness breath, nausea or vomiting. Her heart rate is running in the 50s, blood pressure 140 /54, pulse ox 97% on room air. Plans is for permanent pacemaker placement for Friday, patient received dialysis yesterday. 04/19: Patient evaluated, resting in the bed comfortably. Plans for permanent pacemaker on Friday. She denies any shortness of breath, chest pain, nausea, vomiting, dizziness or syncope. Vital signs are stable, heart rate remains in the 50's. Hemodialysis planned for Friday as well. 04/20: Patient has gone for pacemaker. Heart rate remains in the 50s and 60s, afebrile, blood pressure 124/44, pulse ox 97% on room air. Lab work reveals sodium 131, potassium 5.2, chloride 95, BUN 52 and creatinine 7.5 one. Capillary blood glucose running between 47 and 117. Patient had hypoglycemia at 445 this morning. Hemodialysis is scheduled for today. Anticipate the patient will be ready for discharge by tomorrow. Review of systems: CONSTITUTIONAL: obese in no acute respiratory distress. Denies fever or chills. EYES: No icterus sclerae, no conjunctivitis. EARS, NOSE, MOUTH, THROAT, and FACE: No sore throat, lymphadenopathy, carotid bruits or deformity. RESPIRATORY: mild shortness of breath co. CARDIOVASCULAR: recurrent chest pain, an and significant shortness GASTROINTESTINAL: abdominal pain with nausea no vomiting GENITOURINARY: Negative for Hematuria or UTI, no kidney stones. INTEGUMENT/BREAST: Negative for any muscular injury with mild osteoarthritis. HEMATOLOGIC/LYMPHATIC: Negative for bleed or purpura. MUSCULOSKELTAL: Negative for Myalgia or arthralgia. NEURLOGICAL: presyncope, dizziness, worsening headache. BEHAVIORAL/PSYCH: Negative. ENDOCRINE: Negative Objective - Vital Signs Vital signs: Vital Signs Temp 98 F 04/20/18 03:04 Pulse 62 04/20/18 03:04 Resp 18 04/20/18 03:04 BP 167/78 04/20/18 03:04 Pulse Ox 95 04/20/18 03:04 Intake & Output 04/19/18 04/20/18 04/20/18 18:59 06:59 18:59 Intake Total 150 10 Balance 150 10 Weight 101.6 kg Intake: IV 10 Invasive Line 4 10 Intake, IV Titration 150 Amount Sodium Chloride 0.9% 1, 150 000 ml @ 50 mls/hr IV . Q20H [facility] Rx#:[id number] Other: Voiding Method Toilet Toilet # Voids 1 - Exam General appearance: Present: cooperative, no acute distress - EENT Eyes: Present: EOMI, PERRLA ENT: Present: hearing grossly normal - Neck Neck: Present: normal ROM. Absent: lymphadenopathy, stridor, thyromegaly Thyroid: bilateral: normal size, negative: enlarged, nodule - Respiratory Respiratory: bilateral: CTA, negative: diminished, dullness, rales, rhonchi, wheezing - Cardiovascular Details: bradycardia heart rate of 51 Rhythm: irregularly irregular Heart sounds: normal: S1, S2 - Gastrointestinal General gastrointestinal: Present: normal bowel sounds, soft. Absent: distended , hepatomegaly, organomegaly, splenomegaly, tenderness - Neurologic Neurologic: Present: CNII-XII intact. Absent: focal deficits - Musculoskeletal Musculoskeletal: Present: generalized weakness, strength equal bilaterally. Absent: right sided weakness, left sided weakness - Psychiatric Psychiatric: Present: A&O x's 3, appropriate affect - Labs CBC & Chem 7: 04/15/18 15:47 04/20/18 06:00 Labs: Abnormal Lab Results - Last 24 Hours (Table) 04/19/18 04/19/18 04/20/18 Range/Units 12:23 17:00 04:52 Sodium (137-145) mmol/L Potassium (3.5-5.1) mmol/L Chloride (98-107) mmol/L BUN (7-17) mg/dL Creatinine (0.52-1.04) mg/dL POC Glucose (mg/dL) 191 H 120 H 47 L (75-99) mg/dL Calcium (8.4-10.2) mg/dL 04/20/18 Range/Units 06:00 Sodium 131 L (137-145) mmol/L Potassium 5.2 H (3.5-5.1) mmol/L Chloride 95 L (98-107) mmol/L BUN 52 H (7-17) mg/dL Creatinine 7.51 H* (0.52-1.04) mg/dL POC Glucose (mg/dL) (75-99) mg/dL Calcium 7.9 L (8.4-10.2) mg/dL Assessment and Plan Plan: 1 Severe symptomaticbradycardia. Permanent pacemaker implantation with Dr. JAE Jc. Cardiology consult appreciated. Continue engine monitor on selective care. 2 Mildly elevated troponin, acute coronary syndrome ruled out. Cardiology consult appreciated. 3 History of CAD: Post [place] with multiple intervention in the past still seeing cardiology regular basis has been on medical management. 4 Type 2 diabetes uncontrolled with hypoglycemia: On insulin pump continue patient's management continue to check Accu-Chek with sliding scales coverage. 5 End-stage renal disease: Hemodialysis 3 times a week. Nephrology consult appreciated. Hemodialysis scheduled for today. 6 Severe cardiomyopathy, mostly ischemic has been on medical management so far further intervention is not required at this point. 7 Hypertension: On amlodipine 10 mg a day, furosemide 80 mg twice a day. 8 Hyperlipidemia: Remain on atorvastatin 80 mg daily continue medication. 9 Hypothyroidism: Continue patient on Synthroid 200 g daily. 10 Bipolar disorder: Has been on Lamictal total of 250 mg a day along with BuSpar 15 mg twice a day. Discharge plan: Home with [facility]NA most likely on Friday Impression and plan of care have been directed as dictated by the signing physician. Emely Contreras nurse practitioner acting as scribe for signing physician.
--- NOTE | 2018-04-20 14:01 | XR ---
EXAMINATION TYPE: XR chest 1V portable DATE OF EXAM: 04/20/2018 CLINICAL HISTORY: Lead placement check for arrhythmia. TECHNIQUE: Single AP portable upright view of the chest is obtained. COMPARISON: Chest x-ray from April 15, 2018 FINDINGS: There is new 2-lead pacemaker with leads projecting over right atrium and right ventricle but no lateral view to confirm. Cardiac silhouette size is stable and enlarged. Low lung volumes are redemonstrated with mild central vascular congestion improving from prior. No new focal airspace opac ity or pneumothorax is seen bilaterally. Osseous structures are intact. IMPRESSION: As above.
[2018-04-20] MEDS ORDERED: DESMOPRESSIN ACETATE 30 MCG in SODIUM CHLORIDE 0.9% 50 ML IVPB ONE (15:15)
[2018-04-20 15:39] LABS: HGB 10.3 gm/dL (11.4-16.0); RBC 3.54 m/uL (3.80-5.40); WBC 7.9 k/uL (3.8-10.6)
[2018-04-20 15:40] LABS: Anisocytosis Slight; Hypochromasia Moderate; MCHC 32.1 g/dL (31.0-37.0); MCV 90.3 fL (80.0-100.0); Mean Platelet Volume 7.8; Platelet Count 206 k/uL (150-450); RDW 17.8 % (11.5-15.5)
[2018-04-20 15:54] LABS: Calcium 8.3 mg/dL (8.4-10.2)
[2018-04-20] MEDS: SODIUM CHLORIDE 0.9% 1,000 ML IV SCH (16:02)
[2018-04-20 16:08] LABS: Potassium 5.7 mmol/L (3.5-5.1)
[2018-04-20 16:42] LABS: Glucose,Whole Blood 200 mg/dL (75-99)
[2018-04-20] MEDS: CLINDAMYCIN 900 MG in DEXTROSE 5% IN WATER 50 ML IVPB SCH ×4 (16:57→19:59)
[2018-04-20] MEDS: ACETAMINOPHEN TAB 325 MG TAB PO PRN (18:36)
--- NOTE | 2018-04-20 18:48 | PN ---
PROGRESS NOTE I came back this evening to see Ethel Marrufo around 6:10 pm. This lady had a permanent pacemaker 2 leads placed by me. The procedure was complicated with a lot of bleeding during the case, mostly oozing and also from the puncture site for the axillary vein access. I requested the help of Dr. Dupree. Finally, the hemostasis was achieved and she was sent to the room and then continued to have more bleeding. Dr. Dupree saw her. He gave some additional thrombin and re-dressed the area. Now the bleeding is well contained. She is not having any further oozing or bleeding. She is comfortable, hemodynamically stable. Heart rate is about 70, appears to be underlying atrial fib with ventricular paced beats. S1, S2 heard normally. Short systolic murmur is audible. Lungs revealed decent air entry. Chest x-ray does not reveal any complications related to the pacemaker. We will repeat another chest x-ray tomorrow and also do a device check in the morning. The patient remains hemodynamically stable and we will be watching her very closely. I discussed my thoughts in detail with the patient. She will probably be here for at least another 48 hours. She will be on antibiotics, clindamycin as ordered. MMODL / IJN: [id number] /
[2018-04-20 19:31] LABS: Glucose,Whole Blood 384 mg/dL (75-99)
--- NOTE | 2018-04-20 19:32 | PCN ---
PROCEDURE NOTE DATE OF SERVICE: 04/20/2018. PROCEDURE PERFORMED: Permanent dual-chamber pacemaker from right infraclavicular approach. PERFORMED BY: Dr. Ruthie Jc assisted by Dr. German Dupree. SEDATION: Moderate conscious sedation time was 2 hours and 30 minutes. The patient was administered Versed and fentanyl. Her oxygen saturation, hemodynamics and EKG were monitored closely. CLINICAL INFORMATION: Mrs. Ethel Marurfo is a 62-year-old lady with type 2 diabetes, end-stage renal disease on hemodialysis, who also has CAD with multivessel PCI. She is on aspirin, Plavix, and has dialysis with some platelet dysfunction. Because of significant symptomatic bradycardia, near syncope and known conduction system disease, she was advised a dual- chamber pacemaker. Risks, benefits, options were explained in detail with the patient and family. PROCEDURE NOTE: Under local anesthesia and strict aseptic precautions using a micropuncture needle technique, I obtained access to the right axillary vein. Subsequently a 3 inch linear incision was made medial and parallel to the right deltopectoral groove. Blunt dissection was carried on. There was significant amount of oozing. I obtained another access into the axillary vein, medial to the previous access. I advanced a 6-Icelandic introducer to the original access on the lateral aspect. There was no blood return and it appeared that there may have been an intimal injury, or we were not within the vein. I therefore took the sheath out and held manual pressure. Hemostasis was secured. I then went ahead and placed another venous sheath in the 2nd access point that I achieved. Good venous return was achieved on aspiration. I advanced 2 wires and then split this single access into 2 separate access and 2 6-Icelandic introducers were placed uneventfully. Patient continued to ooze quite a bit. Through the lateral leads, I advanced an active ventricular lead and positioned it after multiple attempts in the interventricular septum in the mid to apical septal region. Good thresholds and sensitivities were obtained. The patient was then in atrial fibrillation. Through the medial sheath, I placed the atrial lead. However, I could not get an atrial capture because patient was in atrial fibrillation. The sensitivities are about 1.1. Both the leads were secured to the underlying muscle. At this point, I requested the assistance of Dr. Dupree because there continued to be quite a bit of oozing and bleeding. Dr. Dupree came and applied some pledgets with thrombin-soaked pledgets to the site of bleeding and also applied a D-Stat. Moderate amount of oozing which was noted before seemed to improve. The pulse generator was then attached to the leads. The pulse generator was also secured to the underlying muscle. The pocket was closed in 2 layers. A drain was placed by Dr. Dupree in view of the hematoma. The patient was then sent to the room in a stable condition. I explained to the patient and family that there is significant amount of bleeding and a drain was placed and we will keep her for at least 48 hours and we will monitor her hemoglobin and look at the chest x- ray. The details of the procedure and the issues related to bleeding because of a combination of dialysis, aspirin and Plavix was explained to the family. Pacemaker information: Pulse generator mobile solutions architect [employer], model Assurity MRI 2272 serial number [id number]. The location of the implant right infraclavicular area. The atrial lead mobile solutions architect [employer] Tendril STS 2088 TC/46, serial number [id number]. Ventricular lead mobile solutions architect [employer], model Tendril STS 2088 TC/52, serial number [id number]. Location is in the interventricular septum at the mid septum. Atrial thresholds were not performed because patient was in atrial fibrillation. The P- waves were about 1.1 mV. Lead impedance was 440 ohms. Ventricular threshold was 0.75 V at 0.4 milliseconds. R-waves are more than 12.0. Lead impedance was 600 ohms. The patient was set at a backup rate of 50, low rate of 50, high rate of 110. A mode switch rate of 55 was set at. Patient tolerated the procedure well. Bleeding was an issue and this was contained with the help of Dr. Dupree and patient was sent to the room in a stable condition. MMODL / IJN: [id number] /
[2018-04-20] MEDS: ATORVASTATIN 80 MG TAB PO SCH (19:59)
[2018-04-21 05:26] LABS: Glucose,Whole Blood 405 mg/dL (75-99)
[2018-04-21] MEDS: CLINDAMYCIN 900 MG in DEXTROSE 5% IN WATER 50 ML IVPB SCH ×8 (06:09→22:19)
[2018-04-21] MEDS: CALCIUM ACETATE 667 MG CAP PO SCH ×3 (06:09→18:45)
[2018-04-21] MEDS: LEVOTHYROXINE 100 MCG TAB PO SCH (06:09)
[2018-04-21] MEDS: FUROSEMIDE 80 MG TAB PO SCH ×2 (06:09→12:08)
[2018-04-21] MEDS: INSULIN PUMP MEAL BOLUS 1 UNIT MISC MISCELLANE SCH ×4 (06:10→20:41)
[2018-04-21 07:30] LABS: Anisocytosis Slight; Basophils % (A) 0 %; Eosinophils % (A) 0 %; HCT 32.4 % (34.0-46.0); HGB 9.3 gm/dL (11.4-16.0); Hypochromasia Marked; Lymphocytes # (A) 0.5 k/uL (1.0-4.8); Lymphocytes % (A) 6 %; MCH 27.1 pg (25.0-35.0); MCHC 28.9 g/dL (31.0-37.0); MCV 93.9 fL (80.0-100.0); Mean Platelet Volume 7.9; Monocytes # (A) 0.5 k/uL (0-1.0); Monocytes % (A) 6 %; Neutrophils # (A) 6.7 k/uL (1.3-7.7); Neutrophils % (A) 87 %; Platelet Count 217 k/uL (150-450); RBC 3.45 m/uL (3.80-5.40); WBC 7.7 k/uL (3.8-10.6)
[2018-04-21] MEDS: SENNOSIDES 8.6 MG TAB PO SCH (09:42)
[2018-04-21] MEDS: ISOSORBIDE MONONITRATE ER 30 MG TAB.ER.24H PO SCH (09:42)
[2018-04-21] MEDS: LORazepam 0.5 MG TAB PO SCH ×2 (09:42→20:28)
[2018-04-21] MEDS: FAMOTIDINE 20 MG TAB PO SCH (09:42)
[2018-04-21] MEDS: busPIRone HCl 5 MG TAB PO SCH ×2 (09:42→20:27)
[2018-04-21] MEDS: amLODIPine 10 MG TAB PO SCH (09:43)
[2018-04-21] MEDS: lamoTRIgine 100 MG TAB PO SCH ×2 (09:43→20:28)
[2018-04-21] MEDS: ESCITALOPRAM 20 MG TAB PO SCH (09:43)
[2018-04-21] MEDS: HYDROcodone/APAP 7.5-325MG 1 EACH TAB PO SCH ×2 (09:44→18:45)
[2018-04-21 09:52] LABS: Glucose,Whole Blood 380 mg/dL (75-99)
[2018-04-21] MEDS: SODIUM CHLORIDE 0.9% 1,000 ML IV SCH (11:47)
--- NOTE | 2018-04-21 11:51 | XR ---
EXAMINATION TYPE: XR chest 2V DATE OF EXAM: 04/21/2018 COMPARISON: 04/20/2018 INDICATION: Lead placement check TECHNIQUE: Frontal and lateral views of the chest are obtained. FINDINGS: The heart size is normal. The pulmonary vasculature is normal. The lungs are clear. No pneumothorax is evident. Electronic device over the right chest. The placeme nts appear appropriate. IMPRESSION: 1. No acute pulmonary process. 2. No pneumothorax post pacemaker placement
[2018-04-21 12:35] LABS: Glucose,Whole Blood 173 mg/dL (75-99)
--- NOTE | 2018-04-21 14:47 | P.PN ---
Subjective Progress Note Date: 04/21/18 62-year-old female one of Dr. Gar's patient with past medical history of CAD/CHF,end-stage renal disease on hemodialysis 3 times a week, history of type 2 diabetes on insulin pump, history of morbid obesity post lap band, also multiple admission for chest pain, angina and non-ST MO who presented to the emergency department at [facility] complaining that she went to sleep last night with normal status to work up this morning feeling severely dizzy lightheaded and had presyncope-like symptoms. Patient become much worse with lightheadedness and dizziness after her hemodialysis ended up coming to demurs department surprisingly found to have severe bradycardia with pulse rate running in the 30s and 40s only with significant drop in blood pressure. Cardiology were contacted and decided to admit patient to the hospital to watch her on groundwater monitoring technician repeat her thyroid testing make sure her electrolytes and sodium along with magnesium are normal and revisit the idea whether doing a pacemaker is feasible. 04/16 The patient is feeling slightly bit better still on groundwater monitoring technician her thyroid testing came back negative, patient seen cardiology and discuss results in detail patient will need to have a permanent pacemaker to correct her severe bradycardia and to secure that she is again have any further presyncope or severe dizziness episode like she had. The morbidity and mortality of pacemaker was discussed in detail with the patient and she is agreeable to go through with something will be left up to cardiology from here on. 04/17: Patient's heart rate remains in the 50s. Plan is for permanent pacemaker placement on Friday by Dr. JAE Jc. Patient is scheduled for hemodialysis today. BUN 38 and creatinine 5.74. She has been afebrile, blood pressure 157/61 , pulse ox 90% on room air. CBG is running 135 - 197. Patient is on her insulin pump. Patient denies chest pain or shortness of breath. 22: Patient resting in bed comfortably, denies any chest pain, dizziness, shortness breath, nausea or vomiting. Her heart rate is running in the 50s, blood pressure 140 /54, pulse ox 97% on room air. Plans is for permanent pacemaker placement for Friday, patient received dialysis yesterday. 04/19: Patient evaluated, resting in the bed comfortably. Plans for permanent pacemaker on Friday. She denies any shortness of breath, chest pain, nausea, vomiting, dizziness or syncope. Vital signs are stable, heart rate remains in the 50's. Hemodialysis planned for Friday as well. 04/20: Patient has gone for pacemaker. Heart rate remains in the 50s and 60s, afebrile, blood pressure 124/44, pulse ox 97% on room air. Lab work reveals sodium 131, potassium 5.2, chloride 95, BUN 52 and creatinine 7.5 one. Capillary blood glucose running between 47 and 117. Patient had hypoglycemia at 445 this morning. Hemodialysis is scheduled for today. Anticipate the patient will be ready for discharge by tomorrow. 04/21 patient underwent permanent dual chamber pacemaker placement by Dr. JAE Jc yesterday which was assisted with Dr. Dupree due to bleeding and drain was required. Patient continued to need pressure placement when she arrived to the floor. Today, patient has significant ecchymosis to the whole right sided chest. Noted patient had elevated blood sugars from yesterday increasing with each check and is now at 405. Possibility the patient missed her boluses on her insulin pump. Dr. Gar assisted with a bolus at time of evaluation. Patient is complaining of significant pain for which [place] will be increased to 3 times daily. Anticipate discharge home tomorrow. Patient will require hemodialysis tomorrow prior to discharge. Review of systems: CONSTITUTIONAL: obese in no acute respiratory distress. Denies fever or chills. EYES: No icterus sclerae, no conjunctivitis. EARS, NOSE, MOUTH, THROAT, and FACE: No sore throat, lymphadenopathy, carotid bruits or deformity. RESPIRATORY: mild shortness of breath CARDIOVASCULAR: recurrent chest pain, an and significant shortness GASTROINTESTINAL: abdominal pain with nausea no vomiting GENITOURINARY: Negative for Hematuria or UTI, no kidney stones. INTEGUMENT/BREAST: Negative for any muscular injury with mild osteoarthritis. HEMATOLOGIC/LYMPHATIC: Negative for bleed or purpura. Reports bruising. MUSCULOSKELTAL: Negative for Myalgia or arthralgia. NEURLOGICAL: presyncope, dizziness, worsening headache. BEHAVIORAL/PSYCH: Negative. ENDOCRINE: Negative Objective - Vital Signs Vital signs: Vital Signs Temp 98 F 04/21/18 03:25 Pulse 56 L 04/21/18 03:25 Resp 18 04/21/18 03:25 BP 133/63 04/21/18 03:25 Pulse Ox 94 L 04/21/18 03:25 Intake & Output 04/20/18 04/21/18 04/21/18 18:59 06:59 18:59 Intake Total 750 180 Balance 750 180 Weight 98.9 kg Intake: IV 256 Intake, IV Titration 50 Amount Clindamycin 900 mg In 50 Dextrose 5% in Water 50 ml @ 50 mls/hr IVPB Q6H CYNTHIA Rx#:[id number] Oral 444 180 Other: Voiding Method Toilet Toilet # Voids 1 0 - Exam General appearance: Present: cooperative, no acute distress - EENT Eyes: Present: EOMI, PERRLA ENT: Present: hearing grossly normal - Neck Neck: Present: normal ROM. Absent: lymphadenopathy, stridor, thyromegaly Thyroid: bilateral: normal size, negative: enlarged, nodule - Respiratory Respiratory: bilateral: CTA, negative: diminished, dullness, rales, rhonchi, wheezing - Cardiovascular Details: bradycardia heart rate of 51 Rhythm: irregularly irregular Heart sounds: normal: S1, S2 Significant ecchymosis to the right side of her chest wall. Drain in place. - Gastrointestinal General gastrointestinal: Present: normal bowel sounds, soft. Absent: distended , hepatomegaly, organomegaly, splenomegaly, tenderness - Neurologic Neurologic: Present: CNII-XII intact. Absent: focal deficits - Musculoskeletal Musculoskeletal: Present: generalized weakness, strength equal bilaterally. Absent: right sided weakness, left sided weakness - Psychiatric Psychiatric: Present: A&O x's 3, appropriate affect - Labs CBC & Chem 7: 04/21/18 06:17 04/20/18 14:35 Labs: Abnormal Lab Results - Last 24 Hours (Table) 04/20/18 04/20/18 04/20/18 Range/Units 13:33 14:35 14:35 RBC 3.54 L (3.80-5.40) m/uL Hgb 10.3 L (11.4-16.0) gm/dL Hct 32.0 L (34.0-46.0) % MCHC (31.0-37.0) g/dL RDW 17.8 H (11.5-15.5) % Lymphocytes # (1.0-4.8) k/uL Sodium 136 L (137-145) mmol/L Potassium 5.7 H (3.5-5.1) mmol/L Chloride 97 L (98-107) mmol/L BUN 22 H (7-17) mg/dL Creatinine 3.95 H (0.52-1.04) mg/dL Glucose 140 H (74-99) mg/dL POC Glucose (mg/dL) 117 H (75-99) mg/dL Calcium 8.3 L (8.4-10.2) mg/dL 04/20/18 04/20/18 04/21/18 Range/Units 16:40 19:30 05:23 RBC (3.80-5.40) m/uL Hgb (11.4-16.0) gm/dL Hct (34.0-46.0) % MCHC (31.0-37.0) g/dL RDW (11.5-15.5) % Lymphocytes # (1.0-4.8) k/uL Sodium (137-145) mmol/L Potassium (3.5-5.1) mmol/L Chloride (98-107) mmol/L BUN (7-17) mg/dL Creatinine (0.52-1.04) mg/dL Glucose (74-99) mg/dL POC Glucose (mg/dL) 200 H 384 H 405 H (75-99) mg/dL Calcium (8.4-10.2) mg/dL 04/21/18 Range/Units 06:17 RBC 3.45 L (3.80-5.40) m/uL Hgb 9.3 L (11.4-16.0) gm/dL Hct 32.4 L (34.0-46.0) % MCHC 28.9 L (31.0-37.0) g/dL RDW 18.0 H (11.5-15.5) % Lymphocytes # 0.5 L (1.0-4.8) k/uL Sodium (137-145) mmol/L Potassium (3.5-5.1) mmol/L Chloride (98-107) mmol/L BUN (7-17) mg/dL Creatinine (0.52-1.04) mg/dL Glucose (74-99) mg/dL POC Glucose (mg/dL) (75-99) mg/dL Calcium (8.4-10.2) mg/dL Assessment and Plan Plan: 1 Severe symptomaticbradycardia. Permanent pacemaker implantation with Dr. JAE Jc. Drain to be removed today Cardiology consult appreciated. Continue groundwater monitoring technician on selective care. 2 Mildly elevated troponin, acute coronary syndrome ruled out. Cardiology consult appreciated. 3 History of CAD: Post [place] with multiple intervention in the past still seeing cardiology regular basis has been on medical management. 4 Type 2 diabetes uncontrolled with hypoglycemia: On insulin pump continue patient's management continue to check Accu-Chek with sliding scales coverage. 5 End-stage renal disease: Hemodialysis 3 times a week. Nephrology consult appreciated. Hemodialysis scheduled for today. 6 Severe cardiomyopathy, mostly ischemic has been on medical management so far further intervention is not required at this point. 7 Hypertension: On amlodipine 10 mg a day, furosemide 80 mg twice a day. 8 Hyperlipidemia: Remain on atorvastatin 80 mg daily continue medication. 9 Hypothyroidism: Continue patient on Synthroid 200 g daily. 10 Bipolar disorder: Has been on Lamictal total of 250 mg a day along with BuSpar 15 mg twice a day. 11 anemia of chronic kidney disease with possibility of acute blood loss anemia. Continue to monitor. Discharge plan: Home with [facility] most likely on Friday Impression and plan of care have been directed as dictated by the signing physician. Emely Contreras nurse practitioner acting as scribe for signing physician.
--- NOTE | 2018-04-21 16:34 | P.PN ---
Subjective Progress Note Date: 04/21/18 Principal diagnosis: Patient underwent implantation of a permanent pacemaker yesterday by Dr. Jovana Jc. Dr. Dupree was called to the cardiac catheterization lab where he put a drain in place, patient was bleeding a significant amount. On arrival back to the room, patient had a dressing on place with the drain in place, and continues to have a significant amount of bleeding from several different areas , she developed a significantly large hematoma. Pressure was held and a pressure dressing was. Applied by Dr. Alvarez. The drain was removed. Her device was interrogated this morning and is functioning appropriately. Chest x- ray did not reveal any acute pulmonary process, no pneumothorax post pacemaker. Blood pressure 128/50 with a heart rate in the 50s, 99% on room air. Hemoglobin 9.3 today. Site of pacemaker implantation, majority of the swelling had decreased, no active bleeding this morning, very ecchymotic, small amount of swelling to the left side of the incision. This is a pleasant 62-year-old female who follows with Dr. Jovana Jc in the office. She presented to the hospital following a syncopal episode. She also was found to be bradycardic. After [facility] did discuss the patient with Dr. Jovana Jc who plans on doing a pacemaker on Friday. She was seen and examined today, feels well, denies any dizziness or lightheadedness. Heart rate in the 70s to 80s today. Objective - Vital Signs Vital signs: Vital Signs Temp 98.0 F 04/21/18 12:00 Pulse 53 L 04/21/18 12:00 Resp 18 04/21/18 12:00 BP 129/55 04/21/18 12:00 Pulse Ox 99 04/21/18 12:00 Intake & Output 04/20/18 04/21/18 04/21/18 18:59 06:59 18:59 Intake Total 750 360 Balance 750 360 Weight 98.9 kg Intake: IV 256 Intake, IV Titration 50 Amount Clindamycin 900 mg In 50 Dextrose 5% in Water 50 ml @ 50 mls/hr IVPB Q6H CYNTHIA Rx#:[id number] Oral 444 360 Other: Voiding Method Toilet Toilet Toilet # Voids 1 0 - Exam General Appearance: Alert, cooperative, no distress, obese. Neck HEENT: Supple, no lymphadenopathy, no thyroid enlargement, no carotid bruits. Lungs: decrease breath sound bilaterally with fine rhonchi's Chest Wall: normal expansion with deep inspiration slight discomfo and tenderness at the costocho in the left side, no deformity was found on exam, Heart: irregular rhythm and rate S1 with ejection systolic murmur Back: Symmetric, no curvature, ROM normal, no CVA tenderness. Abdomen: Soft, non-tender, bowel sounds active all four quadrants, no masses, no organomegaly. Extremities: Extremities normal, atraumatic, no cyanosis or edema.multiple arthritis sign in the knees hips and the large joint. Pulses: 2+ and symmetric. Skin: Skin color, texture, tugor normal, no rashes or lesions. Neurologic: Alert oriented x3 cranial nerves II through XII intact, positive for weakness especially in the lower extremities. Site of pacemaker implantation, significant ecchymosis, small amount of swelling - Labs CBC & Chem 7: 04/21/18 06:17 04/20/18 14:35 Labs: Abnormal Lab Results - Last 24 Hours (Table) 04/20/18 04/20/18 04/21/18 Range/Units 16:40 19:30 05:23 RBC (3.80-5.40) m/uL Hgb (11.4-16.0) gm/dL Hct (34.0-46.0) % MCHC (31.0-37.0) g/dL RDW (11.5-15.5) % Lymphocytes # (1.0-4.8) k/uL POC Glucose (mg/dL) 200 H 384 H 405 H (75-99) mg/dL 04/21/18 04/21/18 04/21/18 Range/Units 06:17 09:41 12:03 RBC 3.45 L (3.80-5.40) m/uL Hgb 9.3 L (11.4-16.0) gm/dL Hct 32.4 L (34.0-46.0) % MCHC 28.9 L (31.0-37.0) g/dL RDW 18.0 H (11.5-15.5) % Lymphocytes # 0.5 L (1.0-4.8) k/uL POC Glucose (mg/dL) 380 H 173 H (75-99) mg/dL Assessment and Plan Plan: Assessment and plan #1 Severe symptomaticbradycardia. Status post implantation of permanent pacemaker with subsequent bleeding and development of hematoma, status post drain placement and pressure dressing #2 Mildly elevated troponin, acute coronary syndrome ruled out. #3 History of CAD: Post [place] with multiple intervention #4 Type 2 diabetes: #5 End-stage renal disease: Hemodialysis 3 times a week. #6 Severe cardiomyopathy, ischemic #7 Hypertension: #8 Hyperlipidemia: #9 Hypothyroidism: #10 Bipolar disorder: Plan We'll continue with current medications. Device was interrogated and is functioning appropriately. Chest x-ray did not reveal any evidence of a pneumothorax. A new dressing was applied with a pressure bandage, we'll reevaluate in the morning reassess CBC in the morning. DNP note has been reviewed, I agree with a documented findings and plan of care. Patient was seen and examined.
[2018-04-21 17:02] LABS: Glucose,Whole Blood 103 mg/dL (75-99)
[2018-04-21 20:21] LABS: Glucose,Whole Blood 271 mg/dL (75-99)
[2018-04-21] MEDS: ATORVASTATIN 80 MG TAB PO SCH (20:28)
[2018-04-21] MEDS: ACETAMINOPHEN TAB 325 MG TAB PO PRN (20:29)
--- NOTE | 2018-04-21 21:37 | PN ---
PROGRESS NOTE Patient is seen for followup for end-stage renal disease. She is currently comfortable. Patient denies any complaints. She did have bleeding from the pacemaker site yesterday and did receive a dose of DDAVP. Bleeding has stopped now. PHYSICAL EXAMINATION: Blood pressure was 129/55, heart rate 53 per minute. Patient is afebrile. Examination of the heart S1, S2. Examination lungs bilateral breath sounds are heard. Abdomen is soft, nontender. Examination lower extremities shows edema 1+ bilaterally. DIE PRESS OPERATOR exam is grossly intact. There is bruising noted at the site of the pacemaker. No active bleeding noted at this time. DIE PRESS OPERATOR exam is grossly intact. LABS SHOW: Hemoglobin 9.3 g/dL. ASSESSMENT: 1. End-stage renal disease, on hemodialysis on a Friday, Friday, Friday schedule. Patient will be dialyzed tomorrow. We will increase UF to 3-4 L as tolerated. 2. Bleeding at the site of the pacemaker status post DDAVP, currently stopped. We will repeat a CBC in a.m. 3. Hyperkalemia status post dialysis. We will repeat labs in a.m. 4. Volume overload. Increase UF as tolerated with hemodialysis tomorrow. 5. CKD mineral bone disorder. PLAN: Hemodialysis in a.m. Increase UF as tolerated. MMODL / IJN: [id number] /
[2018-04-22] MEDS: CLINDAMYCIN 900 MG in DEXTROSE 5% IN WATER 50 ML IVPB SCH ×4 (05:00→05:05)
[2018-04-22] MEDS: HYDROcodone/APAP 7.5-325MG 1 EACH TAB PO SCH ×2 (05:04→06:05)
[2018-04-22] MEDS: CALCIUM ACETATE 667 MG CAP PO SCH ×2 (05:04→12:47)
[2018-04-22] MEDS: LEVOTHYROXINE 100 MCG TAB PO SCH (05:04)
[2018-04-22] MEDS: FUROSEMIDE 80 MG TAB PO SCH (05:05)
[2018-04-22 05:08] LABS: Glucose,Whole Blood 49 mg/dL (75-99)
[2018-04-22 05:08] LABS: Glucose,Whole Blood 126 mg/dL (75-99)
[2018-04-22] MEDS: INSULIN PUMP MEAL BOLUS 1 UNIT MISC MISCELLANE SCH (05:09)
[2018-04-22 07:01] LABS: Anisocytosis Slight; HCT 28.5 % (34.0-46.0); Hypochromasia Slight; MCH 28.7 pg (25.0-35.0); MCHC 31.6 g/dL (31.0-37.0); MCV 90.9 fL (80.0-100.0); Mean Platelet Volume 7.5; Platelet Count 172 k/uL (150-450); RBC 3.13 m/uL (3.80-5.40); RDW 18.4 % (11.5-15.5); WBC 5.5 k/uL (3.8-10.6)
[2018-04-22 09:02] VITALS: RESP 20
[2018-04-22 10:30] LABS: Glucose,Whole Blood 173 mg/dL (75-99)
[2018-04-22 11:38] LABS: Glucose,Whole Blood 143 mg/dL (75-99)
[2018-04-22 12:26] VITALS: BP 137/45; PULSE 54; TEMP 97.6
[2018-04-22] MEDS: LORazepam 0.5 MG TAB PO SCH (12:47)
[2018-04-22] MEDS: FAMOTIDINE 20 MG TAB PO SCH (12:47)
[2018-04-22] MEDS: busPIRone HCl 5 MG TAB PO SCH (12:47)
[2018-04-22] MEDS: amLODIPine 10 MG TAB PO SCH (12:47)
[2018-04-22] MEDS: SENNOSIDES 8.6 MG TAB PO SCH (12:48)
[2018-04-22] MEDS: ISOSORBIDE MONONITRATE ER 30 MG TAB.ER.24H PO SCH (12:48)
[2018-04-22] MEDS: ESCITALOPRAM 20 MG TAB PO SCH (12:48)
[2018-04-22] MEDS: lamoTRIgine 100 MG TAB PO SCH (12:48)
--- NOTE | 2018-04-22 12:51 | P.DS ---
Providers Date of admission: 04/15/18 17:51 Expected date of discharge: 04/22/18 Attending physician: Josué Akers Consults: 04/15/18 17:54 Consult Physician Routine Consulting Provider: Jeromy Smith Consult Reason/Comments: Bradycardia Do you want consulting provider notified?: Already Contacted Consult Physician Routine Consulting Provider: Cherie Talley Consult Reason/Comments: ESRD Do you want consulting provider notified?: Yes Primary care physician: Kimberli Gar Hospital Course: 62-year-old female one of Dr. Gar's patient with past medical history of CAD/CHF,end-stage renal disease on hemodialysis 3 times a week, history of type 2 diabetes on insulin pump, history of morbid obesity post lap band, also multiple admission for chest pain, angina and non-ST [place] who presented to the emergency department at [facility] complaining that she went to sleep last night with normal status to work up this morning feeling severely dizzy lightheaded and had presyncope-like symptoms. Patient become much worse with lightheadedness and dizziness after her hemodialysis ended up coming to demurs department surprisingly found to have severe bradycardia with pulse rate running in the 30s and 40s only with significant drop in blood pressure. Cardiology were contacted and decided to admit patient to the hospital to watch her on athletic monitor repeat her thyroid testing make sure her electrolytes and sodium along with magnesium are normal and revisit the idea whether doing a pacemaker is feasible. 04/16 The patient is feeling slightly bit better still on athletic monitor her thyroid testing came back negative, patient seen cardiology and discuss results in detail patient will need to have a permanent pacemaker to correct her severe bradycardia and to secure that she is again have any further presyncope or severe dizziness episode like she had. The morbidity and mortality of pacemaker was discussed in detail with the patient and she is agreeable to go through with something will be left up to cardiology from here on. 04/17: Patient's heart rate remains in the 50s. Plan is for permanent pacemaker placement on Friday by Dr. JAE Jc. Patient is scheduled for hemodialysis today. BUN 38 and creatinine 5.74. She has been afebrile, blood pressure 157/61 , pulse ox 90% on room air. CBG is running 135 - 197. Patient is on her insulin pump. Patient denies chest pain or shortness of breath. 2/2: Patient resting in bed comfortably, denies any chest pain, dizziness, shortness breath, nausea or vomiting. Her heart rate is running in the 50s, blood pressure 140 /54, pulse ox 97% on room air. Plans is for permanent pacemaker placement for Friday, patient received dialysis yesterday. 04/19: Patient evaluated, resting in the bed comfortably. Plans for permanent pacemaker on Friday. She denies any shortness of breath, chest pain, nausea, vomiting, dizziness or syncope. Vital signs are stable, heart rate remains in the 50's. Hemodialysis planned for Friday as well. 04/20: Patient has gone for pacemaker. Heart rate remains in the 50s and 60s, afebrile, blood pressure 124/44, pulse ox 97% on room air. Lab work reveals sodium 131, potassium 5.2, chloride 95, BUN 52 and creatinine 7.5 one. Capillary blood glucose running between 47 and 117. Patient had hypoglycemia at 445 this morning. Hemodialysis is scheduled for today. Anticipate the patient will be ready for discharge by tomorrow. 04/21 patient underwent permanent dual chamber pacemaker placement by Dr. JAE Jc yesterday which was assisted with Dr. Dupree due to bleeding and drain was required. Patient continued to need pressure placement when she arrived to the floor. Today, patient has significant ecchymosis to the whole right sided chest. Noted patient had elevated blood sugars from yesterday increasing with each check and is now at 405. Possibility the patient missed her boluses on her insulin pump. Dr. Gar assisted with a bolus at time of evaluation. Patient is complaining of significant pain for which [place] will be increased to 3 times daily. Anticipate discharge home tomorrow. Patient will require hemodialysis tomorrow prior to discharge. 04/22: Patient states she is feeling better today. She did have a low blood sugar this morning at 5 AM but otherwise blood sugars have been improved. Cardiology has evaluated the patient will plan for follow-up with Dr. JAE Jc. Hemoglobin today is at night. Patient will be discharged home today in stable condition. She is currently undergoing hemodialysis. Discharge diagnoses: 1 Severe symptomatic bradycardia status post permanent pacemaker implantation with Dr. JAE Jc. 2 Mildly elevated troponin, acute coronary syndrome ruled out. 3 History of CAD: Post [place] with multiple intervention in the past 4 Type 2 diabetes uncontrolled with hypoglycemia and hyperglycemia: On insulin pump 5 End-stage renal disease: Hemodialysis 6 Severe cardiomyopathy, ischemic 7 Hypertension 8 Hyperlipidemia: 9 Hypothyroidism 10 Bipolar disorder 11 Anemia of chronic kidney disease Discharge plan: Home with [facility] Impression and plan of care have been directed as dictated by the signing physician. Emely Contreras nurse practitioner acting as scribe for signing physician. Patient Condition at Discharge: Good Plan - Discharge Summary Discharge Rx Participant: No New Discharge Prescriptions: New Calcium Acetate [PhosLo] 667 mg PO TID-W/MEALS cap Continue Famotidine [Pepcid] 20 mg PO DAILY@0800 busPIRone HCL 15 mg PO BID@0800,2100 Escitalopram [Lexapro] 20 mg PO DAILY@0800 Aspirin EC [Ecotrin Low Dose] 81 mg PO QAM amLODIPine [Norvasc] 10 mg PO DAILY@0900 Atorvastatin [Lipitor] 80 mg PO HS@2100 Isosorbide Mononitrate ER [Imdur] 30 mg PO DAILY@0800 Clopidogrel [Plavix] 75 mg PO DAILY lamoTRIgine [LaMICtal] 100 mg PO DAILY@0800 lamoTRIgine [LaMICtal] 150 mg PO HS@2100 Levothyroxine Sodium [Synthroid] 200 mcg PO DAILY@0600 Insulin Aspart (For Pump) [NovoLOG (For Pump)] 0.01 unit SQ-PUMP CONTINUOUS Furosemide [Lasix] 80 mg PO BID@0600,1400 LORazepam [Ativan] 0.5 mg PO BID@0800,2100 Orphenadrine [Norflex] 100 mg PO Q12H PRN PRN Reason: Muscle Spasm Discharge Medication List Famotidine [Pepcid] 20 mg PO DAILY@0800 04/29/14 [History] Aspirin EC [Ecotrin Low Dose] 81 mg PO QAM 01/01/16 [History] Escitalopram [Lexapro] 20 mg PO DAILY@0800 01/01/16 [History] busPIRone HCL 15 mg PO BID@0800,2100 01/01/16 [History] Atorvastatin [Lipitor] 80 mg PO HS@2100 12/27/16 [History] amLODIPine [Norvasc] 10 mg PO DAILY@0900 12/27/16 [History] Clopidogrel [Plavix] 75 mg PO DAILY 03/21/17 [History] Isosorbide Mononitrate ER [Imdur] 30 mg PO DAILY@0800 03/21/17 [History] lamoTRIgine [LaMICtal] 100 mg PO DAILY@0800 07/01/17 [History] lamoTRIgine [LaMICtal] 150 mg PO HS@209907/01/17 [History] Insulin Aspart (For Pump) [NovoLOG (For Pump)] 0.01 unit SQ-PUMP CONTINUOUS 12/02 [History] Levothyroxine Sodium [Synthroid] 200 mcg PO DAILY@0600 09/22/17 [History] Furosemide [Lasix] 80 mg PO BID@0600,1400 10/13/17 [History] LORazepam [Ativan] 0.5 mg PO BID@0800,2100 10/13/17 [History] Orphenadrine [Norflex] 100 mg PO Q12H PRN 04/15/18 [History] Calcium Acetate [PhosLo] 667 mg PO TID-W/MEALS cap 04/22/18 [Rx] Follow up Appointment(s)/Referral(s): Delmi Goel MD [Medical Doctor] - 04/30/18 9:30 am () Carmen Jc MD [Family Provider] - 04/28/18 4:00 pm (DEVICE CHECK) [facility] Visiting Nurse, [NON-STAFF] - Patient Instructions/Handouts: Pacemaker (DC) Activity/Diet/Wound Care/Special Instructions: Keep pacemaker site covered and dry for 10 days. Resume Plavix and aspirin if ok w Cardiology Discharge Disposition: HOME WITH HOME HEALTH SERVICES
--- NOTE | 2018-04-22 14:19 | P.PN ---
Subjective Progress Note Date: 04/22/18 Principal diagnosis: Patient underwent implantation of a permanent pacemaker yesterday by Dr. Jovana Jc. Dr. Dupree was called to the cardiac catheterization lab where he put a drain in place, patient was bleeding a significant amount. On arrival back to the room, patient had a dressing on place with the drain in place, and continues to have a significant amount of bleeding from several different areas , she developed a significantly large hematoma. Pressure was held and a pressure dressing was. Applied by Dr. Alvarez. The drain was removed. Her device was interrogated this morning and is functioning appropriately. Chest x- ray did not reveal any acute pulmonary process, no pneumothorax post pacemaker. Blood pressure 128/50 with a heart rate in the 50s, 99% on room air. Hemoglobin 9.3 today. Site of pacemaker implantation, majority of the swelling had decreased, no active bleeding this morning, very ecchymotic, small amount of swelling to the left side of the incision. This is a pleasant 62-year-old female who follows with Dr. Jovana Jc in the office. She presented to the hospital following a syncopal episode. She also was found to be bradycardic. After [place] did discuss the patient with Dr. Jovana Jc who plans on doing a pacemaker on Friday. She was seen and examined today, feels well, denies any dizziness or lightheadedness. Heart rate in the 70s to 80s today. 04/22/2018 Patient seen and examined this morning, overall doing well. Undergoing dialysis at present. Hemoglobin today 9, blood pressure 148/60. From our perspective she may be able to be discharged once cleared by primary. We will make her a follow-up appointment with Dr. Jovana Jc in the device clinic post discharge. Objective - Vital Signs Vital signs: Vital Signs Temp 97.6 F 04/22/18 12:00 Pulse 54 L 04/22/18 12:00 Resp 20 04/22/18 12:00 BP 137/45 04/22/18 12:00 Pulse Ox 98 04/22/18 12:00 Intake & Output 04/21/18 04/22/18 04/22/18 18:59 06:59 18:59 Intake Total 960 100 420 Balance 960 100 420 Weight 100.3 kg 100.3 kg Intake: Intake, IV Titration 100 Amount Clindamycin 900 mg In 100 Dextrose 5% in Water 50 ml @ 50 mls/hr IVPB Q6H [facility] Rx#:[id number] Oral 960 420 Other: Voiding Method Toilet Toilet # Voids 0 0 - Exam General Appearance: Alert, cooperative, no distress, obese. Neck HEENT: Supple, no lymphadenopathy, no thyroid enlargement, no carotid bruits. Lungs: decrease breath sound bilaterally with fine rhonchi's Chest Wall: normal expansion with deep inspiration slight discomfo and tenderness at the costocho in the left side, no deformity was found on exam, Heart: irregular rhythm and rate S1 with ejection systolic murmur Back: Symmetric, no curvature, ROM normal, no CVA tenderness. Abdomen: Soft, non-tender, bowel sounds active all four quadrants, no masses, no organomegaly. Extremities: Extremities normal, atraumatic, no cyanosis or edema.multiple arthritis sign in the knees hips and the large joint. Pulses: 2+ and symmetric. Skin: Skin color, texture, tugor normal, no rashes or lesions. Neurologic: Alert oriented x3 cranial nerves II through XII intact, positive for weakness especially in the lower extremities. Site of pacemaker implantation, significant ecchymosis, small amount of swelling - Labs CBC & Chem 7: 04/22/18 05:47 04/20/18 14:35 Labs: Abnormal Lab Results - Last 24 Hours (Table) 04/21/18 04/21/18 04/22/18 Range/Units 16:49 20:19 04:56 RBC (3.80-5.40) m/uL Hgb (11.4-16.0) gm/dL Hct (34.0-46.0) % RDW (11.5-15.5) % POC Glucose (mg/dL) 103 H 271 H 49 L (75-99) mg/dL 04/22/18 04/22/18 04/22/18 Range/Units 04:58 05:47 10:28 RBC 3.13 L (3.80-5.40) m/uL Hgb 9.0 L (11.4-16.0) gm/dL Hct 28.5 L (34.0-46.0) % RDW 18.4 H (11.5-15.5) % POC Glucose (mg/dL) 126 H 173 H (75-99) mg/dL 04/22/18 Range/Units 11:36 RBC (3.80-5.40) m/uL Hgb (11.4-16.0) gm/dL Hct (34.0-46.0) % RDW (11.5-15.5) % POC Glucose (mg/dL) 143 H (75-99) mg/dL Assessment and Plan Plan: Assessment and plan #1 Severe symptomaticbradycardia. Status post implantation of permanent pacemaker with subsequent bleeding and development of hematoma, status post drain placement and pressure dressing #2 Mildly elevated troponin, acute coronary syndrome ruled out. #3 History of CAD: Post [place] with multiple intervention #4 Type 2 diabetes: #5 End-stage renal disease: Hemodialysis 3 times a week. #6 Severe cardiomyopathy, ischemic #7 Hypertension: #8 Hyperlipidemia: #9 Hypothyroidism: #10 Bipolar disorder: Plan We'll continue with current medications. Device was interrogated and is functioning appropriately. From cardiology's perspective, she may be be discharged home today. Follow-up appointment with Dr. Jovana Jc in the device clinic post discharge. DNP note has been reviewed, I agree with a documented findings and plan of care. Patient was seen and examined.
== END 2018-04-22 15:14 | disposition home health service (06) | DRG 242 ==
LOC: EC 15:12 → 3SCARD 17:51
PROVIDERS: ADMIT Internal Medicine Geriatric Medicine; ATTEND Internal Medicine Geriatric Medicine
PROC: 02H63JZ Insertion of Pacemaker Lead into Right Atrium, Percutaneous Approach (ICD-10-PCS; principal; 2018-04-15)
PROC: 0JH606Z Insertion of Pacemaker, Dual Chamber into Chest Subcutaneous Tissue and Fascia, Open Approach (ICD-10-PCS; principal; 2018-04-15)
PROC: 02HK3JZ Insertion of Pacemaker Lead into Right Ventricle, Percutaneous Approach (ICD-10-PCS; principal; 2018-04-15)
PROC: 5A1D70Z Performance of Urinary Filtration, Intermittent, Less than 6 Hours Per Day (ICD-10-PCS; 2018-04-16)
DX: I49.5 Sick sinus syndrome (principal); N18.6 End stage renal disease; I45.2 Bifascicular block; I13.2 Hypertensive heart and chronic kidney disease with heart failure and with stage 5 chronic kidney disease, or end stage renal disease; I50.32 Chronic diastolic (congestive) heart failure; I48.91 Unspecified atrial fibrillation; D63.1 Anemia in chronic kidney disease; E03.9 Hypothyroidism, unspecified; E10.22 Type 1 diabetes mellitus with diabetic chronic kidney disease; E10.649 Type 1 diabetes mellitus with hypoglycemia without coma; E10.65 Type 1 diabetes mellitus with hyperglycemia; E78.5 Hyperlipidemia, unspecified; E87.5 Hyperkalemia; E88.89 Other specified metabolic disorders; F31.9 Bipolar disorder, unspecified; I25.10 Atherosclerotic heart disease of native coronary artery without angina pectoris; I25.5 Ischemic cardiomyopathy; M89.9 Disorder of bone, unspecified; I25.2 Old myocardial infarction; Z96.41 Presence of insulin pump (external) (internal); Z79.02 Long term (current) use of antithrombotics/antiplatelets; Z79.4 Long term (current) use of insulin; Z79.82 Long term (current) use of aspirin; Z79.890 Hormone replacement therapy; Z79.899 Other long term (current) drug therapy; Z82.49 Family history of ischemic heart disease and other diseases of the circulatory system; Z83.3 Family history of diabetes mellitus; Z90.710 Acquired absence of both cervix and uterus; Z91.81 History of falling; Z95.5 Presence of coronary angioplasty implant and graft; Z98.84 Bariatric surgery status; Z99.2 Dependence on renal dialysis; Z88.0 Allergy status to penicillin; Z88.8 Allergy status to other drugs, medicaments and biological substances; Z91.041 Radiographic dye allergy status; Z90.49 Acquired absence of other specified parts of digestive tract; Z98.42 Cataract extraction status, left eye; Z98.41 Cataract extraction status, right eye
CPT/HCPCS: 33208; 36415; 70450; 71045; 71046; 80048; 80053; 82553; 83036; 83735; 84100; 84439; 84443; 84484; 85025; 85027; 85610; 85730; 86850; 86900; 86901; 90935; 93005; 99285

== ENCOUNTER 2018-06-29 08:22 | Emergency (ER) | payer MEDICARE, BC, OTHER ==
[2018-06-29 08:43] VITALS: PULSE 63
--- NOTE | 2018-06-29 08:54 | ED ---
General Adult HPI - General Chief complaint: Fall Stated complaint: fall Time Seen by Provider: 06/29/18 08:25 Source: patient Mode of arrival: EMS Limitations: no limitations - History of Present Illness Initial comments: Dictation was produced using [employer] dictation software. please excuse any grammatical, word or spelling errors. Chief Complaint: 63-year-old female with past medical history coronary artery disease, NC, dyslipidemia presents with headache pain after fall. History of Present Illness: Patient 63-year-old female she was brought in by EMS after fall. Patient states her walker slipped out from under her causing her to fall backwards. She states she fell and hit the back of her head. Denies any loss of consciousness. Patient states she has head pain and neck pain. She is here today reveals word that she has intracranial injury or neck injury. Patient is on Plavix and aspirin she is not on any anticoagulation medications. Patient states she is a little sore all over her body however doesn't feel like anything else is broken. The ROS documented in this emergency department record has been reviewed and confirmed by me. Those systems with pertinent positive or negative responses have been documented in the HPI. All other systems are other negative and/or noncontributory. PHYSICAL EXAM: General Impression: Alert and oriented x3, not in acute distress HEENT: 2 x 2 centimeters hematoma over the occiput extra-ocular movements intact, pupils equal and reactive to light bilaterally, mucous membranes moist, mild midline cervical tenderness Cardiovascular: Heart regular rate and rhythm, S1&S2 audible, no murmurs, rubs or gallops Chest: Lungs clear to auscultation bilaterally, no rhonchi, no wheeze, no rales Abdomen: Bowel sounds present, abdomen soft, non-tender, non-distended, no organomegaly Musculoskeletal: Pulses present and equal in all extremities, no peripheral edema, all extremities joints ranged with no pain. Motor: no focal deficits noted Neurological: CN II-XII grossly intact, no focal motor or sensory deficits noted Skin: Intact with no visualized rashes Psych: Normal affect and mood ED course: 63-year-old female presents after mechanical fall. She does have external signs of head injury. Vital signs upon arrival are within acceptable limits. Basic labs are unremarkable. Patient had dialysis Friday was a Friday. No hyperkalemia. CT imaging of the head and neck shows no acute processes. Chest x-ray and pelvis x-ray shows no acute traumatic injuries. Patient observed in emergency Department with changes in medical status. Patient advised to follow-up with dialysis center for dialysis tomorrow if she is unable to schedule dialysis today. Patient told to ice the area. - Related Data Home Medications Medication Instructions Recorded Confirmed Famotidine [Pepcid] 20 mg PO DAILY 04/29/14 06/29/18 Aspirin EC [Ecotrin Low Dose] 81 mg PO DAILY 01/01/16 06/29/18 Escitalopram [Lexapro] 20 mg PO DAILY 01/01/16 06/29/18 busPIRone HCL 15 mg PO BID 01/01/16 06/29/18 Atorvastatin [Lipitor] 80 mg PO HS 12/27/16 06/29/18 Clopidogrel [Plavix] 75 mg PO DAILY 03/21/17 06/29/18 Isosorbide Mononitrate ER [Imdur] 30 mg PO DAILY 03/21/17 06/29/18 lamoTRIgine [LaMICtal] 100 mg PO DAILY@0800 07/01/17 06/29/18 lamoTRIgine [LaMICtal] 150 mg PO HS@2100 07/01/17 06/29/18 Insulin Aspart (For Pump) [NovoLOG 0.01 unit SQ-PUMP CONTINUOUS 09/22/17 06/29/18 (For Pump)] Levothyroxine Sodium [Synthroid] 200 mcg PO DAILY@0600 09/22/17 06/29/18 Furosemide [Lasix] 80 mg PO BID@0600,1400 10/13/17 06/29/18 HYDROcodone/APAP 7.5-325MG [[place] 1 tab PO Q6H PRN 06/29/18 06/29/18 7.5-325] amLODIPine [Norvasc] 5 mg PO DAILY 06/29/18 06/29/18 Previous Rx's Medication Instructions Recorded Calcium Acetate [PhosLo] 667 mg PO TID-W/MEALS cap 04/22/18 Allergies Allergy/AdvReac Type Severity Reaction Status Date / Time adhesive Allergy Rash/Hives Verified 06/29/18 08:49 Iodinated Contrast- Oral and Allergy KIDNEY Verified 06/29/18 08:49 IV Dye FAILURE metformin Allergy SUGAR Verified 06/29/18 08:49 LEVEL INCREASE Penicillins Allergy Rash/Hives Verified 06/29/18 08:49 Review of Systems ROS Statement: Those systems with pertinent positive or pertinent negative responses have been documented in the HPI. ROS Other: All systems not noted in ROS Statement are negative. Past Medical History Past Medical History: Coronary Artery Disease (CAD), Diabetes Mellitus, Dialysis, Hyperlipidemia, Hypertension, Myocardial Infarction (NC), Osteoarthritis (OA), Thyroid Disorder Additional Past Medical History / Comment(s): per past medical charting pt's stated "pt has had 17 mi's". ischemic cardiomyopathy. NC in 2005 and September 2013, 12/29/15 STRESS WNL, Hepatitis A, ALLERGIC rhinitis,NC,ESRD/DIALYSIS- ON --, CARDIO-PULMONARY ARREST 07/05/14 and pt stated she has had short term memory problems since, vertigohypertensive nephrosclerosis, Hepatitis A,Vitamin D deficiency, constipation.dm- uses an insulin pump.HX OF FALLS, hx of a cat bit Last Myocardial Infarction Date:: 09/2013 History of Any Multi-Drug Resistant Organisms: MRSA Date of last positivie culture/infection: 09/27/17 MDRO Source:: rt breast Past Surgical History: Adenoidectomy, Appendectomy, Cholecystectomy, Heart Catheterization With Stent, Hysterectomy, Tonsillectomy Additional Past Surgical History / Comment(s): mary cataracts, LAP-BAND 2004, Laparoscopic cholecystectomy, FIBULA FX has metal pins in place,Left shoulder rene rgery, Hemodialysis Cataract bilateral with IOL, fistula and sx to" reroute it",gets dialysis fri-fri-fri. has insulin pump. no bp on left, excisional debreidment rt lower ext. Past Anesthesia/Blood Transfusion Reactions: Motion Sickness, Postoperative Nausea & Vomiting (PONV) Additional Past Anesthesia/Blood Transfusion Reaction / Comment(s): blood transfusion-pt stated they gave her medication for a reaction but does'nt rememebr what the reaction was Date of Last Stent Placement:: 2014 Past Psychological History: Anxiety, Bipolar, Depression Smoking Status: Never smoker - Past Family History Mother Family Medical History: Congestive Heart Failure (CHF), Diabetes Mellitus, Hypertension Father History Unknown: Yes Family Medical History: Diabetes Mellitus Brother(s) Family Medical History: Diabetes Mellitus, Hyperlipidemia Additional Family Medical History / Comment(s): Hypertension chronic kidney disease General Exam Limitations: no limitations Course Vital Signs 06/29/18 08:35 Temperature 98.1 F Pulse Rate 63 Respiratory 20 Rate Blood Pressure 157/70 O2 Sat by Pulse 98 Oximetry Medical Decision Making - Lab Data Result diagrams: 06/29/18 09:30 06/29/18 09:30 Lab Results 06/29/18 06/29/18 06/29/18 Range/Units 09:30 09:30 09:30 WBC 6.6 (3.8-10.6) k/uL RBC 4.14 (3.80-5.40) m/uL Hgb 11.8 (11.4-16.0) gm/dL Hct 37.7 (34.0-46.0) % MCV 91.0 (80.0-100.0) fL MCH 28.4 (25.0-35.0) pg MCHC 31.2 (31.0-37.0) g/dL RDW 17.5 H (11.5-15.5) % Plt Count 246 (150-450) k/uL Neutrophils % 80 % Lymphocytes % 9 % Monocytes % 5 % Eosinophils % 5 % Basophils % 0 % Neutrophils # 5.3 (1.3-7.7) k/uL Lymphocytes # 0.6 L (1.0-4.8) k/uL Monocytes # 0.3 (0-1.0) k/uL Eosinophils # 0.3 (0-0.7) k/uL Basophils # 0.0 (0-0.2) k/uL Hypochromasia Slight Anisocytosis Slight PT 10.3 (9.0-12.0) sec INR 1.0 (<1.2) Sodium 133 L (137-145) mmol/L Potassium 4.9 (3.5-5.1) mmol/L Chloride 94 L (98-107) mmol/L Carbon Dioxide 24 (22-30) mmol/L Anion Gap 15 mmol/L BUN 35 H (7-17) mg/dL Creatinine 6.92 H (0.52-1.04) mg/dL Est GFR (CKD-EPI)AfAm 7 (>60 ml/min/1.73 sqM) Est GFR (CKD-EPI)NonAf 6 (>60 ml/min/1.73 sqM) Glucose 205 H (74-99) mg/dL Calcium 7.8 L (8.4-10.2) mg/dL Magnesium 2.6 H (1.6-2.3) mg/dL Disposition Clinical Impression: Head contusion Disposition: HOME SELF-CARE Condition: Good Instructions (If sedation given, give patient instructions): Fall Prevention for Older Adults (ED) Is patient prescribed a controlled substance at d/c from ED?: No Referrals: Kimberli Gar MD [Primary Care Provider] - 1-2 days Time of Disposition: 11:40
[2018-06-29 09:42] LABS: Anisocytosis Slight; Basophils % (A) 0 %; Eosinophils # (A) 0.3 k/uL (0-0.7); Eosinophils % (A) 5 %; HCT 37.7 % (34.0-46.0); HGB 11.8 gm/dL (11.4-16.0); Hypochromasia Slight; Lymphocytes # (A) 0.6 k/uL (1.0-4.8); Lymphocytes % (A) 9 %; MCH 28.4 pg (25.0-35.0); MCHC 31.2 g/dL (31.0-37.0); Mean Platelet Volume 6.9; Monocytes # (A) 0.3 k/uL (0-1.0); Monocytes % (A) 5 %; Neutrophils # (A) 5.3 k/uL (1.3-7.7); Neutrophils % (A) 80 %; Platelet Count 246 k/uL (150-450); RBC 4.14 m/uL (3.80-5.40); RDW 17.5 % (11.5-15.5); WBC 6.6 k/uL (3.8-10.6)
[2018-06-29 09:51] LABS: Prothrombin Time 10.3 sec (9.0-12.0)
[2018-06-29] MEDS ORDERED: ACETAMINOPHEN TAB 325 MG TAB PO STA (09:53)
[2018-06-29 09:55] LABS: Calcium 7.8 mg/dL (8.4-10.2); Magnesium 2.6 mg/dL (1.6-2.3); Potassium 4.9 mmol/L (3.5-5.1)
--- NOTE | 2018-06-29 10:17 | CT ---
EXAMINATION TYPE: CT brain nicole wo con DATE OF EXAM: 06/29/2018 COMPARISON: Brain 04/15/2018 HISTORY: 63-year-old female Fall, bump back of head, neck pain CT DLP: 1438.1 mGycm Automated exposure control for dose reduction was used. Technique: Examination of the head was done in axial plane without intravenous contrast. Coronal and sagittal reconstructions performed. CT of the cervical spine was obtained in axial plane without intravenous injection of contrast mater ial. Coronal and sagittal reformatted images were obtained from the axial views for evaluation of f ractures, spinal alignment and canal. FINDINGS: Head: There is no evidence of acute intracranial hemorrhage, acute ischemic changes, mass, mass-effect, or extra-axial fluid collection. There is no effacement of cerebral sulci or basal subarachnoid cister ns. There is no hydrocephalus. There is no midline shift. Nicole-white matter distinction is preserv ed. Redemonstrated in encephalomalacia anterior pole of the left temporal lobe. Mild patchy periventricul ar white matter hypodensities. Paranasal sinuses and mastoid air cells well pneumatized. Orbits and globes are intact. No calvarial fracture. Moderate-sized scalp contusion along the right parietal region. Prominent cerumen left external auditory canal. Cervical spine: Mildly enlarged AP window lymph node measuring 1.2 cm and numerous nonenlarged paratracheal lymph nod es. No craniocervical junction abnormality, predental space widening, or prevertebral soft tissue swellin g. Degenerative changes at the C1 dens articulation. Assessment of the spinal canal from C6-C7 and below is limited due to artifact from patient's shoulde rs. Facet arthropathy lower cervical spine and upper thoracic spine. No acute fracture of cervical spine. Alignment is maintained. Patient's head is tilted towards the left. Sagittal and coronal reformatted images confirm above findings. COMBINED IMPRESSION: 1. Right parietal scalp contusion. No acute intracranial abnormality seen. Old encephalomalacia anter ior left temporal lobe. 2. No acute fracture or malalignment of the cervical spine. The patient's head is tilted towards the left. This could be positional or due to muscle spasm/pain. 3. Mildly enlarged AP window lymph node at 1.2 cm. This may be reactive/post inflammatory. Three-fred h follow-up CT chest recommended to reassess and also survey the remainder of the thorax.
--- NOTE | 2018-06-29 11:09 | XR ---
EXAMINATION TYPE: XR pelvis AP view DATE OF EXAM: 06/29/2018 CLINICAL HISTORY: Pain from fall injury. TECHNIQUE: A single AP view of the pelvis is obtained. COMPARISON: Pelvic x-ray March 30, 2018. FINDINGS: There is no acute fracture/dislocation evident in the pelvis. The sacroiliac joints appea r symmetric and unremarkable. Mild to moderate axial joint space loss in both hips is present. Exten sive overlying vascular calcification is again seen. IMPRESSION: There is no acute fracture or dislocation in the pelvis.
--- NOTE | 2018-06-29 11:29 | XR ---
EXAMINATION TYPE: XR chest 2V DATE OF EXAM: 06/29/2018 COMPARISON: None HISTORY: 63-year-old female with pain after fall TECHNIQUE: AP and lateral views FINDINGS: Right-sided anterior chest wall pacemaker generator with right atrial and right ventricular leads. He art upper limits of normal in size. Diffuse interstitial prominence is similar. Some focal hazy densi ty at the left midlung that could relate to patient body habitus and positioning. No pleural effusion . Diffuse interstitial prominence is unchanged. IMPRESSION: Chronic changes with borderline heart size. Some hazy left midlung density could relate to patient issac dy habitus. Subtle infiltrate difficult to exclude.
[2018-06-29 11:53] VITALS: BP 138/55; RESP 18; TEMP 97.7
== END 2018-06-29 11:53 | disposition home or self-care (01) ==
LOC: EC 08:22
DX: S00.03XA Contusion of scalp, initial encounter (principal); M54.2 Cervicalgia; Z88.0 Allergy status to penicillin; I25.119 Atherosclerotic heart disease of native coronary artery with unspecified angina pectoris; I12.0 Hypertensive chronic kidney disease with stage 5 chronic kidney disease or end stage renal disease; E11.22 Type 2 diabetes mellitus with diabetic chronic kidney disease; I25.2 Old myocardial infarction; M19.90 Unspecified osteoarthritis, unspecified site; Z99.2 Dependence on renal dialysis; N18.6 End stage renal disease; F31.9 Bipolar disorder, unspecified; F41.9 Anxiety disorder, unspecified; Z91.041 Radiographic dye allergy status; Z91.048 Other nonmedicinal substance allergy status; Z79.02 Long term (current) use of antithrombotics/antiplatelets; Z79.4 Long term (current) use of insulin; Z79.82 Long term (current) use of aspirin; Z88.8 Allergy status to other drugs, medicaments and biological substances; Z79.890 Hormone replacement therapy; Z79.899 Other long term (current) drug therapy; Z86.14 Personal history of Methicillin resistant Staphylococcus aureus infection; Z96.41 Presence of insulin pump (external) (internal); Z95.5 Presence of coronary angioplasty implant and graft; W01.10XA Fall on same level from slipping, tripping and stumbling with subsequent striking against unspecified object, initial encounter; Y92.009 Unspecified place in unspecified non-institutional (private) residence as the place of occurrence of the external cause
CPT/HCPCS: 36415; 70450; 71046; 72125; 72170; 80048; 83735; 85025; 85610; 99284

== ENCOUNTER 2018-07-22 00:29 | Emergency (ER) | payer MEDICARE, BC, OTHER ==
--- NOTE | 2018-07-22 00:33 | ED ---
General Adult HPI - General Stated complaint: hyperglycemia Time Seen by Provider: 07/22/18 00:32 - History of Present Illness Initial comments: Elif is a chronically ill 63-year-old female with known history of coronary artery disease, end-stage renal on dialysis Friday and insulin- dependent diabetes for which she has an insulin pump. Patient reports that throughout the day she is progressively been feeling worse and worse she's been monitoring her sugars and noted that they've continued to increase. This evening she noted that her sugar was over 500, she then decided to remove her insulin pump place a new line and bolus herself 10 units. Patient states she didn't feel comfortable releasing herself more insulin and decided to call EMS for transport to the hospital. Patient denies any fevers, chills, nausea or vomiting she denies any chest pain palpitations or shortness of breath. She does report a mild headache but thinks this is due to the hyperglycemia. The patient also notes that she did have some loose stools today. - Related Data Home Medications Medication Instructions Recorded Confirmed Famotidine [Pepcid] 20 mg PO DAILY 04/29/14 06/29/18 Aspirin EC [Ecotrin Low Dose] 81 mg PO DAILY 01/01/16 06/29/18 Escitalopram [Lexapro] 20 mg PO DAILY 01/01/16 06/29/18 busPIRone HCL 15 mg PO BID 01/01/16 06/29/18 Atorvastatin [Lipitor] 80 mg PO HS 12/27/16 06/29/18 Clopidogrel [Plavix] 75 mg PO DAILY 03/21/17 06/29/18 Isosorbide Mononitrate ER [Imdur] 30 mg PO DAILY 03/21/17 06/29/18 lamoTRIgine [LaMICtal] 100 mg PO DAILY@0800 07/01/17 06/29/18 lamoTRIgine [LaMICtal] 150 mg PO HS@2100 07/01/17 06/29/18 Insulin Aspart (For Pump) [NovoLOG 0.01 unit SQ-PUMP CONTINUOUS 09/22/17 06/29/18 (For Pump)] Levothyroxine Sodium [Synthroid] 200 mcg PO DAILY@0600 09/22/17 06/29/18 Furosemide [Lasix] 80 mg PO BID@0600,1400 10/13/17 06/29/18 HYDROcodone/APAP 7.5-325MG [[place] 1 tab PO Q6H PRN 06/29/18 06/29/18 7.5-325] amLODIPine [Norvasc] 5 mg PO DAILY 06/29/18 06/29/18 Previous Rx's Medication Instructions Recorded Calcium Acetate [PhosLo] 667 mg PO TID-W/MEALS cap 04/22/18 Allergies Allergy/AdvReac Type Severity Reaction Status Date / Time adhesive Allergy Rash/Hives Verified 06/29/18 08:49 Iodinated Contrast- Oral and Allergy KIDNEY Verified 06/29/18 08:49 IV Dye FAILURE metformin Allergy SUGAR Verified 06/29/18 08:49 LEVEL INCREASE Penicillins Allergy Rash/Hives Verified 06/29/18 08:49 Review of Systems ROS Statement: Those systems with pertinent positive or pertinent negative responses have been documented in the HPI. ROS Other: All systems not noted in ROS Statement are negative. 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 ischemic cardiomyopathy. 12/29/15 STRESS WNL, ALLERGIC rhinitis,[place], CARDIO-PULMONARY ARREST 07/05/14 vertigo, hypertensive nephrosclerosis, Hepatitis A,Vitamin D deficiency, constipation, hx of a cat bit Last Myocardial Infarction Date:: 09/2013 History of Any Multi-Drug Resistant Organisms: MRSA Date of last positivie culture/infection: 09/27/17 MDRO Source:: rt breast Past Surgical History: Adenoidectomy, Appendectomy, Cholecystectomy, Heart Catheterization With Stent, Hysterectomy, Tonsillectomy Additional Past Surgical History / Comment(s): mary cataracts, LAP-BAND 2004, Laparoscopic cholecystectomy, FIBULA FX has metal pins in place,Left shoulder surgery, Hemodialysis Cataract bilateral with IOL, fistula and sx to" reroute it",gets dialysis mon-wed-fri. has insulin pump. no bp on left, excisional debreidment rt lower ext. Past Anesthesia/Blood Transfusion Reactions: Motion Sickness, Postoperative Nausea & Vomiting (PONV) Additional Past Anesthesia/Blood Transfusion Reaction / Comment(s): blood transfusion-pt stated they gave her medication for a reaction but does'nt rememebr what the reaction was Date of Last Stent Placement:: 2014 Past Psychological History: Anxiety, Bipolar, Depression Smoking Status: Never smoker - Past Family History Mother Family Medical History: Congestive Heart Failure (CHF), Diabetes Mellitus, Hypertension Father History Unknown: Yes Family Medical History: Diabetes Mellitus Brother(s) Family Medical History: Diabetes Mellitus, Hyperlipidemia Additional Family Medical History / Comment(s): Hypertension chronic kidney disease General Exam - General Exam Comments Initial Comments: Physical Exam GENERAL: Chronically ill-appearing female appears much older than stated age HENT: Normocephalic, Atraumatic. EYES: PERRL, EOMI PULMONARY: Unlabored respirations. No audible rales rhonchi or wheezing was noted. CARDIOVASCULAR: There is a regular rate and rhythm without any murmurs gallops or rubs. AV fistula left arm with multiple contusions ABDOMEN: Obese, Soft and nontender with normal bowel sounds. SKIN: Skin is clear with no lesions or rashes and otherwise unremarkable. Scarring contusions to the left arm due to dialysis grafting Chronic changes in the bilateral lower extremities consistent with chronic venous stasis : Deferred NEUROLOGIC: Patient is alert and oriented x3. Moving all extremities spontaneously MUSCULOSKELETAL: Generalized atrophy PSYCHIATRIC: Normal psychiatric evaluation. Course Vital Signs 07/22/18 07/22/18 00:36 01:45 Temperature 98.8 F Pulse Rate 67 Respiratory 19 22 Rate Blood Pressure 145/56 O2 Sat by Pulse 97 Oximetry EKG Findings - EKG Comments: EKG Findings:: EKG was obtained at 12:40 AM, rate is 62 rhythm is sinus with a first-degree AV block, [place] to 32, QRS 154, QTC is 497 , there is noted to be a bifascicular block with left ventricular hypertrophy. When compared to previous EKG there is no significant change in morphology. No evidence of acute ischemia or infarction. Medical Decision Making - Medical Decision Making The patient was seen and evaluated history is obtained from patient and EMS. Per EMS patient's glucose is reading high Patient just feeling unwell, does know her icing is concern for insulin pump failure Given the patient has end-stage renal disease she reports that she produces only about a teaspoon of urine a day she is refusing IV fluid bolus, is agreeable to 500 mL DKA workup was initiated Labs resulted with abnormalities consistent with DKA, patient's noted be pseudohyponatremia, hyperkalemia, bicarb is low, anion gap is high, glucose is high, creatinine is at baseline for patient. At this time insulin bolus and infusion were ordered. Given the patient's very complicated medical history including cardiac disease end-stage renal disease and currently being in DKA do feel she will warrant ICU admission for management of her glucose as well as her electrolytes and fluid balance. Patient care was discussed with Dr. Roque who requested the patient be transferred to a facility where she can be evaluated by endocrinology as well. She recommends transfer to the. Patient care was discussed with Dr. Del Angel for DKA Patient was initiated on an insulin drip. She received a 10 unit bolus and 10 units of insulin over the course of one hour prior to transfer to [facility]. Patient's insulin drip will be hold during the short transport to [facility] - Lab Data Result diagrams: 07/22/18 01:10 07/22/18 01:10 Lab Results 07/22/18 07/22/18 07/22/18 Range/Units 00:47 01:10 01:10 WBC 7.9 (3.8-10.6) k/uL RBC 3.92 (3.80-5.40) m/uL Hgb 11.4 (11.4-16.0) gm/dL Hct 39.1 (34.0-46.0) % MCV 99.9 D (80.0-100.0) fL MCH 29.0 (25.0-35.0) pg MCHC 29.1 L (31.0-37.0) g/dL RDW 16.6 H (11.5-15.5) % Plt Count 171 (150-450) k/uL Neutrophils % 90 % Lymphocytes % 4 % Monocytes % 4 % Eosinophils % 0 % Basophils % 0 % Neutrophils # 7.1 (1.3-7.7) k/uL Lymphocytes # 0.3 L (1.0-4.8) k/uL Monocytes # 0.4 (0-1.0) k/uL Eosinophils # 0.0 (0-0.7) k/uL Basophils # 0.0 (0-0.2) k/uL Hypochromasia Marked Anisocytosis Slight Macrocytosis Slight Sodium 127 L (137-145) mmol/L Potassium 6.1 H* (3.5-5.1) mmol/L Chloride 89 L (98-107) mmol/L Carbon Dioxide 16 L (22-30) mmol/L Anion Gap 22 mmol/L BUN 39 H (7-17) mg/dL Creatinine 5.51 H (0.52-1.04) mg/dL Est GFR (CKD-EPI)AfAm 9 (>60 ml/min/1.73 sqM) Est GFR (CKD-EPI)NonAf 8 (>60 ml/min/1.73 sqM) Glucose 637 H* (74-99) mg/dL POC Glucose (mg/dL) >600 H (75-99) mg/dL POC Glu Pet Feeder ID Isa Banks Plasma Lactic Acid Dougie (0.7-2.0) mmol/L Calcium 7.7 L (8.4-10.2) mg/dL Total Bilirubin 1.5 H (0.2-1.3) mg/dL AST 31 (14-36) U/L ALT 14 (9-52) U/L Alkaline Phosphatase 90 (38-126) U/L Troponin I (0.000-0.034) ng/mL Total Protein 7.2 (6.3-8.2) g/dL Albumin 4.4 (3.5-5.0) g/dL Amylase 33 (30-110) U/L Lipase 79 (23-300) U/L 07/22/18 07/22/18 07/22/18 Range/Units 01:10 01:10 02:42 WBC (3.8-10.6) k/uL RBC (3.80-5.40) m/uL Hgb (11.4-16.0) gm/dL Hct (34.0-46.0) % MCV (80.0-100.0) fL MCH (25.0-35.0) pg MCHC (31.0-37.0) g/dL RDW (11.5-15.5) % Plt Count (150-450) k/uL Neutrophils % % Lymphocytes % % Monocytes % % Eosinophils % % Basophils % % Neutrophils # (1.3-7.7) k/uL Lymphocytes # (1.0-4.8) k/uL Monocytes # (0-1.0) k/uL Eosinophils # (0-0.7) k/uL Basophils # (0-0.2) k/uL Hypochromasia Anisocytosis Macrocytosis Sodium (137-145) mmol/L Potassium (3.5-5.1) mmol/L Chloride (98-107) mmol/L Carbon Dioxide (22-30) mmol/L Anion Gap mmol/L BUN (7-17) mg/dL Creatinine (0.52-1.04) mg/dL Est GFR (CKD-EPI)AfAm (>60 ml/min/1.73 sqM) Est GFR (CKD-EPI)NonAf (>60 ml/min/1.73 sqM) Glucose (74-99) mg/dL POC Glucose (mg/dL) 546 H (75-99) mg/dL POC Glu Pet Feeder ID Isa Banks Plasma Lactic Acid Dougie 2.6 H* (0.7-2.0) mmol/L Calcium (8.4-10.2) mg/dL Total Bilirubin (0.2-1.3) mg/dL AST (14-36) U/L ALT (9-52) U/L Alkaline Phosphatase (38-126) U/L Troponin I 0.024 (0.000-0.034) ng/mL Total Protein (6.3-8.2) g/dL Albumin (3.5-5.0) g/dL Amylase (30-110) U/L Lipase (23-300) U/L 07/22/18 Range/Units 03:07 WBC (3.8-10.6) k/uL RBC (3.80-5.40) m/uL Hgb (11.4-16.0) gm/dL Hct (34.0-46.0) % MCV (80.0-100.0) fL MCH (25.0-35.0) pg MCHC (31.0-37.0) g/dL RDW (11.5-15.5) % Plt Count (150-450) k/uL Neutrophils % % Lymphocytes % % Monocytes % % Eosinophils % % Basophils % % Neutrophils # (1.3-7.7) k/uL Lymphocytes # (1.0-4.8) k/uL Monocytes # (0-1.0) k/uL Eosinophils # (0-0.7) k/uL Basophils # (0-0.2) k/uL Hypochromasia Anisocytosis Macrocytosis Sodium (137-145) mmol/L Potassium (3.5-5.1) mmol/L Chloride (98-107) mmol/L Carbon Dioxide (22-30) mmol/L Anion Gap mmol/L BUN (7-17) mg/dL Creatinine (0.52-1.04) mg/dL Est GFR (CKD-EPI)AfAm (>60 ml/min/1.73 sqM) Est GFR (CKD-EPI)NonAf (>60 ml/min/1.73 sqM) Glucose (74-99) mg/dL POC Glucose (mg/dL) 412 H (75-99) mg/dL POC Glu Pet Feeder ID Isa Banks Plasma Lactic Acid Dougie (0.7-2.0) mmol/L Calcium (8.4-10.2) mg/dL Total Bilirubin (0.2-1.3) mg/dL AST (14-36) U/L ALT (9-52) U/L Alkaline Phosphatase (38-126) U/L Troponin I (0.000-0.034) ng/mL Total Protein (6.3-8.2) g/dL Albumin (3.5-5.0) g/dL Amylase (30-110) U/L Lipase (23-300) U/L Critical Care Time Critical Care Time: Yes Total Critical Care Time: 30 Critical Care Time: Critical Care Time Critical care time was exclusive of separately billable procedures and treating other patients and teaching time. Critical care was necessary to treat or prevent imminent or life-threatening deterioration. Given the critical condition in which the patient arrived, the patient was immediately assessed by myself and the nurse, and cardiac monitoring initiated due to the potential for rapid decompensation of the patient's clinical condition. During the course of the patients stay, I spent a considerable amount of time at the bedside performing serial re-evaluations of the patient's hemodynamic and clinical status because of the recognized potential threat to life or limb in this condition. I then had a chance to review not only all of the available current laboratory and radiographic studies obtained today, but I also reviewed old records available to me at the time. Additionally, any ancillary information available including marketing budget analyst records were reviewed. Sequential vital signs were obtained. Disposition Clinical Impression: ESRD (end stage renal disease), DKA (diabetic ketoacidoses) Disposition: OTHER INSTITUTION NOT DEFINED Referrals: Kimberli Gar MD [Primary Care Provider] - 1-2 days - Out of Hospital Transfer - Req. Specs Out of Hospital Transfer - Requested Specifics: Other Emergency Center ([facility])
[2018-07-22 00:48] LABS: Glucose,Whole Blood >600 mg/dL (75-99)
[2018-07-22] MEDS: SODIUM CHLORIDE 0.9% 500 ML 500 ML IV STA ×2 (01:18→01:52)
[2018-07-22 01:32] LABS: Albumin 4.4 g/dL (3.5-5.0); Anisocytosis Slight; Basophils % (A) 0 %; Calcium 7.7 mg/dL (8.4-10.2); Eosinophils % (A) 0 %; HCT 39.1 % (34.0-46.0); HGB 11.4 gm/dL (11.4-16.0); Hypochromasia Marked; Lymphocytes # (A) 0.3 k/uL (1.0-4.8); Lymphocytes % (A) 4 %; MCHC 29.1 g/dL (31.0-37.0); Macrocytosis Slight; Mean Platelet Volume 7.6; Monocytes # (A) 0.4 k/uL (0-1.0); Monocytes % (A) 4 %; Neutrophils # (A) 7.1 k/uL (1.3-7.7); Neutrophils % (A) 90 %; Platelet Count 171 k/uL (150-450); RBC 3.92 m/uL (3.80-5.40); RDW 16.6 % (11.5-15.5); Total Bilirubin 1.5 mg/dL (0.2-1.3); Total Protein 7.2 g/dL (6.3-8.2); WBC 7.9 k/uL (3.8-10.6)
[2018-07-22 01:33] LABS: MCV 99.9 fL (80.0-100.0)
[2018-07-22 01:48] LABS: Potassium 6.1 mmol/L (3.5-5.1)
[2018-07-22] MEDS ORDERED: CALCIUM GLUCONATE 1 GM in SODIUM CHLORIDE 0.9% 100 ML IVPB ONE (01:53)
[2018-07-22] MEDS ORDERED: INSULIN REGULAR 100 UNIT/ML VIAL IV ONE (01:53)
[2018-07-22] MEDS ORDERED: INSULIN REGULAR 100 UNIT in SODIUM CHLORIDE 0.9% 100 ML IV SCH (02:00)
[2018-07-22 02:44] LABS: Glucose,Whole Blood 546 mg/dL (75-99)
[2018-07-22 03:08] LABS: Glucose,Whole Blood 412 mg/dL (75-99)
[2018-07-22 03:42] LABS: Glucose,Whole Blood 426 mg/dL (75-99)
[2018-07-22 04:13] VITALS: BP 134/51; PULSE 70; RESP 19; TEMP 98.4
== END 2018-07-22 03:40 | disposition other institution (70) ==
LOC: EC 00:29
DX: E11.10 Type 2 diabetes mellitus with ketoacidosis without coma (principal); I25.5 Ischemic cardiomyopathy; I12.0 Hypertensive chronic kidney disease with stage 5 chronic kidney disease or end stage renal disease; N18.6 End stage renal disease; E87.5 Hyperkalemia; E11.22 Type 2 diabetes mellitus with diabetic chronic kidney disease; I25.10 Atherosclerotic heart disease of native coronary artery without angina pectoris; E78.5 Hyperlipidemia, unspecified; I25.2 Old myocardial infarction; E07.9 Disorder of thyroid, unspecified; F41.9 Anxiety disorder, unspecified; F32.9 Major depressive disorder, single episode, unspecified; Z95.5 Presence of coronary angioplasty implant and graft; Z99.2 Dependence on renal dialysis; Z86.14 Personal history of Methicillin resistant Staphylococcus aureus infection; Z83.3 Family history of diabetes mellitus; Z79.82 Long term (current) use of aspirin; Z79.02 Long term (current) use of antithrombotics/antiplatelets; Z79.4 Long term (current) use of insulin; Z79.890 Hormone replacement therapy; Z79.899 Other long term (current) drug therapy; Z91.048 Other nonmedicinal substance allergy status; Z91.041 Radiographic dye allergy status; Z88.8 Allergy status to other drugs, medicaments and biological substances; Z88.0 Allergy status to penicillin
CPT/HCPCS: 36415; 93005; 80053; 85025; 82150; 83605; 83690; 84484; 99291; 96365; J0610

== ENCOUNTER 2018-08-03 19:05 | Observation (INO) | payer MEDICARE, OTHER ==
[2018-08-03 19:38] LABS: Anisocytosis Slight; Basophils % (A) 0 %; Eosinophils # (A) 0.3 k/uL (0-0.7); Eosinophils % (A) 4 %; HCT 32.9 % (34.0-46.0); Hypochromasia Slight; Lymphocytes # (A) 0.6 k/uL (1.0-4.8); Lymphocytes % (A) 9 %; MCH 28.3 pg (25.0-35.0); MCHC 30.2 g/dL (31.0-37.0); Mean Platelet Volume 7.2; Monocytes # (A) 0.5 k/uL (0-1.0); Monocytes % (A) 7 %; Neutrophils # (A) 5.3 k/uL (1.3-7.7); Neutrophils % (A) 79 %; Platelet Count 222 k/uL (150-450); WBC 6.8 k/uL (3.8-10.6)
[2018-08-03 19:42] LABS: HGB 9.9 gm/dL (11.4-16.0)
[2018-08-03 19:47] LABS: Potassium 5.1 mmol/L (3.5-5.1)
--- NOTE | 2018-08-03 19:49 | ED ---
General Adult HPI - General Chief complaint: Recheck/Abnormal Lab/Rx Stated complaint: Abnormal Labs Time Seen by Provider: 08/03/18 19:06 Source: patient, EMS Mode of arrival: EMS Limitations: no limitations - History of Present Illness Initial comments: Dictation was produced using [email or web address] dictation software. please excuse any grammatical, word or spelling errors. Chief Complaint: 63-year-old female presents with abnormal outpatient lab. History of Present Illness: Patient is a 63-year-old female with past medical history stage renal disease. Patient has dialysis on Friday. She presents today because she was called by her PCP told her to come to the emergency department for a potassium of 8. Patient also has been having abnormal neurologic symptoms to the left side of her body that are intermittent. Showed sodas report difficulties with word finding and penmanship difficulties. Patient states he had dialysis today. She reports that the abnormal lab was performed prior to her dialysis. She states she had normal dialysis treatment today without any issues. Patient is asymptomatic at this time. She does however have a secondary concern of left-sided neurologic episodes of paresthesias. The ROS documented in this emergency department record has been reviewed and confirmed by me. Those systems with pertinent positive or negative responses have been documented in the HPI. All other systems are other negative and/or noncontributory. PHYSICAL EXAM: General Impression: Alert and oriented x3, not in acute distress HEENT: Normocephalic atraumatic, extra-ocular movements intact, pupils equal and reactive to light bilaterally, mucous membranes moist. Cardiovascular: Heart regular rate and rhythm, S1&S2 audible, no murmurs, rubs or gallops Chest: Lungs clear to auscultation bilaterally, no rhonchi, no wheeze, no rales Abdomen: Bowel sounds present, abdomen soft, non-tender, non-distended, no organomegaly Musculoskeletal: Pulses present and equal in all extremities, no peripheral edema Motor: no focal deficits noted Neurological: CN II-XII grossly intact, no focal motor or sensory deficits noted Skin: Intact with no visualized rashes, dialysis access to left upper extremity Psych: Normal affect and mood ED course: Patient is 63-year-old female presents with chief complaint of abno rmal labs and neurologic symptoms that are intermittent in nature. Vital signs upon arrival are within acceptable limits. Potassium today is 5.1 on our evaluation. EKG shows paced rhythm. Laboratory evaluation obtained. CBC, metabolic panel i computed tomography scan of the brain shows old temp oral lobe encephalomalacia compared to old exam. Chest x-ray is nonacute. s unremarkable. Potassium is 5.1. Patient insisted she be placed in observation for neurology consultation. At this point it is unclear what is causing patient's neurologic symptoms. There is some concern for transient ischemic attack. Patient treated with aspirin. Patient be admitted with neurology consultation. Patient be admitted to Dr. Akers. Dr. Akers is willing to accept admission. EKG interpretation: Ventricular rate 60, paced rhythm, IA interval 350, Q's 200, QTC 546. No IA prolongation, no QTC prolongation, no ST or T-wave changes noted. . Overall, this EKG is unremarkable - Related Data Home Medications Medication Instructions Recorded Confirmed Famotidine [Pepcid] 20 mg PO DAILY 04/29/14 08/03/18 Aspirin EC [Ecotrin Low Dose] 81 mg PO DAILY 01/01/16 08/03/18 Escitalopram [Lexapro] 20 mg PO DAILY 01/01/16 08/03/18 busPIRone HCL 15 mg PO BID 01/01/16 08/03/18 Atorvastatin [Lipitor] 80 mg PO HS 12/27/16 08/03/18 Clopidogrel [Plavix] 75 mg PO DAILY 03/21/17 08/03/18 Isosorbide Mononitrate ER [Imdur] 30 mg PO DAILY 03/21/17 08/03/18 lamoTRIgine [LaMICtal] 100 mg PO DAILY@0800 07/01/17 08/03/18 lamoTRIgine [LaMICtal] 150 mg PO HS@2100 07/01/17 08/03/18 Insulin Aspart (For Pump) [NovoLOG 0.01 unit SQ-PUMP CONTINUOUS 09/22/17 08/03/18 (For Pump)] Levothyroxine Sodium [Synthroid] 200 mcg PO DAILY@0600 09/22/17 08/03/18 Furosemide [Lasix] 80 mg PO BID@0600,1400 10/13/17 08/03/18 HYDROcodone/APAP 7.5-325MG [[place] 1 tab PO Q6H PRN 06/29/18 08/03/18 7.5-325] amLODIPine [Norvasc] 5 mg PO DAILY 06/29/18 08/03/18 Previous Rx's Medication Instructions Recorded Calcium Acetate [PhosLo] 667 mg PO TID-W/MEALS cap 04/22/18 Allergies Allergy/AdvReac Type Severity Reaction Status Date / Time adhesive Allergy Rash/Hives Verified 08/03/18 19:19 Iodinated Contrast- Oral and Allergy KIDNEY Verified 08/03/18 19:19 IV Dye FAILURE metformin Allergy SUGAR Verified 08/03/18 19:19 LEVEL INCREASE Penicillins Allergy Rash/Hives Verified 08/03/18 19:19 Review of Systems ROS Statement: Those systems with pertinent positive or pertinent negative responses have been documented in the HPI. ROS Other: All systems not noted in ROS Statement are negative. Past Medical History Past Medical History: Coronary Artery Disease (CAD), Chest Pain / Angina, Dementia, Diabetes Mellitus, Dialysis, Hyperlipidemia, Hypertension, Liver Disease, Myocardial Infarction ([place]), Osteoarthritis ([place]), Thyroid Disorder Additional Past Medical History / Comment(s): pt's ex- stated "pt has had 17 mi's". ischemic cardiomyopathy. 12/29/15 STRESS WNL, ALLERGIC rhinitis,[place], CARDIO-PULMONARY ARREST 07/05/14 vertigo, hypertensive nephrosclerosis, Hepatitis A,Vitamin D deficiency, constipation, hx of a cat bit Last Myocardial Infarction Date:: 09/2013 History of Any Multi-Drug Resistant Organisms: MRSA Date of last positivie culture/infection: 09/27/17 MDRO Source:: rt breast Past Surgical History: Adenoidectomy, Appendectomy, Cholecystectomy, Heart Catheterization With Stent, Hysterectomy, Tonsillectomy Additional Past Surgical History / Comment(s): mary cataracts, LAP-BAND 2004, Laparoscopic cholecystectomy, FIBULA FX has metal pins in place,Left shoulder surgery, Hemodialysis Cataract bilateral with IOL, fistula and sx to" reroute it",gets dialysis fri-fri-fri. has insulin pump. no bp on left, excisional debreidment rt lower ext. Past Anesthesia/Blood Transfusion Reactions: Motion Sickness, Postoperative Nausea & Vomiting (PONV) Additional Past Anesthesia/Blood Transfusion Reaction / Comment(s): blood transfusion-pt stated they gave her medication for a reaction but does'nt rememebr what the reaction was Date of Last Stent Placement:: 2014 Past Psychological History: Anxiety, Bipolar, Depression Smoking Status: Never smoker Past Alcohol Use History: None Reported Past Drug Use History: None Reported - Past Family History Mother Family Medical History: Congestive Heart Failure (CHF), Diabetes Mellitus, Hypertension Father History Unknown: Yes Family Medical History: Diabetes Mellitus Brother(s) Family Medical History: Diabetes Mellitus, Hyperlipidemia Additional Family Medical History / Comment(s): Hypertension chronic kidney disease General Exam Limitations: no limitations Course Vital Signs 08/03/18 19:08 Temperature 97.7 F Pulse Rate 61 Respiratory 18 Rate Blood Pressure 119/51 O2 Sat by Pulse 96 Oximetry Medical Decision Making - Lab Data Result diagrams: 08/03/18 19:30 08/03/18 19:30 Lab Results 08/03/18 08/03/18 Range/Units 19:30 19:30 WBC 6.8 (3.8-10.6) k/uL RBC 3.50 L (3.80-5.40) m/uL Hgb 9.9 L D (11.4-16.0) gm/dL Hct 32.9 L (34.0-46.0) % MCV 94.0 D (80.0-100.0) fL MCH 28.3 (25.0-35.0) pg MCHC 30.2 L (31.0-37.0) g/dL RDW 17.0 H (11.5-15.5) % Plt Count 222 (150-450) k/uL Neutrophils % 79 % Lymphocytes % 9 % Monocytes % 7 % Eosinophils % 4 % Basophils % 0 % Neutrophils # 5.3 (1.3-7.7) k/uL Lymphocytes # 0.6 L (1.0-4.8) k/uL Monocytes # 0.5 (0-1.0) k/uL Eosinophils # 0.3 (0-0.7) k/uL Basophils # 0.0 (0-0.2) k/uL Hypochromasia Slight Anisocytosis Slight Sodium 136 L (137-145) mmol/L Potassium 5.1 (3.5-5.1) mmol/L Chloride 97 L (98-107) mmol/L Carbon Dioxide 30 (22-30) mmol/L Anion Gap 9 mmol/L BUN 22 H (7-17) mg/dL Creatinine 4.34 H (0.52-1.04) mg/dL Est GFR (CKD-EPI)AfAm 12 (>60 ml/min/1.73 sqM) Est GFR (CKD-EPI)NonAf 10 (>60 ml/min/1.73 sqM) Glucose 290 H (74-99) mg/dL Calcium 8.0 L (8.4-10.2) mg/dL Disposition Clinical Impression: Abnormal laboratory test, Neurologic abnormality Disposition: ADMITTED IP TO THIS [facility] Condition: Fair Referrals: Kimberli Gar MD [Primary Care Provider] - 1-2 days Decision Time: 21:53
--- NOTE | 2018-08-03 20:53 | CT ---
EXAMINATION TYPE: CT brain wo con DATE OF EXAM: 08/03/2018 COMPARISON: 06/29/2018 HISTORY: Left sided weakness CT DLP: 1064.4 mGycm Automated exposure control for dose reduction was used. FINDINGS: There is some hypodensity in the anterior left middle cranial fossa consistent with some left tempora l lobe encephalomalacia. There is no mass effect nor midline shift. There is no sign of intracranial hemorrhage. The calvarium is intact. IMPRESSION: OLD LEFT ANTERIOR TEMPORAL LOBE ENCEPHALOMALACIA UNCHANGED COMPARED TO OLD EXAM AND ALSO 07/29/2017 EX AM. NO ACUTE INTRACRANIAL ABNORMALITY.
--- NOTE | 2018-08-03 20:55 | XR ---
EXAMINATION TYPE: XR chest 2V DATE OF EXAM: 08/03/2018 COMPARISON: 06/29/2018 HISTORY: Chest pain TECHNIQUE: Frontal and lateral views of the chest are obtained. FINDINGS: There is no heart failure. Heart is enlarged. There is coarsening of the lung markings. Th ere is no pleural effusion. There is a right axillary pacemaker noted. Bony thorax is intact. IMPRESSION: Coarse lung markings similar to last exam and consistent with interstitial fibrosis. No overt heart failure. No pleural fluid seen to suggest heart failure. Cardiomegaly unchanged.
[2018-08-03] MEDS ORDERED: ASPIRIN 81 MG PO STA (21:53)
[2018-08-03] MEDS ORDERED: ACETAMINOPHEN TAB 325 MG TAB PO PRN (21:54)
[2018-08-03] MEDS ORDERED: NALOXONE 0.4 MG/ML 1 ML VIAL IV PRN (21:54)
[2018-08-03 23:12] LABS: Glucose,Whole Blood 205 mg/dL (75-99)
[2018-08-04] MEDS: lamoTRIgine 100 MG TAB PO SCH ×3 (00:25→20:22)
[2018-08-04] MEDS: ATORVASTATIN 80 MG TAB PO SCH ×2 (00:25→20:22)
[2018-08-04] MEDS ORDERED: LORazepam 0.5 MG TAB PO PRN (00:49)
[2018-08-04] MEDS ORDERED: Insulin Aspart (For Pump) 100 UNIT/ML VIAL SQ-PUMP SCH (01:00)
[2018-08-04] MEDS: FUROSEMIDE 80 MG TAB PO SCH ×2 (05:49→14:01)
[2018-08-04] MEDS: LEVOTHYROXINE 100 MCG TAB PO SCH (05:50)
[2018-08-04] MEDS: CALCIUM ACETATE 667 MG CAP PO SCH ×3 (05:51→17:27)
[2018-08-04] MEDS: HYDROcodone/APAP 7.5-325MG 1 EACH TAB PO PRN ×2 (05:51→20:22)
[2018-08-04 06:01] LABS: Glucose,Whole Blood 165 mg/dL (75-99)
[2018-08-04] MEDS: ESCITALOPRAM 20 MG TAB PO SCH (09:08)
[2018-08-04] MEDS: FAMOTIDINE 20 MG TAB PO SCH (09:08)
[2018-08-04] MEDS: N PO SCH (09:08)
[2018-08-04] MEDS: busPIRone HCl 5 MG TAB PO SCH ×2 (09:08→20:21)
[2018-08-04] MEDS: amLODIPine 5 MG TAB PO SCH (09:08)
[2018-08-04] MEDS: ISOSORBIDE MONONITRATE ER 30 MG TAB.ER.24H PO SCH (09:08)
[2018-08-04] MEDS: CLOPIDOGREL 75 MG TAB PO SCH (09:08)
[2018-08-04] MEDS ORDERED: INSPUCOR MISCELLANE PRN (10:24)
[2018-08-04] MEDS ORDERED: INSULIN PUMP BASAL RATES 1 EACH MISC MISCELLANE PRN (10:24)
[2018-08-04] MEDS ORDERED: INSULIN PUMP TARGET GLUCOSE 1 EACH MISC MISCELLANE PRN (10:24)
[2018-08-04] MEDS ORDERED: INSULIN ASPART (NovoLOG) 100 UNIT/ML VIAL SQ PRN (10:24)
[2018-08-04] MEDS ORDERED: INSULIN PUMP ACTIVE INSULIN 1 EACH MISC MISCELLANE PRN (10:24)
--- NOTE | 2018-08-04 11:27 | P.CNNES ---
History of Present Illness Consult date: 08/04/18 Reason for Consult: Rule out TIA History of Present Illness: Patient is a 63-year-old female, with long-standing history of diabetes, end- stage renal disease on hemodialysis, states that about a month ago she started having intermittent problems with handwriting, and speech difficulty. Patient states that she would be writing, and without realizing, she would be writing sentences 1 top of another. If she is writing a phone number, also will be top of another that she cannot even understand what she has written. She has to concentrate in order to write. When she tries to write on the lines, it goes up instead staying on the line. She claims that these writing issues occurs usually in the afternoon or evening and she is much better, or no issue in the morning. Since around the same time, in the past 1 month, she occasionally woul d have problems with speaking certain words which has 3 or more consonants, like "[place]", when she gets a hesitation and has to concentrate to get the word out. It happens off and on. In the past 1 week patient has been having myoclonic jerks mainly involving the left arm or the left leg, and she would be walking and the knee would buckle, and she would feel as if she could fall. Other times she was holding a cup of tea in the right hand, and supporting with the left hand, when her left arm jerked and the tea was spilled all over. Patient has history of diabetes for 35 years, on insulin. Patient states that it is not very well controlled. She also claims that she has irregular he artbeat for which she had a pacemaker placed in the past. No evidence of atrial fibrillation, as per previous EKGs and documentation of consultation by cable engineer outside plant Dr. Wilson. Patient currently is on Plavix and aspirin. Previously used to be on Coumadin. Patient denies any tobacco use. She does have asthma but in remission. Patient also claims that she does take [place] for chronic back issues, but not very frequently. She has not taken Neurontin for almost a month. Patient denies any history of restless legs. About a month ago patient states that she fell in her apartment. She was using her walker, when she felt as if someone pushed her and she fell backwards hitting head on the table. Patient came to the ER and was evaluated at that time. Patient had computed tomography scan of the head, which revealed old left anterior temporal lobe encephalomalacia, unchanged compared to the previous exam from 06/29/2017. Chest x-ray showed coarse lung markings similar to the last exam consistent with interstitial fibrosis. EKG showed AV dual paced rhythm with prolonged AV conduction. Patient had an EEG on 07/29/2017, which revealed generalized slowing of the background rhythm, consistent with mild encephalopathy. No epileptiform activity was seen. Her blood test shows WBC 6.8 hemoglobin 9.9, platelets 222, sodium 136 potassium 5.1, BU and 22, creatinine 4.34. Her last hemoglobin A1c 6.7 on 04/15/2018. Review of Systems Constitutional: Reports as per HPI, Denies chronic headaches, Denies lethargy Eyes: denies blurred vision, denies photophobia, denies loss of vision Ears, nose, mouth and throat: Denies dysphagia, Denies vertigo Cardiovascular: Denies syncope Gastrointestinal: Denies hematemesis, Denies nausea, Denies vomiting Past Medical History Past Medical History: Coronary Artery Disease (CAD), Chest Pain / Angina, Dementia, Diabetes Mellitus, Dialysis, Hyperlipidemia, Hypertension, Liver Disease, Myocardial Infarction ([place]), Osteoarthritis (OA), Thyroid Disorder Additional Past Medical History / Comment(s): multiple TX's. ischemic cardiomyopathy. 12/29/15 STRESS WNL, ALLERGIC rhinitis,[place], CARDIO-PULMONARY ARREST 07/05/14 vertigo, hypertensive nephrosclerosis, Hepatitis A,Vitamin D deficiency, constipation, hx of a cat bit Last Myocardial Infarction Date:: 09/2013 History of Any Multi-Drug Resistant Organisms: MRSA Date of last positivie culture/infection: 09/27/17 MDRO Source:: rt breast Past Surgical History: Adenoidectomy, Appendectomy, Cholecystectomy, Heart Catheterization With Stent, Hysterectomy, Tonsillectomy Additional Past Surgical History / Comment(s): mary cataracts, LAP-BAND 2004, Laparoscopic cholecystectomy, FIBULA FX has metal pins in place,Left shoulder surgery, Hemodialysis Cataract bilateral with IOL, fistula and sx to" reroute it",gets dialysis mon-wed-fri. has insulin pump. no bp on left, excisional debreidment rt lower ext. Past Anesthesia/Blood Transfusion Reactions: Motion Sickness, Postoperative Nausea & Vomiting (PONV) Additional Past Anesthesia/Blood Transfusion Reaction / Comment(s): blood transfusion-pt stated they gave her medication for a reaction but does'nt rememebr what the reaction was Date of Last Stent Placement:: 2014 Past Psychological History: Anxiety, Bipolar, Depression Additional Psychological History / Comment(s): pt. lives alone in apartment, uses walker for ambulation and has a wheelchair for longer distances, pt. no longer drives and takes city transport or has friends take her to appts. pt. has glucose reader, power w/c, shower chair, railing in br, walker and insulin pump. Smoking Status: Never smoker Past Alcohol Use History: None Reported Past Drug Use History: None Reported - Past Family History Mother Family Medical History: Congestive Heart Failure (CHF), Diabetes Mellitus, Hypertension Father History Unknown: Yes Family Medical History: Diabetes Mellitus Brother(s) Family Medical History: Diabetes Mellitus, Hyperlipidemia Additional Family Medical History / Comment(s): Hypertension chronic kidney disease Medications and Allergies Home Medications Medication Instructions Recorded Confirmed Type Famotidine [Pepcid] 20 mg PO DAILY 04/29/14 08/03/18 History Aspirin EC [Ecotrin Low Dose] 81 mg PO DAILY 01/01/16 08/03/18 History Escitalopram [Lexapro] 20 mg PO DAILY 01/01/16 08/03/18 History busPIRone HCL 15 mg PO BID 01/01/16 08/03/18 History Atorvastatin [Lipitor] 80 mg PO HS 12/27/16 08/03/18 History Clopidogrel [Plavix] 75 mg PO DAILY 03/21/17 08/03/18 History Isosorbide Mononitrate ER [Imdur] 30 mg PO DAILY 03/21/17 08/03/18 History lamoTRIgine [LaMICtal] 100 mg PO DAILY@0800 07/01/17 08/03/18 History lamoTRIgine [LaMICtal] 150 mg PO HS@2100 07/01/17 08/03/18 History Insulin Aspart (For Pump) [NovoLOG 0.01 unit SQ-PUMP CONTINUOUS 09/22/17 08/03/18 History (For Pump)] Levothyroxine Sodium [Synthroid] 200 mcg PO DAILY@0600 09/22/17 08/03/18 History Furosemide [Lasix] 80 mg PO BID@0600,1400 10/13/17 08/03/18 History Calcium Acetate [PhosLo] 667 mg PO TID-W/MEALS cap 04/22/18 08/03/18 Rx HYDROcodone/APAP 7.5-325MG [[place] 1 tab PO Q6H PRN 06/29/18 08/03/18 History 7.5-325] amLODIPine [Norvasc] 5 mg PO DAILY 06/29/18 08/03/18 History LORazepam [Ativan] 0.5 mg PO BID PRN 08/03/18 08/03/18 History Allergies Allergy/AdvReac Type Severity Reaction Status Date / Time adhesive Allergy Rash/Hives Verified 08/03/18 19:19 Iodinated Contrast- Oral and Allergy KIDNEY Verified 08/03/18 19:19 IV Dye FAILURE metformin Allergy SUGAR Verified 08/03/18 19:19 LEVEL INCREASE Penicillins Allergy Rash/Hives Verified 08/03/18 19:19 Physical Examination - Vital Signs Vital Signs: Vital Signs Temp Pulse Pulse Resp BP BP Pulse Ox 08/04/18 08:00 98.3 F 60 18 115/51 99 08/04/18 04:00 65 17 124/57 08/03/18 22:30 18 08/03/18 22:02 60 18 130/46 96 08/03/18 19:08 97.7 F 61 18 119/51 96 Intake and Output 08/03/18 08/04/18 08/04/18 22:59 06:59 14:59 Intake Total 240 Balance 240 Intake: Oral 240 Other: # Voids 1 1 Weight 101 kg 103.1 kg On examination patient is an elderly female, very pleasant in no acute distress. Patient is alert and awake fully oriented. Speech and language f unctions are normal. Possible carotid bruit heard on the left>R. On cranial nerve examination pupils are round and reacting to light. Visual peters are full. Extra muscles are intact. Face is symmetric and tongue protrudes the midline on muscle strength testing there is no obvious pronator drift and the strength is normal in arms and legs distally and proximally. Reflexes are diminished and plantars are downgoing. Sensory touch is equal. No ataxia for [id number] testing. Patient has mild myoclonic jerks, low amplitude noted of leg slightly more than the arms. Results - Laboratory Findings CBC and BMP: 08/03/18 19:30 08/03/18 19:30 Abnormal Lab Findings: Abnormal Labs 08/03/18 08/03/18 08/03/18 19:30 19:30 23:11 RBC 3.50 L Hgb 9.9 L D Hct 32.9 L MCHC 30.2 L RDW 17.0 H Lymphocytes # 0.6 L Sodium 136 L Chloride 97 L BUN 22 H Creatinine 4.34 H Glucose 290 H POC Glucose (mg/dL) 205 H Calcium 8.0 L 08/04/18 05:59 RBC Hgb Hct MCHC RDW Lymphocytes # Sodium Chloride BUN Creatinine Glucose POC Glucose (mg/dL) 165 H Calcium Assessment and Plan Assessment: * Intermittent speech difficulty, with hesitancy for certain words, unclear etiology. Symptoms do not appear typical TIA. * Intermittent problems with handwriting, mainly in the afternoon and evening hours. Again symptoms do not appear typical TIA. * Intermittent myoclonic jerks, probably metabolic. * Diabetes * End-stage renal disease on hemodialysis * Pacemaker for arrhythmia. * Hyperthyroidism, as per last thyroid functions. * Obesity Plan: * Carotid Doppler to rule out carotid stenosis. * 2-D echo with bubble study to rule out PFO. * Continue aspirin 81 mg, Plavix and statins. * Check Lamictal level, B12, folate, thyroid functions * Avoid narcotics/opiates, which can trigger myoclonic jerks. * We will follow.
[2018-08-04 11:53] LABS: Glucose,Whole Blood 83 mg/dL (75-99)
[2018-08-04 12:17] LABS: T4, Free (Free Thyroxine) 1.47 ng/dL (0.78-2.19)
[2018-08-04] MEDS: INSULIN PUMP MEAL BOLUS 1 UNIT MISC MISCELLANE SCH ×3 (12:48→23:07)
--- NOTE | 2018-08-04 12:56 | P.NPCON ---
History of Present Illness - Reason for Consult end stage renal disease - History of Present Illness Reason for consultation: End-stage renal disease History of present illness: Patient is a 63-year-old female seen in consultation for end-stage renal disease. She is maintained on hemodialysis on a Friday schedule. Patient missed hemodialysis Friday due to not feeling well. She did complete hemodialysis yesterday. Patient's potassium level was severely elevated due to missed dialysis but is improved posttreatment. She is currently resting in bed. Denies chest pain or shortness of breath. No vomiting or diarrhea. Blood sugars are stable. Hemodynamically stable. Patient was also having difficulty with word finding prior to admission. She is currently being seen by neurology. Brain CT revealed no acute abnormality. Hemodynamically stable. Currently having lunch. No active complaints at this time. Vital signs are stable. General: The patient appeared well nourished and normally developed. HEENT: Head exam is unremarkable. Neck is without jugular venous distension. LUNGS: Lungs are clear to auscultation and percussion. Breath sounds decreased. HEART: Rate and Rhythm are regular. First and second heart sounds normal. No murmurs, rubs or gallops. ABDOMEN: Abdominal exam reveals normal bowel sounds. Non-tender and non- distended. No evidence of peritonitis. EXTREMITITES: No clubbing, cyanosis, or edema. Past Medical History Past Medical History: Coronary Artery Disease (CAD), Chest Pain / Angina, Dementia, Diabetes Mellitus, Dialysis, Hyperlipidemia, Hypertension, Liver Disease, Myocardial Infarction ([place]), Osteoarthritis (OA), Thyroid Disorder Additional Past Medical History / Comment(s): multiple [place]'s. ischemic cardiomyopathy. 12/29/15 STRESS WNL, ALLERGIC rhinitis,[place], CARDIO-PULMONARY ARREST 07/05/14 vertigo, hypertensive nephrosclerosis, Hepatitis A,Vitamin D deficiency, constipation, hx of a cat bit Last Myocardial Infarction Date:: 09/2013 History of Any Multi-Drug Resistant Organisms: MRSA Date of last positivie culture/infection: 09/27/17 MDRO Source:: rt breast Past Surgical History: Adenoidectomy, Appendectomy, Cholecystectomy, Heart Catheterization With Stent, Hysterectomy, Tonsillectomy Additional Past Surgical History / Comment(s): mary cataracts, LAP-BAND 2005, Laparoscopic cholecystectomy, FIBULA FX has metal pins in place,Left shoulder surgery, Hemodialysis Cataract bilateral with IOL, fistula and sx to" reroute it",gets dialysis mon-wed-fri. has insulin pump. no bp on left, excisional debreidment rt lower ext. Past Anesthesia/Blood Transfusion Reactions: Motion Sickness, Postoperative Nausea & Vomiting (PONV) Additional Past Anesthesia/Blood Transfusion Reaction / Comment(s): blood transfusion-pt stated they gave her medication for a reaction but does'nt rememebr what the reaction was Date of Last Stent Placement:: 2014 Past Psychological History: Anxiety, Bipolar, Depression Additional Psychological History / Comment(s): pt. lives alone in apartment, uses walker for ambulation and has a wheelchair for longer distances, pt. no longer drives and takes city transport or has friends take her to appts. pt. has glucose reader, power w/c, shower chair, railing in br, walker and insulin pump. Smoking Status: Never smoker Past Alcohol Use History: None Reported Past Drug Use History: None Reported - Past Family History Mother Family Medical History: Congestive Heart Failure (CHF), Diabetes Mellitus, Hypertension Father History Unknown: Yes Family Medical History: Diabetes Mellitus Brother(s) Family Medical History: Diabetes Mellitus, Hyperlipidemia Additional Family Medical History / Comment(s): Hypertension chronic kidney disease Medications and Allergies Home Medications Medication Instructions Recorded Confirmed Type Famotidine [Pepcid] 20 mg PO DAILY 04/29/14 08/03/18 History Aspirin EC [Ecotrin Low Dose] 81 mg PO DAILY 01/01/16 08/03/18 History Escitalopram [Lexapro] 20 mg PO DAILY 01/01/16 08/03/18 History busPIRone HCL 15 mg PO BID 01/01/16 08/03/18 History Atorvastatin [Lipitor] 80 mg PO HS 12/27/16 08/03/18 History Clopidogrel [Plavix] 75 mg PO DAILY 03/21/17 08/03/18 History Isosorbide Mononitrate ER [Imdur] 30 mg PO DAILY 03/21/17 08/03/18 History lamoTRIgine [LaMICtal] 100 mg PO DAILY@0800 07/01/17 08/03/18 History lamoTRIgine [LaMICtal] 150 mg PO HS@2100 07/01/17 08/03/18 History Insulin Aspart (For Pump) [NovoLOG 0.01 unit SQ-PUMP CONTINUOUS 09/22/17 08/03/18 History (For Pump)] Levothyroxine Sodium [Synthroid] 200 mcg PO DAILY@0600 09/22/17 08/03/18 History Furosemide [Lasix] 80 mg PO BID@0600,1400 10/13/17 08/03/18 History Calcium Acetate [PhosLo] 667 mg PO TID-W/MEALS cap 04/22/18 08/03/18 Rx HYDROcodone/APAP 7.5-325MG [[place] 1 tab PO Q6H PRN 06/29/18 08/03/18 History 7.5-325] amLODIPine [Norvasc] 5 mg PO DAILY 06/29/18 08/03/18 History LORazepam [Ativan] 0.5 mg PO BID PRN 08/03/18 08/03/18 History Allergies Allergy/AdvReac Type Severity Reaction Status Date / Time adhesive Allergy Rash/Hives Verified 08/03/18 19:19 Iodinated Contrast- Oral and Allergy KIDNEY Verified 08/03/18 19:19 IV Dye FAILURE metformin Allergy SUGAR Verified 08/03/18 19:19 LEVEL INCREASE Penicillins Allergy Rash/Hives Verified 08/03/18 19:19 Physical Exam Vitals: Vital Signs Temp Pulse Pulse Resp BP BP Pulse Ox 08/04/18 11:25 63 18 110/55 97 08/04/18 08:00 98.3 F 60 18 115/51 99 08/04/18 04:00 65 17 124/57 08/03/18 22:30 18 08/03/18 22:02 60 18 130/46 96 08/03/18 19:08 97.7 F 61 18 119/51 96 Intake and Output 08/03/18 08/04/18 08/04/18 22:59 06:59 14:59 Intake Total 680 Balance 680 Intake: Oral 680 Other: # Voids 1 1 Weight 101 kg 103.1 kg Results - Lab Results Most recent lab results Calcium 8.0 mg/dL (8.4-10.2) L 08/03/18 19:30 08/03/18 19:30 08/03/18 19:30 Assessment and Plan Plan: Assessment: 1. End-stage renal disease maintained on hemodialysis on a Friday schedule. 2. Hypertension with chronic kidney disease. Controlled. 3. Intermittent speech and handwriting difficulty. ?TIA. CT of the brain negative. Neurology following. 4. Insulin-dependent diabetes mellitus. 5. Chronic kidney disease mineral bone disease maintained on PhosLo. 6. Hyperkalemia secondary to chronic kidney disease and missed dialysis treatm ent. Better. Plan: Hemodialysis tomorrow. Follow-up echocardiogram and carotid ultrasound. Thank you for the consultation. I will continue to follow the patient with you during her hospital stay.
--- NOTE | 2018-08-04 13:35 | P.HPIM ---
History of Present Illness H&P Date: 08/04/18 Chief Complaint: TIA with numbness of the left side, hyperkalemia, advanced cardiac disease, 63-year-old morbidly obese female one of Dr. Gar's patient with multiple medical problem was known to have end-stage kidney disease on hemodialysis 3 times a week seen nephrology regular basis, patient is also seen cardiology and neurology in the past who is known to have chronic history of lower back pain, chronic history of neuropathy, hypertension hyperlipidemia and type 2 diabetes on insulin pump she had some lab apparently with potassium was 8 she was instructed to come to the emergency room to be seen and evaluated she ended up coming to the emergency department at [facility] last night potassium was 5.1 with patient was complaining of sign and symptom of TIA versus CVA with numbness in the left side and bothersome with slight weakness as well. Patient CAT scan of the brain showed multiple abnormalities from previous stroke mostly involving the left side of the brain with no bleed or growth or tumor. Patient was admitted to the hospital will be seen urology carotid and echo will be done and to be evaluated by physical therapy as well and if she is able to go for an MRI of the brain a repeat CAT scan all depend of the progress the next 24 hours. Review of Systems CONSTITUTIONAL: Well-developed no acute respiratory distress. Morbidly obese EYES: No icterus sclerae, no conjunctivitis. EARS, NOSE, MOUTH, THROAT, and FACE: No sore throat, lymphadenopathy, carotid bruits or deformity. RESPIRATORY: Mild shortness of breath cough wheezes. CARDIOVASCULAR: Positive PND at palpitation. GASTROINTESTINAL: No Abd pain, Nausea or vomiting, no Diarrhea or constipation, No GI Bleed, no distention or masses. GENITOURINARY: End-stage renal disease on hemodialysis 3 times a week. INTEGUMENT/BREAST: Negative for any muscular injury with mild osteoarthritis.. HEMATOLOGIC/LYMPHATIC: Negative for bleed or purpura. MUSCULOSKELTAL: Negative for Myalgia or arthralgia. NEURLOGICAL: TIA or CVA with left-sided weakness and slight blurred vision. BEHAVIORAL/PSYCH: Negative. ENDOCRINE: Negative. Past Medical History Past Medical History: Coronary Artery Disease (CAD), Chest Pain / Angina, Dementia, Diabetes Mellitus, Dialysis, Hyperlipidemia, Hypertension, Liver Disease, Myocardial Infarction (TN), Osteoarthritis (OA), Thyroid Disorder Additional Past Medical History / Comment(s): multiple TN's. ischemic cardiomyopathy. 12/29/15 STRESS WNL, ALLERGIC rhinitis,TN, CARDIO-PULMONARY ARREST 07/05/14 vertigo, hypertensive nephrosclerosis, Hepatitis A,Vitamin D deficiency, constipation, hx of a cat bit Last Myocardial Infarction Date:: 09/2013 History of Any Multi-Drug Resistant Organisms: MRSA Date of last positivie culture/infection: 09/27/17 MDRO Source:: rt breast Past Surgical History: Adenoidectomy, Appendectomy, Cholecystectomy, Heart Catheterization With Stent, Hysterectomy, Tonsillectomy Additional Past Surgical History / Comment(s): mary cataracts, LAP-BAND 2004, Laparoscopic cholecystectomy, FIBULA FX has metal pins in place,Left shoulder surgery, Hemodialysis Cataract bilateral with IOL, fistula and sx to" reroute it",gets dialysis fri-fri-fri. has insulin pump. no bp on left, excisional debreidment rt lower ext. Past Anesthesia/Blood Transfusion Reactions: Motion Sickness, Postoperative Nausea & Vomiting (PONV) Additional Past Anesthesia/Blood Transfusion Reaction / Comment(s): blood transfusion-pt stated they gave her medication for a reaction but does'nt rememebr what the reaction was Date of Last Stent Placement:: 2014 Past Psychological History: Anxiety, Bipolar, Depression Additional Psychological History / Comment(s): pt. lives alone in apartment, uses walker for ambulation and has a wheelchair for longer distances, pt. no longer drives and takes city transport or has friends take her to appts. pt. has glucose reader, power w/c, shower chair, railing in br, walker and insulin pump. Smoking Status: Never smoker Past Alcohol Use History: None Reported Past Drug Use History: None Reported - Past Family History Mother Family Medical History: Congestive Heart Failure (CHF), Diabetes Mellitus, Hypertension Father History Unknown: Yes Family Medical History: Diabetes Mellitus Brother(s) Family Medical History: Diabetes Mellitus, Hyperlipidemia Additional Family Medical History / Comment(s): Hypertension chronic kidney disease Medications and Allergies Home Medications Medication Instructions Recorded Confirmed Type Famotidine [Pepcid] 20 mg PO DAILY 04/29/14 08/03/18 History Aspirin EC [Ecotrin Low Dose] 81 mg PO DAILY 01/01/16 08/03/18 History Escitalopram [Lexapro] 20 mg PO DAILY 01/01/16 08/03/18 History busPIRone HCL 15 mg PO BID 01/01/16 08/03/18 History Atorvastatin [Lipitor] 80 mg PO HS 12/27/16 08/03/18 History Clopidogrel [Plavix] 75 mg PO DAILY 03/21/17 08/03/18 History Isosorbide Mononitrate ER [Imdur] 30 mg PO DAILY 03/21/17 08/03/18 History lamoTRIgine [LaMICtal] 100 mg PO DAILY@0800 07/01/17 08/03/18 History lamoTRIgine [LaMICtal] 150 mg PO HS@2100 07/01/17 08/03/18 History Insulin Aspart (For Pump) [NovoLOG 0.01 unit SQ-PUMP CONTINUOUS 09/22/17 08/03/18 History (For Pump)] Levothyroxine Sodium [Synthroid] 200 mcg PO DAILY@0600 09/22/17 08/03/18 History Furosemide [Lasix] 80 mg PO BID@0600,1400 10/13/17 08/03/18 History Calcium Acetate [PhosLo] 667 mg PO TID-W/MEALS cap 04/22/18 08/03/18 Rx HYDROcodone/APAP 7.5-325MG [[place] 1 tab PO Q6H PRN 06/29/18 08/03/18 History 7.5-325] amLODIPine [Norvasc] 5 mg PO DAILY 06/29/18 08/03/18 History LORazepam [Ativan] 0.5 mg PO BID PRN 08/03/18 08/03/18 History Allergies Allergy/AdvReac Type Severity Reaction Status Date / Time adhesive Allergy Rash/Hives Verified 08/03/18 19:19 Iodinated Contrast- Oral and Allergy KIDNEY Verified 08/03/18 19:19 IV Dye FAILURE metformin Allergy SUGAR Verified 08/03/18 19:19 LEVEL INCREASE Penicillins Allergy Rash/Hives Verified 08/03/18 19:19 Physical Exam Vitals: Vital Signs Temp Pulse Pulse Resp BP BP Pulse Ox 08/04/18 11:25 63 18 110/55 97 08/04/18 08:00 98.3 F 60 18 115/51 99 08/04/18 04:00 65 17 124/57 08/03/18 22:30 18 05/20/19 22:02 60 18 130/46 96 08/03/18 19:08 97.7 F 61 18 119/51 96 Intake and Output 08/03/18 08/04/18 08/04/18 22:59 06:59 14:59 Intake Total 680 Balance 680 Intake: Oral 680 Other: # Voids 1 1 Weight 101 kg 103.1 kg General Appearance: Alert, cooperative, no distress, appears stated age. Morbidly obese Neck HEENT: Supple, no lymphadenopathy, no thyroid enlargement, no carotid bruits. Lungs: Decreased expansion of the respiration no crackles possible mild rhonchi with mild expiratory wheezes. Chest Wall: Decrease expansion with deep inspiration no tenderness and no deformity was found on exam, no costochondral pain or discomfort. Heart: Regular rate and rhythm, S1, S2 normal, positive cardiac murmur systolic no rub or gallop. Back: Symmetric, no curvature, ROM normal, no CVA tenderness. Abdomen: Soft, non-tender, bowel sounds active all four quadrants, no masses, no organomegaly. Extremities: 1+ edema slight discoloration from the knee down decreased pulses dorsalis pedis bilaterally. Pulses: 2+ and symmetric. Skin: Skin color, texture, tugor normal, no rashes or lesions. Neurologic: Alert oriented moving all her 4 extremity has slight weakness in the left side compared to the right side not been able to do balance and gait exam. Results CBC & Chem 7: 08/03/18 19:30 08/03/18 19:30 Labs: Abnormal Lab Results - Last 24 Hours (Table) 08/03/18 08/03/18 08/03/18 Range/Units 19:30 19:30 23:11 RBC 3.50 L (3.80-5.40) m/uL Hgb 9.9 L D (11.4-16.0) gm/dL Hct 32.9 L (34.0-46.0) % MCHC 30.2 L (31.0-37.0) g/dL RDW 17.0 H (11.5-15.5) % Lymphocytes # 0.6 L (1.0-4.8) k/uL Sodium 136 L (137-145) mmol/L Chloride 97 L (98-107) mmol/L BUN 22 H (7-17) mg/dL Creatinine 4.34 H (0.52-1.04) mg/dL Glucose 290 H (74-99) mg/dL POC Glucose (mg/dL) 205 H (75-99) mg/dL Calcium 8.0 L (8.4-10.2) mg/dL 08/04/18 Range/Units 05:59 RBC (3.80-5.40) m/uL Hgb (11.4-16.0) gm/dL Hct (34.0-46.0) % MCHC (31.0-37.0) g/dL RDW (11.5-15.5) % Lymphocytes # (1.0-4.8) k/uL Sodium (137-145) mmol/L Chloride (98-107) mmol/L BUN (7-17) mg/dL Creatinine (0.52-1.04) mg/dL Glucose (74-99) mg/dL POC Glucose (mg/dL) 165 H (75-99) mg/dL Calcium (8.4-10.2) mg/dL Thrombosis Risk Factor Assmnt - DVT/VTE Prophylaxis DVT/VTE Prophylaxis: Pharmacologic Prophylaxis ordered, Mechanical Prophylaxis ordered - Choose All That Apply Any of the Below Risk Factors Present?: Yes Each Factor Represents 1 point: Obesity (BMI >25) Other Risk Factors: Yes Each Risk Factor Represents 2 Points: Age 61-74 years Thrombosis Risk Factor Assessment Total Risk Factor Score: 3 Thrombosis Risk Factor Assessment Level: Moderate Risk Assessment and Plan Plan: 1 CVA versus TIA: Patient be admitted to the hospital continue neuro exam every 4 hours, neuro consultation be done, echocardiogram carotid ultrasound bus monitor and neuro consultation be done. Whether to repeat another CAT scan or on an MRI of the brain TO be determined especially with the progress the next 24 hours. 2 severe hyperkalemia: Apparently had testing was before dialysis patient is down to 5.1 no need for any further management continue hemodialysis on time. 3 end-stage renal disease on hemodialysis 3 times a week we'll consult nephrology and continue dialysis as planned. 4 post cardiac heart disease: With multiple angioplasty and stent placement has been on secondary prevention remain on atorvastatin along with isosorbide and amlodipine. 5 type 2 diabetes on insulin: Patient is on insulin pump repeat A1c was in the hospital. 6 chronic cardiopathy: Most likely ischemic and nonischemic combination continue patient on hemodialysis, continue amlodipine, isosorbide, furosemide and Plavix. 7 chronic depression: Has been on Lamictal Ativan and BuSpar. 8 chronic pain syndrome: Patient has been on hydrocodone an as-needed basis. 9 chronic iron deficiency anemia: Continue iron supplement and Procrit. 10 GI prophylaxis: Remain on Pepcid 20 mg daily. 11 DVT prophylaxis: Early mobilization and physical therapy continue patient Plavix and aspirin and if able to Will add heparin subcutaneous. CODE STATUS: Full code. Admit patient to inpatient service for more than 2 nights.
--- NOTE | 2018-08-04 13:49 | US ---
EXAMINATION TYPE: US carotid duplex BILAT DATE OF EXAM: 08/04/2018 COMPARISON: NONE CLINICAL HISTORY: Possible TIA. TIA, slurred speech, left sided weakness, exam done portable. EXAM MEASUREMENTS: RIGHT: Peak Systolic Velocity (PSV) cm/sec ----- Right CCA: 84.1 ----- Right ICA: 87.1 ----- Right ECA: 160.1 ICA/CCA ratio: 1.0 RIGHT: End Diastole cm/sec ----- Right CCA: 10.4 ----- Right ICA: 21.2 ----- Right ECA: 0.0 LEFT: Peak Systolic Velocity (PSV) cm/sec ----- Left CCA: 81.9 ----- Left ICA: 92.1 ----- Left ECA: 118.9 ICA/CCA ratio: 1.1 LEFT: End Diastole cm/sec ----- Left CCA: 0.0 ----- Left ICA: 21.0 ----- Left ECA: 0.0 VERTEBRALS (direction of flow): Right Vertebral: Antegrade Left Vertebral: Antegrade Rhythm: Normal Bilateral intimal thickening, plaque bilateral bulb, elevated velocity: right proximal ECA, no signif icant stenosis. IMPRESSION: Mild degree of grayscale atheromatous plaquing with no sonographically evident hemodynam ically significant stenosis within either internal or common carotid artery. Criteria for Assigning % of Stenosis / Diameter reduction (Estimation based on the indirect measurements of the internal carotid artery velocities (ICA PSV). 1. Normal (no stenosis)=ICA PSV < 125 cm/s: ratio < 2.0: ICA EDV<40 cm/s. 2. Less than 50% stenosis=ICA PSV < 125 cm/s: ratio < 2.0: ICA EDV<40 cm/s. 3. 50 to 69% stenosis=ICA PSV of 125 to 230 cm/s: ration 2.0 ? 4.0: ICA EDV 40-100 cm/s. 4. Greater than 70% stenosis to near occlusion= ICA PSV > 230 cm/s: ratio > 4.0: ICA EDV > 100 cm/s. 5. Near occlusion= ICA PSV velocities may be low or undetectable: variable ratio and ICA EDV. 6. Total occlusion=unable to detect flow.
[2018-08-04 15:03] VITALS: BMI 36.6
[2018-08-04 16:08] LABS: Folate, Serum 4.4 ng/mL
[2018-08-04 17:00] LABS: Glucose,Whole Blood 62 mg/dL (75-99)
[2018-08-04 17:00] LABS: Glucose,Whole Blood 101 mg/dL (75-99)
[2018-08-04 20:55] LABS: Glucose,Whole Blood 120 mg/dL (75-99)
[2018-08-04] MEDS ORDERED: ATORVASTATIN 80 MG TAB PO SCH (21:00)
[2018-08-04] MEDS ORDERED: lamoTRIgine 100 MG TAB PO SCH (21:00)
[2018-08-05 04:58] LABS: Glucose,Whole Blood 148 mg/dL (75-99)
[2018-08-05 06:18] LABS: Glucose,Whole Blood 142 mg/dL (75-99)
[2018-08-05] MEDS: FUROSEMIDE 80 MG TAB PO SCH (06:32)
[2018-08-05] MEDS: CALCIUM ACETATE 667 MG CAP PO SCH ×2 (06:32→13:14)
[2018-08-05] MEDS: LEVOTHYROXINE 100 MCG TAB PO SCH (06:32)
--- NOTE | 2018-08-05 08:00 | ECHOF ---
Referral Reason:TIA MEASUREMENTS -------- HEIGHT: 167.6 cm WEIGHT: 103.0 kg BP: 115/51 RVIDd: 3.6 cm (< 3.3) IVSd: 1.2 cm (0.6 - 1.1) LVIDd: 4.5 cm (3.9 - 5.3) LVPWd: 1.2 cm (0.6 - 1.1) IVSs: 1.8 cm LVIDs: 2.7 cm LVPWs: 1.6 cm LA Diam: 3.9 cm (2.7 - 3.8) LAESV Index (A-L): 22.71 ml/m Ao Diam: 3.4 cm (2.0 - 3.7) AV Cusp: 1.8 cm (1.5 - 2.6) MV EXCURSION: 11.063 mm (> 18.000) MV EF SLOPE: 50 mm/s (70 - 150) EPSS: 0.9 cm MV E Errol: 1.27 m/s MV DecT: 233 ms MV A Errol: 0.55 m/s MV E/A Ratio: 2.30 RAP: 5.00 mmHg RVSP: 54.49 mmHg FINDINGS -------- Sinus rhythm. This was a technically good study. The left ventricular size is normal. There is borderline concentric left ventricular hypertrophy. Overall left ventricular systolic function is normal with, an EF between 55 - 60 %. The right ventricle is mildly enlarged. Normal LA size by volume 22+/-6 ml/m2. The right atrium is normal in size. Contrast study was performed with 2 iv injections of 8 ccs of agitated normal saline, at rest, and wi th cough. Interatrial and interventricular septum intact. Aneurysmal Interatrial septum. There is mild aortic valve sclerosis. The mitral valve leaflets are mildly thickened. Mild mitral annular calcification present. Mild m itral regurgitation is present. [id number] tricuspid regurgitation present. There is moderate pulmonary hypertension. The r ight ventricular systolic pressure, as measured by Doppler, is 54.49mmHg. Trace/mild (physiologic) pulmonic regurgitation. The aortic root size is normal. Normal inferior vena cava with normal inspiratory collapse consistent with estimated right atrial pre ssure of 5 mmHg. There is no pericardial effusion. CONCLUSIONS -------- 1. Sinus rhythm. 2. This was a technically good study. 3. The left ventricular size is normal. 4. There is borderline concentric left ventricular hypertrophy. 5. Overall left ventricular systolic function is normal with, an EF between 55 - 60 %. 6. The right ventricle is mildly enlarged. 7. Normal LA size by volume 22+/-6 ml/m2. 8. The right atrium is normal in size. 9. Contrast study was performed with 2 iv injections of 8 ccs of agitated normal saline, at rest, and with cough. 10. Interatrial and interventricular septum intact. 11. Aneurysmal Interatrial septum. 12. There is mild aortic valve sclerosis. 13. The mitral valve leaflets are mildly thickened. 14. Mild mitral annular calcification present. 15. Mild mitral regurgitation is present. 16. [id number] tricuspid regurgitation present. 17. There is moderate pulmonary hypertension. 18. The right ventricular systolic pressure, as measured by Doppler, is 54.49mmHg. 19. Trace/mild (physiologic) pulmonic regurgitation. 20. The aortic root size is normal. 21. Normal inferior vena cava with normal inspiratory collapse consistent with estimated right atrial pressure of 5 mmHg. 22. There is no pericardial effusion. LEARNING SERVICES COORDINATOR: Traci Jean RDCS
[2018-08-05] MEDS: INSULIN PUMP MEAL BOLUS 1 UNIT MISC MISCELLANE SCH ×2 (08:16→13:22)
[2018-08-05] MEDS ORDERED: MINERAL OIL-WHITE PETROLATUM 120 GM JAR TOPICAL PRN (10:48)
[2018-08-05 11:38] LABS: Glucose,Whole Blood 135 mg/dL (75-99)
--- NOTE | 2018-08-05 12:25 | P.PN ---
Subjective Patient is seen in follow-up for end-stage renal disease. She is maintained on hemodialysis on a Friday schedule. Currently seen while undergoing hemodialysis. Denies chest pain or shortness of breath. Feels better today. Vital signs are stable. General: The patient appeared well nourished and normally developed. HEENT: Head exam is unremarkable. Neck is without jugular venous distension. LUNGS: Lungs are clear to auscultation and percussion. Breath sounds decreased. HEART: Rate and Rhythm are regular. First and second heart sounds normal. No murmurs, rubs or gallops. ABDOMEN: Abdominal exam reveals normal bowel sounds. Non-tender and non- distended. No evidence of peritonitis. EXTREMITITES: No clubbing, cyanosis, or edema. Objective - Vital Signs Vital signs: Vital Signs Temp 98.3 F 08/05/18 08:00 Pulse 60 08/05/18 11:51 Resp 16 08/05/18 11:51 BP 134/53 08/05/18 11:51 Pulse Ox 100 08/05/18 11:51 Intake & Output 08/04/18 08/05/18 08/05/18 18:59 06:59 18:59 Intake Total 920 240 Balance 920 240 Weight 103.1 kg 106 kg Intake: Oral 920 240 Other: # Voids 1 # Bowel Movements 1 - Labs CBC & Chem 7: 08/03/18 19:30 08/03/18 19:30 Labs: Abnormal Lab Results - Last 24 Hours (Table) 08/03/18 08/04/18 08/04/18 Range/Units 19:30 16:27 16:48 POC Glucose (mg/dL) 62 L 101 H (75-99) mg/dL Lamotrigine 1.8 L (2.0-15.0) ug/mL 08/04/18 08/05/18 08/05/18 Range/Units 20:52 04:55 06:16 POC Glucose (mg/dL) 120 H 148 H 142 H (75-99) mg/dL Lamotrigine (2.0-15.0) ug/mL 08/05/18 Range/Units 11:28 POC Glucose (mg/dL) 135 H (75-99) mg/dL Lamotrigine (2.0-15.0) ug/mL Assessment and Plan Plan: Assessment: 1. End-stage renal disease maintained on hemodialysis on a Friday schedule. 2. Hypertension with chronic kidney disease. Controlled. 3. Intermittent speech and handwriting difficulty. ?TIA. CT of the brain negative. Neurology following. Carotid ultrasound benign. 4. Insulin-dependent diabetes mellitus. 5. Chronic kidney disease mineral bone disease maintained on PhosLo. 6. Hyperkalemia secondary to chronic kidney disease and missed dialysis treatment. Better. Plan: Currently seen while undergoing hemodialysis. Stable to be discharged home from nephrology standpoint.
[2018-08-05] MEDS ORDERED: FOLIC ACID 1 MG TAB PO SCH (12:45)
--- NOTE | 2018-08-05 13:02 | P.PN ---
Subjective Progress Note Date: 08/05/18 Patient states she is feeling much better. He does not feel as stressed. Sometimes shakes. Offers no new complaints. Patient underwent blood testing in which her B12 is 477, folic acid is low 4.4. TFTs normal. Carotid Doppler showed mild degree of atheromatous plaque with no significant stenosis. A ntegrade throwing both vertebral arteries. Hemoglobin A1c 6.7. Objective - Vital Signs Vital signs: Vital Signs Temp 97.0 F L 08/05/18 11:51 Pulse 60 08/05/18 11:51 Resp 16 08/05/18 11:51 BP 134/53 08/05/18 11:51 Pulse Ox 100 08/05/18 11:51 Intake & Output 08/04/18 08/05/18 08/05/18 18:59 06:59 18:59 Intake Total 920 480 Balance 920 480 Weight 103.1 kg 106 kg Intake: Oral 920 480 Other: # Voids 1 # Bowel Movements 1 - Exam Patient is laying comfortably in the bed, having her lunch. Detail examination deferred. - Labs CBC & Chem 7: 08/03/18 19:30 08/03/18 19:30 Labs: Abnormal Lab Results - Last 24 Hours (Table) 08/03/18 08/04/18 08/04/18 Range/Units 19:30 16:27 16:48 POC Glucose (mg/dL) 62 L 101 H (75-99) mg/dL Lamotrigine 1.8 L (2.0-15.0) ug/mL 08/04/18 08/05/18 08/05/18 Range/Units 20:52 04:55 06:16 POC Glucose (mg/dL) 120 H 148 H 142 H (75-99) mg/dL Lamotrigine (2.0-15.0) ug/mL 08/05/18 Range/Units 11:28 POC Glucose (mg/dL) 135 H (75-99) mg/dL Lamotrigine (2.0-15.0) ug/mL Assessment and Plan Assessment: * Intermittent speech difficulty, with hesitancy for certain words, unclear etiology. Symptoms do not appear typical TIA. * Intermittent problems with handwriting, mainly in the afternoon and evening hours. Again symptoms do not appear typical TIA. * Intermittent myoclonic jerks, probably metabolic. * Diabetes * End-stage renal disease on hemodialysis * Pacemaker for arrhythmia. * Hyperthyroidism, as per last thyroid functions. * Obesity * Folate deficiency Plan: * Carotid Doppler showed no significant carotid stenosis. * 2-D echo with bubble study showed borderline concentric LVH, EF 55-60%. Right ventricle is mildly enlarged. Left atrial size normal. Bubble study was negative for interatrial and interventricular septal defect. No PFO. There is aneurysmal interatrial septum. * Continue aspirin 81 mg, Plavix and statins. * Lamictal level pending, B12 477, folate 4.4, we'll start replacement with folic acid 1 mg daily, thyroid functions normal. * Avoid narcotics/opiates, which can trigger myoclonic jerks. * Neurologically clear for discharge.
[2018-08-05] MEDS: FAMOTIDINE 20 MG TAB PO SCH (13:14)
[2018-08-05] MEDS: lamoTRIgine 100 MG TAB PO SCH (13:14)
[2018-08-05] MEDS: N PO SCH (13:15)
[2018-08-05] MEDS: CLOPIDOGREL 75 MG TAB PO SCH (13:15)
[2018-08-05] MEDS: amLODIPine 5 MG TAB PO SCH (13:15)
[2018-08-05] MEDS: ESCITALOPRAM 20 MG TAB PO SCH (13:15)
[2018-08-05] MEDS: busPIRone HCl 5 MG TAB PO SCH (13:15)
[2018-08-05] MEDS: ISOSORBIDE MONONITRATE ER 30 MG TAB.ER.24H PO SCH (13:22)
[2018-08-05 15:45] VITALS: BP 134/51; PULSE 62; RESP 17; TEMP 97.5
--- NOTE | 2018-08-07 13:50 | P.DS ---
Providers Date of admission: 08/03/18 21:54 Expected date of discharge: 08/05/18 Attending physician: Josué Akers Consults: 08/03/18 21:56 Consult Physician Routine Consulting Provider: Elaine Snider Consult Reason/Comments: ro tia Do you want consulting provider notified?: Yes 08/04/18 00:48 Consult Physician Routine Consulting Provider: Cherie Talley Consult Reason/Comments: ESRD Do you want consulting provider notified?: Yes Primary care physician: Kimberli Gar Hospital Course: 63-year-old morbidly obese female one of Dr. Gar's patient with multiple medical problem was known to have end-stage kidney disease on hemodialysis 3 times a week seen nephrology regular basis, patient is also seen cardiology and neurology in the past who is known to have chronic history of lower back pain, chronic history of neuropathy, hypertension hyperlipidemia and type 2 diabetes on insulin pump she had some lab apparently with potassium was 8 she was instructed to come to the emergency room to be seen and evaluated she ended up coming to the emergency department at [facility] last night potassium was 5.1 with patient was complaining of sign and symptom of TIA versus CVA with numbness in the left side and bothersome with slight weakness as well. Patient CAT scan of the brain showed multiple abnormalities from previous stroke mostly involving the left side of the brain with no bleed or growth or tumor. Patient was admitted to the hospital will be seen urology carotid and echo will be done and to be evaluated by physical therapy as well and if she is able to go for an MRI of the brain a repeat CAT scan all depend of the progress the next 24 hours. 08/05: Echocardiogram reveals EF of 55-60%, mild aortic valve sclerosis, mild mitral regurgitation, mild to moderate tricuspid regurgitation, moderate pulmonary hypertension. Carotid duplex shows no hemodynamically significant stenosis. Patient has been followed by Dr. Souza with plan to complete hemodialysis today and patient is cleared for discharge home. Patient has also been seen by Dr. Snider reveals symptoms do not appear to be typical for TIA. Patient has been cleared for discharge home. Intermittent myoclonic jerks probably metabolic related. Patient denies any new complaints. She is anxious to be discharged home. Patient will be discharged home today in stable condition. No changes in home medication regime. Discharge diagnoses: 1 possible TIA, most likely metabolic related. 2 severe hyperkalemia secondary to kidney disease 3 end-stage renal disease on hemodialysis 4 coronary artery disease status post multiple angioplasty and stent placement 5 type 2 diabetes on insulin 6 chronic cardiopathy: Most likely ischemic and nonischemic combination 7 recurrent depression 8 chronic pain syndrome 9 anemia of chronic kidney disease Discharge plan: Home Impression and plan of care have been directed as dictated by the signing physician. Emely Contreras nurse practitioner acting as scribe for signing physician. Patient Condition at Discharge: Good Plan - Discharge Summary Discharge Rx Participant: No New Discharge Prescriptions: Continue Famotidine [Pepcid] 20 mg PO DAILY busPIRone HCL 15 mg PO BID Escitalopram [Lexapro] 20 mg PO DAILY Aspirin EC [Ecotrin Low Dose] 81 mg PO DAILY Atorvastatin [Lipitor] 80 mg PO HS Isosorbide Mononitrate ER [Imdur] 30 mg PO DAILY Clopidogrel [Plavix] 75 mg PO DAILY lamoTRIgine [LaMICtal] 100 mg PO DAILY@0800 lamoTRIgine [LaMICtal] 150 mg PO HS@2100 Levothyroxine Sodium [Synthroid] 200 mcg PO DAILY@0600 Insulin Aspart (For Pump) [NovoLOG (For Pump)] 0.01 unit SQ-PUMP CONTINUOUS Furosemide [Lasix] 80 mg PO BID@0600,1400 Calcium Acetate [PhosLo] 667 mg PO TID-W/MEALS cap amLODIPine [Norvasc] 5 mg PO DAILY HYDROcodone/APAP 7.5-325MG [Taylor 7.5-325] 1 tab PO Q6H PRN PRN Reason: Pain LORazepam [Ativan] 0.5 mg PO BID PRN PRN Reason: Agitation Or Acute Anxiety Discharge Medication List Famotidine [Pepcid] 20 mg PO DAILY 04/29/14 [History] Aspirin EC [Ecotrin Low Dose] 81 mg PO DAILY 01/01/16 [History] Escitalopram [Lexapro] 20 mg PO DAILY 01/01/16 [History] busPIRone HCL 15 mg PO BID 01/01/16 [History] Atorvastatin [Lipitor] 80 mg PO HS 12/27/16 [History] Clopidogrel [Plavix] 75 mg PO DAILY 03/21/17 [History] Isosorbide Mononitrate ER [Imdur] 30 mg PO DAILY 03/21/17 [History] lamoTRIgine [LaMICtal] 100 mg PO DAILY@0800 07/01/17 [History] lamoTRIgine [LaMICtal] 150 mg PO HS@2100 07/01/17 [History] Insulin Aspart (For Pump) [NovoLOG (For Pump)] 0.01 unit SQ-PUMP CONTINUOUS 09/22/17 [History] Levothyroxine Sodium [Synthroid] 200 mcg PO DAILY@0600 09/22/17 [History] Furosemide [Lasix] 80 mg PO BID@0600,1400 10/13/17 [History] Calcium Acetate [PhosLo] 667 mg PO TID-W/MEALS cap 04/22/18 [Rx] HYDROcodone/APAP 7.5-325MG [Taylor 7.5-325] 1 tab PO Q6H PRN 06/29/18 [History] amLODIPine [Norvasc] 5 mg PO DAILY 06/29/18 [History] LORazepam [Ativan] 0.5 mg PO BID PRN 08/03/18 [History] Follow up Appointment(s)/Referral(s): [facility], [NON-STAFF] - Kimberli Gar MD [Primary Care Provider] - 1 Week (Per office policy I cannot make this appointment for you. Please call to schedule) Tate Souza DO [STAFF PHYSICIAN] - 1 Week (Please keep scheduled dialysis appointments) Patient Instructions/Handouts: Transient Ischemic Attack (DC) Discharge Disposition: HOME WITH HOME HEALTH SERVICES
== END 2018-08-05 13:42 | disposition home health service (06) ==
LOC: EC 19:05 → 3SCARD 21:54
PROVIDERS: ADMIT Internal Medicine Geriatric Medicine; ATTEND Internal Medicine Geriatric Medicine
DX: E87.5 Hyperkalemia (principal); G25.3 Myoclonus; R47.9 Unspecified speech disturbances; I13.11 Hypertensive heart and chronic kidney disease without heart failure, with stage 5 chronic kidney disease, or end stage renal disease; N18.6 End stage renal disease; E11.22 Type 2 diabetes mellitus with diabetic chronic kidney disease; I25.10 Atherosclerotic heart disease of native coronary artery without angina pectoris; G89.4 Chronic pain syndrome; D63.1 Anemia in chronic kidney disease; I27.20 Pulmonary hypertension, unspecified; R29.818 Other symptoms and signs involving the nervous system; R20.0 Anesthesia of skin; R53.1 Weakness; I08.3 Combined rheumatic disorders of mitral, aortic and tricuspid valves; M54.5 Low back pain; E78.5 Hyperlipidemia, unspecified; E11.42 Type 2 diabetes mellitus with diabetic polyneuropathy; G93.89 Other specified disorders of brain; F03.90 Unspecified dementia, unspecified severity, without behavioral disturbance, psychotic disturbance, mood disturbance, and anxiety; E66.01 Morbid (severe) obesity due to excess calories; Z68.37 Body mass index [BMI] 37.0-37.9, adult; E55.9 Vitamin D deficiency, unspecified; B15.9 Hepatitis A without hepatic coma; M19.90 Unspecified osteoarthritis, unspecified site; Z91.81 History of falling; N25.0 Renal osteodystrophy; J45.909 Unspecified asthma, uncomplicated; I25.5 Ischemic cardiomyopathy; D50.9 Iron deficiency anemia, unspecified; E05.90 Thyrotoxicosis, unspecified without thyrotoxic crisis or storm; K59.00 Constipation, unspecified; F31.9 Bipolar disorder, unspecified; Z91.15 Patient's noncompliance with renal dialysis; F41.9 Anxiety disorder, unspecified; Z79.82 Long term (current) use of aspirin; Z79.02 Long term (current) use of antithrombotics/antiplatelets; Z79.890 Hormone replacement therapy; Z79.899 Other long term (current) drug therapy; Z91.041 Radiographic dye allergy status; Z88.0 Allergy status to penicillin; Z88.8 Allergy status to other drugs, medicaments and biological substances; Z91.048 Other nonmedicinal substance allergy status; Z99.2 Dependence on renal dialysis; Z96.41 Presence of insulin pump (external) (internal); Z95.5 Presence of coronary angioplasty implant and graft; I25.2 Old myocardial infarction; Z95.0 Presence of cardiac pacemaker; Z86.74 Personal history of sudden cardiac arrest; Z86.14 Personal history of Methicillin resistant Staphylococcus aureus infection; Z98.42 Cataract extraction status, left eye; Z98.41 Cataract extraction status, right eye; Z96.1 Presence of intraocular lens; Z90.49 Acquired absence of other specified parts of digestive tract; Z86.73 Personal history of transient ischemic attack (TIA), and cerebral infarction without residual deficits; Z90.710 Acquired absence of both cervix and uterus; Z98.84 Bariatric surgery status; Z83.3 Family history of diabetes mellitus; Z82.49 Family history of ischemic heart disease and other diseases of the circulatory system; Z84.1 Family history of disorders of kidney and ureter
CPT/HCPCS: 99285; 36415; 93005; 93306; 84439; 80048; 80175; 84443; 82607; 82746; 85025; 71046; 93880; 70450; G0378 ×3; 90935

== ENCOUNTER 2018-08-13 15:54 | Emergency (ER) | payer MEDICARE, OTHER ==
[2018-08-13 16:35] VITALS: PULSE 60
[2018-08-13 17:25] LABS: Glucose,Whole Blood 116 mg/dL (75-99)
[2018-08-13 17:28] LABS: Anisocytosis Slight; Basophils % (A) 0 %; Eosinophils # (A) 0.3 k/uL (0-0.7); Eosinophils % (A) 5 %; HGB 10.2 gm/dL (11.4-16.0); Hypochromasia Slight; Lymphocytes # (A) 0.7 k/uL (1.0-4.8); Lymphocytes % (A) 12 %; MCHC 31.9 g/dL (31.0-37.0); MCV 90.8 fL (80.0-100.0); Mean Platelet Volume 7.8; Monocytes # (A) 0.3 k/uL (0-1.0); Monocytes % (A) 5 %; Neutrophils # (A) 4.3 k/uL (1.3-7.7); Neutrophils % (A) 76 %; Platelet Count 229 k/uL (150-450); RBC 3.52 m/uL (3.80-5.40); RDW 16.3 % (11.5-15.5); WBC 5.6 k/uL (3.8-10.6)
[2018-08-13 17:40] LABS: Albumin 4.2 g/dL (3.5-5.0); Potassium 5.6 mmol/L (3.5-5.1); Total Bilirubin 0.6 mg/dL (0.2-1.3)
--- NOTE | 2018-08-13 18:09 | ED ---
Psych HPI - General Source: patient, RN notes reviewed Mode of arrival: ambulatory Limitations: no limitations <Tarun Chopra - Last Filed: 08/13/18 20:22> <Parish Roldan - Last Filed: 08/13/18 20:40> - General Chief Complaint: Psychiatric Symptoms Stated Complaint: Mental Health Time Seen by Provider: 08/13/18 16:44 - History of Present Illness Initial Comments: 63-year-old female presents emergency Department with chief complaint of psychiatric evaluation. Patient sent over from outpatient counseling secondary to thoughts of not wanting to live anymore. Patient states that she just has a flat affect. Patient states she just does not have the drive to live. Patient does not have suicidal plan. Patient denies any illicit drug use no alcohol abuse. Patient states that she is on dialysis secondary to renal failure from diabetes. Patient states that she did not go yesterday as she is scheduled. Patient denies any abdominal pain, nausea vomiting or shortness of breath. Patient's counselor stated that she was making female arrangements and she is suicidal. (Tarun Chopra) Patient case was discussed with patient's trim die maker. He is aware of her potassium level. Patient verbally contracts to go to dialysis tomorrow. Patient clear for discharge. Patient cleared by psychiatry. (Parish Roldan) - Related Data Home Medications Medication Instructions Recorded Confirmed Famotidine [Pepcid] 20 mg PO DAILY 04/29/14 08/13/18 Aspirin EC [Ecotrin Low Dose] 81 mg PO DAILY 01/01/16 08/13/18 Escitalopram [Lexapro] 20 mg PO DAILY 01/01/16 08/13/18 busPIRone HCL 15 mg PO BID 01/01/16 08/13/18 Atorvastatin [Lipitor] 80 mg PO HS 12/27/16 08/13/18 Clopidogrel [Plavix] 75 mg PO DAILY 03/21/17 08/13/18 Isosorbide Mononitrate ER [Imdur] 30 mg PO DAILY 03/21/17 08/13/18 lamoTRIgine [LaMICtal] 100 mg PO DAILY@0800 07/01/17 08/13/18 lamoTRIgine [LaMICtal] 150 mg PO HS@2100 07/01/17 08/13/18 Insulin Aspart (For Pump) [NovoLOG 0.01 unit SQ-PUMP CONTINUOUS 09/22/17 08/13/18 (For Pump)] Furosemide [Lasix] 80 mg PO BID@0600,1400 10/13/17 08/13/18 LORazepam [Ativan] 0.5 mg PO BID PRN 08/03/18 08/13/18 Folic Acid 1 mg PO DAILY 08/13/18 08/13/18 Gabapentin [Neurontin] 100 mg PO TID 08/13/18 08/13/18 Levothyroxine Sodium [Synthroid] 175 mcg PO DAILY 08/13/18 08/13/18 Metoprolol Tartrate [Lopressor] 25 mg PO DAILY 08/13/18 08/13/18 amLODIPine [Norvasc] 10 mg PO DAILY 08/13/18 08/13/18 Allergies Allergy/AdvReac Type Severity Reaction Status Date / Time adhesive Allergy Rash/Hives Verified 08/13/18 17:23 Iodinated Contrast- Oral and Allergy KIDNEY Verified 08/13/18 17:23 IV Dye FAILURE metformin Allergy SUGAR Verified 08/13/18 17:23 LEVEL INCREASE Penicillins Allergy Rash/Hives Verified 08/13/18 17:23 Review of Systems ROS Other: All systems not noted in ROS Statement are negative. <Tarun Chopra - Last Filed: 08/13/18 20:22> ROS Other: All systems not noted in ROS Statement are negative. <Parish Roldan - Last Filed: 08/13/18 20:40> ROS Statement: Those systems with pertinent positive or pertinent negative responses have been documented in the HPI. Past Medical History Past Medical History: Coronary Artery Disease (CAD), Chest Pain / Angina, Dementia, Diabetes Mellitus, Dialysis, Hyperlipidemia, Hypertension, Liver Disease, Myocardial Infarction (DE), Osteoarthritis (OA), Thyroid Disorder Additional Past Medical History / Comment(s): multiple DE's. ischemic cardiomyopathy. 12/29/15 STRESS WNL, ALLERGIC rhinitis,DE, CARDIO-PULMONARY ARREST 07/05/14 vertigo, hypertensive nephrosclerosis, Hepatitis A,Vitamin D deficiency, constipation, hx of a cat bit Last Myocardial Infarction Date:: 09/2013 History of Any Multi-Drug Resistant Organisms: MRSA Date of last positivie culture/infection: 09/27/17 MDRO Source:: rt breast Past Surgical History: Adenoidectomy, Appendectomy, Cholecystectomy, Heart Catheterization With Stent, Hysterectomy, Tonsillectomy Additional Past Surgical History / Comment(s): mary cataracts, LAP-BAND 2005, Laparoscopic cholecystectomy, FIBULA FX has metal pins in place,Left shoulder surgery, Hemodialysis Cataract bilateral with IOL, fistula and sx to" reroute it",gets dialysis mon-wed-fri. has insulin pump. no bp on left, excisional debreidment rt lower ext. Past Anesthesia/Blood Transfusion Reactions: Motion Sickness, Postoperative Nausea & Vomiting (PONV) Additional Past Anesthesia/Blood Transfusion Reaction / Comment(s): blood transfusion-pt stated they gave her medication for a reaction but does'nt rememebr what the reaction was Date of Last Stent Placement:: 2014 Past Psychological History: Anxiety, Bipolar, Depression Smoking Status: Never smoker Past Alcohol Use History: None Reported Past Drug Use History: None Reported - Past Family History Mother Family Medical History: Congestive Heart Failure (CHF), Diabetes Mellitus, Hypertension Father History Unknown: Yes Family Medical History: Diabetes Mellitus Brother(s) Family Medical History: Diabetes Mellitus, Hyperlipidemia Additional Family Medical History / Comment(s): Hypertension chronic kidney disease <Tarun Chopra Filed: 08/13/18 20:22> General Exam Limitations: no limitations General appearance: alert, in no apparent distress Head exam: Present: atraumatic, normocephalic, normal inspection Eye exam: Present: normal appearance, PERRL, EOMI. Absent: scleral icterus, conjunctival injection, periorbital swelling ENT exam: Present: normal exam, normal oropharynx, mucous membranes moist Neck exam: Present: normal inspection. Absent: tenderness, meningismus, lymphadenopathy Respiratory exam: Present: normal lung sounds bilaterally. Absent: respiratory distress, wheezes, rales, rhonchi, stridor Cardiovascular Exam: Present: regular rate, normal rhythm, normal heart sounds. Absent: systolic murmur, diastolic murmur, rubs, gallop, clicks GI/Abdominal exam: Present: soft, normal bowel sounds. Absent: distended, tenderness, guarding, rebound, rigid Neurological exam: Present: alert, oriented X3, CN II-XII intact Psychiatric exam: Present: flat affect Skin exam: Present: warm, dry, intact, normal color. Absent: rash <Tarun Chopra - Last Filed: 08/13/18 20:22> Course Vital Signs 08/13/18 16:23 Temperature 97.5 F L Pulse Rate 60 Respiratory 18 Rate Blood Pressure 132/63 O2 Sat by Pulse 100 Oximetry Medical Decision Making - Lab Data Result diagrams: 08/13/18 17:10 08/13/18 17:10 <Tarun Chopra - Last Filed: 08/13/18 20:22> - Lab Data Result diagrams: 08/13/18 17:10 08/13/18 17:10 <Parish Roldan - Last Filed: 08/13/18 20:40> - Medical Decision Making 63-year-old female presented for psychiatric evaluation after seen concert today. Patient was evaluated by EPS and case discussed with on-call psychiatrist does not recommend inpatient treatment. Patient is not suicidal. She does have underlying depression. Patient did miss dialysis on Friday and which she has elevation of her creatinine and has mild hyperkalemia. Patient states she is going to dialysis in the morning. Dr. Roldan discuss case with Dr. Souza her trim die maker. (Tarun Chopra) - Lab Data Lab Results 08/13/18 08/13/18 08/13/18 Range/Units 17:10 17:10 17:23 WBC 5.6 (3.8-10.6) k/uL RBC 3.52 L (3.80-5.40) m/uL Hgb 10.2 L (11.4-16.0) gm/dL Hct 32.0 L (34.0-46.0) % MCV 90.8 (80.0-100.0) fL MCH 29.0 (25.0-35.0) pg MCHC 31.9 (31.0-37.0) g/dL RDW 16.3 H (11.5-15.5) % Plt Count 229 (150-450) k/uL Neutrophils % 76 % Lymphocytes % 12 % Monocytes % 5 % Eosinophils % 5 % Basophils % 0 % Neutrophils # 4.3 (1.3-7.7) k/uL Lymphocytes # 0.7 L (1.0-4.8) k/uL Monocytes # 0.3 (0-1.0) k/uL Eosinophils # 0.3 (0-0.7) k/uL Basophils # 0.0 (0-0.2) k/uL Hypochromasia Slight Anisocytosis Slight Sodium 134 L (137-145) mmol/L Potassium 5.6 H (3.5-5.1) mmol/L Chloride 96 L (98-107) mmol/L Carbon Dioxide 27 (22-30) mmol/L Anion Gap 11 mmol/L BUN 38 H (7-17) mg/dL Creatinine 7.26 H* (0.52-1.04) mg/dL Est GFR (CKD-EPI)AfAm 6 (>60 ml/min/1.73 sqM) Est GFR (CKD-EPI)NonAf 5 (>60 ml/min/1.73 sqM) Glucose 110 H (74-99) mg/dL POC Glucose (mg/dL) 116 H (75-99) mg/dL POC Glu Golf Course Designer Bacilio Meneses Calcium 8.0 L (8.4-10.2) mg/dL Total Bilirubin 0.6 (0.2-1.3) mg/dL AST 13 L (14-36) U/L ALT 9 (9-52) U/L Alkaline Phosphatase 68 (38-126) U/L Total Protein 7.0 (6.3-8.2) g/dL Albumin 4.2 (3.5-5.0) g/dL Disposition Is patient prescribed a controlled substance at d/c from ED?: No <Tarun Chopra M - Last Filed: 08/13/18 20:22> Is patient prescribed a controlled substance at d/c from ED?: No Time of Disposition: 20:40 <Parish Roldan - Last Filed: 08/13/18 20:40> Clinical Impression: Depression, ESRD (end stage renal disease), Hyperkalemia Disposition: HOME SELF-CARE Condition: Good Additional Instructions: Please return to the Emergency Department if symptoms worsen or any other concerns. Referrals: Kimberli Gar MD [Primary Care Provider] - 1-2 days
[2018-08-13 20:52] VITALS: BP 113/45; RESP 14; TEMP 97.7
== END 2018-08-13 21:20 | disposition home or self-care (01) ==
LOC: EC 15:54
DX: F31.30 Bipolar disorder, current episode depressed, mild or moderate severity, unspecified (principal); N18.6 End stage renal disease; E87.5 Hyperkalemia; R79.89 Other specified abnormal findings of blood chemistry; I12.0 Hypertensive chronic kidney disease with stage 5 chronic kidney disease or end stage renal disease; E11.22 Type 2 diabetes mellitus with diabetic chronic kidney disease; I25.119 Atherosclerotic heart disease of native coronary artery with unspecified angina pectoris; E78.5 Hyperlipidemia, unspecified; I25.2 Old myocardial infarction; M19.90 Unspecified osteoarthritis, unspecified site; F03.90 Unspecified dementia, unspecified severity, without behavioral disturbance, psychotic disturbance, mood disturbance, and anxiety; E07.9 Disorder of thyroid, unspecified; F41.9 Anxiety disorder, unspecified; Z88.0 Allergy status to penicillin; Z88.8 Allergy status to other drugs, medicaments and biological substances; Z91.041 Radiographic dye allergy status; Z91.048 Other nonmedicinal substance allergy status; Z96.41 Presence of insulin pump (external) (internal); Z79.4 Long term (current) use of insulin; Z79.01 Long term (current) use of anticoagulants; Z79.82 Long term (current) use of aspirin; Z79.890 Hormone replacement therapy; Z79.899 Other long term (current) drug therapy; Z86.14 Personal history of Methicillin resistant Staphylococcus aureus infection; Z95.5 Presence of coronary angioplasty implant and graft; Z99.2 Dependence on renal dialysis; Z84.1 Family history of disorders of kidney and ureter
CPT/HCPCS: 36415; 80053; 82075; 85025; 93005; 99285

== ENCOUNTER 2018-09-02 14:08 | Emergency (ER) | payer MEDICARE, OTHER ==
[2018-09-02] MEDS ORDERED: NITROGLYCERIN OINT 1 INCH/GM PACKET TOPICAL STA (14:17)
--- NOTE | 2018-09-02 14:21 | ED ---
General Adult HPI - General Stated complaint: Chest pressure Time Seen by Provider: 09/02/18 14:08 Source: RN notes reviewed - History of Present Illness Initial comments: This is a 63-year-old female who presents emergency Department with a complaint of chest pain. Patient states she was at dialysis today she started having ch est pain center of her chest that lasted about 15 minutes. Patient states she has a past medical history significant for multiple stones and states she has had 17 heart attacks. Patient states she is a diabetic and has high blood pressure and has high cholesterol for which she is being treated. Patient states currently she has no chest pain. Patient states the pain did not radiate anywhere. Patient denies any difficulty breathing or shortness of breath. Patient states she did have a little bit of a headache with the pain. Patient denies any abdominal pain patient denies nausea vomiting diarrhea. Patient denies any cough or shortness of breath. Patient denies any recent injury or trauma. Patient states she got almost all of her dialysis prior to think sent to the hospital - Related Data Home Medications Medication Instructions Recorded Confirmed Famotidine [Pepcid] 20 mg PO DAILY 04/29/14 09/02/18 Aspirin EC [Ecotrin Low Dose] 81 mg PO DAILY 01/01/16 09/02/18 Escitalopram [Lexapro] 20 mg PO DAILY 01/01/16 09/02/18 busPIRone HCL 15 mg PO BID 01/01/16 09/02/18 Atorvastatin [Lipitor] 80 mg PO HS 12/27/16 09/02/18 Clopidogrel [Plavix] 75 mg PO DAILY 03/21/17 09/02/18 Isosorbide Mononitrate ER [Imdur] 30 mg PO DAILY 03/21/17 09/02/18 lamoTRIgine [LaMICtal] 100 mg PO DAILY@0800 07/01/17 09/02/18 lamoTRIgine [LaMICtal] 150 mg PO HS@2100 07/01/17 09/02/18 Insulin Aspart (For Pump) [NovoLOG 0.01 unit SQ-PUMP CONTINUOUS 09/22/17 09/02/18 (For Pump)] LORazepam [Ativan] 0.5 mg PO HS PRN 08/03/18 09/02/18 Gabapentin [Neurontin] 100 mg PO BID 08/13/18 09/02/18 Metoprolol Tartrate [Lopressor] 25 mg PO DAILY 08/13/18 09/02/18 amLODIPine [Norvasc] 10 mg PO DAILY 08/13/18 09/02/18 Calcium Acetate [Phoslo] 667 mg PO BID 09/02/18 09/02/18 HYDROcodone/APAP 5-325MG [Reva 1 tab PO Q6HR PRN 09/02/18 09/02/18 5-325] LORazepam [Ativan] 0.5 mg PO QAM 09/02/18 09/02/18 Levothyroxine Sodium [Synthroid] 200 mcg PO DAILY 09/02/18 09/02/18 Orphenadrine [Norflex] 100 mg PO Q12H 09/02/18 09/02/18 Allergies Allergy/AdvReac Type Severity Reaction Status Date / Time adhesive Allergy Rash/Hives Verified 09/02/18 14:31 Penicillins Allergy Rash/Hives Verified 09/02/18 14:31 Iodinated Contrast- Oral and AdvReac KIDNEY Verified 09/02/18 14:31 IV Dye FAILURE metformin AdvReac SUGAR Verified 09/02/18 14:31 LEVEL INCREASE Review of Systems ROS Statement: Those systems with pertinent positive or pertinent negative responses have been documented in the HPI. ROS Other: All systems not noted in ROS Statement are negative. Past Medical History Past Medical History: Coronary Artery Disease (CAD), Chest Pain / Angina, Dementia, Diabetes Mellitus, Dialysis, Hyperlipidemia, Hypertension, Liver Disease, Myocardial Infarction (RI), Osteoarthritis (OA), Thyroid Disorder Additional Past Medical History / Comment(s): multiple RI's. ischemic cardiomyopathy. 12/29/15 STRESS WNL, ALLERGIC rhinitis,RI, CARDIO-PULMONARY AR REST 07/05/14 vertigo, hypertensive nephrosclerosis, Hepatitis A,Vitamin D deficiency, constipation, hx of a cat bit Last Myocardial Infarction Date:: 09/2013 History of Any Multi-Drug Resistant Organisms: MRSA Date of last positivie culture/infection: 09/27/17 MDRO Source:: rt breast Past Surgical History: Adenoidectomy, Appendectomy, Cholecystectomy, Heart Catheterization With Stent, Hysterectomy, Tonsillectomy Additional Past Surgical History / Comment(s): mary cataracts, LAP-BAND 2004, Laparoscopic cholecystectomy, FIBULA FX has metal pins in place,Left shoulder surgery, Hemodialysis Cataract bilateral with IOL, fistula and sx to" reroute it ",gets dialysis mon-fri-fri. has insulin pump. no bp on left, excisional debreidment rt lower ext. Past Anesthesia/Blood Transfusion Reactions: Motion Sickness, Postoperative Nausea & Vomiting (PONV) Additional Past Anesthesia/Blood Transfusion Reaction / Comment(s): blood transfusion-pt stated they gave her medication for a reaction but does'nt re memebr what the reaction was Date of Last Stent Placement:: 2014 Past Psychological History: Anxiety, Bipolar, Depression Smoking Status: Never smoker Past Alcohol Use History: None Reported Past Drug Use History: None Reported - Past Family History Mother Family Medical History: Congestive Heart Failure (CHF), Diabetes Mellitus, Hypertension Father History Unknown: Yes Family Medical History: Diabetes Mellitus Brother(s) Family Medical History: Diabetes Mellitus, Hyperlipidemia Additional Family Medical History / Comment(s): Hypertension chronic kidney disease General Exam - General Exam Comments Initial Comments: GENERAL: Patient is well-developed and well-nourished. Patient is nontoxic and well- hydrated and is in mild distress. ENT: Neck is soft and supple. No significant lymphadenopathy is noted. Oropharynx is clear. Moist mucous membranes. Neck has full range of motion without eliciting any pain. EYES: The sclera were anicteric and conjunctiva were pink and moist. Extraocular movements were intact and pupils were equal round and reactive to light. Eyelids were unremarkable. PULMONARY: Unlabored respirations. Good breath sounds bilaterally. No audible rales rhonchi or wheezing was noted. CARDIOVASCULAR: There is a regular rate and rhythm without any murmurs gallops or rubs. ABDOMEN: Soft and nontender with normal bowel sounds. No palpable organomegaly was noted. There is no palpable pulsatile mass. SKIN: Skin is clear with no lesions or rashes and otherwise unremarkable. NEUROLOGIC: Patient is alert and oriented x3. Cranial nerves II through XII are grossly intact. Motor and sensory are also intact. Normal speech, volume and content. Symmetrical smile. MUSCULOSKELETAL: Normal extremities with adequate strength and full range of motion. LYMPHATICS: No significant lymphadenopathy is noted PSYCHIATRIC: Normal psychiatric evaluation. Course Vital Signs 09/02/18 09/02/18 14:21 14:28 Temperature 98.3 F Pulse Rate 60 Pulse Rate [ 60 Aircraft Engine Technician ] Respiratory 15 Rate Blood Pressure 134/54 O2 Sat by Pulse 98 Oximetry Medical Decision Making - Medical Decision Making EKG shows a paced rhythm at 60 bpm ID interval is 394 QRS is 172 QT interval 534 QTC is 434. Patient's EKG shows no ST segment elevation or depression. Patient had one PVC on EKG. Chest x-ray shows no acute abnormality. Patient is chest pain-free at this point and has been since she arrived. I admitted the patient wrote admitting orders after I spoke with Dr. Akers - Lab Data Result diagrams: 09/02/18 15:07 09/02/18 15:07 Lab Results 09/02/18 09/02/18 09/02/18 Range/Units 15:07 15:07 15:07 WBC 5.6 (3.8-10.6) k/uL RBC 3.97 (3.80-5.40) m/uL Hgb 11.5 (11.4-16.0) gm/dL Hct 37.0 (34.0-46.0) % MCV 93.4 (80.0-100.0) fL MCH 29.0 (25.0-35.0) pg MCHC 31.0 (31.0-37.0) g/dL RDW 17.5 H (11.5-15.5) % Plt Count 216 (150-450) k/uL Neutrophils % 77 % Lymphocytes % 12 % Monocytes % 6 % Eosinophils % 3 % Basophils % 1 % Neutrophils # 4.3 (1.3-7.7) k/uL Lymphocytes # 0.7 L (1.0-4.8) k/uL Monocytes # 0.3 (0-1.0) k/uL Eosinophils # 0.2 (0-0.7) k/uL Basophils # 0.0 (0-0.2) k/uL Hypochromasia Moderate Anisocytosis Slight PT 10.6 (9.0-12.0) sec INR 1.0 (<1.2) APTT 31.5 H (22.0-30.0) sec Sodium 137 (137-145) mmol/L Potassium 3.9 (3.5-5.1) mmol/L Chloride 97 L (98-107) mmol/L Carbon Dioxide 27 (22-30) mmol/L Anion Gap 13 mmol/L BUN 12 (7-17) mg/dL Creatinine 3.12 H (0.52-1.04) mg/dL Est GFR (CKD-EPI)AfAm 17 (>60 ml/min/1.73 sqM) Est GFR (CKD-EPI)NonAf 15 (>60 ml/min/1.73 sqM) Glucose 266 H (74-99) mg/dL Calcium 8.0 L (8.4-10.2) mg/dL Magnesium 2.3 (1.6-2.3) mg/dL Total Bilirubin 0.5 (0.2-1.3) mg/dL AST 13 L (14-36) U/L ALT 12 (9-52) U/L Alkaline Phosphatase 92 (38-126) U/L Troponin I (0.000-0.034) ng/mL Total Protein 7.2 (6.3-8.2) g/dL Albumin 4.2 (3.5-5.0) g/dL 09/02/18 Range/Units 15:07 WBC (3.8-10.6) k/uL RBC (3.80-5.40) m/uL Hgb (11.4-16.0) gm/dL Hct (34.0-46.0) % MCV (80.0-100.0) fL MCH (25.0-35.0) pg MCHC (31.0-37.0) g/dL RDW (11.5-15.5) % Plt Count (150-450) k/uL Neutrophils % % Lymphocytes % % Monocytes % % Eosinophils % % Basophils % % Neutrophils # (1.3-7.7) k/uL Lymphocytes # (1.0-4.8) k/uL Monocytes # (0-1.0) k/uL Eosinophils # (0-0.7) k/uL Basophils # (0-0.2) k/uL Hypochromasia Anisocytosis PT (9.0-12.0) sec INR (<1.2) APTT (22.0-30.0) sec Sodium (137-145) mmol/L Potassium (3.5-5.1) mmol/L Chloride (98-107) mmol/L Carbon Dioxide (22-30) mmol/L Anion Gap mmol/L BUN (7-17) mg/dL Creatinine (0.52-1.04) mg/dL Est GFR (CKD-EPI)AfAm (>60 ml/min/1.73 sqM) Est GFR (CKD-EPI)NonAf (>60 ml/min/1.73 sqM) Glucose (74-99) mg/dL Calcium (8.4-10.2) mg/dL Magnesium (1.6-2.3) mg/dL Total Bilirubin (0.2-1.3) mg/dL AST (14-36) U/L ALT (9-52) U/L Alkaline Phosphatase (38-126) U/L Troponin I 0.019 (0.000-0.034) ng/mL Total Protein (6.3-8.2) g/dL Albumin (3.5-5.0) g/dL Disposition Clinical Impression: Chest pain Disposition: ADMITTED IP TO THIS HOSP Referrals: Kimberli Gar MD [Primary Care Provider] - 1-2 days Time of Disposition: 16:21
[2018-09-02 14:25] VITALS: PULSE 60
[2018-09-02 15:20] LABS: Anisocytosis Slight; Basophils % (A) 1 %; Eosinophils # (A) 0.2 k/uL (0-0.7); Eosinophils % (A) 3 %; HGB 11.5 gm/dL (11.4-16.0); Hypochromasia Moderate; Lymphocytes # (A) 0.7 k/uL (1.0-4.8); Lymphocytes % (A) 12 %; MCV 93.4 fL (80.0-100.0); Mean Platelet Volume 7.7; Monocytes # (A) 0.3 k/uL (0-1.0); Monocytes % (A) 6 %; Neutrophils # (A) 4.3 k/uL (1.3-7.7); Neutrophils % (A) 77 %; Platelet Count 216 k/uL (150-450); RBC 3.97 m/uL (3.80-5.40); RDW 17.5 % (11.5-15.5); WBC 5.6 k/uL (3.8-10.6)
[2018-09-02 15:24] LABS: Partial Thromboplastin Time 31.5 sec (22.0-30.0); Prothrombin Time 10.6 sec (9.0-12.0)
[2018-09-02 15:33] LABS: Albumin 4.2 g/dL (3.5-5.0); Magnesium 2.3 mg/dL (1.6-2.3); Potassium 3.9 mmol/L (3.5-5.1); Total Bilirubin 0.5 mg/dL (0.2-1.3); Total Protein 7.2 g/dL (6.3-8.2)
--- NOTE | 2018-09-02 15:36 | XR ---
EXAMINATION TYPE: XR chest 2V DATE OF EXAM: 09/02/2018 COMPARISON: 08/03/2018 TECHNIQUE: PA and lateral views submitted. HISTORY: Chest pain FINDINGS: The lungs are clear and there is no pneumothorax, pleural effusion, or focal pneumonia. No overt fa ilure. Cardiac device is stable in position. Heart size is stable. Limited inspiration. Hypertrophic changes of the spine. Question LAP-BAND in the abdomen. IMPRESSION: 1. No acute process.
[2018-09-02] MEDS ORDERED: NITROGLYCERIN SL TABS 0.4 MG TAB SUBLINGUAL PRN (16:22)
[2018-09-02 17:09] VITALS: BP 117/53; RESP 16; TEMP 98.2
[2018-09-02] MEDS ORDERED: NITROGLYCERIN OINT 1 INCH/GM PACKET TOPICAL SCH (18:00)
[2018-09-03] MEDS ORDERED: ASPIRIN 325 MG TAB PO SCH (09:00)
== END 2018-09-02 17:50 | disposition other institution (70) ==
LOC: EC 14:08 → UNDOADMOB 16:22 → 1SOBS 16:22 → EC 17:50
DX: R07.89 Other chest pain (principal); I49.3 Ventricular premature depolarization; I25.119 Atherosclerotic heart disease of native coronary artery with unspecified angina pectoris; I25.2 Old myocardial infarction; E07.9 Disorder of thyroid, unspecified; I12.9 Hypertensive chronic kidney disease with stage 1 through stage 4 chronic kidney disease, or unspecified chronic kidney disease; E11.22 Type 2 diabetes mellitus with diabetic chronic kidney disease; N18.9 Chronic kidney disease, unspecified; F41.9 Anxiety disorder, unspecified; F31.9 Bipolar disorder, unspecified; Z79.82 Long term (current) use of aspirin; Z79.02 Long term (current) use of antithrombotics/antiplatelets; Z79.4 Long term (current) use of insulin; Z79.899 Other long term (current) drug therapy; Z88.0 Allergy status to penicillin; Z88.8 Allergy status to other drugs, medicaments and biological substances; Z91.041 Radiographic dye allergy status; Z91.048 Other nonmedicinal substance allergy status; Z95.5 Presence of coronary angioplasty implant and graft; Z99.2 Dependence on renal dialysis
CPT/HCPCS: 36415; 71046; 80053; 83735; 84484; 85025; 85610; 85730; 90935; 93005; 99285

== ENCOUNTER 2018-10-09 05:20 | Emergency (ER) | payer MEDICARE, BC, OTHER ==
[2018-10-09 05:29] VITALS: TEMP 97.7
--- NOTE | 2018-10-09 05:42 | ED ---
Fall HPI - General Stated Complaint: Fall Time Seen by Provider: 10/09/18 05:25 Source: patient, EMS Mode of arrival: EMS - History of Present Illness Initial Comments: Elif is a 63-year-old female with extensive past medical history most significant for insulin-dependent diabetes chronic renal disease on dialysis Friday. Patient presents to the emergency department today after follow home. Patient reports she got up and was reaching for her walker however she lost her balance and fell backwards landing flat on her back. She did bump her head. She did not lose consciousness. She reports pain from her head all the way to her low back. No abdominal pain no extremity injuries. - Related Data Home Medications Medication Instructions Recorded Confirmed Famotidine [Pepcid] 20 mg PO DAILY 04/29/14 09/02/18 Aspirin EC [Ecotrin Low Dose] 81 mg PO DAILY 01/01/16 09/02/18 Escitalopram [Lexapro] 20 mg PO DAILY 01/01/16 09/02/18 busPIRone HCL 15 mg PO BID 01/01/16 09/02/18 Atorvastatin [Lipitor] 80 mg PO HS 12/27/16 09/02/18 Clopidogrel [Plavix] 75 mg PO DAILY 03/21/17 09/02/18 Isosorbide Mononitrate ER [Imdur] 30 mg PO DAILY 03/21/17 09/02/18 lamoTRIgine [LaMICtal] 100 mg PO DAILY@0800 07/01/17 09/02/18 lamoTRIgine [LaMICtal] 150 mg PO HS@2100 07/01/17 09/02/18 Insulin Aspart (For Pump) [NovoLOG 0.01 unit SQ-PUMP CONTINUOUS 09/22/17 09/02/18 (For Pump)] LORazepam [Ativan] 0.5 mg PO HS PRN 08/03/18 09/02/18 Gabapentin [Neurontin] 100 mg PO BID 08/13/18 09/02/18 Metoprolol Tartrate [Lopressor] 25 mg PO DAILY 08/13/18 09/02/18 amLODIPine [Norvasc] 10 mg PO DAILY 08/13/18 09/02/18 Calcium Acetate [Phoslo] 667 mg PO BID 09/02/18 09/02/18 HYDROcodone/APAP 5-325MG [[place] 1 tab PO Q6HR PRN 09/02/18 09/02/18 5-325] LORazepam [Ativan] 0.5 mg PO QAM 09/02/18 09/02/18 Levothyroxine Sodium [Synthroid] 200 mcg PO DAILY 09/02/18 09/02/18 Orphenadrine [Norflex] 100 mg PO Q12H 09/02/18 09/02/18 Allergies Allergy/AdvReac Type Severity Reaction Status Date / Time adhesive Allergy Rash/Hives Verified 09/02/18 14:31 Penicillins Allergy Rash/Hives Verified 09/02/18 14:31 Iodinated Contrast- Oral and AdvReac KIDNEY Verified 09/02/18 14:31 IV Dye FAILURE metformin AdvReac SUGAR Verified 09/02/18 14:31 LEVEL INCREASE Review of Systems ROS Statement: Those systems with pertinent positive or pertinent negative responses have been documented in the HPI. ROS Other: All systems not noted in ROS Statement are negative. Past Medical History Past Medical History: Coronary Artery Disease (CAD), Chest Pain / Angina, Dementia, Diabetes Mellitus, Dialysis, Hyperlipidemia, Hypertension, Liver Disease, Myocardial Infarction ([place]), Osteoarthritis (OA), Thyroid Disorder Additional Past Medical History / Comment(s): multiple [place]'s. ischemic cardiomyopathy. 12/29/15 STRESS WNL, ALLERGIC rhinitis,[place], CARDIO-PULMONARY ARREST 07/05/14 vertigo, hypertensive nephrosclerosis, Hepatitis A,Vitamin D deficiency, constipation, hx of a cat bit Last Myocardial Infarction Date:: 09/2013 History of Any Multi-Drug Resistant Organisms: MRSA Date of last positivie culture/infection: 09/27/17 MDRO Source:: rt breast Past Surgical History: Adenoidectomy, Appendectomy, Cholecystectomy, Heart Cath eterization With Stent, Hysterectomy, Tonsillectomy Additional Past Surgical History / Comment(s): mary cataracts, LAP-BAND 2004, Laparoscopic cholecystectomy, FIBULA FX has metal pins in place,Left shoulder surgery, Hemodialysis Cataract bilateral with IOL, fistula and sx to" reroute it",gets dialysis mon-wed-fri. has insulin pump. no bp on left, excisional debreidment rt lower ext. Past Anesthesia/Blood Transfusion Reactions: Motion Sickness, Postoperative Nausea & Vomiting (PONV) Additional Past Anesthesia/Blood Transfusion Reaction / Comment(s): blood transfusion-pt stated they gave her medication for a reaction but does'nt rememebr what the reaction was Date of Last Stent Placement:: 2014 Past Psychological History: Anxiety, Bipolar, Depression Smoking Status: Never smoker Past Alcohol Use History: None Reported Past Drug Use History: None Reported - Past Family History Mother Family Medical History: Congestive Heart Failure (CHF), Diabetes Mellitus, Hypertension Father History Unknown: Yes Family Medical History: Diabetes Mellitus Brother(s) Family Medical History: Diabetes Mellitus, Hyperlipidemia Additional Family Medical History / Comment(s): Hypertension chronic kidney disease General Exam - General Exam Comments Initial Comments: Physical Exam GENERAL: Medically ill appearing elderly female HENT: Very small hematoma posterior scalp No active bleeding EYES: PERRL, EOMI PULMONARY: Unlabored respirations. No audible rales rhonchi or wheezing was noted. CARDIOVASCULAR: There is a regular rate and rhythm without any murmurs gallops or rubs. There is vascular graft and fistula in the left arm ABDOMEN: Soft and nontender with normal bowel sounds. obese SKIN: Skin is clear with no lesions or rashes and otherwise unremarkable. There is evidence of chronic easy bruising on bilateral upper extremities, bruising around her vascular access : Deferred NEUROLOGIC: Patient is alert and oriented x3. Moving all extremities spontaneously MUSCULOSKELETAL: Normal extremities with adequate strength and full range of motion. No lower extremity swelling or edema. No calf tenderness. PSYCHIATRIC: Normal psychiatric evaluation Limitations: physical limitation Course Vital Signs 10/09/18 10/09/18 05:26 08:04 Temperature 97.7 F Pulse Rate 61 60 Respiratory 15 18 Rate Blood Pressure 108/53 92/53 O2 Sat by Pulse 96 100 Oximetry Medical Decision Making - Medical Decision Making The patient was seen and evaluated, history is obtained from patient and signed patient had a fall from standing she did bump her head patient suffers from chronic pain and is reporting pain throughout her entire spine, there is no obvious injury or abnormality on exam CT imaging was obtained CT imaging revealed no acute injuries, I suspect the patient's discomfort is secondary to exacerbation of her chronic pain. At this time he did feel the patient is stable for discharge, she does have dialysis scheduled to start an less than 2 hours at her regularly scheduled dialysis. Disposition Clinical Impression: Fall Disposition: HOME SELF-CARE Condition: Stable Instructions (If sedation given, give patient instructions): Fall Prevention for Older Adults (ED) Is patient prescribed a controlled substance at d/c from ED?: No Referrals: Kimberli Gar MD [Primary Care Provider] - 1-2 days
[2018-10-09] MEDS ORDERED: MORPHINE SULFATE 4 MG/ML SYRINGE IM STA (06:18)
--- NOTE | 2018-10-09 06:54 | CT ---
EXAM: CT Head Without Intravenous Contrast CLINICAL HISTORY: ITS.REASON CT Reason: Fall from standing, small hematoma posterior scalp TECHNIQUE: Axial computed tomography images of the head/brain without intravenous contrast. This CT exam was performed using one or more of the following dose reduction techniques: automated exposure control, adjustment of the mA and/or kV according to patient size, and/or use of iterative reconstruction technique. DLP is 1454.1 mGy-cm (combined for CT head and C spine) COMPARISON: 06/29/18 FINDINGS: Brain: No hemorrhage. No mass effect. White matter hypodensities. Left temporal encephalomalacia. Ventricles: Age appropriate Bones/joints: No acute fracture. Sinuses: Well aerated as visualized. Mastoid air cells: Well aerated as visualized. IMPRESSION: No acute intracranial findings EXAM: CT Cervical Spine Without Intravenous Contrast CLINICAL HISTORY: ITS.REASON CT Reason: Fall from standing, small hematoma posterior scalp TECHNIQUE: Axial computed tomography images of the cervical spine without intravenous contrast. This CT exam was performed using one or more of the following dose reduction techniques: automated exposure control, adjustment of the mA and/or kV according to patient size, and/or use of iterative reconstruction technique. COMPARISON: 06/29/18 FINDINGS: No acute fracture or subluxation. Degenerative changes which do not appear significantly changed compared to prior. IMPRESSION: No acute fracture.
--- NOTE | 2018-10-09 07:08 | CT ---
EXAM: CT Thoracic and lumbar Spine Without Intravenous Contrast CLINICAL HISTORY: ITS.REASON CT Reason: fall from standing, backward, back pain TECHNIQUE: Axial computed tomography images of the thoracic and lumbar spine without intravenous contrast. DLP is 2496.5 mGy-cm. This CT exam was performed using one or more of the following dose reduction techniques: automated exposure control, adjustment of the mA and/or kV according to patient size, and/or use of iterative reconstruction technique. COMPARISON: No relevant prior studies available. FINDINGS: No acute fracture or malalignment. Mild height loss at lower thoracic vertebral bodies, example T11 and T12 to lesser extent. Has a chronic appearance, possibly congenital. Incidental findings: Degenerative changes. Suspected T12 hemangioma. Mildly prominent AP window node measuring about 12 mm in short axis, unchanged from prior CT C-spine from June 29, 2018. Postop changes with surgical anchor seen in the left humerus on yard operator film along with cholecystectomy and gastric banding. Possible stone within cystic duct remnant. Pacer. Prominent vascular calcifications and renal atrophy. Adrenal thickening. Imaged liver and spleen prominent in size. Elevation right hemidiaphragm. IMPRESSION: No acute fracture of the thoracic or lumbar spine. Incidental findings, as above.
[2018-10-09] MEDS ORDERED: ACET/COD 300 MG/30 MG STARTER PACK 6 TAB BTL PO STA (07:20)
[2018-10-09 08:06] VITALS: BP 92/53; PULSE 60; RESP 18
== END 2018-10-09 08:03 | disposition home or self-care (01) ==
LOC: EC 05:20
DX: S00.03XA Contusion of scalp, initial encounter (principal); R23.3 Spontaneous ecchymoses; M54.5 Low back pain; I25.119 Atherosclerotic heart disease of native coronary artery with unspecified angina pectoris; F03.90 Unspecified dementia, unspecified severity, without behavioral disturbance, psychotic disturbance, mood disturbance, and anxiety; I25.2 Old myocardial infarction; I12.9 Hypertensive chronic kidney disease with stage 1 through stage 4 chronic kidney disease, or unspecified chronic kidney disease; E11.22 Type 2 diabetes mellitus with diabetic chronic kidney disease; N18.9 Chronic kidney disease, unspecified; E07.9 Disorder of thyroid, unspecified; E78.5 Hyperlipidemia, unspecified; F31.9 Bipolar disorder, unspecified; F41.9 Anxiety disorder, unspecified; M19.90 Unspecified osteoarthritis, unspecified site; Z86.19 Personal history of other infectious and parasitic diseases; Z86.14 Personal history of Methicillin resistant Staphylococcus aureus infection; Z99.2 Dependence on renal dialysis; Z79.82 Long term (current) use of aspirin; Z79.4 Long term (current) use of insulin; Z79.01 Long term (current) use of anticoagulants; Z79.890 Hormone replacement therapy; Z79.899 Other long term (current) drug therapy; Z88.0 Allergy status to penicillin; Z91.041 Radiographic dye allergy status; Z91.048 Other nonmedicinal substance allergy status; Z88.8 Allergy status to other drugs, medicaments and biological substances; Z98.84 Bariatric surgery status; Z95.5 Presence of coronary angioplasty implant and graft; W18.00XA Striking against unspecified object with subsequent fall, initial encounter; Y92.009 Unspecified place in unspecified non-institutional (private) residence as the place of occurrence of the external cause
CPT/HCPCS: 99284 ×3; 96372 ×2; 36415; 93005; 72128; 72125; 72131; 70450; J2270

== ENCOUNTER 2018-10-09 15:39 | Emergency (ER) | payer MEDICARE, BC, OTHER ==
[2018-10-09 15:52] VITALS: RESP 18
[2018-10-09 16:03] LABS: Glucose,Whole Blood 65 mg/dL (75-99)
[2018-10-09 17:00] LABS: Glucose,Whole Blood 181 mg/dL (75-99)
--- NOTE | 2018-10-09 17:18 | ED ---
General Adult HPI - General Chief complaint: Recheck/Abnormal Lab/Rx Stated complaint: Low blood sugar Time Seen by Provider: 10/09/18 16:04 Source: patient, RN notes reviewed Mode of arrival: EMS Limitations: no limitations - History of Present Illness Initial comments: Patient is a pleasant [age]-year-old female presenting to the emergency Department with complaints of low blood sugar. Patient states she did have difficulty with her insulin pump this morning and believe she took extra insulin however is unclear exactly how much. Patient has been somewhat drowsy throughout the day and maybe a little bit confused. Patient was at dialysis and was advised to come back to the emergency department secondary to her blood sugar. Patient states at this time now she does feel better. Patient has no complaints at this time. Patient is eating meal at bedside. - Related Data Home Medications Medication Instructions Recorded Confirmed Famotidine [Pepcid] 20 mg PO DAILY 04/29/14 10/09/18 Aspirin EC [Ecotrin Low Dose] 81 mg PO DAILY 01/01/16 10/09/18 Escitalopram [Lexapro] 20 mg PO DAILY 01/01/16 10/09/18 Atorvastatin [Lipitor] 80 mg PO HS 12/27/16 10/09/18 Clopidogrel [Plavix] 75 mg PO DAILY 03/21/17 10/09/18 Isosorbide Mononitrate ER [Imdur] 30 mg PO DAILY 03/21/17 10/09/18 lamoTRIgine [LaMICtal] 100 mg PO DAILY@0800 07/01/17 10/09/18 lamoTRIgine [LaMICtal] 150 mg PO HS@2100 07/01/17 10/09/18 Insulin Aspart (For Pump) [NovoLOG 0.01 unit SQ-PUMP CONTINUOUS 09/22/17 10/09/18 (For Pump)] LORazepam [Ativan] 0.5 mg PO HS PRN 08/03/18 10/09/18 Gabapentin [Neurontin] 100 mg PO TID PRN 08/13/18 10/09/18 Metoprolol Tartrate [Lopressor] 25 mg PO DAILY 08/13/18 10/09/18 Calcium Acetate [Phoslo] 667 mg PO TID 09/02/18 10/09/18 LORazepam [Ativan] 0.5 mg PO QAM 09/02/18 10/09/18 Levothyroxine Sodium [Synthroid] 200 mcg PO MOTUWETHFRSA 09/02/18 10/09/18 Orphenadrine [Norflex] 100 mg PO Q12H 09/02/18 10/09/18 amLODIPine [Norvasc] 10 mg PO DAILY 10/09/18 10/09/18 busPIRone HCL 15 mg PO BID 10/09/18 10/09/18 Allergies Allergy/AdvReac Type Severity Reaction Status Date / Time adhesive Allergy Rash/Hives Verified 10/09/18 17:15 Penicillins Allergy Rash/Hives Verified 10/09/18 17:15 Iodinated Contrast- Oral and AdvReac KIDNEY Verified 10/09/18 17:15 IV Dye FAILURE metformin AdvReac SUGAR Verified 10/09/18 17:15 LEVEL INCREASE Review of Systems ROS Statement: Those systems with pertinent positive or pertinent negative responses have been documented in the HPI. ROS Other: All systems not noted in ROS Statement are negative. Constitutional: Denies: fever Eyes: Denies: eye pain ENT: Denies: ear pain Respiratory: Denies: cough Cardiovascular: Denies: chest pain Endocrine: Denies: fatigue Gastrointestinal: Denies: abdominal pain Genitourinary: Denies: dysuria Musculoskeletal: Denies: back pain Skin: Denies: rash Neurological: Reports: confusion (Patient states she did feel confused earlier when blood sugar was low however this has resolved.). Denies: headache Past Medical History Past Medical History: Coronary Artery Disease (CAD), Chest Pain / Angina, Dementia, Diabetes Mellitus, Dialysis, Hyperlipidemia, Hypertension, Liver Disease, Myocardial Infarction ([place]), Osteoarthritis (OA), Thyroid Disorder Additional Past Medical History / Comment(s): multiple [place]'s. ischemic cardiomyopathy. 12/29/15 STRESS WNL, ALLERGIC rhinitis,[place], CARDIO-PULMONARY ARREST 07/05/14 vertigo, hypertensive nephrosclerosis, Hepatitis A,Vitamin D deficiency, constipation, hx of a cat bit Last Myocardial Infarction Date:: 09/2013 History of Any Multi-Drug Resistant Organisms: MRSA Date of last positivie culture/infection: 09/27/17 MDRO Source:: rt breast Past Surgical History: Adenoidectomy, Appendectomy, Cholecystectomy, Heart Catheterization With Stent, Hysterectomy, Tonsillectomy Additional Past Surgical History / Comment(s): mary cataracts, LAP-BAND 2005, Laparoscopic cholecystectomy, FIBULA FX has metal pins in place,Left shoulder surgery, Hemodialysis Cataract bilateral with IOL, fistula and sx to" reroute it",gets dialysis fri-fri-fri. has insulin pump. no bp on left, excisional debreidment rt lower ext. Past Anesthesia/Blood Transfusion Reactions: Motion Sickness, Postoperative Nausea & Vomiting (PONV) Additional Past Anesthesia/Blood Transfusion Reaction / Comment(s): blood transfusion-pt stated they gave her medication for a reaction but does'nt rememebr what the reaction was Date of Last Stent Placement:: 2014 Past Psychological History: Anxiety, Bipolar, Depression Smoking Status: Never smoker Past Alcohol Use History: None Reported Past Drug Use History: None Reported - Past Family History Mother Family Medical History: Congestive Heart Failure (CHF), Diabetes Mellitus, Hypertension Father History Unknown: Yes Family Medical History: Diabetes Mellitus Brother(s) Family Medical History: Diabetes Mellitus, Hyperlipidemia Additional Family Medical History / Comment(s): Hypertension chronic kidney disease General Exam Limitations: no limitations General appearance: alert, in no apparent distress Head exam: Present: normocephalic Eye exam: Present: normal appearance, PERRL, EOMI. Absent: nystagmus ENT exam: Present: normal oropharynx Neck exam: Present: normal inspection. Absent: tenderness Respiratory exam: Present: normal lung sounds bilaterally Cardiovascular Exam: Present: regular rate, normal rhythm GI/Abdominal exam: Present: soft. Absent: tenderness Extremities exam: Present: normal inspection Neurological exam: Present: alert, oriented X3, CN II-XII intact. Absent: motor sensory deficit Expanded Neurological exam: Present: protecting the airway Patient oriented to: Present: person, place, time Speech: Present: fluid speech Cranial nerves: EOM's Intact: Normal Motor strength exam: RUE: 5, LUE: 5, RLE: 5, LLE: 5 Eye Response: (4) open spontaneously Motor Response: (6) obeys commands Verbal Response: (5) oriented Psychiatric exam: Present: normal affect, normal mood Skin exam: Present: normal color Course Vital Signs 10/09/18 15:47 Temperature 98.0 F Pulse Rate 60 Respiratory 18 Rate Blood Pressure 108/60 O2 Sat by Pulse 97 Oximetry Medical Decision Making - Medical Decision Making Patient reevaluated and resting comfortably in bed. Blood sugar 161. Patient updated on need for frequent blood sugar checks and to return if worsening symptoms. - Lab Data Lab Results 10/09/18 10/09/18 10/09/18 Range/Units 15:59 16:58 18:13 POC Glucose (mg/dL) 65 L 181 H 161 H (75-99) mg/dL POC Glu [employer] Developer Zakia Howe Meredith Kegler, Meredith Disposition Clinical Impression: Hypoglycemia Disposition: HOME SELF-CARE Condition: Stable Instructions (If sedation given, give patient instructions): Hypoglycemia in a Person with Diabetes (ED) Additional Instructions: Please follow-up with primary care physician on Friday. Please check blood sugar frequently, you may need to check blood sugar 1 or 2 times more than a regular 4 times daily. Return for uncontrolled blood sugar, confusion, weakness, worsening symptoms or other concerns. Is patient prescribed a controlled substance at d/c from ED?: No Referrals: Kimberli Gar MD [Primary Care Provider] - 1-2 days Time of Disposition: 18:21
[2018-10-09 18:16] LABS: Glucose,Whole Blood 161 mg/dL (75-99)
[2018-10-09 19:23] VITALS: BP 122/61; PULSE 62; TEMP 98.9
== END 2018-10-09 19:22 | disposition home or self-care (01) ==
LOC: EC 15:39
DX: E11.649 Type 2 diabetes mellitus with hypoglycemia without coma (principal); I25.119 Atherosclerotic heart disease of native coronary artery with unspecified angina pectoris; F03.90 Unspecified dementia, unspecified severity, without behavioral disturbance, psychotic disturbance, mood disturbance, and anxiety; E78.5 Hyperlipidemia, unspecified; I13.10 Hypertensive heart and chronic kidney disease without heart failure, with stage 1 through stage 4 chronic kidney disease, or unspecified chronic kidney disease; E11.22 Type 2 diabetes mellitus with diabetic chronic kidney disease; N18.9 Chronic kidney disease, unspecified; I25.2 Old myocardial infarction; M19.90 Unspecified osteoarthritis, unspecified site; F31.9 Bipolar disorder, unspecified; F41.9 Anxiety disorder, unspecified; Z88.0 Allergy status to penicillin; Z88.8 Allergy status to other drugs, medicaments and biological substances; Z91.041 Radiographic dye allergy status; Z91.048 Other nonmedicinal substance allergy status; Z79.01 Long term (current) use of anticoagulants; Z79.4 Long term (current) use of insulin; Z79.82 Long term (current) use of aspirin; Z79.890 Hormone replacement therapy; Z79.899 Other long term (current) drug therapy; Z96.41 Presence of insulin pump (external) (internal); Z99.2 Dependence on renal dialysis; Z86.14 Personal history of Methicillin resistant Staphylococcus aureus infection; Z95.5 Presence of coronary angioplasty implant and graft; Z83.3 Family history of diabetes mellitus
CPT/HCPCS: 36415; 99284

== ENCOUNTER 2019-01-11 09:48 | Emergency (ER) | payer MEDICARE, BC ==
[2019-01-11] MEDS ORDERED: MORPHINE SULFATE 4 MG/ML SYRINGE IM STA (10:32)
--- NOTE | 2019-01-11 10:51 | ED ---
General Adult HPI - General Chief complaint: Recheck/Abnormal Lab/Rx Stated complaint: Pain Time Seen by Provider: 01/11/19 10:10 Source: patient, EMS, RN notes reviewed, Caregiver Mode of arrival: EMS Limitations: no limitations - History of Present Illness Initial comments: 63-year-old female with a past medical history of CAD, chest pain, dementia, h yperlipidemia, hypertension presents to the emergency department for right hip pain. Patient is currently at [facility] because she broke her right foot and ankle and needed surgery. This was done through [facility]. On Friday patient fell when transferring onto her right hip. She was seen at [facility] at that time and had negative x-rays done. According to [facility] nurse no CT scans were done at that time. Patient is continuing to have pain. Patient states she usually walks but has not been walking or bearing weight on the right leg since she broke her foot and ankle.Patient has no other complaints at this time including shortness of breath, chest pain, abdominal pain, nausea or vomiting, headache, or visual changes. - Related Data Home Medications Medication Instructions Recorded Confirmed Famotidine [Pepcid] 20 mg PO DAILY@0600 04/29/14 01/11/19 Atorvastatin [Lipitor] 80 mg PO HS 12/27/16 01/11/19 Calcium Acetate [Phoslo] 2,001 mg PO AC-TID 09/02/18 01/11/19 Acetaminophen Tab [Tylenol Tab] 500 mg PO Q6H PRN 01/11/19 01/11/19 Calcium Acetate [Phoslo] 667 mg PO DAILY PRN 01/11/19 01/11/19 Clotrimazole Cream [Lotrimin Cream] 1 applic TOPICAL HS 01/11/19 01/11/19 Docusate Sodium [Dok] 100 mg PO BID 01/11/19 01/11/19 Escitalopram Oxalate [Lexapro] 10 mg PO BID@0600,1800 01/11/19 01/11/19 Furosemide [Lasix] 20 mg PO BID@0600,1400 01/11/19 01/11/19 Hydrocodone/Acetaminophen [Comfrey 1 tab PO Q4H PRN 01/11/19 01/11/19 10-325] Insulin Glargine,Hum.rec.anlog 28 unit SQ HS 01/11/19 01/11/19 [Basaglar Kwikpen U-100] Insulin Lispro [humaLOG Kwikpen] 9 unit SQ AC-TID 01/11/19 01/11/19 Insulin Lispro [humaLOG Kwikpen] See Protocol SQ ACHS 01/11/19 01/11/19 LORazepam [Ativan] 1 mg PO DAILY PRN 01/11/19 01/11/19 Levothyroxine Sodium [Synthroid] 175 mcg PO DAILY@0600 01/11/19 01/11/19 Lidocaine-Prilocaine Cream [Emla 1 applic TOPICAL MOWEFR PRN 01/11/19 01/11/19 Cream 2.5%/2.5%] Midodrine HCl [ProAmatine] 10 mg PO Q8H PRN 01/11/19 01/11/19 Povidone-Iodine [Betadine] 1 applic TOPICAL TUTHSA@2100 01/11/19 01/11/19 Vitamin E Oil 1 applic TOPICAL DAILY PRN 01/11/19 01/11/19 Z-Guard 1 applic TOPICAL BID 01/11/19 01/11/19 amLODIPine [Norvasc] 5 mg PO DAILY 01/11/19 01/11/19 busPIRone HCL 5 mg PO BID@0900,2100 01/11/19 01/11/19 lamoTRIgine [LaMICtal] 50 mg PO BID@0600,1800 01/11/19 01/11/19 Allergies Allergy/AdvReac Type Severity Reaction Status Date / Time adhesive Allergy Rash/Hives Verified 01/11/19 10:41 Penicillins Allergy Rash/Hives Verified 01/11/19 10:41 Iodinated Contrast Media AdvReac KIDNEY Verified 01/11/19 10:41 [Iodinated Contrast- Oral FAILURE and IV Dye] metformin AdvReac SUGAR Verified 01/11/19 10:41 LEVEL INCREASE Review of Systems ROS Statement: Those systems with pertinent positive or pertinent negative responses have been documented in the HPI. ROS Other: All systems not noted in ROS Statement are negative. Past Medical History Past Medical History: Coronary Artery Disease (CAD), Chest Pain / Angina, Dementia, Diabetes Mellitus, Dialysis, Hyperlipidemia, Hypertension, Liver Disease, Myocardial Infarction (NE), Osteoarthritis (OA), Thyroid Disorder Additional Past Medical History / Comment(s): multiple NE's. ischemic cardiomyopathy. 12/29/15 STRESS WNL, ALLERGIC rhinitis,NE, CARDIO-PULMONARY ARREST 07/05/14 vertigo, hypertensive nephrosclerosis, Hepatitis A,Vitamin D deficiency, constipation, hx of a cat bit Last Myocardial Infarction Date:: 09/2013 History of Any Multi-Drug Resistant Organisms: MRSA, VRE Date of last positivie culture/infection: 11/11/18-VRE; 09/27/17 MRSA MDRO Source:: Urine-VRE; Right Breast-MRSA Past Surgical History: Adenoidectomy, Appendectomy, Cholecystectomy, Heart Catheterization With Stent, Hysterectomy, Tonsillectomy Additional Past Surgical History / Comment(s): mary cataracts, LAP-BAND 2004, Laparoscopic cholecystectomy, FIBULA FX has metal pins in place,Left shoulder surgery, Hemodialysis Cataract bilateral with IOL, fistula and sx to" reroute it",gets dialysis fri-fri-fri. has insulin pump. no bp on left, excisional debreidment rt lower ext. Past Anesthesia/Blood Transfusion Reactions: Motion Sickness, Postoperative Nausea & Vomiting (PONV) Additional Past Anesthesia/Blood Transfusion Reaction / Comment(s): blood transfusion-pt stated they gave her medication for a reaction but does'nt rememebr what the reaction was Date of Last Stent Placement:: 2014 Past Psychological History: Anxiety, Bipolar, Depression Smoking Status: Never smoker Past Alcohol Use History: None Reported Past Drug Use History: None Reported - Past Family History Mother Family Medical History: Congestive Heart Failure (CHF), Diabetes Mellitus, Hypertension Father History Unknown: Yes Family Medical History: Diabetes Mellitus Brother(s) Family Medical History: Diabetes Mellitus, Hyperlipidemia Additional Family Medical History / Comment(s): Hypertension chronic kidney disease General Exam Limitations: no limitations General appearance: alert, in no apparent distress Head exam: Present: atraumatic, normocephalic, normal inspection Eye exam: Present: normal appearance, PERRL, EOMI. Absent: scleral icterus, conjunctival injection, periorbital swelling ENT exam: Present: normal exam, mucous membranes moist Neck exam: Present: normal inspection, full ROM. Absent: tenderness, meningismus Respiratory exam: Present: normal lung sounds bilaterally. Absent: respiratory distress, wheezes, rales, rhonchi, stridor, chest wall tenderness (no contusions) Cardiovascular Exam: Present: regular rate, normal rhythm, normal heart sounds. Absent: systolic murmur, diastolic murmur, rubs, gallop, clicks GI/Abdominal exam: Present: soft, normal bowel sounds, other (no contusions). Absent: distended, tenderness, guarding, rebound, rigid Extremities exam: Present: tenderness (Mild generalized tenderness noted to the right groin area. There is no abrasion contusion or ecchymosis noted in the area.), normal capillary refill (cap refill < 2 seconds in RLE), other (Sensation intact in the right lower extremity.). Absent: full ROM (Patient has about 30 flexion of the right hip and extension to neutral position.) Neurological exam: Present: alert Psychiatric exam: Present: normal affect, normal mood Course Vital Signs 01/11/19 01/11/19 09:53 11:15 Temperature 98.6 F Pulse Rate 63 60 Respiratory 16 18 Rate Blood Pressure 165/61 159/54 O2 Sat by Pulse 96 97 Oximetry Medical Decision Making - Medical Decision Making Report from [facility] was reviewed. Patient had negative shoulder, pelvis, right hip, and right femur x-rays. Given the negative x-rays at [facility] CT of the pelvis was performed. This did show a subtle nondisplaced fracture of the mid inferior pubic ramus. Capillary refill is less than 2 seconds in the right foot. There isbruising noted of the pelvic area. Patient is currently at [facility] and is nonweightbearing on the right lower extremity. Patient has been much better after receiving morphine. Patient can be discharged back to [facility] where she can follow-up with orthopedics there. She reports she does have an orthopedic doctor that she sees because of her foot and ankle surgery. She will return if she has any worsening symptoms. Disposition Clinical Impression: Pubic ramus fracture Disposition: HOME SELF-CARE Condition: Good Instructions (If sedation given, give patient instructions): Pelvic Fracture (ED) Additional Instructions: Follow-up with your orthopedic doctor through [facility]. Continue to take pain medications. Return if there are any worsening symptoms. Is patient prescribed a controlled substance at d/c from ED?: No Referrals: Kimberli Gar MD [Primary Care Provider] - 1-2 days Time of Disposition: 11:55
--- NOTE | 2019-01-11 11:28 | CT ---
EXAMINATION TYPE: CT pelvis wo con DATE OF EXAM: 01/11/2019 COMPARISON: None HISTORY: Right hip and pelvis pain CT DLP: 603.4 mGycm Automated exposure control for dose reduction was used. CONTRAST: None TECHNIQUE: Axial images 3 mm thick sections. Reconstructed images in the coronal and sagittal plane. FINDINGS: Noncontrast imaging through loops of bowel appear unremarkable. Vascular calcification is noted. Urin rossy bladder is decompressed limiting evaluation. Uterus and ovaries are not identified. There is a fracture through the mid right pubic ramus. Series 202 image 67. Acute fractures are not o therwise evident. Sacroiliac joint degenerative changes present bilaterally. Some facet degenerative changes in the lower lumbar spine. IMPRESSION: SUBTLE NONDISPLACED FRACTURE MID INFERIOR PUBIC RAMUS.
[2019-01-11 13:07] VITALS: BP 143/62; PULSE 70; RESP 17; TEMP 97.8
== END 2019-01-11 13:07 | disposition home or self-care (01) ==
LOC: EC 09:48
DX: S32.501A Unspecified fracture of right pubis, initial encounter for closed fracture (principal); I25.119 Atherosclerotic heart disease of native coronary artery with unspecified angina pectoris; E11.9 Type 2 diabetes mellitus without complications; E78.5 Hyperlipidemia, unspecified; I25.2 Old myocardial infarction; M19.90 Unspecified osteoarthritis, unspecified site; E07.9 Disorder of thyroid, unspecified; K59.00 Constipation, unspecified; I11.9 Hypertensive heart disease without heart failure; F31.9 Bipolar disorder, unspecified; F41.9 Anxiety disorder, unspecified; Z88.0 Allergy status to penicillin; Z88.8 Allergy status to other drugs, medicaments and biological substances; Z91.041 Radiographic dye allergy status; Z91.048 Other nonmedicinal substance allergy status; Z79.4 Long term (current) use of insulin; Z79.890 Hormone replacement therapy; Z79.899 Other long term (current) drug therapy; F03.90 Unspecified dementia, unspecified severity, without behavioral disturbance, psychotic disturbance, mood disturbance, and anxiety; Z79.891 Long term (current) use of opiate analgesic; Z86.14 Personal history of Methicillin resistant Staphylococcus aureus infection; Z95.5 Presence of coronary angioplasty implant and graft; Z96.41 Presence of insulin pump (external) (internal); W19.XXXA Unspecified fall, initial encounter; Y93.89 Activity, other specified
CPT/HCPCS: 72192; 99284; 96372; J2270

== ENCOUNTER 2019-04-02 19:39 | Inpatient (IN) | payer MEDICARE, BC, OTHER ==
--- NOTE | 2019-04-02 19:58 | ED ---
General Adult HPI - General Stated complaint: Chest Pain Time Seen by Provider: 04/02/19 19:44 Source: patient, RN notes reviewed, old records reviewed - History of Present Illness Initial comments: 63-year-old female presenting for evaluation of central and left-sided chest pain which began approximately 6 hours prior to arrival. Patient was encouraged by her primary care physician to present to the emergency Department is she does have history of coronary artery disease with multiple heart attacks in the past. Patient had radiated to the left arm. No nausea vomiting. No diaphoresis. No significant dyspnea. Patient's has history of ESRD as well as CAD. Pain resolved with time my evaluation. - Related Data Home Medications Medication Instructions Recorded Confirmed Famotidine [Pepcid] 20 mg PO DAILY@0600 04/29/14 01/11/19 Atorvastatin [Lipitor] 80 mg PO HS 12/27/16 01/11/19 Calcium Acetate [Phoslo] 2,001 mg PO AC-TID 09/02/18 01/11/19 Acetaminophen Tab [Tylenol Tab] 500 mg PO Q6H PRN 01/11/19 01/11/19 Calcium Acetate [Phoslo] 667 mg PO DAILY PRN 01/11/19 01/11/19 Clotrimazole Cream [Lotrimin Cream] 1 applic TOPICAL HS 01/11/19 01/11/19 Docusate Sodium [Dok] 100 mg PO BID 01/11/19 01/11/19 Escitalopram Oxalate [Lexapro] 10 mg PO BID@0600,1800 01/11/19 01/11/19 Furosemide [Lasix] 20 mg PO BID@0600,1400 01/11/19 01/11/19 Hydrocodone/Acetaminophen [Hayden 1 tab PO Q4H PRN 01/11/19 01/11/19 10-325] Insulin Glargine,Hum.rec.anlog 28 unit SQ HS 01/11/19 01/11/19 [Basaglar Kwikpen U-100] Insulin Lispro [humaLOG Kwikpen] 9 unit SQ AC-TID 01/11/19 01/11/19 Insulin Lispro [humaLOG Kwikpen] See Protocol SQ ACHS 01/11/19 01/11/19 LORazepam [Ativan] 1 mg PO DAILY PRN 01/11/19 01/11/19 Levothyroxine Sodium [Synthroid] 175 mcg PO DAILY@0600 01/11/19 01/11/19 Lidocaine-Prilocaine Cream [Emla 1 applic TOPICAL MOWEFR PRN 01/11/19 01/11/19 Cream 2.5%/2.5%] Midodrine HCl [ProAmatine] 10 mg PO Q8H PRN 01/11/19 01/11/19 Povidone-Iodine [Betadine] 1 applic TOPICAL TUTHSA@2100 01/11/19 01/11/19 Vitamin E Oil 1 applic TOPICAL DAILY PRN 01/11/19 01/11/19 Z-Guard 1 applic TOPICAL BID 01/11/19 01/11/19 amLODIPine [Norvasc] 5 mg PO DAILY 01/11/19 01/11/19 busPIRone HCL 5 mg PO BID@0900,2100 01/11/19 01/11/19 lamoTRIgine [LaMICtal] 50 mg PO BID@0600,1800 01/11/19 01/11/19 Allergies Allergy/AdvReac Type Severity Reaction Status Date / Time adhesive Allergy Rash/Hives Verified 04/02/19 20:53 Penicillins Allergy Rash/Hives Verified 04/02/19 20:53 Iodinated Contrast Media AdvReac KIDNEY Verified 04/02/19 20:53 [Iodinated Contrast- Oral FAILURE and IV Dye] metformin AdvReac SUGAR Verified 04/02/19 20:53 LEVEL INCREASE Review of Systems ROS Statement: Those systems with pertinent positive or pertinent negative responses have been documented in the HPI. ROS Other: All systems not noted in ROS Statement are negative. Past Medical History Past Medical History: Coronary Artery Disease (CAD), Chest Pain / Angina, Dementia, Diabetes Mellitus, Dialysis, Hyperlipidemia, Hypertension, Liver Disease, Myocardial Infarction ([place]), Osteoarthritis (OA), Thyroid Disorder Additional Past Medical History / Comment(s): multiple OK's. ischemic cardiomyopathy. 12/29/15 STRESS WNL, ALLERGIC rhinitis,[place], CARDIO-PULMONARY ARREST 07/05/14 vertigo, hypertensive nephrosclerosis, Hepatitis A,Vitamin D deficiency, constipation, hx of a cat bit Last Myocardial Infarction Date:: 09/2013 History of Any Multi-Drug Resistant Organisms: MRSA, VRE Date of last positivie culture/infection: 11/11/18-VRE; 09/27/17 MRSA MDRO Source:: Urine-VRE; Right Breast-MRSA Past Surgical History: Adenoidectomy, Appendectomy, Cholecystectomy, Heart Catheterization With Stent, Hysterectomy, Tonsillectomy Additional Past Surgical History / Comment(s): mary cataracts, LAP-BAND 2004, Laparoscopic cholecystectomy, FIBULA FX has metal pins in place,Left shoulder surgery, Hemodialysis Cataract bilateral with IOL, fistula and sx to" reroute it",gets dialysis fri-fri-fri. has insulin pump. no bp on left, excisional debreidment rt lower ext. Past Anesthesia/Blood Transfusion Reactions: Motion Sickness, Postoperative Nausea & Vomiting (PONV) Additional Past Anesthesia/Blood Transfusion Reaction / Comment(s): blood transfusion-pt stated they gave her medication for a reaction but does'nt rememebr what the reaction was Date of Last Stent Placement:: 2014 Past Psychological History: Anxiety, Bipolar, Depression Smoking Status: Never smoker Past Alcohol Use History: None Reported Past Drug Use History: None Reported - Past Family History Mother Family Medical History: Congestive Heart Failure (CHF), Diabetes Mellitus, Hypertension Father History Unknown: Yes Family Medical History: Diabetes Mellitus Brother(s) Family Medical History: Diabetes Mellitus, Hyperlipidemia Additional Family Medical History / Comment(s): Hypertension chronic kidney disease General Exam General appearance: alert, in no apparent distress Head exam: Present: atraumatic, normocephalic Eye exam: Present: normal appearance, PERRL ENT exam: Present: normal exam. Absent: mucous membranes dry Neck exam: Present: normal inspection. Absent: tenderness, meningismus Respiratory exam: Present: normal lung sounds bilaterally. Absent: respiratory distress, wheezes Cardiovascular Exam: Present: regular rate, normal rhythm GI/Abdominal exam: Present: soft. Absent: distended, tenderness, guarding Extremities exam: Present: normal inspection, normal capillary refill. Absent: pedal edema, calf tenderness Neurological exam: Present: alert, oriented X3, CN II-XII intact. Absent: motor sensory deficit Psychiatric exam: Present: normal affect, normal mood Skin exam: Present: warm, dry, intact. Absent: cyanosis, diaphoretic Course Vital Signs 04/02/19 19:40 Temperature 97.8 F Pulse Rate 61 Respiratory 20 Rate Blood Pressure 135/53 O2 Sat by Pulse 99 Oximetry EKG Findings - EKG Comments: EKG Findings:: EKG: Ventricular paced rhythm, rate of 60, QRS duration 192, QTC 519, similar compared to previous EKG in September 2018. Medical Decision Making - Medical Decision Making 63-year-old female with an episode of chest pain, resolved at the time my evaluation. She has normal white blood cell count, stable hemoglobin, mildly elevated potassium although there is slight hemolysis at 5.4. She has end-stage renal disease and is on hemodialysis. She normally receives hemodialysis on Friday was a Friday but did not receive hemodialysis today. No dyspnea. No significant lower extremity swelling. Chest x-ray negative for acute cardiopulmonary disease, no pulmonary edema. Troponin elevated 2.4, significantly elevated BMP. Patient will require hemodialysis and troponins will be trended. No ongoing pain while in the emergency department. He is discussed with the admitting physician Dr. Valdez She will be admitted for telemetry, cardiology consultation, serial troponins. Nephrology placed on consult. - Lab Data Result diagrams: 04/02/19 20:08 04/02/19 20:08 Lab Results 04/02/19 04/02/19 04/02/19 Range/Units 20:08 20:08 20:08 WBC 7.5 (3.8-10.6) k/uL RBC 3.58 L (3.80-5.40) m/uL Hgb 11.1 L (11.4-16.0) gm/dL Hct 34.6 (34.0-46.0) % MCV 96.7 (80.0-100.0) fL MCH 30.9 (25.0-35.0) pg MCHC 32.0 (31.0-37.0) g/dL RDW 16.1 H (11.5-15.5) % Plt Count 149 L (150-450) k/uL Neutrophils % 84 % Lymphocytes % 5 % Monocytes % 6 % Eosinophils % 2 % Basophils % 2 % Neutrophils # 6.3 (1.3-7.7) k/uL Lymphocytes # 0.4 L (1.0-4.8) k/uL Monocytes # 0.5 (0-1.0) k/uL Eosinophils # 0.1 (0-0.7) k/uL Basophils # 0.1 (0-0.2) k/uL Anisocytosis Slight PT (9.0-12.0) sec INR (<1.2) APTT (22.0-30.0) sec Sodium 134 L (137-145) mmol/L Potassium 5.4 H (3.5-5.1) mmol/L Chloride 96 L (98-107) mmol/L Carbon Dioxide 23 (22-30) mmol/L Anion Gap 15 mmol/L BUN 53 H (7-17) mg/dL Creatinine 6.95 H (0.52-1.04) mg/dL Est GFR (CKD-EPI)AfAm 7 (>60 ml/min/1.73 sqM) Est GFR (CKD-EPI)NonAf 6 (>60 ml/min/1.73 sqM) Glucose 224 H (74-99) mg/dL Calcium 9.3 (8.4-10.2) mg/dL Magnesium 2.4 H (1.6-2.3) mg/dL Total Bilirubin 1.0 (0.2-1.3) mg/dL AST 44 H (14-36) U/L ALT 17 (4-34) U/L Alkaline Phosphatase 75 (38-126) U/L Troponin I (0.000-0.034) ng/mL NT-Pro-B Natriuret Pep 84725 pg/mL Total Protein 7.4 (6.3-8.2) g/dL Albumin 4.1 (3.5-5.0) g/dL 04/02/19 04/02/19 Range/Units 20:08 20:08 WBC (3.8-10.6) k/uL RBC (3.80-5.40) m/uL Hgb (11.4-16.0) gm/dL Hct (34.0-46.0) % MCV (80.0-100.0) fL MCH (25.0-35.0) pg MCHC (31.0-37.0) g/dL RDW (11.5-15.5) % Plt Count (150-450) k/uL Neutrophils % % Lymphocytes % % Monocytes % % Eosinophils % % Basophils % % Neutrophils # (1.3-7.7) k/uL Lymphocytes # (1.0-4.8) k/uL Monocytes # (0-1.0) k/uL Eosinophils # (0-0.7) k/uL Basophils # (0-0.2) k/uL Anisocytosis PT 10.5 (9.0-12.0) sec INR 1.0 (<1.2) APTT 23.5 (22.0-30.0) sec Sodium (137-145) mmol/L Potassium (3.5-5.1) mmol/L Chloride (98-107) mmol/L Carbon Dioxide (22-30) mmol/L Anion Gap mmol/L BUN (7-17) mg/dL Creatinine (0.52-1.04) mg/dL Est GFR (CKD-EPI)AfAm (>60 ml/min/1.73 sqM) Est GFR (CKD-EPI)NonAf (>60 ml/min/1.73 sqM) Glucose (74-99) mg/dL Calcium (8.4-10.2) mg/dL Magnesium (1.6-2.3) mg/dL Total Bilirubin (0.2-1.3) mg/dL AST (14-36) U/L ALT (4-34) U/L Alkaline Phosphatase (38-126) U/L Troponin I 2.490 H* (0.000-0.034) ng/mL NT-Pro-B Natriuret Pep pg/mL Total Protein (6.3-8.2) g/dL Albumin (3.5-5.0) g/dL Critical Care Time Critical Care Time: Yes Total Critical Care Time: 35 Disposition Clinical Impression: Chest pain, CAD (coronary artery disease), ESRD (end stage renal disease), NSTEMI (non-ST elevated myocardial infarction), Elevated troponin Disposition: ADMITTED IP TO THIS HOSP Condition: Stable Is patient prescribed a controlled substance at d/c from ED?: No Referrals: Kimberli Gar MD [Primary Care Provider] - 1-2 days Decision to Admit Reason: Admit from EC Decision Date: 04/02/19 Decision Time: 20:43
--- NOTE | 2019-04-02 20:23 | XR ---
EXAMINATION TYPE: XR chest 2V DATE OF EXAM: 04/02/2019 COMPARISON: 09/02/2018 HISTORY: Chest pain TECHNIQUE: 2 views. There is no heart failure nor confluent pneumonic infiltrate. There is a right axillary pacemaker. Co stophrenic angles are clear. Bony thorax is intact. There is no pleural effusion. IMPRESSION: No active cardiopulmonary disease. No change.
[2019-04-02 20:28] LABS: Anisocytosis Slight; Basophils # (A) 0.1 k/uL (0-0.2); Basophils % (A) 2 %; Eosinophils # (A) 0.1 k/uL (0-0.7); Eosinophils % (A) 2 %; HCT 34.6 % (34.0-46.0); HGB 11.1 gm/dL (11.4-16.0); Lymphocytes # (A) 0.4 k/uL (1.0-4.8); Lymphocytes % (A) 5 %; MCH 30.9 pg (25.0-35.0); MCV 96.7 fL (80.0-100.0); Mean Platelet Volume 9.8; Monocytes # (A) 0.5 k/uL (0-1.0); Monocytes % (A) 6 %; Neutrophils # (A) 6.3 k/uL (1.3-7.7); Neutrophils % (A) 84 %; Platelet Count 149 k/uL (150-450); RBC 3.58 m/uL (3.80-5.40); RDW 16.1 % (11.5-15.5); WBC 7.5 k/uL (3.8-10.6)
[2019-04-02 20:40] LABS: Albumin 4.1 g/dL (3.5-5.0); Calcium 9.3 mg/dL (8.4-10.2); Magnesium 2.4 mg/dL (1.6-2.3); Partial Thromboplastin Time 23.5 sec (22.0-30.0); Prothrombin Time 10.5 sec (9.0-12.0); Total Protein 7.4 g/dL (6.3-8.2)
[2019-04-02] MEDS ORDERED: ASPIRIN 325 MG TAB PO STA (20:41)
[2019-04-02 20:49] LABS: Potassium 5.4 mmol/L (3.5-5.1)
[2019-04-02] MEDS ORDERED: ACETAMINOPHEN TAB 325 MG TAB PO PRN (21:05)
[2019-04-02] MEDS ORDERED: NALOXONE 0.4 MG/ML 1 ML VIAL IV PRN (21:05)
[2019-04-02] MEDS ORDERED: HEPARIN SODIUM,PORCINE 5,000 UNIT/ML 1 ML VIAL IV ONE (21:19)
[2019-04-02] MEDS ORDERED: HEPARIN SODIUM,PORCINE 5,000 UNIT/ML 1 ML VIAL IV PRN (21:19)
[2019-04-02] MEDS ORDERED: NITROGLYCERIN-D5W PMX 50 MG in DEXTROSE/WATER 1 250ML.BAG IV ONE (21:30)
[2019-04-02] MEDS ORDERED: METOPROLOL TARTRATE 25 MG TAB PO STA (21:30)
[2019-04-02] MEDS: HEPARIN SOD,PORK IN 0.45% NACL 25,000 UNIT in 0.45% NACL 1 250ML.BAG IV SCH (22:14)
[2019-04-03] MEDS: amLODIPine 5 MG TAB PO SCH (06:01)
[2019-04-03 06:16] LABS: Glucose,Whole Blood 211 mg/dL (75-99)
[2019-04-03] MEDS: INSULIN ASPART (NovoLOG) 100 UNIT/ML VIAL SQ SCH ×3 (08:33→17:33)
[2019-04-03] MEDS ORDERED: ATORVASTATIN 80 MG TAB PO STA (09:15)
[2019-04-03] MEDS ORDERED: ALPRAZolam 0.25 MG TAB PO PRN (09:15)
[2019-04-03] MEDS ORDERED: ASPIRIN 325 MG TAB PO STA (09:15)
[2019-04-03] MEDS ORDERED: SODIUM CHLORIDE 0.9% 1,000 ML in EMPTY BAG 1 BAG IV ONE (09:15)
[2019-04-03] MEDS ORDERED: NITROGLYCERIN SL TABS 0.4 MG TAB SUBLINGUAL PRN (09:15)
[2019-04-03 09:17] LABS: Calcium 8.8 mg/dL (8.4-10.2); Magnesium 2.5 mg/dL (1.6-2.3); Phosphorus 7.2 mg/dL (2.5-4.5); Potassium 5.3 mmol/L (3.5-5.1)
[2019-04-03 09:18] LABS: Basophils % (A) 1 %; Eosinophils # (A) 0.3 k/uL (0-0.7); Eosinophils % (A) 4 %; HCT 30.8 % (34.0-46.0); HGB 9.8 gm/dL (11.4-16.0); Hypochromasia Slight; Lymphocytes # (A) 0.7 k/uL (1.0-4.8); Lymphocytes % (A) 11 %; MCH 31.2 pg (25.0-35.0); MCHC 31.7 g/dL (31.0-37.0); MCV 98.6 fL (80.0-100.0); Macrocytosis Slight; Mean Platelet Volume 9.4; Monocytes # (A) 0.4 k/uL (0-1.0); Monocytes % (A) 7 %; Neutrophils # (A) 4.9 k/uL (1.3-7.7); Neutrophils % (A) 76 %; Platelet Count 170 k/uL (150-450); RBC 3.13 m/uL (3.80-5.40); WBC 6.4 k/uL (3.8-10.6)
--- NOTE | 2019-04-03 09:55 | CONS ---
CONSULTATION DATE OF SERVICE: April 03, 2019. REASON FOR THE CONSULTATION: Acute coronary syndrome. HISTORY OF PRESENT ILLNESS: This is a pleasant 63-year-old female patient who sees Dr. Jc in the office as an outpatient with a past medical history significant for coronary artery disease and prior stenting of the LAD as well as end-stage renal disease on hemodialysis, as well as hypertension and dyslipidemia presented to the hospital complaining of chest discomfort. The patient was in her usual state of health until yesterday when she was at home and started experiencing discomfort in the mid of the chest, as a sharp kind of discomfort, radiating to the left side of the chest as well as radiating to her left arm. It was associated with extensive sweating. No shortness of breath, dizziness, heart racing, or syncope. Because of the pain, she decided to come to the emergency room. In the ER, she continues to have ongoing chest discomfort and because of that, the patient was admitted to the 3rd floor and started on nitro drip. The EKG showed underlying what seems to be an underlying atrial fibrillation with ventricular paced rhythm. The patient does have history of permanent pacemaker. The cardiac enzymes were checked and came into be abnormal and consistent with acute coronary event with troponin more than 3. The rest of her blood work came in to be unremarkable except for the creatinine which is known to be 4 because the patient is end-stage renal disease on dialysis. PAST MEDICAL HISTORY: 1. Coronary artery disease and prior stenting. 2. Hypertension. 3. Dyslipidemia. 4. End-stage renal disease. 5. Permanent pacemaker implantation. SOCIAL HISTORY: The patient does not smoke. MEDICATIONS: I do not have her medication list in front of me because the computer system is not working, but when the patient was seen in the room she was on nitro drip as well as she is on heparin drip. PHYSICAL EXAMINATION: GENERAL APPEARANCE: The patient does not look in any pain or distress. VITALS: Were reviewed and seem to be stable. CARDIOVASCULAR: Examination revealed regular rhythm with normal S1 and S2 and systolic murmur at the right upper sternal border. RESPIRATORY: Examination shows clear breathing sounds bilaterally. The blood work was reviewed and revealed abnormal troponin. The EKG showed underlying atrial fibrillation with ventricular paced rhythm. ASSESSMENT: 1. Acute coronary syndrome. 2. Known history of coronary artery disease and prior stenting of the LAD. 3. End-stage renal disease on dialysis. 4. Hypertension. 5. Dyslipidemia. PLAN: 1. I will try to wean the patient from the nitro drip. 2. Continue heparin drip for now. 3. Antiplatelet medications. 4. I decided to pursue with coronary angiogram in view of the chest discomfort. MARCELLA / KORY: [id number] /
[2019-04-03 11:51] LABS: Glucose,Whole Blood 457 mg/dL (75-99)
--- NOTE | 2019-04-03 12:52 | P.NPCON ---
History of Present Illness - Reason for Consult Consult date: 04/03/19 end stage renal disease - Chief Complaint Chest pain - History of Present Illness This is a 63-year-old female seen in consultation because of ESRD on dialysis Friday, is admitted with chest pain for about 1 day prior to admission but also some feeling of not feeling well for about 1-2 weeks prior to this. She missed her dialysis yesterday because she was feeling awful. Pain is in the left precordium. She is known with previous coronary artery disease and has had multiple stents. Currently she is pain free on nitroglycerin drip No shortness of breath no fever chills cough no nausea vomiting diarrhea no abdominal pain Is known diabetic for 20 years, has been on dialysis for about 3-4 years she is gets dialyzed 3 hours 45 minutes and has about 3-4 kg ultrafiltrate at Past Medical History Past Medical History: Coronary Artery Disease (CAD), Chest Pain / Angina, Dementia, Diabetes Mellitus, Dialysis, Hyperlipidemia, Hypertension, Liver Disease, Myocardial Infarction (RI), Osteoarthritis (OA), Thyroid Disorder Additional Past Medical History / Comment(s): multiple RI's. ischemic cardiomyopathy. 12/29/15 STRESS WNL, ALLERGIC rhinitis,RI, CARDIO-PULMONARY ARREST 07/05/14 vertigo, hypertensive nephrosclerosis, Hepatitis A,Vitamin D deficiency, constipation, hx of a cat bit Last Myocardial Infarction Date:: 09/2013 History of Any Multi-Drug Resistant Organisms: MRSA, VRE Date of last positivie culture/infection: 11/11/18-VRE; 09/27/17 MRSA MDRO Source:: Urine-VRE; Right Breast-MRSA Past Surgical History: Adenoidectomy, Appendectomy, Cholecystectomy, Heart Catheterization With Stent, Hysterectomy, Tonsillectomy Additional Past Surgical History / Comment(s): mary cataracts, LAP-BAND 2004, Laparoscopic cholecystectomy, FIBULA FX has metal pins in place,Left shoulder surgery, Hemodialysis Cataract bilateral with IOL, fistula and sx to" reroute it",gets dialysis fri-fri-fri. has insulin pump. no bp on left, excisional debreidment rt lower ext. Past Anesthesia/Blood Transfusion Reactions: Motion Sickness, Postoperative Nausea & Vomiting (PONV) Additional Past Anesthesia/Blood Transfusion Reaction / Comment(s): blood transfusion-pt stated they gave her medication for a reaction but does'nt rememebr what the reaction was Date of Last Stent Placement:: 2014 Past Psychological History: Anxiety, Bipolar, Depression Additional Psychological History / Comment(s): pt. lives alone in apartment, uses walker for ambulation and has a wheelchair for longer distances, pt. no longer drives and takes city transport or has friends take her to appts. pt. has glucose reader, power w/c, shower chair, railing in br, walker and insulin pump. Smoking Status: Never smoker Past Alcohol Use History: None Reported Additional Past Alcohol Use History / Comment(s): Patient living in an apartment. She has a walker in the home and motorized wheelchair. She does not drive. She has a glucometer and insulin pump. She is a lifelong nonsmoker. She denies any alcohol use. No service. No international travel. She has a pet cat. Past Drug Use History: None Reported - Past Family History Mother Family Medical History: Congestive Heart Failure (CHF), Diabetes Mellitus, Hypertension Father History Unknown: Yes Family Medical History: Diabetes Mellitus Brother(s) Family Medical History: Diabetes Mellitus, Hyperlipidemia Additional Family Medical History / Comment(s): Hypertension chronic kidney disease Medications and Allergies Home Medications Medication Instructions Recorded Confirmed Type Famotidine [Pepcid] 20 mg PO DAILY@0600 04/29/14 04/02/19 History Atorvastatin [Lipitor] 80 mg PO HS@2100 12/27/16 04/02/19 History Calcium Acetate [Phoslo] 667 mg PO AC-TID 09/02/18 04/02/19 History Acetaminophen Tab [Tylenol Tab] 500 mg PO Q6H PRN 01/11/19 04/02/19 History Docusate Sodium [Dok] 100 mg PO BID@0900,2100 01/11/19 04/02/19 History Furosemide [Lasix] 20 mg PO BID@0600,1200 01/11/19 04/02/19 History Hydrocodone/Acetaminophen [[place] 1 tab PO BID 01/11/19 04/02/19 History 10-325] Insulin Glargine,Hum.rec.anlog 50 unit SQ HS 01/11/19 04/02/19 History [Basaglar Kwikpen U-100] Insulin Lispro [humaLOG Kwikpen] 12 unit SQ AC-TID 01/11/19 04/02/19 History Insulin Lispro [humaLOG Kwikpen] See Protocol SQ ACHS 01/11/19 04/02/19 History Levothyroxine Sodium [Synthroid] 175 mcg PO DAILY@0600 01/11/19 04/02/19 History Lidocaine-Prilocaine Cream [Emla 1 applic TOPICAL MOWEFR PRN 01/11/19 04/02/19 History Cream 2.5%/2.5%] amLODIPine [Norvasc] 5 mg PO DAILY@0900 01/11/19 04/02/19 History busPIRone HCL 5 mg PO BID@0900,209901/11/19 04/02/19 History Aspirin EC [Ecotrin Low Dose] 81 mg PO DAILY@0900 04/02/19 04/02/19 History Bisacodyl [Dulcolax] 10 mg RECTAL HS PRN 04/02/19 04/02/19 History Escitalopram [Lexapro] 20 mg PO DAILY@0900 04/02/19 04/02/19 History Folic Acid-Vit B Complex-Vit C 1 cap PO MOWEFR@209904/02/19 04/02/19 History [Nephrocaps] Folic Acid-Vit B Complex-Vit C 1 mg PO SUTUTHSA@0900 04/02/19 04/02/19 History [Nephrocaps] Magnesium Hydroxide [Milk of 2,400 mg PO DAILY PRN 04/02/19 04/02/19 History Magnesia] Melatonin 10 mg PO HS@209904/02/19 04/02/19 History Na Phos,M-B/Na Phos,Di-Ba [Fleet 133 ml RECTAL DAILY PRN 04/02/19 04/02/19 History Adult] Ondansetron [Zofran] 4 mg PO Q6H PRN 04/02/19 04/02/19 History LORazepam [Ativan] 1 mg PO DAILY PRN 04/03/19 04/03/19 History Allergies Allergy/AdvReac Type Severity Reaction Status Date / Time adhesive Allergy Rash/Hives Verified 04/02/19 20:53 Penicillins Allergy Rash/Hives Verified 04/02/19 20:53 Iodinated Contrast Media AdvReac KIDNEY Verified 04/02/19 20:53 [Iodinated Contrast- Oral FAILURE and IV Dye] metformin AdvReac SUGAR Verified 04/02/19 20:53 LEVEL INCREASE Physical Exam Vitals: Vital Signs Temp Pulse Pulse Resp BP BP Pulse Ox 04/03/19 12:00 98.2 F 60 16 115/59 95 04/03/19 08:00 97.7 F 62 16 114/48 95 04/03/19 04:00 98.1 F 64 18 117/59 95 04/02/19 23:00 98.7 F 60 20 148/45 95 04/02/19 22:30 60 16 146/56 04/02/19 22:00 60 20 150/54 04/02/19 21:45 98.8 F 62 18 123/55 98 04/02/19 21:30 60 16 142/57 99 04/02/19 21:00 62 18 151/43 99 04/02/19 20:30 60 20 135/53 98 04/02/19 20:00 40 H 04/02/19 19:40 97.8 F 61 64 20 135/53 99 Intake and Output 04/02/19 04/03/19 04/03/19 22:59 06:59 14:59 Intake Total 100 Balance 100 Intake: Oral 100 Other: Weight 98.6 kg 96.4 kg On examination she is awake alert oriented comfortable HEENT exam no JVP neck is supple no facial asymmetry Lungs are clear to auscultation good air entry bilaterally Heart sounds are unremarkable for any murmur rub gallop Abdomen soft nontender no organomegaly status masses Extremity exam shows trace edema Neurologically awake alert oriented comfortable Warm to touch. Results - Lab Results Most recent lab results Calcium 8.8 mg/dL (8.4-10.2) 04/03/19 07:40 Phosphorus 7.2 mg/dL (2.5-4.5) H 04/03/19 07:40 Magnesium 2.5 mg/dL (1.6-2.3) H 04/03/19 07:40 04/03/19 07:40 04/03/19 07:40 Assessment and Plan Assessment: Impression 1. ESRD on dialysis Friday, 3 hours 45 minutes and 3-4 kg ultrafiltration 2. admitted with chest pain elevated troponin likely acute RI 3. Diabetes mellitus for 20 years. 4. Mild degree of anemia secondary to ESRD hemoglobin 9.8 was 11.1 yesterday. 5. Mild hyponatremia and hyperkalemia from ESRD Recommendation 1. Patient is being scheduled for cardiac catheterization today and is cleared from a nephrological perspective. 2. We'll try to dialyze her this Friday if if needed or will do tomorrow based on what time her cardiac catheterization is completed 3. Will watch her anemia and start her on Aranesp 40 g every week 4. Will check iron saturation
[2019-04-03] MEDS ORDERED: DARBEPOETIN ALFA 40 MCG/0.4 ML SYRINGE SQ SCH (14:00)
[2019-04-03 16:55] LABS: Glucose,Whole Blood 344 mg/dL (75-99)
[2019-04-03] MEDS ORDERED: ONDANSETRON 4 MG TAB PO PRN (17:50)
[2019-04-03] MEDS ORDERED: MAGNESIUM HYDROXIDE 2,400 MG/10 ML CUP PO PRN (17:50)
--- NOTE | 2019-04-03 17:55 | P.HPIM ---
History of Present Illness H&P Date: 04/03/19 This is a 63-year-old obese female patient of JAE Cordova, Mayank with multiple medical problem was known to have end-stage kidney disease on hemodialysis Friday, coronary artery disease and prior coronary artery stenting, diabetes type 2 on insulin pump, dyslipidemia, history of permanent pacemaker, atrial fibrillation. Patient was last admitted in July 2018 which time she was seen for possible TIA and severe hyperkalemia. Patient has been residing at [facility] for subacute rehab due to fracture of the right tibia. Patient states that she was in bed and developed chest pain on the left side. All day she had not been feeling well on Friday and did not go to dialysis treatment. The chest pain started around 2:30 in the afternoon. It felt like a discomfort and she was holding the side of her chest. She also developed pain in the back of her left arm when she stood up. She denies having any shortness of breath but she felt like her breathing was a little heavier than normal. She denies any cough, no fever or chills. She did not have any fever or chills that last night after admission she had sweats through the night and completely saturated her nightgown. Patient was brought into [facility] emergency center and subsequently admitted to the cardiac stepdown unit. She has been seen by cardiology. EKG was atrial fibrillation with a ventricular paced rhythm. Due to elevated troponins, she was ruled in for acute coronary syndrome and scheduled for heart catheterization this afternoon. Patient was placed on a heparin drip and also nitro drip which was to be weaned off. She denies chest pain at the time of this evaluation but states that she did have a brief period of chest pain when she was undergoing echocardiogram today. Review of Systems Constitutional: Reports fatigue, Reports sweats, Reports weakness, Denies chills, Denies fever Eyes: denies blurred vision, denies pain Ears, nose, mouth and throat: Denies headache, Denies nasal congestion, Denies nasal discharge, Denies sore throat, Denies vertigo Cardiovascular: Reports chest pain, Reports shortness of breath, Denies dyspnea on exertion, Denies edema Respiratory: Reports cough with sputum, Denies cough, Denies dyspnea, Denies hemoptysis, Denies wheezing Gastrointestinal: Denies abdominal pain, Denies diarrhea, Denies loss of appetite, Denies nausea, Denies vomiting Genitourinary: Denies dysuria, Denies hematuria Musculoskeletal: Reports muscle weakness, Denies myalgias Integumentary: Denies pruritus, Denies rash, Denies wounds Neurological: Denies numbness, Denies weakness Psychiatric: Denies anxiety, Denies depression Endocrine: Denies fatigue, Denies weight change Past Medical History Past Medical History: Coronary Artery Disease (CAD), Chest Pain / Angina, Dementia, Diabetes Mellitus, Dialysis, Hyperlipidemia, Hypertension, Liver Disease, Myocardial Infarction (MS), Osteoarthritis (OA), Thyroid Disorder Additional Past Medical History / Comment(s): multiple MS's. ischemic cardiomyopathy. 12/29/15 STRESS WNL, ALLERGIC rhinitis,MS, CARDIO-PULMONARY ARREST 07/05/14 vertigo, hypertensive nephrosclerosis, Hepatitis A,Vitamin D deficiency, constipation, hx of a cat bit Last Myocardial Infarction Date:: 09/2013 History of Any Multi-Drug Resistant Organisms: MRSA, VRE Date of last positivie culture/infection: 11/11/18-VRE; 09/27/17 MRSA MDRO Source:: Urine-VRE; Right Breast-MRSA Past Surgical History: Adenoidectomy, Appendectomy, Cholecystectomy, Heart Catheterization With Stent, Hysterectomy, Tonsillectomy Additional Past Surgical History / Comment(s): mary cataracts, LAP-BAND 2004, Laparoscopic cholecystectomy, FIBULA FX has metal pins in place,Left shoulder surgery, Hemodialysis Cataract bilateral with IOL, fistula and sx to" reroute it",gets dialysis fri-fri-fri. has insulin pump. no bp on left, excisional debreidment rt lower ext. Past Anesthesia/Blood Transfusion Reactions: Motion Sickness, Postoperative Nausea & Vomiting (PONV) Additional Past Anesthesia/Blood Transfusion Reaction / Comment(s): blood transfusion-pt stated they gave her medication for a reaction but does'nt rememebr what the reaction was Date of Last Stent Placement:: 2014 Past Psychological History: Anxiety, Bipolar, Depression Additional Psychological History / Comment(s): pt. lives alone in apartment, uses walker for ambulation and has a wheelchair for longer distances, pt. no longer drives and takes city transport or has friends take her to appts. pt. has glucose reader, power w/c, shower chair, railing in br, walker and insulin pump. Smoking Status: Never smoker Past Alcohol Use History: None Reported Additional Past Alcohol Use History / Comment(s): Patient living in an apartment. She has a walker in the home and motorized wheelchair. She does not drive. She has a glucometer and insulin pump. She is a lifelong nonsmoker. She denies any alcohol use. No service. No international travel. She has a pet cat. Past Drug Use History: None Reported - Past Family History Mother Family Medical History: Congestive Heart Failure (CHF), Diabetes Mellitus, Hypertension Father History Unknown: Yes Family Medical History: Diabetes Mellitus Brother(s) Family Medical History: Diabetes Mellitus, Hyperlipidemia Additional Family Medical History / Comment(s): Hypertension chronic kidney disease Medications and Allergies Home Medications Medication Instructions Recorded Confirmed Type Famotidine [Pepcid] 20 mg PO DAILY@0600 04/29/14 04/02/19 History Atorvastatin [Lipitor] 80 mg PO HS@2100 12/27/16 04/02/19 History Calcium Acetate [Phoslo] 667 mg PO AC-TID 09/02/18 04/02/19 History Acetaminophen Tab [Tylenol Tab] 500 mg PO Q6H PRN 01/11/19 04/02/19 History Docusate Sodium [Dok] 100 mg PO BID@0900,2100 01/11/19 04/02/19 History Furosemide [Lasix] 20 mg PO BID@0600,1200 01/11/19 04/02/19 History Hydrocodone/Acetaminophen [[place] 1 tab PO BID 01/11/19 04/02/19 History 10-325] Insulin Glargine,Hum.rec.anlog 50 unit SQ HS 01/11/19 04/02/19 History [Basaglar Kwikpen U-100] Insulin Lispro [humaLOG Kwikpen] 12 unit SQ AC-TID 01/11/19 04/02/19 History Insulin Lispro [humaLOG Kwikpen] See Protocol SQ ACHS 01/11/19 04/02/19 History Levothyroxine Sodium [Synthroid] 175 mcg PO DAILY@0600 01/11/19 04/02/19 History Lidocaine-Prilocaine Cream [Emla 1 applic TOPICAL MOWEFR PRN 01/11/19 04/02/19 History Cream 2.5%/2.5%] amLODIPine [Norvasc] 5 mg PO DAILY@0900 01/11/19 04/02/19 History busPIRone HCL 5 mg PO BID@09,209901/11/19 04/02/19 History Aspirin EC [Ecotrin Low Dose] 81 mg PO DAILY@0900 04/02/19 04/02/19 History Bisacodyl [Dulcolax] 10 mg RECTAL HS PRN 04/02/19 04/02/19 History Escitalopram [Lexapro] 20 mg PO DAILY@0900 04/02/19 04/02/19 History Folic Acid-Vit B Complex-Vit C 1 cap PO MOWEFR@209904/02/19 04/02/19 History [Nephrocaps] Folic Acid-Vit B Complex-Vit C 1 mg PO SUTUTHSA@0900 04/02/19 04/02/19 History [Nephrocaps] Magnesium Hydroxide [Milk of 2,400 mg PO DAILY PRN 04/02/19 04/02/19 History Magnesia] Melatonin 10 mg PO HS@209904/02/19 04/02/19 History Na Phos,M-B/Na Phos,Di-Ba [Fleet 133 ml RECTAL DAILY PRN 04/02/19 04/02/19 History Adult] Ondansetron [Zofran] 4 mg PO Q6H PRN 04/02/19 04/02/19 History LORazepam [Ativan] 1 mg PO DAILY PRN 04/03/19 04/03/19 History Allergies Allergy/AdvReac Type Severity Reaction Status Date / Time adhesive Allergy Rash/Hives Verified 04/02/19 20:53 Penicillins Allergy Rash/Hives Verified 04/02/19 20:53 Iodinated Contrast Media AdvReac KIDNEY Verified 04/02/19 20:53 [Iodinated Contrast- Oral FAILURE and IV Dye] metformin AdvReac SUGAR Verified 04/02/19 20:53 LEVEL INCREASE Physical Exam Vitals: Vital Signs Temp Pulse Pulse Resp BP BP Pulse Ox 04/03/19 12:00 98.2 F 60 16 115/59 95 04/03/19 08:00 97.7 F 62 16 114/48 95 04/03/19 04:00 98.1 F 64 18 117/59 95 04/02/19 23:00 98.7 F 60 20 148/45 95 04/02/19 22:30 60 16 146/56 04/02/19 22:00 60 20 150/54 04/02/19 21:45 98.8 F 62 18 123/55 98 04/02/19 21:30 60 16 142/57 99 04/02/19 21:00 62 18 151/43 99 04/02/19 20:30 60 20 135/53 98 04/02/19 20:00 40 H 04/02/19 19:40 97.8 F 61 64 20 135/53 99 Intake and Output 04/02/19 04/03/19 04/03/19 22:59 06:59 14:59 Intake Total 100 Balance 100 Intake: Oral 100 Other: # Voids 1 Weight 98.6 kg 96.4 kg Gen: This is a 63-year-old obese female. Patient is lying flat in bed and appears to be comfortable. No respiratory distress is noted. HEENT: Head is atraumatic, normocephalic. Pupils equal, round. Sclerae is anicteric. NECK: Supple. No JVD. No lymphadenopathy. No thyromegaly. LUNGS: Clear to auscultation. No wheezes or rhonchi. No intercostal retractions. HEART: Regular rate and rhythm. Systolic murmur. ABDOMEN: Soft. Bowel sounds are present. No masses. No tenderness. EXTREMITIES: No pedal edema. No calf tenderness. NEUROLOGICAL: Patient is awake, alert and oriented x3. Cranial nerves 2 through 12 are grossly intact. Results CBC & Chem 7: 04/03/19 07:40 04/03/19 07:40 Labs: Abnormal Lab Results - Last 24 Hours (Table) 04/02/19 04/02/19 04/02/19 Range/Units 20:08 20:08 20:08 RBC 3.58 L (3.80-5.40) m/uL Hgb 11.1 L (11.4-16.0) gm/dL Hct (34.0-46.0) % RDW 16.1 H (11.5-15.5) % Plt Count 149 L (150-450) k/uL Lymphocytes # 0.4 L (1.0-4.8) k/uL APTT (22.0-30.0) sec Sodium 134 L (137-145) mmol/L Potassium 5.4 H (3.5-5.1) mmol/L Chloride 96 L (98-107) mmol/L BUN 53 H (7-17) mg/dL Creatinine 6.95 H (0.52-1.04) mg/dL Glucose 224 H (74-99) mg/dL POC Glucose (mg/dL) (75-99) mg/dL Phosphorus (2.5-4.5) mg/dL Magnesium 2.4 H (1.6-2.3) mg/dL AST 44 H (14-36) U/L Troponin I 2.490 H* (0.000-0.034) ng/mL 04/03/19 04/03/19 04/03/19 Range/Units 02:46 02:46 06:14 RBC (3.80-5.40) m/uL Hgb (11.4-16.0) gm/dL Hct (34.0-46.0) % RDW (11.5-15.5) % Plt Count (150-450) k/uL Lymphocytes # (1.0-4.8) k/uL APTT 49.0 H (22.0-30.0) sec Sodium (137-145) mmol/L Potassium (3.5-5.1) mmol/L Chloride (98-107) mmol/L BUN (7-17) mg/dL Creatinine (0.52-1.04) mg/dL Glucose (74-99) mg/dL POC Glucose (mg/dL) 211 H (75-99) mg/dL Phosphorus (2.5-4.5) mg/dL Magnesium (1.6-2.3) mg/dL AST (14-36) U/L Troponin I 3.430 H* (0.000-0.034) ng/mL 04/03/19 04/03/19 04/03/19 Range/Units 07:40 07:40 07:40 RBC 3.13 L (3.80-5.40) m/uL Hgb 9.8 L (11.4-16.0) gm/dL Hct 30.8 L (34.0-46.0) % RDW 16.0 H (11.5-15.5) % Plt Count (150-450) k/uL Lymphocytes # 0.7 L (1.0-4.8) k/uL APTT (22.0-30.0) sec Sodium 133 L (137-145) mmol/L Potassium 5.3 H (3.5-5.1) mmol/L Chloride 95 L (98-107) mmol/L BUN 59 H (7-17) mg/dL Creatinine 7.96 H* (0.52-1.04) mg/dL Glucose 228 H (74-99) mg/dL POC Glucose (mg/dL) (75-99) mg/dL Phosphorus 7.2 H (2.5-4.5) mg/dL Magnesium 2.5 H (1.6-2.3) mg/dL AST (14-36) U/L Troponin I 3.050 H* (0.000-0.034) ng/mL 04/03/19 04/03/19 Range/Units 07:40 11:49 RBC (3.80-5.40) m/uL Hgb (11.4-16.0) gm/dL Hct (34.0-46.0) % RDW (11.5-15.5) % Plt Count (150-450) k/uL Lymphocytes # (1.0-4.8) k/uL APTT 40.6 H (22.0-30.0) sec Sodium (137-145) mmol/L Potassium (3.5-5.1) mmol/L Chloride (98-107) mmol/L BUN (7-17) mg/dL Creatinine (0.52-1.04) mg/dL Glucose (74-99) mg/dL POC Glucose (mg/dL) 457 H (75-99) mg/dL Phosphorus (2.5-4.5) mg/dL Magnesium (1.6-2.3) mg/dL AST (14-36) U/L Troponin I (0.000-0.034) ng/mL Thrombosis Risk Factor Assmnt - Choose All That Apply Any of the Below Risk Factors Present?: Yes Each Factor Represents 1 point: Acute MS Other Risk Factors: Yes Each Risk Factor Represents 2 Points: Age 61-74 years Each Risk Factor Represents 3 Points: History of DVT/PE Other congenital or acquired thrombophilia - If yes, enter type in comment: No Thrombosis Risk Factor Assessment Total Risk Factor Score: 6 Thrombosis Risk Factor Assessment Level: High Risk Assessment and Plan Plan: 1. Acute non-ST elevated myocardial infarction. Patient to be weaned off nitro drip drip. Continue heparin drip for now. Patient is scheduled for heart catheterization this afternoon with Dr. [place]. 2. History of coronary artery disease with prior stenting of the LAD. 3. End-stage renal disease on hemodialysis Friday. Patient missed dialysis treatment on Friday. Nephrology consult with plan for hemodialysis after his heart catheterization today. Continue Nephrocaps, PhosLo. 4. Hypertension. Continue amlodipine 5 mg daily, Lasix 20 mg twice daily to start tomorrow 5. Hyperlipidemia. Continue atorvastatin 80 mg at bedtime 6. Gastroesophageal reflux disease and GI prophylaxis. Continue Pepcid daily. 7. Diabetes mellitus type 2, insulin requiring. Continue Levemir 28 units at bedtime, NovoLog 9 units 3 times daily and NovoLog scale. 8. Generalized anxiety disorder and recurrent depression. Continue BuSpar, Xanax, Lexapro. 9. DVT prophylaxis. Heparin drip. Patient will be admitted to the hospital for a minimum of 2 night stay. Discharge plan: [facility] on Friday. Social work consult. Impression and plan of care have been directed as dictated by the signing physician. Emely Contreras nurse practitioner acting as scribe for signing physician.
[2019-04-03] MEDS: HYDROcodone/APAP 10-325MG 1 EACH TAB PO PRN (19:29)
[2019-04-03 20:33] LABS: Glucose,Whole Blood 354 mg/dL (75-99)
[2019-04-03] MEDS: INSULIN DETEMIR (LEVEMIR) 100 UNIT/ML SYR SQ SCH (21:16)
[2019-04-03] MEDS: busPIRone HCl 5 MG TAB PO SCH (21:18)
[2019-04-03] MEDS: MELATONIN 5 MG TABLET PO SCH (21:18)
[2019-04-03] MEDS: HEPARIN SOD,PORK IN 0.45% NACL 25,000 UNIT in 0.45% NACL 1 250ML.BAG IV SCH (21:26)
[2019-04-03] MEDS: NITROGLYCERIN-D5W PMX 50 MG in DEXTROSE/WATER 1 250ML.BAG IV SCH (23:45)
[2019-04-04] MEDS: FAMOTIDINE 20 MG TAB PO SCH (05:14)
[2019-04-04] MEDS: LEVOTHYROXINE 75 MCG TAB PO SCH (05:15)
[2019-04-04] MEDS: LEVOTHYROXINE 100 MCG TAB PO SCH (05:15)
[2019-04-04] MEDS: FUROSEMIDE 20 MG TAB PO SCH ×2 (05:15→18:31)
[2019-04-04] MEDS: amLODIPine 5 MG TAB PO SCH ×2 (05:15→12:31)
[2019-04-04] MEDS: ESCITALOPRAM 20 MG TAB PO SCH (05:15)
[2019-04-04] MEDS: busPIRone HCl 5 MG TAB PO SCH ×2 (05:15→22:45)
[2019-04-04] MEDS: ASPIRIN 81 MG PO SCH (05:15)
[2019-04-04 06:30] LABS: Glucose,Whole Blood 386 mg/dL (75-99)
[2019-04-04] MEDS: FOLIC ACID-VIT B COMPLEX-VIT C 1 CAP PO SCH (06:40)
[2019-04-04] MEDS: INSULIN ASPART (NovoLOG) 100 UNIT/ML VIAL SQ SCH ×6 (06:40→21:06)
[2019-04-04] MEDS: HYDROcodone/APAP 10-325MG 1 EACH TAB PO PRN ×3 (06:42→16:31)
[2019-04-04] MEDS ORDERED: LIDOCAINE 1% INJ 10MG/ML (20 ML MDV) ONE (07:06)
[2019-04-04] MEDS ORDERED: CALCIUM ACETATE 667 MG TAB PO SCH (07:30)
[2019-04-04] MEDS: MIDAZOLAM 2 MG/2 ML VIAL IVP ONE ×2 (07:58→08:38)
[2019-04-04] MEDS ORDERED: LIDOCAINE 1% INJ 10MG/ML (20 ML MDV) SQ ONE (08:03)
[2019-04-04] MEDS ORDERED: IV FLUID CONTINUATION 400 ML IV ONE (08:05)
[2019-04-04] MEDS ORDERED: BIVALIRUDIN BOLUS 250 MG/50 ML IV ONE (08:17)
[2019-04-04] MEDS ORDERED: BIVALIRUDIN 250 MG in SODIUM CHLORIDE 0.9% 50 ML IV ONE (08:18)
[2019-04-04] MEDS ORDERED: IOPAMIDOL-370 125ML BTL INJ ONE (09:01)
[2019-04-04] MEDS ORDERED: CLOPIDOGREL 75 MG TAB ONE (09:14)
[2019-04-04] MEDS ORDERED: CLOPIDOGREL 75 MG TAB PO ONE (09:17)
[2019-04-04] MEDS ORDERED: IOPAMIDOL-370 100ML BTL INJ ONE (09:17)
[2019-04-04] MEDS ORDERED: NITROGLYCERIN SL TABS 0.4 MG TAB SUBLINGUAL PRN (09:25)
[2019-04-04] MEDS ORDERED: ATROPINE SULFATE 0.1 MG/ML 10ML SYRINGE IV PRN (09:25)
[2019-04-04] MEDS ORDERED: RX INFO: IV CONTRAST WAS GIVEN 1 EACH MISC MISCELLANE PRN (09:25)
[2019-04-04] MEDS ORDERED: ZOLPIDEM 5 MG TAB PO PRN (09:25)
[2019-04-04] MEDS ORDERED: MAG HYDROX/AL HYDROX/SIMETH 30 ML CUP PO PRN (09:25)
[2019-04-04] MEDS ORDERED: SODIUM CHLORIDE 0.9% 1,000 ML IV SCH (09:30)
[2019-04-04] MEDS: ALPRAZolam 0.5 MG TAB PO PRN ×2 (10:09→16:31)
--- NOTE | 2019-04-04 11:01 | P.PN ---
Subjective Progress Note Date: 04/04/19 Principal diagnosis: Chest pain Patient continued to be hemodynamically stable overnight and this morning she is feeling better after the cardiac catheterization denying chest pain shortness breath nausea vomiting dumping dizziness lightheadedness or blurry vision Objective - Vital Signs Vital signs: Vital Signs Temp 98.4 F 04/04/19 06:49 Pulse 60 04/04/19 06:49 Resp 18 04/04/19 06:49 BP 102/49 04/04/19 06:49 Pulse Ox 95 04/04/19 06:49 Intake & Output 04/03/19 04/04/19 04/04/19 18:59 06:59 18:59 Intake Total 430.88 668.752 150 Output Total 3800 Balance 430.88 -3131.248 150 Weight 96 kg Intake: IV 150 Intake, IV Titration 250.88 228.752 Amount Heparin Sod,Pork in 0.45% 78.88 228.752 NaCl 25,000 unit In 0.45 % NaCl 1 250ml.bag @ 10 UNITS/KG/HR 9.86 mls/hr IV .Q24H [facility] Rx#: [id number] Nitroglycerin-D5w Pmx 50 12.0 mg In Dextrose/Water 1 250ml.bag @ 5 MCG/MIN 1.5 mls/hr IV .Q24H [facility] Rx#: [id number] Sodium Chloride 0.9% 1, 160 000 ml In Empty Bag 1 bag @ 1 ML/KG/HR 96.4 mls/hr IV .[id number] [facility] Rx#: [id number] Oral 180 440 Output: Hemodialysis 3800 Other: # Voids 1 1 - Exam Gen.: in stated age, no acute distress Heart: Normal S1-S2 Lungs: Clear to auscultation bilaterally Abdomen: Soft, no tenderness, positive bowel sounds in all 4 quadrant no guarding or rebound Skin: No new rash Psych: Alert and oriented 3 Neuro: No focal deficit Left upper extremity fistula seems to be functioning and at baseline - Labs CBC & Chem 7: 04/03/19 07:40 04/03/19 07:40 Labs: Abnormal Lab Results - Last 24 Hours (Table) 04/03/19 04/03/19 04/03/19 Range/Units 11:49 16:53 20:31 POC Glucose (mg/dL) 457 H 344 H 354 H (75-99) mg/dL 04/04/19 Range/Units 06:28 POC Glucose (mg/dL) 386 H (75-99) mg/dL Assessment and Plan Assessment: 1. Non-ST elevation CO status post cardiac catheterization with drug-eluting stent placement. Patient seems to be stable in no acute distress tolerating her diet without difficulties. Would continue cardioprotective medication continue with strict instruction after cardiac catheterization regarding her ambulation and we will follow-up on vital signs closely repeat blood work in the morning and continue evidence based medicine. 2. Diabetes mellitus insulin-dependent. Patient was not placed on insulin sliding scale and glucose continued to be elevated I would like to initiate sliding scale name for glucose less than 180 during this hospital stay and adjust therapy based on reading. 3. End-stage renal disease on hemodialysis Friday and Friday. Will follow-up with nephrology recommendation. 4. Hypertension. Fairly controlled with continue home medication with holding parameters. 5. Hyperlipidemia. Continue statin. Discharge planning based on clinical progress
--- NOTE | 2019-04-04 11:29 | P.PN ---
Subjective Progress Note Date: 04/04/19 Principal diagnosis: This is a 63-year-old with ESRD on dialysis Friday. Admitted with chest pain and feeling unwell for about 1 or 2 weeks prior to this. She underwent coronary stenting this morning supposedly there 2 lesions one of them could be stented the 1 his 100% blocked and needs more cardiac catheterization and atherectomy. She is chest pain-free this morning. Denies any shortness of breath She was dialyzed yesterday Friday as she missed her dialysis on Friday. She is known with diabetes, ESRD, ASHD, ischemic cardiopathy myopathy she is brittany ewhat obese. Objective - Vital Signs Vital signs: Vital Signs Temp 98.4 F 04/04/19 06:49 Pulse 60 04/04/19 06:49 Resp 18 04/04/19 06:49 BP 102/49 04/04/19 06:49 Pulse Ox 95 04/04/19 06:49 Intake & Output 04/03/19 04/04/19 04/04/19 18:59 06:59 18:59 Intake Total 430.88 668.752 150 Output Total 3800 Balance 430.88 -3131.248 150 Weight 96 kg Intake: IV 150 Intake, IV Titration 250.88 228.752 Amount Heparin Sod,Pork in 0.45% 78.88 228.752 NaCl 25,000 unit In 0.45 % NaCl 1 250ml.bag @ 10 UNITS/KG/HR 9.86 mls/hr IV .Q24H [facility] Rx#: [id number] Nitroglycerin-D5w Pmx 50 12.0 mg In Dextrose/Water 1 250ml.bag @ 5 MCG/MIN 1.5 mls/hr IV .Q24H ONE Rx#: [id number] Sodium Chloride 0.9% 1, 160 000 ml In Empty Bag 1 bag @ 1 ML/KG/HR 96.4 mls/hr IV .U00Q17M ONE Rx#: [id number] Oral 180 440 Output: Hemodialysis 3800 Other: # Voids 1 1 Currently on exam she is awake alert oriented comfortable chest pain-free HEENT exam no JVP neck is supple no facial asymmetry Lungs are clear to auscultation good air entry bilaterally Heart sounds are unremarkable for any murmur rub gallop Abdomen is soft nontender no masses felt Extremity exam was no edema Neurologically awake alert oriented. - Labs CBC & Chem 7: 04/03/19 07:40 04/03/19 07:40 Labs: Abnormal Lab Results - Last 24 Hours (Table) 04/03/19 04/03/19 04/03/19 Range/Units 11:49 16:53 20:31 POC Glucose (mg/dL) 457 H 344 H 354 H (75-99) mg/dL 04/04/19 Range/Units 06:28 POC Glucose (mg/dL) 386 H (75-99) mg/dL Assessment and Plan Assessment: Impression 1. ESRD on dialysis Friday, 3 hours 45 minutes and 3-4 kg ultrafiltration. She was dialyzed yesterday Friday because she missed her Friday dialysis 2. admitted with chest pain elevated troponin likely acute DE. Status post cardiac cath and stenting of one of 2 lesions this morning 04/04/2019. Supposedly needs another heart catheterization for fixing the remaining lesion 3. Diabetes mellitus for 20 years. 4. Mild degree of anemia secondary to ESRD hemoglobin 9.8 was 11.1 yesterday. 5. Mild hyponatremia and hyperkalemia from ESRD. Sodium was 133 yesterday predialysis. 6. Mild hyperphosphatemia Recommendation 1. Schedule for dialysis tomorrow. 2. Discharge per cardiology and primary service, and readmitted as needed for repeat cardiac cath 3. Will watch her anemia and start her on Aranesp 40 g every week 4. Will check iron saturation
[2019-04-04 12:40] VITALS: BMI 34.1
[2019-04-04 13:07] LABS: Glucose,Whole Blood 188 mg/dL (75-99)
--- NOTE | 2019-04-04 14:29 | LTR ---
DATE OF SERVICE: April 04, 2019. Dear Dr. Gar: Ms. Ethel Marrufo was admitted to [facility] with chest discomfort and ruled in for acute thz-WH-qgqymakwj myocardial infarction. She underwent a heart catheterization and stenting of the left anterior descending artery. I want to thank you for allowing us to participate in her care and please do not hesitate to call if you have any questions or concerns. Sincerely, MMTODDL / IJN: [id number] /
--- NOTE | 2019-04-04 14:29 | CC ---
CARDIAC CATHETERIZATION REPORT DATE OF SERVICE: April 04, 2019. PERFORMING PHYSICIAN: Rom Cleveland MD. PROCEDURE PERFORMED: 1. Selective right and left coronary angiogram. 2. Successful stenting of the mid left anterior descending artery using 2.5 x 18 mm Xience MARCO with an excellent angiographic result and reduction of stenosis from 80% to 0%. 3. Balloon angioplasty of the first obtuse marginal branch of the left circumflex. INDICATION: This is a 63-year-old female patient who sees Dr. Jc in the office as an outpatient with coronary artery disease and prior stenting of the LAD and LCX as well as end stage renal disease on dialysis, who presented to the hospital with chest discomfort and ruled in for acute gmk-BK-xmbspmgwb myocardial infarction. Because she continues to have ongoing chest discomfort on nitroglycerin drip, we decided to bring her to the [facility]. APPROACH: Right common femoral artery. COMPLICATIONS: None. LEVEL OF SEDATION: Moderate with sedation length of 80 minutes. PROCEDURE DESCRIPTION: After obtaining an informed consent, the patient was brought to the [facility]. The right common femoral artery was cannulated using micropuncture technique, the micropuncture wire passed easily. Then I placed a 6-Uzbek sheath in the right groin. After that, I did selective right and left coronary angiogram with JR4 and JL4 catheters. Left heart catheterization was performed using 6-Uzbek pigtail catheter. After that, I did intervene on the left circumflex and RCA. Please see a separate paragraph for that. SELECTIVE CORONARY ANGIOGRAM: 1. The right coronary artery is a large caliber vessel and is a dominant vessel. The RCA is angiographically normal. It is calcified. Distally bifurcates into PDA and PLV branches both appeared to have mild disease only. 2. The left main is angiographically normal. It bifurcates into LCX as well as LAD. 3. The LCX is a large caliber vessel and it is a nondominant vessel. The left circumflex appeared to have mild disease in the proximal portion. It gives rise into a medium-sized OM branch which seems to be occluded in the midportion. 4. The proximal LAD appeared to be calcified with mild disease only. It is stented and the stent is patent. The mid LAD appeared to have a lesion in the range of 80%. It appeared to be de Minesh lesion between the 2 stents. The LAD distally appeared to be normal. HEMODYNAMICS: The LVEDP was 20 mmHg without significant gradient across aortic valve. PCI OF THE LAD AND LCX: Anticoagulation was initiated with Angiomax. Subsequently I engaged the left main with XB 3 5 guide. I did wire the LAD using a whisper wire. After that, I did balloon angioplasty using 2.5 x 12 mm balloon and then I deployed 2.5 x 18 mm Xience MARCO where the stent was positioned under fluoroscopy guidance and deployed under its nominal pressure. After that, I post dilated the stent using 2.75 mm NC balloon which was inflated under 18 atmospheres for 20 seconds. The following angiogram showed excellent angiographic results. After that, I did wire the left OM using a Whisper wire, but I was unable. Then, with the backup support of [place] catheter, I was able to wire the left circumflex using the filter XT wire. I could not advance even 1.5 mm balloon across the mid OM1. I did balloon angioplasty of the very proximal portion of OM1, but I could not cross the lesion with any balloon. Because of that, I decided to stop and the patient might benefit from atherectomy if she continues to be symptomatic. CONCLUSION: 1. Acute vna-GO-wpccvqgwy myocardial infarction. 2. Calcified right and left coronary systems. 3. Mild disease involving the right coronary artery. 4. Severe disease involving the mid LAD in between 2 stents. 5. Occluded OM1 of the left circumflex which is probably chronic. 6. Successful stenting of the LAD using 2.5 x 18 mm Xience MARCO with an excellent angiographic results. 7. Dual anti-platelet therapy. 8. Risk factors modifications. 9. Follow up with the patient. MMODL / IJN: [id number] /
[2019-04-04 16:42] LABS: Glucose,Whole Blood 184 mg/dL (75-99)
--- NOTE | 2019-04-04 17:00 | ECHOF ---
Referral Reason:cp R/O ACS MEASUREMENTS -------- HEIGHT: 165.1 cm WEIGHT: 96.2 kg BP: RVIDd: 3.8 cm (< 3.3) IVSd: 1.3 cm (0.6 - 1.1) LVIDd: 4.4 cm (3.9 - 5.3) LVPWd: 1.3 cm (0.6 - 1.1) IVSs: 1.4 cm LVIDs: 3.5 cm LVPWs: 1.5 cm LA Diam: 4.9 cm (2.7 - 3.8) LAESV Index (A-L): 38.10 ml/m Ao Diam: 3.0 cm (2.0 - 3.7) AV Cusp: 1.0 cm (1.5 - 2.6) LA Diam: 4.9 cm (2.7 - 3.8) MV EXCURSION: 18.395 mm (> 18.000) MV EF SLOPE: 68 mm/s (70 - 150) EPSS: 0.6 cm MV E Rerol: 0.99 m/s MV DecT: 179 ms MV A Errol: 0.19 m/s MV E/A Ratio: 5.28 AV maxP.29 mmHg AV meanP.77 mmHg RAP: 5.00 mmHg RVSP: 88.40 mmHg FINDINGS -------- Sinus rhythm. Morbid Obesity This was a techncally difficult study with suboptimal views, , Lumason utilized for enhancement of im ages. The left ventricular size is normal. There is mild concentric left ventricular hypertrophy. Overa ll left ventricular systolic function is mild-moderately impaired with, an EF between 40 - 45 %. In creased Lap Grade III Diastolic Dysfunction. Apical septum LV wall motion is hypokinetic. 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 The left atrium is markedly dilated. LA is severely dilated >40 ml/m2 The right atrial size is normal. 5.0mg OF Lumason UTLIZED: 2 OR MORE WALL SEGMENTS NOT VISUALIZED. There is mild aortic valve sclerosis. Peak/mean gradient across the Aortic Valve is 11.29mmHg / 5.7 7mmHg. Mild mitral annular calcification present. Vtjj-ry-jbkpbimu mitral regurgitation is present. Mild tricuspid regurgitation present. There is severe pulmonary hypertension. The right ventricul ar systolic pressure, as measured by Doppler, is 88.40mmHg. There is no pulmonic regurgitation present. The aortic root size is normal. There is no pericardial effusion. CONCLUSIONS -------- 1. Sinus rhythm. 2. Morbid Obesity 3. This was a techncally difficult study with suboptimal views, , Lumason utilized for enhancement of images. 4. The left ventricular size is normal. 5. There is mild concentric left ventricular hypertrophy. 6. Overall left ventricular systolic function is mild-moderately impaired with, an EF between 40 - 45 %. 7. Increased Lap Grade III Diastolic Dysfunction. 8. Apical septum LV wall motion is hypokinetic. 9. Posterior hypokinesis 10. The right ventricle is mild to moderately enlarged. 11. The left atrium is markedly dilated. 12. LA is severely dilated >40 ml/m2 13. The right atrial size is normal. 14. 5.0mg OF Lumason UTLIZED: 2 OR MORE WALL SEGMENTS NOT VISUALIZED. 15. There is mild aortic valve sclerosis. 16. Peak/mean gradient across the Aortic Valve is 11.29mmHg / 5.77mmHg. 17. Mild mitral annular calcification present. 18. Ptws-ez-lxpmczgt mitral regurgitation is present. 19. Mild tricuspid regurgitation present. 20. There is severe pulmonary hypertension. 21. The right ventricular systolic pressure, as measured by Doppler, is 88.40mmHg. 22. There is no pulmonic regurgitation present. 23. The aortic root size is normal. 24. There is no pericardial effusion. GLOVE CLEANER: Eunice Appiah RDCS
[2019-04-04] MEDS: CALCIUM ACETATE 667 MG TAB PO SCH (17:05)
[2019-04-04] MEDS ORDERED: HYDROmorphone 0.5 MG/0.5 ML SYRINGE IVP STA (18:23)
[2019-04-04 20:48] LABS: Glucose,Whole Blood 60 mg/dL (75-99)
[2019-04-04] MEDS: NITROGLYCERIN-D5W PMX 50 MG in DEXTROSE/WATER 1 250ML.BAG IV SCH (21:10)
[2019-04-04] MEDS: HEPARIN SOD,PORK IN 0.45% NACL 25,000 UNIT in 0.45% NACL 1 250ML.BAG IV SCH (21:10)
[2019-04-04 21:18] LABS: Glucose,Whole Blood 54 mg/dL (75-99)
[2019-04-04 21:31] LABS: Glucose,Whole Blood 48 mg/dL (75-99)
[2019-04-04] MEDS ORDERED: DEXTROSE 10 % IN WATER 250 ML IV ONE (21:31)
[2019-04-04 21:47] LABS: Glucose,Whole Blood 131 mg/dL (75-99)
[2019-04-04] MEDS: ATORVASTATIN 80 MG TAB PO SCH (22:45)
[2019-04-04] MEDS: MELATONIN 5 MG TABLET PO SCH (22:45)
[2019-04-04] MEDS: INSULIN DETEMIR (LEVEMIR) 100 UNIT/ML SYR SQ SCH (22:55)
[2019-04-05 06:05] LABS: Glucose,Whole Blood 513 mg/dL (75-99)
[2019-04-05] MEDS ORDERED: INSULIN DETEMIR (LEVEMIR) 100 UNIT/ML SYR SQ STA (06:53)
[2019-04-05] MEDS: LEVOTHYROXINE 75 MCG TAB PO SCH (06:58)
[2019-04-05] MEDS: FAMOTIDINE 20 MG TAB PO SCH (06:58)
[2019-04-05] MEDS: LEVOTHYROXINE 100 MCG TAB PO SCH (06:58)
[2019-04-05] MEDS: FUROSEMIDE 20 MG TAB PO SCH ×2 (06:58→12:10)
[2019-04-05] MEDS: CALCIUM ACETATE 667 MG TAB PO SCH ×2 (06:59→17:41)
[2019-04-05] MEDS: INSULIN ASPART (NovoLOG) 100 UNIT/ML VIAL SQ SCH ×7 (07:10→20:58)
--- NOTE | 2019-04-05 11:00 | P.PN ---
Subjective Patient is seen in follow for incisional disease. She is maintained on hemodialysis on Friday schedule. Feels weak. She underwent stenting of the mid LAD yesterday and balloon angioplasty of the first obtuse marginal branch of the left circumflex. No chest pain. Tolerating hemodialysis well. Vital signs are stable. General: The patient appeared well nourished and normally developed. HEENT: Head exam is unremarkable. Neck is without jugular venous distension. LUNGS: Lungs are clear to auscultation and percussion. Breath sounds decreased. HEART: Rate and Rhythm are regular. First and second heart sounds normal. No murmurs, rubs or gallops. ABDOMEN: Abdominal exam reveals normal bowel sounds. Non-tender and non-diste nded. No evidence of peritonitis. EXTREMITITES: 1+ edema. Objective - Vital Signs Vital signs: Vital Signs Temp 98.1 F 04/05/19 08:00 Pulse 80 04/05/19 08:00 Resp 16 04/05/19 08:00 BP 159/62 04/05/19 08:00 Pulse Ox 95 04/05/19 08:00 Intake & Output 04/04/19 04/05/19 04/05/19 18:59 06:59 18:59 Intake Total 270 250 300 Balance 270 250 300 Weight 96 kg 96.8 kg Intake: IV 150 Intake, IV Titration 250 Amount Dextrose 10 % in Water 250 250 ml @ 999 mls/hr IV ONCE ONE Rx#:[id number] Oral 120 300 Other: # Voids 0 - Labs CBC & Chem 7: 04/03/19 07:40 04/05/19 05:33 Labs: Abnormal Lab Results - Last 24 Hours (Table) 04/04/19 04/04/19 04/04/19 Range/Units 12:55 16:40 20:46 Creatinine (0.52-1.04) mg/dL POC Glucose (mg/dL) 188 H 184 H 60 L (75-99) mg/dL 04/04/19 04/04/19 04/04/19 Range/Units 21:17 21:30 21:46 Creatinine (0.52-1.04) mg/dL POC Glucose (mg/dL) 54 L 48 L 131 H (75-99) mg/dL 04/05/19 04/05/19 Range/Units 05:33 05:59 Creatinine 7.26 H* (0.52-1.04) mg/dL POC Glucose (mg/dL) 513 H (75-99) mg/dL Assessment and Plan Plan: Assessment: 1. End-stage renal disease maintained on hemodialysis on Friday schedule. 2. Coronary artery disease status post stenting of the mid LAD and balloon angioplasty of the first obtuse marginal branch off the left circumflex on 04/04/2019. 3. Hypertension with chronic kidney disease. 4. Chronic kidney disease mineral bone disease maintained on PhosLo. 5. Anemia of chronic kidney disease maintained on Aranesp. Plan: Currently seen while undergoing hemodialysis. Next treatment on Friday.
--- NOTE | 2019-04-05 11:51 | P.PN ---
Subjective Progress Note Date: 04/05/19 This is a 63-year-old obese female patient of JAE Cordova, Mayank with multiple medical problem was known to have end-stage kidney disease on hemodialysis Friday, coronary artery disease and prior coronary artery stenting, diabetes type 2 on insulin pump, dyslipidemia, history of permanent pacemaker, atrial fibrillation. Patient was last admitted in July 2018 which time she was seen for possible TIA and severe hyperkalemia. Patient has been residing at [facility] for subacute rehab due to fracture of the right tibia. Patient presented to the hospital with symptoms of chest discomfort, she was taken to the cardiac catheterization lab where she underwent stenting of the LAD and PTCA of the OM. The patient was seen and examined this morning, she was complaining of some right shoulder discomfort that worsened on palpation or movement of the shoulder. She denied any chest pain in her breathing is stable. Currently patient is undergoing dialysis. Let pressure 110/70 with a heart rate in the 80s, 95% on room air. Creatinine this morning 7.2. Objective - Vital Signs Vital signs: Vital Signs Temp 97.8 F 04/05/19 11:29 Pulse 82 04/05/19 11:29 Resp 18 04/05/19 11:29 BP 110/79 04/05/19 11:29 Pulse Ox 95 04/05/19 11:29 Intake & Output 04/04/19 04/05/19 04/05/19 18:59 06:59 18:59 Intake Total 270 250 300 Balance 270 250 300 Weight 96 kg 96.8 kg Intake: IV 150 Intake, IV Titration 250 Amount Dextrose 10 % in Water 250 250 ml @ 999 mls/hr IV ONCE ONE Rx#:[id number] Oral 120 300 Other: # Voids 0 - Exam Gen: This is a 63-year-old obese female. Patient is lying flat in bed and appears to be comfortable. No respiratory distress is noted. HEENT: Head is atraumatic, normocephalic. Pupils equal, round. Sclerae is anicteric. NECK: Supple. No JVD. No lymphadenopathy. No thyromegaly. LUNGS: Clear to auscultation. No wheezes or rhonchi. No intercostal retractions. HEART: Regular rate and rhythm. Systolic murmur. ABDOMEN: Soft. Bowel sounds are present. No masses. No tenderness. EXTREMITIES: No pedal edema. No calf tenderness. Right groin soft, no evidence of any hematoma. NEUROLOGICAL: Patient is awake, alert and oriented x3. Cranial nerves 2 through 12 are grossly intact. - Labs CBC & Chem 7: 04/03/19 07:40 04/05/19 05:33 Labs: Abnormal Lab Results - Last 24 Hours (Table) 04/04/19 04/04/19 04/04/19 Range/Units 12:55 16:40 20:46 Creatinine (0.52-1.04) mg/dL POC Glucose (mg/dL) 188 H 184 H 60 L (75-99) mg/dL 04/04/19 04/04/19 04/04/19 Range/Units 21:17 21:30 21:46 Creatinine (0.52-1.04) mg/dL POC Glucose (mg/dL) 54 L 48 L 131 H (75-99) mg/dL 04/05/19 04/05/19 Range/Units 05:33 05:59 Creatinine 7.26 H* (0.52-1.04) mg/dL POC Glucose (mg/dL) 513 H (75-99) mg/dL Assessment and Plan Plan: Assessment and Plan: 1. Acute non-ST elevated myocardial infarction. Status post stenting of the LAD, PTCA of the OM branch of the circumflex 2. History of coronary artery disease with prior stenting of the LAD. 3. End-stage renal disease on hemodialysis Friday. Patient missed dialysis treatment on Friday. 4. Hypertension. 5. Hyperlipidemia. 6. Gastroesophageal reflux disease and GI prophylaxis. 7. Diabetes mellitus type 2, insulin requiring. 8. Generalized anxiety disorder and recurrent depression. Plan From cardiology's perspective, patient may be able to be discharged home once cleared by primary. We will make her a follow-up appointment to see Dr. JAE Jc in the office post discharge. DNP note has been reviewed, I agree with a documented findings and plan of care. Patient was seen and examined.
[2019-04-05 11:55] LABS: Glucose,Whole Blood 260 mg/dL (75-99)
[2019-04-05] MEDS: CLOPIDOGREL 75 MG TAB PO SCH (12:10)
[2019-04-05] MEDS: HYDROcodone/APAP 10-325MG 1 EACH TAB PO PRN ×2 (12:10→20:59)
[2019-04-05] MEDS: ESCITALOPRAM 20 MG TAB PO SCH (12:10)
[2019-04-05] MEDS: amLODIPine 2.5 MG TAB PO SCH (12:10)
[2019-04-05] MEDS: busPIRone HCl 5 MG TAB PO SCH ×2 (12:10→20:56)
[2019-04-05] MEDS: ASPIRIN 81 MG PO SCH (12:10)
[2019-04-05] MEDS ORDERED: HYDROcodone/APAP 10-325MG 1 EACH TAB PO PRN (16:19)
--- NOTE | 2019-04-05 16:26 | P.PN ---
Subjective Progress Note Date: 04/05/19 This is a 63-year-old obese female patient of JAE Cordova, Mayank with multiple medical problem was known to have end-stage kidney disease on hemodialysis Friday, coronary artery disease and prior coronary artery stenting, diabetes type 2 on insulin pump, dyslipidemia, history of permanent pacemaker, atrial fibrillation. Patient was last admitted in July 2018 which time she was seen for possible TIA and severe hyperkalemia. Patient has been residing at [facility] for subacute rehab due to fracture of the right tibia. Patient states that she was in bed and developed chest pain on the left side. All day she had not been feeling well on Friday and did not go to tanya lysis treatment. The chest pain started around 2:30 in the afternoon. It felt like a discomfort and she was holding the side of her chest. She also developed pain in the back of her left arm when she stood up. She denies having any shortness of breath but she felt like her breathing was a little heavier than normal. She denies any cough, no fever or chills. She did not have any fever or chills that last night after admission she had sweats through the night and completely saturated her nightgown. Patient was brought into [facility] emergency center and subsequently admitted to the cardiac stepdown unit. She has been seen by cardiology. EKG was atrial fibrillation with a ventricular paced rhythm. Due to elevated troponins, she was ruled in for acute coronary syndrome and scheduled for heart catheterization this afternoon. Patient was placed on a heparin drip and also nitro drip which was to be weaned off. She denies chest pain at the time of this evaluation but states that she did have a brief period of chest pain when she was undergoing echocardiogram tod ay. patient examined bedside complains of extreme weakness and numbness and sleepiness. On evaluation of the vitals, temp is 97.9 pulse 60 respiratory rate 18 blood pressure 134/62 saturating at 94% on room air. Patient's blood sugar ranging from 132 to 260 currently controlled on insulin sliding scale. Patient's insulin pump is on hold. Patient 's norco decreased to every 12 hours as patient has overdosed on norco int he past du to decreased renal clearance Review of Systems Constitutional: Reports fatigue, Reports sweats, Reports weakness, Denies chills, Denies fever Eyes: denies blurred vision, denies pain Ears, nose, mouth and throat: Denies headache, Denies nasal congestion, Denies nasal discharge, Denies sore throat, Denies vertigo Cardiovascular: Reports chest pain, Reports shortness of breath, Denies dyspnea on exertion, Denies edema Respiratory: Reports cough with sputum, Denies cough, Denies dyspnea, Denies hemoptysis, Denies wheezing Gastrointestinal: Denies abdominal pain, Denies diarrhea, Denies loss of appetite, Denies nausea, Denies vomiting Genitourinary: Denies dysuria, Denies hematuria Musculoskeletal: Reports muscle weakness, Denies myalgias Integumentary: Denies pruritus, Denies rash, Denies wounds Neurological: Denies numbness, Denies weakness Psychiatric: Denies anxiety, Denies depression Endocrine: Denies fatigue, Denies weight change Objective - Vital Signs Vital signs: Vital Signs Temp 97.9 F 04/05/19 15:36 Pulse 60 04/05/19 15:36 Resp 18 04/05/19 15:36 BP 134/62 04/05/19 15:36 Pulse Ox 94 L 04/05/19 15:36 Intake & Output 04/04/19 04/05/19 04/05/19 18:59 06:59 18:59 Intake Total 270 250 540 Output Total 1999 Balance 270 250 -1460 Weight 96 kg 96.8 kg Intake: IV 150 Intake, IV Titration 250 Amount Dextrose 10 % in Water 250 250 ml @ 999 mls/hr IV ONCE ONE Rx#:[id number] Oral 120 540 Output: Hemodialysis 1999 Other: # Voids 0 - Exam - Constitutional General appearance: cooperative, no acute distress, obese - EENT Eyes: anicteric sclerae, PERRLA, normal appearance ENT: hearing grossly normal - Neck Neck: no lymphadenopathy, normal ROM, no other, no rigidity, no stridor, no thyromegaly - Respiratory Respiratory: bilateral: CTA, negative: diminished, dullness, rales, rhonchi - Cardiovascular Rhythm: regular Heart sounds: normal: S1, S2 Abnormal Heart Sounds: no systolic murmur, no diastolic murmur, no rub, no S3 Gallop, no S4 Gallop, no click, no other - Gastrointestinal General gastrointestinal: normal bowel sounds, soft nontender - Integumentary Integumentary: no rash - Neurologic Neurologic: CNII-XII intact - Musculoskeletal Musculoskeletal: gait not assessed, strength equal bilaterally - Psychiatric Psychiatric: A&O x's 3, appropriate affect - Labs CBC & Chem 7: 04/03/19 07:40 04/05/19 05:33 Labs: Abnormal Lab Results - Last 24 Hours (Table) 04/04/19 04/04/19 04/04/19 Range/Units 16:40 20:46 21:17 Creatinine (0.52-1.04) mg/dL POC Glucose (mg/dL) 184 H 60 L 54 L (75-99) mg/dL 04/04/19 04/04/19 04/05/19 Range/Units 21:30 21:46 05:33 Creatinine 7.26 H* (0.52-1.04) mg/dL POC Glucose (mg/dL) 48 L 131 H (75-99) mg/dL 04/05/19 04/05/19 Range/Units 05:59 11:53 Creatinine (0.52-1.04) mg/dL POC Glucose (mg/dL) 513 H 260 H (75-99) mg/dL Assessment and Plan Plan: 1. Acute non-ST elevated myocardial infarction status post drug acute stenting of LAD and PTCA of OM branch of circumflex. 2. History of coronary artery disease with prior stenting of the LAD. 3. End-stage renal disease on hemodialysis Friday. Patient missed dialysis treatment on Friday. Nephrology consult with plan for hemodialysis palpitations in the hospital Continue Nephrocaps, PhosLo. 4. Hypertension. Continue amlodipine 5 mg daily, Lasix 20 mg twice daily 5. Hyperlipidemia. Continue atorvastatin 80 mg at bedtime 6. Gastroesophageal reflux disease and GI prophylaxis. Continue Pepcid daily. 7. Diabetes mellitus type 2, insulin requiring. Levemir 32 units at bedtime, NovoLog 9 units 3 times daily and NovoLog scale. 8. Generalized anxiety disorder and recurrent depression. Continue BuSpar, Xanax, Lexapro. 9. DVT prophylaxis. Heparin scbid . Discharge plan: Angelica jansen tomorrow
[2019-04-05 16:44] LABS: Anisocytosis Slight; Basophils # (A) 0.1 k/uL (0-0.2); Basophils % (A) 1 %; Eosinophils # (A) 0.1 k/uL (0-0.7); Eosinophils % (A) 1 %; HCT 34.1 % (34.0-46.0); HGB 10.6 gm/dL (11.4-16.0); Hypochromasia Slight; Lymphocytes # (A) 0.3 k/uL (1.0-4.8); Lymphocytes % (A) 3 %; MCHC 31.1 g/dL (31.0-37.0); MCV 99.6 fL (80.0-100.0); Macrocytosis Slight; Mean Platelet Volume 8.9; Monocytes # (A) 0.6 k/uL (0-1.0); Monocytes % (A) 5 %; Neutrophils # (A) 9.4 k/uL (1.3-7.7); Neutrophils % (A) 88 %; Platelet Count 182 k/uL (150-450); RBC 3.43 m/uL (3.80-5.40); RDW 16.5 % (11.5-15.5); WBC 10.6 k/uL (3.8-10.6)
[2019-04-05 17:10] LABS: Glucose,Whole Blood 256 mg/dL (75-99)
[2019-04-05 18:14] LABS: Albumin 3.8 g/dL (3.5-5.0); Calcium 9.6 mg/dL (8.4-10.2); Potassium 5.2 mmol/L (3.5-5.1); Total Bilirubin 0.7 mg/dL (0.2-1.3); Total Protein 6.7 g/dL (6.3-8.2)
[2019-04-05 20:53] LABS: Glucose,Whole Blood 268 mg/dL (75-99)
[2019-04-05] MEDS: ATORVASTATIN 80 MG TAB PO SCH (20:55)
[2019-04-05] MEDS: HEPARIN SODIUM,PORCINE 5,000 UNIT/ML 1 ML VIAL SQ SCH (20:56)
[2019-04-05] MEDS: MELATONIN 5 MG TABLET PO SCH (20:56)
[2019-04-05] MEDS ORDERED: FOLIC ACID-VIT B COMPLEX-VIT C 1 CAP PO SCH (21:00)
[2019-04-05] MEDS ORDERED: INSULIN DETEMIR (LEVEMIR) 100 UNIT/ML SYR SQ SCH (21:00)
[2019-04-05] MEDS: NITROGLYCERIN-D5W PMX 50 MG in DEXTROSE/WATER 1 250ML.BAG IV SCH (21:02)
[2019-04-06 04:35] VITALS: RESP 18
[2019-04-06] MEDS: CALCIUM ACETATE 667 MG TAB PO SCH (06:26)
[2019-04-06] MEDS: LEVOTHYROXINE 100 MCG TAB PO SCH (06:26)
[2019-04-06] MEDS: FUROSEMIDE 20 MG TAB PO SCH ×2 (06:26→12:49)
[2019-04-06] MEDS: FAMOTIDINE 20 MG TAB PO SCH (06:26)
[2019-04-06] MEDS: LEVOTHYROXINE 75 MCG TAB PO SCH (06:26)
[2019-04-06 07:23] LABS: Glucose,Whole Blood 268 mg/dL (75-99)
[2019-04-06] MEDS: INSULIN ASPART (NovoLOG) 100 UNIT/ML VIAL SQ SCH ×4 (07:40→12:49)
[2019-04-06 07:58] LABS: Anisocytosis Slight; HCT 34.2 % (34.0-46.0); HGB 10.5 gm/dL (11.4-16.0); Hypochromasia Moderate; MCH 31.2 pg (25.0-35.0); MCHC 30.8 g/dL (31.0-37.0); MCV 101.3 fL (80.0-100.0); Macrocytosis Slight; Mean Platelet Volume 8.8; Platelet Count 220 k/uL (150-450); RBC 3.37 m/uL (3.80-5.40); RDW 16.3 % (11.5-15.5); WBC 10.7 k/uL (3.8-10.6)
[2019-04-06 08:11] LABS: Calcium 9.8 mg/dL (8.4-10.2); Potassium 5.7 mmol/L (3.5-5.1)
[2019-04-06] MEDS: HEPARIN SODIUM,PORCINE 5,000 UNIT/ML 1 ML VIAL SQ SCH (10:01)
[2019-04-06] MEDS: ASPIRIN 81 MG PO SCH (10:02)
[2019-04-06] MEDS: CLOPIDOGREL 75 MG TAB PO SCH (10:02)
[2019-04-06] MEDS: amLODIPine 2.5 MG TAB PO SCH (10:02)
[2019-04-06] MEDS: busPIRone HCl 5 MG TAB PO SCH (10:02)
[2019-04-06] MEDS: FOLIC ACID-VIT B COMPLEX-VIT C 1 CAP PO SCH (10:02)
[2019-04-06] MEDS: ESCITALOPRAM 20 MG TAB PO SCH (10:02)
[2019-04-06] MEDS: HYDROcodone/APAP 10-325MG 1 EACH TAB PO PRN (10:22)
[2019-04-06 10:50] VITALS: BP 155/100; PULSE 61; TEMP 99
--- NOTE | 2019-04-06 11:08 | P.PN ---
Subjective Patient is seen in follow for incisional disease. She is maintained on hemodialysis on Friday schedule. Feels weak. She underwent stenting of the mid LAD on April 04 and balloon angioplasty of the first obtuse marginal branch of the left circumflex. No chest pain. No issues with dialysis yesterday. Vital signs are stable. General: The patient appeared well nourished and normally developed. HEENT: Head exam is unremarkable. Neck is without jugular venous distension. LUNGS: Lungs are clear to auscultation and percussion. Breath sounds decreased. HEART: Rate and Rhythm are regular. First and second heart sounds normal. No murmurs, rubs or gallops. ABDOMEN: Abdominal exam reveals normal bowel sounds. Non-tender and non- distended. No evidence of peritonitis. EXTREMITITES: Trace edema. Objective - Vital Signs Vital signs: Vital Signs Temp 99 F 04/06/19 08:00 Pulse 61 04/06/19 08:00 Resp 18 04/06/19 08:00 BP 155/100 04/06/19 08:00 Pulse Ox 95 04/06/19 08:00 Intake & Output 04/05/19 04/06/19 04/06/19 18:59 06:59 18:59 Intake Total 660 240 Output Total 2150 100 Balance -1490 -100 240 Weight 89.1 kg Intake: Oral 660 240 Output: Urine 150 100 Hemodialysis 2000 Other: # Voids 1 0 - Labs CBC & Chem 7: 04/06/19 07:38 04/06/19 07:38 Labs: Abnormal Lab Results - Last 24 Hours (Table) 04/05/19 04/05/19 04/05/19 Range/Units 11:53 16:18 17:02 WBC (3.8-10.6) k/uL RBC 3.43 L (3.80-5.40) m/uL Hgb 10.6 L (11.4-16.0) gm/dL MCV (80.0-100.0) fL MCHC (31.0-37.0) g/dL RDW 16.5 H (11.5-15.5) % Neutrophils # 9.4 H (1.3-7.7) k/uL Lymphocytes # 0.3 L (1.0-4.8) k/uL Sodium (137-145) mmol/L Potassium (3.5-5.1) mmol/L Chloride (98-107) mmol/L Carbon Dioxide (22-30) mmol/L BUN (7-17) mg/dL Creatinine (0.52-1.04) mg/dL Glucose (74-99) mg/dL POC Glucose (mg/dL) 260 H 256 H (75-99) mg/dL AST (14-36) U/L 04/05/19 04/05/19 04/06/19 Range/Units 17:41 20:52 07:22 WBC (3.8-10.6) k/uL RBC (3.80-5.40) m/uL Hgb (11.4-16.0) gm/dL MCV (80.0-100.0) fL MCHC (31.0-37.0) g/dL RDW (11.5-15.5) % Neutrophils # (1.3-7.7) k/uL Lymphocytes # (1.0-4.8) k/uL Sodium 131 L (137-145) mmol/L Potassium 5.2 H (3.5-5.1) mmol/L Chloride 94 L (98-107) mmol/L Carbon Dioxide (22-30) mmol/L BUN 29 H (7-17) mg/dL Creatinine 4.75 H (0.52-1.04) mg/dL Glucose 253 H (74-99) mg/dL POC Glucose (mg/dL) 268 H 268 H (75-99) mg/dL AST 119 H (14-36) U/L 04/06/19 04/06/19 Range/Units 07:38 07:38 WBC 10.7 H (3.8-10.6) k/uL RBC 3.37 L (3.80-5.40) m/uL Hgb 10.5 L (11.4-16.0) gm/dL MCV 101.3 H (80.0-100.0) fL MCHC 30.8 L (31.0-37.0) g/dL RDW 16.3 H (11.5-15.5) % Neutrophils # (1.3-7.7) k/uL Lymphocytes # (1.0-4.8) k/uL Sodium 132 L (137-145) mmol/L Potassium 5.7 H (3.5-5.1) mmol/L Chloride 96 L (98-107) mmol/L Carbon Dioxide 20 L (22-30) mmol/L BUN 36 H (7-17) mg/dL Creatinine 5.89 H (0.52-1.04) mg/dL Glucose 238 H (74-99) mg/dL POC Glucose (mg/dL) (75-99) mg/dL AST (14-36) U/L Assessment and Plan Plan: Assessment: 1. End-stage renal disease maintained on hemodialysis on Friday schedule. 2. Coronary artery disease status post stenting of the mid LAD and balloon angioplasty of the first obtuse marginal branch off the left circumflex on 04/04/2019. 3. Hypertension with chronic kidney disease. 4. Chronic kidney disease mineral bone disease maintained on PhosLo. 5. Anemia of chronic kidney disease maintained on Aranesp. 6. Hyperkalemia secondary to chronic kidney disease and hyperglycemia. Plan: Hemodialysis tomorrow. I will give 10 units of IV insulin now. 2 A of sodium bicarbonate IV push now. Tight blood sugar control. Repeat potassium level this evening.
--- NOTE | 2019-04-06 11:19 | P.DS ---
Providers Date of admission: 04/02/19 21:05 Expected date of discharge: 04/06/19 Attending physician: Sp Valdez Consults: 04/02/19 21:06 Consult Physician Routine Consulting Provider: Can Frye Consult Reason/Comments: CP, ESRD Do you want consulting provider notified?: Yes Consult Physician Routine Consulting Provider: Cherie Talley Consult Reason/Comments: ESRD Do you want consulting provider notified?: Yes 04/04/19 09:25 Consult Physician Routine Consulting Provider: [facility] Consult Reason/Comments: Post Interventional patient Do you want consulting provider notified?: Already Contacted Primary care physician: Kimberli Gar [facility] Course: This is a 63-year-old obese female patient of Drs. Gar, Mayank Noe with multiple medical problem was known to have end-stage kidney disease on hemodialysis Friday, coronary artery disease and prior coronary artery stenting, diabetes type 2 on insulin pump, dyslipidemia, history of permanent pacemaker, atrial fibrillation. Patient was last admitted in July 2018 which time she was seen for possible TIA and severe hyperkalemia. Patient has been residing at [facility] for subacute rehab due to fracture of the right tibia. Patient states that she was in bed and developed chest pain on the left side. All day she had not been feeling well on Friday and did not go to dialysis treatment. The chest pain started around 2:30 in the afternoon. It felt like a discomfort and she was holding the side of her chest. She also developed pain in the back of her left arm when she stood up. She denies having any shortness of breath but she felt like her breathing was a little heavier than normal. She denies any cough, no fever or chills. She did not have any fever or chills that last night after admission she had sweats through the night and completely saturated her nightgown. Patient was brought into [facility] emergency center and subsequently admitted to the cardiac stepdown unit. She has been seen by cardiology. EKG was atrial fibrillation with a ventricular paced rhythm. Due to elevated troponins, she was ruled in for acute coronary syndrome and scheduled for heart catheterization this afternoon. Patient was placed on a heparin drip and also nitro drip which was to be weaned off. She denies chest pain at the time of this evaluation but states that she did have a brief period of chest pain when she was undergoing echocardiogram today. patient examined bedside complains of extreme weakness and numbness and sleepiness. On evaluation of the vitals, temp is 97.9 pulse 60 respiratory rate 18 blood pressure 134/62 saturating at 94% on room air. Patient's blood sugar ranging from 132 to 260 currently controlled on insulin sliding scale. Patient's insulin pump is on hold. Patient 's norco decreased to every 12 hours as patient has overdosed on norco int he past du to decreased renal clearance 04/06: Patient underwent hemodialysis yesterday and is back on her Friday schedule. She has been seen by nephrology [facility] Cardiology has cleared her for discharge with plan for follow-up with Dr. JAE Jc. Patient has been afebrile, heart rate 59, blood pressure 150/69. Repeat blood work reveals hemoglobin 10.5, WBC 10.7, sodium 132, potassium 5.7, chloride 96, CO2 20, BUN 36 creatinine 5.89. Blood sugars are running on the higher side most likely because insulin was decreased upon her admission. Patient will be resumed on her home dose of insu kali. Patient will be discharged back to [facility] today in stable condition. Discharge diagnoses: 1. Acute non-ST elevated myocardial infarction status post drug acute stenting of LAD and PTCA of OM branch of circumflex. 2. History of coronary artery disease with prior stenting of the LAD. 3. End-stage renal disease on hemodialysis Friday. 4. Hypertension. 5. Hyperlipidemia. 6. Gastroesophageal reflux disease 7. Diabetes mellitus type 2, insulin requiring. 8. Generalized anxiety disorder and recurrent depression. Discharge plan: [facility] Impression and plan of care have been directed as dictated by the signing physician. Emely Contreras nurse practitioner acting as scribe for signing physician. Patient Condition at Discharge: Good Plan - Discharge Summary New Discharge Prescriptions: New Nitroglycerin Sl Tabs [Nitrostat] 0.4 mg SUBLINGUAL Q5M PRN tab PRN Reason: Chest Pain amLODIPine [Norvasc] 2.5 mg PO DAILY tab Clopidogrel [Plavix] 75 mg PO DAILY #0 tab Continue Famotidine [Pepcid] 20 mg PO DAILY@0600 Atorvastatin [Lipitor] 80 mg PO HS@2100 Calcium Acetate [PhosLo] 667 mg PO AC-TID Acetaminophen Tab [Tylenol] 500 mg PO Q6H PRN PRN Reason: Pain Insulin Lispro [humaLOG Kwikpen] See Protocol SQ ACHS Insulin Lispro [humaLOG Kwikpen] 12 unit SQ AC-TID Docusate Sodium [Dok] 100 mg PO BID@0900,2100 Furosemide [Lasix] 20 mg PO BID@0600,1200 busPIRone HCL 5 mg PO BID@0900,2100 Lidocaine-Prilocaine Cream [Emla Cream 2.5%/2.5%] 1 applic TOPICAL MOWEFR PRN PRN Reason: DIALYSIS Levothyroxine Sodium [Synthroid] 175 mcg PO DAILY@0600 Insulin Glargine,Hum.rec.anlog [Basaglar Kwikpen U-100] 50 unit SQ HS Ondansetron [Zofran] 4 mg PO Q6H PRN PRN Reason: Nausea Magnesium Hydroxide [Milk of Magnesia] 2,400 mg PO DAILY PRN PRN Reason: Constipation Bisacodyl [Dulcolax] 10 mg RECTAL HS PRN PRN Reason: Constipation Folic Acid-Vit B Complex-Vit C [Nephrocaps] 1 cap PO MOWEFR@2100 Folic Acid-Vit B Complex-Vit C [Nephrocaps] 1 mg PO SUTUTHSA@0900 Melatonin 10 mg PO HS@2100 Escitalopram [Lexapro] 20 mg PO DAILY@0900 Aspirin EC [Ecotrin Low Dose] 81 mg PO DAILY@0900 LORazepam [Ativan] 1 mg PO DAILY PRN #3 tab PRN Reason: Agitation Or Acute Anxiety Hydrocodone/Acetaminophen [[place] 10-325] 1 tab PO BID #6 tab Discontinued amLODIPine [Norvasc] 5 mg PO DAILY@0900 Na Phos,M-B/Na Phos,Di-Ba [Fleet Adult] 133 ml RECTAL DAILY PRN PRN Reason: Constipation Discharge Medication List Famotidine [Pepcid] 20 mg PO DAILY@0600 04/29/14 [History] Atorvastatin [Lipitor] 80 mg PO HS@2100 12/27/16 [History] Calcium Acetate [PhosLo] 667 mg PO AC-TID 09/02/18 [History] Acetaminophen Tab [Tylenol] 500 mg PO Q6H PRN 01/11/19 [History] Docusate Sodium [Dok] 100 mg PO BID@0900,2100 01/11/19 [History] Furosemide [Lasix] 20 mg PO BID@0600,1200 01/11/19 [History] Insulin Glargine,Hum.rec.anlog [Basaglar Kwikpen U-100] 50 unit SQ HS 01/11/19 [History] Insulin Lispro [humaLOG Kwikpen] 12 unit SQ AC-TID 01/11/19 [History] Insulin Lispro [humaLOG Kwikpen] See Protocol SQ ACHS 01/11/19 [History] Levothyroxine Sodium [Synthroid] 175 mcg PO DAILY@0600 01/11/19 [History] Lidocaine-Prilocaine Cream [Emla Cream 2.5%/2.5%] 1 applic TOPICAL MOWEFR PRN 01/11/19 [History] busPIRone HCL 5 mg PO BID@0900,209901/11/19 [History] Aspirin EC [Ecotrin Low Dose] 81 mg PO DAILY@0900 04/02/19 [History] Bisacodyl [Dulcolax] 10 mg RECTAL HS PRN 04/02/19 [History] Escitalopram [Lexapro] 20 mg PO DAILY@0900 04/02/19 [History] Folic Acid-Vit B Complex-Vit C [Nephrocaps] 1 cap PO MOWEFR@209904/02/19 [History] Folic Acid-Vit B Complex-Vit C [Nephrocaps] 1 mg PO SUTUTHSA@0900 04/02/19 [History] Magnesium Hydroxide [Milk of Magnesia] 2,400 mg PO DAILY PRN 04/02/19 [History] Melatonin 10 mg PO HS@209904/02/19 [History] Ondansetron [Zofran] 4 mg PO Q6H PRN 04/02/19 [History] Clopidogrel [Plavix] 75 mg PO DAILY #0 tab 04/06/19 [Rx] Hydrocodone/Acetaminophen [[place] 10-325] 1 tab PO BID #6 tab 04/06/19 [Rx] LORazepam [Ativan] 1 mg PO DAILY PRN #3 tab 04/06/19 [Rx] Nitroglycerin Sl Tabs [Nitrostat] 0.4 mg SUBLINGUAL Q5M PRN tab 04/06/19 [Rx] amLODIPine [Norvasc] 2.5 mg PO DAILY tab 04/06/19 [Rx] Follow up Appointment(s)/Referral(s): Carmen Jc MD [STAFF PHYSICIAN] - 1 Week Kimberli Gar MD [Primary Care Provider] - 1-2 days Activity/Diet/Wound Care/Special Instructions: [facility] Discharge Disposition: TRANSFER TO SNF/ECF
[2019-04-06 11:58] LABS: Glucose,Whole Blood 259 mg/dL (75-99)
[2019-04-06] MEDS: DEXTROSE 10 % IN WATER 250 ML IV ONE ×2 (13:10→13:29)
[2019-04-06] MEDS: SODIUM BICARB 8.4% 50 ML SYR (1 MEQ/ML) IV STA ×2 (13:11→13:29)
[2019-04-06] MEDS: INSULIN REGULAR 100 UNIT/ML VIAL IV ONE ×2 (13:11→13:28)
--- NOTE | 2019-04-06 14:51 | P.PN ---
Subjective Progress Note Date: 04/06/19 This is a 63-year-old obese female patient of JAE Cordova, Mayank with multiple medical problem was known to have end-stage kidney disease on hemodialysis Friday, coronary artery disease and prior coronary artery stenting, diabetes type 2 on insulin pump, dyslipidemia, history of permanent pacemaker, atrial fibrillation. Patient was last admitted in July 2018 which time she was seen for possible TIA and severe hyperkalemia. Patient has been residing at [facility] for subacute rehab due to fracture of the right tibia. Patient presented to the hospital with symptoms of chest discomfort, she was taken to the cardiac catheterization lab where she underwent stenting of the LAD and PTCA of the OM. The patient was seen and examined this morning, she was complaining of some right shoulder discomfort that worsened on palpation or movement of the shoulder. She denied any chest pain in her breathing is stable. Currently patient is undergoing dialysis. Let pressure 110/70 with a heart rate in the 80s, 95% on room air. Creatinine this morning 7.2. 04/06/2019 Seen and examined this morning, denied any chest pain today, breathing is stable. I pressure 150/90, heart rate in the 60s, 95% on room air. Blood cell count 10.7, hemoglobin 10.5, platelet count 220. Sodium 132, potassium 5.7, BUN 36, creatinine 5.8. Objective - Vital Signs Vital signs: Vital Signs Temp 99 F 04/06/19 08:00 Pulse 61 04/06/19 08:00 Resp 18 04/06/19 08:00 BP 155/100 04/06/19 08:00 Pulse Ox 95 04/06/19 08:00 Intake & Output 04/05/19 04/06/19 04/06/19 18:59 06:59 18:59 Intake Total 660 240 Output Total 2150 100 Balance -1490 -100 240 Weight 89.1 kg Intake: Oral 660 240 Output: Urine 150 100 Hemodialysis 2000 Other: # Voids 1 0 - Exam Gen: This is a 63-year-old obese female. Patient is lying flat in bed and appears to be comfortable. No respiratory distress is noted. HEENT: Head is atraumatic, normocephalic. Pupils equal, round. Sclerae is anicteric. NECK: Supple. No JVD. No lymphadenopathy. No thyromegaly. LUNGS: Clear to auscultation. No wheezes or rhonchi. No intercostal r etractions. HEART: Regular rate and rhythm. Systolic murmur. ABDOMEN: Soft. Bowel sounds are present. No masses. No tenderness. EXTREMITIES: No pedal edema. No calf tenderness. Right groin soft, no evidence of any hematoma. NEUROLOGICAL: Patient is awake, alert and oriented x3. Cranial nerves 2 through 12 are grossly intact. - Labs CBC & Chem 7: 04/06/19 07:38 04/06/19 07:38 Labs: Abnormal Lab Results - Last 24 Hours (Table) 04/05/19 04/05/19 04/05/19 Range/Units 16:18 17:02 17:41 WBC (3.8-10.6) k/uL RBC 3.43 L (3.80-5.40) m/uL Hgb 10.6 L (11.4-16.0) gm/dL MCV (80.0-100.0) fL MCHC (31.0-37.0) g/dL RDW 16.5 H (11.5-15.5) % Neutrophils # 9.4 H (1.3-7.7) k/uL Lymphocytes # 0.3 L (1.0-4.8) k/uL Sodium 131 L (137-145) mmol/L Potassium 5.2 H (3.5-5.1) mmol/L Chloride 94 L (98-107) mmol/L Carbon Dioxide (22-30) mmol/L BUN 29 H (7-17) mg/dL Creatinine 4.75 H (0.52-1.04) mg/dL Glucose 253 H (74-99) mg/dL POC Glucose (mg/dL) 256 H (75-99) mg/dL AST 119 H (14-36) U/L 04/05/19 04/06/19 04/06/19 Range/Units 20:52 07:22 07:38 WBC 10.7 H (3.8-10.6) k/uL RBC 3.37 L (3.80-5.40) m/uL Hgb 10.5 L (11.4-16.0) gm/dL MCV 101.3 H (80.0-100.0) fL MCHC 30.8 L (31.0-37.0) g/dL RDW 16.3 H (11.5-15.5) % Neutrophils # (1.3-7.7) k/uL Lymphocytes # (1.0-4.8) k/uL Sodium (137-145) mmol/L Potassium (3.5-5.1) mmol/L Chloride (98-107) mmol/L Carbon Dioxide (22-30) mmol/L BUN (7-17) mg/dL Creatinine (0.52-1.04) mg/dL Glucose (74-99) mg/dL POC Glucose (mg/dL) 268 H 268 H (75-99) mg/dL AST (14-36) U/L 04/06/19 04/06/19 Range/Units 07:38 11:57 WBC (3.8-10.6) k/uL RBC (3.80-5.40) m/uL Hgb (11.4-16.0) gm/dL MCV (80.0-100.0) fL MCHC (31.0-37.0) g/dL RDW (11.5-15.5) % Neutrophils # (1.3-7.7) k/uL Lymphocytes # (1.0-4.8) k/uL Sodium 132 L (137-145) mmol/L Potassium 5.7 H (3.5-5.1) mmol/L Chloride 96 L (98-107) mmol/L Carbon Dioxide 20 L (22-30) mmol/L BUN 36 H (7-17) mg/dL Creatinine 5.89 H (0.52-1.04) mg/dL Glucose 238 H (74-99) mg/dL POC Glucose (mg/dL) 259 H (75-99) mg/dL AST (14-36) U/L Assessment and Plan Plan: Assessment and Plan: 1. Acute non-ST elevated myocardial infarction. Status post stenting of the L AD, PTCA of the OM branch of the circumflex 2. History of coronary artery disease with prior stenting of the LAD. 3. End-stage renal disease on hemodialysis Friday. Patient missed dialysis treatment on Friday. 4. Hypertension. 5. Hyperlipidemia. 6. Gastroesophageal reflux disease and GI prophylaxis. 7. Diabetes mellitus type 2, insulin requiring. 8. Generalized anxiety disorder and recurrent depression. Plan From cardiology's perspective, patient may be able to be discharged home once cleared by primary. We will make her a follow-up appointment to see Dr. JAE Jc in the office post discharge. DNP note has been reviewed, I agree with a documented findings and plan of care. Patient was seen and examined.
--- NOTE | 2019-04-07 12:39 | CDI ---
Documentation Clarification Form Date: 04/07/19 From: Puja Currie Phone: If you have a question about this query, please contact Madeline Saldaña, Open Developer Operator at [phone] between 8am and 5pm. Admit Date: 04/02/19 Discharge Date: 04/06/19 Patient Name: Ethel Marrufo Visit Number: [id number] ATTENTION: The Clinical Documentation Specialists (CDI) and [facility] Coding Staff appreciate your assistance in clarifying documentation. Please respond to the clarification below the line at the bottom and electronically sign. The CDI & [facility] Coding staff will review the response and follow-up if needed. Please note: Queries are made part of the Legal Health Record. If you have any questions, please contact the author of this message via ITS. Dear Dr.Wayel Valdez, Atrial Fibrillation with ventricular paced rhythm is documented in the H&P consult, 04/05 PN's and DS. History/Risk Factors: CAD w old [place], pacemaker, cardiac stents Clinical Indicators: Acute non-ST [place] s/p stent and balloon angioplasty EKG/telemetry: Ventricular paced rhythm Treatment: no anticoagulants Cardio Consults: The EKG showed underlying what seems to be an underlying atrial fibrillation with ventricular paced rhythm. In your professional opinion, can you please clarify the type of Atrial Fibrillation, if known? Chronic Permanent Paroxysmal Persistent, longstanding Persistent, other Persistent, permanent Other, please specify Unable to determine NO A FIB. SEE DC NOTE MTDD
== END 2019-04-06 14:16 | DRG 246 ==
LOC: EC 19:39 → 3SCARD 21:05
PROVIDERS: ADMIT Internal Medicine; ATTEND Internal Medicine
PROC: 5A1D70Z Performance of Urinary Filtration, Intermittent, Less than 6 Hours Per Day (ICD-10-PCS; 2019-04-03)
PROC: B2111ZZ Fluoroscopy of Multiple Coronary Arteries using Low Osmolar Contrast (ICD-10-PCS; principal; 2019-04-04 07:00)
PROC: 027034Z Dilation of Coronary Artery, One Artery with Drug-eluting Intraluminal Device, Percutaneous Approach (ICD-10-PCS; principal; 2019-04-04 07:00)
PROC: 02703ZZ Dilation of Coronary Artery, One Artery, Percutaneous Approach (ICD-10-PCS; principal; 2019-04-04 07:00)
DX: I21.4 Non-ST elevation (NSTEMI) myocardial infarction (principal); N18.6 End stage renal disease; I12.0 Hypertensive chronic kidney disease with stage 5 chronic kidney disease or end stage renal disease; F33.9 Major depressive disorder, recurrent, unspecified; E87.1 Hypo-osmolality and hyponatremia; D63.1 Anemia in chronic kidney disease; E83.39 Other disorders of phosphorus metabolism; E83.9 Disorder of mineral metabolism, unspecified; E11.22 Type 2 diabetes mellitus with diabetic chronic kidney disease; F03.90 Unspecified dementia, unspecified severity, without behavioral disturbance, psychotic disturbance, mood disturbance, and anxiety; E11.65 Type 2 diabetes mellitus with hyperglycemia; I25.10 Atherosclerotic heart disease of native coronary artery without angina pectoris; E87.5 Hyperkalemia; E78.5 Hyperlipidemia, unspecified; I25.5 Ischemic cardiomyopathy; E55.9 Vitamin D deficiency, unspecified; F41.1 Generalized anxiety disorder; I25.2 Old myocardial infarction; M19.90 Unspecified osteoarthritis, unspecified site; K21.9 Gastro-esophageal reflux disease without esophagitis; E07.9 Disorder of thyroid, unspecified; K59.00 Constipation, unspecified; E66.9 Obesity, unspecified; Z68.31 Body mass index [BMI] 31.0-31.9, adult; Z99.2 Dependence on renal dialysis; Z79.82 Long term (current) use of aspirin; Z79.4 Long term (current) use of insulin; Z79.890 Hormone replacement therapy; Z79.899 Other long term (current) drug therapy; Z71.3 Dietary counseling and surveillance; Z95.5 Presence of coronary angioplasty implant and graft; Z95.0 Presence of cardiac pacemaker; Z86.14 Personal history of Methicillin resistant Staphylococcus aureus infection; Z86.19 Personal history of other infectious and parasitic diseases; Z90.49 Acquired absence of other specified parts of digestive tract; Z90.710 Acquired absence of both cervix and uterus; Z98.84 Bariatric surgery status; Z98.890 Other specified postprocedural states; Z96.41 Presence of insulin pump (external) (internal); Z87.81 Personal history of (healed) traumatic fracture; Z98.42 Cataract extraction status, left eye; Z98.41 Cataract extraction status, right eye; Z96.1 Presence of intraocular lens; Z91.041 Radiographic dye allergy status; Z88.0 Allergy status to penicillin; Z88.8 Allergy status to other drugs, medicaments and biological substances; Z91.048 Other nonmedicinal substance allergy status; Z83.3 Family history of diabetes mellitus; Z82.49 Family history of ischemic heart disease and other diseases of the circulatory system; Z83.49 Family history of other endocrine, nutritional and metabolic diseases; Z84.1 Family history of disorders of kidney and ureter
CPT/HCPCS: 36415; 71046; 80048; 80053; 82565; 83735; 83880; 84100; 84484; 85025; 85027; 85610; 85730; 86707; 87340; 90935; 92920; 93005; 93306; 93458; 96365; 96368; 96376; 99291; C1874

== ENCOUNTER 2019-04-09 13:07 | Inpatient (IN) | payer MEDICARE, BC, OTHER ==
[2019-04-09] MEDS ORDERED: ASPIRIN 81 MG PO STA (13:28)
[2019-04-09] MEDS ORDERED: NITROGLYCERIN OINT 1 INCH/GM PACKET TOPICAL STA (13:28)
--- NOTE | 2019-04-09 13:35 | ED ---
General Adult HPI - General Chief complaint: Chest Pain Stated complaint: Chest pain Time Seen by Provider: 04/09/19 13:10 Source: patient, EMS, RN notes reviewed Mode of arrival: ambulatory Limitations: no limitations - History of Present Illness Initial comments: Patient is a pleasant 63-year-old female presenting to the emergency Department with chest discomfort. Patient is somewhat a poor historian. Patient complains of headache under her left breast. Patient does have history of similar symptoms previously associated with previous heart problems. Patient did have stent done just a week ago and further procedure is being considered. No as sociated dyspnea, nausea, or diaphoresis. No radiation. Patient denies any leg pain. No fever. - Related Data Home Medications Medication Instructions Recorded Confirmed Famotidine [Pepcid] 20 mg PO DAILY@0600 04/29/14 04/02/19 Atorvastatin [Lipitor] 80 mg PO HS@2100 12/27/16 04/02/19 Calcium Acetate [PhosLo] 667 mg PO AC-TID 09/02/18 04/02/19 Acetaminophen Tab [Tylenol] 500 mg PO Q6H PRN 01/11/19 04/02/19 Docusate Sodium [Dok] 100 mg PO BID@0900,2100 01/11/19 04/02/19 Furosemide [Lasix] 20 mg PO BID@0600,1200 01/11/19 04/02/19 Insulin Glargine,Hum.rec.anlog 50 unit SQ HS 01/11/19 04/02/19 [Basaglar Kwikpen U-100] Insulin Lispro [humaLOG Kwikpen] 12 unit SQ AC-TID 01/11/19 04/02/19 Insulin Lispro [humaLOG Kwikpen] See Protocol SQ ACHS 01/11/19 04/02/19 Levothyroxine Sodium [Synthroid] 175 mcg PO DAILY@0600 01/11/19 04/02/19 Lidocaine-Prilocaine Cream [Emla 1 applic TOPICAL MOWEFR PRN 01/11/19 04/02/19 Cream 2.5%/2.5%] busPIRone HCL 5 mg PO BID@0900,2100 01/11/19 04/02/19 Aspirin EC [Ecotrin Low Dose] 81 mg PO DAILY@0900 04/02/19 04/02/19 Bisacodyl [Dulcolax] 10 mg RECTAL HS PRN 04/02/19 04/02/19 Escitalopram [Lexapro] 20 mg PO DAILY@0900 04/02/19 04/02/19 Folic Acid-Vit B Complex-Vit C 1 cap PO MOWEFR@209904/02/19 04/02/19 [Nephrocaps] Folic Acid-Vit B Complex-Vit C 1 mg PO SUTUTHSA@0900 04/02/19 04/02/19 [Nephrocaps] Magnesium Hydroxide [Milk of 2,400 mg PO DAILY PRN 04/02/19 04/02/19 Magnesia] Melatonin 10 mg PO HS@209904/02/19 04/02/19 Ondansetron [Zofran] 4 mg PO Q6H PRN 04/02/19 04/02/19 Previous Rx's Medication Instructions Recorded Clopidogrel [Plavix] 75 mg PO DAILY #0 tab 04/06/19 Hydrocodone/Acetaminophen [[place] 1 tab PO BID #6 tab 04/06/19 10-325] LORazepam [Ativan] 1 mg PO DAILY PRN #3 tab 04/06/19 Nitroglycerin Sl Tabs [Nitrostat] 0.4 mg SUBLINGUAL Q5M PRN tab 04/06/19 amLODIPine [Norvasc] 2.5 mg PO DAILY tab 04/06/19 Allergies Allergy/AdvReac Type Severity Reaction Status Date / Time adhesive Allergy Rash/Hives Verified 04/09/19 13:21 Penicillins Allergy Rash/Hives Verified 04/09/19 13:21 Iodinated Contrast Media AdvReac KIDNEY Verified 04/09/19 13:21 [Iodinated Contrast- Oral FAILURE and IV Dye] metformin AdvReac SUGAR Verified 04/09/19 13:21 LEVEL INCREASE Review of Systems ROS Statement: Those systems with pertinent positive or pertinent negative responses have been documented in the HPI. ROS Other: All systems not noted in ROS Statement are negative. Constitutional: Denies: fever Eyes: Denies: eye pain ENT: Denies: ear pain Respiratory: Denies: cough, dyspnea Cardiovascular: Reports: chest pain. Denies: palpitations Endocrine: Denies: fatigue Gastrointestinal: Denies: abdominal pain Genitourinary: Denies: dysuria Musculoskeletal: Denies: back pain Skin: Denies: rash Neurological: Denies: weakness Past Medical History Past Medical History: Coronary Artery Disease (CAD), Chest Pain / Angina, Dementia, Diabetes Mellitus, Dialysis, Hyperlipidemia, Hypertension, Liver Disease, Myocardial Infarction (NC), Osteoarthritis (OA), Thyroid Disorder Additional Past Medical History / Comment(s): multiple NC's. ischemic cardiomyopathy. 12/29/15 STRESS WNL, ALLERGIC rhinitis,NC, CARDIO-PULMONARY ARREST 07/05/14 vertigo, hypertensive nephrosclerosis, Hepatitis A,Vitamin D deficiency, constipation, hx of a cat bit Last Myocardial Infarction Date:: 09/2013 History of Any Multi-Drug Resistant Organisms: MRSA, VRE Date of last positivie culture/infection: 11/11/18-VRE; 09/27/17 MRSA MDRO Source:: Urine-VRE; Right Breast-MRSA Past Surgical History: Adenoidectomy, Appendectomy, Cholecystectomy, Heart Catheterization With Stent, Hysterectomy, Tonsillectomy Additional Past Surgical History / Comment(s): mary cataracts, LAP-BAND 2004, Laparoscopic cholecystectomy, FIBULA FX has metal pins in place,Left shoulder surgery, Hemodialysis Cataract bilateral with IOL, fistula and sx to" reroute it",gets dialysis fri-fri-fri. has insulin pump. no bp on left, excisional debreidment rt lower ext. Past Anesthesia/Blood Transfusion Reactions: Motion Sickness, Postoperative Nausea & Vomiting (PONV) Additional Past Anesthesia/Blood Transfusion Reaction / Comment(s): blood transfusion-pt stated they gave her medication for a reaction but does'nt rememebr what the reaction was Date of Last Stent Placement:: 2014 Past Psychological History: Anxiety, Bipolar, Depression Smoking Status: Never smoker Past Alcohol Use History: None Reported Past Drug Use History: None Reported - Past Family History Mother Family Medical History: Congestive Heart Failure (CHF), Diabetes Mellitus, Hypertension Father History Unknown: Yes Family Medical History: Diabetes Mellitus Brother(s) Family Medical History: Diabetes Mellitus, Hyperlipidemia Additional Family Medical History / Comment(s): Hypertension chronic kidney disease General Exam Limitations: no limitations General appearance: alert, in no apparent distress Head exam: Present: normocephalic Eye exam: Present: normal appearance, PERRL ENT exam: Present: normal oropharynx Neck exam: Present: normal inspection Respiratory exam: Present: normal lung sounds bilaterally. Absent: chest wall tenderness Cardiovascular Exam: Present: regular rate, normal rhythm Expanded Peripheral pulses: 2+: Radial (R), Radial (L), Posterior Tibialis (R), Posterior Tibialis (L), Dorsalis Pedis (R), Dorsalis Pedis (L) GI/Abdominal exam: Present: soft. Absent: tenderness Extremities exam: Present: pedal edema (S1 bilateral). Absent: calf tenderness Neurological exam: Present: alert Psychiatric exam: Present: normal affect, normal mood Skin exam: Present: normal color Course Vital Signs 04/09/19 04/09/19 13:12 15:03 Temperature 98.2 F Pulse Rate 65 60 Respiratory 22 20 Rate Blood Pressure 129/56 115/57 O2 Sat by Pulse 97 100 Oximetry EKG Findings - EKG Comments: EKG Findings:: Undetermined rhythm with a rate of 64. QRS 174. QTC 550. QTC 57. Normal axis. Right bundle branch block. Nonspecific T waves. No acute ST elevation. Medical Decision Making - Medical Decision Making Patient reevaluated and updated. Case discussed with Dr. Roque, who will admit covering for Dr. Gar. - Lab Data Result diagrams: 04/09/19 13:45 04/09/19 13:45 Lab Results 04/09/19 04/09/19 04/09/19 Range/Units 13:45 13:45 13:45 WBC 7.8 (3.8-10.6) k/uL RBC 3.47 L (3.80-5.40) m/uL Hgb 10.9 L (11.4-16.0) gm/dL Hct 33.7 L (34.0-46.0) % MCV 97.0 (80.0-100.0) fL MCH 31.3 (25.0-35.0) pg MCHC 32.2 (31.0-37.0) g/dL RDW 17.2 H (11.5-15.5) % Plt Count 276 (150-450) k/uL Neutrophils % 80 % Lymphocytes % 7 % Monocytes % 7 % Eosinophils % 3 % Basophils % 1 % Neutrophils # 6.2 (1.3-7.7) k/uL Lymphocytes # 0.5 L (1.0-4.8) k/uL Monocytes # 0.5 (0-1.0) k/uL Eosinophils # 0.3 (0-0.7) k/uL Basophils # 0.1 (0-0.2) k/uL Hypochromasia Slight Anisocytosis Slight Macrocytosis Slight PT 10.5 (9.0-12.0) sec INR 1.0 (<1.2) APTT 35.2 H (22.0-30.0) sec Sodium 137 (137-145) mmol/L Potassium 3.7 (3.5-5.1) mmol/L Chloride 94 L (98-107) mmol/L Carbon Dioxide 28 (22-30) mmol/L Anion Gap 15 mmol/L BUN 26 H (7-17) mg/dL Creatinine 4.43 H (0.52-1.04) mg/dL Est GFR (CKD-EPI)AfAm 11 (>60 ml/min/1.73 sqM) Est GFR (CKD-EPI)NonAf 10 (>60 ml/min/1.73 sqM) Glucose 73 L (74-99) mg/dL Calcium 9.3 (8.4-10.2) mg/dL Magnesium 2.2 (1.6-2.3) mg/dL Total Bilirubin 0.9 (0.2-1.3) mg/dL AST 216 H (14-36) U/L ALT 227 H (4-34) U/L Alkaline Phosphatase 123 (38-126) U/L Troponin I (0.000-0.034) ng/mL Total Protein 7.0 (6.3-8.2) g/dL Albumin 3.7 (3.5-5.0) g/dL 04/09/19 Range/Units 13:45 WBC (3.8-10.6) k/uL RBC (3.80-5.40) m/uL Hgb (11.4-16.0) gm/dL Hct (34.0-46.0) % MCV (80.0-100.0) fL MCH (25.0-35.0) pg MCHC (31.0-37.0) g/dL RDW (11.5-15.5) % Plt Count (150-450) k/uL Neutrophils % % Lymphocytes % % Monocytes % % Eosinophils % % Basophils % % Neutrophils # (1.3-7.7) k/uL Lymphocytes # (1.0-4.8) k/uL Monocytes # (0-1.0) k/uL Eosinophils # (0-0.7) k/uL Basophils # (0-0.2) k/uL Hypochromasia Anisocytosis Macrocytosis PT (9.0-12.0) sec INR (<1.2) APTT (22.0-30.0) sec Sodium (137-145) mmol/L Potassium (3.5-5.1) mmol/L Chloride (98-107) mmol/L Carbon Dioxide (22-30) mmol/L Anion Gap mmol/L BUN (7-17) mg/dL Creatinine (0.52-1.04) mg/dL Est GFR (CKD-EPI)AfAm (>60 ml/min/1.73 sqM) Est GFR (CKD-EPI)NonAf (>60 ml/min/1.73 sqM) Glucose (74-99) mg/dL Calcium (8.4-10.2) mg/dL Magnesium (1.6-2.3) mg/dL Total Bilirubin (0.2-1.3) mg/dL AST (14-36) U/L ALT (4-34) U/L Alkaline Phosphatase (38-126) U/L Troponin I 15.800 H* (0.000-0.034) ng/mL Total Protein (6.3-8.2) g/dL Albumin (3.5-5.0) g/dL - Radiology Data Radiology results: image reviewed (Chest x-ray shows limited inspiration, possible chronic venous congestion or interstitial pneumonitis.) Critical Care Time Critical Care Time: Yes Total Critical Care Time: 31 Disposition Clinical Impression: Acute non-ST elevation myocardial infarction (NSTEMI) Disposition: ADMITTED IP TO THIS HOSP Is patient prescribed a controlled substance at d/c from ED?: No Referrals: Kimberli Gar MD [Primary Care Provider] - 1-2 days Decision Time: 15:36
--- NOTE | 2019-04-09 14:09 | XR ---
EXAMINATION TYPE: XR chest 2V DATE OF EXAM: 04/09/2019 COMPARISON: 04/02/2019 TECHNIQUE: PA and lateral views submitted. HISTORY: Chest pain FINDINGS: Cardiac device is seen and there is limited inspiration. Mild central interstitial prominence. Heart size stable. Hypertrophic change of the spine. No pneumothorax. IMPRESSION: 1. Limited inspiration demonstrates a coarsened stable interstitium be associated with chronic venous congestion or interstitial pneumonitis. Correlate clinically
[2019-04-09 14:14] LABS: Anisocytosis Slight; Basophils # (A) 0.1 k/uL (0-0.2); Basophils % (A) 1 %; Eosinophils # (A) 0.3 k/uL (0-0.7); Eosinophils % (A) 3 %; HCT 33.7 % (34.0-46.0); HGB 10.9 gm/dL (11.4-16.0); Hypochromasia Slight; Lymphocytes # (A) 0.5 k/uL (1.0-4.8); Lymphocytes % (A) 7 %; MCH 31.3 pg (25.0-35.0); MCHC 32.2 g/dL (31.0-37.0); Macrocytosis Slight; Mean Platelet Volume 8.1; Monocytes # (A) 0.5 k/uL (0-1.0); Monocytes % (A) 7 %; Neutrophils # (A) 6.2 k/uL (1.3-7.7); Neutrophils % (A) 80 %; Platelet Count 276 k/uL (150-450); RBC 3.47 m/uL (3.80-5.40); RDW 17.2 % (11.5-15.5); WBC 7.8 k/uL (3.8-10.6)
[2019-04-09 14:27] LABS: Albumin 3.7 g/dL (3.5-5.0); Calcium 9.3 mg/dL (8.4-10.2); Magnesium 2.2 mg/dL (1.6-2.3); Potassium 3.7 mmol/L (3.5-5.1); Total Bilirubin 0.9 mg/dL (0.2-1.3)
[2019-04-09 14:37] LABS: Partial Thromboplastin Time 35.2 sec (22.0-30.0); Prothrombin Time 10.5 sec (9.0-12.0)
[2019-04-09] MEDS ORDERED: HEPARIN SODIUM,PORCINE 5,000 UNIT/ML 1 ML VIAL IV PRN (15:10)
[2019-04-09] MEDS ORDERED: HEPARIN SODIUM,PORCINE 5,000 UNIT/ML 1 ML VIAL IV ONE (15:10)
[2019-04-09] MEDS: HEPARIN SOD,PORK IN 0.45% NACL 25,000 UNIT in 0.45% NACL 1 250ML.BAG IV SCH (15:24)
[2019-04-09] MEDS ORDERED: NITROGLYCERIN SL TABS 0.4 MG TAB SUBLINGUAL PRN (15:43)
[2019-04-09 19:03] LABS: Glucose,Whole Blood 49 mg/dL (75-99)
[2019-04-09 19:22] LABS: Glucose,Whole Blood 64 mg/dL (75-99)
[2019-04-09 19:43] LABS: Glucose,Whole Blood 149 mg/dL (75-99)
[2019-04-09] MEDS ORDERED: ACETAMINOPHEN TAB 500 MG TAB PO PRN (22:02)
[2019-04-09] MEDS: NITROGLYCERIN OINT 1 INCH/GM PACKET TOPICAL SCH (22:45)
[2019-04-09] MEDS: HYDROcodone/APAP 10-325MG 1 EACH TAB PO PRN (22:57)
[2019-04-10] MEDS: NITROGLYCERIN OINT 1 INCH/GM PACKET TOPICAL SCH ×4 (01:08→17:47)
[2019-04-10 03:40] LABS: Anisocytosis Slight; Basophils % (A) 1 %; Eosinophils # (A) 0.3 k/uL (0-0.7); Eosinophils % (A) 5 %; HCT 32.9 % (34.0-46.0); HGB 10.4 gm/dL (11.4-16.0); Hypochromasia Moderate; Lymphocytes % (A) 15 %; MCH 31.2 pg (25.0-35.0); MCHC 31.6 g/dL (31.0-37.0); MCV 98.6 fL (80.0-100.0); Macrocytosis Slight; Mean Platelet Volume 8.5; Monocytes # (A) 0.5 k/uL (0-1.0); Monocytes % (A) 8 %; Neutrophils # (A) 4.6 k/uL (1.3-7.7); Neutrophils % (A) 70 %; Platelet Count 254 k/uL (150-450); RBC 3.33 m/uL (3.80-5.40); RDW 16.6 % (11.5-15.5); WBC 6.7 k/uL (3.8-10.6)
[2019-04-10 04:28] LABS: Cholesterol 103 mg/dL (<200); HDL Cholesterol 40 mg/dL (40-60); LDL Cholesterol,Calculated 41 mg/dL (0-99); Triglycerides 111 mg/dL (<150)
[2019-04-10 06:08] LABS: Glucose,Whole Blood 246 mg/dL (75-99)
[2019-04-10] MEDS: LEVOTHYROXINE 75 MCG TAB PO SCH (06:11)
[2019-04-10] MEDS: FUROSEMIDE 20 MG TAB PO SCH ×2 (06:11→15:22)
[2019-04-10] MEDS: CALCIUM ACETATE 667 MG TAB PO SCH ×3 (06:11→17:47)
[2019-04-10] MEDS: LEVOTHYROXINE 100 MCG TAB PO SCH (06:11)
[2019-04-10] MEDS: INSULIN ASPART (NovoLOG) 100 UNIT/ML VIAL SQ SCH ×3 (06:28→17:47)
[2019-04-10] MEDS: DOCUSATE 100 MG CAP PO SCH ×2 (08:47→21:59)
[2019-04-10] MEDS: busPIRone HCl 5 MG TAB PO SCH ×2 (08:52→21:59)
[2019-04-10] MEDS: ESCITALOPRAM 20 MG TAB PO SCH (08:52)
[2019-04-10] MEDS: amLODIPine 2.5 MG TAB PO SCH (08:52)
[2019-04-10] MEDS ORDERED: ASPIRIN 325 MG TAB PO SCH (09:00)
[2019-04-10] MEDS ORDERED: MAGNESIUM HYDROXIDE 2,400 MG/10 ML CUP PO PRN (13:18)
[2019-04-10] MEDS ORDERED: BISACODYL 10 MG SUPP RECTAL PRN (13:18)
[2019-04-10] MEDS ORDERED: LIDOCAINE-PRILOCAINE 2.5-2.5% CREAM 5 GM TUBE TOPICAL PRN (13:18)
--- NOTE | 2019-04-10 13:26 | P.HPIM ---
History of Present Illness H&P Date: 04/10/19 This is a 63-year-old obese female patient of JAE Cordova, Mayank with multiple medical problem was known to have end-stage kidney disease on hemodialysis Friday, coronary artery disease and prior coronary artery stenting, diabetes type 2 on insulin pump, dyslipidemia, history of permanent pacemaker, atrial fibrillation. Patient was last admitted in July 2018 which time she was seen for possible TIA and severe hyperkalemia and has been residing at [facility] for subacute rehab due to fracture of the right tibia. Patient was recently admitted for chest pain and underwent cardiac cath on 04/04/2019 where stenting of the LAD and PTCA of the OM branch was done. Patient was discharged on 04/06/19 and comes back yesterday with complaints of chest pain. EKG was done that suggested an undetermined rhythm with widened QRS nonspecific T waves but no active ST elevation was noted that suggested a hemoglobin of 10.4 troponin elevated at 13.4 hemoglobin of 10.4. Patient was admitted for chest pain and evaluation with cardiology continue heparin drip until seen by cardiology keep patient nothing by mouth Review of Systems Constitutional: Denies chills, Denies fever, Denies lethargy, Denies malaise, Denies poor appetite, Denies weakness, Denies weight loss Eyes: denies decreased vision, denies diplopia, denies discharge, denies pain Ears: deny: decreased hearing Ears, nose, mouth and throat: Denies dental pain, Denies headache, Denies nasal discharge, Denies nose pain Cardiovascular: endorses chest pain under breast , Denies decreased exercise tolerance, Denies edema, Denies high blood pressure, Denies irregular heart beat, Denies palpitations, Denies paroxysmal nocturnal dyspnea, Denies rapid h eart beat, Denies shortness of breath Respiratory: Denies congestion, Denies cough, Denies cough with sputum, Denies dyspnea, Denies home oxygen, Denies wheezing Gastrointestinal: Denies abdominal pain, Denies change in bowel habits, Denies coffee ground emesis, Denies early satiety, Denies excessive gas, Denies heartburn, Denies hematemesis, Denies hematochezia, Denies loss of appetite, Denies nausea, Denies vomiting Genitourinary: Denies dysuria, Denies flank pain, Denies kidney stones, Denies menorrhagia, Denies urgency, Denies urinary frequency Musculoskeletal: Endorses gait dysfunction, Denies limitation of motion, Denies morning stiffness, Denies muscle cramps Integumentary: Denies rash, Denies wounds, Denies brittle nails, Denies change in hair/nails, Denies darkening of skin Neurological: Endorses balance difficulties, Denies change in speech, Denies double vision, Denies gait dysfunction, Denies loss of vision, Denies motor dis turbance, Denies numbness, Denies paralysis, Denies paresthesias, Denies seizures Psychiatric: Denies anxiety, Denies depression Endocrine: Denies excessive sweating, Denies excessive thirst, Denies high blood sugars, Denies palpitations Hematologic/Lymphatic: Denies easy bruising, Denies lymphadenopathy Past Medical History Past Medical History: Coronary Artery Disease (CAD), Chest Pain / Angina, Dementia, Diabetes Mellitus, Dialysis, Hyperlipidemia, Hypertension, Liver Disease, Myocardial Infarction (MD), Osteoarthritis (OA), Thyroid Disorder Additional Past Medical History / Comment(s): multiple MD's x18. ischemic cardiomyopathy. 12/29/15 STRESS WNL, ALLERGIC rhinitis,MD, CARDIO-PULMONARY ARREST 07/05/14 vertigo, hypertensive nephrosclerosis, Hepatitis A,Vitamin D deficiency, constipation, hx of a cat bit, fall with broken pelvis Last Myocardial Infarction Date:: 09/2013 History of Any Multi-Drug Resistant Organisms: MRSA, VRE Date of last positivie culture/infection: 11/11/18-VRE; 09/27/17 MRSA MDRO Source:: Urine-VRE; Right Breast-MRSA Past Surgical History: Adenoidectomy, Appendectomy, Cholecystectomy, Heart Catheterization With Stent, Hysterectomy, Tonsillectomy Additional Past Surgical History / Comment(s): mary cataracts, LAP-BAND 2004, Laparoscopic cholecystectomy, FIBULA FX has metal pins in place,Left shoulder surgery, Hemodialysis Cataract bilateral with IOL, fistula and sx to" reroute it",gets dialysis fri-fri-fri. has insulin pump. no bp on left, excisional debreidment rt lower ext., foot surgery Past Anesthesia/Blood Transfusion Reactions: Motion Sickness, Postoperative Nausea & Vomiting (PONV) Additional Past Anesthesia/Blood Transfusion Reaction / Comment(s): blood transfusion-pt stated they gave her medication for a reaction but does'nt rememebr what the reaction was Date of Last Stent Placement:: 2014 Past Psychological History: Anxiety, Bipolar, Depression Additional Psychological History / Comment(s): pt. lives alone in apartment, uses walker for ambulation and has a wheelchair for longer distances, pt. no longer drives and takes city transport or has friends take her to appts. pt. has glucose reader, power w/c, shower chair, railing in br, walker and insulin pump. Smoking Status: Never smoker Past Alcohol Use History: None Reported Additional Past Alcohol Use History / Comment(s): Patient living in an apartment. She has a walker in the home and motorized wheelchair. She does not drive. She has a glucometer and insulin pump. She is a lifelong nonsmoker. She denies any alcohol use. No service. No international travel. She has a pet cat. Past Drug Use History: None Reported - Past Family History Mother Family Medical History: Congestive Heart Failure (CHF), Diabetes Mellitus, Hypertension Father History Unknown: Yes Family Medical History: Diabetes Mellitus Brother(s) Family Medical History: Diabetes Mellitus, Hyperlipidemia Additional Family Medical History / Comment(s): Hypertension chronic kidney dise ase Medications and Allergies Home Medications Medication Instructions Recorded Confirmed Type Famotidine [Pepcid] 20 mg PO DAILY@0600 04/29/14 04/09/19 History Atorvastatin [Lipitor] 80 mg PO HS@2100 12/27/16 04/09/19 History Calcium Acetate [PhosLo] 667 mg PO AC-TID 09/02/18 04/09/19 History Acetaminophen Tab [Tylenol] 500 mg PO Q6H PRN 01/11/19 04/09/19 History Docusate Sodium [Dok] 100 mg PO BID@0900,2100 01/11/19 04/09/19 History Furosemide [Lasix] 20 mg PO BID@0600,1200 01/11/19 04/09/19 History Insulin Glargine,Hum.rec.anlog 50 unit SQ HS@209901/11/19 04/09/19 History [Basaglar Kwikpen U-100] Insulin Lispro [humaLOG Kwikpen] 12 unit SQ AC-TID 01/11/19 04/09/19 History Insulin Lispro [humaLOG Kwikpen] See Protocol SQ ACHS 01/11/19 04/09/19 History Levothyroxine Sodium [Synthroid] 175 mcg PO DAILY@0600 01/11/19 04/09/19 History Lidocaine-Prilocaine Cream [Emla 1 applic TOPICAL MOWEFR PRN 01/11/19 04/09/19 History Cream 2.5%/2.5%] busPIRone HCL 5 mg PO BID@0900,209901/11/19 04/09/19 History Aspirin EC [Ecotrin Low Dose] 81 mg PO DAILY@0904/02/19 04/09/19 History Bisacodyl [Dulcolax] 10 mg RECTAL HS PRN 04/02/19 04/09/19 History Escitalopram [Lexapro] 20 mg PO DAILY@89904/02/19 04/09/19 History Folic Acid-Vit B Complex-Vit C 1 cap PO MOWEFR@209904/02/19 04/09/19 History [Nephrocaps] Folic Acid-Vit B Complex-Vit C 1 mg PO SUTUTHSA@89904/02/19 04/09/19 History [Nephrocaps] Magnesium Hydroxide [Milk of 2,400 mg PO DAILY PRN 04/02/19 04/09/19 History Magnesia] Melatonin 10 mg PO HS@209904/02/19 04/09/19 History Ondansetron [Zofran] 4 mg PO Q6H PRN 04/02/19 04/09/19 History LORazepam [Ativan] 1 mg PO DAILY PRN #3 tab 04/06/19 04/09/19 Rx Nitroglycerin Sl Tabs [Nitrostat] 0.4 mg SUBLINGUAL Q5M PRN tab 04/06/19 04/09/19 Rx Clopidogrel [Plavix] 75 mg PO DAILY@89904/09/19 04/09/19 History Hydrocodone/Acetaminophen [[place] 1 tab PO BID PRN 04/09/19 04/09/19 History 10-325] Na Phos,M-B/Na Phos,Di-Ba [[place] 133 ml RECTAL ONCE PRN 04/09/19 04/09/19 History Adult] amLODIPine [Norvasc] 2.5 mg PO DAILY@0900 04/09/19 04/09/19 History Allergies Allergy/AdvReac Type Severity Reaction Status Date / Time adhesive Allergy Rash/Hives Verified 04/09/19 16:09 Penicillins Allergy Rash/Hives Verified 04/09/19 16:09 Iodinated Contrast Media AdvReac KIDNEY Verified 04/09/19 16:09 [Iodinated Contrast- Oral FAILURE and IV Dye] metformin AdvReac SUGAR Verified 04/09/19 16:09 LEVEL INCREASE Physical Exam Vitals: Vital Signs Temp Pulse Pulse Resp BP BP Pulse Ox 04/10/19 08:57 60 04/10/19 07:50 60 16 107/57 99 04/10/19 03:29 98 F 61 16 113/61 100 04/09/19 23:56 98 F 62 18 93/65 95 04/09/19 20:00 98.1 F 59 L 16 96/48 96 04/09/19 18:31 97.1 F L 59 L 18 111/51 100 04/09/19 17:31 98.2 F 66 20 132/64 98 04/09/19 15:03 60 20 115/57 100 04/09/19 13:12 98.2 F 65 22 129/56 97 Intake and Output 04/09/19 04/10/19 04/10/19 22:59 06:59 14:59 Intake Total 63.5 42.583 Balance 63.5 42.583 Intake: Intake, IV Titration 63.5 42.583 Amount Heparin Sod,Pork in 0.45% 63.5 42.583 NaCl 25,000 unit In 0.45 % NaCl 1 250ml.bag @ 10. 204 UNITS/KG/HR 10 mls/hr IV .Q24H [facility] Rx#: [id number] Other: # Voids 0 Weight 98 kg - Constitutional General appearance: cooperative, no acute distress, obese - EENT Eyes: anicteric sclerae, PERRLA, normal appearance ENT: hearing grossly normal - Neck Neck: no lymphadenopathy, normal ROM, no other, no rigidity, no stridor, no thyromegaly - Respiratory Respiratory: bilateral: CTA, negative: diminished, dullness, rales, rhonchi - Cardiovascular Rhythm: regular Heart sounds: normal: S1, S2 Abnormal Heart Sounds: 3 x 6 systolic murmur, no diastolic murmur, no rub, no S3 Gallop, no S4 Gallop, no click, no other - Gastrointestinal General gastrointestinal: normal bowel sounds, soft and nontender - Integumentary Integumentary: no rash - Neurologic Neurologic: CNII-XII intact - Musculoskeletal Musculoskeletal: Gait not assessed, strength equal bilaterally - Psychiatric Psychiatric: A&O x's 3, appropriate affect Results CBC & Chem 7: 04/10/19 03:10 04/09/19 13:45 Labs: Abnormal Lab Results - Last 24 Hours (Table) 04/09/19 04/09/19 04/09/19 Range/Units 13:45 13:45 13:45 RBC 3.47 L (3.80-5.40) m/uL Hgb 10.9 L (11.4-16.0) gm/dL Hct 33.7 L (34.0-46.0) % RDW 17.2 H (11.5-15.5) % Lymphocytes # 0.5 L (1.0-4.8) k/uL APTT 35.2 H (22.0-30.0) sec Chloride 94 L (98-107) mmol/L BUN 26 H (7-17) mg/dL Creatinine 4.43 H (0.52-1.04) mg/dL Glucose 73 L (74-99) mg/dL POC Glucose (mg/dL) (75-99) mg/dL AST 216 H (14-36) U/L ALT 227 H (4-34) U/L Troponin I (0.000-0.034) ng/mL 04/09/19 04/09/19 04/09/19 Range/Units 13:45 18:53 19:21 RBC (3.80-5.40) m/uL Hgb (11.4-16.0) gm/dL Hct (34.0-46.0) % RDW (11.5-15.5) % Lymphocytes # (1.0-4.8) k/uL APTT (22.0-30.0) sec Chloride (98-107) mmol/L BUN (7-17) mg/dL Creatinine (0.52-1.04) mg/dL Glucose (74-99) mg/dL POC Glucose (mg/dL) 49 L 64 L (75-99) mg/dL AST (14-36) U/L ALT (4-34) U/L Troponin I 15.800 H* (0.000-0.034) ng/mL 04/09/19 04/09/19 04/09/19 Range/Units 19:42 20:40 20:40 RBC (3.80-5.40) m/uL Hgb (11.4-16.0) gm/dL Hct (34.0-46.0) % RDW (11.5-15.5) % Lymphocytes # (1.0-4.8) k/uL APTT 133.9 H* (22.0-30.0) sec Chloride (98-107) mmol/L BUN (7-17) mg/dL Creatinine (0.52-1.04) mg/dL Glucose (74-99) mg/dL POC Glucose (mg/dL) 149 H (75-99) mg/dL AST (14-36) U/L ALT (4-34) U/L Troponin I 14.900 H* (0.000-0.034) ng/mL 04/10/19 04/10/19 04/10/19 Range/Units 01:52 03:10 03:10 RBC 3.33 L (3.80-5.40) m/uL Hgb 10.4 L (11.4-16.0) gm/dL Hct 32.9 L (34.0-46.0) % RDW 16.6 H (11.5-15.5) % Lymphocytes # (1.0-4.8) k/uL APTT >200.0 H* (22.0-30.0) sec Chloride (98-107) mmol/L BUN (7-17) mg/dL Creatinine (0.52-1.04) mg/dL Glucose (74-99) mg/dL POC Glucose (mg/dL) (75-99) mg/dL AST (14-36) U/L ALT (4-34) U/L Troponin I 13.400 H* (0.000-0.034) ng/mL 04/10/19 Range/Units 06:06 RBC (3.80-5.40) m/uL Hgb (11.4-16.0) gm/dL Hct (34.0-46.0) % RDW (11.5-15.5) % Lymphocytes # (1.0-4.8) k/uL APTT (22.0-30.0) sec Chloride (98-107) mmol/L BUN (7-17) mg/dL Creatinine (0.52-1.04) mg/dL Glucose (74-99) mg/dL POC Glucose (mg/dL) 246 H (75-99) mg/dL AST (14-36) U/L ALT (4-34) U/L Troponin I (0.000-0.034) ng/mL Thrombosis Risk Factor Assmnt - DVT/VTE Prophylaxis DVT/VTE Prophylaxis: Pharmacologic Prophylaxis ordered - Choose All That Apply Each Factor Represents 1 point: Swollen legs (current) Each Risk Factor Represents 2 Points: Age 61-74 years Thrombosis Risk Factor Assessment Total Risk Factor Score: 3 Thrombosis Risk Factor Assessment Level: Moderate Risk Assessment and Plan Plan: 1. Acute substernal chest pain with recent Acute non-ST elevated myocardial infarction status post drug acute stenting of LAD and PTCA of OM branch of ci rcumflex. Currently on heparin drip cardiology consult troponin elevation likely secondary to recent cardiac catheterization. Continue aspirin, Plavix, amlodipine. Patient is not on a beta uri will discuss with patient prior to initiating 2. History of coronary artery disease with prior stenting of the LAD. 3. End-stage renal disease on hemodialysis Friday. Patient missed dialysis treatment on Friday. Nephrology consult with plan for hemodialysis palpitations in the hospital Continue Nephrocaps, PhosLo. 4. Hypertension. Continue amlodipine 2.5 mg daily, Lasix 20 mg twice daily 5. Hyperlipidemia. Continue atorvastatin 80 mg at bedtime 6. Gastroesophageal reflux disease and GI prophylaxis. Continue Pepcid daily. 7. Diabetes mellitus type 2, insulin requiring. Levemir 320 units at bedtime, NovoLog 10 units 3 times daily and NovoLog scale. 8. Generalized anxiety disorder and recurrent depression. Continue BuSpar, Lexapro. 9. DVT prophylaxis. Heparin scbid . 10 history of permanent pacemaker 11 history of gastric sleeve and lap band in the past, no complications Discharge plan: Pending cardiology evaluation
--- NOTE | 2019-04-10 14:38 | P.NPCON ---
History of Present Illness - Reason for Consult Consult date: 04/10/19 end stage renal disease - Chief Complaint Chest pain - History of Present Illness ESRD patient of Dr. Talley at [facility] [place] MWF well left upper arm AV fistula coming to the hospital with chest pain during dialysis. She completed her full treatment on Friday in the last of her she had chest pain but she continued with it. No nausea vomiting diarrhea. She does have underlying coronary artery disease with angiograms and stent placements in the past.. Currently chest pain-free on heparin. Review of Systems Constitutional: Reports as per HPI Past Medical History Past Medical History: Coronary Artery Disease (CAD), Chest Pain / Angina, Dementia, Diabetes Mellitus, Dialysis, Hyperlipidemia, Hypertension, Liver Disease, Myocardial Infarction ([place]), Osteoarthritis (OA), Thyroid Disorder Additional Past Medical History / Comment(s): multiple [place]'s x18. ischemic cardiomyopathy. 12/29/15 STRESS WNL, ALLERGIC rhinitis,[place], CARDIO-PULMONARY ARREST 07/05/14 vertigo, hypertensive nephrosclerosis, Hepatitis A,Vitamin D deficiency, constipation, hx of a cat bit, fall with broken pelvis Last Myocardial Infarction Date:: 09/2013 History of Any Multi-Drug Resistant Organisms: MRSA, VRE Date of last positivie culture/infection: 11/11/18-VRE; 09/27/17 MRSA MDRO Source:: Urine-VRE; Right Breast-MRSA Past Surgical History: Adenoidectomy, Appendectomy, Cholecystectomy, Heart Catheterization With Stent, Hysterectomy, Tonsillectomy Additional Past Surgical History / Comment(s): mary cataracts, LAP-BAND 2004, Laparoscopic cholecystectomy, FIBULA FX has metal pins in place,Left shoulder surgery, Hemodialysis Cataract bilateral with IOL, fistula and sx to" reroute it",gets dialysis fri-fri-fri. has insulin pump. no bp on left, excisional debr eidment rt lower ext., foot surgery Past Anesthesia/Blood Transfusion Reactions: Motion Sickness, Postoperative Nausea & Vomiting (PONV) Additional Past Anesthesia/Blood Transfusion Reaction / Comment(s): blood transfusion-pt stated they gave her medication for a reaction but does'nt rememebr what the reaction was Date of Last Stent Placement:: 2014 Past Psychological History: Anxiety, Bipolar, Depression Additional Psychological History / Comment(s): pt. lives alone in apartment, uses walker for ambulation and has a wheelchair for longer distances, pt. no longer drives and takes city transport or has friends take her to appts. pt. has glucose reader, power w/c, shower chair, railing in br, walker and insulin pump. Smoking Status: Never smoker Past Alcohol Use History: None Reported Additional Past Alcohol Use History / Comment(s): Patient living in an apartment. She has a walker in the home and motorized wheelchair. She does not drive. She has a glucometer and insulin pump. She is a lifelong nonsmoker. She denies any alcohol use. No service. No international travel. She has a pet cat. Past Drug Use History: None Reported - Past Family History Mother Family Medical History: Congestive Heart Failure (CHF), Diabetes Mellitus, Hypertension Father History Unknown: Yes Family Medical History: Diabetes Mellitus Brother(s) Family Medical History: Diabetes Mellitus, Hyperlipidemia Additional Family Medical History / Comment(s): Hypertension chronic kidney disease Medications and Allergies Home Medications Medication Instructions Recorded Confirmed Type Famotidine [Pepcid] 20 mg PO DAILY@0600 04/29/14 04/09/19 History Atorvastatin [Lipitor] 80 mg PO HS@2100 12/27/16 04/09/19 History Calcium Acetate [PhosLo] 667 mg PO AC-TID 09/02/18 04/09/19 History Acetaminophen Tab [Tylenol] 500 mg PO Q6H PRN 01/11/19 04/09/19 History Docusate Sodium [Dok] 100 mg PO BID@0900,2100 01/11/19 04/09/19 History Furosemide [Lasix] 20 mg PO BID@0600,1200 01/11/19 04/09/19 History Insulin Glargine,Hum.rec.anlog 50 unit SQ HS@2100 01/11/19 04/09/19 History [Basaglar Kwikpen U-100] Insulin Lispro [humaLOG Kwikpen] 12 unit SQ AC-TID 01/11/19 04/09/19 History Insulin Lispro [humaLOG Kwikpen] See Protocol SQ ACHS 01/11/19 04/09/19 History Levothyroxine Sodium [Synthroid] 175 mcg PO DAILY@0600 01/11/19 04/09/19 History Lidocaine-Prilocaine Cream [Emla 1 applic TOPICAL MOWEFR PRN 01/11/19 04/09/19 History Cream 2.5%/2.5%] busPIRone HCL 5 mg PO BID@899,209901/11/19 04/09/19 History Aspirin EC [Ecotrin Low Dose] 81 mg PO DAILY@89904/02/19 04/09/19 History Bisacodyl [Dulcolax] 10 mg RECTAL HS PRN 04/02/19 04/09/19 History Escitalopram [Lexapro] 20 mg PO DAILY@89904/02/19 04/09/19 History Folic Acid-Vit B Complex-Vit C 1 cap PO MOWEFR@209904/02/19 04/09/19 History [Nephrocaps] Folic Acid-Vit B Complex-Vit C 1 mg PO SUTUTHSA@89904/02/19 04/09/19 History [Nephrocaps] Magnesium Hydroxide [Milk of 2,400 mg PO DAILY PRN 04/02/19 04/09/19 History Magnesia] Melatonin 10 mg PO HS@209904/02/19 04/09/19 History Ondansetron [Zofran] 4 mg PO Q6H PRN 04/02/19 04/09/19 History LORazepam [Ativan] 1 mg PO DAILY PRN #3 tab 04/06/19 04/09/19 Rx Nitroglycerin Sl Tabs [Nitrostat] 0.4 mg SUBLINGUAL Q5M PRN tab 04/06/19 04/09/19 Rx Clopidogrel [Plavix] 75 mg PO DAILY@89904/09/19 04/09/19 History Hydrocodone/Acetaminophen [[place] 1 tab PO BID PRN 04/09/19 04/09/19 History 10-325] Na Phos,M-B/Na Phos,Di-Ba [Fleet 133 ml RECTAL ONCE PRN 04/09/19 04/09/19 History Adult] amLODIPine [Norvasc] 2.5 mg PO DAILY@89904/09/19 04/09/19 History Allergies Allergy/AdvReac Type Severity Reaction Status Date / Time adhesive Allergy Rash/Hives Verified 04/09/19 16:09 Penicillins Allergy Rash/Hives Verified 04/09/19 16:09 Iodinated Contrast Media AdvReac KIDNEY Verified 04/09/19 16:09 [Iodinated Contrast- Oral FAILURE and IV Dye] metformin AdvReac SUGAR Verified 04/09/19 16:09 LEVEL INCREASE Physical Exam Vitals: Vital Signs Temp Pulse Pulse Resp BP BP Pulse Ox 04/10/19 12:06 60 16 106/53 99 04/10/19 08:57 60 04/10/19 07:50 60 16 107/57 99 04/10/19 03:29 98 F 61 16 113/61 100 04/09/19 23:56 98 F 62 18 93/65 95 04/09/19 20:00 98.1 F 59 L 16 96/48 96 04/09/19 18:31 97.1 F L 59 L 18 111/51 100 04/09/19 17:31 98.2 F 66 20 132/64 98 04/09/19 15:03 60 20 115/57 100 Intake and Output 04/09/19 04/10/19 04/10/19 22:59 06:59 14:59 Intake Total 63.5 42.583 18.6 Balance 63.5 42.583 18.6 Intake: Intake, IV Titration 63.5 42.583 18.6 Amount Heparin Sod,Pork in 0.45% 63.5 42.583 18.6 NaCl 25,000 unit In 0.45 % NaCl 1 250ml.bag @ 10. 204 UNITS/KG/HR 10 mls/hr IV .Q24H [facility] Rx#: [id number] Other: # Voids 0 Weight 98 kg No acute distress S1-S2 heard Lungs clear Left upper arm AV fistula Lower extremity edema Results - Lab Results Most recent lab results Calcium 9.3 mg/dL (8.4-10.2) 04/09/19 13:45 Magnesium 2.2 mg/dL (1.6-2.3) 04/09/19 13:45 04/10/19 03:10 04/09/19 13:45 Assessment and Plan Assessment: #1 non-STEMI #2 ESRD on hemodialysis, MWF #3 hypertension with ESRD #4 metabolic bone disease with ESRD #5 anemia with ESRD Plan: #1 plan hemodialysis on Friday based on cardiology evaluation. If cardiology plans for an angiogram. Hemodialysis post angiogram. #2 stop Lasix #3 CKD medications
--- NOTE | 2019-04-10 15:48 | P.CRDCN ---
History of Present Illness History of present illness: This is Dr. Smith dictating a consult on this patient The patient was interviewed and examined by me IMPRESSION / ASSESSMENT: Chest discomfort, recurrent, gradient of the left arm and similar to her anginal spells Elevated cardiac enzymes but with a flat trend This could represent elevated troponins secondary to chronic stenting and PTCA from last week rather than a new event However she does have chest discomfort consistent with her anginal spells Chronic kidney disease on dialysis ALLERGIES type II on insulin pump Atrial fibrillation programmed pacemaker implantation PLAN: Continue IV heparin and continue Nitropaste continue cardiac medications I will discuss this with Dr. Jc for further coronary interventions/evaluation Continue IV heparin over the weekend HPI Patient presented yet again with chest discomfort similar to what she experienced last week when she was in the hospital she had undergone coronary stenting as well as PTCA At this time she has no chest discomfort no shortness of breath and she looks comfortable she is on Nitropaste and IV heparin She has known chronic kidney disease and is on dialysis She has type 2 diabetes on insulin pump dyslipidemia and pacemaker implantation atrial fibrillation ROS: No fever chills or rigors, no cough, phlegm or expectoration, no nausea, vomiting or diarrhea, no hematuria, dysuria, no musculoskeletal complaints, no strokes or seizures, no skin lesions. EXAMINATION: Blood pressure 106/53 mmHg pulse rate in the 60s normal respirations Breath sounds are clear no rhonchi no crackles Heart sounds. Soft Abdomen soft nontender REVIEW OF LABS, ECG & MEDICAL DATA Troponin 15.8 14.9 13.4 Past Medical History Past Medical History: Coronary Artery Disease (CAD), Chest Pain / Angina, Dementia, Diabetes Mellitus, Dialysis, Hyperlipidemia, Hypertension, Liver Disease, Myocardial Infarction ([place]), Osteoarthritis (OA), Thyroid Disorder Additional Past Medical History / Comment(s): multiple [place]'s x18. ischemic cardiomyopathy. 12/29/15 STRESS WNL, ALLERGIC rhinitis,[place], CARDIO-PULMONARY ARREST 07/05/14 vertigo, hypertensive nephrosclerosis, Hepatitis A,Vitamin D deficiency, constipation, hx of a cat bit, fall with broken pelvis Last Myocardial Infarction Date:: 09/2013 History of Any Multi-Drug Resistant Organisms: MRSA, VRE Date of last positivie culture/infection: 11/11/18-VRE; 09/27/17 MRSA MDRO Source:: Urine-VRE; Right Breast-MRSA Past Surgical History: Adenoidectomy, Appendectomy, Cholecystectomy, Heart Catheterization With Stent, Hysterectomy, Tonsillectomy Additional Past Surgical History / Comment(s): mary cataracts, LAP-BAND 2004, Laparoscopic cholecystectomy, FIBULA FX has metal pins in place,Left shoulder surgery, Hemodialysis Cataract bilateral with IOL, fistula and sx to" reroute it",gets dialysis mon-wed-fri. has insulin pump. no bp on left, excisional debreidment rt lower ext., foot surgery Past Anesthesia/Blood Transfusion Reactions: Motion Sickness, Postoperative Nausea & Vomiting (PONV) Additional Past Anesthesia/Blood Transfusion Reaction / Comment(s): blood transfusion-pt stated they gave her medication for a reaction but does'nt rememebr what the reaction was Date of Last Stent Placement:: 2014 Past Psychological History: Anxiety, Bipolar, Depression Additional Psychological History / Comment(s): pt. lives alone in apartment, uses walker for ambulation and has a wheelchair for longer distances, pt. no longer drives and takes city transport or has friends take her to appts. pt. has glucose reader, power w/c, shower chair, railing in br, walker and insulin pump. Smoking Status: Never smoker Past Alcohol Use History: None Reported Additional Past Alcohol Use History / Comment(s): Patient living in an apartment. She has a walker in the home and motorized wheelchair. She does not drive. She has a glucometer and insulin pump. She is a lifelong nonsmoker. She denies any alcohol use. No service. No international travel. She has a pet cat. Past Drug Use History: None Reported - Past Family History Mother Family Medical History: Congestive Heart Failure (CHF), Diabetes Mellitus, Hypertension Father History Unknown: Yes Family Medical History: Diabetes Mellitus Brother(s) Family Medical History: Diabetes Mellitus, Hyperlipidemia Additional Family Medical History / Comment(s): Hypertension chronic kidney disease Medications and Allergies Home Medications Medication Instructions Recorded Confirmed Type Famotidine [Pepcid] 20 mg PO DAILY@0600 04/29/14 04/09/19 History Atorvastatin [Lipitor] 80 mg PO HS@2100 12/27/16 04/09/19 History Calcium Acetate [PhosLo] 667 mg PO AC-TID 09/02/18 04/09/19 History Acetaminophen Tab [Tylenol] 500 mg PO Q6H PRN 01/11/19 04/09/19 History Docusate Sodium [Dok] 100 mg PO BID@0900,209901/11/19 04/09/19 History Furosemide [Lasix] 20 mg PO BID@0600,1200 01/11/19 04/09/19 History Insulin Glargine,Hum.rec.anlog 50 unit SQ HS@209901/11/19 04/09/19 History [Basaglar Kwikpen U-100] Insulin Lispro [humaLOG Kwikpen] 12 unit SQ AC-TID 01/11/19 04/09/19 History Insulin Lispro [humaLOG Kwikpen] See Protocol SQ ACHS 01/11/19 04/09/19 History Levothyroxine Sodium [Synthroid] 175 mcg PO DAILY@0600 01/11/19 04/09/19 History Lidocaine-Prilocaine Cream [Emla 1 applic TOPICAL MOWEFR PRN 01/11/19 04/09/19 History Cream 2.5%/2.5%] busPIRone HCL 5 mg PO BID@0900,209901/11/19 04/09/19 History Aspirin EC [Ecotrin Low Dose] 81 mg PO DAILY@0900 04/02/19 04/09/19 History Bisacodyl [Dulcolax] 10 mg RECTAL HS PRN 04/02/19 04/09/19 History Escitalopram [Lexapro] 20 mg PO DAILY@0900 04/02/19 04/09/19 History Folic Acid-Vit B Complex-Vit C 1 cap PO MOWEFR@209904/02/19 04/09/19 History [Nephrocaps] Folic Acid-Vit B Complex-Vit C 1 mg PO SUTUTHSA@0904/02/19 04/09/19 History [Nephrocaps] Magnesium Hydroxide [Milk of 2,400 mg PO DAILY PRN 04/02/19 04/09/19 History Magnesia] Melatonin 10 mg PO HS@209904/02/19 04/09/19 History Ondansetron [Zofran] 4 mg PO Q6H PRN 04/02/19 04/09/19 History LORazepam [Ativan] 1 mg PO DAILY PRN #3 tab 04/06/19 04/09/19 Rx Nitroglycerin Sl Tabs [Nitrostat] 0.4 mg SUBLINGUAL Q5M PRN tab 04/06/19 04/09/19 Rx Clopidogrel [Plavix] 75 mg PO DAILY@0900 04/09/19 04/09/19 History Hydrocodone/Acetaminophen [[place] 1 tab PO BID PRN 04/09/19 04/09/19 History 10-325] Na Phos,M-B/Na Phos,Di-Ba [Fleet 133 ml RECTAL ONCE PRN 04/09/19 04/09/19 History Adult] amLODIPine [Norvasc] 2.5 mg PO DAILY@0900 04/09/19 04/09/19 History Allergies Allergy/AdvReac Type Severity Reaction Status Date / Time adhesive Allergy Rash/Hives Verified 04/09/19 16:09 Penicillins Allergy Rash/Hives Verified 04/09/19 16:09 Iodinated Contrast Media AdvReac KIDNEY Verified 04/09/19 16:09 [Iodinated Contrast- Oral FAILURE and IV Dye] metformin AdvReac SUGAR Verified 04/09/19 16:09 LEVEL INCREASE Physical Exam Vitals: Vital Signs Temp Pulse Pulse Resp BP BP Pulse Ox 04/10/19 12:06 60 16 106/53 99 04/10/19 08:57 60 04/10/19 07:50 60 16 107/57 99 04/10/19 03:29 98 F 61 16 113/61 100 04/09/19 23:56 98 F 62 18 93/65 95 04/09/19 20:00 98.1 F 59 L 16 96/48 96 04/09/19 18:31 97.1 F L 59 L 18 111/51 100 04/09/19 17:31 98.2 F 66 20 132/64 98 Intake and Output 04/10/19 04/10/19 04/10/19 06:59 14:59 22:59 Intake Total 42.583 18.6 Balance 42.583 18.6 Intake: Intake, IV Titration 42.583 18.6 Amount Heparin Sod,Pork in 0.45% 42.583 18.6 NaCl 25,000 unit In 0.45 % NaCl 1 250ml.bag @ 10. 204 UNITS/KG/HR 10 mls/hr IV .Q24H [facility] Rx#: [id number] Other: # Voids 0 Results 04/10/19 03:10 04/09/19 13:45 Cardiac Enzymes 04/09/19 04/10/19 Range/Units 20:40 01:52 Troponin I 14.900 H* 13.400 H* (0.000-0.034) ng/mL Coagulation 04/09/19 04/10/19 04/10/19 Range/Units 20:40 03:10 10:49 APTT 133.9 H* >200.0 H* 30.1 H (22.0-30.0) sec Lipids 04/10/19 Range/Units 03:10 Triglycerides 111 (<150) mg/dL Cholesterol 103 (<200) mg/dL HDL Cholesterol 40 (40-60) mg/dL CBC 04/10/19 Range/Units 03:10 WBC 6.7 (3.8-10.6) k/uL RBC 3.33 L (3.80-5.40) m/uL Hgb 10.4 L (11.4-16.0) gm/dL Hct 32.9 L (34.0-46.0) % Plt Count 254 (150-450) k/uL Current Medications Generic Name Dose Route Start Last Admin Trade Name Freq PRN Reason Stop Dose Admin Acetaminophen 500 mg 04/09/19 22:02 Tylenol Tab PO Q6H PRN Pain Hydrocodone Bitart/Acetaminophen 1 each 04/09/19 22:02 04/09/19 22:57 [place] 10 PO 1 each BID PRN Administration pain Amlodipine Besylate 2.5 mg 04/10/19 09:00 04/10/19 08:52 Norvasc PO 2.5 mg DAILY@0900 [facility] Administration Aspirin 81 mg 04/11/19 09:00 Aspirin PO DAILY@0900 [facility] Atorvastatin Calcium 80 mg 04/10/19 21:00 Lipitor PO HS@2100 [facility] Bisacodyl 10 mg 04/10/19 13:18 Dulcolax RECTAL HS PRN Constipation Buspirone HCl 5 mg 04/10/19 09:00 04/10/19 08:52 Buspar PO 5 mg BID@0900,2100 [facility] Administration Calcium Acetate 667 mg 04/10/19 07:30 04/10/19 13:39 Phoslo PO Not Given AC-TID [facility] Clopidogrel Bisulfate 75 mg 04/11/19 09:00 Plavix PO DAILY@0900 [facility] Docusate Sodium 100 mg 04/10/19 09:00 04/10/19 08:47 Colace PO Not Given BID@0900,2099 [facility] Escitalopram Oxalate 20 mg 04/10/19 09:00 04/10/19 08:52 Lexapro PO 20 mg DAILY@0900 [facility] Administration Famotidine 20 mg 04/11/19 06:00 Pepcid PO DAILY@0600 [facility] Heparin Sodium (Porcine) 0 unit 04/09/19 15:10 Heparin IV PER PROTOCOL PRN Low PTT Protocol Heparin Sodium/Sodium Chloride 250 mls @ 10 mls/hr 04/09/19 15:15 04/10/19 11:25 25,000 unit/ Sodium Chloride IV 7.08 units/kg/hr .Q24H [facility] 6.938 mls/hr Titration Protocol 10.204 UNITS/KG/HR Insulin Aspart 10 unit 04/10/19 17:30 Novolog SQ AC-TID [facility] Insulin Detemir 30 unit 04/10/19 21:00 Levemir SQ HS@2100 [facility] Levothyroxine Sodium 100 mcg 04/10/19 06:00 04/10/19 06:11 Synthroid PO Not Given DAILY@0600 [facility] Levothyroxine Sodium 75 mcg 04/10/19 06:00 04/10/19 06:11 Synthroid PO Not Given DAILY@0600 [facility] Lidocaine/Prilocaine 1 applic 04/10/19 13:18 Emla Cream 2.5%/2.5% TOPICAL MOWEFR PRN DIALYSIS Magnesium Hydroxide 2,400 mg 04/10/19 13:18 Milk Of Magnesia PO DAILY PRN Constipation Melatonin 10 mg 04/10/19 21:00 Melatonin PO HS@2100 [facility] Multivit/Ca Carb/B Cmplx/FA/Prenat 1 each 04/12/19 21:00 Nephrocaps PO MOWEFR@2100 [facility] Multivit/Ca Carb/B Cmplx/FA/Prenat 1 each 04/11/19 09:00 Nephrocaps PO SUTUTHSA@0900 [facility] Nitroglycerin 0.4 mg 04/09/19 15:43 Nitrostat SUBLINGUAL Q5M PRN Chest Pain Nitroglycerin 1 inch 04/09/19 19:00 01/25/20 15:22 Nitro-Bid Oint TOPICAL Not Given Q6HR [facility] Sodium Chloride 10 ml 04/09/19 21:00 04/10/19 08:53 Saline Flush IV 10 ml BID [facility] Administration Intake and Output 04/10/19 04/10/19 04/10/19 06:59 14:59 22:59 Intake Total 42.583 18.6 Balance 42.583 18.6 Intake: Intake, IV Titration 42.583 18.6 Amount Heparin Sod,Pork in 0.45% 42.583 18.6 NaCl 25,000 unit In 0.45 % NaCl 1 250ml.bag @ 10. 204 UNITS/KG/HR 10 mls/hr IV .Q24H [facility] Rx#: [id number] Other: # Voids 0 04/10/19 03:10 04/09/19 13:45
[2019-04-10 17:41] LABS: Glucose,Whole Blood 342 mg/dL (75-99)
[2019-04-10] MEDS: HEPARIN SOD,PORK IN 0.45% NACL 25,000 UNIT in 0.45% NACL 1 250ML.BAG IV SCH (18:54)
[2019-04-10 20:21] LABS: Glucose,Whole Blood 232 mg/dL (75-99)
[2019-04-10] MEDS: INSULIN DETEMIR (LEVEMIR) 100 UNIT/ML SYR SQ SCH (21:59)
[2019-04-10] MEDS: MELATONIN 5 MG TABLET PO SCH (21:59)
[2019-04-10] MEDS: ATORVASTATIN 80 MG TAB PO SCH (21:59)
[2019-04-10] MEDS: HYDROcodone/APAP 10-325MG 1 EACH TAB PO PRN (22:00)
[2019-04-11] MEDS: HEPARIN SOD,PORK IN 0.45% NACL 25,000 UNIT in 0.45% NACL 1 250ML.BAG IV SCH (02:50)
[2019-04-11] MEDS: NITROGLYCERIN OINT 1 INCH/GM PACKET TOPICAL SCH ×5 (03:07→23:15)
[2019-04-11] MEDS: LEVOTHYROXINE 100 MCG TAB PO SCH (07:01)
[2019-04-11] MEDS: LEVOTHYROXINE 75 MCG TAB PO SCH (07:01)
[2019-04-11] MEDS: FAMOTIDINE 20 MG TAB PO SCH (07:01)
[2019-04-11] MEDS: CALCIUM ACETATE 667 MG TAB PO SCH ×3 (07:01→17:14)
[2019-04-11 07:05] LABS: Anisocytosis Slight; Basophils % (A) 0 %; Eosinophils # (A) 0.4 k/uL (0-0.7); Eosinophils % (A) 6 %; HCT 34.8 % (34.0-46.0); HGB 10.4 gm/dL (11.4-16.0); Hypochromasia Moderate; Lymphocytes # (A) 1.1 k/uL (1.0-4.8); Lymphocytes % (A) 19 %; MCHC 29.9 g/dL (31.0-37.0); MCV 100.3 fL (80.0-100.0); Macrocytosis Slight; Mean Platelet Volume 8.8; Monocytes # (A) 0.4 k/uL (0-1.0); Monocytes % (A) 7 %; Neutrophils # (A) 3.8 k/uL (1.3-7.7); Neutrophils % (A) 64 %; Platelet Count 227 k/uL (150-450); RBC 3.47 m/uL (3.80-5.40); RDW 16.7 % (11.5-15.5)
[2019-04-11 07:15] LABS: Glucose,Whole Blood 124 mg/dL (75-99)
[2019-04-11] MEDS: INSULIN ASPART (NovoLOG) 100 UNIT/ML VIAL SQ SCH ×3 (07:15→17:10)
[2019-04-11 07:17] LABS: INR 1.1 (<1.2)
[2019-04-11 07:18] LABS: Prothrombin Time 11.7 sec (9.0-12.0)
[2019-04-11 07:19] LABS: Glucose,Whole Blood 138 mg/dL (75-99)
[2019-04-11 07:20] LABS: Partial Thromboplastin Time 127.6 sec (22.0-30.0)
--- NOTE | 2019-04-11 07:49 | US ---
EXAMINATION TYPE: US abdomen limited DATE OF EXAM: 04/11/2019 COMPARISON: NONE CLINICAL HISTORY: elevated transaminitis . Abn labs, large habitus with bowel gas severely limits exa m EXAM MEASUREMENTS: Liver Length: 17.8 cm Gallbladder Wall: Surgically absent CBD: 0.9 cm Right Kidney: not seen *Difficult to image due to habitus, abdominal folds and bowel gas Pancreas: not seen due to habitus and bowel gas Liver: limited imaging appears wnl Gallbladder: patient asked if she had GB removed and she had no comment, at area of GB fossa echogen ic foci seen that tech thought may represent stone, with thickened GB wall, versus possible clip or other etiology. Evidence for sonographic Brandt's sign: no CBD: wnl Right Kidney: was unable to see any portion of right kidney during his exam. The pancreas is obscured. The liver is upper limits of normal in size without biliary dilatation. The patient was uncertain whether not the gallbladder was removed. In the region of the gallbladder f nikolas there is a shadowing density which May represent stone within a contracted gallbladder. There is no sonographic Brandt's sign. The right kidney is not visualized. IMPRESSION: THERE IS A QUESTION TO WHETHER OR NOT THE GALLBLADDER IS PRESENT AND CONTAINING A STONE WITH A THI CKENED WALL. A CT SCAN OF THE ABDOMEN WOULD BE SUGGESTED FOR FURTHER ASSESSMENT.
[2019-04-11] MEDS: DOCUSATE 100 MG CAP PO SCH ×2 (08:13→20:33)
[2019-04-11] MEDS: ASPIRIN 81 MG PO SCH (08:13)
[2019-04-11] MEDS: HYDROcodone/APAP 10-325MG 1 EACH TAB PO PRN (08:13)
[2019-04-11] MEDS: ESCITALOPRAM 20 MG TAB PO SCH (08:13)
[2019-04-11] MEDS: busPIRone HCl 5 MG TAB PO SCH ×2 (08:13→20:33)
[2019-04-11] MEDS: amLODIPine 2.5 MG TAB PO SCH (08:13)
[2019-04-11] MEDS: CLOPIDOGREL 75 MG TAB PO SCH (08:13)
--- NOTE | 2019-04-11 12:08 | P.PN ---
Subjective Progress Note Date: 04/11/19 Follow-up for ESRD, intermittent chest pains currently on heparin drip. Objective - Vital Signs Vital signs: Vital Signs Temp 98.8 F 04/10/19 20:00 Pulse 64 04/11/19 04:00 Resp 18 04/11/19 04:00 BP 117/51 04/11/19 04:00 Pulse Ox 96 04/11/19 04:00 Intake & Output 04/10/19 04/11/19 04/11/19 18:59 06:59 18:59 Intake Total 70.057 473.860 50.309 Output Total 200 Balance 70.057 273.860 50.309 Weight 92.9 kg Intake: Intake, IV Titration 70.057 73.860 50.309 Amount Heparin Sod,Pork in 0.45% 70.057 73.860 50.309 NaCl 25,000 unit In 0.45 % NaCl 1 250ml.bag @ 10. 204 UNITS/KG/HR 10 mls/hr IV .Q24H [facility] Rx#: [id number] Oral 400 Output: Urine 200 - Exam No acute distress S1-S2 heard Lungs clear Left upper arm aVF - Labs CBC & Chem 7: 04/11/19 05:23 04/09/19 13:45 Labs: Abnormal Lab Results - Last 24 Hours (Table) 04/10/19 04/10/19 04/10/19 Range/Units 17:38 18:06 20:19 RBC (3.80-5.40) m/uL Hgb (11.4-16.0) gm/dL MCV (80.0-100.0) fL MCHC (31.0-37.0) g/dL RDW (11.5-15.5) % APTT 40.0 H (22.0-30.0) sec POC Glucose (mg/dL) 342 H 232 H (75-99) mg/dL 04/11/19 04/11/19 04/11/19 Range/Units 01:09 05:23 05:23 RBC 3.47 L (3.80-5.40) m/uL Hgb 10.4 L (11.4-16.0) gm/dL MCV 100.3 H (80.0-100.0) fL MCHC 29.9 L (31.0-37.0) g/dL RDW 16.7 H (11.5-15.5) % APTT 38.5 H 127.6 H* (22.0-30.0) sec POC Glucose (mg/dL) (75-99) mg/dL 04/11/19 04/11/19 Range/Units 07:14 07:18 RBC (3.80-5.40) m/uL Hgb (11.4-16.0) gm/dL MCV (80.0-100.0) fL MCHC (31.0-37.0) g/dL RDW (11.5-15.5) % APTT (22.0-30.0) sec POC Glucose (mg/dL) 124 H 138 H (75-99) mg/dL Assessment and Plan Assessment: #1 non-STEMI #2 ESRD on hemodialysis, MWF #3 hypertension with ESRD #4 metabolic bone disease with ESRD #5 anemia with ESRD Plan: #1 plan hemodialysis on Friday based on cardiology evaluation. If cardiology plans for an angiogram. Hemodialysis post angiogram. #2 CKD medications
[2019-04-11 12:53] LABS: Glucose,Whole Blood 62 mg/dL (75-99)
[2019-04-11] MEDS: FOLIC ACID-VIT B COMPLEX-VIT C 1 CAP PO SCH (13:00)
--- NOTE | 2019-04-11 13:01 | P.PN ---
Subjective Progress Note Date: 04/11/19 On exam the patient is lying comfortably in bed. She currently does not have any chest discomfort. She also denies any shortness of breath, palpitations, dizziness, or vertigo. GENERAL: Well-appearing, well-nourished and in no acute distress. NECK: Supple without JVD or thyromegaly. LUNGS: Breath sounds clear to auscultation bilaterally. Respiration equal and unlabored. No wheezes, rales or rhonchi. HEART: Regular rate and rhythm without murmurs, rubs or gallops. S1 and S2 heard . EXTREMITIES: Normal range of motion, no edema. No clubbing or cyanosis. Peripheral pulses intact and strong. Vital signs: Blood pressure 117/51, heart rate 64, afebrile, 96% on room air Labs: WBC 6.0 hemoglobin 10.4, hematocrit 34.8, platelets 227, triglycerides 111, LDL 41, HDL 40 Impression/assessment: #1 chest discomfort, now resolved #2 elevated troponin, likely secondary to recent stenting and PTCA #3 CAD, on dialysis #4 diabetes mellitus, insulin pump #5 underlying persistent atrial fibrillation, currently on heparin drip #6 history of permanent pacemaker Plan: Continue current medical regimen. Continue heparin drip. Consider outpatient stress testing versus repeat coronary angiography. Will discuss with primary aesthetician, Dr JAE Jc. Objective - Vital Signs Vital signs: Vital Signs Temp 98.8 F 04/10/19 20:00 Pulse 64 04/11/19 04:00 Resp 18 04/11/19 04:00 BP 117/51 04/11/19 04:00 Pulse Ox 96 04/11/19 04:00 Intake & Output 04/10/19 04/11/19 04/11/19 18:59 06:59 18:59 Intake Total 70.057 473.860 50.309 Output Total 200 Balance 70.057 273.860 50.309 Weight 92.9 kg Intake: Intake, IV Titration 70.057 73.860 50.309 Amount Heparin Sod,Pork in 0.45% 70.057 73.860 50.309 NaCl 25,000 unit In 0.45 % NaCl 1 250ml.bag @ 10. 204 UNITS/KG/HR 10 mls/hr IV .Q24H [facility] Rx#: [id number] Oral 400 Output: Urine 200 - Labs CBC & Chem 7: 04/11/19 05:23 04/09/19 13:45 Labs: Abnormal Lab Results - Last 24 Hours (Table) 04/10/19 04/10/19 04/10/19 Range/Units 17:38 18:06 20:19 RBC (3.80-5.40) m/uL Hgb (11.4-16.0) gm/dL MCV (80.0-100.0) fL MCHC (31.0-37.0) g/dL RDW (11.5-15.5) % APTT 40.0 H (22.0-30.0) sec POC Glucose (mg/dL) 342 H 232 H (75-99) mg/dL 04/11/19 04/11/19 04/11/19 Range/Units 01:09 05:23 05:23 RBC 3.47 L (3.80-5.40) m/uL Hgb 10.4 L (11.4-16.0) gm/dL MCV 100.3 H (80.0-100.0) fL MCHC 29.9 L (31.0-37.0) g/dL RDW 16.7 H (11.5-15.5) % APTT 38.5 H 127.6 H* (22.0-30.0) sec POC Glucose (mg/dL) (75-99) mg/dL 04/11/19 04/11/19 Range/Units 07:14 07:18 RBC (3.80-5.40) m/uL Hgb (11.4-16.0) gm/dL MCV (80.0-100.0) fL MCHC (31.0-37.0) g/dL RDW (11.5-15.5) % APTT (22.0-30.0) sec POC Glucose (mg/dL) 124 H 138 H (75-99) mg/dL
[2019-04-11 13:14] LABS: Glucose,Whole Blood 52 mg/dL (75-99)
[2019-04-11 13:32] LABS: Glucose,Whole Blood 59 mg/dL (75-99)
[2019-04-11 13:50] LABS: Glucose,Whole Blood 67 mg/dL (75-99)
[2019-04-11 14:17] LABS: Glucose,Whole Blood 70 mg/dL (75-99)
--- NOTE | 2019-04-11 15:44 | P.PN ---
Subjective Progress Note Date: 04/11/19 This is a 63-year-old obese female patient of JAE Cordova, Mayank with multiple medical problem was known to have end-stage kidney disease on hemodialysis Friday, coronary artery disease and prior coronary artery stenting, diabetes type 2 on insulin pump, dyslipidemia, history of permanent pacemaker, atrial fibrillation. Patient was last admitted in July 2018 which time she was seen for possible TIA and severe hyperkalemia and has been residing at [facility] for subacute rehab due to fracture of the right tibia. Patient was recently admitted for chest pain and underwent cardiac cath on 04/04/2019 where stenting of the LAD and PTCA of the OM branch was done. Patient was discharged on 04/06/19 and comes back yesterday with complaints of chest pain. EKG was done that suggested an undetermined rhythm with widened QRS nonspecific T waves but no active ST elevation was noted that suggested a hemoglobin of 10.4 troponin elevated at 13.4 hemoglobin of 10.4. Patient was admitted for chest pain and evaluation with cardiology continue heparin drip until seen by cardiology keep patient nothing by mouth and examined bedside no events overnight vitals this morning with temperature 98.8. 58 blood pressure 123/65 oxygen saturation 93% on room air patient plans to get hemodialysis done on Friday. Cardiology evaluated the patient consider it could be angina event mother leak in troponin could be related to the recent cath currently stable on nitro paste and IV heparin with no plan to undergo cardiac cath associated Review of Systems Constitutional: Denies chills, Denies fever, Denies lethargy, Denies malaise, Denies poor appetite, Denies weakness, Denies weight loss Eyes: denies decreased vision, denies diplopia, denies discharge, denies pain Ears: deny: decreased hearing Ears, nose, mouth and throat: Denies dental pain, Denies headache, Denies nasal discharge, Denies nose pain Cardiovascular: endorses chest pain under breast , Denies decreased exercise tolerance, Denies edema, Denies high blood pressure, Denies irregular heart beat, Denies palpitations, Denies paroxysmal nocturnal dyspnea, Denies rapid heart beat, Denies shortness of breath Respiratory: Denies congestion, Denies cough, Denies cough with sputum, Denies dyspnea, Denies home oxygen, Denies wheezing Gastrointestinal: Denies abdominal pain, Denies change in bowel habits, Denies coffee ground emesis, Denies early satiety, Denies excessive gas, Denies heartburn, Denies hematemesis, Denies hematochezia, Denies loss of appetite, Denies nausea, Denies vomiting Genitourinary: Denies dysuria, Denies flank pain, Denies kidney stones, Denies menorrhagia, Denies urgency, Denies urinary frequency Musculoskeletal: Endorses gait dysfunction, Denies limitation of motion, Denies morning stiffness, Denies muscle cramps Integumentary: Denies rash, Denies wounds, Denies brittle nails, Denies change in hair/nails, Denies darkening of skin Neurological: Endorses balance difficulties, Denies change in speech, Denies double vision, Denies gait dysfunction, Denies loss of vision, Denies motor disturbance, Denies numbness, Denies paralysis, Denies paresthesias, Denies seizures Psychiatric: Denies anxiety, Denies depression Endocrine: Denies excessive sweating, Denies excessive thirst, Denies high blood sugars, Denies palpitations Hematologic/Lymphatic: Denies easy bruising, Denies lymphadenopathy Objective - Vital Signs Vital signs: Vital Signs Temp 98.8 F 04/10/19 20:00 Pulse 64 04/11/19 04:00 Resp 18 04/11/19 04:00 BP 117/51 04/11/19 04:00 Pulse Ox 96 04/11/19 04:00 Intake & Output 04/10/19 04/11/19 04/11/19 18:59 06:59 18:59 Intake Total 70.057 473.860 50.309 Output Total 200 Balance 70.057 273.860 50.309 Weight 92.9 kg Intake: Intake, IV Titration 70.057 73.860 50.309 Amount Heparin Sod,Pork in 0.45% 70.057 73.860 50.309 NaCl 25,000 unit In 0.45 % NaCl 1 250ml.bag @ 10. 204 UNITS/KG/HR 10 mls/hr IV .Q24H [facility] Rx#: [id number] Oral 400 Output: Urine 200 - Exam - Constitutional General appearance: cooperative, no acute distress, obese - EENT Eyes: anicteric sclerae, PERRLA, normal appearance ENT: hearing grossly normal - Neck Neck: no lymphadenopathy, normal ROM, no other, no rigidity, no stridor, no thyromegaly - Respiratory Respiratory: bilateral: CTA, negative: diminished, dullness, rales, rhonchi - Cardiovascular Rhythm: regular Heart sounds: normal: S1, S2 Abnormal Heart Sounds: 3 / 6 systolic murmur, no diastolic murmur, no rub, no S3 Gallop, no S4 Gallop, no click, no other - Gastrointestinal General gastrointestinal: normal bowel sounds, soft and nontender - Integumentary Integumentary: no rash - Neurologic Neurologic: CNII-XII intact - Musculoskeletal Musculoskeletal: Gait not assessed, strength equal bilaterally - Psychiatric Psychiatric: A&O x's 3, appropriate affect - Labs CBC & Chem 7: 04/11/19 05:23 04/09/19 13:45 Labs: Abnormal Lab Results - Last 24 Hours (Table) 04/10/19 04/10/19 04/10/19 Range/Units 17:38 18:06 20:19 RBC (3.80-5.40) m/uL Hgb (11.4-16.0) gm/dL MCV (80.0-100.0) fL MCHC (31.0-37.0) g/dL RDW (11.5-15.5) % APTT 40.0 H (22.0-30.0) sec POC Glucose (mg/dL) 342 H 232 H (75-99) mg/dL 04/11/19 04/11/19 04/11/19 Range/Units 01:09 05:23 05:23 RBC 3.47 L (3.80-5.40) m/uL Hgb 10.4 L (11.4-16.0) gm/dL MCV 100.3 H (80.0-100.0) fL MCHC 29.9 L (31.0-37.0) g/dL RDW 16.7 H (11.5-15.5) % APTT 38.5 H 127.6 H* (22.0-30.0) sec POC Glucose (mg/dL) (75-99) mg/dL 04/11/19 04/11/19 Range/Units 07:14 07:18 RBC (3.80-5.40) m/uL Hgb (11.4-16.0) gm/dL MCV (80.0-100.0) fL MCHC (31.0-37.0) g/dL RDW (11.5-15.5) % APTT (22.0-30.0) sec POC Glucose (mg/dL) 124 H 138 H (75-99) mg/dL Assessment and Plan Plan: 1. Acute substernal chest pain with recent Acute non-ST elevated myocardial infarction status post drug acute stenting of LAD and PTCA of OM branch of circumflex. Currently on heparin drip cardiology consult troponin elevation likely secondary to recent cardiac catheterization. Continue aspirin, Plavix, amlodipine. Patient is not on a beta uri will discuss with patient prior to initiating 2. History of coronary artery disease with prior stenting of the LAD. 3. End-stage renal disease on hemodialysis Friday. Patient missed dialysis treatment on Friday. Nephrology consult with plan for hemodialysis palpitations in the hospital Continue Nephrocaps, PhosLo. 4. Hypertension. Continue amlodipine 2.5 mg daily, Lasix 20 mg twice daily 5. Hyperlipidemia. Continue atorvastatin 80 mg at bedtime 6. Gastroesophageal reflux disease and GI prophylaxis. Continue Pepcid daily. 7. Diabetes mellitus type 2, insulin requiring. Levemir 320 units at bedtime, NovoLog 10 units 3 times daily and NovoLog scale. 8. Generalized anxiety disorder and recurrent depression. Continue BuSpar, Lexapro. 9. DVT prophylaxis. Heparin scbid . 10 history of permanent pacemaker 11 history of gastric sleeve and lap band in the past, no complications Discharge plan: Pending cardiology evaluation
[2019-04-11 17:01] LABS: Glucose,Whole Blood 72 mg/dL (75-99)
[2019-04-11 20:23] LABS: Glucose,Whole Blood 199 mg/dL (75-99)
[2019-04-11] MEDS: INSULIN DETEMIR (LEVEMIR) 100 UNIT/ML SYR SQ SCH (20:33)
[2019-04-11] MEDS: ATORVASTATIN 80 MG TAB PO SCH (20:33)
[2019-04-11] MEDS: MELATONIN 5 MG TABLET PO SCH (20:33)
[2019-04-12] MEDS: LEVOTHYROXINE 75 MCG TAB PO SCH (06:05)
[2019-04-12] MEDS: NITROGLYCERIN OINT 1 INCH/GM PACKET TOPICAL SCH ×4 (06:05→23:08)
[2019-04-12] MEDS: LEVOTHYROXINE 100 MCG TAB PO SCH (06:05)
[2019-04-12] MEDS: HYDROcodone/APAP 10-325MG 1 EACH TAB PO PRN (06:05)
[2019-04-12] MEDS: HEPARIN SOD,PORK IN 0.45% NACL 25,000 UNIT in 0.45% NACL 1 250ML.BAG IV SCH (06:06)
[2019-04-12 06:23] LABS: Glucose,Whole Blood 152 mg/dL (75-99)
[2019-04-12 07:00] LABS: Anisocytosis Slight; Basophils % (A) 1 %; Eosinophils # (A) 0.4 k/uL (0-0.7); Eosinophils % (A) 6 %; HCT 34.3 % (34.0-46.0); HGB 10.5 gm/dL (11.4-16.0); Hypochromasia Moderate; Lymphocytes # (A) 0.8 k/uL (1.0-4.8); Lymphocytes % (A) 12 %; MCH 30.1 pg (25.0-35.0); MCHC 30.5 g/dL (31.0-37.0); MCV 98.6 fL (80.0-100.0); Macrocytosis Slight; Mean Platelet Volume 8.9; Monocytes # (A) 0.3 k/uL (0-1.0); Monocytes % (A) 5 %; Neutrophils # (A) 4.9 k/uL (1.3-7.7); Neutrophils % (A) 74 %; Platelet Count 228 k/uL (150-450); RBC 3.47 m/uL (3.80-5.40); RDW 16.7 % (11.5-15.5); WBC 6.7 k/uL (3.8-10.6)
[2019-04-12 07:11] LABS: INR 1.1 (<1.2); Prothrombin Time 10.8 sec (9.0-12.0)
[2019-04-12 07:25] LABS: Calcium 9.4 mg/dL (8.4-10.2); Potassium 4.8 mmol/L (3.5-5.1)
[2019-04-12] MEDS: CALCIUM ACETATE 667 MG TAB PO SCH ×3 (08:42→17:37)
[2019-04-12] MEDS: INSULIN ASPART (NovoLOG) 100 UNIT/ML VIAL SQ SCH ×3 (08:42→18:39)
[2019-04-12] MEDS ORDERED: SODIUM CHLORIDE 0.9% 1,000 ML in EMPTY BAG 1 BAG IV ONE (08:53)
[2019-04-12] MEDS ORDERED: ALPRAZolam 0.25 MG TAB PO PRN (08:53)
[2019-04-12] MEDS ORDERED: ATORVASTATIN 80 MG TAB PO STA (08:53)
[2019-04-12] MEDS ORDERED: NITROGLYCERIN SL TABS 0.4 MG TAB SUBLINGUAL PRN (08:53)
[2019-04-12] MEDS ORDERED: ASPIRIN 325 MG TAB PO STA (08:53)
[2019-04-12] MEDS ORDERED: ALPRAZolam 0.5 MG TAB PO PRN (08:53)
[2019-04-12] MEDS: CLOPIDOGREL 75 MG TAB PO SCH (08:58)
[2019-04-12] MEDS: busPIRone HCl 5 MG TAB PO SCH ×2 (08:58→20:56)
[2019-04-12] MEDS: ASPIRIN 81 MG PO SCH (08:58)
[2019-04-12] MEDS: FAMOTIDINE 20 MG TAB PO SCH (08:58)
[2019-04-12] MEDS: ESCITALOPRAM 20 MG TAB PO SCH (08:58)
[2019-04-12] MEDS: amLODIPine 2.5 MG TAB PO SCH (08:59)
[2019-04-12] MEDS: DOCUSATE 100 MG CAP PO SCH ×2 (08:59→20:56)
[2019-04-12] MEDS ORDERED: LIDOCAINE 1% INJ 10MG/ML (20 ML MDV) ONE (09:51)
[2019-04-12] MEDS ORDERED: IV FLUID CONTINUATION 300 ML IV ONE (10:15)
[2019-04-12] MEDS ORDERED: MIDAZOLAM 2 MG/2 ML VIAL IV ONE (11:05)
[2019-04-12] MEDS ORDERED: LIDOCAINE 1% INJ 10MG/ML (20 ML MDV) SQ ONE (11:08)
[2019-04-12] MEDS ORDERED: NITROGLYCERIN 1000MCG/10ML SYRINGE INTRACORON ONE (11:17)
[2019-04-12] MEDS ORDERED: IOPAMIDOL-370 100ML BTL INJ ONE (11:20)
[2019-04-12] MEDS ORDERED: RX INFO: IV CONTRAST WAS GIVEN 1 EACH MISC MISCELLANE PRN (11:47)
[2019-04-12 12:08] LABS: Glucose,Whole Blood 73 mg/dL (75-99)
[2019-04-12] MEDS: HEPARIN SODIUM,PORCINE 5,000 UNIT/ML 1 ML VIAL SQ SCH ×2 (12:19→20:56)
[2019-04-12] MEDS: SODIUM CHLORIDE 0.9% 1,000 ML IV SCH (12:20)
--- NOTE | 2019-04-12 12:29 | CC ---
CARDIAC CATHETERIZATION REPORT DATE OF SERVICE: 04/12/2019. PROCEDURE: Left heart catheterization and coronary angiography. PERFORMED BY: Dr. Ruthie Jc. Moderate conscious sedation time was 18 minutes. Patient was administered Versed. Oxygen saturation, hemodynamics and EKG were monitored closely. CLINICAL INFORMATION: Mrs. Ethel Marrufo is a 63-year-old lady with end-stage renal disease on hemodialysis. She has diabetes, hypertension, hyperlipidemia, sick sinus syndrome with a dual-chamber permanent pacemaker. She has had multiple interventions of the LAD diagonal as well as the circumflex marginal. She had dilatation of the diagonal branch, multiple stents in the LAD and also circumflex marginal. On of this month, she presented with a non- ST elevation CO, underwent stenting of the LAD within 2 previously placed stent in between the stents and she had a good result. She was discharged uneventfully but came back to the hospital with chest pain had a troponin elevation without a clear-cut pattern to suggest acute injury. She was advised restudy given the recent intervention. Risks, benefits, options, rationale were explained. The circumflex marginal also was totally occluded at the site of stenting and could not be opened last time. The diagonal branch which was dilated was also jailed between the stent and there was sluggish flow. The patient's clinical presentation suggests probably her troponin rise also is related to the recent hospitalization, but given her ongoing symptoms, she was advised a repeat study. PROCEDURE NOTE: Under local anesthesia and strict aseptic precautions, a 6[place] introducer was placed in the right femoral artery. Using standard Linette catheters, I performed coronary angiography and a same right catheter was used to check LV pressures. LV gram was not performed. Patient tolerated procedure well. The sheath was taken out and Angio-Seal device used to secure hemostasis and she was sent to the room in a stable condition. CARDIAC CATHETERIZATION FINDINGS: The left ventricular end-diastolic pressure was about 15 mmHg without gradient across aortic valve. CORONARY ANGIOGRAPHY FINDINGS: RIGHT CORONARY ARTERY: Technically a dominant vessel, has minor irregularities. No significant disease. Distally, it bifurcates into a large PDA and PLV, both of which supply a sizable amount of myocardium. LEFT MAIN CORONARY ARTERY: This is a long patent disease-free vessel that bifurcates into LAD and circumflex. The left main itself is free of significant disease. LEFT ANTERIOR DESCENDING CORONARY ARTERY: Good caliber vessel extends along the anterior wall, gives off septal and diagonal branches. One of the diagonal branches which was dilated previously is now jailed. The mid LAD that was stented by Dr. Cleveland on the is widely patent. Distal LAD has diffuse disease. No significant disease overall. No critical disease overall. There is mild diffuse disease in the distal 1/2 of the vessel, but the stented segments are patent with brisk flow. LEFT POSTERIOR CIRCUMFLEX CORONARY ARTERY: Nondominant vessel, gives off a first obtuse marginal that is totally occluded at the site of previous stenting and could not be opened up last time. Circumflex that continues in the AV groove is free of significant disease, has minor irregularities. RIGHT CORONARY ARTERY: Dominant vessel. No significant disease. Distally it bifurcates into PDA and PLV. The PLV has about a 40% lesion. PDA is free of significant disease. No significant disease in the dominant RCA. LEFT VENTRICULOGRAM: Left ventriculogram was not performed. FINAL IMPRESSION: This patient has a total occlusion of diagonal branch that was dilated, but this is only 2 mm or less. The first obtuse marginal is totally occluded. The recently stented LAD is widely patent with good flow. RCA has no significant disease. Filling pressures are acceptable and there is no gradient across aortic valve. RECOMMENDATIONS: Findings were discussed with the patient at length. No family is available. We will pursue medical therapy and she will be discharged hopefully in the next 24 to 48 hours. Discussed my thoughts in detail with the patient, but there was no family available. MMODL / IJN: [id number] /
--- NOTE | 2019-04-12 14:35 | P.PN ---
Subjective Progress Note Date: 04/12/19 This is a 63-year-old obese female patient of Drs. Gar, JAE Jc, Mayank with multiple medical problem was known to have end-stage kidney disease on hemodialysis Friday, coronary artery disease and prior coronary artery stenting, diabetes type 2 on insulin pump, dyslipidemia, history of permanent pacemaker, atrial fibrillation. Patient was last admitted in July 2018 which time she was seen for possible TIA and severe hyperkalemia and has been residing at [facility] for subacute rehab due to fracture of the right tibia. Patient was recently admitted for chest pain and underwent cardiac cath on 04/04/2019 where stenting of the LAD and PTCA of the OM branch was done. Patient was discharged on 04/06/19 and comes back yesterday with complaints of chest pain. EKG was done that suggested an undetermined rhythm with widened QRS nonspecific T waves but no active ST elevation was noted that suggested a hemoglobin of 10.4 troponin elevated at 13.4 hemoglobin of 10.4. Patient was admitted for chest pain and evaluation with cardiology continue heparin drip until seen by cardiology keep patient nothing by mouth and examined bedside no events overnight vitals this morning with temperature 98.8. 58 blood pressure 123/65 oxygen saturation 93% on room air patient plans to get hemodialysis done on Friday. Cardiology evaluated the patient consider it could be angina event mother leak in troponin could be related to the recent cath currently stable on nitro paste and IV heparin with no plan to undergo cardiac cath associated 04/12: Patient is seen today on the cardiac stepdown unit. Patient is currently on heparin drip and scheduled for heart catheterization late this morning with Dr. JAE Jc. Repeat blood work reveals hemoglobin 10.5, sodium 132, chloride 92, BUN 48 creatinine 8.36. Blood sugars running between 73 and 152. Patient is scheduled for hemodialysis following heart catheterization. Anticipate she'll probably be ready for discharge back to [facility] tomorrow. Review of Systems Constitutional: Denies chills, Denies fever, Denies lethargy, Denies malaise, Denies poor appetite, Denies weakness, Denies weight loss Eyes: denies decreased vision, denies diplopia, denies discharge, denies pain Ears, nose, mouth and throat: Denies dental pain, Denies headache, Denies nasal discharge, Denies nose pain Cardiovascular: endorses chest pain under breast , Denies decreased exercise tolerance, Denies edema, Denies high blood pressure, Denies irregular heart beat, Denies palpitations, Denies paroxysmal nocturnal dyspnea, Denies rapid heart beat, Denies shortness of breath Respiratory: Denies congestion, Denies cough, Denies cough with sputum, Denies dyspnea, Denies home oxygen, Denies wheezing Gastrointestinal: Denies abdominal pain, Denies change in bowel habits, Denies coffee ground emesis, Denies early satiety, Denies excessive gas, Denies heartburn, Denies hematemesis, Denies hematochezia, Denies loss of appetite, Denies nausea, Denies vomiting Genitourinary: Denies dysuria, Denies flank pain, Denies kidney stones, Denies menorrhagia, Denies urgency, Denies urinary frequency Musculoskeletal: Endorses gait dysfunction, Denies limitation of motion, Denies morning stiffness, Denies muscle cramps Integumentary: Denies rash, Denies wounds, Denies brittle nails, Denies change in hair/nails, Denies darkening of skin Neurological: Endorses balance difficulties, Denies change in speech, Denies double vision, Denies gait dysfunction, Denies loss of vision, Denies motor disturbance, Denies numbness, Denies paralysis, Denies paresthesias, Denies seizures Psychiatric: Denies anxiety, Denies depression Endocrine: Denies excessive sweating, Denies excessive thirst, Denies high blood sugars, Denies palpitations Hematologic/Lymphatic: Denies easy bruising, Denies lymphadenopathy Objective - Vital Signs Vital signs: Vital Signs Temp 97.5 F L 04/12/19 04:00 Pulse 60 04/12/19 04:00 Resp 16 04/12/19 04:00 BP 115/57 04/12/19 04:00 Pulse Ox 98 04/12/19 04:00 Intake & Output 04/11/19 04/12/19 04/12/19 18:59 06:59 18:59 Intake Total 170.309 182.930 Output Total 0 Balance 170.309 182.930 Intake: Intake, IV Titration 50.309 182.930 Amount Heparin Sod,Pork in 0.45% 50.309 182.930 NaCl 25,000 unit In 0.45 % NaCl 1 250ml.bag @ 10. 204 UNITS/KG/HR 10 mls/hr IV .Q24H [facility] Rx#: [id number] Oral 120 Output: Urine 0 - Exam Constitutional General appearance: cooperative, no acute distress, obese patient resting comfortably in bed. - EENT Eyes: anicteric sclerae, PERRLA, normal appearance ENT: hearing grossly normal - Neck Neck: no lymphadenopathy, normal ROM, no other, no rigidity, no stridor, no thyromegaly - Respiratory Respiratory: bilateral: CTA, negative: diminished, dullness, rales, rhonchi - Cardiovascular Rhythm: regular Heart sounds: normal: S1, S2 Abnormal Heart Sounds: 3 / 6 systolic murmur, no diastolic murmur, no rub, no S3 Gallop, no S4 Gallop, no click, no other - Gastrointestinal General gastrointestinal: normal bowel sounds, soft and nontender - Integumentary Integumentary: no rash - Neurologic Neurologic: CNII-XII intact - Musculoskeletal Musculoskeletal: Gait not assessed, strength equal bilaterally - Psychiatric Psychiatric: A&O x's 3, appropriate affect - Labs CBC & Chem 7: 04/12/19 06:37 04/12/19 06:37 Labs: Abnormal Lab Results - Last 24 Hours (Table) 04/11/19 04/11/19 04/11/19 Range/Units 12:51 13:13 13:31 RBC (3.80-5.40) m/uL Hgb (11.4-16.0) gm/dL MCHC (31.0-37.0) g/dL RDW (11.5-15.5) % Lymphocytes # (1.0-4.8) k/uL APTT (22.0-30.0) sec Sodium (137-145) mmol/L Chloride (98-107) mmol/L BUN (7-17) mg/dL Creatinine (0.52-1.04) mg/dL Glucose (74-99) mg/dL POC Glucose (mg/dL) 62 L 52 L 59 L (75-99) mg/dL 04/11/19 04/11/19 04/11/19 Range/Units 13:48 14:06 17:00 RBC (3.80-5.40) m/uL Hgb (11.4-16.0) gm/dL MCHC (31.0-37.0) g/dL RDW (11.5-15.5) % Lymphocytes # (1.0-4.8) k/uL APTT (22.0-30.0) sec Sodium (137-145) mmol/L Chloride (98-107) mmol/L BUN (7-17) mg/dL Creatinine (0.52-1.04) mg/dL Glucose (74-99) mg/dL POC Glucose (mg/dL) 67 L 70 L 72 L (75-99) mg/dL 04/11/19 04/12/19 04/12/19 Range/Units 20:10 01:24 06:14 RBC (3.80-5.40) m/uL Hgb (11.4-16.0) gm/dL MCHC (31.0-37.0) g/dL RDW (11.5-15.5) % Lymphocytes # (1.0-4.8) k/uL APTT 45.0 H (22.0-30.0) sec Sodium (137-145) mmol/L Chloride (98-107) mmol/L BUN (7-17) mg/dL Creatinine (0.52-1.04) mg/dL Glucose (74-99) mg/dL POC Glucose (mg/dL) 199 H 152 H (75-99) mg/dL 04/12/19 04/12/19 Range/Units 06:37 06:37 RBC 3.47 L (3.80-5.40) m/uL Hgb 10.5 L (11.4-16.0) gm/dL MCHC 30.5 L (31.0-37.0) g/dL RDW 16.7 H (11.5-15.5) % Lymphocytes # 0.8 L (1.0-4.8) k/uL APTT (22.0-30.0) sec Sodium 132 L (137-145) mmol/L Chloride 92 L (98-107) mmol/L BUN 48 H (7-17) mg/dL Creatinine 8.36 H* (0.52-1.04) mg/dL Glucose 122 H (74-99) mg/dL POC Glucose (mg/dL) (75-99) mg/dL Assessment and Plan Plan: 1. Acute substernal chest pain with recent Acute non-ST elevated myocardial infarction status post drug acute stenting of LAD and PTCA of OM branch of circumflex. Currently on heparin drip cardiology consult troponin elevation likely secondary to recent cardiac catheterization. Continue aspirin, Plavix, amlodipine. Patient is not on a beta uri will discuss with patient prior to initiating. Patient is scheduled for repeat heart catheterization today. 2. History of coronary artery disease with prior stenting of the LAD. 3. End-stage renal disease on hemodialysis Friday. Patient missed dialysis treatment on Friday. Nephrology consult with plan for hemodialysis scheduled for t today after heart catheterization. Continue Nephrocaps, PhosLo. 4. Hypertension. Continue amlodipine 2.5 mg daily, Lasix 20 mg twice daily 5. Hyperlipidemia. Continue atorvastatin 80 mg at bedtime 6. Gastroesophageal reflux disease and GI prophylaxis. Continue Pepcid daily. 7. Diabetes mellitus type 2, insulin requiring. Levemir 320 units at bedtime, NovoLog 10 units 3 times daily and NovoLog scale. 8. Generalized anxiety disorder and recurrent depression. Continue BuSpar, Lexapro. 9. DVT prophylaxis. Heparin scbid . 10 history of permanent pacemaker 11 history of gastric sleeve and lap band in the past, no complications Discharge plan: Return to [facility] most likely on Friday Impression and plan of care have been directed as dictated by the signing physician. Emely Contreras nurse practitioner acting as scribe for signing physician.
[2019-04-12 17:28] LABS: Glucose,Whole Blood 95 mg/dL (75-99)
[2019-04-12 20:29] LABS: Glucose,Whole Blood 218 mg/dL (75-99)
[2019-04-12] MEDS: ATORVASTATIN 80 MG TAB PO SCH (20:56)
[2019-04-12] MEDS: MELATONIN 5 MG TABLET PO SCH (20:56)
[2019-04-12] MEDS: INSULIN DETEMIR (LEVEMIR) 100 UNIT/ML SYR SQ SCH (20:58)
[2019-04-12] MEDS: LOSARTAN 50 MG TAB PO SCH (21:00)
[2019-04-12] MEDS ORDERED: FOLIC ACID-VIT B COMPLEX-VIT C 1 CAP PO SCH (21:00)
--- NOTE | 2019-04-12 21:29 | PN ---
PROGRESS NOTE Patient is seen for followup for end-stage renal disease. She is scheduled for hemodialysis today. Patient is going for cardiac catheterization. She was seen this morning, blood pressure was 130/60, heart rate of 60 per minute, patient is afebrile. Examination of the heart S1, S2. Examination of the lungs, bilateral breath sounds are heard. Abdomen is soft, obese, nontender. Examination of lower extremities shows no significant edema. LABS: Show sodium 132, potassium 4.8, chloride 92, BUN 48, creatinine 8.3, hemoglobin 10.5. ASSESSMENT: 1. End-stage renal disease, on hemodialysis on a Friday, Friday, Friday schedule. Scheduled for hemodialysis today. 2. Non ST elevation myocardial infarction, scheduled for cardiac cath today. 3. Metabolic bone disease. 4. Anemia with end-stage renal disease. PLAN: Hemodialysis today, UF of about 2-3 L as tolerated. MMODL / IJN: [id number] /
[2019-04-13 04:26] VITALS: PULSE 60
[2019-04-13] MEDS: LEVOTHYROXINE 75 MCG TAB PO SCH (06:20)
[2019-04-13] MEDS: FAMOTIDINE 20 MG TAB PO SCH (06:20)
[2019-04-13] MEDS: LEVOTHYROXINE 100 MCG TAB PO SCH (06:20)
[2019-04-13] MEDS: SODIUM CHLORIDE 0.9% 1,000 ML IV SCH (06:21)
[2019-04-13] MEDS: NITROGLYCERIN OINT 1 INCH/GM PACKET TOPICAL SCH ×2 (06:23→11:42)
[2019-04-13 07:10] LABS: Anisocytosis Slight; Basophils # (A) 0.1 k/uL (0-0.2); Basophils % (A) 1 %; Eosinophils # (A) 0.3 k/uL (0-0.7); Eosinophils % (A) 4 %; HCT 33.9 % (34.0-46.0); HGB 10.3 gm/dL (11.4-16.0); Hypochromasia Moderate; Lymphocytes # (A) 0.7 k/uL (1.0-4.8); Lymphocytes % (A) 11 %; MCH 30.2 pg (25.0-35.0); MCHC 30.3 g/dL (31.0-37.0); MCV 99.7 fL (80.0-100.0); Macrocytosis Slight; Mean Platelet Volume 8.3; Monocytes # (A) 0.4 k/uL (0-1.0); Monocytes % (A) 7 %; Neutrophils # (A) 4.4 k/uL (1.3-7.7); Neutrophils % (A) 74 %; Platelet Count 183 k/uL (150-450); RDW 17.1 % (11.5-15.5); WBC 5.9 k/uL (3.8-10.6)
[2019-04-13 07:31] LABS: Potassium 4.8 mmol/L (3.5-5.1)
[2019-04-13 07:39] LABS: Glucose,Whole Blood 208 mg/dL (75-99)
[2019-04-13] MEDS: ESCITALOPRAM 20 MG TAB PO SCH (08:23)
[2019-04-13] MEDS: CLOPIDOGREL 75 MG TAB PO SCH (08:24)
[2019-04-13] MEDS: amLODIPine 2.5 MG TAB PO SCH (08:24)
[2019-04-13] MEDS: busPIRone HCl 5 MG TAB PO SCH (08:24)
[2019-04-13] MEDS: ASPIRIN 81 MG PO SCH (08:24)
[2019-04-13] MEDS: FOLIC ACID-VIT B COMPLEX-VIT C 1 CAP PO SCH (08:24)
[2019-04-13] MEDS: DOCUSATE 100 MG CAP PO SCH (08:24)
[2019-04-13] MEDS: INSULIN ASPART (NovoLOG) 100 UNIT/ML VIAL SQ SCH (08:25)
[2019-04-13] MEDS: CALCIUM ACETATE 667 MG TAB PO SCH (08:25)
[2019-04-13] MEDS: HEPARIN SODIUM,PORCINE 5,000 UNIT/ML 1 ML VIAL SQ SCH (08:28)
[2019-04-13] MEDS: LOSARTAN 50 MG TAB PO SCH (10:36)
[2019-04-13 10:37] VITALS: BP 122/60; RESP 16; TEMP 97.7
--- NOTE | 2019-04-13 11:23 | P.DS ---
Providers Date of admission: 04/09/19 15:43 Expected date of discharge: 04/13/19 Attending physician: Delmi Goel MD Consults: 04/09/19 15:43 Consult Physician Urgent Consulting Provider: Jeromy Smith Consult Reason/Comments: nstemi Do you want consulting provider notified?: Already Contacted 04/10/19 13:18 Consult Physician Routine Consulting Provider: Tate Souza Consult Reason/Comments: ESRD, HD Do you want consulting provider notified?: Yes Primary care physician: Kimberli Gar [facility] Course: This is a 63-year-old obese female patient of Drs. Gar, JAE Jc, Mayank with multiple medical problem was known to have end-stage kidney disease on hemodialysis Friday, coronary artery disease and prior coronary artery stenting, diabetes type 2 on insulin pump, dyslipidemia, history of permanent pacemaker, atrial fibrillation. Patient was last admitted in July 2018 which time she was seen for possible TIA and severe hyperkalemia and has been residing at [facility] for subacute rehab due to fracture of the right tibia. Patient was recently admitted for chest pain and underwent cardiac cath on 04/04/2019 where stenting of the LAD and PTCA of the OM branch was done. Patient was discharged on 04/06/19 and comes back yesterday with complaints of chest pain. EKG was done that suggested an undetermined rhythm with widened QRS nonsp ecific T waves but no active ST elevation was noted that suggested a hemoglobin of 10.4 troponin elevated at 13.4 hemoglobin of 10.4. Patient was admitted for chest pain and evaluation with cardiology continue heparin drip until seen by cardiology keep patient nothing by mouth and examined bedside no events overnight vitals this morning with temperature 98.8. 58 blood pressure 123/65 oxygen saturation 93% on room air patient plans to get hemodialysis done on Friday. Cardiology evaluated the patient consider it could be angina event mother leak in troponin could be related to the recent cath currently stable on nitro paste and IV heparin with no plan to undergo cardiac cath associated 04/12: Patient is seen today on the cardiac stepdown unit. Patient is currently on heparin drip and scheduled for heart catheterization late this morning with Dr. JAE Jc. Repeat blood work reveals hemoglobin 10.5, sodium 132, chloride 92, BUN 48 creatinine 8.36. Blood sugars running between 73 and 152. Patient is scheduled for hemodialysis following heart catheterization. Anticipate she'll probably be ready for discharge back to [facility] tomorrow. 04/13: Patient underwent heart catheterization yesterday with Dr. JAE Jc the phone total occlusion of the diagonal branch was dilated but this is only 2 mm or less. First obtuse marginal is totally occluded. Recently stented LAD is w idely patent. RCA is no significant disease. Filling pressures are acceptable no gradient across aortic valve. Plan is for medical management. Patient is currently chest pain-free. She has been afebrile, blood pressure 121/58, pulse ox 98% on room air, heart rate 60. cardiac monitor is ventricle paced. Repeat lab work reveals hemoglobin 10.3, sodium 135, potassium 4.8, BUN 29 creatinine 5.67. Blood sugars 208 04/18/2017. Blood sugars elevated due to decreased insulin dosing as patient was nothing by mouth yesterday. Patient will be discharged back to [facility] today under the care of Dr. Gar, in stable condition. Discharge diagnoses: 1. Acute substernal chest pain secondary to unstable angina with recent Acute non-ST elevated myocardial infarction status post drug acute stenting of LAD and PTCA of OM branch of circumflex. 2. History of coronary artery disease with prior stenting of the LAD. 3. End-stage renal disease on hemodialysis Friday. 4. Hypertension. 5. Hyperlipidemia. 6. Gastroesophageal reflux disease 7. Diabetes mellitus type 2, insulin requiring. 8. Generalized anxiety disorder and recurrent depression. 9. History of permanent pacemaker 10. History of gastric sleeve and lap band in the past, no complications Discharge plan: Return to [facility] under the care of Dr. Gar. Impression and plan of care have been directed as dictated by the signing physician. Emely Contreras nurse practitioner acting as scribe for signing physician. Patient Condition at Discharge: Good Plan - Discharge Summary Discharge Rx Participant: No New Discharge Prescriptions: New Losartan [Cozaar] 50 mg PO DAILY tab Levothyroxine Sodium [Synthroid] 75 mcg PO DAILY@0600 tab Continue Famotidine [Pepcid] 20 mg PO DAILY@0600 Atorvastatin [Lipitor] 80 mg PO HS@2100 Calcium Acetate [PhosLo] 667 mg PO AC-TID Acetaminophen Tab [Tylenol] 500 mg PO Q6H PRN PRN Reason: Pain Insulin Lispro [humaLOG Kwikpen] See Protocol SQ ACHS Insulin Lispro [humaLOG Kwikpen] 12 unit SQ AC-TID Docusate Sodium [Dok] 100 mg PO BID@0900,2100 Furosemide [Lasix] 20 mg PO BID@0600,1200 busPIRone HCL 5 mg PO BID@0900,2100 Lidocaine-Prilocaine Cream [Emla Cream 2.5%/2.5%] 1 applic TOPICAL MOWEFR PRN PRN Reason: DIALYSIS Levothyroxine Sodium [Synthroid] 175 mcg PO DAILY@0600 Insulin Glargine,Hum.rec.anlog [Basaglar Kwikpen U-100] 50 unit SQ HS@2100 Ondansetron [Zofran] 4 mg PO Q6H PRN PRN Reason: Nausea Magnesium Hydroxide [Milk of Magnesia] 2,400 mg PO DAILY PRN PRN Reason: Constipation Bisacodyl [Dulcolax] 10 mg RECTAL HS PRN PRN Reason: Constipation Folic Acid-Vit B Complex-Vit C [Nephrocaps] 1 cap PO MOWEFR@2100 Folic Acid-Vit B Complex-Vit C [Nephrocaps] 1 mg PO SUTUTHSA@0900 Melatonin 10 mg PO HS@2100 Escitalopram [Lexapro] 20 mg PO DAILY@0900 Aspirin EC [Ecotrin Low Dose] 81 mg PO DAILY@0900 Nitroglycerin Sl Tabs [Nitrostat] 0.4 mg SUBLINGUAL Q5M PRN tab PRN Reason: Chest Pain amLODIPine [Norvasc] 2.5 mg PO DAILY@0900 Clopidogrel [Plavix] 75 mg PO DAILY@0900 Hydrocodone/Acetaminophen [[place] 10-325] 1 tab PO BID PRN PRN Reason: pain Na Phos,M-B/Na Phos,Di-Ba [Fleet Adult] 133 ml RECTAL ONCE PRN PRN Reason: Constipation LORazepam [Ativan] 1 mg PO DAILY PRN #3 tab PRN Reason: Agitation Or Acute Anxiety Discharge Medication List Famotidine [Pepcid] 20 mg PO DAILY@0600 04/29/14 [History] Atorvastatin [Lipitor] 80 mg PO HS@2100 12/27/16 [History] Calcium Acetate [PhosLo] 667 mg PO AC-TID 09/02/18 [History] Acetaminophen Tab [Tylenol] 500 mg PO Q6H PRN 01/11/19 [History] Docusate Sodium [Dok] 100 mg PO BID@0900,209901/11/19 [History] Furosemide [Lasix] 20 mg PO BID@0600,1200 01/11/19 [History] Insulin Glargine,Hum.rec.anlog [Basaglar Kwikpen U-100] 50 unit SQ HS@209901/11/19 [History] Insulin Lispro [humaLOG Kwikpen] 12 unit SQ AC-TID 01/11/19 [History] Insulin Lispro [humaLOG Kwikpen] See Protocol SQ ACHS 01/11/19 [History] Levothyroxine Sodium [Synthroid] 175 mcg PO DAILY@0600 01/11/19 [History] Lidocaine-Prilocaine Cream [Emla Cream 2.5%/2.5%] 1 applic TOPICAL MOWEFR PRN 01/11/19 [History] busPIRone HCL 5 mg PO BID@00,209901/11/19 [History] Aspirin EC [Ecotrin Low Dose] 81 mg PO DAILY@0904/02/19 [History] Bisacodyl [Dulcolax] 10 mg RECTAL HS PRN 04/02/19 [History] Escitalopram [Lexapro] 20 mg PO DAILY@0904/02/19 [History] Folic Acid-Vit B Complex-Vit C [Nephrocaps] 1 cap PO MOWEFR@209904/02/19 [History] Folic Acid-Vit B Complex-Vit C [Nephrocaps] 1 mg PO SUTUTHSA@89904/02/19 [History] Magnesium Hydroxide [Milk of Magnesia] 2,400 mg PO DAILY PRN 04/02/19 [History] Melatonin 10 mg PO HS@209904/02/19 [History] Ondansetron [Zofran] 4 mg PO Q6H PRN 04/02/19 [History] Nitroglycerin Sl Tabs [Nitrostat] 0.4 mg SUBLINGUAL Q5M PRN tab 04/06/19 [Rx] Clopidogrel [Plavix] 75 mg PO DAILY@0900 04/09/19 [History] Hydrocodone/Acetaminophen [[place] 10-325] 1 tab PO BID PRN 04/09/19 [History] Na Phos,M-B/Na Phos,Di-Ba [Fleet Adult] 133 ml RECTAL ONCE PRN 04/09/19 [History] amLODIPine [Norvasc] 2.5 mg PO DAILY@0900 04/09/19 [History] LORazepam [Ativan] 1 mg PO DAILY PRN #3 tab 04/13/19 [Rx] Levothyroxine Sodium [Synthroid] 75 mcg PO DAILY@0600 tab 04/13/19 [Rx] Losartan [Cozaar] 50 mg PO DAILY tab 04/13/19 [Rx] Follow up Appointment(s)/Referral(s): Kimberli Gar MD [Primary Care Provider] - 1 Week (at [facility]) Activity/Diet/Wound Care/Special Instructions: [facility] Discharge Disposition: TRANSFER TO SNF/ECF
--- NOTE | 2019-04-13 11:57 | P.PN ---
Subjective Progress Note Date: 04/13/19 This is a 63-year-old obese female patient of Dr. AJE Jc, with multiple medical problem was known to have end-stage kidney disease on hemodialysis Friday, coronary artery disease and prior coronary artery stenting, diabetes type 2 on insulin pump, dyslipidemia, sick sinus s yndrome with history of permanent pacemaker, hypertension, chronic persistent atrial fibrillation. Patient had multiple interventions of the LAD diagonal as well as the circumflex, she had dilated dictation of the diagonal branch and multiple stents in the LAD as well as circumflex. On the of this month she presented with a non-ST elevation myocardial infarction and underwent stenting of the LAD with good results. She was discharged home and repeat presented back to the hospital with symptoms of chest discomfort and abnormality in troponin. Therefore the patient again underwent a cardiac catheterization yesterday by Dr. Jovana Jc, the patient has a total occlusion of the diagonal branch that was dilated, but this was only a 2 mm or less according to the documentation. The first obtuse marginal was totally occluded. The recently stented LAD was widely patent with good flow. RCA has no significant disease. Plan was to continue current medical therapy, patient was seen and examined this morning, denied any chest pain or difficulty in breathing. Blood pressure 122/60 with a heart rate in the 60s. Blood cell count 5.9, hemoglobin 10.3, platelet count 183. Sodium 135, potassium 4.8, BUN 29, creatinine 5.6. Objective - Vital Signs Vital signs: Vital Signs Temp 97.7 F 04/13/19 10:36 Pulse 60 04/13/19 10:36 Resp 16 04/13/19 10:36 BP 122/60 04/13/19 10:36 Pulse Ox 96 04/13/19 10:36 Intake & Output 04/12/19 04/13/19 04/13/19 18:59 06:59 18:59 Intake Total 1175 200 500 Output Total 0 3250 Balance 1175 -3050 500 Weight 91.4 kg Intake: IV 75 Intake, IV Titration 300 Amount Sodium Chloride 0.9% 1, 300 000 ml In Empty Bag 1 bag @ 1 ML/KG/HR 92.9 mls/hr IV .[id number] ONE Rx#: [id number] Oral 800 200 500 Output: Urine 0 250 Hemodialysis 3000 Other: # Voids 0 1 0 # Bowel Movements 1 - Exam Gen: This is a 63-year-old obese female. Patient is lying flat in bed and appears to be comfortable. No respiratory distress is noted. HEENT: Head is atraumatic, normocephalic. Pupils equal, round. Sclerae is anicteric. NECK: Supple. No JVD. No lymphadenopathy. No thyromegaly. LUNGS: Clear to auscultation. No wheezes or rhonchi. No intercostal retractions. HEART: Regular rate and rhythm. Systolic murmur. ABDOMEN: Soft. Bowel sounds are present. No masses. No tenderness. EXTREMITIES: No pedal edema. No calf tenderness. Right groin soft, no evidence of any hematoma. NEUROLOGICAL: Patient is awake, alert and oriented x3. Cranial nerves 2 through 12 are grossly intact. - Labs CBC & Chem 7: 04/13/19 05:35 04/13/19 05:35 Labs: Abnormal Lab Results - Last 24 Hours (Table) 04/12/19 04/12/19 04/13/19 Range/Units 12:06 20:27 05:35 RBC 3.40 L (3.80-5.40) m/uL Hgb 10.3 L (11.4-16.0) gm/dL Hct 33.9 L (34.0-46.0) % MCHC 30.3 L (31.0-37.0) g/dL RDW 17.1 H (11.5-15.5) % Lymphocytes # 0.7 L (1.0-4.8) k/uL Sodium (137-145) mmol/L BUN (7-17) mg/dL Creatinine (0.52-1.04) mg/dL Glucose (74-99) mg/dL POC Glucose (mg/dL) 73 L 218 H (75-99) mg/dL 04/13/19 04/13/19 Range/Units 05:35 07:36 RBC (3.80-5.40) m/uL Hgb (11.4-16.0) gm/dL Hct (34.0-46.0) % MCHC (31.0-37.0) g/dL RDW (11.5-15.5) % Lymphocytes # (1.0-4.8) k/uL Sodium 135 L (137-145) mmol/L BUN 29 H (7-17) mg/dL Creatinine 5.67 H (0.52-1.04) mg/dL Glucose 216 H (74-99) mg/dL POC Glucose (mg/dL) 208 H (75-99) mg/dL Assessment and Plan Plan: Assessment and Plan: 1. Chest pain with abnormality in troponin, status post cardiac catheterization, medical therapy advised 2. History of coronary artery disease with prior stenting of the LAD. Most recently patient was in the hospital with non-ST elevation SC earlier this month and underwent stenting of the LAD with PTCA of the OM branch of the circumflex 3. End-stage renal disease on hemodialysis Friday. Patient mi ssed dialysis treatment on Friday. 4. Hypertension. 5. Hyperlipidemia. 6. Gastroesophageal reflux disease and GI prophylaxis. 7. Diabetes mellitus type 2, insulin requiring. 8. Generalized anxiety disorder and recurrent depression. Plan Patient may be transferred to ECF today from our perspective. We'll make her a follow-up appointment with Dr. Jovana Jc in the office post discharge.
--- NOTE | 2019-04-13 12:01 | ECHOF ---
Referral Reason:CHEST PAIN MEASUREMENTS -------- HEIGHT: 162.6 cm WEIGHT: 92.5 kg BP: RAP: 5.00 mmHg RVSP: 83.06 mmHg FINDINGS -------- Echo done 04/05: limited study for cp. Overall left ventricular systolic function is moderate-severely impaired with, an EF between 30 - 35 %. Anterseptal Hypokinesis [place] Hypokinesis. 5.0mg OF [place] UTLIZED: 2 OR MORE WALL SEGMENTS NOT VISUALIZED. No regurgitation noted There is moderate to severe pulmonary hypertension. The right ventricular systolic pressure, as measured by Doppler, is 83.06mmHg. CONCLUSIONS -------- 1. Overall left ventricular systolic function is moderate-severely impaired with, an EF between 30 - 35 %. 2. Anterseptal Hypokinesis 3. [place] Hypokinesis. 4. 5.0mg OF Lumason UTLIZED: 2 OR MORE WALL SEGMENTS NOT VISUALIZED. 5. No regurgitation noted 6. There is moderate to severe pulmonary hypertension. 7. The right ventricular systolic pressure, as measured by Doppler, is 83.06mmHg. BUSINESS SERVICES REPRESENTATIVE: Eunice Appiah RDCS
--- NOTE | 2019-04-13 20:57 | PN ---
PROGRESS NOTE The patient is seen for followup for end-stage renal disease. The patient is comfortable. She denies any significant complaints. She tolerated her hemodialysis very well yesterday and she will be discharged today. No complaints of chest pain. Cardiac catheterization done yesterday showed a total occlusion of diagonal branch that was dilated. The first obtuse marginal was also occluded. Further plans from Cardiology to be continued as outpatient with further discussion with family. PHYSICAL EXAMINATION: On examination today, blood pressure was 121/58, heart rate 60 per minute, patient is afebrile. Examination of the heart S1, S2. Examination of the lungs, bilateral breath sounds are heard. Examination lower extremities shows no evidence of edema. ABDOMEN: Soft, nontender. LABS SHOW: Hemoglobin 10.3. Sodium 135, potassium 4.8. ASSESSMENT: 1. End-stage renal disease, on hemodialysis on a Friday, Friday, Friday schedule. 2. Non ohf-AN-cjqbidobi myocardial infarction status post cardiac catheterization with plans to follow up as outpatient with Cardiology, significant stenosis was noted on the cardiac cath with recent stenting of LAD a few weeks ago. 3. Chronic kidney disease mineral bone disorder. PLAN: Follow up for hemodialysis tomorrow as outpatient. MMODL / IJN: [id number] /
== END 2019-04-13 12:58 | DRG 280 ==
LOC: EC 13:07 → 3SCARD 15:43
PROVIDERS: ADMIT Internal Medicine; ATTEND Internal Medicine
PROC: B2111ZZ Fluoroscopy of Multiple Coronary Arteries using Low Osmolar Contrast (ICD-10-PCS; 2019-04-12)
PROC: 5A1D70Z Performance of Urinary Filtration, Intermittent, Less than 6 Hours Per Day (ICD-10-PCS; 2019-04-12)
PROC: 4A023N7 Measurement of Cardiac Sampling and Pressure, Left Heart, Percutaneous Approach (ICD-10-PCS; principal; 2019-04-12 10:15)
DX: I21.4 Non-ST elevation (NSTEMI) myocardial infarction (principal); N18.6 End stage renal disease; I23.7 Postinfarction angina; I12.0 Hypertensive chronic kidney disease with stage 5 chronic kidney disease or end stage renal disease; F33.9 Major depressive disorder, recurrent, unspecified; I48.19 Other persistent atrial fibrillation; I25.110 Atherosclerotic heart disease of native coronary artery with unstable angina pectoris; E88.89 Other specified metabolic disorders; I49.5 Sick sinus syndrome; D63.1 Anemia in chronic kidney disease; F03.90 Unspecified dementia, unspecified severity, without behavioral disturbance, psychotic disturbance, mood disturbance, and anxiety; I25.82 Chronic total occlusion of coronary artery; E11.22 Type 2 diabetes mellitus with diabetic chronic kidney disease; I25.5 Ischemic cardiomyopathy; E78.5 Hyperlipidemia, unspecified; M19.90 Unspecified osteoarthritis, unspecified site; F41.1 Generalized anxiety disorder; E66.9 Obesity, unspecified; K21.9 Gastro-esophageal reflux disease without esophagitis; K59.00 Constipation, unspecified; E07.9 Disorder of thyroid, unspecified; J30.9 Allergic rhinitis, unspecified; I25.2 Old myocardial infarction; Z86.14 Personal history of Methicillin resistant Staphylococcus aureus infection; Z79.899 Other long term (current) drug therapy; Z79.4 Long term (current) use of insulin; Z79.890 Hormone replacement therapy; Z79.82 Long term (current) use of aspirin; Z79.02 Long term (current) use of antithrombotics/antiplatelets; Z91.041 Radiographic dye allergy status; Z88.0 Allergy status to penicillin; Z88.8 Allergy status to other drugs, medicaments and biological substances; Z91.048 Other nonmedicinal substance allergy status; Z86.73 Personal history of transient ischemic attack (TIA), and cerebral infarction without residual deficits; Z99.2 Dependence on renal dialysis; Z90.710 Acquired absence of both cervix and uterus; Z90.49 Acquired absence of other specified parts of digestive tract; Z95.5 Presence of coronary angioplasty implant and graft; Z98.42 Cataract extraction status, left eye; Z98.41 Cataract extraction status, right eye; Z98.890 Other specified postprocedural states; Z87.81 Personal history of (healed) traumatic fracture; Z96.1 Presence of intraocular lens; Z95.828 Presence of other vascular implants and grafts; Z68.32 Body mass index [BMI] 32.0-32.9, adult; Z95.0 Presence of cardiac pacemaker; Z96.41 Presence of insulin pump (external) (internal); Z98.84 Bariatric surgery status; Z87.19 Personal history of other diseases of the digestive system; Z83.3 Family history of diabetes mellitus; Z82.49 Family history of ischemic heart disease and other diseases of the circulatory system
CPT/HCPCS: 36415; 71046; 76705; 80048; 80053; 80061; 83735; 84484; 85025; 85610; 85730; 90935; 93005; 93308; 93458; 96365; 96366; 96376; 99291

== ENCOUNTER 2019-11-05 10:53 | Emergency (ER) | payer MEDICARE, BC, OTHER ==
[2019-11-05 11:08] VITALS: RESP 18
--- NOTE | 2019-11-05 11:40 | CT ---
EXAMINATION TYPE: CT brain wo con DATE OF EXAM: 11/05/2019 COMPARISON: 10/09/2018 HISTORY: Headache, fall from bed. CT DLP: 1079.[address] of the brain was performed. The ventricles, basal cisterns and sulci overlying the cerebral convexities demonstrate mild enlargem ent. Remote insult left temporal lobe. There is no evidence for intracranial hemorrhage or sulcal effacement. There is decreased attenuation about the periventricular white matter and deep white matter of both c erebral hemispheres, compatible with chronic small vessel ischemia. Differential diagnosis does inclu de demyelination. No mass effects are seen.No midline shift. Osseous calvarium is intact. If symptoms persist consider MRI. IMPRESSION: 1. Age related atrophic and chronic small vessel ischemic change without acute intracranial process s een at this time.
--- NOTE | 2019-11-05 11:51 | ED ---
General Adult HPI - General Chief complaint: Fall Stated complaint: fall/head injury Time Seen by Provider: 11/05/19 11:05 Source: patient, EMS, RN notes reviewed Mode of arrival: EMS Limitations: no limitations - History of Present Illness Initial comments: Patient is a pleasant [age]-year-old female presenting to the emergency Department with complaints of moderate headache since a fall. Patient states she did fall out of bed twice on Friday and Friday. Patient did strike her head. No change in mental status. No weakness. Patient states headache is moderate rated 5/10. No neck or back pain. No chest pain or dyspnea. No abdominal pain. Patient does complain of severe discomfort 8/10 right ankle. Patient also has some discomfort of her right foot. Patient is not able to ambulate without assistance. Patient reportedly is on blood thinners. - Related Data Home Medications Medication Instructions Recorded Confirmed Famotidine [Pepcid] 20 mg PO DAILY@0600 04/29/14 04/09/19 Atorvastatin [Lipitor] 80 mg PO HS@209912/27/16 04/09/19 Calcium Acetate [PhosLo] 667 mg PO AC-TID 09/02/18 04/09/19 Acetaminophen Tab [Tylenol] 500 mg PO Q6H PRN 01/11/19 04/09/19 Docusate Sodium [Dok] 100 mg PO BID@0900,209901/11/19 04/09/19 Furosemide [Lasix] 20 mg PO BID@0600,1200 01/11/19 04/09/19 Insulin Glargine,Hum.rec.anlog 50 unit SQ HS@209901/11/19 04/09/19 [Basaglar Kwikpen U-100] Insulin Lispro [humaLOG Kwikpen] 12 unit SQ AC-TID 01/11/19 04/09/19 Insulin Lispro [humaLOG Kwikpen] See Protocol SQ ACHS 01/11/19 04/09/19 Levothyroxine Sodium [Synthroid] 175 mcg PO DAILY@0600 01/11/19 04/09/19 Lidocaine-Prilocaine Cream [Emla 1 applic TOPICAL MOWEFR PRN 01/11/19 04/09/19 Cream 2.5%/2.5%] busPIRone HCL 5 mg PO BID@0900,2100 01/11/19 01/24/20 Aspirin EC [Ecotrin Low Dose] 81 mg PO DAILY@89904/02/19 04/09/19 Escitalopram [Lexapro] 20 mg PO DAILY@89904/02/19 04/09/19 Folic Acid-Vit B Complex-Vit C 1 cap PO MOWEFR@209904/02/19 04/09/19 [Nephrocaps] Folic Acid-Vit B Complex-Vit C 1 mg PO SUTUTHSA@89904/02/19 04/09/19 [Nephrocaps] Magnesium Hydroxide [Milk of 2,400 mg PO DAILY PRN 04/02/19 04/09/19 Magnesia] Melatonin 10 mg PO HS@209904/02/19 04/09/19 Ondansetron [Zofran] 4 mg PO Q6H PRN 04/02/19 04/09/19 bisacodyL [Dulcolax] 10 mg RECTAL HS PRN 04/02/19 04/09/19 Clopidogrel [Plavix] 75 mg PO DAILY@89904/09/19 04/09/19 Na Phos,M-B/Na Phos,Di-Ba [Fleet 133 ml RECTAL ONCE PRN 04/09/19 04/09/19 Adult] amLODIPine [Norvasc] 2.5 mg PO DAILY@89904/09/19 04/09/19 Previous Rx's Medication Instructions Recorded Nitroglycerin Sl Tabs [Nitrostat] 0.4 mg SUBLINGUAL Q5M PRN tab 04/06/19 Hydrocodone/Acetaminophen [[place]o 1 tab PO BID PRN #6 tab 04/13/19 10-325] LORazepam [Ativan] 1 mg PO DAILY PRN #3 tab 04/13/19 Levothyroxine Sodium [Synthroid] 75 mcg PO DAILY@0600 tab 04/13/19 Losartan [Cozaar] 50 mg PO DAILY tab 04/13/19 Allergies Allergy/AdvReac Type Severity Reaction Status Date / Time adhesive Allergy Rash/Hives Verified 04/09/19 16:09 Penicillins Allergy Rash/Hives Verified 04/09/19 16:09 Iodinated Contrast Media AdvReac KIDNEY Verified 04/09/19 16:09 [Iodinated Contrast- Oral FAILURE and IV Dye] metformin AdvReac SUGAR Verified 04/09/19 16:09 LEVEL INCREASE Review of Systems ROS Statement: Those systems with pertinent positive or pertinent negative responses have been documented in the HPI. ROS Other: All systems not noted in ROS Statement are negative. Constitutional: Denies: fever Eyes: Denies: eye pain ENT: Denies: ear pain Respiratory: Denies: cough Cardiovascular: Denies: chest pain Endocrine: Denies: fatigue Gastrointestinal: Denies: abdominal pain Genitourinary: Denies: dysuria Musculoskeletal: Reports: as per HPI. Denies: back pain Skin: Denies: rash Neurological: Reports: as per HPI, headache. Denies: weakness, confusion Past Medical History Past Medical History: Coronary Artery Disease (CAD), Chest Pain / Angina, Dementia, Diabetes Mellitus, Dialysis, Hyperlipidemia, Hypertension, Liver Disease, Myocardial Infarction ([place]), Osteoarthritis (OA), Thyroid Disorder Additional Past Medical History / Comment(s): multiple CA's x18. ischemic cardiomyopathy. 12/29/15 STRESS WNL, ALLERGIC rhinitis,[place], CARDIO-PULMONARY ARREST 07/05/14 vertigo, hypertensive nephrosclerosis, Hepatitis A,Vitamin D deficiency, constipation, hx of a cat bit, fall with broken pelvis Last Myocardial Infarction Date:: 09/2013 History of Any Multi-Drug Resistant Organisms: MRSA, VRE Date of last positivie culture/infection: 11/11/18-VRE; 09/27/17 MRSA MDRO Source:: Urine-VRE; Right Breast-MRSA Past Surgical History: Adenoidectomy, Appendectomy, Cholecystectomy, Heart Catheterization With Stent, Hysterectomy, Tonsillectomy Additional Past Surgical History / Comment(s): mary cataracts, LAP-BAND 2004, Laparoscopic cholecystectomy, FIBULA FX has metal pins in place,Left shoulder surgery, Hemodialysis Cataract bilateral with IOL, fistula and sx to" reroute it",gets dialysis fri-fri-fri. has insulin pump. no bp on left, excisional debreidment rt lower ext., foot surgery Past Anesthesia/Blood Transfusion Reactions: Motion Sickness, Postoperative Nausea & Vomiting (PONV) Additional Past Anesthesia/Blood Transfusion Reaction / Comment(s): blood transfusion-pt stated they gave her medication for a reaction but does'nt rememebr what the reaction was Date of Last Stent Placement:: 2014 Past Psychological History: Anxiety, Bipolar, Depression Past Alcohol Use History: None Reported Past Drug Use History: None Reported - Past Family History Mother Family Medical History: Congestive Heart Failure (CHF), Diabetes Mellitus, Hypertension Father History Unknown: Yes Family Medical History: Diabetes Mellitus Brother(s) Family Medical History: Diabetes Mellitus, Hyperlipidemia Additional Family Medical History / Comment(s): Hypertension chronic kidney disease General Exam Limitations: no limitations General appearance: alert, in no apparent distress Head exam: Present: normocephalic Eye exam: Present: normal appearance, PERRL, EOMI. Absent: nystagmus Neck exam: Present: normal inspection Respiratory exam: Present: normal lung sounds bilaterally Cardiovascular Exam: Present: regular rate, normal rhythm Expanded Peripheral pulses: 2+: Posterior Tibialis (R), Dorsalis Pedis (R) GI/Abdominal exam: Present: soft. Absent: tenderness Extremities exam: Present: full ROM, tenderness (Tenderness and swelling, moderate right lateral ankle. Also mild to moderate right dorsal foot. Minimal tenderness bilateral hips.), other (Motor and sensation intact distally.) Neurological exam: Present: alert, CN II-XII intact. Absent: motor sensory deficit Expanded Neurological exam: Present: protecting the airway Patient oriented to: Present: person, place. Absent: time (Patient believes this is normal) Sensory exam: Lower Extremity Light Touch: Normal Motor strength exam: RUE: 4, LUE: 4, RLE: 4, LLE: 4 Eye Response: (4) open spontaneously Motor Response: (6) obeys commands Verbal Response: (5) oriented Psychiatric exam: Present: normal affect, normal mood Skin exam: Present: other (Ecchymosis right ankle) Course Vital Signs 11/05/19 10:58 Temperature 98.4 F Pulse Rate 73 Respiratory 18 Rate Blood Pressure 137/70 O2 Sat by Pulse 97 Oximetry Procedures - Orthopedic Splinting/Casting Injury #1 Side: right Lower Extremity Injury Location: short leg, ankle Lower Extremity Immobilizer: posterior splint Medical Decision Making - Medical Decision Making Patient reevaluated and updated. Case was discussed with Dr. Gar who is familiar with this patient and agreeable with discharge as long as dialysis can be arranged. Dialysis has been arranged and patient will be sent there. - Radiology Data Radiology results: report reviewed (Computed tomography scan the brain shows no acute process), image reviewed (X-ray right foot and ankle shows old hardware. No acute fracture. X-ray of bilateral hips and pelvis shows inferior pubic rami fracture of uncertain acuity.) Disposition Clinical Impression: Fall, Head injury, Inferior pubic ramus fracture Disposition: HOME SELF-CARE Condition: Stable Additional Instructions: Head directly to dialysis. after dialysis patient can return to [facility]. Ice to right ankle 4 times daily for 20 minutes each time. Please assist with ambulation. Return for worsening symptoms or other concerns or confusion or weakness. Is patient prescribed a controlled substance at d/c from ED?: No Referrals: Kimberli Gar MD [Primary Care Provider] - 1-2 days Time of Disposition: 12:45
--- NOTE | 2019-11-05 12:11 | XR ---
EXAMINATION TYPE: XR Hip Bilateral and AP pelvis DATE OF EXAM: 11/05/2019 COMPARISON: NONE HISTORY: Pain TECHNIQUE: A single AP view of the pelvis is obtained. Two views of the bilateral hip are obtained. FINDINGS: There is diffuse osteopenia. Arthropathy of the hips. Vascular calcifications. There is a d eformity of the right inferior pubic ramus. IMPRESSION: 1. Deformity of the right inferior pubic ramus not seen on the prior exam correlate with point tender ness for acute fracture. CT correlation could BE obtained as clinically warranted.
--- NOTE | 2019-11-05 12:12 | XR ---
EXAMINATION TYPE: XR foot complete RT DATE OF EXAM: 11/05/2019 COMPARISON: NONE HISTORY: Pain TECHNIQUE: Three views are submitted. FINDINGS: The osseous structures are intact. There is no acute fracture or dislocation. Diffuse osteopenia. There is arthropathy of the DIP and MTP joint of the first digit. Vascular calcifications are seen. P ostsurgical change involving the distal fibula. Diffuse soft tissue edema noted. Benign-appearing cys tic change of the calcaneus. Large calcaneal spur. Metallic screw overlying the distal tibia. IMPRESSION: 1. No acute fracture or dislocation. If symptoms persist, follow-up exam in 7 to 10 days could be ob tained. 2. Soft tissue edema. 3. Arthropathy.
--- NOTE | 2019-11-05 12:14 | XR ---
EXAMINATION TYPE: XR ankle complete RT DATE OF EXAM: 11/05/2019 COMPARISON: NONE HISTORY: Pain FINDINGS: Three views of the ankle demonstrate distortion of the ankle mortise which appears chronic. Postsurgi huber changes involving the fibula. There is soft tissue edema. Metallic density seen within the distal tibia could be postsurgical. Chronic appearing deformity of the medial malleolus. Calcaneal spurs an d vascular calcifications noted. IMPRESSION: 1. Soft tissue edema with no acute fracture. 2. Postsurgical changes
[2019-11-05 12:59] VITALS: BP 140/63; PULSE 71; TEMP 98.2
== END 2019-11-05 13:16 | disposition home or self-care (01) ==
LOC: EC 10:53
DX: S32.592A Other specified fracture of left pubis, initial encounter for closed fracture (principal); S32.591A Other specified fracture of right pubis, initial encounter for closed fracture; S09.90XA Unspecified injury of head, initial encounter; S90.01XA Contusion of right ankle, initial encounter; F41.9 Anxiety disorder, unspecified; F31.9 Bipolar disorder, unspecified; E11.9 Type 2 diabetes mellitus without complications; I25.119 Atherosclerotic heart disease of native coronary artery with unspecified angina pectoris; F03.90 Unspecified dementia, unspecified severity, without behavioral disturbance, psychotic disturbance, mood disturbance, and anxiety; E78.5 Hyperlipidemia, unspecified; I10 Essential (primary) hypertension; I25.2 Old myocardial infarction; M19.90 Unspecified osteoarthritis, unspecified site; I25.5 Ischemic cardiomyopathy; E55.9 Vitamin D deficiency, unspecified; Z79.4 Long term (current) use of insulin; Z79.02 Long term (current) use of antithrombotics/antiplatelets; Z79.01 Long term (current) use of anticoagulants; Z79.82 Long term (current) use of aspirin; Z96.41 Presence of insulin pump (external) (internal); Z98.84 Bariatric surgery status; Z95.5 Presence of coronary angioplasty implant and graft; Z98.890 Other specified postprocedural states; Z79.899 Other long term (current) drug therapy; Z86.14 Personal history of Methicillin resistant Staphylococcus aureus infection; Z99.2 Dependence on renal dialysis; Z91.048 Other nonmedicinal substance allergy status; Z88.0 Allergy status to penicillin; Z91.041 Radiographic dye allergy status; Z88.8 Allergy status to other drugs, medicaments and biological substances; W06.XXXA Fall from bed, initial encounter; Y92.003 Bedroom of unspecified non-institutional (private) residence as the place of occurrence of the external cause
CPT/HCPCS: 29515; 70450; 73521; 99284

== ENCOUNTER 2019-11-19 00:30 | Emergency (ER) | payer MEDICARE, OTHER ==
[2019-11-19] MEDS ORDERED: MORPHINE SULFATE 4 MG/ML SYRINGE IM STA (00:46)
--- NOTE | 2019-11-19 00:55 | ED ---
General Adult HPI - General Chief complaint: Fall Stated complaint: Fall Source: patient, EMS, old records reviewed Mode of arrival: EMS - History of Present Illness Initial comments: 64-year-old female presents to the emergency room for a chief complaint of left knee and leg pain. Patient lives in a long-term. Patient reportedly dropped something and then over to pick it up falling on the left leg. She did not hit her head. She did not sustain any other injuries. States she now has bruising noted to her thigh.Patient has no other complaints at this time including shortness of breath, chest pain, abdominal pain, nausea or vomiting, headache, or visual changes. - Related Data Home Medications Medication Instructions Recorded Confirmed Famotidine [Pepcid] 20 mg PO DAILY@0600 04/29/14 11/05/19 Atorvastatin [Lipitor] 80 mg PO HS@209912/27/16 11/05/19 Calcium Acetate [PhosLo] 2,001 mg PO AC-TID 09/02/18 11/05/19 Acetaminophen Tab [Tylenol] 500 mg PO Q6H 01/11/19 11/05/19 Docusate Sodium [Dok] 100 mg PO BID@0900,209901/11/19 11/05/19 Furosemide [Lasix] 20 mg PO BID@0600,1200 01/11/19 11/05/19 Insulin Glargine,Hum.rec.anlog 50 unit SQ HS@209901/11/19 11/05/19 [Basaglar Kwikpen U-100] Insulin Lispro [humaLOG Kwikpen] 12 unit SQ AC-TID 01/11/19 11/05/19 Insulin Lispro [humaLOG Kwikpen] See Protocol SQ ACHS 01/11/19 11/05/19 busPIRone HCL 5 mg PO BID@0900,209901/11/19 11/05/19 Aspirin EC [Ecotrin Low Dose] 81 mg PO DAILY@89904/02/19 11/05/19 Escitalopram [Lexapro] 20 mg PO DAILY@0904/02/19 11/05/19 Folic Acid-Vit B Complex-Vit C 1 cap PO MOWEFR@209904/02/19 11/05/19 [Nephrocaps] Folic Acid-Vit B Complex-Vit C 1 mg PO SUTUTHSA@0900 04/02/19 11/05/19 [Nephrocaps] Melatonin 10 mg PO HS@2100 04/02/19 11/05/19 Ondansetron [Zofran] 4 mg PO Q8H 04/02/19 11/05/19 Clopidogrel [Plavix] 75 mg PO DAILY@0900 04/09/19 11/05/19 amLODIPine [Norvasc] 2.5 mg PO DAILY@0900 04/09/19 11/05/19 Calcium Acetate [Phoslo] 667 mg PO TID PRN 11/05/19 11/05/19 Levothyroxine Sodium [Synthroid] 175 mcg PO MOTUWETHFRSA 11/05/19 11/05/19 Sodium Polystyrene Sulfonate 15 gm PO DIRECTED 11/05/19 11/05/19 Previous Rx's Medication Instructions Recorded Nitroglycerin Sl Tabs [Nitrostat] 0.4 mg SUBLINGUAL Q5M PRN tab 04/06/19 Hydrocodone/Acetaminophen [[place] 1 tab PO BID PRN #6 tab 04/13/19 10-325] LORazepam [Ativan] 1 mg PO DAILY PRN #3 tab 04/13/19 Allergies Allergy/AdvReac Type Severity Reaction Status Date / Time adhesive Allergy Rash/Hives Verified 11/05/19 12:47 Penicillins Allergy Rash/Hives Verified 11/05/19 12:47 Iodinated Contrast Media AdvReac KIDNEY Verified 11/05/19 12:47 [Iodinated Contrast- Oral FAILURE and IV Dye] metformin AdvReac SUGAR Verified 11/05/19 12:47 LEVEL INCREASE Review of Systems ROS Statement: Those systems with pertinent positive or pertinent negative responses have been documented in the HPI. ROS Other: All systems not noted in ROS Statement are negative. Past Medical History Past Medical History: Coronary Artery Disease (CAD), Chest Pain / Angina, Dementia, Diabetes Mellitus, Dialysis, Hyperlipidemia, Hypertension, Liver Disease, Myocardial Infarction ([place]), Osteoarthritis (OA), Thyroid Disorder Additional Past Medical History / Comment(s): multiple [place]'s x18. ischemic cardiomyopathy. 12/29/15 STRESS WNL, ALLERGIC rhinitis,[place], CARDIO-PULMONARY ARREST 07/05/14 vertigo, hypertensive nephrosclerosis, Hepatitis A,Vitamin D deficiency, constipation, hx of a cat bit, fall with broken pelvis Last Myocardial Infarction Date:: 09/2013 History of Any Multi-Drug Resistant Organisms: MRSA, VRE Date of last positivie culture/infection: 11/11/18-VRE; 09/27/17 MRSA MDRO Source:: Urine-VRE; Right Breast-MRSA Past Surgical History: Adenoidectomy, Appendectomy, Cholecystectomy, Heart Catheterization With Stent, Hysterectomy, Tonsillectomy Additional Past Surgical History / Comment(s): mary cataracts, LAP-BAND 2004, Laparoscopic cholecystectomy, FIBULA FX has metal pins in place,Left shoulder surgery, Hemodialysis Cataract bilateral with IOL, fistula and sx to" reroute it",gets dialysis fri-fri-fri. has insulin pump. no bp on left, excisional debreidment rt lower ext., foot surgery Past Anesthesia/Blood Transfusion Reactions: Motion Sickness, Postoperative Nausea & Vomiting (PONV) Additional Past Anesthesia/Blood Transfusion Reaction / Comment(s): blood transfusion-pt stated they gave her medication for a reaction but does'nt rememebr what the reaction was Date of Last Stent Placement:: 2014 Past Psychological History: Anxiety, Bipolar, Depression Smoking Status: Never smoker Past Alcohol Use History: Occasional Past Drug Use History: None Reported - Past Family History Mother Family Medical History: Congestive Heart Failure (CHF), Diabetes Mellitus, Hypertension Father History Unknown: Yes Family Medical History: Diabetes Mellitus Brother(s) Family Medical History: Diabetes Mellitus, Hyperlipidemia Additional Family Medical History / Comment(s): Hypertension chronic kidney disease General Exam General appearance: alert, in no apparent distress Head exam: Present: atraumatic, normocephalic, normal inspection Eye exam: Present: normal appearance, PERRL, EOMI. Absent: scleral icterus, conjunctival injection, periorbital swelling ENT exam: Present: normal exam, mucous membranes moist Neck exam: Present: normal inspection. Absent: tenderness, meningismus, lymphadenopathy Respiratory exam: Present: normal lung sounds bilaterally. Absent: respiratory distress, wheezes, rales, rhonchi, stridor Cardiovascular Exam: Present: regular rate, normal rhythm, normal heart sounds. Absent: systolic murmur, diastolic murmur, rubs, gallop, clicks GI/Abdominal exam: Present: soft, normal bowel sounds. Absent: distended, tenderness, guarding, rebound, rigid Extremities exam: Present: normal capillary refill (Capillary refill less than 2 seconds, DP pulse 2+ in the left lower extremity), other (Patient does have ecchymosis noted of the left anterior thigh. She is able to flex left knee and hip to about 45. No tenderness in the calf.) Course Vital Signs 11/19/19 00:31 Temperature 98.1 F Pulse Rate 65 Respiratory 16 Rate Blood Pressure 148/74 O2 Sat by Pulse 100 Oximetry Medical Decision Making - Medical Decision Making X-ray of the L femur is negative. There is extensive vascular calcification. X-ray of the pelvis is negative. 4 view x-ray of the left knee shows no acute abnormality. Patient is able to bear weight on the left leg however does have mild difficulty walking which is likely multifactorial to soft tissue injury and body habitus. Patient currently lives at extended care facility where the low be able to help her with her daily activities. Patient discharged home in stable condition. Disposition Clinical Impression: Leg pain, left Disposition: HOME SELF-CARE Condition: Good Instructions (If sedation given, give patient instructions): Leg Pain (ED) Additional Instructions: light activity. follow up with primary care. Is patient prescribed a controlled substance at d/c from ED?: No Referrals: Kimberli Gar MD [Primary Care Provider] - 1-2 days Adelfo Segura DO [Medical Doctor] - 1-2 days Time of Disposition: 02:00
--- NOTE | 2019-11-19 01:15 | XR ---
EXAMINATION TYPE: XR femur LT DATE OF EXAM: 11/19/2019 COMPARISON: Hip x-ray 11/05/2019 HISTORY: Fall. Hip pain. TECHNIQUE: 4 views FINDINGS: Knee joint and hip joint appear intact. I see no fracture nor dislocation. There is extensi ve vascular calcification. Acetabulum is intact. IMPRESSION: Negative left femur exam. No fracture. Hip joint unchanged compared to old exam. Extensiv e vascular calcification.
--- NOTE | 2019-11-19 01:16 | XR ---
EXAMINATION TYPE: XR pelvis AP view DATE OF EXAM: 11/19/2019 COMPARISON: 11/05/2019 HISTORY: Fall. Pain. TECHNIQUE: FINDINGS: Pelvic ring is intact. Proximal femurs and hip joints are intact. Sacroiliac joints are int act. IMPRESSION: No acute abnormality of the pelvis and both hips. Extensive vascular calcification noted. No change.
--- NOTE | 2019-11-19 01:17 | XR ---
EXAMINATION TYPE: XR knee 4V LT DATE OF EXAM: 11/19/2019 COMPARISON: NONE HISTORY: Knee pain TECHNIQUE: 4 views FINDINGS: I see no fracture nor dislocation. Joint spaces are fairly normal. There is no sign of join t effusion. There is extensive vascular calcification. IMPRESSION: No acute abnormality of the left knee. No fracture.
[2019-11-19 02:33] VITALS: BP 127/67; PULSE 61; RESP 18; TEMP 98.3
== END 2019-11-19 02:48 | disposition home or self-care (01) ==
LOC: EC 00:30
DX: S70.12XA Contusion of left thigh, initial encounter (principal); M25.562 Pain in left knee; F41.9 Anxiety disorder, unspecified; F31.9 Bipolar disorder, unspecified; I25.119 Atherosclerotic heart disease of native coronary artery with unspecified angina pectoris; N18.6 End stage renal disease; E78.5 Hyperlipidemia, unspecified; E11.22 Type 2 diabetes mellitus with diabetic chronic kidney disease; I12.0 Hypertensive chronic kidney disease with stage 5 chronic kidney disease or end stage renal disease; F03.90 Unspecified dementia, unspecified severity, without behavioral disturbance, psychotic disturbance, mood disturbance, and anxiety; I25.2 Old myocardial infarction; E07.9 Disorder of thyroid, unspecified; M19.90 Unspecified osteoarthritis, unspecified site; Z79.82 Long term (current) use of aspirin; Z79.84 Long term (current) use of oral hypoglycemic drugs; Z79.899 Other long term (current) drug therapy; Z88.0 Allergy status to penicillin; Z88.8 Allergy status to other drugs, medicaments and biological substances; Z91.041 Radiographic dye allergy status; Z91.048 Other nonmedicinal substance allergy status; Z86.14 Personal history of Methicillin resistant Staphylococcus aureus infection; Z98.42 Cataract extraction status, left eye; Z98.41 Cataract extraction status, right eye; Z96.41 Presence of insulin pump (external) (internal); Z96.1 Presence of intraocular lens; Z99.2 Dependence on renal dialysis; Z95.5 Presence of coronary angioplasty implant and graft; Z90.89 Acquired absence of other organs; W18.30XA Fall on same level, unspecified, initial encounter; Y93.89 Activity, other specified; Y92.129 Unspecified place in nursing home as the place of occurrence of the external cause
CPT/HCPCS: 72170; 96372; 99284

== ENCOUNTER 2019-11-22 19:03 | Observation (INO) | payer MEDICARE, BC, OTHER ==
--- NOTE | 2019-11-22 20:30 | XR ---
EXAMINATION TYPE: XR chest 2V DATE OF EXAM: 11/22/2019 COMPARISON: 04/09/2019 HISTORY: 64-year-old female with weakness TECHNIQUE: AP and lateral views FINDINGS: Patient is obliqued toward the right. Right anterior chest wall pacemaker generator with right atrial and right ventricular leads. Heart mildly enlarged. Coronary vessel stent is present. Diffuse vascul ar/interstitial prominence. Small effusions on the lateral view. IMPRESSION: Cardiomegaly, interstitial/vascular prominence, and small effusions. Correlate for mild CHF.
[2019-11-22 21:38] LABS: Anisocytosis Slight; HCT 30.3 % (34.0-46.0); HGB 9.7 gm/dL (11.4-16.0); Hypochromasia Slight; MCH 30.2 pg (25.0-35.0); MCV 94.2 fL (80.0-100.0); RBC 3.21 m/uL (3.80-5.40); RDW 17.7 % (11.5-15.5); WBC 10.8 k/uL (3.8-10.6)
--- NOTE | 2019-11-22 21:39 | ED ---
Weakness HPI - General Source: patient, EMS Mode of arrival: EMS Limitations: physical limitation <Gretchen Khan - Last Filed: 11/22/19 22:46> <Rita Acosta - Last Filed: 11/23/19 05:52> - General Chief complaint: Weakness Stated complaint: altered mental status Time Seen by Provider: 11/22/19 19:18 - History of Present Illness Initial comments: 64-year-old female patient presents to the emergency department today for evaluation of generalized weakness. She states that she is not feeling herself. Patient had a fall a couple of days ago. She has refused her last 2 dialysis treatments due to not feeling well. Patient is currently staying at [facility]. Patient is unable to describe her symptoms. She does state she is having some upper back pain. She is reluctant to give information and is very sparse answers. She is alert and oriented. Patient denies any recent rash, fever, chills, cough, shortness of breath, chest pain, abdominal pain, nausea, vomiting, diarrhea, constipation, numbness, tingling, dizziness, weakness, hematuria, dysuria, urinary urgency, urinary frequency, headache, visual changes, or any other complaints. (Gretchen Khan) - Related Data Home Medications Medication Instructions Recorded Confirmed Famotidine [Pepcid] 20 mg PO DAILY@0600 04/29/14 11/05/19 Atorvastatin [Lipitor] 80 mg PO HS@2100 12/27/16 11/05/19 Calcium Acetate [PhosLo] 2,001 mg PO AC-TID 09/02/18 11/05/19 Acetaminophen Tab [Tylenol] 500 mg PO Q6H 01/11/19 11/05/19 Docusate Sodium [Dok] 100 mg PO BID@0900,2100 01/11/19 11/05/19 Furosemide [Lasix] 20 mg PO BID@0600,1200 01/11/19 11/05/19 Insulin Glargine,Hum.rec.anlog 50 unit SQ HS@209901/11/19 11/05/19 [Basaglar Kwikpen U-100] Insulin Lispro [humaLOG Kwikpen] 12 unit SQ AC-TID 01/11/19 11/05/19 Insulin Lispro [humaLOG Kwikpen] See Protocol SQ ACHS 01/11/19 11/05/19 busPIRone HCL 5 mg PO BID@0900,2100 01/11/19 11/05/19 Aspirin EC [Ecotrin Low Dose] 81 mg PO DAILY@0904/02/19 11/05/19 Escitalopram [Lexapro] 20 mg PO DAILY@0900 04/02/19 11/05/19 Folic Acid-Vit B Complex-Vit C 1 cap PO MOWEFR@209904/02/19 11/05/19 [Nephrocaps] Folic Acid-Vit B Complex-Vit C 1 mg PO SUTUTHSA@89904/02/19 11/05/19 [Nephrocaps] Melatonin 10 mg PO HS@209904/02/19 11/05/19 Ondansetron [Zofran] 4 mg PO Q8H 04/02/19 11/05/19 Clopidogrel [Plavix] 75 mg PO DAILY@0904/09/19 11/05/19 amLODIPine [Norvasc] 2.5 mg PO DAILY@89904/09/19 11/05/19 Calcium Acetate [Phoslo] 667 mg PO TID PRN 11/05/19 11/05/19 Levothyroxine Sodium [Synthroid] 175 mcg PO MOTUWETHFRSA 11/05/19 11/05/19 Sodium Polystyrene Sulfonate 15 gm PO DIRECTED 11/05/19 11/05/19 Previous Rx's Medication Instructions Recorded Nitroglycerin Sl Tabs [Nitrostat] 0.4 mg SUBLINGUAL Q5M PRN tab 04/06/19 Hydrocodone/Acetaminophen [[place] 1 tab PO BID PRN #6 tab 04/13/19 10-325] LORazepam [Ativan] 1 mg PO DAILY PRN #3 tab 04/13/19 Allergies Allergy/AdvReac Type Severity Reaction Status Date / Time adhesive Allergy Rash/Hives Verified 11/22/19 19:11 Penicillins Allergy Rash/Hives Verified 11/22/19 19:11 Iodinated Contrast Media AdvReac KIDNEY Verified 11/22/19 19:11 [Iodinated Contrast- Oral FAILURE and IV Dye] metformin AdvReac SUGAR Verified 11/22/19 19:11 LEVEL INCREASE Review of Systems ROS Other: All systems not noted in ROS Statement are negative. <Gretchen Khan M - Last Filed: 11/22/19 22:46> ROS Other: All systems not noted in ROS Statement are negative. <Rita Acosta P - Last Filed: 11/23/19 05:52> ROS Statement: Those systems with pertinent positive or pertinent negative responses have been documented in the HPI. Past Medical History Past Medical History: Coronary Artery Disease (CAD), Chest Pain / Angina, Dementia, Diabetes Mellitus, Dialysis, Hyperlipidemia, Hypertension, Liver Disease, Myocardial Infarction ([place]), Osteoarthritis (OA), Thyroid Disorder Additional Past Medical History / Comment(s): multiple RI's x18. ischemic cardiomyopathy. 12/29/15 STRESS WNL, ALLERGIC rhinitis,[place], CARDIO-PULMONARY ARREST 07/05/14 vertigo, hypertensive nephrosclerosis, Hepatitis A,Vitamin D deficiency, constipation, hx of a cat bit, fall with broken pelvis Last Myocardial Infarction Date:: 09/2013 History of Any Multi-Drug Resistant Organisms: MRSA, VRE Date of last positivie culture/infection: 11/11/18-VRE; 09/27/17 MRSA MDRO Source:: Urine-VRE; Right Breast-MRSA Past Surgical History: Adenoidectomy, Appendectomy, Cholecystectomy, Heart Catheterization With Stent, Hysterectomy, Tonsillectomy Additional Past Surgical History / Comment(s): mary cataracts, LAP-BAND 2004, Laparoscopic cholecystectomy, FIBULA FX has metal pins in place,Left shoulder surgery, Hemodialysis Cataract bilateral with IOL, fistula and sx to" reroute it",gets dialysis fri-fri-fri. has insulin pump. no bp on left, excisional debreidment rt lower ext., foot surgery Past Anesthesia/Blood Transfusion Reactions: Motion Sickness, Postoperative Nausea & Vomiting (PONV) Additional Past Anesthesia/Blood Transfusion Reaction / Comment(s): blood transfusion-pt stated they gave her medication for a reaction but does'nt rememebr what the reaction was Date of Last Stent Placement:: 2014 Past Psychological History: Anxiety, Bipolar, Depression Smoking Status: Never smoker Past Alcohol Use History: None Reported Past Drug Use History: None Reported - Past Family History Mother Family Medical History: Congestive Heart Failure (CHF), Diabetes Mellitus, Hypertension Father History Unknown: Yes Family Medical History: Diabetes Mellitus Brother(s) Family Medical History: Diabetes Mellitus, Hyperlipidemia Additional Family Medical History / Comment(s): Hypertension chronic kidney disease <Gretchen Khan - Last Filed: 11/22/19 22:46> General Exam Limitations: physical limitation General appearance: alert, in no apparent distress, other (Physical well- developed, well-nourished adult female patient in no acute distress. Vital signs upon presentation are temperature 98.1F, pulse 60, respirations 18, blood pressure 145/68, pulse ox 98% on room air.) Eye exam: Present: normal appearance, PERRL, EOMI. Absent: scleral icterus, conjunctival injection, periorbital swelling ENT exam: Present: normal exam, normal oropharynx, mucous membranes moist Neck exam: Present: normal inspection, full ROM, other (Nontender, no step-off, no deformity to firm midline palpation of the posterior cervical spine. Full range of motion without pain or limitation.). Absent: tenderness, meningismus, lymphadenopathy Respiratory exam: Present: normal lung sounds bilaterally. Absent: respiratory distress, wheezes, rales, rhonchi, stridor Cardiovascular Exam: Present: regular rate, normal rhythm, normal heart sounds. Absent: systolic murmur, diastolic murmur, rubs, gallop, clicks GI/Abdominal exam: Present: soft, normal bowel sounds. Absent: distended, tenderness, guarding, rebound, rigid Extremities exam: Present: full ROM, normal capillary refill, other (There is soft tissue swelling and ecchymosis to the left anterior thigh). Absent: normal inspection, tenderness, pedal edema, joint swelling, calf tenderness Back exam: Present: normal inspection Neurological exam: Present: alert, oriented X3, CN II-XII intact Psychiatric exam: Present: normal affect, normal mood Skin exam: Present: warm, dry, intact, normal color. Absent: rash <Gretchen Khan - Last Filed: 11/22/19 22:46> Course Vital Signs 11/22/19 11/22/19 19:11 23:07 Temperature 98.1 F Pulse Rate 60 60 Respiratory 18 16 Rate Blood Pressure 145/68 136/69 O2 Sat by Pulse 98 97 Oximetry EKG Findings - EKG Comments: EKG Findings:: EKG obtained at 2131 shows ventricular paced rhythm with a rate of 60, QRS duration 170, QT 526, QTc 526. No evidence of ST elevation or depression. <Gretchen Khan - Last Filed: 11/22/19 22:46> Medical Decision Making - Lab Data Result diagrams: 11/22/19 21:08 11/22/19 21:08 - Radiology Data Radiology results: report reviewed, image reviewed <Gretchen Khan - Last Filed: 11/22/19 22:46> - Lab Data Result diagrams: 11/22/19 21:08 11/22/19 21:08 <Rita Acosta - Last Filed: 11/23/19 05:52> - Medical Decision Making 64-year-old female patient presents the emergency department today for evaluation of generalized weakness and upper back pain. Physical examination did reveal soft nontender abdomen. Lungs are clear to auscultation. The patient is slow to respond to questions and is selectively answering questions. She denies headache or blurred vision. Denies head injury. Labs reviewed and did reveal elevated BUN and creatinine. Patient did miss dialysis for her last 2 treatments. We'll admit patient says she is able to receive dialysis tomorrow. Patient is agreeable this plan. (Gretchen Khan) Patient care was discussed with Dr. Gar who accepts the admission for patient needing dialysis due to admit to missed dialysis appointments (Rita Acosta) - Lab Data Lab Results 11/22/19 11/22/19 11/22/19 Range/Units 21:08 21:08 21:08 WBC 10.8 H (3.8-10.6) k/uL RBC 3.21 L (3.80-5.40) m/uL Hgb 9.7 L (11.4-16.0) gm/dL Hct 30.3 L (34.0-46.0) % MCV 94.2 (80.0-100.0) fL MCH 30.2 (25.0-35.0) pg MCHC 32.0 (31.0-37.0) g/dL RDW 17.7 H (11.5-15.5) % Plt Count (150-450) k/uL Neutrophils % (Manual) 91 % Band Neutrophils % 1 % Lymphocytes % (Manual) 4 % Monocytes % (Manual) 3 % Eosinophils % (Manual) 1 % Neutrophils # (Manual) 9.90 H (1.3-7.7) k/uL Lymphocytes # (Manual) 0.43 L (1.0-4.8) k/uL Monocytes # (Manual) 0.32 (0-1.0) k/uL Eosinophils # (Manual) 0.11 (0-0.7) k/uL Nucleated RBCs 0 (0-0) /100 WBC Manual Slide Review Performed Large Platelets Present Hypochromasia Slight Poikilocytosis (manual Present Anisocytosis Slight Crenated Cell Present PT 12.5 H (9.0-12.0) sec INR 1.2 H (<1.2) APTT 24.8 (22.0-30.0) sec Sodium 129 L (137-145) mmol/L Potassium 5.3 H (3.5-5.1) mmol/L Chloride 90 L (98-107) mmol/L Carbon Dioxide 22 (22-30) mmol/L Anion Gap 17 mmol/L BUN 52 H (7-17) mg/dL Creatinine 8.83 H* (0.52-1.04) mg/dL Est GFR (CKD-EPI)AfAm 5 (>60 ml/min/1.73 sqM) Est GFR (CKD-EPI)NonAf 4 (>60 ml/min/1.73 sqM) Glucose 100 H (74-99) mg/dL Plasma Lactic Acid Dougie (0.7-2.0) mmol/L Calcium 9.3 (8.4-10.2) mg/dL Total Bilirubin 1.4 H (0.2-1.3) mg/dL AST 54 H (14-36) U/L ALT 31 (4-34) U/L Alkaline Phosphatase 112 (38-126) U/L Troponin I (0.000-0.034) ng/mL Total Protein 6.6 (6.3-8.2) g/dL Albumin 3.6 (3.5-5.0) g/dL 11/22/19 11/22/19 Range/Units 21:08 21:08 WBC (3.8-10.6) k/uL RBC (3.80-5.40) m/uL Hgb (11.4-16.0) gm/dL Hct (34.0-46.0) % MCV (80.0-100.0) fL MCH (25.0-35.0) pg MCHC (31.0-37.0) g/dL RDW (11.5-15.5) % Plt Count (150-450) k/uL Neutrophils % (Manual) % Band Neutrophils % % Lymphocytes % (Manual) % Monocytes % (Manual) % Eosinophils % (Manual) % Neutrophils # (Manual) (1.3-7.7) k/uL Lymphocytes # (Manual) (1.0-4.8) k/uL Monocytes # (Manual) (0-1.0) k/uL Eosinophils # (Manual) (0-0.7) k/uL Nucleated RBCs (0-0) /100 WBC Manual Slide Review Large Platelets Hypochromasia Poikilocytosis (manual Anisocytosis Crenated Cell PT (9.0-12.0) sec INR (<1.2) APTT (22.0-30.0) sec Sodium (137-145) mmol/L Potassium (3.5-5.1) mmol/L Chloride (98-107) mmol/L Carbon Dioxide (22-30) mmol/L Anion Gap mmol/L BUN (7-17) mg/dL Creatinine (0.52-1.04) mg/dL Est GFR (CKD-EPI)AfAm (>60 ml/min/1.73 sqM) Est GFR (CKD-EPI)NonAf (>60 ml/min/1.73 sqM) Glucose (74-99) mg/dL Plasma Lactic Acid Dougie 1.1 (0.7-2.0) mmol/L Calcium (8.4-10.2) mg/dL Total Bilirubin (0.2-1.3) mg/dL AST (14-36) U/L ALT (4-34) U/L Alkaline Phosphatase (38-126) U/L Troponin I 0.071 H* (0.000-0.034) ng/mL Total Protein (6.3-8.2) g/dL Albumin (3.5-5.0) g/dL - Radiology Data Two-view x-ray of the chest is obtained. Report reviewed in its entirety. Impression by Dr. Thrasher shows cardiomegaly, interstitial/vascular prominence, and small effusions. Correlate for mild CHF. (Gretchen Khan) Disposition Decision to Admit Reason: Admit from EC Decision Date: 11/22/19 Decision Time: 22:46 <Gretchen Khan - Last Filed: 11/22/19 22:46> <Rita Acosta - Last Filed: 11/23/19 05:52> Clinical Impression: Generalized weakness, Missed dialysis Disposition: ADMITTED IP TO THIS [facility] Condition: Serious
[2019-11-22 21:41] LABS: INR 1.2 (<1.2); Partial Thromboplastin Time 24.8 sec (22.0-30.0); Prothrombin Time 12.5 sec (9.0-12.0)
[2019-11-22 21:42] LABS: Albumin 3.6 g/dL (3.5-5.0); Calcium 9.3 mg/dL (8.4-10.2); Total Bilirubin 1.4 mg/dL (0.2-1.3); Total Protein 6.6 g/dL (6.3-8.2)
[2019-11-22 21:43] LABS: Potassium 5.3 mmol/L (3.5-5.1)
[2019-11-22 22:39] LABS: Band Neutrophils % 1 %; Eosinophils # (M) 0.11 k/uL (0-0.7); Lymphocytes # (M) 0.43 k/uL (1.0-4.8); Monocytes # (M) 0.32 k/uL (0-1.0); Neutrophils % (M) 91 %; Nucleated Red Blood Cells 0 /100 WBC (0-0); Total Cells Counted 100
[2019-11-22 22:40] LABS: Large Platelets Present
[2019-11-22 22:41] LABS: Crenated RBC Present; Poikilocytosis (M) Present
[2019-11-22] MEDS ORDERED: NALOXONE 0.4 MG/ML 1 ML VIAL IV PRN (22:49)
--- NOTE | 2019-11-23 09:23 | P.NPCON ---
History of Present Illness - Reason for Consult end stage renal disease - History of Present Illness Reason for consultation: End-stage renal disease History of present illness: Patient is a 64-year-old female seen in renal consultation for end-stage renal disease. She is maintained on hemodialysis on Friday schedule. Patient presented to the hospital from an extended care facility due to generalized weakness. Patient is also missed her last 2 hemodialysis treatments due to not feeling well. She is quite confused and her mentation is not at baseline. Hemodynamically stable. No fever or chills. No cough. Checks x-ray suggestive of vascular congestion suggestive of CHF. Potassium slightly on the higher side but was hemolyzed. Patient is not a reliable historian. Vital signs are stable. General: The patient appeared well nourished and normally developed. HEENT: Head exam is unremarkable. Neck is without jugular venous distension. LUNGS: Breath sounds decreased. HEART: Rate and Rhythm are regular. ABDOMEN: Soft, nontender. Obese. EXTREMITITES: Trace edema. Past Medical History Past Medical History: Coronary Artery Disease (CAD), Chest Pain / Angina, Dementia, Diabetes Mellitus, Dialysis, Hyperlipidemia, Hypertension, Liver Disease, Myocardial Infarction ([place]), Osteoarthritis (OA), Thyroid Disorder Additional Past Medical History / Comment(s): multiple [place]'s x18. ischemic cardiomyopathy. 12/29/15 STRESS WNL, ALLERGIC rhinitis,[place], CARDIO-PULMONARY ARREST 07/05/14 vertigo, hypertensive nephrosclerosis, Hepatitis A,Vitamin D deficiency, constipation, hx of a cat bit, fall with broken pelvis Last Myocardial Infarction Date:: 09/2013 History of Any Multi-Drug Resistant Organisms: MRSA, VRE Date of last positivie culture/infection: 11/11/18-VRE; 09/27/17 MRSA MDRO Source:: Urine-VRE; Right Breast-MRSA Past Surgical History: Adenoidectomy, Appendectomy, Cholecystectomy, Heart Catheterization With Stent, Hysterectomy, Tonsillectomy Additional Past Surgical History / Comment(s): mary cataracts, LAP-BAND 2004, Laparoscopic cholecystectomy, FIBULA FX has metal pins in place,Left shoulder surgery, Hemodialysis Cataract bilateral with IOL, fistula and sx to" reroute it",gets dialysis fri-fri-fri. has insulin pump. no bp on left, excisional de breidment rt lower ext., foot surgery Past Anesthesia/Blood Transfusion Reactions: Motion Sickness, Postoperative Nausea & Vomiting (PONV) Additional Past Anesthesia/Blood Transfusion Reaction / Comment(s): blood transfusion-pt stated they gave her medication for a reaction but does'nt rememebr what the reaction was Date of Last Stent Placement:: 2014 Past Psychological History: Anxiety, Bipolar, Depression Additional Psychological History / Comment(s): Pt lives at [facility] and uses a wheelchair for mobility. 2 person assistance transfering to / Smoking Status: Never smoker Past Alcohol Use History: None Reported Additional Past Alcohol Use History / Comment(s): Patient living in an apart ment. She has a walker in the home and motorized wheelchair. She does not drive. She has a glucometer and insulin pump. She is a lifelong nonsmoker. She denies any alcohol use. No service. No international travel. She has a pet cat. Past Drug Use History: None Reported - Past Family History Mother Family Medical History: Congestive Heart Failure (CHF), Diabetes Mellitus, Hypertension Father History Unknown: Yes Family Medical History: Diabetes Mellitus Brother(s) Family Medical History: Diabetes Mellitus, Hyperlipidemia Additional Family Medical History / Comment(s): Hypertension chronic kidney disease Medications and Allergies Home Medications Medication Instructions Recorded Confirmed Type Atorvastatin [Lipitor] 80 mg PO HS@209912/27/16 11/23/19 History Calcium Acetate [PhosLo] 2,001 mg PO AC-TID 09/02/18 11/23/19 History Acetaminophen Tab [Tylenol] 500 mg PO Q6H PRN 01/11/19 11/23/19 History Docusate Sodium [Dok] 100 mg PO BID@0900,209901/11/19 11/23/19 History Furosemide [Lasix] 20 mg PO BID@0600,1200 01/11/19 11/23/19 History Insulin Glargine,Hum.rec.anlog 40 unit SQ HS@209901/11/19 11/23/19 History [Basaglar Kwikpen U-100] Aspirin EC [Ecotrin Low Dose] 81 mg PO DAILY@0900 04/02/19 11/23/19 History Escitalopram [Lexapro] 20 mg PO DAILY@0904/02/19 11/23/19 History Folic Acid-Vit B Complex-Vit C 1 cap PO MOWEFR@209904/02/19 11/23/19 History [Nephrocaps] Folic Acid-Vit B Complex-Vit C 1 mg PO SUTUTHSA@89904/02/19 11/23/19 History [Nephrocaps] Melatonin 10 mg PO HS@209904/02/19 11/23/19 History Ondansetron [Zofran] 4 mg PO Q6H PRN 04/02/19 11/23/19 History Nitroglycerin Sl Tabs [Nitrostat] 0.4 mg SUBLINGUAL Q5M PRN tab 04/06/19 11/23/19 Rx Clopidogrel [Plavix] 75 mg PO DAILY@89904/09/19 11/23/19 History amLODIPine [Norvasc] 2.5 mg PO DAILY@89904/09/19 11/23/19 History Hydrocodone/Acetaminophen [[place] 1 tab PO BID PRN #6 tab 04/13/19 11/23/19 Rx 10-325] Calcium Acetate [Phoslo] 667 mg PO TID PRN 11/05/19 11/23/19 History Levothyroxine Sodium [Synthroid] 175 mcg PO DAILY@0611/05/19 11/23/19 History Sodium Polystyrene Sulfonate 15 gm PO SUTUTHSA 11/05/19 11/23/19 History Artificial Tears-Hypromellose 1 drops RIGHT EYE Q12H PRN 11/23/19 11/23/19 History [Artificial Tear Drops] Dextrose/Dextrin/Maltose 1 applic PO DAILY PRN 11/23/19 11/23/19 History [Insta-Glucose Gel] Glucagon Emergency Kit 1 mg IM ONCE PRN 11/23/19 11/23/19 History Insulin Aspart [NovoLOG] 3 units SQ AC-TID 11/23/19 11/23/19 History Insulin Aspart [NovoLOG] See Protocol SQ ACHS 11/23/19 11/23/19 History LORazepam [Ativan] 1 mg PO BID@899,209911/23/19 11/23/19 History Lidocaine-Prilocaine Cream [[place] 1 applic TOPICAL MOWEFR PRN 11/23/19 11/23/19 History Cream 2.5%/2.5%] Loperamide [Imodium] 2 mg PO Q4H PRN 11/23/19 11/23/19 History Na Phos,M-B/Na Phos,Di-Ba [Fleet 118 ml RECTAL DAILY PRN 11/23/19 11/23/19 History Adult] bisacodyL [Bisacodyl] 10 mg RECTAL DAILY PRN 11/23/19 11/23/19 History guaiFENesin [Mucinex] 600 mg PO Q12H PRN 11/23/19 11/23/19 History Allergies Allergy/AdvReac Type Severity Reaction Status Date / Time adhesive Allergy Rash/Hives Verified 11/23/19 08:42 Penicillins Allergy Rash/Hives Verified 11/23/19 08:42 Iodinated Contrast Media AdvReac KIDNEY Verified 11/23/19 08:42 [Iodinated Contrast- Oral FAILURE and IV Dye] metformin AdvReac SUGAR Verified 11/23/19 08:42 LEVEL INCREASE Physical Exam Vitals: Vital Signs Temp Pulse Pulse Resp BP BP Pulse Ox 11/23/19 04:45 97.9 F 60 18 146/61 96 11/22/19 23:07 60 16 136/69 97 11/22/19 19:11 98.1 F 60 18 145/68 98 Intake and Output 11/22/19 11/23/19 11/23/19 22:59 06:59 14:59 Intake Total 540 Balance 540 Intake: Oral 540 Other: Weight 90.718 kg 90.718 kg Results - Lab Results Most recent lab results Calcium 9.3 mg/dL (8.4-10.2) 11/22/19 21:08 11/22/19 21:08 11/22/19 21:08 Assessment and Plan Plan: Assessment: 1. End-stage renal disease maintained on hemodialysis on Friday schedule. 2. Hyponatremia secondary to chronic kidney disease. Hypervolemic. 3. Hypertension with chronic kidney disease. Stable. 4. Anemia of chronic kidney disease. Rule out iron deficiency. 5. Volume overload. 6. Altered mental status. Possibly uremia from missed dialysis. Rule out infection. Plan: Hemodialysis today and again tomorrow. Check UA and urine culture. Check iron studies. Thank you for the consultation. I will continue to follow the patient with you during her hospital stay.
[2019-11-23] MEDS ORDERED: ACETAMINOPHEN TAB 500 MG TAB PO PRN (12:23)
[2019-11-23] MEDS ORDERED: ONDANSETRON 4 MG TAB PO PRN (12:23)
[2019-11-23] MEDS ORDERED: ARTIFICIAL TEARS-HYPROMELLOSE DROPS 15 ML BTL RIGHT EYE PRN (12:23)
[2019-11-23] MEDS ORDERED: LIDOCAINE-PRILOCAINE 2.5-2.5% CREAM 5 GM TUBE TOPICAL PRN (12:23)
[2019-11-23] MEDS ORDERED: NITROGLYCERIN SL TABS 0.4 MG TAB SUBLINGUAL PRN (12:23)
[2019-11-23] MEDS ORDERED: CALCIUM ACETATE 667 MG TAB PO PRN (12:23)
--- NOTE | 2019-11-23 13:28 | P.HPIM ---
History of Present Illness H&P Date: 11/23/19 Chief Complaint: Weakness This is a 64-year-old obese female patient of JAE Cordova, Mayank with multiple medical problem was known to have end-stage kidney disease on hemodialysis Friday, coronary artery disease and prior coronary artery stenting, diabetes type 2 insulin requiring, dyslipidemia, history of permanent pacemaker. Patient is a long-term resident at [facility]. She underwent her usual hemodialysis on Friday but on Friday she refused to go. She does not remember refusing. She has had low blood sugars down to 65 and recently had insulin adjusted by Dr Michelle Goel. Patient also had a fall at [facility] last week injuring her back. Plain film x-rays were done that were negative for fracture. Patient continues to complain of back pain and CAT scan will be ordered. Patient was sent in from [facility] regarding generalized weakness. Patient noted to be slow to answer questions with mental status changes. Patient presented to [facility] emergency center. She was afebrile, heart rate 60, blood pressure 145/60, pulse ox 98%. WBC 10.8, hemoglobin 9.7. Sodium 129, potassium 5.3, chloride 90, CO2 22, BUN 52 and creatinine 8.83, blood sugar 100. Total bilirubin 1.4, AST 54, ALT 31, 1 phosphatase 112. Lactic acid 1.1. Troponin 0.071. EKG was a ventricular paced rhythm. Chest x-ray reveals cardiomegaly, interstitial vascular prominence and small effusions. Correlate for mild heart failure. [facility] and consult with nephrology. Patient is currently undergoing hemo dialysis was scheduled hemodialysis tomorrow as well. Review of Systems Constitutional: Reports fatigue, denies sweats, Reports weakness, reports fatigue, Denies chills, Denies fever Eyes: denies blurred vision, denies pain Ears, nose, mouth and throat: Denies headache, Denies nasal congestion, Denies nasal discharge, Denies sore throat, Denies vertigo Cardiovascular: Denies chest pain, denies shortness of breath, Denies dyspnea on exertion, Denies edema Respiratory: Reports cough with sputum, Denies cough, Denies dyspnea, Denies hemoptysis, Denies wheezing Gastrointestinal: Denies abdominal pain, Denies diarrhea, Denies loss of appetite, Denies nausea, Denies vomiting Genitourinary: Denies dysuria, Denies hematuria Musculoskeletal: Reports muscle weakness, Denies myalgias Integumentary: Denies pruritus, Denies rash, Denies wounds Neurological: Denies numbness, Denies weakness Psychiatric: Denies anxiety, Denies depression Endocrine: Denies fatigue, Denies weight change Past Medical History Past Medical History: Coronary Artery Disease (CAD), Chest Pain / Angina, Dementia, Diabetes Mellitus, Dialysis, Hyperlipidemia, Hypertension, Liver Disease, Myocardial Infarction (AL), Osteoarthritis (OA), Thyroid Disorder Additional Past Medical History / Comment(s): multiple AL's x18. ischemic cardiomyopathy. 12/29/15 STRESS WNL, ALLERGIC rhinitis,AL, CARDIO-PULMONARY ARREST 07/05/14 vertigo, hypertensive nephrosclerosis, Hepatitis A,Vitamin D deficiency, constipation, hx of a cat bit, fall with broken pelvis Last Myocardial Infarction Date:: 09/2013 History of Any Multi-Drug Resistant Organisms: MRSA, VRE Date of last positivie culture/infection: 11/11/18-VRE; 09/27/17 MRSA MDRO Source:: Urine-VRE; Right Breast-MRSA Past Surgical History: Adenoidectomy, Appendectomy, Cholecystectomy, Heart Catheterization With Stent, Hysterectomy, Tonsillectomy Additional Past Surgical History / Comment(s): mary cataracts, LAP-BAND 2004, Laparoscopic cholecystectomy, FIBULA FX has metal pins in place,Left shoulder surgery, Hemodialysis Cataract bilateral with IOL, fistula and sx to" reroute it",gets dialysis fri-fri-fri. has insulin pump. no bp on left, excisional debreidment rt lower ext., foot surgery Past Anesthesia/Blood Transfusion Reactions: Motion Sickness, Postoperative Nausea & Vomiting (PONV) Additional Past Anesthesia/Blood Transfusion Reaction / Comment(s): blood transfusion-pt stated they gave her medication for a reaction but does'nt rememebr what the reaction was Date of Last Stent Placement:: 2014 Past Psychological History: Anxiety, Bipolar, Depression Additional Psychological History / Comment(s): Pt [place] [facility] and uses a wheelchair for mobility. 2 person assistance transfering to w/c Smoking Status: Never smoker Past Alcohol Use History: None Reported Additional Past Alcohol Use History / Comment(s): Patient living in an apartment. She has a walker in the home and motorized wheelchair. She does not drive. She has a glucometer and insulin pump. She is a lifelong nonsmoker. She denies any alcohol use. No service. No international travel. She has a pet cat. Past Drug Use History: None Reported - Past Family History Mother Family Medical History: Congestive Heart Failure (CHF), Diabetes Mellitus, Hypertension Father History Unknown: Yes Family Medical History: Diabetes Mellitus Brother(s) Family Medical History: Diabetes Mellitus, Hyperlipidemia Additional Family Medical History / Comment(s): Hypertension chronic kidney disease Medications and Allergies Home Medications Medication Instructions Recorded Confirmed Type Atorvastatin [Lipitor] 80 mg PO HS@209912/27/16 11/23/19 History Calcium Acetate [PhosLo] 2,001 mg PO AC-TID 09/02/18 11/23/19 History Acetaminophen Tab [Tylenol] 500 mg PO Q6H PRN 01/11/19 11/23/19 History Docusate Sodium [Dok] 100 mg PO BID@0900,209901/11/19 11/23/19 History Furosemide [Lasix] 20 mg PO BID@0600,1200 01/11/19 11/23/19 History Insulin Glargine,Hum.rec.anlog 40 unit SQ HS@209901/11/19 11/23/19 History [Basaglar Kwikpen U-100] Aspirin EC [Ecotrin Low Dose] 81 mg PO DAILY@0904/02/19 11/23/19 History Escitalopram [Lexapro] 20 mg PO DAILY@89904/02/19 11/23/19 History Folic Acid-Vit B Complex-Vit C 1 cap PO MOWEFR@209904/02/19 11/23/19 History [Nephrocaps] Folic Acid-Vit B Complex-Vit C 1 mg PO SUTUTHSA@89904/02/19 11/23/19 History [Nephrocaps] Melatonin 10 mg PO HS@209904/02/19 11/23/19 History Ondansetron [Zofran] 4 mg PO Q6H PRN 04/02/19 11/23/19 History Nitroglycerin Sl Tabs [Nitrostat] 0.4 mg SUBLINGUAL Q5M PRN tab 04/06/19 11/23/19 Rx Clopidogrel [Plavix] 75 mg PO DAILY@0900 04/09/19 11/23/19 History amLODIPine [Norvasc] 2.5 mg PO DAILY@89904/09/19 11/23/19 History Hydrocodone/Acetaminophen [Stuyvesant 1 tab PO BID PRN #6 tab 04/13/19 11/23/19 Rx 10-325] Calcium Acetate [Phoslo] 667 mg PO TID PRN 11/05/19 11/23/19 History Levothyroxine Sodium [Synthroid] 175 mcg PO DAILY@0600 11/05/19 11/23/19 History Sodium Polystyrene Sulfonate 15 gm PO SUTUTHSA 11/05/19 11/23/19 History Artificial Tears-Hypromellose 1 drops RIGHT EYE Q12H PRN 11/23/19 11/23/19 History [Artificial Tear Drops] Dextrose/Dextrin/Maltose 1 applic PO DAILY PRN 11/23/19 11/23/19 History [Insta-Glucose Gel] Glucagon Emergency Kit 1 mg IM ONCE PRN 11/23/19 11/23/19 History Insulin Aspart [NovoLOG] 3 units SQ AC-TID 11/23/19 11/23/19 History Insulin Aspart [NovoLOG] See Protocol SQ ACHS 11/23/19 11/23/19 History LORazepam [Ativan] 1 mg PO BID@0900,2100 11/23/19 11/23/19 History Lidocaine-Prilocaine Cream [Emla 1 applic TOPICAL MOWEFR PRN 11/23/19 11/23/19 History Cream 2.5%/2.5%] Loperamide [Imodium] 2 mg PO Q4H PRN 11/23/19 11/23/19 History Na Phos,M-B/Na Phos,Di-Ba [Fleet 118 ml RECTAL DAILY PRN 11/23/19 11/23/19 Hist ory Adult] bisacodyL [Bisacodyl] 10 mg RECTAL DAILY PRN 11/23/19 11/23/19 History guaiFENesin [Mucinex] 600 mg PO Q12H PRN 11/23/19 11/23/19 History Allergies Allergy/AdvReac Type Severity Reaction Status Date / Time adhesive Allergy Rash/Hives Verified 11/23/19 08:42 Penicillins Allergy Rash/Hives Verified 11/23/19 08:42 Iodinated Contrast Media AdvReac KIDNEY Verified 11/23/19 08:42 [Iodinated Contrast- Oral FAILURE and IV Dye] metformin AdvReac SUGAR Verified 11/23/19 08:42 LEVEL INCREASE Physical Exam Vitals: Vital Signs Temp Pulse Pulse Resp BP BP Pulse Ox 11/23/19 04:45 97.9 F 60 18 146/61 96 11/22/19 23:07 60 16 136/69 97 11/22/19 19:11 98.1 F 60 18 145/68 98 Intake and Output 11/22/19 11/23/19 11/23/19 22:59 06:59 14:59 Intake Total 540 Balance 540 Intake: Oral 540 Other: Weight 90.718 kg 90.718 kg Gen: This is a 63-year-old obese female. Patient is lying flat in bed and appears to be comfortable. No respiratory distress is noted. HEENT: Head is atraumatic, normocephalic. Pupils equal, round. Sclerae is anicteric. NECK: Supple. No JVD. No lymphadenopathy. No thyromegaly. LUNGS: Clear to auscultation. No wheezes or rhonchi. No intercostal retractions. HEART: Regular rate and rhythm. Systolic murmur. ABDOMEN: Soft. Bowel sounds are present. No masses. No tenderness. EXTREMITIES: No pedal edema. No calf tenderness. NEUROLOGICAL: Patient is awake, oriented to person and place. Patient is able to follow simple commands. Noted confusion. Generalized weakness. No focal neural deficits. Results CBC & Chem 7: 11/22/19 21:08 11/22/19 21:08 Labs: Abnormal Lab Results - Last 24 Hours (Table) 11/22/19 11/22/19 11/22/19 Range/Units 21:08 21:08 21:08 WBC 10.8 H (3.8-10.6) k/uL RBC 3.21 L (3.80-5.40) m/uL Hgb 9.7 L (11.4-16.0) gm/dL Hct 30.3 L (34.0-46.0) % RDW 17.7 H (11.5-15.5) % Neutrophils # (Manual) 9.90 H (1.3-7.7) k/uL Lymphocytes # (Manual) 0.43 L (1.0-4.8) k/uL PT 12.5 H (9.0-12.0) sec INR 1.2 H (<1.2) Sodium 129 L (137-145) mmol/L Potassium 5.3 H (3.5-5.1) mmol/L Chloride 90 L (98-107) mmol/L BUN 52 H (7-17) mg/dL Creatinine 8.83 H* (0.52-1.04) mg/dL Glucose 100 H (74-99) mg/dL Total Bilirubin 1.4 H (0.2-1.3) mg/dL AST 54 H (14-36) U/L Troponin I (0.000-0.034) ng/mL 11/22/19 Range/Units 21:08 WBC (3.8-10.6) k/uL RBC (3.80-5.40) m/uL Hgb (11.4-16.0) gm/dL Hct (34.0-46.0) % RDW (11.5-15.5) % Neutrophils # (Manual) (1.3-7.7) k/uL Lymphocytes # (Manual) (1.0-4.8) k/uL PT (9.0-12.0) sec INR (<1.2) Sodium (137-145) mmol/L Potassium (3.5-5.1) mmol/L Chloride (98-107) mmol/L BUN (7-17) mg/dL Creatinine (0.52-1.04) mg/dL Glucose (74-99) mg/dL Total Bilirubin (0.2-1.3) mg/dL AST (14-36) U/L Troponin I 0.071 H* (0.000-0.034) ng/mL Thrombosis Risk Factor Assmnt - DVT/VTE Prophylaxis DVT/VTE Prophylaxis: Pharmacologic Prophylaxis ordered - Choose All That Apply Each Factor Represents 1 point: Obesity (BMI >25) Each Risk Factor Represents 2 Points: Age 61-74 years Other congenital or acquired thrombophilia - If yes, enter type in comment: No Thrombosis Risk Factor Assessment Total Risk Factor Score: 3 Thrombosis Risk Factor Assessment Level: Moderate Risk Assessment and Plan Plan: 1. Acute metabolic encephalopathy possibly related to hypoglycemia. Levemir and NovoLog scheduled on hold. Patient will be placed on CBG before meals and at bedtime with scale only. Renal diet. 2. Recent fall with ongoing thoracic back pain and lumbar pain. CAT scan of the thoracic and lumbar spines ordered without contrast. 3. Volume overload secondary to missed HD session on Friday. HD today and tomorrow. 4. End-stage renal disease on hemodialysis Friday. Nephrology consult appreciated Continue Nephrocaps, PhosLo. 5. History of coronary artery disease with prior stenting of the LAD. 6. Hyponatremia secondary to chronic kidney disease. 7. Anemia of chronic kidney disease. 8. Hypertension. Continue amlodipine2.5 mg daily, Lasix 20 mg twice daily. 9. Hyperlipidemia. Continue atorvastatin 80 mg at bedtime 10. Gastroesophageal reflux disease and GI prophylaxis. Protonix. 11. Diabetes mellitus type 2, insulin requiring. Hold Levemir and NovoLog scheduled. NovoLog scale before meals and at bedtime only. 12. Generalized anxiety disorder and recurrent depression. 13. DVT prophylaxis. Heparin subcu. Patient will be admitted to the hospital for a minimum of 2 night stay. Discharge plan: [facility] return. Social work consult. Impression and plan of care have been directed as dictated by the signing ph ysician. Emely Contreras nurse practitioner acting as scribe for signing physician.
[2019-11-23] MEDS: CALCIUM ACETATE 667 MG TAB PO SCH ×2 (15:42→17:43)
[2019-11-23] MEDS: amLODIPine 2.5 MG TAB PO SCH (15:42)
[2019-11-23 16:46] LABS: % Iron Saturation 15.15 (12.00-45.00); Ferritin 1417.4 ng/mL (10.0-291.0)
[2019-11-23 17:03] LABS: Glucose,Whole Blood 89 mg/dL (75-99)
[2019-11-23] MEDS: INSULIN ASPART (NovoLOG) 100 UNIT/ML VIAL SQ SCH ×2 (17:37→21:22)
[2019-11-23] MEDS: CLOPIDOGREL 75 MG TAB PO SCH (17:43)
[2019-11-23 20:46] LABS: Glucose,Whole Blood 141 mg/dL (75-99)
[2019-11-23] MEDS: LORazepam 1 MG TAB PO SCH (21:20)
[2019-11-23] MEDS: DOCUSATE 100 MG CAP PO SCH (21:20)
[2019-11-23] MEDS: MELATONIN 5 MG TABLET PO SCH (21:20)
[2019-11-23] MEDS: ATORVASTATIN 80 MG TAB PO SCH (21:20)
[2019-11-23] MEDS: HYDROcodone/APAP 10-325MG 1 EACH TAB PO PRN (21:27)
[2019-11-23] MEDS: HEPARIN SODIUM,PORCINE 5,000 UNIT/ML 1 ML VIAL SQ SCH (21:27)
--- NOTE | 2019-11-23 22:39 | CT ---
EXAMINATION TYPE: CT thor lumbar spine wo con DATE OF EXAM: 11/23/2019 COMPARISON: 10/09/2018 HISTORY: Fall region CT, pain TECHNIQUE: Axial images were obtained at 3 mm thick sections from the thoracic to the lumbar spine. R econstructed images in the coronal and sagittal plane are reviewed on the computer. FINDINGS: There is a scoliosis present with convexity to the left centered in the mid thoracic region . This could be partially positional. No spinal canal stenosis is evident. Vertebral body heights are preserved. RIBS within the [id number] as visualized appear intact. Disc bulging with mild anterior thecal sac compression is present L2-3. Moderate anterior thecal sac compression from disc bulge is present L3-4 and L4-5 COMPARISON: 10/09/2018. The kyphosis within the mid thoracic region is stable. Spondylosis is unchange d. No progression of degenerative disc changes or vertebral body changes are evident.. IMPRESSION: 1. Stable kyphosis and scoliosis within the thoracic and lumbar spine. 2. No acute osseous abnormality within the axial skeleton or additional osseous structures within the [id number]. 3. Degenerative disc bulging present L2-3 through L4-5.
[2019-11-24] MEDS: FUROSEMIDE 20 MG TAB PO SCH ×2 (05:54→15:47)
[2019-11-24] MEDS: LEVOTHYROXINE 88 MCG TAB PO SCH (05:55)
[2019-11-24 07:09] LABS: Glucose,Whole Blood 156 mg/dL (75-99)
[2019-11-24] MEDS: INSULIN ASPART (NovoLOG) 100 UNIT/ML VIAL SQ SCH ×4 (07:58→21:13)
[2019-11-24] MEDS: ESCITALOPRAM 20 MG TAB PO SCH (07:59)
[2019-11-24] MEDS: amLODIPine 2.5 MG TAB PO SCH (07:59)
[2019-11-24] MEDS: DOCUSATE 100 MG CAP PO SCH ×2 (08:00→21:12)
[2019-11-24] MEDS: HEPARIN SODIUM,PORCINE 5,000 UNIT/ML 1 ML VIAL SQ SCH ×2 (08:00→21:13)
[2019-11-24] MEDS: ASPIRIN 81 MG PO SCH (08:00)
[2019-11-24] MEDS: PANTOPRAZOLE 40 MG TABLET PO SCH (08:00)
[2019-11-24] MEDS: LORazepam 1 MG TAB PO SCH ×2 (08:00→21:12)
[2019-11-24] MEDS: CALCIUM ACETATE 667 MG TAB PO SCH ×3 (08:00→17:59)
[2019-11-24] MEDS: CLOPIDOGREL 75 MG TAB PO SCH (08:00)
--- NOTE | 2019-11-24 09:45 | P.PN ---
Subjective patient is seen in follow-up for incisional disease. She is maintained on hemodialysis on Friday schedule. Mentation improved. She is more awake and alert today. Denies chest pain. Tolerated dialysis well yesterday. Vital signs are stable. General: The patient appeared well nourished and normally developed. HEENT: Head exam is unremarkable. Neck is without jugular venous distension. LUNGS: Breath sounds decreased. HEART: Rate and Rhythm are regular. ABDOMEN: soft, nontender. Obese. EXTREMITITES: 1+ edema. Objective - Vital Signs Vital signs: Vital Signs Temp 97.9 F 11/24/19 04:33 Pulse 63 11/24/19 04:33 Resp 16 11/24/19 04:33 BP 136/71 11/24/19 04:33 Pulse Ox 98 11/24/19 04:33 Intake & Output 11/23/19 11/24/19 11/24/19 18:59 06:59 18:59 Output Total 0 Balance 0 Output: Urine 0 Other: # Voids 0 0 # Bowel Movements 1 - Labs CBC & Chem 7: 11/22/19 21:08 11/22/19 21:08 Labs: Abnormal Lab Results - Last 24 Hours (Table) 11/22/19 11/23/19 11/24/19 Range/Units 21:08 20:43 07:08 POC Glucose (mg/dL) 141 H 156 H (75-99) mg/dL Iron 30 L (50-170) ug/dL TIBC 198 L (228-460) ug/dL Ferritin 1417.4 H (10.0-291.0) ng/mL Assessment and Plan Plan: Assessment: 1. End-stage renal disease maintained on hemodialysis on Friday schedule. 2. Hyponatremia secondary to chronic kidney disease. Hypervolemic. expect im provement postdialysis. 3. Hypertension with chronic kidney disease. Stable. 4. Anemia of chronic kidney disease. high ferritin level noted. 5. Volume overload. better post ultrafiltration. 6. Altered mental status. Possibly uremia from missed dialysis. also concern for hypoglycemia. better. 7. Chronic kidney disease mineral bone disease maintained on PhosLo. Plan: Hemodialysis today. Add Aranesp.
[2019-11-24] MEDS ORDERED: DARBEPOETIN ALFA 40 MCG/0.4 ML SYRINGE SQ SCH (10:00)
[2019-11-24 11:18] LABS: Glucose,Whole Blood 323 mg/dL (75-99)
--- NOTE | 2019-11-24 14:21 | P.PN ---
Subjective Progress Note Date: 11/24/19 This is a 64-year-old obese female patient of JAE Cordova, Mayank with multiple medical problem was known to have end-stage kidney disease on hemodialysis Friday, coronary artery disease and prior coronary artery stenting, diabetes type 2 insulin requiring, dyslipidemia, history of permanent pacemaker. Patient is a long-term resident at [facility]. She underwent her usual hemodialysis on Friday but on Friday she refused to go. She does not remember refusing. She has had low blood sugars down to 65 and recently had insulin adjusted by Dr Michelle Goel. Patient also had a fall at [facility] last week injuring her back. Plain film x-rays were done that were negative for fracture. Patient continues to complain of back pain and CAT scan will be ordered. Patient was sent in from [facility] regarding generalized weakness. Patient noted to be slow to answer questions with mental status changes. Patient presented to [facility] emergency center. She was af ebrile, heart rate 60, blood pressure 145/60, pulse ox 98%. WBC 10.8, hemoglobin 9.7. Sodium 129, potassium 5.3, chloride 90, CO2 22, BUN 52 and creatinine 8.83, blood sugar 100. Total bilirubin 1.4, AST 54, ALT 31, 1 phosphatase 112. Lactic acid 1.1. Troponin 0.071. EKG was a ventricular paced rhythm. Chest x-ray reveals cardiomegaly, interstitial vascular prominence and small effusions. Correlate for mild heart failure. [facility] with [facility]rology. Patient is currently undergoing hemodialysis was scheduled hemodialysis tomorrow as well. 11/23:patient is scheduled again today for hemodialysis. Dr. Souza has added and Aranesp. Patient's mental status is improving. she is eating more 75% of her meals. Blood sugars have increasedinpatient will be resumed on lower dose of Levemir to start tonight and continued on NovoLog scale. Repeat blood work will be ordered for tomorrow. CAT scan of the thoracic and lumbar spine revealed stable kyphosis and scoliosis with in the thoracic and lumbar spine. No acute osseous abnormality. Anticipate possible return to [facility] in the next 24-48 hours. Objective - Vital Signs Vital signs: Vital Signs Temp 98.0 F 11/24/19 11:45 Pulse 63 11/24/19 11:45 Resp 16 11/24/19 11:45 BP 117/54 11/24/19 11:45 Pulse Ox 98 11/24/19 11:45 Intake & Output 11/23/19 11/24/19 11/24/19 18:59 06:59 18:59 Output Total 0 Balance 0 Output: Urine 0 Other: # Voids 0 0 # Bowel Movements 1 - Exam Review of Systems Constitutional: Reports fatigue, denies sweats, Reports weakness, reports fatigue, Denies chills, Denies fever Eyes: denies blurred vision, denies pain Ears, nose, mouth and throat: Denies headache, Denies nasal congestion, Denies nasal discharge, Denies sore throat, Denies vertigo Cardiovascular: Denies chest pain, denies shortness of breath, Denies dyspnea on exertion, Denies edema Respiratory: Reports cough with sputum, Denies cough, Denies dyspnea, Denies hemoptysis, Denies wheezing Gastrointestinal: Denies abdominal pain, Denies diarrhea, Denies loss of naresh etite, Denies nausea, Denies vomiting Genitourinary: Denies dysuria, Denies hematuria Musculoskeletal: Reports muscle weakness, Denies myalgias, reports lumbar and thoracic back pain Integumentary: Denies pruritus, Denies rash, Denies wounds Neurological: Denies numbness, Denies weakness Psychiatric: Denies anxiety, Denies depression Endocrine: Denies fatigue, Denies weight change Physical examination Gen: This is a 63-year-old obese female. Patient is lying flat in bed and appears to be comfortable. No respiratory distress is noted. HEENT: Head is atraumatic, normocephalic. Pupils equal, round. Sclerae is anicteric. NECK: Supple. No JVD. No lymphadenopathy. No thyromegaly. LUNGS: Clear to auscultation. No wheezes or rhonchi. No intercostal retractions. HEART: Regular rate and rhythm. Systolic murmur. ABDOMEN: Soft. Bowel sounds are present. No masses. No tenderness. EXTREMITIES: No pedal edema. No calf tenderness. NEUROLOGICAL: Patient is awake, oriented x3. Generalized weakness. No focal neural deficits. - Labs CBC & Chem 7: 11/22/19 21:08 11/22/19 21:08 Labs: Abnormal Lab Results - Last 24 Hours (Table) 11/22/19 11/23/19 11/24/19 Range/Units 21:08 20:43 07:08 POC Glucose (mg/dL) 141 H 156 H (75-99) mg/dL Iron 30 L (50-170) ug/dL TIBC 198 L (228-460) ug/dL Ferritin 1417.4 H (10.0-291.0) ng/mL 11/24/19 Range/Units 11:16 POC Glucose (mg/dL) 323 H (75-99) mg/dL Iron (50-170) ug/dL TIBC (228-460) ug/dL Ferritin (10.0-291.0) ng/mL Assessment and Plan Plan: 1. Acute metabolic encephalopathy possibly related to hypoglycemia, possibly uremia, resolving. Renal diet. 2. Recent fall with ongoing thoracic back pain and lumbar pain. CAT scan of the thoracic and lumbar spines ordered without contrast. 3. Volume overload secondary to missed HD session on Friday. HD today and tomorrow. 4. End-stage renal disease on hemodialysis Friday. Nephrology consult appreciated Continue Nephrocaps, PhosLo. 5. History of coronary artery disease with prior stenting of the LAD. 6. Hyponatremia secondary to chronic kidney disease. 7. Anemia of chronic kidney disease. 8. Hypertension. Continue amlodipine2.5 mg daily, Lasix 20 mg twice daily. 9. Hyperlipidemia. Continue atorvastatin 80 mg at bedtime 10. Gastroesophageal reflux disease and GI prophylaxis. Protonix. 11. Diabetes mellitus type 2, insulin requiring. Hold NovoLog scheduled. Resume Levemir at lower dose of 15 units at bedtime and continue NovoLog scale before meals and at bedtime. 12. Generalized anxiety disorder and recurrent depression. 13. DVT prophylaxis. Heparin subcu. Discharge plan: [facility] return. Social work consult. Impression and plan of care have been directed as dictated by the signing physician. Emely Contreras nurse practitioner acting as scribe for signing physician.
[2019-11-24 17:06] LABS: Glucose,Whole Blood 172 mg/dL (75-99)
[2019-11-24] MEDS ORDERED: FOLIC ACID-VIT B COMPLEX-VIT C 1 CAP PO SCH (21:00)
[2019-11-24] MEDS ORDERED: INSULIN DETEMIR (LEVEMIR) 100 UNIT/ML SYR SQ SCH (21:00)
[2019-11-24] MEDS: HYDROcodone/APAP 10-325MG 1 EACH TAB PO PRN (21:12)
[2019-11-24] MEDS: MELATONIN 5 MG TABLET PO SCH (21:12)
[2019-11-24] MEDS: ATORVASTATIN 80 MG TAB PO SCH (21:12)
[2019-11-24 21:15] LABS: Glucose,Whole Blood 175 mg/dL (75-99)
[2019-11-25 02:07] LABS: Glucose,Whole Blood 124 mg/dL (75-99)
[2019-11-25 06:21] VITALS: BP 107/49; PULSE 61; RESP 16; TEMP 98.2
[2019-11-25] MEDS: FUROSEMIDE 20 MG TAB PO SCH (06:23)
[2019-11-25] MEDS: LEVOTHYROXINE 88 MCG TAB PO SCH (06:24)
[2019-11-25 06:34] LABS: Anisocytosis Slight; HCT 29.7 % (34.0-46.0); HGB 9.1 gm/dL (11.4-16.0); Hypochromasia Moderate; MCH 30.3 pg (25.0-35.0); MCHC 30.7 g/dL (31.0-37.0); MCV 98.6 fL (80.0-100.0); Macrocytosis Slight; Mean Platelet Volume 8.6; Platelet Count 209 k/uL (150-450); RBC 3.01 m/uL (3.80-5.40); RDW 18.9 % (11.5-15.5); WBC 6.6 k/uL (3.8-10.6)
[2019-11-25 06:39] LABS: Albumin 3.3 g/dL (3.5-5.0); Calcium 9.6 mg/dL (8.4-10.2); Potassium 3.8 mmol/L (3.5-5.1); Total Bilirubin 1.4 mg/dL (0.2-1.3); Total Protein 6.3 g/dL (6.3-8.2)
[2019-11-25 07:00] LABS: Glucose,Whole Blood 128 mg/dL (75-99)
[2019-11-25] MEDS: INSULIN ASPART (NovoLOG) 100 UNIT/ML VIAL SQ SCH (07:02)
[2019-11-25] MEDS: CALCIUM ACETATE 667 MG TAB PO SCH (07:38)
[2019-11-25] MEDS: HEPARIN SODIUM,PORCINE 5,000 UNIT/ML 1 ML VIAL SQ SCH (07:38)
[2019-11-25] MEDS: CLOPIDOGREL 75 MG TAB PO SCH (07:39)
[2019-11-25] MEDS: DOCUSATE 100 MG CAP PO SCH (07:39)
[2019-11-25] MEDS: LORazepam 1 MG TAB PO SCH (07:39)
[2019-11-25] MEDS: PANTOPRAZOLE 40 MG TABLET PO SCH (07:39)
[2019-11-25] MEDS: ASPIRIN 81 MG PO SCH (07:39)
[2019-11-25] MEDS: amLODIPine 2.5 MG TAB PO SCH (07:41)
[2019-11-25] MEDS: ESCITALOPRAM 20 MG TAB PO SCH (07:41)
[2019-11-25] MEDS ORDERED: FOLIC ACID-VIT B COMPLEX-VIT C 1 CAP PO SCH (09:00)
--- NOTE | 2019-11-25 09:51 | P.DS ---
Providers Date of admission: 11/22/19 23:15 Expected date of discharge: 11/25/19 Attending physician: Kimberli Gar Consults: 11/22/19 22:49 Consult Physician Routine Consulting Provider: Meseret Aguillon Consult Reason/Comments: Needs Dialysis; Missed last two treatments Do you want consulting provider notified?: Yes Primary care physician: Kimberli Gar Hospital Course: This is a 64-year-old obese female patient of Drs. Gar, JAE Jc, Mayank with multiple medical problem was known to have end-stage kidney disease on hemodialysis Friday, coronary artery disease and prior coronary artery stenting, diabetes type 2 insulin requiring, dyslipidemia, history of permanent pacemaker. Patient is a long-term resident at [facility]. She underwent her usual hemodialysis on Friday but on Friday she refused to go. She does not remember refusing. She has had low blood sugars down to 65 and recently had insulin adjusted by Dr Michelle Goel. Patient also had a fall at [facility] last week injuring her back. Plain film x-rays were done that were negative for fracture. Patient continues to complain of back pain and CAT scan will be ordered. Patient was sent in from [facility] regarding generalized weakness. Patient noted to be slow to answer questions with mental status changes. Patient presented to [facility] emergency center. She was afebrile, heart rate 60, blood pressure 145/60, pulse ox 98%. WBC 10.8, hemoglobin 9.7. Sodium 129, potassium 5.3, chloride 90, CO2 22, BUN 52 and creatinine 8.83, blood sugar 100. Total bilirubin 1.4, AST 54, ALT 31, 1 phosphatase 112. Lactic acid 1.1. Troponin 0.071. EKG was a ventricular paced rhythm. Chest x-ray reveals cardiomegaly, interstitial vascular prominence and small effusions. Correlate for mild heart failure. Patient was admitted to the Medr floor and consult with nephrology. Patient is currently undergoing hemodialysis was scheduled hemodialysis tomorrow as well. 11/23:patient is scheduled again today for hemodialysis. Dr. Souza has added and Aranesp. Patient's mental status is improving. she is eating more 75% of her meals. Blood sugars have increasedinpatient will be resumed on lower dose of Levemir to start tonight and continued on NovoLog scale. Repeat blood work will be ordered for tomorrow. CAT scan of the thoracic and lumbar spine revealed stable kyphosis and scoliosis with in the thoracic and lumbar spine. No acute osseous abnormality. Anticipate possible return to [facility] in the next 24-48 hours. 11/24: Patient denies any new complaints. Mental status is back to baseline. Patient is been afebrile, heart rate 61, blood pressure 107/49, pulse ox 97% on room air. Repeat blood work revealed WBC 6.6, hemoglobin 9.1, BUN 27 creatinine 4.80. Electrolytes normal. Blood sugars running between 124 175. Total bilirubin 1.4, AST 110, ALT 102, alkaline phosphatase 126. PT to work with patient today and plan for discharge back to [facility] today in stable condition. Patient will be back on hemodialysis Friday schedule. Discharge diagnosis: 1. Acute metabolic encephalopathy possibly related to hypoglycemia, possibly uremia, resolving. 2. Recent fall with ongoing thoracic back pain and lumbar pain. 3. Volume overload secondary to missed HD session on Friday. 4. End-stage renal disease on hemodialysis Friday. 5. History of coronary artery disease with prior stenting of the LAD. 6. Hyponatremia secondary to chronic kidney disease. 7. Anemia of chronic kidney disease. 8. Hypertension. 9. Hyperlipidemia. 10. Gastroesophageal reflux disease. 11. Diabetes mellitus type 2, insulin requiring. 12. Generalized anxiety disorder and recurrent depression. Discharge plan: [facility] return under the care of Dr. Gar. Impression and plan of care have been directed as dictated by the signing physician. Emely Contreras nurse practitioner acting as scribe for signing physician. Patient Condition at Discharge: Good Plan - Discharge Summary Discharge Rx Participant: Yes New Discharge Prescriptions: New Darbepoetin Collin [Aranesp] 40 mcg SQ Q7D #0 syringe Continue Atorvastatin [Lipitor] 80 mg PO HS@2100 Calcium Acetate [PhosLo] 2,001 mg PO AC-TID Acetaminophen Tab [Tylenol] 500 mg PO Q6H PRN PRN Reason: Pain Docusate Sodium [Dok] 100 mg PO BID@0900,2100 Furosemide [Lasix] 20 mg PO BID@0600,1200 Ondansetron [Zofran] 4 mg PO Q6H PRN PRN Reason: Nausea And Vomiting Folic Acid-Vit B Complex-Vit C [Nephrocaps] 1 cap PO MOWEFR@2100 Folic Acid-Vit B Complex-Vit C [Nephrocaps] 1 mg PO SUTUTHSA@0900 Melatonin 10 mg PO HS@2100 Escitalopram [Lexapro] 20 mg PO DAILY@0900 Aspirin EC [Ecotrin Low Dose] 81 mg PO DAILY@0900 Nitroglycerin Sl Tabs [Nitrostat] 0.4 mg SUBLINGUAL Q5M PRN tab PRN Reason: Chest Pain amLODIPine [Norvasc] 2.5 mg PO DAILY@0900 Clopidogrel [Plavix] 75 mg PO DAILY@0900 Calcium Acetate [PhosLo] 667 mg PO TID PRN PRN Reason: SNACKS Levothyroxine Sodium [Synthroid] 175 mcg PO DAILY@0600 Sodium Polystyrene Sulfonate 15 gm PO SUTUTHSA Artificial Tears-Hypromellose [Artificial Tear Drops] 1 drops RIGHT EYE Q12H PRN PRN Reason: REDDNESS/DRYNESS bisacodyL [Bisacodyl] 10 mg RECTAL DAILY PRN PRN Reason: Constipation Dextrose/Dextrin/Maltose [Insta-Glucose Gel] 1 applic PO DAILY PRN PRN Reason: Hypoglycemia Glucagon Emergency Kit 1 mg IM ONCE PRN PRN Reason: Hypoglycemia guaiFENesin [Mucinex] 600 mg PO Q12H PRN PRN Reason: Congestion Insulin Aspart [NovoLOG] See Protocol SQ ACHS Lidocaine-Prilocaine Cream [Emla Cream 2.5%/2.5%] 1 applic TOPICAL MOWEFR PRN PRN Reason: Pain Loperamide [Imodium] 2 mg PO Q4H PRN PRN Reason: Loose Stool Na Phos,M-B/Na Phos,Di-Ba [Fleet Adult] 118 ml RECTAL DAILY PRN PRN Reason: Constipation Hydrocodone/Acetaminophen [[place] 10-325] 1 tab PO BID PRN #6 tab PRN Reason: pain Changed LORazepam [Ativan] 1 mg PO BID@0900,2100 #6 tab Insulin Glargine,Hum.rec.anlog [Basaglar Kwikpen U-100] 20 unit SQ HS@2100 #0 Discontinued Insulin Aspart [NovoLOG] 3 units SQ AC-TID Discharge Medication List Atorvastatin [Lipitor] 80 mg PO HS@2100 12/27/16 [History] Calcium Acetate [PhosLo] 2,001 mg PO AC-TID 09/02/18 [History] Acetaminophen Tab [Tylenol] 500 mg PO Q6H PRN 01/11/19 [History] Docusate Sodium [Dok] 100 mg PO BID@0900,209901/11/19 [History] Furosemide [Lasix] 20 mg PO BID@0600,1200 01/11/19 [History] Aspirin EC [Ecotrin Low Dose] 81 mg PO DAILY@89904/02/19 [History] Escitalopram [Lexapro] 20 mg PO DAILY@89904/02/19 [History] Folic Acid-Vit B Complex-Vit C [Nephrocaps] 1 cap PO MOWEFR@209904/02/19 [History] Folic Acid-Vit B Complex-Vit C [Nephrocaps] 1 mg PO SUTUTHSA@89904/02/19 [History] Melatonin 10 mg PO HS@209904/02/19 [History] Ondansetron [Zofran] 4 mg PO Q6H PRN 04/02/19 [History] Nitroglycerin Sl Tabs [Nitrostat] 0.4 mg SUBLINGUAL Q5M PRN tab 04/06/19 [Rx] Clopidogrel [Plavix] 75 mg PO DAILY@89904/09/19 [History] amLODIPine [Norvasc] 2.5 mg PO DAILY@89904/09/19 [History] Calcium Acetate [PhosLo] 667 mg PO TID PRN 11/05/19 [History] Levothyroxine Sodium [Synthroid] 175 mcg PO DAILY@59911/05/19 [History] Sodium Polystyrene Sulfonate 15 gm PO SUTUTHSA 11/05/19 [History] Artificial Tears-Hypromellose [Artificial Tear Drops] 1 drops RIGHT EYE Q12H PRN 11/23/19 [History] Dextrose/Dextrin/Maltose [Insta-Glucose Gel] 1 applic PO DAILY PRN 11/23/19 [History] Glucagon Emergency Kit 1 mg IM ONCE PRN 11/23/19 [History] Insulin Aspart [NovoLOG] See Protocol SQ ACHS 11/23/19 [History] Lidocaine-Prilocaine Cream [Emla Cream 2.5%/2.5%] 1 applic TOPICAL MOWEFR PRN 11/23/19 [History] Loperamide [Imodium] 2 mg PO Q4H PRN 11/23/19 [History] Na Phos,M-B/Na Phos,Di-Ba [Fleet Adult] 118 ml RECTAL DAILY PRN 11/23/19 [History] bisacodyL [Bisacodyl] 10 mg RECTAL DAILY PRN 11/23/19 [History] guaiFENesin [Mucinex] 600 mg PO Q12H PRN 11/23/19 [History] Darbepoetin Collin [Aranesp] 40 mcg SQ Q7D #0 syringe 11/25/19 [Rx] Hydrocodone/Acetaminophen [[place] 10-325] 1 tab PO BID PRN #6 tab 11/25/19 [Rx] Insulin Glargine,Hum.rec.anlog [Basaglar Kwikpen U-100] 20 unit SQ HS@2100 #0 11/25/19 [Rx] LORazepam [Ativan] 1 mg PO BID@0900,2100 #6 tab 11/25/19 [Rx] Follow up Appointment(s)/Referral(s): Kimberli Gar MD [Primary Care Provider] - 1-2 days Discharge Disposition: TRANSFER TO SNF/ECF
--- NOTE | 2019-11-25 10:12 | P.PN ---
Subjective patient is seen in follow-up for end-stage renal disease. She is maintained on hemodialysis on Friday schedule. Mentation improved. awake and alert. Denies chest pain. Tolerated dialysis well yesterday. Vital signs are stable. General: The patient appeared well nourished and normally developed. HEENT: Head exam is unremarkable. Neck is without jugular venous distension. LUNGS: Breath sounds decreased. HEART: Rate and Rhythm are regular. ABDOMEN: soft, nontender. Obese. EXTREMITITES: 1+ edema. Objective - Vital Signs Vital signs: Vital Signs Temp 98.2 F 11/25/19 04:36 Pulse 61 11/25/19 04:36 Resp 16 11/25/19 04:36 BP 107/49 11/25/19 04:36 Pulse Ox 97 11/25/19 04:36 Intake & Output 11/24/19 11/25/19 11/25/19 18:59 06:59 18:59 Output Total 3000 Balance -3000 Output: Hemodialysis 3000 Other: # Voids 0 0 - Labs CBC & Chem 7: 11/25/19 05:33 11/25/19 05:33 Labs: Abnormal Lab Results - Last 24 Hours (Table) 11/24/19 11/24/19 11/24/19 Range/Units 11:16 17:04 21:14 RBC (3.80-5.40) m/uL Hgb (11.4-16.0) gm/dL Hct (34.0-46.0) % MCHC (31.0-37.0) g/dL RDW (11.5-15.5) % BUN (7-17) mg/dL Creatinine (0.52-1.04) mg/dL Glucose (74-99) mg/dL POC Glucose (mg/dL) 323 H 172 H 175 H (75-99) mg/dL Total Bilirubin (0.2-1.3) mg/dL AST (14-36) U/L ALT (4-34) U/L Albumin (3.5-5.0) g/dL 11/25/19 11/25/19 11/25/19 Range/Units 02:05 05:33 05:33 RBC 3.01 L (3.80-5.40) m/uL Hgb 9.1 L (11.4-16.0) gm/dL Hct 29.7 L (34.0-46.0) % MCHC 30.7 L (31.0-37.0) g/dL RDW 18.9 H (11.5-15.5) % BUN 27 H (7-17) mg/dL Creatinine 4.80 H (0.52-1.04) mg/dL Glucose 127 H (74-99) mg/dL POC Glucose (mg/dL) 124 H (75-99) mg/dL Total Bilirubin 1.4 H (0.2-1.3) mg/dL AST 110 H (14-36) U/L ALT 102 H (4-34) U/L Albumin 3.3 L (3.5-5.0) g/dL 11/25/19 Range/Units 06:57 RBC (3.80-5.40) m/uL Hgb (11.4-16.0) gm/dL Hct (34.0-46.0) % MCHC (31.0-37.0) g/dL RDW (11.5-15.5) % BUN (7-17) mg/dL Creatinine (0.52-1.04) mg/dL Glucose (74-99) mg/dL POC Glucose (mg/dL) 128 H (75-99) mg/dL Total Bilirubin (0.2-1.3) mg/dL AST (14-36) U/L ALT (4-34) U/L Albumin (3.5-5.0) g/dL Assessment and Plan Plan: Assessment: 1. End-stage renal disease maintained on hemodialysis on Friday schedule. 2. Hyponatremia secondary to chronic kidney disease. Hypervolemic. improved postdialysis. 3. Hypertension with chronic kidney disease. Stable. 4. Anemia of chronic kidney disease. high ferritin level noted. maintained on Aranesp. 5. Volume overload. better post ultrafiltration. 6. Altered mental status. Possibly uremia from missed dialysis. also concern for hypoglycemia. better. 7. Chronic kidney disease mineral bone disease maintained on PhosLo. Plan: Hemodialysis tomorrow.
== END 2019-11-25 11:45 ==
LOC: EC 19:03 → 6NMEDSUR 23:15
PROVIDERS: ADMIT Internal Medicine; ATTEND Internal Medicine
DX: G93.41 Metabolic encephalopathy (principal); Z91.15 Patient's noncompliance with renal dialysis; M54.6 Pain in thoracic spine; M54.5 Low back pain; I12.0 Hypertensive chronic kidney disease with stage 5 chronic kidney disease or end stage renal disease; E87.70 Fluid overload, unspecified; E11.22 Type 2 diabetes mellitus with diabetic chronic kidney disease; N18.6 End stage renal disease; E87.1 Hypo-osmolality and hyponatremia; I25.10 Atherosclerotic heart disease of native coronary artery without angina pectoris; E78.5 Hyperlipidemia, unspecified; F41.1 Generalized anxiety disorder; F31.9 Bipolar disorder, unspecified; K59.00 Constipation, unspecified; M41.9 Scoliosis, unspecified; Z99.2 Dependence on renal dialysis; D63.1 Anemia in chronic kidney disease; K21.9 Gastro-esophageal reflux disease without esophagitis; E66.9 Obesity, unspecified; Z68.36 Body mass index [BMI] 36.0-36.9, adult; M89.8X9 Other specified disorders of bone, unspecified site; I25.2 Old myocardial infarction; F03.90 Unspecified dementia, unspecified severity, without behavioral disturbance, psychotic disturbance, mood disturbance, and anxiety; M19.90 Unspecified osteoarthritis, unspecified site; I25.5 Ischemic cardiomyopathy; J30.9 Allergic rhinitis, unspecified; E55.9 Vitamin D deficiency, unspecified; E07.9 Disorder of thyroid, unspecified; I51.7 Cardiomegaly; Z91.81 History of falling; Z86.14 Personal history of Methicillin resistant Staphylococcus aureus infection; Z90.49 Acquired absence of other specified parts of digestive tract; Z98.84 Bariatric surgery status; Z96.41 Presence of insulin pump (external) (internal); Z95.5 Presence of coronary angioplasty implant and graft; Z95.0 Presence of cardiac pacemaker; Z79.4 Long term (current) use of insulin; Z86.74 Personal history of sudden cardiac arrest; Z86.19 Personal history of other infectious and parasitic diseases; Z99.3 Dependence on wheelchair; Z79.899 Other long term (current) drug therapy; Z79.82 Long term (current) use of aspirin; Z79.890 Hormone replacement therapy; Z79.891 Long term (current) use of opiate analgesic; Z79.02 Long term (current) use of antithrombotics/antiplatelets; Z91.041 Radiographic dye allergy status; Z88.8 Allergy status to other drugs, medicaments and biological substances; Z91.048 Other nonmedicinal substance allergy status; Z90.710 Acquired absence of both cervix and uterus; Z83.3 Family history of diabetes mellitus; Z82.49 Family history of ischemic heart disease and other diseases of the circulatory system; Z84.1 Family history of disorders of kidney and ureter
CPT/HCPCS: 90970 ×2; 96372 ×3; 99285; 36415; 93005; 80053 ×2; 82728; 83540; 83550; 83605; 84484; 85025; 85027; 85610; 85730; 87040; 71046; 72128; 72131; G0378 ×4; G0257 ×2; J1644 ×3; J0881; 90935

== ENCOUNTER 2020-01-28 20:51 | Inpatient (IN) | payer MEDICARE, OTHER ==
[2020-01-28] MEDS ORDERED: HYDROcodone/APAP 10-325MG 1 EACH TAB PO ONE (22:50)
[2020-01-28] MEDS ORDERED: SODIUM CHLORIDE 0.9% 1,000 ML IV ONE (22:50)
[2020-01-28] MEDS ORDERED: VANCOMYCIN IV PER PHARMACY 1 EACH MISC MISCELLANE PRN (22:52)
[2020-01-28 23:53] LABS: HCT 35.4 % (34.0-46.0); HGB 11.2 gm/dL (11.4-16.0); Hypochromasia Moderate; MCH 31.6 pg (25.0-35.0); MCHC 31.6 g/dL (31.0-37.0); MCV 99.9 fL (80.0-100.0); Macrocytosis Slight; Mean Platelet Volume 10.4; RBC 3.55 m/uL (3.80-5.40); RDW 15.7 % (11.5-15.5); WBC 6.2 k/uL (3.8-10.6)
[2020-01-28 23:59] LABS: Platelet Count 112 k/uL (150-450)
[2020-01-29] MEDS ORDERED: VANCOMYCIN 2,250 MG in SODIUM CHLORIDE 0.9% 500 ML 500 ML IVPB ONE ×2
--- NOTE | 2020-01-29 00:08 | CT ---
EXAMINATION TYPE: CT abdomen pelvis wo con DATE OF EXAM: 01/28/2020 COMPARISON: 09/21/2013 HISTORY: Masses in tissue of abdomen. CT DLP: 902.1 mGycm Automated exposure control for dose reduction was used. There is right pleural effusion. Heart is slightly enlarged.. There is some infiltrate and atelectasi s right lung base. There are clips from cholecystectomy. There is gastric sleeve. Liver and spleen appear intact. There is vascular calcification. The stomach is intact. There is no evidence of pancreatic mass. There is no adrenal mass. Kidneys show some atrophy. There is no hydronephrosis. There is extensive r enal vascular calcification. There is no retroperitoneal adenopathy. Ureters are not dilated. There i s no evidence of a pelvic mass. Bladder distends smoothly. There are some sigmoid diverticula. There is no sign of diverticulitis. There is no mesenteric edema. There is no ascites or free air. There is no evidence of bowel obstruct ion. Appendix is not seen. There is no sign of thickened appendix. There is tiny amount of free fluid in the pelvis. The lumbar vertebra have normal alignment. There is no compression fracture. There is moderately arpan re spinal stenosis at L4-5 due to posterior disc herniation and facet arthropathy. The hip joints are intact. The bony pelvis is intact. IMPRESSION: Right pleural effusion and right basilar infiltrate and atelectasis appears new compared to old exam. There is small amount of fluid in the pelvis. This could relate to congestive heart failure. Pelvic fluid is new compared to old exam. L4-5 moderately severe spinal stenosis also present on old exam. Extensive atherosclerotic vascular calcification.
[2020-01-29 00:10] LABS: Total Bilirubin 1.4 mg/dL (0.2-1.3)
[2020-01-29 00:27] LABS: Albumin 3.9 g/dL (3.5-5.0); Potassium 4.9 mmol/L (3.5-5.1); Total Protein 7.2 g/dL (6.3-8.2)
--- NOTE | 2020-01-29 00:29 | ED ---
Skin/Abscess/FB HPI - General Chief complaint: Skin/Abscess/Foreign Body Stated complaint: Leg Infection Time Seen by Provider: 01/28/20 21:53 Source: patient, EMS Mode of arrival: EMS Limitations: no limitations - History of Present Illness Initial comments: 64 year-old female patient presents to the emergency department for evaluation of a left lower extremity wound with redness and drainage. Patient states that the symptoms started about a week ago. Patient denies being on antibiotics for this. Denies any fever or chills. Denies nausea or vomiting. States she is having pain to the leg. Patient is also reporting abdominal discomfort especial ly with palpation. She is also reporting hard abdominal "lumps" and abdominal pain. Denies any constipation or diarrhea. Patient denies any recent rash, cough, shortness of breath, chest pain, back pain, numbness, tingling, dizziness, weakness, hematuria, dysuria, urinary urgency, urinary frequency, headache, visual changes, or any other complaints. - Related Data Home Medications Medication Instructions Recorded Confirmed Atorvastatin [Lipitor] 80 mg PO HS@209912/27/16 01/28/20 Calcium Acetate [PhosLo] 2,001 mg PO AC-TID@,09/02/18 01/28/20 Acetaminophen Tab [Tylenol] 500 mg PO Q6H PRN 01/11/19 01/29/20 Docusate Sodium [Dok] 100 mg PO BID@899,209901/11/19 01/28/20 Aspirin EC [Ecotrin Low Dose] 81 mg PO DAILY@89904/02/19 01/28/20 Escitalopram [Lexapro] 20 mg PO DAILY@89904/02/19 01/28/20 Folic Acid-Vit B Complex-Vit C 1 cap PO MOWEFR@209904/02/19 01/28/20 [Nephrocaps] Folic Acid-Vit B Complex-Vit C 1 mg PO SUTUTHSA@89904/02/19 01/28/20 [Nephrocaps] Melatonin 10 mg PO HS@209904/02/19 01/28/20 Ondansetron [Zofran] 4 mg PO Q6H PRN 04/02/19 01/29/20 Clopidogrel [Plavix] 75 mg PO DAILY@89904/09/19 01/28/20 amLODIPine [Norvasc] 2.5 mg PO DAILY@0900 04/09/19 01/28/20 Calcium Acetate [PhosLo] 667 mg PO TID PRN 11/05/19 01/29/20 Levothyroxine Sodium [Synthroid] 175 mcg PO DAILY@0600 11/05/19 01/28/20 Sodium Polystyrene Sulfonate 15 gm PO SUTUTHSA@0900 11/05/19 01/28/20 Artificial Tears-Hypromellose 1 drops RIGHT EYE Q12H PRN 11/23/19 01/29/20 [Artificial Tear Drops] Dextrose/Dextrin/Maltose 1 applic PO DAILY PRN 11/23/19 01/29/20 [Insta-Glucose Gel] Glucagon Emergency Kit 1 mg IM ONCE PRN 11/23/19 01/29/20 Insulin Aspart [NovoLOG] See Protocol SQ ACHS@08,12,17,11/23/19 01/29/20 Lidocaine-Prilocaine Cream [Emla 1 applic TOPICAL MOWEFR PRN 11/23/19 01/29/20 Cream 2.5%/2.5%] Loperamide [Imodium] 2 mg PO Q4H PRN 11/23/19 01/29/20 bisacodyL [Bisacodyl] 10 mg RECTAL DAILY PRN 11/23/19 01/29/20 guaiFENesin [Mucinex] 600 mg PO Q12H PRN 11/23/19 01/29/20 Furosemide [Lasix] 80 mg PO DAILY@0901/28/20 01/28/20 Insulin Glargine,Hum.rec.anlog 32 unit SQ HS@209901/29/20 01/28/20 [Basaglar Kwikpen U-100] Previous Rx's Medication Instructions Recorded Nitroglycerin Sl Tabs [Nitrostat] 0.4 mg SUBLINGUAL Q5M PRN tab 04/06/19 Hydrocodone/Acetaminophen [[place] 1 tab PO BID PRN #6 tab 11/25/19 10-325] LORazepam [Ativan] 1 mg PO BID@0900,2100 #6 tab 11/25/19 Allergies Allergy/AdvReac Type Severity Reaction Status Date / Time adhesive Allergy Rash/Hives Verified 11/23/19 08:42 Penicillins Allergy Rash/Hives Verified 11/23/19 08:42 Iodinated Contrast Media AdvReac KIDNEY Verified 11/23/19 08:42 [Iodinated Contrast- Oral FAILURE and IV Dye] metformin AdvReac SUGAR Verified 11/23/19 08:42 LEVEL INCREASE Review of Systems ROS Statement: Those systems with pertinent positive or pertinent negative responses have been documented in the HPI. ROS Other: All systems not noted in ROS Statement are negative. Past Medical History Past Medical History: Coronary Artery Disease (CAD), Chest Pain / Angina, Dementia, Diabetes Mellitus, Dialysis, Hyperlipidemia, Hypertension, Liver Disease, Myocardial Infarction (IA), Osteoarthritis (OA), Thyroid Disorder Additional Past Medical History / Comment(s): multiple IA's x18. ischemic cardiomyopathy. 12/29/15 STRESS WNL, ALLERGIC rhinitis,IA, CARDIO-PULMONARY ARR EST 07/05/14 vertigo, hypertensive nephrosclerosis, Hepatitis A,Vitamin D deficiency, constipation, hx of a cat bit, fall with broken pelvis Last Myocardial Infarction Date:: 09/2013 History of Any Multi-Drug Resistant Organisms: MRSA, VRE Date of last positivie culture/infection: 11/11/18-VRE; 09/27/17 MRSA MDRO Source:: Urine-VRE; Right Breast-MRSA Past Surgical History: Adenoidectomy, Appendectomy, Cholecystectomy, Heart Catheterization With Stent, Hysterectomy, Tonsillectomy Additional Past Surgical History / Comment(s): mary cataracts, LAP-BAND 2004, Laparoscopic cholecystectomy, FIBULA FX has metal pins in place,Left shoulder surgery, Hemodialysis Cataract bilateral with IOL, fistula and sx to" reroute it",gets dialysis fri-fri-fri. has insulin pump. no bp on left, excisional debreidment rt lower ext., foot surgery Past Anesthesia/Blood Transfusion Reactions: Motion Sickness, Postoperative Nausea & Vomiting (PONV) Additional Past Anesthesia/Blood Transfusion Reaction / Comment(s): blood transfusion-pt stated they gave her medication for a reaction but does'nt rememebr what the reaction was Date of Last Stent Placement:: 2014 Past Psychological History: Anxiety, Bipolar, Depression Smoking Status: Never smoker Past Alcohol Use History: None Reported Past Drug Use History: None Reported - Past Family History Mother Family Medical History: Congestive Heart Failure (CHF), Diabetes Mellitus, Hypertension Father History Unknown: Yes Family Medical History: Diabetes Mellitus Brother(s) Family Medical History: Diabetes Mellitus, Hyperlipidemia Additional Family Medical History / Comment(s): Hypertension chronic kidney disease General Exam Limitations: no limitations General appearance: alert, in no apparent distress, other ENT exam: Present: normal exam, normal oropharynx, mucous membranes moist Respiratory exam: Present: normal lung sounds bilaterally. Absent: respiratory distress, wheezes, rales, rhonchi, stridor Cardiovascular Exam: Present: regular rate, normal rhythm, normal heart sounds. Absent: systolic murmur, diastolic murmur, rubs, gallop, clicks GI/Abdominal exam: Present: soft, tenderness (Generalized), normal bowel sounds, other (Hard mass to the left upper quadrant, presumably lap band port. ). Absent: distended, guarding, rebound, rigid Neurological exam: Present: alert, oriented X3, CN II-XII intact Psychiatric exam: Present: normal affect, normal mood Skin exam: Present: warm, dry, intact, normal color. Absent: rash Course Vital Signs 01/28/20 01/28/20 20:54 23:53 Temperature 98.6 F Pulse Rate 64 60 Respiratory 17 18 Rate Blood Pressure 121/52 126/52 O2 Sat by Pulse 97 97 Oximetry Medical Decision Making - Medical Decision Making 74-year-old female patient presents to the emergency department today for evaluation of redness, swelling, pain to the left lower extremity. Patient st ates she developed a wound over the last few days. States it has been draining. Physical examination did reveal erythema, warmth superficial wound to the left molina. Neurovascular status is intact. She is also reporting abdominal pain and "hard lumps". Labs reviewed and were unremarkable. CT abdomen and pelvis was obtained and was negative for acute abnormalities. We'll admit patient for IV antibiotics and further evaluation. She is agreeable. - Lab Data Result diagrams: 01/28/20 22:55 01/28/20 22:55 Lab Results 01/28/20 01/28/20 01/28/20 Range/Units 22:55 22:55 22:55 WBC 6.2 (3.8-10.6) k/uL RBC 3.55 L (3.80-5.40) m/uL Hgb 11.2 L (11.4-16.0) gm/dL Hct 35.4 (34.0-46.0) % MCV 99.9 (80.0-100.0) fL MCH 31.6 (25.0-35.0) pg MCHC 31.6 (31.0-37.0) g/dL RDW 15.7 H (11.5-15.5) % Plt Count 112 L (150-450) k/uL MPV 10.4 Neutrophils % (Manual) 75 % Band Neuts % (Manual) 2 % Lymphocytes % (Manual) 10 % Monocytes % (Manual) 8 % Eosinophils % (Manual) 5 % Neutrophils # (Manual) 4.70 (1.3-7.7) k/uL Lymphocytes # (Manual) 0.62 L (1.0-4.8) k/uL Monocytes # (Manual) 0.50 (0-1.0) k/uL Eosinophils # (Manual) 0.31 (0-0.7) k/uL Nucleated RBCs 0 (0-0) /100 WBC Manual Slide Review Performed Hypochromasia Moderate Poikilocytosis (manual Present Anisocytosis (manual) Present Macrocytosis Slight Sodium 133 L (137-145) mmol/L Potassium 4.9 (3.5-5.1) mmol/L Chloride 95 L (98-107) mmol/L Carbon Dioxide 28 (22-30) mmol/L Anion Gap 10 mmol/L BUN 17 (7-17) mg/dL Creatinine 3.52 H (0.52-1.04) mg/dL Est GFR (CKD-EPI)AfAm 15 (>60 ml/min/1.73 sqM) Est GFR (CKD-EPI)NonAf 13 (>60 ml/min/1.73 sqM) Glucose 370 H (74-99) mg/dL Plasma Lactic Acid Dougie 1.4 (0.7-2.0) mmol/L Calcium 9.0 (8.4-10.2) mg/dL Total Bilirubin 1.4 H (0.2-1.3) mg/dL AST 51 H (14-36) U/L ALT 24 (4-34) U/L Alkaline Phosphatase 94 (38-126) U/L Total Protein 7.2 (6.3-8.2) g/dL Albumin 3.9 (3.5-5.0) g/dL Lipase 39 (23-300) U/L - Radiology Data Radiology results: report reviewed, image reviewed CT abdomen and pelvis is obtained. Report was reviewed in its entirety. Impression by Dr. Jiang shows right pleural effusion and right basilar infiltrate and atelectasis appears new compared to old exam. There is small amount of pellet in the pelvis. This could relate to congestive heart failure. Pelvic fluid is new compared to old exam. L4 to 5 moderately severe spinal stenosis also present on old exam. Extensive atherosclerotic vascular calcification. Disposition Clinical Impression: Left leg cellulitis, Leg wound, left Disposition: ADMITTED IP TO THIS [facility] Condition: Serious Decision to Admit Reason: Admit from EC Decision Date: 01/29/20 Decision Time: 00:36
[2020-01-29] MEDS ORDERED: NALOXONE 0.4 MG/ML 1 ML VIAL IV PRN (00:40)
[2020-01-29] MEDS ORDERED: ACETAMINOPHEN TAB 325 MG TAB PO PRN (00:40)
[2020-01-29] MEDS ORDERED: ONDANSETRON 4 MG TAB PO PRN (00:41)
[2020-01-29 00:44] LABS: Anisocytosis (M) Present; Band Neutrophils % 2 %; Eosinophils # (M) 0.31 k/uL (0-0.7); Lymphocytes # (M) 0.62 k/uL (1.0-4.8); Neutrophils % (M) 75 %; Nucleated Red Blood Cells 0 /100 WBC (0-0); Poikilocytosis (M) Present; Total Cells Counted 100
[2020-01-29] MEDS: LEVOTHYROXINE 75 MCG TAB PO SCH (06:17)
[2020-01-29] MEDS: LEVOTHYROXINE 100 MCG TAB PO SCH (06:17)
[2020-01-29] MEDS: FUROSEMIDE 80 MG TAB PO SCH (08:28)
[2020-01-29] MEDS: LORazepam 1 MG TAB PO SCH ×2 (08:28→23:05)
[2020-01-29] MEDS: CALCIUM ACETATE 667 MG TAB PO SCH ×3 (08:28→16:18)
[2020-01-29] MEDS: CLOPIDOGREL 75 MG TAB PO SCH (08:28)
[2020-01-29] MEDS: ASPIRIN 81 MG PO SCH (08:28)
[2020-01-29] MEDS: DOCUSATE 100 MG CAP PO SCH ×2 (08:28→23:04)
[2020-01-29] MEDS: HYDROcodone/APAP 10-325MG 1 EACH TAB PO PRN (08:32)
--- NOTE | 2020-01-29 09:36 | P.HPIM ---
History of Present Illness H&P Date: 01/29/20 Chief Complaint: left lower leg cellulitis This is a 64-year-old obese female patient of JAE Cordova Zafar with multiple medical problem was known to have end-stage kidney disease on hemodialysis Friday, coronary artery disease and prior coronary artery stenting, diabetes type 2 insulin requiring, dyslipidemia, history of permanent pacemaker. Patient is a long-term resident at [facility]. I went to see the patient yesterday because of increased weeping in both lower extremities for the past 2 weeks and after adjusting her Lasix to 80 mg orally once every day instead of 20 mg orally once every day, patient developed to have of blisters to the left lower extremity and this blister became denuded and started to have significant erythema and pain around the area patient appeared to be in acute cellulitis with significant change from the last time she was seen she was urged to go to the emergency department at [facility] for evaluation and possibly IV antibiotic use, because she is immune compromised due to her underlying chronic medical conditions, patient was seen in the ER and she was admitted to the hospital for acute cellulitis of the left lower extremity, infectious disease consultation will be obtained from . Review of Systems Constitutional: Reports anorexia, Reports chronic pain, Reports fatigue, Reports malaise, Reports weakness, Reports weight loss Eyes: denies blurred vision, denies bulging eye, denies decreased vision Ears, nose, mouth and throat: Denies dysphagia, Denies neck lump, Denies sore throat Cardiovascular: Reports decreased exercise tolerance, Reports dyspnea on exertion, Reports leg edema, Reports shortness of breath, Denies chest pain, Denies rapid heart beat, Denies syncope Respiratory: Denies congestion, Denies cough with sputum, Denies home oxygen, Denies sleep apnea, Denies snoring, Denies wheezing Gastrointestinal: Reports loss of appetite, Denies abdominal pain, Denies bloating, Denies BRBPR, Denies excessive gas, Denies heartburn, Denies melena, Denies nausea, Denies vomiting Genitourinary: Denies dysuria, Denies nocturia Menstruation: Reports postmenopausal Musculoskeletal: Reports frequent falls, Reports gait dysfunction, Reports low back pain, Reports morning stiffness Musculoskeletal: bilateral: ankle swelling, absent: ankle pain, ankle stiffness, elbow pain, elbow stiffness, elbow swelling, foot pain, foot stiffness, foot swelling, hand pain, hand stiffness, hand swelling, hip pain, hip stiffness, hip swelling, knee pain, knee stiffness, knee swelling, shoulder pain, shoulder sti ffness, shoulder swelling, wrist pain, wrist stiffness, wrist swelling Integumentary: Reports brittle nails, Reports darkening of skin, Reports dryness, Reports wounds (Patient does appear to have a noted the blister with erythema base and significant cellulitis around the area of the left lower extremity) Neurological: Reports gait dysfunction, Reports numbness, Reports weakness Psychiatric: Reports anxiety, Reports depression, Reports sleep disturbances, Denies suicidal ideation Endocrine: Denies fatigue, Denies weight change Past Medical History Past Medical History: Coronary Artery Disease (CAD), Chest Pain / Angina, Dementia, Diabetes Mellitus, Dialysis, Hyperlipidemia, Hypertension, Liver Disease, Myocardial Infarction ([place]), Osteoarthritis (OA), Thyroid Disorder Additional Past Medical History / Comment(s): multiple TX's x18. ischemic cardiomyopathy. 12/29/15 STRESS WNL, ALLERGIC rhinitis,[place], CARDIO-PULMONARY ARRE ST 07/05/14 vertigo, hypertensive nephrosclerosis, Hepatitis A,Vitamin D deficiency, constipation, hx of a cat bit, fall with broken pelvis Last Myocardial Infarction Date:: 09/2013 History of Any Multi-Drug Resistant Organisms: MRSA, VRE Date of last positivie culture/infection: 11/11/18-VRE; 09/27/17 MRSA MDRO Source:: Urine-VRE; Right Breast-MRSA Past Surgical History: Adenoidectomy, Appendectomy, Cholecystectomy, Heart Catheterization With Stent, Hysterectomy, Tonsillectomy Additional Past Surgical History / Comment(s): mary cataracts, LAP-BAND 2004, Laparoscopic cholecystectomy, FIBULA FX has metal pins in place,Left shoulder surgery, Hemodialysis Cataract bilateral with IOL, fistula and sx to" reroute it",gets dialysis fri-fri-fri. has insulin pump. no bp on left, excisional debreidment rt lower ext., foot surgery Past Anesthesia/Blood Transfusion Reactions: Motion Sickness, Postoperative Nausea & Vomiting (PONV) Additional Past Anesthesia/Blood Transfusion Reaction / Comment(s): blood transfusion-pt stated they gave her medication for a reaction but does'nt rememebr what the reaction was Date of Last Stent Placement:: 2014 Past Psychological History: Anxiety, Bipolar, Depression Smoking Status: Never smoker Past Alcohol Use History: None Reported Past Drug Use History: None Reported - Past Family History Mother Family Medical History: Congestive Heart Failure (CHF), Diabetes Mellitus, Hypertension Father History Unknown: Yes Family Medical History: Diabetes Mellitus Brother(s) Family Medical History: Diabetes Mellitus, Hyperlipidemia Additional Family Medical History / Comment(s): Hypertension chronic kidney disease Medications and Allergies Home Medications Medication Instructions Recorded Confirmed Type Atorvastatin [Lipitor] 80 mg PO HS@209912/27/16 01/28/20 History Calcium Acetate [PhosLo] 2,001 mg PO AC-TID@,09/02/18 01/28/20 History Acetaminophen Tab [Tylenol] 500 mg PO Q6H PRN 01/11/19 01/29/20 History Docusate Sodium [Dok] 100 mg PO BID@899,209901/11/19 01/28/20 History Aspirin EC [Ecotrin Low Dose] 81 mg PO DAILY@89904/02/19 01/28/20 History Escitalopram [Lexapro] 20 mg PO DAILY@89904/02/19 01/28/20 History Folic Acid-Vit B Complex-Vit C 1 cap PO MOWEFR@209904/02/19 01/28/20 History [Nephrocaps] Folic Acid-Vit B Complex-Vit C 1 mg PO SUTUTHSA@89904/02/19 01/28/20 History [Nephrocaps] Melatonin 10 mg PO HS@209904/02/19 01/28/20 History Ondansetron [Zofran] 4 mg PO Q6H PRN 04/02/19 01/29/20 History Nitroglycerin Sl Tabs [Nitrostat] 0.4 mg SUBLINGUAL Q5M PRN tab 04/06/19 01/29/20 Rx Clopidogrel [Plavix] 75 mg PO DAILY@89904/09/19 01/28/20 History amLODIPine [Norvasc] 2.5 mg PO DAILY@89904/09/19 01/28/20 History Calcium Acetate [PhosLo] 667 mg PO TID PRN 11/05/19 01/29/20 History Levothyroxine Sodium [Synthroid] 175 mcg PO DAILY@0611/05/19 01/28/20 History Sodium Polystyrene Sulfonate 15 gm PO SUTUTHSA@0900 11/05/19 01/28/20 History Artificial Tears-Hypromellose 1 drops RIGHT EYE Q12H PRN 11/23/19 01/29/20 History [Artificial Tear Drops] Dextrose/Dextrin/Maltose 1 applic PO DAILY PRN 11/23/19 01/29/20 History [Insta-Glucose Gel] Glucagon Emergency Kit 1 mg IM ONCE PRN 11/23/19 01/29/20 History Insulin Aspart [NovoLOG] See Protocol SQ ACHS@08,,,11/23/19 01/29/20 History Lidocaine-Prilocaine Cream [Emla 1 applic TOPICAL MOWEFR PRN 11/23/19 01/29/20 History Cream 2.5%/2.5%] Loperamide [Imodium] 2 mg PO Q4H PRN 11/23/19 01/29/20 History bisacodyL [Bisacodyl] 10 mg RECTAL DAILY PRN 11/23/19 01/29/20 History guaiFENesin [Mucinex] 600 mg PO Q12H PRN 11/23/19 01/29/20 History Hydrocodone/Acetaminophen [[place] 1 tab PO BID PRN #6 tab 11/25/19 01/29/20 Rx 10-325] LORazepam [Ativan] 1 mg PO BID@0900,2100 #6 tab 11/25/19 01/28/20 Rx Furosemide [Lasix] 80 mg PO DAILY@0900 01/28/20 01/28/20 History Insulin Glargine,Hum.rec.anlog 32 unit SQ HS@209901/29/20 01/28/20 History [Basaglar Kwikpen U-100] Allergies Allergy/AdvReac Type Severity Reaction Status Date / Time adhesive Allergy Rash/Hives Verified 11/23/19 08:42 Penicillins Allergy Rash/Hives Verified 11/23/19 08:42 Iodinated Contrast Media AdvReac KIDNEY Verified 11/23/19 08:42 [Iodinated Contrast- Oral FAILURE and IV Dye] metformin AdvReac SUGAR Verified 11/23/19 08:42 LEVEL INCREASE Physical Exam Vitals: Vital Signs Temp Pulse Pulse Resp BP BP Pulse Ox 01/29/20 05:25 98.2 F 61 16 118/49 98 01/29/20 02:57 97.7 F 60 16 111/74 94 L 01/28/20 23:53 60 18 126/52 97 01/28/20 20:54 98.6 F 64 17 121/52 97 Intake and Output 01/28/20 01/29/20 01/29/20 22:59 06:59 14:59 Intake Total 590 Balance 590 Intake: Oral 590 Other: Weight 127.006 kg 127.006 kg Physical examination: General: 64-year-old female who is laying down in bed appears to be very weak does not appear to be in acute distress at this point in time. HEENT: Head is atraumatic, normocephalic, pupils were equal round reactive to light and recommendation, extraocular muscle movement were intact, sclera nonicteric, conjunctivae were pale, mucous membranes of the mouth are somewhat dry. Neck: Supple, no JVP, decreased carotid upstroke bilaterally, no lymphadenopathy. Chest: Decreased breath sounds at the bases, few rhonchi, no extremity wheezes, no chest wall tenderness, no intercostal retractions. Heart: First heart sound is depressed, second heart sounds normal, there is systolic ejection murmur 2/6 located in the left sternal border. Abdomen: Soft, nontender, nondistended, positive bowel sounds. Extremities: There is a denuded blister to the left lower extremity with an erythema base and significant cellulitis around that area involving the lateral part of her left lower extremity, there is neuropathic changes in both lower extremities with hammertoes, salicylate is were decreased bilaterally. Neurologic examination: Patient is awake alert and oriented 3, cranial nerves III-12 appear grossly intact, muscle power were 4 out of 5 in upper extremities and 3 out of 5 in bilateral lower extremities, deep tendon reflexes were depressed bilaterally, there is also neuropathic changes to both lower extremity with decreased sensation. Results CBC & Chem 7: 01/28/20 22:55 01/28/20 22:55 Labs: Abnormal Lab Results - Last 24 Hours (Table) 01/28/20 01/28/20 Range/Units 22:55 22:55 RBC 3.55 L (3.80-5.40) m/uL Hgb 11.2 L (11.4-16.0) gm/dL RDW 15.7 H (11.5-15.5) % Plt Count 112 L (150-450) k/uL Lymphocytes # (Manual) 0.62 L (1.0-4.8) k/uL Sodium 133 L (137-145) mmol/L Chloride 95 L (98-107) mmol/L Creatinine 3.52 H (0.52-1.04) mg/dL Glucose 370 H (74-99) mg/dL Total Bilirubin 1.4 H (0.2-1.3) mg/dL AST 51 H (14-36) U/L Thrombosis Risk Factor Assmnt - DVT/VTE Prophylaxis DVT/VTE Prophylaxis: Pharmacologic Prophylaxis ordered - Choose All That Apply Each Factor Represents 1 point: Obesity (BMI >25) Each Risk Factor Represents 2 Points: Age 61-74 years Thrombosis Risk Factor Assessment Total Risk Factor Score: 3 Thrombosis Risk Factor Assessment Level: Moderate Risk Assessment and Plan Assessment: Assessment and plan: 1. Acute cellulitis of the left lower extremity that failed outpatient management. Start the patient on IV antibiotic vancomycin with pharmacy to dose its peak and trough, this will be given with hemodialysis, continue Rocephin 1 g IV piggyback every 24 hours, we will continue with Silvadene cream 1% to apply to the left lower extremity with an Abner wrap, keep the leg elevated, blood culture, wound culture, infectious disease consultation. 2. End-stage renal disease on hemodialysis Friday. Nephrology consult appreciated Continue Nephrocaps, KareysLo. 3. History of coronary artery disease with prior stenting of the LAD. We will continue the patient on aspirin 81 mg once every day, Plavix 75 mg orally once every day, Lipitor 80 mg once every day. 4. Hyponatremia likely related to hypovolemia post hemodialysis yesterday. Monitor the patient CMP. 5. Anemia of chronic kidney disease. We will check the patient's iron and ferritin level along with total iron-binding capacity. 6. Hypertension. Continue amlodipine2.5 mg daily. 7. Hyperlipidemia. Continue atorvastatin 80 mg at bedtime 8. Gastroesophageal reflux disease and GI prophylaxis. Protonix. 9. Diabetes mellitus type 2, insulin requiring. We will continue Levemir 32 units at bedtime along with the Humalog per sliding scale insulin. 10. Generalized anxiety disorder and recurrent depression. Continue Lexapro 20 mg orally once every day as well as Ativan 1 mg orally twice every day. 11. Hypothyroidism. Continue patient on levothyroxine 175 g orally once every day. 12. History of some symptomatic bradycardia status post permanent pacemaker placement. Stable. 13. DVT prophylaxis. Start the patient on heparin 5000 units subcutaneously every 12 hours. 14. GI prophylaxis. Start the patient on for tonics 40 minute gram orally once every day. 15. Medical debility. Physical therapy evaluation. 16. warp worker consultation for discharge planning to [facility]. 17. Patient is full code. 18. Admit to inpatient. Estimated length of stay 2 midnights.
[2020-01-29] MEDS ORDERED: VANCOMYCIN 2,000 MG in SODIUM CHLORIDE 0.9% 500 ML 500 ML IVPB ONE (12:00)
[2020-01-29] MEDS: amLODIPine 2.5 MG TAB PO SCH (12:06)
[2020-01-29] MEDS: FOLIC ACID-VIT B COMPLEX-VIT C 1 CAP PO SCH (12:06)
[2020-01-29] MEDS: ESCITALOPRAM 20 MG TAB PO SCH (12:06)
[2020-01-29] MEDS: HEPARIN SODIUM,PORCINE 5,000 UNIT/ML 1 ML VIAL SQ SCH ×2 (12:11→23:04)
--- NOTE | 2020-01-29 13:40 | P.NPCON ---
History of Present Illness - Reason for Consult Consult date: 01/29/20 end stage renal disease - Chief Complaint Cellulitis - History of Present Illness This is a 64-year-old female known to us with ESRD on dialysis Friday. She was dialyzed yesterday and then was admitted because of cellulitis of her left leg. She is diabetic with history of coronary artery disease (make her and is known to have had a chronic murmur. She's had cardiac catheterization in the past with ischemic cardiomyopathy. Also known with bipolar depression Past Medical History Past Medical History: Coronary Artery Disease (CAD), Chest Pain / Angina, Dementia, Diabetes Mellitus, Dialysis, Hyperlipidemia, Hypertension, Liver Dis ease, Myocardial Infarction ([place]), Osteoarthritis (OA), Thyroid Disorder Additional Past Medical History / Comment(s): multiple [place]'s x18. ischemic cardiomyopathy. 12/29/15 STRESS WNL, ALLERGIC rhinitis,[place], CARDIO-PULMONARY ARREST 07/05/14 vertigo, hypertensive nephrosclerosis, Hepatitis A,Vitamin D deficiency, constipation, hx of a cat bit, fall with broken pelvis Last Myocardial Infarction Date:: 09/2013 History of Any Multi-Drug Resistant Organisms: MRSA, VRE Date of last positivie culture/infection: 11/11/18-VRE; 09/27/17 MRSA MDRO Source:: Urine-VRE; Right Breast-MRSA Past Surgical History: Adenoidectomy, Appendectomy, Cholecystectomy, Heart Catheterization With Stent, Hysterectomy, Tonsillectomy Additional Past Surgical History / Comment(s): mary cataracts, LAP-BAND 2004, Laparoscopic cholecystectomy, FIBULA FX has metal pins in place,Left shoulder surgery, Hemodialysis Cataract bilateral with IOL, fistula and sx to" reroute it",gets dialysis fri-fri-fri. has insulin pump. no bp on left, excisional debreidment rt lower ext., foot surgery Past Anesthesia/Blood Transfusion Reactions: Motion Sickness, Postoperative Nausea & Vomiting (PONV) Additional Past Anesthesia/Blood Transfusion Reaction / Comment(s): blood transfusion-pt stated they gave her medication for a reaction but does'nt rememebr what the reaction was Date of Last Stent Placement:: 2014 Past Psychological History: Anxiety, Bipolar, Depression Smoking Status: Never smoker Past Alcohol Use History: None Reported Past Drug Use History: None Reported - Past Family History Mother Family Medical History: Congestive Heart Failure (CHF), Diabetes Mellitus, Hypertension Father History Unknown: Yes Family Medical History: Diabetes Mellitus Brother(s) Family Medical History: Diabetes Mellitus, Hyperlipidemia Additional Family Medical History / Comment(s): Hypertension chronic kidney disease Medications and Allergies Home Medications Medication Instructions Recorded Confirmed Type Atorvastatin [Lipitor] 80 mg PO HS@209912/27/16 01/28/20 History Calcium Acetate [PhosLo] 2,001 mg PO AC-TID@09/02/18 01/28/20 History Acetaminophen Tab [Tylenol] 500 mg PO Q6H PRN 01/11/19 01/29/20 History Docusate Sodium [Dok] 100 mg PO BID@899,209901/11/19 01/28/20 History Aspirin EC [Ecotrin Low Dose] 81 mg PO DAILY@89904/02/19 01/28/20 History Escitalopram [Lexapro] 20 mg PO DAILY@89904/02/19 01/28/20 History Folic Acid-Vit B Complex-Vit C 1 cap PO MOWEFR@209904/02/19 01/28/20 History [Nephrocaps] Folic Acid-Vit B Complex-Vit C 1 mg PO SUTUTHSA@89904/02/19 01/28/20 History [Nephrocaps] Melatonin 10 mg PO HS@209904/02/19 01/28/20 History Ondansetron [Zofran] 4 mg PO Q6H PRN 04/02/19 01/29/20 History Nitroglycerin Sl Tabs [Nitrostat] 0.4 mg SUBLINGUAL Q5M PRN tab 04/06/19 01/29/20 Rx Clopidogrel [Plavix] 75 mg PO DAILY@89904/09/19 01/28/20 History amLODIPine [Norvasc] 2.5 mg PO DAILY@89904/09/19 01/28/20 History Calcium Acetate [PhosLo] 667 mg PO TID PRN 11/05/19 01/29/20 History Levothyroxine Sodium [Synthroid] 175 mcg PO DAILY@0600 11/05/19 01/28/20 History Sodium Polystyrene Sulfonate 15 gm PO SUTUTHSA@89911/05/19 01/28/20 History Artificial Tears-Hypromellose 1 drops RIGHT EYE Q12H PRN 11/23/19 01/29/20 History [Artificial Tear Drops] Dextrose/Dextrin/Maltose 1 applic PO DAILY PRN 11/23/19 01/29/20 History [Insta-Glucose Gel] Glucagon Emergency Kit 1 mg IM ONCE PRN 11/23/19 01/29/20 History Insulin Aspart [NovoLOG] See Protocol SQ ACHS@08,12,17,21 11/23/19 01/29/20 History Lidocaine-Prilocaine Cream [Emla 1 applic TOPICAL MOWEFR PRN 11/23/19 01/29/20 History Cream 2.5%/2.5%] Loperamide [Imodium] 2 mg PO Q4H PRN 11/23/19 01/29/20 History bisacodyL [Bisacodyl] 10 mg RECTAL DAILY PRN 11/23/19 01/29/20 History guaiFENesin [Mucinex] 600 mg PO Q12H PRN 11/23/19 01/29/20 History Hydrocodone/Acetaminophen [[place] 1 tab PO BID PRN #6 tab 11/25/19 01/29/20 Rx 10-325] LORazepam [Ativan] 1 mg PO BID@0900,2100 #6 tab 11/25/19 01/28/20 Rx Furosemide [Lasix] 80 mg PO DAILY@0900 01/28/20 01/28/20 History Insulin Glargine,Hum.rec.anlog 32 unit SQ HS@2100 01/29/20 01/28/20 History [Basaglar Kwikpen U-100] Allergies Allergy/AdvReac Type Severity Reaction Status Date / Time adhesive Allergy Rash/Hives Verified 11/23/19 08:42 Penicillins Allergy Rash/Hives Verified 11/23/19 08:42 Iodinated Contrast Media AdvReac KIDNEY Verified 11/23/19 08:42 [Iodinated Contrast- Oral FAILURE and IV Dye] metformin AdvReac SUGAR Verified 11/23/19 08:42 LEVEL INCREASE Physical Exam Vitals: Vital Signs Temp Pulse Pulse Resp BP BP Pulse Ox 01/29/20 12:33 97.6 F 60 16 145/84 99 01/29/20 05:25 98.2 F 61 16 118/49 98 01/29/20 02:57 97.7 F 60 16 111/74 94 L 01/28/20 23:53 60 18 126/52 97 01/28/20 20:54 98.6 F 64 17 121/52 97 Intake and Output 01/28/20 01/29/20 01/29/20 22:59 06:59 14:59 Intake Total 590 Balance 590 Intake: Oral 590 Other: Weight 127.006 kg 127.006 kg On examination awake alert oriented cheerful HEENT exam no JVP neck is supple no facial asymmetry Lungs are clear to auscultation with good air entry bilaterally Heart sounds are unremarkable no murmur rub gallop Abdomen soft nontender Extremity exam was mild edema, she has redness involves the lower third of her leg mostly on the left. Neurologically awake alert oriented Results - Lab Results Most recent lab results Calcium 9.0 mg/dL (8.4-10.2) 01/28/20 22:55 01/28/20 22:55 01/28/20 22:55 Assessment and Plan Assessment: Impression 1. ESRD on dialysis Friday 2. Admitted with cellulitis left leg. 3. History of ASHD, cardiac catheterization, ischemic cardiomyopathy, 4 history of diabetes 5. History of bipolar depression. 6. Anemia hemoglobin 7.2 on target Recommendations 1. Will maintain her dialysis schedule 2. continue antibiotics
[2020-01-29 15:51] VITALS: BMI 45.1
--- NOTE | 2020-01-29 22:58 | CONS ---
CONSULTATION DATE OF SERVICE: 01/29/2020. REASON FOR FOLLOWUP: Left lower extremity wound and cellulitis. HISTORY OF PRESENT ILLNESS: The patient is a 54-year-old female presenting to the ER for evaluation of left lower extremity wound and cellulitis. The patient mentioned she did have swelling in her legs, subsequently developed a blister that has ruptured leading to formation of superficial ulceration of the left leg that has not healed over last one week despite some local treatment the patient has been using. The patient is complaining of pain to the left lower extremity, more of a dull aching, at times sharp 5 to 6 out of 10 with no radiation with associated swelling and redness and some drainage. The patient did have some chills but denies high-grade fever. On arrival to the ER, the patient was afebrile. The patient did have a normal white count. She was noticed to have a creatinine 3.52. The patient was started on vancomycin and Rocephin. Admitted to the hospital. Infectious Disease was consulted for further management and antibiotic therapy. REVIEW OF SYSTEMS: Positive points have been mentioned in HPI. Rest of the systems are negative. PAST MEDICAL HISTORY: Coronary artery disease, diabetes mellitus, hypertension, hyperlipidemia, AL, hypothyroidism, osteoarthritis. PAST SURGICAL HISTORY: Hemorrhoidectomy, appendectomy, cholecystectomy, PTCA with stent, hysterectomy, tonsillectomy. SOCIAL HISTORY: No history of smoking, drinking or drug use. FAMILY HISTORY: No pertinent findings noticed. ALLERGIES: TO PENICILLIN, IODINATED CONTRAST MEDIA, METFORMIN. MEDICATIONS: Medication include the patient is currently on vancomycin, pharmacy to dose, Rocephin 1 g daily, Tylenol, [place], Norvasc, aspirin, Lipitor, PhosLo, Plavix, Colace, Lexapro, Lasix, Levemir, Synthroid, Ativan, melatonin, Narcan, Zofran and Protonix. PHYSICAL EXAMINATION: Blood pressure is 142/84 with a pulse of 50. Temperature 97.5. She is 100% on room air. General description: The patient is an elderly female lying in bed in no distress. No tachypnea or accessory muscles of respiration use. HEENT examination is slight pallor. No scleral icterus. Oral mucosal membranes dry. Neck: Trachea central. No thyromegaly. Lungs unlabored breathing, decreased breath sounds in the base, with no wheeze. Heart S1, S2. Regular rate and rhythm. ABDOMEN: Soft, no tenderness. No guarding. No rigidity. Extremities: Left leg did have diffuse swelling and redness, some superficial ulceration, minimal slough tissue. The redness has some drainage. No foul smelling. Neurological: Patient is awake, alert, oriented. Mood and affect normal. LABS: Hemoglobin is 11.8, white count 6.2, BUN of 17, creatinine 3.52. DIAGNOSTIC IMPRESSION AND PLAN: Patient with acute left lower extremity cellulitis, started with swelling, blister formation that subsequent ruptured leaving superficial ulceration secondary cellulitis likely from a gram-positive skin tran. Clinically doubt gram negative or an MRSA infection. PLAN: 1. Discontinue vancomycin and Rocephin. 2. Start cefazolin 2 g kidney function. 3. Local wound care with Medihoney followed by Abner wrap from just above to below the knee. 4. We will follow on clinical condition and culture to further adjust medication if needed. Thank you for this consultation. We will follow this patient along with you. MMODL / IJN: [id number] /
[2020-01-29] MEDS: MELATONIN 5 MG TABLET PO SCH (23:04)
[2020-01-29] MEDS: ATORVASTATIN 80 MG TAB PO SCH (23:04)
[2020-01-29] MEDS: INSULIN DETEMIR (LEVEMIR) 100 UNIT/ML SYR SQ SCH (23:05)
[2020-01-30] MEDS: INSULIN ASPART (NovoLOG) 100 UNIT/ML VIAL SQ SCH ×5 (00:15→21:44)
[2020-01-30] MEDS: LEVOTHYROXINE 100 MCG TAB PO SCH (05:34)
[2020-01-30] MEDS: LEVOTHYROXINE 75 MCG TAB PO SCH (05:34)
[2020-01-30 06:00] LABS: Basophils # (A) 0.1 k/uL (0-0.2); Basophils % (A) 1 %; Eosinophils # (A) 0.2 k/uL (0-0.7); Eosinophils % (A) 4 %; HCT 37.5 % (34.0-46.0); HGB 11.6 gm/dL (11.4-16.0); Hypochromasia Marked; Lymphocytes # (A) 0.6 k/uL (1.0-4.8); Lymphocytes % (A) 11 %; MCH 31.6 pg (25.0-35.0); MCHC 30.9 g/dL (31.0-37.0); MCV 102.3 fL (80.0-100.0); Macrocytosis Slight; Mean Platelet Volume 8.4; Monocytes # (A) 0.4 k/uL (0-1.0); Monocytes % (A) 8 %; Neutrophils # (A) 3.7 k/uL (1.3-7.7); Neutrophils % (A) 73 %; Platelet Count 123 k/uL (150-450); RBC 3.67 m/uL (3.80-5.40); RDW 15.6 % (11.5-15.5); WBC 5.1 k/uL (3.8-10.6)
[2020-01-30] MEDS ORDERED: INSULIN ASPART (NovoLOG) 100 UNIT/ML VIAL SQ SCH (07:30)
[2020-01-30 07:42] LABS: Glucose,Whole Blood 268 mg/dL (75-99)
[2020-01-30 08:29] LABS: Vancomycin,Random 31.7 ug/mL
[2020-01-30] MEDS: CLOPIDOGREL 75 MG TAB PO SCH (09:08)
[2020-01-30] MEDS: FUROSEMIDE 80 MG TAB PO SCH (09:09)
[2020-01-30] MEDS: PANTOPRAZOLE 40 MG TABLET PO SCH (09:09)
[2020-01-30] MEDS: LORazepam 1 MG TAB PO SCH ×2 (09:09→21:43)
[2020-01-30] MEDS: CALCIUM ACETATE 667 MG TAB PO SCH ×3 (09:09→17:03)
[2020-01-30] MEDS: HEPARIN SODIUM,PORCINE 5,000 UNIT/ML 1 ML VIAL SQ SCH ×2 (09:09→21:43)
[2020-01-30] MEDS: amLODIPine 2.5 MG TAB PO SCH (09:10)
[2020-01-30] MEDS: ESCITALOPRAM 20 MG TAB PO SCH (09:10)
[2020-01-30] MEDS: DOCUSATE 100 MG CAP PO SCH ×2 (09:10→21:43)
[2020-01-30] MEDS: ASPIRIN 81 MG PO SCH (09:10)
[2020-01-30] MEDS: FOLIC ACID-VIT B COMPLEX-VIT C 1 CAP PO SCH (09:11)
[2020-01-30 09:59] LABS: African American GFR (CKD) 9.6 (60.0-200.0); Albumin 3.6 g/dL (3.80-4.90); Albumin/Globulin Ratio 1.38 (1.60-3.17); Anion Gap 13.1 mmol/L (4.00-12.00); BUN/Creat Ratio 5.49 Ratio (12.00-20.00); Calcium 10.1 mg/dL (8.7-10.3); Carbon Dioxide 24.9 mmol/L (21.6-31.8); Globulin 2.6 g/dL (1.6-3.3); Non-African American GFR(CKD) 8.2 (60.0-200.0); Potassium 4.7 mmol/L (3.5-5.5); Total Bilirubin 0.6 mg/dL (0.2-1.2); Total Protein 6.2 g/dL (6.2-8.2)
--- NOTE | 2020-01-30 10:03 | P.PN ---
Subjective Progress Note Date: 01/30/20 This is a 64-year-old obese female patient of JAE Cordova, Mayank with multiple medical problem was known to have end-stage kidney disease on hemodialysis Friday, coronary artery disease and prior coronary artery stenting, diabetes type 2 insulin requiring, dyslipidemia, history of permanent pacemaker. Patient is a long-term resident at [facility]. I went to see the patient yesterday because of increased weeping in both lower extremities for the past 2 weeks and after adjusting her Lasix to 80 mg orally once every day instead of 20 mg orally once every day, patient developed to have of blisters to the left lower extremity and this blister became denuded and started to have significant erythema and pain around the area patient appeared to be in acute cellulitis with significant change from the last time she was seen she was urged to go to the emergency department at [facility] for evaluation and possibly IV antibiotic use, because she is immune compromised due to her underlying chronic medical conditions, patient was seen in the ER and she was admitted to the hospital for acute cellulitis of the left lower extremity, infectious disease consultation will be obtained from . 01/29: Patient is sitting up in bed in no apparent distress she appears to be fatigued and tired, she denies any chest pain or shortness breath at this time, she has no abdominal pain, she has had no diarrhea no fever or chills at this point, she was seen yesterday by infectious disease, she was switched to Ancef 2 g IV piggyback every 12 hours, and she was started on Medihoney for the left blister and wrapped every day, she will have hemodialysis tomorrow morning. Objective - Vital Signs Vital signs: Vital Signs Temp 98.7 F 01/30/20 05:26 Pulse 60 01/30/20 05:26 Resp 16 01/30/20 05:26 BP 134/63 01/30/20 05:26 Pulse Ox 100 01/30/20 05:26 Intake & Output 01/29/20 01/30/20 01/30/20 18:59 06:59 18:59 Intake Total 930 1180 Balance 930 1180 Weight 127.006 kg Intake: IV 30 Invasive Line 1 30 Oral 900 1180 Other: # Voids 0 - Exam Review of Systems Constitutional: Reports anorexia, Reports chronic pain, Reports fatigue, Reports malaise, Reports weakness, Reports weight loss Eyes: denies blurred vision, denies bulging eye, denies decreased vision Ears, nose, mouth and throat: Denies dysphagia, Denies neck lump, Denies sore throat Cardiovascular: Reports decreased exercise tolerance, Reports dyspnea on exertion, Reports leg edema, Reports shortness of breath, Denies chest pain, Denies rapid heart beat, Denies syncope Respiratory: Denies congestion, Denies cough with sputum, Denies home oxygen, Denies sleep apnea, Denies snoring, Denies wheezing Gastrointestinal: Reports loss of appetite, Denies abdominal pain, Denies bloating, Denies BRBPR, Denies excessive gas, Denies heartburn, Denies melena, Denies nausea, Denies vomiting Genitourinary: Denies dysuria, Denies nocturia Menstruation: Reports postmenopausal Musculoskeletal: Reports frequent falls, Reports gait dysfunction, Reports low back pain, Reports morning stiffness Musculoskeletal: bilateral: ankle swelling, absent: ankle pain, ankle stiffness, elbow pain, elbow stiffness, elbow swelling, foot pain, foot stiffness, foot swelling, hand pain, hand stiffness, hand swelling, hip pain, hip stiffness, hip swelling, knee pain, knee stiffness, knee swelling, shoulder pain, shoulder stiffness, shoulder swelling, wrist pain, wrist stiffness, wrist swelling Integumentary: Reports brittle nails, Reports darkening of skin, Reports dryness, Reports wounds (Patient does appear to have a noted the blister with erythema base and significant cellulitis around the area of the left lower extremity) Neurological: Reports gait dysfunction, Reports numbness, Reports weakness Psychiatric: Reports anxiety, Reports depression, Reports sleep disturbances, Denies suicidal ideation Endocrine: Denies fatigue, Denies weight change Physical examination: General: 64-year-old female who is laying down in bed appears to be very weak does not appear to be in acute distress at this point in time. HEENT: Head is atraumatic, normocephalic, pupils were equal round reactive to light and recommendation, extraocular muscle movement were intact, sclera nonicteric, conjunctivae were pale, mucous membranes of the mouth are somewhat dry. Neck: Supple, no JVP, decreased carotid upstroke bilaterally, no lymphadenopathy. Chest: Decreased breath sounds at the bases, few rhonchi, no extremity wheezes, no chest wall tenderness, no intercostal retractions. Heart: First heart sound is depressed, second heart sounds normal, there is systolic ejection murmur 2/6 located in the left sternal border. Abdomen: Soft, nontender, nondistended, positive bowel sounds. Extremities: There is a denuded blister to the left lower extremity with an erythema base and significant cellulitis around that area involving the lateral part of her left lower extremity, there is neuropathic changes in both lower extremities with hammertoes, salicylate is were decreased bilaterally. Neurologic examination: Patient is awake alert and oriented 3, cranial nerves I II-12 appear grossly intact, muscle power were 4 out of 5 in upper extremities and 3 out of 5 in bilateral lower extremities, deep tendon reflexes were depressed bilaterally, there is also neuropathic changes to both lower extremity with decreased sensation. - Labs CBC & Chem 7: 01/30/20 05:18 01/30/20 05:18 Labs: Abnormal Lab Results - Last 24 Hours (Table) 01/30/20 01/30/20 Range/Units 05:18 07:38 RBC 3.67 L (3.80-5.40) m/uL MCV 102.3 H (80.0-100.0) fL MCHC 30.9 L (31.0-37.0) g/dL RDW 15.6 H (11.5-15.5) % Plt Count 123 L (150-450) k/uL Lymphocytes # 0.6 L (1.0-4.8) k/uL POC Glucose (mg/dL) 268 H (75-99) mg/dL Microbiology - Last 24 Hours (Table) 01/28/20 22:55 Blood Culture - Preliminary Blood No Growth after 24 hours Assessment and Plan Assessment: Assessment and plan: 1. Acute cellulitis of the left lower extremity that failed outpatient management. Continue Ancef 2 g IV piggyback every 12 hours, continue medical honey, discontinue Silvadene, continue Medihoney and Abner wrap, monitor the patient very closely, follow up the results of the blood cultures and wound culture. 2. End-stage renal disease on hemodialysis Friday. Nephrology consult appreciated Continue Nephrocaps, PhosLo. 3. History of coronary artery disease with prior stenting of the LAD. We will continue the patient on aspirin 81 mg once every day, Plavix 75 mg orally once every day, Lipitor 80 mg once every day. 4. Hyponatremia likely related to hypovolemia post hemodialysis yesterday. Monitor the patient CMP. 5. Anemia of chronic kidney disease. We will check the patient's iron and ferritin level along with total iron-binding capacity. 6. Hypertension. Continue amlodipine2.5 mg daily. 7. Hyperlipidemia. Continue atorvastatin 80 mg at bedtime 8. Gastroesophageal reflux disease and GI prophylaxis. Protonix. 9. Diabetes mellitus type 2, insulin requiring. We will continue Levemir 32 units at bedtime along with the Humalog per sliding scale insulin. 10. Generalized anxiety disorder and recurrent depression. Continue Lexapro 20 mg orally once every day as well as Ativan 1 mg orally twice every day. 11. Hypothyroidism. Continue patient on levothyroxine 175 g orally once every day. 12. History of some symptomatic bradycardia status post permanent pacemaker placement. Stable. 13. DVT prophylaxis. Start the patient on heparin 5000 units subcutaneously every 12 hours. 14. GI prophylaxis. Start the patient on for tonics 40 minute gram orally once every day. 15. Medical debility. Physical therapy evaluation. 16. [employer] worker consultation for discharge planning to [facility].
--- NOTE | 2020-01-30 12:01 | P.PN ---
Subjective Progress Note Date: 01/30/20 Principal diagnosis: This is a 64-year-old female known to cause with ESRD on dialysis Friday. She was admitted because of cellulitis of her left leg. She is known with diabetes coronary artery disease, ischemic cardiomyopathy and bipolar depression Currently she is comfortable no fever chills no nausea vomiting good appetite no diarrhea no abdominal pain Objective - Vital Signs Vital signs: Vital Signs Temp 98.7 F 01/30/20 05:26 Pulse 60 01/30/20 05:26 Resp 16 01/30/20 05:26 BP 134/63 01/30/20 05:26 Pulse Ox 100 01/30/20 05:26 Intake & Output 01/29/20 01/30/20 01/30/20 18:59 06:59 18:59 Intake Total 930 1180 Balance 930 1180 Weight 127.006 kg Intake: IV 30 Invasive Line 1 30 Oral 900 1180 Other: # Voids 0 0 Examination she is awake alert oriented comfortable HEENT exam no JVP neck is supple no facial asymmetry Lungs clear to auscultation good air entry bilaterally Heart sounds are remarkable for a grade 2 systolic ejection murmur that she has been chronically aware of Extreme exam reveals redness and cellulitis left molina and may be mildly so on the right as well There is minimal to mild edema Neurologically awake alert oriented but profoundly weak - Labs CBC & Chem 7: 01/30/20 05:18 01/30/20 05:18 Labs: Abnormal Lab Results - Last 24 Hours (Table) 01/30/20 01/30/20 01/30/20 Range/Units 05:18 05:18 07:38 RBC 3.67 L (3.80-5.40) m/uL MCV 102.3 H (80.0-100.0) fL MCHC 30.9 L (31.0-37.0) g/dL RDW 15.6 H (11.5-15.5) % Plt Count 123 L (150-450) k/uL Lymphocytes # 0.6 L (1.0-4.8) k/uL Sodium 133 L (135-145) mmol/L Chloride 95 L (96-109) mmol/L Anion Gap 13.10 H (4.00-12.00) mmol/L BUN 28.0 H (9.0-27.0) mg/dL Creatinine 5.1 H (0.6-1.5) mg/dL Est GFR (CKD-EPI)AfAm 9.6 L (60.0-200.0) Est GFR (CKD-EPI)NonAf 8.2 L (60.0-200.0) BUN/Creatinine Ratio 5.49 L (12.00-20.00) Ratio Glucose 342 H (70-110) mg/dL POC Glucose (mg/dL) 268 H (75-99) mg/dL Albumin 3.60 L (3.80-4.90) g/dL Albumin/Globulin Ratio 1.38 L (1.60-3.17) g/dL Microbiology - Last 24 Hours (Table) 01/28/20 22:55 Blood Culture - Preliminary Blood No Growth after 24 hours Assessment and Plan Assessment: Impression 1. ESRD on dialysis Friday 2. Admitted with cellulitis left leg. 3. History of ASHD, cardiac catheterization, ischemic cardiomyopathy, 4. history of diabetes 5. History of bipolar depression. 6. Anemia hemoglobin 11.2 > 11.6 about target Recommendations 1. Will maintain her dialysis schedule, next dialysis will be tomorrow 2. continue antibiotics
[2020-01-30 12:08] LABS: Glucose,Whole Blood 186 mg/dL (75-99)
[2020-01-30] MEDS: HYDROcodone/APAP 10-325MG 1 EACH TAB PO PRN (12:17)
[2020-01-30 16:38] LABS: Glucose,Whole Blood 191 mg/dL (75-99)
[2020-01-30 20:25] LABS: Glucose,Whole Blood 208 mg/dL (75-99)
[2020-01-30] MEDS: ATORVASTATIN 80 MG TAB PO SCH (21:43)
[2020-01-30] MEDS: INSULIN DETEMIR (LEVEMIR) 100 UNIT/ML SYR SQ SCH (21:44)
[2020-01-30] MEDS: MELATONIN 5 MG TABLET PO SCH (21:44)
--- NOTE | 2020-01-31 05:12 | PN ---
PROGRESS NOTE DATE OF SERVICE: 01/30/2020 REASON FOR FOLLOWUP: Left lower extremity venous stasis ulcer and cellulitis. INTERVAL HISTORY: The patient is currently afebrile. The patient is feeling better. Breathing comfortably. Patient denies having any chest pain. No shortness of breath or cough. No abdominal pain. Denies any worsening pain to the left leg. PHYSICAL EXAMINATION: Her blood pressure is 149/84 with a pulse of 58, temperature 98.2. She is 98% on room air. General description is an elderly female lying in bed in no distress. RESPIRATORY SYSTEM: Unlabored breathing, clear to auscultation anteriorly. HEART: S1, S2. Regular rate and rhythm. ABDOMEN: Soft, no tenderness. Left leg swelling and redness slightly decreased. LABS: Hemoglobin 11.6, white count 5.1. Creatinine is up to 5.1. Blood culture negative. DIAGNOSTIC IMPRESSION AND PLAN: Patient with left lower extremity wound with secondary cellulitis from ruptured blister. Patient at this time clinical responded to cefazolin, to continue. Local wound care with Medihoney and Abner wrap. Continue with supportive care. MMODL / IJN: [id number] /
[2020-01-31 05:42] LABS: Anisocytosis Slight; Basophils % (A) 1 %; Eosinophils # (A) 0.2 k/uL (0-0.7); Eosinophils % (A) 5 %; HCT 36.6 % (34.0-46.0); HGB 11.2 gm/dL (11.4-16.0); Hypochromasia Moderate; Lymphocytes # (A) 0.7 k/uL (1.0-4.8); Lymphocytes % (A) 16 %; MCH 30.8 pg (25.0-35.0); MCHC 30.7 g/dL (31.0-37.0); MCV 100.4 fL (80.0-100.0); Macrocytosis Slight; Mean Platelet Volume 8.9; Monocytes # (A) 0.3 k/uL (0-1.0); Monocytes % (A) 6 %; Neutrophils # (A) 3.2 k/uL (1.3-7.7); Neutrophils % (A) 70 %; Platelet Count 140 k/uL (150-450); RBC 3.64 m/uL (3.80-5.40); RDW 16.1 % (11.5-15.5); WBC 4.7 k/uL (3.8-10.6)
[2020-01-31] MEDS: LEVOTHYROXINE 100 MCG TAB PO SCH (06:02)
[2020-01-31] MEDS: LEVOTHYROXINE 75 MCG TAB PO SCH (06:02)
[2020-01-31 07:18] LABS: Glucose,Whole Blood 61 mg/dL (75-99)
[2020-01-31 07:42] LABS: Glucose,Whole Blood 69 mg/dL (75-99)
[2020-01-31 08:00] LABS: Glucose,Whole Blood 70 mg/dL (75-99)
[2020-01-31] MEDS: CALCIUM ACETATE 667 MG TAB PO SCH ×3 (08:16→18:03)
[2020-01-31] MEDS: ASPIRIN 81 MG PO SCH (08:17)
[2020-01-31] MEDS: ESCITALOPRAM 20 MG TAB PO SCH (08:17)
[2020-01-31] MEDS: PANTOPRAZOLE 40 MG TABLET PO SCH (08:17)
[2020-01-31] MEDS: DOCUSATE 100 MG CAP PO SCH ×2 (08:17→21:46)
[2020-01-31] MEDS: FUROSEMIDE 80 MG TAB PO SCH (08:18)
[2020-01-31] MEDS: amLODIPine 2.5 MG TAB PO SCH (08:18)
[2020-01-31] MEDS: CLOPIDOGREL 75 MG TAB PO SCH (08:18)
[2020-01-31] MEDS: LORazepam 1 MG TAB PO SCH ×2 (08:18→21:46)
[2020-01-31] MEDS: HEPARIN SODIUM,PORCINE 5,000 UNIT/ML 1 ML VIAL SQ SCH ×2 (08:20→21:46)
[2020-01-31] MEDS: HYDROcodone/APAP 10-325MG 1 EACH TAB PO PRN (08:25)
[2020-01-31] MEDS: INSULIN ASPART (NovoLOG) 100 UNIT/ML VIAL SQ SCH ×4 (08:59→21:46)
[2020-01-31 09:31] LABS: African American GFR (CKD) 7.3 (60.0-200.0); Albumin 3.5 g/dL (3.80-4.90); Albumin/Globulin Ratio 1.4 (1.60-3.17); Anion Gap 11.5 mmol/L (4.00-12.00); BUN/Creat Ratio 5.16 Ratio (12.00-20.00); Calcium 10.2 mg/dL (8.7-10.3); Carbon Dioxide 27.5 mmol/L (21.6-31.8); Globulin 2.5 g/dL (1.6-3.3); Non-African American GFR(CKD) 6.3 (60.0-200.0); Potassium 4.2 mmol/L (3.5-5.5); Total Bilirubin 0.5 mg/dL (0.3-1.2)
[2020-01-31 11:16] LABS: Glucose,Whole Blood 94 mg/dL (75-99)
--- NOTE | 2020-01-31 11:39 | P.PN ---
Subjective Patient is seen in follow-up for end-stage renal disease. She is maintained on hemodialysis on Friday schedule. Oral intake good. No vomiting or diarrhea. Oral intake is good. No vomiting or diarrhea. Being treated for left lower extremity cellulitis. Vital signs are stable. General: The patient appeared well nourished and normally developed. HEENT: Head exam is unremarkable. Neck is without jugular venous distension. LUNGS: Breath sounds decreased. HEART: Rate and Rhythm are regular. ABDOMEN: Soft, nontender. EXTREMITITES: 1+ edema. Left lower extremity wrapped. Chronic skin changes noted. Objective - Vital Signs Vital signs: Vital Signs Temp 98.3 F 01/31/20 05:00 Pulse 61 01/31/20 08:00 Resp 16 01/31/20 08:00 BP 143/80 01/31/20 05:00 Pulse Ox 96 01/31/20 05:00 Intake & Output 01/30/20 01/31/20 01/31/20 18:59 06:59 18:59 Intake Total 1250 1180 Balance 1250 1180 Intake: Intake, IV Titration 100 Amount ceFAZolin 2 gm In Sodium 100 Chloride 0.9% 50 ml @ 100 mls/hr IVPB Q12HR CYNTHIA Rx #:[id number] Oral 1150 1180 Other: # Voids 0 - Labs CBC & Chem 7: 01/31/20 05:14 01/31/20 05:14 Labs: Abnormal Lab Results - Last 24 Hours (Table) 01/30/20 01/30/20 01/30/20 Range/Units 12:05 16:36 20:23 RBC (3.80-5.40) m/uL Hgb (11.4-16.0) gm/dL MCV (80.0-100.0) fL MCHC (31.0-37.0) g/dL RDW (11.5-15.5) % Plt Count (150-450) k/uL Lymphocytes # (1.0-4.8) k/uL BUN (9.0-27.0) mg/dL Creatinine (0.6-1.5) mg/dL Est GFR (CKD-EPI)AfAm (60.0-200.0) Est GFR (CKD-EPI)NonAf (60.0-200.0) BUN/Creatinine Ratio (12.00-20.00) Ratio POC Glucose (mg/dL) 186 H 191 H 208 H (75-99) mg/dL Total Protein (6.2-8.2) g/dL Albumin (3.80-4.90) g/dL Albumin/Globulin Ratio (1.60-3.17) g/dL 01/31/20 01/31/20 01/31/20 Range/Units 05:14 05:14 07:17 RBC 3.64 L (3.80-5.40) m/uL Hgb 11.2 L (11.4-16.0) gm/dL MCV 100.4 H (80.0-100.0) fL MCHC 30.7 L (31.0-37.0) g/dL RDW 16.1 H (11.5-15.5) % Plt Count 140 L (150-450) k/uL Lymphocytes # 0.7 L (1.0-4.8) k/uL BUN 33.0 H (9.0-27.0) mg/dL Creatinine 6.4 H (0.6-1.5) mg/dL Est GFR (CKD-EPI)AfAm 7.3 L (60.0-200.0) Est GFR (CKD-EPI)NonAf 6.3 L (60.0-200.0) BUN/Creatinine Ratio 5.16 L (12.00-20.00) Ratio POC Glucose (mg/dL) 61 L (75-99) mg/dL Total Protein 6.0 L (6.2-8.2) g/dL Albumin 3.50 L (3.80-4.90) g/dL Albumin/Globulin Ratio 1.40 L (1.60-3.17) g/dL 01/31/20 01/31/20 Range/Units 07:41 07:59 RBC (3.80-5.40) m/uL Hgb (11.4-16.0) gm/dL MCV (80.0-100.0) fL MCHC (31.0-37.0) g/dL RDW (11.5-15.5) % Plt Count (150-450) k/uL Lymphocytes # (1.0-4.8) k/uL BUN (9.0-27.0) mg/dL Creatinine (0.6-1.5) mg/dL Est GFR (CKD-EPI)AfAm (60.0-200.0) Est GFR (CKD-EPI)NonAf (60.0-200.0) BUN/Creatinine Ratio (12.00-20.00) Ratio POC Glucose (mg/dL) 69 L 70 L (75-99) mg/dL Total Protein (6.2-8.2) g/dL Albumin (3.80-4.90) g/dL Albumin/Globulin Ratio (1.60-3.17) g/dL Microbiology - Last 24 Hours (Table) 01/28/20 22:55 Blood Culture - Preliminary Blood No Growth after 48 hours Assessment and Plan Plan: Assessment: 1. End-stage renal disease maintained on hemodialysis on Friday schedule. 2. Left lower extremity cellulitis maintained on antibiotics. 3. Hypertension with chronic kidney disease. Stable. 4. Chronic kidney disease mineral bone disease maintained on PhosLo. 5. Diabetes mellitus. Plan: Hemodialysis today. Check labs in the morning. If calcium level not trending down, will use alternative binder.
--- NOTE | 2020-01-31 14:51 | P.PN ---
Subjective Progress Note Date: 01/31/20 This is a 64-year-old obese female patient of JAE Cordova, Mayank with multiple medical problem was known to have end-stage kidney disease on hemodialysis Friday, coronary artery disease and prior coronary artery stenting, diabetes type 2 insulin requiring, dyslipidemia, history of permanent pacemaker. Patient is a long-term resident at [facility]. I went to see the patient yesterday because of increased weeping in both lower extremities for the past 2 weeks and after adjusting her Lasix to 80 mg orally once every day instead of 20 mg orally once every day, patient developed to have of blisters to the left lower extremity and this blister became denuded and started to have significant erythema and pain around the area patient appeared to be in acute cellulitis with significant change from the last time she was seen she was urged to go to the emergency department at [facility] for evaluation and possibly IV antibiotic use, because she is immune compromised due to her underlying chronic medical conditions, patient was seen in the ER and she was admitted to the hospital for acute cellulitis of the left lower extremity, infectious disease consultation will be obtained from . 01/29: Patient is sitting up in bed in no apparent distress she appears to be fatigued and tired, she denies any chest pain or shortness breath at this time, she has no abdominal pain, she has had no diarrhea no fever or chills at this point, she was seen yesterday by infectious disease, she was switched to Ancef 2 g IV piggyback every 12 hours, and she was started on Medihoney for the left blister and wrapped every day, she will have hemodialysis tomorrow morning. 01/30: Patient is seen today sitting up in a chair with her legs elevated. Her appetite is improving and she is consuming more oral intake. She denies having any diarrhea. She is scheduled for hemodialysis later today. She did have a low blood sugar in the 30s this morning but did not take a nighttime snack. We will decrease her long acting insulin to 30 units and patient is encouraged to take at bedtime snack. Regarding the ulcer to the left lower pretibial area, there is less erythema surrounding it. Local wound care is not on any with Silvadene and the surrounding areas. Pulse is diminished to the left foot which has been chronic. We'll culture to be obtained. She is followed by Dr. Wilkinson and continued on IV. Patient has been afebrile, heart rate 60, blood pressure 152/78, pulse ox 97 % on room air. White count is normal 4.7, hemoglobin 11.2. Objective - Vital Signs Vital signs: Vital Signs Temp 98.3 F 01/31/20 05:00 Pulse 61 01/31/20 05:00 Resp 16 01/31/20 05:00 BP 143/80 01/31/20 05:00 Pulse Ox 96 01/31/20 05:00 Intake & Output 01/30/20 01/30/20 01/31/20 06:59 18:59 06:59 Intake Total 1180 1250 1180 Balance 1180 1250 1180 Intake: Intake, IV Titration 100 Amount ceFAZolin 2 gm In Sodium 100 Chloride 0.9% 50 ml @ 100 mls/hr IVPB Q12HR [facility] Rx #:[id number] Oral 1180 1150 1180 Other: # Voids 0 - Exam Review of Systems Constitutional: Reports anorexia, Reports chronic pain, Reports fatigue, Reports malaise, Reports weakness, Reports weight loss Eyes: denies blurred vision, denies bulging eye, denies decreased vision Ears, nose, mouth and throat: Denies dysphagia, Denies neck lump, Denies sore throat Cardiovascular: Reports decreased exercise tolerance, Reports dyspnea on exertion, Reports leg edema, Reports shortness of breath, Denies chest pain, Denies rapid heart beat, Denies syncope Respiratory: Denies congestion, Denies cough with sputum, Denies home oxygen, Denies sleep apnea, Denies snoring, Denies wheezing Gastrointestinal: Reports loss of appetite, Denies abdominal pain, Denies bloating, Denies BRBPR, Denies excessive gas, Denies heartburn, Denies melena, Denies nausea, Denies vomiting Genitourinary: Denies dysuria, Denies nocturia Menstruation: Reports postmenopausal Musculoskeletal: Reports frequent falls, Reports gait dysfunction, Reports low back pain, Reports morning stiffness Musculoskeletal: bilateral: ankle swelling, absent: ankle pain, ankle stiffness, elbow pain, elbow stiffness, elbow swelling, foot pain, foot stiffness, foot swelling, hand pain, hand stiffness, hand swelling, hip pain, hip stiffness, hip swelling, knee pain, knee stiffness, knee swelling, shoulder pain, shoulder stiffness, shoulder swelling, wrist pain, wrist stiffness, wrist swelling Integumentary: Reports brittle nails, Reports darkening of skin, Reports dryness, Reports wounds (Patient does appear to have a noted the blister with erythema base and significant cellulitis around the area of the left lower extremity) Neurological: Reports gait dysfunction, Reports numbness, Reports weakness Psychiatric: Reports anxiety, Reports depression, Reports sleep disturbances, Denies suicidal ideation Endocrine: Denies fatigue, Denies weight change, reports abnormal blood sugar Physical examination: General: 64-year-old female who is laying down in bed appears to be very weak does not appear to be in acute distress at this point in time. HEENT: Head is atraumatic, normocephalic, pupils were equal round reactive to light and recommendation, extraocular muscle movement were intact, sclera nonicteric, conjunctivae were pale, mucous membranes of the mouth are somewhat dry. Neck: Supple, no JVP, decreased carotid upstroke bilaterally, no lymphadenopathy. Chest: Decreased breath sounds at the bases, few rhonchi, no extremity wheezes, no chest wall tenderness, no intercostal retractions. Heart: First heart sound is depressed, second heart sounds normal, there is systolic ejection murmur 2/6 located in the left sternal border. Abdomen: Soft, nontender, nondistended, positive bowel sounds. Extremities: There is a denuded blister to the left lower extremity with an erythema base and significant cellulitis around that area that is decreased from yesterday involving the lateral part of her left lower extremity, there is neuropathic changes in both lower extremities with hammertoes, dorsalis pedis +1 on the left, +2 on the right. Neurologic examination: Patient is awake alert and oriented 3, cranial nerves III-12 appear grossly intact, muscle power were 4 out of 5 in upper extremities and 3 out of 5 in bilateral lower extremities, deep tendon reflexes were depressed bilaterally, there is also neuropathic changes to both lower extremity with decreased sensation. - Labs CBC & Chem 7: 01/31/20 05:14 01/31/20 05:14 Labs: Abnormal Lab Results - Last 24 Hours (Table) 01/30/20 01/30/20 01/30/20 Range/Units 05:18 07:38 12:05 RBC (3.80-5.40) m/uL Hgb (11.4-16.0) gm/dL MCV (80.0-100.0) fL MCHC (31.0-37.0) g/dL RDW (11.5-15.5) % Plt Count (150-450) k/uL Lymphocytes # (1.0-4.8) k/uL Sodium 133 L (135-145) mmol/L Chloride 95 L (96-109) mmol/L Anion Gap 13.10 H (4.00-12.00) mmol/L BUN 28.0 H (9.0-27.0) mg/dL Creatinine 5.1 H (0.6-1.5) mg/dL Est GFR (CKD-EPI)AfAm 9.6 L (60.0-200.0) Est GFR (CKD-EPI)NonAf 8.2 L (60.0-200.0) BUN/Creatinine Ratio 5.49 L (12.00-20.00) Ratio Glucose 342 H (70-110) mg/dL POC Glucose (mg/dL) 268 H 186 H (75-99) mg/dL Albumin 3.60 L (3.80-4.90) g/dL Albumin/Globulin Ratio 1.38 L (1.60-3.17) g/dL 01/30/20 01/30/20 01/31/20 Range/Units 16:36 20:23 05:14 RBC 3.64 L (3.80-5.40) m/uL Hgb 11.2 L (11.4-16.0) gm/dL MCV 100.4 H (80.0-100.0) fL MCHC 30.7 L (31.0-37.0) g/dL RDW 16.1 H (11.5-15.5) % Plt Count 140 L (150-450) k/uL Lymphocytes # 0.7 L (1.0-4.8) k/uL Sodium (135-145) mmol/L Chloride (96-109) mmol/L Anion Gap (4.00-12.00) mmol/L BUN (9.0-27.0) mg/dL Creatinine (0.6-1.5) mg/dL Est GFR (CKD-EPI)AfAm (60.0-200.0) Est GFR (CKD-EPI)NonAf (60.0-200.0) BUN/Creatinine Ratio (12.00-20.00) Ratio Glucose (70-110) mg/dL POC Glucose (mg/dL) 191 H 208 H (75-99) mg/dL Albumin (3.80-4.90) g/dL Albumin/Globulin Ratio (1.60-3.17) g/dL Microbiology - Last 24 Hours (Table) 01/28/20 22:55 Blood Culture - Preliminary Blood No Growth after 48 hours Assessment and Plan Assessment: Assessment and plan: 1. Acute cellulitis of the left lower extremity that failed outpatient ma nagement. Continue Ancef 2 g IV piggyback every 12 hours, continue medical honey, Silvadene, Abner wrap, monitor the patient very closely, follow up the results of the blood cultures and wound culture. 2. End-stage renal disease on hemodialysis Friday. Nephrology consult appreciated Continue Nephrocaps, PhosLo. Patient is scheduled for dialysis today 3. History of coronary artery disease with prior stenting of the LAD. We will continue the patient on aspirin 81 mg once every day, Plavix 75 mg orally once every day, Lipitor 80 mg once every day. 4. Hyponatremia likely related to hypovolemia post hemodialysis. Monitor the patient CMP. 5. Anemia of chronic kidney disease. We will check the patient's iron and ferritin level along with total iron-binding capacity. 6. Hypertension. Continue amlodipine2.5 mg daily. 7. Hyperlipidemia. Continue atorvastatin 80 mg at bedtime 8. Gastroesophageal reflux disease and GI prophylaxis. Protonix. 9. Diabetes mellitus type 2, insulin requiring, uncontrolled with hypoglycemia. Decrease Levemir to 30 units at bedtime, encourage at bedtime snack and continue with the Humalog per sliding scale insulin. 10. Generalized anxiety disorder and recurrent depression. Continue Lexapro 20 mg orally once every day as well as Ativan 1 mg orally twice every day. 11. Hypothyroidism. Continue patient on levothyroxine 175 g orally once every day. 12. History of some symptomatic bradycardia status post permanent pacemaker placement. Stable. 13. DVT prophylaxis. Start the patient on heparin 5000 units subcutaneously every 12 hours. 14. GI prophylaxis. Start the patient on for tonics 40 minute gram orally once every day. 15. Medical debility. Physical therapy evaluation. 16. group care worker consultation for discharge planning to [facility].
[2020-01-31] MEDS ORDERED: GELATIN SPONGE,ABSORB (LARGE) 1 EACH SPONGE ONE (16:00)
[2020-01-31 17:44] LABS: Glucose,Whole Blood 129 mg/dL (75-99)
[2020-01-31 20:10] LABS: Glucose,Whole Blood 196 mg/dL (75-99)
[2020-01-31] MEDS ORDERED: FOLIC ACID-VIT B COMPLEX-VIT C 1 CAP PO SCH (21:00)
[2020-01-31] MEDS: INSULIN DETEMIR (LEVEMIR) 100 UNIT/ML SYR SQ SCH (21:45)
[2020-01-31] MEDS: ATORVASTATIN 80 MG TAB PO SCH (21:46)
[2020-01-31] MEDS: MELATONIN 5 MG TABLET PO SCH (21:46)
--- NOTE | 2020-01-31 22:41 | PN ---
PROGRESS NOTE DATE OF SERVICE: 01/31/2020 REASON FOR FOLLOWUP: Left lower extremity wound and cellulitis. INTERVAL HISTORY: Patient is currently afebrile. The patient is breathing comfortably. Denies having any chest pain or shortness of breath or cough. No abdominal pain. Overall pain and discomfort to the left leg has improved. PHYSICAL EXAMINATION: Blood pressure 122/63 with a pulse of 68, temperature 97.9. She is 99% on room air. General description: The patient is an elderly female up in the bed in no distress. Respiratory system: Unlabored breathing, clear to auscultation anteriorly. Heart S1, S2. Regular rate and rhythm. Abdomen soft. No tenderness. LABS: No new labs have been obtained today. DIAGNOSTIC IMPRESSION AND PLAN: Patient with left lower extremity wound from ruptured blister with secondary cellulitis. Overall improvement in cellulitis. Continue with cefazolin. Local wound care with dry Aquacel Silver dressing and Abner wrap. Plan of care was discussed with the admitting physician on the floor at the time of evaluation. MMODL / IJN: [id number] /
[2020-02-01] MEDS: LEVOTHYROXINE 100 MCG TAB PO SCH (05:53)
[2020-02-01] MEDS: LEVOTHYROXINE 75 MCG TAB PO SCH (05:53)
[2020-02-01] MEDS: HYDROcodone/APAP 10-325MG 1 EACH TAB PO PRN (05:56)
[2020-02-01 07:04] LABS: Glucose,Whole Blood 147 mg/dL (75-99)
[2020-02-01] MEDS: CALCIUM ACETATE 667 MG TAB PO SCH ×3 (08:21→17:45)
[2020-02-01] MEDS: amLODIPine 2.5 MG TAB PO SCH (08:22)
[2020-02-01] MEDS: PANTOPRAZOLE 40 MG TABLET PO SCH (08:22)
[2020-02-01] MEDS: ASPIRIN 81 MG PO SCH (08:22)
[2020-02-01] MEDS: LORazepam 1 MG TAB PO SCH ×2 (08:22→20:44)
[2020-02-01] MEDS: DOCUSATE 100 MG CAP PO SCH ×2 (08:23→20:44)
[2020-02-01] MEDS: ESCITALOPRAM 20 MG TAB PO SCH (08:23)
[2020-02-01] MEDS: CLOPIDOGREL 75 MG TAB PO SCH (08:23)
[2020-02-01] MEDS: FUROSEMIDE 80 MG TAB PO SCH (08:23)
[2020-02-01] MEDS: FOLIC ACID-VIT B COMPLEX-VIT C 1 CAP PO SCH (08:24)
[2020-02-01] MEDS: HEPARIN SODIUM,PORCINE 5,000 UNIT/ML 1 ML VIAL SQ SCH ×2 (08:25→20:45)
[2020-02-01] MEDS: INSULIN ASPART (NovoLOG) 100 UNIT/ML VIAL SQ SCH ×4 (08:26→20:45)
[2020-02-01 10:02] LABS: ALT <8 U/L (8-44); AST 21 U/L (13-35); African American GFR (CKD) 8.5 (60.0-200.0); Albumin/Globulin Ratio 1.37 (1.60-3.17); Alkaline Phosphatase 101 U/L (41-126); BUN/Creat Ratio 4.82 Ratio (12.00-20.00); Calcium 9.8 mg/dL (8.7-10.3); Carbon Dioxide 27.2 mmol/L (21.6-31.8); Chloride 95 mmol/L (96-109); Globulin 2.7 g/dL (1.6-3.3); Glucose 150 mg/dL (70-110); Non-African American GFR(CKD) 7.4 (60.0-200.0); Phosphorus 3.1 mg/dL (2.4-5.1); Potassium 4.7 mmol/L (3.5-5.5); Sodium 133 mmol/L (135-145); Total Bilirubin 0.5 mg/dL (0.3-1.2); Total Protein 6.4 g/dL (6.2-8.2)
[2020-02-01 11:21] LABS: Glucose,Whole Blood 148 mg/dL (75-99)
--- NOTE | 2020-02-01 12:54 | P.PN ---
Subjective Patient is seen in follow-up for end-stage renal disease. She is maintained on hemodialysis on Friday schedule. Oral intake good. No vomiting or diarrhea. Being treated for left lower extremity cellulitis. Hemodynamically stable. No active complaints. No changes overnight. Vital signs are stable. General: The patient appeared well nourished and normally developed. HEENT: Head exam is unremarkable. Neck is without jugular venous distension. LUNGS: Breath sounds decreased. HEART: Rate and Rhythm are regular. ABDOMEN: Soft, nontender. EXTREMITITES: 1+ edema. Left lower extremity wrapped. Chronic skin changes noted. Objective - Vital Signs Vital signs: Vital Signs Temp 98.0 F 02/01/20 12:20 Pulse 60 02/01/20 12:20 Resp 15 02/01/20 12:20 BP 131/49 02/01/20 12:20 Pulse Ox 98 02/01/20 12:20 Intake & Output 01/31/20 02/01/20 02/01/20 18:59 06:59 18:59 Intake Total 1550 Output Total 0 3000 Balance 0 1550 -3000 Intake: IV 80 ns@10 80 Intake, IV Titration 50 Amount ceFAZolin 2 gm In Sodium 50 Chloride 0.9% 50 ml @ 100 mls/hr IVPB Q12HR [facility] Rx #:[id number] Oral 1420 Output: Urine 0 Hemodialysis 3000 - Labs CBC & Chem 7: 01/31/20 05:14 02/01/20 06:57 Labs: Abnormal Lab Results - Last 24 Hours (Table) 01/31/20 01/31/20 02/01/20 Range/Units 17:42 20:09 06:57 Sodium 133 L (135-145) mmol/L Chloride 95 L (96-109) mmol/L Creatinine 5.6 H (0.6-1.5) mg/dL Est GFR (CKD-EPI)AfAm 8.5 L (60.0-200.0) Est GFR (CKD-EPI)NonAf 7.4 L (60.0-200.0) BUN/Creatinine Ratio 4.82 L (12.00-20.00) Ratio Glucose 150 H (70-110) mg/dL POC Glucose (mg/dL) 129 H 196 H (75-99) mg/dL ALT <8 L (8-44) U/L Albumin 3.70 L (3.80-4.90) g/dL Albumin/Globulin Ratio 1.37 L (1.60-3.17) g/dL 02/01/20 02/01/20 Range/Units 07:03 11:20 Sodium (135-145) mmol/L Chloride (96-109) mmol/L Creatinine (0.6-1.5) mg/dL Est GFR (CKD-EPI)AfAm (60.0-200.0) Est GFR (CKD-EPI)NonAf (60.0-200.0) BUN/Creatinine Ratio (12.00-20.00) Ratio Glucose (70-110) mg/dL POC Glucose (mg/dL) 147 H 148 H (75-99) mg/dL ALT (8-44) U/L Albumin (3.80-4.90) g/dL Albumin/Globulin Ratio (1.60-3.17) g/dL Microbiology - Last 24 Hours (Table) 01/31/20 13:20 Gram Stain - Preliminary Leg - Left Wound Culture - Preliminary 01/28/20 22:55 Blood Culture - Preliminary Blood No Growth after 72 hours 01/31/20 13:20 Anaerobic Culture - Preliminary Leg - Left Assessment and Plan Plan: Assessment: 1. End-stage renal disease maintained on hemodialysis on Friday schedule. 2. Left lower extremity cellulitis maintained on antibiotics. 3. Hypertension with chronic kidney disease. Stable. 4. Chronic kidney disease mineral bone disease maintained on PhosLo. 5. Diabetes mellitus. Plan: Hemodialysis tomorrow.
--- NOTE | 2020-02-01 14:02 | P.PN ---
Subjective Progress Note Date: 02/01/20 This is a 64-year-old obese female patient of JAE Cordova, Mayank with multiple medical problem was known to have end-stage kidney disease on hemodialysis Friday, coronary artery disease and prior coronary artery stenting, diabetes type 2 insulin requiring, dyslipidemia, history of permanent pacemaker. Patient is a long-term resident at [facility]. I went to see the patient yesterday because of increased weeping in both lower extremities for the past 2 weeks and after adjusting her Lasix to 80 mg orally once every day instead of 20 mg orally once every day, patient developed to have of blisters to the left lower extremity and this blister became denuded and started to have significant erythema and pain around the area patient appeared to be in acute cellulitis with significant change from the last time she was seen she was urged to go to the emergency department at [facility] for evaluation and possibly IV antibiotic use, because she is immune compromised due to her underlying chronic medical conditions, patient was seen in the ER and she was admitted to the hospital for acute cellulitis of the left lower extremity, infectious disease consultation will be obtained from . 01/29: Patient is sitting up in bed in no apparent distress she appears to be fatigued and tired, she denies any chest pain or shortness breath at this time, she has no abdominal pain, she has had no diarrhea no fever or chills at this point, she was seen yesterday by infectious disease, she was switched to Ancef 2 g IV piggyback every 12 hours, and she was started on Medihoney for the left blister and wrapped every day, she will have hemodialysis tomorrow morning. 01/30: Patient is seen today sitting up in a chair with her legs elevated. Her appetite is improving and she is consuming more oral intake. She denies having any diarrhea. She is scheduled for hemodialysis later today. She did have a low blood sugar in the 30s this morning but did not take a nighttime snack. We will decrease her long acting insulin to 30 units and patient is encouraged to take at bedtime snack. Regarding the ulcer to the left lower pretibial area, there is less erythema surrounding it. Local wound care is not on any with Silvadene and the surrounding areas. Pulse is diminished to the left foot which has been chronic. We'll culture to be obtained. She is followed by Dr. Wilkinson and continued on IV. Patient has been afebrile, heart rate 60, blood pressure 152/78, pulse ox 97 % on room air. White count is normal 4.7, hemoglobin 11.2. 01/31: Patient continues to improve slowly. She is tolerating oral diet with known nausea, vomiting or diarrhea. She is continued on Kefzol for left lower extremity cellulitis and ulcer with local wound care with arcelia. She is scheduled for hemodialysis tomorrow followed closely by nephrology.. No complaints of shortness of breath, cough. Repeat blood work reveals sodium 133, potassium 4.7, chloride 95, CO2 27.2, BUN 27 creatinine 5.6. Blood sugars are running between 147 and 196. Liver function tests are normal. Wound culture is in progress and blood culture is no growth at 72 hours. Discharge plan is return to [facility] on the [facility] most likely tomorrow. Objective - Vital Signs Vital signs: Vital Signs Temp 97.9 F 01/31/20 21:00 Pulse 60 01/31/20 21:00 Resp 16 01/31/20 21:00 BP 122/63 01/31/20 21:00 Pulse Ox 99 01/31/20 21:00 Intake & Output 01/31/20 01/31/20 02/01/20 06:59 18:59 06:59 Intake Total 1180 880 Output Total 0 Balance 1180 0 880 Intake: Intake, IV Titration 50 Amount ceFAZolin 2 gm In Sodium 50 Chloride 0.9% 50 ml @ 100 mls/hr IVPB Q12HR [facility] Rx #:[id number] Oral 1180 830 Output: Urine 0 - Exam Review of Systems Constitutional: Reports anorexia, Reports chronic pain, Reports fatigue, Reports malaise, Reports weakness, Reports weight loss Eyes: denies blurred vision, denies bulging eye, denies decreased vision Ears, nose, mouth and throat: Denies dysphagia, Denies neck lump, Denies sore throat Cardiovascular: Reports decreased exercise tolerance, Reports dyspnea on exertion, Reports leg edema, Reports shortness of breath, Denies chest pain, Denies rapid heart beat, Denies syncope Respiratory: Denies congestion, Denies cough with sputum, Denies home oxygen, Denies sleep apnea, Denies snoring, Denies wheezing Gastrointestinal: Reports loss of appetite, Denies abdominal pain, Denies bloating, Denies BRBPR, Denies excessive gas, Denies heartburn, Denies melena, Denies nausea, Denies vomiting Genitourinary: Denies dysuria, Denies nocturia Menstruation: Reports postmenopausal Musculoskeletal: Reports frequent falls, Reports gait dysfunction, Reports low back pain, Reports morning stiffness Musculoskeletal: bilateral: ankle swelling, absent: ankle pain, ankle stiffness, elbow pain, elbow stiffness, elbow swelling, foot pain, foot stiffness, foot swelling, hand pain, hand stiffness, hand swelling, hip pain, hip stiffness, hip swelling, knee pain, knee stiffness, knee swelling, shoulder pain, shoulder stiffness, shoulder swelling, wrist pain, wrist stiffness, wrist swelling Integumentary: Reports brittle nails, Reports darkening of skin, Reports dryness, Reports wounds (Patient does appear to have a noted the blister with erythema base and significant cellulitis around the area of the left lower extremity) Neurological: Reports gait dysfunction, Reports numbness, Reports weakness Psychiatric: Reports anxiety, Reports depression, Reports sleep disturbances, Denies suicidal ideation Endocrine: Denies fatigue, Denies weight change, reports abnormal blood sugar Physical examination: General: 64-year-old female who is laying down in bed appears to be very weak does not appear to be in acute distress at this point in time. HEENT: Head is atraumatic, normocephalic, pupils were equal round reactive to light and recommendation, extraocular muscle movement were intact, sclera nonicteric, conjunctivae were pale, mucous membranes of the mouth are somewhat dry. Neck: Supple, no JVP, decreased carotid upstroke bilaterally, no lymphadenopathy. Chest: Decreased breath sounds at the bases, few rhonchi, no extremity wheezes, no chest wall tenderness, no intercostal retractions. Heart: First heart sound is depressed, second heart sounds normal, there is systolic ejection murmur 2/6 located in the left sternal border. Abdomen: Soft, nontender, nondistended, positive bowel sounds. Extremities: There is a denuded blister to the left lower extremity with an erythema base and significant cellulitis around that area that is decreased from yesterday involving the lateral part of her left lower extremity, there is neuropathic changes in both lower extremities with hammertoes, dorsalis pedis +1 on the left, +2 on the right. Neurologic examination: Patient is awake alert and oriented 3, cranial nerves III-12 appear grossly intact, muscle power were 4 out of 5 in upper extremities and 3 out of 5 in bilateral lower extremities, deep tendon reflexes were depressed bilaterally, there is also neuropathic changes to both lower extremity with decreased sensation. - Labs CBC & Chem 7: 01/31/20 05:14 02/01/20 06:57 Labs: Abnormal Lab Results - Last 24 Hours (Table) 01/31/20 01/31/20 01/31/20 Range/Units 05:14 05:14 07:17 RBC 3.64 L (3.80-5.40) m/uL Hgb 11.2 L (11.4-16.0) gm/dL MCV 100.4 H (80.0-100.0) fL MCHC 30.7 L (31.0-37.0) g/dL RDW 16.1 H (11.5-15.5) % Plt Count 140 L (150-450) k/uL Lymphocytes # 0.7 L (1.0-4.8) k/uL BUN 33.0 H (9.0-27.0) mg/dL Creatinine 6.4 H (0.6-1.5) mg/dL Est GFR (CKD-EPI)AfAm 7.3 L (60.0-200.0) Est GFR (CKD-EPI)NonAf 6.3 L (60.0-200.0) BUN/Creatinine Ratio 5.16 L (12.00-20.00) Ratio POC Glucose (mg/dL) 61 L (75-99) mg/dL Total Protein 6.0 L (6.2-8.2) g/dL Albumin 3.50 L (3.80-4.90) g/dL Albumin/Globulin Ratio 1.40 L (1.60-3.17) g/dL 01/31/20 01/31/20 01/31/20 Range/Units 07:41 07:59 17:42 RBC (3.80-5.40) m/uL Hgb (11.4-16.0) gm/dL MCV (80.0-100.0) fL MCHC (31.0-37.0) g/dL RDW (11.5-15.5) % Plt Count (150-450) k/uL Lymphocytes # (1.0-4.8) k/uL BUN (9.0-27.0) mg/dL Creatinine (0.6-1.5) mg/dL Est GFR (CKD-EPI)AfAm (60.0-200.0) Est GFR (CKD-EPI)NonAf (60.0-200.0) BUN/Creatinine Ratio (12.00-20.00) Ratio POC Glucose (mg/dL) 69 L 70 L 129 H (75-99) mg/dL Total Protein (6.2-8.2) g/dL Albumin (3.80-4.90) g/dL Albumin/Globulin Ratio (1.60-3.17) g/dL 01/31/20 Range/Units 20:09 RBC (3.80-5.40) m/uL Hgb (11.4-16.0) gm/dL MCV (80.0-100.0) fL MCHC (31.0-37.0) g/dL RDW (11.5-15.5) % Plt Count (150-450) k/uL Lymphocytes # (1.0-4.8) k/uL BUN (9.0-27.0) mg/dL Creatinine (0.6-1.5) mg/dL Est GFR (CKD-EPI)AfAm (60.0-200.0) Est GFR (CKD-EPI)NonAf (60.0-200.0) BUN/Creatinine Ratio (12.00-20.00) Ratio POC Glucose (mg/dL) 196 H (75-99) mg/dL Total Protein (6.2-8.2) g/dL Albumin (3.80-4.90) g/dL Albumin/Globulin Ratio (1.60-3.17) g/dL Microbiology - Last 24 Hours (Table) 01/28/20 22:55 Blood Culture - Preliminary Blood No Growth after 72 hours 01/31/20 13:20 Gram Stain - Preliminary Leg - Left Wound Culture - Preliminary 01/31/20 13:20 Anaerobic Culture - Preliminary Leg - Left Assessment and Plan Assessment: Assessment and plan: 1. Acute cellulitis of the left lower extremity that failed outpatient management. Continue Ancef 2 g IV piggyback every 12 hours, continue medical honey, Silvadene, Abner wrap, monitor the patient very closely, follow up the results of the blood cultures and wound culture. 2. End-stage renal disease on hemodialysis Friday. Nephrology consult appreciated Continue Amandeep Mendez. Patient is scheduled for dialysis today 3. History of coronary artery disease with prior stenting of the LAD. We will continue the patient on aspirin 81 mg once every day, Plavix 75 mg orally once every day, Lipitor 80 mg once every day. 4. Hyponatremia likely related to hypovolemia post hemodialysis. Monitor the patient CMP. 5. Anemia of chronic kidney disease. We will check the patient's iron and ferritin level along with total iron-binding capacity. 6. Hypertension. Continue amlodipine2.5 mg daily. 7. Hyperlipidemia. Continue atorvastatin 80 mg at bedtime 8. Gastroesophageal reflux disease and GI prophylaxis. Protonix. 9. Diabetes mellitus type 2, insulin requiring, uncontrolled with hypoglycemia. Decrease Levemir to 30 units at bedtime, encourage at bedtime snack and continue with the Humalog per sliding scale insulin. 10. Generalized anxiety disorder and recurrent depression. Continue Lexapro 20 mg orally once every day as well as Ativan 1 mg orally twice every day. 11. Hypothyroidism. Continue patient on levothyroxine 175 g orally once every day. 12. History of some symptomatic bradycardia status post permanent pacemaker placement. Stable. 13. DVT prophylaxis. Start the patient on heparin 5000 units subcutaneously every 12 hours. 14. GI prophylaxis. Start the patient on for tonics 40 minute gram orally once every day. 15. Medical debility. Physical therapy evaluation. 16. 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
[2020-02-01 16:58] LABS: Glucose,Whole Blood 131 mg/dL (75-99)
[2020-02-01 18:59] LABS: Hemoglobin A1C 7.1 % (4.0-6.0)
[2020-02-01] MEDS: ATORVASTATIN 80 MG TAB PO SCH (20:44)
[2020-02-01] MEDS: MELATONIN 5 MG TABLET PO SCH (20:44)
[2020-02-01] MEDS: INSULIN DETEMIR (LEVEMIR) 100 UNIT/ML SYR SQ SCH (20:45)
[2020-02-01 20:49] LABS: Glucose,Whole Blood 139 mg/dL (75-99)
--- NOTE | 2020-02-02 00:39 | PN ---
PROGRESS NOTE DATE OF SERVICE: 02/01/2020 REASON FOR FOLLOWUP: Left lower extremity wound and cellulitis. INTERVAL HISTORY: The patient is currently afebrile. She is breathing comfortably. Denies any chest pain or cough or any worsening pain to the left leg wound. No abdominal pain or diarrhea. PHYSICAL EXAMINATION: Blood pressure 157/68 with a pulse of 63, temperature is 97.4. She is 98% on room air. General description is an elderly female lying in bed in no distress. RESPIRATORY SYSTEM: Unlabored breathing, clear to auscultation anteriorly. HEART: S1, S2. Regular rate and rhythm. ABDOMEN: Soft, no tenderness. Left leg swelling has slightly decreased. DIAGNOSTIC IMPRESSION AND PLAN: Patient with left lower extremity wound with secondary cellulitis. Patient clinically responded to the cefazolin. Finish therapy with oral Keflex, local wound care with dry Aquacel dressing and continue with supportive care. MMODL / IJN: [id number] /
[2020-02-02] MEDS: HYDROcodone/APAP 10-325MG 1 EACH TAB PO PRN (03:27)
[2020-02-02] MEDS: LEVOTHYROXINE 75 MCG TAB PO SCH (05:03)
[2020-02-02] MEDS: LEVOTHYROXINE 100 MCG TAB PO SCH (05:04)
[2020-02-02 07:11] LABS: Glucose,Whole Blood 95 mg/dL (75-99)
[2020-02-02] MEDS: INSULIN ASPART (NovoLOG) 100 UNIT/ML VIAL SQ SCH ×2 (08:13→11:39)
[2020-02-02] MEDS: FOLIC ACID-VIT B COMPLEX-VIT C 1 CAP PO SCH (08:14)
[2020-02-02] MEDS: CALCIUM ACETATE 667 MG TAB PO SCH ×2 (08:14→11:59)
[2020-02-02] MEDS: ASPIRIN 81 MG PO SCH (08:15)
[2020-02-02] MEDS: CLOPIDOGREL 75 MG TAB PO SCH (08:15)
[2020-02-02] MEDS: FUROSEMIDE 80 MG TAB PO SCH (08:15)
[2020-02-02] MEDS: ESCITALOPRAM 20 MG TAB PO SCH (08:15)
[2020-02-02] MEDS: amLODIPine 2.5 MG TAB PO SCH (08:16)
[2020-02-02] MEDS: LORazepam 1 MG TAB PO SCH (08:16)
[2020-02-02] MEDS: DOCUSATE 100 MG CAP PO SCH (08:16)
[2020-02-02] MEDS: PANTOPRAZOLE 40 MG TABLET PO SCH (08:16)
[2020-02-02] MEDS: HEPARIN SODIUM,PORCINE 5,000 UNIT/ML 1 ML VIAL SQ SCH (08:17)
--- NOTE | 2020-02-02 09:32 | P.PN ---
Subjective Patient is seen in follow-up for end-stage renal disease. She is maintained on hemodialysis on Friday schedule. Oral intake good. No vomiting or diarrhea. Being treated for left lower extremity cellulitis. Hemodynamically stable. No active complaints. No changes overnight. Currently having breakfast. Vital signs are stable. General: The patient appeared well nourished and normally developed. HEENT: Head exam is unremarkable. Neck is without jugular venous distension. LUNGS: Breath sounds decreased. HEART: Rate and Rhythm are regular. ABDOMEN: Soft, nontender. EXTREMITITES: 1+ edema. Left lower extremity wrapped. Chronic skin changes noted. Objective - Vital Signs Vital signs: Vital Signs Temp 97.7 F 02/02/20 05:00 Pulse 60 02/02/20 05:00 Resp 18 02/02/20 05:00 BP 135/82 02/02/20 05:00 Pulse Ox 97 02/02/20 05:00 Intake & Output 02/01/20 02/02/20 02/02/20 18:59 06:59 18:59 Intake Total 240 Output Total 3000 Balance -3000 240 Intake: Oral 240 Output: Urine 0 Hemodialysis 3000 Other: Voiding Method Bedside Commode # Voids 0 1 # Bowel Movements 1 - Labs CBC & Chem 7: 01/31/20 05:14 02/01/20 06:57 Labs: Abnormal Lab Results - Last 24 Hours (Table) 02/01/20 02/01/20 02/01/20 Range/Units 06:57 06:57 11: Sodium 133 L (135-145) mmol/L Chloride 95 L (96-109) mmol/L Creatinine 5.6 H (0.6-1.5) mg/dL Est GFR (CKD-EPI)AfAm 8.5 L (60.0-200.0) Est GFR (CKD-EPI)NonAf 7.4 L (60.0-200.0) BUN/Creatinine Ratio 4.82 L (12.00-20.00) Ratio Glucose 150 H (70-110) mg/dL POC Glucose (mg/dL) 148 H (75-99) mg/dL Hemoglobin A1c 7.1 H (4.0-6.0) % ALT <8 L (8-44) U/L Albumin 3.70 L (3.80-4.90) g/dL Albumin/Globulin Ratio 1.37 L (1.60-3.17) g/dL 02/01/20 02/01/20 Range/Units 16:56 20:38 Sodium (135-145) mmol/L Chloride (96-109) mmol/L Creatinine (0.6-1.5) mg/dL Est GFR (CKD-EPI)AfAm (60.0-200.0) Est GFR (CKD-EPI)NonAf (60.0-200.0) BUN/Creatinine Ratio (12.00-20.00) Ratio Glucose (70-110) mg/dL POC Glucose (mg/dL) 131 H 139 H (75-99) mg/dL Hemoglobin A1c (4.0-6.0) % ALT (8-44) U/L Albumin (3.80-4.90) g/dL Albumin/Globulin Ratio (1.60-3.17) g/dL Microbiology - Last 24 Hours (Table) 01/28/20 22:55 Blood Culture - Preliminary Blood No Growth after 96 hours 01/31/20 13:20 Gram Stain - Preliminary Leg - Left Wound Culture - Preliminary Assessment and Plan Plan: Assessment: 1. End-stage renal disease maintained on hemodialysis on Friday schedule. 2. Left lower extremity cellulitis maintained on antibiotics. 3. Hypertension with chronic kidney disease. Stable. 4. Chronic kidney disease mineral bone disease maintained on PhosLo. 5. Diabetes mellitus. Plan: Hemodialysis today.
[2020-02-02 11:31] LABS: Glucose,Whole Blood 120 mg/dL (75-99)
--- NOTE | 2020-02-02 11:34 | P.DS ---
Providers Date of admission: 01/29/20 11:24 Expected date of discharge: 02/02/20 Attending physician: Kimberli Gar Consults: 01/29/20 08:46 Consult Physician Routine Consulting Provider: Cherie Talley Consult Reason/Comments: HD Do you want consulting provider notified?: Yes 01/29/20 08:47 Consult Physician Routine Consulting Provider: Aníbal Wilkinson Consult Reason/Comments: Left lower extremity cellulitis Do you want consulting provider notified?: Yes Primary care physician: Kimberli Gar Hospital Course: This is a 64-year-old obese female patient of Drs. Gar, Mayank Noe with multiple medical problem was known to have end-stage kidney disease on hemodialysis Friday, coronary artery disease and prior coronary artery stenting, diabetes type 2 insulin requiring, dyslipidemia, history of permanent pacemaker. Patient is a long-term resident at [facility]. I went to see the patient yesterday because of increased weeping in both lower extremities for the past 2 weeks and after adjusting her Lasix to 80 mg orally once every day instead of 20 mg orally once every day, patient developed to have of blisters to the left lower extremity and this blister became denuded and started to have significant erythema and pain around the area patient appeared to be in acute cellulitis with significant change from the last time she was seen she was urged to go to the emergency department at [facility] for evaluation and possibly IV antibiotic use, because she is immune compromised due to her underlying chronic medical conditions, patient was seen in the ER and she was admitted to the hospital for acute cellulitis of the left lower extremity, infectious disease consultation will be obtained from . 01/29: Patient is sitting up in bed in no apparent distress she appears to be fatigued and tired, she denies any chest pain or shortness breath at this time, she has no abdominal pain, she has had no diarrhea no fever or chills at this point, she was seen yesterday by infectious disease, she was switched to Ancef 2 g IV piggyback every 12 hours, and she was started on Medihoney for the left blister and wrapped every day, she will have hemodialysis tomorrow morning. 01/30: Patient is seen today sitting up in a chair with her legs elevated. Her appetite is improving and she is consuming more oral intake. She denies having any diarrhea. She is scheduled for hemodialysis later today. She did have a low blood sugar in the 30s this morning but did not take a nighttime snack. We will decrease her long acting insulin to 30 units and patient is encouraged to take at bedtime snack. Regarding the ulcer to the left lower pretibial area, there is less erythema surrounding it. Local wound care is not on any with Alysha vadene and the surrounding areas. Pulse is diminished to the left foot which has been chronic. We'll culture to be obtained. She is followed by Dr. Wilkinson and continued on IV. Patient has been afebrile, heart rate 60, blood pressure 152/78, pulse ox 97 % on room air. White count is normal 4.7, hemoglobin 11.2. 01/31: Patient continues to improve slowly. She is tolerating oral diet with known nausea, vomiting or diarrhea. She is continued on Kefzol for left lower extremity cellulitis and ulcer with local wound care with medihoney. She is scheduled for hemodialysis tomorrow followed closely by nephrology.. No complaints of shortness of breath, cough. Repeat blood work reveals sodium 133, potassium 4.7, chloride 95, CO2 27.2, BUN 27 creatinine 5.6. Blood sugars are running between 147 and 196. Liver function tests are normal. Wound culture is in progress and blood culture is no growth at 72 hours. Discharge plan is return to [facility] on the bliss most likely tomorrow. 02/01: Patient has been afebrile, heart rate 60, blood pressure 135/82, pulse ox 97% on room air. Blood sugars are running between 95 and 139. Wound culture Gram stain reveals many polymorphonuclear leukocytes and no organisms. There is no growth at 24 hours. Blood culture reveals no growth after 96 hours. Patient has been eating well with no nausea vomiting or diarrhea. She is scheduled for hemodialysis today. Dr. Wilkinson is recommended oral Keflex and wound care with dry Aquacel dressing. Patient will be discharged back to [facility] today in stable condition. Discharge diagnoses: 1. Acute cellulitis of the left lower extremity that failed outpatient management. 2. End-stage renal disease on hemodialysis Friday. 3. History of coronary artery disease with prior stenting of the LAD. 4. Hyponatremia likely related to hypovolemia post hemodialysis. 5. Anemia of chronic kidney disease. 6. Hypertension. 7. Hyperlipidemia. 8. Gastroesophageal reflux disease. 9. Diabetes mellitus type 2, insulin requiring, uncontrolled with hypoglycemia. 10. Generalized anxiety disorder and recurrent depression. 11. Hypothyroidism. 12. History of some symptomatic bradycardia status post permanent pacemaker placement. 13. Medical debility. Discharge plan: [facility] under the care of Dr. Gar. Impression and plan of care have been directed as dictated by the signing physician. Emely Contreras nurse practitioner acting as scribe for signing physician. Patient Condition at Discharge: Serious Plan - Discharge Summary Discharge Rx Participant: No New Discharge Prescriptions: New Cephalexin [Keflex] 500 mg PO BID 10 Days #20 cap Continue Atorvastatin [Lipitor] 80 mg PO HS@2100 Calcium Acetate [PhosLo] 2,001 mg PO AC-TID@08,12,17 Acetaminophen Tab [Tylenol] 500 mg PO Q6H PRN PRN Reason: Pain Docusate Sodium [Dok] 100 mg PO BID@0900,2100 Ondansetron [Zofran] 4 mg PO Q6H PRN PRN Reason: Nausea And Vomiting Folic Acid-Vit B Complex-Vit C [Nephrocaps] 1 cap PO MOWEFR@2100 Folic Acid-Vit B Complex-Vit C [Nephrocaps] 1 mg PO SUTUTHSA@0900 Melatonin 10 mg PO HS@2100 Escitalopram [Lexapro] 20 mg PO DAILY@0900 Aspirin EC [Ecotrin Low Dose] 81 mg PO DAILY@0900 Nitroglycerin Sl Tabs [Nitrostat] 0.4 mg SUBLINGUAL Q5M PRN tab PRN Reason: Chest Pain amLODIPine [Norvasc] 2.5 mg PO DAILY@0900 Clopidogrel [Plavix] 75 mg PO DAILY@0900 Calcium Acetate [PhosLo] 667 mg PO TID PRN PRN Reason: SNACKS Levothyroxine Sodium [Synthroid] 175 mcg PO DAILY@0600 Sodium Polystyrene Sulfonate 15 gm PO SUTUTHSA@0900 Artificial Tears-Hypromellose [Artificial Tear Drops] 1 drops RIGHT EYE Q12H PRN PRN Reason: REDDNESS/DRYNESS bisacodyL [Bisacodyl] 10 mg RECTAL DAILY PRN PRN Reason: Constipation Dextrose/Dextrin/Maltose [Insta-Glucose Gel] 1 applic PO DAILY PRN PRN Reason: Hypoglycemia Glucagon Emergency Kit 1 mg IM ONCE PRN PRN Reason: Hypoglycemia guaiFENesin [Mucinex] 600 mg PO Q12H PRN PRN Reason: Congestion Insulin Aspart [NovoLOG] See Protocol SQ ACHS@,, Lidocaine-Prilocaine Cream [Emla Cream 2.5%/2.5%] 1 applic TOPICAL MOWEFR PRN PRN Reason: Pain Loperamide [Imodium] 2 mg PO Q4H PRN PRN Reason: Loose Stool Furosemide [Lasix] 80 mg PO DAILY@09 Insulin Glargine,Hum.rec.anlog [Basaglar Kwikpen U-100] 32 unit SQ HS@2099 LORazepam [Ativan] 1 mg PO BID@899,2099 #6 tab Hydrocodone/Acetaminophen [Pioneer 10-325] 1 tab PO BID PRN #6 tab PRN Reason: pain Discharge Medication List Atorvastatin [Lipitor] 80 mg PO HS@209912/27/16 [History] Calcium Acetate [PhosLo] 2,001 mg PO AC-TID@,09/02/18 [History] Acetaminophen Tab [Tylenol] 500 mg PO Q6H PRN 01/11/19 [History] Docusate Sodium [Dok] 100 mg PO BID@899,209901/11/19 [History] Aspirin EC [Ecotrin Low Dose] 81 mg PO DAILY@89904/02/19 [History] Escitalopram [Lexapro] 20 mg PO DAILY@89904/02/19 [History] Folic Acid-Vit B Complex-Vit C [Nephrocaps] 1 cap PO MOWEFR@209904/02/19 [History] Folic Acid-Vit B Complex-Vit C [Nephrocaps] 1 mg PO SUTUTHSA@89904/02/19 [History] Melatonin 10 mg PO HS@209904/02/19 [History] Ondansetron [Zofran] 4 mg PO Q6H PRN 04/02/19 [History] Nitroglycerin Sl Tabs [Nitrostat] 0.4 mg SUBLINGUAL Q5M PRN tab 04/06/19 [Rx] Clopidogrel [Plavix] 75 mg PO DAILY@89904/09/19 [History] amLODIPine [Norvasc] 2.5 mg PO DAILY@0900 04/09/19 [History] Calcium Acetate [PhosLo] 667 mg PO TID PRN 11/05/19 [History] Levothyroxine Sodium [Synthroid] 175 mcg PO DAILY@0600 11/05/19 [History] Sodium Polystyrene Sulfonate 15 gm PO SUTUTHSA@0900 11/05/19 [History] Artificial Tears-Hypromellose [Artificial Tear Drops] 1 drops RIGHT EYE Q12H PRN 11/23/19 [History] Dextrose/Dextrin/Maltose [Insta-Glucose Gel] 1 applic PO DAILY PRN 11/23/19 [History] Glucagon Emergency Kit 1 mg IM ONCE PRN 11/23/19 [History] Insulin Aspart [NovoLOG] See Protocol SQ ACHS@08,12,17,11/23/19 [History] Lidocaine-Prilocaine Cream [Emla Cream 2.5%/2.5%] 1 applic TOPICAL MOWEFR PRN 11/23/19 [History] Loperamide [Imodium] 2 mg PO Q4H PRN 11/23/19 [History] bisacodyL [Bisacodyl] 10 mg RECTAL DAILY PRN 11/23/19 [History] guaiFENesin [Mucinex] 600 mg PO Q12H PRN 11/23/19 [History] Furosemide [Lasix] 80 mg PO DAILY@0900 01/28/20 [History] Insulin Glargine,Hum.rec.anlog [Basaglar Kwikpen U-100] 32 unit SQ HS@209901/29/20 [History] Cephalexin [Keflex] 500 mg PO BID 10 Days #20 cap 02/02/20 [Rx] Hydrocodone/Acetaminophen [Pioneer 10-325] 1 tab PO BID PRN #6 tab 02/02/20 [Rx] LORazepam [Ativan] 1 mg PO BID@0900,2099 #6 tab 02/02/20 [Rx] Follow up Appointment(s)/Referral(s): Kimberli Gar MD [Primary Care Provider] - 1 Week (At [facility]) Discharge Disposition: TRANSFER TO SNF/[facility]
[2020-02-02 17:03] VITALS: BP 139/66; PULSE 61; RESP 18; TEMP 97.8
--- NOTE | 2020-02-02 22:29 | PN ---
PROGRESS NOTE DATE OF SERVICE: 02/02/2020 REASON FOR FOLLOWUP: Left lower extremity wound and cellulitis. INTERVAL HISTORY: Patient was seen on rounds early this afternoon. The patient has been afebrile. She is breathing comfortably. Overall pain and discomfort to the left leg has improved. No chest pain. No cough. No abdominal pain or diarrhea. PHYSICAL EXAMINATION: Blood pressure 139/66, pulse of 71, temperature 97.8. General description is an elderly female lying in bed in no distress. Respiratory system: Unlabored breathing, clear to auscultation anteriorly. Heart S1, S2. Regular rate and rhythm. Abdomen soft, no tenderness. Left leg swelling and redness has improved. No drainage on the dressing. LABS: Wound culture currently negative. Blood culture negative. DIAGNOSTIC IMPRESSION AND PLAN: Patient with acute left lower extremity cellulitis in this patient who did have overall improvement on cefazolin. Finish therapy with oral Keflex 500 mg twice a day for about a week. Local care with Aquacel silver dressing and close outpatient followup. MMODL / IJN: [id number] /
--- NOTE | 2020-02-06 21:11 | CDI ---
Documentation Clarification Form Date: 02/07/2020 From: Henry Jc Phone: If you have a question about this query, please contact Madeline Saldaña [employer] T[employer] at [phone] between 8am and 5pm. Admit Date: 01/29/2020 Discharge Date: 02/02/2020 Patient Name: Ethel Marrufo Visit Number: [id number] ATTENTION: The Clinical Documentation Specialists (CDI) and [facility] Coding Staff appreciate your assistance in clarifying documentation. Please respond to the clarification below the line at the bottom and electronically sign. The CDI & [facility] Coding staff will review the response and follow-up if needed. Please note: Queries are made part of the Legal Health Record. If you have any questions, please contact the author of this message via ITS. Dear Dr Cong Ag MD., Patient with acute left lower extremity cellulitis, started with swelling, blister formation that subsequent ruptured leaving superficial ulceration secondary cellulitis likely from a gram-positive skin tran. History/Risk Factors: ESRD, Cellulitis,Obesity Patient with left lower extremity wound with secondary cellulitis.Patient clinically responded to the cefazolin. 01/29 Dr. Minh Spangler MD Notes "Left lower extremity venous stasis ulcer and cellulitis". 02/01 Dr. Minh Spangler MD notes "Patient with acute left lower extremity cellulitis in this patient who did have overall improvement on cefazolin" Per DS note "Acute cellulitis of the left lower extremity that failed outpatient management". In your professional opinion, can you please clarify Cellulitis and wound related to? Underlying Type 2 DM Venous stasis ulcer Underlying Type 2DM Non Pressure ulcer Other, please specify Unable to determine ____Underlying Type 2 DM venous stasis ulcer with cellulitis MTDD
== END 2020-02-02 16:48 | DRG 299 ==
LOC: EC 20:51 → 6NMEDSUR 01-29 00:40 → OBSVTOIN 01-29 11:24
PROVIDERS: ADMIT Internal Medicine; ATTEND Internal Medicine
PROC: 5A1D70Z Performance of Urinary Filtration, Intermittent, Less than 6 Hours Per Day (ICD-10-PCS; principal; 2020-01-29)
DX: E11.51 Type 2 diabetes mellitus with diabetic peripheral angiopathy without gangrene (principal); N18.6 End stage renal disease; L97.929 Non-pressure chronic ulcer of unspecified part of left lower leg with unspecified severity; L03.116 Cellulitis of left lower limb; E87.1 Hypo-osmolality and hyponatremia; Z68.42 Body mass index [BMI] 45.0-49.9, adult; F31.30 Bipolar disorder, current episode depressed, mild or moderate severity, unspecified; I12.0 Hypertensive chronic kidney disease with stage 5 chronic kidney disease or end stage renal disease; K21.9 Gastro-esophageal reflux disease without esophagitis; I25.5 Ischemic cardiomyopathy; E03.9 Hypothyroidism, unspecified; D63.1 Anemia in chronic kidney disease; E66.9 Obesity, unspecified; E78.5 Hyperlipidemia, unspecified; E11.22 Type 2 diabetes mellitus with diabetic chronic kidney disease; E86.1 Hypovolemia; E83.89 Other disorders of mineral metabolism; F03.90 Unspecified dementia, unspecified severity, without behavioral disturbance, psychotic disturbance, mood disturbance, and anxiety; F41.1 Generalized anxiety disorder; Z96.41 Presence of insulin pump (external) (internal); R53.81 Other malaise; M19.90 Unspecified osteoarthritis, unspecified site; I25.10 Atherosclerotic heart disease of native coronary artery without angina pectoris; I25.2 Old myocardial infarction; Z79.82 Long term (current) use of aspirin; Z79.890 Hormone replacement therapy; Z79.4 Long term (current) use of insulin; Z79.02 Long term (current) use of antithrombotics/antiplatelets; Z79.899 Other long term (current) drug therapy; Z83.3 Family history of diabetes mellitus; Z82.49 Family history of ischemic heart disease and other diseases of the circulatory system; Z90.710 Acquired absence of both cervix and uterus; Z86.73 Personal history of transient ischemic attack (TIA), and cerebral infarction without residual deficits; Z95.5 Presence of coronary angioplasty implant and graft; Z98.84 Bariatric surgery status; Z99.2 Dependence on renal dialysis; Z95.0 Presence of cardiac pacemaker; Z91.041 Radiographic dye allergy status; Z88.0 Allergy status to penicillin; Z88.8 Allergy status to other drugs, medicaments and biological substances; Z91.09 Other allergy status, other than to drugs and biological substances; Z86.14 Personal history of Methicillin resistant Staphylococcus aureus infection; Z90.49 Acquired absence of other specified parts of digestive tract; Z90.89 Acquired absence of other organs; Z98.42 Cataract extraction status, left eye; Z98.41 Cataract extraction status, right eye; Z98.890 Other specified postprocedural states; Z84.1 Family history of disorders of kidney and ureter
CPT/HCPCS: 36415; 74176; 80053; 80202; 83036; 83605; 83690; 84100; 85025; 87040; 87070; 87075; 87205; 90935; 96361; 96365; 96366; 96367; 99285

== ENCOUNTER 2020-02-28 12:32 | Inpatient (IN) | payer MEDICARE, OTHER ==
[2020-02-28] MEDS ORDERED: SODIUM CHLORIDE 0.9% 1,000 ML IV ONE (12:44)
--- NOTE | 2020-02-28 13:10 | ED ---
General Adult HPI - General Chief complaint: Altered Mental Status Stated complaint: AMS Time Seen by Provider: 02/28/20 12:35 Source: EMS, RN notes reviewed, old records reviewed Mode of arrival: EMS Limitations: altered mental status - History of Present Illness Initial comments: 64-year-old female presenting for evaluation of altered mental status which has occurred over the past 24 hours. Exact onset is unknown. Patient has complicated past medical history, including end-stage renal disease, recent diagnosis of coronavirus, hypertension, diabetes, liver disease, and frequent hospitalization. She is currently bedbound and resides in a halfway. According to staff she has receives hemodialysis within the past 2 days. No history available from the patient. - Related Data Home Medications Medication Instructions Recorded Confirmed Atorvastatin [Lipitor] 80 mg PO HS@209912/27/16 02/28/20 Calcium Acetate [PhosLo] 2,001 mg PO AC-TID@09/02/18 02/28/20 Acetaminophen Tab [Tylenol] 500 mg PO Q6H PRN 01/11/19 02/28/20 Docusate Sodium [Dok] 100 mg PO BID@01/11/19 02/28/20 Escitalopram [Lexapro] 20 mg PO DAILY@89904/02/19 02/28/20 Folic Acid-Vit B Complex-Vit C 1 cap PO MOWEFR@209904/02/19 02/28/20 [Nephrocaps] Folic Acid-Vit B Complex-Vit C 1 mg PO SUTUTHSA@89904/02/19 02/28/20 [Nephrocaps] Melatonin 10 mg PO HS@209904/02/19 02/28/20 Clopidogrel [Plavix] 75 mg PO DAILY@89904/09/19 02/28/20 amLODIPine [Norvasc] 2.5 mg PO DAILY@89904/09/19 02/28/20 Levothyroxine Sodium [Synthroid] 175 mcg PO DAILY@59911/05/19 02/28/20 Sodium Polystyrene Sulfonate 15 gm PO SUTUTHSA@89911/05/19 02/28/20 Lidocaine-Prilocaine Cream [Emla 1 applic TOPICAL TUTHSA@1030 11/23/19 02/28/20 Cream 2.5%/2.5%] Furosemide [Lasix] 80 mg PO DAILY@0900 01/28/20 02/28/20 Aspirin 81 mg PO DAILY@0900 02/28/20 02/28/20 Hydrocodone/Acetaminophen [Mccomb 1 tab PO Q12H PRN 02/28/20 02/28/20 10-325] INSULIN LISPRO (humaLOG) [humaLOG] See Protocol SQ ACHS 02/28/20 02/28/20 Magnesium Hydroxide [Milk of 2,400 mg PO DAILY PRN 02/28/20 02/28/20 Magnesia] Sennosides [Senna] 8.6 mg PO DAILY PRN 02/28/20 02/28/20 Previous Rx's Medication Instructions Recorded Nitroglycerin Sl Tabs [Nitrostat] 0.4 mg SUBLINGUAL Q5M PRN tab 04/06/19 LORazepam [Ativan] 1 mg PO BID@0900,2100 #6 tab 02/02/20 Allergies Allergy/AdvReac Type Severity Reaction Status Date / Time adhesive Allergy Rash/Hives Verified 02/28/20 12:44 Penicillins Allergy Rash/Hives Verified 02/28/20 12:44 Iodinated Contrast Media AdvReac KIDNEY Verified 02/28/20 12:44 [Iodinated Contrast- Oral FAILURE and IV Dye] metformin AdvReac SUGAR Verified 02/28/20 12:44 LEVEL INCREASE Review of Systems ROS Statement: Those systems with pertinent positive or pertinent negative responses have been documented in the HPI. ROS Other: All systems not noted in ROS Statement are negative. Past Medical History Past Medical History: Coronary Artery Disease (CAD), Chest Pain / Angina, Dementia, Diabetes Mellitus, Dialysis, Hyperlipidemia, Hypertension, Liver Disease, Myocardial Infarction ([place]), Osteoarthritis (OA), Thyroid Disorder Additional Past Medical History / Comment(s): multiple [place]'s x18. ischemic cardiomyopathy. 12/29/15 STRESS WNL, ALLERGIC rhinitis,[place], CARDIO-PULMONARY ARREST 07/05/14 vertigo, hypertensive nephrosclerosis, Hepatitis A,Vitamin D deficiency, constipation, hx of a cat bit, fall with broken pelvis Last Myocardial Infarction Date:: 09/2013 History of Any Multi-Drug Resistant Organisms: MRSA, VRE Date of last positivie culture/infection: 11/11/18-VRE; 09/27/17 MRSA MDRO Source:: Urine-VRE; Right Breast-MRSA Past Surgical History: Adenoidectomy, Appendectomy, Cholecystectomy, Heart Catheterization With Stent, Hysterectomy, Tonsillectomy Additional Past Surgical History / Comment(s): mary cataracts, LAP-BAND 2004, Laparoscopic cholecystectomy, FIBULA FX has metal pins in place,Left shoulder surgery, Hemodialysis Cataract bilateral with IOL, fistula and sx to" reroute it ",gets dialysis fri-fri-fri. has insulin pump. no bp on left, excisional debreidment rt lower ext., foot surgery Past Anesthesia/Blood Transfusion Reactions: Motion Sickness, Postoperative Nausea & Vomiting (PONV) Additional Past Anesthesia/Blood Transfusion Reaction / Comment(s): blood transfusion-pt stated they gave her medication for a reaction but does'nt rememebr what the reaction was Date of Last Stent Placement:: 2014 Past Psychological History: Anxiety, Bipolar, Depression Smoking Status: Never smoker Past Alcohol Use History: None Reported Past Drug Use History: None Reported - Past Family History Mother Family Medical History: Congestive Heart Failure (CHF), Diabetes Mellitus, Hypertension Father History Unknown: Yes Family Medical History: Diabetes Mellitus Brother(s) Family Medical History: Diabetes Mellitus, Hyperlipidemia Additional Family Medical History / Comment(s): Hypertension chronic kidney disease General Exam Limitations: altered mental status General appearance: lethargic Head exam: Present: atraumatic, normocephalic Eye exam: Present: normal appearance, PERRL ENT exam: Present: mucous membranes dry Neck exam: Present: normal inspection Respiratory exam: Present: rhonchi, decreased breath sounds Cardiovascular Exam: Present: regular rate, normal rhythm GI/Abdominal exam: Present: soft. Absent: distended, tenderness, guarding Neurological exam: Absent: oriented X3 Skin exam: Present: warm, dry Course Vital Signs 02/28/20 02/28/20 02/28/20 12:35 13:00 13:30 Temperature 97.5 F L Pulse Rate 75 74 Respiratory 20 16 Rate Blood Pressure 127/67 127/64 124/56 O2 Sat by Pulse 100 100 Oximetry 02/28/20 14:30 Temperature Pulse Rate 69 Respiratory 17 Rate Blood Pressure 107/44 O2 Sat by Pulse 100 Oximetry EKG Findings - EKG Comments: EKG Findings:: Bifascicular block, wide-complex rhythm, no definitive atrial activity, rate of 73, QRS duration 150, QTC 497 patient has a ventricular pacemaker, I do not see any definitive pacemaker spikes. Medical Decision Making - Medical Decision Making 64-year-old with multiple medical problems presenting with acute confusion, elevated sugar. Patient is not able to contribute to the history. Workup was initiated, she has a negative head CT, no intracranial hemorrhage or mass effect, chest x-ray showing fluid overload and CHF. She is anemic and acidotic. She has a mild lactic acid of 2.5. I suspect her acidosis is likely related to ketosis and the patient is in diabetic ketoacidosis. She started on an insulin drip. I did discuss case with Dr. Gar who is familiar with the patient. He does request troponin. This patient, this level will be added. We will admit with nephrology on consult. She she will receive hemodialysis. Diagnosis: Delirium, DKA, pneumonia, fluid overload end-stage renal disease - Lab Data Result diagrams: 02/28/20 12:59 02/28/20 12:59 Lab Results 02/28/20 02/28/20 02/28/20 Range/Units 12:59 12:59 12:59 WBC 9.4 (3.8-10.6) k/uL RBC 3.67 L (3.80-5.40) m/uL Hgb 11.5 (11.4-16.0) gm/dL Hct 36.0 (34.0-46.0) % MCV 98.3 (80.0-100.0) fL MCH 31.3 (25.0-35.0) pg MCHC 31.8 (31.0-37.0) g/dL RDW 15.7 H (11.5-15.5) % Plt Count 187 (150-450) k/uL MPV 10.0 Neutrophils % 91 % Lymphocytes % 4 % Monocytes % 4 % Eosinophils % 0 % Basophils % 0 % Neutrophils # 8.5 H (1.3-7.7) k/uL Lymphocytes # 0.4 L (1.0-4.8) k/uL Monocytes # 0.4 (0-1.0) k/uL Eosinophils # 0.0 (0-0.7) k/uL Basophils # 0.0 (0-0.2) k/uL Hypochromasia Marked Macrocytosis Slight PT 12.3 H (9.0-12.0) sec INR 1.2 H (<1.2) APTT 25.8 (22.0-30.0) sec VBG pH (7.31-7.41) VBG pCO2 (37-51) mmHg VBG HCO3 (24-28) mmol/L Sodium 134 L (137-145) mmol/L Potassium 5.0 (3.5-5.1) mmol/L Chloride 94 L (98-107) mmol/L Carbon Dioxide 13 L (22-30) mmol/L Anion Gap 27 mmol/L BUN 47 H (7-17) mg/dL Creatinine 5.94 H (0.52-1.04) mg/dL Est GFR (CKD-EPI)AfAm 8 (>60 ml/min/1.73 sqM) Est GFR (CKD-EPI)NonAf 7 (>60 ml/min/1.73 sqM) Glucose 443 H (74-99) mg/dL POC Glucose (mg/dL) (75-99) mg/dL POC Glu Newspaper Peddler ID Plasma Lactic Acid Dougie (0.7-2.0) mmol/L Calcium 9.7 (8.4-10.2) mg/dL Magnesium 2.3 (1.6-2.3) mg/dL Total Bilirubin 1.2 (0.2-1.3) mg/dL AST 38 H (14-36) U/L ALT 15 (4-34) U/L Alkaline Phosphatase 123 (38-126) U/L Ammonia (<30) umol/L Total Protein 6.4 (6.3-8.2) g/dL Albumin 3.2 L (3.5-5.0) g/dL Acetone, Qual (Negative) 02/28/20 02/28/20 02/28/20 Range/Units 12:59 12:59 12:59 WBC (3.8-10.6) k/uL RBC (3.80-5.40) m/uL Hgb (11.4-16.0) gm/dL Hct (34.0-46.0) % MCV (80.0-100.0) fL MCH (25.0-35.0) pg MCHC (31.0-37.0) g/dL RDW (11.5-15.5) % Plt Count (150-450) k/uL MPV Neutrophils % % Lymphocytes % % Monocytes % % Eosinophils % % Basophils % % Neutrophils # (1.3-7.7) k/uL Lymphocytes # (1.0-4.8) k/uL Monocytes # (0-1.0) k/uL Eosinophils # (0-0.7) k/uL Basophils # (0-0.2) k/uL Hypochromasia Macrocytosis PT (9.0-12.0) sec INR (<1.2) APTT (22.0-30.0) sec VBG pH 7.42 H (7.31-7.41) VBG pCO2 20 L (37-51) mmHg VBG HCO3 13 L (24-28) mmol/L Sodium (137-145) mmol/L Potassium (3.5-5.1) mmol/L Chloride (98-107) mmol/L Carbon Dioxide (22-30) mmol/L Anion Gap mmol/L BUN (7-17) mg/dL Creatinine (0.52-1.04) mg/dL Est GFR (CKD-EPI)AfAm (>60 ml/min/1.73 sqM) Est GFR (CKD-EPI)NonAf (>60 ml/min/1.73 sqM) Glucose (74-99) mg/dL POC Glucose (mg/dL) (75-99) mg/dL POC Glu Newspaper Peddler ID Plasma Lactic Acid Dougie 2.5 H* (0.7-2.0) mmol/L Calcium (8.4-10.2) mg/dL Magnesium (1.6-2.3) mg/dL Total Bilirubin (0.2-1.3) mg/dL AST (14-36) U/L ALT (4-34) U/L Alkaline Phosphatase (38-126) U/L Ammonia <9 (<30) umol/L Total Protein (6.3-8.2) g/dL Albumin (3.5-5.0) g/dL Acetone, Qual Positive (Negative) 02/28/20 Range/Units 13:42 WBC (3.8-10.6) k/uL RBC (3.80-5.40) m/uL Hgb (11.4-16.0) gm/dL Hct (34.0-46.0) % MCV (80.0-100.0) fL MCH (25.0-35.0) pg MCHC (31.0-37.0) g/dL RDW (11.5-15.5) % Plt Count (150-450) k/uL MPV Neutrophils % % Lymphocytes % % Monocytes % % Eosinophils % % Basophils % % Neutrophils # (1.3-7.7) k/uL Lymphocytes # (1.0-4.8) k/uL Monocytes # (0-1.0) k/uL Eosinophils # (0-0.7) k/uL Basophils # (0-0.2) k/uL Hypochromasia Macrocytosis PT (9.0-12.0) sec INR (<1.2) APTT (22.0-30.0) sec VBG pH (7.31-7.41) VBG pCO2 (37-51) mmHg VBG HCO3 (24-28) mmol/L Sodium (137-145) mmol/L Potassium (3.5-5.1) mmol/L Chloride (98-107) mmol/L Carbon Dioxide (22-30) mmol/L Anion Gap mmol/L BUN (7-17) mg/dL Creatinine (0.52-1.04) mg/dL Est GFR (CKD-EPI)AfAm (>60 ml/min/1.73 sqM) Est GFR (CKD-EPI)NonAf (>60 ml/min/1.73 sqM) Glucose (74-99) mg/dL POC Glucose (mg/dL) 439 H (75-99) mg/dL POC Glu Newspaper Peddler ID Td Jeniffer Plasma Lactic Acid Dougie (0.7-2.0) mmol/L Calcium (8.4-10.2) mg/dL Magnesium (1.6-2.3) mg/dL Total Bilirubin (0.2-1.3) mg/dL AST (14-36) U/L ALT (4-34) U/L Alkaline Phosphatase (38-126) U/L Ammonia (<30) umol/L Total Protein (6.3-8.2) g/dL Albumin (3.5-5.0) g/dL Acetone, Qual (Negative) Critical Care Time Critical Care Time: Yes Total Critical Care Time: 35 Disposition Clinical Impression: ESRD (end stage renal disease), Altered mental status, DKA (diabetic ketoacidoses) Disposition: ADMITTED IP TO THIS [facility] Condition: Stable Is patient prescribed a controlled substance at d/c from ED?: No Referrals: Kimberli Gar MD [Primary Care Provider] - 1-2 days Decision to Admit Reason: Admit from EC Decision Date: 02/28/20 Decision Time: 15:01
[2020-02-28 13:11] LABS: Basophils % (A) 0 %; Eosinophils % (A) 0 %; HGB 11.5 gm/dL (11.4-16.0); Hypochromasia Marked; Lymphocytes # (A) 0.4 k/uL (1.0-4.8); Lymphocytes % (A) 4 %; MCH 31.3 pg (25.0-35.0); MCHC 31.8 g/dL (31.0-37.0); MCV 98.3 fL (80.0-100.0); Macrocytosis Slight; Monocytes # (A) 0.4 k/uL (0-1.0); Monocytes % (A) 4 %; Neutrophils # (A) 8.5 k/uL (1.3-7.7); Neutrophils % (A) 91 %; Platelet Count 187 k/uL (150-450); RBC 3.67 m/uL (3.80-5.40); RDW 15.7 % (11.5-15.5); VBG PH 7.42 (7.31-7.41); WBC 9.4 k/uL (3.8-10.6)
--- NOTE | 2020-02-28 13:19 | XR ---
EXAMINATION TYPE: XR chest 1V portable DATE OF EXAM: 02/28/2020 COMPARISON: Chest x-ray November 22, 2019 HISTORY: Weakness. TECHNIQUE: Single AP portable frontal upright view of the chest is obtained. FINDINGS: There is low lung volumes and chronic parenchymal changes with increased reticular opaciti es centrally. No pleural effusion or pneumothorax. The cardiac silhouette size remains enlarged with dual lead pacemaker. The osseous structures are intact. IMPRESSION: Correlate for CHF exacerbation as there is low lung volumes and cardiomegaly with suspec jay more prominent central vascular congestion. Atypical infiltrates felt less likely.
[2020-02-28 13:21] LABS: Albumin 3.2 g/dL (3.5-5.0); Calcium 9.7 mg/dL (8.4-10.2); Magnesium 2.3 mg/dL (1.6-2.3); Total Bilirubin 1.2 mg/dL (0.2-1.3); Total Protein 6.4 g/dL (6.3-8.2)
[2020-02-28 13:35] LABS: INR 1.2 (<1.2); Partial Thromboplastin Time 25.8 sec (22.0-30.0); Prothrombin Time 12.3 sec (9.0-12.0)
[2020-02-28 13:39] LABS: Lactic Acid, Venous 2.5 mmol/L (0.7-2.0)
[2020-02-28 13:44] LABS: Glucose,Whole Blood 439 mg/dL (75-99)
--- NOTE | 2020-02-28 14:06 | CT ---
EXAMINATION TYPE: CT brain wo con DATE OF EXAM: 02/28/2020 COMPARISON: 11/05/2019 HISTORY: AMS CT DLP: 1202.4 mGycm Automated exposure control for dose reduction was used. 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 Artifact limits assessment of posterior fossa. No obvious acute hemorrhage or mass effect. No midline shift. Moderate generalized degenerative change with faint periventricular white matter low attenuation whic h is nonspecific. Most likely secondary to remote white matter ischemia. Changes of chronic sinusitis are noted. Orbits are symmetric. IMPRESSION: DEGENERATIVE AND REMOTE ISCHEMIC CHANGE WITH NO ACUTE HEMORRHAGE OR MASS EFFECT.
[2020-02-28] MEDS ORDERED: SODIUM CHLORIDE 0.9% 1,000 ML IV SCH (14:15)
[2020-02-28] MEDS ORDERED: D5-0.45% NACL WITH KCL 20MEQ/L 1,000 ML IV SCH (14:15)
[2020-02-28] MEDS: INSULIN REGULAR 100 UNIT in SODIUM CHLORIDE 0.9% 100 ML IV SCH (14:39)
[2020-02-28 15:56] LABS: Glucose,Whole Blood 395 mg/dL (75-99)
[2020-02-28] MEDS ORDERED: HEPARIN SODIUM 1,000 UN/ML (10ML VL) MISCELLANE ONE (16:48)
[2020-02-28] MEDS ORDERED: HEPARIN SODIUM,PORCINE 5,000 UNIT/ML 1 ML VIAL IV PRN (17:00)
[2020-02-28 17:15] LABS: Glucose,Whole Blood 355 mg/dL (75-99)
[2020-02-28] MEDS: HEPARIN SOD,PORK IN 0.45% NACL 25,000 UNIT in 0.45% NACL 1 250ML.BAG IV SCH (17:21)
[2020-02-28 18:14] LABS: Glucose,Whole Blood 189 mg/dL (75-99)
[2020-02-28 19:00] LABS: Glucose,Whole Blood 160 mg/dL (75-99)
[2020-02-28 20:23] LABS: Glucose,Whole Blood 140 mg/dL (75-99)
[2020-02-28] MEDS: D5-0.45% NACL WITH KCL 20MEQ/L 1,000 ML IV SCH (20:23)
[2020-02-28 21:02] LABS: Glucose,Whole Blood 159 mg/dL (75-99)
[2020-02-28 21:58] LABS: Glucose,Whole Blood 141 mg/dL (75-99)
[2020-02-28 23:03] LABS: Glucose,Whole Blood 145 mg/dL (75-99)
[2020-02-28] MEDS ORDERED: ACETAMINOPHEN TAB 500 MG TAB PO PRN (23:37)
[2020-02-28] MEDS ORDERED: SENNOSIDES 8.6 MG TAB PO PRN (23:37)
[2020-02-28] MEDS ORDERED: NITROGLYCERIN SL TABS 0.4 MG TAB SUBLINGUAL PRN (23:37)
[2020-02-29] LABS: Glucose,Whole Blood 158 mg/dL (75-99)
[2020-02-29 00:10] LABS: INR 1.4 (<1.2); Prothrombin Time 13.7 sec (9.0-12.0)
[2020-02-29 00:12] LABS: Partial Thromboplastin Time >200.0 sec (22.0-30.0)
[2020-02-29 00:48] LABS: Phosphorus 2.5 mg/dL (2.5-4.5); Potassium 3.9 mmol/L (3.5-5.1)
[2020-02-29 01:00] LABS: Glucose,Whole Blood 159 mg/dL (75-99)
[2020-02-29] MEDS ORDERED: INSULIN DETEMIR (LEVEMIR) 100 UNIT/ML SYR SQ STA (01:33)
[2020-02-29 02:01] LABS: Glucose,Whole Blood 159 mg/dL (75-99)
[2020-02-29] MEDS: INSULIN REGULAR 100 UNIT in SODIUM CHLORIDE 0.9% 100 ML IV SCH (02:50)
[2020-02-29 06:04] LABS: Glucose,Whole Blood 250 mg/dL (75-99)
[2020-02-29] MEDS: LEVOTHYROXINE 50 MCG TAB PO SCH (06:35)
[2020-02-29] MEDS: INSULIN ASPART (NovoLOG) 100 UNIT/ML VIAL SQ SCH ×4 (06:41→21:36)
[2020-02-29] MEDS: D5-0.45% NACL WITH KCL 20MEQ/L 1,000 ML IV SCH ×2 (06:42→12:35)
[2020-02-29] MEDS ORDERED: SODIUM POLYSTYRENE SULFONATE PO SCH (09:00)
[2020-02-29] MEDS ORDERED: amLODIPine 2.5 MG TAB PO SCH (09:00)
[2020-02-29] MEDS ORDERED: [UNRECOGNIZED DRUG - OTHER] PO SCH (09:00)
[2020-02-29 09:01] LABS: Anisocytosis Slight; Basophils % (A) 0 %; Eosinophils % (A) 0 %; HCT 33.3 % (34.0-46.0); HGB 10.2 gm/dL (11.4-16.0); Hypochromasia Moderate; Lymphocytes # (A) 0.6 k/uL (1.0-4.8); Lymphocytes % (A) 10 %; MCH 29.4 pg (25.0-35.0); MCHC 30.5 g/dL (31.0-37.0); MCV 96.5 fL (80.0-100.0); Mean Platelet Volume 9.1; Monocytes # (A) 0.2 k/uL (0-1.0); Monocytes % (A) 4 %; Neutrophils # (A) 4.8 k/uL (1.3-7.7); Neutrophils % (A) 83 %; Platelet Count 149 k/uL (150-450); RBC 3.45 m/uL (3.80-5.40); WBC 5.7 k/uL (3.8-10.6)
[2020-02-29 09:12] LABS: Albumin 2.8 g/dL (3.5-5.0); Total Protein 6.2 g/dL (6.3-8.2)
[2020-02-29] MEDS: CLOPIDOGREL 75 MG TAB PO SCH (09:30)
[2020-02-29] MEDS: CALCIUM ACETATE 667 MG TAB PO SCH ×4 (09:30→17:47)
[2020-02-29] MEDS: ASPIRIN 81 MG PO SCH (09:30)
[2020-02-29] MEDS: ESCITALOPRAM 20 MG TAB PO SCH (09:31)
[2020-02-29] MEDS: FUROSEMIDE 80 MG TAB PO SCH (09:31)
[2020-02-29] MEDS: DOCUSATE 100 MG CAP PO SCH ×2 (09:31→21:37)
[2020-02-29] MEDS: LIDOCAINE-PRILOCAINE 2.5-2.5% CREAM 5 GM TUBE TOPICAL SCH (09:32)
[2020-02-29] MEDS: FOLIC ACID-VIT B COMPLEX-VIT C 1 CAP PO SCH (09:32)
--- NOTE | 2020-02-29 10:17 | P.NPCON ---
History of Present Illness - Reason for Consult end stage renal disease - History of Present Illness Reason for consultation: End-stage renal disease History of present illness: Patient is a 64-year-old female seen in renal consultation for end-stage renal disease. She is maintained on hemodialysis on Friday schedule. Patient was recently diagnosed with covid-19 infection. She resides at an extended care facility. She was sent to the hospital for altered mental status. Her blood sugar was over 400 on admission and she was on insulin drip which is now been discontinued. Patient remains somewhat confused. Brain CT revealed no acute changes. Denies chest pain or shortness of breath. No vomiting or diarrhea. Blood pressures controlled. No fever or chills. She is receiving IV fluids. She had dialysis yesterday with 2.5 L ultrafiltration. Vital signs are stable. General: The patient appeared well nourished and normally developed. HEENT: Head exam is unremarkable. Neck is without jugular venous distension. LUNGS: Breath sounds decreased. HEART: Rate and Rhythm are regular. ABDOMEN: Soft, nontender. EXTREMITITES: Trace edema. Chronic changes noted. Past Medical History Past Medical History: Coronary Artery Disease (CAD), Chest Pain / Angina, Dementia, Diabetes Mellitus, Dialysis, Hyperlipidemia, Hypertension, Liver Dis ease, Myocardial Infarction (ID), Osteoarthritis (OA), Thyroid Disorder Additional Past Medical History / Comment(s): multiple ID's [id number]. ischemic cardiomyopathy. 12/29/15 STRESS WNL, ALLERGIC rhinitis,ID, CARDIO-PULMONARY ARREST 07/05/14 vertigo, hypertensive nephrosclerosis, Hepatitis A,Vitamin D deficiency, constipation, hx of a cat bit, fall with broken pelvis Last Myocardial Infarction Date:: 09/2013 History of Any Multi-Drug Resistant Organisms: MRSA, VRE Date of last positivie culture/infection: 11/11/18-VRE; 09/27/17 MRSA MDRO Source:: Urine-VRE; Right Breast-MRSA Past Surgical History: Adenoidectomy, Appendectomy, Cholecystectomy, Heart Catheterization With Stent, Hysterectomy, Tonsillectomy Additional Past Surgical History / Comment(s): mary cataracts, LAP-BAND 2005, Laparoscopic cholecystectomy, FIBULA FX has metal pins in place,Left shoulder surgery, Hemodialysis Cataract bilateral with IOL, fistula and sx to" reroute it",gets dialysis fri-fri-fri. has insulin pump. no bp on left, excisional debreidment rt lower ext., foot surgery Past Anesthesia/Blood Transfusion Reactions: Motion Sickness, Postoperative Nausea & Vomiting (PONV) Additional Past Anesthesia/Blood Transfusion Reaction / Comment(s): blood transfusion-pt stated they gave her medication for a reaction but does'nt rememebr what the reaction was Date of Last Stent Placement:: 2014 Past Psychological History: Anxiety, Bipolar, Depression Smoking Status: Never smoker Past Alcohol Use History: None Reported Past Drug Use History: None Reported - Past Family History Mother Family Medical History: Congestive Heart Failure (CHF), Diabetes Mellitus, Hypertension Father History Unknown: Yes Family Medical History: Diabetes Mellitus Brother(s) Family Medical History: Diabetes Mellitus, Hyperlipidemia Additional Family Medical History / Comment(s): Hypertension chronic kidney disease Medications and Allergies Home Medications Medication Instructions Recorded Confirmed Type Atorvastatin [Lipitor] 80 mg PO HS@209912/27/16 02/28/20 History Calcium Acetate [PhosLo] 2,001 mg PO AC-TID@09/02/18 02/28/20 History Acetaminophen Tab [Tylenol] 500 mg PO Q6H PRN 01/11/19 02/28/20 History Docusate Sodium [Dok] 100 mg PO BID@01/11/19 02/28/20 History Escitalopram [Lexapro] 20 mg PO DAILY@89904/02/19 02/28/20 History Folic Acid-Vit B Complex-Vit C 1 cap PO MOWEFR@209904/02/19 02/28/20 History [Nephrocaps] Folic Acid-Vit B Complex-Vit C 1 mg PO SUTUTHSA@89904/02/19 02/28/20 History [Nephrocaps] Melatonin 10 mg PO HS@209904/02/19 02/28/20 History Nitroglycerin Sl Tabs [Nitrostat] 0.4 mg SUBLINGUAL Q5M PRN tab 04/06/19 02/28/20 Rx Clopidogrel [Plavix] 75 mg PO DAILY@89904/09/19 02/28/20 History amLODIPine [Norvasc] 2.5 mg PO DAILY@89904/09/19 02/28/20 History Levothyroxine Sodium [Synthroid] 175 mcg PO DAILY@0600 11/05/19 02/28/20 History Sodium Polystyrene Sulfonate 15 gm PO SUTUTHSA@0900 11/05/19 02/28/20 History Lidocaine-Prilocaine Cream [Emla 1 applic TOPICAL TUTHSA@1030 11/23/19 02/28/20 History Cream 2.5%/2.5%] Furosemide [Lasix] 80 mg PO DAILY@0900 01/28/20 02/28/20 History LORazepam [Ativan] 1 mg PO BID@0900,2100 #6 tab 02/02/20 02/28/20 Rx Aspirin 81 mg PO DAILY@0900 02/28/20 02/28/20 History Hydrocodone/Acetaminophen [Gamaliel 1 tab PO Q12H PRN 02/28/20 02/28/20 History 10-325] INSULIN LISPRO (humaLOG) [humaLOG] See Protocol SQ ACHS 02/28/20 02/28/20 History Magnesium Hydroxide [Milk of 2,400 mg PO DAILY PRN 02/28/20 02/28/20 History Magnesia] Sennosides [Senna] 8.6 mg PO DAILY PRN 02/28/20 02/28/20 History Allergies Allergy/AdvReac Type Severity Reaction Status Date / Time adhesive Allergy Rash/Hives Verified 02/28/20 12:44 Penicillins Allergy Rash/Hives Verified 02/28/20 12:44 Iodinated Contrast Media AdvReac KIDNEY Verified 02/28/20 12:44 [Iodinated Contrast- Oral FAILURE and IV Dye] metformin AdvReac SUGAR Verified 02/28/20 12:44 LEVEL INCREASE Physical Exam Vitals: Vital Signs Temp Pulse Pulse Resp BP BP Pulse Ox 02/29/20 03:44 98.4 F 65 19 155/70 100 02/29/20 00:00 98.4 F 77 19 132/59 100 02/28/20 22:10 97.7 F 69 19 142/75 99 02/28/20 21:55 97.6 F 60 16 127/62 99 02/28/20 21:02 59 L 18 139/58 99 02/28/20 20:03 97.7 F 62 18 128/77 02/28/20 20:00 98.8 F 60 16 135/67 100 02/28/20 19:00 65 13 115/57 100 02/28/20 18:30 66 15 115/54 100 02/28/20 18:00 65 16 110/61 100 02/28/20 17:30 66 15 121/60 100 02/28/20 17:00 74 17 125/62 100 02/28/20 16:30 78 20 128/61 100 02/28/20 16:00 85 18 123/54 100 02/28/20 15:30 80 18 102/40 100 02/28/20 15:00 74 16 106/47 100 02/28/20 14:30 69 17 107/44 100 02/28/20 13:30 124/56 02/28/20 13:00 74 16 127/64 100 02/28/20 12:35 97.5 F L 75 20 127/67 100 Intake and Output 02/28/20 02/29/20 02/29/20 22:59 06:59 14:59 Intake Total 72.045 126.130 Output Total 2500 0 Balance -2427.955 126.130 Intake: Intake, IV Titration 72.045 126.130 Amount Heparin Sod,Pork in 0.45% 118.127 NaCl 25,000 unit In 0.45 % NaCl 1 250ml.bag @ 18 UNITS/KG/HR 17.203 mls/hr IV .[id number] CYNTHIA Rx#: [id number] Insulin Regular 100 unit 72.045 8.003 In Sodium Chloride 0.9% 100 ml @ 0.1 UNITS/KG/HR 9.653 mls/hr IV .[id number] CYNTHIA Rx#:[id number] Output: Urine 0 Hemodialysis 2500 Other: # Voids 1 0 0 Weight 95.572 kg 95.5 kg Results - Lab Results Most recent lab results Calcium 9.0 mg/dL (8.4-10.2) 02/29/20 08:39 Phosphorus 2.5 mg/dL (2.5-4.5) 02/28/20 23:15 Magnesium 2.3 mg/dL (1.6-2.3) 02/28/20 12:59 02/29/20 08:39 02/29/20 08:39 Assessment and Plan Plan: Assessment: 1. End-stage renal disease maintained on hemodialysis on Friday schedule. 2. DKA status post insulin drip. 3. Recent Covid 19 infection. 4. Hypertension with chronic kidney disease. Stable. 5. Chronic kidney disease mineral bone disease maintained on PhosLo. 6. Encephalopathy. ?related to DKA. Plan: Hemodialysis tomorrow. Check phosphorus level. Hep-Lock IV fluids. Follow-up echocardiogram. Follow-up cultures. Thank you for the consultation. I will continue to follow the patient with you during her hospital stay.
[2020-02-29 11:55] LABS: Glucose,Whole Blood 202 mg/dL (75-99)
--- NOTE | 2020-02-29 12:00 | ECHOF ---
Referral Reason:NSTEMI MEASUREMENTS -------- HEIGHT: 172.7 cm WEIGHT: 95.3 kg BP: RVIDd: 3.8 cm (< 3.3) IVSd: 1.4 cm (0.6 - 1.1) LVIDd: 3.4 cm (3.9 - 5.3) LVPWd: 1.3 cm (0.6 - 1.1) IVSs: 1.6 cm LVIDs: 2.3 cm LVPWs: 2.0 cm LAESV Index (A-L): 32.31 ml/m Ao Diam: 2.6 cm (2.0 - 3.7) AV Cusp: 1.7 cm (1.5 - 2.6) LA Diam: 3.2 cm (2.7 - 3.8) MV EXCURSION: 16.312 mm (> 18.000) MV EF SLOPE: 85 mm/s (70 - 150) EPSS: 0.7 cm MV E Errol: 1.23 m/s MV DecT: 209 ms MV A Errol: 0.32 m/s MV E/A Ratio: 3.77 AV maxP.78 mmHg AV meanP.66 mmHg RAP: 5.00 mmHg RVSP: 63.74 mmHg FINDINGS -------- Pacerwire seen in RV and RA. Pacemaker This was a technically difficult study with suboptimal views. There is moderate concentric left ventricular hypertrophy. Overall left ventricular systolic functi on is moderately impaired with, an EF between 35 - 40 %. There is paradoxical/dysynergic septal mot ion consistent with right ventricular volume overload and/or elevated right ventricular end-diastolic pressure. There is predominantly apical hypokinesis with preserved basal function which may be con sistent with Takostubo's cardiomyopathy or CAD. Clinical correlation recommended. The right ventricle is mild to moderately enlarged. Lumason used Aortic valve is trileaflet and is mildly thickened. There is mild aortic valve sclerosis. Peak/me an gradient across the Aortic Valve is 10.78mmHg / 5.66mmHg. The mitral valve is normal. The mitral valve leaflets are mildly thickened. Mild mitral regurgita tion is present. The tricuspid valve appears structurally normal. Moderate tricuspid regurgitation present. There is moderate pulmonary hypertension. The right ventricular systolic pressure, as measured by Doppler , is 63.74mmHg. Trace/mild (physiologic) pulmonic regurgitation. The aortic root size is normal. There is a trivial pericardial effusion present. CONCLUSIONS -------- 1. Pacerwire seen in RV and RA. 2. Pacemaker 3. There is moderate concentric left ventricular hypertrophy. 4. Overall left ventricular systolic function is moderately impaired with, an EF between 35 - 40 %. 5. There is paradoxical/dysynergic septal motion consistent with right ventricular volume overload an d/or elevated right ventricular end-diastolic pressure. 6. There is predominantly apical hypokinesis with preserved basal function which may be consistent wi th Takostubo's cardiomyopathy or CAD. Clinical correlation recommended. 7. The right ventricle is mild to moderately enlarged. 8. Aortic valve is trileaflet and is mildly thickened. 9. There is mild aortic valve sclerosis. 10. Peak/mean gradient across the Aortic Valve is 10.78mmHg / 5.66mmHg. 11. The mitral valve leaflets are mildly thickened. 12. Mild mitral regurgitation is present. 13. Moderate tricuspid regurgitation present. 14. There is moderate pulmonary hypertension. 15. The right ventricular systolic pressure, as measured by Doppler, is 63.74mmHg. 16. Trace/mild (physiologic) pulmonic regurgitation. 17. There is a trivial pericardial effusion present. DUST HANDLER: Jess Leavitt RDCS
[2020-02-29] MEDS: carvediloL 3.125 MG TAB PO SCH ×2 (12:59→17:48)
[2020-02-29] MEDS: HEPARIN SOD,PORK IN 0.45% NACL 25,000 UNIT in 0.45% NACL 1 250ML.BAG IV SCH ×2 (12:59→22:30)
[2020-02-29 15:43] VITALS: BMI 32.0
--- NOTE | 2020-02-29 15:48 | P.CRDCN ---
History of Present Illness Consult date: 02/29/20 History of present illness: CHIEF COMPLAINT: Elevated troponin HISTORY OF PRESENT ILLNESS: This is a 64-year old female with a past medical history significant for coronary artery disease with previous stent placement, hypertension, hyperlipidemia, diabetes mellitus, and kidney disease. Patient follows in the office with Dr. Smith. We have been asked to see the patient in consultation for elevated troponins. Patient examined at the bedside. Patient is lethargic and unable to give any information. Apparently, the patient was admitted for altered mental status. The patient was recently diagnosed with Covid about two weeks ago. DIAGNOSTICS: EKG reveals sinus mechanism with right bundle branch block Chest xray low lung volumes and cardiomegaly Laboratory data: WBC 5.7. Hemoglobin 10.2. Platelet count 149. Sodium 136. Potassium 4.0. BUN 32. Creatinine 4.12. Troponin 1.650. 2.750 Current home cardiac medications include Norvasc 2.5 mg daily, Lasix 80 mg daily, Plavix 75 mg daily, Lipitor 80 mg daily, aspirin 81 mg daily Echocardiogram completed reveals ejection fraction 35-40%, predominantly apical hypokinesis with preserved basal function which may be consistent with Takostubos cardiomyopathy, mild mitral regurgitation, moderate tricuspid regurgitation and moderate pulmonary hypertension Most recent cardiac catheterization performed in March 2019 reveals total occlusion of the diagonal branch. First obtuse marginal totally occluded. Recently stented LAD is widely patent with good flow. RCA has no significant disease. REVIEW OF SYSTEMS: Thorough review of systems unable to be completed secondary to altered mental status PHYSICAL EXAM: VITAL SIGNS: Reviewed. GENERAL: Well-developed in no acute distress. HEENT: Head is normocephalic. Pupils are equal, round. Sclerae anicteric. Mucous membranes of the mouth are moist. Neck supple. No JVD or thyromegaly LUNGS: Respirations even and unlabored. Lungs diminished. HEART: Regular rate and rhythm. S1 and S2 heard. ABDOMEN: Soft. Nondistended. Nontender. EXTREMITIES: Normal range of motion. No clubbing or cyanosis. Peripheral pulses intact. Trace bilateral lower extremity edema NEUROLOGIC: Lethargic ASSESSMENT: Altered mental status Coronary artery disease with previous multivessel PCI Abnormal troponins History of sick sinus syndrome, s/p dual chamber pacemaker Hypertension Hyperlipidemia End-stage renal disease Recent Covid 19 PLAN: Nephrology following. Patient to have hemodialysis tomorrow Continue IV heparin Resume home cardiac medications Patient may have Takostubos cardiomyopathy based on echo per Dr. Smith. Patient does have elevated troponins but without complaints of chest pain or EKG changes. Will continue with medical management at this time Dr. Smith would like to have pacemaker interrogated tomorrow morning and like to be present when this happens. Spoke with [employer] device rep who is available tomorrow morning Further recommendations pending patient course Nurse practitioner note has been reviewed by physician. Signing provider agrees with the documented findings, assessment, and plan of care. Past Medical History Past Medical History: Coronary Artery Disease (CAD), Chest Pain / Angina, Dementia, Diabetes Mellitus, Dialysis, Hyperlipidemia, Hypertension, Liver Disease, Myocardial Infarction ([place]), Osteoarthritis (OA), Thyroid Disorder Additional Past Medical History / Comment(s): multiple KS's x18. ischemic cardiomyopathy. 12/29/15 STRESS WNL, ALLERGIC rhinitis,[place], CARDIO-PULMONARY ARREST 07/05/14 vertigo, hypertensive nephrosclerosis, Hepatitis A,Vitamin D deficiency, constipation, hx of a cat bit, fall with broken pelvis Last Myocardial Infarction Date:: 09/2013 History of Any Multi-Drug Resistant Organisms: MRSA, VRE Date of last positivie culture/infection: 11/11/18-VRE; 09/27/17 MRSA MDRO Source:: Urine-VRE; Right Breast-MRSA Past Surgical History: Adenoidectomy, Appendectomy, Cholecystectomy, Heart Catheterization With Stent, Hysterectomy, Tonsillectomy Additional Past Surgical History / Comment(s): mary cataracts, LAP-BAND 2004, Laparoscopic cholecystectomy, FIBULA FX has metal pins in place,Left shoulder surgery, Hemodialysis Cataract bilateral with IOL, fistula and sx to" reroute it",gets dialysis fri-fri-fri. has insulin pump. no bp on left, excisional debreidment rt lower ext., foot surgery Past Anesthesia/Blood Transfusion Reactions: Motion Sickness, Postoperative Nausea & Vomiting (PONV) Additional Past Anesthesia/Blood Transfusion Reaction / Comment(s): blood transfusion-pt stated they gave her medication for a reaction but does'nt rememebr what the reaction was Date of Last Stent Placement:: 2014 Past Psychological History: Anxiety, Bipolar, Depression Smoking Status: Never smoker Past Alcohol Use History: None Reported Past Drug Use History: None Reported - Past Family History Mother Family Medical History: Congestive Heart Failure (CHF), Diabetes Mellitus, Hypertension Father History Unknown: Yes Family Medical History: Diabetes Mellitus Brother(s) Family Medical History: Diabetes Mellitus, Hyperlipidemia Additional Family Medical History / Comment(s): Hypertension chronic kidney disease Medications and Allergies Home Medications Medication Instructions Recorded Confirmed Type Atorvastatin [Lipitor] 80 mg PO HS@209912/27/16 02/28/20 History Calcium Acetate [PhosLo] 2,001 mg PO AC-TID@09/02/18 02/28/20 History Acetaminophen Tab [Tylenol] 500 mg PO Q6H PRN 01/11/19 02/28/20 History Docusate Sodium [Dok] 100 mg PO BID@899,209901/11/19 02/28/20 History Escitalopram [Lexapro] 20 mg PO DAILY@89904/02/19 02/28/20 History Folic Acid-Vit B Complex-Vit C 1 cap PO MOWEFR@209904/02/19 02/28/20 History [Nephrocaps] Folic Acid-Vit B Complex-Vit C 1 mg PO SUTUTHSA@89904/02/19 02/28/20 History [Nephrocaps] Melatonin 10 mg PO HS@209904/02/19 02/28/20 History Nitroglycerin Sl Tabs [Nitrostat] 0.4 mg SUBLINGUAL Q5M PRN tab 04/06/19 02/28/20 Rx Clopidogrel [Plavix] 75 mg PO DAILY@89904/09/19 02/28/20 History amLODIPine [Norvasc] 2.5 mg PO DAILY@89904/09/19 02/28/20 History Levothyroxine Sodium [Synthroid] 175 mcg PO DAILY@59911/05/19 02/28/20 History Sodium Polystyrene Sulfonate 15 gm PO SUTUTHSA@89911/05/19 02/28/20 History Lidocaine-Prilocaine Cream [Emla 1 applic TOPICAL TUTHSA@0 11/23/19 02/28/20 History Cream 2.5%/2.5%] Furosemide [Lasix] 80 mg PO DAILY@89901/28/20 02/28/20 History LORazepam [Ativan] 1 mg PO BID@899,2099 #6 tab 02/02/20 02/28/20 Rx Aspirin 81 mg PO DAILY@0900 02/28/20 02/28/20 History Hydrocodone/Acetaminophen [Bruneau 1 tab PO Q12H PRN 02/28/20 02/28/20 History 10-325] INSULIN LISPRO (humaLOG) [humaLOG] See Protocol SQ ACHS 02/28/20 02/28/20 History Magnesium Hydroxide [Milk of 2,400 mg PO DAILY PRN 02/28/20 02/28/20 History Magnesia] Sennosides [Senna] 8.6 mg PO DAILY PRN 02/28/20 02/28/20 History Allergies Allergy/AdvReac Type Severity Reaction Status Date / Time adhesive Allergy Rash/Hives Verified 02/28/20 12:44 Penicillins Allergy Rash/Hives Verified 02/28/20 12:44 Iodinated Contrast Media AdvReac KIDNEY Verified 02/28/20 12:44 [Iodinated Contrast- Oral FAILURE and IV Dye] metformin AdvReac SUGAR Verified 02/28/20 12:44 LEVEL INCREASE Physical Exam Vitals: Vital Signs Temp Pulse Pulse Resp BP BP Pulse Ox 02/29/20 03:44 98.4 F 65 19 155/70 100 02/29/20 00:00 98.4 F 77 19 132/59 100 02/28/20 22:10 97.7 F 69 19 142/75 99 02/28/20 21:55 97.6 F 60 16 127/62 99 02/28/20 21:02 59 L 18 139/58 99 02/28/20 20:03 97.7 F 62 18 128/77 02/28/20 20:00 98.8 F 60 16 135/67 100 02/28/20 19:00 65 13 115/57 100 02/28/20 18:30 66 15 115/54 100 02/28/20 18:00 65 16 110/61 100 02/28/20 17:30 66 15 121/60 100 02/28/20 17:00 74 17 125/62 100 02/28/20 16:30 78 20 128/61 100 02/28/20 16:00 85 18 123/54 100 02/28/20 15:30 80 18 102/40 100 Intake and Output 02/29/20 02/29/20 02/29/20 06:59 14:59 22:59 Intake Total 126.130 131.873 Output Total 0 Balance 126.130 131.873 Intake: Intake, IV Titration 126.130 131.873 Amount Heparin Sod,Pork in 0.45% 118.127 131.873 NaCl 25,000 unit In 0.45 % NaCl 1 250ml.bag @ 18 UNITS/KG/HR 17.203 mls/hr IV .[id number] [facility] Rx#: [id number] Insulin Regular 100 unit 8.003 In Sodium Chloride 0.9% 100 ml @ 0.1 UNITS/KG/HR 9.653 mls/hr IV .[id number] [facility] Rx#:[id number] Output: Urine 0 Other: # Voids 0 1 # Bowel Movements 1 Weight 95.5 kg Results 02/29/20 08:39 02/29/20 08:39 Cardiac Enzymes 02/28/20 02/29/20 02/29/20 Range/Units 15:58 08:39 08:39 AST 40 H (14-36) U/L Troponin I 1.650 H* 2.750 H* (0.000-0.034) ng/mL Coagulation 02/28/20 02/29/20 Range/Units 23:15 08:39 PT 13.7 H (9.0-12.0) sec APTT >200.0 H* >200.0 H* (22.0-30.0) sec CBC 02/29/20 Range/Units 08:39 WBC 5.7 (3.8-10.6) k/uL RBC 3.45 L (3.80-5.40) m/uL Hgb 10.2 L (11.4-16.0) gm/dL Hct 33.3 L (34.0-46.0) % Plt Count 149 L (150-450) k/uL Comprehensive Metabolic Panel 02/28/20 02/29/20 Range/Units 23:15 08:39 Sodium 138 136 L (137-145) mmol/L Potassium 3.9 4.0 (3.5-5.1) mmol/L Chloride 105 102 (98-107) mmol/L Carbon Dioxide 23 23 (22-30) mmol/L BUN 29 H 32 H (7-17) mg/dL Creatinine 3.78 H 4.12 H (0.52-1.04) mg/dL Glucose 169 H 242 H (74-99) mg/dL Calcium 9.0 (8.4-10.2) mg/dL AST 40 H (14-36) U/L ALT 14 (4-34) U/L Alkaline Phosphatase 93 (38-126) U/L Total Protein 6.2 L (6.3-8.2) g/dL Albumin 2.8 L (3.5-5.0) g/dL Current Medications Generic Name Dose Route Start Last Admin Trade Name Freq PRN Reason Stop Dose Admin Acetaminophen 500 mg 02/28/20 23:37 Acetaminophen Tab 500 Mg Tab PO Q6H PRN Pain Hydrocodone Bitart/Acetaminophen 1 each 02/28/20 23:37 Hydrocodone/Apap 10-325mg 1 Each Tab PO Q12H PRN pain Aspirin 81 mg 02/29/20 09:00 02/29/20 09:30 Aspirin 81 Mg PO 81 mg DAILY@0900 [facility] Administration Atorvastatin Calcium 80 mg 02/29/20 21:00 Atorvastatin 80 Mg Tab PO HS@2099 [facility] Calcium Acetate 2,001 mg 02/29/20 08:00 02/29/20 13:00 Calcium Acetate 667 Mg Tab PO 2,001 mg AC-TID@ [facility] Administration Carvedilol 3.125 mg 02/29/20 12:20 02/29/20 12:59 Carvedilol 3.125 Mg Tab PO 3.125 mg BID-W/MEALS [facility] Administration Clopidogrel Bisulfate 75 mg 02/29/20 09:00 02/29/20 09:30 Clopidogrel 75 Mg Tab PO 75 mg DAILY@0900 [facility] Administration Docusate Sodium 100 mg 02/29/20 09:00 02/29/20 09:31 Docusate 100 Mg Cap PO 100 mg BID@0900,2100 [facility] Administration Escitalopram Oxalate 20 mg 02/29/20 09:00 02/29/20 09:31 Escitalopram 20 Mg Tab PO 20 mg DAILY@0900 [facility] Administration Furosemide 80 mg 02/29/20 09:00 02/29/20 09:31 Furosemide 80 Mg Tab PO 80 mg DAILY@0900 [facility] Administration Heparin Sodium (Porcine) 0 unit 02/28/20 17:00 Heparin Sodium,Porcine 5,000 Unit/Ml 1 Ml Vial IV PER PROTOCOL PRN Low PTT Protocol Heparin Sodium/Sodium Chloride 250 mls @ 17.203 mls/hr 02/28/20 17:00 12:59 25,000 unit/ Sodium Chloride IV 15 units/kg/hr .[id number] [facility] 14.336 mls/hr Administration Protocol 18 UNITS/KG/HR Insulin Aspart 0 unit 02/29/20 07:30 02/29/20 12:59 Insulin Aspart (Novolog) 100 Unit/Ml Vial SQ 2 unit ACHS [facility] Administration Protocol Insulin Detemir 18 unit 02/29/20 21:00 Insulin Detemir (Levemir) 100 Unit/Ml Syr SQ HS [facility] Levothyroxine Sodium 175 mcg 02/29/20 06:00 02/29/20 06:35 Levothyroxine 50 Mcg Tab PO Not Given DAILY@0600 [facility] Lidocaine/Prilocaine 1 applic 02/29/20 10:30 02/29/20 09:32 Lidocaine-Prilocaine 2.5-2.5% Cream 5 Gm Tube TOPICAL 1 applic TUTHSA@1030 [facility] Administration Multivit/Ca Carb/B Cmplx/FA/Prenat 1 each 03/01/20 21:00 Folic Acid-Vit B Complex-Vit C 1 Cap PO MOWEFR@2100 [facility] Multivit/Ca Carb/B Cmplx/FA/Prenat 1 each 02/29/20 09:00 02/29/20 09:32 Folic Acid-Vit B Complex-Vit C 1 Cap PO 1 each SUTUTHSA@0900 [facility] Administration Nitroglycerin 0.4 mg 02/28/20 23:37 Nitroglycerin Sl Tabs 0.4 Mg Tab SUBLINGUAL Q5M PRN Chest Pain Senna 8.6 mg 02/28/20 23:37 Sennosides 8.6 Mg Tab PO DAILY PRN Constipation Intake and Output 02/29/20 02/29/20 02/29/20 06:59 14:59 22:59 Intake Total 126.130 131.873 Output Total 0 Balance 126.130 131.873 Intake: Intake, IV Titration 126.130 131.873 Amount Heparin Sod,Pork in 0.45% 118.127 131.873 NaCl 25,000 unit In 0.45 % NaCl 1 250ml.bag @ 18 UNITS/KG/HR 17.203 mls/hr IV .[id number] [facility] Rx#: [id number] Insulin Regular 100 unit 8.003 In Sodium Chloride 0.9% 100 ml @ 0.1 UNITS/KG/HR 9.653 mls/hr IV .[id number] [facility] Rx#:[id number] Output: Urine 0 Other: # Voids 0 1 # Bowel Movements 1 Weight 95.5 kg 02/29/20 08:39 02/29/20 08:39
[2020-02-29 16:55] LABS: Glucose,Whole Blood 178 mg/dL (75-99)
--- NOTE | 2020-02-29 17:46 | P.CNNES ---
History of Present Illness Consult date: 02/29/20 Requesting physician: Emely Contreras Reason for Consult: Encephalopathy History of Present Illness: Patient is a 64-year-old female with history of end-stage renal disease on hemodialysis, came to the hospital by ambulance yesterday at 12:32 PM, for altered mental status present over the past 24 hours. Patient does have history of ESRD, recent diagnosis of coronavirus, hypertension, diabetes, liver disease. She is currently bedbound and resides in a care home. Patient admitted for delirium, possible DKA, pneumonia and fluid overload with pre-existing end-stage renal disease. Vital signs on arrival blood pressure 127/67, pulse rate 75, temperature 97.5. Computed tomography scan of the head showed degenerative and remote ischemic infarct in the left anterior temporal lobe, stable from previous exam. There is no acute hemorrhage or mass effect. Chest x-ray showed CHF exacerbation, as there is low lung volumes and cardiomegaly with suspected or prominent central vascular congestion. Atypical infiltrates. EKG shows wide QRS rhythm. Right bundle branch block. Left anterior fascicular block. 2-D echo showed pacer wire seen in the right ventricle and right atrium. Pacemaker. Moderate concentric LVH. Left ventricle systolic function is moderately impaired with EF between 35-40%. There is paradoxical/dyssynergic septal motion consistent with right ventricular volume overload and/or elevated right ventricular end-diastolic pressure. There is predominantly apical hypokinesis with preserved basal function which may be consistent with Takostubo's cardiomyopathy or CAD. Clinical correlation is recommended. Right ventricle is mild to moderately enlarged. Aortic valve is trileaflet and is mildly thickened. Mild aortic valve sclerosis. Moderate TR. Moderate pulmonary hypertension. Blood test shows normal WBC, hemoglobin 10.2, MCV 96.5 and platelets 149. INR is 1.4, PTT is 200, as patient is on heparin. Troponin is elevated 2.520. Sodium 136 potassium 4.0, BUN 32, creatinine 4.12. Her last hemoglobin A1c 7.1 on 02/01/2020. AST is borderline 40, ALT is 14. Vitamin B12 is 477 on 08/03/2018. TFTs normal on 09/06/2019. Patient at present appears obviously encephalopathic, does not answer is of the questions. When I asked about headache, stated "no". Patient only able to tell me her name Ethel. When I asked about the CT she lives in, states "no". She then states some words like "nothing left", "?Folium". I observed her primary physician while trying to speak to patient, she states "I don't know", "I'm not sure". Patient states "no" for chest pain. Review of Systems Please refer to HPI for minimal review of systems able to be obtained from patient. ROS unobtainable: due to mental status Past Medical History Past Medical History: Coronary Artery Disease (CAD), Chest Pain / Angina, Dementia, Diabetes Mellitus, Dialysis, Hyperlipidemia, Hypertension, Liver Di sease, Myocardial Infarction (IN), Osteoarthritis (OA), Thyroid Disorder Additional Past Medical History / Comment(s): multiple IN's x18. ischemic cardiomyopathy. 12/29/15 STRESS WNL, ALLERGIC rhinitis,IN, CARDIO-PULMONARY ARREST 07/05/14 vertigo, hypertensive nephrosclerosis, Hepatitis A,Vitamin D deficiency, constipation, hx of a cat bit, fall with broken pelvis Last Myocardial Infarction Date:: 09/2013 History of Any Multi-Drug Resistant Organisms: MRSA, VRE Date of last positivie culture/infection: 11/11/18-VRE; 09/27/17 MRSA MDRO Source:: Urine-VRE; Right Breast-MRSA Past Surgical History: Adenoidectomy, Appendectomy, Cholecystectomy, Heart Catheterization With Stent, Hysterectomy, Tonsillectomy Additional Past Surgical History / Comment(s): mary cataracts, LAP-BAND 2004, Laparoscopic cholecystectomy, FIBULA FX has metal pins in place,Left shoulder surgery, Hemodialysis Cataract bilateral with IOL, fistula and sx to" reroute it",gets dialysis fri-fri-fri. has insulin pump. no bp on left, excisional debreidment rt lower ext., foot surgery Past Anesthesia/Blood Transfusion Reactions: Motion Sickness, Postoperative Nausea & Vomiting (PONV) Additional Past Anesthesia/Blood Transfusion Reaction / Comment(s): blood transfusion-pt stated they gave her medication for a reaction but does'nt rememebr what the reaction was Date of Last Stent Placement:: 2014 Past Psychological History: Anxiety, Bipolar, Depression Smoking Status: Never smoker Past Alcohol Use History: None Reported Past Drug Use History: None Reported - Past Family History Mother Family Medical History: Congestive Heart Failure (CHF), Diabetes Mellitus, Hypertension Father History Unknown: Yes Family Medical History: Diabetes Mellitus Brother(s) Family Medical History: Diabetes Mellitus, Hyperlipidemia Additional Family Medical History / Comment(s): Hypertension chronic kidney disease Medications and Allergies Home Medications Medication Instructions Recorded Confirmed Type Atorvastatin [Lipitor] 80 mg PO HS@209912/27/16 02/28/20 History Calcium Acetate [PhosLo] 2,001 mg PO AC-TID@09/02/18 02/28/20 History Acetaminophen Tab [Tylenol] 500 mg PO Q6H PRN 01/11/19 02/28/20 History Docusate Sodium [Dok] 100 mg PO BID@899,209901/11/19 02/28/20 History Escitalopram [Lexapro] 20 mg PO DAILY@89904/02/19 02/28/20 History Folic Acid-Vit B Complex-Vit C 1 cap PO MOWEFR@209904/02/19 02/28/20 History [Nephrocaps] Folic Acid-Vit B Complex-Vit C 1 mg PO SUTUTHSA@89904/02/19 02/28/20 History [Nephrocaps] Melatonin 10 mg PO HS@209904/02/19 02/28/20 History Nitroglycerin Sl Tabs [Nitrostat] 0.4 mg SUBLINGUAL Q5M PRN tab 04/06/19 02/28/20 Rx Clopidogrel [Plavix] 75 mg PO DAILY@89904/09/19 02/28/20 History amLODIPine [Norvasc] 2.5 mg PO DAILY@89904/09/19 02/28/20 History Levothyroxine Sodium [Synthroid] 175 mcg PO DAILY@0611/05/19 02/28/20 History Sodium Polystyrene Sulfonate 15 gm PO SUTUTHSA@89911/05/19 02/28/20 History Lidocaine-Prilocaine Cream [Emla 1 applic TOPICAL TUTHSA@102911/23/19 02/28/20 History Cream 2.5%/2.5%] Furosemide [Lasix] 80 mg PO DAILY@89901/28/20 02/28/20 History LORazepam [Ativan] 1 mg PO BID@899,2099 #6 tab 02/02/20 02/28/20 Rx Aspirin 81 mg PO DAILY@0900 02/28/20 02/28/20 History Hydrocodone/Acetaminophen [[place] 1 tab PO Q12H PRN 02/28/20 02/28/20 History 10-325] INSULIN LISPRO (humaLOG) [humaLOG] See Protocol SQ ACHS 02/28/20 02/28/20 History Magnesium Hydroxide [Milk of 2,400 mg PO DAILY PRN 02/28/20 02/28/20 History Magnesia] Sennosides [Senna] 8.6 mg PO DAILY PRN 02/28/20 02/28/20 History Allergies Allergy/AdvReac Type Severity Reaction Status Date / Time adhesive Allergy Rash/Hives Verified 02/28/20 12:44 Penicillins Allergy Rash/Hives Verified 02/28/20 12:44 Iodinated Contrast Media AdvReac KIDNEY Verified 02/28/20 12:44 [Iodinated Contrast- Oral FAILURE and IV Dye] metformin AdvReac SUGAR Verified 02/28/20 12:44 LEVEL INCREASE Physical Examination - Vital Signs Vital Signs: Vital Signs Temp Pulse Pulse Resp BP BP Pulse Ox 02/29/20 14:00 72 16 02/29/20 12:00 97.2 F L 72 16 159/68 100 02/29/20 08:00 97.9 F 62 16 134/63 100 02/29/20 03:44 98.4 F 65 19 155/70 100 02/29/20 00:00 98.4 F 77 19 132/59 100 02/28/20 22:10 97.7 F 69 19 142/75 99 02/28/20 21:55 97.6 F 60 16 127/62 99 02/28/20 21:02 59 L 18 139/58 99 02/28/20 20:03 97.7 F 62 18 128/77 02/28/20 20:00 98.8 F 60 16 135/67 100 02/28/20 19:00 65 13 115/57 100 02/28/20 18:30 66 15 115/54 100 02/28/20 18:00 65 16 110/61 100 02/28/20 17:30 66 15 121/60 100 Intake and Output 02/29/20 02/29/20 02/29/20 06:59 14:59 22:59 Intake Total 126.130 131.873 Output Total 0 Balance 126.130 131.873 Intake: Intake, IV Titration 126.130 131.873 Amount Heparin Sod,Pork in 0.45% 118.127 131.873 NaCl 25,000 unit In 0.45 % NaCl 1 250ml.bag @ 18 UNITS/KG/HR 17.203 mls/hr IV .[id number] CYNTHIA Rx#: [id number] Insulin Regular 100 unit 8.003 In Sodium Chloride 0.9% 100 ml @ 0.1 UNITS/KG/HR 9.653 mls/hr IV .[id number] CYNTHIA Rx#:[id number] Output: Urine 0 Other: # Voids 0 1 # Bowel Movements 1 Weight 95.5 kg 95.5 kg On examination patient is an elderly female, who is laying in the bed, appears comfortable, but significantly encephalopathic, keeps her eyes closed. Patient sometimes opens her eyes, but then close it shut again. Gaze is midline, oculocephalics appears present. Face appears symmetric. Visual peters could not be tested. Her tongue, palate and facial sensations, shoulder shrug could not be tested. On muscle strength testing, her tone is equal bilaterally. Sensory examination revealed that patient grimaces to painful stimuli, and tries to withdraw slightly. Patient has peripheral edema. Reflexes are 1+ and plantars are upgoing bilaterally. Cerebellar functions, gait could not be tested. On general examination, there is no obvious bruit, S1 and S2 audible, abdomen is soft, she has mild peripheral edema. Some skin changes noted in the legs. Results - Laboratory Findings CBC and BMP: 02/29/20 08:39 02/29/20 08:39 Abnormal Lab Findings: Abnormal Labs 02/28/20 02/28/20 02/28/20 12:59 12:59 12:59 RBC 3.67 L Hgb Hct MCHC RDW 15.7 H Plt Count Neutrophils # 8.5 H Lymphocytes # 0.4 L PT 12.3 H INR 1.2 H APTT VBG pH VBG pCO2 VBG HCO3 Sodium 134 L Chloride 94 L Carbon Dioxide 13 L BUN 47 H Creatinine 5.94 H Glucose 443 H POC Glucose (mg/dL) Plasma Lactic Acid Dougie AST 38 H Troponin I Total Protein Albumin 3.2 L 02/28/20 02/28/20 02/28/20 12:59 12:59 13:42 RBC Hgb Hct MCHC RDW Plt Count Neutrophils # Lymphocytes # PT INR APTT VBG pH 7.42 H VBG pCO2 20 L VBG HCO3 13 L Sodium Chloride Carbon Dioxide BUN Creatinine Glucose POC Glucose (mg/dL) 439 H Plasma Lactic Acid Dougie 2.5 H* AST Troponin I Total Protein Albumin 02/28/20 02/28/20 02/28/20 15:52 15:58 16:43 RBC Hgb Hct MCHC RDW Plt Count Neutrophils # Lymphocytes # PT INR APTT VBG pH VBG pCO2 VBG HCO3 Sodium Chloride Carbon Dioxide BUN Creatinine Glucose POC Glucose (mg/dL) 395 H Plasma Lactic Acid Dougie 2.3 H* AST Troponin I 1.650 H* Total Protein Albumin 02/28/20 02/28/20 02/28/20 17:13 18:12 18:59 RBC Hgb Hct MCHC RDW Plt Count Neutrophils # Lymphocytes # PT INR APTT VBG pH VBG pCO2 VBG HCO3 Sodium Chloride Carbon Dioxide BUN Creatinine Glucose POC Glucose (mg/dL) 355 H 189 H 160 H Plasma Lactic Acid Dougie AST Troponin I Total Protein Albumin 02/28/20 02/28/20 02/28/20 20:22 21:01 21:57 RBC Hgb Hct MCHC RDW Plt Count Neutrophils # Lymphocytes # PT INR APTT VBG pH VBG pCO2 VBG HCO3 Sodium Chloride Carbon Dioxide BUN Creatinine Glucose POC Glucose (mg/dL) 140 H 159 H 141 H Plasma Lactic Acid Dougie AST Troponin I Total Protein Albumin 02/28/20 02/28/20 02/28/20 23:02 23:15 23:15 RBC Hgb Hct MCHC RDW Plt Count Neutrophils # Lymphocytes # PT 13.7 H INR 1.4 H APTT >200.0 H* VBG pH VBG pCO2 VBG HCO3 Sodium Chloride Carbon Dioxide BUN 29 H Creatinine 3.78 H Glucose 169 H POC Glucose (mg/dL) 145 H Plasma Lactic Acid Dougie AST Troponin I Total Protein Albumin 02/28/20 02/29/20 02/29/20 23:58 00:58 01:59 RBC Hgb Hct MCHC RDW Plt Count Neutrophils # Lymphocytes # PT INR APTT VBG pH VBG pCO2 VBG HCO3 Sodium Chloride Carbon Dioxide BUN Creatinine Glucose POC Glucose (mg/dL) 158 H 159 H 159 H Plasma Lactic Acid Dougie AST Troponin I Total Protein Albumin 1202/29/20 02/29/20 06:03 08:39 08:39 RBC 3.45 L Hgb 10.2 L Hct 33.3 L MCHC 30.5 L RDW 16.0 H Plt Count 149 L Neutrophils # Lymphocytes # 0.6 L PT INR APTT VBG pH VBG pCO2 VBG HCO3 Sodium 136 L Chloride Carbon Dioxide BUN 32 H Creatinine 4.12 H Glucose 242 H POC Glucose (mg/dL) 250 H Plasma Lactic Acid Dougie AST 40 H Troponin I Total Protein 6.2 L Albumin 2.8 L 02/29/20 02/29/20 02/29/20 08:39 08:39 11:50 RBC Hgb Hct MCHC RDW Plt Count Neutrophils # Lymphocytes # PT INR APTT >200.0 H* VBG pH VBG pCO2 VBG HCO3 Sodium Chloride Carbon Dioxide BUN Creatinine Glucose POC Glucose (mg/dL) 202 H Plasma Lactic Acid Dougie AST Troponin I 2.750 H* Total Protein Albumin 02/29/20 02/29/20 15:48 16:53 RBC Hgb Hct MCHC RDW Plt Count Neutrophils # Lymphocytes # PT INR APTT VBG pH VBG pCO2 VBG HCO3 Sodium Chloride Carbon Dioxide BUN Creatinine Glucose POC Glucose (mg/dL) 178 H Plasma Lactic Acid Dougie AST Troponin I 2.520 H* Total Protein Albumin Assessment and Plan Assessment: * Altered mental status, likely due to toxic metabolic encephalopathy, due to reasons mentioned below. * Patient has acute COVID-19 pneumonia * DKA * End-stage renal disease on hemodialysis * Elevated cardiac enzymes, on heparin. * History of sick sinus syndrome, status post dual-chamber pacemaker * Diabetes * Hypertension * Hypothyroidism, * Arthritis Plan: * EEG was performed today, which revealed background slowing of moderate degree, consistent with toxic metabolic encephalopathy. No definitive epileptiform activity was seen. * Patient's encephalopathy will improve hopefully with improvement in underlying metabolic/infectious conditions. * We will follow patient clinically. * Medical management as per IM/pulmonary.
--- NOTE | 2020-02-29 18:41 | EEG ---
ELECTROENCEPHALOGRAM REPORT DATE OF SERVICE: 02/29/2020. PREAMBLE: This is a 64-year-old female with end-stage renal disease, on hemodialysis, who recently had COVID pneumonia, came with altered mental status. Patient has DKA. This study is performed to evaluate for any epileptiform activity. EEG FINDINGS: This is a 21-channel limited EEG recording utilizing COVID protocol. Standard referential and bipolar montages were used. Background consists of well-developed, poorly regulated, mixed frequencies of moderate amplitude 4-6 hertz theta mixed with some low amplitude 1-2 hertz generalized delta activity seen in bihemispheric regions. Background does not seem to be reactive to eye opening or closing. Photic stimulation was not performed. Some spike-like activity was noted intermittently which appears artifactual in nature. No definitive focal or generalized epileptiform activity was seen. Different stages of sleep were not seen. IMPRESSION: This is an abnormal EEG due to background slowing of at least moderate degree. This is suggestive of generalized cerebral dysfunction as can be seen with toxic metabolic encephalopathies or due to diffuse structural brain abnormality. No definitive epileptiform activity was seen. MMODL / IJN: [id number] /
[2020-02-29 20:07] LABS: Glucose,Whole Blood 171 mg/dL (75-99)
[2020-02-29] MEDS ORDERED: INSULIN DETEMIR (LEVEMIR) 100 UNIT/ML SYR SQ SCH (21:00)
[2020-02-29] MEDS: ATORVASTATIN 80 MG TAB PO SCH (21:37)
--- NOTE | 2020-03-01 01:50 | P.HPIM ---
History of Present Illness H&P Date: 02/29/20 Chief Complaint: Metabolic encephalopathy This is a 64-year-old obese female patient of paty, Dr. JAE Jc, and Dr. Talley with multiple medical problem was known to have end-stage kidney disease on hemodialysis Friday, coronary artery disease and p rior coronary artery stenting, diabetes type 2 insulin requiring, dyslipidemia, history of permanent pacemaker. Patient is a long-term resident at [facility] developed to have COVID-19 during an outbreak that affected [facility] on [facility] and she was sent to [facility] for evaluation and treatment and she eventually was sent back to [facility] on the [place] however she became very weak and has not gotten back to her baseline , she was sent to her HD and she has nt been eating or drinking with severe change in mental status, she was directed to go to the ER at [facility] where she was found to have DKA and slight elevation in her Troponn-I suggestive of NSTEMI, she was initially started on insulin drip and her gap since was closed and she was transitioned to her Lantus and SSI, she was seeen in consultation by cardiology , Nephrology and Neurology and she was admitted to the hospital for treatment. Review of Systems Constitutional: Reports anorexia, Reports chronic pain, Reports fatigue, Reports lethargy, Reports malaise, Reports weakness, Reports weight loss Eyes: denies blurred vision, denies bulging eye, denies decreased vision Cardiovascular: Reports decreased exercise tolerance, Reports dyspnea on exertion, Reports shortness of breath, Denies chest pain, Denies light headedness, Denies rapid heart beat, Denies syncope Respiratory: Reports sleep apnea, Denies congestion, Denies cough, Denies cough with sputum, Denies home oxygen, Denies snoring, Denies wheezing Gastrointestinal: Reports abdominal pain, Reports loss of appetite, Reports nausea, Denies belching, Denies bloating, Denies BRBPR, Denies change in bowel habits, Denies heartburn, Denies melena, Denies vomiting Genitourinary: Denies dysuria, Denies nocturia Menstruation: Reports postmenopausal Musculoskeletal: Reports atrophy, Reports fractures, Reports frequent falls, Reports gait dysfunction, Reports low back pain, Reports morning stiffness Musculoskeletal: absent: ankle pain, ankle stiffness, ankle swelling, elbow pain, elbow stiffness, elbow swelling, foot pain, foot stiffness, foot swelling, hand pain, hand stiffness, hand swelling, hip pain, hip stiffness, hip swelling, knee pain, knee stiffness, knee swelling, shoulder pain, shoulder stiffness, shoulder swelling, wrist pain, wrist stiffness, wrist swelling Integumentary: Denies pruritus, Denies rash Neurological: Reports burning pain, Reports change in speech, Reports confusion, Reports numbness, Reports sensory deficit, Reports weakness Psychiatric: Reports anxiety, Reports confusion, Reports depression, Denies sadness/tearfulness, Denies sleep disturbances, Denies suicidal ideation Endocrine: Reports fatigue, Reports nocturia Past Medical History Past Medical History: Coronary Artery Disease (CAD), Chest Pain / Angina, Dementia, Diabetes Mellitus, Dialysis, Hyperlipidemia, Hypertension, Liver Disease, Myocardial Infarction (ME), Osteoarthritis (OA), Thyroid Disorder Additional Past Medical History / Comment(s): multiple ME's x18. ischemic cardiomyopathy. 12/29/15 STRESS WNL, ALLERGIC rhinitis,ME, CARDIO-PULMONARY ARREST 07/05/14 vertigo, hypertensive nephrosclerosis, Hepatitis A,Vitamin D deficiency, constipation, hx of a cat bit, fall with broken pelvis Last Myocardial Infarction Date:: 09/2013 History of Any Multi-Drug Resistant Organisms: MRSA, VRE Date of last positivie culture/infection: 11/11/18-VRE; 09/27/17 MRSA MDRO Source:: Urine-VRE; Right Breast-MRSA Past Surgical History: Adenoidectomy, Appendectomy, Cholecystectomy, Heart Catheterization With Stent, Hysterectomy, Tonsillectomy Additional Past Surgical History / Comment(s): mary cataracts, LAP-BAND 2004, Laparoscopic cholecystectomy, FIBULA FX has metal pins in place,Left shoulder surgery, Hemodialysis Cataract bilateral with IOL, fistula and sx to" reroute it",gets dialysis fri-fri-fri. has insulin pump. no bp on left, excisional debreidment rt lower ext., foot surgery Past Anesthesia/Blood Transfusion Reactions: Motion Sickness, Postoperative Marky sea & Vomiting (PONV) Additional Past Anesthesia/Blood Transfusion Reaction / Comment(s): blood transfusion-pt stated they gave her medication for a reaction but does'nt remem ebr what the reaction was Date of Last Stent Placement:: 2014 Past Psychological History: Anxiety, Bipolar, Depression Smoking Status: Never smoker Past Alcohol Use History: None Reported Past Drug Use History: None Reported - Past Family History Mother Family Medical History: Congestive Heart Failure (CHF), Diabetes Mellitus, Hypertension Father History Unknown: Yes Family Medical History: Diabetes Mellitus Brother(s) Family Medical History: Diabetes Mellitus, Hyperlipidemia Additional Family Medical History / Comment(s): Hypertension chronic kidney disease Medications and Allergies Home Medications Medication Instructions Recorded Confirmed Type Atorvastatin [Lipitor] 80 mg PO HS@209912/27/16 02/28/20 History Calcium Acetate [PhosLo] 2,001 mg PO AC-TID@09/02/18 02/28/20 History Acetaminophen Tab [Tylenol] 500 mg PO Q6H PRN 01/11/19 02/28/20 History Docusate Sodium [Dok] 100 mg PO BID@899,209901/11/19 02/28/20 History Escitalopram [Lexapro] 20 mg PO DAILY@89904/02/19 02/28/20 History Folic Acid-Vit B Complex-Vit C 1 cap PO MOWEFR@209904/02/19 02/28/20 History [Nephrocaps] Folic Acid-Vit B Complex-Vit C 1 mg PO SUTUTHSA@89904/02/19 02/28/20 History [Nephrocaps] Melatonin 10 mg PO HS@209904/02/19 02/28/20 History Nitroglycerin Sl Tabs [Nitrostat] 0.4 mg SUBLINGUAL Q5M PRN tab 04/06/19 Rx Clopidogrel [Plavix] 75 mg PO DAILY@89904/09/19 02/28/20 History amLODIPine [Norvasc] 2.5 mg PO DAILY@89904/09/19 02/28/20 History Levothyroxine Sodium [Synthroid] 175 mcg PO DAILY@59911/05/19 02/28/20 History Sodium Polystyrene Sulfonate 15 gm PO SUTUTHSA@89911/05/19 02/28/20 History Lidocaine-Prilocaine Cream [Emla 1 applic TOPICAL TUTHSA@1030 11/23/19 02/28/20 History Cream 2.5%/2.5%] Furosemide [Lasix] 80 mg PO DAILY@89901/28/20 02/28/20 History LORazepam [Ativan] 1 mg PO BID@0900,2100 #6 tab 02/02/20 02/28/20 Rx Aspirin 81 mg PO DAILY@0900 02/28/20 02/28/20 History Hydrocodone/Acetaminophen [[place] 1 tab PO Q12H PRN 02/28/20 02/28/20 History 10-325] INSULIN LISPRO (humaLOG) [humaLOG] See Protocol SQ ACHS 02/28/20 02/28/20 History Magnesium Hydroxide [Milk of 2,400 mg PO DAILY PRN 02/28/20 02/28/20 History Magnesia] Sennosides [Senna] 8.6 mg PO DAILY PRN 02/28/20 02/28/20 History Allergies Allergy/AdvReac Type Severity Reaction Status Date / Time adhesive Allergy Rash/Hives Verified 02/28/20 12:44 Penicillins Allergy Rash/Hives Verified 02/28/20 12:44 Iodinated Contrast Media AdvReac KIDNEY Verified 02/28/20 12:44 [Iodinated Contrast- Oral FAILURE and IV Dye] metformin AdvReac SUGAR Verified 02/28/20 12:44 LEVEL INCREASE Physical Exam Vitals: Vital Signs Temp Pulse Pulse Resp BP BP Pulse Ox 02/28/20 21:55 97.6 F 60 16 127/62 99 02/28/20 21:02 59 L 18 139/58 99 02/28/20 20:03 97.7 F 62 18 128/77 02/28/20 20:00 98.8 F 60 16 135/67 100 02/28/20 19:00 65 13 115/57 100 02/28/20 18:30 66 15 115/54 100 02/28/20 18:00 65 16 110/61 100 02/28/20 17:30 66 15 121/60 100 02/28/20 17:00 74 17 125/62 100 02/28/20 16:30 78 20 128/61 100 02/28/20 16:00 85 18 123/54 100 02/28/20 15:30 80 18 102/40 100 02/28/20 15:00 74 16 106/47 100 02/28/20 14:30 69 17 107/44 100 02/28/20 13:30 124/56 02/28/20 13:00 74 16 127/64 100 02/28/20 12:35 97.5 F L 75 20 127/67 100 Intake and Output 02/28/20 02/28/20 02/29/20 14:59 22:59 06:59 Intake Total 72.045 4.22 Output Total 2500 Balance -2427.955 4.22 Intake: Intake, IV Titration 72.045 4.22 Amount Insulin Regular 100 unit 72.045 4.22 In Sodium Chloride 0.9% 100 ml @ 0.1 UNITS/KG/HR 9.653 mls/hr IV .[id number] [facility] Rx#:[id number] Output: Hemodialysis 2500 Other: # Voids 1 Weight 95.572 kg Physical examination: General: 64-year-old female who is laying down in bed appears to be very weak does not appear to be in acute distress at this point in time. HEENT: Head is atraumatic, normocephalic, pupils were equal round reactive to light and recommendation, extraocular muscle movement were intact, sclera nonicteric, conjunctivae were pale, mucous membranes of the mouth are somewhat dry. Neck: Supple, no JVP, decreased carotid upstroke bilaterally, no lymphaden opathy. Chest: Decreased breath sounds at the bases, few rhonchi, no extremity wheezes, no chest wall tenderness, no intercostal retractions. Heart: First heart sound is depressed, second heart sounds normal, there is systolic ejection murmur 2/6 located in the left sternal border. Abdomen: Soft, nontender, nondistended, positive bowel sounds. Extremities: There is no edema no calf tenderness DP +1 bilaterally. Neurologic examination: Patient is awake alert and oriented 2, cranial nerves I II-12 appear grossly intact, muscle power were 4 out of 5 in upper extremities and 3 out of 5 in bilateral lower extremities, deep tendon reflexes were depressed bilaterally, there is also neuropathic changes to both lower extremity with decreased sensation. Results CBC & Chem 7: 02/29/20 08:39 02/29/20 08:39 Labs: Abnormal Lab Results - Last 24 Hours (Table) 02/28/20 02/28/20 02/28/20 Range/Units 12:59 12:59 12:59 RBC 3.67 L (3.80-5.40) m/uL RDW 15.7 H (11.5-15.5) % Neutrophils # 8.5 H (1.3-7.7) k/uL Lymphocytes # 0.4 L (1.0-4.8) k/uL PT 12.3 H (9.0-12.0) sec INR 1.2 H (<1.2) VBG pH (7.31-7.41) VBG pCO2 (37-51) mmHg VBG HCO3 (24-28) mmol/L Sodium 134 L (137-145) mmol/L Chloride 94 L (98-107) mmol/L Carbon Dioxide 13 L (22-30) mmol/L BUN 47 H (7-17) mg/dL Creatinine 5.94 H (0.52-1.04) mg/dL Glucose 443 H (74-99) mg/dL POC Glucose (mg/dL) (75-99) mg/dL Plasma Lactic Acid Dougie (0.7-2.0) mmol/L AST 38 H (14-36) U/L Troponin I (0.000-0.034) ng/mL Albumin 3.2 L (3.5-5.0) g/dL 02/28/20 02/28/20 02/28/20 Range/Units 12:59 12:59 13:42 RBC (3.80-5.40) m/uL RDW (11.5-15.5) % Neutrophils # (1.3-7.7) k/uL Lymphocytes # (1.0-4.8) k/uL PT (9.0-12.0) sec INR (<1.2) VBG pH 7.42 H (7.31-7.41) VBG pCO2 20 L (37-51) mmHg VBG HCO3 13 L (24-28) mmol/L Sodium (137-145) mmol/L Chloride (98-107) mmol/L Carbon Dioxide (22-30) mmol/L BUN (7-17) mg/dL Creatinine (0.52-1.04) mg/dL Glucose (74-99) mg/dL POC Glucose (mg/dL) 439 H (75-99) mg/dL Plasma Lactic Acid Dougie 2.5 H* (0.7-2.0) mmol/L AST (14-36) U/L Troponin I (0.000-0.034) ng/mL Albumin (3.5-5.0) g/dL 12/14/20 12/14/20 12/14/20 Range/Units 15:52 15:58 16:43 RBC (3.80-5.40) m/uL RDW (11.5-15.5) % Neutrophils # (1.3-7.7) k/uL Lymphocytes # (1.0-4.8) k/uL PT (9.0-12.0) sec INR (<1.2) VBG pH (7.31-7.41) VBG pCO2 (37-51) mmHg VBG HCO3 (24-28) mmol/L Sodium (137-145) mmol/L Chloride (98-107) mmol/L Carbon Dioxide (22-30) mmol/L BUN (7-17) mg/dL Creatinine (0.52-1.04) mg/dL Glucose (74-99) mg/dL POC Glucose (mg/dL) 395 H (75-99) mg/dL Plasma Lactic Acid Dougie 2.3 H* (0.7-2.0) mmol/L AST (14-36) U/L Troponin I 1.650 H* (0.000-0.034) ng/mL Albumin (3.5-5.0) g/dL 02/28/20 02/28/20 02/28/20 Range/Units 17:13 18:12 18:59 RBC (3.80-5.40) m/uL RDW (11.5-15.5) % Neutrophils # (1.3-7.7) k/uL Lymphocytes # (1.0-4.8) k/uL PT (9.0-12.0) sec INR (<1.2) VBG pH (7.31-7.41) VBG pCO2 (37-51) mmHg VBG HCO3 (24-28) mmol/L Sodium (137-145) mmol/L Chloride (98-107) mmol/L Carbon Dioxide (22-30) mmol/L BUN (7-17) mg/dL Creatinine (0.52-1.04) mg/dL Glucose (74-99) mg/dL POC Glucose (mg/dL) 355 H 189 H 160 H (75-99) mg/dL Plasma Lactic Acid Dougie (0.7-2.0) mmol/L AST (14-36) U/L Troponin I (0.000-0.034) ng/mL Albumin (3.5-5.0) g/dL 02/28/20 02/28/20 02/28/20 Range/Units 20:22 21:01 21:57 RBC (3.80-5.40) m/uL RDW (11.5-15.5) % Neutrophils # (1.3-7.7) k/uL Lymphocytes # (1.0-4.8) k/uL PT (9.0-12.0) sec INR (<1.2) VBG pH (7.31-7.41) VBG pCO2 (37-51) mmHg VBG HCO3 (24-28) mmol/L Sodium (137-145) mmol/L Chloride (98-107) mmol/L Carbon Dioxide (22-30) mmol/L BUN (7-17) mg/dL Creatinine (0.52-1.04) mg/dL Glucose (74-99) mg/dL POC Glucose (mg/dL) 140 H 159 H 141 H (75-99) mg/dL Plasma Lactic Acid Dougie (0.7-2.0) mmol/L AST (14-36) U/L Troponin I (0.000-0.034) ng/mL Albumin (3.5-5.0) g/dL 02/28/20 Range/Units 23:02 RBC (3.80-5.40) m/uL RDW (11.5-15.5) % Neutrophils # (1.3-7.7) k/uL Lymphocytes # (1.0-4.8) k/uL PT (9.0-12.0) sec INR (<1.2) VBG pH (7.31-7.41) VBG pCO2 (37-51) mmHg VBG HCO3 (24-28) mmol/L Sodium (137-145) mmol/L Chloride (98-107) mmol/L Carbon Dioxide (22-30) mmol/L BUN (7-17) mg/dL Creatinine (0.52-1.04) mg/dL Glucose (74-99) mg/dL POC Glucose (mg/dL) 145 H (75-99) mg/dL Plasma Lactic Acid Dougie (0.7-2.0) mmol/L AST (14-36) U/L Troponin I (0.000-0.034) ng/mL Albumin (3.5-5.0) g/dL Thrombosis Risk Factor Assmnt - DVT/VTE Prophylaxis DVT/VTE Prophylaxis: Pharmacologic Prophylaxis ordered, Mechanical Prophylaxis ordered Assessment and Plan Assessment: 1. Severe metabolic enecephalopathy due to COVID-19 , DKA and NSTEMI. we will transition from insulin drip into her regimen of Levemir and SSI, we will continue with heparin drip and cardiology evaluation and we will continue with ASA 81 mg orally daily, Plavix 75 mg orally daily and we will add small dose of Coreg 3.125 mg po bid, we will check Echocardiogram for evaluation of LVF, we will continue with Lipitor 80 mg orally daily and we will continue with conservative treatment at this point as the patient has multiple comorbid conditions and she will be best served with conservative approach. 2. NSTEMI. we will continue with ASA 81 mg orally daily, PLavix 75 mg orally daily and Lipitor 80 mg orally daily and add small dose of Coreg 3.125 mg orally bid, cardiology evaluation. 3. DKA. we will transition from insulin drip into Levemir and SSI, her gap is closed and patient does not have any acidosis. 4. End-stage renal disease on hemodialysis Friday. Nephrology consult appreciated Continue Amandeep Mendez. 5. History of coronary artery disease with prior stenting of the LAD. We will continue the patient on aspirin 81 mg once every day, Plavix 75 mg orally once every day, Lipitor 80 mg once every day, added Coreg 3.125 mg orally bid. 6. Hyponatremia likely related to hypovolemia post hemodialysis yesterday. Monitor the patient CMP. 7. Anemia of chronic kidney disease. We will check the patient's iron and ferritin level along with total iron-binding capacity. 8. Hypertension and hypertensive cardiovascular disease. Continue amlodipine2.5 mg daily and add Coreg 3.125 mg orally bid. 9. Hyperlipidemia. Continue atorvastatin 80 mg at bedtime 10. Gastroesophageal reflux disease and GI prophylaxis. we will continue with Protonix 40 mg orally daily. 11. Diabetes mellitus type 2, insulin requiring. We will continue Levemir 18 units at bedtime along with the Humalog per sliding scale insulin. 12. Generalized anxiety disorder and recurrent depression. Continue Lexapro 20 mg orally once every day as well as Ativan 1 mg orally twice every day. 13. Hypothyroidism. Continue patient on levothyroxine 175 g orally once every day. 14. History of some symptomatic bradycardia status post permanent pacemaker placement. Stable. 15. DVT prophylaxis. Start the patient on heparin drip. 16. GI prophylaxis. we will contiue with Protonix 40 mg orally daily. 17. Medical debility. Physical therapy evaluation. 18. 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 19. Patient is full code. 20. Admit to inpatient. Estimated length of stay 2 midnights.
[2020-03-01 05:54] LABS: RBC 3.74 m/uL (3.80-5.40); WBC 5.5 k/uL (3.8-10.6)
[2020-03-01 05:55] LABS: Basophils % (A) 0 %; Eosinophils # (A) 0.1 k/uL (0-0.7); Eosinophils % (A) 1 %; HCT 35.7 % (34.0-46.0); HGB 11.4 gm/dL (11.4-16.0); Hypochromasia Slight; Lymphocytes # (A) 0.6 k/uL (1.0-4.8); Lymphocytes % (A) 11 %; MCH 30.5 pg (25.0-35.0); MCHC 31.9 g/dL (31.0-37.0); MCV 95.5 fL (80.0-100.0); Mean Platelet Volume 9.2; Monocytes # (A) 0.4 k/uL (0-1.0); Monocytes % (A) 7 %; Neutrophils # (A) 4.3 k/uL (1.3-7.7); Neutrophils % (A) 78 %; Platelet Count 159 k/uL (150-450); RDW 15.8 % (11.5-15.5)
[2020-03-01 06:19] LABS: Glucose,Whole Blood 87 mg/dL (75-99)
[2020-03-01] MEDS: INSULIN ASPART (NovoLOG) 100 UNIT/ML VIAL SQ SCH ×4 (06:20→20:32)
[2020-03-01 06:22] LABS: Albumin 2.9 g/dL (3.5-5.0); Calcium 9.3 mg/dL (8.4-10.2); Phosphorus 2.6 mg/dL (2.5-4.5); Total Bilirubin 1.2 mg/dL (0.2-1.3); Total Protein 6.4 g/dL (6.3-8.2)
[2020-03-01] MEDS: LEVOTHYROXINE 50 MCG TAB PO SCH (06:28)
[2020-03-01] MEDS: carvediloL 3.125 MG TAB PO SCH ×2 (06:28→17:11)
[2020-03-01] MEDS: ASPIRIN 81 MG PO SCH (08:32)
[2020-03-01] MEDS: CLOPIDOGREL 75 MG TAB PO SCH (08:32)
[2020-03-01] MEDS: ESCITALOPRAM 20 MG TAB PO SCH (08:32)
[2020-03-01] MEDS: CALCIUM ACETATE 667 MG TAB PO SCH ×3 (08:32→17:11)
[2020-03-01] MEDS: DOCUSATE 100 MG CAP PO SCH ×2 (08:32→20:36)
[2020-03-01] MEDS: FUROSEMIDE 80 MG TAB PO SCH (08:40)
--- NOTE | 2020-03-01 10:46 | P.PN ---
Subjective Patient is seen in follow-up for incisional disease. She is maintained on hemodialysis on Friday schedule. Tolerating dialysis well. More awake and alert today. Blood pressure controlled. She is not requiring any oxygen support. No active complaints. Vital signs are stable. General: The patient appeared well nourished and normally developed. HEENT: Head exam is unremarkable. Neck is without jugular venous distension. LUNGS: Breath sounds decreased. HEART: Rate and Rhythm are regular. ABDOMEN: Soft, nontender. EXTREMITITES: 1+ edema. Objective - Vital Signs Vital signs: Vital Signs Temp 98.1 F 03/01/20 08:29 Pulse 60 03/01/20 08:29 Resp 18 03/01/20 08:29 BP 129/67 03/01/20 08:29 Pulse Ox 100 03/01/20 08:29 Intake & Output 02/29/20 03/01/20 03/01/20 18:59 06:59 18:59 Intake Total 131.873 171.024 Output Total 0 0 Balance 131.873 171.024 0 Weight 95.5 kg 95.5 kg Intake: Intake, IV Titration 131.873 171.024 Amount Heparin Sod,Pork in 0.45% 131.873 171.024 NaCl 25,000 unit In 0.45 % NaCl 1 250ml.bag @ 18 UNITS/KG/HR 17.203 mls/hr IV .[id number] [facility] Rx#: [id number] Output: Urine 0 0 Stool 0 Other: # Voids 1 0 0 # Bowel Movements 1 0 - Labs CBC & Chem 7: 03/01/20 05:25 03/01/20 05:25 Labs: Abnormal Lab Results - Last 24 Hours (Table) 02/29/20 02/29/20 02/29/20 Range/Units 11:50 15:48 16:53 RBC (3.80-5.40) m/uL RDW (11.5-15.5) % Lymphocytes # (1.0-4.8) k/uL APTT (22.0-30.0) sec Sodium (137-145) mmol/L BUN (7-17) mg/dL Creatinine (0.52-1.04) mg/dL POC Glucose (mg/dL) 202 H 178 H (75-99) mg/dL AST (14-36) U/L Troponin I 2.520 H* (0.000-0.034) ng/mL Albumin (3.5-5.0) g/dL 02/29/20 02/29/20 02/29/20 Range/Units 18:40 18:40 20:05 RBC (3.80-5.40) m/uL RDW (11.5-15.5) % Lymphocytes # (1.0-4.8) k/uL APTT 183.0 H* (22.0-30.0) sec Sodium (137-145) mmol/L BUN (7-17) mg/dL Creatinine (0.52-1.04) mg/dL POC Glucose (mg/dL) 171 H (75-99) mg/dL AST (14-36) U/L Troponin I 2.540 H* (0.000-0.034) ng/mL Albumin (3.5-5.0) g/dL 03/01/20 03/01/20 03/01/20 Range/Units 05:25 05:25 05:25 RBC 3.74 L (3.80-5.40) m/uL RDW 15.8 H (11.5-15.5) % Lymphocytes # 0.6 L (1.0-4.8) k/uL APTT 90.6 H (22.0-30.0) sec Sodium 135 L (137-145) mmol/L BUN 41 H (7-17) mg/dL Creatinine 4.92 H (0.52-1.04) mg/dL POC Glucose (mg/dL) (75-99) mg/dL AST 38 H (14-36) U/L Troponin I (0.000-0.034) ng/mL Albumin 2.9 L (3.5-5.0) g/dL Microbiology - Last 24 Hours (Table) 02/28/20 12:59 Blood Culture - Preliminary Blood No Growth after 24 hours Assessment and Plan Plan: Assessment: 1. End-stage renal disease maintained on hemodialysis on Friday schedule. 2. DKA status post insulin drip. Blood sugars controlled. 3. Recent Covid 19 infection. 4. Hypertension with chronic kidney disease. Stable. 5. Chronic kidney disease mineral bone disease maintained on PhosLo. Phosphorus normal. 6. Encephalopathy. ?related to DKA. 7. Chronic systolic CHF with ejection fraction of 35-40% with moderate tricuspi d regurgitation and pulmonary hypertension. Plan: Currently seen was undergoing hemodialysis. Next treatment on Friday.
[2020-03-01 12:04] LABS: Glucose,Whole Blood 59 mg/dL (75-99)
[2020-03-01 12:23] LABS: Glucose,Whole Blood 64 mg/dL (75-99)
[2020-03-01 12:40] LABS: Glucose,Whole Blood 104 mg/dL (75-99)
[2020-03-01] MEDS: HEPARIN SOD,PORK IN 0.45% NACL 25,000 UNIT in 0.45% NACL 1 250ML.BAG IV SCH (12:53)
--- NOTE | 2020-03-01 16:15 | P.PN ---
Subjective Progress Note Date: 03/01/20 CHIEF COMPLAINT: Elevated troponin HISTORY OF PRESENT ILLNESS: Patient examined at the bedside. Patient denies chest pain or pressure. She denies shortness of breath. Patient's pacemaker was interrogated this morning by the device rep. Patient has been having episodes of atrial fibrillation since October per device interrogation. PHYSICAL EXAM: VITAL SIGNS: Reviewed. GENERAL: Well-developed in no acute distress. HEENT: Head is normocephalic. Pupils are equal, round. Sclerae anicteric. Mucous membranes of the mouth are moist. Neck supple. No JVD or thyromegaly LUNGS: Respirations even and unlabored. Lungs diminished. HEART: Regular rate and rhythm. S1 and S2 heard. EXTREMITIES: Normal range of motion. No clubbing or cyanosis. Peripheral pulses intact. Trace bilateral lower extremity edema ASSESSMENT: Altered mental status Coronary artery disease with previous multivessel PCI Abnormal troponins History of sick sinus syndrome, s/p dual chamber pacemaker Hypertension Hyperlipidemia End-stage renal disease Recent Covid 19 Paroxysmal atrial fibrillation, since October 2019 per pacemaker interrogation PLAN: Begin Coumadin Continue IV heparin until INR is 2.0 Further recommendations pending patient course Nurse practitioner note has been reviewed by physician. Signing provider agrees with the documented findings, assessment, and plan of care. Objective - Vital Signs Vital signs: Vital Signs Temp 97.7 F 03/01/20 16:00 Pulse 60 03/01/20 16:00 Resp 18 03/01/20 16:00 BP 136/61 03/01/20 16:00 Pulse Ox 99 03/01/20 16:00 Intake & Output 02/29/20 03/01/20 03/01/20 18:59 06:59 18:59 Intake Total 131.873 171.024 583.916 Output Total 0 0 Balance 131.873 171.024 583.916 Weight 95.5 kg 95.5 kg Intake: Intake, IV Titration 131.873 171.024 43.916 Amount Heparin Sod,Pork in 0.45% 131.873 171.024 43.916 NaCl 25,000 unit In 0.45 % NaCl 1 250ml.bag @ 18 UNITS/KG/HR 17.203 mls/hr IV .[id number] [facility] Rx#: [id number] Oral 540 Output: Urine 0 0 Stool 0 Other: # Voids 1 0 0 # Bowel Movements 1 1 - Labs CBC & Chem 7: 03/01/20 05:25 03/01/20 05:25 Labs: Abnormal Lab Results - Last 24 Hours (Table) 02/29/20 02/29/20 02/29/20 Range/Units 15:48 16:53 18:40 RBC (3.80-5.40) m/uL RDW (11.5-15.5) % Lymphocytes # (1.0-4.8) k/uL APTT (22.0-30.0) sec Sodium (137-145) mmol/L BUN (7-17) mg/dL Creatinine (0.52-1.04) mg/dL POC Glucose (mg/dL) 178 H (75-99) mg/dL AST (14-36) U/L Troponin I 2.520 H* 2.540 H* (0.000-0.034) ng/mL Albumin (3.5-5.0) g/dL 02/29/20 02/29/20 03/01/20 Range/Units 18:40 20:05 05:25 RBC 3.74 L (3.80-5.40) m/uL RDW 15.8 H (11.5-15.5) % Lymphocytes # 0.6 L (1.0-4.8) k/uL APTT 183.0 H* (22.0-30.0) sec Sodium (137-145) mmol/L BUN (7-17) mg/dL Creatinine (0.52-1.04) mg/dL POC Glucose (mg/dL) 171 H (75-99) mg/dL AST (14-36) U/L Troponin I (0.000-0.034) ng/mL Albumin (3.5-5.0) g/dL 03/01/20 03/01/20 03/01/20 Range/Units 05:25 05:25 11:46 RBC (3.80-5.40) m/uL RDW (11.5-15.5) % Lymphocytes # (1.0-4.8) k/uL APTT 90.6 H 73.7 H (22.0-30.0) sec Sodium 135 L (137-145) mmol/L BUN 41 H (7-17) mg/dL Creatinine 4.92 H (0.52-1.04) mg/dL POC Glucose (mg/dL) (75-99) mg/dL AST 38 H (14-36) U/L Troponin I (0.000-0.034) ng/mL Albumin 2.9 L (3.5-5.0) g/dL 03/01/20 03/01/20 03/01/20 Range/Units 12:00 12:21 12:38 RBC (3.80-5.40) m/uL RDW (11.5-15.5) % Lymphocytes # (1.0-4.8) k/uL APTT (22.0-30.0) sec Sodium (137-145) mmol/L BUN (7-17) mg/dL Creatinine (0.52-1.04) mg/dL POC Glucose (mg/dL) 59 L 64 L 104 H (75-99) mg/dL AST (14-36) U/L Troponin I (0.000-0.034) ng/mL Albumin (3.5-5.0) g/dL Microbiology - Last 24 Hours (Table) 02/28/20 12:59 Blood Culture - Preliminary Blood No Growth after 48 hours
--- NOTE | 2020-03-01 16:25 | P.PN ---
Subjective Progress Note Date: 03/01/20 This is a 64-year-old obese female patient of paty, Dr. JAE Jc, and Dr. Talley with multiple medical problem was known to have end-stage kidney disease on hemodialysis Friday, coronary artery disease and prior coronary artery stenting, diabetes type 2 insulin requiring, dyslipidemia, history of permanent pacemaker. Patient is a long-term resident at [facility] developed to have COVID-19 during an outbreak that affected [facility] on [facility] and she was sent to [facility] for evaluation and treatment and she eventually was sent back to [facility] on the [place] however she became very weak and has not gotten back to her baseline , she was sent to her HD and she has nt been eating or drinking with severe change in mental status, she was directed to go to the ER at [facility] where she was found to have DKA and slight elevation in her Troponn-I suggestive of NSTEMI, she was initially started on insulin drip and her gap since was closed and she was transitioned to her Lantus and SSI, she was seeen in consultation by cardiology , Nephrology and Neurology and she was admitted to the hospital for treatment. 03/01: Patient is more awake and alert today. She is undergoing hemodialysis today. Patient has been followed by cardiology and pacemaker was interrogated finding frequent episodes of atrial fibrillation. Patient is on heparin drip and started on Coumadin by cardiology. Echocardiogram reveals EF of 35-40%, moderate concentric left ventricular hypertrophy, mild aortic valve sclerosis, mild mitral regurgitation, moderate tricuspid regurgitation, moderate pulmonary hypertension. EEG is abnormal with slowing consistent with toxic metabolic encephalopathy due to diffuse structural brain abnormality. No epileptiform activity. Patient is not requiring oxygen. Pulse ox 99% on room air, afebrile, heart rate 60 and blood pressure 136/61. Hemoglobin 11.4. Sodium 135, potassium 4.0. BUN 41 and creatinine 4.92. Patient's hypoglycemia today at lunch with blood sugar of 59. Levemir decreased to 16 units at bedtime. Objective - Vital Signs Vital signs: Vital Signs Temp 97.8 F 03/01/20 11:50 Pulse 60 03/01/20 11:50 Resp 18 03/01/20 11:50 BP 133/70 03/01/20 11:50 Pulse Ox 100 03/01/20 11:50 Intake & Output 02/29/20 03/01/20 03/01/20 18:59 06:59 18:59 Intake Total 131.873 171.024 583.916 Output Total 0 0 Balance 131.873 171.024 583.916 Weight 95.5 kg 95.5 kg Intake: Intake, IV Titration 131.873 171.024 43.916 Amount Heparin Sod,Pork in 0.45% 131.873 171.024 43.916 NaCl 25,000 unit In 0.45 % NaCl 1 250ml.bag @ 18 UNITS/KG/HR 17.203 mls/hr IV .[id number] [facility] Rx#: [id number] Oral 540 Output: Urine 0 0 Stool 0 Other: # Voids 1 0 0 # Bowel Movements 1 1 - Exam Review of Systems Constitutional: Reports anorexia, Reports chronic pain, Reports fatigue, Reports lethargy, Reports malaise, Reports weakness, Reports weight loss Eyes: denies blurred vision, denies bulging eye, denies decreased vision Cardiovascular: Reports decreased exercise tolerance, Reports dyspnea on exertion, Reports shortness of breath, Denies chest pain, Denies lightheadedness, Denies rapid heart beat, Denies syncope Respiratory: Reports sleep apnea, Denies congestion, Denies cough, Denies cough with sputum, Denies home oxygen, Denies snoring, Denies wheezing Gastrointestinal: Reports abdominal pain, Reports loss of appetite, Reports nausea, Denies belching, Denies bloating, Denies BRBPR, Denies change in bowel habits, Denies heartburn, Denies melena, Denies vomiting Genitourinary: Denies dysuria, Denies nocturia Menstruation: Reports postmenopausal Musculoskeletal: Reports atrophy, Reports fractures, Reports frequent falls, Reports gait dysfunction, Reports low back pain, Reports morning stiffness Musculoskeletal: absent: ankle pain, ankle stiffness, ankle swelling, elbow pain, elbow stiffness, elbow swelling, foot pain, foot stiffness, foot swelling, hand pain, hand stiffness, hand swelling, hip pain, hip stiffness, hip swelling, knee pain, knee stiffness, knee swelling, shoulder pain, shoulder stiffness, shoulder swelling, wrist pain, wrist stiffness, wrist swelling Integumentary: Denies pruritus, Denies rash Neurological: Reports burning pain, Reports change in speech, Reports confusion, Reports numbness, Reports sensory deficit, Reports weakness Psychiatric: Reports anxiety, Reports confusion, Reports depression, Denies sadness/tearfulness, Denies sleep disturbances, Denies suicidal ideation Endocrine: Reports fatigue, Reports nocturia Physical examination: General: 64-year-old female who is laying down in bed appears to be very weak does not appear to be in acute distress at this point in time. HEENT: Head is atraumatic, normocephalic, pupils were equal round reactive to light and recommendation, extraocular muscle movement were intact, sclera nonicteric, conjunctivae were pale, mucous membranes of the mouth are somewhat dry. Neck: Supple, no JVP, decreased carotid upstroke bilaterally, no lymphadenopathy. Chest: Decreased breath sounds at the bases, few rhonchi, no extremity wheezes, no chest wall tenderness, no intercostal retractions. Heart: First heart sound is depressed, second heart sounds normal, there is systolic ejection murmur 2/6 located in the left sternal border. Abdomen: Soft, nontender, nondistended, positive bowel sounds. Extremities: There is no edema no calf tenderness DP +1 bilaterally. Neurologic examination: Patient is awake alert and oriented 2, cranial nerves III-12 appear grossly intact, muscle power were 4 out of 5 in upper extremities and 3 out of 5 in bilateral lower extremities, deep tendon reflexes were depressed bilaterally, there is also neuropathic changes to both lower extremity with decreased sensation. - Labs CBC & Chem 7: 03/01/20 05:25 03/01/20 05:25 Labs: Abnormal Lab Results - Last 24 Hours (Table) 02/29/20 02/29/20 02/29/20 Range/Units 15:48 16:53 18:40 RBC (3.80-5.40) m/uL RDW (11.5-15.5) % Lymphocytes # (1.0-4.8) k/uL APTT (22.0-30.0) sec Sodium (137-145) mmol/L BUN (7-17) mg/dL Creatinine (0.52-1.04) mg/dL POC Glucose (mg/dL) 178 H (75-99) mg/dL AST (14-36) U/L Troponin I 2.520 H* 2.540 H* (0.000-0.034) ng/mL Albumin (3.5-5.0) g/dL 02/29/20 02/29/20 03/01/20 Range/Units 18:40 20:05 05:25 RBC 3.74 L (3.80-5.40) m/uL RDW 15.8 H (11.5-15.5) % Lymphocytes # 0.6 L (1.0-4.8) k/uL APTT 183.0 H* (22.0-30.0) sec Sodium (137-145) mmol/L BUN (7-17) mg/dL Creatinine (0.52-1.04) mg/dL POC Glucose (mg/dL) 171 H (75-99) mg/dL AST (14-36) U/L Troponin I (0.000-0.034) ng/mL Albumin (3.5-5.0) g/dL 03/01/20 03/01/20 03/01/20 Range/Units 05:25 05:25 11:46 RBC (3.80-5.40) m/uL RDW (11.5-15.5) % Lymphocytes # (1.0-4.8) k/uL APTT 90.6 H 73.7 H (22.0-30.0) sec Sodium 135 L (137-145) mmol/L BUN 41 H (7-17) mg/dL Creatinine 4.92 H (0.52-1.04) mg/dL POC Glucose (mg/dL) (75-99) mg/dL AST 38 H (14-36) U/L Troponin I (0.000-0.034) ng/mL Albumin 2.9 L (3.5-5.0) g/dL 03/01/20 03/01/20 03/01/20 Range/Units 12:00 12:21 12:38 RBC (3.80-5.40) m/uL RDW (11.5-15.5) % Lymphocytes # (1.0-4.8) k/uL APTT (22.0-30.0) sec Sodium (137-145) mmol/L BUN (7-17) mg/dL Creatinine (0.52-1.04) mg/dL POC Glucose (mg/dL) 59 L 64 L 104 H (75-99) mg/dL AST (14-36) U/L Troponin I (0.000-0.034) ng/mL Albumin (3.5-5.0) g/dL Microbiology - Last 24 Hours (Table) 02/28/20 12:59 Blood Culture - Preliminary Blood No Growth after 24 hours Assessment and Plan Assessment: 1. Severe metabolic enecephalopathy due to COVID-19 , DKA and NSTEMI. we will transition from insulin drip into her regimen of Levemir and SSI, we will continue with heparin drip and cardiology evaluation and we will continue with ASA 81 mg orally daily, Plavix 75 mg orally daily and we will add small dose of Coreg 3.125 mg po bid, we will check Echocardiogram for evaluation of LVF, we will continue with Lipitor 80 mg orally daily and we will continue with conservative treatment at this point as the patient has multiple comorbid conditions and she will be best served with conservative approach. 2. NSTEMI. we will continue with ASA 81 mg orally daily, PLavix 75 mg orally daily and Lipitor 80 mg orally daily and add small dose of Coreg 3.125 mg orally bid, cardiology evaluation. 3. DKA. we will transition from insulin drip into Levemir and SSI, her gap is closed and patient does not have any acidosis. 4. End-stage renal disease on hemodialysis Friday. Nephrology consult appreciated Continue Amandeep Mendez. 5. History of coronary artery disease with prior stenting of the LAD. We will continue the patient on aspirin 81 mg once every day, Plavix 75 mg orally once every day, Lipitor 80 mg once every day, added Coreg 3.125 mg orally bid. 6. Hyponatremia likely related to hypovolemia post hemodialysis yesterday. Monitor the patient CMP. 7. Anemia of chronic kidney disease. We will check the patient's iron and ferritin level along with total iron-binding capacity. 8. Hypertension and hypertensive cardiovascular disease. Continue amlodipine2.5 mg daily and add Coreg 3.125 mg orally bid. 9. Hyperlipidemia. Continue atorvastatin 80 mg at bedtime 10. Gastroesophageal reflux disease and GI prophylaxis. we will continue with Protonix 40 mg orally daily. 11. Diabetes mellitus type 2, insulin requiring. We will decrease Levemir to 16 units at bedtime along with the Humalog per sliding scale insulin. 12. Generalized anxiety disorder and recurrent depression. Continue Lexapro 20 mg orally once every day as well as Ativan 1 mg orally twice every day. 13. Hypothyroidism. Continue patient on levothyroxine 175 g orally once every day. 14. History of some symptomatic bradycardia status post permanent pacemaker placement. Stable. 15. DVT prophylaxis. Start the patient on heparin drip. 16. GI prophylaxis. we will contiue with Protonix 40 mg orally daily. 17. Medical debility. Physical therapy evaluation. 18. New-onset atrial fibrillation, paroxysmal atrial fibrillation. Cardiology consult appreciated. Patient started on Coumadin, continue heparin drip, Coreg 3.125 mg twice daily 19. Patient is full code. 20. Discharge plan: Return to [facility] once stable.
--- NOTE | 2020-03-01 16:51 | P.PN ---
Subjective Progress Note Date: 03/01/20 patient was seen for a follow-up. Patient is much more alert and awake, significantly improved as compared to yesterday. Patient denies headache, no numbness or tingling or dizziness. Please refer to examination below. Patient is laying comfortably in the bed. Objective - Vital Signs Vital signs: Vital Signs Temp 97.7 F 03/01/20 16:00 Pulse 60 03/01/20 16:00 Resp 18 03/01/20 16:00 BP 136/61 03/01/20 16:00 Pulse Ox 99 03/01/20 16:00 Intake & Output 02/29/20 03/01/20 03/01/20 18:59 06:59 18:59 Intake Total 131.873 171.024 583.916 Output Total 0 0 Balance 131.873 171.024 583.916 Weight 95.5 kg 95.5 kg Intake: Intake, IV Titration 131.873 171.024 43.916 Amount Heparin Sod,Pork in 0.45% 131.873 171.024 43.916 NaCl 25,000 unit In 0.45 % NaCl 1 250ml.bag @ 18 UNITS/KG/HR 17.203 mls/hr IV .[id number] [facility] Rx#: [id number] Oral 540 Output: Urine 0 0 Stool 0 Other: # Voids 1 0 0 # Bowel Movements 1 1 - Exam on examination patient is laying comfortably in the bed. Offers no complaints. She is able to answer much appropriately, knows that it is February 2020 and that she is in [facility]. Her speech is clear with no aphasia or dysarthria. Attention, concentration is diminished. Fund of knowledge is limited at this time. On cranial nerve exam. Pupils are round and reacting, visual peters are full, face is symmetric. Strength of upper extremity appears normal, around 5-with decreased endurance and effort.patient moves her lower extremities well, and gave moderately good effort. Neck is supple. - Labs CBC & Chem 7: 03/01/20 05:25 03/01/20 05:25 Labs: Abnormal Lab Results - Last 24 Hours (Table) 02/29/20 02/29/20 02/29/20 Range/Units 15:48 16:53 18:40 RBC (3.80-5.40) m/uL RDW (11.5-15.5) % Lymphocytes # (1.0-4.8) k/uL APTT (22.0-30.0) sec Sodium (137-145) mmol/L BUN (7-17) mg/dL Creatinine (0.52-1.04) mg/dL POC Glucose (mg/dL) 178 H (75-99) mg/dL AST (14-36) U/L Troponin I 2.520 H* 2.540 H* (0.000-0.034) ng/mL Albumin (3.5-5.0) g/dL 02/29/20 02/29/20 03/01/20 Range/Units 18:40 20:05 05:25 RBC 3.74 L (3.80-5.40) m/uL RDW 15.8 H (11.5-15.5) % Lymphocytes # 0.6 L (1.0-4.8) k/uL APTT 183.0 H* (22.0-30.0) sec Sodium (137-145) mmol/L BUN (7-17) mg/dL Creatinine (0.52-1.04) mg/dL POC Glucose (mg/dL) 171 H (75-99) mg/dL AST (14-36) U/L Troponin I (0.000-0.034) ng/mL Albumin (3.5-5.0) g/dL 03/01/20 03/01/20 03/01/20 Range/Units 05:25 05:25 11:46 RBC (3.80-5.40) m/uL RDW (11.5-15.5) % Lymphocytes # (1.0-4.8) k/uL APTT 90.6 H 73.7 H (22.0-30.0) sec Sodium 135 L (137-145) mmol/L BUN 41 H (7-17) mg/dL Creatinine 4.92 H (0.52-1.04) mg/dL POC Glucose (mg/dL) (75-99) mg/dL AST 38 H (14-36) U/L Troponin I (0.000-0.034) ng/mL Albumin 2.9 L (3.5-5.0) g/dL 03/01/20 03/01/2020 Range/Units 12:00 12:21 12:38 RBC (3.80-5.40) m/uL RDW (11.5-15.5) % Lymphocytes # (1.0-4.8) k/uL APTT (22.0-30.0) sec Sodium (137-145) mmol/L BUN (7-17) mg/dL Creatinine (0.52-1.04) mg/dL POC Glucose (mg/dL) 59 L 64 L 104 H (75-99) mg/dL AST (14-36) U/L Troponin I (0.000-0.034) ng/mL Albumin (3.5-5.0) g/dL Microbiology - Last 24 Hours (Table) 02/28/20 12:59 Blood Culture - Preliminary Blood No Growth after 48 hours Assessment and Plan Assessment: * Altered mental status, likely due to toxic metabolic encephalopathy, due to reasons mentioned below. * Patient has acute COVID-19 pneumonia * DKA * End-stage renal disease on hemodialysis * Elevated cardiac enzymes, on heparin. * History of sick sinus syndrome, status post dual-chamber pacemaker * Diabetes * Hypertension * Hypothyroidism, * Arthritis Plan: * EEG 02/29/2020 revealed background slowing of moderate degree, consistent with toxic metabolic encephalopathy. No definitive epileptiform activity was seen. * Patient's encephalopathy has much improved today as compared to yesterday. * No other workup indicated at this time. * We will follow patient clinically. * Medical management as per IM/pulmonary.
[2020-03-01 16:52] LABS: Glucose,Whole Blood 128 mg/dL (75-99)
[2020-03-01] MEDS ORDERED: WARFARIN 2.5 MG TAB PO ONE (18:00)
[2020-03-01] MEDS ORDERED: WARFARIN 5 MG TAB PO ONE (18:00)
[2020-03-01 20:31] LABS: Glucose,Whole Blood 211 mg/dL (75-99)
[2020-03-01] MEDS: ATORVASTATIN 80 MG TAB PO SCH (20:36)
[2020-03-01] MEDS: HYDROcodone/APAP 10-325MG 1 EACH TAB PO PRN (20:36)
[2020-03-01] MEDS: FOLIC ACID-VIT B COMPLEX-VIT C 1 CAP PO SCH (20:37)
[2020-03-01] MEDS ORDERED: INSULIN DETEMIR (LEVEMIR) 100 UNIT/ML SYR SQ SCH (21:00)
[2020-03-02 02:21] LABS: Basophils # (A) 0.1 k/uL (0-0.2); Basophils % (A) 1 %; Eosinophils # (A) 0.1 k/uL (0-0.7); Eosinophils % (A) 1 %; HCT 36.2 % (34.0-46.0); HGB 11.6 gm/dL (11.4-16.0); Hypochromasia Slight; Lymphocytes # (A) 0.4 k/uL (1.0-4.8); Lymphocytes % (A) 7 %; MCH 30.8 pg (25.0-35.0); MCHC 32.1 g/dL (31.0-37.0); MCV 95.9 fL (80.0-100.0); Mean Platelet Volume 9.1; Monocytes # (A) 0.3 k/uL (0-1.0); Monocytes % (A) 6 %; Neutrophils # (A) 4.6 k/uL (1.3-7.7); Neutrophils % (A) 84 %; Platelet Count 129 k/uL (150-450); RBC 3.77 m/uL (3.80-5.40); RDW 15.9 % (11.5-15.5); WBC 5.5 k/uL (3.8-10.6)
[2020-03-02 02:31] LABS: INR 1.2 (<1.2); Partial Thromboplastin Time 58.6 sec (22.0-30.0); Prothrombin Time 12.6 sec (9.0-12.0)
[2020-03-02 02:44] LABS: Potassium 3.9 mmol/L (3.5-5.1)
[2020-03-02] MEDS: HEPARIN SOD,PORK IN 0.45% NACL 25,000 UNIT in 0.45% NACL 1 250ML.BAG IV SCH ×2 (05:18→17:15)
[2020-03-02 06:27] LABS: Glucose,Whole Blood 249 mg/dL (75-99)
[2020-03-02] MEDS: LEVOTHYROXINE 50 MCG TAB PO SCH (06:42)
[2020-03-02] MEDS: INSULIN ASPART (NovoLOG) 100 UNIT/ML VIAL SQ SCH ×4 (06:42→20:45)
[2020-03-02] MEDS: carvediloL 3.125 MG TAB PO SCH ×2 (06:42→17:11)
[2020-03-02] MEDS: FUROSEMIDE 80 MG TAB PO SCH (08:48)
[2020-03-02] MEDS: ASPIRIN 81 MG PO SCH (08:48)
[2020-03-02] MEDS: CLOPIDOGREL 75 MG TAB PO SCH (08:48)
[2020-03-02] MEDS: ESCITALOPRAM 20 MG TAB PO SCH (08:48)
[2020-03-02] MEDS: DOCUSATE 100 MG CAP PO SCH ×2 (08:48→20:45)
[2020-03-02] MEDS: CALCIUM ACETATE 667 MG TAB PO SCH ×3 (08:48→17:12)
[2020-03-02] MEDS: FOLIC ACID-VIT B COMPLEX-VIT C 1 CAP PO SCH (08:48)
--- NOTE | 2020-03-02 10:18 | P.PN ---
Subjective Patient is seen in follow-up for end-stage renal disease. She is maintained on hemodialysis on Friday schedule. No problems with dialysis yesterday. Resting in bed. No active complaints. Vital signs are stable. General: The patient appeared well nourished and normally developed. HEENT: Head exam is unremarkable. Neck is without jugular venous distension. LUNGS: Breath sounds decreased. HEART: Rate and Rhythm are regular. ABDOMEN: Soft, nontender. EXTREMITITES: 1+ edema. Objective - Vital Signs Vital signs: Vital Signs Temp 98.1 F 03/02/20 08:45 Pulse 60 03/02/20 08:45 Resp 16 03/02/20 08:45 BP 140/63 03/02/20 08:45 Pulse Ox 96 03/02/20 08:45 Intake & Output 03/01/20 03/02/20 03/02/20 18:59 06:59 18:59 Intake Total 763.916 156.32 260 Output Total 0 0 Balance 763.916 156.32 260 Intake: Intake, IV Titration 43.916 36.32 Amount Heparin Sod,Pork in 0.45% 43.916 36.32 NaCl 25,000 unit In 0.45 % NaCl 1 250ml.bag @ 18 UNITS/KG/HR 17.203 mls/hr IV .[id number] [facility] Rx#: [id number] Oral 720 120 260 Output: Urine 0 0 Stool 0 0 Other: # Voids 0 0 # Bowel Movements 2 - Labs CBC & Chem 7: 03/02/20 02:09 03/02/20 02:09 Labs: Abnormal Lab Results - Last 24 Hours (Table) 03/01/20 03/01/20 03/01/20 Range/Units 11:46 12:00 12:21 RBC (3.80-5.40) m/uL RDW (11.5-15.5) % Plt Count (150-450) k/uL Lymphocytes # (1.0-4.8) k/uL PT (9.0-12.0) sec INR (<1.2) APTT 73.7 H (22.0-30.0) sec Sodium (137-145) mmol/L Chloride (98-107) mmol/L Carbon Dioxide (22-30) mmol/L BUN (7-17) mg/dL Creatinine (0.52-1.04) mg/dL Glucose (74-99) mg/dL POC Glucose (mg/dL) 59 L 64 L (75-99) mg/dL 03/01/20 03/01/20 03/01/20 Range/Units 12:38 16:50 18:57 RBC (3.80-5.40) m/uL RDW (11.5-15.5) % Plt Count (150-450) k/uL Lymphocytes # (1.0-4.8) k/uL PT (9.0-12.0) sec INR (<1.2) APTT 35.0 H (22.0-30.0) sec Sodium (137-145) mmol/L Chloride (98-107) mmol/L Carbon Dioxide (22-30) mmol/L BUN (7-17) mg/dL Creatinine (0.52-1.04) mg/dL Glucose (74-99) mg/dL POC Glucose (mg/dL) 104 H 128 H (75-99) mg/dL 03/01/20 03/02/20 03/02/20 Range/Units 20:29 02:09 02:09 RBC 3.77 L (3.80-5.40) m/uL RDW 15.9 H (11.5-15.5) % Plt Count 129 L (150-450) k/uL Lymphocytes # 0.4 L (1.0-4.8) k/uL PT (9.0-12.0) sec INR (<1.2) APTT (22.0-30.0) sec Sodium 132 L (137-145) mmol/L Chloride 96 L (98-107) mmol/L Carbon Dioxide 31 H (22-30) mmol/L BUN 21 H (7-17) mg/dL Creatinine 3.07 H (0.52-1.04) mg/dL Glucose 257 H (74-99) mg/dL POC Glucose (mg/dL) 211 H (75-99) mg/dL 03/02/20 03/02/20 Range/Units 02:09 06:25 RBC (3.80-5.40) m/uL RDW (11.5-15.5) % Plt Count (150-450) k/uL Lymphocytes # (1.0-4.8) k/uL PT 12.6 H (9.0-12.0) sec INR 1.2 H (<1.2) APTT 58.6 H (22.0-30.0) sec Sodium (137-145) mmol/L Chloride (98-107) mmol/L Carbon Dioxide (22-30) mmol/L BUN (7-17) mg/dL Creatinine (0.52-1.04) mg/dL Glucose (74-99) mg/dL POC Glucose (mg/dL) 249 H (75-99) mg/dL Microbiology - Last 24 Hours (Table) 02/28/20 12:59 Blood Culture - Preliminary Blood No Growth after 48 hours Assessment and Plan Plan: Assessment: 1. End-stage renal disease maintained on hemodialysis on Friday schedule. 2. DKA status post insulin drip. Blood sugars stable. 3. Recent Covid 19 infection. 4. Hypertension with chronic kidney disease. Stable. 5. Chronic kidney disease mineral bone disease maintained on PhosLo. Phosphorus normal. 6. Encephalopathy. ?related to DKA. Neurology following. 7. Chronic systolic CHF with ejection fraction of 35-40% with moderate tricuspid regurgitation and pulmonary hypertension. Plan: Hemodialysis tomorrow.
[2020-03-02 11:36] LABS: Glucose,Whole Blood 290 mg/dL (75-99)
--- NOTE | 2020-03-02 14:55 | P.PN ---
Subjective Progress Note Date: 03/02/20 CHIEF COMPLAINT: Elevated troponin HISTORY OF PRESENT ILLNESS: Patient examined at the bedside. Patient denies chest pain or pressure. She denies shortness of breath. He shouldn't has been started on Coumadin. INR 1.2 today. She remains on IV heparin. PHYSICAL EXAM: VITAL SIGNS: Reviewed. GENERAL: Well-developed in no acute distress. HEENT: Head is normocephalic. Pupils are equal, round. Sclerae anicteric. Mucous membranes of the mouth are moist. Neck supple. No JVD or thyromegaly LUNGS: Respirations even and unlabored. Lungs diminished. HEART: Regular rate and rhythm. S1 and S2 heard. EXTREMITIES: Normal range of motion. No clubbing or cyanosis. Peripheral pulses intact. Trace bilateral lower extremity edema ASSESSMENT: Altered mental status Coronary artery disease with previous multivessel PCI Abnormal troponins History of sick sinus syndrome, s/p dual chamber pacemaker Hypertension Hyperlipidemia End-stage renal disease Recent Covid 19 Paroxysmal atrial fibrillation, since October 2019 per pacemaker interrogation PLAN: Continue Coumadin dosing per pharmacy Continue IV heparin until INR is 2.0 then may discontinue IV heparin We will sign off. Please reconsult if needed Nurse practitioner note has been reviewed by physician. Signing provider agrees with the documented findings, assessment, and plan of care. Objective - Vital Signs Vital signs: Vital Signs Temp 98.2 F 03/02/20 12:12 Pulse 61 03/02/20 14:00 Resp 16 03/02/20 14:00 BP 143/67 03/02/20 12:12 Pulse Ox 98 03/02/20 12:12 Intake & Output 03/01/20 03/02/20 03/02/20 18:59 06:59 18:59 Intake Total 763.916 156.32 385 Output Total 0 0 Balance 763.916 156.32 385 Weight 95.5 kg Intake: Intake, IV Titration 43.916 36.32 Amount Heparin Sod,Pork in 0.45% 43.916 36.32 NaCl 25,000 unit In 0.45 % NaCl 1 250ml.bag @ 18 UNITS/KG/HR 17.203 mls/hr IV .[id number] [facility] Rx#: [id number] Oral 720 120 385 Output: Urine 0 0 Stool 0 0 Other: # Voids 0 0 # Bowel Movements 2 - Labs CBC & Chem 7: 03/02/20 02:09 03/02/20 02:09 Labs: Abnormal Lab Results - Last 24 Hours (Table) 03/01/20 03/01/20 03/01/20 Range/Units 16:50 18:57 20:29 RBC (3.80-5.40) m/uL RDW (11.5-15.5) % Plt Count (150-450) k/uL Lymphocytes # (1.0-4.8) k/uL PT (9.0-12.0) sec INR (<1.2) APTT 35.0 H (22.0-30.0) sec Sodium (137-145) mmol/L Chloride (98-107) mmol/L Carbon Dioxide (22-30) mmol/L BUN (7-17) mg/dL Creatinine (0.52-1.04) mg/dL Glucose (74-99) mg/dL POC Glucose (mg/dL) 128 H 211 H (75-99) mg/dL 03/02/20 03/02/20 03/02/20 Range/Units 02:09 02:09 02:09 RBC 3.77 L (3.80-5.40) m/uL RDW 15.9 H (11.5-15.5) % Plt Count 129 L (150-450) k/uL Lymphocytes # 0.4 L (1.0-4.8) k/uL PT 12.6 H (9.0-12.0) sec INR 1.2 H (<1.2) APTT 58.6 H (22.0-30.0) sec Sodium 132 L (137-145) mmol/L Chloride 96 L (98-107) mmol/L Carbon Dioxide 31 H (22-30) mmol/L BUN 21 H (7-17) mg/dL Creatinine 3.07 H (0.52-1.04) mg/dL Glucose 257 H (74-99) mg/dL POC Glucose (mg/dL) (75-99) mg/dL 03/02/20 03/02/20 Range/Units 06:25 11:34 RBC (3.80-5.40) m/uL RDW (11.5-15.5) % Plt Count (150-450) k/uL Lymphocytes # (1.0-4.8) k/uL PT (9.0-12.0) sec INR (<1.2) APTT (22.0-30.0) sec Sodium (137-145) mmol/L Chloride (98-107) mmol/L Carbon Dioxide (22-30) mmol/L BUN (7-17) mg/dL Creatinine (0.52-1.04) mg/dL Glucose (74-99) mg/dL POC Glucose (mg/dL) 249 H 290 H (75-99) mg/dL Microbiology - Last 24 Hours (Table) 02/28/20 12:59 Blood Culture - Preliminary Blood No Growth after 48 hours
[2020-03-02 17:00] LABS: Glucose,Whole Blood 395 mg/dL (75-99)
[2020-03-02] MEDS: LIDOCAINE-PRILOCAINE 2.5-2.5% CREAM 5 GM TUBE TOPICAL SCH (17:18)
[2020-03-02] MEDS ORDERED: WARFARIN 5 MG TAB PO ONE (18:00)
--- NOTE | 2020-03-02 18:01 | P.PN ---
Subjective Progress Note Date: 03/02/20 This is a 64-year-old obese female patient of paty, Dr. JAE Jc, and Dr. Talley with multiple medical problem was known to have end-stage kidney disease on hemodialysis Friday, coronary artery disease and prior coronary artery stenting, diabetes type 2 insulin requiring, dyslipidemia, history of permanent pacemaker. Patient is a long-term resident at [facility] developed to have COVID-19 during an outbreak that affected [facility] on [facility] and she was sent to [facility] for evaluation and treatment and she eventually was sent back to [facility] on the [place] however she became very weak and has not gotten back to her baseline , she was sent to her HD and she has nt been eating or drinking with severe change in mental status, she was directed to go to the ER at [facility] where she was found to have DKA and slight elevation in her Troponn-I suggestive of NSTEMI, she was initially started on insulin drip and her gap since was closed and she was transitioned to her Lantus and SSI, she was seeen in consultation by cardiology , Nephrology and Neurology and she was admitted to the hospital for treatment. 03/01: Patient is more awake and alert today. She is undergoing hemodialysis today. Patient has been followed by cardiology and pacemaker was interrogated finding frequent episodes of atrial fibrillation. Patient is on heparin drip and started on Coumadin by cardiology. Echocardiogram reveals EF of 35-40%, moderate concentric left ventricular hypertrophy, mild aortic valve sclerosis, mild mitral regurgitation, moderate tricuspid regurgitation, moderate pulmonary hypertension. EEG is abnormal with slowing consistent with toxic metabolic encephalopathy due to diffuse structural brain abnormality. No epileptiform activity. Patient is not requiring oxygen. Pulse ox 99% on room air, afebrile, heart rate 60 and blood pressure 136/61. Hemoglobin 11.4. Sodium 135, potassium 4.0. BUN 41 and creatinine 4.92. Patient's hypoglycemia today at lunch with blood sugar of 59. Levemir decreased to 16 units at bedtime. 03/02: Patient remains on IV heparin and started on Coumadin, pharmacy dosing. Cardiology has signed off her case. Treatment monitor his been atrial fibrillation with controlled rate. She has been afebrile, heart rate 60, blood pressure 140/63, pulse ox 96% on room air. Repeat lab work reveals platelet count 129. INR today 1.2. Sodium 132, potassium 3.9, chloride 96, CO2 31, BUN 21 and creatinine 3.07. Blood sugars in the 200s. Patient is scheduled for hemodialysis tomorrow. Levemir will be increased back to 18 units at bedtime. Patient continues to have some confusion and not back to her baseline. Objective - Vital Signs Vital signs: Vital Signs Temp 97.7 F 03/02/20 15:55 Pulse 60 03/02/20 15:55 Resp 18 03/02/20 15:55 BP 127/60 03/02/20 15:55 Pulse Ox 98 03/02/20 15:55 Intake & Output 03/01/20 03/02/20 03/02/20 18:59 06:59 18:59 Intake Total 763.916 156.32 563.614 Output Total 0 0 Balance 763.916 156.32 563.614 Weight 95.5 kg Intake: Intake, IV Titration 43.916 36.32 178.614 Amount Heparin Sod,Pork in 0.45% 43.916 36.32 178.614 NaCl 25,000 unit In 0.45 % NaCl 1 250ml.bag @ 18 UNITS/KG/HR 17.203 mls/hr IV .[id number] [facility] Rx#: [id number] Oral 720 120 385 Output: Urine 0 0 Stool 0 0 Other: # Voids 0 0 0 # Bowel Movements 2 1 - Exam Review of Systems Constitutional: Reports anorexia, Reports chronic pain, Reports fatigue, Reports lethargy, Reports malaise, Reports weakness, Reports weight loss Eyes: denies blurred vision, denies bulging eye, denies decreased vision Cardiovascular: Reports decreased exercise tolerance, Reports dyspnea on exertion, Reports shortness of breath, Denies chest pain, Denies lightheadedness, Denies rapid heart beat, Denies syncope Respiratory: Reports sleep apnea, Denies congestion, Denies cough, Denies cough with sputum, Denies home oxygen, Denies snoring, Denies wheezing Gastrointestinal: Reports abdominal pain, Reports loss of appetite, Reports nausea, Denies belching, Denies bloating, Denies BRBPR, Denies change in bowel habits, Denies heartburn, Denies melena, Denies vomiting Genitourinary: Denies dysuria, Denies nocturia Menstruation: Reports postmenopausal Musculoskeletal: Reports atrophy, Reports fractures, Reports frequent falls, Reports gait dysfunction, Reports low back pain, Reports morning stiffness Musculoskeletal: absent: ankle pain, ankle stiffness, ankle swelling, elbow pain, elbow stiffness, elbow swelling, foot pain, foot stiffness, foot swelling, hand pain, hand stiffness, hand swelling, hip pain, hip stiffness, hip swelling, knee pain, knee stiffness, knee swelling, shoulder pain, shoulder stiffness, shoulder swelling, wrist pain, wrist stiffness, wrist swelling Integumentary: Denies pruritus, Denies rash Neurological: Reports burning pain, Reports change in speech, Reports confusion, Reports numbness, Reports sensory deficit, Reports weakness Psychiatric: Reports anxiety, Reports confusion, Reports depression, Denies sadness/tearfulness, Denies sleep disturbances, Denies suicidal ideation Endocrine: Reports fatigue, Reports nocturia Physical examination: General: 64-year-old female who is laying down in bed appears to be very weak does not appear to be in acute distress at this point in time. HEENT: Head is atraumatic, normocephalic, pupils were equal round reactive to light and recommendation, extraocular muscle movement were intact, sclera nonicteric, conjunctivae were pale, mucous membranes of the mouth are somewhat dry. Neck: Supple, no JVP, decreased carotid upstroke bilaterally, no lymphadenopathy. Chest: Decreased breath sounds at the bases, few rhonchi, no extremity wheezes, no chest wall tenderness, no intercostal retractions. Heart: First heart sound is depressed, second heart sounds normal, there is systolic ejection murmur 2/6 located in the left sternal border. Abdomen: Soft, nontender, nondistended, positive bowel sounds. Extremities: There is no edema no calf tenderness DP +1 bilaterally. Neurologic examination: Patient is awake alert and oriented 2, cranial nerves III-12 appear grossly intact, muscle power were 4 out of 5 in upper extremities and 3 out of 5 in bilateral lower extremities, deep tendon reflexes were depressed bilaterally, there is also neuropathic changes to both lower extremity with decreased sensation. - Labs CBC & Chem 7: 03/02/20 02:09 03/02/20 02:09 Labs: Abnormal Lab Results - Last 24 Hours (Table) 03/01/20 03/01/20 03/02/20 Range/Units 18:57 20:29 02:09 RBC 3.77 L (3.80-5.40) m/uL RDW 15.9 H (11.5-15.5) % Plt Count 129 L (150-450) k/uL Lymphocytes # 0.4 L (1.0-4.8) k/uL PT (9.0-12.0) sec INR (<1.2) APTT 35.0 H (22.0-30.0) sec Sodium (137-145) mmol/L Chloride (98-107) mmol/L Carbon Dioxide (22-30) mmol/L BUN (7-17) mg/dL Creatinine (0.52-1.04) mg/dL Glucose (74-99) mg/dL POC Glucose (mg/dL) 211 H (75-99) mg/dL 03/02/20 03/02/20 03/02/20 Range/Units 02:09 02:09 06:25 RBC (3.80-5.40) m/uL RDW (11.5-15.5) % Plt Count (150-450) k/uL Lymphocytes # (1.0-4.8) k/uL PT 12.6 H (9.0-12.0) sec INR 1.2 H (<1.2) APTT 58.6 H (22.0-30.0) sec Sodium 132 L (137-145) mmol/L Chloride 96 L (98-107) mmol/L Carbon Dioxide 31 H (22-30) mmol/L BUN 21 H (7-17) mg/dL Creatinine 3.07 H (0.52-1.04) mg/dL Glucose 257 H (74-99) mg/dL POC Glucose (mg/dL) 249 H (75-99) mg/dL 03/02/20 03/02/20 Range/Units 11:34 16:58 RBC (3.80-5.40) m/uL RDW (11.5-15.5) % Plt Count (150-450) k/uL Lymphocytes # (1.0-4.8) k/uL PT (9.0-12.0) sec INR (<1.2) APTT (22.0-30.0) sec Sodium (137-145) mmol/L Chloride (98-107) mmol/L Carbon Dioxide (22-30) mmol/L BUN (7-17) mg/dL Creatinine (0.52-1.04) mg/dL Glucose (74-99) mg/dL POC Glucose (mg/dL) 290 H 395 H (75-99) mg/dL Microbiology - Last 24 Hours (Table) 02/28/20 12:59 Blood Culture - Preliminary Blood No Growth after 72 hours Assessment and Plan Assessment: 1. Severe metabolic enecephalopathy due to COVID-19 , DKA and NSTEMI. Continue Levemir and SSI, we will continue with heparin drip and cardiology has signed off and we will continue with ASA 81 mg orally daily, Plavix 75 mg orally daily, Coreg 3.125 mg po bid, Lipitor 80 mg orally daily and we will continue with conservative treatment at this point as the patient has multiple comorbid conditions and she will be best served with conservative approach. 2. NSTEMI. we will continue with ASA 81 mg orally daily, PLavix 75 mg orally daily and Lipitor 80 mg orally daily and add small dose of Coreg 3.125 mg orally bid, cardiology evaluation. 3. DKA. we will transition from insulin drip into Levemir and SSI, her gap is closed and patient does not have any acidosis. 4. End-stage renal disease on hemodialysis Friday. Nephrology consult appreciated Continue NephAmandeep lazar. 5. History of coronary artery disease with prior stenting of the LAD. We will continue the patient on aspirin 81 mg once every day, Plavix 75 mg orally once every day, Lipitor 80 mg once every day, added Coreg 3.125 mg orally bid. 6. Hyponatremia likely related to hypovolemia post hemodialysis yesterday. Monitor the patient CMP. 7. Anemia of chronic kidney disease. We will check the patient's iron and ferritin level along with total iron-binding capacity. 8. Hypertension and hypertensive cardiovascular disease. Continue amlodipine2.5 mg daily and add Coreg 3.125 mg orally bid. 9. Hyperlipidemia. Continue atorvastatin 80 mg at bedtime 10. Gastroesophageal reflux disease and GI prophylaxis. we will continue with Protonix 40 mg orally daily. 11. Diabetes mellitus type 2, insulin requiring. We will increase Levemir back to 18 units at bedtime along with the Humalog per sliding scale insulin. 12. Generalized anxiety disorder and recurrent depression. Continue Lexapro 20 mg orally once every day as well as Ativan 1 mg orally twice every day. 13. Hypothyroidism. Continue patient on levothyroxine 175 g orally once every day. 14. History of some symptomatic bradycardia status post permanent pacemaker placement. Stable. 15. DVT prophylaxis. Start the patient on heparin drip. 16. GI prophylaxis. we will contiue with Protonix 40 mg orally daily. 17. Medical debility. Physical therapy evaluation. 18. New-onset atrial fibrillation, paroxysmal atrial fibrillation. Cardiology consult appreciated. Patient started on Coumadin, continue heparin drip, Coreg 3.125 mg twice daily 19. Patient is full code. 20. Discharge plan: Return to [facility] once stable.
--- NOTE | 2020-03-02 19:41 | P.PN ---
Subjective Progress Note Date: 03/02/20 03/02/2020: Patient is more alert and awake, but does not follow commands. Patient looks at you, makes eye contact, but appears voluntarily does not answer questions. Yesterday she was doing better than today. Patient denies headache. 03/01/2020: patient was seen for a follow-up. Patient is much more alert and awake, significantly improved as compared to yesterday. Patient denies headache, no numbness or tingling or dizziness. Please refer to examination below. Patient is laying comfortably in the bed. Objective - Vital Signs Vital signs: Vital Signs Temp 97.7 F 03/02/20 15:55 Pulse 60 03/02/20 15:55 Resp 18 03/02/20 15:55 BP 127/60 03/02/20 15:55 Pulse Ox 98 03/02/20 15:55 Intake & Output 03/02/20 03/02/20 03/03/20 06:59 18:59 06:59 Intake Total 156.32 563.614 Output Total 0 Balance 156.32 563.614 Weight 95.5 kg Intake: Intake, IV Titration 36.32 178.614 Amount Heparin Sod,Pork in 0.45% 36.32 178.614 NaCl 25,000 unit In 0.45 % NaCl 1 250ml.bag @ 18 UNITS/KG/HR 17.203 mls/hr IV .[id number] COUNT [facility] Rx#: [id number] Oral 120 385 Output: Urine 0 Stool 0 Other: # Voids 0 0 # Bowel Movements 1 - Exam 03/02/2020: Patient is awake, but does not follow commands. Patient makes eye contact, does not even answer, about what her name is. Does not answer what building, month and year or date is it. Today it clearly appears that she was voluntarily not answering questions. As I was leaving the room, she did say "Bye". Tone is equal in bilateral upper limbs. Patient has some high arched feet. Patient withdraws to plantar submission equally. 03/01/2020: on examination patient is laying comfortably in the bed. Offers no complaints. She is able to answer much appropriately, knows that it is February 2020 and that she is in [facility]. Her speech is clear with no aphasia or dysarthria. Attention, concentration is diminished. Fund of knowledge is limited at this time. On cranial nerve exam. Pupils are round and reacting, v isual peters are full, face is symmetric. Strength of upper extremity appears normal, around 5-with decreased endurance and effort.patient moves her lower extremities well, and gave moderately good effort. Neck is supple. - Labs CBC & Chem 7: 03/02/20 02:09 03/02/20 02:09 Labs: Abnormal Lab Results - Last 24 Hours (Table) 03/01/20 03/01/20 03/02/20 Range/Units 18:57 20:29 02:09 RBC 3.77 L (3.80-5.40) m/uL RDW 15.9 H (11.5-15.5) % Plt Count 129 L (150-450) k/uL Lymphocytes # 0.4 L (1.0-4.8) k/uL PT (9.0-12.0) sec INR (<1.2) APTT 35.0 H (22.0-30.0) sec Sodium (137-145) mmol/L Chloride (98-107) mmol/L Carbon Dioxide (22-30) mmol/L BUN (7-17) mg/dL Creatinine (0.52-1.04) mg/dL Glucose (74-99) mg/dL POC Glucose (mg/dL) 211 H (75-99) mg/dL 03/02/20 03/02/20 03/02/20 Range/Units 02:09 02:09 06:25 RBC (3.80-5.40) m/uL RDW (11.5-15.5) % Plt Count (150-450) k/uL Lymphocytes # (1.0-4.8) k/uL PT 12.6 H (9.0-12.0) sec INR 1.2 H (<1.2) APTT 58.6 H (22.0-30.0) sec Sodium 132 L (137-145) mmol/L Chloride 96 L (98-107) mmol/L Carbon Dioxide 31 H (22-30) mmol/L BUN 21 H (7-17) mg/dL Creatinine 3.07 H (0.52-1.04) mg/dL Glucose 257 H (74-99) mg/dL POC Glucose (mg/dL) 249 H (75-99) mg/dL 03/02/20 03/02/20 Range/Units 11:34 16:58 RBC (3.80-5.40) m/uL RDW (11.5-15.5) % Plt Count (150-450) k/uL Lymphocytes # (1.0-4.8) k/uL PT (9.0-12.0) sec INR (<1.2) APTT (22.0-30.0) sec Sodium (137-145) mmol/L Chloride (98-107) mmol/L Carbon Dioxide (22-30) mmol/L BUN (7-17) mg/dL Creatinine (0.52-1.04) mg/dL Glucose (74-99) mg/dL POC Glucose (mg/dL) 290 H 395 H (75-99) mg/dL Microbiology - Last 24 Hours (Table) 02/28/20 12:59 Blood Culture - Preliminary Blood No Growth after 72 hours Assessment and Plan Assessment: * Altered mental status, likely due to toxic metabolic encephalopathy, due to reasons mentioned below. * Patient has acute COVID-19 pneumonia * DKA * End-stage renal disease on hemodialysis * Elevated cardiac enzymes, on heparin. * History of sick sinus syndrome, status post dual-chamber pacemaker * Diabetes * Hypertension * Hypothyroidism, * Arthritis Plan: * EEG 02/29/2020 revealed background slowing of moderate degree, consistent with toxic metabolic encephalopathy. No definitive epileptiform activity was seen. * Patient's encephalopathy has much improved today as compared to yesterday. Patient today does not want to participate in examination, appears to be on volitional basis. * No other workup indicated at this time. * Medical management as per IM/pulmonary. * As there is no active neurological issues, we will sign off. Please reconsult neurology if any other concerns.
[2020-03-02 20:00] LABS: Glucose,Whole Blood 234 mg/dL (75-99)
[2020-03-02] MEDS: HYDROcodone/APAP 10-325MG 1 EACH TAB PO PRN (20:45)
[2020-03-02] MEDS: INSULIN DETEMIR (LEVEMIR) 100 UNIT/ML SYR SQ SCH (20:45)
[2020-03-02] MEDS: ATORVASTATIN 80 MG TAB PO SCH (20:45)
[2020-03-03 03:17] LABS: INR 1.4 (<1.2); Partial Thromboplastin Time 82.9 sec (22.0-30.0); Prothrombin Time 14.2 sec (9.0-12.0)
[2020-03-03 03:24] LABS: Calcium 9.5 mg/dL (8.4-10.2); Potassium 3.7 mmol/L (3.5-5.1)
[2020-03-03 06:17] LABS: Glucose,Whole Blood 119 mg/dL (75-99)
[2020-03-03] MEDS: INSULIN ASPART (NovoLOG) 100 UNIT/ML VIAL SQ SCH ×4 (06:18→21:52)
[2020-03-03] MEDS: LEVOTHYROXINE 50 MCG TAB PO SCH (06:22)
[2020-03-03] MEDS: carvediloL 3.125 MG TAB PO SCH ×2 (06:22→17:12)
[2020-03-03] MEDS: CALCIUM ACETATE 667 MG TAB PO SCH ×3 (07:59→17:12)
[2020-03-03] MEDS: DOCUSATE 100 MG CAP PO SCH ×2 (08:00→21:52)
[2020-03-03] MEDS: CLOPIDOGREL 75 MG TAB PO SCH (08:00)
[2020-03-03] MEDS: HEPARIN SOD,PORK IN 0.45% NACL 25,000 UNIT in 0.45% NACL 1 250ML.BAG IV SCH (08:00)
[2020-03-03] MEDS: FUROSEMIDE 80 MG TAB PO SCH (08:00)
[2020-03-03] MEDS: ASPIRIN 81 MG PO SCH (08:00)
[2020-03-03] MEDS: ESCITALOPRAM 20 MG TAB PO SCH (08:01)
--- NOTE | 2020-03-03 10:50 | P.PN ---
Subjective Patient is seen in follow-up for end-stage renal disease. She is maintained on hemodialysis on Friday schedule. Tolerating dialysis well. No changes overnight. Vital signs are stable. General: The patient appeared well nourished and normally developed. HEENT: Head exam is unremarkable. Neck is without jugular venous distension. LUNGS: Breath sounds decreased. HEART: Rate and Rhythm are regular. ABDOMEN: Soft, nontender. EXTREMITITES: 1+ edema. Objective - Vital Signs Vital signs: Vital Signs Temp 97.5 F L 03/03/20 07:55 Pulse 61 03/03/20 07:55 Resp 18 03/03/20 07:55 BP 135/61 03/03/20 07:55 Pulse Ox 100 03/03/20 07:55 Intake & Output 03/02/20 03/03/20 03/03/20 18:59 06:59 18:59 Intake Total 563.614 98.481 502.077 Balance 563.614 98.481 502.077 Weight 95.5 kg 93.5 kg Intake: Intake, IV Titration 178.614 98.481 22.077 Amount Heparin Sod,Pork in 0.45% 178.614 98.481 22.077 NaCl 25,000 unit In 0.45 % NaCl 1 250ml.bag @ 18 UNITS/KG/HR 17.203 mls/hr IV .[id number] [facility] Rx#: [id number] Oral 385 480 Other: # Voids 0 0 0 # Bowel Movements 1 0 - Labs CBC & Chem 7: 03/02/20 02:09 03/03/20 02:38 Labs: Abnormal Lab Results - Last 24 Hours (Table) 03/02/20 03/02/20 03/02/20 Range/Units 11:34 16:58 19:58 PT (9.0-12.0) sec INR (<1.2) APTT (22.0-30.0) sec Sodium (137-145) mmol/L Chloride (98-107) mmol/L Carbon Dioxide (22-30) mmol/L BUN (7-17) mg/dL Creatinine (0.52-1.04) mg/dL Glucose (74-99) mg/dL POC Glucose (mg/dL) 290 H 395 H 234 H (75-99) mg/dL 03/03/20 03/03/20 03/03/20 Range/Units 02:38 02:38 06:16 PT 14.2 H (9.0-12.0) sec INR 1.4 H (<1.2) APTT 82.9 H (22.0-30.0) sec Sodium 132 L (137-145) mmol/L Chloride 95 L (98-107) mmol/L Carbon Dioxide 31 H (22-30) mmol/L BUN 31 H (7-17) mg/dL Creatinine 4.08 H (0.52-1.04) mg/dL Glucose 62 L (74-99) mg/dL POC Glucose (mg/dL) 119 H (75-99) mg/dL Microbiology - Last 24 Hours (Table) 02/28/20 12:59 Blood Culture - Preliminary Blood No Growth after 72 hours Assessment and Plan Plan: Assessment: 1. End-stage renal disease maintained on hemodialysis on Friday schedule. 2. DKA status post insulin drip. Blood sugars stable. 3. Recent Covid 19 infection. Negative this admission. 4. Hypertension with chronic kidney disease. Stable. 5. Chronic kidney disease mineral bone disease maintained on PhosLo. Phosphorus normal. 6. Encephalopathy. ?related to DKA. Neurology following. 7. Chronic systolic CHF with ejection fraction of 35-40% with moderate tricuspid regurgitation and pulmonary hypertension. Plan: Currently seen while undergoing hemodialysis. Next treatment on Friday. Anticipate discharge soon back to [facility].
[2020-03-03 12:00] LABS: Glucose,Whole Blood 64 mg/dL (75-99)
[2020-03-03 12:21] LABS: Glucose,Whole Blood 73 mg/dL (75-99)
[2020-03-03 12:37] LABS: Glucose,Whole Blood 80 mg/dL (75-99)
[2020-03-03 13:16] VITALS: RESP 16
[2020-03-03 15:18] LABS: Glucose,Whole Blood 147 mg/dL (75-99)
[2020-03-03 16:54] LABS: Glucose,Whole Blood 149 mg/dL (75-99)
[2020-03-03] MEDS ORDERED: WARFARIN 7.5 MG TAB PO ONE (18:00)
[2020-03-03 20:12] LABS: Glucose,Whole Blood 367 mg/dL (75-99)
[2020-03-03] MEDS: ATORVASTATIN 80 MG TAB PO SCH (21:51)
[2020-03-03] MEDS: INSULIN DETEMIR (LEVEMIR) 100 UNIT/ML SYR SQ SCH (21:51)
[2020-03-03] MEDS: FOLIC ACID-VIT B COMPLEX-VIT C 1 CAP PO SCH (21:52)
[2020-03-04] MEDS: HEPARIN SOD,PORK IN 0.45% NACL 25,000 UNIT in 0.45% NACL 1 250ML.BAG IV SCH (05:43)
[2020-03-04 06:11] LABS: Glucose,Whole Blood 174 mg/dL (75-99)
[2020-03-04] MEDS: LEVOTHYROXINE 50 MCG TAB PO SCH (06:55)
[2020-03-04] MEDS: carvediloL 3.125 MG TAB PO SCH (06:55)
[2020-03-04] MEDS: INSULIN ASPART (NovoLOG) 100 UNIT/ML VIAL SQ SCH ×2 (06:55→12:35)
[2020-03-04 08:05] LABS: Albumin 2.7 g/dL (3.5-5.0); Calcium 9.2 mg/dL (8.4-10.2); Potassium 3.9 mmol/L (3.5-5.1); Total Bilirubin 1.1 mg/dL (0.2-1.3); Total Protein 6.1 g/dL (6.3-8.2)
[2020-03-04 08:18] LABS: Anisocytosis Slight; Basophils % (A) 1 %; Eosinophils # (A) 0.1 k/uL (0-0.7); Eosinophils % (A) 2 %; HCT 37.7 % (34.0-46.0); HGB 11.4 gm/dL (11.4-16.0); Hypochromasia Moderate; Lymphocytes # (A) 0.5 k/uL (1.0-4.8); Lymphocytes % (A) 8 %; MCH 29.1 pg (25.0-35.0); MCHC 30.3 g/dL (31.0-37.0); MCV 96.2 fL (80.0-100.0); Macrocytosis Slight; Monocytes # (A) 0.3 k/uL (0-1.0); Monocytes % (A) 5 %; Neutrophils # (A) 4.9 k/uL (1.3-7.7); Neutrophils % (A) 82 %; Platelet Count 110 k/uL (150-450); RBC 3.92 m/uL (3.80-5.40); RDW 16.5 % (11.5-15.5); WBC 5.9 k/uL (3.8-10.6)
[2020-03-04 08:20] LABS: INR 2.2 (<1.2); Partial Thromboplastin Time 39.2 sec (22.0-30.0); Prothrombin Time 21.6 sec (9.0-12.0)
[2020-03-04] MEDS: DOCUSATE 100 MG CAP PO SCH (10:04)
[2020-03-04] MEDS: FUROSEMIDE 80 MG TAB PO SCH (10:04)
[2020-03-04] MEDS: ASPIRIN 81 MG PO SCH (10:04)
[2020-03-04] MEDS: ESCITALOPRAM 20 MG TAB PO SCH (10:04)
[2020-03-04] MEDS: CALCIUM ACETATE 667 MG TAB PO SCH ×2 (10:04→12:37)
[2020-03-04] MEDS: HYDROcodone/APAP 10-325MG 1 EACH TAB PO PRN (10:04)
[2020-03-04] MEDS: FOLIC ACID-VIT B COMPLEX-VIT C 1 CAP PO SCH (10:05)
[2020-03-04] MEDS: CLOPIDOGREL 75 MG TAB PO SCH (10:05)
--- NOTE | 2020-03-04 10:21 | P.PN ---
Subjective Progress Note Date: 03/03/20 This is a 64-year-old obese female patient of paty, Dr. JAE Jc, and Dr. Talley with multiple medical problem was known to have end-stage kidney disease on hemodialysis Friday, coronary artery disease and prior coronary artery stenting, diabetes type 2 insulin requiring, dyslipidemia, history of permanent pacemaker. Patient is a long-term resident at [facility] developed to have COVID-19 during an outbreak that affected [facility] on [facility] and she was sent to [facility] for evaluation and treatment and she eventually was sent back to [facility] on the [place] however she became very weak and has not gotten back to her baseline , she was sent to her HD and she has nt been eating or drinking with severe change in mental status, she was directed to go to the ER at [facility] where she was found to have DKA and slight elevation in her Troponn-I suggestive of NSTEMI, she was initially started on insulin drip and her gap since was closed and she was transitioned to her Lantus and SSI, she was seeen in consultation by cardiology , Nephrology and Neurology and she was admitted to the hospital for treatment. 03/01: Patient is more awake and alert today. She is undergoing hemodialysis today. Patient has been followed by cardiology and pacemaker was interrogated finding frequent episodes of atrial fibrillation. Patient is on heparin drip and started on Coumadin by cardiology. Echocardiogram reveals EF of 35-40%, moderate concentric left ventricular hypertrophy, mild aortic valve sclerosis, mild mitral regurgitation, moderate tricuspid regurgitation, moderate pulmonary hypertension. EEG is abnormal with slowing consistent with toxic metabolic encephalopathy due to diffuse structural brain abnormality. No epileptiform activity. Patient is not requiring oxygen. Pulse ox 99% on room air, afebrile, heart rate 60 and blood pressure 136/61. Hemoglobin 11.4. Sodium 135, potassium 4.0. BUN 41 and creatinine 4.92. Patient's hypoglycemia today at lunch with blood sugar of 59. Levemir decreased to 16 units at bedtime. 03/02: Patient remains on IV heparin and started on Coumadin, pharmacy dosing. Cardiology has signed off her case. Treatment monitor his been atrial fibrillation with controlled rate. She has been afebrile, heart rate 60, blood pressure 140/63, pulse ox 96% on room air. Repeat lab work reveals platelet count 129. INR today 1.2. Sodium 132, potassium 3.9, chloride 96, CO2 31, BUN 21 and creatinine 3.07. Blood sugars in the 200s. Patient is scheduled for hemodialysis tomorrow. Levemir will be increased back to 18 units at bedtime. Patient continues to have some confusion and not back to her baseline. 03/03: Patient sitting up in bed is more awake and more alert today she is more coherent, she is eating her dinner, she denies any chest pain, shortness breath, she has no abdominal pain, she just had a bowel movement, she is generally weak from Covid and from recurrent hospitalization, the plan is to transfer the patient back to [facility] on the [place] on Friday. Objective - Vital Signs Vital signs: Vital Signs Temp 97.6 F 03/03/20 13:15 Pulse 65 03/03/20 13:15 Resp 16 03/03/20 13:15 BP 110/71 03/03/20 13:15 Pulse Ox 100 03/03/20 07:55 Intake & Output 03/02/20 03/03/20 03/03/20 18:59 06:59 18:59 Intake Total 563.614 98.481 711.401 Output Total 1000 Balance 563.614 98.481 -288.599 Weight 95.5 kg 93.5 kg Intake: Intake, IV Titration 178.614 98.481 51.401 Amount Heparin Sod,Pork in 0.45% 178.614 98.481 51.401 NaCl 25,000 unit In 0.45 % NaCl 1 250ml.bag @ 18 UNITS/KG/HR 17.203 mls/hr IV .[id number] [facility] Rx#: [id number] Oral 385 660 Output: Hemodialysis 1000 Other: # Voids 0 0 0 # Bowel Movements 1 0 - Exam Review of Systems Constitutional: Reports anorexia, Reports chronic pain, Reports fatigue, Reports lethargy, Reports malaise, Reports weakness, Reports weight loss Eyes: denies blurred vision, denies bulging eye, denies decreased vision Cardiovascular: Reports decreased exercise tolerance, Reports dyspnea on exertion, Reports shortness of breath, Denies chest pain, Denies lightheadedness, Denies rapid heart beat, Denies syncope Respiratory: Reports sleep apnea, Denies congestion, Denies cough, Denies cough with sputum, Denies home oxygen, Denies snoring, Denies wheezing Gastrointestinal: Reports abdominal pain, Reports loss of appetite, Reports nausea, Denies belching, Denies bloating, Denies BRBPR, Denies change in bowel habits, Denies heartburn, Denies melena, Denies vomiting Genitourinary: Denies dysuria, Denies nocturia Menstruation: Reports postmenopausal Musculoskeletal: Reports atrophy, Reports fractures, Reports frequent falls, Reports gait dysfunction, Reports low back pain, Reports morning stiffness Musculoskeletal: absent: ankle pain, ankle stiffness, ankle swelling, elbow pain, elbow stiffness, elbow swelling, foot pain, foot stiffness, foot swelling, hand pain, hand stiffness, hand swelling, hip pain, hip stiffness, hip swelling, knee pain, knee stiffness, knee swelling, shoulder pain, shoulder stiffness, shoulder swelling, wrist pain, wrist stiffness, wrist swelling Integumentary: Denies pruritus, Denies rash Neurological: Reports burning pain, Reports change in speech, Reports confusion, Reports numbness, Reports sensory deficit, Reports weakness Psychiatric: Reports anxiety, Reports confusion, Reports depression, Denies sadness/tearfulness, Denies sleep disturbances, Denies suicidal ideation Endocrine: Reports fatigue, Reports nocturia Physical examination: General: 64-year-old female who is laying down in bed appears to be very weak does not appear to be in acute distress at this point in time. HEENT: Head is atraumatic, normocephalic, pupils were equal round reactive to light and recommendation, extraocular muscle movement were intact, sclera duncan cteric, conjunctivae were pale, mucous membranes of the mouth are somewhat dry. Neck: Supple, no JVP, decreased carotid upstroke bilaterally, no lymphadenopathy. Chest: Decreased breath sounds at the bases, few rhonchi, no extremity wheezes, no chest wall tenderness, no intercostal retractions. Heart: First heart sound is depressed, second heart sounds normal, there is systolic ejection murmur 2/6 located in the left sternal border. Abdomen: Soft, nontender, nondistended, positive bowel sounds. Extremities: There is no edema no calf tenderness DP +1 bilaterally. Neurologic examination: Patient is awake alert and oriented 2, cranial nerves III-12 appear grossly intact, muscle power were 4 out of 5 in upper extremities and 3 out of 5 in bilateral lower extremities, deep tendon reflexes were depressed bilaterally, there is also neuropathic changes to both lower extremity with decreased sensation. - Labs CBC & Chem 7: 03/04/20 07:24 03/04/20 07:24 Labs: Abnormal Lab Results - Last 24 Hours (Table) 03/02/20 03/02/20 03/03/20 Range/Units 16:58 19:58 02:38 PT (9.0-12.0) sec INR (<1.2) APTT (22.0-30.0) sec Sodium 132 L (137-145) mmol/L Chloride 95 L (98-107) mmol/L Carbon Dioxide 31 H (22-30) mmol/L BUN 31 H (7-17) mg/dL Creatinine 4.08 H (0.52-1.04) mg/dL Glucose 62 L (74-99) mg/dL POC Glucose (mg/dL) 395 H 234 H (75-99) mg/dL 03/03/20 03/03/20 03/03/20 Range/Units 02:38 06:16 11:25 PT 14.2 H (9.0-12.0) sec INR 1.4 H (<1.2) APTT 82.9 H 70.1 H (22.0-30.0) sec Sodium (137-145) mmol/L Chloride (98-107) mmol/L Carbon Dioxide (22-30) mmol/L BUN (7-17) mg/dL Creatinine (0.52-1.04) mg/dL Glucose (74-99) mg/dL POC Glucose (mg/dL) 119 H (75-99) mg/dL 03/03/20 03/03/20 03/03/20 Range/Units 11:54 12:10 15:17 PT (9.0-12.0) sec INR (<1.2) APTT (22.0-30.0) sec Sodium (137-145) mmol/L Chloride (98-107) mmol/L Carbon Dioxide (22-30) mmol/L BUN (7-17) mg/dL Creatinine (0.52-1.04) mg/dL Glucose (74-99) mg/dL POC Glucose (mg/dL) 64 L 73 L 147 H (75-99) mg/dL Microbiology - Last 24 Hours (Table) 12/14/20 12:59 Blood Culture - Preliminary Blood No Growth after 96 hours Assessment and Plan Assessment: 1. Severe metabolic enecephalopathy due to COVID-19 , DKA and NSTEMI. Continue Levemir and SSI, we will continue with heparin drip and cardiology has signed off and we will continue with ASA 81 mg orally daily, Plavix 75 mg orally daily, Coreg 3.125 mg po bid, Lipitor 80 mg orally daily and we will continue with conservative treatment at this point as the patient has multiple comorbid conditions and she will be best served with conservative approach. 2. NSTEMI. we will continue with ASA 81 mg orally daily, PLavix 75 mg orally daily and Lipitor 80 mg orally daily and add small dose of Coreg 3.125 mg orally bid, cardiology evaluation. 3. DKA. we will transition from insulin drip into Levemir and SSI, her gap is closed and patient does not have any acidosis. 4. End-stage renal disease on hemodialysis Friday. Nephrology consult appreciated Continue Nephrocaps, Amandeep. 5. History of coronary artery disease with prior stenting of the LAD. We will continue the patient on aspirin 81 mg once every day, Plavix 75 mg orally once every day, Lipitor 80 mg once every day, added Coreg 3.125 mg orally bid. 6. Hyponatremia likely related to hypovolemia post hemodialysis yesterday. Monitor the patient CMP. 7. Anemia of chronic kidney disease. We will check the patient's iron and ferritin level along with total iron-binding capacity. 8. Hypertension and hypertensive cardiovascular disease. Continue amlodipine2.5 mg daily and add Coreg 3.125 mg orally bid. 9. Hyperlipidemia. Continue atorvastatin 80 mg at bedtime 10. Gastroesophageal reflux disease and GI prophylaxis. we will continue with Protonix 40 mg orally daily. 11. Diabetes mellitus type 2, insulin requiring. We will increase Levemir back to 18 units at bedtime along with the Humalog per sliding scale insulin. 12. Generalized anxiety disorder and recurrent depression. Continue Lexapro 20 mg orally once every day as well as Ativan 1 mg orally twice every day. 13. Hypothyroidism. Continue patient on levothyroxine 175 g orally once every day. 14. History of some symptomatic bradycardia status post permanent pacemaker placement. Stable. 15. DVT prophylaxis. Start the patient on heparin drip. 16. GI prophylaxis. we will contiue with Protonix 40 mg orally daily. 17. Medical debility. Physical therapy evaluation. 18. New-onset atrial fibrillation, paroxysmal atrial fibrillation. Cardiology consult appreciated. Patient started on Coumadin, continue heparin drip, Coreg 3.125 mg twice daily 19. Patient is full code. 20. Discharge plan: Return to [facility] on Friday.
--- NOTE | 2020-03-04 10:25 | P.DS ---
Providers Date of admission: 02/28/20 14:13 Expected date of discharge: 03/04/20 Attending physician: Kimberli Gar Consults: 02/28/20 14:58 Consult Physician Routine Consulting Provider: Tate Souza Consult Reason/Comments: ESRD Do you want consulting provider notified?: Yes 02/29/20 11:08 Consult Physician Routine Consulting Provider: Elaine Snider Consult Reason/Comments: Encephalopathy Do you want consulting provider notified?: Yes Primary care physician: Kimberli Gar Hospital Course: This is a 64-year-old obese female patient of paty, Dr. JAE Jc, and Dr. Talley with multiple medical problem was known to have end-stage kidney disease on hemodialysis Friday, coronary artery disease and prior coronary artery stenting, diabetes type 2 insulin requiring, dyslipidemia, history of permanent pacemaker. Patient is a long-term resident at [facility] developed to have COVID-19 during an outbreak that affected [facility] on [facility] and she was sent to [facility] for evaluation and treatment and she eventually was sent back to [facility] on the [place] however she became very weak and has not gotten back to her baseline , she was sent to her HD and she has nt been eating or drinking with severe change in mental status, she was directed to go to the ER at [facility] where she was found to have DKA and slight elevation in her Troponn-I suggestive of NSTEMI, she was initially started on insulin drip and her gap since was closed and she was transitioned to her Lantus and SSI, she was seeen in consultation by cardiology , Nephrology and Neurology and she was admitted to the hospital for treatment. 03/01: Patient is more awake and alert today. She is undergoing hemodialysis today. Patient has been followed by cardiology and pacemaker was interrogated finding frequent episodes of atrial fibrillation. Patient is on heparin drip and started on Coumadin by cardiology. Echocardiogram reveals EF of 35-40%, moderate concentric left ventricular hypertrophy, mild aortic valve sclerosis, mild mitral regurgitation, moderate tricuspid regurgitation, moderate pulmonary hypertension. EEG is abnormal with slowing consistent with toxic metabolic encephalopathy due to diffuse structural brain abnormality. No epileptiform activity. Patient is not requiring oxygen. Pulse ox 99% on room air, afebrile, heart rate 60 and blood pressure 136/61. Hemoglobin 11.4. Sodium 135, potassium 4.0. BUN 41 and creatinine 4.92. Patient's hypoglycemia today at lunch with blood sugar of 59. Levemir decreased to 16 units at bedtime. 03/02: Patient remains on IV heparin and started on Coumadin, pharmacy dosing. Cardiology has signed off her case. Treatment monitor his been atrial fibrillation with controlled rate. She has been afebrile, heart rate 60, blood pressure 140/63, pulse ox 96% on room air. Repeat lab work reveals platelet count 129. INR today 1.2. Sodium 132, potassium 3.9, chloride 96, CO2 31, BUN 21 and creatinine 3.07. Blood sugars in the 200s. Patient is scheduled for hemodialysis tomorrow. Levemir will be increased back to 18 units at bedtime. Patient continues to have some confusion and not back to her baseline. 03/03: Patient sitting up in bed is more awake and more alert today she is more coherent, she is eating her dinner, she denies any chest pain, shortness breath, she has no abdominal pain, she just had a bowel movement, she is generally weak from Covid and from recurrent hospitalization, the plan is to transfer the patient back to [facility] on Friday. discharge diagnoses: 1. Severe metabolic enecephalopathy due to COVID-19 , DKA and NSTEMI.. 2. NSTEMI. 3. DKA. 4. End-stage renal disease on hemodialysis Friday. 5. History of coronary artery disease with prior stenting of the LAD. 6. Hyponatremia likely related to hypovolemia . 7. Anemia of chronic kidney disease. 8. Hypertension and hypertensive cardiovascular disease. 9. Hyperlipidemia. 10. Gastroesophageal reflux disease and GI prophylaxis. 11. Diabetes mellitus type 2, insulin requiring. 12. Generalized anxiety disorder and recurrent depression. 13. Hypothyroidism. 14. History of some symptomatic bradycardia status post permanent pacemaker placement. 15. DVT prophylaxis. 16. GI prophylaxis. 17. Medical debility. Physical therapy evaluation. 18. New-onset atrial fibrillation. 19. Medical debility. Patient Condition at Discharge: Stable Plan - Discharge Summary Discharge Rx Participant: No New Discharge Prescriptions: No Action Atorvastatin [Lipitor] 80 mg PO HS@2100 Calcium Acetate [PhosLo] 2,001 mg PO AC-TID@,,17 Acetaminophen Tab [Tylenol] 500 mg PO Q6H PRN PRN Reason: Pain Docusate Sodium [Dok] 100 mg PO BID@0900,2099 Folic Acid-Vit B Complex-Vit C [Nephrocaps] 1 cap PO MOWEFR@2100 Folic Acid-Vit B Complex-Vit C [Nephrocaps] 1 mg PO SUTUTHSA@0900 Melatonin 10 mg PO HS@2100 Escitalopram [Lexapro] 20 mg PO DAILY@0900 Nitroglycerin Sl Tabs [Nitrostat] 0.4 mg SUBLINGUAL Q5M PRN tab PRN Reason: Chest Pain amLODIPine [Norvasc] 2.5 mg PO DAILY@0900 Clopidogrel [Plavix] 75 mg PO DAILY@0900 Levothyroxine Sodium [Synthroid] 175 mcg PO DAILY@0600 Sodium Polystyrene Sulfonate 15 gm PO SUTUTHSA@0900 Lidocaine-Prilocaine Cream [Emla Cream 2.5%/2.5%] 1 applic TOPICAL TUTHSA@1030 Furosemide [Lasix] 80 mg PO DAILY@0900 LORazepam [Ativan] 1 mg PO BID@0900,2100 #6 tab Aspirin 81 mg PO DAILY@0900 Hydrocodone/Acetaminophen [Vernal 10-325] 1 tab PO Q12H PRN PRN Reason: pain INSULIN LISPRO (humaLOG) [humaLOG] See Protocol SQ ACHS Magnesium Hydroxide [Milk of Magnesia] 2,400 mg PO DAILY PRN PRN Reason: Constipation Sennosides [Senna] 8.6 mg PO DAILY PRN PRN Reason: Constipation Discharge Medication List Atorvastatin [Lipitor] 80 mg PO HS@209912/27/16 [History] Calcium Acetate [PhosLo] 2,001 mg PO AC-TID@08,12,17 09/02/18 [History] Acetaminophen Tab [Tylenol] 500 mg PO Q6H PRN 01/11/19 [History] Docusate Sodium [Dok] 100 mg PO BID@0900,209901/11/19 [History] Escitalopram [Lexapro] 20 mg PO DAILY@0900 04/02/19 [History] Folic Acid-Vit B Complex-Vit C [Nephrocaps] 1 cap PO MOWEFR@209904/02/19 [History] Folic Acid-Vit B Complex-Vit C [Nephrocaps] 1 mg PO SUTUTHSA@0900 01/17/20 [History] Melatonin 10 mg PO HS@2100 04/02/19 [History] Nitroglycerin Sl Tabs [Nitrostat] 0.4 mg SUBLINGUAL Q5M PRN tab 04/06/19 [Rx] Clopidogrel [Plavix] 75 mg PO DAILY@0904/09/19 [History] amLODIPine [Norvasc] 2.5 mg PO DAILY@0904/09/19 [History] Levothyroxine Sodium [Synthroid] 175 mcg PO DAILY@0611/05/19 [History] Sodium Polystyrene Sulfonate 15 gm PO SUTUTHSA@0911/05/19 [History] Lidocaine-Prilocaine Cream [Emla Cream 2.5%/2.5%] 1 applic TOPICAL TUTHSA@1030 11/23/19 [History] Furosemide [Lasix] 80 mg PO DAILY@0901/28/20 [History] LORazepam [Ativan] 1 mg PO BID@0900,2100 #6 tab 02/02/20 [Rx] Aspirin 81 mg PO DAILY@0902/28/20 [History] Hydrocodone/Acetaminophen [Vernal 10-325] 1 tab PO Q12H PRN 02/28/20 [History] INSULIN LISPRO (humaLOG) [humaLOG] See Protocol SQ ACHS 02/28/20 [History] Magnesium Hydroxide [Milk of Magnesia] 2,400 mg PO DAILY PRN 02/28/20 [History] Sennosides [Senna] 8.6 mg PO DAILY PRN 02/28/20 [History] Follow up Appointment(s)/Referral(s): Jeromy Smith MD [STAFF PHYSICIAN] - 2 Weeks Kimberli Gar MD [Primary Care Provider] - 1-2 days
[2020-03-04 12:00] VITALS: BP 130/80; PULSE 90; TEMP 98.1
[2020-03-04 12:03] LABS: Glucose,Whole Blood 176 mg/dL (75-99)
[2020-03-04] MEDS: LIDOCAINE-PRILOCAINE 2.5-2.5% CREAM 5 GM TUBE TOPICAL SCH (12:51)
--- NOTE | 2020-03-04 13:35 | P.PN ---
Subjective Progress Note Date: 03/04/20 Follow-up for ESRD. Objective - Vital Signs Vital signs: Vital Signs Temp 98.1 F 03/04/20 08:00 Pulse 90 03/04/20 08:00 Resp 16 03/04/20 08:00 BP 130/80 03/04/20 08:00 Pulse Ox 99 03/04/20 08:00 Intake & Output 03/03/20 03/04/20 03/04/20 18:59 06:59 18:59 Intake Total 742.066 65.262 520.868 Output Total 1000 0 Balance -257.934 65.262 520.868 Weight 93.2 kg Intake: Intake, IV Titration 82.066 65.262 20.868 Amount Heparin Sod,Pork in 0.45% 82.066 65.262 20.868 NaCl 25,000 unit In 0.45 % NaCl 1 250ml.bag @ 18 UNITS/KG/HR 17.203 mls/hr IV .[id number] [facility] Rx#: [id number] Oral 660 500 Output: Stool 0 Hemodialysis 1000 Other: # Voids 0 0 # Bowel Movements 0 - Exam Defer to primary team exam - Labs CBC & Chem 7: 03/04/20 07:24 03/04/20 07:24 Labs: Abnormal Lab Results - Last 24 Hours (Table) 03/03/20 03/03/20 03/03/20 Range/Units 15:17 16:51 17:39 MCHC (31.0-37.0) g/dL RDW (11.5-15.5) % Plt Count (150-450) k/uL Lymphocytes # (1.0-4.8) k/uL PT (9.0-12.0) sec INR (<1.2) APTT 38.4 H (22.0-30.0) sec Sodium (137-145) mmol/L Carbon Dioxide (22-30) mmol/L BUN (7-17) mg/dL Creatinine (0.52-1.04) mg/dL Glucose (74-99) mg/dL POC Glucose (mg/dL) 147 H 149 H (75-99) mg/dL AST (14-36) U/L Total Protein (6.3-8.2) g/dL Albumin (3.5-5.0) g/dL 03/03/20 03/04/20 03/04/20 Range/Units 20:11 01:05 06:07 MCHC (31.0-37.0) g/dL RDW (11.5-15.5) % Plt Count (150-450) k/uL Lymphocytes # (1.0-4.8) k/uL PT (9.0-12.0) sec INR (<1.2) APTT 81.6 H (22.0-30.0) sec Sodium (137-145) mmol/L Carbon Dioxide (22-30) mmol/L BUN (7-17) mg/dL Creatinine (0.52-1.04) mg/dL Glucose (74-99) mg/dL POC Glucose (mg/dL) 367 H 174 H (75-99) mg/dL AST (14-36) U/L Total Protein (6.3-8.2) g/dL Albumin (3.5-5.0) g/dL 03/04/20 03/04/20 03/04/20 Range/Units 07:24 07:24 07:24 MCHC 30.3 L (31.0-37.0) g/dL RDW 16.5 H (11.5-15.5) % Plt Count 110 L (150-450) k/uL Lymphocytes # 0.5 L (1.0-4.8) k/uL PT 21.6 H (9.0-12.0) sec INR 2.2 H (<1.2) APTT 39.2 H (22.0-30.0) sec Sodium 136 L (137-145) mmol/L Carbon Dioxide 31 H (22-30) mmol/L BUN 24 H (7-17) mg/dL Creatinine 3.49 H (0.52-1.04) mg/dL Glucose 158 H (74-99) mg/dL POC Glucose (mg/dL) (75-99) mg/dL AST 37 H (14-36) U/L Total Protein 6.1 L (6.3-8.2) g/dL Albumin 2.7 L (3.5-5.0) g/dL 03/04/20 Range/Units 12:02 MCHC (31.0-37.0) g/dL RDW (11.5-15.5) % Plt Count (150-450) k/uL Lymphocytes # (1.0-4.8) k/uL PT (9.0-12.0) sec INR (<1.2) APTT (22.0-30.0) sec Sodium (137-145) mmol/L Carbon Dioxide (22-30) mmol/L BUN (7-17) mg/dL Creatinine (0.52-1.04) mg/dL Glucose (74-99) mg/dL POC Glucose (mg/dL) 176 H (75-99) mg/dL AST (14-36) U/L Total Protein (6.3-8.2) g/dL Albumin (3.5-5.0) g/dL Microbiology - Last 24 Hours (Table) 02/28/20 12:59 Blood Culture - Preliminary Blood No Growth after 96 hours Assessment and Plan Assessment: #1 Covid 19 pneumonia #2 ESRD, MWF schedule. #3 hypertension with ESRD #4 metabolic bone disease with ESRD #5 anemia with ESRD #6 encephalopathy possibly related to DKA. Better. #7 systolic CHF EF of 35% Plan: #1 last hemodialysis on Friday. Currently going to Covid 19 unit on TTS sc hedule. #2 ESRD medications
[2020-03-04] MEDS ORDERED: WARFARIN 2.5 MG TAB PO ONE (18:00)
== END 2020-03-04 14:44 | DRG 177 ==
LOC: EC 12:32 → 3SCARD 14:13
PROVIDERS: ADMIT Internal Medicine; ATTEND Internal Medicine
PROC: 5A1D70Z Performance of Urinary Filtration, Intermittent, Less than 6 Hours Per Day (ICD-10-PCS; principal; 2020-02-28)
DX: U07.1 COVID-19 (principal); J12.89 Other viral pneumonia; E11.10 Type 2 diabetes mellitus with ketoacidosis without coma; G92 Toxic encephalopathy; I21.4 Non-ST elevation (NSTEMI) myocardial infarction; N18.6 End stage renal disease; E87.1 Hypo-osmolality and hyponatremia; I13.2 Hypertensive heart and chronic kidney disease with heart failure and with stage 5 chronic kidney disease, or end stage renal disease; I45.2 Bifascicular block; I50.22 Chronic systolic (congestive) heart failure; E11.649 Type 2 diabetes mellitus with hypoglycemia without coma; I27.20 Pulmonary hypertension, unspecified; I49.5 Sick sinus syndrome; D63.1 Anemia in chronic kidney disease; Z86.74 Personal history of sudden cardiac arrest; F03.90 Unspecified dementia, unspecified severity, without behavioral disturbance, psychotic disturbance, mood disturbance, and anxiety; E11.22 Type 2 diabetes mellitus with diabetic chronic kidney disease; F31.9 Bipolar disorder, unspecified; I48.0 Paroxysmal atrial fibrillation; Z99.2 Dependence on renal dialysis; K21.9 Gastro-esophageal reflux disease without esophagitis; E03.9 Hypothyroidism, unspecified; E66.9 Obesity, unspecified; E78.5 Hyperlipidemia, unspecified; E86.1 Hypovolemia; F41.1 Generalized anxiety disorder; I08.3 Combined rheumatic disorders of mitral, aortic and tricuspid valves; I25.10 Atherosclerotic heart disease of native coronary artery without angina pectoris; I25.2 Old myocardial infarction; I25.5 Ischemic cardiomyopathy; M19.90 Unspecified osteoarthritis, unspecified site; E83.89 Other disorders of mineral metabolism; E55.9 Vitamin D deficiency, unspecified; R53.81 Other malaise; Z74.01 Bed confinement status; Z79.02 Long term (current) use of antithrombotics/antiplatelets; Z79.4 Long term (current) use of insulin; Z79.82 Long term (current) use of aspirin; Z79.890 Hormone replacement therapy; Z79.899 Other long term (current) drug therapy; Z86.73 Personal history of transient ischemic attack (TIA), and cerebral infarction without residual deficits; Z90.710 Acquired absence of both cervix and uterus; Z98.84 Bariatric surgery status; Z96.41 Presence of insulin pump (external) (internal); Z95.5 Presence of coronary angioplasty implant and graft; Z95.0 Presence of cardiac pacemaker; Z88.0 Allergy status to penicillin; Z88.8 Allergy status to other drugs, medicaments and biological substances; Z91.041 Radiographic dye allergy status; Z90.49 Acquired absence of other specified parts of digestive tract; Z87.19 Personal history of other diseases of the digestive system; Z90.89 Acquired absence of other organs; Z87.898 Personal history of other specified conditions; Z98.42 Cataract extraction status, left eye; Z98.41 Cataract extraction status, right eye; Z96.1 Presence of intraocular lens; Z68.31 Body mass index [BMI] 31.0-31.9, adult; Z86.14 Personal history of Methicillin resistant Staphylococcus aureus infection; Z86.19 Personal history of other infectious and parasitic diseases; Z87.81 Personal history of (healed) traumatic fracture; Z82.49 Family history of ischemic heart disease and other diseases of the circulatory system; Z83.3 Family history of diabetes mellitus; Z84.1 Family history of disorders of kidney and ureter
CPT/HCPCS: 36415; 70450; 71045; 80048; 80051; 80053; 82009; 82140; 82565; 82803; 82947; 83605; 83735; 84100; 84484; 84520; 85025; 85610; 85730; 87040; 87635; 90935; 93005; 93306; 95816; 96365; 96366; 99291

== ENCOUNTER 2020-04-03 14:47 | Inpatient (IN) | payer MEDICARE, OTHER ==
[2020-04-03] MEDS ORDERED: ACETAMINOPHEN TAB 500 MG TAB PO STA (14:56)
--- NOTE | 2020-04-03 15:00 | ED ---
General Adult HPI - General Chief complaint: Altered Mental Status Stated complaint: Altered Time Seen by Provider: 04/03/20 14:49 Source: patient, RN notes reviewed, old records reviewed Mode of arrival: EMS Limitations: altered mental status - History of Present Illness Initial comments: Patient is a pleasant 64-year-old female presenting to the emergency department from custodial with reported altered mental status. Limited history provided. A molina is a very poor historian and also offers very limited history. Patient states she does not feel well further history is limited. Onset limited. Severity and baseline are unknown. Unclear if history of similar symptoms previously. - Related Data Home Medications Medication Instructions Recorded Confirmed Atorvastatin [Lipitor] 80 mg PO HS@209912/27/16 04/03/20 Calcium Acetate [PhosLo] 2,001 mg PO AC-TID@09/02/18 04/03/20 Acetaminophen Tab [Tylenol] 500 mg PO Q6H PRN 01/11/19 04/03/20 Docusate Sodium [Dok] 100 mg PO BID@01/11/19 04/03/20 Escitalopram [Lexapro] 20 mg PO DAILY@89904/02/19 04/03/20 Folic Acid-Vit B Complex-Vit C 1 cap PO MOWEFR@209904/02/19 04/03/20 [Nephrocaps] Folic Acid-Vit B Complex-Vit C 1 mg PO SUTUTHSA@89904/02/19 04/03/20 [Nephrocaps] Melatonin 10 mg PO HS@209904/02/19 04/03/20 Clopidogrel [Plavix] 75 mg PO DAILY@89904/09/19 04/03/20 amLODIPine [Norvasc] 2.5 mg PO DAILY@89904/09/19 04/03/20 Levothyroxine Sodium [Synthroid] 175 mcg PO DAILY@59911/05/19 04/03/20 Sodium Polystyrene Sulfonate 15 gm PO SUTUTHSA@89911/05/19 04/03/20 Lidocaine-Prilocaine Cream [Emla 1 applic TOPICAL MOWEFR@82911/23/19 04/03/20 Cream 2.5%/2.5%] Furosemide [Lasix] 80 mg PO DAILY@89901/28/20 04/03/20 Aspirin 81 mg PO DAILY@0900 02/28/20 04/03/20 Hydrocodone/Acetaminophen [[place] 1 tab PO Q12H PRN 02/28/20 04/03/20 10-325] INSULIN LISPRO (humaLOG) [humaLOG] See Protocol SQ ACHS 02/28/20 04/03/20 Magnesium Hydroxide [Milk of 2,400 mg PO DAILY PRN 02/28/20 04/03/20 Magnesia] Sennosides [Senna] 8.6 mg PO DAILY PRN 02/28/20 04/03/20 INSULIN ASPART (NovoLOG) [NovoLOG 2 unit SQ ACHS PRN 04/03/20 04/03/20 (formulary)] Warfarin Sodium 4 mg PO DAILY@1700 04/03/20 04/03/20 carvediloL [Coreg] 3.125 mg PO BID@0900,1700 04/03/20 04/03/20 Previous Rx's Medication Instructions Recorded Nitroglycerin Sl Tabs [Nitrostat] 0.4 mg SUBLINGUAL Q5M PRN tab 04/06/19 Insulin Detemir (Levemir) [Levemir] 18 unit SQ HS syr 03/04/20 LORazepam [Ativan] 1 mg PO BID@0900,2100 #6 tab 03/04/20 Allergies Allergy/AdvReac Type Severity Reaction Status Date / Time adhesive Allergy Rash/Hives Verified 04/03/20 15:58 Penicillins Allergy Rash/Hives Verified 04/03/20 15:58 Iodinated Contrast Media AdvReac KIDNEY Verified 04/03/20 15:58 [Iodinated Contrast- Oral FAILURE and IV Dye] metformin AdvReac SUGAR Verified 04/03/20 15:58 LEVEL INCREASE Review of Systems ROS Statement: Those systems with pertinent positive or pertinent negative responses have been documented in the HPI. ROS Other: All systems not noted in ROS Statement are negative. Constitutional: Denies: fever Eyes: Denies: eye pain ENT: Denies: ear pain Respiratory: Denies: cough, dyspnea Cardiovascular: Denies: chest pain Endocrine: Reports: fatigue Gastrointestinal: Denies: abdominal pain Genitourinary: Denies: dysuria Musculoskeletal: Denies: back pain Skin: Denies: rash Neurological: Denies: headache Past Medical History Past Medical History: Coronary Artery Disease (CAD), Chest Pain / Angina, Dementia, Diabetes Mellitus, Dialysis, Hyperlipidemia, Hypertension, Liver Disease, Myocardial Infarction ([place]), Osteoarthritis (OA), Thyroid Disorder Additional Past Medical History / Comment(s): multiple [place]'s x18. ischemic cardiomyopathy. 12/29/15 STRESS WNL, ALLERGIC rhinitis,[place], CARDIO-PULMONARY ARREST 07/05/14 vertigo, hypertensive nephrosclerosis, Hepatitis A,Vitamin D deficiency, constipation, hx of a cat bit, fall with broken pelvis Last Myocardial Infarction Date:: 09/2013 History of Any Multi-Drug Resistant Organisms: MRSA, VRE Date of last positivie culture/infection: 11/11/18-VRE; 09/27/17 MRSA MDRO Source:: Urine-VRE; Right Breast-MRSA Past Surgical History: Adenoidectomy, Appendectomy, Cholecystectomy, Heart Catheterization With Stent, Hysterectomy, Tonsillectomy Additional Past Surgical History / Comment(s): mary cataracts, LAP-BAND 2004, Laparoscopic cholecystectomy, FIBULA FX has metal pins in place,Left shoulder surgery, Hemodialysis Cataract bilateral with IOL, fistula and sx to" reroute it ",gets dialysis fri-fri-fri. has insulin pump. no bp on left, excisional debreidment rt lower ext., foot surgery Past Anesthesia/Blood Transfusion Reactions: Motion Sickness, Postoperative Nausea & Vomiting (PONV) Additional Past Anesthesia/Blood Transfusion Reaction / Comment(s): blood transfusion-pt stated they gave her medication for a reaction but does'nt rememebr what the reaction was Date of Last Stent Placement:: 2014 Past Psychological History: Anxiety, Bipolar, Depression Smoking Status: Never smoker Past Alcohol Use History: None Reported Past Drug Use History: None Reported - Past Family History Mother Family Medical History: Congestive Heart Failure (CHF), Diabetes Mellitus, Hypertension Father History Unknown: Yes Family Medical History: Diabetes Mellitus Brother(s) Family Medical History: Diabetes Mellitus, Hyperlipidemia Additional Family Medical History / Comment(s): Hypertension chronic kidney disease General Exam Limitations: no limitations General appearance: alert, in no apparent distress Head exam: Present: normocephalic Eye exam: Present: normal appearance, PERRL, EOMI ENT exam: Present: normal oropharynx Neck exam: Present: normal inspection. Absent: meningismus Respiratory exam: Present: normal lung sounds bilaterally. Absent: chest wall tenderness Cardiovascular Exam: Present: regular rate, normal rhythm GI/Abdominal exam: Present: soft. Absent: tenderness Extremities exam: Present: normal inspection Neurological exam: Present: alert Expanded Neurological exam: Present: protecting the airway, other (Patient states she does not ambulate) Patient oriented to: Present: person, place. Absent: time Motor strength exam: RUE: 4, LUE: 4, RLE: 2/1, LLE: 2/1 Eye Response: (4) open spontaneously Motor Response: (6) obeys commands Verbal Response: (4) confused conversation Psychiatric exam: Present: flat affect Skin exam: Present: normal color. Absent: rash Course Vital Signs 04/03/20 04/03/20 14:51 17:30 Temperature 100.3 F H Pulse Rate 63 69 Respiratory 16 16 Rate Blood Pressure 140/56 134/59 O2 Sat by Pulse 100 99 Oximetry EKG Findings - EKG Comments: EKG Findings:: Paced rhythm with a rate of 60. CO 360. QRS to 2. QT 560. QTC 560. Right axis. Wide-complex QRS. No acute ST change. Medical Decision Making - Medical Decision Making Patient reevaluated. Case discussed with Dr. Gar, who will admit his patient. He does request nephrology consult as well as cardiology. - Lab Data Result diagrams: 04/03/20 15:26 04/03/20 15:26 Lab Results 04/03/20 04/03/20 04/03/20 Range/Units 15:26 15:26 15:26 WBC 8.8 (3.8-10.6) k/uL RBC 3.47 L (3.80-5.40) m/uL Hgb 10.8 L (11.4-16.0) gm/dL Hct 32.4 L (34.0-46.0) % MCV 93.3 (80.0-100.0) fL MCH 31.1 (25.0-35.0) pg MCHC 33.3 (31.0-37.0) g/dL RDW 17.0 H (11.5-15.5) % Plt Count 183 D (150-450) k/uL MPV 7.9 Neutrophils % 72 % Lymphocytes % 11 % Monocytes % 6 % Eosinophils % 7 % Basophils % 1 % Neutrophils # 6.3 (1.3-7.7) k/uL Lymphocytes # 1.0 (1.0-4.8) k/uL Monocytes # 0.5 (0-1.0) k/uL Eosinophils # 0.6 (0-0.7) k/uL Basophils # 0.1 (0-0.2) k/uL Hypochromasia Slight Anisocytosis Slight PT 21.5 H (9.0-12.0) sec INR 2.2 H (<1.2) APTT 29.5 (22.0-30.0) sec Sodium 134 L (137-145) mmol/L Potassium 4.1 (3.5-5.1) mmol/L Chloride 98 (98-107) mmol/L Carbon Dioxide 26 (22-30) mmol/L Anion Gap 10 mmol/L BUN 39 H (7-17) mg/dL Creatinine 6.01 H (0.52-1.04) mg/dL Est GFR (CKD-EPI)AfAm 8 (>60 ml/min/1.73 sqM) Est GFR (CKD-EPI)NonAf 7 (>60 ml/min/1.73 sqM) Glucose 174 H (74-99) mg/dL Plasma Lactic Acid Dougie (0.7-2.0) mmol/L Calcium 10.1 (8.4-10.2) mg/dL Total Bilirubin 1.0 (0.2-1.3) mg/dL AST 25 (14-36) U/L ALT 14 (4-34) U/L Alkaline Phosphatase 100 (38-126) U/L Troponin I (0.000-0.034) ng/mL NT-Pro-B Natriuret Pep pg/mL Total Protein 6.5 (6.3-8.2) g/dL Albumin 2.9 L (3.5-5.0) g/dL Acetone, Qual Negative (Negative) Coronavirus (PCR) (Not Detectd) 04/03/20 04/03/20 04/03/20 Range/Units 15:26 15:26 15:26 WBC (3.8-10.6) k/uL RBC (3.80-5.40) m/uL Hgb (11.4-16.0) gm/dL Hct (34.0-46.0) % MCV (80.0-100.0) fL MCH (25.0-35.0) pg MCHC (31.0-37.0) g/dL RDW (11.5-15.5) % Plt Count (150-450) k/uL MPV Neutrophils % % Lymphocytes % % Monocytes % % Eosinophils % % Basophils % % Neutrophils # (1.3-7.7) k/uL Lymphocytes # (1.0-4.8) k/uL Monocytes # (0-1.0) k/uL Eosinophils # (0-0.7) k/uL Basophils # (0-0.2) k/uL Hypochromasia Anisocytosis PT (9.0-12.0) sec INR (<1.2) APTT (22.0-30.0) sec Sodium (137-145) mmol/L Potassium (3.5-5.1) mmol/L Chloride (98-107) mmol/L Carbon Dioxide (22-30) mmol/L Anion Gap mmol/L BUN (7-17) mg/dL Creatinine (0.52-1.04) mg/dL Est GFR (CKD-EPI)AfAm (>60 ml/min/1.73 sqM) Est GFR (CKD-EPI)NonAf (>60 ml/min/1.73 sqM) Glucose (74-99) mg/dL Plasma Lactic Acid Dougie 0.9 (0.7-2.0) mmol/L Calcium (8.4-10.2) mg/dL Total Bilirubin (0.2-1.3) mg/dL AST (14-36) U/L ALT (4-34) U/L Alkaline Phosphatase (38-126) U/L Troponin I 0.123 H* (0.000-0.034) ng/mL NT-Pro-B Natriuret Pep 24943 pg/mL Total Protein (6.3-8.2) g/dL Albumin (3.5-5.0) g/dL Acetone, Qual (Negative) Coronavirus (PCR) (Not Detectd) 04/03/20 Range/Units 17:50 WBC (3.8-10.6) k/uL RBC (3.80-5.40) m/uL Hgb (11.4-16.0) gm/dL Hct (34.0-46.0) % MCV (80.0-100.0) fL MCH (25.0-35.0) pg MCHC (31.0-37.0) g/dL RDW (11.5-15.5) % Plt Count (150-450) k/uL MPV Neutrophils % % Lymphocytes % % Monocytes % % Eosinophils % % Basophils % % Neutrophils # (1.3-7.7) k/uL Lymphocytes # (1.0-4.8) k/uL Monocytes # (0-1.0) k/uL Eosinophils # (0-0.7) k/uL Basophils # (0-0.2) k/uL Hypochromasia Anisocytosis PT (9.0-12.0) sec INR (<1.2) APTT (22.0-30.0) sec Sodium (137-145) mmol/L Potassium (3.5-5.1) mmol/L Chloride (98-107) mmol/L Carbon Dioxide (22-30) mmol/L Anion Gap mmol/L BUN (7-17) mg/dL Creatinine (0.52-1.04) mg/dL Est GFR (CKD-EPI)AfAm (>60 ml/min/1.73 sqM) Est GFR (CKD-EPI)NonAf (>60 ml/min/1.73 sqM) Glucose (74-99) mg/dL Plasma Lactic Acid Dougie (0.7-2.0) mmol/L Calcium (8.4-10.2) mg/dL Total Bilirubin (0.2-1.3) mg/dL AST (14-36) U/L ALT (4-34) U/L Alkaline Phosphatase (38-126) U/L Troponin I (0.000-0.034) ng/mL NT-Pro-B Natriuret Pep pg/mL Total Protein (6.3-8.2) g/dL Albumin (3.5-5.0) g/dL Acetone, Qual (Negative) Coronavirus (PCR) Not Detected (Not Detectd) - Radiology Data Radiology results: report reviewed (Computed tomography scan the brain similar to previous. No acute finding.), image reviewed (Chest x-ray questions some CHF.) Disposition Clinical Impression: CHF (congestive heart failure), Altered mental status Disposition: ADMITTED IP TO THIS HOSP Is patient prescribed a controlled substance at d/c from ED?: No Referrals: Kimberli Gar MD [Primary Care Provider] - 1-2 days Decision Time: 18:08
[2020-04-03] MEDS: SODIUM CHLORIDE 0.9% 1,000 ML IV SCH ×2 (15:07→19:07)
[2020-04-03 15:51] LABS: Anisocytosis Slight; Basophils # (A) 0.1 k/uL (0-0.2); Basophils % (A) 1 %; Eosinophils # (A) 0.6 k/uL (0-0.7); Eosinophils % (A) 7 %; HCT 32.4 % (34.0-46.0); HGB 10.8 gm/dL (11.4-16.0); Hypochromasia Slight; Lymphocytes % (A) 11 %; MCH 31.1 pg (25.0-35.0); MCHC 33.3 g/dL (31.0-37.0); MCV 93.3 fL (80.0-100.0); Mean Platelet Volume 7.9; Monocytes # (A) 0.5 k/uL (0-1.0); Monocytes % (A) 6 %; Neutrophils # (A) 6.3 k/uL (1.3-7.7); Neutrophils % (A) 72 %; RBC 3.47 m/uL (3.80-5.40); WBC 8.8 k/uL (3.8-10.6)
--- NOTE | 2020-04-03 16:02 | XR ---
EXAMINATION TYPE: XR chest 2V DATE OF EXAM: 04/03/2020 COMPARISON: 02/28/2020 HISTORY: 64-year-old female with fever, weakness, confusion TECHNIQUE: AP and lateral views FINDINGS: Marked lower thoracic kyphosis. Heart is enlarged. Right anterior chest wall pacemaker generator with right atrial and right ventricular leads. Heart borderline to mildly enlarged. Bilateral hilar promi nence is unchanged, likely large central pulmonary arteries. Mild interstitial prominence is unchange d. No michael consolidation or sizable effusion. Less than device noted. IMPRESSION: Cardiomegaly and chronic appearing changes. Suspect underlying pulmonary arterial hypertension. Corre late to exclude mild pulmonary vascular congestion. Accentuated lower thoracic kyphosis.
[2020-04-03 16:06] LABS: Platelet Count 183 k/uL (150-450)
[2020-04-03 16:13] LABS: ALT 14 U/L (4-34); AST 25 U/L (14-36); African American GFR (CKD) 8 (>60 ml/min/1.73 sqM); Albumin 2.9 g/dL (3.5-5.0); Alkaline Phosphatase 100 U/L (38-126); Anion Gap 10 mmol/L; Blood Urea Nitrogen 39 mg/dL (7-17); Calcium 10.1 mg/dL (8.4-10.2); Carbon Dioxide 26 mmol/L (22-30); Chloride 98 mmol/L (98-107); Glucose 174 mg/dL (74-99); Non-African American GFR(CKD) 7 (>60 ml/min/1.73 sqM); Potassium 4.1 mmol/L (3.5-5.1); Sodium 134 mmol/L (137-145); Total Protein 6.5 g/dL (6.3-8.2)
[2020-04-03 16:15] LABS: INR 2.2 (<1.2); Partial Thromboplastin Time 29.5 sec (22.0-30.0); Prothrombin Time 21.5 sec (9.0-12.0)
--- NOTE | 2020-04-03 16:16 | CT ---
EXAMINATION TYPE: CT brain wo con DATE OF EXAM: 04/03/2020 HISTORY: Altered mental status. CT DLP: 1145.4 mGycm. Automated Exposure Control for Dose Reduction was Utilized. TECHNIQUE: CT scan of the head is performed without contrast. COMPARISON: CT brain February 28, 2020 FINDINGS: There is no acute intracranial hemorrhage or midline shift identified. There is diffuse v entricular and sulcal prominence consistent with diffuse age-related cerebral atrophy. There is low- attenuation in the periventricular white matter consistent with chronic small vessel ischemic change. The globes are intact and the visualized sinuses are clear. IMPRESSION: No acute intracranial hemorrhage or midline shift. There is mild to moderate diffuse ag e-related cerebral atrophy and chronic small vessel ischemic change redemonstrated. No significant c hange from prior CT.
[2020-04-03] MEDS ORDERED: ASPIRIN 325 MG TAB PO STA (18:10)
[2020-04-03] MEDS: NITROGLYCERIN OINT 1 INCH/GM PACKET TOPICAL SCH ×2 (18:29→22:32)
[2020-04-03] MEDS ORDERED: ACETAMINOPHEN TAB 500 MG TAB PO PRN (21:23)
[2020-04-03] MEDS ORDERED: MAGNESIUM HYDROXIDE 2,400 MG/10 ML CUP PO PRN (21:23)
[2020-04-03] MEDS ORDERED: SENNOSIDES 8.6 MG TAB PO PRN (21:23)
[2020-04-03] MEDS ORDERED: INSULIN ASPART (NovoLOG) 100 UNIT/ML VIAL SQ PRN (21:23)
[2020-04-03] MEDS ORDERED: NITROGLYCERIN SL TABS 0.4 MG TAB SUBLINGUAL PRN (21:23)
[2020-04-03] MEDS ORDERED: HYDROcodone/APAP 10-325MG 1 EACH TAB PO PRN (21:23)
[2020-04-03] MEDS ORDERED: WARFARIN 2 MG TAB PO ONE (22:00)
[2020-04-03 22:28] LABS: Glucose,Whole Blood 220 mg/dL (75-99)
[2020-04-03] MEDS: INSULIN DETEMIR (LEVEMIR) 100 UNIT/ML SYR SQ SCH (22:40)
[2020-04-04 05:57] LABS: Glucose,Whole Blood 352 mg/dL (75-99)
[2020-04-04] MEDS: LEVOTHYROXINE 88 MCG TAB PO SCH (06:04)
[2020-04-04] MEDS: INSULIN ASPART (NovoLOG) 100 UNIT/ML VIAL SQ SCH ×4 (06:30→20:35)
[2020-04-04 08:01] LABS: Anisocytosis Slight; Basophils # (A) 0.1 k/uL (0-0.2); Basophils % (A) 1 %; Eosinophils # (A) 1.2 k/uL (0-0.7); Eosinophils % (A) 14 %; HCT 32.3 % (34.0-46.0); HGB 10.3 gm/dL (11.4-16.0); Hypochromasia Marked; Lymphocytes # (A) 0.8 k/uL (1.0-4.8); Lymphocytes % (A) 9 %; MCHC 31.8 g/dL (31.0-37.0); MCV 97.4 fL (80.0-100.0); Macrocytosis Slight; Mean Platelet Volume 8.1; Monocytes # (A) 0.4 k/uL (0-1.0); Monocytes % (A) 5 %; Neutrophils # (A) 5.9 k/uL (1.3-7.7); Neutrophils % (A) 70 %; Platelet Count 162 k/uL (150-450); RBC 3.32 m/uL (3.80-5.40); RDW 16.6 % (11.5-15.5); WBC 8.5 k/uL (3.8-10.6)
[2020-04-04 08:11] LABS: INR 2.8 (<1.2); Prothrombin Time 26.6 sec (9.0-12.0)
[2020-04-04] MEDS: FUROSEMIDE 80 MG TAB PO SCH (08:14)
[2020-04-04] MEDS: ESCITALOPRAM 20 MG TAB PO SCH (08:14)
[2020-04-04] MEDS: DOCUSATE 100 MG CAP PO SCH ×2 (08:14→20:13)
[2020-04-04] MEDS: ASPIRIN 81 MG PO SCH (08:14)
[2020-04-04] MEDS: LORazepam 1 MG TAB PO SCH ×2 (08:14→22:50)
[2020-04-04] MEDS: carvediloL 3.125 MG TAB PO SCH ×2 (08:14→17:33)
[2020-04-04] MEDS: amLODIPine 2.5 MG TAB PO SCH (08:14)
[2020-04-04] MEDS: CLOPIDOGREL 75 MG TAB PO SCH (08:14)
[2020-04-04] MEDS: CALCIUM ACETATE 667 MG TAB PO SCH ×3 (08:14→17:33)
[2020-04-04 08:15] LABS: Calcium 9.7 mg/dL (8.4-10.2); Potassium 3.9 mmol/L (3.5-5.1); Total Bilirubin 0.8 mg/dL (0.2-1.3); Total Protein 6.5 g/dL (6.3-8.2)
[2020-04-04] MEDS ORDERED: SODIUM POLYSTYRENE SULFONATE 15 GM/60 ML BOTTLE PO SCH (09:00)
[2020-04-04] MEDS ORDERED: FOLIC ACID-VIT B COMPLEX-VIT C 1 CAP PO SCH (09:00)
[2020-04-04] MEDS ORDERED: ASPIRIN 325 MG TAB PO SCH (09:00)
--- NOTE | 2020-04-04 09:50 | P.NPCON ---
History of Present Illness - Reason for Consult end stage renal disease - History of Present Illness Reason for consultation: End-stage renal disease History of present illness: Patient is a 64-year-old female seen in consultation for end-stage renal disease. She is maintained on hemodialysis on Friday schedule. Patient missed yesterday's treatment of hemodialysis due to not feeling well. Patient is confused and not a reliable historian. She denies any chest pain or shortness of breath. Blood pressure is stable. Patient resides at an extended care facility. She did develop covert infection in February 2020. This admission it was negative. She is currently on room air. She was undergoing hemodialysis today. Vital signs are stable. General: The patient appeared well nourished and normally developed. HEENT: Head exam is unremarkable. Neck is without jugular venous distension. LUNGS: Breath sounds decreased. HEART: Rate and Rhythm are regular. ABDOMEN: Soft, nontender. EXTREMITITES: 1+ edema. Past Medical History Past Medical History: Coronary Artery Disease (CAD), Chest Pain / Angina, Dementia, Diabetes Mellitus, Dialysis, Hyperlipidemia, Hypertension, Liver Disease, Myocardial Infarction ([place]), Osteoarthritis (OA), Thyroid Disorder Additional Past Medical History / Comment(s): multiple [place]'s x18. ischemic cardiomyopathy. 12/29/15 STRESS WNL, ALLERGIC rhinitis,[place], CARDIO-PULMONARY ARREST 07/05/14 vertigo, hypertensive nephrosclerosis, Hepatitis A,Vitamin D deficiency, constipation, hx of a cat bit, fall with broken pelvis Last Myocardial Infarction Date:: 09/2013 History of Any Multi-Drug Resistant Organisms: MRSA, VRE Date of last positivie culture/infection: 11/11/18-VRE; 09/27/17 MRSA MDRO Source:: Urine-VRE; Right Breast-MRSA Past Surgical History: Adenoidectomy, Appendectomy, Cholecystectomy, Heart Catheterization With Stent, Hysterectomy, Tonsillectomy Additional Past Surgical History / Comment(s): mary cataracts, LAP-BAND 2004, Laparoscopic cholecystectomy, FIBULA FX has metal pins in place,Left shoulder surgery, Hemodialysis Cataract bilateral with IOL, fistula and sx to" reroute it",gets dialysis fri-fri-fri. has insulin pump. no bp on left, excisional debreidment rt lower ext., foot surgery Past Anesthesia/Blood Transfusion Reactions: Motion Sickness, Postoperative Nausea & Vomiting (PONV) Additional Past Anesthesia/Blood Transfusion Reaction / Comment(s): blood tra nsfusion-pt stated they gave her medication for a reaction but does'nt rememebr what the reaction was Date of Last Stent Placement:: 2014 Past Psychological History: Anxiety, Bipolar, Depression Additional Psychological History / Comment(s): Pt lives at [facility] and uses a wheelchair for mobility. 2 person assistance transfering to w/c Smoking Status: Never smoker Past Alcohol Use History: None Reported Additional Past Alcohol Use History / Comment(s): Patient living in an apartment. She has a walker in the home and motorized wheelchair. She does not drive. She has a glucometer and insulin pump. She is a lifelong nonsmoker. She denies any alcohol use. No service. No international travel. She has a pet cat. Past Drug Use History: None Reported - Past Family History Mother Family Medical History: Congestive Heart Failure (CHF), Diabetes Mellitus, Hypertension Father History Unknown: Yes Family Medical History: Diabetes Mellitus Brother(s) Family Medical History: Diabetes Mellitus, Hyperlipidemia Additional Family Medical History / Comment(s): Hypertension chronic kidney disease Medications and Allergies Home Medications Medication Instructions Recorded Confirmed Type Atorvastatin [Lipitor] 80 mg PO HS@209912/27/16 04/03/20 History Calcium Acetate [PhosLo] 2,001 mg PO AC-TID@,,09/02/18 04/03/20 History Acetaminophen Tab [Tylenol] 500 mg PO Q6H PRN 01/11/19 04/03/20 History Docusate Sodium [Dok] 100 mg PO BID@899,209901/11/19 04/03/20 History Escitalopram [Lexapro] 20 mg PO DAILY@0900 04/02/19 04/03/20 History Folic Acid-Vit B Complex-Vit C 1 cap PO MOWEFR@209904/02/19 04/03/20 History [Nephrocaps] Folic Acid-Vit B Complex-Vit C 1 mg PO SUTUTHSA@0904/02/19 04/03/20 History [Nephrocaps] Melatonin 10 mg PO HS@209904/02/19 04/03/20 History Nitroglycerin Sl Tabs [Nitrostat] 0.4 mg SUBLINGUAL Q5M PRN tab 04/06/19 04/03/20 Rx Clopidogrel [Plavix] 75 mg PO DAILY@0900 04/09/19 04/03/20 History amLODIPine [Norvasc] 2.5 mg PO DAILY@0900 04/09/19 04/03/20 History Levothyroxine Sodium [Synthroid] 175 mcg PO DAILY@0600 11/05/19 04/03/20 History Sodium Polystyrene Sulfonate 15 gm PO SUTUTHSA@0900 11/05/19 04/03/20 History Lidocaine-Prilocaine Cream [Emla 1 applic TOPICAL MOWEFR@82911/23/19 04/03/20 History Cream 2.5%/2.5%] Furosemide [Lasix] 80 mg PO DAILY@0900 01/28/20 04/03/20 History Aspirin 81 mg PO DAILY@0900 02/28/20 04/03/20 History Hydrocodone/Acetaminophen [[place] 1 tab PO Q12H PRN 02/28/20 04/03/20 History 10-325] INSULIN LISPRO (humaLOG) [humaLOG] See Protocol SQ ACHS 02/28/20 04/03/20 History Magnesium Hydroxide [Milk of 2,400 mg PO DAILY PRN 02/28/20 04/03/20 History Magnesia] Sennosides [Senna] 8.6 mg PO DAILY PRN 02/28/20 04/03/20 History Insulin Detemir (Levemir) [Levemir] 18 unit SQ HS syr 03/04/20 04/03/20 Rx LORazepam [Ativan] 1 mg PO BID@0900,2100 #6 tab 03/04/20 04/03/20 Rx INSULIN ASPART (NovoLOG) [NovoLOG 2 unit SQ ACHS PRN 04/03/20 04/03/20 History (formulary)] Warfarin Sodium 4 mg PO DAILY@1700 04/03/20 04/03/20 History carvediloL [Coreg] 3.125 mg PO BID@0900,1700 04/03/20 04/03/20 History Allergies Allergy/AdvReac Type Severity Reaction Status Date / Time adhesive Allergy Rash/Hives Verified 04/03/20 15:58 Penicillins Allergy Rash/Hives Verified 04/03/20 15:58 Iodinated Contrast Media AdvReac KIDNEY Verified 04/03/20 15:58 [Iodinated Contrast- Oral FAILURE and IV Dye] metformin AdvReac SUGAR Verified 04/03/20 15:58 LEVEL INCREASE Physical Exam Vitals: Vital Signs Temp Pulse Pulse Resp BP BP Pulse Ox 04/04/20 08:12 97.9 F 60 15 137/61 96 04/04/20 04:00 97.4 F L 66 18 137/59 99 04/04/20 02:11 97.6 F 60 18 129/60 99 04/04/20 02:00 60 16 04/04/20 00:00 98.0 F 60 16 111/58 100 04/03/20 20:00 98.7 F 60 18 131/49 100 04/03/20 18:32 98.9 F 60 16 141/68 100 04/03/20 17:30 69 16 134/59 99 04/03/20 14:51 100.3 F H 63 16 140/56 100 Intake and Output 04/03/20 04/04/20 04/04/20 22:59 06:59 14:59 Intake Total 10 300 Balance 10 300 Intake: Intake, IV Titration 10 Amount Sodium Chloride 0.9% 1, 10 000 ml @ 130 mls/hr IV . Q7H42M [facility] Rx#:[id number] Oral 300 Other: # Bowel Movements 1 Weight 108.862 kg 89.1 kg Results - Lab Results Most recent lab results Calcium 9.7 mg/dL (8.4-10.2) 04/04/20 06:55 04/04/20 06:55 04/04/20 06:55 Assessment and Plan Plan: Assessment: 1. End-stage renal disease maintained on hemodialysis on Friday schedule. 2. Hypertension with chronic kidney disease. Stable. 3. Chronic kidney disease mineral bone disease maintained on PhosLo. 4. Diabetes mellitus. 5. Recent covid infection in February 2020. 6. Volume overload. Plan: Hemodialysis today. Another treatment tomorrow per her outpatient schedule. Thank you for the consultation. I will continue to follow patient with you during her hospital stay.
[2020-04-04 11:16] VITALS: BMI 31.6
[2020-04-04 11:43] LABS: Glucose,Whole Blood 164 mg/dL (75-99)
--- NOTE | 2020-04-04 13:09 | P.CRDCN ---
History of Present Illness Consult date: 04/04/20 History of present illness: CHIEF COMPLAINT: Congestive heart failure HISTORY OF PRESENT ILLNESS: This is a 64-year-old female with a past medical history significant for coronary artery disease with previous PCI, hypertension, hyperlipidemia, diabetes mellitus, and end-stage renal disease on hemodialysis. Patient follows in the office with Dr. Smith. We have been asked to see the patient in consultation for CHF. Patient was brought to the hospital for altered mental status from her ECF. Patient apparently was not feeling well yesterday and missed her dialysis session. Patient is a poor historian and is unable to provide HPI. Patient is currently receiving hemodialysis during examination. She denies chest pain or pressure. Denies shortness of breath. Echocardiogram completed in February 2020 reveals ejection fraction 35-40%, predominantly apical hypokinesis with preserved basal function which may be consistent with Takostubos cardiomyopathy, mild mitral regurgitation, moderate tricuspid regurgitation and moderate pulmonary hypertension Most recent cardiac catheterization performed in March 2019 reveals total occlusion of the diagonal branch. First obtuse marginal totally occluded. Recently stented LAD is widely patent with good flow. RCA has no significant disease. DIAGNOSTICS: EKG reveals ventricular paced rhythm Chest xray cardiomegaly and chronic appearing changes. Underlying pulmonary artery hypertension. Correlate to exclude mild pulmonary vascular congestion. Laboratory data: WBC 8.5. Hemoglobin 10.3. Platelet count 162. INR 2.8. Sodium 132. Potassium 3.9. BUN 49. Creatinine 7.01. Troponin 0.123. 0.126. 0.115. Current home cardiac medications include Coreg 3.125 mg BID, Lasix 80 mg daily, warfarin 4 g daily, Plavix 75 mg daily, Norvasc 2.5 mg daily, Lipitor 80 mg daily, and aspirin 81 mg daily REVIEW OF SYSTEMS: Thorough review of systems unable to be completed secondary to altered mental status PHYSICAL EXAM: VITAL SIGNS: Reviewed. GENERAL: Well-developed in no acute distress. HEENT: Head is normocephalic. Pupils are equal, round. Sclerae anicteric. Mucous membranes of the mouth are moist. Neck supple. No JVD or thyromegaly LUNGS: Respirations even and unlabored. Lungs diminished bilaterally with fine rales at bases. HEART: Regular rate and rhythm. S1 and S2 heard. Systolic murmur noted ABDOMEN: Soft. Nondistended. Nontender. EXTREMITIES: Normal range of motion. No clubbing or cyanosis. Peripheral pulses intact. 1+ bilateral lower extremity edema NEUROLOGIC: Awake and alert. Oriented x 1. ASSESSMENT: Altered mental status End-stage renal disease on hemodialysis Volume overload secondary to missed HD session Coronary artery disease with previous multivessel PCI Abnormal troponins, secondary to chronic kidney disease History of sick sinus syndrome, s/p dual chamber pacemaker Hypertension Hyperlipidemia History of Covid 19 PLAN: Continue hemodialysis per nephrology Resume home cardiac medications Obtain limited echo to evaluate LV function Further recommendations pending patient's course Nurse practitioner note has been reviewed by physician. Signing provider agrees with the documented findings, assessment, and plan of care. Past Medical History Past Medical History: Coronary Artery Disease (CAD), Chest Pain / Angina, Dementia, Diabetes Mellitus, Dialysis, Hyperlipidemia, Hypertension, Liver Disease, Myocardial Infarction (NM), Osteoarthritis (OA), Thyroid Disorder Additional Past Medical History / Comment(s): multiple NM's x18. ischemic cardiomyopathy. 12/29/15 STRESS WNL, ALLERGIC rhinitis,NM, CARDIO-PULMONARY ARREST 07/05/14 vertigo, hypertensive nephrosclerosis, Hepatitis A,Vitamin D deficiency, constipation, hx of a cat bit, fall with broken pelvis Last Myocardial Infarction Date:: 09/2013 History of Any Multi-Drug Resistant Organisms: MRSA, VRE Date of last positivie culture/infection: 11/11/18-VRE; 09/27/17 MRSA MDRO Source:: Urine-VRE; Right Breast-MRSA Past Surgical History: Adenoidectomy, Appendectomy, Cholecystectomy, Heart Catheterization With Stent, Hysterectomy, Tonsillectomy Additional Past Surgical History / Comment(s): mary cataracts, LAP-BAND 2004, Laparoscopic cholecystectomy, FIBULA FX has metal pins in place,Left shoulder surgery, Hemodialysis Cataract bilateral with IOL, fistula and sx to" reroute it",gets dialysis fri-fri-fri. has insulin pump. no bp on left, excisional debreidment rt lower ext., foot surgery Past Anesthesia/Blood Transfusion Reactions: Motion Sickness, Postoperative Nausea & Vomiting (PONV) Additional Past Anesthesia/Blood Transfusion Reaction / Comment(s): blood t ransfusion-pt stated they gave her medication for a reaction but does'nt rememebr what the reaction was Date of Last Stent Placement:: 2014 Past Psychological History: Anxiety, Bipolar, Depression Additional Psychological History / Comment(s): Pt lives at [facility] and uses a wheelchair for mobility. 2 person assistance transfering to w/c Smoking Status: Never smoker Past Alcohol Use History: None Reported Additional Past Alcohol Use History / Comment(s): Patient living in an apartment. She has a walker in the home and motorized wheelchair. She does not drive. She has a glucometer and insulin pump. She is a lifelong nonsmoker. She denies any alcohol use. No service. No international travel. She has a pet cat. Past Drug Use History: None Reported - Past Family History Mother Family Medical History: Congestive Heart Failure (CHF), Diabetes Mellitus, Hypertension Father History Unknown: Yes Family Medical History: Diabetes Mellitus Brother(s) Family Medical History: Diabetes Mellitus, Hyperlipidemia Additional Family Medical History / Comment(s): Hypertension chronic kidney disease Medications and Allergies Home Medications Medication Instructions Recorded Confirmed Type Atorvastatin [Lipitor] 80 mg PO HS@209912/27/16 04/03/20 History Calcium Acetate [PhosLo] 2,001 mg PO AC-TID@09/02/18 04/03/20 History Acetaminophen Tab [Tylenol] 500 mg PO Q6H PRN 01/11/19 04/03/20 History Docusate Sodium [Dok] 100 mg PO BID@01/11/19 04/03/20 History Escitalopram [Lexapro] 20 mg PO DAILY@89904/02/19 04/03/20 History Folic Acid-Vit B Complex-Vit C 1 cap PO MOWEFR@209904/02/19 04/03/20 History [Nephrocaps] Folic Acid-Vit B Complex-Vit C 1 mg PO SUTUTHSA@89904/02/19 04/03/20 History [Nephrocaps] Melatonin 10 mg PO HS@209904/02/19 04/03/20 History Nitroglycerin Sl Tabs [Nitrostat] 0.4 mg SUBLINGUAL Q5M PRN tab 04/06/19 04/03/20 Rx Clopidogrel [Plavix] 75 mg PO DAILY@89904/09/19 04/03/20 History amLODIPine [Norvasc] 2.5 mg PO DAILY@89904/09/19 04/03/20 History Levothyroxine Sodium [Synthroid] 175 mcg PO DAILY@0600 11/05/19 04/03/20 History Sodium Polystyrene Sulfonate 15 gm PO SUTUTHSA@0900 11/05/19 04/03/20 History Lidocaine-Prilocaine Cream [Emla 1 applic TOPICAL MOWEFR@0830 11/23/19 04/03/20 History Cream 2.5%/2.5%] Furosemide [Lasix] 80 mg PO DAILY@0900 01/28/20 04/03/20 History Aspirin 81 mg PO DAILY@0900 02/28/20 04/03/20 History Hydrocodone/Acetaminophen [Anthony 1 tab PO Q12H PRN 02/28/20 04/03/20 History 10-325] INSULIN LISPRO (humaLOG) [humaLOG] See Protocol SQ ACHS 02/28/20 04/03/20 History Magnesium Hydroxide [Milk of 2,400 mg PO DAILY PRN 02/28/20 04/03/20 History Magnesia] Sennosides [Senna] 8.6 mg PO DAILY PRN 02/28/20 04/03/20 History Insulin Detemir (Levemir) [Levemir] 18 unit SQ HS syr 03/04/20 04/03/20 Rx LORazepam [Ativan] 1 mg PO BID@0900,2100 #6 tab 03/04/20 04/03/20 Rx INSULIN ASPART (NovoLOG) [NovoLOG 2 unit SQ ACHS PRN 04/03/20 04/03/20 History (formulary)] Warfarin Sodium 4 mg PO DAILY@1700 04/03/20 04/03/20 History carvediloL [Coreg] 3.125 mg PO BID@0900,1700 04/03/20 04/03/20 History Allergies Allergy/AdvReac Type Severity Reaction Status Date / Time adhesive Allergy Rash/Hives Verified 04/03/20 15:58 Penicillins Allergy Rash/Hives Verified 04/03/20 15:58 Iodinated Contrast Media AdvReac KIDNEY Verified 04/03/20 15:58 [Iodinated Contrast- Oral FAILURE and IV Dye] metformin AdvReac SUGAR Verified 04/03/20 15:58 LEVEL INCREASE Physical Exam Vitals: Vital Signs Temp Pulse Pulse Resp BP BP Pulse Ox 04/04/20 11:32 97.6 F 60 15 140/74 97 04/04/20 08:12 97.9 F 60 15 137/61 96 04/04/20 04:00 97.4 F L 66 18 137/59 99 04/04/20 02:11 97.6 F 60 18 129/60 99 04/04/20 02:00 60 16 04/04/20 00:00 98.0 F 60 16 111/58 100 04/03/20 20:00 98.7 F 60 18 131/49 100 04/03/20 18:32 98.9 F 60 16 141/68 100 04/03/20 17:30 69 16 134/59 99 04/03/20 14:51 100.3 F H 63 16 140/56 100 Intake and Output 04/03/20 04/04/20 04/04/20 22:59 06:59 14:59 Intake Total 10 300 Balance 10 300 Intake: Intake, IV Titration 10 Amount Sodium Chloride 0.9% 1, 10 000 ml @ 130 mls/hr IV . Q7H42M [facility] Rx#:[id number] Oral 300 Other: # Voids 0 # Bowel Movements 1 Weight 108.862 kg 89.1 kg 89.1 kg Results 04/04/20 06:55 04/04/20 06:55 Cardiac Enzymes 04/03/20 04/03/20 04/03/20 Range/Units 15:26 15:26 18:40 AST 25 (14-36) U/L Troponin I 0.123 H* 0.126 H* (0.000-0.034) ng/mL 04/03/20 04/04/20 Range/Units 21:37 06:55 AST 26 (14-36) U/L Troponin I 0.115 H* (0.000-0.034) ng/mL Coagulation 04/03/20 04/04/20 Range/Units 15:26 06:55 PT 21.5 H 26.6 H (9.0-12.0) sec APTT 29.5 (22.0-30.0) sec CBC 04/03/20 04/04/20 Range/Units 15:26 06:55 WBC 8.8 8.5 (3.8-10.6) k/uL RBC 3.47 L 3.32 L (3.80-5.40) m/uL Hgb 10.8 L 10.3 L (11.4-16.0) gm/dL Hct 32.4 L 32.3 L (34.0-46.0) % Plt Count 183 D 162 (150-450) k/uL Comprehensive Metabolic Panel 04/03/20 04/04/20 Range/Units 15:26 06:55 Sodium 134 L 132 L (137-145) mmol/L Potassium 4.1 3.9 (3.5-5.1) mmol/L Chloride 98 95 L (98-107) mmol/L Carbon Dioxide 26 25 (22-30) mmol/L BUN 39 H 49 H (7-17) mg/dL Creatinine 6.01 H 7.01 H* (0.52-1.04) mg/dL Glucose 174 H 325 H (74-99) mg/dL Calcium 10.1 9.7 (8.4-10.2) mg/dL AST 25 26 (14-36) U/L ALT 14 14 (4-34) U/L Alkaline Phosphatase 100 93 (38-126) U/L Total Protein 6.5 6.5 (6.3-8.2) g/dL Albumin 2.9 L 3.0 L (3.5-5.0) g/dL Current Medications Generic Name Dose Route Start Last Admin Trade Name Freq PRN Reason Stop Dose Admin Acetaminophen 500 mg 04/03/20 21:23 Acetaminophen Tab 500 Mg Tab PO Q6H PRN Pain Hydrocodone Bitart/Acetaminophen 1 each 04/03/20 21:23 Hydrocodone/Apap 10-325mg 1 Each Tab PO Q12H PRN pain Amlodipine Besylate 2.5 mg 04/04/20 09:00 04/04/20 08:14 Amlodipine 2.5 Mg Tab PO 2.5 mg DAILY@0900 [facility] Administration Aspirin 81 mg 04/04/20 09:00 04/04/20 08:14 Aspirin 81 Mg PO 81 mg DAILY@0900 [facility] Administration Atorvastatin Calcium 80 mg 04/04/20 21:00 Atorvastatin 80 Mg Tab PO HS@2100 [facility] Calcium Acetate 2,001 mg 04/04/20 08:00 04/04/20 11:56 Calcium Acetate 667 Mg Tab PO 2,001 mg AC-TID@08,,17 [facility] Administration Carvedilol 3.125 mg 04/04/20 09:00 04/04/20 08:14 Carvedilol 3.125 Mg Tab PO 3.125 mg BID@0900,1700 [facility] Administration Clopidogrel Bisulfate 75 mg 04/04/20 09:00 04/04/20 08:14 Clopidogrel 75 Mg Tab PO 75 mg DAILY@0900 [facility] Administration Docusate Sodium 100 mg 04/04/20 09:00 04/04/20 08:14 Docusate 100 Mg Cap PO 100 mg BID@0900,2100 [facility] Administration Escitalopram Oxalate 20 mg 04/04/20 09:00 04/04/20 08:14 Escitalopram 20 Mg Tab PO 20 mg DAILY@0900 [facility] Administration Furosemide 80 mg 04/04/20 09:00 04/04/20 08:14 Furosemide 80 Mg Tab PO 80 mg DAILY@0900 [facility] Administration Insulin Aspart 2 unit 04/03/20 21:23 Insulin Aspart (Novolog) 100 Unit/Ml Vial SQ ACHS PRN HIGH BLOOD SUGAR Insulin Aspart 0 unit 04/04/20 07:30 04/04/20 11:56 Insulin Aspart (Novolog) 100 Unit/Ml Vial SQ 1 unit [facility] Administration Protocol Insulin Detemir 18 unit 04/03/20 21:30 04/03/20 22:40 Insulin Detemir (Levemir) 100 Unit/Ml Syr SQ 18 unit HS [facility] Administration Levothyroxine Sodium 176 mcg 04/04/20 06:30 04/04/20 06:04 Levothyroxine 88 Mcg Tab PO 176 mcg DAILY@0630 [facility] Administration Lidocaine/Prilocaine 1 applic 04/05/20 08:30 Lidocaine-Prilocaine 2.5-2.5% Cream 5 Gm Tube TOPICAL MOWEFR@0830 [facility] Lorazepam 1 mg 04/04/20 09:00 04/04/20 08:14 Lorazepam 1 Mg Tab PO 1 mg BID@0900,2100 [facility] Administration Magnesium Hydroxide 2,400 mg 04/03/20 21:23 Magnesium Hydroxide 2,400 Mg/10 Ml Cup PO DAILY PRN Constipation Melatonin 10 mg 04/04/20 21:00 Melatonin 5 Mg Tablet PO HS@2100 [facility] Miscellaneous Information 0 each 04/03/20 21:54 Warfarin Per Pharmacy MISCELLANE DIRECTED PRN Per Protocol Multivit/Ca Carb/B Cmplx/FA/Prenat 1 each 04/05/20 21:00 Folic Acid-Vit B Complex-Vit C 1 Cap PO MOWEFR@2100 [facility] Multivit/Ca Carb/B Cmplx/FA/Prenat 1 each 04/04/20 09:00 04/04/20 08:15 Folic Acid-Vit B Complex-Vit C 1 Cap PO 1 each SUTUTHSA@0900 [facility] Administration Nitroglycerin 0.4 mg 04/03/20 21:23 Nitroglycerin Sl Tabs 0.4 Mg Tab SUBLINGUAL Q5M PRN Chest Pain Senna 8.6 mg 04/03/20 21:23 Sennosides 8.6 Mg Tab PO DAILY PRN Constipation Sodium Polystyrene Sulfonate 15 gm 04/04/20 09:00 04/04/20 08:15 Sodium Polystyrene Sulfonate 15 Gm/60 Ml Bottle PO 15 gm SUTUTHSA@0900 [facility] Administration Warfarin Sodium 3 mg 04/04/20 18:00 Warfarin 3 Mg Tab PO 04/04/20 18:01 ONCE ONE Intake and Output 04/03/20 04/04/20 04/04/20 22:59 06:59 14:59 Intake Total 10 300 Balance 10 300 Intake: Intake, IV Titration 10 Amount Sodium Chloride 0.9% 1, 10 000 ml @ 130 mls/hr IV . Q7H42M [facility] Rx#:[id number] Oral 300 Other: # Voids 0 # Bowel Movements 1 Weight 108.862 kg 89.1 kg 89.1 kg Patient Weight 04/05/20 06:59 Weight 89.1 kg 04/04/20 06:55 04/04/20 06:55
[2020-04-04 17:25] LABS: Glucose,Whole Blood 260 mg/dL (75-99)
--- NOTE | 2020-04-04 17:54 | ECHOF ---
Referral Reason:LV function MEASUREMENTS -------- HEIGHT: 167.6 cm WEIGHT: 88.9 kg BP: RAP: 5.00 mmHg RVSP: 70.71 mmHg FINDINGS -------- Limited study for LV function. The left ventricular size is normal. Left ventricular wall thickness is normal. Overall left vent ricular systolic function is moderate-severely impaired with, an EF between 30 - 35 %. Mid anterior LV wall motion is akinetic. Mid lateral LV wall motion is akinetic. Mid anteroseptal LV wall m otion is akinetic. Apical anterior LV wall motion is akinetic. Apical lateral LV wall motion is akinetic. Apical septum LV wall motion is akinetic. Lumason used Moderate to severe tricuspid regurgitation present. There is severe pulmonary hypertension. The r ight ventricular systolic pressure, as measured by Doppler, is 70.71mmHg. CONCLUSIONS -------- 1. Limited study for LV function. 2. Overall left ventricular systolic function is moderate-severely impaired with, an EF between 30 - 35 %. 3. Mid anterior LV wall motion is akinetic. 4. Mid lateral LV wall motion is akinetic. 5. Mid anteroseptal LV wall motion is akinetic. 6. Apical anterior LV wall motion is akinetic. 7. Apical lateral LV wall motion is akinetic. 8. Apical septum LV wall motion is akinetic. 9. Moderate to severe tricuspid regurgitation present. 10. The right ventricular systolic pressure, as measured by Doppler, is 70.71mmHg. BAND IN[employer]UMENT [employer]KER: Jess Leavitt RDCS
[2020-04-04] MEDS ORDERED: WARFARIN 3 MG TAB PO ONE (18:00)
[2020-04-04 20:34] LABS: Glucose,Whole Blood 318 mg/dL (75-99)
[2020-04-04] MEDS: INSULIN DETEMIR (LEVEMIR) 100 UNIT/ML SYR SQ SCH (20:35)
[2020-04-04] MEDS ORDERED: MELATONIN 5 MG TABLET PO SCH (21:00)
[2020-04-04] MEDS ORDERED: ATORVASTATIN 80 MG TAB PO SCH (21:00)
--- NOTE | 2020-04-05 05:57 | P.HPIM ---
History of Present Illness H&P Date: 04/03/20 This is a 64-year-old obese female patient of paty, Dr. JAE Jc, and Dr. Talley with multiple medical problem was known to have end-stage kidney disease on hemodialysis Friday, coronary artery disease and prior coronary artery stenting, diabetes type 2 insulin requiring, dyslipidemia, history of permanent pacemaker. Patient is a long-term resident at [facility] developed to have COVID-19 during an outbreak that affected [facility] on the [place] and she was sent to [facility] for evaluation and treatment and she eventually was sent back to [facility] on the [place] however she became very weak and has not gotten back to her baseline , I received a call from the staff at [facility] stating that Ethel is not eating and she is not responding much becomes encephalopathic with low grade temperature and she did not go to her dialysis, so she was directed to go to the ER at [facility] for evaluation and she was found to have mild anemia, INR is therapeutic 2.2 , no leukocytosis, mild elevated Troponin, EKG did show underlying atrial fibrillation with left bundle branch block, CT scan of the brain showed diffuse age realted atrophy without new changes, CXR showed Pulmonary congestion with pulmonary arterial hypertension, she was admitted to the hospital for evaluation by cardiology and nephrology with planned HD for the next 2 days. Review of Systems Constitutional: Reports anorexia, Reports chronic pain, Reports fatigue, Reports lethargy, Reports malaise, Reports weakness, Reports weight loss Eyes: denies blurred vision, denies bulging eye, denies decreased vision Ears, nose, mouth and throat: Denies dysphagia, Denies neck lump, Denies sore throat Cardiovascular: Reports decreased exercise tolerance, Reports dyspnea on exertion, Reports leg edema, Reports orthopnea, Reports shortness of breath, Denies chest pain, Denies rapid heart beat, Denies syncope Respiratory: Reports sleep apnea, Reports snoring, Denies congestion, Denies cough, Denies cough with sputum, Denies home oxygen, Denies wheezing Gastrointestinal: Reports constipation, Reports loss of appetite, Reports [place], Denies abdominal pain, Denies bloating, Denies change in bowel habits, Denies early satiety, Denies hematemesis, Denies hematochezia, Denies indigestion, Denies melena, Denies vomiting Genitourinary: Denies dysuria, Denies nocturia Menstruation: Reports postmenopausal Musculoskeletal: Reports atrophy, Reports frequent falls, Reports gait dysfunction, Reports loss of height, Reports low back pain, Reports morning stif fness Musculoskeletal: bilateral: ankle pain, ankle stiffness, ankle swelling, foot pain, foot stiffness, foot swelling, absent: elbow pain, elbow stiffness, elbow swelling, hand pain, hand stiffness, hand swelling, hip pain, hip stiffness, hip swelling, knee pain, knee stiffness, knee swelling, shoulder pain, shoulder stiffness, shoulder swelling, wrist pain, wrist stiffness, wrist swelling Integumentary: Denies pruritus, Denies rash Neurological: Reports change in mentation, Reports confusion, Reports gait dysfunction, Reports memory loss, Reports sensory deficit, Reports weakness Psychiatric: Reports anxiety, Reports depression, Denies sadness/tearfulness, Denies sleep disturbances, Denies suicidal ideation Endocrine: Denies fatigue, Denies weight change Past Medical History Past Medical History: Coronary Artery Disease (CAD), Chest Pain / Angina, Dementia, Diabetes Mellitus, Dialysis, Hyperlipidemia, Hypertension, Liver Disease, Myocardial Infarction (DC), Osteoarthritis (OA), Thyroid Disorder Additional Past Medical History / Comment(s): multiple DC's x18. ischemic cardiomyopathy. 12/29/15 STRESS WNL, ALLERGIC rhinitis,DC, CARDIO-PULMONARY ARREST 07/05/14 vertigo, hypertensive nephrosclerosis, Hepatitis A,Vitamin D deficiency, constipation, hx of a cat bit, fall with broken pelvis Last Myocardial Infarction Date:: 09/2013 History of Any Multi-Drug Resistant Organisms: MRSA, VRE Date of last positivie culture/infection: 11/11/18-VRE; 09/27/17 MRSA MDRO Source:: Urine-VRE; Right Breast-MRSA Past Surgical History: Adenoidectomy, Appendectomy, Cholecystectomy, Heart Catheterization With Stent, Hysterectomy, Tonsillectomy Additional Past Surgical History / Comment(s): mary cataracts, LAP-BAND 2004, Laparoscopic cholecystectomy, FIBULA FX has metal pins in place,Left shoulder surgery, Hemodialysis Cataract bilateral with IOL, fistula and sx to" reroute it",gets dialysis mon-fri-fri. has insulin pump. no bp on left, excisional cici reidment rt lower ext., foot surgery Past Anesthesia/Blood Transfusion Reactions: Motion Sickness, Postoperative Nausea & Vomiting (PONV) Additional Past Anesthesia/Blood Transfusion Reaction / Comment(s): blood transfusion-pt stated they gave her medication for a reaction but does'nt rememebr what the reaction was Date of Last Stent Placement:: 2014 Past Psychological History: Anxiety, Bipolar, Depression Smoking Status: Never smoker Past Alcohol Use History: None Reported Past Drug Use History: None Reported - Past Family History Mother Family Medical History: Congestive Heart Failure (CHF), Diabetes Mellitus, Hypertension Father History Unknown: Yes Family Medical History: Diabetes Mellitus Brother(s) Family Medical History: Diabetes Mellitus, Hyperlipidemia Additional Family Medical History / Comment(s): Hypertension chronic kidney disease Medications and Allergies Home Medications Medication Instructions Recorded Confirmed Type Atorvastatin [Lipitor] 80 mg PO HS@209912/27/16 04/03/20 History Calcium Acetate [PhosLo] 2,001 mg PO AC-TID@,,09/02/18 04/03/20 History Acetaminophen Tab [Tylenol] 500 mg PO Q6H PRN 01/11/19 04/03/20 History Docusate Sodium [Dok] 100 mg PO BID@01/11/19 04/03/20 History Escitalopram [Lexapro] 20 mg PO DAILY@89904/02/19 04/03/20 History Folic Acid-Vit B Complex-Vit C 1 cap PO MOWEFR@209904/02/19 04/03/20 History [Nephrocaps] Folic Acid-Vit B Complex-Vit C 1 mg PO SUTUTHSA@89904/02/19 04/03/20 History [Nephrocaps] Melatonin 10 mg PO HS@209904/02/19 04/03/20 History Nitroglycerin Sl Tabs [Nitrostat] 0.4 mg SUBLINGUAL Q5M PRN tab 04/06/19 04/03/20 Rx Clopidogrel [Plavix] 75 mg PO DAILY@89904/09/19 04/03/20 History amLODIPine [Norvasc] 2.5 mg PO DAILY@89904/09/19 04/03/20 History Levothyroxine Sodium [Synthroid] 175 mcg PO DAILY@0600 11/05/19 04/03/20 History Sodium Polystyrene Sulfonate 15 gm PO SUTUTHSA@89911/05/19 04/03/20 History Lidocaine-Prilocaine Cream [Emla 1 applic TOPICAL MOWEFR@0830 11/23/19 04/03/20 History Cream 2.5%/2.5%] Furosemide [Lasix] 80 mg PO DAILY@0900 01/28/20 04/03/20 History Aspirin 81 mg PO DAILY@0900 02/28/20 04/03/20 History Hydrocodone/Acetaminophen [[place]itt 1 tab PO Q12H PRN 02/28/20 04/03/20 History 10-325] INSULIN LISPRO (humaLOG) [humaLOG] See Protocol SQ ACHS 02/28/20 04/03/20 History Magnesium Hydroxide [Milk of 2,400 mg PO DAILY PRN 02/28/20 04/03/20 History Magnesia] Sennosides [Senna] 8.6 mg PO DAILY PRN 02/28/20 04/03/20 History Insulin Detemir (Levemir) [Levemir] 18 unit SQ HS syr 03/04/20 04/03/20 Rx LORazepam [Ativan] 1 mg PO BID@0900,2100 #6 tab 03/04/20 04/03/20 Rx INSULIN ASPART (NovoLOG) [NovoLOG 2 unit SQ ACHS PRN 04/03/20 04/03/20 History (formulary)] Warfarin Sodium 4 mg PO DAILY@1700 04/03/20 04/03/20 History carvediloL [Coreg] 3.125 mg PO BID@0900,1700 04/03/20 04/03/20 History Allergies Allergy/AdvReac Type Severity Reaction Status Date / Time adhesive Allergy Rash/Hives Verified 04/03/20 15:58 Penicillins Allergy Rash/Hives Verified 04/03/20 15:58 Iodinated Contrast Media AdvReac KIDNEY Verified 04/03/20 15:58 [Iodinated Contrast- Oral FAILURE and IV Dye] metformin AdvReac SUGAR Verified 04/03/20 15:58 LEVEL INCREASE Physical Exam Vitals: Vital Signs Temp Pulse Resp BP Pulse Ox 04/03/20 18:32 98.9 F 60 16 141/68 100 04/03/20 17:30 69 16 134/59 99 04/03/20 14:51 100.3 F H 63 16 140/56 100 Intake and Output 04/03/20 04/03/20 04/03/20 06:59 14:59 22:59 Other: Weight 108.862 kg Physical examination: General: 64-year-old female who is laying down in bed appears to be very weak does not appear to be in acute distress at this point in time. HEENT: Head is atraumatic, normocephalic, pupils were equal round reactive to light and recommendation, extraocular muscle movement were intact, sclera nonicteric, conjunctivae were pale, mucous membranes of the mouth are somewhat dry. Neck: Supple, no JVP, decreased carotid upstroke bilaterally, no lymphadenopathy. Chest: Decreased breath sounds at the bases, few rhonchi, no extremity wheezes, no chest wall tenderness, no intercostal retractions. Heart: First heart sound is depressed, second heart sounds normal, there is systolic ejection murmur 2/6 located in the left sternal border. Abdomen: Soft, nontender, nondistended, positive bowel sounds. Extremities: There is no edema no calf tenderness DP +1 bilaterally. Neurologic examination: Patient is awake alert and oriented 2, cranial nerves III-12 appear grossly intact, muscle power were 4 out of 5 in upper extremities and 3 out of 5 in bilateral lower extremities, deep tendon reflexes were depressed bilaterally, there is also neuropathic changes to both lower extremity with decreased sensation. Results CBC & Chem 7: 04/04/20 06:55 04/04/20 06:55 Labs: Abnormal Lab Results - Last 24 Hours (Table) 04/03/20 04/03/20 04/03/20 Range/Units 15:26 15:26 15:26 RBC 3.47 L (3.80-5.40) m/uL Hgb 10.8 L (11.4-16.0) gm/dL Hct 32.4 L (34.0-46.0) % RDW 17.0 H (11.5-15.5) % PT 21.5 H (9.0-12.0) sec INR 2.2 H (<1.2) Sodium 134 L (137-145) mmol/L BUN 39 H (7-17) mg/dL Creatinine 6.01 H (0.52-1.04) mg/dL Glucose 174 H (74-99) mg/dL Troponin I (0.000-0.034) ng/mL Albumin 2.9 L (3.5-5.0) g/dL 04/03/20 Range/Units 15:26 RBC (3.80-5.40) m/uL Hgb (11.4-16.0) gm/dL Hct (34.0-46.0) % RDW (11.5-15.5) % PT (9.0-12.0) sec INR (<1.2) Sodium (137-145) mmol/L BUN (7-17) mg/dL Creatinine (0.52-1.04) mg/dL Glucose (74-99) mg/dL Troponin I 0.123 H* (0.000-0.034) ng/mL Albumin (3.5-5.0) g/dL Thrombosis Risk Factor Assmnt - DVT/VTE Prophylaxis DVT/VTE Prophylaxis: Pharmacologic Prophylaxis ordered, Mechanical Prophylaxis ordered Assessment and Plan Assessment: Assessment and Plan: 1. Severe metabolic enecephalopathy due to ESRD with cardiac debility and cardiomyopathy. patient will undergo HD for the next 2 days and we will check echocardiogram for evaluation of her LVF and wall motion. 2. Recent NSTEMI. we will continue with ASA 81 mg orally daily, PLavix 75 mg orally daily and Lipitor 80 mg orally daily and add small dose of Coreg 3.125 mg orally bid, cardiology evaluation, we will check Echocardiogram for evaluation of her LVF and wall motion. 3. Recent COVID . recovered. 4. End-stage renal disease on hemodialysis Friday. Nephrology consult appreciated Continue Nephrocaps, PhosLo. 5. History of coronary artery disease with prior stenting of the LAD. We will continue the patient on aspirin 81 mg once every day, Plavix 75 mg orally once every day, Lipitor 80 mg once every day, added Coreg 3.125 mg orally bid. 6. Hyponatremia likely related to hypovolemia post hemodialysis yesterday. Monitor the patient CMP. 7. Anemia of chronic kidney disease. stable. 8. Hypertension and hypertensive cardiovascular disease. Continue amlodipine2.5 mg daily and add Coreg 3.125 mg orally bid. 9. Hyperlipidemia. Continue atorvastatin 80 mg at bedtime 10. Gastroesophageal reflux disease and GI prophylaxis. we will continue with Protonix 40 mg orally daily. 11. Diabetes mellitus type 2, insulin requiring. We will continue Levemir 18 units at bedtime along with the Humalog per sliding scale insulin. 12. Generalized anxiety disorder and recurrent depression. Continue Lexapro 20 mg orally once every day as well as Ativan 1 mg orally twice every day. 13. Hypothyroidism. Continue patient on levothyroxine 175 g orally once every day. 14. history of symptomatic Bradycardia and recently was diagnosed with atrial fibrillation post PPM amd currently fully anticoagulated. 15. DVT prophylaxis. we will contiue with coumadin INR is therapeutic. 16. GI prophylaxis. we will contiue with Protonix 40 mg orally daily. 17. Medical debility. Physical therapy evaluation. 18. child protective services social worker consultation for discharge planning to [facility]. 19. Patient is full code. 20. Admit to inpatient. Estimated length of stay 2 midnights.
[2020-04-05 06:23] LABS: Glucose,Whole Blood 120 mg/dL (75-99)
[2020-04-05] MEDS: INSULIN ASPART (NovoLOG) 100 UNIT/ML VIAL SQ SCH ×3 (06:26→17:07)
[2020-04-05] MEDS: LEVOTHYROXINE 88 MCG TAB PO SCH (06:30)
[2020-04-05] MEDS ORDERED: LIDOCAINE-PRILOCAINE 2.5-2.5% CREAM 5 GM TUBE TOPICAL SCH (08:30)
[2020-04-05 08:33] LABS: Anisocytosis Slight; Basophils # (A) 0.1 k/uL (0-0.2); Basophils % (A) 1 %; Eosinophils # (A) 1.5 k/uL (0-0.7); Eosinophils % (A) 17 %; HCT 33.6 % (34.0-46.0); HGB 10.8 gm/dL (11.4-16.0); Hypochromasia Moderate; Lymphocytes # (A) 0.7 k/uL (1.0-4.8); Lymphocytes % (A) 8 %; MCH 30.6 pg (25.0-35.0); MCV 95.5 fL (80.0-100.0); Mean Platelet Volume 8.4; Monocytes # (A) 0.5 k/uL (0-1.0); Monocytes % (A) 5 %; Neutrophils # (A) 5.9 k/uL (1.3-7.7); Neutrophils % (A) 67 %; Platelet Count 187 k/uL (150-450); RBC 3.52 m/uL (3.80-5.40); RDW 16.8 % (11.5-15.5); WBC 8.9 k/uL (3.8-10.6)
[2020-04-05] MEDS: ASPIRIN 81 MG PO SCH (08:39)
[2020-04-05] MEDS: DOCUSATE 100 MG CAP PO SCH (08:39)
[2020-04-05] MEDS: CALCIUM ACETATE 667 MG TAB PO SCH ×3 (08:39→17:05)
[2020-04-05] MEDS: FUROSEMIDE 80 MG TAB PO SCH (08:39)
[2020-04-05] MEDS: amLODIPine 2.5 MG TAB PO SCH (08:39)
[2020-04-05] MEDS: ESCITALOPRAM 20 MG TAB PO SCH (08:40)
[2020-04-05] MEDS: carvediloL 3.125 MG TAB PO SCH ×2 (08:40→17:05)
[2020-04-05] MEDS: CLOPIDOGREL 75 MG TAB PO SCH (08:40)
[2020-04-05] MEDS: LORazepam 1 MG TAB PO SCH (08:40)
[2020-04-05 08:44] LABS: INR 2.9 (<1.2); Prothrombin Time 28.3 sec (9.0-12.0)
[2020-04-05 09:00] LABS: Albumin 3.1 g/dL (3.5-5.0); Calcium 9.7 mg/dL (8.4-10.2); Potassium 3.3 mmol/L (3.5-5.1); Total Bilirubin 0.7 mg/dL (0.2-1.3); Total Protein 6.7 g/dL (6.3-8.2)
--- NOTE | 2020-04-05 10:55 | P.PN ---
Subjective Patient is seen in follow-up for end-stage renal disease. She is maintained on hemodialysis on Friday schedule. Tolerating dialysis well. Not a reliable historian. No chest pain or shortness of breath. Vital signs are stable. General: The patient appeared well nourished and normally developed. HEENT: Head exam is unremarkable. Neck is without jugular venous distension. LUNGS: Breath sounds decreased. HEART: Rate and Rhythm are regular. ABDOMEN: Soft, nontender. EXTREMITITES: Chronic changes noted. 1+ edema. Objective - Vital Signs Vital signs: Vital Signs Temp 98.3 F 04/05/20 08:00 Pulse 61 04/05/20 08:00 Resp 20 04/05/20 08:00 BP 125/64 04/05/20 08:00 Pulse Ox 99 04/05/20 08:00 Intake & Output 04/04/20 04/05/20 04/05/20 18:59 06:59 18:59 Intake Total 1833 10 240 Output Total 1999 Balance -167 10 240 Weight 89.1 kg 42.1 kg Intake: IV 10 0.9 10 Oral 1833 240 Output: Hemodialysis 1999 Other: # Voids 0 0 # Bowel Movements 1 - Labs CBC & Chem 7: 04/05/20 07:45 04/05/20 07:44 Labs: Abnormal Lab Results - Last 24 Hours (Table) 04/04/20 04/04/20 04/04/20 Range/Units 11:41 17:23 20:33 RBC (3.80-5.40) m/uL Hgb (11.4-16.0) gm/dL Hct (34.0-46.0) % RDW (11.5-15.5) % Lymphocytes # (1.0-4.8) k/uL Eosinophils # (0-0.7) k/uL PT (9.0-12.0) sec INR (<1.2) Sodium (137-145) mmol/L Potassium (3.5-5.1) mmol/L Chloride (98-107) mmol/L BUN (7-17) mg/dL Creatinine (0.52-1.04) mg/dL Glucose (74-99) mg/dL POC Glucose (mg/dL) 164 H 260 H 318 H (75-99) mg/dL Albumin (3.5-5.0) g/dL 04/05/20 04/05/20 04/05/20 Range/Units 06:22 07:44 07:45 RBC (3.80-5.40) m/uL Hgb (11.4-16.0) gm/dL Hct (34.0-46.0) % RDW (11.5-15.5) % Lymphocytes # (1.0-4.8) k/uL Eosinophils # (0-0.7) k/uL PT 28.3 H (9.0-12.0) sec INR 2.9 H (<1.2) Sodium 132 L (137-145) mmol/L Potassium 3.3 L (3.5-5.1) mmol/L Chloride 96 L (98-107) mmol/L BUN 33 H (7-17) mg/dL Creatinine 5.23 H (0.52-1.04) mg/dL Glucose 118 H (74-99) mg/dL POC Glucose (mg/dL) 120 H (75-99) mg/dL Albumin 3.1 L (3.5-5.0) g/dL 04/05/20 Range/Units 07:45 RBC 3.52 L (3.80-5.40) m/uL Hgb 10.8 L (11.4-16.0) gm/dL Hct 33.6 L (34.0-46.0) % RDW 16.8 H (11.5-15.5) % Lymphocytes # 0.7 L (1.0-4.8) k/uL Eosinophils # 1.5 H (0-0.7) k/uL PT (9.0-12.0) sec INR (<1.2) Sodium (137-145) mmol/L Potassium (3.5-5.1) mmol/L Chloride (98-107) mmol/L BUN (7-17) mg/dL Creatinine (0.52-1.04) mg/dL Glucose (74-99) mg/dL POC Glucose (mg/dL) (75-99) mg/dL Albumin (3.5-5.0) g/dL Microbiology - Last 24 Hours (Table) 04/03/20 15:26 Blood Culture - Preliminary Blood No Growth after 24 hours 04/03/20 15:38 Blood Culture - Preliminary Blood No Growth after 24 hours Assessment and Plan Plan: Assessment: 1. End-stage renal disease maintained on hemodialysis on Friday schedule. 2. Hypertension with chronic kidney disease. Stable. 3. Chronic kidney disease mineral bone disease maintained on PhosLo. 4. Diabetes mellitus. 5. Recent covid infection in February 2020. 6. Volume overload. 7. Hypokalemia from diuresis and Kayexalate. Patient does have elevated potassium levels outpatient. Plan: Currently seen while undergoing hemodialysis. Next treatment on Friday. Repeat potassium level this evening. Anticipate discharge soon back to ECF.
[2020-04-05 11:39] LABS: Glucose,Whole Blood 102 mg/dL (75-99)
--- NOTE | 2020-04-05 13:01 | P.PN ---
Subjective Progress Note Date: 04/05/20 CHIEF COMPLAINT: Congestive heart failure HISTORY OF PRESENT ILLNESS: 04/04/2020 This is a 64-year-old female with a past medical history significant for bowman ry artery disease with previous PCI, hypertension, hyperlipidemia, diabetes mellitus, and end-stage renal disease on hemodialysis. Patient follows in the office with Dr. Smith. We have been asked to see the patient in consultation for CHF. Patient was brought to the hospital for altered mental status from her ECF. Patient apparently was not feeling well yesterday and missed her dialysis session. Patient is a poor historian and is unable to provide HPI. Patient is currently receiving hemodialysis during examination. She denies chest pain or pressure. Denies shortness of breath. Echocardiogram completed in February 2020 reveals ejection fraction 35-40%, predominantly apical hypokinesis with preserved basal function which may be consistent with Takostubos cardiomyopathy, mild mitral regurgitation, moderate tricuspid regurgitation and moderate pulmonary hypertension Most recent cardiac catheterization performed in March 2019 reveals total occlusion of the diagonal branch. First obtuse marginal totally occluded. Recently stented LAD is widely patent with good flow. RCA has no significant disease. 04/05/2020 Patient examined this morning at the bedside. She denies chest pain or pressure. Denies shortness of breath. She received hemodialysis yesterday with removal of 2 L. She is also receiving hemodialysis at the time of examination today. Vital signs are stable. Echocardiogram completed revealing ejection fraction 30-35% PHYSICAL EXAM: VITAL SIGNS: Reviewed. GENERAL: Well-developed in no acute distress. HEENT: Head is normocephalic. Pupils are equal, round. Sclerae anicteric. Mucous membranes of the mouth are moist. Neck supple. No JVD or thyromegaly LUNGS: Respirations even and unlabored. Lungs diminished bilaterally. HEART: Regular rate and rhythm. S1 and S2 heard. Systolic murmur noted ABDOMEN: Soft. Nondistended. Nontender. EXTREMITIES: Normal range of motion. No clubbing or cyanosis. Peripheral pulses intact. 1+ bilateral lower extremity edema NEUROLOGIC: Awake and alert. Oriented x 1. ASSESSMENT: Altered mental status End-stage renal disease on hemodialysis Volume overload secondary to missed HD session Coronary artery disease with previous multivessel PCI Abnormal troponins, secondary to chronic kidney disease History of sick sinus syndrome, s/p dual chamber pacemaker Hypertension Hyperlipidemia History of Covid 19 PLAN: Continue hemodialysis per nephrology Continue current medications Patient is stable from a cardiac perspective for discharge. Will defer to internal medicine. We will sign off. Please reconsult if needed. Nurse practitioner note has been reviewed by physician. Signing provider agrees with the documented findings, assessment, and plan of care. Objective - Vital Signs Vital signs: Vital Signs Temp 98.4 F 04/05/20 11:51 Pulse 633 H 04/05/20 11:51 Resp 18 04/05/20 11:51 BP 139/68 04/05/20 11:51 Pulse Ox 98 04/05/20 11:39 Intake & Output 04/04/20 04/05/20 04/05/20 18:59 06:59 18:59 Intake Total 1833 10 240 Output Total 1999 1999 Balance -167 10 -1760 Weight 89.1 kg 42.1 kg Intake: IV 10 0.9 10 Oral 1833 240 Output: Hemodialysis 1999 1999 Other: # Voids 0 0 # Bowel Movements 1 - Labs CBC & Chem 7: 04/05/20 07:45 04/05/20 07:44 Labs: Abnormal Lab Results - Last 24 Hours (Table) 04/04/20 04/04/20 04/05/20 Range/Units 17:23 20:33 06:22 RBC (3.80-5.40) m/uL Hgb (11.4-16.0) gm/dL Hct (34.0-46.0) % RDW (11.5-15.5) % Lymphocytes # (1.0-4.8) k/uL Eosinophils # (0-0.7) k/uL PT (9.0-12.0) sec INR (<1.2) Sodium (137-145) mmol/L Potassium (3.5-5.1) mmol/L Chloride (98-107) mmol/L BUN (7-17) mg/dL Creatinine (0.52-1.04) mg/dL Glucose (74-99) mg/dL POC Glucose (mg/dL) 260 H 318 H 120 H (75-99) mg/dL Albumin (3.5-5.0) g/dL 04/05/20 04/05/20 04/05/20 Range/Units 07:44 07:45 07:45 RBC 3.52 L (3.80-5.40) m/uL Hgb 10.8 L (11.4-16.0) gm/dL Hct 33.6 L (34.0-46.0) % RDW 16.8 H (11.5-15.5) % Lymphocytes # 0.7 L (1.0-4.8) k/uL Eosinophils # 1.5 H (0-0.7) k/uL PT 28.3 H (9.0-12.0) sec INR 2.9 H (<1.2) Sodium 132 L (137-145) mmol/L Potassium 3.3 L (3.5-5.1) mmol/L Chloride 96 L (98-107) mmol/L BUN 33 H (7-17) mg/dL Creatinine 5.23 H (0.52-1.04) mg/dL Glucose 118 H (74-99) mg/dL POC Glucose (mg/dL) (75-99) mg/dL Albumin 3.1 L (3.5-5.0) g/dL 04/05/20 Range/Units 11:37 RBC (3.80-5.40) m/uL Hgb (11.4-16.0) gm/dL Hct (34.0-46.0) % RDW (11.5-15.5) % Lymphocytes # (1.0-4.8) k/uL Eosinophils # (0-0.7) k/uL PT (9.0-12.0) sec INR (<1.2) Sodium (137-145) mmol/L Potassium (3.5-5.1) mmol/L Chloride (98-107) mmol/L BUN (7-17) mg/dL Creatinine (0.52-1.04) mg/dL Glucose (74-99) mg/dL POC Glucose (mg/dL) 102 H (75-99) mg/dL Albumin (3.5-5.0) g/dL Microbiology - Last 24 Hours (Table) 04/03/20 15:26 Blood Culture - Preliminary Blood No Growth after 24 hours 04/03/20 15:38 Blood Culture - Preliminary Blood No Growth after 24 hours
--- NOTE | 2020-04-05 14:33 | P.PN ---
Subjective Progress Note Date: 04/04/20 This is a 64-year-old obese female patient of paty, Dr. JAE Jc, and Dr. Talley with multiple medical problem was known to have end-stage kidney disease on hemodialysis Friday, coronary artery disease and prior coronary artery stenting, diabetes type 2 insulin requiring, dyslipidemia, history of permanent pacemaker. Patient is a long-term resident at [facility] developed to have COVID-19 during an outbreak that affected [facility] on [facility] and she was sent to [facility] for evaluation and treatment and she eventually was sent back to [facility] on the [place] however she became very weak and has not gotten back to her baseline , I received a call from the staff at [facility] stating that Ethel is not eating and she is not responding much becomes encephalopathic with low grade temperature and she did not go to her dialysis, so she was directed to go to the ER at [facility] for evaluation and she was found to have mild anemia, INR is therapeutic 2.2 , no leukocytosis, mild elevated Troponin, EKG did show underlying atrial fibrillation with left bundle branch block, CT scan of the brain showed diffuse age realted atrophy without new changes, CXR showed Pulmonary congestion with pulmonary arterial hypertension, she was admitted to the hospital for evaluation by cardiology and nephrology with planned HD for the next 2 days. 04/04: Patient is seen today in follow-up, mental status is improving. Weakness seems to be slightly improved from yesterday. She is complaining of phlegm production. She has tolerated diet without nausea or vomiting. Patient maintained on Friday hemodialysis schedule but will receive hemodialysis today and tomorrow. Patient has been afebrile, heart rate 60, blood pressure 140/70, pulse ox 94% on room air. 3. The appointment, hemoglobin 10.3, platelet count 162. INR 2.8. Pharmacy is dosing Coumadin. Sodium 132, potassium 3.9, chloride 95, CO2 25, BUN 49 and creatinine 7.01. Blood sugars labile running between 164 and 318. Echocardiogram reveals EF of 30-35%, moderate to severe tricuspid regurgitation. Patient was seen by cardiology with recommendations to continue home medications. Objective - Vital Signs Vital signs: Vital Signs Temp 98.4 F 04/05/20 11:51 Pulse 633 H 04/05/20 11:51 Resp 18 04/05/20 11:51 BP 139/68 04/05/20 11:51 Pulse Ox 98 04/05/20 11:39 Intake & Output 04/04/20 04/05/20 04/05/20 18:59 06:59 18:59 Intake Total 1833 10 240 Output Total 1999 1999 Balance -167 10 -1760 Weight 89.1 kg 42.1 kg Intake: IV 10 0.9 10 Oral 1833 240 Output: Urine 0 Stool 0 Hemodialysis 1999 1999 Other: # Voids 0 0 0 # Bowel Movements 1 0 - Exam Review of Systems Constitutional: Reports anorexia, Reports chronic pain, Reports fatigue, Reports lethargy, Reports malaise, Reports weakness, Reports weight loss Eyes: denies blurred vision, denies bulging eye, denies decreased vision Ears, nose, mouth and throat: Denies dysphagia, Denies neck lump, Denies sore throat Cardiovascular: Reports decreased exercise tolerance, Reports dyspnea on exertion, Reports leg edema, Reports orthopnea, Reports shortness of breath, Denies chest pain, Denies rapid heart beat, Denies syncope Respiratory: Reports sleep apnea, Reports snoring, Denies congestion, Denies cough, Denies cough with sputum, Denies home oxygen, Denies wheezing Gastrointestinal: Reports constipation, Reports loss of appetite, Reports nausea, Denies abdominal pain, Denies bloating, Denies change in bowel habits, Denies early satiety, Denies hematemesis, Denies hematochezia, Denies indigestion, Denies melena, Denies vomiting Genitourinary: Denies dysuria, Denies nocturia Menstruation: Reports postmenopausal Musculoskeletal: Reports atrophy, Reports frequent falls, Reports gait dysfunction, Reports loss of height, Reports low back pain, Reports morning stiffness Musculoskeletal: bilateral: ankle pain, ankle stiffness, ankle swelling, foot pain, foot stiffness, foot swelling, absent: elbow pain, elbow stiffness, elbow swelling, hand pain, hand stiffness, hand swelling, hip pain, hip stiffness, hip swelling, knee pain, knee stiffness, knee swelling, shoulder pain, shoulder stiffness, shoulder swelling, wrist pain, wrist stiffness, wrist swelling Integumentary: Denies pruritus, Denies rash Neurological: Reports change in mentation, Reports confusion, Reports gait dysfunction, Reports memory loss, Reports sensory deficit, Reports weakness Psychiatric: Reports anxiety, Reports depression, Denies sadness/tearfulness, Denies sleep disturbances, Denies suicidal ideation Endocrine: Denies fatigue, Denies weight change Physical examination: General: 64-year-old female who is laying down in bed appears to be very weak does not appear to be in acute distress at this point in time. HEENT: Head is atraumatic, normocephalic, pupils were equal round reactive to light and recommendation, extraocular muscle movement were intact, sclera nonicteric, conjunctivae were pale, mucous membranes of the mouth are somewhat dry. Neck: Supple, no JVP, decreased carotid upstroke bilaterally, no lymphadenopathy. Chest: Decreased breath sounds at the bases, few rhonchi, no extremity wheezes, no chest wall tenderness, no intercostal retractions. Heart: First heart sound is depressed, second heart sounds normal, there is systolic ejection murmur 2/6 located in the left sternal border. Abdomen: Soft, nontender, nondistended, positive bowel sounds. Extremities: There is no edema no calf tenderness DP +1 bilaterally. Neurologic examination: Patient is awake alert and oriented 2, cranial nerves III-12 appear grossly intact, muscle power were 4 out of 5 in upper extremities and 3 out of 5 in bilateral lower extremities, deep tendon reflexes were depressed bilaterally, there is also neuropathic changes to both lower extremity with decreased sensation. - Labs CBC & Chem 7: 04/05/20 07:45 04/05/20 07:44 Labs: Abnormal Lab Results - Last 24 Hours (Table) 04/04/20 04/04/20 04/05/20 Range/Units 17:23 20:33 06:22 RBC (3.80-5.40) m/uL Hgb (11.4-16.0) gm/dL Hct (34.0-46.0) % RDW (11.5-15.5) % Lymphocytes # (1.0-4.8) k/uL Eosinophils # (0-0.7) k/uL PT (9.0-12.0) sec INR (<1.2) Sodium (137-145) mmol/L Potassium (3.5-5.1) mmol/L Chloride (98-107) mmol/L BUN (7-17) mg/dL Creatinine (0.52-1.04) mg/dL Glucose (74-99) mg/dL POC Glucose (mg/dL) 260 H 318 H 120 H (75-99) mg/dL Albumin (3.5-5.0) g/dL 04/05/20 04/05/20 04/05/20 Range/Units 07:44 07:45 07:45 RBC 3.52 L (3.80-5.40) m/uL Hgb 10.8 L (11.4-16.0) gm/dL Hct 33.6 L (34.0-46.0) % RDW 16.8 H (11.5-15.5) % Lymphocytes # 0.7 L (1.0-4.8) k/uL Eosinophils # 1.5 H (0-0.7) k/uL PT 28.3 H (9.0-12.0) sec INR 2.9 H (<1.2) Sodium 132 L (137-145) mmol/L Potassium 3.3 L (3.5-5.1) mmol/L Chloride 96 L (98-107) mmol/L BUN 33 H (7-17) mg/dL Creatinine 5.23 H (0.52-1.04) mg/dL Glucose 118 H (74-99) mg/dL POC Glucose (mg/dL) (75-99) mg/dL Albumin 3.1 L (3.5-5.0) g/dL 04/05/20 Range/Units 11:37 RBC (3.80-5.40) m/uL Hgb (11.4-16.0) gm/dL Hct (34.0-46.0) % RDW (11.5-15.5) % Lymphocytes # (1.0-4.8) k/uL Eosinophils # (0-0.7) k/uL PT (9.0-12.0) sec INR (<1.2) Sodium (137-145) mmol/L Potassium (3.5-5.1) mmol/L Chloride (98-107) mmol/L BUN (7-17) mg/dL Creatinine (0.52-1.04) mg/dL Glucose (74-99) mg/dL POC Glucose (mg/dL) 102 H (75-99) mg/dL Albumin (3.5-5.0) g/dL Microbiology - Last 24 Hours (Table) 04/03/20 15:26 Blood Culture - Preliminary Blood No Growth after 24 hours 04/03/20 15:38 Blood Culture - Preliminary Blood No Growth after 24 hours Assessment and Plan Assessment: Assessment and Plan: 1. Severe metabolic enecephalopathy due to ESRD with cardiac debility and cardiomyopathy. patient will undergo HD for the next 2 days. Echocardiogram as above. 2. Recent NSTEMI. we will continue with ASA 81 mg orally daily, PLavix 75 mg orally daily and Lipitor 80 mg orally daily and add small dose of Coreg 3.125 mg orally bid, cardiology evaluation, we will check Echocardiogram for evaluation of her LVF and wall motion. 3. Recent COVID . recovered. 4. End-stage renal disease on hemodialysis Friday. Nephrology consult appreciated Continue Nephrocaps, KareysLo. Hemodialysis scheduled for today and tomorrow. 5. History of coronary artery disease with prior stenting of the LAD. We will continue the patient on aspirin 81 mg once every day, Plavix 75 mg orally once every day, Lipitor 80 mg once every day, added Coreg 3.125 mg orally bid. 6. Hyponatremia likely related to hypovolemia post hemodialysis yesterday. Monitor the patient CMP. 7. Anemia of chronic kidney disease. stable. 8. Hypertension and hypertensive cardiovascular disease. Continue amlodipine 2.5 mg daily and add Coreg 3.125 mg orally bid. 9. Hyperlipidemia. Continue atorvastatin 80 mg at bedtime 10. Gastroesophageal reflux disease and GI prophylaxis. we will continue with Protonix 40 mg orally daily. 11. Diabetes mellitus type 2, insulin requiring. We will continue Levemir 18 units at bedtime along with the Humalog per sliding scale insulin. 12. Generalized anxiety disorder and recurrent depression. Continue Lexapro 20 mg orally once every day as well as Ativan 1 mg orally twice every day. 13. Hypothyroidism. Continue patient on levothyroxine 175 g orally once every day. 14. history of symptomatic Bradycardia and recently was diagnosed with atrial fibrillation post PPM amd currently fully anticoagulated. 15. DVT prophylaxis. we will contiue with coumadin INR is therapeutic. 16. GI prophylaxis. we will contiue with Protonix 40 mg orally daily. 17. Medical debility. Physical therapy evaluation. 18. cellophane worker consultation for discharge planning to [facility]. 19. Patient is full code. 20. Admit to inpatient. Estimated length of stay 2 midnights.
--- NOTE | 2020-04-05 15:14 | P.DS ---
Providers Date of admission: 04/03/20 18:10 Expected date of discharge: 04/05/20 Attending physician: Kimberli Gar Consults: 04/03/20 18:10 Consult Physician Routine Consulting Provider: Rom Cleveland Consult Reason/Comments: chf Do you want consulting provider notified?: Yes Consult Physician Stat Consulting Provider: Tate Souza Consult Reason/Comments: chf Do you want consulting provider notified?: Already Contacted Primary care physician: Kimberli Gar Hospital Course: This is a 64-year-old obese female patient of paty, Dr. JAE Jc, and Dr. Talley with multiple medical problem was known to have end-stage kidney disease on hemodialysis Friday, coronary artery disease and prior coronary artery stenting, diabetes type 2 insulin requiring, dyslipidemia, history of permanent pacemaker. Patient is a long-term resident at [facility] developed to have COVID-19 during an outbreak that affected [facility] on [facility] and she was sent to [facility] for evaluation and treatment and she eventually was sent back to [facility] on the [place] however she became very weak and has not gotten back to her baseline , I received a call from the staff at [facility] stating that Ethel is not eating and she is not responding much becomes encephalopathic with low grade temperature and she did not go to her dialysis, so she was directed to go to the ER at [facility] for evaluation and she was found to have mild anemia, INR is therapeutic 2.2 , no leukocytosis, mild elevated Troponin, EKG did show underlying atrial fibrillation with left bundle branch block, CT scan of the brain showed diffuse age realted atrophy without new changes, CXR showed Pulmonary congestion with pulmonary arterial hypertension, she was admitted to the hospital for evaluation by cardiology and nephrology with planned HD for the next 2 days. 04/04: Patient is seen today in follow-up, mental status is improving. Weakness seems to be slightly improved from yesterday. She is complaining of phlegm production. She has tolerated diet without nausea or vomiting. Patient maintained on Friday hemodialysis schedule but will receive hemodialysis today and tomorrow. Patient has been afebrile, heart rate 60, blood pressure 140/70, pulse ox 94% on room air. 3. The appointment, hemoglobin 10.3, platelet count 162. INR 2.8. Pharmacy is dosing Coumadin. Sodium 132, potassium 3.9, chloride 95, CO2 25, BUN 49 and creatinine 7.01. Blood sugars labile running between 164 and 318. Echocardiogram reveals EF of 30-35%, moderate to severe tricuspid regurgitation. Patient was seen by cardiology with recommendations to continue home medications. 04/05: Patient states that she is feeling well today. She states she is eating well. She denies any cough or shortness of breath. Mental status is improved. Patient states that she underwent hemodialysis this morning at 8 AM. She has been afebrile, heart rate 63, blood pressure 139/68, pulse ox 90% on room air. The CBC 8.9, hemoglobin 10.8, platelet count 187. Sodium 132, potassium 3.3, chloride 96, CO2 27, BUN 33 and creatinine 5.23. Blood sugars run between 102 and 120. She did have a blood sugar 318 at night. Patient is agreeable for discharge. Patient will be discharged back to [facility] today in stable condition. DISCHARGE DIAGNOSES 1. Severe metabolic enecephalopathy due to ESRD with cardiac debility and cardiomyopathy. 2. Recent NSTEMI. 3. Recent COVID, recovered. 4. End-stage renal disease on hemodialysis Friday. 5. History of coronary artery disease with prior stenting of the LAD. 6. Hyponatremia likely related to hypovolemia post hemodialysis. 7. Anemia of chronic kidney disease. stable. 8. Hypertension and hypertensive cardiovascular disease. 9. Hyperlipidemia. 10. Gastroesophageal reflux disease. 11. Diabetes mellitus type 2, insulin requiring. 12. Generalized anxiety disorder and recurrent depression. 13. Hypothyroidism. 14. history of symptomatic Bradycardia and recently was diagnosed with atrial fibrillation post PPM aNd currently fully anticoagulated. 15. Medical debility. Discharge plan: Return to [facility] Impression and plan of care have been directed as dictated by the signing physician. Emely Contreras nurse practitioner acting as scribe for signing physician. Patient Condition at Discharge: Good Plan - Discharge Summary Discharge Rx Participant: No New Discharge Prescriptions: New HYDROcodone/APAP 10-325MG [Bellwood 10-325] 1 each PO Q12H PRN #6 tab PRN Reason: pain Continue Atorvastatin [Lipitor] 80 mg PO HS@2100 Calcium Acetate [PhosLo] 2,001 mg PO AC-TID@08,12,17 Acetaminophen Tab [Tylenol] 500 mg PO Q6H PRN PRN Reason: Pain Docusate Sodium [Dok] 100 mg PO BID@0900,2100 Folic Acid-Vit B Complex-Vit C [Nephrocaps] 1 cap PO MOWEFR@2100 Folic Acid-Vit B Complex-Vit C [Nephrocaps] 1 mg PO SUTUTHSA@0900 Melatonin 10 mg PO HS@2100 Escitalopram [Lexapro] 20 mg PO DAILY@0900 Nitroglycerin Sl Tabs [Nitrostat] 0.4 mg SUBLINGUAL Q5M PRN tab PRN Reason: Chest Pain amLODIPine [Norvasc] 2.5 mg PO DAILY@0900 Clopidogrel [Plavix] 75 mg PO DAILY@0900 Levothyroxine Sodium [Synthroid] 175 mcg PO DAILY@0600 Sodium Polystyrene Sulfonate 15 gm PO SUTUTHSA@0900 Lidocaine-Prilocaine Cream [Emla Cream 2.5%/2.5%] 1 applic TOPICAL MOWEFR@0830 Furosemide [Lasix] 80 mg PO DAILY@0900 Aspirin 81 mg PO DAILY@0900 INSULIN LISPRO (humaLOG) [humaLOG] See Protocol SQ ACHS Magnesium Hydroxide [Milk of Magnesia] 2,400 mg PO DAILY PRN PRN Reason: Constipation Sennosides [Senna] 8.6 mg PO DAILY PRN PRN Reason: Constipation Insulin Detemir (Levemir) [Levemir] 18 unit SQ HS syr Warfarin Sodium 4 mg PO DAILY@1700 carvediloL [Coreg] 3.125 mg PO BID@0900,1700 INSULIN ASPART (NovoLOG) [NovoLOG (formulary)] 2 unit SQ ACHS PRN PRN Reason: HIGH BLOOD SUGAR LORazepam [Ativan] 1 mg PO BID@0900,2100 #6 tab Discontinued Hydrocodone/Acetaminophen [Bellwood 10-325] 1 tab PO Q12H PRN PRN Reason: pain Discharge Medication List Atorvastatin [Lipitor] 80 mg PO HS@209912/27/16 [History] Calcium Acetate [PhosLo] 2,001 mg PO AC-TID@08,12,17 09/02/18 [History] Acetaminophen Tab [Tylenol] 500 mg PO Q6H PRN 01/11/19 [History] Docusate Sodium [Dok] 100 mg PO BID@0900,209901/11/19 [History] Escitalopram [Lexapro] 20 mg PO DAILY@89904/02/19 [History] Folic Acid-Vit B Complex-Vit C [Nephrocaps] 1 cap PO MOWEFR@209904/02/19 [History] Folic Acid-Vit B Complex-Vit C [Nephrocaps] 1 mg PO SUTUTHSA@89904/02/19 [History] Melatonin 10 mg PO HS@209904/02/19 [History] Nitroglycerin Sl Tabs [Nitrostat] 0.4 mg SUBLINGUAL Q5M PRN tab 04/06/19 [Rx] Clopidogrel [Plavix] 75 mg PO DAILY@89904/09/19 [History] amLODIPine [Norvasc] 2.5 mg PO DAILY@89904/09/19 [History] Levothyroxine Sodium [Synthroid] 175 mcg PO DAILY@0611/05/19 [History] Sodium Polystyrene Sulfonate 15 gm PO SUTUTHSA@89911/05/19 [History] Lidocaine-Prilocaine Cream [Emla Cream 2.5%/2.5%] 1 applic TOPICAL MOWEFR@82911/23/19 [History] Furosemide [Lasix] 80 mg PO DAILY@89901/28/20 [History] Aspirin 81 mg PO DAILY@89902/28/20 [History] INSULIN LISPRO (humaLOG) [humaLOG] See Protocol SQ ACHS 02/28/20 [History] Magnesium Hydroxide [Milk of Magnesia] 2,400 mg PO DAILY PRN 02/28/20 [History] Sennosides [Senna] 8.6 mg PO DAILY PRN 02/28/20 [History] Insulin Detemir (Levemir) [Levemir] 18 unit SQ HS syr 03/04/20 [Rx] INSULIN ASPART (NovoLOG) [NovoLOG (formulary)] 2 unit SQ ACHS PRN 04/03/20 [History] Warfarin Sodium 4 mg PO DAILY@169904/03/20 [History] carvediloL [Coreg] 3.125 mg PO BID@0900,1700 04/03/20 [History] HYDROcodone/APAP 10-325MG [Bellwood 10-325] 1 each PO Q12H PRN #6 tab 04/05/20 [Rx] LORazepam [Ativan] 1 mg PO BID@0900,2100 #6 tab 04/05/20 [Rx] Follow up Appointment(s)/Referral(s): Kimberli Gar MD [Primary Care Provider] - 1 Week (at [facility])
[2020-04-05 16:30] VITALS: BP 135/67; PULSE 62; RESP 18; TEMP 98
[2020-04-05 16:34] LABS: Glucose,Whole Blood 212 mg/dL (75-99)
[2020-04-05] MEDS ORDERED: WARFARIN 1 MG TAB PO ONE (18:00)
[2020-04-05] MEDS ORDERED: INSULIN DETEMIR (LEVEMIR) 100 UNIT/ML SYR SQ SCH (21:00)
[2020-04-05] MEDS ORDERED: FOLIC ACID-VIT B COMPLEX-VIT C 1 CAP PO SCH (21:00)
== END 2020-04-05 19:35 | DRG 291 ==
LOC: EC 14:47 → 3SCARD 18:10
PROVIDERS: ADMIT Internal Medicine; ATTEND Internal Medicine
PROC: 5A1D70Z Performance of Urinary Filtration, Intermittent, Less than 6 Hours Per Day (ICD-10-PCS; principal; 2020-04-03)
DX: I13.2 Hypertensive heart and chronic kidney disease with heart failure and with stage 5 chronic kidney disease, or end stage renal disease (principal); N18.6 End stage renal disease; G93.41 Metabolic encephalopathy; E87.1 Hypo-osmolality and hyponatremia; B15.9 Hepatitis A without hepatic coma; Z16.22 Resistance to vancomycin related antibiotics; D63.1 Anemia in chronic kidney disease; E03.9 Hypothyroidism, unspecified; E11.22 Type 2 diabetes mellitus with diabetic chronic kidney disease; E66.9 Obesity, unspecified; E78.5 Hyperlipidemia, unspecified; E86.1 Hypovolemia; E87.6 Hypokalemia; F03.90 Unspecified dementia, unspecified severity, without behavioral disturbance, psychotic disturbance, mood disturbance, and anxiety; F31.9 Bipolar disorder, unspecified; F41.1 Generalized anxiety disorder; I07.1 Rheumatic tricuspid insufficiency; I25.10 Atherosclerotic heart disease of native coronary artery without angina pectoris; I25.2 Old myocardial infarction; I25.5 Ischemic cardiomyopathy; I25.82 Chronic total occlusion of coronary artery; I27.20 Pulmonary hypertension, unspecified; I48.91 Unspecified atrial fibrillation; I50.9 Heart failure, unspecified; K21.9 Gastro-esophageal reflux disease without esophagitis; N25.0 Renal osteodystrophy; Z79.02 Long term (current) use of antithrombotics/antiplatelets; Z79.4 Long term (current) use of insulin; Z79.82 Long term (current) use of aspirin; Z79.890 Hormone replacement therapy; Z79.899 Other long term (current) drug therapy; Z82.49 Family history of ischemic heart disease and other diseases of the circulatory system; Z83.3 Family history of diabetes mellitus; Z86.16 Personal history of COVID-19; Z90.710 Acquired absence of both cervix and uterus; Z95.0 Presence of cardiac pacemaker; Z95.5 Presence of coronary angioplasty implant and graft; Z96.41 Presence of insulin pump (external) (internal); Z98.84 Bariatric surgery status; Z99.2 Dependence on renal dialysis; Z99.3 Dependence on wheelchair; Z88.0 Allergy status to penicillin; Z88.8 Allergy status to other drugs, medicaments and biological substances; Z91.041 Radiographic dye allergy status; E55.9 Vitamin D deficiency, unspecified; J30.9 Allergic rhinitis, unspecified; Z86.14 Personal history of Methicillin resistant Staphylococcus aureus infection; Z90.49 Acquired absence of other specified parts of digestive tract; Z98.890 Other specified postprocedural states; Z98.42 Cataract extraction status, left eye; Z98.41 Cataract extraction status, right eye; Z96.1 Presence of intraocular lens
CPT/HCPCS: 36415; 70450; 71046; 80053; 82009; 83605; 83880; 84132; 84484; 85025; 85610; 85730; 87040; 87635; 90935; 93005; 93308; 99285

== ENCOUNTER 2020-04-10 10:14 | Observation (INO) | payer MEDICARE, OTHER ==
[2020-04-10] MEDS ORDERED: ASPIRIN 81 MG PO STA (10:22)
[2020-04-10] MEDS ORDERED: SODIUM CHLORIDE 0.9% 1,000 ML IV STA (10:22)
[2020-04-10] MEDS ORDERED: NITROGLYCERIN SL TABS 0.4 MG TAB SUBLINGUAL STA (10:22)
--- NOTE | 2020-04-10 10:25 | ED ---
General Adult HPI - General Source: EMS, RN notes reviewed Mode of arrival: EMS Limitations: no limitations <Tim Lagunas - Last Filed: 04/10/20 11:48> <Gilberto Rod - Last Filed: 04/10/20 11:52> - General Chief complaint: Chest Pain Stated complaint: Chest Pain Time Seen by Provider: 04/10/20 10:15 - History of Present Illness Initial comments: Patient 64-year-old female presented to the emergency room today by EMS, the chief complaint of chest pain that started approximately an hour ago. She does not that she was on her way to dialysis. She states she got into the van ago she can having some chest discomfort. Patient describes it as a "continuous" type pain. She is unable to describe it otherwise. Rates it a 10/10. She states feels different from any chest pain that she's had in the past. Patient denies any other complaints or any other associated symptoms with it. Patient denies any recent fever, chills, shortness of breath, back pain, abdominal pain, nausea or vomiting, numbness or tingling, headaches or visual changes, or any other complaints. (Tim Lagunas) - Related Data Home Medications Medication Instructions Recorded Confirmed Atorvastatin [Lipitor] 80 mg PO HS@209912/27/16 04/03/20 Calcium Acetate [PhosLo] 2,001 mg PO AC-TID@,,09/02/18 04/03/20 Acetaminophen Tab [Tylenol] 500 mg PO Q6H PRN 01/11/19 04/03/20 Docusate Sodium [Dok] 100 mg PO BID@899,209901/11/19 04/03/20 Escitalopram [Lexapro] 20 mg PO DAILY@89904/02/19 04/03/20 Folic Acid-Vit B Complex-Vit C 1 cap PO MOWEFR@209904/02/19 04/03/20 [Nephrocaps] Folic Acid-Vit B Complex-Vit C 1 mg PO SUTUTHSA@89904/02/19 04/03/20 [Nephrocaps] Melatonin 10 mg PO HS@209904/02/19 04/03/20 Clopidogrel [Plavix] 75 mg PO DAILY@89904/09/19 04/03/20 amLODIPine [Norvasc] 2.5 mg PO DAILY@0900 04/09/19 04/03/20 Levothyroxine Sodium [Synthroid] 175 mcg PO DAILY@0600 11/05/19 04/03/20 Sodium Polystyrene Sulfonate 15 gm PO SUTUTHSA@0900 11/05/19 04/03/20 Lidocaine-Prilocaine Cream [Emla 1 applic TOPICAL MOWEFR@0830 11/23/19 04/03/20 Cream 2.5%/2.5%] Furosemide [Lasix] 80 mg PO DAILY@0900 01/28/20 04/03/20 Aspirin 81 mg PO DAILY@0900 02/28/20 04/03/20 INSULIN LISPRO (humaLOG) [humaLOG] See Protocol SQ ACHS 02/28/20 04/03/20 Magnesium Hydroxide [Milk of 2,400 mg PO DAILY PRN 02/28/20 04/03/20 Magnesia] Sennosides [Senna] 8.6 mg PO DAILY PRN 02/28/20 04/03/20 INSULIN ASPART (NovoLOG) [NovoLOG 2 unit SQ ACHS PRN 04/03/20 04/03/20 (formulary)] Warfarin Sodium 4 mg PO DAILY@1700 04/03/20 04/03/20 carvediloL [Coreg] 3.125 mg PO BID@0900,1700 04/03/20 04/03/20 Previous Rx's Medication Instructions Recorded Nitroglycerin Sl Tabs [Nitrostat] 0.4 mg SUBLINGUAL Q5M PRN tab 04/06/19 Insulin Detemir (Levemir) [Levemir] 18 unit SQ HS syr 03/04/20 HYDROcodone/APAP 10-325MG [Marquand 1 each PO Q12H PRN #6 tab 04/05/20 10-325] LORazepam [Ativan] 1 mg PO BID@0900,2100 #6 tab 04/05/20 Allergies Allergy/AdvReac Type Severity Reaction Status Date / Time adhesive Allergy Rash/Hives Verified 04/10/20 10:19 Penicillins Allergy Rash/Hives Verified 04/10/20 10:19 Iodinated Contrast Media AdvReac KIDNEY Verified 04/10/20 10:19 [Iodinated Contrast- Oral FAILURE and IV Dye] metformin AdvReac SUGAR Verified 04/10/20 10:19 LEVEL INCREASE Review of Systems ROS Other: All systems not noted in ROS Statement are negative. <Tim Lagunas - Last Filed: 04/10/20 11:48> ROS Other: All systems not noted in ROS Statement are negative. <Gilberto Rod - Last Filed: 04/10/20 11:52> ROS Statement: Those systems with pertinent positive or pertinent negative responses have been documented in the HPI. Past Medical History Past Medical History: Coronary Artery Disease (CAD), Chest Pain / Angina, Dementia, Diabetes Mellitus, Dialysis, Hyperlipidemia, Hypertension, Liver Disease, Myocardial Infarction (ME), Osteoarthritis (OA), Thyroid Disorder Additional Past Medical History / Comment(s): multiple ME's x18. ischemic cardiomyopathy. 12/29/15 STRESS WNL, ALLERGIC rhinitis,ME, CARDIO-PULMONARY ARREST 07/05/14 vertigo, hypertensive nephrosclerosis, Hepatitis A,Vitamin D deficiency, constipation, hx of a cat bit, fall with broken pelvis Last Myocardial Infarction Date:: 09/2013 History of Any Multi-Drug Resistant Organisms: MRSA, VRE Date of last positivie culture/infection: 11/11/18-VRE; 09/27/17 MRSA MDRO Source:: Urine-VRE; Right Breast-MRSA Past Surgical History: Adenoidectomy, Appendectomy, Cholecystectomy, Heart Catheterization With Stent, Hysterectomy, Tonsillectomy Additional Past Surgical History / Comment(s): mary cataracts, LAP-BAND 2004, Laparoscopic cholecystectomy, FIBULA FX has metal pins in place,Left shoulder surgery, Hemodialysis Cataract bilateral with IOL, fistula and sx to" reroute it",gets dialysis fri-fri-fri. has insulin pump. no bp on left, excisional debreidment rt lower ext., foot surgery Past Anesthesia/Blood Transfusion Reactions: Motion Sickness, Postoperative Nausea & Vomiting (PONV) Additional Past Anesthesia/Blood Transfusion Reaction / Comment(s): blood tr ansfusion-pt stated they gave her medication for a reaction but does'nt rememebr what the reaction was Date of Last Stent Placement:: 2014 Past Psychological History: Anxiety, Bipolar, Depression Smoking Status: Never smoker Past Alcohol Use History: None Reported Past Drug Use History: None Reported - Past Family History Mother Family Medical History: Congestive Heart Failure (CHF), Diabetes Mellitus, Hypertension Father History Unknown: Yes Family Medical History: Diabetes Mellitus Brother(s) Family Medical History: Diabetes Mellitus, Hyperlipidemia Additional Family Medical History / Comment(s): Hypertension chronic kidney disease <Tim Lagunas - Last Filed: 04/10/20 11:48> General Exam Limitations: no limitations <Tim Lagunas - Last Filed: 04/10/20 11:48> - General Exam Comments Initial Comments: General: The patient is awake and alert, in no distress, and does not appear acutely ill. Eye: extra-ocular movements are intact.There is normal conjunctiva bilaterally. No signs of icterus. Ears, nose, mouth and throat: There are moist mucous membranes and no oral lesions. Neck: The neck is supple. Cardiovascular: There is a regular rate and rhythm. No murmur, rub or gallop is appreciated. Respiratory: Lungs are clear to auscultation, respirations are non-labored, breath sounds are equal. No wheezes, stridor, rales, or rhonchi. Gastrointestinal: Admits soft nontender. Musculoskeletal: Normal ROM, no tenderness. Strength 5/5. Sensation intact. Pulses equal bilaterally 2+. Neurological: A&O x 3. CN II-XII intact, There are no obvious motor or sensory deficits. Coordination appears grossly intact. Speech is normal. Skin: Skin is warm and dry and no rashes or lesions are noted. Psychiatric: Cooperative, appropriate mood & affect, normal judgment. (Tim Lagunas) Course <Gilberto Rod - Last Filed: 04/10/20 11:52> Vital Signs 04/10/20 04/10/20 10:19 11:34 Temperature 98.0 F Pulse Rate 60 60 Respiratory 16 16 Rate Blood Pressure 141/68 146/67 O2 Sat by Pulse 97 97 Oximetry - Reevaluation(s) Reevaluation #1: 04/10/20 11:51 PA supervision: I did personally evaluate this case patient did present with complaints of chest pain on her way to dialysis today. It was retrosternal. The patient did not get relief with nitroglycerin. It started within the week after evaluation for CHF she was noted have cardiomyopathy with a 30% ejection fraction. Patient will be admitted imaging shows increased markings compared to last x-ray. I did discuss case with Dr. Gar. Cardiology as well as nephrology will be consulted. Patient is having showing improved 04/10/20 11:52 Additionally the patient was noted have an elevated troponin. (Gilberto Rod) EKG Findings - EKG Comments: EKG Findings:: EKG performed at 1028: Shows a ventricular paced rhythm at 60 bpm. QRS 162. QT/QTc 562/562. No acute ST Change. <Tim Lagunas - Last Filed: 04/10/20 11:48> Medical Decision Making - Lab Data Result diagrams: 04/10/20 10:36 04/10/20 10:36 <Tim Lagunas - Last Filed: 04/10/20 11:48> - Lab Data Result diagrams: 04/10/20 10:36 04/10/20 10:36 <Gilberto Rod - Last Filed: 04/10/20 11:52> - Medical Decision Making Patient reexamined signs she is resting comfortably. Her EKGs been reviewed shows no acute abnormalities. Patient chest x-ray is been compared to previous. Patient BUN/creatinine are elevated. She is due to have dialysis today. Patient troponin is minimally elevated 0.058. Patient will be admitted to the hospital have serial enzymes with consult cardiology also nephrology for dialysis. Case discussed with attending physician Dr. Rod who did discuss with medicine physician Dr. Gar will admit the patient. Patient is with plan states understanding. (Tim Lagunas) - Lab Data Lab Results 04/10/20 04/10/20 04/10/20 Range/Units 10:36 10:36 10:36 WBC 8.0 (3.8-10.6) k/uL RBC 3.63 L (3.80-5.40) m/uL Hgb 11.0 L (11.4-16.0) gm/dL Hct 34.3 (34.0-46.0) % MCV 94.6 (80.0-100.0) fL MCH 30.4 (25.0-35.0) pg MCHC 32.1 (31.0-37.0) g/dL RDW 16.7 H (11.5-15.5) % Plt Count 200 (150-450) k/uL MPV 7.9 Neutrophils % 68 % Lymphocytes % 9 % Monocytes % 5 % Eosinophils % 16 % Basophils % 1 % Neutrophils # 5.5 (1.3-7.7) k/uL Lymphocytes # 0.7 L (1.0-4.8) k/uL Monocytes # 0.4 (0-1.0) k/uL Eosinophils # 1.3 H (0-0.7) k/uL Basophils # 0.1 (0-0.2) k/uL Hypochromasia Slight Anisocytosis Slight PT 17.3 H (9.0-12.0) sec INR 1.7 H (<1.2) APTT 28.1 (22.0-30.0) sec Sodium 133 L (137-145) mmol/L Potassium 3.9 (3.5-5.1) mmol/L Chloride 95 L (98-107) mmol/L Carbon Dioxide 24 (22-30) mmol/L Anion Gap 14 mmol/L BUN 33 H (7-17) mg/dL Creatinine 5.40 H (0.52-1.04) mg/dL Est GFR (CKD-EPI)AfAm 9 (>60 ml/min/1.73 sqM) Est GFR (CKD-EPI)NonAf 8 (>60 ml/min/1.73 sqM) Glucose 286 H (74-99) mg/dL Calcium 9.6 (8.4-10.2) mg/dL Magnesium 2.1 (1.6-2.3) mg/dL Total Bilirubin 1.0 (0.2-1.3) mg/dL AST 30 (14-36) U/L ALT 17 (4-34) U/L Alkaline Phosphatase 99 (38-126) U/L Troponin I (0.000-0.034) ng/mL Total Protein 6.8 (6.3-8.2) g/dL Albumin 3.2 L (3.5-5.0) g/dL 04/10/20 Range/Units 10:36 WBC (3.8-10.6) k/uL RBC (3.80-5.40) m/uL Hgb (11.4-16.0) gm/dL Hct (34.0-46.0) % MCV (80.0-100.0) fL MCH (25.0-35.0) pg MCHC (31.0-37.0) g/dL RDW (11.5-15.5) % Plt Count (150-450) k/uL MPV Neutrophils % % Lymphocytes % % Monocytes % % Eosinophils % % Basophils % % Neutrophils # (1.3-7.7) k/uL Lymphocytes # (1.0-4.8) k/uL Monocytes # (0-1.0) k/uL Eosinophils # (0-0.7) k/uL Basophils # (0-0.2) k/uL Hypochromasia Anisocytosis PT (9.0-12.0) sec INR (<1.2) APTT (22.0-30.0) sec Sodium (137-145) mmol/L Potassium (3.5-5.1) mmol/L Chloride (98-107) mmol/L Carbon Dioxide (22-30) mmol/L Anion Gap mmol/L BUN (7-17) mg/dL Creatinine (0.52-1.04) mg/dL Est GFR (CKD-EPI)AfAm (>60 ml/min/1.73 sqM) Est GFR (CKD-EPI)NonAf (>60 ml/min/1.73 sqM) Glucose (74-99) mg/dL Calcium (8.4-10.2) mg/dL Magnesium (1.6-2.3) mg/dL Total Bilirubin (0.2-1.3) mg/dL AST (14-36) U/L ALT (4-34) U/L Alkaline Phosphatase (38-126) U/L Troponin I 0.058 H* (0.000-0.034) ng/mL Total Protein (6.3-8.2) g/dL Albumin (3.5-5.0) g/dL Disposition Is patient prescribed a controlled substance at d/c from ED?: No Time of Disposition: 11:49 <Tim Lagunas - Last Filed: 04/10/20 11:48> <Gilberto Rod - Last Filed: 04/10/20 11:52> Clinical Impression: Unstable angina, Elevated troponin, CKD (chronic kidney disease) Disposition: ADMITTED IP TO THIS HOSP Condition: Undetermined Referrals: Kimberli Gar MD [Primary Care Provider] - 1-2 days
[2020-04-10 10:58] LABS: Anisocytosis Slight; Basophils # (A) 0.1 k/uL (0-0.2); Basophils % (A) 1 %; Eosinophils # (A) 1.3 k/uL (0-0.7); Eosinophils % (A) 16 %; HCT 34.3 % (34.0-46.0); Hypochromasia Slight; Lymphocytes # (A) 0.7 k/uL (1.0-4.8); Lymphocytes % (A) 9 %; MCH 30.4 pg (25.0-35.0); MCHC 32.1 g/dL (31.0-37.0); MCV 94.6 fL (80.0-100.0); Mean Platelet Volume 7.9; Monocytes # (A) 0.4 k/uL (0-1.0); Monocytes % (A) 5 %; Neutrophils # (A) 5.5 k/uL (1.3-7.7); Neutrophils % (A) 68 %; Platelet Count 200 k/uL (150-450); RBC 3.63 m/uL (3.80-5.40); RDW 16.7 % (11.5-15.5)
--- NOTE | 2020-04-10 11:06 | XR ---
EXAMINATION TYPE: XR chest 1V portable DATE OF EXAM: 04/10/2020 Comparison: 04/03/2020 Clinical History: 64-year-old female with chest pain Findings: Right anterior chest wall pacemaker generator with right atrial and right ventricular leads. Rightwar d patient rotation alters normal cardiac and mediastinal contours. Very low lung volumes and cardiova scular markings. Patchy bibasilar opacities likely relate to areas of atelectasis. Impression: Marked hypoventilatory changes and limited, rotated exam. Unable to exclude patchy bibasilar areas of atelectasis or infiltrate, especially on the right.
[2020-04-10 11:11] LABS: INR 1.7 (<1.2); Partial Thromboplastin Time 28.1 sec (22.0-30.0); Prothrombin Time 17.3 sec (9.0-12.0)
[2020-04-10 11:14] LABS: Albumin 3.2 g/dL (3.5-5.0); Calcium 9.6 mg/dL (8.4-10.2); Magnesium 2.1 mg/dL (1.6-2.3); Potassium 3.9 mmol/L (3.5-5.1); Total Protein 6.8 g/dL (6.3-8.2)
[2020-04-10] MEDS ORDERED: NALOXONE 0.4 MG/ML 1 ML VIAL IV PRN (11:52)
[2020-04-10] MEDS ORDERED: LORazepam 1 MG TAB PO PRN (14:03)
[2020-04-10] MEDS ORDERED: NITROGLYCERIN SL TABS 0.4 MG TAB SUBLINGUAL PRN (14:03)
[2020-04-10] MEDS ORDERED: SENNOSIDES 8.6 MG TAB PO PRN (14:03)
[2020-04-10] MEDS ORDERED: ACETAMINOPHEN TAB 500 MG TAB PO PRN (14:03)
[2020-04-10] MEDS ORDERED: MAGNESIUM HYDROXIDE 2,400 MG/10 ML CUP PO PRN (14:03)
[2020-04-10] MEDS ORDERED: HYDROcodone/APAP 10-325MG 1 EACH TAB PO PRN (14:03)
--- NOTE | 2020-04-10 15:24 | P.CRDCN ---
History of Present Illness History of present illness: HISTORY OF PRESENTING ILLNESS This is a pleasant 64-year-old female past medical history significant for coronary artery disease status post PCI of the LAD, hypertension, dyslipide samantha, diabetes mellitus, chronic persistent atrial fibrillation on Coumadin, end- stage renal disease on hemodialysis, permanent pacemaker implantation secondary to sick sinus syndrome and chronic systolic heart failure. She follows in the office with Luis. We have been asked to see in consultation for chest pain. It examined resting comfortably lying flat in bed in no acute distress. The patient states she was driving in the van on the way to dialysis when she had a headache. She said she felt her head throbbing. She denies symptoms of chest pain, shortness of breath, dizziness or palpitations. She was just seen and evaluated here last week for fluid overload secondary to missed dialysis. Clinically she is euvolemic. Most recent cardiac catheterization performed in August 2019 revealed a chronically totally occluded diagonal branch and OM. RCA free of significant disease and recently stented LAD was widely patent. Laboratory data reviewed, WBC 8, hemoglobin 11, platelets 200, INR 1.7, sodium 133, potassium 3.9, creatinine 5.4, magnesium 2.1, troponin 0.058 0.056. Currently maintained on aspirin 81 mg daily, atorvastatin 80 mg daily, Plavix 75 mg daily, Lasix 80 mg daily, amlodipine 2.5 mg daily, Coumadin 4 mg daily, Coreg 3.125 mg twice a day and sublingual nitroglycerin as needed. Most recent echocardiogram obtained last week was a limited echo that revealed impaired LV systolic function with ejection fraction 30-35%, mid anterior, mid lateral, mid anteroseptal, apical anterior, apical lateral and apical septal LV wall motion hypokinesia. Apical lateral LV wall is akinetic along with apical septal wall. Moderate to severe TR and severe pulmonary hypertension with RVSP of 70 mmHg. REVIEW OF SYSTEMS At the time of my exam: CONSTITUTIONAL: Complains of headache. Denies fever or chills. CARDIOVASCULAR: Denies chest pain, shortness of breath, orthopnea, PND or palpitations. RESPIRATORY: Denies cough. GASTROINTESTINAL: Denies abdominal pain, diarrhea, constipation, nausea or vomiting. MUSCULOSKELETAL: Denies myalgias. NEUROLOGIC: Denies numbness, tingling, headacbe or weakness. ENDOCRINE: Denies fatigue, weight change, polydipsia or polyurina. GENITOURINARY: Denies burning, hematuria or urgency with micturation. HEMATOLOGIC: Denies history of anemia or bleeding. PHYSICAL EXAMINATION Blood pressure 146/67 heart rate 60 afebrile and maintaining oxygen saturation on room air. CONSTITUTIONAL: No apparent distress. HEENT: Head is normocephalic. Pupils are equal, round. Sclerae anicteric. Mucous membranes of the mouth are moist. No JVD. No carotid bruit. CHEST EXAMINATION: Lungs are clear to auscultation. No chest wall tenderness is noted on palpation or with deep breathing. HEART EXAMINATION: Irregular rate and rhythm. S1, S2 heard. Systolic ejection murmur at the left sternal, no gallops or rub. ABDOMEN: Soft, nontender. Positive bowel sounds. EXTREMITIES: 2+ peripheral pulses, no lower extremity edema and no calf tenderness. NEUROLOGIC EXAMINATION: Patient is awake, alert and oriented x3. ASSESSMENT Mild troponin leak secondary to chronic kidney disease not related to primary cardiac etiology Coronary artery disease Hypertension End-stage renal disease on hemodialysis Permanent pacemaker implantation secondary to sick sinus syndrome Chronic systolic heart failure Diabetes mellitus Chronic persistent atrial fibrillation on long-term anticoagulation PLAN Clinically stable from a cardiac perspective. Troponin leak is secondary to chronic kidney disease, not related to primary myocardial injury. Ongoing medical management and evaluation of headache. Thank you kindly for this consultation. Nurse Practitioner note has been reviewed, I agree with a documented findings and plan of care. Patient was seen and examined. Past Medical History Past Medical History: Atrial Flutter, Asthma, Coronary Artery Disease (CAD), Chest Pain / Angina, Heart Failure, Dementia, Diabetes Mellitus, Dialysis, GERD/Reflux, Hearing Disorder / Deafness, Hyperlipidemia, Hypertension, Liver Disease, Myocardial Infarction ([place]), Osteoarthritis (OA), Pneumonia, Renal Disease, Thyroid Disorder, Vascular Disorder Additional Past Medical History / Comment(s): Pt recently admitted to [facility] on 04/03/20 with severe metabolic encephalopathy d/t ESRD with cardiac debitlity and cardiomyopathy. 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, hepatitis A which pt states was treated, pt is wheelchair bound, IBS, constipation, incontinent of stool, vertigo, PVD, pt believes she has a coccyx decubitus at this time, tinnitis bilaterally, sinus problems, chronic back pain/sciatica/scoliosis, hypothyroid, UTIs, vitamin D defiency, falls, Last Myocardial Infarction Date:: 04/02/20 History of Any Multi-Drug Resistant Organisms: MRSA, VRE Date of last positivie culture/infection: 11/11/18-VRE; 09/27/17 MRSA MDRO Source:: Urine-VRE; Right Breast-MRSA Past Surgical History: Adenoidectomy, Appendectomy, Bariatric Surgery, Cholecystectomy, Heart Catheterization, Heart Catheterization With Stent, Hysterectomy, Orthopedic Surgery, Pacemaker, Tonsillectomy Additional Past Surgical History / Comment(s): D&C, ovarian wedge resection, EGDLap band/gastric sleeve, hemodialysis fistula/surgery to reposition, L shoulder arthroscopic surgery, excisional debridement R lower extremity, bilateral cataract removals/lens implants. Past Anesthesia/Blood Transfusion Reactions: Motion Sickness, Postoperative N ausea & Vomiting (PONV) Additional Past Anesthesia/Blood Transfusion Reaction / Comment(s): blood transfusion-pt stated they gave her medication for a reaction but does'nt rem emebr what the reaction was Date of Last Stent Placement:: 04/02/20 Type of Cardiac Device: Permanent Pacemaker Device Placement Date:: 04/20/18 Smoking Status: Never smoker - Past Family History Mother Family Medical History: Congestive Heart Failure (CHF), Diabetes Mellitus, Hypertension Father History Unknown: Yes Family Medical History: Diabetes Mellitus Brother(s) Family Medical History: Diabetes Mellitus, Hyperlipidemia, Renal Disease Additional Family Medical History / Comment(s): chronic kidney disease Medications and Allergies Home Medications Medication Instructions Recorded Confirmed Type Atorvastatin [Lipitor] 80 mg PO HS@2100 12/27/16 04/10/20 History Calcium Acetate [PhosLo] 2,001 mg PO AC-TID@08,12,09/02/18 04/10/20 History Acetaminophen Tab [Tylenol] 500 mg PO Q6H PRN 01/11/19 04/10/20 History Docusate Sodium [Dok] 100 mg PO BID@0900,2100 01/11/19 04/10/20 History Escitalopram [Lexapro] 20 mg PO DAILY@0900 04/02/19 04/10/20 History Folic Acid-Vit B Complex-Vit C 1 cap PO MOWEFR@209904/02/19 04/10/20 History [Nephrocaps] Folic Acid-Vit B Complex-Vit C 1 cap PO SUTUTHSA@0900 04/02/19 04/10/20 History [Nephrocaps] Melatonin 10 mg PO HS@2100 04/02/19 04/10/20 History Nitroglycerin Sl Tabs [Nitrostat] 0.4 mg SUBLINGUAL Q5M PRN tab 04/06/19 04/10/20 Rx Clopidogrel [Plavix] 75 mg PO DAILY@0904/09/19 04/10/20 History amLODIPine [Norvasc] 2.5 mg PO DAILY@0904/09/19 04/10/20 History Levothyroxine Sodium [Synthroid] 175 mcg PO DAILY@0600 11/05/19 04/10/20 History Sodium Polystyrene Sulfonate 15 gm PO SUTUTHSA@0911/05/19 04/10/20 History Lidocaine-Prilocaine Cream [Emla 1 applic TOPICAL MOWEFR@0811/23/19 04/10/20 History Cream 2.5%/2.5%] Furosemide [Lasix] 80 mg PO DAILY@0900 01/28/20 04/10/20 History Aspirin 81 mg PO DAILY@0900 02/28/20 04/10/20 History Magnesium Hydroxide [Milk of 2,400 mg PO DAILY PRN 02/28/20 04/10/20 History Magnesia] Sennosides [Senna] 8.6 mg PO DAILY PRN 02/28/20 04/10/20 History Insulin Detemir (Levemir) [Levemir] 18 unit SQ HS syr 03/04/20 04/10/20 Rx Warfarin Sodium 4 mg PO DAILY@1700 04/03/20 04/10/20 History carvediloL [Coreg] 3.125 mg PO BID@0900,1700 04/03/20 04/10/20 History HYDROcodone/APAP 10-325MG [Hardwick 1 tab PO Q12H PRN 04/10/20 04/10/20 History 10-325] Insulin Lispro [humaLOG Kwikpen] 2 unit SQ ACHS 04/10/20 04/10/20 History Insulin Lispro [humaLOG Kwikpen] See Protocol SQ ACHS 04/10/20 04/10/20 History LORazepam [Ativan] 1 mg PO BID PRN 04/10/20 04/10/20 History Allergies Allergy/AdvReac Type Severity Reaction Status Date / Time adhesive Allergy Rash/Hives Verified 04/10/20 11:52 Penicillins Allergy Rash/Hives Verified 04/10/20 11:52 Iodinated Contrast Media AdvReac KIDNEY Verified 04/10/20 11:52 [Iodinated Contrast- Oral FAILURE and IV Dye] metformin AdvReac SUGAR Verified 04/10/20 11:52 LEVEL INCREASE Physical Exam Vitals: Vital Signs Temp Pulse Resp BP Pulse Ox 04/10/20 14:00 16 04/10/20 11:34 60 16 146/67 97 04/10/20 10:19 98.0 F 60 16 141/68 97 Intake and Output 04/10/20 04/10/20 04/10/20 06:59 14:59 22:59 Other: Voiding Method Diaper Weight 113.398 kg Results 04/10/20 10:36 04/10/20 10:36 Cardiac Enzymes 04/10/20 04/10/20 04/10/20 Range/Units 10:36 10:36 14:19 AST 30 (14-36) U/L Troponin I 0.058 H* 0.056 H* (0.000-0.034) ng/mL Coagulation 04/10/20 Range/Units 10:36 PT 17.3 H (9.0-12.0) sec APTT 28.1 (22.0-30.0) sec CBC 04/10/20 Range/Units 10:36 WBC 8.0 (3.8-10.6) k/uL RBC 3.63 L (3.80-5.40) m/uL Hgb 11.0 L (11.4-16.0) gm/dL Hct 34.3 (34.0-46.0) % Plt Count 200 (150-450) k/uL Comprehensive Metabolic Panel 04/10/20 Range/Units 10:36 Sodium 133 L (137-145) mmol/L Potassium 3.9 (3.5-5.1) mmol/L Chloride 95 L (98-107) mmol/L Carbon Dioxide 24 (22-30) mmol/L BUN 33 H (7-17) mg/dL Creatinine 5.40 H (0.52-1.04) mg/dL Glucose 286 H (74-99) mg/dL Calcium 9.6 (8.4-10.2) mg/dL AST 30 (14-36) U/L ALT 17 (4-34) U/L Alkaline Phosphatase 99 (38-126) U/L Total Protein 6.8 (6.3-8.2) g/dL Albumin 3.2 L (3.5-5.0) g/dL Current Medications Generic Name Dose Route Start Last Admin Trade Name Freq PRN Reason Stop Dose Admin Acetaminophen 500 mg 04/10/20 14:03 Acetaminophen Tab 500 Mg Tab PO Q6H PRN Pain Hydrocodone Bitart/Acetaminophen 1 each 04/10/20 14:03 Hydrocodone/Apap 10-325mg 1 Each Tab PO Q12H PRN pain Amlodipine Besylate 2.5 mg 04/11/20 09:00 Amlodipine 2.5 Mg Tab PO DAILY@0900 [facility] Aspirin 81 mg 04/11/20 09:00 Aspirin 81 Mg PO DAILY@0900 [facility] Atorvastatin Calcium 80 mg 04/10/20 21:00 Atorvastatin 80 Mg Tab PO HS@2100 [facility] Calcium Acetate 2,001 mg 04/10/20 17:00 Calcium Acetate 667 Mg Tab PO AC-TID@08 [facility] Carvedilol 3.125 mg 04/10/20 17:00 Carvedilol 3.125 Mg Tab PO BID@0900,1700 [facility] Clopidogrel Bisulfate 75 mg 04/11/20 09:00 Clopidogrel 75 Mg Tab PO DAILY@0900 [facility] Docusate Sodium 100 mg 04/10/20 21:00 Docusate 100 Mg Cap PO BID@0900,2100 [facility] Escitalopram Oxalate 20 mg 04/11/20 09:00 Escitalopram 20 Mg Tab PO DAILY@0900 [facility] Furosemide 80 mg 04/11/20 09:00 Furosemide 80 Mg Tab PO DAILY@0900 [facility] Sodium Chloride 1,000 mls @ 20 mls/hr 04/10/20 10:22 04/10/20 10:48 Saline 0.9% IV 04/11/20 10:21 Not Given .Q24H [facility] Insulin Aspart 2 unit 04/10/20 17:30 Insulin Aspart (Novolog) 100 Unit/Ml Vial SQ ACHS [facility] Insulin Aspart 0 unit 04/10/20 17:30 Insulin Aspart (Novolog) 100 Unit/Ml Vial SQ [facility] Protocol Insulin Detemir 18 unit 04/10/20 21:00 Insulin Detemir (Levemir) 100 Unit/Ml Syr SQ HS [facility] Levothyroxine Sodium 176 mcg 04/11/20 06:00 Levothyroxine 88 Mcg Tab PO DAILY@0600 [facility] Lidocaine/Prilocaine 1 applic 04/12/20 08:00 Lidocaine-Prilocaine 2.5-2.5% Cream 5 Gm Tube TOPICAL MOWEFR@0800 [facility] Lorazepam 1 mg 04/10/20 14:03 Lorazepam 1 Mg Tab PO BID PRN Anxiety Magnesium Hydroxide 2,400 mg 04/10/20 14:03 Magnesium Hydroxide 2,400 Mg/10 Ml Cup PO DAILY PRN Constipation Melatonin 10 mg 04/10/20 21:00 Melatonin 5 Mg Tablet PO HS@2100 [facility] Miscellaneous Information 0 each 04/10/20 14:24 Warfarin Per Pharmacy MISCELLANE DIRECTED PRN Per Protocol Multivit/Ca Carb/B Cmplx/FA/Prenat 1 each 04/10/20 21:00 Folic Acid-Vit B Complex-Vit C 1 Cap PO MOWEFR@2100 [facility] Multivit/Ca Carb/B Cmplx/FA/Prenat 1 each 04/11/20 09:00 Folic Acid-Vit B Complex-Vit C 1 Cap PO SUTUTHSA@0900 [facility] Naloxone HCl 0.2 mg 04/10/20 11:52 Naloxone 0.4 Mg/Ml 1 Ml Vial IV Q2M PRN Opioid Reversal Nitroglycerin 0.4 mg 04/10/20 14:03 Nitroglycerin Sl Tabs 0.4 Mg Tab SUBLINGUAL Q5M PRN Chest Pain Senna 8.6 mg 04/10/20 14:03 Sennosides 8.6 Mg Tab PO DAILY PRN Constipation Sodium Polystyrene Sulfonate 15 gm 04/11/20 09:00 Sodium Polystyrene Sulfonate 15 Gm/60 Ml Bottle PO SUTUTHSA@0900 [facility] Warfarin Sodium 5 mg 04/10/20 18:00 Warfarin 5 Mg Tab PO 04/10/20 18:01 ONCE@1800 ONE Intake and Output 04/10/20 04/10/20 04/10/20 06:59 14:59 22:59 Other: Voiding Method Diaper Weight 113.398 kg Patient Weight 04/11/20 06:59 Weight 113.398 kg 04/10/20 10:36 04/10/20 10:36
[2020-04-10 17:00] LABS: Glucose,Whole Blood 353 mg/dL (75-99)
[2020-04-10] MEDS: carvediloL 3.125 MG TAB PO SCH (17:11)
[2020-04-10] MEDS: CALCIUM ACETATE 667 MG TAB PO SCH (17:11)
[2020-04-10] MEDS: INSULIN ASPART (NovoLOG) 100 UNIT/ML VIAL SQ SCH ×4 (17:11→20:47)
[2020-04-10] MEDS ORDERED: WARFARIN 5 MG TAB PO ONE (18:00)
[2020-04-10 20:15] LABS: Glucose,Whole Blood 335 mg/dL (75-99)
[2020-04-10] MEDS: DOCUSATE 100 MG CAP PO SCH (20:46)
[2020-04-10] MEDS ORDERED: INSULIN DETEMIR (LEVEMIR) 100 UNIT/ML SYR SQ SCH (21:00)
[2020-04-10] MEDS ORDERED: FOLIC ACID-VIT B COMPLEX-VIT C 1 CAP PO SCH (21:00)
[2020-04-10] MEDS ORDERED: MELATONIN 5 MG TABLET PO SCH (21:00)
[2020-04-10] MEDS ORDERED: ATORVASTATIN 80 MG TAB PO SCH (21:00)
--- NOTE | 2020-04-11 02:05 | P.HPIM ---
History of Present Illness H&P Date: 04/10/20 Chief Complaint: Chest pain This is a 64-year-old obese female patient of paty, Dr. JAE Jc, and Dr. Talley with multiple medical problem was known to have end-stage kidney disease on hemodialysis Friday, coronary artery disease and prior coronary artery stenting, diabetes type 2 insulin requiring, dyslipidemia, history of permanent pacemaker. Patient is a long-term resident at [facility] developed to have COVID-19 during an outbreak that affected [facility] on [facility] and she was sent to [facility] for evaluation and treatment and she eventually was sent back to [facility] on the [place], patient was just recently discharged from [facility] after she was admitted for metabolic encephalopathy due to uremia and cardiac debility and had echocardiogram that showed LVF 30-35 % and she was sen by cardiology and no new recommendations were made , patient ended up going back to [facility] on the [place] few days ago, today while she was in route to hemodialysis she developed to have left sided chest pain radiating under her breast with pleurisy and the she was taken to the ER a [facility] instead her initial evaluation was negative but because of her cardiac history she was kept in for cardiac evaluation again. Review of Systems Constitutional: Reports fatigue, Reports weakness, Reports weight loss Eyes: denies blurred vision, denies bulging eye, denies decreased vision Ears, nose, mouth and throat: Denies dysphagia, Denies neck lump, Denies sore throat Cardiovascular: Reports chest pain, Reports decreased exercise tolerance, Reports dyspnea on exertion, Reports shortness of breath, Denies leg edema, Denies lightheadedness, Denies orthopnea, Denies rapid heart beat, Denies syncope Respiratory: Reports snoring, Denies congestion, Denies cough, Denies cough with sputum, Denies home oxygen, Denies respiratory infections, Denies sleep apnea, Denies wheezing Gastrointestinal: Reports loss of appetite, Reports nausea, Denies abdominal pain, Denies bloating, Denies BRBPR, Denies excessive gas, Denies heartburn, Denies hematemesis, Denies hematochezia, Denies indigestion, Denies melena, Denies vomiting Genitourinary: Denies dysuria Menstruation: Reports postmenopausal Musculoskeletal: Reports atrophy, Reports frequent falls, Reports gait dysfunction, Reports low back pain, Reports morning stiffness, Reports neck pain, Reports neck stiffness Musculoskeletal: bilateral: ankle stiffness, ankle swelling, foot stiffness, foot swelling, absent: ankle pain, elbow pain, elbow stiffness, elbow swelling, foot pain, hand pain, hand stiffness, hand swelling, hip pain, hip stiffness, hip swelling, knee pain, knee stiffness, knee swelling, shoulder pain, shoulder stiffness, shoulder swelling, wrist pain, wrist stiffness, wrist swelling Integumentary: Denies pruritus, Denies rash Neurological: Reports balance difficulties, Reports burning pain, Reports confusion, Reports gait dysfunction, Reports headaches, Reports paresthesias, Reports weakness, Reports visual changes Psychiatric: Reports anxiety, Reports depression, Denies paranoia, Denies sadness/tearfulness, Denies sleep disturbances, Denies suicidal ideation Endocrine: Denies fatigue, Denies weight change Past Medical History Past Medical History: Atrial Flutter, Asthma, Coronary Artery Disease (CAD), Chest Pain / Angina, Heart Failure, Dementia, Diabetes Mellitus, Dialysis, GERD/Reflux, Hearing Disorder / Deafness, Hyperlipidemia, Hypertension, Liver Disease, Myocardial Infarction ([place]), Osteoarthritis (OA), Pneumonia, Renal Disease, Thyroid Disorder, Vascular Disorder Additional Past Medical History / Comment(s): Pt recently admitted to [facility] on 04/03/20 with severe metabolic encephalopathy d/t ESRD with cardiac debitlity and cardiomyopathy. 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, hepatitis A which pt states was treated, pt is wheelchair bound, IBS, constipation, incontinent of stool, vertigo, PVD, pt believes she has a coccyx decubitus at this time, tinnitis bilaterally, sinus problems, chronic back pain/sciatica/scoliosis, hypothyroid, UTIs, vitamin D defiency, falls, Last Myocardial Infarction Date:: 04/02/20 History of Any Multi-Drug Resistant Organisms: MRSA, VRE Date of last positivie culture/infection: 11/11/18-VRE; 09/27/17 MRSA MDRO Source:: Urine-VRE; Right Breast-MRSA Past Surgical History: Adenoidectomy, Appendectomy, Bariatric Surgery, Cholecystectomy, Heart Catheterization, Heart Catheterization With Stent, Hysterectomy, Orthopedic Surgery, Pacemaker, Tonsillectomy Additional Past Surgical History / Comment(s): D&C, ovarian wedge resection, EGDLap band/gastric sleeve, hemodialysis fistula/surgery to reposition, L shoulder arthroscopic surgery, excisional debridement R lower extremity, bilateral cataract removals/lens implants. Past Anesthesia/Blood Transfusion Reactions: Motion Sickness, Postoperative Nausea & Vomiting (PONV) Additional Past Anesthesia/Blood Transfusion Reaction / Comment(s): blood transfusion-pt stated they gave her medication for a reaction but does'nt rememebr what the reaction was Date of Last Stent Placement:: 04/02/20 Type of Cardiac Device: Permanent Pacemaker Device Placement Date:: 04/20/18 Smoking Status: Never smoker - Past Family History Mother Family Medical History: Congestive Heart Failure (CHF), Diabetes Mellitus, Hypertension Father History Unknown: Yes Family Medical History: Diabetes Mellitus Brother(s) Family Medical History: Diabetes Mellitus, Hyperlipidemia, Renal Disease Additional Family Medical History / Comment(s): chronic kidney disease Medications and Allergies Home Medications Medication Instructions Recorded Confirmed Type Atorvastatin [Lipitor] 80 mg PO HS@209912/27/16 04/10/20 History Calcium Acetate [PhosLo] 2,001 mg PO AC-TID@,09/02/18 04/10/20 History Acetaminophen Tab [Tylenol] 500 mg PO Q6H PRN 01/11/19 04/10/20 History Docusate Sodium [Dok] 100 mg PO BID@09,209901/11/19 04/10/20 History Escitalopram [Lexapro] 20 mg PO DAILY@0904/02/19 04/10/20 History Folic Acid-Vit B Complex-Vit C 1 cap PO MOWEFR@209904/02/19 04/10/20 History [Nephrocaps] Folic Acid-Vit B Complex-Vit C 1 cap PO SUTUTHSA@89904/02/19 04/10/20 History [Nephrocaps] Melatonin 10 mg PO HS@209904/02/19 04/10/20 History Nitroglycerin Sl Tabs [Nitrostat] 0.4 mg SUBLINGUAL Q5M PRN tab 04/06/19 04/10/20 Rx Clopidogrel [Plavix] 75 mg PO DAILY@0900 04/09/19 04/10/20 History amLODIPine [Norvasc] 2.5 mg PO DAILY@0900 04/09/19 04/10/20 History Levothyroxine Sodium [Synthroid] 175 mcg PO DAILY@0600 11/05/19 04/10/20 History Sodium Polystyrene Sulfonate 15 gm PO SUTUTHSA@0900 11/05/19 04/10/20 History Lidocaine-Prilocaine Cream [Emla 1 applic TOPICAL MOWEFR@0800 11/23/19 04/10/20 History Cream 2.5%/2.5%] Furosemide [Lasix] 80 mg PO DAILY@0900 01/28/20 04/10/20 History Aspirin 81 mg PO DAILY@0900 02/28/20 04/10/20 History Magnesium Hydroxide [Milk of 2,400 mg PO DAILY PRN 02/28/20 04/10/20 History Magnesia] Sennosides [Senna] 8.6 mg PO DAILY PRN 02/28/20 04/10/20 History Insulin Detemir (Levemir) [Levemir] 18 unit SQ HS syr 03/04/20 04/10/20 Rx Warfarin Sodium 4 mg PO DAILY@1700 04/03/20 04/10/20 History carvediloL [Coreg] 3.125 mg PO BID@0900,1700 04/03/20 04/10/20 History HYDROcodone/APAP 10-325MG [Newcomb 1 tab PO Q12H PRN 04/10/20 04/10/20 History 10-325] Insulin Lispro [humaLOG Kwikpen] 2 unit SQ ACHS 04/10/20 04/10/20 History Insulin Lispro [humaLOG Kwikpen] See Protocol SQ ACHS 04/10/20 04/10/20 History LORazepam [Ativan] 1 mg PO BID PRN 04/10/20 04/10/20 History Allergies Allergy/AdvReac Type Severity Reaction Status Date / Time adhesive Allergy Rash/Hives Verified 04/10/20 11:52 Penicillins Allergy Rash/Hives Verified 04/10/20 11:52 Iodinated Contrast Media AdvReac KIDNEY Verified 04/10/20 11:52 [Iodinated Contrast- Oral FAILURE and IV Dye] metformin AdvReac SUGAR Verified 04/10/20 11:52 LEVEL INCREASE Physical Exam Vitals: Vital Signs Temp Pulse Resp BP Pulse Ox 04/10/20 14:00 16 04/10/20 11:34 60 16 146/67 97 04/10/20 10:19 98.0 F 60 16 141/68 97 Intake and Output 04/10/20 04/10/20 04/10/20 06:59 14:59 22:59 Other: Voiding Method Diaper Weight 113.398 kg Physical examination: General: 64-year-old female who is laying down in bed appears to be very weak does not appear to be in acute distress at this point in time. HEENT: Head is atraumatic, normocephalic, pupils were equal round reactive to light and recommendation, extraocular muscle movement were intact, sclera nonicteric, conjunctivae were pale, mucous membranes of the mouth are somewhat dry. Neck: Supple, no JVP, decreased carotid upstroke bilaterally, no lymphadenopathy. Chest: Decreased breath sounds at the bases, few rhonchi, no extremity wheezes, no chest wall tenderness, no intercostal retractions. Heart: First heart sound is depressed, second heart sounds normal, there is systolic ejection murmur 2/6 located in the left sternal border. Abdomen: Soft, nontender, nondistended, positive bowel sounds. Extremities: There is no edema no calf tenderness DP +1 bilaterally. Neurologic examination: Patient is awake alert and oriented 2, cranial nerves III-12 appear grossly intact, muscle power were 4 out of 5 in upper extremities and 3 out of 5 in bilateral lower extremities, deep tendon reflexes were depressed bilaterally, there is also neuropathic changes to both lower extremity with decreased sensation. Results CBC & Chem 7: 04/10/20 10:36 04/10/20 10:36 Labs: Abnormal Lab Results - Last 24 Hours (Table) 04/10/20 04/10/20 04/10/20 Range/Units 10:36 10:36 10:36 RBC 3.63 L (3.80-5.40) m/uL Hgb 11.0 L (11.4-16.0) gm/dL RDW 16.7 H (11.5-15.5) % Lymphocytes # 0.7 L (1.0-4.8) k/uL Eosinophils # 1.3 H (0-0.7) k/uL PT 17.3 H (9.0-12.0) sec INR 1.7 H (<1.2) Sodium 133 L (137-145) mmol/L Chloride 95 L (98-107) mmol/L BUN 33 H (7-17) mg/dL Creatinine 5.40 H (0.52-1.04) mg/dL Glucose 286 H (74-99) mg/dL Troponin I (0.000-0.034) ng/mL Albumin 3.2 L (3.5-5.0) g/dL 04/10/20 04/10/20 Range/Units 10:36 14:19 RBC (3.80-5.40) m/uL Hgb (11.4-16.0) gm/dL RDW (11.5-15.5) % Lymphocytes # (1.0-4.8) k/uL Eosinophils # (0-0.7) k/uL PT (9.0-12.0) sec INR (<1.2) Sodium (137-145) mmol/L Chloride (98-107) mmol/L BUN (7-17) mg/dL Creatinine (0.52-1.04) mg/dL Glucose (74-99) mg/dL Troponin I 0.058 H* 0.056 H* (0.000-0.034) ng/mL Albumin (3.5-5.0) g/dL Thrombosis Risk Factor Assmnt - Choose All That Apply Any of the Below Risk Factors Present?: Yes Each Factor Represents 1 point: Obesity (BMI >25) Other Risk Factors: Yes Each Risk Factor Represents 2 Points: Age 61-74 years Other congenital or acquired thrombophilia - If yes, enter type in comment: No Thrombosis Risk Factor Assessment Total Risk Factor Score: 3 Thrombosis Risk Factor Assessment Level: Moderate Risk Assessment and Plan Assessment: Assessment and Plan: 1. Chest pain with troponin leak due to ESRD . we will continue to monitor , cardiology evaluation in place. we will arrange for HD and hopefully back to [facility] in 24 hours. 2. Recent NSTEMI. we will continue with ASA 81 mg orally daily, PLavix 75 mg orally daily and Lipitor 80 mg orally daily and add small dose of Coreg 3.125 mg orally bid, cardiology evaluation, we will check Echocardiogram for evaluation of her LVF and wall motion. 3. Recent COVID . recovered. 4. End-stage renal disease on hemodialysis Friday. Nephrology consult appreciated Continue NephAmandeep lazar. 5. History of coronary artery disease with prior stenting of the LAD. We will continue the patient on aspirin 81 mg once every day, Plavix 75 mg orally once every day, Lipitor 80 mg once every day, added Coreg 3.125 mg orally bid. 6. Hyponatremia likely related to hypovolemia post hemodialysis yesterday. Monitor the patient CMP. 7. Anemia of chronic kidney disease. stable. 8. Hypertension and hypertensive cardiovascular disease. Continue amlodipine2.5 mg daily and add Coreg 3.125 mg orally bid. 9. Hyperlipidemia. Continue atorvastatin 80 mg at bedtime 10. Gastroesophageal reflux disease and GI prophylaxis. we will continue with Protonix 40 mg orally daily. 11. Diabetes mellitus type 2, insulin requiring. We will continue Levemir 18 units at bedtime along with the Humalog per sliding scale insulin. 12. Generalized anxiety disorder and recurrent depression. Continue Lexapro 20 mg orally once every day as well as Ativan 1 mg orally twice every day. 13. Hypothyroidism. Continue patient on levothyroxine 175 g orally once every day. 14. history of symptomatic Bradycardia and recently was diagnosed with atrial fibrillation post PPM amd currently fully anticoagulated. 15. DVT prophylaxis. we will contiue with coumadin INR is therapeutic. 16. GI prophylaxis. we will contiue with Protonix 40 mg orally daily. 17. Medical debility. Physical therapy evaluation. 18. hospital tray service worker consultation for discharge planning to [facility]. 19. Patient is full code. 20. Admit to inpatient. Estimated length of stay 2 midnights.
[2020-04-11] MEDS ORDERED: LEVOTHYROXINE 88 MCG TAB PO SCH (06:00)
[2020-04-11 07:19] LABS: Glucose,Whole Blood 122 mg/dL (75-99)
[2020-04-11] MEDS: INSULIN ASPART (NovoLOG) 100 UNIT/ML VIAL SQ SCH ×4 (07:26→12:09)
[2020-04-11 08:12] LABS: Anisocytosis Slight; Basophils # (A) 0.1 k/uL (0-0.2); Basophils % (A) 1 %; Eosinophils # (A) 1.2 k/uL (0-0.7); Eosinophils % (A) 17 %; HCT 31.5 % (34.0-46.0); HGB 10.2 gm/dL (11.4-16.0); Lymphocytes # (A) 0.7 k/uL (1.0-4.8); Lymphocytes % (A) 10 %; MCH 30.3 pg (25.0-35.0); MCHC 32.4 g/dL (31.0-37.0); MCV 93.5 fL (80.0-100.0); Monocytes # (A) 0.3 k/uL (0-1.0); Monocytes % (A) 5 %; Neutrophils # (A) 4.3 k/uL (1.3-7.7); Neutrophils % (A) 66 %; Platelet Count 190 k/uL (150-450); RBC 3.37 m/uL (3.80-5.40); RDW 16.8 % (11.5-15.5); WBC 6.6 k/uL (3.8-10.6)
[2020-04-11 08:24] LABS: INR 2.4 (<1.2); Prothrombin Time 23.1 sec (9.0-12.0)
[2020-04-11 08:26] LABS: Calcium 9.7 mg/dL (8.4-10.2); Potassium 3.6 mmol/L (3.5-5.1); Total Bilirubin 0.8 mg/dL (0.2-1.3); Total Protein 6.4 g/dL (6.3-8.2)
[2020-04-11] MEDS ORDERED: FUROSEMIDE 80 MG TAB PO SCH (09:00)
[2020-04-11] MEDS ORDERED: ASPIRIN 81 MG PO SCH (09:00)
[2020-04-11] MEDS ORDERED: amLODIPine 2.5 MG TAB PO SCH (09:00)
[2020-04-11] MEDS ORDERED: ASPIRIN 325 MG TAB PO SCH (09:00)
[2020-04-11] MEDS ORDERED: CLOPIDOGREL 75 MG TAB PO SCH (09:00)
[2020-04-11] MEDS ORDERED: FOLIC ACID-VIT B COMPLEX-VIT C 1 CAP PO SCH (09:00)
[2020-04-11] MEDS ORDERED: ESCITALOPRAM 20 MG TAB PO SCH (09:00)
[2020-04-11] MEDS: carvediloL 3.125 MG TAB PO SCH (10:48)
[2020-04-11] MEDS: DOCUSATE 100 MG CAP PO SCH (10:48)
[2020-04-11] MEDS: CALCIUM ACETATE 667 MG TAB PO SCH ×2 (10:48→12:08)
[2020-04-11] MEDS: SODIUM POLYSTYRENE SULFONATE 15 GM/60 ML BOTTLE PO SCH ×2 (10:49→13:09)
--- NOTE | 2020-04-11 10:52 | P.PN ---
Subjective HISTORY OF PRESENTING ILLNESS This is a pleasant 64-year-old female past medical history significant for coronary artery disease status post PCI of the LAD, hypertension, dyslipidemia, diabetes mellitus, chronic persistent atrial fibrillation on Coumadin, end-stage renal disease on hemodialysis, permanent pacemaker implantation secondary to sick sinus syndrome and chronic systolic heart failure. She follows in the office with Luis. She is seen and examined resting comfortably in no acute distress. She is currently undergoing h emodialysis. Blood pressure 147/79 heart rate 60 afebrile maintaining oxygen saturation on room air. Laboratory data reviewed, WBC 6.6, hemoglobin 10.2, platelets 190, INR 2.4, sodium 131, potassium 3.6 and creatinine 6.23. PHYSICAL EXAMINATION CONSTITUTIONAL: No apparent distress. HEENT: Head is normocephalic. Pupils are equal, round. Sclerae anicteric. Mucous membranes of the mouth are moist. No JVD. No carotid bruit. CHEST EXAMINATION: Lungs are clear to auscultation. No chest wall tenderness is noted on palpation or with deep breathing. HEART EXAMINATION: Irregular rate and rhythm. S1, S2 heard. Systolic ejection murmur at the left sternal, no gallops or rub. EXTREMITIES: 2+ peripheral pulses, no lower extremity edema and no calf tenderness. ASSESSMENT Mild troponin leak secondary to chronic kidney disease not related to primary cardiac etiology Coronary artery disease Hypertension End-stage renal disease on hemodialysis Permanent pacemaker implantation secondary to sick sinus syndrome Chronic systolic heart failure Diabetes mellitus Chronic persistent atrial fibrillation on long-term anticoagulation PLAN Likely stable from a cardiac perspective. Patient can be discharged and follow-up in the office with Dr. Carson as needed. Nurse Practitioner note has been reviewed, I agree with a documented findings and plan of care. Patient was seen and examined. Objective - Vital Signs Vital signs: Vital Signs Temp 97.2 F L 04/11/20 07:50 Pulse 60 04/11/20 07:50 Resp 18 04/11/20 08:00 BP 147/79 04/11/20 07:50 Pulse Ox 100 04/11/20 07:50 Intake & Output 04/10/20 04/11/20 04/11/20 18:59 06:59 18:59 Intake Total 240 Output Total 0 0 Balance 0 240 Weight 113.398 kg 94.5 kg Intake: Oral 240 Output: Urine 0 0 Other: Voiding Method Diaper Diaper Diaper # Voids 0 0 - Labs CBC & Chem 7: 04/11/20 07:50 04/11/20 07:50 Labs: Abnormal Lab Results - Last 24 Hours (Table) 04/10/20 04/10/20 04/10/20 Range/Units 10:36 10:36 10:36 RBC 3.63 L (3.80-5.40) m/uL Hgb 11.0 L (11.4-16.0) gm/dL Hct (34.0-46.0) % RDW 16.7 H (11.5-15.5) % Lymphocytes # 0.7 L (1.0-4.8) k/uL Eosinophils # 1.3 H (0-0.7) k/uL PT 17.3 H (9.0-12.0) sec INR 1.7 H (<1.2) Sodium 133 L (137-145) mmol/L Chloride 95 L (98-107) mmol/L BUN 33 H (7-17) mg/dL Creatinine 5.40 H (0.52-1.04) mg/dL Glucose 286 H (74-99) mg/dL POC Glucose (mg/dL) (75-99) mg/dL Troponin I (0.000-0.034) ng/mL Albumin 3.2 L (3.5-5.0) g/dL 04/10/20 04/10/20 04/10/20 Range/Units 10:36 14:19 16:58 RBC (3.80-5.40) m/uL Hgb (11.4-16.0) gm/dL Hct (34.0-46.0) % RDW (11.5-15.5) % Lymphocytes # (1.0-4.8) k/uL Eosinophils # (0-0.7) k/uL PT (9.0-12.0) sec INR (<1.2) Sodium (137-145) mmol/L Chloride (98-107) mmol/L BUN (7-17) mg/dL Creatinine (0.52-1.04) mg/dL Glucose (74-99) mg/dL POC Glucose (mg/dL) 353 H (75-99) mg/dL Troponin I 0.058 H* 0.056 H* (0.000-0.034) ng/mL Albumin (3.5-5.0) g/dL 04/10/20 04/11/20 04/11/20 Range/Units 20:13 07:18 07:50 RBC (3.80-5.40) m/uL Hgb (11.4-16.0) gm/dL Hct (34.0-46.0) % RDW (11.5-15.5) % Lymphocytes # (1.0-4.8) k/uL Eosinophils # (0-0.7) k/uL PT (9.0-12.0) sec INR (<1.2) Sodium 131 L (137-145) mmol/L Chloride 95 L (98-107) mmol/L BUN 44 H (7-17) mg/dL Creatinine 6.23 H (0.52-1.04) mg/dL Glucose (74-99) mg/dL POC Glucose (mg/dL) 335 H 122 H (75-99) mg/dL Troponin I (0.000-0.034) ng/mL Albumin 3.0 L (3.5-5.0) g/dL 04/11/20 04/11/20 Range/Units 07:50 07:50 RBC 3.37 L (3.80-5.40) m/uL Hgb 10.2 L (11.4-16.0) gm/dL Hct 31.5 L (34.0-46.0) % RDW 16.8 H (11.5-15.5) % Lymphocytes # 0.7 L (1.0-4.8) k/uL Eosinophils # 1.2 H (0-0.7) k/uL PT 23.1 H (9.0-12.0) sec INR 2.4 H (<1.2) Sodium (137-145) mmol/L Chloride (98-107) mmol/L BUN (7-17) mg/dL Creatinine (0.52-1.04) mg/dL Glucose (74-99) mg/dL POC Glucose (mg/dL) (75-99) mg/dL Troponin I (0.000-0.034) ng/mL Albumin (3.5-5.0) g/dL
--- NOTE | 2020-04-11 11:33 | P.DS ---
Providers Date of admission: 04/10/20 11:47 Expected date of discharge: 04/11/20 Attending physician: Kimberli Gar Consults: 04/10/20 11:52 Consult Physician Routine Consulting Provider: [facility] Consult Reason/Comments: chest pain Do you want consulting provider notified?: Yes 04/10/20 11:53 Consult Physician Routine Consulting Provider: Tate Souza Consult Reason/Comments: Dialysis Do you want consulting provider notified?: Yes Primary care physician: Kimberli Gar Hospital Course: This is a 64-year-old obese female patient of paty, Dr. JAE Jc, and Dr. Talley with multiple medical problem was known to have end-stage kidney disease on hemodialysis Friday, coronary artery disease and prior coronary artery stenting, diabetes type 2 insulin requiring, dyslipidemia, history of permanent pacemaker. Patient is a long-term resident at [facility] developed to have COVID-19 during an outbreak that affected [facility] on [facility] and she was sent to [facility] for evaluation and treatment and she eventually was sent back to [facility] on [facility], patient was just recently discharged from [facility] after she was admitted for metabolic encephalopathy due to uremia and cardiac debility and had echocardiogram that showed LVF 30-35 % and she was sen by cardiology and no new recommendations were made , patient ended up going back to [facility] few days ago, today while she was in route to hemodialysis she developed to have left sided chest pain radiating under her breast with pleurisy and the she was taken to the ER a [facility] instead her initial evaluation was negative but because of her cardiac history she was kept in for cardiac evaluation again. 04/11: Patient has been seen by cardiology and elevated troponin secondary to end-stage renal disease. No plan for any intervention and patient is been cleared for discharge. Patient has been afebrile, heart rate 60, blood pressure 147/79, pulse ox 100% on room air. WBC 6.6, hemoglobin 10.2, platelets 190. INR 2.4. Sodium 131, potassium 3.6, chloride 95, CO2 28, BUN 44 creatinine 6.23. Liver function tests normal. Blood sugars this morning 91-122. Patient's blood sugars were in the 300 yesterday. Triglycerides 72, cholesterol 75, LDL 20, HDL 41. Patient is cleared for discharge by nephrology. Patient will be discharged back to [facility] today in stable condition. Discharge diagnoses: 1. Chest pain with troponin leak due to ESRD. 2. Recent NSTEMI. 3. Recent COVID. 4. End-stage renal disease on hemodialysis Friday. 5. History of coronary artery disease with prior stenting of the LAD. 6. Hyponatremia likely related to hypovolemia post hemodialysis yesterday. 7. Anemia of chronic kidney disease. stable. 8. Hypertension and hypertensive cardiovascular disease. 9. Hyperlipidemia. 10. Gastroesophageal reflux disease. 11. Diabetes mellitus type 2, insulin requiring. 12. Generalized anxiety disorder and recurrent depression. 13. Hypothyroidism. 14. History of symptomatic Bradycardia and recently was diagnosed with atrial fibrillation post PPM amd currently fully anticoagulated. Discharge plan: Return to [facility] Impression and plan of care have been directed as dictated by the signing physician. Emely Contreras nurse practitioner acting as scribe for signing physician. Patient Condition at Discharge: Good Plan - Discharge Summary Discharge Rx Participant: No New Discharge Prescriptions: New Ammonium Lactate Lotion [Lac-Hydrin 12% Lotion] 1 applic TOPICAL BID #60 gm Continue Atorvastatin [Lipitor] 80 mg PO HS@2100 Calcium Acetate [PhosLo] 2,001 mg PO AC-TID@08,,17 Acetaminophen Tab [Tylenol] 500 mg PO Q6H PRN PRN Reason: Pain Docusate Sodium [Dok] 100 mg PO BID@0900,2100 Folic Acid-Vit B Complex-Vit C [Nephrocaps] 1 cap PO MOWEFR@2100 Folic Acid-Vit B Complex-Vit C [Nephrocaps] 1 cap PO SUTUTHSA@0900 Melatonin 10 mg PO HS@2100 Escitalopram [Lexapro] 20 mg PO DAILY@0900 Nitroglycerin Sl Tabs [Nitrostat] 0.4 mg SUBLINGUAL Q5M PRN tab PRN Reason: Chest Pain amLODIPine [Norvasc] 2.5 mg PO DAILY@0900 Clopidogrel [Plavix] 75 mg PO DAILY@0900 Levothyroxine Sodium [Synthroid] 175 mcg PO DAILY@0600 Sodium Polystyrene Sulfonate 15 gm PO SUTUTHSA@0900 Lidocaine-Prilocaine Cream [Emla Cream 2.5%/2.5%] 1 applic TOPICAL MOWEFR@0800 Furosemide [Lasix] 80 mg PO DAILY@0900 Aspirin 81 mg PO DAILY@0900 Magnesium Hydroxide [Milk of Magnesia] 2,400 mg PO DAILY PRN PRN Reason: Constipation Sennosides [Senna] 8.6 mg PO DAILY PRN PRN Reason: Constipation Insulin Detemir (Levemir) [Levemir] 18 unit SQ HS syr Warfarin Sodium 4 mg PO DAILY@1700 carvediloL [Coreg] 3.125 mg PO BID@0900,1700 Insulin Lispro [humaLOG Kwikpen] 2 unit SQ ACHS Insulin Lispro [humaLOG Kwikpen] See Protocol SQ ACHS Changed LORazepam [Ativan] 1 mg PO BID PRN #6 tab PRN Reason: Anxiety HYDROcodone/APAP 10-325MG [[place] 10-325] 1 tab PO Q12H PRN #6 tab PRN Reason: pain Discharge Medication List Atorvastatin [Lipitor] 80 mg PO HS@209912/27/16 [History] Calcium Acetate [PhosLo] 2,001 mg PO AC-TID@,09/02/18 [History] Acetaminophen Tab [Tylenol] 500 mg PO Q6H PRN 01/11/19 [History] Docusate Sodium [Dok] 100 mg PO BID@899,209901/11/19 [History] Escitalopram [Lexapro] 20 mg PO DAILY@89904/02/19 [History] Folic Acid-Vit B Complex-Vit C [Nephrocaps] 1 cap PO MOWEFR@209904/02/19 [History] Folic Acid-Vit B Complex-Vit C [Nephrocaps] 1 cap PO SUTUTHSA@89904/02/19 [History] Melatonin 10 mg PO HS@209904/02/19 [History] Nitroglycerin Sl Tabs [Nitrostat] 0.4 mg SUBLINGUAL Q5M PRN tab 04/06/19 [Rx] Clopidogrel [Plavix] 75 mg PO DAILY@89904/09/19 [History] amLODIPine [Norvasc] 2.5 mg PO DAILY@89904/09/19 [History] Levothyroxine Sodium [Synthroid] 175 mcg PO DAILY@0611/05/19 [History] Sodium Polystyrene Sulfonate 15 gm PO SUTUTHSA@89911/05/19 [History] Lidocaine-Prilocaine Cream [Emla Cream 2.5%/2.5%] 1 applic TOPICAL MOWEFR@0800 11/23/19 [History] Furosemide [Lasix] 80 mg PO DAILY@0900 01/28/20 [History] Aspirin 81 mg PO DAILY@0900 02/28/20 [History] Magnesium Hydroxide [Milk of Magnesia] 2,400 mg PO DAILY PRN 02/28/20 [History] Sennosides [Senna] 8.6 mg PO DAILY PRN 02/28/20 [History] Insulin Detemir (Levemir) [Levemir] 18 unit SQ HS syr 03/04/20 [Rx] Warfarin Sodium 4 mg PO DAILY@17004/03/20 [History] carvediloL [Coreg] 3.125 mg PO BID@0900,1700 04/03/20 [History] Insulin Lispro [humaLOG Kwikpen] 2 unit SQ ACHS 04/10/20 [History] Insulin Lispro [humaLOG Kwikpen] See Protocol SQ ACHS 04/10/20 [History] Ammonium Lactate Lotion [Lac-Hydrin 12% Lotion] 1 applic TOPICAL BID #60 gm 04/11/20 [Rx] HYDROcodone/APAP 10-325MG [[place] 10-325] 1 tab PO Q12H PRN #6 tab 04/11/20 [Rx] LORazepam [Ativan] 1 mg PO BID PRN #6 tab 04/11/20 [Rx] Follow up Appointment(s)/Referral(s): Kimberli Gar MD [Primary Care Provider] - 1 Week (At [facility]) Discharge Disposition: TRANSFER TO SNF/F
[2020-04-11 12:04] LABS: Glucose,Whole Blood 98 mg/dL (75-99)
[2020-04-11 13:24] VITALS: BMI 33.6
[2020-04-11 15:02] VITALS: BP 120/58; PULSE 61; RESP 17; TEMP 97.9
--- NOTE | 2020-04-11 15:42 | CONS ---
CONSULTATION REASON FOR CONSULT: End-stage renal disease. HISTORY OF PRESENT ILLNESS: Patient is a 64-year-old female with end-stage renal disease, on hemodialysis on a Friday, Friday, Friday schedule. Patient was admitted to the hospital with complaints of chest pain, which started prior to starting dialysis yesterday. Troponin was borderline at 0.056. Currently patient has no chest pain. She is currently seen on dialysis and tolerating her treatment well. She missed her dialysis yesterday therefore she is having a treatment today. No complaints of nausea, vomiting, abdominal pain. No fever, chills or diarrhea. PAST MEDICAL HISTORY: End-stage renal disease history of anemia of chronic disease, recent COVID-19 infection, cardiomyopathy, coronary artery disease, atrial flutter, cardiomyopathy EF 30% to 35%, hearing loss, osteoarthritis, hypothyroidism, peripheral vascular disease, IBS, constipation, history of hepatitis A, sciatica, scoliosis, history of UTIs and falls. PAST SURGICAL HISTORY: Adenoidectomy, appendectomy, bariatric surgery, cholecystectomy, cardiac catheterization, coronary stent placement, tonsillectomy, D and C, lap band procedure, AV fistula, debridement of lower extremity wounds, cataract surgery. SOCIAL HISTORY: Negative for smoking, drug abuse or alcohol abuse. MEDICATIONS: Medications prior to admission include Lipitor, PhosLo, Tylenol, Lexapro, melatonin, Nephrocaps, Plavix, Norvasc, Synthroid, Kayexalate p.r.n., Lasix, milk of magnesia, Senna, insulin, Coumadin, carvedilol, [place]. ALLERGIES: Allergies include PENICILLIN, IV CONTRAST, METFORMIN, IODINE. PHYSICAL EXAMINATION: Patient is comfortable, awake, not in any acute distress. She is tolerating her dialysis well. She is awake and alert and oriented x3. Blood pressure is 147/80, heart rate 60 per minute. She is afebrile. EXAMINATION OF THE HEART: S1, S2. EXAMINATION OF THE LUNGS: Bilateral breath sounds are heard. Abdomen is soft, nontender. Examination of lower extremities shows no evidence of edema. Chronic skin changes noted bilaterally. [employer] exam grossly intact. LABS: Labs show sodium 131, potassium 3.6, chloride 95, BUN 44, creatinine 6.23, hemoglobin 10.2 g/dL. Troponin 0.056. ASSESSMENT: 1. End-stage renal disease, on hemodialysis on a Friday, Friday, Friday schedule. 2. Chest pain with borderline troponins, currently resolved, being followed by Cardiology. 3. Chronic kidney disease mineral bone disorder. 4. Anemia of chronic disease. 5. Generalized debility. PLAN: Continue current phosphate binders. The patient is stable for discharge from nephrology standpoint if no further intervention plan by Cardiology. Thank you for this consultation. MMODL / IJN: [id number] /
[2020-04-11] MEDS ORDERED: WARFARIN 2 MG TAB PO ONE (18:00)
[2020-04-12] MEDS ORDERED: LIDOCAINE-PRILOCAINE 2.5-2.5% CREAM 5 GM TUBE TOPICAL SCH (08:00)
== END 2020-04-11 15:47 ==
LOC: EC 10:14 → 3SCARD 11:47
PROVIDERS: ADMIT Internal Medicine; ATTEND Internal Medicine
DX: R07.89 Other chest pain (principal); D63.1 Anemia in chronic kidney disease; E03.9 Hypothyroidism, unspecified; E11.22 Type 2 diabetes mellitus with diabetic chronic kidney disease; E11.319 Type 2 diabetes mellitus with unspecified diabetic retinopathy without macular edema; E11.41 Type 2 diabetes mellitus with diabetic mononeuropathy; E11.51 Type 2 diabetes mellitus with diabetic peripheral angiopathy without gangrene; E78.5 Hyperlipidemia, unspecified; E86.1 Hypovolemia; E87.1 Hypo-osmolality and hyponatremia; F03.90 Unspecified dementia, unspecified severity, without behavioral disturbance, psychotic disturbance, mood disturbance, and anxiety; F41.1 Generalized anxiety disorder; H91.90 Unspecified hearing loss, unspecified ear; I07.1 Rheumatic tricuspid insufficiency; I13.2 Hypertensive heart and chronic kidney disease with heart failure and with stage 5 chronic kidney disease, or end stage renal disease; I25.110 Atherosclerotic heart disease of native coronary artery with unstable angina pectoris; I25.2 Old myocardial infarction; I25.5 Ischemic cardiomyopathy; I27.20 Pulmonary hypertension, unspecified; I48.19 Other persistent atrial fibrillation; I49.5 Sick sinus syndrome; I50.22 Chronic systolic (congestive) heart failure; J45.909 Unspecified asthma, uncomplicated; K21.9 Gastro-esophageal reflux disease without esophagitis; M41.9 Scoliosis, unspecified; M89.9 Disorder of bone, unspecified; N18.6 End stage renal disease; Z79.01 Long term (current) use of anticoagulants; Z79.02 Long term (current) use of antithrombotics/antiplatelets; Z79.4 Long term (current) use of insulin; Z79.82 Long term (current) use of aspirin; Z79.890 Hormone replacement therapy; Z79.899 Other long term (current) drug therapy; Z82.49 Family history of ischemic heart disease and other diseases of the circulatory system; Z83.3 Family history of diabetes mellitus; Z86.16 Personal history of COVID-19; Z87.440 Personal history of urinary (tract) infections; Z90.710 Acquired absence of both cervix and uterus; Z95.0 Presence of cardiac pacemaker; Z95.5 Presence of coronary angioplasty implant and graft; Z96.1 Presence of intraocular lens; Z96.41 Presence of insulin pump (external) (internal); Z98.84 Bariatric surgery status; Z99.2 Dependence on renal dialysis; Z99.3 Dependence on wheelchair
CPT/HCPCS: 93005 ×2; 99285; 36415; 80061; 80053 ×2; 83735; 84484; 85025 ×2; 85610 ×2; 85730; 71045; G0257; G0378 ×2; 90935

== ENCOUNTER 2020-04-28 16:50 | Inpatient (IN) | payer MEDICARE, OTHER ==
[2020-04-28] MEDS ORDERED: MORPHINE SULFATE 4 MG/ML SYRINGE IVP STA ×2 (17:21→20:13)
[2020-04-28 17:29] LABS: Anisocytosis Slight; Basophils % (A) 1 %; Eosinophils # (A) 0.4 k/uL (0-0.7); Eosinophils % (A) 6 %; HCT 24.4 % (34.0-46.0); Hypochromasia Moderate; Lymphocytes # (A) 0.8 k/uL (1.0-4.8); Lymphocytes % (A) 12 %; MCH 29.5 pg (25.0-35.0); MCHC 30.6 g/dL (31.0-37.0); MCV 96.5 fL (80.0-100.0); Macrocytosis Slight; Mean Platelet Volume 8.4; Monocytes # (A) 0.4 k/uL (0-1.0); Monocytes % (A) 6 %; Neutrophils # (A) 4.8 k/uL (1.3-7.7); Neutrophils % (A) 74 %; Platelet Count 220 k/uL (150-450); RBC 2.53 m/uL (3.80-5.40); RDW 17.7 % (11.5-15.5); WBC 6.5 k/uL (3.8-10.6)
[2020-04-28 17:43] LABS: HGB 7.5 gm/dL (11.4-16.0)
[2020-04-28 17:49] LABS: Albumin 2.8 g/dL (3.5-5.0); Calcium 8.5 mg/dL (8.4-10.2); Potassium 3.5 mmol/L (3.5-5.1); Total Bilirubin 0.8 mg/dL (0.2-1.3); Total Protein 6.1 g/dL (6.3-8.2)
--- NOTE | 2020-04-28 17:53 | ED ---
Extremity Problem HPI - General Source: patient, EMS Mode of arrival: EMS Limitations: no limitations <Bubba Nathan - Last Filed: 04/28/20 18:56> <Parish Roldan - Last Filed: 04/28/20 19:58> - General Chief complaint: Extremity Problem,Nontraumatic Stated complaint: Hip Pain Time Seen by Provider: 04/28/20 16:57 - History of Present Illness Initial comments: 64-year-old female that presents to emergency department complaining of left hip pain. She did note that she is bed ridden and doesn't walk or get out of bed. She lives in an assisted living/long-term care facility. She did note that she missed dialysis today because she wanted to come here because of the pain. She noted that she is a Friday dialysis patient. She stated that her pain was about a 9.5 out of 10 currently (Bubba Nathan) - Related Data Home Medications Medication Instructions Recorded Confirmed Atorvastatin [Lipitor] 80 mg PO HS 12/27/16 04/28/20 Acetaminophen Tab [Tylenol] 500 mg PO Q6H PRN 01/11/19 04/28/20 Docusate Sodium [Dok] 100 mg PO BID 01/11/19 04/28/20 Escitalopram [Lexapro] 20 mg PO DAILY 04/02/19 04/28/20 Folic Acid-Vit B Complex-Vit C 1 cap PO MOWEFR@2100 04/02/19 04/28/20 [Nephrocaps] Folic Acid-Vit B Complex-Vit C 1 cap PO SUTUTHSA@0900 04/02/19 04/28/20 [Nephrocaps] Clopidogrel [Plavix] 75 mg PO DAILY 04/09/19 04/28/20 amLODIPine [Norvasc] 2.5 mg PO DAILY 04/09/19 04/28/20 Levothyroxine Sodium [Synthroid] 175 mcg PO DAILY 11/05/19 04/28/20 Sodium Polystyrene Sulfonate 15 gm PO SUTUTH 11/05/19 04/28/20 Lidocaine-Prilocaine Cream [Emla 1 applic TOPICAL MOWEFR 11/23/19 04/28/20 Cream 2.5%/2.5%] Furosemide [Lasix] 80 mg PO DAILY 01/28/20 04/28/20 Aspirin 81 mg PO DAILY 02/28/20 04/28/20 Sennosides [Senna] 8.6 mg PO DAILY PRN 02/28/20 04/28/20 Warfarin Sodium 4 mg PO DAILY@1700 04/03/20 04/28/20 carvediloL [Coreg] 3.125 mg PO BID 04/03/20 04/28/20 Insulin Lispro [humaLOG Kwikpen] 2 unit SQ HS 04/10/20 04/28/20 Insulin Lispro [humaLOG Kwikpen] See Protocol SQ ACHS 04/10/20 04/28/20 Ammonium Lactate Lotion 1 applic TOPICAL BID 04/28/20 04/28/20 [Lac-Hydrin 12% Lotion] Melatonin 10 mg PO HS 04/28/20 04/28/20 Nitroglycerin Sl Tabs [Nitrostat] 0.4 mg SL Q5M PRN 04/28/20 04/28/20 Previous Rx's Medication Instructions Recorded Insulin Detemir (Levemir) [Levemir] 18 unit SQ HS syr 03/04/20 HYDROcodone/APAP 10-325MG [[place] 1 tab PO Q12H PRN #6 tab 04/11/20 10-325] LORazepam [Ativan] 1 mg PO BID PRN #6 tab 04/11/20 Allergies Allergy/AdvReac Type Severity Reaction Status Date / Time adhesive Allergy Rash/Hives Verified 04/28/20 17:31 Penicillins Allergy Rash/Hives Verified 04/28/20 17:31 Iodinated Contrast Media AdvReac KIDNEY Verified 04/28/20 17:31 [Iodinated Contrast- Oral FAILURE and IV Dye] metformin AdvReac SUGAR Verified 04/28/20 17:31 LEVEL INCREASE Review of Systems ROS Other: All systems not noted in ROS Statement are negative. <Bubba Nathan - Last Filed: 04/28/20 18:56> ROS Other: All systems not noted in ROS Statement are negative. <Parish Roldan - Last Filed: 04/28/20 19:58> ROS Statement: Those systems with pertinent positive or pertinent negative responses have been documented in the HPI. Past Medical History Past Medical History: Atrial Flutter, Asthma, Coronary Artery Disease (CAD), Chest Pain / Angina, Heart Failure, Dementia, Diabetes Mellitus, Dialysis, GERD/Reflux, Hearing Disorder / Deafness, Hyperlipidemia, Hypertension, Liver Disease, Myocardial Infarction (NH), Osteoarthritis (OA), Pneumonia, Renal Disease, Thyroid Disorder, Vascular Disorder Additional Past Medical History / Comment(s): Pt recently admitted to [facility] on 04/03/20 with severe metabolic encephalopathy d/t ESRD with cardiac debitlity and cardiomyopathy. 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, hepatitis A which pt states was treated, pt is wheelchair bound, IBS, constipation, incontinent of stool, vertigo, PVD, pt believes she has a coccyx decubitus at this time, tinnitis bilaterally, sinus problems, chronic back pain/sciatica/scoliosis, hypothyroid, UTIs, vitamin D defiency, falls, Last Myocardial Infarction Date:: 04/02/20 History of Any Multi-Drug Resistant Organisms: MRSA, VRE Date of last positivie culture/infection: 11/11/18-VRE; 09/27/17 MRSA MDRO Source:: Urine-VRE; Right Breast-MRSA Past Surgical History: Adenoidectomy, Appendectomy, Bariatric Surgery, Cholecystectomy, Heart Catheterization, Heart Catheterization With Stent, Hysterectomy, Orthopedic Surgery, Pacemaker, Tonsillectomy Additional Past Surgical History / Comment(s): D&C, ovarian wedge resection, EG DLap band/gastric sleeve, hemodialysis fistula/surgery to reposition, L shoulder arthroscopic surgery, excisional debridement R lower extremity, bilateral cataract removals/lens implants. Past Anesthesia/Blood Transfusion Reactions: Motion Sickness, Postoperative Nausea & Vomiting (PONV) Additional Past Anesthesia/Blood Transfusion Reaction / Comment(s): blood transfusion-pt stated they gave her medication for a reaction but does'nt rememebr what the reaction was Date of Last Stent Placement:: 04/02/20 Type of Cardiac Device: Permanent Pacemaker Device Placement Date:: 04/20/18 Past Psychological History: Anxiety, Bipolar, Depression Smoking Status: Never smoker - Past Family History Mother Family Medical History: Congestive Heart Failure (CHF), Diabetes Mellitus, Hypertension Father History Unknown: Yes Family Medical History: Diabetes Mellitus Brother(s) Family Medical History: Diabetes Mellitus, Hyperlipidemia, Renal Disease Additional Family Medical History / Comment(s): chronic kidney disease <Bubba Nathan - Last Filed: 04/28/20 18:56> General Exam Limitations: no limitations <Bubba Nathan - Last Filed: 04/28/20 18:56> Course Vital Signs 04/28/20 17:02 Temperature 98.7 F Pulse Rate 61 Respiratory 20 Rate Blood Pressure 106/44 O2 Sat by Pulse 100 Oximetry Medical Decision Making - Lab Data Result diagrams: 04/28/20 17:23 04/28/20 17:23 - Radiology Data Radiology results: report reviewed, image reviewed <Bubba Nathan - Last Filed: 04/28/20 18:56> - Lab Data Result diagrams: 04/28/20 17:23 04/28/20 17:23 <Parish Roldan - Last Filed: 04/28/20 19:58> - Medical Decision Making Patient is a 64-year-old female that presents to emergency department complaining of left hip pain. X-rays and basic labs ordered. Labs: Hemoglobin was 7.5. X-ray was unremarkable. occult blood test ordered and completed. Case discussed and passed off to Dr. Roldan (Bubba Nathan) Patient is signed out to me. Plan at sign out was to follow up with stool occult blood. So-called is negative. Patient has heme of 7.5 which is well below her baseline. Most recently she had a hemoglobin of 10.2 in April 11. This is almost a 3 g drop in approximately 2-1/2 weeks. Patient is not here for symptoms of anemia. Serum most of her pain. She is reevaluated bedside approximate 7:50 PM and stable medical condition. Rest of her labs. Be mostly baseline. She was proceeded dialysis today however misted because she is here in emergency department. Considering patient's anemia she'll be admitted for serial CBCs. (Parish Roldan) - Lab Data Lab Results 04/28/20 04/28/20 04/28/20 Range/Units 17:23 17:23 19:09 WBC 6.5 (3.8-10.6) k/uL RBC 2.53 L (3.80-5.40) m/uL Hgb 7.5 L D (11.4-16.0) gm/dL Hct 24.4 L (34.0-46.0) % MCV 96.5 (80.0-100.0) fL MCH 29.5 (25.0-35.0) pg MCHC 30.6 L (31.0-37.0) g/dL RDW 17.7 H (11.5-15.5) % Plt Count 220 (150-450) k/uL MPV 8.4 Neutrophils % 74 % Lymphocytes % 12 % Monocytes % 6 % Eosinophils % 6 % Basophils % 1 % Neutrophils # 4.8 (1.3-7.7) k/uL Lymphocytes # 0.8 L (1.0-4.8) k/uL Monocytes # 0.4 (0-1.0) k/uL Eosinophils # 0.4 (0-0.7) k/uL Basophils # 0.0 (0-0.2) k/uL Hypochromasia Moderate Anisocytosis Slight Macrocytosis Slight Sodium 129 L (137-145) mmol/L Potassium 3.5 (3.5-5.1) mmol/L Chloride 90 L (98-107) mmol/L Carbon Dioxide 25 (22-30) mmol/L Anion Gap 14 mmol/L BUN 37 H (7-17) mg/dL Creatinine 5.15 H (0.52-1.04) mg/dL Est GFR (CKD-EPI)AfAm 9 (>60 ml/min/1.73 sqM) Est GFR (CKD-EPI)NonAf 8 (>60 ml/min/1.73 sqM) Glucose 467 H (74-99) mg/dL Calcium 8.5 (8.4-10.2) mg/dL Total Bilirubin 0.8 (0.2-1.3) mg/dL AST 23 (14-36) U/L ALT 19 (4-34) U/L Alkaline Phosphatase 85 (38-126) U/L Total Protein 6.1 L (6.3-8.2) g/dL Albumin 2.8 L (3.5-5.0) g/dL Stool Occult Blood Negative (Negative) - Radiology Data Osteoarthritis without acute osseous abnormality (Bubba Nathan) Disposition <Bubba Nathan - Last Filed: 04/28/20 18:56> Decision Time: 19:58 <Parish Roldan - Last Filed: 04/28/20 19:58> Clinical Impression: Hip pain, Osteoarthritis, Anemia Disposition: ADMITTED IP TO THIS [facility] Condition: Fair Instructions (If sedation given, give patient instructions): Osteoarthritis (ED), Hip Pain (ED) Additional Instructions: Please return to the Emergency Department if symptoms worsen or any other concerns. Follow-up with dialysis for low hemoglobin and anemia. Position change every 2 hours to avoid pressure sores and sacral/hip pain. Continue take medications as prescribed. Follow-up with primary care 1-2 days. Referrals: Kimberli Gar MD [Primary Care Provider] - 1-2 days
--- NOTE | 2020-04-28 18:46 | XR ---
EXAMINATION TYPE: XR Hip Bilateral and AP pelvis DATE OF EXAM: 04/28/2020 COMPARISON: 11/19/2019. HISTORY: Bilateral hip pain. TECHNIQUE: A single AP view of the pelvis is obtained. Two views each of the bilateral hips are obtai mehreen. FINDINGS: There is no acute fracture or dislocation of the pelvis or bilateral hips. Remote posttraum atic changes of the right pubic rami are seen. There is moderate osteoarthritis of the bilateral hips . The sacroiliac joints and pubic symphysis are patent. Atherosclerotic calcifications are seen. IMPRESSION: Osteoarthritis without acute osseous abnormality.
[2020-04-28] MEDS ORDERED: NALOXONE 0.4 MG/ML 1 ML VIAL IV PRN (19:58)
[2020-04-28] MEDS ORDERED: PANTOPRAZOLE 40 MG/10 ML VIAL IVP STA (20:08)
[2020-04-28 22:01] LABS: Glucose,Whole Blood 491 mg/dL (75-99)
[2020-04-28] MEDS ORDERED: HYDROcodone/APAP 10-325MG 1 EACH TAB PO PRN (23:15)
[2020-04-28] MEDS ORDERED: ACETAMINOPHEN TAB 500 MG TAB PO PRN (23:15)
[2020-04-28] MEDS ORDERED: NITROGLYCERIN SL TABS 0.4 MG TAB SUBLINGUAL PRN (23:15)
[2020-04-28] MEDS ORDERED: SENNOSIDES 8.6 MG TAB PO PRN (23:15)
[2020-04-28] MEDS ORDERED: LORazepam 1 MG TAB PO PRN (23:15)
[2020-04-28] MEDS: MELATONIN 5 MG TABLET PO SCH (23:41)
[2020-04-28] MEDS: carvediloL 6.25 MG TAB PO SCH (23:42)
[2020-04-28] MEDS: INSULIN ASPART (NovoLOG) 100 UNIT/ML VIAL SQ SCH (23:42)
[2020-04-28] MEDS: INSULIN DETEMIR (LEVEMIR) 100 UNIT/ML SYR SQ SCH (23:42)
[2020-04-28] MEDS: MORPHINE SULFATE 4 MG/ML SYRINGE IV PRN (23:46)
[2020-04-29 00:16] LABS: Anisocytosis Slight; HCT 25.6 % (34.0-46.0); HGB 7.9 gm/dL (11.4-16.0); Hypochromasia Marked; MCH 30.6 pg (25.0-35.0); MCHC 30.8 g/dL (31.0-37.0); MCV 99.3 fL (80.0-100.0); Macrocytosis Slight; Platelet Count 218 k/uL (150-450); RBC 2.57 m/uL (3.80-5.40); RDW 17.7 % (11.5-15.5); WBC 6.7 k/uL (3.8-10.6)
[2020-04-29 00:17] LABS: Prothrombin Time 29.2 sec (9.0-12.0)
[2020-04-29 02:35] LABS: Anisocytosis Slight; HCT 24.3 % (34.0-46.0); HGB 7.5 gm/dL (11.4-16.0); Hypochromasia Marked; MCH 30.8 pg (25.0-35.0); MCV 99.4 fL (80.0-100.0); Macrocytosis Slight; Mean Platelet Volume 8.5; Platelet Count 189 k/uL (150-450); RBC 2.45 m/uL (3.80-5.40); WBC 6.7 k/uL (3.8-10.6)
[2020-04-29] MEDS: LEVOTHYROXINE 50 MCG TAB PO SCH (05:35)
[2020-04-29 07:41] LABS: Glucose,Whole Blood 370 mg/dL (75-99)
[2020-04-29 07:55] LABS: Anisocytosis Slight; HCT 25.5 % (34.0-46.0); HGB 7.7 gm/dL (11.4-16.0); Hypochromasia Marked; MCH 30.3 pg (25.0-35.0); MCHC 30.3 g/dL (31.0-37.0); MCV 99.8 fL (80.0-100.0); Macrocytosis Slight; Mean Platelet Volume 7.7; Platelet Count 214 k/uL (150-450); RBC 2.55 m/uL (3.80-5.40); RDW 17.8 % (11.5-15.5); WBC 7.1 k/uL (3.8-10.6)
[2020-04-29] MEDS: MORPHINE SULFATE 4 MG/ML SYRINGE IV PRN ×3 (08:15→21:47)
[2020-04-29] MEDS: DOCUSATE 100 MG CAP PO SCH ×2 (08:19→21:50)
[2020-04-29] MEDS: ESCITALOPRAM 20 MG TAB PO SCH (08:19)
[2020-04-29] MEDS: ASPIRIN 81 MG PO SCH (08:19)
[2020-04-29] MEDS: CLOPIDOGREL 75 MG TAB PO SCH (08:19)
[2020-04-29] MEDS: carvediloL 6.25 MG TAB PO SCH ×2 (08:20→17:34)
[2020-04-29] MEDS: FUROSEMIDE 80 MG TAB PO SCH (08:20)
[2020-04-29] MEDS: INSULIN ASPART (NovoLOG) 100 UNIT/ML VIAL SQ SCH ×4 (08:20→21:51)
[2020-04-29] MEDS: FOLIC ACID-VIT B COMPLEX-VIT C 1 CAP PO SCH (08:21)
[2020-04-29] MEDS ORDERED: amLODIPine 2.5 MG TAB PO SCH (09:00)
[2020-04-29 11:38] LABS: Glucose,Whole Blood 292 mg/dL (75-99)
[2020-04-29] MEDS: AMMONIUM LACTATE 12% LOTION 225 GM BTL TOPICAL SCH ×2 (12:02→21:50)
--- NOTE | 2020-04-29 12:26 | P.NPCON ---
History of Present Illness - Reason for Consult end stage renal disease - History of Present Illness Reason for consultation: End-stage renal disease History of present illness: Patient is a 64-year-old female seen in consultation for end-stage renal disease. She is maintained on hemodialysis on Friday schedule. Last dialysis was on Friday. Patient states she missed yesterday's tr eatment due to not feeling well. Patient came to the hospital due to left-sided hip pain. Imaging revealed no evidence of fracture. Patient denies any falls or injuries. No fever or chills. No vomiting or diarrhea. She is awake and alert. No fever or chills. No cough. Blood pressure fairly stable. No abdominal pain. She resides at [facility] long-term. Vital signs are stable. General: The patient appeared well nourished and normally developed. HEENT: Head exam is unremarkable. Neck is without jugular venous distension. LUNGS: Breath sounds decreased. HEART: Rate and Rhythm are regular. ABDOMEN: Soft, nontender. EXTREMITITES: No edema. Chronic changes noted. Past Medical History Past Medical History: Atrial Flutter, Asthma, Coronary Artery Disease (CAD), Chest Pain / Angina, Heart Failure, Dementia, Diabetes Mellitus, Dialysis, GERD/Reflux, Hearing Disorder / Deafness, Hyperlipidemia, Hypertension, Liver Disease, Myocardial Infarction (IN), Osteoarthritis (OA), Pneumonia, Renal Disease, Thyroid Disorder, Vascular Disorder Additional Past Medical History / Comment(s): Pt recently admitted to [facility] on 04/03/20 with severe metabolic encephalopathy d/t ESRD with cardiac debitlity and cardiomyopathy. 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, hepatitis A which pt states was treated, pt is wheelchair bound, IBS, constipation, incontinent of stool, vertigo, PVD, pt believes she has a coccyx decubitus at this time, tinnitis bilaterally, sinus problems, chronic back pain/sciatica/scoliosis, hypothyroid, UTIs, vitamin D defiency, falls, Last Myocardial Infarction Date:: 04/02/20 History of Any Multi-Drug Resistant Organisms: MRSA, VRE Date of last positivie culture/infection: 11/11/18-VRE; 09/27/17 MRSA MDRO Source:: Urine-VRE; Right Breast-MRSA Past Surgical History: Adenoidectomy, Appendectomy, Bariatric Surgery, Cholecystectomy, Heart Catheterization, Heart Catheterization With Stent, Hysterectomy, Orthopedic Surgery, Pacemaker, Tonsillectomy Additional Past Surgical History / Comment(s): D&C, ovarian wedge resection, EGDLap band/gastric sleeve, hemodialysis fistula/surgery to reposition, L shoulder arthroscopic surgery, excisional debridement R lower extremity, bilateral cataract removals/lens implants. Past Anesthesia/Blood Transfusion Reactions: Motion Sickness, Postoperative Nausea & Vomiting (PONV) Additional Past Anesthesia/Blood Transfusion Reaction / Comment(s): blood t ransfusion-pt stated they gave her medication for a reaction but does'nt rememebr what the reaction was Date of Last Stent Placement:: 04/02/20 Type of Cardiac Device: Permanent Pacemaker Device Placement Date:: 04/20/18 Past Psychological History: Anxiety, Bipolar, Depression Additional Psychological History / Comment(s): Pt resides at [facility] and is wheel chair bound. She requires a 2 person transfer or requires a cuate lift Smoking Status: Never smoker Past Alcohol Use History: None Reported Past Drug Use History: None Reported - Past Family History Mother Family Medical History: Congestive Heart Failure (CHF), Diabetes Mellitus, Hypertension Father History Unknown: Yes Family Medical History: Diabetes Mellitus Brother(s) Family Medical History: Diabetes Mellitus, Hyperlipidemia, Renal Disease Additional Family Medical History / Comment(s): chronic kidney disease Medications and Allergies Home Medications Medication Instructions Recorded Confirmed Type Atorvastatin [Lipitor] 80 mg PO HS 12/27/16 04/28/20 History Acetaminophen Tab [Tylenol] 500 mg PO Q6H PRN 01/11/19 04/28/20 History Docusate Sodium [Dok] 100 mg PO BID 01/11/19 04/28/20 History Escitalopram [Lexapro] 20 mg PO DAILY 04/02/19 04/28/20 History Folic Acid-Vit B Complex-Vit C 1 cap PO MOWEFR@2100 04/02/19 04/28/20 History [Nephrocaps] Folic Acid-Vit B Complex-Vit C 1 cap PO SUTUTHSA@0900 04/02/19 04/28/20 History [Nephrocaps] Clopidogrel [Plavix] 75 mg PO DAILY 04/09/19 04/28/20 History amLODIPine [Norvasc] 2.5 mg PO DAILY 04/09/19 04/28/20 History Levothyroxine Sodium [Synthroid] 175 mcg PO DAILY 11/05/19 04/28/20 History Sodium Polystyrene Sulfonate 15 gm PO SUTUTH 11/05/19 04/28/20 History Lidocaine-Prilocaine Cream [Emla 1 applic TOPICAL MOWEFR 11/23/19 04/28/20 History Cream 2.5%/2.5%] Furosemide [Lasix] 80 mg PO DAILY 01/28/20 04/28/20 History Aspirin 81 mg PO DAILY 02/28/20 04/28/20 History Sennosides [Senna] 8.6 mg PO DAILY PRN 02/28/20 04/28/20 History Insulin Detemir (Levemir) [Levemir] 18 unit SQ HS syr 03/04/20 04/28/20 Rx Warfarin Sodium 4 mg PO DAILY@1700 04/03/20 04/28/20 History carvediloL [Coreg] 3.125 mg PO BID 04/03/20 04/28/20 History Insulin Lispro [humaLOG Kwikpen] 2 unit SQ HS 04/10/20 04/28/20 History Insulin Lispro [humaLOG Kwikpen] See Protocol SQ ACHS 04/10/20 04/28/20 History HYDROcodone/APAP 10-325MG [Hubertus 1 tab PO Q12H PRN #6 tab 04/11/20 04/28/20 Rx 10-325] LORazepam [Ativan] 1 mg PO BID PRN #6 tab 04/11/20 04/28/20 Rx Ammonium Lactate Lotion 1 applic TOPICAL BID 04/28/20 04/28/20 History [Lac-Hydrin 12% Lotion] Melatonin 10 mg PO HS 04/28/20 04/28/20 History Nitroglycerin Sl Tabs [Nitrostat] 0.4 mg SL Q5M PRN 04/28/20 04/28/20 History Allergies Allergy/AdvReac Type Severity Reaction Status Date / Time adhesive Allergy Rash/Hives Verified 04/28/20 17:31 Penicillins Allergy Rash/Hives Verified 02/12/21 17:31 Iodinated Contrast Media AdvReac KIDNEY Verified 04/28/20 17:31 [Iodinated Contrast- Oral FAILURE and IV Dye] metformin AdvReac SUGAR Verified 04/28/20 17:31 LEVEL INCREASE Physical Exam Vitals: Vital Signs Temp Pulse Pulse Resp BP BP Pulse Ox 04/29/20 11:24 97.5 F L 60 16 108/58 97 04/29/20 04:47 97.5 F L 65 16 95/53 98 04/28/20 21:53 97.9 F 60 18 111/54 100 04/28/20 20:09 97.8 F 60 18 119/56 97 04/28/20 17:02 98.7 F 61 20 106/44 100 Intake and Output 04/28/20 04/29/20 04/29/20 22:59 06:59 14:59 Intake Total 240 Balance 240 Intake: Oral 240 Other: Voiding Method Diaper Weight 88.5 kg Results - Lab Results Most recent lab results Calcium 8.5 mg/dL (8.4-10.2) 04/28/20 17:23 04/29/20 07:19 04/28/20 17:23 Assessment and Plan Plan: Assessment: 1. End-stage renal disease maintained on hemodialysis on Friday schedule. 2. Left hip pain. No fracture noted. Pain better controlled. 3. Diabetes mellitus. 4. Hypertonic hyponatremia secondary to hyperglycemia. 5. Anemia of chronic kidney disease. Plan: Hemodialysis today. Tight blood sugar control. Check iron studies. Add Aranesp. Hold amlodipine for systolic blood pressure less than 125. Thank you for the consultation. I will continue to follow the patient with you during her hospital stay.
[2020-04-29] MEDS ORDERED: DARBEPOETIN ALFA 40 MCG/0.4 ML SYRINGE SQ SCH (12:30)
--- NOTE | 2020-04-29 12:41 | CONS ---
CONSULTATION DATE OF DICTATION: April 29, 2020. REASON FOR CONSULTATION: Anemia with a hemoglobin of 7.5 g/dL. HISTORY OF PRESENT ILLNESS: The patient is a 64-year-old pleasant white female with history of end-stage renal disease on hemodialysis, came to the emergency room with severe left hip pain. The patient states that she has been having the left hip pain for the last one week duration which has been progressively getting worse. She has history of end-stage renal disease on hemodialysis and has been living at [facility] on [facility] for the last several years. For the last several years duration, most of the time, she has been bedridden and unable to walk. When she came to the emergency room, she had a CBC done that showed a hemoglobin of 7.5 g/dL and hence we are consulted in regards to this issue. The patient denies any abdominal pain. She reports no nausea, vomiting. No rectal bleeding or melena. She has been on Coumadin for history of atrial flutter. PAST MEDICAL HISTORY: Significant for coronary artery disease, history of diabetes mellitus, end-stage renal disease on hemodialysis for the last 2 years duration, gastroesophageal reflux disease, hypertension, hyperlipidemia, coronary artery disease, degenerative joint disease, hypothyroidism. Recent COVID-19 infection. PAST SURGICAL HISTORY: Appendectomy, adenoidectomy, bariatric surgery, cholecystectomy, cardiac catheterization, hysterectomy, pacemaker implantation, history of gastric sleeve surgery, left shoulder surgery, AV fistula for hemodialysis. MEDICATIONS: Medications at home include: Coreg, Norvasc, Coumadin, Senna, Kayexalate, Nitrostat, melatonin, lidocaine cream, levothyroxine, Ativan, Humalog, Levemir, Lasix, vitamin B complex, Folic acid, aspirin and Plavix, Lexapro, Lipitor, Tylenol. ALLERGIES: TO PENICILLIN, IV CONTRAST DYE. SOCIAL HISTORY: No smoking. No alcohol use. FAMILY HISTORY: Mother had diabetes mellitus, hypertension, congestive heart failure. Father has diabetes mellitus. REVIEW OF SYSTEMS: CARDIOPULMONARY: No chest pain, no shortness of breath. no dysuria, no hematuria. MUSCULOSKELETAL: Severe left hip pain. NEUROLOGY unremarkable. PSYCHIATRIC unremarkable. CONSTITUTIONAL: No recent weight loss. No fever, chills, night sweats. Mostly bedridden. PHYSICAL EXAMINATION: She appears comfortable. No apparent distress. VITAL SIGNS: Stable. Blood pressure is 119/56, pulse rate 60, temperature 97.8. HEENT examination unremarkable. Conjunctivae pink. Sclerae anicteric. Oral cavity no lesions. NECK: No JVD or lymph node enlargement. CHEST was clear to auscultation. HEART: Regular rate and rhythm. ABDOMEN: Obese. There was some tenderness in the epigastric area. Rest of the abdomen was benign. EXTREMITIES: No pedal edema. NEURO: She is alert and oriented x3. LABS: At the time of admission to the hospital: WBC was 6.7, hemoglobin 7.9, platelets 218, PTT 29.2. INR is 3. Sodium 129, potassium 3.5, chloride 90, BUN 35, creatinine 5.51, blood sugar was 467, albumin 2.8. Stool occult blood was negative. IMPRESSION: 1. Normocytic anemia with Hemoccult negative stools, most likely anemia is multifactorial in etiology, probably related to chronic kidney disease, may have a component of blood loss but her Hemoccult stool was negative yesterday. 2. History of atrial fibrillation/a flutter on Coumadin. INR is 3. 3. End-stage renal disease on hemodialysis. 4. Left hip pain. She did have hip x-rays done yesterday that showed osteoarthritis without any acute abnormalities. 5. Longstanding history of diabetes mellitus and hypertension. 6. Lower extremity weakness and bedridden. RECOMMENDATION: 1. Will obtain iron studies for now. 2. Monitor CBC daily. 3. Continue anticoagulation since there is no evidence of active bleeding. 4. Based on iron studies, we will decide if she needs to have any endoscopy workup. The patient does think that she did have an EGD /colonoscopy done about 3 or 4 years ago, but no records available. 5. We will follow with you closely. Thank you for this consultation. MMODL / IJN: [id number] /
[2020-04-29 14:03] LABS: INR 2.86 (0.90-1.11); Prothrombin Time 29.1 sec (9.9-11.9)
[2020-04-29] MEDS ORDERED: MIDODRINE 5 MG TAB PO PRN (14:07)
--- NOTE | 2020-04-29 14:39 | P.HPIM ---
History of Present Illness H&P Date: 04/22/20 This is a 64-year-old obese female patient of paty, Dr. JAE Jc, and Dr. Talley with multiple medical problem was known to have end-stage kidney disease on hemodialysis Friday, coronary artery disease and prior coronary artery stenting, diabetes type 2 insulin requiring, dyslipidemia, history of permanent pacemaker. Patient is a long-term resident at [facility] developed to have COVID-19 during an outbreak that affected [facility] on [facility] and she was sent to [facility] for evaluation and treatment and she eventually was sent back to [facility] on the [place], patient was just recently discharged from [facility] after she was admitted for metabolic e ncephalopathy due to uremia and cardiac debility and had echocardiogram that showed LVF 30-35 % and she was sen by cardiology and no new recommendations were made , patient ended up going back to [facility] on the [place] few days ago, today while she was in route to hemodialysis she developed to have left sided chest pain radiating under her breast with pleurisy and the she was taken to the ER a [facility] instead her initial evaluation was negative but because of her cardiac history she was kept in for cardiac evaluation again and then she was discharged back to [facility], patient yesterday had sever left sided hip pain without history of any injury and she asked the nurse that she wanted to go to the Hospital after threatening of calling 911 her self from the facility, and she had refused to go to her dialysis due to the left sided hip pain and she was sent to the ER for evaluation, she was found to have anemia and she was admitted to the hospital for evaluation by GI. Review of Systems Constitutional: Reports anorexia, Reports chronic pain, Reports fatigue, Reports malaise, Reports weakness, Reports weight loss Eyes: bilateral blurred vision, denies bulging eye, denies decreased vision Ears: deny: decreased hearing Ears, nose, mouth and throat: Denies dysphagia, Denies neck lump, Denies sore throat Cardiovascular: Reports decreased exercise tolerance, Reports dyspnea on exertion, Reports shortness of breath, Denies chest pain, Denies leg edema, Denies rapid heart beat, Denies syncope Respiratory: Denies congestion, Denies cough with sputum, Denies dyspnea, Denies home oxygen, Denies respiratory infections, Denies sleep apnea, Denies snoring, Denies wheezing Gastrointestinal: Reports loss of appetite, Denies abdominal pain, Denies bloating, Denies excessive gas, Denies heartburn, Denies melena, Denies nausea, Denies vomiting Genitourinary: Denies dysuria, Denies nocturia Menstruation: Reports postmenopausal Musculoskeletal: Reports frequent falls, Reports gait dysfunction, Reports loss of height, Reports morning stiffness, Reports neck stiffness, Reports shooting leg pain Musculoskeletal: left: hip pain, hip stiffness, bilateral: ankle swelling, absent: ankle pain, ankle stiffness, elbow pain, elbow stiffness, elbow swelling, foot pain, foot stiffness, foot swelling, hand pain, hand stiffness, hand swelling, hip swelling, knee pain, knee stiffness, knee swelling, shoulder pain, shoulder stiffness, shoulder swelling, wrist pain, wrist stiffness, wrist swelling Integumentary: Denies pruritus, Denies rash Neurological: Reports gait dysfunction, Reports memory loss, Reports sensory deficit, Reports weakness Psychiatric: Reports anxiety, Reports depression, Reports difficulty concentrating, Reports memory loss, Reports sadness/tearfulness, Reports sleep disturbances, Denies suicidal ideation Endocrine: Denies fatigue, Denies weight change Past Medical History Past Medical History: Atrial Flutter, Asthma, Coronary Artery Disease (CAD), Chest Pain / Angina, Heart Failure, Dementia, Diabetes Mellitus, Dialysis, GERD/Reflux, Hearing Disorder / Deafness, Hyperlipidemia, Hypertension, Liver Disease, Myocardial Infarction ([place]), Osteoarthritis (OA), Pneumonia, Renal Disease, Thyroid Disorder, Vascular Disorder Additional Past Medical History / Comment(s): Pt recently admitted to [facility] on 04/03/20 with severe metabolic encephalopathy d/t ESRD with cardiac debitlity and cardiomyopathy. 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, hepatitis A which pt states was treated, pt is wheelchair bound, IBS, constipation, incontinent of stool, vertigo, PVD, pt believes she has a coccyx decubitus at this time, tinnitis bilaterally, sinus problems, chronic back pain/sciatica/scoliosis, hypothyroid, UTIs, vitamin D defiency, falls, Last Myocardial Infarction Date:: 04/02/20 History of Any Multi-Drug Resistant Organisms: MRSA, VRE Date of last positivie culture/infection: 11/11/18-VRE; 09/27/17 MRSA MDRO Source:: Urine-VRE; Right Breast-MRSA Past Surgical History: Adenoidectomy, Appendectomy, Bariatric Surgery, Cholecystectomy, Heart Catheterization, Heart Catheterization With Stent, Hysterectomy, Orthopedic Surgery, Pacemaker, Tonsillectomy Additional Past Surgical History / Comment(s): D&C, ovarian wedge resection, EGDLap band/gastric sleeve, hemodialysis fistula/surgery to reposition, L shoulder arthroscopic surgery, excisional debridement R lower extremity, bilateral cataract removals/lens implants. Past Anesthesia/Blood Transfusion Reactions: Motion Sickness, Postoperative Nausea & Vomiting (PONV) Additional Past Anesthesia/Blood Transfusion Reaction / Comment(s): blood transfusion-pt stated they gave her medication for a reaction but does'nt rememebr what the reaction was Date of Last Stent Placement:: 04/02/20 Type of Cardiac Device: Permanent Pacemaker Device Placement Date:: 04/20/18 Past Psychological History: Anxiety, Bipolar, Depression Additional Psychological History / Comment(s): Pt resides at [facility] and is wheel chair bound. She requires a 2 person transfer or requires a cuate lift Smoking Status: Never smoker Past Alcohol Use History: None Reported Past Drug Use History: None Reported - Past Family History Mother Family Medical History: Congestive Heart Failure (CHF), Diabetes Mellitus, Hypertension Father History Unknown: Yes Family Medical History: Diabetes Mellitus Brother(s) Family Medical History: Diabetes Mellitus, Hyperlipidemia, Renal Disease Additional Family Medical History / Comment(s): chronic kidney disease Medications and Allergies Home Medications Medication Instructions Recorded Confirmed Type Atorvastatin [Lipitor] 80 mg PO HS 12/27/16 04/28/20 History Acetaminophen Tab [Tylenol] 500 mg PO Q6H PRN 01/11/19 04/28/20 History Docusate Sodium [Dok] 100 mg PO BID 01/11/19 04/28/20 History Escitalopram [Lexapro] 20 mg PO DAILY 04/02/19 04/28/20 History Folic Acid-Vit B Complex-Vit C 1 cap PO MOWEFR@2100 04/02/19 04/28/20 History [Nephrocaps] Folic Acid-Vit B Complex-Vit C 1 cap PO SUTUTHSA@0900 04/02/19 04/28/20 History [Nephrocaps] Clopidogrel [Plavix] 75 mg PO DAILY 04/09/19 04/28/20 History amLODIPine [Norvasc] 2.5 mg PO DAILY 04/09/19 04/28/20 History Levothyroxine Sodium [Synthroid] 175 mcg PO DAILY 11/05/19 04/28/20 History Sodium Polystyrene Sulfonate 15 gm PO SUTUTH 11/05/19 04/28/20 History Lidocaine-Prilocaine Cream [Emla 1 applic TOPICAL MOWEFR 11/23/19 04/28/20 His tory Cream 2.5%/2.5%] Furosemide [Lasix] 80 mg PO DAILY 01/28/20 04/28/20 History Aspirin 81 mg PO DAILY 02/28/20 04/28/20 History Sennosides [Senna] 8.6 mg PO DAILY PRN 02/28/20 04/28/20 History Insulin Detemir (Levemir) [Levemir] 18 unit SQ HS syr 03/04/20 04/28/20 Rx Warfarin Sodium 4 mg PO DAILY@1700 04/03/20 04/28/20 History carvediloL [Coreg] 3.125 mg PO BID 04/03/20 04/28/20 History Insulin Lispro [humaLOG Kwikpen] 2 unit SQ HS 04/10/20 04/28/20 History Insulin Lispro [humaLOG Kwikpen] See Protocol SQ ACHS 04/10/20 04/28/20 History HYDROcodone/APAP 10-325MG [Hoyt 1 tab PO Q12H PRN #6 tab 04/11/20 04/28/20 Rx 10-325] LORazepam [Ativan] 1 mg PO BID PRN #6 tab 04/11/20 04/28/20 Rx Ammonium Lactate Lotion 1 applic TOPICAL BID 04/28/20 04/28/20 History [Lac-Hydrin 12% Lotion] Melatonin 10 mg PO HS 04/28/20 04/28/20 History Nitroglycerin Sl Tabs [Nitrostat] 0.4 mg SL Q5M PRN 04/28/20 04/28/20 History Allergies Allergy/AdvReac Type Severity Reaction Status Date / Time adhesive Allergy Rash/Hives Verified 04/28/20 17:31 Penicillins Allergy Rash/Hives Verified 04/28/20 17:31 Iodinated Contrast Media AdvReac KIDNEY Verified 04/28/20 17:31 [Iodinated Contrast- Oral FAILURE and IV Dye] metformin AdvReac SUGAR Verified 04/28/20 17:31 LEVEL INCREASE Physical Exam Vitals: Vital Signs Temp Pulse Pulse Resp BP BP Pulse Ox 04/29/20 11:24 97.5 F L 60 16 108/58 97 04/29/20 04:47 97.5 F L 65 16 95/53 98 04/28/20 21:53 97.9 F 60 18 111/54 100 04/28/20 20:09 97.8 F 60 18 119/56 97 04/28/20 17:02 98.7 F 61 20 106/44 100 Intake and Output 04/28/20 04/29/20 04/29/20 22:59 06:59 14:59 Intake Total 240 Balance 240 Intake: Oral 240 Other: Voiding Method Diaper Weight 88.5 kg Physical examination: General: 64-year-old female who is laying down in bed appears to be very weak does not appear to be in acute distress at this point in time. HEENT: Head is atraumatic, normocephalic, pupils were equal round reactive to light and recommendation, extraocular muscle movement were intact, sclera nonicteric, conjunctivae were pale, mucous membranes of the mouth are somewhat dry. Neck: Supple, no JVP, decreased carotid upstroke bilaterally, no lymphadenopathy. Chest: Decreased breath sounds at the bases, few rhonchi, no extremity wheezes, no chest wall tenderness, no intercostal retractions. Heart: First heart sound is depressed, second heart sounds normal, there is systolic ejection murmur 2/6 located in the left sternal border. Abdomen: Soft, nontender, nondistended, positive bowel sounds. Extremities: There is no edema no calf tenderness DP +1 bilaterally. Neurologic examination: Patient is awake alert and oriented 2, cranial nerves III-12 appear grossly intact, muscle power were 4 out of 5 in upper extremities and 3 out of 5 in bilateral lower extremities, deep tendon reflexes were depressed bilaterally, there is also neuropathic changes to both lower extremity with decreased sensation. Results CBC & Chem 7: 04/29/20 07:19 04/28/20 17:23 Labs: Abnormal Lab Results - Last 24 Hours (Table) 04/28/20 04/28/20 04/28/20 Range/Units 17:23 17:23 21:58 RBC 2.53 L (3.80-5.40) m/uL Hgb 7.5 L D (11.4-16.0) gm/dL Hct 24.4 L (34.0-46.0) % MCHC 30.6 L (31.0-37.0) g/dL RDW 17.7 H (11.5-15.5) % Lymphocytes # 0.8 L (1.0-4.8) k/uL PT (9.0-12.0) sec INR (<1.2) Sodium 129 L (137-145) mmol/L Chloride 90 L (98-107) mmol/L BUN 37 H (7-17) mg/dL Creatinine 5.15 H (0.52-1.04) mg/dL Glucose 467 H (74-99) mg/dL POC Glucose (mg/dL) 491 H (75-99) mg/dL Total Protein 6.1 L (6.3-8.2) g/dL Albumin 2.8 L (3.5-5.0) g/dL 04/28/20 04/28/20 04/29/20 Range/Units 23:50 23:50 02:04 RBC 2.57 L 2.45 L (3.80-5.40) m/uL Hgb 7.9 L 7.5 L (11.4-16.0) gm/dL Hct 25.6 L 24.3 L (34.0-46.0) % MCHC 30.8 L (31.0-37.0) g/dL RDW 17.7 H 18.0 H (11.5-15.5) % Lymphocytes # (1.0-4.8) k/uL PT 29.2 H (9.0-12.0) sec INR 3.0 H (<1.2) Sodium (137-145) mmol/L Chloride (98-107) mmol/L BUN (7-17) mg/dL Creatinine (0.52-1.04) mg/dL Glucose (74-99) mg/dL POC Glucose (mg/dL) (75-99) mg/dL Total Protein (6.3-8.2) g/dL Albumin (3.5-5.0) g/dL 04/29/20 04/29/20 04/29/20 Range/Units 07:19 07:39 11:27 RBC 2.55 L (3.80-5.40) m/uL Hgb 7.7 L (11.4-16.0) gm/dL Hct 25.5 L (34.0-46.0) % MCHC 30.3 L (31.0-37.0) g/dL RDW 17.8 H (11.5-15.5) % Lymphocytes # (1.0-4.8) k/uL PT (9.0-12.0) sec INR (<1.2) Sodium (137-145) mmol/L Chloride (98-107) mmol/L BUN (7-17) mg/dL Creatinine (0.52-1.04) mg/dL Glucose (74-99) mg/dL POC Glucose (mg/dL) 370 H 292 H (75-99) mg/dL Total Protein (6.3-8.2) g/dL Albumin (3.5-5.0) g/dL Thrombosis Risk Factor Assmnt - DVT/VTE Prophylaxis DVT/VTE Prophylaxis: Pharmacologic Prophylaxis ordered, Mechanical Prophylaxis ordered - Choose All That Apply Any of the Below Risk Factors Present?: Yes Each Factor Represents 1 point: Obesity (BMI >25) Other Risk Factors: Yes Each Risk Factor Represents 2 Points: Age 61-74 years, Patient confined to bed Other congenital or acquired thrombophilia - If yes, enter type in comment: No Thrombosis Risk Factor Assessment Total Risk Factor Score: 5 Thrombosis Risk Factor Assessment Level: High Risk Assessment and Plan Assessment: Assessment and Plan Assessment: Assessment and Plan: 1. Anemia multifactorial likely related to chronic kidney disease however cannot rule out GI source, monitor the patient's CBC every 8 hours, GI consultation, start the patient on Protonix 40 mg IV push every 24 hours. 2. Recent NSTEMI. we will continue with ASA 81 mg orally daily, PLavix 75 mg orally daily and Lipitor 80 mg orally daily and add small dose of Coreg 3.125 mg orally bid, cardiology evaluation, we will check Echocardiogram for evaluation of her LVF and wall motion. 3. Recent COVID . recovered. 4. End-stage renal disease on hemodialysis Friday. Nephrology consult appreciated Continue Amandeep Mendez. 5. History of coronary artery disease with prior stenting of the LAD. We will continue the patient on aspirin 81 mg once every day, Plavix 75 mg orally once every day, Lipitor 80 mg once every day, added Coreg 3.125 mg orally bid. 6. Hyponatremia likely related to hypervolemia patient did miss her dialysis yesterday. She will go for another hemodialysis today. 7. Acute on chronic anemia due to chronic kidney disease and possible GI loss. 2 Protonix 40 mg IV push every 24 hours, GI consultation. 8. Hypertension and hypertensive cardiovascular disease. Continue amlodipine2.5 mg daily and add Coreg 3.125 mg orally bid. 9. Hyperlipidemia. Continue atorvastatin 80 mg at bedtime 10. Gastroesophageal reflux disease and GI prophylaxis. we will continue with Protonix 40 mg orally daily. 11. Diabetes mellitus type 2, insulin requiring. We will continue Levemir 18 units at bedtime along with the Humalog per sliding scale insulin. 12. Generalized anxiety disorder and recurrent depression. Continue Lexapro 20 mg orally once every day as well as Ativan 1 mg orally twice every day. 13. Hypothyroidism. Continue patient on levothyroxine 175 g orally once every day. 14. history of symptomatic Bradycardia and recently was diagnosed with atrial fibrillation post PPM amd currently fully anticoagulated. 15. DVT prophylaxis. we will contiue with coumadin INR is therapeutic. 16. GI prophylaxis. we will contiue with Protonix 40 mg 17. Me IV push daily.dical debility. Physical therapy evaluation. 18. scruff worker consultation for discharge planning to [facility]. 19. Patient is full code. 20. Admit to inpatient. Estimated length of stay 2 midnights.
[2020-04-29 16:59] LABS: Glucose,Whole Blood 117 mg/dL (75-99)
[2020-04-29] MEDS ORDERED: NON FORMULARY DRUG (Warfarin Sodium [Warfarin Sodium] 4 MG Tablet) PO SCH (17:00)
[2020-04-29] MEDS ORDERED: WARFARIN 2 MG TAB PO ONE ×2 (18:00)
[2020-04-29 18:44] LABS: % Iron Saturation 29.03 (12.00-45.00)
[2020-04-29 19:20] LABS: Ferritin 2376.5 ng/mL (10.0-291.0)
[2020-04-29 21:12] LABS: Glucose,Whole Blood 137 mg/dL (75-99)
[2020-04-29] MEDS: ATORVASTATIN 80 MG TAB PO SCH (21:50)
[2020-04-29] MEDS: MELATONIN 5 MG TABLET PO SCH (21:50)
[2020-04-29] MEDS: INSULIN DETEMIR (LEVEMIR) 100 UNIT/ML SYR SQ SCH (21:51)
[2020-04-30] MEDS: MORPHINE SULFATE 4 MG/ML SYRINGE IV PRN ×3 (04:50→20:19)
[2020-04-30] MEDS: LEVOTHYROXINE 50 MCG TAB PO SCH (04:50)
[2020-04-30 07:02] LABS: Glucose,Whole Blood 236 mg/dL (75-99)
[2020-04-30] MEDS: carvediloL 6.25 MG TAB PO SCH ×2 (07:20→17:26)
[2020-04-30] MEDS: FOLIC ACID-VIT B COMPLEX-VIT C 1 CAP PO SCH (08:03)
[2020-04-30] MEDS: AMMONIUM LACTATE 12% LOTION 225 GM BTL TOPICAL SCH ×2 (08:03→20:22)
[2020-04-30] MEDS: ASPIRIN 81 MG PO SCH (08:03)
[2020-04-30] MEDS: DOCUSATE 100 MG CAP PO SCH ×2 (08:03→20:19)
[2020-04-30] MEDS: INSULIN ASPART (NovoLOG) 100 UNIT/ML VIAL SQ SCH ×4 (08:03→20:18)
[2020-04-30] MEDS: SODIUM POLYSTYRENE SULFONATE 15 GM/60 ML BOTTLE PO SCH (08:04)
[2020-04-30] MEDS: FUROSEMIDE 80 MG TAB PO SCH (08:04)
[2020-04-30] MEDS: ESCITALOPRAM 20 MG TAB PO SCH (08:04)
[2020-04-30] MEDS: CLOPIDOGREL 75 MG TAB PO SCH (08:04)
[2020-04-30] MEDS: PANTOPRAZOLE 40 MG/10 ML VIAL IVP SCH (08:04)
--- NOTE | 2020-04-30 09:48 | P.PN ---
Subjective Patient is seen in follow-up for end-stage renal disease. She is maintained on hemodialysis on Friday schedule. No chest pain or shortness of breath. Oral intake fair. Blood pressure on the lower side. No ultrafiltration was done yesterday. Vital signs are stable. General: The patient appeared well nourished and normally developed. HEENT: Head exam is unremarkable. Neck is without jugular venous distension. LUNGS: Breath sounds decreased. HEART: Rate and Rhythm are regular. ABDOMEN: Soft, nontender. EXTREMITITES: Trace edema. Chronic changes noted. Objective - Vital Signs Vital signs: Vital Signs Temp 97.7 F 04/30/20 05:00 Pulse 59 L 04/30/20 05:00 Resp 14 04/30/20 05:00 BP 95/55 04/30/20 05:00 Pulse Ox 98 04/30/20 05:00 Intake & Output 04/29/20 04/30/20 04/30/20 18:59 06:59 18:59 Output Total 500 Balance -500 Output: Hemodialysis 500 Other: Voiding Method Diaper Diaper Diaper # Voids 0 3 - Labs CBC & Chem 7: 04/29/20 07:19 04/28/20 17:23 Labs: Abnormal Lab Results - Last 24 Hours (Table) 04/28/20 04/29/20 04/29/20 Range/Units 17:23 06:28 11:27 PT 29.1 H (9.9-11.9) sec INR 2.86 H (0.90-1.11) POC Glucose (mg/dL) 292 H (75-99) mg/dL Iron 45 L (50-170) ug/dL TIBC 155 L (228-460) ug/dL Ferritin 2376.5 H (10.0-291.0) ng/mL 04/29/20 04/29/20 04/30/20 Range/Units 16:57 21:10 06:58 PT (9.9-11.9) sec INR (0.90-1.11) POC Glucose (mg/dL) 117 H 137 H 236 H (75-99) mg/dL Iron (50-170) ug/dL TIBC (228-460) ug/dL Ferritin (10.0-291.0) ng/mL Assessment and Plan Plan: Assessment: 1. End-stage renal disease maintained on hemodialysis on Friday schedule. 2. Left hip pain. No fracture noted. Pain better controlled. 3. Diabetes mellitus. 4. Hypertonic hyponatremia secondary to hyperglycemia. 5. Anemia of chronic kidney disease maintained on Aranesp. Iron replete. Plan: Hemodialysis tomorrow. Tight blood sugar control. Amlodipine stopped. Add scheduled midodrine 5 mg 3 times daily. To be held for systolic blood pressure greater than 110.
[2020-04-30 10:13] LABS: African American GFR (CKD) 12.4 (60.0-200.0); Albumin 3.1 g/dL (3.80-4.90); Albumin/Globulin Ratio 1.11 (1.60-3.17); Anion Gap 13.4 mmol/L (4.00-12.00); BUN/Creat Ratio 6.34 Ratio (12.00-20.00); Calcium 8.7 mg/dL (8.7-10.3); Carbon Dioxide 22.6 mmol/L (21.6-31.8); Globulin 2.8 g/dL (1.6-3.3); Non-African American GFR(CKD) 10.7 (60.0-200.0); Potassium 3.7 mmol/L (3.5-5.5); Total Bilirubin 0.7 mg/dL (0.2-1.2); Total Protein 5.9 g/dL (6.2-8.2)
--- NOTE | 2020-04-30 10:19 | P.PN ---
Subjective Progress Note Date: 04/30/20 This is a 64-year-old obese female patient of paty, Dr. JAE Jc, and Dr. Talley with multiple medical problem was known to have end-stage kidney disease on hemodialysis Friday, coronary artery disease and prior coronary artery stenting, diabetes type 2 insulin requiring, dyslipidemia, history of permanent pacemaker. Patient is a long-term resident at [facility] developed to have COVID-19 during an outbreak that affected [facility] on [facility] and she was sent to [facility] for evaluation and treatment and she eventually was sent back to [facility] on [facility], patient was just recently discharged from [facility] after she was admitted for metabolic enceph alopathy due to uremia and cardiac debility and had echocardiogram that showed LVF 30-35 % and she was sen by cardiology and no new recommendations were made , patient ended up going back to [facility] on the [place] few days ago, today while she was in route to hemodialysis she developed to have left sided chest pain radiating under her breast with pleurisy and the she was taken to the ER a [facility] instead her initial evaluation was negative but because of her cardiac history she was kept in for cardiac evaluation again and then she was discharged back to [facility], patient yesterday had sever left sided hip pain without history of any injury and she asked the nurse that she wanted to go to the Hospital after threatening of calling 911 her self from the facility, and she had refused to go to her dialysis due to the left sided hip pain and she was sent to the ER for evaluation, she was found to have anemia and she was admitted to the hospital for evaluation by GI. 04/30: Patient sitting up in bed in no apparent distress, she denies any chest pain, shortness breath, she continues to have some pain in the left, she underwent dialysis yesterday, she seems to be tolerating her treatment very w ell, we will check computed tomography scan of the left hip without contrast for further evaluation. Objective - Vital Signs Vital signs: Vital Signs Temp 97.7 F 04/30/20 05:00 Pulse 59 L 04/30/20 05:00 Resp 14 04/30/20 05:00 BP 95/55 04/30/20 05:00 Pulse Ox 98 04/30/20 05:00 Intake & Output 04/29/20 04/30/2021 18:59 06:59 18:59 Output Total 500 Balance -500 Output: Hemodialysis 500 Other: Voiding Method Diaper Diaper # Voids 0 3 - Exam Review of Systems Constitutional: Reports anorexia, Reports chronic pain, Reports fatigue, Reports malaise, Reports weakness, Reports weight loss Eyes: bilateral blurred vision, denies bulging eye, denies decreased vision Ears: deny: decreased hearing Ears, nose, mouth and throat: Denies dysphagia, Denies neck lump, Denies sore throat Cardiovascular: Reports decreased exercise tolerance, Reports dyspnea on exertion, Reports shortness of breath, Denies chest pain, Denies leg edema, Denies rapid heart beat, Denies syncope Respiratory: Denies congestion, Denies cough with sputum, Denies dyspnea, Denies home oxygen, Denies respiratory infections, Denies sleep apnea, Denies snoring, Denies wheezing Gastrointestinal: Reports loss of appetite, Denies abdominal pain, Denies bloating, Denies excessive gas, Denies heartburn, Denies melena, Denies nausea, Denies vomiting Genitourinary: Denies dysuria, Denies nocturia Menstruation: Reports postmenopausal Musculoskeletal: Reports frequent falls, Reports gait dysfunction, Reports loss of height, Reports morning stiffness, Reports neck stiffness, Reports shooting leg pain Musculoskeletal: left: hip pain, hip stiffness, bilateral: ankle swelling, absent: ankle pain, ankle stiffness, elbow pain, elbow stiffness, elbow swelling, foot pain, foot stiffness, foot swelling, hand pain, hand stiffness, hand swelling, hip swelling, knee pain, knee stiffness, knee swelling, shoulder pain, shoulder stiffness, shoulder swelling, wrist pain, wrist stiffness, wrist swelling Integumentary: Denies pruritus, Denies rash Neurological: Reports gait dysfunction, Reports memory loss, Reports sensory deficit, Reports weakness Psychiatric: Reports anxiety, Reports depression, Reports difficulty concentrating, Reports memory loss, Reports sadness/tearfulness, Reports sleep disturbances, Denies suicidal ideation Endocrine: Denies fatigue, Denies weight change Physical examination: General: 64-year-old female who is laying down in bed appears to be very weak does not appear to be in acute distress at this point in time. HEENT: Head is atraumatic, normocephalic, pupils were equal round reactive to light and recommendation, extraocular muscle movement were intact, sclera nonicteric, conjunctivae were pale, mucous membranes of the mouth are somewhat dry. Neck: Supple, no JVP, decreased carotid upstroke bilaterally, no lymphadenopathy . Chest: Decreased breath sounds at the bases, few rhonchi, no extremity wheezes, no chest wall tenderness, no intercostal retractions. Heart: First heart sound is depressed, second heart sounds normal, there is systolic ejection murmur 2/6 located in the left sternal border. Abdomen: Soft, nontender, nondistended, positive bowel sounds. Extremities: There is no edema no calf tenderness DP +1 bilaterally. Neurologic examination: Patient is awake alert and oriented 2, cranial nerves III-12 appear grossly intact, muscle power were 4 out of 5 in upper extremities and 3 out of 5 in bilateral lower extremities, deep tendon reflexes were depressed bilaterally, there is also neuropathic changes to both lower extremity with decreased sensation. - Labs CBC & Chem 7: 04/29/20 07:19 04/30/20 05:05 Labs: Abnormal Lab Results - Last 24 Hours (Table) 04/28/20 04/29/20 04/29/20 Range/Units 17:23 06:28 11:27 PT 29.1 H (9.9-11.9) sec INR 2.86 H (0.90-1.11) POC Glucose (mg/dL) 292 H (75-99) mg/dL Iron 45 L (50-170) ug/dL TIBC 155 L (228-460) ug/dL Ferritin 2376.5 H (10.0-291.0) ng/mL 04/29/20 04/29/20 04/30/20 Range/Units 16:57 21:10 06:58 PT (9.9-11.9) sec INR (0.90-1.11) POC Glucose (mg/dL) 117 H 137 H 236 H (75-99) mg/dL Iron (50-170) ug/dL TIBC (228-460) ug/dL Ferritin (10.0-291.0) ng/mL Assessment and Plan Assessment: Assessment and Plan Assessment: Assessment and Plan: 1. Anemia multifactorial likely related to chronic kidney disease however cannot rule out GI source, monitor the patient's CBC every 8 hours, GI consu ltation, start the patient on Protonix 40 mg IV push every 24 hours. 2. Recent NSTEMI. we will continue with ASA 81 mg orally daily, PLavix 75 mg orally daily and Lipitor 80 mg orally daily and add small dose of Coreg 3.125 mg orally bid, cardiology evaluation, we will check Echocardiogram for evaluation of her LVF and wall motion. 3. Recent COVID . recovered. 4. End-stage renal disease on hemodialysis Friday. Nephrology consult appreciated Continue Nephrocaps, PhosLo. 5. History of coronary artery disease with prior stenting of the LAD. We will continue the patient on aspirin 81 mg once every day, Plavix 75 mg orally once every day, Lipitor 80 mg once every day, added Coreg 3.125 mg orally bid. 6. Hyponatremia likely related to hypervolemia patient did miss her dialysis yesterday. She will go for another hemodialysis today. 7. Acute on chronic anemia due to chronic kidney disease and possible GI loss. 2 Protonix 40 mg IV push every 24 hours, GI consultation. 8. Hypertension and hypertensive cardiovascular disease. Continue amlodipine2.5 mg daily and add Coreg 3.125 mg orally bid. 9. Hyperlipidemia. Continue atorvastatin 80 mg at bedtime 10. Gastroesophageal reflux disease and GI prophylaxis. we will continue with Protonix 40 mg orally daily. 11. Diabetes mellitus type 2, insulin requiring. We will continue Levemir 18 units at bedtime along with the Humalog per sliding scale insulin. 12. Generalized anxiety disorder and recurrent depression. Continue Lexapro 20 mg orally once every day as well as Ativan 1 mg orally twice every day. 13. Hypothyroidism. Continue patient on levothyroxine 175 g orally once every day. 14. history of symptomatic Bradycardia and recently was diagnosed with atrial fibrillation post PPM amd currently fully anticoagulated. 15. DVT prophylaxis. we will contiue with coumadin INR is therapeutic. 16. GI prophylaxis. we will contiue with Protonix 40 mg 17. Me IV push daily.dical debility. Physical therapy evaluation. 18. 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
[2020-04-30 10:20] LABS: INR 3.1 (0.90-1.11); Prothrombin Time 31.4 sec (9.9-11.9)
[2020-04-30 11:14] LABS: Basophils # (A) 0.02 X 10*3/uL (0.00-0.10); Basophils % (A) 0.2 %; Eosinophils # (A) 0.38 X 10*3/uL (0.04-0.35); Eosinophils % (A) 4.2 %; HCT 23.8 % (37.2-46.3); HGB 7.1 g/dL (12.0-15.0); Lymphocytes # (A) 0.91 X 10*3/uL (0.90-5.00); Lymphocytes % (A) 10.1 %; MCH 30.3 pg (27.0-32.0); MCHC 29.8 g/dL (32.0-37.0); MCV 101.7 fL (80.0-97.0); Mean Platelet Volume 10.5 fL (9.5-12.2); Monocytes # (A) 0.66 X 10*3/uL (0.20-1.00); Monocytes % (A) 7.3 %; Neutrophils # (A) 6.97 X 10*3/uL (1.80-7.70); Neutrophils % (A) 77.8 %; Platelet Count 251 X 10*3/uL (140-440); RBC 2.34 X 10*6/uL (4.10-5.20); RDW 18.8 % (11.5-14.5); WBC 8.98 X 10*3/uL (4.50-10.00)
[2020-04-30 11:16] LABS: Glucose,Whole Blood 173 mg/dL (75-99)
--- NOTE | 2020-04-30 11:52 | CT ---
EXAMINATION TYPE: CT hip LT wo con DATE OF EXAM: 04/30/2020 COMPARISON: X-ray 04/28/2020 HISTORY: Pain wit decreased range of motion, unable to ambulate for 2-[address] DLP: 412.90 mGycm Automated exposure control for dose reduction was used. FINDINGS: Vascular calcifications are seen and there appears to be mild subcutaneous edema. There is significan t arthritic changes involving the hip with hypertrophic spurring. Hypertrophic change of the acetabul um could be associated with femoral acetabular impingement. Osseous structures are intact. No acute fracture. IMPRESSION: ARTHRITIC CHANGES WITH NO ACUTE FRACTURE OR DISLOCATION. CORRELATE FOR FEMORAL ACETABULAR IMPINGEMENT .
--- NOTE | 2020-04-30 12:18 | PN ---
PROGRESS NOTE DATE OF SERVICE: 04/30/2020 The patient is a 64-year-old pleasant white female with history of end-stage renal disease, on hemodialysis, admitted to the hospital because of left ( ) pain and was noted to have mild anemia with a hemoglobin of 7.5 g/dL. She denies any GI symptoms. No abdominal pain. No nausea, no vomiting. No rectal bleeding or melena. Yesterday she had iron studies done which revealed a ferritin of 2376, iron 45, TIBC 115, iron saturation of 29%. Repeat hemoglobin today 7.7 g/dL. PHYSICAL EXAMINATION: Appears comfortable, no apparent distress. VITAL SIGNS: Stable. Blood pressure 15/55, pulse rate 59, temperature 97.7. HEENT examination unremarkable. Conjunctivae pink. Sclerae anicteric. Oral cavity no lesions. NECK: No JVD or lymph node enlargement. CHEST was clear to auscultation. HEART: Regular rate and rhythm. ABDOMEN: Soft. Bowel sounds are positive. No organomegaly. Abdomen is obese. EXTREMITIES: Some pedal edema. NEUROLOGIC: Alert and oriented x3. No focal deficits. IMPRESSION: 1. Normocytic anemia, most likely related to chronic kidney disease. Iron studies did show no evidence of iron deficiency anemia. In fact, serum ferritin was 2300 and iron saturation was 29%. Stool Hemoccult was negative. 2. History of end-stage renal disease on hemodialysis on Friday, Friday, Friday. Dr. Souza following the patient closely. 3. History of hypertension and hyperlipidemia. 4. History of coronary artery disease. 5. Gastroesophageal reflux disease. 6. History of diabetes mellitus. RECOMMENDATIONS: In regards to the anemia, since there is no evidence of iron deficiency she does not need to have any GI workup done at the present time. Continue to monitor hemoglobin and transfuse as needed. We will sign off at this time. Please call us if needed. Thank you for this consultation. MMODL / IJN: [id number] /
[2020-04-30] MEDS: MIDODRINE 5 MG TAB PO SCH ×2 (12:31→17:42)
[2020-04-30 16:58] LABS: Glucose,Whole Blood 169 mg/dL (75-99)
[2020-04-30] MEDS ORDERED: WARFARIN 0.5 MG TAB PO ONE (18:00)
[2020-04-30 20:11] LABS: Glucose,Whole Blood 184 mg/dL (75-99)
[2020-04-30] MEDS: INSULIN DETEMIR (LEVEMIR) 100 UNIT/ML SYR SQ SCH (20:18)
[2020-04-30] MEDS: ATORVASTATIN 80 MG TAB PO SCH (20:19)
[2020-04-30] MEDS: MELATONIN 5 MG TABLET PO SCH (20:19)
[2020-05-01] MEDS: LEVOTHYROXINE 50 MCG TAB PO SCH (05:44)
[2020-05-01 07:16] LABS: Glucose,Whole Blood 82 mg/dL (75-99)
[2020-05-01 09:23] LABS: Basophils # (A) 0.04 X 10*3/uL (0.00-0.10); Basophils % (A) 0.6 %; Eosinophils # (A) 0.43 X 10*3/uL (0.04-0.35); Eosinophils % (A) 5.9 %; HCT 25.7 % (37.2-46.3); HGB 7.4 g/dL (12.0-15.0); Lymphocytes # (A) 1.12 X 10*3/uL (0.90-5.00); Lymphocytes % (A) 15.4 %; MCH 30.1 pg (27.0-32.0); MCHC 28.8 g/dL (32.0-37.0); MCV 104.5 fL (80.0-97.0); Mean Platelet Volume 10.4 fL (9.5-12.2); Monocytes # (A) 0.67 X 10*3/uL (0.20-1.00); Monocytes % (A) 9.2 %; Neutrophils # (A) 4.97 X 10*3/uL (1.80-7.70); Neutrophils % (A) 68.3 %; Platelet Count 231 X 10*3/uL (140-440); RBC 2.46 X 10*6/uL (4.10-5.20); RDW 19.4 % (11.5-14.5); WBC 7.27 X 10*3/uL (4.50-10.00)
[2020-05-01] MEDS: INSULIN ASPART (NovoLOG) 100 UNIT/ML VIAL SQ SCH ×4 (09:28→21:32)
[2020-05-01 09:52] LABS: African American GFR (CKD) 10.3 (60.0-200.0); Albumin 3.2 g/dL (3.80-4.90); Albumin/Globulin Ratio 1.14 (1.60-3.17); Anion Gap 12.7 mmol/L (4.00-12.00); BUN/Creat Ratio 6.46 Ratio (12.00-20.00); Calcium 8.8 mg/dL (8.7-10.3); Carbon Dioxide 22.3 mmol/L (21.6-31.8); Globulin 2.8 g/dL (1.6-3.3); Non-African American GFR(CKD) 8.9 (60.0-200.0); Potassium 3.8 mmol/L (3.5-5.5); Total Bilirubin 0.9 mg/dL (0.2-1.2)
[2020-05-01] MEDS: carvediloL 6.25 MG TAB PO SCH ×2 (09:52→17:14)
[2020-05-01] MEDS: DOCUSATE 100 MG CAP PO SCH ×2 (09:52→21:30)
[2020-05-01] MEDS: ESCITALOPRAM 20 MG TAB PO SCH (09:53)
[2020-05-01] MEDS: ASPIRIN 81 MG PO SCH (09:53)
[2020-05-01] MEDS: PANTOPRAZOLE 40 MG/10 ML VIAL IVP SCH (09:53)
[2020-05-01] MEDS: CLOPIDOGREL 75 MG TAB PO SCH (09:53)
[2020-05-01] MEDS: FUROSEMIDE 80 MG TAB PO SCH (09:53)
[2020-05-01] MEDS: AMMONIUM LACTATE 12% LOTION 225 GM BTL TOPICAL SCH ×2 (09:53→21:34)
[2020-05-01] MEDS: MIDODRINE 5 MG TAB PO SCH ×3 (09:53→17:14)
[2020-05-01 10:25] LABS: INR 3.47 (0.90-1.11); Prothrombin Time 34.9 sec (9.9-11.9)
--- NOTE | 2020-05-01 10:43 | P.PN ---
Subjective Patient is seen in follow-up for end-stage renal disease. She is maintained on hemodialysis on Friday schedule. No chest pain or shortness of breath. Oral intake fair. Blood pressure on the lower side. She is receiving midodrine. Scheduled for dialysis today. Vital signs are stable. General: The patient appeared well nourished and normally developed. HEENT: Head exam is unremarkable. Neck is without jugular venous distension. LUNGS: Breath sounds decreased. HEART: Rate and Rhythm are regular. ABDOMEN: Soft, nontender. EXTREMITITES: Trace edema. Chronic changes noted. Objective - Vital Signs Vital signs: Vital Signs Temp 98.2 F 05/01/20 04:37 Pulse 63 05/01/20 04:37 Resp 18 05/01/20 04:37 BP 98/48 05/01/20 04:37 Pulse Ox 94 L 05/01/20 04:37 Intake & Output 04/30/20 05/01/20 05/01/20 18:59 06:59 18:59 Intake Total 720 Balance 720 Intake: Oral 720 Other: Voiding Method Diaper Diaper # Voids 0 0 - Labs CBC & Chem 7: 05/01/20 05:45 05/01/20 05:45 Labs: Abnormal Lab Results - Last 24 Hours (Table) 04/30/20 04/30/20 04/30/20 Range/Units 05:05 11:11 16:52 RBC 2.34 L (4.10-5.20) X 10*6/uL Hgb 7.1 L (12.0-15.0) g/dL Hct 23.8 L (37.2-46.3) % MCV 101.7 H (80.0-97.0) fL MCHC 29.8 L (32.0-37.0) g/dL RDW 18.8 H (11.5-14.5) % Eosinophils # 0.38 H (0.04-0.35) X 10*3/uL PT (9.9-11.9) sec INR (0.90-1.11) Sodium (135-145) mmol/L Anion Gap (4.00-12.00) mmol/L BUN (9.0-27.0) mg/dL Creatinine (0.6-1.5) mg/dL Est GFR (CKD-EPI)AfAm (60.0-200.0) Est GFR (CKD-EPI)NonAf (60.0-200.0) BUN/Creatinine Ratio (12.00-20.00) Ratio POC Glucose (mg/dL) 173 H 169 H (75-99) mg/dL AST (13-35) U/L Total Protein (6.2-8.2) g/dL Albumin (3.80-4.90) g/dL Albumin/Globulin Ratio (1.60-3.17) g/dL 04/30/20 05/01/20 05/01/20 Range/Units 20:10 05:45 05:45 RBC 2.46 L (4.10-5.20) X 10*6/uL Hgb 7.4 L (12.0-15.0) g/dL Hct 25.7 L (37.2-46.3) % MCV 104.5 H (80.0-97.0) fL MCHC 28.8 L (32.0-37.0) g/dL RDW 19.4 H (11.5-14.5) % Eosinophils # 0.43 H (0.04-0.35) X 10*3/uL PT 34.9 H (9.9-11.9) sec INR 3.47 H (0.90-1.11) Sodium (135-145) mmol/L Anion Gap (4.00-12.00) mmol/L BUN (9.0-27.0) mg/dL Creatinine (0.6-1.5) mg/dL Est GFR (CKD-EPI)AfAm (60.0-200.0) Est GFR (CKD-EPI)NonAf (60.0-200.0) BUN/Creatinine Ratio (12.00-20.00) Ratio POC Glucose (mg/dL) 184 H (75-99) mg/dL AST (13-35) U/L Total Protein (6.2-8.2) g/dL Albumin (3.80-4.90) g/dL Albumin/Globulin Ratio (1.60-3.17) g/dL 05/01/20 Range/Units 05:45 RBC (4.10-5.20) X 10*6/uL Hgb (12.0-15.0) g/dL Hct (37.2-46.3) % MCV (80.0-97.0) fL MCHC (32.0-37.0) g/dL RDW (11.5-14.5) % Eosinophils # (0.04-0.35) X 10*3/uL PT (9.9-11.9) sec INR (0.90-1.11) Sodium 134 L (135-145) mmol/L Anion Gap 12.70 H (4.00-12.00) mmol/L BUN 31.0 H (9.0-27.0) mg/dL Creatinine 4.8 H (0.6-1.5) mg/dL Est GFR (CKD-EPI)AfAm 10.3 L (60.0-200.0) Est GFR (CKD-EPI)NonAf 8.9 L (60.0-200.0) BUN/Creatinine Ratio 6.46 L (12.00-20.00) Ratio POC Glucose (mg/dL) (75-99) mg/dL AST 58 H (13-35) U/L Total Protein 6.0 L (6.2-8.2) g/dL Albumin 3.20 L (3.80-4.90) g/dL Albumin/Globulin Ratio 1.14 L (1.60-3.17) g/dL Assessment and Plan Plan: Assessment: 1. End-stage renal disease maintained on hemodialysis on Friday ay schedule. 2. Left hip pain. No fracture noted. Pain better controlled. 3. Diabetes mellitus. 4. Hypertonic hyponatremia secondary to hyperglycemia. Also component of chronic kidney disease. 5. Anemia of chronic kidney disease maintained on Aranesp. Iron replete. Plan: Hemodialysis today. Tight blood sugar control. Maintain midodrine with parameters.
[2020-05-01 11:56] LABS: Glucose,Whole Blood 128 mg/dL (75-99)
[2020-05-01] MEDS ORDERED: HYDROcodone/APAP 10-325MG 1 EACH TAB PO PRN (13:16)
[2020-05-01] MEDS: LIDOCAINE-PRILOCAINE 2.5-2.5% CREAM 5 GM TUBE TOPICAL SCH (13:40)
[2020-05-01 17:35] LABS: Glucose,Whole Blood 142 mg/dL (75-99)
[2020-05-01] MEDS ORDERED: WARFARIN 0.5 MG TAB PO ONE (18:00)
[2020-05-01 20:32] LABS: Glucose,Whole Blood 127 mg/dL (75-99)
[2020-05-01] MEDS ORDERED: FOLIC ACID-VIT B COMPLEX-VIT C 1 CAP PO SCH (21:00)
[2020-05-01] MEDS: ATORVASTATIN 80 MG TAB PO SCH (21:30)
[2020-05-01] MEDS: INSULIN DETEMIR (LEVEMIR) 100 UNIT/ML SYR SQ SCH (21:30)
[2020-05-01] MEDS: MELATONIN 5 MG TABLET PO SCH (21:30)
[2020-05-01] MEDS: MORPHINE SULFATE 4 MG/ML SYRINGE IV PRN (21:31)
[2020-05-02] MEDS: LEVOTHYROXINE 50 MCG TAB PO SCH (05:48)
[2020-05-02 07:28] LABS: Glucose,Whole Blood 107 mg/dL (75-99)
[2020-05-02] MEDS: INSULIN ASPART (NovoLOG) 100 UNIT/ML VIAL SQ SCH ×4 (07:32→22:05)
[2020-05-02 07:54] LABS: INR 3.1 (<1.2); Prothrombin Time 29.8 sec (9.0-12.0)
[2020-05-02] MEDS: carvediloL 6.25 MG TAB PO SCH ×2 (08:06→18:26)
[2020-05-02] MEDS: CLOPIDOGREL 75 MG TAB PO SCH (08:06)
[2020-05-02] MEDS: ASPIRIN 81 MG PO SCH (08:06)
[2020-05-02] MEDS: DOCUSATE 100 MG CAP PO SCH ×2 (08:06→22:05)
[2020-05-02] MEDS: PANTOPRAZOLE 40 MG/10 ML VIAL IVP SCH ×2 (08:07→08:11)
[2020-05-02] MEDS: ESCITALOPRAM 20 MG TAB PO SCH (08:09)
[2020-05-02] MEDS: FOLIC ACID-VIT B COMPLEX-VIT C 1 CAP PO SCH (08:09)
[2020-05-02] MEDS: FUROSEMIDE 80 MG TAB PO SCH (08:09)
[2020-05-02] MEDS: SODIUM POLYSTYRENE SULFONATE 15 GM/60 ML BOTTLE PO SCH (08:10)
[2020-05-02] MEDS: AMMONIUM LACTATE 12% LOTION 225 GM BTL TOPICAL SCH ×2 (08:12→22:07)
[2020-05-02] MEDS: MIDODRINE 5 MG TAB PO SCH ×3 (08:13→17:44)
--- NOTE | 2020-05-02 12:09 | P.PN ---
Subjective Patient is seen in follow-up for end-stage renal disease. She is maintained on hemodialysis on Friday schedule. No chest pain or shortness of breath. Oral intake fair. Blood pressure stable. She is receiving midodrine. No problems with dialysis yesterday. Vital signs are stable. General: The patient appeared well nourished and normally developed. HEENT: Head exam is unremarkable. Neck is without jugular venous distension. LUNGS: Breath sounds decreased. HEART: Rate and Rhythm are regular. ABDOMEN: Soft, nontender. EXTREMITITES: Trace edema. Chronic changes noted. Objective - Vital Signs Vital signs: Vital Signs Temp 97.7 F 05/02/20 05:00 Pulse 82 05/02/20 05:00 Resp 16 05/02/20 05:00 BP 103/47 05/02/20 05:00 Pulse Ox 94 L 05/02/20 05:00 Intake & Output 05/01/20 05/02/20 05/02/20 18:59 06:59 18:59 Intake Total 1100 590 Balance 1100 590 Intake: Oral 1100 590 Other: Voiding Method Diaper Diaper Diaper # Voids 1 0 - Labs CBC & Chem 7: 05/01/20 05:45 05/01/20 05:45 Labs: Abnormal Lab Results - Last 24 Hours (Table) 05/01/20 05/01/20 05/02/20 Range/Units 17:34 20:30 06:27 PT 29.8 H (9.0-12.0) sec INR 3.1 H (<1.2) POC Glucose (mg/dL) 142 H 127 H (75-99) mg/dL 05/02/20 Range/Units 07:25 PT (9.0-12.0) sec INR (<1.2) POC Glucose (mg/dL) 107 H (75-99) mg/dL Assessment and Plan Plan: Assessment: 1. End-stage renal disease maintained on hemodialysis on Friday schedule. 2. Left hip pain. No fracture noted. Pain better controlled. 3. Diabetes mellitus. 4. Hypertonic hyponatremia secondary to hyperglycemia. Also component of chronic kidney disease. 5. Anemia of chronic kidney disease maintained on Aranesp. Iron replete. Plan: Hemodialysis tomorrow. Tight blood sugar control. Maintain midodrine with parameters.
[2020-05-02 12:18] LABS: Glucose,Whole Blood 118 mg/dL (75-99)
[2020-05-02] MEDS ORDERED: SODIUM FERRIC GLUCONAT-SUCROSE 125 MG in SODIUM CHLORIDE 0.9% 100 ML IVPB ONE (16:00)
--- NOTE | 2020-05-02 17:05 | P.PN ---
Subjective Progress Note Date: 05/01/20 This is a 64-year-old obese female patient of paty, Dr. JAE Jc, and Dr. Talley with multiple medical problem was known to have end-stage kidney disease on hemodialysis Friday, coronary artery disease and prior coronary artery stenting, diabetes type 2 insulin requiring, dyslipidemia, history of permanent pacemaker. Patient is a long-term resident at [facility] developed to have COVID-19 during an outbreak that affected [facility] on [facility] and she was sent to [facility] for evaluation and treatment and she eventually was sent back to [facility] on [facility], patient was just recently discharged from [facility] after she was admitted for metabolic encepha lopathy due to uremia and cardiac debility and had echocardiogram that showed LVF 30-35 % and she was sen by cardiology and no new recommendations were made , patient ended up going back to [facility] on the [place] few days ago, today while she was in route to hemodialysis she developed to have left sided chest pain radiating under her breast with pleurisy and the she was taken to the ER a [facility] instead her initial evaluation was negative but because of her cardiac history she was kept in for cardiac evaluation again and then she was discharged back to [facility], patient yesterday had sever left sided hip pain without history of any injury and she asked the nurse that she wanted to go to the Hospital after threatening of calling 911 her self from the facility, and she had refused to go to her dialysis due to the left sided hip pain and she was sent to the ER for evaluation, she was found to have anemia and she was admitted to the hospital for evaluation by GI. 04/30: Patient sitting up in bed in no apparent distress, she denies any chest pain, shortness breath, she continues to have some pain in the left, she underwent dialysis yesterday, she seems to be tolerating her treatment very we ll, we will check computed tomography scan of the left hip without contrast for further evaluation. 05/01: Patient continues to complain of left hip pain. CT of the hip revealed no acute findings, possible impingement. Consult will be added for orthopedics to evaluate. [place] increased frequency to help with pain control. She has been afebrile, HR 60, BP 114/99, PO 97% on RA. WBC 7.4, HGB 7.4, INR 3.4, Potassium 3.8, BUN 31, Cr 4.8. Objective - Vital Signs Vital signs: Vital Signs Temp 97.9 F 05/01/20 12:08 Pulse 60 05/01/20 12:08 Resp 17 05/01/20 12:08 BP 114/49 05/01/20 12:08 Pulse Ox 97 05/01/20 12:08 Intake & Output 04/30/20 05/01/20 05/01/20 18:59 06:59 18:59 Intake Total 720 Balance 720 Intake: Oral 720 Other: Voiding Method Diaper Diaper # Voids 0 0 0 - Exam Review of Systems Constitutional: Reports anorexia, Reports chronic pain, Reports fatigue, Reports malaise, Reports weakness, Reports weight loss Eyes: bilateral blurred vision, denies bulging eye, denies decreased vision Ears: deny: decreased hearing Ears, nose, mouth and throat: Denies dysphagia, Denies neck lump, Denies sore throat Cardiovascular: Reports decreased exercise tolerance, Reports dyspnea on exertio n, Reports shortness of breath, Denies chest pain, Denies leg edema, Denies rapid heart beat, Denies syncope Respiratory: Denies congestion, Denies cough with sputum, Denies dyspnea, Denies home oxygen, Denies respiratory infections, Denies sleep apnea, Denies snoring, Denies wheezing Gastrointestinal: Reports loss of appetite, Denies abdominal pain, Denies bloating, Denies excessive gas, Denies heartburn, Denies melena, Denies nausea, Denies vomiting Genitourinary: Denies dysuria, Denies nocturia Menstruation: Reports postmenopausal Musculoskeletal: Reports frequent falls, Reports gait dysfunction, Reports loss of height, Reports morning stiffness, Reports neck stiffness, Reports shooting leg pain Musculoskeletal: left: hip pain, hip stiffness, bilateral: ankle swelling, absent: ankle pain, ankle stiffness, elbow pain, elbow stiffness, elbow swelling, foot pain, foot stiffness, foot swelling, hand pain, hand stiffness, hand swelling, hip swelling, knee pain, knee stiffness, knee swelling, shoulder pain, shoulder stiffness, shoulder swelling, wrist pain, wrist stiffness, wrist swelling Integumentary: Denies pruritus, Denies rash Neurological: Reports gait dysfunction, Reports memory loss, Reports sensory deficit, Reports weakness Psychiatric: Reports anxiety, Reports depression, Reports difficulty concentrating, Reports memory loss, Reports sadness/tearfulness, Reports sleep disturbances, Denies suicidal ideation Endocrine: Denies fatigue, Denies weight change Physical examination: General: 64-year-old female who is laying down in bed appears to be very weak does not appear to be in acute distress at this point in time. HEENT: Head is atraumatic, normocephalic, pupils were equal round reactive to light and recommendation, extraocular muscle movement were intact, sclera nonicteric, conjunctivae were pale, mucous membranes of the mouth are somewhat dry. Neck: Supple, no JVP, decreased carotid upstroke bilaterally, no lymphadenopathy. Chest: Decreased breath sounds at the bases, few rhonchi, no extremity wheezes, no chest wall tenderness, no intercostal retractions. Heart: First heart sound is depressed, second heart sounds normal, there is systolic ejection murmur 2/6 located in the left sternal border. Abdomen: Soft, nontender, nondistended, positive bowel sounds. Extremities: There is no edema no calf tenderness DP +1 bilaterally. Neurologic examination: Patient is awake alert and oriented 2, cranial nerves III-12 appear grossly intact, muscle power were 4 out of 5 in upper extremities and 3 out of 5 in bilateral lower extremities, deep tendon reflexes were depressed bilaterally, there is also neuropathic changes to both lower extremity with decreased sensation. - Labs CBC & Chem 7: 05/01/20 05:45 05/01/20 05:45 Labs: Abnormal Lab Results - Last 24 Hours (Table) 04/30/20 04/30/20 05/01/20 Range/Units 16:52 20:10 05:45 RBC (4.10-5.20) X 10*6/uL Hgb (12.0-15.0) g/dL Hct (37.2-46.3) % MCV (80.0-97.0) fL MCHC (32.0-37.0) g/dL RDW (11.5-14.5) % Eosinophils # (0.04-0.35) X 10*3/uL PT 34.9 H (9.9-11.9) sec INR 3.47 H (0.90-1.11) Sodium (135-145) mmol/L Anion Gap (4.00-12.00) mmol/L BUN (9.0-27.0) mg/dL Creatinine (0.6-1.5) mg/dL Est GFR (CKD-EPI)AfAm (60.0-200.0) Est GFR (CKD-EPI)NonAf (60.0-200.0) BUN/Creatinine Ratio (12.00-20.00) Ratio POC Glucose (mg/dL) 169 H 184 H (75-99) mg/dL AST (13-35) U/L Total Protein (6.2-8.2) g/dL Albumin (3.80-4.90) g/dL Albumin/Globulin Ratio (1.60-3.17) g/dL 05/01/20 05/01/20 05/01/20 Range/Units 05:45 05:45 11:55 RBC 2.46 L (4.10-5.20) X 10*6/uL Hgb 7.4 L (12.0-15.0) g/dL Hct 25.7 L (37.2-46.3) % MCV 104.5 H (80.0-97.0) fL MCHC 28.8 L (32.0-37.0) g/dL RDW 19.4 H (11.5-14.5) % Eosinophils # 0.43 H (0.04-0.35) X 10*3/uL PT (9.9-11.9) sec INR (0.90-1.11) Sodium 134 L (135-145) mmol/L Anion Gap 12.70 H (4.00-12.00) mmol/L BUN 31.0 H (9.0-27.0) mg/dL Creatinine 4.8 H (0.6-1.5) mg/dL Est GFR (CKD-EPI)AfAm 10.3 L (60.0-200.0) Est GFR (CKD-EPI)NonAf 8.9 L (60.0-200.0) BUN/Creatinine Ratio 6.46 L (12.00-20.00) Ratio POC Glucose (mg/dL) 128 H (75-99) mg/dL AST 58 H (13-35) U/L Total Protein 6.0 L (6.2-8.2) g/dL Albumin 3.20 L (3.80-4.90) g/dL Albumin/Globulin Ratio 1.14 L (1.60-3.17) g/dL Assessment and Plan Plan: 1. Anemia multifactorial likely related to chronic kidney disease however cannot rule out GI source, monitor the patient's CBC every 8 hours, GI consultation, start the patient on Protonix 40 mg IV push every 24 hours. 2. Recent NSTEMI. we will continue with ASA 81 mg orally daily, PLavix 75 mg orally daily and Lipitor 80 mg orally daily and add small dose of Coreg 3.125 mg orally bid, cardiology evaluation, we will check Echocardiogram for evaluation of her LVF and wall motion. 3. Recent COVID . recovered. 4. End-stage renal disease on hemodialysis Friday. Nephrology consult appreciated Continue Nephrocaps, Amandeep. 5. History of coronary artery disease with prior stenting of the LAD. We will continue the patient on aspirin 81 mg once every day, Plavix 75 mg orally once every day, Lipitor 80 mg once every day, added Coreg 3.125 mg orally bid. 6. Hyponatremia likely related to hypervolemia patient did miss her dialysis yesterday. She will go for another hemodialysis today. 7. Acute on chronic anemia due to chronic kidney disease and possible GI loss. 2 Protonix 40 mg IV push every 24 hours, GI consultation. 8. Hypertension and hypertensive cardiovascular disease. Continue amlodipine2.5 mg daily and add Coreg 3.125 mg orally bid. 9. Hyperlipidemia. Continue atorvastatin 80 mg at bedtime 10. Gastroesophageal reflux disease and GI prophylaxis. we will continue with Protonix 40 mg orally daily. 11. Diabetes mellitus type 2, insulin requiring. We will continue Levemir 18 units at bedtime along with the Humalog per sliding scale insulin. 12. Generalized anxiety disorder and recurrent depression. Continue Lexapro 20 mg orally once every day as well as Ativan 1 mg orally twice every day. 13. Hypothyroidism. Continue patient on levothyroxine 175 g orally once every day. 14. history of symptomatic Bradycardia and recently was diagnosed with atrial fibrillation post PPM amd currently fully anticoagulated. 15. DVT prophylaxis. we will contiue with coumadin INR is therapeutic. 16. GI prophylaxis. we will contiue with Protonix 40 mg 17. Medical debility. Physical therapy evaluation. 18. Left hip pain. Increase frequency of [place], add orthopedic consult. home support worker consultation for discharge planning to [facility] on Friday. Impression and plan of care have been directed as dictated by the signing physician. Emely Contreras nurse practitioner acting as scribe for signing physician.
--- NOTE | 2020-05-02 17:10 | P.PN ---
Subjective Progress Note Date: 05/02/20 This is a 64-year-old obese female patient of paty, Dr. JAE Jc, and Dr. Talley with multiple medical problem was known to have end-stage kidney disease on hemodialysis Friday, coronary artery disease and prior coronary artery stenting, diabetes type 2 insulin requiring, dyslipidemia, history of permanent pacemaker. Patient is a long-term resident at [facility] developed to have COVID-19 during an outbreak that affected [facility] on [facility] and she was sent to [facility] for evaluation and treatment and she eventually was sent back to [facility] on [facility], patient was just recently discharged from [facility] after she was admitted for metabolic encepha lopathy due to uremia and cardiac debility and had echocardiogram that showed LVF 30-35 % and she was sen by cardiology and no new recommendations were made , patient ended up going back to [facility] on the [place] few days ago, today while she was in route to hemodialysis she developed to have left sided chest pain radiating under her breast with pleurisy and the she was taken to the ER a [facility] instead her initial evaluation was negative but because of her cardiac history she was kept in for cardiac evaluation again and then she was discharged back to [facility], patient yesterday had sever left sided hip pain without history of any injury and she asked the nurse that she wanted to go to the Hospital after threatening of calling 911 her self from the facility, and she had refused to go to her dialysis due to the left sided hip pain and she was sent to the ER for evaluation, she was found to have anemia and she was admitted to the hospital for evaluation by GI. 04/30: Patient sitting up in bed in no apparent distress, she denies any chest pain, shortness breath, she continues to have some pain in the left, she underwent dialysis yesterday, she seems to be tolerating her treatment very we ll, we will check computed tomography scan of the left hip without contrast for further evaluation. 05/01: Patient continues to complain of left hip pain. CT of the hip revealed no acute findings, possible impingement. Consult will be added for orthopedics to evaluate. [place] increased frequency to help with pain control. She has been afebrile, HR 60, BP 114/99, PO 97% on RA. WBC 7.4, HGB 7.4, INR 3.4, Potassium 3.8, BUN 31, Cr 4.8. 05/02: Consult with orthopedics added today to Dr. Boyer regarding hip pain. She is followed by nephrology and is on her regularly scheduled HD which will be tomorrow. INR 3.1, pharmacy is dosing Coumadin. Blood sugars running 107-142. She has been afebrile, HR 63, BP 112/68, PO 94% on RA. One dose of Ferrilicet ordered for today. Repeat blood work ordered for the morning. Anticipate discharge back to [facility] tomorrow. Liason updated. Objective - Vital Signs Vital signs: Vital Signs Temp 97.8 F 05/02/20 12:14 Pulse 63 05/02/20 12:14 Resp 16 05/02/20 12:14 BP 112/48 05/02/20 12:14 Pulse Ox 94 L 05/02/20 12:14 Intake & Output 05/01/20 05/02/20 05/02/20 18:59 06:59 18:59 Intake Total 1100 590 Balance 1100 590 Intake: Oral 1100 590 Other: Voiding Method Diaper Diaper Diaper # Voids 1 0 - Exam Review of Systems Constitutional: Reports anorexia, Reports chronic pain, Reports fatigue, Reports malaise, Reports weakness, Reports weight loss Eyes: bilateral blurred vision, denies bulging eye, denies decreased vision Ears: deny: decreased hearing Ears, nose, mouth and throat: Denies dysphagia, Denies neck lump, Denies sore throat Cardiovascular: Reports decreased exercise tolerance, Reports dyspnea on exertion, Reports shortness of breath, Denies chest pain, Denies leg edema, Denies rapid heart beat, Denies syncope Respiratory: Denies congestion, Denies cough with sputum, Denies dyspnea, Denies home oxygen, Denies respiratory infections, Denies sleep apnea, Denies snoring, Denies wheezing Gastrointestinal: Reports loss of appetite, Denies abdominal pain, Denies bloating, Denies excessive gas, Denies heartburn, Denies melena, Denies nausea, Denies vomiting Genitourinary: Denies dysuria, Denies nocturia Menstruation: Reports postmenopausal Musculoskeletal: Reports frequent falls, Reports gait dysfunction, Reports loss of height, Reports morning stiffness, Reports neck stiffness, Reports shooting leg pain Musculoskeletal: left: hip pain, hip stiffness, bilateral: ankle swelling, absent: ankle pain, ankle stiffness, elbow pain, elbow stiffness, elbow swelling, foot pain, foot stiffness, foot swelling, hand pain, hand stiffness, hand swelling, hip swelling, knee pain, knee stiffness, knee swelling, shoulder pain, shoulder stiffness, shoulder swelling, wrist pain, wrist stiffness, wrist swelling Integumentary: Denies pruritus, Denies rash Neurological: Reports gait dysfunction, Reports memory loss, Reports sensory deficit, Reports weakness Psychiatric: Reports anxiety, Reports depression, Reports difficulty concentrating, Reports memory loss, Reports sadness/tearfulness, Reports sleep disturbances, Denies suicidal ideation Endocrine: Denies fatigue, Denies weight change Physical examination: General: 64-year-old female who is laying down in bed appears to be very weak does not appear to be in acute distress at this point in time. HEENT: Head is atraumatic, normocephalic, pupils were equal round reactive to light and recommendation, extraocular muscle movement were intact, sclera nonicteric, conjunctivae were pale, mucous membranes of the mouth are somewhat dry. Neck: Supple, no JVP, decreased carotid upstroke bilaterally, no lymphadenopathy. Chest: Decreased breath sounds at the bases, few rhonchi, no extremity wheezes, no chest wall tenderness, no intercostal retractions. Heart: First heart sound is depressed, second heart sounds normal, there is systolic ejection murmur 2/6 located in the left sternal border. Abdomen: Soft, nontender, nondistended, positive bowel sounds. Extremities: There is no edema no calf tenderness DP +1 bilaterally. Neurologic examination: Patient is awake alert and oriented 2, cranial nerves III-12 appear grossly intact, muscle power were 4 out of 5 in upper extremities and 3 out of 5 in bilateral lower extremities, deep tendon reflexes were depressed bilaterally, there is also neuropathic changes to both lower extremity with decreased sensation. - Labs CBC & Chem 7: 05/01/20 05:45 05/01/20 05:45 Labs: Abnormal Lab Results - Last 24 Hours (Table) 05/01/20 05/01/20 05/02/20 Range/Units 17:34 20:30 06:27 PT 29.8 H (9.0-12.0) sec INR 3.1 H (<1.2) POC Glucose (mg/dL) 142 H 127 H (75-99) mg/dL 05/02/20 05/02/20 Range/Units 07:25 12:17 PT (9.0-12.0) sec INR (<1.2) POC Glucose (mg/dL) 107 H 118 H (75-99) mg/dL Assessment and Plan Plan: 1. Anemia multifactorial likely related to chronic kidney disease however cannot rule out GI source, monitor the patient's CBC every 8 hours, GI consultation, start the patient on Protonix 40 mg IV push every 24 hours. Iron infusion x1 today. 2. Recent NSTEMI. we will continue with ASA 81 mg orally daily, PLavix 75 mg orally daily and Lipitor 80 mg orally daily and add small dose of Coreg 3.125 mg orally bid, cardiology evaluation, we will check Echocardiogram for evaluation of her LVF and wall motion. 3. Recent COVID . recovered. 4. End-stage renal disease on hemodialysis Friday. Nephrology consult appreciated Continue Nephrocaps, PhosLo. 5. History of coronary artery disease with prior stenting of the LAD. We will continue the patient on aspirin 81 mg once every day, Plavix 75 mg orally once every day, Lipitor 80 mg once every day, added Coreg 3.125 mg orally bid. 6. Hyponatremia likely related to hypervolemia patient did miss her dialysis yesterday. She will go for another hemodialysis today. 7. Acute on chronic anemia due to chronic kidney disease and possible GI loss. 2 Protonix 40 mg IV push every 24 hours, GI consultation. 8. Hypertension and hypertensive cardiovascular disease. Continue amlodipine2.5 mg daily and add Coreg 3.125 mg orally bid. 9. Hyperlipidemia. Continue atorvastatin 80 mg at bedtime 10. Gastroesophageal reflux disease and GI prophylaxis. we will continue with Protonix 40 mg orally daily. 11. Diabetes mellitus type 2, insulin requiring. We will continue Levemir 18 units at bedtime along with the Humalog per sliding scale insulin. 12. Generalized anxiety disorder and recurrent depression. Continue Lexapro 20 mg orally once every day as well as Ativan 1 mg orally twice every day. 13. Hypothyroidism. Continue patient on levothyroxine 175 g orally once every day. 14. history of symptomatic Bradycardia and recently was diagnosed with atrial fibrillation post PPM amd currently fully anticoagulated. 15. DVT prophylaxis. we will contiue with coumadin INR is therapeutic. 16. GI prophylaxis. we will contiue with Protonix 40 mg 17. Medical debility. Physical therapy evaluation. 18. Left hip pain. Increase frequency of [place], add orthopedic consult. new car make ready worker consultation for discharge planning to [facility] on Friday. Impression and plan of care have been directed as dictated by the signing physician. Emely Contreras nurse practitioner acting as scribe for signing physi khadijah.
[2020-05-02 17:17] LABS: Glucose,Whole Blood 158 mg/dL (75-99)
[2020-05-02] MEDS ORDERED: WARFARIN 1 MG TAB PO ONE (18:00)
[2020-05-02] MEDS: carvediloL 3.125 MG TAB PO SCH (18:07)
[2020-05-02 20:32] LABS: Glucose,Whole Blood 208 mg/dL (75-99)
[2020-05-02] MEDS: ATORVASTATIN 80 MG TAB PO SCH (22:05)
[2020-05-02] MEDS: INSULIN DETEMIR (LEVEMIR) 100 UNIT/ML SYR SQ SCH (22:05)
[2020-05-02] MEDS: MELATONIN 5 MG TABLET PO SCH (22:05)
[2020-05-03] MEDS: LEVOTHYROXINE 50 MCG TAB PO SCH (05:34)
[2020-05-03 07:16] LABS: Glucose,Whole Blood 100 mg/dL (75-99)
[2020-05-03] MEDS ORDERED: PANTOPRAZOLE 40 MG TABLET PO SCH (07:30)
[2020-05-03] MEDS: INSULIN ASPART (NovoLOG) 100 UNIT/ML VIAL SQ SCH ×3 (07:53→17:20)
[2020-05-03] MEDS ORDERED: LACTULOSE 20 GM/30 ML CUP PO ONE (08:39)
--- NOTE | 2020-05-03 08:41 | P.DS ---
Providers Date of admission: 05/02/20 10:37 Expected date of discharge: 05/03/20 Attending physician: Kimberli Gar Consults: 04/28/20 19:58 Consult Physician Routine Consulting Provider: Tate Souza Consult Reason/Comments: missed HD Do you want consulting provider notified?: Yes 05/02/20 07:39 Consult Physician Routine Consulting Provider: Tarun Boyer Consult Reason/Comments: left hip pain Do you want consulting provider notified?: Already Contacted Primary care physician: Kimberli Gar Hospital Course: This is a 64-year-old obese female patient of the [facility], Dr. JAE Jc, and Dr. Talley with multiple medical problem was known to have end-stage kidney disease on hemodialysis Friday, coronary artery disease and prior coronary artery stenting, diabetes type 2 insulin requiring, dyslipidemia, history of permanent pacemaker. Patient is a long-term resident at [facility] developed to have COVID-19 during an outbreak that affected [facility] on [facility] and she was sent to [facility] for evaluation and treatment and she eventually was sent back to [facility] on [facility], patient was just recently discharged from [facility] after she was admitted for metabolic encephalopathy due to uremia and cardiac debility and had echocardiogram that showed LVF 30-35 % and she was sen by cardiology and no new recommendations were made , patient ended up going back to [facility] few days ago, today while she was in route to hemodialysis she developed to have left sided chest pain radiating under her breast with pleurisy and the she was taken to the ER a [facility] instead her initial evaluation was negative but because of her cardiac history she was kept in for cardiac evaluation again and then she was discharged back to [facility], patient yesterday had sever left sided hip pain without history of any injury and she asked the nurse that she wanted to go to the Hospital after threatening of calling 911 her self from the facility, and she had refused to go to her dialysis due to the left sided hip pain and she was sent to the ER for evaluation, she was found to have anemia and she was admitted to the hospital for evaluation by GI. 04/30: Patient sitting up in bed in no apparent distress, she denies any chest pain, shortness breath, she continues to have some pain in the left, she underwent dialysis yesterday, she seems to be tolerating her treatment very well, we will check computed tomography scan of the left hip without contrast for further evaluation. 05/01: Patient continues to complain of left hip pain. CT of the hip revealed no acute findings, possible impingement. Consult will be added for orthopedics to evaluate. Kensal increased frequency to help with pain control. She has been afebrile, HR 60, BP 114/99, PO 97% on RA. WBC 7.4, HGB 7.4, INR 3.4, Potassium 3.8, BUN 31, Cr 4.8. 05/02: Consult with orthopedics added today to Dr. Boyer regarding hip pain. She is followed by nephrology and is on her regularly scheduled HD which will be tomorrow. INR 3.1, pharmacy is dosing Coumadin. Blood sugars running 107-142. She has been afebrile, HR 63, BP 112/68, PO 94% on RA. One dose of Ferrilicet or dered for today. Repeat blood work ordered for the morning. Anticipate discharge back to [facility] tomorrow. Liason updated. 05/03: Patient is scheduled for hemodialysis later today with planned that she will return to [facility] today. She has maintained on her Friday scheduled for hemodialysis. She continues to complain of left hip pain. She has been seen by orthopedics with recommendations for pain control and physical therapy. No surgical intervention. Patient may follow-up as an outpatient as needed. Patient is afebrile, heart rate 75, blood pressure 125/73, pulse ox 98% on room air. Repeat blood work reveals WBC 7.7, hemoglobin 7.8. INR is 1.73. Sodium 133 otherwise electrolytes normal. BUN 29 creatinine 4.8. Blood sugars are running between 102 108. Patient will be discharged back to [facility] today once hemodialysis is completed. Discharge diagnoses: 1. Anemia multifactorial likely related to chronic kidney disease however canno t rule out GI source. 2. Recent NSTEMI. 3. Recent COVID. recovered. 4. End-stage renal disease on hemodialysis Friday. 5. History of coronary artery disease with prior stenting of the LAD. 6. Hyponatremia likely related to hypervolemia patient did miss her dialysis yesterday. 7. Acute on chronic anemia due to chronic kidney disease and possible GI loss. 8. Hypertension and hypertensive cardiovascular disease. 9. Hyperlipidemia. 10. Gastroesophageal reflux disease. 11. Diabetes mellitus type 2, insulin requiring. 12. Generalized anxiety disorder and recurrent depression. 13. Hypothyroidism. 14. History of symptomatic Bradycardia and recently was diagnosed with atrial fibrillation post PPM amd currently fully anticoagulated. 15. Left hip pain secondary to osteoarthritis. Charge plan: Return to [facility]. Impression and plan of care have been directed as dictated by the signing physician. Emely Contreras nurse practitioner acting as scribe for signing physician. Patient Condition at Discharge: Good Plan - Discharge Summary Discharge Rx Participant: No New Discharge Prescriptions: New Midodrine [ProAmatine] 5 mg PO BID PRN tab PRN Reason: Hypotension Pantoprazole [Protonix] 40 mg PO AC-BRKFST tablet.dr Continue Atorvastatin [Lipitor] 80 mg PO HS Acetaminophen Tab [Tylenol] 500 mg PO Q6H PRN PRN Reason: Pain Docusate Sodium [Dok] 100 mg PO BID Folic Acid-Vit B Complex-Vit C [Nephrocaps] 1 cap PO MOWEFR@2100 Folic Acid-Vit B Complex-Vit C [Nephrocaps] 1 cap PO SUTUTHSA@0900 Escitalopram [Lexapro] 20 mg PO DAILY Clopidogrel [Plavix] 75 mg PO DAILY Levothyroxine Sodium [Synthroid] 175 mcg PO DAILY Sodium Polystyrene Sulfonate 15 gm PO SUTUTH Lidocaine-Prilocaine Cream [Emla Cream 2.5%/2.5%] 1 applic TOPICAL MOWEFR Furosemide [Lasix] 80 mg PO DAILY Aspirin 81 mg PO DAILY Sennosides [Senna] 8.6 mg PO DAILY PRN PRN Reason: Constipation Insulin Detemir (Levemir) [Levemir] 18 unit SQ HS syr Warfarin Sodium 4 mg PO DAILY@1700 carvediloL [Coreg] 3.125 mg PO BID Insulin Lispro [humaLOG Kwikpen] 2 unit SQ HS Insulin Lispro [humaLOG Kwikpen] See Protocol SQ ACHS Ammonium Lactate Lotion [Lac-Hydrin 12% Lotion] 1 applic TOPICAL BID Melatonin 10 mg PO HS Nitroglycerin Sl Tabs [Nitrostat] 0.4 mg SL Q5M PRN PRN Reason: Chest Pain LORazepam [Ativan] 1 mg PO BID PRN #6 tab PRN Reason: Anxiety HYDROcodone/APAP 10-325MG [Kensal 10-325] 1 tab PO Q12H PRN #6 tab PRN Reason: pain Discontinued amLODIPine [Norvasc] 2.5 mg PO DAILY Discharge Medication List Atorvastatin [Lipitor] 80 mg PO HS 12/27/16 [History] Acetaminophen Tab [Tylenol] 500 mg PO Q6H PRN 01/11/19 [History] Docusate Sodium [Dok] 100 mg PO BID 01/11/19 [History] Escitalopram [Lexapro] 20 mg PO DAILY 04/02/19 [History] Folic Acid-Vit B Complex-Vit C [Nephrocaps] 1 cap PO MOWEFR@2100 04/02/19 [History] Folic Acid-Vit B Complex-Vit C [Nephrocaps] 1 cap PO SUTUTHSA@0900 04/02/19 [History] Clopidogrel [Plavix] 75 mg PO DAILY 04/09/19 [History] Levothyroxine Sodium [Synthroid] 175 mcg PO DAILY 11/05/19 [History] Sodium Polystyrene Sulfonate 15 gm PO SUTUTH 11/05/19 [History] Lidocaine-Prilocaine Cream [Emla Cream 2.5%/2.5%] 1 applic TOPICAL MOWEFR 11/23/19 [History] Furosemide [Lasix] 80 mg PO DAILY 01/28/20 [History] Aspirin 81 mg PO DAILY 02/28/20 [History] Sennosides [Senna] 8.6 mg PO DAILY PRN 02/28/20 [History] Insulin Detemir (Levemir) [Levemir] 18 unit SQ HS syr 03/04/20 [Rx] Warfarin Sodium 4 mg PO DAILY@1700 04/03/20 [History] carvediloL [Coreg] 3.125 mg PO BID 04/03/20 [History] Insulin Lispro [humaLOG Kwikpen] 2 unit SQ HS 04/10/20 [History] Insulin Lispro [humaLOG Kwikpen] See Protocol SQ ACHS 04/10/20 [History] Ammonium Lactate Lotion [Lac-Hydrin 12% Lotion] 1 applic TOPICAL BID 04/28/20 [History] Melatonin 10 mg PO HS 04/28/20 [History] Nitroglycerin Sl Tabs [Nitrostat] 0.4 mg SL Q5M PRN 04/28/20 [History] HYDROcodone/APAP 10-325MG [Kensal 10-325] 1 tab PO Q12H PRN #6 tab 05/03/20 [Rx] LORazepam [Ativan] 1 mg PO BID PRN #6 tab 05/03/20 [Rx] Midodrine [ProAmatine] 5 mg PO BID PRN tab 05/03/20 [Rx] Pantoprazole [Protonix] 40 mg PO AC-BRKFST tablet. 05/03/20 [Rx] Follow up Appointment(s)/Referral(s): Tarun Boyer DO [Doctor of Osteopathic Medicine] - As Needed Kimberli Gar MD [Primary Care Provider] - 1 Week Patient Instructions/Handouts: Osteoarthritis (ED), Hip Pain (ED) Activity/Diet/Wound Care/Special Instructions: Please return to the Emergency Department if symptoms worsen or any other concerns. Follow-up with dialysis for low hemoglobin and anemia. Position change every 2 hours to avoid pressure sores and sacral/hip pain. Continue take medications as prescribed. Follow-up with primary care 1-2 days. Discharge Disposition: TRANSFER TO SNF/ECF
[2020-05-03 09:18] LABS: Basophils # (A) 0.03 X 10*3/uL (0.00-0.10); Basophils % (A) 0.4 %; Eosinophils # (A) 0.28 X 10*3/uL (0.04-0.35); Eosinophils % (A) 3.6 %; HCT 26.3 % (37.2-46.3); HGB 7.8 g/dL (12.0-15.0); Lymphocytes % (A) 10.3 %; MCH 30.6 pg (27.0-32.0); MCHC 29.7 g/dL (32.0-37.0); MCV 103.1 fL (80.0-97.0); Mean Platelet Volume 9.9 fL (9.5-12.2); Monocytes # (A) 0.84 X 10*3/uL (0.20-1.00); Monocytes % (A) 10.8 %; Neutrophils # (A) 5.77 X 10*3/uL (1.80-7.70); Neutrophils % (A) 74.4 %; Platelet Count 266 X 10*3/uL (140-440); RBC 2.55 X 10*6/uL (4.10-5.20); RDW 20.9 % (11.5-14.5); WBC 7.76 X 10*3/uL (4.50-10.00)
[2020-05-03] MEDS: ASPIRIN 81 MG PO SCH (09:58)
[2020-05-03] MEDS: DOCUSATE 100 MG CAP PO SCH (09:59)
[2020-05-03] MEDS: ESCITALOPRAM 20 MG TAB PO SCH (09:59)
[2020-05-03] MEDS: FUROSEMIDE 80 MG TAB PO SCH (09:59)
[2020-05-03] MEDS: CLOPIDOGREL 75 MG TAB PO SCH (09:59)
[2020-05-03] MEDS: carvediloL 3.125 MG TAB PO SCH ×3 (09:59→19:34)
[2020-05-03] MEDS: AMMONIUM LACTATE 12% LOTION 225 GM BTL TOPICAL SCH (10:00)
[2020-05-03] MEDS: MIDODRINE 5 MG TAB PO SCH ×3 (10:05→17:22)
--- NOTE | 2020-05-03 10:14 | P.PN ---
Subjective Patient is seen in follow-up for end-stage renal disease. She is maintained on hemodialysis on Friday schedule. No chest pain or shortness of breath. Oral intake fair. Blood pressure stable. She is receiving midodrine. Scheduled for dialysis today. No pain today. Vital signs are stable. General: The patient appeared well nourished and normally developed. HEENT: Head exam is unremarkable. Neck is without jugular venous distension. LUNGS: Breath sounds decreased. HEART: Rate and Rhythm are regular. ABDOMEN: Soft, nontender. EXTREMITITES: Trace edema. Chronic changes noted. Objective - Vital Signs Vital signs: Vital Signs Temp 98.4 F 05/03/20 04:56 Pulse 60 05/03/20 04:56 Resp 16 05/03/20 04:56 BP 116/68 05/03/20 04:56 Pulse Ox 100 05/03/20 04:56 Intake & Output 05/02/20 05/03/20 05/03/20 18:59 06:59 18:59 Intake Total 650 320 Balance 650 320 Intake: Oral 650 320 Other: Voiding Method Diaper Diaper # Voids 0 1 - Labs CBC & Chem 7: 05/03/20 05:55 05/01/20 05:45 Labs: Abnormal Lab Results - Last 24 Hours (Table) 05/02/20 05/02/20 05/02/20 Range/Units 12:17 17:05 20:31 RBC (4.10-5.20) X 10*6/uL Hgb (12.0-15.0) g/dL Hct (37.2-46.3) % MCV (80.0-97.0) fL MCHC (32.0-37.0) g/dL RDW (11.5-14.5) % Lymphocytes # (0.90-5.00) X 10*3/uL POC Glucose (mg/dL) 118 H 158 H 208 H (75-99) mg/dL 05/03/20 05/03/20 Range/Units 05:55 07:04 RBC 2.55 L (4.10-5.20) X 10*6/uL Hgb 7.8 L (12.0-15.0) g/dL Hct 26.3 L (37.2-46.3) % MCV 103.1 H (80.0-97.0) fL MCHC 29.7 L (32.0-37.0) g/dL RDW 20.9 H (11.5-14.5) % Lymphocytes # 0.80 L (0.90-5.00) X 10*3/uL POC Glucose (mg/dL) 100 H (75-99) mg/dL Assessment and Plan Plan: Assessment: 1. End-stage renal disease maintained on hemodialysis on Friday schedule. 2. Left hip pain. No fracture noted. Pain better controlled. 3. Diabetes mellitus. 4. Hypertonic hyponatremia secondary to hyperglycemia. Also component of chronic kidney disease. 5. Anemia of chronic kidney disease maintained on Aranesp. Iron replete. Plan: Hemodialysis today. Tight blood sugar control. Maintain midodrine with parameters.
[2020-05-03 10:25] LABS: African American GFR (CKD) 10.3 (60.0-200.0); Albumin 2.9 g/dL (3.80-4.90); Albumin/Globulin Ratio 1.07 (1.60-3.17); BUN/Creat Ratio 6.04 Ratio (12.00-20.00); Calcium 8.7 mg/dL (8.7-10.3); Globulin 2.7 g/dL (1.6-3.3); Non-African American GFR(CKD) 8.9 (60.0-200.0); Potassium 3.6 mmol/L (3.5-5.5); Total Bilirubin 0.8 mg/dL (0.2-1.2); Total Protein 5.6 g/dL (6.2-8.2)
[2020-05-03 11:19] LABS: Glucose,Whole Blood 104 mg/dL (75-99)
[2020-05-03 11:28] LABS: INR 1.73 (0.90-1.11); Prothrombin Time 18.2 sec (9.9-11.9)
--- NOTE | 2020-05-03 12:57 | P.CNOR ---
History of Present Illness - HPI Consult date: 05/03/20 History of present illness: This is a 64 year-old female who is admitted for evaluation of anemia. Orthopedics is consulted due to left hip pain. Patient states that she developed left hip pain a few days ago and has had similar symptoms in the past. Patient denies any know injury and states that her symptoms are improving. Patient state s that she is wheelchair bound and requires assistance with transfers. Patient resides at [facility]. Patient's past medical history is significant for end-stage renal disease on dialysis, coronary artery disease with stent placement, diabetes type 2, dyslipidemia and pacemaker. Patient also has a history of Covid-19, but has since recovered. Patient denies any numbness, weakness or tingling. Review of Systems See HPI. Past Medical History Past Medical History: Atrial Flutter, Asthma, Coronary Artery Disease (CAD), Chest Pain / Angina, Heart Failure, Dementia, Diabetes Mellitus, Dialysis, GERD/Reflux, Hearing Disorder / Deafness, Hyperlipidemia, Hypertension, Liver Disease, Myocardial Infarction (NM), Osteoarthritis (OA), Pneumonia, Renal Disease, Thyroid Disorder, Vascular Disorder Additional Past Medical History / Comment(s): Pt recently admitted to [facility] on 04/03/20 with severe metabolic encephalopathy d/t ESRD with cardiac debitlity and cardiomyopathy. Other hx: Recent covid, hypertensive nephrosclerosis, ESRD with hemodialysis M/W/F, chronic anemia, IDDM type II with insulin pump, ne uropathy bilateral legs/feet, bilateral diabetic retinopathy, "several heart attacks", murmur, bradycardia/has pacemaker, hepatitis A which pt states was treated, pt is wheelchair bound, IBS, constipation, incontinent of stool, vertigo, PVD, pt believes she has a coccyx decubitus at this time, tinnitis bilaterally, sinus problems, chronic back pain/sciatica/scoliosis, hypothyroid, UTIs, vitamin D defiency, falls, Last Myocardial Infarction Date:: 04/02/20 History of Any Multi-Drug Resistant Organisms: MRSA, VRE Year Discovered:: 11/11/18-VRE; 09/27/17 MRSA MDRO Source:: Urine-VRE; Right Breast-MRSA Past Surgical History: Adenoidectomy, Appendectomy, Bariatric Surgery, C holecystectomy, Heart Catheterization, Heart Catheterization With Stent, Hysterectomy, Orthopedic Surgery, Pacemaker, Tonsillectomy Additional Past Surgical History / Comment(s): D&C, ovarian wedge resection, EGDLap band/gastric sleeve, hemodialysis fistula/surgery to reposition, L shoulder arthroscopic surgery, excisional debridement R lower extremity, bilateral cataract removals/lens implants. Past Anesthesia/Blood Transfusion Reactions: Motion Sickness, Postoperative Nausea & Vomiting (PONV) Additional Past Anesthesia/Blood Transfusion Reaction / Comm: blood transfusion- pt stated they gave her medication for a reaction but does'nt rememebr what the reaction was Date of Last Stent Placement:: 04/02/20 Type of Cardiac Device: Permanent Pacemaker Device Placement Date:: 04/20/18 Past Psychological History: Anxiety, Bipolar, Depression Additional Psychological History / Comment(s): Pt resides at [facility] and is wheel chair bound. She requires a 2 person transfer or requires a cuate lift Smoking Status: Never smoker Past Alcohol Use History: None Reported Past Drug Use History: None Reported - Past Family History Mother Family Medical History: Congestive Heart Failure (CHF), Diabetes Mellitus, Hypertension Father History Unknown: Yes Family Medical History: Diabetes Mellitus Brother(s) Family Medical History: Diabetes Mellitus, Hyperlipidemia, Renal Disease Additional Family Medical History / Comment(s): chronic kidney disease Medications and Allergies Home Medications Medication Instructions Recorded Confirmed Type Atorvastatin [Lipitor] 80 mg PO HS 12/27/16 04/28/20 History Acetaminophen Tab [Tylenol] 500 mg PO Q6H PRN 01/11/19 04/28/20 History Docusate Sodium [Dok] 100 mg PO BID 01/11/19 04/28/20 History Escitalopram [Lexapro] 20 mg PO DAILY 04/02/19 04/28/20 History Folic Acid-Vit B Complex-Vit C 1 cap PO MOWEFR@2100 04/02/19 04/28/20 History [Nephrocaps] Folic Acid-Vit B Complex-Vit C 1 cap PO SUTUTHSA@0900 04/02/19 04/28/20 History [Nephrocaps] Clopidogrel [Plavix] 75 mg PO DAILY 04/09/19 04/28/20 History amLODIPine [Norvasc] 2.5 mg PO DAILY 04/09/19 04/28/20 History Levothyroxine Sodium [Synthroid] 175 mcg PO DAILY 11/05/19 04/28/20 History Sodium Polystyrene Sulfonate 15 gm PO SUTUTH 11/05/19 04/28/20 History Lidocaine-Prilocaine Cream [Emla 1 applic TOPICAL MOWEFR 11/23/19 04/28/20 History Cream 2.5%/2.5%] Furosemide [Lasix] 80 mg PO DAILY 01/28/20 04/28/20 History Aspirin 81 mg PO DAILY 02/28/20 04/28/20 History Sennosides [Senna] 8.6 mg PO DAILY PRN 02/28/20 04/28/20 History Insulin Detemir (Levemir) [Levemir] 18 unit SQ HS syr 03/04/20 04/28/20 Rx Warfarin Sodium 4 mg PO DAILY@1700 04/03/20 04/28/20 History carvediloL [Coreg] 3.125 mg PO BID 04/03/20 04/28/20 History Insulin Lispro [humaLOG Kwikpen] 2 unit SQ HS 04/10/20 04/28/20 History Insulin Lispro [humaLOG Kwikpen] See Protocol SQ ACHS 04/10/20 04/28/20 History HYDROcodone/APAP 10-325MG [Henderson 1 tab PO Q12H PRN #6 tab 04/11/20 04/28/20 Rx 10-325] LORazepam [Ativan] 1 mg PO BID PRN #6 tab 04/11/20 04/28/20 Rx Ammonium Lactate Lotion 1 applic TOPICAL BID 04/28/20 04/28/20 History [Lac-Hydrin 12% Lotion] Melatonin 10 mg PO HS 04/28/20 04/28/20 History Nitroglycerin Sl Tabs [Nitrostat] 0.4 mg SL Q5M PRN 04/28/20 04/28/20 History Allergies Allergy/AdvReac Type Severity Reaction Status Date / Time adhesive Allergy Rash/Hives Verified 04/28/20 17:31 Penicillins Allergy Rash/Hives Verified 04/28/20 17:31 Iodinated Contrast Media AdvReac KIDNEY Verified 04/28/20 17:31 [Iodinated Contrast- Oral FAILURE and IV Dye] metformin AdvReac SUGAR Verified 04/28/20 17:31 LEVEL INCREASE Physical Examination On exam patient is resting comfortably in bed in no acute distress. Patient is alert and oriented x3. There is discomfort with passive and active motion of the left hip. Calf is soft and nontender to palpation. Sensation intact. Neurovascular status and circulatory status are intact. Results X-rays of bilateral hips and pelvis show mild-moderate arthritic changes. No fracture or dislocation. CT of the left hip shows moderate arthritic changes. No fracture or dislocation. - Labs Labs: Abnormal Lab Results - Last 24 Hours (Table) 05/02/20 05/02/20 05/03/20 Range/Units 17:05 20:31 05:55 RBC (4.10-5.20) X 10*6/uL Hgb (12.0-15.0) g/dL Hct (37.2-46.3) % MCV (80.0-97.0) fL MCHC (32.0-37.0) g/dL RDW (11.5-14.5) % Lymphocytes # (0.90-5.00) X 10*3/uL PT 18.2 H (9.9-11.9) sec INR 1.73 H (0.90-1.11) Sodium (135-145) mmol/L BUN (9.0-27.0) mg/dL Creatinine (0.6-1.5) mg/dL Est GFR (CKD-EPI)AfAm (60.0-200.0) Est GFR (CKD-EPI)NonAf (60.0-200.0) BUN/Creatinine Ratio (12.00-20.00) Ratio POC Glucose (mg/dL) 158 H 208 H (75-99) mg/dL AST (13-35) U/L ALT (8-44) U/L Alkaline Phosphatase (41-126) U/L Total Protein (6.2-8.2) g/dL Albumin (3.80-4.90) g/dL Albumin/Globulin Ratio (1.60-3.17) g/dL 05/03/20 05/03/20 05/03/20 Range/Units 05:55 05:55 07:04 RBC 2.55 L (4.10-5.20) X 10*6/uL Hgb 7.8 L (12.0-15.0) g/dL Hct 26.3 L (37.2-46.3) % MCV 103.1 H (80.0-97.0) fL MCHC 29.7 L (32.0-37.0) g/dL RDW 20.9 H (11.5-14.5) % Lymphocytes # 0.80 L (0.90-5.00) X 10*3/uL PT (9.9-11.9) sec INR (0.90-1.11) Sodium 133 L (135-145) mmol/L BUN 29.0 H (9.0-27.0) mg/dL Creatinine 4.8 H (0.6-1.5) mg/dL Est GFR (CKD-EPI)AfAm 10.3 L (60.0-200.0) Est GFR (CKD-EPI)NonAf 8.9 L (60.0-200.0) BUN/Creatinine Ratio 6.04 L (12.00-20.00) Ratio POC Glucose (mg/dL) 100 H (75-99) mg/dL AST 99 H (13-35) U/L ALT 72 H (8-44) U/L Alkaline Phosphatase 139 H (41-126) U/L Total Protein 5.6 L (6.2-8.2) g/dL Albumin 2.90 L (3.80-4.90) g/dL Albumin/Globulin Ratio 1.07 L (1.60-3.17) g/dL 05/03/20 Range/Units 11:16 RBC (4.10-5.20) X 10*6/uL Hgb (12.0-15.0) g/dL Hct (37.2-46.3) % MCV (80.0-97.0) fL MCHC (32.0-37.0) g/dL RDW (11.5-14.5) % Lymphocytes # (0.90-5.00) X 10*3/uL PT (9.9-11.9) sec INR (0.90-1.11) Sodium (135-145) mmol/L BUN (9.0-27.0) mg/dL Creatinine (0.6-1.5) mg/dL Est GFR (CKD-EPI)AfAm (60.0-200.0) Est GFR (CKD-EPI)NonAf (60.0-200.0) BUN/Creatinine Ratio (12.00-20.00) Ratio POC Glucose (mg/dL) 104 H (75-99) mg/dL AST (13-35) U/L ALT (8-44) U/L Alkaline Phosphatase (41-126) U/L Total Protein (6.2-8.2) g/dL Albumin (3.80-4.90) g/dL Albumin/Globulin Ratio (1.60-3.17) g/dL H & H 04/28/20 04/28/20 04/29/20 Range/Units 17:23 23:50 02:04 Hgb 7.5 L D 7.9 L 7.5 L (11.4-16.0) gm/dL Hct 24.4 L 25.6 L 24.3 L (34.0-46.0) % 04/29/20 04/30/20 05/01/20 Range/Units 07:19 05:05 05:45 Hgb 7.7 L 7.1 L 7.4 L (11.4-16.0) gm/dL Hct 25.5 L 23.8 L 25.7 L (34.0-46.0) % 05/03/20 Range/Units 05:55 Hgb 7.8 L (11.4-16.0) gm/dL Hct 26.3 L (34.0-46.0) % Coagulation 04/28/20 04/29/20 04/30/20 Range/Units 23:50 06:28 05:05 INR 3.0 H 2.86 H 3.10 H (<1.2) 05/01/20 05/02/20 05/03/20 Range/Units 05:45 06:27 05:55 INR 3.47 H 3.1 H 1.73 H (<1.2) Result Diagrams: 05/03/20 05:55 05/03/20 05:55 Assessment and Plan (1) Osteoarthritis of left hip Current Visit: Yes Status: Acute Code(s): M16.12 - UNILATERAL PRIMARY OSTEOARTHRITIS, LEFT HIP SNOMED Code(s): 629382757169448 (2) Hip pain Current Visit: Yes Status: Acute Code(s): M25.559 - PAIN IN UNSPECIFIED HIP SNOMED Code(s): 62009369 Plan: 1. Imaging is reviewed revealing mild-moderate osteoarthritis in the left hip. 2. Recommend pain control and physical therapy. 3. No surgical intervention planned. Patient may follow up as an outpatient as needed.
[2020-05-03] MEDS: LIDOCAINE-PRILOCAINE 2.5-2.5% CREAM 5 GM TUBE TOPICAL SCH (14:03)
[2020-05-03] MEDS ORDERED: LIDOCAINE 1% INJ 10MG/ML (20 ML MDV) ONE (16:00)
[2020-05-03] MEDS ORDERED: GELATIN SPONGE,ABSORB (SMALL) 1 EACH SPONGE ONE (16:00)
[2020-05-03 16:58] LABS: Glucose,Whole Blood 123 mg/dL (75-99)
[2020-05-03] MEDS ORDERED: WARFARIN 2 MG TAB PO ONE (18:00)
[2020-05-03 19:17] VITALS: BP 124/58; PULSE 63; RESP 18; TEMP 98.1
--- NOTE | 2020-05-08 14:06 | ED ---
Medical Decision Making - Medical Decision Making general: alert, no apparent distress, obese head: atraumatic, normocephalic, eye: normal appearance, PERRLA, EOMI ENT: normal exam neck: supple, trachea midline respiratory: normal breath sounds, clear bilaterally cardiovascular: regular rate and rhythm, +s1/s2 GI/abdomen: soft, nontender, nondistended, normal bowel sounds. extremities: left hip pain, and mild tenderness neuro: oriented x3, CN 2-12 intact, alert psych: no SI/HI, normal affect and mood skin: warm, dry and intact, - Lab Data Result diagrams: 05/03/20 05:55 05/03/20 05:55 Lab Results 04/28/20 04/28/20 04/28/20 Range/Units 17:23 17:23 17:23 WBC 6.5 (3.8-10.6) k/uL RBC 2.53 L (3.80-5.40) m/uL Hgb 7.5 L D (11.4-16.0) gm/dL Hct 24.4 L (34.0-46.0) % MCV 96.5 (80.0-100.0) fL MCH 29.5 (25.0-35.0) pg MCHC 30.6 L (31.0-37.0) g/dL RDW 17.7 H (11.5-15.5) % Plt Count 220 (150-450) k/uL MPV 8.4 Immature Gran % (Auto) % Absolute Nucleated RBC (0.00-0.00) X 10*3/uL Neutrophils % 74 % Lymphocytes % 12 % Monocytes % 6 % Eosinophils % 6 % Basophils % 1 % Immature Gran # (0.00-0.04) X 10*3/uL Neutrophils # 4.8 (1.3-7.7) k/uL Lymphocytes # 0.8 L (1.0-4.8) k/uL Monocytes # 0.4 (0-1.0) k/uL Eosinophils # 0.4 (0-0.7) k/uL Basophils # 0.0 (0-0.2) k/uL NRBC/100 WBC Diff (0.0-0.0) /100 WBCS Hypochromasia Moderate Anisocytosis Slight Macrocytosis Slight PT (9.0-12.0) sec INR (<1.2) Sodium 129 L (137-145) mmol/L Potassium 3.5 (3.5-5.1) mmol/L Chloride 90 L (98-107) mmol/L Carbon Dioxide 25 (22-30) mmol/L Anion Gap 14 mmol/L BUN 37 H (7-17) mg/dL Creatinine 5.15 H (0.52-1.04) mg/dL Est GFR (CKD-EPI)AfAm 9 (>60 ml/min/1.73 sqM) Est GFR (CKD-EPI)NonAf 8 (>60 ml/min/1.73 sqM) BUN/Creatinine Ratio (12.00-20.00) Ratio Glucose 467 H (74-99) mg/dL POC Glucose (mg/dL) (75-99) mg/dL POC Glu Safety And Occupational Health Manager ID Calcium 8.5 (8.4-10.2) mg/dL Iron 45 L (50-170) ug/dL TIBC 155 L (228-460) ug/dL % Saturation 29.03 (12.00-45.00) Ferritin 2376.5 H (10.0-291.0) ng/mL Total Bilirubin 0.8 (0.2-1.3) mg/dL AST 23 (14-36) U/L ALT 19 (4-34) U/L Alkaline Phosphatase 85 (38-126) U/L Total Protein 6.1 L (6.3-8.2) g/dL Albumin 2.8 L (3.5-5.0) g/dL Globulin (1.6-3.3) g/dL Albumin/Globulin Ratio (1.60-3.17) g/dL Stool Occult Blood (Negative) Coronavirus (PCR) (Not Detectd) 04/28/20 04/28/20 04/28/20 Range/Units 19:09 20:11 21:58 WBC (3.8-10.6) k/uL RBC (3.80-5.40) m/uL Hgb (11.4-16.0) gm/dL Hct (34.0-46.0) % MCV (80.0-100.0) fL MCH (25.0-35.0) pg MCHC (31.0-37.0) g/dL RDW (11.5-15.5) % Plt Count (150-450) k/uL MPV Immature Gran % (Auto) % Absolute Nucleated RBC (0.00-0.00) X 10*3/uL Neutrophils % % Lymphocytes % % Monocytes % % Eosinophils % % Basophils % % Immature Gran # (0.00-0.04) X 10*3/uL Neutrophils # (1.3-7.7) k/uL Lymphocytes # (1.0-4.8) k/uL Monocytes # (0-1.0) k/uL Eosinophils # (0-0.7) k/uL Basophils # (0-0.2) k/uL NRBC/100 WBC Diff (0.0-0.0) /100 WBCS Hypochromasia Anisocytosis Macrocytosis PT (9.0-12.0) sec INR (<1.2) Sodium (137-145) mmol/L Potassium (3.5-5.1) mmol/L Chloride (98-107) mmol/L Carbon Dioxide (22-30) mmol/L Anion Gap mmol/L BUN (7-17) mg/dL Creatinine (0.52-1.04) mg/dL Est GFR (CKD-EPI)AfAm (>60 ml/min/1.73 sqM) Est GFR (CKD-EPI)NonAf (>60 ml/min/1.73 sqM) BUN/Creatinine Ratio (12.00-20.00) Ratio Glucose (74-99) mg/dL POC Glucose (mg/dL) 491 H (75-99) mg/dL POC Glu Safety And Occupational Health Manager ID Santana, Sheila Calcium (8.4-10.2) mg/dL Iron (50-170) ug/dL TIBC (228-460) ug/dL % Saturation (12.00-45.00) Ferritin (10.0-291.0) ng/mL Total Bilirubin (0.2-1.3) mg/dL AST (14-36) U/L ALT (4-34) U/L Alkaline Phosphatase (38-126) U/L Total Protein (6.3-8.2) g/dL Albumin (3.5-5.0) g/dL Globulin (1.6-3.3) g/dL Albumin/Globulin Ratio (1.60-3.17) g/dL Stool Occult Blood Negative (Negative) Coronavirus (PCR) Not Detected (Not Detectd) 04/28/20 04/28/20 04/29/20 Range/Units 23:50 23:50 02:04 WBC 6.7 6.7 (3.8-10.6) k/uL RBC 2.57 L 2.45 L (3.80-5.40) m/uL Hgb 7.9 L 7.5 L (11.4-16.0) gm/dL Hct 25.6 L 24.3 L (34.0-46.0) % MCV 99.3 99.4 (80.0-100.0) fL MCH 30.6 30.8 (25.0-35.0) pg MCHC 30.8 L 31.0 (31.0-37.0) g/dL RDW 17.7 H 18.0 H (11.5-15.5) % Plt Count 218 189 (150-450) k/uL MPV 8.0 8.5 Immature Gran % (Auto) % Absolute Nucleated RBC (0.00-0.00) X 10*3/uL Neutrophils % % Lymphocytes % % Monocytes % % Eosinophils % % Basophils % % Immature Gran # (0.00-0.04) X 10*3/uL Neutrophils # (1.3-7.7) k/uL Lymphocytes # (1.0-4.8) k/uL Monocytes # (0-1.0) k/uL Eosinophils # (0-0.7) k/uL Basophils # (0-0.2) k/uL NRBC/100 WBC Diff (0.0-0.0) /100 WBCS Hypochromasia Marked Marked Anisocytosis Slight Slight Macrocytosis Slight Slight PT 29.2 H (9.0-12.0) sec INR 3.0 H (<1.2) Sodium (137-145) mmol/L Potassium (3.5-5.1) mmol/L Chloride (98-107) mmol/L Carbon Dioxide (22-30) mmol/L Anion Gap mmol/L BUN (7-17) mg/dL Creatinine (0.52-1.04) mg/dL Est GFR (CKD-EPI)AfAm (>60 ml/min/1.73 sqM) Est GFR (CKD-EPI)NonAf (>60 ml/min/1.73 sqM) BUN/Creatinine Ratio (12.00-20.00) Ratio Glucose (74-99) mg/dL POC Glucose (mg/dL) (75-99) mg/dL POC Glu Safety And Occupational Health Manager ID Calcium (8.4-10.2) mg/dL Iron (50-170) ug/dL TIBC (228-460) ug/dL % Saturation (12.00-45.00) Ferritin (10.0-291.0) ng/mL Total Bilirubin (0.2-1.3) mg/dL AST (14-36) U/L ALT (4-34) U/L Alkaline Phosphatase (38-126) U/L Total Protein (6.3-8.2) g/dL Albumin (3.5-5.0) g/dL Globulin (1.6-3.3) g/dL Albumin/Globulin Ratio (1.60-3.17) g/dL Stool Occult Blood (Negative) Coronavirus (PCR) (Not Detectd) 04/29/20 04/29/20 04/29/20 Range/Units 06:28 07:19 07:39 WBC 7.1 (3.8-10.6) k/uL RBC 2.55 L (3.80-5.40) m/uL Hgb 7.7 L (11.4-16.0) gm/dL Hct 25.5 L (34.0-46.0) % MCV 99.8 (80.0-100.0) fL MCH 30.3 (25.0-35.0) pg MCHC 30.3 L (31.0-37.0) g/dL RDW 17.8 H (11.5-15.5) % Plt Count 214 (150-450) k/uL MPV 7.7 Immature Gran % (Auto) % Absolute Nucleated RBC (0.00-0.00) X 10*3/uL Neutrophils % % Lymphocytes % % Monocytes % % Eosinophils % % Basophils % % Immature Gran # (0.00-0.04) X 10*3/uL Neutrophils # (1.3-7.7) k/uL Lymphocytes # (1.0-4.8) k/uL Monocytes # (0-1.0) k/uL Eosinophils # (0-0.7) k/uL Basophils # (0-0.2) k/uL NRBC/100 WBC Diff (0.0-0.0) /100 WBCS Hypochromasia Marked Anisocytosis Slight Macrocytosis Slight PT 29.1 H (9.0-12.0) sec INR 2.86 H (<1.2) Sodium (137-145) mmol/L Potassium (3.5-5.1) mmol/L Chloride (98-107) mmol/L Carbon Dioxide (22-30) mmol/L Anion Gap mmol/L BUN (7-17) mg/dL Creatinine (0.52-1.04) mg/dL Est GFR (CKD-EPI)AfAm (>60 ml/min/1.73 sqM) Est GFR (CKD-EPI)NonAf (>60 ml/min/1.73 sqM) BUN/Creatinine Ratio (12.00-20.00) Ratio Glucose (74-99) mg/dL POC Glucose (mg/dL) 370 H (75-99) mg/dL POC Glu Safety And Occupational Health Manager ID Rebecca Otero Calcium (8.4-10.2) mg/dL Iron (50-170) ug/dL TIBC (228-460) ug/dL % Saturation (12.00-45.00) Ferritin (10.0-291.0) ng/mL Total Bilirubin (0.2-1.3) mg/dL AST (14-36) U/L ALT (4-34) U/L Alkaline Phosphatase (38-126) U/L Total Protein (6.3-8.2) g/dL Albumin (3.5-5.0) g/dL Globulin (1.6-3.3) g/dL Albumin/Globulin Ratio (1.60-3.17) g/dL Stool Occult Blood (Negative) Coronavirus (PCR) (Not Detectd) 04/29/20 04/29/20 04/29/20 Range/Units 11:27 16:57 21:10 WBC (3.8-10.6) k/uL RBC (3.80-5.40) m/uL Hgb (11.4-16.0) gm/dL Hct (34.0-46.0) % MCV (80.0-100.0) fL MCH (25.0-35.0) pg MCHC (31.0-37.0) g/dL RDW (11.5-15.5) % Plt Count (150-450) k/uL MPV Immature Gran % (Auto) % Absolute Nucleated RBC (0.00-0.00) X 10*3/uL Neutrophils % % Lymphocytes % % Monocytes % % Eosinophils % % Basophils % % Immature Gran # (0.00-0.04) X 10*3/uL Neutrophils # (1.3-7.7) k/uL Lymphocytes # (1.0-4.8) k/uL Monocytes # (0-1.0) k/uL Eosinophils # (0-0.7) k/uL Basophils # (0-0.2) k/uL NRBC/100 WBC Diff (0.0-0.0) /100 WBCS Hypochromasia Anisocytosis Macrocytosis PT (9.0-12.0) sec INR (<1.2) Sodium (137-145) mmol/L Potassium (3.5-5.1) mmol/L Chloride (98-107) mmol/L Carbon Dioxide (22-30) mmol/L Anion Gap mmol/L BUN (7-17) mg/dL Creatinine (0.52-1.04) mg/dL Est GFR (CKD-EPI)AfAm (>60 ml/min/1.73 sqM) Est GFR (CKD-EPI)NonAf (>60 ml/min/1.73 sqM) BUN/Creatinine Ratio (12.00-20.00) Ratio Glucose (74-99) mg/dL POC Glucose (mg/dL) 292 H 117 H 137 H (75-99) mg/dL POC Glu Safety And Occupational Health Manager ID Branden, Rebecca Otero, Rebecca Santana, Sheila Calcium (8.4-10.2) mg/dL Iron (50-170) ug/dL TIBC (228-460) ug/dL % Saturation (12.00-45.00) Ferritin (10.0-291.0) ng/mL Total Bilirubin (0.2-1.3) mg/dL AST (14-36) U/L ALT (4-34) U/L Alkaline Phosphatase (38-126) U/L Total Protein (6.3-8.2) g/dL Albumin (3.5-5.0) g/dL Globulin (1.6-3.3) g/dL Albumin/Globulin Ratio (1.60-3.17) g/dL Stool Occult Blood (Negative) Coronavirus (PCR) (Not Detectd) 04/30/20 04/30/20 04/30/20 Range/Units 05:05 05:05 05:05 WBC 8.98 (3.8-10.6) k/uL RBC 2.34 L (3.80-5.40) m/uL Hgb 7.1 L (11.4-16.0) gm/dL Hct 23.8 L (34.0-46.0) % MCV 101.7 H (80.0-100.0) fL MCH 30.3 (25.0-35.0) pg MCHC 29.8 L (31.0-37.0) g/dL RDW 18.8 H (11.5-15.5) % Plt Count 251 (150-450) k/uL MPV 10.5 Immature Gran % (Auto) 0.4 % Absolute Nucleated RBC 0 (0.00-0.00) X 10*3/uL Neutrophils % 77.8 % Lymphocytes % 10.1 % Monocytes % 7.3 % Eosinophils % 4.2 % Basophils % 0.2 % Immature Gran # 0.04 (0.00-0.04) X 10*3/uL Neutrophils # 6.97 (1.3-7.7) k/uL Lymphocytes # 0.91 (1.0-4.8) k/uL Monocytes # 0.66 (0-1.0) k/uL Eosinophils # 0.38 H (0-0.7) k/uL Basophils # 0.02 (0-0.2) k/uL NRBC/100 WBC Diff 0 (0.0-0.0) /100 WBCS Hypochromasia Anisocytosis Macrocytosis PT 31.4 H (9.0-12.0) sec INR 3.10 H (<1.2) Sodium 138 (137-145) mmol/L Potassium 3.7 (3.5-5.1) mmol/L Chloride 102 (98-107) mmol/L Carbon Dioxide 22.6 (22-30) mmol/L Anion Gap 13.40 H mmol/L BUN 26.0 (7-17) mg/dL Creatinine 4.1 H (0.52-1.04) mg/dL Est GFR (CKD-EPI)AfAm 12.4 L (>60 ml/min/1.73 sqM) Est GFR (CKD-EPI)NonAf 10.7 L (>60 ml/min/1.73 sqM) BUN/Creatinine Ratio 6.34 L (12.00-20.00) Ratio Glucose 228 H (74-99) mg/dL POC Glucose (mg/dL) (75-99) mg/dL POC Glu Safety And Occupational Health Manager ID Calcium 8.7 (8.4-10.2) mg/dL Iron (50-170) ug/dL TIBC (228-460) ug/dL % Saturation (12.00-45.00) Ferritin (10.0-291.0) ng/mL Total Bilirubin 0.7 (0.2-1.3) mg/dL AST 31 (14-36) U/L ALT 22 (4-34) U/L Alkaline Phosphatase 99 (38-126) U/L Total Protein 5.9 L (6.3-8.2) g/dL Albumin 3.10 L (3.5-5.0) g/dL Globulin 2.8 (1.6-3.3) g/dL Albumin/Globulin Ratio 1.11 L (1.60-3.17) g/dL Stool Occult Blood (Negative) Coronavirus (PCR) (Not Detectd) 04/30/20 04/30/20 04/30/20 Range/Units 06:58 11:11 16:52 WBC (3.8-10.6) k/uL RBC (3.80-5.40) m/uL Hgb (11.4-16.0) gm/dL Hct (34.0-46.0) % MCV (80.0-100.0) fL MCH (25.0-35.0) pg MCHC (31.0-37.0) g/dL RDW (11.5-15.5) % Plt Count (150-450) k/uL MPV Immature Gran % (Auto) % Absolute Nucleated RBC (0.00-0.00) X 10*3/uL Neutrophils % % Lymphocytes % % Monocytes % % Eosinophils % % Basophils % % Immature Gran # (0.00-0.04) X 10*3/uL Neutrophils # (1.3-7.7) k/uL Lymphocytes # (1.0-4.8) k/uL Monocytes # (0-1.0) k/uL Eosinophils # (0-0.7) k/uL Basophils # (0-0.2) k/uL NRBC/100 WBC Diff (0.0-0.0) /100 WBCS Hypochromasia Anisocytosis Macrocytosis PT (9.0-12.0) sec INR (<1.2) Sodium (137-145) mmol/L Potassium (3.5-5.1) mmol/L Chloride (98-107) mmol/L Carbon Dioxide (22-30) mmol/L Anion Gap mmol/L BUN (7-17) mg/dL Creatinine (0.52-1.04) mg/dL Est GFR (CKD-EPI)AfAm (>60 ml/min/1.73 sqM) Est GFR (CKD-EPI)NonAf (>60 ml/min/1.73 sqM) BUN/Creatinine Ratio (12.00-20.00) Ratio Glucose (74-99) mg/dL POC Glucose (mg/dL) 236 H 173 H 169 H (75-99) mg/dL POC Glu Safety And Occupational Health Manager MISA Otero, Rebecca Otero, Rebecca Juarez Calcium (8.4-10.2) mg/dL Iron (50-170) ug/dL TIBC (228-460) ug/dL % Saturation (12.00-45.00) Ferritin (10.0-291.0) ng/mL Total Bilirubin (0.2-1.3) mg/dL AST (14-36) U/L ALT (4-34) U/L Alkaline Phosphatase (38-126) U/L Total Protein (6.3-8.2) g/dL Albumin (3.5-5.0) g/dL Globulin (1.6-3.3) g/dL Albumin/Globulin Ratio (1.60-3.17) g/dL Stool Occult Blood (Negative) Coronavirus (PCR) (Not Detectd) 04/30/20 05/01/20 05/01/20 Range/Units 20:10 05:45 05:45 WBC 7.27 (3.8-10.6) k/uL RBC 2.46 L (3.80-5.40) m/uL Hgb 7.4 L (11.4-16.0) gm/dL Hct 25.7 L (34.0-46.0) % MCV 104.5 H (80.0-100.0) fL MCH 30.1 (25.0-35.0) pg MCHC 28.8 L (31.0-37.0) g/dL RDW 19.4 H (11.5-15.5) % Plt Count 231 (150-450) k/uL MPV 10.4 Immature Gran % (Auto) 0.6 % Absolute Nucleated RBC 0 (0.00-0.00) X 10*3/uL Neutrophils % 68.3 % Lymphocytes % 15.4 % Monocytes % 9.2 % Eosinophils % 5.9 % Basophils % 0.6 % Immature Gran # 0.04 (0.00-0.04) X 10*3/uL Neutrophils # 4.97 (1.3-7.7) k/uL Lymphocytes # 1.12 (1.0-4.8) k/uL Monocytes # 0.67 (0-1.0) k/uL Eosinophils # 0.43 H (0-0.7) k/uL Basophils # 0.04 (0-0.2) k/uL NRBC/100 WBC Diff 0 (0.0-0.0) /100 WBCS Hypochromasia Anisocytosis Macrocytosis PT 34.9 H (9.0-12.0) sec INR 3.47 H (<1.2) Sodium (137-145) mmol/L Potassium (3.5-5.1) mmol/L Chloride (98-107) mmol/L Carbon Dioxide (22-30) mmol/L Anion Gap mmol/L BUN (7-17) mg/dL Creatinine (0.52-1.04) mg/dL Est GFR (CKD-EPI)AfAm (>60 ml/min/1.73 sqM) Est GFR (CKD-EPI)NonAf (>60 ml/min/1.73 sqM) BUN/Creatinine Ratio (12.00-20.00) Ratio Glucose (74-99) mg/dL POC Glucose (mg/dL) 184 H (75-99) mg/dL POC Glu Safety And Occupational Health Manager ID Mounika Multani Calcium (8.4-10.2) mg/dL Iron (50-170) ug/dL TIBC (228-460) ug/dL % Saturation (12.00-45.00) Ferritin (10.0-291.0) ng/mL Total Bilirubin (0.2-1.3) mg/dL AST (14-36) U/L ALT (4-34) U/L Alkaline Phosphatase (38-126) U/L Total Protein (6.3-8.2) g/dL Albumin (3.5-5.0) g/dL Globulin (1.6-3.3) g/dL Albumin/Globulin Ratio (1.60-3.17) g/dL Stool Occult Blood (Negative) Coronavirus (PCR) (Not Detectd) 05/01/20 05/01/20 05/01/20 Range/Units 05:45 07:14 11:55 WBC (3.8-10.6) k/uL RBC (3.80-5.40) m/uL Hgb (11.4-16.0) gm/dL Hct (34.0-46.0) % MCV (80.0-100.0) fL MCH (25.0-35.0) pg MCHC (31.0-37.0) g/dL RDW (11.5-15.5) % Plt Count (150-450) k/uL MPV Immature Gran % (Auto) % Absolute Nucleated RBC (0.00-0.00) X 10*3/uL Neutrophils % % Lymphocytes % % Monocytes % % Eosinophils % % Basophils % % Immature Gran # (0.00-0.04) X 10*3/uL Neutrophils # (1.3-7.7) k/uL Lymphocytes # (1.0-4.8) k/uL Monocytes # (0-1.0) k/uL Eosinophils # (0-0.7) k/uL Basophils # (0-0.2) k/uL NRBC/100 WBC Diff (0.0-0.0) /100 WBCS Hypochromasia Anisocytosis Macrocytosis PT (9.0-12.0) sec INR (<1.2) Sodium 134 L (137-145) mmol/L Potassium 3.8 (3.5-5.1) mmol/L Chloride 99 (98-107) mmol/L Carbon Dioxide 22.3 (22-30) mmol/L Anion Gap 12.70 H mmol/L BUN 31.0 H (7-17) mg/dL Creatinine 4.8 H (0.52-1.04) mg/dL Est GFR (CKD-EPI)AfAm 10.3 L (>60 ml/min/1.73 sqM) Est GFR (CKD-EPI)NonAf 8.9 L (>60 ml/min/1.73 sqM) BUN/Creatinine Ratio 6.46 L (12.00-20.00) Ratio Glucose 79 (74-99) mg/dL POC Glucose (mg/dL) 82 128 H (75-99) mg/dL POC Glu Safety And Occupational Health Manager ID Ronnie, Dominga Ronnie, Dominga Calcium 8.8 (8.4-10.2) mg/dL Iron (50-170) ug/dL TIBC (228-460) ug/dL % Saturation (12.00-45.00) Ferritin (10.0-291.0) ng/mL Total Bilirubin 0.9 (0.2-1.3) mg/dL AST 58 H (14-36) U/L ALT 37 (4-34) U/L Alkaline Phosphatase 112 (38-126) U/L Total Protein 6.0 L (6.3-8.2) g/dL Albumin 3.20 L (3.5-5.0) g/dL Globulin 2.8 (1.6-3.3) g/dL Albumin/Globulin Ratio 1.14 L (1.60-3.17) g/dL Stool Occult Blood (Negative) Coronavirus (PCR) (Not Detectd) 05/01/20 05/01/20 05/02/20 Range/Units 17:34 20:30 06:27 WBC (3.8-10.6) k/uL RBC (3.80-5.40) m/uL Hgb (11.4-16.0) gm/dL Hct (34.0-46.0) % MCV (80.0-100.0) fL MCH (25.0-35.0) pg MCHC (31.0-37.0) g/dL RDW (11.5-15.5) % Plt Count (150-450) k/uL MPV Immature Gran % (Auto) % Absolute Nucleated RBC (0.00-0.00) X 10*3/uL Neutrophils % % Lymphocytes % % Monocytes % % Eosinophils % % Basophils % % Immature Gran # (0.00-0.04) X 10*3/uL Neutrophils # (1.3-7.7) k/uL Lymphocytes # (1.0-4.8) k/uL Monocytes # (0-1.0) k/uL Eosinophils # (0-0.7) k/uL Basophils # (0-0.2) k/uL NRBC/100 WBC Diff (0.0-0.0) /100 WBCS Hypochromasia Anisocytosis Macrocytosis PT 29.8 H (9.0-12.0) sec INR 3.1 H (<1.2) Sodium (137-145) mmol/L Potassium (3.5-5.1) mmol/L Chloride (98-107) mmol/L Carbon Dioxide (22-30) mmol/L Anion Gap mmol/L BUN (7-17) mg/dL Creatinine (0.52-1.04) mg/dL Est GFR (CKD-EPI)AfAm (>60 ml/min/1.73 sqM) Est GFR (CKD-EPI)NonAf (>60 ml/min/1.73 sqM) BUN/Creatinine Ratio (12.00-20.00) Ratio Glucose (74-99) mg/dL POC Glucose (mg/dL) 142 H 127 H (75-99) mg/dL POC Glu Safety And Occupational Health Manager ID Dominga Trujillo Brenda Calcium (8.4-10.2) mg/dL Iron (50-170) ug/dL TIBC (228-460) ug/dL % Saturation (12.00-45.00) Ferritin (10.0-291.0) ng/mL Total Bilirubin (0.2-1.3) mg/dL AST (14-36) U/L ALT (4-34) U/L Alkaline Phosphatase (38-126) U/L Total Protein (6.3-8.2) g/dL Albumin (3.5-5.0) g/dL Globulin (1.6-3.3) g/dL Albumin/Globulin Ratio (1.60-3.17) g/dL Stool Occult Blood (Negative) Coronavirus (PCR) (Not Detectd) 05/02/20 Range/Units 07:25 WBC (3.8-10.6) k/uL RBC (3.80-5.40) m/uL Hgb (11.4-16.0) gm/dL Hct (34.0-46.0) % MCV (80.0-100.0) fL MCH (25.0-35.0) pg MCHC (31.0-37.0) g/dL RDW (11.5-15.5) % Plt Count (150-450) k/uL MPV Immature Gran % (Auto) % Absolute Nucleated RBC (0.00-0.00) X 10*3/uL Neutrophils % % Lymphocytes % % Monocytes % % Eosinophils % % Basophils % % Immature Gran # (0.00-0.04) X 10*3/uL Neutrophils # (1.3-7.7) k/uL Lymphocytes # (1.0-4.8) k/uL Monocytes # (0-1.0) k/uL Eosinophils # (0-0.7) k/uL Basophils # (0-0.2) k/uL NRBC/100 WBC Diff (0.0-0.0) /100 WBCS Hypochromasia Anisocytosis Macrocytosis PT (9.0-12.0) sec INR (<1.2) Sodium (137-145) mmol/L Potassium (3.5-5.1) mmol/L Chloride (98-107) mmol/L Carbon Dioxide (22-30) mmol/L Anion Gap mmol/L BUN (7-17) mg/dL Creatinine (0.52-1.04) mg/dL Est GFR (CKD-EPI)AfAm (>60 ml/min/1.73 sqM) Est GFR (CKD-EPI)NonAf (>60 ml/min/1.73 sqM) BUN/Creatinine Ratio (12.00-20.00) Ratio Glucose (74-99) mg/dL POC Glucose (mg/dL) 107 H (75-99) mg/dL POC Glu Safety And Occupational Health Manager ID Rita Mejia Calcium (8.4-10.2) mg/dL Iron (50-170) ug/dL TIBC (228-460) ug/dL % Saturation (12.00-45.00) Ferritin (10.0-291.0) ng/mL Total Bilirubin (0.2-1.3) mg/dL AST (14-36) U/L ALT (4-34) U/L Alkaline Phosphatase (38-126) U/L Total Protein (6.3-8.2) g/dL Albumin (3.5-5.0) g/dL Globulin (1.6-3.3) g/dL Albumin/Globulin Ratio (1.60-3.17) g/dL Stool Occult Blood (Negative) Coronavirus (PCR) (Not Detectd) Disposition Clinical Impression: Hip pain, Osteoarthritis, Anemia Disposition: ADMITTED IP TO THIS [facility] Condition: Good
== END 2020-05-03 20:05 | DRG 553 ==
LOC: EC 16:50 → 5NMEDONC 19:59 → OBSVTOIN 05-02 10:37
PROVIDERS: ADMIT Internal Medicine; ATTEND Internal Medicine
PROC: 5A1D70Z Performance of Urinary Filtration, Intermittent, Less than 6 Hours Per Day (ICD-10-PCS; principal; 2020-05-02)
DX: M16.12 Unilateral primary osteoarthritis, left hip (principal); N18.6 End stage renal disease; K92.2 Gastrointestinal hemorrhage, unspecified; I13.2 Hypertensive heart and chronic kidney disease with heart failure and with stage 5 chronic kidney disease, or end stage renal disease; G93.49 Other encephalopathy; E87.1 Hypo-osmolality and hyponatremia; I42.9 Cardiomyopathy, unspecified; Z96.1 Presence of intraocular lens; K21.9 Gastro-esophageal reflux disease without esophagitis; J45.909 Unspecified asthma, uncomplicated; I50.9 Heart failure, unspecified; I25.10 Atherosclerotic heart disease of native coronary artery without angina pectoris; H91.90 Unspecified hearing loss, unspecified ear; F41.1 Generalized anxiety disorder; Z20.822 Contact with and (suspected) exposure to COVID-19; Z86.16 Personal history of COVID-19; F31.9 Bipolar disorder, unspecified; F03.90 Unspecified dementia, unspecified severity, without behavioral disturbance, psychotic disturbance, mood disturbance, and anxiety; E78.5 Hyperlipidemia, unspecified; E66.9 Obesity, unspecified; E11.65 Type 2 diabetes mellitus with hyperglycemia; E11.51 Type 2 diabetes mellitus with diabetic peripheral angiopathy without gangrene; E11.41 Type 2 diabetes mellitus with diabetic mononeuropathy; E11.319 Type 2 diabetes mellitus with unspecified diabetic retinopathy without macular edema; E11.22 Type 2 diabetes mellitus with diabetic chronic kidney disease; D63.1 Anemia in chronic kidney disease; E03.9 Hypothyroidism, unspecified; I48.91 Unspecified atrial fibrillation; Z83.3 Family history of diabetes mellitus; Z82.49 Family history of ischemic heart disease and other diseases of the circulatory system; Z99.3 Dependence on wheelchair; Z99.2 Dependence on renal dialysis; Z98.84 Bariatric surgery status; Z95.5 Presence of coronary angioplasty implant and graft; Z79.02 Long term (current) use of antithrombotics/antiplatelets; Z95.0 Presence of cardiac pacemaker; Z90.710 Acquired absence of both cervix and uterus; Z79.899 Other long term (current) drug therapy; Z79.890 Hormone replacement therapy; Z79.82 Long term (current) use of aspirin; I25.2 Old myocardial infarction; Z79.4 Long term (current) use of insulin; Z74.01 Bed confinement status; Z88.0 Allergy status to penicillin; Z88.8 Allergy status to other drugs, medicaments and biological substances; Z91.041 Radiographic dye allergy status; Z98.42 Cataract extraction status, left eye; Z98.41 Cataract extraction status, right eye
CPT/HCPCS: 36415; 73521; 80053; 82272; 82728; 83540; 83550; 85025; 85027; 85610; 87635; 90935; 96374; 96375; 96376; 99285

== ENCOUNTER 2020-05-29 12:26 | Inpatient (IN) | payer MEDICARE, OTHER ==
[2020-05-29] MEDS ORDERED: KETOROLAC 15 MG/ML 1 ML VIAL IVP STA (13:03)
--- NOTE | 2020-05-29 13:34 | XR ---
EXAMINATION TYPE: XR chest 2V DATE OF EXAM: 05/29/2020 COMPARISON: 04/10/2020 TECHNIQUE: 2 views submitted. HISTORY: Shortness of breath FINDINGS: There are bilateral pleural effusions with cardiomegaly and bibasilar infiltrate. There is a diffuse interstitial pattern. Cardiac device seen. Calcification the right axilla noted. Suggestion of previ ous lap band. Tubular structure overlying the left heart border is seen may be superficial location c orrelate clinically for confirmation. Could be related to coronary artery calcification Degenerative changes of the spine. IMPRESSION: 1. Diffuse pleural-parenchymal changes with bilateral consolidation and pleural effusion correlate fo r CHF. Otherwise, consider atypical interstitial pneumonia.
[2020-05-29 13:36] LABS: Albumin 3.1 g/dL (3.5-5.0); Magnesium 2.5 mg/dL (1.6-2.3); Total Bilirubin 0.9 mg/dL (0.2-1.3); Total Protein 6.5 g/dL (6.3-8.2)
[2020-05-29 13:45] LABS: Anisocytosis Slight; Basophils % (A) 1 %; Eosinophils # (A) 0.2 k/uL (0-0.7); Eosinophils % (A) 3 %; HCT 35.5 % (34.0-46.0); Hypochromasia Marked; Lymphocytes # (A) 0.5 k/uL (1.0-4.8); Lymphocytes % (A) 6 %; MCH 29.7 pg (25.0-35.0); MCHC 30.3 g/dL (31.0-37.0); MCV 98.2 fL (80.0-100.0); Macrocytosis Slight; Mean Platelet Volume 7.5; Monocytes # (A) 0.5 k/uL (0-1.0); Monocytes % (A) 6 %; Neutrophils % (A) 84 %; Platelet Count 283 k/uL (150-450); RBC 3.62 m/uL (3.80-5.40); RDW 17.5 % (11.5-15.5); WBC 8.3 k/uL (3.8-10.6)
[2020-05-29 13:49] LABS: Partial Thromboplastin Time 30.3 sec (22.0-30.0); Prothrombin Time 28.6 sec (9.0-12.0)
[2020-05-29 13:50] LABS: HGB 10.7 gm/dL (11.4-16.0)
[2020-05-29] MEDS ORDERED: DEXTROSE 50% SYRINGE 50 ML IVP STA (14:41)
[2020-05-29] MEDS ORDERED: CALCIUM CHLORIDE 100 MG/ML 10 ML SYRINGE IVP STA (14:41)
--- NOTE | 2020-05-29 14:41 | ED ---
General Adult HPI - General Chief complaint: Extremity Problem,Nontraumatic Stated complaint: Shoulder Pain Time Seen by Provider: 05/29/20 12:30 Source: patient, EMS, RN notes reviewed, old records reviewed Mode of arrival: EMS Limitations: no limitations - History of Present Illness Initial comments: This is a 64-year-old female who is a dialysis patient also has diabetes and high blood pressure. Patient comes in today and states that she missed her dialysis on Friday. Patient may complaint from the days that she has left shoulder pain and radiates into her back. Patient denies any chest pain. Patient states she is mildly short of breath. Patient denies any cough patient denies any fever chills. Patient denies any nausea vomiting or abdominal pain. Patient denies any recent exposure to cold. Patient states she has not been able to go to dialysis on Friday because she was feeling fatigued but had no specific symptoms. - Related Data Home Medications Medication Instructions Recorded Confirmed Atorvastatin [Lipitor] 80 mg PO HS 12/27/16 05/29/20 Acetaminophen Tab [Tylenol] 500 mg PO Q6H PRN 01/11/19 05/29/20 Docusate Sodium [Dok] 100 mg PO BID 01/11/19 05/29/20 Escitalopram [Lexapro] 20 mg PO DAILY 04/02/19 05/29/20 Folic Acid-Vit B Complex-Vit C 1 cap PO MOWEFR@2100 04/02/19 05/29/20 [Nephrocaps] Folic Acid-Vit B Complex-Vit C 1 cap PO SUTUTHSA@0900 04/02/19 05/29/20 [Nephrocaps] Clopidogrel [Plavix] 75 mg PO DAILY 04/09/19 05/29/20 Levothyroxine Sodium [Synthroid] 175 mcg PO DAILY@0600 11/05/19 05/29/20 Sodium Polystyrene Sulfonate 15 gm PO SUTUTH 11/05/19 05/29/20 Lidocaine-Prilocaine Cream [Emla 1 applic TOPICAL MOWEFR 11/23/19 05/29/20 Cream 2.5%/2.5%] Furosemide [Lasix] 80 mg PO DAILY@0600 01/28/20 05/29/20 Aspirin 81 mg PO DAILY 02/28/20 05/29/20 Sennosides [Senna] 8.6 mg PO DAILY PRN 02/28/20 05/29/20 carvediloL [Coreg] 3.125 mg PO BID 04/03/20 05/29/20 Insulin Lispro [humaLOG Kwikpen] 2 unit SQ HS 04/10/20 05/29/20 Ammonium Lactate Lotion 1 applic TOPICAL BID 04/28/20 05/29/20 [Lac-Hydrin 12% Lotion] Melatonin 10 mg PO HS 04/28/20 05/29/20 Nitroglycerin Sl Tabs [Nitrostat] 0.4 mg SL Q5M PRN 04/28/20 05/29/20 Calcium Acetate [Phoslo] 667 mg PO TID-W/MEALS 05/29/20 05/29/20 HYDROcodone/APAP 10-325MG [[place] 1 tab PO Q8H PRN 05/29/20 05/29/20 10-325] INSULIN ASPART (NovoLOG) [NovoLOG See Protocol SQ ACHS 05/29/20 05/29/20 (formulary)] Insulin Detemir (Levemir) [Levemir] 22 unit SQ HS 05/29/20 05/29/20 Lactulose 20 gm PO BID 05/29/20 05/29/20 Pantoprazole [Protonix] 40 mg PO DAILY@0600 05/29/20 05/29/20 Warfarin [Coumadin] 3 mg PO DAILY@1700 05/29/20 05/29/20 Previous Rx's Medication Instructions Recorded LORazepam [Ativan] 1 mg PO BID PRN #6 tab 05/03/20 Midodrine [ProAmatine] 5 mg PO BID PRN tab 05/03/20 Allergies Allergy/AdvReac Type Severity Reaction Status Date / Time adhesive Allergy Rash/Hives Verified 05/29/20 13:10 Penicillins Allergy Rash/Hives Verified 05/29/20 13:10 Iodinated Contrast Media AdvReac KIDNEY Verified 05/29/20 13:10 [Iodinated Contrast- Oral FAILURE and IV Dye] metformin AdvReac SUGAR Verified 05/29/20 13:10 LEVEL INCREASE Review of Systems ROS Statement: Those systems with pertinent positive or pertinent negative responses have been documented in the HPI. ROS Other: All systems not noted in ROS Statement are negative. Past Medical History Past Medical History: Atrial Flutter, Asthma, Coronary Artery Disease (CAD), Chest Pain / Angina, Heart Failure, Dementia, Diabetes Mellitus, Dialysis, GERD/Reflux, Hearing Disorder / Deafness, Hyperlipidemia, Hypertension, Liver Disease, Myocardial Infarction (AL), Osteoarthritis (OA), Pneumonia, Renal Disease, Thyroid Disorder, Vascular Disorder Additional Past Medical History / Comment(s): Pt recently admitted to [facility] on 04/03/20 with severe metabolic encephalopathy d/t ESRD with cardiac debitlity and cardiomyopathy. 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, hepatitis A which pt states was treated, pt is wheelchair bound, IBS, constipation, incontinent of stool, vertigo, PVD, pt believes she has a coccyx decubitus at this time, tinnitis bila terally, sinus problems, chronic back pain/sciatica/scoliosis, hypothyroid, UTIs, vitamin D defiency, falls, Last Myocardial Infarction Date:: 04/02/20 History of Any Multi-Drug Resistant Organisms: MRSA, VRE Date of last positivie culture/infection: 11/11/18-VRE; 09/27/17 MRSA MDRO Source:: Urine-VRE; Right Breast-MRSA Past Surgical History: Adenoidectomy, Appendectomy, Bariatric Surgery, Cholecystectomy, Heart Catheterization, Heart Catheterization With Stent, Hysterectomy, Orthopedic Surgery, Pacemaker, Tonsillectomy Additional Past Surgical History / Comment(s): D&C, ovarian wedge resection, EGDLap band/gastric sleeve, hemodialysis fistula/surgery to reposition, L shoulder arthroscopic surgery, excisional debridement R lower extremity, mary ateral cataract removals/lens implants. Past Anesthesia/Blood Transfusion Reactions: Motion Sickness, Postoperative Nausea & Vomiting (PONV) Additional Past Anesthesia/Blood Transfusion Reaction / Comment(s): blood transfusion-pt stated they gave her medication for a reaction but does'nt rememebr what the reaction was Date of Last Stent Placement:: 04/02/20 Type of Cardiac Device: Permanent Pacemaker Device Placement Date:: 04/20/18 Past Psychological History: Anxiety, Bipolar, Depression Smoking Status: Never smoker Past Alcohol Use History: None Reported Past Drug Use History: None Reported - Past Family History Mother Family Medical History: Congestive Heart Failure (CHF), Diabetes Mellitus, Hypertension Father History Unknown: Yes Family Medical History: Diabetes Mellitus Brother(s) Family Medical History: Diabetes Mellitus, Hyperlipidemia, Renal Disease Additional Family Medical History / Comment(s): chronic kidney disease General Exam - General Exam Comments Initial Comments: GENERAL: Patient is well-developed and well-nourished. Patient is nontoxic and well- hydrated and is in mild distress. ENT: Neck is soft and supple. No significant lymphadenopathy is noted. Oropharynx is clear. Moist mucous membranes. Neck has full range of motion without eliciting any pain. EYES: The sclera were anicteric and conjunctiva were pink and moist. Extraocular movements were intact and pupils were equal round and reactive to light. PULMONARY: Unlabored respirations. Good breath sounds bilaterally. No audible rales rhonchi or wheezing was noted. CARDIOVASCULAR: There is a regular rate and rhythm without any murmurs gallops or rubs. ABDOMEN: Soft and nontender with normal bowel sounds. SKIN: Skin is clear with no lesions or rashes and otherwise unremarkable. NEUROLOGIC: Patient is alert and oriented x3. Cranial nerves II through XII are grossly intact. Motor and sensory are also intact. Normal speech, volume and content. Symmetrical smile. MUSCULOSKELETAL: Normal extremities with adequate strength and full range of motion. LYMPHATICS: No significant lymphadenopathy is noted PSYCHIATRIC: Normal psychiatric evaluation. Limitations: no limitations Course Vital Signs 05/29/20 05/29/20 05/29/20 12:28 13:21 14:28 Temperature 98.3 F Pulse Rate 60 59 L 92 Respiratory 20 18 20 Rate Blood Pressure 123/52 129/57 123/55 O2 Sat by Pulse 96 100 100 Oximetry Medical Decision Making - Medical Decision Making EKG shows paced rhythm at 60 bpm QRS is 204 QT interval is 554 QTC is 554. Patient's potassium was elevated so the patient received insulin D50 bicarbonate and calcium chloride. Spoke with Dr. Gar he agreed to admit the patient admitted the patient I consult nephrology. - Lab Data Result diagrams: 05/29/20 13:12 05/29/20 13:12 Lab Results 05/29/20 05/29/20 05/29/20 Range/Units 13:12 13:12 13:12 WBC 8.3 (3.8-10.6) k/uL RBC 3.62 L (3.80-5.40) m/uL Hgb 10.7 L D (11.4-16.0) gm/dL Hct 35.5 (34.0-46.0) % MCV 98.2 (80.0-100.0) fL MCH 29.7 (25.0-35.0) pg MCHC 30.3 L (31.0-37.0) g/dL RDW 17.5 H (11.5-15.5) % Plt Count 283 (150-450) k/uL MPV 7.5 Neutrophils % 84 % Lymphocytes % 6 % Monocytes % 6 % Eosinophils % 3 % Basophils % 1 % Neutrophils # 7.0 (1.3-7.7) k/uL Lymphocytes # 0.5 L (1.0-4.8) k/uL Monocytes # 0.5 (0-1.0) k/uL Eosinophils # 0.2 (0-0.7) k/uL Basophils # 0.0 (0-0.2) k/uL Hypochromasia Marked Anisocytosis Slight Macrocytosis Slight PT 28.6 H (9.0-12.0) sec INR 3.0 H (<1.2) APTT 30.3 H (22.0-30.0) sec Sodium 128 L (137-145) mmol/L Potassium 7.0 H* (3.5-5.1) mmol/L Chloride 91 L (98-107) mmol/L Carbon Dioxide 26 (22-30) mmol/L Anion Gap 11 mmol/L BUN 56 H (7-17) mg/dL Creatinine 6.01 H (0.52-1.04) mg/dL Est GFR (CKD-EPI)AfAm 8 (>60 ml/min/1.73 sqM) Est GFR (CKD-EPI)NonAf 7 (>60 ml/min/1.73 sqM) Glucose 219 H (74-99) mg/dL Calcium 9.0 (8.4-10.2) mg/dL Magnesium 2.5 H (1.6-2.3) mg/dL Total Bilirubin 0.9 (0.2-1.3) mg/dL AST 53 H (14-36) U/L ALT 50 H (4-34) U/L Alkaline Phosphatase 143 H (38-126) U/L Troponin I (0.000-0.034) ng/mL NT-Pro-B Natriuret Pep pg/mL Total Protein 6.5 (6.3-8.2) g/dL Albumin 3.1 L (3.5-5.0) g/dL 05/29/20 05/29/20 Range/Units 13:12 13:12 WBC (3.8-10.6) k/uL RBC (3.80-5.40) m/uL Hgb (11.4-16.0) gm/dL Hct (34.0-46.0) % MCV (80.0-100.0) fL MCH (25.0-35.0) pg MCHC (31.0-37.0) g/dL RDW (11.5-15.5) % Plt Count (150-450) k/uL MPV Neutrophils % % Lymphocytes % % Monocytes % % Eosinophils % % Basophils % % Neutrophils # (1.3-7.7) k/uL Lymphocytes # (1.0-4.8) k/uL Monocytes # (0-1.0) k/uL Eosinophils # (0-0.7) k/uL Basophils # (0-0.2) k/uL Hypochromasia Anisocytosis Macrocytosis PT (9.0-12.0) sec INR (<1.2) APTT (22.0-30.0) sec Sodium (137-145) mmol/L Potassium (3.5-5.1) mmol/L Chloride (98-107) mmol/L Carbon Dioxide (22-30) mmol/L Anion Gap mmol/L BUN (7-17) mg/dL Creatinine (0.52-1.04) mg/dL Est GFR (CKD-EPI)AfAm (>60 ml/min/1.73 sqM) Est GFR (CKD-EPI)NonAf (>60 ml/min/1.73 sqM) Glucose (74-99) mg/dL Calcium (8.4-10.2) mg/dL Magnesium (1.6-2.3) mg/dL Total Bilirubin (0.2-1.3) mg/dL AST (14-36) U/L ALT (4-34) U/L Alkaline Phosphatase (38-126) U/L Troponin I 0.088 H* (0.000-0.034) ng/mL NT-Pro-B Natriuret Pep 19545 pg/mL Total Protein (6.3-8.2) g/dL Albumin (3.5-5.0) g/dL Critical Care Time Critical Care Time: Yes Total Critical Care Time: 35 Disposition Clinical Impression: Pulmonary edema, Missed dialysis, Hyperkalemia Disposition: ADMITTED IP TO THIS HOSP Referrals: Kimberli Gar MD [Primary Care Provider] - 1-2 days Time of Disposition: 14:46
[2020-05-29] MEDS ORDERED: SODIUM BICARB 8.4% 50 ML SYR (1 MEQ/ML) IV STA (14:42)
[2020-05-29] MEDS ORDERED: INSULIN REGULAR 100 UNIT/ML VIAL IV ONE (14:42)
[2020-05-29] MEDS ORDERED: LORazepam 1 MG TAB PO PRN (18:01)
[2020-05-29] MEDS ORDERED: NITROGLYCERIN SL TABS 0.4 MG TAB SUBLINGUAL PRN (18:01)
[2020-05-29] MEDS ORDERED: SENNOSIDES 8.6 MG TAB PO PRN (18:01)
[2020-05-29] MEDS ORDERED: ACETAMINOPHEN TAB 500 MG TAB PO PRN (18:01)
[2020-05-29] MEDS ORDERED: MIDODRINE 5 MG TAB PO PRN (18:01)
[2020-05-29] MEDS ORDERED: LIDOCAINE-PRILOCAINE 2.5-2.5% CREAM 5 GM TUBE TOPICAL SCH (18:15)
[2020-05-29] MEDS: HYDROcodone/APAP 10-325MG 1 EACH TAB PO PRN (20:38)
[2020-05-29] MEDS: WARFARIN 3 MG TAB PO SCH (20:39)
[2020-05-29] MEDS ORDERED: FOLIC ACID-VIT B COMPLEX-VIT C 1 CAP PO SCH (21:00)
[2020-05-29 22:33] LABS: Glucose,Whole Blood 224 mg/dL (75-99)
[2020-05-29] MEDS: ATORVASTATIN 80 MG TAB PO SCH (22:57)
[2020-05-29] MEDS: DOCUSATE 100 MG CAP PO SCH (22:57)
[2020-05-29] MEDS: LACTULOSE 20 GM/30 ML CUP PO SCH (22:57)
[2020-05-29] MEDS: carvediloL 3.125 MG TAB PO SCH (22:58)
[2020-05-29] MEDS: INSULIN DETEMIR (LEVEMIR) 100 UNIT/ML SYR SQ SCH (23:48)
[2020-05-29] MEDS: INSULIN ASPART (NovoLOG) 100 UNIT/ML VIAL SQ SCH ×2 (23:49)
[2020-05-30] MEDS: MELATONIN 5 MG TABLET PO SCH ×2 (00:28→21:12)
[2020-05-30] MEDS: AMMONIUM LACTATE 12% LOTION 225 GM BTL TOPICAL SCH ×3 (00:28→21:11)
[2020-05-30 02:09] LABS: Hepatitis B Surface AB- Quant 3.9 mIU/mL; Hepatitis B Surface Antibody Non-Reactive (Non-Reactive); Hepatitis B Surface Antigen Non-Reactive (Non-Reactive)
[2020-05-30] MEDS: CALCIUM ACETATE 667 MG TAB PO SCH ×3 (06:21→17:32)
[2020-05-30] MEDS: FUROSEMIDE 80 MG TAB PO SCH (06:22)
[2020-05-30] MEDS: carvediloL 3.125 MG TAB PO SCH ×2 (06:22→18:26)
[2020-05-30] MEDS: LEVOTHYROXINE 88 MCG TAB PO SCH (06:22)
[2020-05-30] MEDS: PANTOPRAZOLE 40 MG TABLET PO SCH (06:22)
[2020-05-30 08:40] LABS: Anisocytosis Slight; HCT 30.2 % (34.0-46.0); HGB 9.4 gm/dL (11.4-16.0); Hypochromasia Marked; MCH 31.2 pg (25.0-35.0); MCHC 31.2 g/dL (31.0-37.0); MCV 100.1 fL (80.0-100.0); Macrocytosis Slight; Mean Platelet Volume 8.4; Platelet Count 225 k/uL (150-450); RBC 3.02 m/uL (3.80-5.40); RDW 17.4 % (11.5-15.5); WBC 8.4 k/uL (3.8-10.6)
[2020-05-30 08:45] LABS: Albumin 2.5 g/dL (3.5-5.0); Calcium 8.6 mg/dL (8.4-10.2); Potassium 4.4 mmol/L (3.5-5.1); Total Bilirubin 0.7 mg/dL (0.2-1.3); Total Protein 5.7 g/dL (6.3-8.2)
--- NOTE | 2020-05-30 08:54 | P.PN ---
Subjective Progress Note Date: 05/30/20 This is a 64-year-old obese female patient of paty, Dr. JAE Jc, and Dr. Talley with multiple medical problem was known to have end-stage kidney disease on hemodialysis Friday, coronary artery disease and prior coronary artery stenting, diabetes type 2 insulin requiring, dyslipidemia, history of permanent pacemaker. Patient is a long-term resident at [facility] developed to have COVID-19 during an outbreak that affected [facility] and she was sent to [facility] for evaluation and treatment and she eventually was sent back to [facility], patient was just recently discharged from [facility] after she was admitted for metabolic encepha lopathy due to uremia and cardiac debility and had echocardiogram that showed LVF 30-35 % and she was sen by cardiology and no new recommendations were made, patient has been residing at [facility], she was seen last Friday and she had missed her dialysis because she was feeling fatigue and tired at that time had laboratory evaluation that showed no significant abnormalities but slight elevation of troponin at that time 0.098, patient also was complaining of severe constipation she was given lactulose 20 g orally twice every day along with stool softener, and 24 hours later she was feeling better she had a good bowel movement, patient was supposed to go to hemodialysis today however she did not go because of generalized weakness she ended up coming to the ER at [facility] for evaluation she was found to be hyponatremic with a sodium of 129 and potassium 7.1, she was given treatment in the ER and she is to get her to hemodialysis, she will be admitted to the hospital for evaluation by nephrology. 05/30: Patient just been moved up to the cardiac stepdown unit from the emergency center. Patient states that she is feeling better today, status post hemodialysis treatment yesterday in the ER. She denies having any cough. She has not had a bowel movement today. She is noted to have decreased lower extremity edema. Patient has been afebrile, heart rate in the 50s and 60s, blood pressure 100/46, pulse ox 97% on 2 L nasal cannula. This morning's blood work reveals hemoglobin of 9.4, INR 3, BUN 37, creatinine 4.05, potassium 4.4. Blood sugars are in the low 200s. AST 49, ALT 53. Discharge plan will be to return to [facility] most likely tomorrow. Objective - Vital Signs Vital signs: Vital Signs Temp 98.9 F 05/30/20 04:00 Pulse 59 L 05/30/20 04:00 Resp 18 05/30/20 04:00 BP 100/46 05/30/20 04:00 Pulse Ox 97 05/30/20 04:00 Intake & Output 05/29/20 05/30/20 05/30/20 18:59 06:59 18:59 Output Total 700 Balance -700 Weight 98 kg 98 kg Output: Hemodialysis 700 - Exam Review of Systems Constitutional: Reports anorexia, Reports chronic pain, Reports fatigue, Reports lethargy, Reports malaise, Reports weakness, Reports weight loss Eyes: denies blurred vision, denies bulging eye, denies decreased vision Ears: deny: decreased hearing Ears, nose, mouth and throat: Denies dysphagia, Denies neck lump, Denies sore throat Cardiovascular: Reports decreased exercise tolerance, Reports dyspnea on exertion, Reports high blood pressure, Reports shortness of breath, Denies chest pain, Denies leg edema, Denies lightheadedness, Denies rapid heart beat, Denies syncope Respiratory: Reports dyspnea, Denies congestion, Denies cough, Denies home ox ygen, Denies sleep apnea, Denies snoring, Denies wheezing Gastrointestinal: Reports abdominal pain, Reports change in bowel habits, Reports constipation, Reports loss of appetite, Reports nausea, Denies bloating, Denies diarrhea, Denies excessive gas, Denies heartburn, Denies hematemesis, Denies melena, Denies vomiting Genitourinary: Reports nocturia, Denies dysuria Menstruation: Reports postmenopausal Musculoskeletal: Reports atrophy, Reports frequent falls, Reports gait dysfunction, Reports loss of height, Reports low back pain, Reports neck pain, Reports neck stiffness Musculoskeletal: left: shoulder pain, shoulder stiffness, absent: ankle pain, ankle stiffness, ankle swelling, elbow pain, elbow stiffness, elbow swelling, foot pain, foot stiffness, foot swelling, hand pain, hand stiffness, hand swelling, hip pain, hip stiffness, hip swelling, knee pain, knee stiffness, knee swelling, shoulder swelling, wrist pain, wrist stiffness, wrist swelling Integumentary: Denies pruritus, Denies rash Neurological: Reports balance difficulties, Reports confusion, Reports gait dysfunction, Reports headaches, Reports numbness, Reports sensory deficit, Reports weakness Psychiatric: Reports anxiety, Reports depression, Reports memory loss, Reports sadness/tearfulness, Reports sleep disturbances, Denies suicidal ideation Endocrine: Denies fatigue, Denies weight change Physical examination: General: 64-year-old female who is laying down in bed appears to be very weak does not appear to be in acute distress at this point in time. HEENT: Head is atraumatic, normocephalic, pupils were equal round reactive to light and recommendation, extraocular muscle movement were intact, sclera nonicteric, conjunctivae were pale, mucous membranes of the mouth are somewhat dry. Neck: Supple, no JVP, decreased carotid upstroke bilaterally, no lymphadenopathy. Chest: Decreased breath sounds at the bases, few rhonchi, no extremity wheezes, no chest wall tenderness, no intercostal retractions. Heart: First heart sound is depressed, second heart sounds normal, there is systolic ejection murmur 2/6 located in the left sternal border. Abdomen: Soft, nontender, nondistended, positive bowel sounds. Extremities: There is trace edema no calf tenderness DP +1 bilaterally. Neurologic examination: Patient is awake alert and oriented 2, cranial nerves III-12 appear grossly intact, muscle power were 4 out of 5 in upper extremities and 3 out of 5 in bilateral lower extremities, deep tendon reflexes were depressed bilaterally, there is also neuropathic changes to both lower extremity with decreased sensation. - Labs CBC & Chem 7: 05/30/20 03:49 05/30/20 03:49 Labs: Abnormal Lab Results - Last 24 Hours (Table) 05/29/20 05/29/20 05/29/20 Range/Units 13:12 13:12 13:12 RBC 3.62 L (3.80-5.40) m/uL Hgb 10.7 L D (11.4-16.0) gm/dL Hct (34.0-46.0) % MCV (80.0-100.0) fL MCHC 30.3 L (31.0-37.0) g/dL RDW 17.5 H (11.5-15.5) % Lymphocytes # 0.5 L (1.0-4.8) k/uL PT 28.6 H (9.0-12.0) sec INR 3.0 H (<1.2) APTT 30.3 H (22.0-30.0) sec Sodium 128 L (137-145) mmol/L Potassium 7.0 H* (3.5-5.1) mmol/L Chloride 91 L (98-107) mmol/L BUN 56 H (7-17) mg/dL Creatinine 6.01 H (0.52-1.04) mg/dL Glucose 219 H (74-99) mg/dL POC Glucose (mg/dL) (75-99) mg/dL Magnesium 2.5 H (1.6-2.3) mg/dL AST 53 H (14-36) U/L ALT 50 H (4-34) U/L Alkaline Phosphatase 143 H (38-126) U/L Troponin I (0.000-0.034) ng/mL Total Protein (6.3-8.2) g/dL Albumin 3.1 L (3.5-5.0) g/dL 05/29/20 05/29/20 05/30/20 Range/Units 13:12 22:31 03:49 RBC (3.80-5.40) m/uL Hgb (11.4-16.0) gm/dL Hct (34.0-46.0) % MCV (80.0-100.0) fL MCHC (31.0-37.0) g/dL RDW (11.5-15.5) % Lymphocytes # (1.0-4.8) k/uL PT 29.0 H (9.0-12.0) sec INR 3.0 H (<1.2) APTT (22.0-30.0) sec Sodium (137-145) mmol/L Potassium (3.5-5.1) mmol/L Chloride (98-107) mmol/L BUN (7-17) mg/dL Creatinine (0.52-1.04) mg/dL Glucose (74-99) mg/dL POC Glucose (mg/dL) 224 H (75-99) mg/dL Magnesium (1.6-2.3) mg/dL AST (14-36) U/L ALT (4-34) U/L Alkaline Phosphatase (38-126) U/L Troponin I 0.088 H* (0.000-0.034) ng/mL Total Protein (6.3-8.2) g/dL Albumin (3.5-5.0) g/dL 05/30/20 05/30/20 Range/Units 03:49 03:49 RBC 3.02 L (3.80-5.40) m/uL Hgb 9.4 L (11.4-16.0) gm/dL Hct 30.2 L (34.0-46.0) % MCV 100.1 H (80.0-100.0) fL MCHC (31.0-37.0) g/dL RDW 17.4 H (11.5-15.5) % Lymphocytes # (1.0-4.8) k/uL PT (9.0-12.0) sec INR (<1.2) APTT (22.0-30.0) sec Sodium 132 L (137-145) mmol/L Potassium (3.5-5.1) mmol/L Chloride 95 L (98-107) mmol/L BUN 37 H (7-17) mg/dL Creatinine 4.05 H (0.52-1.04) mg/dL Glucose 203 H (74-99) mg/dL POC Glucose (mg/dL) (75-99) mg/dL Magnesium (1.6-2.3) mg/dL AST 49 H (14-36) U/L ALT 53 H (4-34) U/L Alkaline Phosphatase (38-126) U/L Troponin I (0.000-0.034) ng/mL Total Protein 5.7 L (6.3-8.2) g/dL Albumin 2.5 L (3.5-5.0) g/dL Assessment and Plan Assessment: Assessment and Plan: 1. Hyponatremia with hyperkalemia secondary to missed dialysis on Friday and on Friday. Patient is status post hemodialysis yesterday, nephrology consult appreciated, patient was given treatment for hyperkalemia and emergency department she will be admitted to the hospital for further evaluation.. 2. Recent NSTEMI. we will continue with ASA 81 mg orally daily, PLavix 75 mg orally daily and Lipitor 80 mg orally daily and add small dose of Coreg 3.125 mg orally bid, cardiology evaluation, we will check Echocardiogram for evaluation of her LVF and wall motion. 3. Chronic fatigue with generalized weakness. Likely related to combination of cardiac debility and chronic kidney disease due to end-stage renal disease on hemodialysis. Continue with cardiac and renal replacement therapy. 4. End-stage renal disease on hemodialysis Friday. Nephrology consult appreciated Continue Amandeep Mendez. 5. History of coronary artery disease with prior stenting of the LAD. We will continue the patient on aspirin 81 mg once every day, Plavix 75 mg orally once every day, Lipitor 80 mg once every day, added Coreg 3.125 mg orally bid. 6. Hyponatremia likely related to hypervolemia patient did miss her dialysis yesterday. She will go for another hemodialysis today. 7. Acute on chronic anemia due to chronic kidney disease and possible GI loss. 2 Protonix 40 mg IV push every 24 hours, GI consultation. 8. Hypertension and hypertensive cardiovascular disease. Continue amlodipine2.5 mg daily and add Coreg 3.125 mg orally bid. 9. Hyperlipidemia. Continue atorvastatin 80 mg at bedtime 10. Gastroesophageal reflux disease and GI prophylaxis. we will continue with Protonix 40 mg orally daily. 11. Diabetes mellitus type 2, insulin requiring. We will continue Levemir 18 units at bedtime along with the Humalog per sliding scale insulin. 12. Generalized anxiety disorder and recurrent depression. Continue Lexapro 20 mg orally once every day as well as Ativan 1 mg orally twice every day. 13. Hypothyroidism. Continue patient on levothyroxine 175 g orally once every day. 14. history of symptomatic Bradycardia and recently was diagnosed with atrial fibrillation post PPM amd currently fully anticoagulated. 15. DVT prophylaxis. we will contiue with coumadin INR is therapeutic. 16. GI prophylaxis. we will contiue with Protonix 40 mg 17. Medical debility. Physical therapy evaluation. 18. Patient is full code. Discharge plan: Return to [facility] tomorrow.
[2020-05-30] MEDS ORDERED: SODIUM POLYSTYRENE SULFONATE 15 GM/60 ML BOTTLE PO SCH (09:00)
[2020-05-30] MEDS ORDERED: FOLIC ACID-VIT B COMPLEX-VIT C 1 CAP PO SCH (09:00)
[2020-05-30] MEDS: CLOPIDOGREL 75 MG TAB PO SCH (09:38)
[2020-05-30] MEDS: INSULIN ASPART (NovoLOG) 100 UNIT/ML VIAL SQ SCH ×7 (09:38→21:11)
[2020-05-30] MEDS: ESCITALOPRAM 20 MG TAB PO SCH (09:38)
[2020-05-30] MEDS: ASPIRIN 81 MG PO SCH (09:38)
[2020-05-30] MEDS: DOCUSATE 100 MG CAP PO SCH ×2 (09:39→21:11)
[2020-05-30] MEDS: LACTULOSE 20 GM/30 ML CUP PO SCH ×2 (09:39→21:11)
[2020-05-30 09:55] LABS: Glucose,Whole Blood 158 mg/dL (75-99)
[2020-05-30 11:37] LABS: Glucose,Whole Blood 145 mg/dL (75-99)
--- NOTE | 2020-05-30 13:29 | P.NPCON ---
History of Present Illness - Reason for Consult end stage renal disease - History of Present Illness Reason for consultation: End-stage renal disease History of present illness: Patient is a 64-year-old female seen in renal consultation for end-stage renal disease. She is maintained on hemodialysis on Friday schedule. Patient went for hemodialysis yesterday but was sent to the hospital due to pain in her left arm with radiation to her back. She currently denies any chest pain or shortness of breath. Her pain overall is improved. Her potassium level was elevated at 7 yesterday and is 4.4 today. She completed hemodialysis yesterday with about 700 mL ultrafiltration. Currently having lunch. No vomiting or diarrhea. No fever or chills. No abdominal pain. She is currently saturating 93% on room air. She currently has no active complaints. Vital signs are stable. General: The patient appeared well nourished and normally developed. HEENT: Head exam is unremarkable. Neck is without jugular venous distension. LUNGS: Breath sounds decreased. HEART: Rate and Rhythm are regular. ABDOMEN: Soft, nontender. Obese. EXTREMITITES: 1+ edema. Chronic skin changes noted. No drainage. Past Medical History Past Medical History: Atrial Flutter, Asthma, Coronary Artery Disease (CAD), Chest Pain / Angina, Heart Failure, Dementia, Diabetes Mellitus, Dialysis, GERD/Reflux, Hearing Disorder / Deafness, Hyperlipidemia, Hypertension, Liver Disease, Myocardial Infarction (TN), Osteoarthritis (OA), Pneumonia, Renal Disease, Thyroid Disorder, Vascular Disorder Additional Past Medical History / Comment(s): Pt recently admitted to [facility] on 04/03/20 with severe metabolic encephalopathy d/t ESRD with cardiac debitlity and cardiomyopathy. 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, hepatitis A which pt states was treated, pt is wheelchair bound, IBS, constipation, incontinent of stool, vertigo, PVD, pt believes she has a coccyx decubitus at this time, tinnitis bilaterally, sinus problems, chronic back pain/sciatica/scoliosis, hypothyroid, UTIs, vitamin D defiency, falls, Last Myocardial Infarction Date:: 04/02/20 History of Any Multi-Drug Resistant Organisms: MRSA, VRE Date of last positivie culture/infection: 11/11/18-VRE; 09/27/17 MRSA MDRO Source:: Urine-VRE; Right Breast-MRSA Past Surgical History: Adenoidectomy, Appendectomy, Bariatric Surgery, Cholecystectomy, Heart Catheterization, Heart Catheterization With Stent, Hysterectomy, Orthopedic Surgery, Pacemaker, Tonsillectomy Additional Past Surgical History / Comment(s): D&C, ovarian wedge resection, EGDLap band/gastric sleeve, hemodialysis fistula/surgery to reposition, L shoulder arthroscopic surgery, excisional debridement R lower extremity, bilateral cataract removals/lens implants. Past Anesthesia/Blood Transfusion Reactions: Motion Sickness, Postoperative Nausea & Vomiting (PONV) Additional Past Anesthesia/Blood Transfusion Reaction / Comment(s): blood transfusion-pt stated they gave her medication for a reaction but does'nt rememebr what the reaction was Date of Last Stent Placement:: 04/02/20 Type of Cardiac Device: Permanent Pacemaker Device Placement Date:: 04/20/18 Past Psychological History: Anxiety, Bipolar, Depression Additional Psychological History / Comment(s): Pt resides at [facility] and is wheel chair bound. She requires a 2 person transfer or requires a cuate lift Smoking Status: Never smoker Past Alcohol Use History: None Reported Additional Past Alcohol Use History / Comment(s): She does not drive. She has a glucometer and insulin pump. She is a lifelong nonsmoker. She denies any alcohol use. No service. No international travel. BEEN RESIDING AT [facility] FOR LAST 2 YEARS Past Drug Use History: None Reported - Past Family History Mother Family Medical History: Congestive Heart Failure (CHF), Diabetes Mellitus, Hypertension Father History Unknown: Yes Family Medical History: Diabetes Mellitus Brother(s) Family Medical History: Diabetes Mellitus, Hyperlipidemia, Renal Disease Additional Family Medical History / Comment(s): chronic kidney disease Medications and Allergies Home Medications Medication Instructions Recorded Confirmed Type Atorvastatin [Lipitor] 80 mg PO HS 12/27/16 05/29/20 History Acetaminophen Tab [Tylenol] 500 mg PO Q6H PRN 01/11/19 05/29/20 History Docusate Sodium [Dok] 100 mg PO BID 01/11/19 05/29/20 History Escitalopram [Lexapro] 20 mg PO DAILY 04/02/19 05/29/20 History Folic Acid-Vit B Complex-Vit C 1 cap PO MOWEFR@2100 04/02/19 05/29/20 History [Nephrocaps] Folic Acid-Vit B Complex-Vit C 1 cap PO SUTUTHSA@0900 04/02/19 05/29/20 History [Nephrocaps] Clopidogrel [Plavix] 75 mg PO DAILY 04/09/19 05/29/20 History Levothyroxine Sodium [Synthroid] 175 mcg PO DAILY@0600 11/05/19 05/29/20 History Sodium Polystyrene Sulfonate 15 gm PO SUTUTH 11/05/19 05/29/20 History Lidocaine-Prilocaine Cream [Emla 1 applic TOPICAL MOWEFR 11/23/19 05/29/20 History Cream 2.5%/2.5%] Furosemide [Lasix] 80 mg PO DAILY@0600 01/28/20 05/29/20 History Aspirin 81 mg PO DAILY 02/28/20 05/29/20 History Sennosides [Senna] 8.6 mg PO DAILY PRN 02/28/20 05/29/20 History carvediloL [Coreg] 3.125 mg PO BID 04/03/20 05/29/20 History Insulin Lispro [humaLOG Kwikpen] 2 unit SQ HS 04/10/20 05/29/20 History Ammonium Lactate Lotion 1 applic TOPICAL BID 04/28/20 05/29/20 History [Lac-Hydrin 12% Lotion] Melatonin 10 mg PO HS 04/28/20 05/29/20 History Nitroglycerin Sl Tabs [Nitrostat] 0.4 mg SL Q5M PRN 04/28/20 05/29/20 History LORazepam [Ativan] 1 mg PO BID PRN #6 tab 05/03/20 05/29/20 Rx Midodrine [ProAmatine] 5 mg PO BID PRN tab 05/03/20 05/29/20 Rx Calcium Acetate [Phoslo] 667 mg PO TID-W/MEALS 05/29/20 05/29/20 History HYDROcodone/APAP 10-325MG [[place] 1 tab PO Q8H PRN 05/29/20 05/29/20 History 10-325] INSULIN ASPART (NovoLOG) [NovoLOG See Protocol SQ ACHS 05/29/20 05/29/20 History (formulary)] Insulin Detemir (Levemir) [Levemir] 22 unit SQ HS 05/29/20 05/29/20 History Lactulose 20 gm PO BID 05/29/20 05/29/20 History Pantoprazole [Protonix] 40 mg PO DAILY@0600 05/29/20 05/29/20 History Warfarin [Coumadin] 3 mg PO DAILY@1700 05/29/20 05/29/20 History Allergies Allergy/AdvReac Type Severity Reaction Status Date / Time adhesive Allergy Rash/Hives Verified 05/29/20 13:10 Penicillins Allergy Rash/Hives Verified 05/29/20 13:10 Iodinated Contrast Media AdvReac KIDNEY Verified 05/29/20 13:10 [Iodinated Contrast- Oral FAILURE and IV Dye] metformin AdvReac SUGAR Verified 05/29/20 13:10 LEVEL INCREASE Physical Exam Vitals: Vital Signs Temp Pulse Pulse Resp BP BP Pulse Ox 05/30/20 08:00 98.7 F 58 L 93/47 93 L 05/30/20 04:00 98.9 F 59 L 18 100/46 97 05/30/20 02:00 60 18 05/30/20 00:00 98.3 F 60 18 77/30 95 05/29/20 21:59 97.6 F 60 18 93/39 96 05/29/20 20:41 98.0 F 20 92/65 05/29/20 20:00 97.6 F 61 18 80/35 96 05/29/20 17:55 60 20 112/56 95 05/29/20 14:28 92 20 123/55 100 05/29/20 13:21 59 L 18 129/57 100 Intake and Output 05/29/20 05/30/20 05/30/20 22:59 06:59 14:59 Output Total 700 Balance -700 Output: Hemodialysis 700 Other: Weight 98 kg Results - Lab Results Most recent lab results Calcium 8.6 mg/dL (8.4-10.2) 05/30/20 03:49 Magnesium 2.5 mg/dL (1.6-2.3) H 05/29/20 13:12 05/30/20 03:49 05/30/20 03:49 Assessment and Plan Plan: Assessment: 1. End-stage renal disease maintained on hemodialysis on Friday ay schedule. 2. Hyperkalemia secondary to chronic kidney disease and missed dialysis treatment. 3. Hyponatremia secondary to chronic kidney disease. Improved postdialysis. 4. Diabetes mellitus. 5. Chronic kidney disease mineral bone disease maintained on PhosLo. 6. Generalized debility. Plan: Hemodialysis tomorrow. Increase midodrine to 5 mg 3 times daily. To be held for systolic blood p ressure greater than 110. Check morning cortisol level. Maintain oral Lasix. Thank you for the consultation. I will continue to follow the patient with you during her hospital stay.
[2020-05-30 16:40] LABS: Glucose,Whole Blood 118 mg/dL (75-99)
[2020-05-30] MEDS: MIDODRINE 5 MG TAB PO SCH (17:32)
[2020-05-30] MEDS: WARFARIN 3 MG TAB PO SCH (18:26)
[2020-05-30 21:02] LABS: Glucose,Whole Blood 146 mg/dL (75-99)
[2020-05-30] MEDS: ATORVASTATIN 80 MG TAB PO SCH (21:11)
[2020-05-30] MEDS: INSULIN DETEMIR (LEVEMIR) 100 UNIT/ML SYR SQ SCH (21:11)
[2020-05-30] MEDS: HYDROcodone/APAP 10-325MG 1 EACH TAB PO PRN (22:44)
[2020-05-31 06:24] LABS: Glucose,Whole Blood 102 mg/dL (75-99)
[2020-05-31] MEDS: INSULIN ASPART (NovoLOG) 100 UNIT/ML VIAL SQ SCH ×4 (06:30→12:43)
[2020-05-31] MEDS: CALCIUM ACETATE 667 MG TAB PO SCH ×2 (06:32→11:50)
[2020-05-31] MEDS: MIDODRINE 5 MG TAB PO SCH ×2 (06:32→11:50)
[2020-05-31] MEDS: PANTOPRAZOLE 40 MG TABLET PO SCH (06:32)
[2020-05-31] MEDS: LEVOTHYROXINE 88 MCG TAB PO SCH (06:32)
[2020-05-31] MEDS: FUROSEMIDE 80 MG TAB PO SCH (06:32)
[2020-05-31] MEDS: carvediloL 3.125 MG TAB PO SCH (06:32)
[2020-05-31 07:27] LABS: Anisocytosis Slight; HCT 33.1 % (34.0-46.0); HGB 10.2 gm/dL (11.4-16.0); Hypochromasia Marked; MCH 30.9 pg (25.0-35.0); MCHC 30.8 g/dL (31.0-37.0); MCV 100.5 fL (80.0-100.0); Macrocytosis Moderate; Mean Platelet Volume 7.5; Platelet Count 262 k/uL (150-450); RBC 3.29 m/uL (3.80-5.40); RDW 17.6 % (11.5-15.5); WBC 7.2 k/uL (3.8-10.6)
[2020-05-31 07:45] LABS: Albumin 2.6 g/dL (3.5-5.0); Calcium 8.9 mg/dL (8.4-10.2); Potassium 4.1 mmol/L (3.5-5.1); Total Bilirubin 0.7 mg/dL (0.2-1.3)
[2020-05-31 07:46] LABS: INR 2.9 (<1.2); Prothrombin Time 27.6 sec (9.0-12.0)
--- NOTE | 2020-05-31 08:50 | P.DS ---
Providers Date of admission: 05/29/20 14:47 Expected date of discharge: 05/31/20 Attending physician: Kimberli Gar Consults: 05/29/20 14:47 Consult Physician Urgent Consulting Provider: Tate Souza Consult Reason/Comments: Missed dialysis, hyperkalemia Do you want consulting provider notified?: Yes Primary care physician: Kimberli Gar Hospital Course: This is a 64-year-old obese female patient of mine, Dr. JAE Jc, and Dr. Talley with multiple medical problem was known to have end-stage kidney disease on hemodialysis Friday, coronary artery disease and prior coronary artery stenting, diabetes type 2 insulin requiring, dyslipidemia, history of permanent pacemaker. Patient is a long-term resident at [facility] developed to have COVID-19 during an outbreak that affected [facility] and she was sent to [facility] for evaluation and treatment and she eventually was sent back to [facility], patient was just recently discharged from [facility] after she was admitted for metabolic encephalopathy due to uremia and cardiac debility and had echocardiogram that showed LVF 30-35 % and she was sen by cardiology and no new recommendations were made, patient has been residing at [facility], she was seen last Friday and she had missed her dialysis because she was feeling fatigue and tired at that time had laboratory evaluation that showed no significant abnormalities but slight elevation of troponin at that time 0.098, patient also was complaining of severe constipation she was given lactulose 20 g orally twice every day along with stool softener, and 24 hours later she was feeling better she had a good bowel movement, patient was supposed to go to hemodialysis today however she did not go because of generalized weakness she ended up coming to the ER at [facility] for evaluation she was found to be hyponatremic with a sodium of 129 and potassium 7.1, she was given treatment in the ER and she is to get her to hemodialysis, she will be admitted to the hospital for evaluation by nephrology. 05/30: Patient just been moved up to the cardiac stepdown unit from the emergency center. Patient states that she is feeling better today, status post hemodialysis treatment yesterday in the ER. She denies having any cough. She has not had a bowel movement today. She is noted to have decreased lower extremity edema. Patient has been afebrile, heart rate in the 50s and 60s, blood pressure 100/46, pulse ox 97% on 2 L nasal cannula. This morning's blood work reveals hemoglobin of 9.4, INR 3, BUN 37, creatinine 4.05, potassium 4.4. Blood sugars are in the low 200s. AST 49, ALT 53. Discharge plan will be to return to [facility] most likely tomorrow. 05/31: Patient states that she is feeling better. She still has nausea which is chronic. She states she is not eating very much. She did have a bowel movement. She underwent dialysis yesterday for ultrafiltration of 700 ML's. Cortisol level. Electrolytes normal, BUN 27 creatinine 3.53. AST 51 and ALT 47. WBC 7.2, hemoglobin 10.2. Dr. Souza has changed frequency of midodrine to 3 times daily and hold for systolic blood pressure greater than 110. Patient is scheduled for hemodialysis today and once this is completed, anticipate discharge back to [facility] in stable condition. DISCHARGE DIAGNOSES 1. Hyponatremia with hyperkalemia secondary to missed dialysis on Friday and on Friday. 2. Recent NSTEMI. 3. Chronic fatigue with generalized weakness. 4. End-stage renal disease on hemodialysis Friday. 5. History of coronary artery disease with prior stenting of the LAD. 6. Hyponatremia likely related to hypervolemia patient did miss her dialysis treatment 7. Acute on chronic anemia due to chronic kidney disease and possible GI loss. 8. Hypertension and hypertensive cardiovascular disease. 9. Hyperlipidemia. 10. Gastroesophageal reflux disease. 11. Diabetes mellitus type 2, insulin requiring. 12. Generalized anxiety disorder and recurrent depression. 13. Hypothyroidism. 14. history of symptomatic Bradycardia and recently was diagnosed with atrial fibrillation post PPM amd currently fully anticoagulated. 15. Medical debility. Discharge plan: Return to [facility] Impression and plan of care have been directed as dictated by the signing physician. Emely Contreras nurse practitioner acting as scribe for signing physician. Plan - Discharge Summary Discharge Rx Participant: No New Discharge Prescriptions: New Midodrine [ProAmatine] 5 mg PO AC-TID tab LORazepam [Ativan] 1 mg PO BID PRN #6 tab PRN Reason: Anxiety HYDROcodone/APAP 10-325MG [[place] 10-325] 1 each PO Q8H PRN #9 tab PRN Reason: pain Continue Atorvastatin [Lipitor] 80 mg PO HS Acetaminophen Tab [Tylenol] 500 mg PO Q6H PRN PRN Reason: Pain Docusate Sodium [Dok] 100 mg PO BID Folic Acid-Vit B Complex-Vit C [Nephrocaps] 1 cap PO MOWEFR@2100 Folic Acid-Vit B Complex-Vit C [Nephrocaps] 1 cap PO SUTUTHSA@0900 Escitalopram [Lexapro] 20 mg PO DAILY Clopidogrel [Plavix] 75 mg PO DAILY Levothyroxine Sodium [Synthroid] 175 mcg PO DAILY@0600 Sodium Polystyrene Sulfonate 15 gm PO SUTUTH Lidocaine-Prilocaine Cream [Emla Cream 2.5%/2.5%] 1 applic TOPICAL MOWEFR Furosemide [Lasix] 80 mg PO DAILY@0600 Aspirin 81 mg PO DAILY Sennosides [Senna] 8.6 mg PO DAILY PRN PRN Reason: Constipation carvediloL [Coreg] 3.125 mg PO BID Insulin Lispro [humaLOG Kwikpen] 2 unit SQ HS Ammonium Lactate Lotion [Lac-Hydrin 12% Lotion] 1 applic TOPICAL BID Melatonin 10 mg PO HS Nitroglycerin Sl Tabs [Nitrostat] 0.4 mg SL Q5M PRN PRN Reason: Chest Pain Calcium Acetate [PhosLo] 667 mg PO TID-W/MEALS INSULIN ASPART (NovoLOG) [NovoLOG (formulary)] See Protocol SQ ACHS Insulin Detemir (Levemir) [Levemir] 22 unit SQ HS Lactulose 20 gm PO BID Pantoprazole [Protonix] 40 mg PO DAILY@0600 Warfarin [Coumadin] 3 mg PO DAILY@1700 Discontinued LORazepam [Ativan] 1 mg PO BID PRN #6 tab PRN Reason: Anxiety Midodrine [ProAmatine] 5 mg PO BID PRN tab PRN Reason: Hypotension HYDROcodone/APAP 10-325MG [[place] 10-325] 1 tab PO Q8H PRN PRN Reason: pain Discharge Medication List Atorvastatin [Lipitor] 80 mg PO HS 12/27/16 [History] Acetaminophen Tab [Tylenol] 500 mg PO Q6H PRN 01/11/19 [History] Docusate Sodium [Dok] 100 mg PO BID 01/11/19 [History] Escitalopram [Lexapro] 20 mg PO DAILY 04/02/19 [History] Folic Acid-Vit B Complex-Vit C [Nephrocaps] 1 cap PO MOWEFR@2100 04/02/19 [History] Folic Acid-Vit B Complex-Vit C [Nephrocaps] 1 cap PO SUTUTHSA@0900 04/02/19 [History] Clopidogrel [Plavix] 75 mg PO DAILY 04/09/19 [History] Levothyroxine Sodium [Synthroid] 175 mcg PO DAILY@0600 11/05/19 [History] Sodium Polystyrene Sulfonate 15 gm PO SUTUTH 11/05/19 [History] Lidocaine-Prilocaine Cream [Emla Cream 2.5%/2.5%] 1 applic TOPICAL MOWEFR 11/23/19 [History] Furosemide [Lasix] 80 mg PO DAILY@0600 01/28/20 [History] Aspirin 81 mg PO DAILY 02/28/20 [History] Sennosides [Senna] 8.6 mg PO DAILY PRN 02/28/20 [History] carvediloL [Coreg] 3.125 mg PO BID 04/03/20 [History] Insulin Lispro [humaLOG Kwikpen] 2 unit SQ HS 04/10/20 [History] Ammonium Lactate Lotion [Lac-Hydrin 12% Lotion] 1 applic TOPICAL BID 04/28/20 [History] Melatonin 10 mg PO HS 04/28/20 [History] Nitroglycerin Sl Tabs [Nitrostat] 0.4 mg SL Q5M PRN 04/28/20 [History] Calcium Acetate [PhosLo] 667 mg PO TID-W/MEALS 05/29/20 [History] INSULIN ASPART (NovoLOG) [NovoLOG (formulary)] See Protocol SQ ACHS 05/29/20 [History] Insulin Detemir (Levemir) [Levemir] 22 unit SQ HS 05/29/20 [History] Lactulose 20 gm PO BID 05/29/20 [History] Pantoprazole [Protonix] 40 mg PO DAILY@0600 05/29/20 [History] Warfarin [Coumadin] 3 mg PO DAILY@1700 05/29/20 [History] HYDROcodone/APAP 10-325MG [[place] 10-325] 1 each PO Q8H PRN #9 tab 05/31/20 [Rx] LORazepam [Ativan] 1 mg PO BID PRN #6 tab 05/31/20 [Rx] Midodrine [ProAmatine] 5 mg PO AC-TID tab 05/31/20 [Rx] Follow up Appointment(s)/Referral(s): Kimberli Gar MD [Primary Care Provider] - 1 Week (at [facility]) Discharge Disposition: TRANSFER TO SNF/ECF
[2020-05-31] MEDS: DOCUSATE 100 MG CAP PO SCH (09:01)
[2020-05-31] MEDS: CLOPIDOGREL 75 MG TAB PO SCH (09:01)
[2020-05-31] MEDS: LACTULOSE 20 GM/30 ML CUP PO SCH (09:01)
[2020-05-31] MEDS: ESCITALOPRAM 20 MG TAB PO SCH (09:01)
[2020-05-31] MEDS: ASPIRIN 81 MG PO SCH (09:01)
[2020-05-31] MEDS: AMMONIUM LACTATE 12% LOTION 225 GM BTL TOPICAL SCH (09:02)
--- NOTE | 2020-05-31 10:37 | P.PN ---
Subjective Patient is seen in follow-up for end-stage renal disease. She is maintained on hemodialysis on Friday schedule. No chest pain or shortness of breath. Scheduled for dialysis today. Hemodynamically stable. Vital signs are stable. General: The patient appeared well nourished and normally developed. HEENT: Head exam is unremarkable. Neck is without jugular venous distension. LUNGS: Breath sounds decreased. HEART: Rate and Rhythm are regular. ABDOMEN: Soft, nontender. Obese. EXTREMITITES: Chronic skin changes noted. 1+ edema. Objective - Vital Signs Vital signs: Vital Signs Temp 97.8 F 05/31/20 08:00 Pulse 61 05/31/20 08:00 Resp 16 05/31/20 08:40 BP 116/58 05/31/20 08:00 Pulse Ox 96 05/31/20 08:00 Intake & Output 05/30/20 05/31/20 05/31/20 18:59 06:59 18:59 Intake Total 420 480 Output Total 0 Balance 420 480 Weight 96.5 kg Intake: Oral 420 480 Output: Urine 0 Other: Voiding Method Diaper # Voids 2 0 # Bowel Movements 1 1 - Labs CBC & Chem 7: 05/31/20 06:53 05/31/20 06:53 Labs: Abnormal Lab Results - Last 24 Hours (Table) 05/30/20 05/30/20 05/30/20 Range/Units 11:34 16:39 20:37 RBC (3.80-5.40) m/uL Hgb (11.4-16.0) gm/dL Hct (34.0-46.0) % MCV (80.0-100.0) fL MCHC (31.0-37.0) g/dL RDW (11.5-15.5) % PT (9.0-12.0) sec INR (<1.2) BUN (7-17) mg/dL Creatinine (0.52-1.04) mg/dL POC Glucose (mg/dL) 145 H 118 H 146 H (75-99) mg/dL AST (14-36) U/L ALT (4-34) U/L Total Protein (6.3-8.2) g/dL Albumin (3.5-5.0) g/dL 05/31/20 05/31/20 05/31/20 Range/Units 05:51 06:53 06:53 RBC 3.29 L (3.80-5.40) m/uL Hgb 10.2 L (11.4-16.0) gm/dL Hct 33.1 L (34.0-46.0) % MCV 100.5 H (80.0-100.0) fL MCHC 30.8 L (31.0-37.0) g/dL RDW 17.6 H (11.5-15.5) % PT 27.6 H (9.0-12.0) sec INR 2.9 H (<1.2) BUN (7-17) mg/dL Creatinine (0.52-1.04) mg/dL POC Glucose (mg/dL) 102 H (75-99) mg/dL AST (14-36) U/L ALT (4-34) U/L Total Protein (6.3-8.2) g/dL Albumin (3.5-5.0) g/dL 05/31/20 Range/Units 06:53 RBC (3.80-5.40) m/uL Hgb (11.4-16.0) gm/dL Hct (34.0-46.0) % MCV (80.0-100.0) fL MCHC (31.0-37.0) g/dL RDW (11.5-15.5) % PT (9.0-12.0) sec INR (<1.2) BUN 27 H (7-17) mg/dL Creatinine 3.53 H (0.52-1.04) mg/dL POC Glucose (mg/dL) (75-99) mg/dL AST 51 H (14-36) U/L ALT 47 H (4-34) U/L Total Protein 6.0 L (6.3-8.2) g/dL Albumin 2.6 L (3.5-5.0) g/dL Assessment and Plan Plan: Assessment: 1. End-stage renal disease maintained on hemodialysis on Friday schedule. 2. Hyperkalemia secondary to chronic kidney disease and missed dialysis treatment. Improved postdialysis. 3. Hyponatremia secondary to chronic kidney disease. Improved postdialysis. 4. Diabetes mellitus. 5. Chronic kidney disease mineral bone disease maintained on PhosLo. 6. Generalized debility. Plan: Hemodialysis today. Maintain midodrine with parameters. Follow-up morning cortisol level. Maintain oral Lasix.
[2020-05-31 12:11] LABS: Glucose,Whole Blood 99 mg/dL (75-99)
[2020-05-31 14:52] VITALS: BP 114/57; PULSE 60; RESP 16; TEMP 98.2
--- NOTE | 2020-06-02 12:43 | CDI ---
Documentation Clarification Form Date: 06/02/20 From: Puja Currie Phone: Admit Date: 05/29/2020 02:47:00 PM Patient Name: Ethel Marrufo Visit Number: [id number] Discharge Date: 05/31/2020 03:53:00 PM ATTENTION: The Clinical Documentation Specialists (CDI) and [facility] Coding Staff appreciate your assistance in clarifying documentation. Please respond to the clarification below the line at the bottom and electronically sign. The CDI & [facility] Coding staff will review the response and follow-up if needed. Please note: Queries are made part of the Legal Health Record. If you have any questions, please contact the author of this message via ITS. Dr. Kimberli Gar, Heart failure/CHF is documented in the ED note and consult. History/Risk Factors: HTN, ESRD, cardiomyopathy, DM w CKD, Clinical Indicators: Patient is a 64-year-old female seen in renal consultation for end-stage renal disease. She is maintained on hemodialysis on Friday schedule. Patient went for hemodialysis yesterday but was sent to the hospital due to pain in her left arm with radiation to her back. She currently denies any chest pain or shortness of breath. Her pain overall is improved. Her potassium level was elevated at 7 yesterday and is 4.4 today. She completed hemodialysis yesterday with about 700 mL ultrafiltration. VS/Pulse OX: T-98.3, P-60/59, P-20, BP-123/52, O2-96 05/29 BNP: 98157 04/04/20 Echocardiogram Results: Left ventricular systolic function is moderate- severely impaired with an EF between 30-35%. 05/29 Chest X Ray: Diffuse pleural-parenchymal changes with bilateral consolidation and pleural effusion correlate for CHF. Otherwise, consider atypical interstitial pneumonia Treatment: Dialysis, IV Bicarb, Lasix 80 mg PO daily In your professional opinion, can you please clarify the acuity and type of CHF if known? TYPE Systolic Heart Failure Diastolic Heart Failure Systolic & Diastolic Heart Failure ACUITY Acute Chronic Acute on Chronic Heart Failure Unable to Determine Other, please specify Acute on chronic systolic heart failure MTDD
--- NOTE | 2020-06-06 07:23 | P.HPIM ---
History of Present Illness H&P Date: 05/29/20 This is a 64-year-old obese female patient of paty, Dr. JAE Jc, and Dr. Talley with multiple medical problem was known to have end-stage kidney disease on hemodialysis Friday, coronary artery disease and prior coronary artery stenting, diabetes type 2 insulin requiring, dyslipidemia, history of permanent pacemaker. Patient is a long-term resident at [facility] developed to have COVID-19 during an outbreak that affected [facility] on [facility] and she was sent to [facility] for evaluation and treatment and she eventually was sent back to [facility] on [facility], patient was just recently discharged from [facility] after she was admitted for metabolic e ncephalopathy due to uremia and cardiac debility and had echocardiogram that showed LVF 30-35 % and she was sen by cardiology and no new recommendations were made, patient has been residing at [facility], she was seen last Friday and she had missed her dialysis because she was feeling fatigue and tired at that time had laboratory evaluation that showed no significant abnormalities but slight elevation of troponin at that time 0.098, patient also was complaining of severe constipation she was given lactulose 20 g orally twice every day along with stool softener, and 24 hours later she was feeling better she had a good bowel movement, patient was supposed to go to hemodialysis today however she did not go because of generalized weakness she ended up coming to the ER at [facility] for evaluation she was found to be hyponatremic with a sodium of 129 and potassium 7.1, she was given treatment in the ER and she is to get her to hemodialysis, she will be admitted to the hospital for evaluation by nephrology. Review of Systems Constitutional: Reports anorexia, Reports chronic pain, Reports fatigue, Reports lethargy, Reports malaise, Reports weakness, Reports weight loss Eyes: denies blurred vision, denies bulging eye, denies decreased vision Ears: deny: decreased hearing Ears, nose, mouth and throat: Denies dysphagia, Denies neck lump, Denies sore throat Cardiovascular: Reports decreased exercise tolerance, Reports dyspnea on exertion, Reports high blood pressure, Reports shortness of breath, Denies chest pain, Denies leg edema, Denies lightheadedness, Denies rapid heart beat, Denies syncope Respiratory: Reports dyspnea, Denies congestion, Denies cough, Denies home oxygen, Denies sleep apnea, Denies snoring, Denies wheezing Gastrointestinal: Reports abdominal pain, Reports change in bowel habits, Reports constipation, Reports loss of appetite, Reports nausea, Denies bloating, Denies diarrhea, Denies excessive gas, Denies heartburn, Denies hematemesis, Denies melena, Denies vomiting Genitourinary: Reports nocturia, Denies dysuria Menstruation: Reports postmenopausal Musculoskeletal: Reports atrophy, Reports frequent falls, Reports gait dysfunction, Reports loss of height, Reports low back pain, Reports neck pain, Reports neck stiffness Musculoskeletal: left: shoulder pain, shoulder stiffness, absent: ankle pain, ankle stiffness, ankle swelling, elbow pain, elbow stiffness, elbow swelling, foot pain, foot stiffness, foot swelling, hand pain, hand stiffness, hand swelling, hip pain, hip stiffness, hip swelling, knee pain, knee stiffness, knee swelling, shoulder swelling, wrist pain, wrist stiffness, wrist swelling Integumentary: Denies pruritus, Denies rash Neurological: Reports balance difficulties, Reports confusion, Reports gait dysfunction, Reports headaches, Reports numbness, Reports sensory deficit, Reports weakness Psychiatric: Reports anxiety, Reports depression, Reports memory loss, Reports sadness/tearfulness, Reports sleep disturbances, Denies suicidal ideation Endocrine: Denies fatigue, Denies weight change Past Medical History Past Medical History: Atrial Flutter, Asthma, Coronary Artery Disease (CAD), Chest Pain / Angina, Heart Failure, Dementia, Diabetes Mellitus, Dialysis, GERD/Reflux, Hearing Disorder / Deafness, Hyperlipidemia, Hypertension, Liver Disease, Myocardial Infarction (SC), Osteoarthritis (OA), Pneumonia, Renal Disease, Thyroid Disorder, Vascular Disorder Additional Past Medical History / Comment(s): Pt recently admitted to [facility] on 04/03/20 with severe metabolic encephalopathy d/t ESRD with cardiac debitlity and cardiomyopathy. 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, hepatitis A which pt states was treated, pt is wheelchair bound, IBS, constipation, incontinent of stool, vertigo, PVD, pt believes she has a coccyx decubitus at this time, tinnitis bilaterally, sinus problems, chronic back pain/sciatica/scoliosis, hypothyroid, UTIs, vitamin D defiency, falls, Last Myocardial Infarction Date:: 04/02/20 History of Any Multi-Drug Resistant Organisms: MRSA, VRE Date of last positivie culture/infection: 11/11/18-VRE; 09/27/17 MRSA MDRO Source:: Urine-VRE; Right Breast-MRSA Past Surgical History: Adenoidectomy, Appendectomy, Bariatric Surgery, Cholecystectomy, Heart Catheterization, Heart Catheterization With Stent, Hysterectomy, Orthopedic Surgery, Pacemaker, Tonsillectomy Additional Past Surgical History / Comment(s): D&C, ovarian wedge resection, EGDLap band/gastric sleeve, hemodialysis fistula/surgery to reposition, L shoulder arthroscopic surgery, excisional debridement R lower extremity, bilateral cataract removals/lens implants. Past Anesthesia/Blood Transfusion Reactions: Motion Sickness, Postoperative Nausea & Vomiting (PONV) Additional Past Anesthesia/Blood Transfusion Reaction / Comment(s): blood transfusion-pt stated they gave her medication for a reaction but does'nt rememebr what the reaction was Date of Last Stent Placement:: 04/02/20 Type of Cardiac Device: Permanent Pacemaker Device Placement Date:: 04/20/18 Past Psychological History: Anxiety, Bipolar, Depression Smoking Status: Never smoker Past Alcohol Use History: None Reported Past Drug Use History: None Reported - Past Family History Mother Family Medical History: Congestive Heart Failure (CHF), Diabetes Mellitus, Hypertension Father History Unknown: Yes Family Medical History: Diabetes Mellitus Brother(s) Family Medical History: Diabetes Mellitus, Hyperlipidemia, Renal Disease Additional Family Medical History / Comment(s): chronic kidney disease Medications and Allergies Home Medications Medication Instructions Recorded Confirmed Type Atorvastatin [Lipitor] 80 mg PO HS 12/27/16 05/29/20 History Acetaminophen Tab [Tylenol] 500 mg PO Q6H PRN 01/11/19 05/29/20 History Docusate Sodium [Dok] 100 mg PO BID 01/11/19 05/29/20 History Escitalopram [Lexapro] 20 mg PO DAILY 04/02/19 05/29/20 History Folic Acid-Vit B Complex-Vit C 1 cap PO MOWEFR@2100 04/02/19 05/29/20 History [Nephrocaps] Folic Acid-Vit B Complex-Vit C 1 cap PO SUTUTHSA@0900 04/02/19 05/29/20 History [Nephrocaps] Clopidogrel [Plavix] 75 mg PO DAILY 04/09/19 05/29/20 History Levothyroxine Sodium [Synthroid] 175 mcg PO DAILY@0600 11/05/19 05/29/20 History Sodium Polystyrene Sulfonate 15 gm PO SUTUTH 11/05/19 05/29/20 History Lidocaine-Prilocaine Cream [Emla 1 applic TOPICAL MOWEFR 11/23/19 05/29/20 History Cream 2.5%/2.5%] Furosemide [Lasix] 80 mg PO DAILY@0600 01/28/20 05/29/20 History Aspirin 81 mg PO DAILY 02/28/20 05/29/20 History Sennosides [Senna] 8.6 mg PO DAILY PRN 02/28/20 05/29/20 History carvediloL [Coreg] 3.125 mg PO BID 04/03/20 05/29/20 History Insulin Lispro [humaLOG Kwikpen] 2 unit SQ HS 04/10/20 05/29/20 History Ammonium Lactate Lotion 1 applic TOPICAL BID 04/28/20 05/29/20 History [Lac-Hydrin 12% Lotion] Melatonin 10 mg PO HS 04/28/20 05/29/20 History Nitroglycerin Sl Tabs [Nitrostat] 0.4 mg SL Q5M PRN 04/28/20 05/29/20 History LORazepam [Ativan] 1 mg PO BID PRN #6 tab 05/03/20 05/29/20 Rx Midodrine [ProAmatine] 5 mg PO BID PRN tab 05/03/20 05/29/20 Rx Calcium Acetate [Phoslo] 667 mg PO TID-W/MEALS 05/29/20 05/29/20 History HYDROcodone/APAP 10-325MG [Shipman 1 tab PO Q8H PRN 05/29/20 05/29/20 History 10-325] INSULIN ASPART (NovoLOG) [NovoLOG See Protocol SQ ACHS 05/29/20 05/29/20 History (formulary)] Insulin Detemir (Levemir) [Levemir] 22 unit SQ HS 05/29/20 05/29/20 History Lactulose 20 gm PO BID 05/29/20 05/29/20 History Pantoprazole [Protonix] 40 mg PO DAILY@0600 05/29/20 05/29/20 History Warfarin [Coumadin] 3 mg PO DAILY@1700 05/29/20 05/29/20 History Allergies Allergy/AdvReac Type Severity Reaction Status Date / Time adhesive Allergy Rash/Hives Verified 05/29/20 13:10 Penicillins Allergy Rash/Hives Verified 05/29/20 13:10 Iodinated Contrast Media AdvReac KIDNEY Verified 05/29/20 13:10 [Iodinated Contrast- Oral FAILURE and IV Dye] metformin AdvReac SUGAR Verified 05/29/20 13:10 LEVEL INCREASE Physical Exam Vitals: Vital Signs Temp Pulse Resp BP Pulse Ox 05/29/20 14:28 92 20 123/55 100 05/29/20 13:21 59 L 18 129/57 100 05/29/20 12:28 98.3 F 60 20 123/52 96 Intake and Output 05/29/20 05/29/20 05/29/20 06:59 14:59 22:59 Other: Weight 98 kg Physical examination: General: 64-year-old female who is laying down in bed appears to be very weak does not appear to be in acute distress at this point in time. HEENT: Head is atraumatic, normocephalic, pupils were equal round reactive to light and recommendation, extraocular muscle movement were intact, sclera nonicteric, conjunctivae were pale, mucous membranes of the mouth are somewhat dry. Neck: Supple, no JVP, decreased carotid upstroke bilaterally, no lymphadenopathy. Chest: Decreased breath sounds at the bases, few rhonchi, no extremity wheezes, no chest wall tenderness, no intercostal retractions. Heart: First heart sound is depressed, second heart sounds normal, there is systolic ejection murmur 2/6 located in the left sternal border. Abdomen: Soft, nontender, nondistended, positive bowel sounds. Extremities: There is no edema no calf tenderness DP +1 bilaterally. Neurologic examination: Patient is awake alert and oriented 2, cranial nerves III-12 appear grossly intact, muscle power were 4 out of 5 in upper extremities and 3 out of 5 in bilateral lower extremities, deep tendon reflexes were depressed bilaterally, there is also neuropathic changes to both lower extremity with decreased sensation. Results CBC & Chem 7: 05/29/20 13:12 05/29/20 13:12 Labs: Abnormal Lab Results - Last 24 Hours (Table) 05/29/20 05/29/20 05/29/20 Range/Units 13:12 13:12 13:12 RBC 3.62 L (3.80-5.40) m/uL Hgb 10.7 L D (11.4-16.0) gm/dL MCHC 30.3 L (31.0-37.0) g/dL RDW 17.5 H (11.5-15.5) % Lymphocytes # 0.5 L (1.0-4.8) k/uL PT 28.6 H (9.0-12.0) sec INR 3.0 H (<1.2) APTT 30.3 H (22.0-30.0) sec Sodium 128 L (137-145) mmol/L Potassium 7.0 H* (3.5-5.1) mmol/L Chloride 91 L (98-107) mmol/L BUN 56 H (7-17) mg/dL Creatinine 6.01 H (0.52-1.04) mg/dL Glucose 219 H (74-99) mg/dL Magnesium 2.5 H (1.6-2.3) mg/dL AST 53 H (14-36) U/L ALT 50 H (4-34) U/L Alkaline Phosphatase 143 H (38-126) U/L Troponin I (0.000-0.034) ng/mL Albumin 3.1 L (3.5-5.0) g/dL 05/29/20 Range/Units 13:12 RBC (3.80-5.40) m/uL Hgb (11.4-16.0) gm/dL MCHC (31.0-37.0) g/dL RDW (11.5-15.5) % Lymphocytes # (1.0-4.8) k/uL PT (9.0-12.0) sec INR (<1.2) APTT (22.0-30.0) sec Sodium (137-145) mmol/L Potassium (3.5-5.1) mmol/L Chloride (98-107) mmol/L BUN (7-17) mg/dL Creatinine (0.52-1.04) mg/dL Glucose (74-99) mg/dL Magnesium (1.6-2.3) mg/dL AST (14-36) U/L ALT (4-34) U/L Alkaline Phosphatase (38-126) U/L Troponin I 0.088 H* (0.000-0.034) ng/mL Albumin (3.5-5.0) g/dL Assessment and Plan Assessment: Assessment and Plan: 1. Hyponatremia with hyperkalemia secondary to missed dialysis on Friday and on Friday. Patient will be seen in consultation by nephrology we'll arrange for hemodialysis later on today, patient was given treatment for hyperkalemia and emergency department she will be admitted to the hospital for further evaluation.. 2. Recent NSTEMI. we will continue with ASA 81 mg orally daily, PLavix 75 mg orally daily and Lipitor 80 mg orally daily and add small dose of Coreg 3.125 mg orally bid, cardiology evaluation, we will check Echocardiogram for evaluation of her LVF and wall motion. 3. Chronic fatigue with generalized weakness. Likely related to combination of cardiac debility and chronic kidney disease due to end-stage renal disease on hemodialysis. Continue with cardiac and renal replacement therapy. 4. End-stage renal disease on hemodialysis Friday. Nephrology consult appreciated Continue NephrocAmandeep knox. 5. History of coronary artery disease with prior stenting of the LAD. We will continue the patient on aspirin 81 mg once every day, Plavix 75 mg orally once every day, Lipitor 80 mg once every day, added Coreg 3.125 mg orally bid. 6. Hyponatremia likely related to hypervolemia patient did miss her dialysis yesterday. She will go for another hemodialysis today. 7. Acute on chronic anemia due to chronic kidney disease and possible GI loss. 2 Protonix 40 mg IV push every 24 hours, GI consultation. 8. Hypertension and hypertensive cardiovascular disease. Continue amlodipine2.5 mg daily and add Coreg 3.125 mg orally bid. 9. Hyperlipidemia. Continue atorvastatin 80 mg at bedtime 10. Gastroesophageal reflux disease and GI prophylaxis. we will continue with Protonix 40 mg orally daily. 11. Diabetes mellitus type 2, insulin requiring. We will continue Levemir 18 units at bedtime along with the Humalog per sliding scale insulin. 12. Generalized anxiety disorder and recurrent depression. Continue Lexapro 20 mg orally once every day as well as Ativan 1 mg orally twice every day. 13. Hypothyroidism. Continue patient on levothyroxine 175 g orally once every day. 14. history of symptomatic Bradycardia and recently was diagnosed with atrial fibrillation post PPM amd currently fully anticoagulated. 15. DVT prophylaxis. we will contiue with coumadin INR is therapeutic. 16. GI prophylaxis. we will contiue with Protonix 40 mg 17. Me IV push daily.dical debility. Physical therapy evaluation. 18. 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 19. Patient is full code. 20. Admit to inpatient. Estimated length of stay 2 midnights.
== END 2020-05-31 15:53 | DRG 640 ==
LOC: EC 12:26 → 3SCARD 14:47
PROVIDERS: ADMIT Internal Medicine; ATTEND Internal Medicine
PROC: 5A1D70Z Performance of Urinary Filtration, Intermittent, Less than 6 Hours Per Day (ICD-10-PCS; principal; 2020-05-29)
DX: E87.5 Hyperkalemia (principal); N18.6 End stage renal disease; I50.23 Acute on chronic systolic (congestive) heart failure; I42.9 Cardiomyopathy, unspecified; F31.30 Bipolar disorder, current episode depressed, mild or moderate severity, unspecified; I13.2 Hypertensive heart and chronic kidney disease with heart failure and with stage 5 chronic kidney disease, or end stage renal disease; E11.41 Type 2 diabetes mellitus with diabetic mononeuropathy; D63.1 Anemia in chronic kidney disease; E83.9 Disorder of mineral metabolism, unspecified; E11.319 Type 2 diabetes mellitus with unspecified diabetic retinopathy without macular edema; F03.90 Unspecified dementia, unspecified severity, without behavioral disturbance, psychotic disturbance, mood disturbance, and anxiety; E11.51 Type 2 diabetes mellitus with diabetic peripheral angiopathy without gangrene; E11.22 Type 2 diabetes mellitus with diabetic chronic kidney disease; E87.1 Hypo-osmolality and hyponatremia; Z99.2 Dependence on renal dialysis; Z79.4 Long term (current) use of insulin; F31.9 Bipolar disorder, unspecified; I48.91 Unspecified atrial fibrillation; Z20.822 Contact with and (suspected) exposure to COVID-19; E78.5 Hyperlipidemia, unspecified; I25.10 Atherosclerotic heart disease of native coronary artery without angina pectoris; J45.909 Unspecified asthma, uncomplicated; G89.29 Other chronic pain; M54.9 Dorsalgia, unspecified; M54.30 Sciatica, unspecified side; K21.9 Gastro-esophageal reflux disease without esophagitis; I25.2 Old myocardial infarction; H91.90 Unspecified hearing loss, unspecified ear; R53.81 Other malaise; E03.9 Hypothyroidism, unspecified; E55.9 Vitamin D deficiency, unspecified; H93.13 Tinnitus, bilateral; F41.1 Generalized anxiety disorder; K58.9 Irritable bowel syndrome, unspecified; M19.90 Unspecified osteoarthritis, unspecified site; M41.9 Scoliosis, unspecified; M25.512 Pain in left shoulder; M79.602 Pain in left arm; E66.9 Obesity, unspecified; Z68.34 Body mass index [BMI] 34.0-34.9, adult; Z79.82 Long term (current) use of aspirin; Z79.02 Long term (current) use of antithrombotics/antiplatelets; Z79.890 Hormone replacement therapy; Z79.01 Long term (current) use of anticoagulants; Z79.899 Other long term (current) drug therapy; Z96.41 Presence of insulin pump (external) (internal); Z99.3 Dependence on wheelchair; Z87.01 Personal history of pneumonia (recurrent); Z91.81 History of falling; Z87.440 Personal history of urinary (tract) infections; Z86.14 Personal history of Methicillin resistant Staphylococcus aureus infection; Z86.19 Personal history of other infectious and parasitic diseases; Z90.89 Acquired absence of other organs; Z90.49 Acquired absence of other specified parts of digestive tract; Z98.84 Bariatric surgery status; Z95.5 Presence of coronary angioplasty implant and graft; Z90.710 Acquired absence of both cervix and uterus; Z95.0 Presence of cardiac pacemaker; Z96.1 Presence of intraocular lens; Z98.42 Cataract extraction status, left eye; Z98.41 Cataract extraction status, right eye; Z98.890 Other specified postprocedural states; Z87.19 Personal history of other diseases of the digestive system; Z87.42 Personal history of other diseases of the female genital tract; Z87.2 Personal history of diseases of the skin and subcutaneous tissue; Z86.79 Personal history of other diseases of the circulatory system; Z87.39 Personal history of other diseases of the musculoskeletal system and connective tissue; Z91.041 Radiographic dye allergy status; Z88.0 Allergy status to penicillin; Z88.8 Allergy status to other drugs, medicaments and biological substances; Z91.048 Other nonmedicinal substance allergy status; Z82.49 Family history of ischemic heart disease and other diseases of the circulatory system; Z83.3 Family history of diabetes mellitus
CPT/HCPCS: 36415; 71046; 80053; 80061; 82533; 83036; 83735; 83880; 84443; 84484; 85025; 85027; 85610; 85730; 86706; 87340; 87635; 90935; 93005; 96365; 96372; 96375; 99285; 99291

== ENCOUNTER 2020-09-23 20:39 | Inpatient (IN) | payer MEDICARE, OTHER ==
[2020-09-23] MEDS ORDERED: SODIUM CHLORIDE 0.9% 1,000 ML IV STA (21:27)
[2020-09-23 22:05] LABS: Anisocytosis Slight; Basophils % (A) 0 %; Eosinophils # (A) 0.1 k/uL (0-0.7); Eosinophils % (A) 1 %; HCT 31.9 % (34.0-46.0); HGB 10.2 gm/dL (11.4-16.0); Hypochromasia Slight; Lymphocytes # (A) 0.5 k/uL (1.0-4.8); Lymphocytes % (A) 5 %; MCH 30.2 pg (25.0-35.0); MCHC 32.1 g/dL (31.0-37.0); Mean Platelet Volume 7.5; Monocytes # (A) 0.6 k/uL (0-1.0); Monocytes % (A) 7 %; Neutrophils # (A) 8.2 k/uL (1.3-7.7); Neutrophils % (A) 84 %; Platelet Count 299 k/uL (150-450); RBC 3.39 m/uL (3.80-5.40); RDW 17.8 % (11.5-15.5); WBC 9.7 k/uL (3.8-10.6)
[2020-09-23 22:18] LABS: INR 4.1 (<1.2); Partial Thromboplastin Time 41.8 sec (22.0-30.0); Prothrombin Time 39.4 sec (9.0-12.0)
[2020-09-23 22:20] LABS: Albumin 2.9 g/dL (3.5-5.0); Calcium 8.7 mg/dL (8.4-10.2); Magnesium 2.4 mg/dL (1.6-2.3); Phosphorus 5.6 mg/dL (2.5-4.5); Potassium 4.9 mmol/L (3.5-5.1); Total Protein 6.2 g/dL (6.3-8.2)
--- NOTE | 2020-09-23 22:44 | ED ---
Altered Mental Status HPI - General Chief Complaint: Altered Mental Status Stated Complaint: Altered Mental Status Time Seen by Provider: 09/23/20 21:21 Source: EMS, RN notes reviewed, old records reviewed, Caregiver Mode of arrival: EMS Limitations: altered mental status, physical limitation - History of Present Illness Initial Comments: This is a 65-year-old female DF for evaluation patient Dese for evaluation of altered mental status. Patient has been altered, is altered at baseline but unsure patient's baseline. Patient has a complicated long medical history. Her staff is been refusing to undergo dialysis. Patient is unable to provide any history history obtained from EMS MD Complaint: altered mental status, confusion, decreased responsiveness -: unknown Severity: severe Consistency of Symptoms: getting worse Context: history of similar presentation Associated Symptoms: denies other symptoms Treatments Prior to Arrival: oxygen - Related Data Home Medications Medication Instructions Recorded Confirmed Atorvastatin [Lipitor] 80 mg PO HS 12/27/16 05/29/20 Acetaminophen Tab [Tylenol] 500 mg PO Q6H PRN 01/11/19 05/29/20 Docusate Sodium [Dok] 100 mg PO BID 01/11/19 05/29/20 Escitalopram [Lexapro] 20 mg PO DAILY 04/02/19 05/29/20 Folic Acid-Vit B Complex-Vit C 1 cap PO MOWEFR@2100 04/02/19 05/29/20 [Nephrocaps] Folic Acid-Vit B Complex-Vit C 1 cap PO SUTUTHSA@0900 04/02/19 05/29/20 [Nephrocaps] Clopidogrel [Plavix] 75 mg PO DAILY 04/09/19 05/29/20 Levothyroxine Sodium [Synthroid] 175 mcg PO DAILY@0600 11/05/19 05/29/20 Sodium Polystyrene Sulfonate 15 gm PO SUTUTH 11/05/19 05/29/20 Lidocaine-Prilocaine Cream [Emla 1 applic TOPICAL MOWEFR 11/23/19 05/29/20 Cream 2.5%/2.5%] Furosemide [Lasix] 80 mg PO DAILY@0600 01/28/20 05/29/20 Aspirin 81 mg PO DAILY 02/28/20 05/29/20 Sennosides [Senna] 8.6 mg PO DAILY PRN 02/28/20 05/29/20 carvediloL [Coreg] 3.125 mg PO BID 04/03/20 05/29/20 Insulin Lispro [humaLOG Kwikpen] 2 unit SQ HS 04/10/20 05/29/20 Ammonium Lactate Lotion 1 applic TOPICAL BID 04/28/20 05/29/20 [Lac-Hydrin 12% Lotion] Melatonin 10 mg PO HS 04/28/20 05/29/20 Nitroglycerin Sl Tabs [Nitrostat] 0.4 mg SL Q5M PRN 04/28/20 05/29/20 Calcium Acetate [PhosLo] 667 mg PO TID-W/MEALS 05/29/20 05/29/20 INSULIN ASPART (NovoLOG) [NovoLOG See Protocol SQ ACHS 05/29/20 05/29/20 (formulary)] Insulin Detemir (Levemir) [Levemir] 22 unit SQ HS 05/29/20 05/29/20 Lactulose 20 gm PO BID 05/29/20 05/29/20 Pantoprazole [Protonix] 40 mg PO DAILY@0600 05/29/20 05/29/20 Warfarin [Coumadin] 3 mg PO DAILY@1700 05/29/20 05/29/20 Previous Rx's Medication Instructions Recorded HYDROcodone/APAP 10-325MG [[place] 1 each PO Q8H PRN #9 tab 05/31/20 10-325] LORazepam [Ativan] 1 mg PO BID PRN #6 tab 05/31/20 Midodrine [ProAmatine] 5 mg PO AC-TID tab 05/31/20 Allergies Allergy/AdvReac Type Severity Reaction Status Date / Time adhesive Allergy Rash/Hives Verified 05/29/20 13:10 Penicillins Allergy Rash/Hives Verified 05/29/20 13:10 Iodinated Contrast Media AdvReac KIDNEY Verified 05/29/20 13:10 [Iodinated Contrast- Oral FAILURE and IV Dye] metformin AdvReac SUGAR Verified 05/29/20 13:10 LEVEL INCREASE Review of Systems ROS Statement: Those systems with pertinent positive or pertinent negative responses have been documented in the HPI. ROS Other: All systems not noted in ROS Statement are negative. Past Medical History Past Medical History: Atrial Flutter, Asthma, Coronary Artery Disease (CAD), Chest Pain / Angina, Heart Failure, Dementia, Diabetes Mellitus, Dialysis, GERD/Reflux, Hearing Disorder / Deafness, Hyperlipidemia, Hypertension, Liver Disease, Myocardial Infarction (ND), Osteoarthritis (OA), Pneumonia, Renal Disease, Thyroid Disorder, Vascular Disorder Additional Past Medical History / Comment(s): Pt recently admitted to [facility] on 04/03/20 with severe metabolic encephalopathy d/t ESRD with cardiac debitlity and cardiomyopathy. 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, hepatitis A which pt states was treated, pt is wheelchair bound, IBS, constipation, incontinent of stool, vertigo, PVD, pt believes she has a coccyx decubitus at this time, tinnitis bilaterally, sinus problems, chronic back pain/sciatica/scoliosis, hypothyroid, UTIs, vitamin D defiency, falls, Last Myocardial Infarction Date:: 04/02/20 History of Any Multi-Drug Resistant Organisms: MRSA, VRE Date of last positivie culture/infection: 11/11/18-VRE; 09/27/17 MRSA MDRO Source:: Urine-VRE; Right Breast-MRSA Past Surgical History: Adenoidectomy, Appendectomy, Bariatric Surgery, Leslie cystectomy, Heart Catheterization, Heart Catheterization With Stent, Hysterectomy, Orthopedic Surgery, Pacemaker, Tonsillectomy Additional Past Surgical History / Comment(s): D&C, ovarian wedge resection, EGDLap band/gastric sleeve, hemodialysis fistula/surgery to reposition, L shoulder arthroscopic surgery, excisional debridement R lower extremity, bilateral cataract removals/lens implants. Past Anesthesia/Blood Transfusion Reactions: Motion Sickness, Postoperative Nausea & Vomiting (PONV) Additional Past Anesthesia/Blood Transfusion Reaction / Comment(s): blood transfusion-pt stated they gave her medication for a reaction but does'nt rememebr what the reaction was Date of Last Stent Placement:: 04/02/20 Type of Cardiac Device: Permanent Pacemaker Device Placement Date:: 04/20/18 Past Psychological History: Anxiety, Bipolar, Depression Smoking Status: Never smoker Past Alcohol Use History: None Reported Past Drug Use History: None Reported - Past Family History Mother Family Medical History: Congestive Heart Failure (CHF), Diabetes Mellitus, Hypertension Father History Unknown: Yes Family Medical History: Diabetes Mellitus Brother(s) Family Medical History: Diabetes Mellitus, Hyperlipidemia, Renal Disease Additional Family Medical History / Comment(s): chronic kidney disease General Exam Limitations: altered mental status, physical limitation General appearance: alert, lethargic, obtunded, obese Head exam: Present: atraumatic, normocephalic, normal inspection Eye exam: Present: normal appearance, PERRL, EOMI. Absent: scleral icterus, conjunctival injection, periorbital swelling ENT exam: Present: normal exam, mucous membranes moist Neck exam: Present: normal inspection. Absent: tenderness, meningismus, lymphadenopathy Respiratory exam: Present: normal lung sounds bilaterally. Absent: respiratory distress, wheezes, rales, rhonchi, stridor Cardiovascular Exam: Present: regular rate, normal rhythm, normal heart sounds. Absent: systolic murmur, diastolic murmur, rubs, gallop, clicks GI/Abdominal exam: Present: soft, normal bowel sounds. Absent: distended, tenderness, guarding, rebound, rigid Extremities exam: Present: normal inspection, full ROM, normal capillary refill. Absent: tenderness, pedal edema, joint swelling, calf tenderness Back exam: Present: normal inspection Neurological exam: Present: alert, oriented X3, CN II-XII intact Psychiatric exam: Present: normal affect, normal mood Skin exam: Present: warm, dry, intact, normal color. Absent: rash Course Vital Signs 09/23/20 09/23/20 21:06 22:50 Temperature 98.3 F Pulse Rate 60 62 Respiratory 18 18 Rate Blood Pressure 104/54 103/75 O2 Sat by Pulse 94 L 97 Oximetry - Reevaluation(s) Reevaluation #1: 09/23/20 22:44 Medical record is reviewed Reevaluation #2: 09/23/20 22:44 Patient remains in same clinical condition - Consultations Consultation #1: Spoke with Dr. Gar who agrees to admit this patient Medical Decision Making - Medical Decision Making 65 female DF for evaluation presents today for evaluation of weakness altered mental status. Patient does have left lower leg while ulcer acute on chronic renal failure, patient be admitted for IV antibiotics - Lab Data Result diagrams: 09/23/20 21:53 09/23/20 21:53 Lab Results 09/23/20 09/23/20 09/23/20 Range/Units 21:53 21:53 21:53 WBC 9.7 (3.8-10.6) k/uL RBC 3.39 L (3.80-5.40) m/uL Hgb 10.2 L (11.4-16.0) gm/dL Hct 31.9 L (34.0-46.0) % MCV 94.0 (80.0-100.0) fL MCH 30.2 (25.0-35.0) pg MCHC 32.1 (31.0-37.0) g/dL RDW 17.8 H (11.5-15.5) % Plt Count 299 (150-450) k/uL MPV 7.5 Neutrophils % 84 % Lymphocytes % 5 % Monocytes % 7 % Eosinophils % 1 % Basophils % 0 % Neutrophils # 8.2 H (1.3-7.7) k/uL Lymphocytes # 0.5 L (1.0-4.8) k/uL Monocytes # 0.6 (0-1.0) k/uL Eosinophils # 0.1 (0-0.7) k/uL Basophils # 0.0 (0-0.2) k/uL Hypochromasia Slight Anisocytosis Slight PT 39.4 H (9.0-12.0) sec INR 4.1 H (<1.2) APTT 41.8 H (22.0-30.0) sec Sodium 134 L (137-145) mmol/L Potassium 4.9 (3.5-5.1) mmol/L Chloride 93 L (98-107) mmol/L Carbon Dioxide 24 (22-30) mmol/L Anion Gap 17 mmol/L BUN 56 H (7-17) mg/dL Creatinine 5.61 H (0.52-1.04) mg/dL Est GFR (CKD-EPI)AfAm 8 (>60 ml/min/1.73 sqM) Est GFR (CKD-EPI)NonAf 7 (>60 ml/min/1.73 sqM) Glucose 112 H (74-99) mg/dL Calcium 8.7 (8.4-10.2) mg/dL Phosphorus 5.6 H (2.5-4.5) mg/dL Magnesium 2.4 H (1.6-2.3) mg/dL Total Bilirubin 1.0 (0.2-1.3) mg/dL AST 26 (14-36) U/L ALT 14 (4-34) U/L Alkaline Phosphatase 237 H (38-126) U/L Ammonia (<30) umol/L Creatine Kinase 26 L (30-135) U/L Troponin I (0.000-0.034) ng/mL Total Protein 6.2 L (6.3-8.2) g/dL Albumin 2.9 L (3.5-5.0) g/dL TSH 3.410 (0.465-4.680) mIU/L 09/23/20 09/23/20 Range/Units 21:53 21:53 WBC (3.8-10.6) k/uL RBC (3.80-5.40) m/uL Hgb (11.4-16.0) gm/dL Hct (34.0-46.0) % MCV (80.0-100.0) fL MCH (25.0-35.0) pg MCHC (31.0-37.0) g/dL RDW (11.5-15.5) % Plt Count (150-450) k/uL MPV Neutrophils % % Lymphocytes % % Monocytes % % Eosinophils % % Basophils % % Neutrophils # (1.3-7.7) k/uL Lymphocytes # (1.0-4.8) k/uL Monocytes # (0-1.0) k/uL Eosinophils # (0-0.7) k/uL Basophils # (0-0.2) k/uL Hypochromasia Anisocytosis PT (9.0-12.0) sec INR (<1.2) APTT (22.0-30.0) sec Sodium (137-145) mmol/L Potassium (3.5-5.1) mmol/L Chloride (98-107) mmol/L Carbon Dioxide (22-30) mmol/L Anion Gap mmol/L BUN (7-17) mg/dL Creatinine (0.52-1.04) mg/dL Est GFR (CKD-EPI)AfAm (>60 ml/min/1.73 sqM) Est GFR (CKD-EPI)NonAf (>60 ml/min/1.73 sqM) Glucose (74-99) mg/dL Calcium (8.4-10.2) mg/dL Phosphorus (2.5-4.5) mg/dL Magnesium (1.6-2.3) mg/dL Total Bilirubin (0.2-1.3) mg/dL AST (14-36) U/L ALT (4-34) U/L Alkaline Phosphatase (38-126) U/L Ammonia <9 (<30) umol/L Creatine Kinase (30-135) U/L Troponin I 0.087 H* (0.000-0.034) ng/mL Total Protein (6.3-8.2) g/dL Albumin (3.5-5.0) g/dL TSH (0.465-4.680) mIU/L Disposition Clinical Impression: Delirium due to general medical condition, Dementia, Altered mental status, Leg ulcer, left, Renal failure (ARF), acute on chronic Disposition: ADMITTED IP TO THIS HOSP Condition: Fair Is patient prescribed a controlled substance at d/c from ED?: No Referrals: Kimberli Gar MD [Primary Care Provider] - 1-2 days
[2020-09-23] MEDS ORDERED: ONDANSETRON 4 MG/2 ML VIAL IVP PRN (22:50)
[2020-09-23] MEDS ORDERED: cefTRIAXone IN SWFI 1,000 MG/10 ML SYRINGE IVP STA (22:50)
[2020-09-23] MEDS ORDERED: IPRATROPIUM-ALBUTEROL 3 ML NEB INHALATION PRN (22:50)
[2020-09-23] MEDS ORDERED: MORPHINE SULFATE 4 MG/ML SYRINGE IV PRN (22:50)
[2020-09-23] MEDS ORDERED: NALOXONE 0.4 MG/ML 1 ML VIAL IV PRN (22:50)
[2020-09-23] MEDS ORDERED: SODIUM CHLORIDE 0.9% 1,000 ML IV SCH (23:00)
[2020-09-24] MEDS ORDERED: methylPREDNISolone SOD SUCCI 125 MG/2 ML VIAL IV SCH
[2020-09-24] MEDS ORDERED: SODIUM CHLORIDE 0.9% 500 ML 500 ML IV ONE (03:00)
[2020-09-24 03:28] VITALS: RESP 16
[2020-09-24 03:33] VITALS: BP 62/37; PULSE 99; TEMP 97.8
[2020-09-24] MEDS ORDERED: ATROPINE OPHTH SOLN 1% 5ML BTL SUBLINGUAL PRN (04:08)
[2020-09-24] MEDS ORDERED: LORazepam 2 MG/ML INJ IV PRN (04:08)
[2020-09-24] MEDS ORDERED: SCOPOLAMINE 1.5MG/72HR PATCH TRANSDERM SCH (04:15)
[2020-09-24] MEDS ORDERED: MORPHINE SULFATE (100 MG/2 ML) 100 MG in SODIUM CHLORIDE 0.9% 100 ML IV SCH (05:00)
--- NOTE | 2020-09-24 07:20 | P.HPIM ---
History of Present Illness 65-year-old female was brought in because of altered mental status and patient became less responsive. Patient is a dialysis patient and a alf resident. Patient doesn't want to continue her hemodialysis anymore because of which she missed her hemodialysis on Friday did have hemodialysis on Friday and missed again on Friday. Patient wishes to be hospice. Dr. Gar is her primary care physician whom I'm covering today. Last night Dr. Gar was called multiple times regarding this patient and the decision was made to make her hospice. Patient doesn't want to continue any more treatment. Patient is presently on morphine drip and the scopolamine with mild gurgling sounds. REVIEW OF SYSTEMS: Irrelevant at this time PHYSICAL EXAMINATION: GENERAL: The patient is comfortable arousable on morphine drip, resting, not in any acute distress. Well developed, well nourished. HEENT: Pupils are round and equally reacting to light. EOMI. No scleral icterus. No conjunctival pallor. Normocephalic, atraumatic. No pharyngeal erythema. No thyromegaly. CARDIOVASCULAR: S1 and S2 present. No murmurs, rubs, or gallops. PULMONARY: Chest is clear to auscultation, no wheezing or crackles. Mild gurgling sounds ABDOMEN: Soft, nontender, nondistended, normoactive bowel sounds. No palpable organomegaly. MUSCULOSKELETAL: No joint swelling or deformity. EXTREMITIES: No cyanosis, clubbing, or pedal edema. NEUROLOGICAL: Moving all 4 limbs arousable as mentioned above. SKIN: No rashes. Assessment and plan -Altered mental status secondary to metabolic encephalopathy -Coronary artery disease -Hypertension next and-hyperlipidemia -Type 2 diabetes mellitus -Hypothyroidism -End-stage renal disease Plan: Patient is presently hospice continue with morphine drip scopolamine patch, Ativan as needed. Past Medical History Past Medical History: Atrial Flutter, Asthma, Coronary Artery Disease (CAD), Chest Pain / Angina, Heart Failure, Dementia, Diabetes Mellitus, Dialysis, GERD/Reflux, Hearing Disorder / Deafness, Hyperlipidemia, Hypertension, Liver Disease, Myocardial Infarction (ID), Osteoarthritis (OA), Pneumonia, Renal Disease, Thyroid Disorder, Vascular Disorder Additional Past Medical History / Comment(s): Pt recently admitted to [facility] on 04/03/20 with severe metabolic encephalopathy d/t ESRD with cardiac debitlity and cardiomyopathy. 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, hepatitis A which pt states was treated, pt is wheelchair bound, IBS, PVD, tinnitis bilaterally Last Myocardial Infarction Date:: 04/02/20 History of Any Multi-Drug Resistant Organisms: MRSA, VRE Date of last positivie culture/infection: 11/11/18-VRE; 09/27/17 MRSA MDRO Source:: Urine-VRE; Right Breast-MRSA Past Surgical History: Adenoidectomy, Appendectomy, Bariatric Surgery, Cholecystectomy, Heart Catheterization, Heart Catheterization With Stent, Hysterectomy, Orthopedic Surgery, Pacemaker, Tonsillectomy Additional Past Surgical History / Comment(s): D&C, ovarian wedge resection, EGDLap band/gastric sleeve, hemodialysis fistula/surgery to reposition, L shoulder arthroscopic surgery, excisional debridement R lower extremity, bilateral cataract removals/lens implants. Past Anesthesia/Blood Transfusion Reactions: Motion Sickness, Postoperative Nausea & Vomiting (PONV) Additional Past Anesthesia/Blood Transfusion Reaction / Comment(s): blood transfusion-pt stated they gave her medication for a reaction but does'nt rememebr what the reaction was Date of Last Stent Placement:: 04/02/20 Type of Cardiac Device: Permanent Pacemaker Device Placement Date:: 04/20/18 Past Psychological History: Anxiety, Bipolar, Depression Additional Psychological History / Comment(s): Pt resides at [facility] and is wheel chair bound. She requires a 2 person transfer or requires a cuate lift Smoking Status: Unknown if ever smoked Past Alcohol Use History: None Reported Additional Past Alcohol Use History / Comment(s): She does not drive. She has a glucometer and insulin pump. She is a lifelong nonsmoker. She denies any alcohol use. No service. No international travel. BEEN RESIDING AT [facility] FOR LAST 2 YEARS Past Drug Use History: None Reported - Past Family History Mother Family Medical History: Congestive Heart Failure (CHF), Diabetes Mellitus, Hyper tension Father History Unknown: Yes Family Medical History: Diabetes Mellitus Brother(s) Family Medical History: Diabetes Mellitus, Hyperlipidemia, Renal Disease Additional Family Medical History / Comment(s): chronic kidney disease Medications and Allergies Home Medications Medication Instructions Recorded Confirmed Type Atorvastatin [Lipitor] 80 mg PO HS 12/27/16 05/29/20 History Acetaminophen Tab [Tylenol] 500 mg PO Q6H PRN 01/11/19 05/29/20 History Docusate Sodium [Dok] 100 mg PO BID 01/11/19 05/29/20 History Escitalopram [Lexapro] 20 mg PO DAILY 04/02/19 05/29/20 History Folic Acid-Vit B Complex-Vit C 1 cap PO MOWEFR@2100 04/02/19 05/29/20 History [Nephrocaps] Folic Acid-Vit B Complex-Vit C 1 cap PO SUTUTHSA@0900 04/02/19 05/29/20 History [Nephrocaps] Clopidogrel [Plavix] 75 mg PO DAILY 04/09/19 05/29/20 History Levothyroxine Sodium [Synthroid] 175 mcg PO DAILY@0600 11/05/19 05/29/20 History Sodium Polystyrene Sulfonate 15 gm PO SUTUTH 11/05/19 05/29/20 History Lidocaine-Prilocaine Cream [Emla 1 applic TOPICAL MOWEFR 11/23/19 05/29/20 History Cream 2.5%/2.5%] Furosemide [Lasix] 80 mg PO DAILY@0600 01/28/20 05/29/20 History Aspirin 81 mg PO DAILY 02/28/20 05/29/20 History Sennosides [Senna] 8.6 mg PO DAILY PRN 02/28/20 05/29/20 History carvediloL [Coreg] 3.125 mg PO BID 04/03/20 05/29/20 History Insulin Lispro [humaLOG Kwikpen] 2 unit SQ HS 04/10/20 05/29/20 History Ammonium Lactate Lotion 1 applic TOPICAL BID 04/28/20 05/29/20 History [Lac-Hydrin 12% Lotion] Melatonin 10 mg PO HS 04/28/20 05/29/20 History Nitroglycerin Sl Tabs [Nitrostat] 0.4 mg SL Q5M PRN 04/28/20 05/29/20 History Calcium Acetate [PhosLo] 667 mg PO TID-W/MEALS 05/29/20 05/29/20 History INSULIN ASPART (NovoLOG) [NovoLOG See Protocol SQ ACHS 05/29/20 05/29/20 History (formulary)] Insulin Detemir (Levemir) [Levemir] 22 unit SQ HS 05/29/20 05/29/20 History Lactulose 20 gm PO BID 05/29/20 05/29/20 History Pantoprazole [Protonix] 40 mg PO DAILY@0600 05/29/20 05/29/20 History Warfarin [Coumadin] 3 mg PO DAILY@1700 05/29/20 05/29/20 History HYDROcodone/APAP 10-325MG [[place] 1 each PO Q8H PRN #9 tab 05/31/20 Rx 10-325] LORazepam [Ativan] 1 mg PO BID PRN #6 tab 05/31/20 Rx Midodrine [ProAmatine] 5 mg PO AC-TID tab 05/31/20 Rx Allergies Allergy/AdvReac Type Severity Reaction Status Date / Time adhesive Allergy Rash/Hives Verified 05/29/20 13:10 Penicillins Allergy Rash/Hives Verified 05/29/20 13:10 Iodinated Contrast Media AdvReac KIDNEY Verified 05/29/20 13:10 [Iodinated Contrast- Oral FAILURE and IV Dye] metformin AdvReac SUGAR Verified 05/29/20 13:10 LEVEL INCREASE Physical Exam Vitals: Vital Signs Temp Pulse Pulse Resp BP BP Pulse Ox 09/24/20 03:33 97.8 F 99 16 62/37 94 L 09/24/20 03:32 60/34 09/24/20 03:12 16 54/29 09/24/20 00:49 98.5 F 61 20 89/51 98 09/24/20 00:00 102/54 09/23/20 22:50 62 18 103/75 97 09/23/20 21:06 98.3 F 60 18 104/54 94 L Intake and Output 09/23/20 09/24/20 09/24/20 22:59 06:59 14:59 Intake Total 1.666 Output Total 0 0 Balance 1.666 0 Intake: Intake, IV Titration 1.666 Amount Morphine Sulfate (100 mg/ 1.666 2 ml) 100 mg In Sodium Chloride 0.9% 100 ml @ 1 MG/HR 1.02 mls/hr IV . Q24H [facility] Rx#:[id number] Output: Urine 0 0 Uretheral ([place]) 0 Other: Voiding Method Indwelling Catheter # Voids 0 Weight 113.398 kg 113.398 kg Results CBC & Chem 7: 09/23/20 21:53 09/23/20 21:53 Labs: Abnormal Lab Results - Last 24 Hours (Table) 09/23/20 09/23/20 09/23/20 Range/Units 21:53 21:53 21:53 RBC 3.39 L (3.80-5.40) m/uL Hgb 10.2 L (11.4-16.0) gm/dL Hct 31.9 L (34.0-46.0) % RDW 17.8 H (11.5-15.5) % Neutrophils # 8.2 H (1.3-7.7) k/uL Lymphocytes # 0.5 L (1.0-4.8) k/uL PT 39.4 H (9.0-12.0) sec INR 4.1 H (<1.2) APTT 41.8 H (22.0-30.0) sec Sodium 134 L (137-145) mmol/L Chloride 93 L (98-107) mmol/L BUN 56 H (7-17) mg/dL Creatinine 5.61 H (0.52-1.04) mg/dL Glucose 112 H (74-99) mg/dL Phosphorus 5.6 H (2.5-4.5) mg/dL Magnesium 2.4 H (1.6-2.3) mg/dL Alkaline Phosphatase 237 H (38-126) U/L Creatine Kinase 26 L (30-135) U/L Troponin I (0.000-0.034) ng/mL Total Protein 6.2 L (6.3-8.2) g/dL Albumin 2.9 L (3.5-5.0) g/dL 09/23/20 09/24/20 Range/Units 21:53 00:27 RBC (3.80-5.40) m/uL Hgb (11.4-16.0) gm/dL Hct (34.0-46.0) % RDW (11.5-15.5) % Neutrophils # (1.3-7.7) k/uL Lymphocytes # (1.0-4.8) k/uL PT (9.0-12.0) sec INR (<1.2) APTT (22.0-30.0) sec Sodium (137-145) mmol/L Chloride (98-107) mmol/L BUN (7-17) mg/dL Creatinine (0.52-1.04) mg/dL Glucose (74-99) mg/dL Phosphorus (2.5-4.5) mg/dL Magnesium (1.6-2.3) mg/dL Alkaline Phosphatase (38-126) U/L Creatine Kinase (30-135) U/L Troponin I 0.087 H* 0.085 H* (0.000-0.034) ng/mL Total Protein (6.3-8.2) g/dL Albumin (3.5-5.0) g/dL
[2020-09-24] MEDS ORDERED: PANTOPRAZOLE 40 MG/10 ML VIAL IV SCH (09:00)
--- NOTE | 2020-09-24 13:40 | P.DS ---
Providers Date of admission: 09/23/20 22:50 Attending physician: Kimberli Gar Consults: 09/23/20 22:51 Consult Physician Routine Consulting Provider: Cherie Talley Consult Reason/Comments: arf Do you want consulting provider notified?: Yes Primary care physician: Kimberli Gar Hospital Course: Patient with end-stage renal disease on hemodialysis came in with altered mental status and patient doesn't want to continue hemodialysis any more. Patient missed her 2 hemodialysis sessions. As per the request of the patient and family members patient was started on comfort measures was on IV morphine drip and earlier today. Patient Condition at Discharge: Fair Plan - Discharge Summary Discharge Rx Participant: No New Discharge Prescriptions: No Action Atorvastatin [Lipitor] 80 mg PO HS Acetaminophen Tab [Tylenol] 500 mg PO Q6H PRN PRN Reason: Pain Docusate Sodium [Dok] 100 mg PO BID Folic Acid-Vit B Complex-Vit C [Nephrocaps] 1 cap PO MOWEFR@2100 Folic Acid-Vit B Complex-Vit C [Nephrocaps] 1 cap PO SUTUTHSA@0900 Escitalopram [Lexapro] 20 mg PO DAILY Clopidogrel [Plavix] 75 mg PO DAILY Levothyroxine Sodium [Synthroid] 175 mcg PO DAILY@0600 Sodium Polystyrene Sulfonate 15 gm PO SUTUTH Lidocaine-Prilocaine Cream [Emla Cream 2.5%/2.5%] 1 applic TOPICAL MOWEFR Furosemide [Lasix] 80 mg PO DAILY@0600 Aspirin 81 mg PO DAILY Sennosides [Senna] 8.6 mg PO DAILY PRN PRN Reason: Constipation carvediloL [Coreg] 3.125 mg PO BID Insulin Lispro [humaLOG Kwikpen] 2 unit SQ HS Ammonium Lactate Lotion [Lac-Hydrin 12% Lotion] 1 applic TOPICAL BID Melatonin 10 mg PO HS Nitroglycerin Sl Tabs [Nitrostat] 0.4 mg SL Q5M PRN PRN Reason: Chest Pain Calcium Acetate [PhosLo] 667 mg PO TID-W/MEALS INSULIN ASPART (NovoLOG) [NovoLOG (formulary)] See Protocol SQ ACHS Insulin Detemir (Levemir) [Levemir] 22 unit SQ HS Lactulose 20 gm PO BID Pantoprazole [Protonix] 40 mg PO DAILY@0600 Warfarin [Coumadin] 3 mg PO DAILY@1700 Midodrine [ProAmatine] 5 mg PO AC-TID tab LORazepam [Ativan] 1 mg PO BID PRN #6 tab PRN Reason: Anxiety HYDROcodone/APAP 10-325MG [Cawood 10-325] 1 each PO Q8H PRN #9 tab PRN Reason: pain Discharge Medication List Atorvastatin [Lipitor] 80 mg PO HS 12/27/16 [History] Acetaminophen Tab [Tylenol] 500 mg PO Q6H PRN 01/11/19 [History] Docusate Sodium [Dok] 100 mg PO BID 01/11/19 [History] Escitalopram [Lexapro] 20 mg PO DAILY 04/02/19 [History] Folic Acid-Vit B Complex-Vit C [Nephrocaps] 1 cap PO MOWEFR@2100 04/02/19 [History] Folic Acid-Vit B Complex-Vit C [Nephrocaps] 1 cap PO SUTUTHSA@0900 04/02/19 [History] Clopidogrel [Plavix] 75 mg PO DAILY 04/09/19 [History] Levothyroxine Sodium [Synthroid] 175 mcg PO DAILY@0600 11/05/19 [History] Sodium Polystyrene Sulfonate 15 gm PO SUTUTH 11/05/19 [History] Lidocaine-Prilocaine Cream [Emla Cream 2.5%/2.5%] 1 applic TOPICAL MOWEFR 11/23/19 [History] Furosemide [Lasix] 80 mg PO DAILY@0600 01/28/20 [History] Aspirin 81 mg PO DAILY 02/28/20 [History] Sennosides [Senna] 8.6 mg PO DAILY PRN 02/28/20 [History] carvediloL [Coreg] 3.125 mg PO BID 04/03/20 [History] Insulin Lispro [humaLOG Kwikpen] 2 unit SQ HS 04/10/20 [History] Ammonium Lactate Lotion [Lac-Hydrin 12% Lotion] 1 applic TOPICAL BID 04/28/20 [History] Melatonin 10 mg PO HS 04/28/20 [History] Nitroglycerin Sl Tabs [Nitrostat] 0.4 mg SL Q5M PRN 04/28/20 [History] Calcium Acetate [PhosLo] 667 mg PO TID-W/MEALS 05/29/20 [History] INSULIN ASPART (NovoLOG) [NovoLOG (formulary)] See Protocol SQ ACHS 05/29/20 [History] Insulin Detemir (Levemir) [Levemir] 22 unit SQ HS 05/29/20 [History] Lactulose 20 gm PO BID 05/29/20 [History] Pantoprazole [Protonix] 40 mg PO DAILY@0600 05/29/20 [History] Warfarin [Coumadin] 3 mg PO DAILY@1700 05/29/20 [History] HYDROcodone/APAP 10-325MG [Cawood 10-325] 1 each PO Q8H PRN #9 tab 05/31/20 [Rx] LORazepam [Ativan] 1 mg PO BID PRN #6 tab 05/31/20 [Rx] Midodrine [ProAmatine] 5 mg PO AC-TID tab 05/31/20 [Rx] Follow up Appointment(s)/Referral(s): Kimberli Gar MD [Primary Care Provider] - 1-2 days Discharge Disposition: - Preliminary Cause of Preliminary Cause of : End-stage renal disease
== END 2020-09-24 11:32 | disposition expired | DRG 951 ==
LOC: EC 20:39 → 3SCARD 22:50
PROVIDERS: ADMIT Internal Medicine; ATTEND Internal Medicine
DX: Z51.5 Encounter for palliative care (principal); G93.41 Metabolic encephalopathy; N18.6 End stage renal disease; I13.2 Hypertensive heart and chronic kidney disease with heart failure and with stage 5 chronic kidney disease, or end stage renal disease; F05 Delirium due to known physiological condition; I42.9 Cardiomyopathy, unspecified; N17.9 Acute kidney failure, unspecified; L97.909 Non-pressure chronic ulcer of unspecified part of unspecified lower leg with unspecified severity; I48.92 Unspecified atrial flutter; I25.10 Atherosclerotic heart disease of native coronary artery without angina pectoris; E03.9 Hypothyroidism, unspecified; E11.22 Type 2 diabetes mellitus with diabetic chronic kidney disease; I50.9 Heart failure, unspecified; E11.319 Type 2 diabetes mellitus with unspecified diabetic retinopathy without macular edema; E11.41 Type 2 diabetes mellitus with diabetic mononeuropathy; E11.51 Type 2 diabetes mellitus with diabetic peripheral angiopathy without gangrene; E78.5 Hyperlipidemia, unspecified; F03.90 Unspecified dementia, unspecified severity, without behavioral disturbance, psychotic disturbance, mood disturbance, and anxiety; F31.9 Bipolar disorder, unspecified; K58.9 Irritable bowel syndrome, unspecified; J45.909 Unspecified asthma, uncomplicated; F41.9 Anxiety disorder, unspecified; H91.90 Unspecified hearing loss, unspecified ear; I25.2 Old myocardial infarction; Z79.01 Long term (current) use of anticoagulants; Z79.02 Long term (current) use of antithrombotics/antiplatelets; Z79.4 Long term (current) use of insulin; Z79.82 Long term (current) use of aspirin; Z79.890 Hormone replacement therapy; Z90.710 Acquired absence of both cervix and uterus; Z95.0 Presence of cardiac pacemaker; Z96.1 Presence of intraocular lens; Z99.2 Dependence on renal dialysis; Z99.3 Dependence on wheelchair; Z91.15 Patient's noncompliance with renal dialysis; Z88.0 Allergy status to penicillin; Z91.041 Radiographic dye allergy status; Z86.14 Personal history of Methicillin resistant Staphylococcus aureus infection; Z79.899 Other long term (current) drug therapy
CPT/HCPCS: 36415; 80053; 82140; 82550; 83735; 84100; 84443; 84484; 85025; 85610; 85730; 93005; 96360; 99285